=== PATIENT | male | born 1970 | race Caucasian/White ===

== ENCOUNTER 2020-08-05 17:09 | Emergency (ER) | payer BC, SELFPAY ==
--- NOTE | 2020-08-05 17:05 | ECG_ITS ---
APPROVED REPORT Exam: Resting ECG HR:95 bpm ECG Measurements Heart Rate 95 AXES MO 154 P 56 QRSd 78 QRS 31 QT 334 T 47 QTc 419 <Conclusion> Normal sinus rhythm Possible Left atrial enlargement RSR' or QR pattern in V1 suggests right ventricular conduction delay Borderline ECG Electronically signed by : Jose Hickman, 08/09/2020 15:05:41
[2020-08-05 17:11] VITALS: BP 158/91; PULSE 98; RESP 17; TEMP 36.6; O2SAT 100; BMI 30.8
--- NOTE | 2020-08-05 17:15 | XR_ITS ---
PROCEDURE: XR CHEST 2V CLINICAL HISTORY: chest pain COMPARISON: No exams were available for comparison FINDINGS: The cardiomediastinal silhouette and pulmonary vascularity are within normal limits. Coronary artery stent present. There are mild atelectatic changes in the lower lobes. No acute bony abnormalities. IMPRESSION: Mild bilateral lower lobe atelectatic changes otherwise negative Dictated by: Ralph Palmer MD 08/05/2020 18:17 Ralph Palmer MD in [place] 08/05/2020 18:17
[2020-08-05 17:17] VITALS: BP 158/91; PULSE 98; RESP 24; O2SAT 98
[2020-08-05 17:33] LABS: Chloride 100 mmol/L (98-107)
[2020-08-05 17:34] LABS: Potassium 4.4 mmoL/L (3.5-5.1); Sodium 140 mmol/L (136-145)
[2020-08-05 17:35] LABS: Basophils # 0.1 K/mm3 (0-0.2); Basophils % 0.7 % (0.1-2.0); Eosinophils # 0.2 K/mm3 (0.0-0.4); Eosinophils % 1.7 % (0.1-12.0); Hematocrit 45.8 % (42.0-52.0); Hemoglobin 15.6 g/dL (14.1-18.0); Lymphocytes # 1.6 K/mm3 (0.7-4.5); Lymphocytes % 17.6 % (10-50); Mean Corpuscular HGB Conc 34.1 g/dL (31.8-35.4); Mean Corpuscular Hemoglobin 27.2 pg (27.0-31.2); Mean Corpuscular Volume 79.8 fl (80-94); Monocytes # 0.6 K/mm3 (0.1-1.0); Neutrophils # 6.6 K/mm3 (1.8-7.8); Platelet Count 284 K/mm3 (142-424); Red Blood Count 5.75 M/mm3 (4.60-6.20); Red Cell Distribution Width 13.7 % (11.5-17.5)
[2020-08-05 17:36] LABS: Alanine Aminotransferase 51 U/L (12-78); Aspartate Amino Transferase 44 U/L (17-59); Blood Urea Nitrogen 23 mg/dl (9-20); Creatinine Clearance Estimated 115 mL/min (50-200); Estimated Glomerular Filt Rate 64 ml/min (>60); GFR (African American) 78 ML/MIN (>60)
[2020-08-05 17:37] LABS: Albumin Level 4.9 g/dl (3.5-5.0); Albumin/Globulin Ratio 1.5 (1.1-1.8); Alkaline Phosphatase 119 U/L (38-126); Anion Gap 17.4 mEq/L (5-15); Bilirubin,Total 0.6 mg/dl (0.2-1.3); Calcium 10.4 mg/dl (8.4-10.2); Carbon Dioxide 27 mmol/L (22.0-30.0); Globulin 3.3 g/dL (1.3-3.2); Glucose 231 mg/dl (74-100); Total Protein,Serum 8.2 g/dl (6.3-8.2)
[2020-08-05 17:38] LABS: Lactic Acid 1.8 mmol/L (0.7-2.1)
[2020-08-05 17:50] LABS: Troponin I < 0.01 ng/ml (0.00-0.034)
[2020-08-05 18:12] VITALS: BP 127/92; PULSE 63; O2SAT 93
[2020-08-05 19:07] VITALS: BP 145/95; PULSE 91; RESP 20; O2SAT 96
[2020-08-05 19:32] LABS: Troponin I < 0.01 ng/ml (0.00-0.034)
--- NOTE | 2020-08-05 20:06 | HMH.EDCP ---
ED Disposition Clinical Impression: Upper respiratory infection Qualifiers: URI type: unspecified viral URI Qualified Code(s): J06.9 - Acute upper respiratory infection, unspecified Disposition: Home, Self-Care Condition on Discharge: Good Additional Instructions: You were seen on an emergency basis. It is very important that you follow up with your primary care provider and/or specialist as we discussed within 2 days. All labs and imaging were obtained and interpreted here to rule out life threatening emergencies, but your final results should be reviewed by your primary doctor at your follow up appointment. Please return to the emergency department if any of your symptoms worsen, or if they do not improve as we discussed. Referrals: Quyen Vincent [Primary Care Provider] - - Critical Care Critical Care Time: No Attestation: On 08/05/20, the high probability of a clinically significant, sudden or life threatening deterioration of the following system(s) required my full and direct attention, intervention and personal management. The time I documented below is in addition to time spent performing reported procedures but includes the following listed in this critical care notation. Medical Decision Making - Medical Records Medical records reviewed: Yes: I reviewed the patient's medical records. - Perico Inquiry Pt receiving controlled substance: No Vital Signs: 08/05/20 17:11 08/05/20 17:17 08/05/20 18:12 Temperature 97.9 F Temperature Source Oral Pulse Rate [Right Radial] 98 H 98 H 63 Respiratory Rate 17 24 Blood Pressure [Right Arm] 158/91 H 158/91 H 127/92 H Blood Pressure Mean [Right Arm] 113 113 103 Blood Pressure Source [Right Arm] Automatic Cuff Blood Pressure Position [Right Arm] Sitting Sitting 02 Sat by Pulse Oximetry 100 98 93 L Oxygen Delivery Method Room Air Room Air 08/05/20 19:07 Temperature Temperature Source Pulse Rate [Right Radial] 91 H Respiratory Rate 20 Blood Pressure [Right Arm] 145/95 H Blood Pressure Mean [Right Arm] 111 Blood Pressure Source [Right Arm] Automatic Cuff Blood Pressure Position [Right Arm] Sitting 02 Sat by Pulse Oximetry 96 Oxygen Delivery Method - Lab Data Lab Results 08/05/20 17:20: WBC 9.0, RBC 5.75, Hgb 15.6, Hct 45.8, MCV 79.8 L, MCH 27.2, MCHC 34.1, RDW 13.7, Plt Count 284, MPV 8.0, Neut % (Auto) 73.0, Lymph % (Auto) 17.6, Chase % (Auto) 7.0, Eos % (Auto) 1.7, Baso % (Auto) 0.7, Neut # (Auto) 6.6, Lymph # (Auto) 1.6, Chase # (Auto) 0.6, Eos # (Auto) 0.2, Baso # (Auto) 0.1 08/05/20 17:20: Sodium 140, Potassium 4.4, Chloride 100, Carbon Dioxide 27, Anion Gap 17.4 H, BUN 23 H, Creatinine 1.20, Estimated Creat Clear 115, Estimated GFR 64, Est GFR ( Amer) 78, Glucose 231 H, Calcium 10.4 H, Total Bilirubin 0.6, AST 44, ALT 51, Alkaline Phosphatase 119, Troponin I < 0.01, Total Protein 8.2, Albumin 4.9, Globulin 3.3 H, Albumin/Globulin Ratio 1.5 08/05/20 17:20: Lactate 1.8 08/05/20 19:05: Troponin I < 0.01 Result diagrams: 08/05/20 17:20 08/05/20 17:20 Orders (Tests/Meds): ED MEDICATIONS Discontinued Medications Generic Name Dose Route Start Last Admin Trade Name Shaniqua PRN Reason Stop Dose Admin Aspirin 324 mg 08/05/20 17:15 08/05/20 17:18 Aspirin 81mg Chewable Tablet PO 08/05/20 17:16 324 mg ONCE ONE Administration ORDERS Category Date Time Status Troponin I Q3H Lab 08/05/20 23:15 Ordered Blood Culture Stat Micro 08/05/20 17:20 Received Medical Decision Narrative: 49-year-old male presenting with chest pain, cough, sore throat, shortness of breath. Nontoxic, afebrile, hemodynamically stable, oxygenating well on room air. Chest x-ray negative for acute disease. EKG nonischemic without arrhythmia. Troponins are undetectable. CBC, CMP are nonactionable. D-dimer is negative. This is likely a upper respiratory infection and not cardiopulmonary chest pain. Was given symptomatic care instructсергей
[2020-08-05 20:16] VITALS: BP 139/85; PULSE 87; RESP 18; TEMP 36.6; O2SAT 98
== END 2020-08-05 20:22 | disposition home or self-care (01) ==
PROVIDERS: Emergency Provider Physician Assistant; PCP Family Medicine
DX: J06.9 Acute upper respiratory infection, unspecified (principal); Z88.0 Allergy status to penicillin
CPT/HCPCS: 71046; 80053; 83605; 84484; 85025; 87040; 93005; 99284

== ENCOUNTER 2023-02-18 14:55 | Emergency (ER) | payer OTHER, SELFPAY ==
[2023-02-18 15:15] VITALS: BP 128/77; PULSE 82; RESP 20; TEMP 36.8; O2SAT 97; BMI 30.8
[2023-02-18 15:41] LABS: UTC Strep Screen (Rapid) Positive (Negative)
--- NOTE | 2023-02-18 15:44 | EXP.UTC ---
Discharge Plan Disposition Patient Disposition: Home, Self-Care Condition: Good Prescriptions Prescriptions: New cefdinir 300 mg capsule 300 mg PO BID Qty: 20 0RF No Action sertraline 100 mg tablet 100 mg PO DAILY Label Comments: TAKE 2 TABLETS BY MOUTH EVERY DAY insulin aspart U-100 [Novolog U-100 Insulin aspart] 100 unit/mL solution See Rx Instructions .ROUTE .COMPLEX Label Comments: USE UP TO 125 UNITS DAILY VIA INSULIN PUMP DIRECTED Rx Instructions: USE UP TO 125 UNITS DAILY VIA INSULIN PUMP DIRECTED gabapentin 300 mg capsule 900 mg PO DAILY Label Comments: TAKE 3 CAPSULES BY MOUTH EVERY DAY AT BEDTIME metformin 500 mg tablet extended release 24 hr 500 mg PO BID Label Comments: TAKE 1 TABLET BY MOUTH TWICE A DAY WITH MEALS metoprolol tartrate 25 mg tablet 25 mg PO BID Label Comments: TAKE 1 TABLET BY MOUTH EVERY 12 HOURS Jardiance 10 mg tablet 10 mg PO DAILY Label Comments: TAKE 1 TABLET BY MOUTH DAILY. DOSE DECREASE Ozempic 0.25 mg or 0.5 mg(2 mg/1.5 mL) pen injector 0.25 mg SQ WEEKLY Label Comments: INJECT 0.25MG SUBCUTANEOUSLY ONCE WEEKLY FOR 4 WEEKS, THEN INCREASE TO 0.5MG WEEKLY Referrals Follow up/Referrals: Quyen Vincent [Primary Care Provider] - See instructions Activity Restrictions/Add. Instructions Additional Instructions/Restrictions: Drink plenty of fluids. Take tylenol or ibuprofen for pain or fever. Take the medications as directed. Follow up with your regular doctor. GO TO THE ER FOR ANY WORSENING SYMPTOMS Clinical Impressions Clinical Impression: Strep throat Instructions Patient Instructions: Strep Throat, DI for Strep Throat Discharge ED Provider: Olaf Alejandro [facility] General Stated complaint: congested,sore throat Mode of Arrival: Ambulatory Source of Information: Patient Limitations: No Limitations Time Seen by Provider: 02/18/23 15:41 Description of Symptoms (Recalled from Triage Doc. by RN): sore throat, congestion HEENT Symptoms (Recalled from RN notes): Yes Resp Symptoms (Recalled from RN notes): No Skin Symptoms (Recalled from RN notes): No MS Symptoms (Recalled from RN notes): No Functional Status (Recalled from RN notes): n/a History of Present Illness Provider Complaint: He c/o sore throat for the past 2 days. He has been exposed to strep throat by his son currently having it. Related Data Home Medications Medication Instructions Recorded Confirmed empagliflozin 10 mg tablet 10 mg PO DAILY . 02/18/23 02/18/23 (Jardiance) gabapentin 300 mg capsule 900 mg PO DAILY . 02/18/23 02/18/23 insulin aspart U-100 100 unit/mL See Rx Instructions .Route 02/18/23 02/18/23 subcutaneous solution (Novolog .COMPLEX . U-100 Insulin aspart) metformin 500 mg tablet,extended 500 mg PO BID . 02/18/23 02/18/23 release 24 hr metoprolol tartrate 25 mg tablet 25 mg PO BID . 02/18/23 02/18/23 semaglutide 0.25 mg or 0.5 mg (2 0.25 mg SQ WEEKLY . 02/18/23 02/18/23 mg/1.5 mL) subcutaneous pen injector (Ozempic) sertraline 100 mg tablet 100 mg PO DAILY , 02/18/23 02/18/23 Previous Rx's Medication Instructions Recorded cefdinir 300 mg capsule 300 mg PO BID #20 caps 02/18/23 Allergies Allergy/AdvReac Type Severity Reaction Status Date / Time From Penicillin V Potassium Allergy Unknown Uncoded 02/18/23 15:22 Penicillin Allergy Unknown Uncoded 02/18/23 15:22 Worker's Comp Is this a Worker's Comp case?: No [facility] Disclaimer: The information contained in this section may have been updated after the patient was seen, as this information can be updated by other users. Social History Smoking Status: Never smoker alcohol intake: never current occupational status: unemployed Travel in the last 8 weeks: None ROS Obtained: Yes All systems reviewed & no additional complaint
[2023-02-18 15:57] VITALS: BP 128/77; PULSE 82; RESP 20; TEMP 36.8; O2SAT 97
== END 2023-02-18 15:56 | disposition home or self-care (01) ==
PROVIDERS: Emergency Provider Nurse Practitioner Family; PCP Family Medicine
DX: J02.0 Streptococcal pharyngitis (principal); R50.9 Fever, unspecified; R09.81 Nasal congestion; E11.9 Type 2 diabetes mellitus without complications
CPT/HCPCS: 87880; 99212; 99214; G0463

== ENCOUNTER → 2023-06-19 07:06 | Outpatient (CLI) | payer OTHER, BC, SELFPAY ==
--- NOTE | 2023-06-19 | CA_ITS ---
APPROVED REPORT Exam: Pharmacologic Technologist: Marlyn Alonzo, Ht: 6 ft 2 in Wt: 231 lbs BSA: 2.31 m2 HR: 63 bpm BP: 130/80 mmHg Rhythm: SR Medical History Medical History: HTN, Hyperlipidemia, Diabetes, Smoking Medications: Aspirin,,,,, Gabapentin,,,,, BisOPROLOL Fumarate,,,,, Sertraline,,,,, EMpagliflozin,,,,, SeMaglutide,,,,, INSULIN ASPART,,,,, MetoFORMIN ER,,,,, Allergies: PENICILLIN Cardiac Risk Factors: HTN, Hyperlipidemia, Diabetes , FHX of CAD, Smoking Stress Test Details Test: LEXISCAN HR Resting HR: 63 bpm Max Heart Rate (APMHR): 168 bpm Max HR Achieved: 82 bpm Target HR (85% APMHR): 143 bpm % of APMHR: 49 Recovery HR: 77 bpm BP Resting BP: 130/88 mmHg Max BP: 135/81 mmHg Recovery BP: 135.0/81.0 mmHg ECG Resting ECG: NSR, Non-specific T-wave changes in inferior leads Stress ECG: No change Arrhythmia: None Recovery ECG: No change Recovery Arrhythmia: None Clinical Exercise duration: 04:00 min Highest Stage Achieved: Exercise capacity: n/a METs Stress ECG Conclusion PT HAD A HEADACHE NO CP NO SIGNIFICANT ST CHANGES CONCLUSION NON-DIAGNOSTIC ECG STRESS TEST DUE TO BASELINE ABNORMALITIES MYOVIEW IMAGES ARE REPORTED SEPARATELY Test Summary REST 02:03 . . 63 . 130/ 88 . . Stage 1 . . . . . . . Myoview Injected Stage 1 01:00 . . 73 . . . . Stage 2 01:00 . . 81 . 122/ 74 . . Stage 3 01:00 . . 80 . 123/ 74 . . Stage 4 01:00 . . 79 . 119/ 79 . Stop exercise at 04:00 RECOVERY 01:00 . . 79 . 123/ 78 . . RECOVERY 01:57 . . 78 . 135/ 81 . . Electronically signed by : Tanika Quintanilla, 06/19/2023 11:53:33
--- NOTE | 2023-06-19 07:06 | NM_ITS ---
APPROVED REPORT Exam: Nuclear Stress Test Indication: chest pain..soa..fatigue Patient Location: Outpatient Stress Tech: Marlyn Alonzo NM Tech:Melissa DanielsonDESIRAE RT(R)(N) Ht: 6 ft 2 in Wt: 230 lbs HR: 63 bpm BP: 130/88 mmHg BSA: 2.31 m2 TID: 1.20 BMI: 29.5 History: chest pain..soa..fatigue Procedure: Patient received 0.4 mg of intravenous Lexiscan, resting heart rate 63 bpm, resting blood pressure 130/88 mmHg, with Lexiscan maximum heart rate achieved was 82 bpm which is 85 % of the maximum predicted heart rate and blood pressure was 135/81 mmHg. With Lexiscan, patient denied any complaint of chest pain. Cardiac Stress and Resting SPECT Images: Cardiac Stress and Resting SPECT images were obtained using technetium 99m Myoview 30.7 mCi stress and 10.40 mCi at rest. Resting and stress imaging in both supine and prone positions demonstrate a medium-sized, mild, fixed perfusion defect in the mid to distal anterior LV wall. There is borderline increase in transient ischemic dilatation ratio (TID 1.20), suggestive of possible balanced ischemia or multivessel disease. Gated imaging demonstrates a normal global and regional LV systolic function. LVEF is calculated at 55%. Conclusion: Medium-sized, mild, fixed perfusion defect in the mid to distal anterior LV wall. No evidence of reversible ischemia. Borderline increase in transient ischemic dilatation ratio (TID 1.20), suggestive of possible balanced ischemia or multivessel disease. Gated imaging demonstrates a normal global and regional LV systolic function. LVEF is calculated at 55%. Electronically signed by : Tanika Quintanilla, 06/19/2023 22:17:41
== END ==
LOC: RAD 07:06
PROVIDERS: PCP Family Medicine; Visit Provider Nurse Practitioner Family
DX: R06.00 Dyspnea, unspecified (principal); R07.89 Other chest pain; R42 Dizziness and giddiness; I25.10 Atherosclerotic heart disease of native coronary artery without angina pectoris; I10 Essential (primary) hypertension; E78.5 Hyperlipidemia, unspecified
CPT/HCPCS: 78452; 93017; A9502; J2785

== ENCOUNTER 2023-07-07 07:30 | Day surgery (SDC) | payer OTHER, SELFPAY ==
[2023-07-07] VITALS (13 sets, daily range): BP systolic 114–165; BP diastolic 70–102; PULSE 67–73; RESP 16–106; TEMP 36.9; O2SAT 90–99; BMI 29.9
--- NOTE | 2023-07-07 | IR_ITS ---
APPROVED REPORT Patient Location: Outpatient [facility] Coordinator: DESIRAE Garcia RT (R) PROCEDURES Left heart catheterization Left ventriculogram Selective coronary angiogram Intravascular ultrasound of the proximal LAD Intravascular lithotripsy to the proximal LAD Drug-eluting stent deployment to the proximal LAD INDICATION Anterior ischemia on abnormal Myoview, Coronary artery disease, MLA 3.9 mm??? in the proximal LAD, Proximal calcific LAD disease Informed consent was obtained prior to the procedure. COMPLICATIONS NONE Estimated Blood Loss: LESS THAN 10 ML TECHNIQUE One percent lidocaine used to anesthetize the right anterior aspect of the wrist. The right radial artery was accessed via the Seldinger technique. A 6 Georgian sheath was placed in the right radial artery. 2.5 mg of Verapamil, 800 mcg of nitroglycerin, 1mg Lidocaine and 5000 U Heparin were given through the arterial sheath. The papa catheter was also used to perform selective coronary angiography. At the end the diagnostic angiogram therapeutic heparin was administered giving a therapeutic ACT and the guide catheter was left in the left main artery followed by Choice PT extra-support wire. Intravascular ultrasound probe was advanced which demonstrated an undersized proximal LAD stent with an MLA of 3.9 mm???. At this point a 3.5 x 12 mm shockwave balloon was deployed at 4, 6, 8 booker for a total of 80 pulsations. Following this a 3.5 x 22 mm Josemanuel frontier stent was deployed at 18 booker reducing the calcified severe stenosis to 0%. MICHEL-3 flow was present before and after the procedure. There was loss of a small first diagonal artery. Intravascular ultrasound probe was then readvanced which demonstrated excellent stent apposition and stent expansion with excellent transition into the previously placed stent. After achieving excellent angiographic results the apparatus was removed the sheath was removed and hemostasis was achieved using TR banding patient was transferred to the postop putting in stable ANGIOGRAPHIC RESULTS The left main artery Normal The left anterior descending artery Has a stent in the proximal segment which is patent but slightly hazy most notably in the midportion. The circumflex artery Is a non-dominant vessel and has mid vessel 30% stenosis The right coronary artery Is a dominant vessel and has proximal and mid vessel 30% stenosis with distal 30 to 40% stenoses The DUFF ventriculogram reveals Not performed The left ventricular end-diastolic pressure Not measured IMPRESSION Severe calcific proximal LAD disease as described above Successful intravascular lithotripsy reducing the stenosis and allowing drug-eluting stent deployment which significantly improved inflow and proximal LAD MLA reducing the stenosis to 0% Loss of a small first diagonal artery which is likely clinically insignificant Mild to moderate disease in a proximal to mid nondominant yet still large circumflex artery Mild to moderate disease in the mid to distal right coronary as described above PLAN 1. Dual antiplatelet therapy 2. LDL less than 55 to be achieved with high intensity statin 3. Avoidance of tobacco products 4. Risk factor modification 5. Cardiac rehabilitation Electronically signed by : Cesario Ortega MD 07/07/2023 11:15:52
[2023-07-07 08:26] LABS: Basophils # 0.1 K/mm3 (0-0.2); Basophils % 0.7 % (0.1-2.0); Eosinophils # 0.2 K/mm3 (0.0-0.4); Eosinophils % 2.7 % (0.1-12.0); Hematocrit 51.4 % (42.0-52.0); Hemoglobin 16.4 g/dL (14.1-18.0); Lymphocytes # 1.5 K/mm3 (0.7-4.5); Lymphocytes % 16.7 % (10-50); Mean Corpuscular HGB Conc 31.8 g/dL (31.8-35.4); Mean Corpuscular Hemoglobin 27.3 pg (27.0-31.2); Mean Corpuscular Volume 85.9 fl (80-94); Mean Platelet Volume 7.9 fl (7.4-10.4); Monocytes # 0.5 K/mm3 (0.1-1.0); Monocytes % 5.2 % (1.7-9.3); Neutrophils # 6.5 K/mm3 (1.8-7.8); Neutrophils % 74.7 % (37.0-80.0); Platelet Count 213 K/mm3 (142-424); Red Blood Count 5.98 M/mm3 (4.60-6.20); White Blood Count 8.7 K/mm3 (4.8-10.8)
[2023-07-07 08:36] LABS: Chloride 98 mmol/L (98-107); Potassium 4.3 mmoL/L (3.5-5.1); Sodium 140 mmol/L (136-145)
[2023-07-07 08:39] LABS: Blood Urea Nitrogen 25 mg/dl (9-20); Creatinine Clearance Estimated 129 mL/min (50-200); Estimated Glomerular Filt Rate 78 ml/min (>60); GFR (African American) 95 ML/MIN (>60)
[2023-07-07 08:40] LABS: Anion Gap 15.3 mEq/L (5-15); Calcium 9.8 mg/dl (8.4-10.2); Carbon Dioxide 31 mmol/L (22.0-30.0); Glucose 121 mg/dl (74-100)
[2023-07-07 13:32] LABS: CATHL Activated Clotting Time > 400 SEC (74-125)
--- NOTE | 2023-07-07 14:17 | HMH.PHACL ---
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 -Jose Gonzalez, PharmD
== END 2023-07-07 15:01 | disposition home or self-care (01) ==
PROVIDERS: PCP Family Medicine; Visit Provider Internal Medicine
DX: R94.39 Abnormal result of other cardiovascular function study (principal); I77.1 Stricture of artery; I25.118 Atherosclerotic heart disease of native coronary artery with other forms of angina pectoris; I10 Essential (primary) hypertension; R42 Dizziness and giddiness; E78.5 Hyperlipidemia, unspecified; E11.9 Type 2 diabetes mellitus without complications; Z79.4 Long term (current) use of insulin; Z79.899 Other long term (current) drug therapy
CPT/HCPCS: 80048; 85025; 85347; 92928; 92978; 93458; 93978; 99152; 99153; C1725; C1761; C1769; C1876; C9600; J1644; Q9967

== ENCOUNTER 2023-08-28 04:32 | Observation (INO) | payer OTHER, SELFPAY ==
[2023-08-28] VITALS (13 sets, daily range): BP systolic 64–126; BP diastolic 44–74; PULSE 69–82; RESP 12–18; TEMP 36.6–37.2; O2SAT 93–96; BMI 29.5; BMI 28.2
--- NOTE | 2023-08-28 04:47 | ECG_ITS ---
APPROVED REPORT Exam: Resting ECG HR:77 bpm ECG Measurements Heart Rate 77 AXES KS 169 P 53 QRSd 91 QRS -22 QT 395 T 59 QTc 426 Conclusion SINUS RHYTHM INDETERMINATE AXIS BORDERLINE ECG UNCONFIRMED REPORT Electronically signed by : Jose Hickman MD 08/28/2023 17:08:40
--- NOTE | 2023-08-28 04:50 | PC.NURSE ---
pt complains of positional dizziness, reports being to weak to stand.
[2023-08-28 04:53] LABS: POC Glucose,Bedside 92 (70-110)
--- NOTE | 2023-08-28 05:03 | CT_ITS ---
PROCEDURE INFORMATION: Exam: CTA Head With Contrast, Arteriography Exam date and time: 08/28/2023 6:00 AM Age: 52 years old Clinical indication: Injury or trauma; Blunt trauma and concussion; Without loss of consciousness; Patient HX: Multiple syncopal falls, headaches, PT on thinners; Additional info: Multiple syncopal falls, headache, thinners TECHNIQUE: Imaging protocol: Computed tomographic angiography of the head with contrast. Exam focused on the arteries. 3D rendering (Not supervised by radiologist): MIP and/or 3D reconstructed images were created by the technologist. Radiation optimization: All CT scans at this facility use at least one of these dose optimization techniques: automated exposure control; mA and/or kV adjustment per patient size (includes targeted exams where dose is matched to clinical indication); or iterative reconstruction. Contrast material: ISOVUE 370; Contrast volume: 100 ml; Contrast route: INTRAVENOUS (IV); REPORTING DATA: Count of CT and Cardiac NM exams in prior 12 months: This patient has received 0 known CTs and 0 known cardiac nuclear medicine studies in the 12 months prior to the current study. COMPARISON: CT HEAD/BRAIN WO CON 08/28/2023 5:48 AM FINDINGS: ANTERIOR CIRCULATION: Right internal carotid artery: Intracranial segment is patent with no significant stenosis. No aneurysm. Right middle cerebral artery: No occlusion or significant stenosis. No aneurysm. Right anterior cerebral artery: No occlusion or significant stenosis. No aneurysm. Left internal carotid artery: Intracranial segment is patent with no significant stenosis. No aneurysm. Left middle cerebral artery: No occlusion or significant stenosis. No aneurysm. Left anterior cerebral artery: No occlusion or significant stenosis. No aneurysm. POSTERIOR CIRCULATION: Right vertebral artery: No occlusion or significant stenosis. No aneurysm. Left vertebral artery: No occlusion or significant stenosis. No aneurysm. Basilar artery: No occlusion or significant stenosis. No aneurysm. Right posterior cerebral artery: No occlusion or significant stenosis. No aneurysm. Left posterior cerebral artery: No occlusion or significant stenosis. No aneurysm. Brain: No definite mass, mass effect, or midline shift. Cerebral ventricles: No ventriculomegaly. Bones/joints: Unremarkable. No acute fracture. Soft tissues: Unremarkable. IMPRESSION: No large vessel stenosis or occlusion.
--- NOTE | 2023-08-28 05:03 | CT_ITS ---
PROCEDURE INFORMATION: Exam: CTA Neck With Contrast Exam date and time: 08/28/2023 6:00 AM Age: 52 years old Clinical indication: Injury or trauma; Blunt trauma and sprain or strain; Head and neck; Patient HX: Multiple syncopal falls, PT on thinners; Additional info: Multiple syncopal falls, neck pain TECHNIQUE: Imaging protocol: Computed tomographic angiography of the neck with contrast. 3D rendering (Not supervised by radiologist): MIP and/or 3D reconstructed images were created by the technologist. Radiation optimization: All CT scans at this facility use at least one of these dose optimization techniques: automated exposure control; mA and/or kV adjustment per patient size (includes targeted exams where dose is matched to clinical indication); or iterative reconstruction. Contrast material: ISOVUE 370; Contrast volume: 100 ml; Contrast route: INTRAVENOUS (IV); REPORTING DATA: Count of CT and Cardiac NM exams in prior 12 months: This patient has received 0 known CTs and 0 known cardiac nuclear medicine studies in the 12 months prior to the current study. COMPARISON: CT CERVICAL SPINE WO CON 08/28/2023 5:50 AM FINDINGS: There is mild plaque noted at the carotid bulbs causing less than 40% stenosis. Right common carotid artery: No stenosis. No dissection or occlusion. Right internal carotid artery: No stenosis of the extracranial segment. No dissection or occlusion. Right external carotid artery: No occlusion or stenosis of the origin. Left common carotid artery: No stenosis. No dissection or occlusion. Left internal carotid artery: No stenosis of the extracranial segment. No dissection or occlusion. Left external carotid artery: No occlusion or stenosis of the origin. Right vertebral artery: No stenosis. No dissection or occlusion. Left vertebral artery: No stenosis. No dissection or occlusion. Soft tissues: Normal. No significant soft tissue swelling. Bones/joints: No acute fracture. IMPRESSION: Mild atheromatous plaque at the carotid bulbs. Less than 40% stenosis. REFERENCES: NASCET CRITERIA. The degree of stenosis in the cervical segment of the internal carotid artery is based on NASCET criteria. Normal is no stenosis. Mild is less than 50% stenosis. Moderate is 50-69% stenosis. Severe is 70% to 99% stenosis. Total occlusion is no detectable patent lumen.
--- NOTE | 2023-08-28 05:04 | CT_ITS ---
PROCEDURE INFORMATION: Exam: CTA Abdomen and Pelvis With Contrast Exam date and time: 08/28/2023 6:04 AM Age: 52 years old Clinical indication: Injury or trauma; Sprain or strain; Patient HX: Fall, flank hematoma, PT on thinners; Additional info: Fall, blood thinner, flank hematoma TECHNIQUE: Imaging protocol: Computed tomographic angiography of the abdomen and pelvis with contrast. Exam focused on the arteries. 3D rendering (Not supervised by radiologist): MIP and/or 3D reconstructed images were created by the technologist. Radiation optimization: All CT scans at this facility use at least one of these dose optimization techniques: automated exposure control; mA and/or kV adjustment per patient size (includes targeted exams where dose is matched to clinical indication); or iterative reconstruction. Contrast material: ISOVUE 370; Contrast volume: 100 ml; Contrast route: INTRAVENOUS (IV); REPORTING DATA: Count of CT and Cardiac NM exams in prior 12 months: This patient has received 0 known CTs and 0 known cardiac nuclear medicine studies in the 12 months prior to the current study. COMPARISON: CT LUMBAR SPINE WO CON 08/28/2023 5:57 AM FINDINGS: Aorta: No aortic aneurysm. No aortic dissection. Celiac trunk and mesenteric arteries: No occlusion or significant stenosis. Renal arteries: No occlusion or significant stenosis. Right iliac arteries: No occlusion or significant stenosis. Left iliac arteries: No occlusion or significant stenosis. Liver: No mass. Gallbladder and bile ducts: Surgical clips are noted in the gallbladder fossa compatible with a prior cholecystectomy. Pancreas: Unremarkable. No mass. No ductal dilation. Spleen: The spleen is enlarged, measuring 13.8 x 4.5 x 15.0 cm. Adrenal glands: Unremarkable. No mass. Kidneys and ureters: The kidneys enhance symmetrically and there is no hydronephrosis. Stomach and bowel: Colonic diverticulosis is noted. Appendix: No evidence of appendicitis. Intraperitoneal space: Unremarkable. No free air. No significant fluid collection. Lymph nodes: Unremarkable. No enlarged lymph nodes. Urinary bladder: Unremarkable. No mass. Reproductive: Unremarkable as visualized. Bones/joints: Degenerative changes are noted in the bones. Soft tissues: There is infiltration of the subcutaneous tissues and fat in the posterior left lower chest/upper abdomen. IMPRESSION: No evidence for aortic aneurysm or dissection. No evidence for active arterial extravasation. Infiltration of the soft tissue in the left lower back. Colonic diverticulosis. Splenomegaly.
--- NOTE | 2023-08-28 05:04 | CT_ITS ---
PROCEDURE INFORMATION: Exam: CTA Chest With Contrast Exam date and time: 08/28/2023 6:04 AM Age: 52 years old Clinical indication: Injury or trauma; Blunt trauma (contusions or hematomas); Patient HX: Fall, PT on thinners, flank hematoma, left sided chest pain; Additional info: Fall on thinner, flank hematoma, left chest pain TECHNIQUE: Imaging protocol: Computed tomographic angiography of the chest with contrast. Exam focused on the arteries. 3D rendering (Not supervised by radiologist): MIP and/or 3D reconstructed images were created by the technologist. Radiation optimization: All CT scans at this facility use at least one of these dose optimization techniques: automated exposure control; mA and/or kV adjustment per patient size (includes targeted exams where dose is matched to clinical indication); or iterative reconstruction. Contrast material: ISOVUE 370; Contrast volume: 100 ml; Contrast route: INTRAVENOUS (IV); REPORTING DATA: Count of CT and Cardiac NM exams in prior 12 months: This patient has received 0 known CTs and 0 known cardiac nuclear medicine studies in the 12 months prior to the current study. COMPARISON: CR XR CHEST 2V 08/05/2020 5:44 PM FINDINGS: Pulmonary arteries: There is no central or lobar filling defect identified in the pulmonary arteries. Segmental and subsegmental branches are suboptimally assessed. Aorta: Unremarkable. No aortic aneurysm. No aortic dissection. Lungs: Streaky atelectasis is noted in the lower lobes. A 4 mm calcified pleural-based nodule is noted in the anterior aspect of the superior segment of the left lower lobe along the major fissure. Pleural spaces: Unremarkable. No pneumothorax. No pleural effusion. Heart: Unremarkable. No cardiomegaly. No pericardial effusion. Coronary arteries: Coronary artery calcification is present. Lymph nodes: Calcified left hilar lymphadenopathy is noted. . No enlarged lymph nodes. Bones/joints: Unremarkable. No acute fracture. Soft tissues: Unremarkable. Other findings: The study is somewhat limited by motion artifact. IMPRESSION: Motion degraded study. No central pulmonary embolism. No evidence for aortic dissection or aneurysm. Granulomatous disease in the chest.
--- NOTE | 2023-08-28 05:05 | CT_ITS ---
PROCEDURE INFORMATION: Exam: CT Head Without Contrast Exam date and time: 08/28/2023 5:48 AM Age: 52 years old Clinical indication: Injury or trauma; Blunt trauma (contusions or hematomas) and concussion/head injury; Without loss of consciousness; Patient HX: Multiple syncopal falls, headaches, PT on thinners; Additional info: Multiple syncopal falls, headache, thinners TECHNIQUE: Imaging protocol: Computed tomography of the head without contrast. Radiation optimization: All CT scans at this facility use at least one of these dose optimization techniques: automated exposure control; mA and/or kV adjustment per patient size (includes targeted exams where dose is matched to clinical indication); or iterative reconstruction. REPORTING DATA: Count of CT and Cardiac NM exams in prior 12 months: This patient has received 0 known CTs and 0 known cardiac nuclear medicine studies in the 12 months prior to the current study. COMPARISON: No relevant prior studies available. FINDINGS: Brain: No acute post-traumatic brain injury. Symmetric caliber of the cortical sulci. No acute cortical infarct, mass effect, or intracranial hemorrhage. Cerebral ventricles: Normal configuration of the ventricles. Paranasal sinuses: No sinus fluid. Low-grade ethmoid sinus mucoperiosteal disease. Mastoid air cells: No mastoid effusion. Bones/joints: No acute calvarial injury. Soft tissues: No significant scalp hematoma. IMPRESSION: No acute post-traumatic brain injury.
--- NOTE | 2023-08-28 05:05 | CT_ITS ---
PROCEDURE INFORMATION: Exam: CT Lumbar Spine Without Contrast Exam date and time: 08/28/2023 5:57 AM Age: 52 years old Clinical indication: Injury or trauma; Sprain or strain, lumbar ligaments; Patient HX: Fall, pain TECHNIQUE: Imaging protocol: Computed tomography of the lumbar spine without contrast. Radiation optimization: All CT scans at this facility use at least one of these dose optimization techniques: automated exposure control; mA and/or kV adjustment per patient size (includes targeted exams where dose is matched to clinical indication); or iterative reconstruction. REPORTING DATA: Count of CT and Cardiac NM exams in prior 12 months: This patient has received 0 known CTs and 0 known cardiac nuclear medicine studies in the 12 months prior to the current study. COMPARISON: CT THORACIC SPINE WO CON 08/28/2023 5:54 AM FINDINGS: Bones/joints: There is an 11 degree levoconvex curvature of the lumbar spine centered at L3. Vertebral body heights and mineralization are within normal limits. There is lumbar spondylosis noted worse at L4-L5 with disc bulging, ligamentous thickening and facet arthropathy. At L1-L2 there is disc bulging and facet arthropathy but no significant canal or foraminal narrowing. At L2-L3 there is disc osteophyte with facet arthropathy and ligamentous thickening. There is mild canal and foraminal narrowing. At L3-L4 there is a broad-based disc bulge ligament thickening and facet arthropathy causing mild canal and foraminal narrowing. At L4-L5 there is broad-based disc bulge with ligamentous thickening and facet arthropathy causing moderate to severe canal and foraminal narrowing. At L5-S1 there is broad-based disc bulge with facet arthropathy. There is no impingement upon the tapering thecal sac. There is moderate neural foraminal narrowing. Soft tissues: Unremarkable. IMPRESSION: Lumbar spondylosis and levoscoliosis as described.
--- NOTE | 2023-08-28 05:05 | CT_ITS ---
PROCEDURE INFORMATION: Exam: CT Cervical Spine Without Contrast Exam date and time: 08/28/2023 5:50 AM Age: 52 years old Clinical indication: Injury or trauma; Sprain or strain, cervical ligaments; Patient HX: Fall, neck pain TECHNIQUE: Imaging protocol: Computed tomography of the cervical spine without contrast. Radiation optimization: All CT scans at this facility use at least one of these dose optimization techniques: automated exposure control; mA and/or kV adjustment per patient size (includes targeted exams where dose is matched to clinical indication); or iterative reconstruction. REPORTING DATA: Count of CT and Cardiac NM exams in prior 12 months: This patient has received 0 known CTs and 0 known cardiac nuclear medicine studies in the 12 months prior to the current study. COMPARISON: None FINDINGS: Bones/joints: No acute bony injury in the cervical spine. T1-T2 interspinous widening. Degenerative change and disc bulging. Lungs: Mild apical interstitial prominence and airspace disease. Soft tissues: Ligamentous and synovial calcification. IMPRESSION: 1. No acute bony injury in the cervical spine. 2. T1-T2 interspinous widening.
--- NOTE | 2023-08-28 05:05 | CT_ITS ---
PROCEDURE INFORMATION: Exam: CT Thoracic Spine Without Contrast Exam date and time: 08/28/2023 5:54 AM Age: 52 years old Clinical indication: Pain in thoracic spine; Patient HX: Fall, pain TECHNIQUE: Imaging protocol: Computed tomography of the thoracic spine without contrast. Radiation optimization: All CT scans at this facility use at least one of these dose optimization techniques: automated exposure control; mA and/or kV adjustment per patient size (includes targeted exams where dose is matched to clinical indication); or iterative reconstruction. REPORTING DATA: Count of CT and Cardiac NM exams in prior 12 months: This patient has received 0 known CTs and 0 known cardiac nuclear medicine studies in the 12 months prior to the current study. COMPARISON: CT CERVICAL SPINE WO CON 08/28/2023 5:50 AM FINDINGS: Bones/joints: No acute fracture. Normal alignment. No significant disc bulge or herniation. No severe spinal canal stenosis. No significant neural foraminal narrowing. Soft tissues: Unremarkable. IMPRESSION: Unremarkable CT Spine.
--- NOTE | 2023-08-28 05:08 | XR_ITS ---
PROCEDURE INFORMATION: Exam: XR Left Hip Exam date and time: 08/28/2023 6:24 AM Age: 52 years old Clinical indication: Injury or trauma; Sprain or strain; Patient HX: Fall, left hip pain; Additional info: Fall, hip pain TECHNIQUE: Imaging protocol: Radiologic exam of the left hip. Views: 2 or 3 views hip with pelvis when performed. COMPARISON: CT ANGIO ABDOMEN PELVIS 08/28/2023 6:04 AM FINDINGS: Bones/joints: Unremarkable. No acute fracture. Soft tissues: Unremarkable. IMPRESSION: No acute findings.
[2023-08-28 05:20] LABS: Chloride 96 mmol/L (98-107); Sodium 136 mmol/L (136-145)
[2023-08-28 05:22] LABS: Basophils % 0.8 % (0.1-2.0); Eosinophils % 0.5 % (0.1-12.0); Hematocrit 49.7 % (42.0-52.0); Hemoglobin 15.8 g/dL (14.1-18.0); Lymphocytes # 0.9 K/mm3 (0.7-4.5); Lymphocytes % 18.2 % (10-50); Mean Corpuscular HGB Conc 31.8 g/dL (31.8-35.4); Mean Corpuscular Hemoglobin 27.1 pg (27.0-31.2); Mean Corpuscular Volume 85.3 fl (80-94); Monocytes # 0.5 K/mm3 (0.1-1.0); Monocytes % 10.9 % (1.7-9.3); Neutrophils # 3.3 K/mm3 (1.8-7.8); Neutrophils % 69.6 % (37.0-80.0); Platelet Count 127 K/mm3 (142-424); Red Blood Count 5.82 M/mm3 (4.60-6.20); Red Cell Distribution Width 14.5 % (11.5-17.5); White Blood Count 4.8 K/mm3 (4.8-10.8)
[2023-08-28 05:23] LABS: Alanine Aminotransferase 58 U/L (12-78); Albumin/Globulin Ratio 1.5 (1.1-1.8); Alkaline Phosphatase 94 U/L (38-126); Aspartate Amino Transferase 85 U/L (17-59); Bilirubin,Total 0.3 mg/dl (0.2-1.3); Blood Urea Nitrogen 53 mg/dl (9-20); Calcium 8.4 mg/dl (8.4-10.2); Carbon Dioxide 30 mmol/L (22.0-30.0); Creatine Kinase 162 U/L (55-170); Creatinine Clearance Estimated 51 mL/min (50-200); Estimated Glomerular Filt Rate 27 ml/min (>60); GFR (African American) 33 ML/MIN (>60); Globulin 2.7 g/dL (1.3-3.2); Glucose 109 mg/dl (74-100); Total Protein,Serum 6.7 g/dl (6.3-8.2)
[2023-08-28 05:32] LABS: Magnesium 1.6 mg/dl (1.6-2.3)
[2023-08-28 05:36] LABS: Troponin I 0.03 ng/ml (0.00-0.034)
[2023-08-28 05:40] LABS: T4 (Thyroxine) 7.6 ug/dl (5.53-11.0)
--- NOTE | 2023-08-28 06:25 | PC.NURSE ---
speaking with hospitalist requesting admission.
--- NOTE | 2023-08-28 06:26 | HMH.EDGENADL ---
Discharge Plan Disposition Patient Disposition: Admitted Condition: Fair Chief Complaint: Weakness Prescriptions Prescriptions: No Action atorvastatin 40 mg tablet 40 mg PO HS losartan 25 mg tablet 25 mg PO DAILY sertraline 100 mg tablet 100 mg PO DAILY Patient Comments: TAKE 2 TABLETS BY MOUTH EVERY DAY insulin aspart U-100 [Novolog U-100 Insulin aspart] 100 unit/mL solution See Rx Instructions .ROUTE .COMPLEX Patient Comments: USE UP TO 125 UNITS DAILY VIA INSULIN PUMP DIRECTED Rx Instructions: USE UP TO 125 UNITS DAILY VIA INSULIN PUMP DIRECTED gabapentin 300 mg capsule 900 mg PO DAILY Patient Comments: TAKE 3 CAPSULES BY MOUTH EVERY DAY AT BEDTIME metformin 500 mg tablet extended release 24 hr 500 mg PO BID Hold Instructions: Resume on 07/10/23. Patient Comments: TAKE 1 TABLET BY MOUTH TWICE A DAY WITH MEALS Jardiance 10 mg tablet 10 mg PO DAILY Patient Comments: TAKE 1 TABLET BY MOUTH DAILY. DOSE DECREASE Ozempic 0.25 mg or 0.5 mg(2 mg/1.5 mL) pen injector 0.25 mg SQ WEEKLY Patient Comments: INJECT 0.25MG SUBCUTANEOUSLY ONCE WEEKLY FOR 4 WEEKS, THEN INCREASE TO 0.5MG WEEKLY aspirin [Adult Aspirin Regimen] 81 mg tablet,delayed release (DR/EC) 81 mg PO DAILY Brilinta 90 mg Tablet 90 mg PO BID Clinical Impressions Clinical Impression: [place] (acute kidney injury), Syncope and collapse, Thrombocytopenia, Generalized muscle weakness, Acute hypotension Discharge ED Provider: Henrry Cannon Adult HPI General Chief complaint: Weakness Stated complaint: Weakness Time Seen by Provider: 08/28/23 04:40 Mode of Arrival: EMS Source of Information: Patient Limitations: No Limitations Description of Symptoms (Recalled from ER Triage Doc. by RN): pt states tested positive for covid on at home. tonight pt became weak tonight and had a syncope episode on the way to the bathroom. History of Present Illness HPI narrative: 52-year-old male history of type 2 diabetes with external insulin pump, coronary artery disease with multiple stents, on aspirin and Brilinta, tested positive for COVID at home a few days ago, presents with hypotension and multiple falls. Patient reports that he has had intermittent severe headaches at home over the last couple of days. He reports he had decreased oral intake but reports he is still drinking fluids. He does not feel short of breath. He had multiple syncopal falls last night after getting up out of bed. He reports that he feels generally weak and cannot stand. He reports that he starts to feel woozy when he sits up. He does not feel weak on one side or the other. He reports multifocal pain after his falls including headache, neck pain, chest pain, back pain, left hip pain. He is not on any antihypertensive medications. He was hypotensive in route with EMS, blood pressure improved with fluids hanging. Patient reports that he crushed and destroyed his insulin pump during one of the falls. Related Data Home Medications Medication Instructions Recorded Confirmed empagliflozin 10 mg tablet 10 mg PO DAILY . 02/18/23 08/28/23 (Jardiance) gabapentin 300 mg capsule 900 mg PO DAILY . 02/18/23 08/28/23 insulin aspart U-100 100 unit/mL See Rx Instructions .Route 02/18/23 08/28/23 subcutaneous solution (Novolog .COMPLEX . U-100 Insulin aspart) metformin 500 mg tablet,extended 500 mg PO BID . 02/18/23 08/28/23 release 24 hr semaglutide 0.25 mg or 0.5 mg (2 0.25 mg SQ WEEKLY . 02/18/23 08/28/23 mg/1.5 mL) subcutaneous pen injector (Ozempic) sertraline 100 mg tablet 100 mg PO DAILY , 02/18/23 08/28/23 aspirin 81 mg tablet,delayed 81 mg PO DAILY . 07/07/23 08/28/23 release (Adult Aspirin Regimen) ticagrelor 90 mg tablet (Brilinta) 90 mg PO BID stents 08/03/23 08/28/23 atorvastatin 40 mg tablet 40 mg PO HS High Cholesterol 08/28/23 08/28/23 losartan 25
--- NOTE | 2023-08-28 06:29 | PC.NURSE ---
notified housecleaner floor of admission
--- NOTE | 2023-08-28 06:56 | PC.NURSE ---
pt arrived to floor via stretcher @6;54am
[2023-08-28 08:54] LABS: Troponin I 0.02 ng/ml (0.00-0.034)
--- NOTE | 2023-08-28 10:04 | EXP.HP ---
History of Present Illness *Admission Date: 08/28/23 *Reason for visit:: Falls, weakness *History of present illness: Mr. Delgado is a 52-year-old male with history of diabetes (on insulin pump), CAD, who presented to the ER because of frequent falls over the past 24 hours. He has had increasing weakness over the weekend. Of note, tested positive at home for COVID on . He has felt more fatigued and weak over the course the weekend and has decreased oral intake. After falling 3 times, he came to the ER for further evaluation. His main symptom from COVID was headache. Denies any significant shortness of breath, chest pain, nausea or vomiting. Has not eaten as much but has been trying to stay hydrated. Reports pain in his abdomen, head, neck after his multiple falls. Blood pressure soft in route to the hospital. He received 1 L of IV fluids in the ER. Work-up concerning for [place] with creatinine of 2.5 (baseline 1.0). Medicine consulted for admission for further management of dehydration and [place] in the setting of weakness and falls at home. On evaluation after arriving to the floor, patient states he is feeling somewhat better. He is afebrile and hemodynamically stable. Tolerating p.o. fluids. Denies any loss of consciousness or confusion. Still sore but better. Imaging reviewed with no acute fractures. There is some slight contrast infiltration most likely from bruising in left back. [facility] Disclaimer: The information contained in this section may have been updated after the patient was seen, as this information can be updated by other users. Medical History Angina pectoris Anxiety Coronary artery disease Depression Dyspnea FHx: cholecystectomy Hyperlipidemia Hypertension Surgical History H/O knee surgery Stented coronary artery Family History Family history of hypertension Family history of diabetes mellitus type II Family history of myocardial infarction Family history of hyperlipidemia Social History Smoking Status: Former smoker alcohol intake: never current occupational status: unemployed Travel in the last 8 weeks: None Review of Systems Review of Systems Review of systems (narrative): 14 point review of systems performed, pertinent positives and negatives as per HPI Meds Home Medications and Allergies Home Medications Medication Instructions Recorded Confirmed Type empagliflozin 10 mg tablet 10 mg PO DAILY Diabetes 02/18/23 08/28/23 History (Jardiance) gabapentin 300 mg capsule 900 mg PO HS Neuropathy 02/18/23 08/28/23 History insulin aspart U-100 100 unit/mL 0 sliding scale dose continuous 02/18/23 08/28/23 History subcutaneous solution (Novolog subcutaneous infusion DAILY U-100 Insulin aspart) Diabetes metformin 500 mg tablet,extended 500 mg PO BID Diabetes 02/18/23 08/28/23 History release 24 hr sertraline 100 mg tablet 100 mg PO DAILY Depression 02/18/23 08/28/23 History aspirin 81 mg tablet,delayed 81 mg PO DAILY Circulation 07/07/23 08/28/23 History release (Adult Aspirin Regimen) ticagrelor 90 mg tablet (Brilinta) 90 mg PO BID Blood Thinner 08/03/23 08/28/23 History atorvastatin 40 mg tablet 40 mg PO HS High Cholesterol 08/28/23 08/28/23 History nitroglycerin 0.4 mg sublingual 0.4 mg sublingual Q5MINP PRN Chest 08/28/23 08/28/23 History tablet Pain semaglutide 1 mg/dose (4 mg/3 mL) 1 mg SQ WEEKLY Diabetes 08/28/23 08/28/23 History subcutaneous pen injector (Ozempic) New Prescriptions to Start Prescriptions: Allergies Allergy/AdvReac Type Severity Reaction Status Date / Time Penicillins Allergy Unknown Verified 07/18/23 14:02 allergy reaction Exam Data for Last 24 hours Vital signs and Labs for Last 24 Hours: Temp Pulse Res
[2023-08-28 10:53] LABS: POC Glucose,Bedside 111 (70-110)
[2023-08-28 12:41] LABS: POC Glucose,Bedside 109 (70-110)
[2023-08-28 14:00] LABS: Influenza A, PCR Not Detected (NotDetected); Influenza B, PCR Not Detected (NotDetected)
[2023-08-28 14:25] LABS: Coronavirus 19, PCR Detected (NotDetected)
[2023-08-28 16:03] LABS: Hemoglobin A1C 6.3 % (4.0-6.0)
[2023-08-28 18:24] LABS: Chloride 99 mmol/L (98-107); Sodium 135 mmol/L (136-145)
[2023-08-28 18:25] LABS: Potassium 4.2 mmoL/L (3.5-5.1)
[2023-08-28 18:28] LABS: Anion Gap 12.2 mEq/L (5-15); Blood Urea Nitrogen 51 mg/dl (9-20); Calcium 7.8 mg/dl (8.4-10.2); Carbon Dioxide 28 mmol/L (22.0-30.0); Creatinine Clearance Estimated 64 mL/min (50-200); Estimated Glomerular Filt Rate 37 ml/min (>60); GFR (African American) 45 ML/MIN (>60); Glucose 107 mg/dl (74-100)
[2023-08-28 19:09] LABS: POC Glucose,Bedside 98 (70-110)
[2023-08-28 20:24] LABS: POC Glucose,Bedside 107 (70-110)
[2023-08-29 04:00] VITALS: BP 115/70; PULSE 77; RESP 18; TEMP 36.7; O2SAT 91; BMI 28.8
--- NOTE | 2023-08-29 06:00 | XR_ITS ---
PROCEDURE INFORMATION: Exam: XR Chest Exam date and time: 08/29/2023 5:50 AM Age: 52 years old Clinical indication: Cough TECHNIQUE: Imaging protocol: Radiologic exam of the chest. Views: 1 view. COMPARISON: CT ANGIO CHEST 08/28/2023 6:04 AM FINDINGS: Lungs: Hypoinflation and mild interstitial prominence, without focal infiltrate. Pleural spaces: No pleural effusion. Heart/Mediastinum: No cardiomegaly. Bones/joints: No acute osseous pathology. IMPRESSION: Hypoinflation and mild interstitial prominence, without focal infiltrate.
[2023-08-29 06:31] LABS: POC Glucose,Bedside 90 (70-110)
[2023-08-29 06:51] LABS: Basophils % 0.3 % (0.1-2.0); Eosinophils % 1.3 % (0.1-12.0); Hematocrit 44.5 % (42.0-52.0); Hemoglobin 14.4 g/dL (14.1-18.0); Lymphocytes # 0.8 K/mm3 (0.7-4.5); Lymphocytes % 29.7 % (10-50); Mean Corpuscular HGB Conc 32.3 g/dL (31.8-35.4); Mean Corpuscular Hemoglobin 27.6 pg (27.0-31.2); Mean Corpuscular Volume 85.4 fl (80-94); Mean Platelet Volume 8.5 fl (7.4-10.4); Monocytes # 0.2 K/mm3 (0.1-1.0); Monocytes % 8.9 % (1.7-9.3); Neutrophils # 1.5 K/mm3 (1.8-7.8); Neutrophils % 59.8 % (37.0-80.0); Platelet Count 115 K/mm3 (142-424); Red Blood Count 5.22 M/mm3 (4.60-6.20); Red Cell Distribution Width 14.7 % (11.5-17.5); White Blood Count 2.6 K/mm3 (4.8-10.8)
[2023-08-29 06:58] LABS: Chloride 101 mmol/L (98-107); Potassium 4.1 mmoL/L (3.5-5.1); Sodium 136 mmol/L (136-145)
[2023-08-29 07:01] LABS: Alanine Aminotransferase 44 U/L (12-78); Albumin Level 3.4 g/dl (3.5-5.0); Albumin/Globulin Ratio 1.4 (1.1-1.8); Alkaline Phosphatase 86 U/L (38-126); Anion Gap 11.1 mEq/L (5-15); Aspartate Amino Transferase 65 U/L (17-59); Bilirubin,Total 0.3 mg/dl (0.2-1.3); Blood Urea Nitrogen 39 mg/dl (9-20); Calcium 8.1 mg/dl (8.4-10.2); Carbon Dioxide 28 mmol/L (22.0-30.0); Creatinine Clearance Estimated 89 mL/min (50-200); Estimated Glomerular Filt Rate 53 ml/min (>60); GFR (African American) 64 ML/MIN (>60); Globulin 2.4 g/dL (1.3-3.2); Glucose 101 mg/dl (74-100); Total Protein,Serum 5.8 g/dl (6.3-8.2)
[2023-08-29 07:26] VITALS: BP 120/72; PULSE 79; RESP 18; TEMP 36.7; O2SAT 94
[2023-08-29 07:27] LABS: Magnesium 1.6 mg/dl (1.6-2.3)
--- NOTE | 2023-08-29 07:36 | EXP.DC.SUM ---
General Admission date:: 08/28/23 Discharge date: 08/29/23 HPI HPI HPI: Mr. Delgado is a 52-year-old male with history of diabetes (on insulin pump), CAD, who presented to the ER because of frequent falls over the past 24 hours. He has had increasing weakness over the weekend. Of note, tested positive at home for COVID on . He has felt more fatigued and weak over the course the weekend and has decreased oral intake. After falling 3 times, he came to the ER for further evaluation. His main symptom from COVID was headache. Denies any significant shortness of breath, chest pain, nausea or vomiting. Has not eaten as much but has been trying to stay hydrated. Reports pain in his abdomen, head, neck after his multiple falls. Blood pressure soft in route to the hospital. He received 1 L of IV fluids in the ER. Work-up concerning for [place] with creatinine of 2.5 (baseline 1.0). Medicine consulted for admission for further management of dehydration and [place] in the setting of weakness and falls at home. On evaluation after arriving to the floor, patient states he is feeling somewhat better. He is afebrile and hemodynamically stable. Tolerating p.o. fluids. Denies any loss of consciousness or confusion. Still sore but better. Imaging reviewed with no acute fractures. There is some slight contrast infiltration most likely from bruising in left back. Hospital Course Hospital Course Hospital Course: 52-year-old male who was falling at home. Diagnosed with COVID on . Found to be dehydrated with [place]. Received IV fluids in the ER, necessitated admission for further management. Discussed case with ER physician, request admission for fluid resuscitation and serial labs. Medicine agreed to admit for further management. Patient did well overnight, tolerating p.o. fluids. Improvement in labs. Stable for discharge home. Problems addressed as follows: [place] Dehydration COVID-19 - Cr 2.5 on admission. Improved to 1.4 by day of discharge. Baseline 1.0. BUN improved from 53-39. Tolerating good p.o. intake. Repeat COVID test was still positive however patient is otherwise asymptomatic. Continue oral hydration. Would recommend repeat BMP in 1 week to monitor kidney function normalization. Stable for discharge home. Diabetes -A1c 6.3. Well-controlled. On pump therapy at home, pump broke with one of his falls.. Tolerated sliding scale insulin with initiation of basal, glargine 15 units nightly. Morning glucose mid 90s. Continue basal bolus regimen. Will send home with glargine pen for 15 units nightly. Patient has short acting for mealtime dosage at home. Recommend that he contact his pump addiction therapist for replacement as soon as possible. Resume home regimen with back metformin, Jardiance at discharge. CAD: Continue dual antiplatelet therapy with aspirin and Brilinta, Continue statin with Lipitor 40 mg nightly Neuropathy: Held gabapentin during admission, okay to resume with normalization in kidney function. Depression: Continue home Zoloft 100 mg daily Exam Data for Last 24 hours Vital signs and Labs for Last 24 Hours: Temp Pulse Resp BP Pulse Ox O2 Del Method 98.1 F 79 18 120/72 94 L Room Air 08/29/23 07:26 08/29/23 07:26 08/29/23 07:26 08/29/23 07:26 08/29/23 07:26 08/29/23 07:26 Laboratory Results - last 24 hr 08/28/23 04:39: Hemoglobin A1c 6.3 H 08/28/23 08:10: Troponin I 0.02 08/28/23 10:38: POC Glucose 111 H 08/28/23 12:33: POC Glucose 109 08/28/23 13:52: SARS-CoV-2 (PCR) Detected A, Influenza A Untype (PCR) Not detected, Influenza Type B (PCR) Not detected 08/28/23 17:55: Sodium 135 L, Potassium 4.2, Chloride 99, Carbon Dioxide 28, Anion Gap 12.2, BUN 51 H, Creatinine 1.90 H D, Estimated Creat Clear 64, Estimated GFR 37 L, Est GFR ( Amer) 45 L D, Glucose 107 H, Calcium 7.8 L 08/28/23 18:24: POC Glucose 98 08/28/23 19:58: POC Glucose 107 08/29/23 06:22: POC Glucose 90 08/29/23 06:32: WBC 2.6 L
--- NOTE | 2023-09-06 16:00 | CARE MANAGER ---
CM attempted to reach patient to discuss recent discharge. Call attempted x 2, no VM available.
== END 2023-08-29 11:07 | disposition home or self-care (01) ==
LOC: ER 05:41 → 2ND 06:44
PROVIDERS: Internal Medicine Adolescent Medicine; Admitting Provider Family Medicine; Emergency Provider Emergency Medicine; PCP Family Medicine; Visit Provider Family Medicine
DX: U07.1 COVID-19 (principal); N17.9 Acute kidney failure, unspecified; I95.9 Hypotension, unspecified; E11.9 Type 2 diabetes mellitus without complications; Z95.5 Presence of coronary angioplasty implant and graft; E78.5 Hyperlipidemia, unspecified; Z79.4 Long term (current) use of insulin; Z87.891 Personal history of nicotine dependence; Z79.899 Other long term (current) drug therapy; R29.6 Repeated falls; E86.0 Dehydration
CPT/HCPCS: 36415; 70450; 70496; 70498; 71045; 71275; 72125; 72128; 72131; 73502; 74174; 80048; 80053; 82550; 82962; 83036; 83735; 84436; 84484; 85025; 87636; 93005; 99285; G0378; J3475; Q9967

== ENCOUNTER 2023-09-05 16:06 | Emergency (ER) | payer OTHER, SELFPAY ==
[2023-09-05] VITALS (11 sets, daily range): BP systolic 89–133; BP diastolic 64–80; PULSE 81–113; RESP 18–20; TEMP 36.3–36.8; O2SAT 98–100; BMI 29.0
--- NOTE | 2023-09-05 16:30 | CT_ITS ---
PROCEDURE INFORMATION: Exam: CTA Chest With Contrast Exam date and time: 09/05/23 04:59 PM Age: 52 years old Clinical indication: Pain; Left-sided; Additional info: L chest pain/soa TECHNIQUE: Imaging protocol: Computed tomographic angiography of the chest with contrast. Exam focused on the arteries. 3D rendering (Not supervised by radiologist): MIP and/or 3D reconstructed images were created by the technologist. Radiation optimization: All CT scans at this facility use at least one of these dose optimization techniques: automated exposure control; mA and/or kV adjustment per patient size (includes targeted exams where dose is matched to clinical indication); or iterative reconstruction. Contrast material: ISOVUE 370; Contrast volume: 70 ml; Contrast route: INTRAVENOUS (IV); REPORTING DATA: Count of CT and Cardiac NM exams in prior 12 months: This patient has received 8 known CTs and 0 known cardiac nuclear medicine studies in the 12 months prior to the current study. COMPARISON: CT ANGIO CHEST 08/28/23 06:04 AM FINDINGS: Pulmonary arteries: Normal. No pulmonary emboli. Aorta: Unremarkable. No aortic aneurysm. No aortic dissection. Lungs: Unremarkable. No consolidation. No masses. Pleural spaces: Unremarkable. No pneumothorax. No pleural effusion. Heart: Unremarkable. No cardiomegaly. No pericardial effusion. Lymph nodes: Unremarkable. No enlarged lymph nodes. Gallbladder and bile ducts: Cholecystectomy. Bones/joints: Unremarkable. No acute fracture. Soft tissues: Unremarkable. IMPRESSION: No CTA evidence of pulmonary embolus. Impression.
--- NOTE | 2023-09-05 16:30 | ECG_ITS ---
APPROVED REPORT Exam: Resting ECG HR:91 bpm ECG Measurements Heart Rate 91 AXES NC 160 P 66 QRSd 82 QRS 99 QT 347 T 25 QTc 396 Conclusion SINUS RHYTHM BORDERLINE RIGHT AXIS DEVIATION [QRS AXIS > 90] BORDERLINE ECG UNCONFIRMED REPORT Electronically signed by : Jose Hickman MD 09/06/2023 07:54:15
[2023-09-05 16:48] LABS: Basophils % 0.6 % (0.1-2.0); Eosinophils # 0.1 K/mm3 (0.0-0.4); Eosinophils % 0.9 % (0.1-12.0); Hematocrit 45.6 % (42.0-52.0); Hemoglobin 15.8 g/dL (14.1-18.0); Lymphocytes # 0.6 K/mm3 (0.7-4.5); Lymphocytes % 11.2 % (10-50); Mean Corpuscular HGB Conc 34.6 g/dL (31.8-35.4); Mean Corpuscular Hemoglobin 29.2 pg (27.0-31.2); Mean Corpuscular Volume 84.2 fl (80-94); Mean Platelet Volume 8.9 fl (7.4-10.4); Monocytes # 0.4 K/mm3 (0.1-1.0); Monocytes % 8.1 % (1.7-9.3); Neutrophils # 4.3 K/mm3 (1.8-7.8); Neutrophils % 79.1 % (37.0-80.0); Platelet Count 208 K/mm3 (142-424); Red Blood Count 5.42 M/mm3 (4.60-6.20); Red Cell Distribution Width 14.8 % (11.5-17.5); White Blood Count 5.4 K/mm3 (4.8-10.8)
[2023-09-05 16:51] LABS: Chloride 99 mmol/L (98-107); Potassium 4.5 mmoL/L (3.5-5.1); Sodium 136 mmol/L (136-145)
[2023-09-05 16:54] LABS: Alanine Aminotransferase 41 U/L (12-78); Albumin Level 3.9 g/dl (3.5-5.0); Albumin/Globulin Ratio 1.3 (1.1-1.8); Alkaline Phosphatase 128 U/L (38-126); Anion Gap 19.5 mEq/L (5-15); Aspartate Amino Transferase 44 U/L (17-59); Bilirubin,Total 1.1 mg/dl (0.2-1.3); Blood Urea Nitrogen 42 mg/dl (9-20); Calcium 8.7 mg/dl (8.4-10.2); Carbon Dioxide 22 mmol/L (22.0-30.0); Creatinine Clearance Estimated 104 mL/min (50-200); Estimated Glomerular Filt Rate 64 ml/min (>60); GFR (African American) 77 ML/MIN (>60); Globulin 3.1 g/dL (1.3-3.2); Glucose 254 mg/dl (74-100); Lipase 191 U/L (23-300)
--- NOTE | 2023-09-05 16:57 | PC.NURSE ---
pt to ct scan via wheelchair
--- NOTE | 2023-09-05 17:34 | HMH.EDGENADL ---
Discharge Plan Disposition Patient Disposition: Home, Self-Care Condition: Good Prescriptions Prescriptions: No Action atorvastatin 40 mg tablet 40 mg PO HS nitroglycerin 0.4 mg tablet, sublingual 0.4 mg sublingual Q5MINP PRN (Reason: Chest Pain) Ozempic 1 mg/dose (4 mg/3 mL) pen injector 1 mg SQ WEEKLY Patient Comments: INJECT 1 MG UNDER THE SKIN DIRECTED ONCE WEEKLY insulin glargine [Lantus Solostar U-100 Insulin] 100 unit/mL (3 mL) Insulin Pen 15 unit SQ HS 30 Days Qty: 0 0RF sertraline 100 mg tablet 100 mg PO DAILY Patient Comments: TAKE 2 TABLETS BY MOUTH EVERY DAY insulin aspart U-100 [Novolog U-100 Insulin aspart] 100 unit/mL solution 0 sliding scale dose continuous subcutaneous infusion DAILY Patient Comments: USE UP TO 125 UNITS DAILY VIA INSULIN PUMP DIRECTED Rx Instructions: USE UP TO 125 UNITS DAILY VIA INSULIN PUMP DIRECTED gabapentin 300 mg capsule 900 mg PO HS Patient Comments: TAKE 3 CAPSULES BY MOUTH EVERY DAY AT BEDTIME metformin 500 mg tablet extended release 24 hr 500 mg PO BID Hold Instructions: Resume on 07/10/23. Patient Comments: TAKE 1 TABLET BY MOUTH TWICE A DAY WITH MEALS Jardiance 10 mg tablet 10 mg PO DAILY Patient Comments: TAKE 1 TABLET BY MOUTH DAILY. DOSE DECREASE aspirin [Adult Aspirin Regimen] 81 mg tablet,delayed release (DR/EC) 81 mg PO DAILY Brilinta 90 mg Tablet 90 mg PO BID Referrals Follow up/Referrals: Quyen Vincent [Primary Care Provider] - See instructions Activity Restrictions/Add. Instructions Additional Instructions/Restrictions: You were evaluated in the emergency department today. Please make sure that you are staying orally hydrated. Follow-up with your primary care provider over the next 3 days for reassessment. Return to the emergency department for new or worsening symptoms. Clinical Impressions Clinical Impression: Dehydration, Orthostatic hypotension Instructions Patient Instructions: DI for Syncope in Adults (Fainting), DI for Dehydration -- Adult Discharge ED Provider: Prema Schafer General Adult HPI General Chief complaint: Syncope Stated complaint: light-headed, SOA covid + Time Seen by Provider: 09/05/23 16:29 Mode of Arrival: Family Vehicle Source of Information: Patient Limitations: No Limitations Description of Symptoms (Recalled from ER Triage Doc. by RN): Pt c/o chest congestion, dizziness, syncope, and exertional SOA with dyspnea. Pt repriots he was admitted her on 08/28 d/t [place], hypotension, and syncope. He also was COVID positive at this visit. Pt reports he is having similar symtoms again and has passed out at home again and his family is concerned. Denies any n/v/d. States he feels fine when sitting but when he gets up and walks around he feels dizzy, weak, and then passes out. He also had a heart cath in June and 1 stent was placed. He is currently on Brillenta for dual apt. History of Present Illness HPI narrative: This patient is a 52-year-old male with a history of insulin-dependent diabetes CAD status post stenting, and recent diagnosis of COVID-19 with admission for [place] in the setting of dehydration on 08/28/2023. Patient reports that on this evaluation, he was having multiple frequent falls as well as left-sided lower chest wall pain. The pain has not changed since his discharge, and he reports that his work-up for this pain was negative when he was admitted on 08/28. He states that he spoke with his primary care provider who told him that if he is not feeling better, he should return to the emergency department. He states that since going home, he still felt tired and weak and is still continued to have left-sided chest wall pain. It is worse with coughing and movements. He denies any syncopal episodes or falls since discharge. He reports that he is still able to eat and drink okay. He is injecting insulin a
--- NOTE | 2023-09-05 17:45 | PC.NURSE ---
Dr. Schafer at bedside
[2023-09-05 17:48] LABS: VBG Base Excess -5.3 mmol/L (-2.4-2.3); VBG HCO3 21.2 mmol/L (23-30); VBG Oxygen Saturation 80.3 % (50-70); VBG PCO2 44.4 mmol/L (35-51); VBG PO2 44.5 mmol/L (28-40); VBG Total CO2 22.5 mmol/L (23-27)
[2023-09-05 18:01] LABS: Acetone, Serum (Rapid) None Detected (None Detect)
[2023-09-05 18:20] LABS: Troponin I < 0.01 ng/ml (0.00-0.034)
--- NOTE | 2023-09-05 18:27 | PC.NURSE ---
pt given urinal for specimen collection
[2023-09-05 18:41] LABS: Microscopic, Urine URINE MICROSCOPIC (MICROSCOPIC)
[2023-09-05 18:48] LABS: Appearance,Urine CLEAR (Clear); Blood, Urine Negative (Negative); Color,Urine YELLOW (Yellow); Glucose,Urine (UA) 1+ (Negative); Ketones,Urine 1+ (Negative); Leukocyte Esterase,Urine Negative (Negative); Nitrate,Urine Negative (Negative); PH,Urine 6.5 (5.0-8.5); Protein,Urine Negative (Negative); Specific Gravity, Urine <= 1.005 (1.005-1.030); Urobilinogen,Urine 0.2 EU/dl (0.2)
[2023-09-05 18:52] LABS: Bilirubin,Urine 1+ (Negative)
[2023-09-05 19:03] LABS: Bacteria,Urine Trace /lpf; RBC,Urine Occasional #/hpf (0-3); Squamous Epithelial Cell,Urine Occasional #/hpf (0-5)
== END 2023-09-05 21:03 | disposition home or self-care (01) ==
PROVIDERS: Emergency Provider Emergency Medicine; PCP Family Medicine
DX: E86.0 Dehydration (principal); R06.02 Shortness of breath; I95.9 Hypotension, unspecified; R42 Dizziness and giddiness
CPT/HCPCS: 71275; 80053; 81001; 82009; 82803; 83690; 84484; 85025; 93005; 96374; 96375; 99285; J0131; Q9967

== ENCOUNTER 2024-04-24 07:04 | Outpatient (CLI) | payer BC, SELFPAY ==
--- NOTE | 2024-04-24 | CA_ITS ---
APPROVED REPORT Exam: Pharmacologic Technologist: Jocelyn Greenwood, Ht: 6 ft 2 in Wt: 235 lbs BSA: 2.33 m2 HR: 62 bpm BP: 165/94 mmHg Rhythm: NSR, rightward axis, poor R wave progression Medical History Medications: Aspirin,,,,, Metformin,,,,, Gabapentin,,,,, Atorvastatin,,,,, INSULIN,,,,, BRILINTA,,,,, BisOPROLOL Fumarate,,,,, Sertraline,,,,, Nitroglycerin,,,,, JaRDiance,,,,, Ozempic,,,,, Cardiac Risk Factors: HTN, Hyperlipidemia, Diabetes (insulin), FHX of CAD, Smoking Stress Test Details Test: LEXISCAN HR Resting HR: 65 bpm Max Heart Rate (APMHR): 167 bpm Max HR Achieved: 75 bpm Target HR (85% APMHR): 142 bpm % of APMHR: 45 Recovery HR: 69 bpm BP Resting BP: 165/94 mmHg Max BP: 168/97 mmHg Recovery BP: 167.0/97.0 mmHg ECG Resting ECG: NSR, rightward axis, poor R wave progression Clinical Exercise duration: 04:00 min Highest Stage Achieved: Stress ECG Conclusion During lexiscan pt experinced mild chest discomfort, SOA, and mild head discomfort. No arrhythmias noted. No significant ST changes. Conclusion: Unremarkable lexiscan stress. Myoview images reported separately. Test Summary REST . . . . . . . Sitting REST 05:11 . . 65 . 165/ 94 . . Stage 1 01:00 . . 70 . . . . Stage 2 01:00 . . 72 . 167/ 95 . . Stage 3 01:00 . . 68 . 157/ 91 . . Stage 4 01:00 . . 66 . 151/ 94 . Stop exercise at 04:00 RECOVERY 01:00 . . 68 . . . . RECOVERY 02:00 . . 67 . . . . RECOVERY 03:00 . . 68 . 167/ 97 . . RECOVERY 03:29 . . 68 . 168/ 97 . . Electronically signed by : Tanika Quintanilla MD 04/30/2024 15:10:17
--- NOTE | 2024-04-24 07:05 | NM_ITS ---
APPROVED REPORT Exam: Nuclear Stress Test Indication: CAD, HTN, DM, HYPERLIPIDEMIA, FM HX,C.P., SOB, FATIGUE Patient Location: Outpatient Stress Tech: Jocelyn Greenwood [place] Tech:Caitlyn Zhong, ARRT RT (R)(N)(M) Ht: 6 ft 2 in Wt: 235 lbs HR: 65 bpm BP: 165/94 mmHg BSA: 2.33 m2 TID: 1.36 BMI: 30.1 History: CAD, HTN, DM, HYPERLIPIDEMIA, FM HX,C.P., SOB, FATIGUE Procedure: Patient received 0.4 mg of intravenous Lexiscan, resting heart rate 65 bpm, resting blood pressure 165/94 mmHg, with Lexiscan maximum heart rate achieved was 75 bpm which is 7 % of the maximum predicted heart rate and blood pressure was 168/97 mmHg. With Lexiscan, patient denied any complaint of chest pain. Cardiac Stress and Resting SPECT Images: Cardiac Stress and Resting SPECT images were obtained using technetium 99m Myoview 32.4 mCi stress and 10.92 mCi at rest. Resting and stress imaging in supine and prone positions demonstrate no evidence of fixed or reversible perfusion defects. There is increase in transient ischemic dilatation ratio (TID 1.36), suggestive of possible multivessel disease or balanced ischemia. Gated imaging demonstrates normal global and regional LV systolic function. LVEF is calculated at 58%. Conclusion: No evidence of fixed or reversible perfusion defects. There is increase in transient ischemic dilatation ratio (TID 1.36), suggestive of possible multivessel disease or balanced ischemia. Gated imaging demonstrates normal global and regional LV systolic function. LVEF is calculated at 58%. Electronically signed by : Tanika Quintanilla MD 04/30/2024 15:11:22
[2024-04-24] MEDS: ISOTOPE MYOVIEW (PER STUDY) 1 DOSE IV (08:39)
[2024-04-24] MEDS: SODIUM CHLORIDE 0.9% 10ML SYR (RAD ONLY) 10 ML IV ×2 (08:39)
[2024-04-24] MEDS: REGADENOSON 0.4MG/5ML SYRINGE 0.400000000000000022 MG IV (08:39)
== END 2024-04-24 23:59 | disposition home or self-care (01) ==
LOC: RAD 07:05
PROVIDERS: PCP Family Medicine; Visit Provider Nurse Practitioner Family
DX: R07.9 Chest pain, unspecified (principal); I25.118 Atherosclerotic heart disease of native coronary artery with other forms of angina pectoris; I99.8 Other disorder of circulatory system; I10 Essential (primary) hypertension; R53.1 Weakness; E78.5 Hyperlipidemia, unspecified; Z95.5 Presence of coronary angioplasty implant and graft
CPT/HCPCS: 78452; 93017; 93018; A9502; J2785

== ENCOUNTER 2024-04-25 08:01 | Outpatient (CLI) | payer BC, SELFPAY ==
--- NOTE | 2024-04-25 08:01 | CA_ITS ---
FINAL REPORT TECHNIQUE: Grayscale, color Doppler and duplex Doppler ultrasound of the kidneys, aorta and renal arteries was performed. Multiple velocities were measured. CLINICAL HISTORY: flucuation of bp., DM insulin pump COMPARISON: None FINDINGS: Aorta velocity: 92 cm/sec Right kidney: 10.6 cm. No evidence of hydronephrosis or mass. Right intrarenal RI: 0.76-0.83 Right renal artery velocity: 142 cm/sec. Right RAR (Renal artery-Aortic Ratio): 1.54 Left Kidney: 11.0 cm. No evidence of hydronephrosis or mass. Left intrarenal RI: 0.73-0.83 Left renal artery velocity: 126 cm/sec. Left RAR (Renal Artery-Aortic Ratio): 1.38 IMPRESSION: No evidence of significant renal artery stenosis. CT angiogram or postcontrast MR angiogram would be more sensitive for evaluation of possible renal artery stenosis. Reviewed, Interpreted and Dictated by Cricket Menon MD Transcribed by Esthela Dasilva Authenticated and [facility]
--- NOTE | 2024-04-25 08:34 | US_ITS ---
FINAL REPORT CLINICAL HISTORY: htn COMPARISON: None FINDINGS: RENAL ULTRASOUND Ultrasound images of the kidneys were obtained. Limited images of the liver parenchyma demonstrates mild fatty infiltration. The right kidney measures 11.0 cm in length. It is normal echogenicity. There is no hydronephrosis. The left kidney measures 12.0 cm in length. It is normal echogenicity. There is no hydronephrosis. IMPRESSION: Normal renal ultrasound. Mild fatty liver. Reviewed, Interpreted and Dictated by Cricket Menon MD Transcribed by Esthela Dasilva Authenticated and [facility]
== END 2024-04-25 23:59 | disposition home or self-care (01) ==
LOC: RT 08:01
PROVIDERS: PCP Family Medicine; Visit Provider Nurse Practitioner Family
DX: I11.9 Hypertensive heart disease without heart failure (principal); I25.118 Atherosclerotic heart disease of native coronary artery with other forms of angina pectoris; I99.8 Other disorder of circulatory system; R53.1 Weakness; R07.9 Chest pain, unspecified; Z95.5 Presence of coronary angioplasty implant and graft; E78.5 Hyperlipidemia, unspecified; Z87.891 Personal history of nicotine dependence
CPT/HCPCS: 76770; 93976

== ENCOUNTER 2024-05-13 07:04 | Day surgery (SDC) | payer BC, SELFPAY ==
[2024-05-13] VITALS (14 sets, daily range): BP systolic 81–174; BP diastolic 39–102; PULSE 57–72; RESP 16–18; TEMP 36.8; O2SAT 93–98; BMI 30.4
--- NOTE | 2024-05-13 07:11 | IR_ITS ---
APPROVED REPORT Patient Location: Outpatient Merchandise Adjustment Clerk: DESIRAE Garcia RT (R) PROCEDURES Left heart catheterization Left ventriculogram Selective coronary angiogram Intravascular ultrasound of the proximal mid LAD Intravascular ultrasound to the circumflex artery Intravascular ultrasound to the right coronary artery Drug-eluting stent deployment to the distal dominant right coronary INDICATION Coronary artery disease, Abnormal stress test, History of stents with angiographic evidence of in-stent restenosis, Accelerated angina pectoris, MLA of 2.7 mm??? to the distal dominant right coronary, Informed consent was obtained prior to the procedure. COMPLICATIONS NONE Estimated Blood Loss: LESS THAN 10 ML TECHNIQUE One percent lidocaine used to anesthetize the right anterior aspect of the wrist. The right radial artery was accessed via the Seldinger technique. A 6 [place] sheath was placed in the right radial artery. 2.5 mg of Verapamil, 800 mcg of nitroglycerin, 1mg Lidocaine and 5000 U Heparin were given through the arterial sheath. The papa catheter was also used to perform left heart catheterization, left ventriculogram and selective coronary angiogram. At the end of the diagnostic angiogram therapeutic heparin was administered giving a therapeutic ACT and the guide catheter was placed in left main artery followed by Choice PT extra-support wire placed down the LAD. Intravascular ultrasound probe was advanced which demonstrated wide patency of the stent with minimal in-stent restenosis. Distally there was good transitioning with no stenosis meeting criteria for percutaneous revascularization. This technique was repeated in the circumflex artery where it demonstrated moderate atheromatous plaque also with MLA's in excess of 5 mm???. This process was repeated in the right coronary artery which demonstrated heavy distal atheromatous plaque with an MLA of 2.7 mm??? in the distal dominant right coronary. Because of this a 3.5 x 38 mm Redrock frontier stent was deployed at 15 booker reducing the severe stenosis to less than 10%. Excellent angiographic results were obtained with MICHEL-3 flow being present before and after the procedure. At the end of the procedure the apparatus was removed the sheath was removed and hemostasis was achieved using TR banding patient was transferred to the postop holding in stable condition ANGIOGRAPHIC RESULTS The left main artery Normal The left anterior descending artery Has stents in the proximal to mid segment which are widely patent with minimal in-stent restenosis. Distally there is haziness in the mid LAD which is angiographically indeterminate. This proved to be mild atheromatous plaque The circumflex artery Nondominant yet still large caliber vessel with mid vessel and distal 50 to 60% plaque The right coronary artery Large dominant proximal 30% stenosis mid vessel 30% stenosis and distal angiographically indeterminate 50 to 70% stenosis which proved to be closer to 90% by IVUS The DUFF ventriculogram reveals Normal 65% The left ventricular end-diastolic pressure 15 mmHg IMPRESSION Widely patent proximal to mid LAD stent as described above with mild to moderate nonflow limiting mid LAD plaque Moderate plaque in a large nondominant circumflex artery with an MLA exceeding 5 mm??? Severe heavily plaque to the distally diseased dominant right coronary producing an MLA of 2.7 mm??? with successful stenting reducing the lesion to less than 10% with 1 drug-eluting stent Normal ejection fraction Normal left ventricular end-diastolic pressure PLAN 1. Dual antiplatelet therapy 2. LDL less than 55 to be achieved with high intensity statin 3. Avoidance of tobacco products 4. Risk factor modification 5. Cardiac rehabilitation Electronically signed by : Cesario Ortega MD 05/13/2024 10:07:00
[2024-05-13 08:54] LABS: Chloride 102 mmol/L (98-107); Sodium 140 mmol/L (136-145)
[2024-05-13 08:55] LABS: Basophils # 0.1 K/mm3 (0-0.2); Basophils % 1.4 % (0.1-2.0); Eosinophils # 0.2 K/mm3 (0.0-0.4); Eosinophils % 2.2 % (0.1-12.0); Hematocrit 56.6 % (42.0-52.0); Hemoglobin 17.9 g/dL (14.1-18.0); Lymphocytes # 1.2 K/mm3 (0.7-4.5); Lymphocytes % 16.6 % (10-50); Mean Corpuscular HGB Conc 31.7 g/dL (31.8-35.4); Mean Corpuscular Hemoglobin 28.7 pg (27.0-31.2); Mean Corpuscular Volume 90.8 fl (80-94); Mean Platelet Volume 8.2 fl (7.4-10.4); Monocytes # 0.6 K/mm3 (0.1-1.0); Monocytes % 7.4 % (1.7-9.3); Neutrophils # 5.4 K/mm3 (1.8-7.8); Neutrophils % 72.4 % (37.0-80.0); Platelet Count 171 K/mm3 (142-424); Red Blood Count 6.24 M/mm3 (4.60-6.20); Red Cell Distribution Width 14.8 % (11.5-17.5); White Blood Count 7.5 K/mm3 (4.8-10.8)
[2024-05-13 08:57] LABS: Blood Urea Nitrogen 33 mg/dl (9-20); Creatinine Clearance Estimated 93 mL/min (50-200); Estimated Glomerular Filt Rate 53 ml/min (>60); GFR (African American) 64 ML/MIN (>60)
[2024-05-13 08:58] LABS: Calcium 10.2 mg/dl (8.4-10.2); Carbon Dioxide 28 mmol/L (22.0-30.0); Glucose 150 mg/dl (74-100)
[2024-05-13] MEDS: VERAPAMIL 2.5MG/ML 2ML VIAL 2.5 MG IV (09:49)
[2024-05-13] MEDS: 0.9 % SODIUM CHLORIDE 500 ML 25 ML IV (09:49)
[2024-05-13] MEDS: HEPARIN 1,000 UNITS/500ML NS (CATH LAB) 3000 UNIT IV (09:49)
[2024-05-13] MEDS: LIDOCAINE 1% 10ML MDV 20 ML IJ (09:49)
[2024-05-13] MEDS: HEPARIN 1,000 UNITS/ML 10ML VIAL (CATH LAB) 10000 UNIT IV (09:49)
[2024-05-13] MEDS: diphenhydrAMINE 50MG/ML VIAL 50 MG IV (09:49)
[2024-05-13] MEDS: FENTANYL 100MCG/2ML VIAL 50 MCG IV (09:50)
[2024-05-13] MEDS: MIDAZOLAM HCL 1MG/1ML 5ML VIAL 1 MG IV (09:50)
[2024-05-13] MEDS: TICAGRELOR 90MG TABLET 90 MG PO (10:00)
--- NOTE | 2024-05-13 10:35 | SUR.PHASEII ---
Pt updated on POC
--- NOTE | 2024-05-13 12:40 | SUR.PHASEII ---
said no MARYLU/ARB
[2024-05-13] MEDS: IOPAMIDOL-370 (76%);100ML BOTTLE 95 ML IV (12:55)
[2024-05-13 12:57] LABS: CATHL Activated Clotting Time 392 SEC (74-125)
== END 2024-05-13 13:45 | disposition home or self-care (01) ==
PROVIDERS: PCP Family Medicine; Visit Provider Internal Medicine
DX: I25.118 Atherosclerotic heart disease of native coronary artery with other forms of angina pectoris (principal); E11.9 Type 2 diabetes mellitus without complications; Z79.4 Long term (current) use of insulin; Z79.84 Long term (current) use of oral hypoglycemic drugs; Z79.899 Other long term (current) drug therapy; Z95.5 Presence of coronary angioplasty implant and graft; I10 Essential (primary) hypertension; E78.5 Hyperlipidemia, unspecified; Z87.891 Personal history of nicotine dependence
CPT/HCPCS: 80048; 85025; 85347; 92928; 92978; 92979; 93458; 99152; 99153; C1725; C1769; C1874; C9600; J1644; J2250; J3010; Q9967

== ENCOUNTER 2024-05-20 16:35 | Inpatient (IN) | payer BC, SELFPAY ==
[2024-05-20] VITALS (9 sets, daily range): BP systolic 106–157; BP diastolic 66–88; PULSE 47–88; RESP 16–18; TEMP 36.4–36.8; O2SAT 90–99; BMI 30.2
--- NOTE | 2024-05-20 16:41 | ED_ITS ---
<Statement entered by Prema Schafer DO - 05/21/24 00:00> I was consulted by the KRYSTAL, and we discussed the complexity of the problems being addressed. I approved the treatment and management plan for this patient's care in the emergency department, thus performing a substantive portion of the medical decision making. Prema Schafer DO Discharge Plan Disposition Patient Disposition: Admitted Condition: Fair Clinical Impressions Clinical Impression: Acute pancreatitis Qualifiers: Pancreatitis type: unspecified pancreatitis type Acute pancreatitis complication: unspecified Qualified Code(s): K85.90 - Acute pancreatitis without necrosis or infection, unspecified Acute renal failure Qualifiers: Acute renal failure type: unspecified Qualified Code(s): N17.9 - Acute kidney failure, unspecified Discharge ED Provider: Prema Schafer General Adult HPI General Chief complaint: Back Pain/Injury Stated complaint: post op 05/13, kidney pain, low bp Time Seen by Provider: 05/20/24 16:41 History of Present Illness HPI narrative: Patient presents for evaluation of subjective low blood pressure and acute left- sided back pain. Patient had a heart cath done last Monday by Dr. Ortega via wrist access. Patient has done well but has noticed that his blood pressure has trended down however he is only taking his antihypertensive when his blood pressure is high with low patient states that this morning his blood pressure was 91 systolic but actually has no symptoms of low blood pressure including dizziness syncope etc. Additionally patient's reports that he woke up this morning with acute left flank pain. He reports no nausea vomiting diarrhea dysuria or hematuria.. Related Data Home Medications Medication Instructions Recorded Confirmed empagliflozin 10 mg tablet 10 mg PO DAILY Diabetes 02/18/23 05/20/24 (Jardiance) gabapentin 300 mg capsule 900 mg PO HS Neuropathy 02/18/23 05/20/24 insulin aspart U-100 100 unit/mL 0 sliding scale dose continuous 02/18/23 05/20/24 subcutaneous solution (Novolog subcutaneous infusion DAILY U-100 Insulin aspart) Diabetes metformin 500 mg tablet,extended 500 mg PO BID Diabetes 02/18/23 05/20/24 release 24 hr sertraline 100 mg tablet 100 mg PO DAILY Depression 02/18/23 05/20/24 ticagrelor 90 mg tablet (Brilinta) 90 mg PO BID Blood Thinner 08/03/23 05/20/24 Previous Rx's Medication Instructions Recorded atorvastatin 40 mg tablet See Rx Instructions .Route 10/02/23 .COMPLEX #90 tabs bisoprolol fumarate 5 mg tablet 5 mg PO QDAY #30 tabs 11/30/23 aspirin 81 mg tablet,delayed See Rx Instructions .Route 01/08/24 release .COMPLEX #90 tabs Allergies Allergy/AdvReac Type Severity Reaction Status Date / Time Penicillins Allergy Unknown Verified 05/01/24 14:50 allergy reaction [facility] Disclaimer: The information contained in this section may have been updated after the patient was seen, as this information can be updated by other users. Medical History (Updated 05/20/24 @ 21:36 by Valentin Mccarthy APRN) Abnormal findings on diagnostic imaging of heart and coronary circulation Blood pressure instability Elevated blood pressure reading with diagnosis of hypertension FHx: cholecystectomy Depression Anxiety Angina pectoris Hyperlipidemia Hypertension Dyspnea Coronary artery disease Surgical History (Updated 05/20/24 @ 20:43 by Suzy Li RN) H/O right heart catheterization H/O hernia repair H/O elbow surgery H/O knee surgery Stented coronary artery Family History Other Family history of diabetes mellitus type II Family history of hyperlipidemia Family history of hypertension Family history of myocardial infarction Social History Smoking Status: Never smoker alcohol intake: never current occupational status: unemployed Travel in the last 8 weeks: None ROS Obtained: Yes Systems reviewed as appropriate & no additional complaints except as documented Physical Exam General General appearance: alert and in no apparent distress Respiratory Respiratory exam: Present normal lung sounds bilaterally Cardiovascular Cardiovascular exam: Present regular rate and normal rhythm Abdominal Exam Abdominal exam: Present soft, tenderness (Epigastric) and normal bowel sounds; Absent guarding, rebound or rigidity Extremities Exam Extremities exam: Present normal inspection and full ROM Back Exam Back exam: Present normal inspection, full ROM, tenderness and CVA tenderness (L); Absent CVA tenderness (R) Neurological Exam Neurological exam: Present alert, oriented X3 and CN II-XII intact Psychiatric Psychiatric exam: Present normal affect and normal mood Skin Skin exam: Present warm, dry and normal color Medical Decision Making Medical Records Medical records reviewed: Yes I reviewed the patient's medical records. Perico Inquiry Pt receiving controlled substance: No Vital Signs: 05/20/24 16:37 05/20/24 17:24 05/20/24 17:31 Temperature Temperature Source Pulse Rate 56 L 56 L Pulse Rate [Right Brachial] 88 Respiratory Rate 16 Blood Pressure 113/66 Blood Pressure [Right Arm] 106/71 L Blood Pressure Mean [Right Arm] 82 02 Sat by Pulse Oximetry 96 97 98 Oxygen Delivery Method Room Air Room Air 05/20/24 18:01 05/20/24 18:30 05/20/24 19:00 Temperature Temperature Source Pulse Rate 56 L 52 L 47 L Pulse Rate [Right Brachial] Respiratory Rate Blood Pressure 113/68 125/71 125/82 Blood Pressure [Right Arm] Blood Pressure Mean [Right Arm] 02 Sat by Pulse Oximetry 97 97 99 Oxygen Delivery Method Room Air Room Air 05/20/24 19:31 05/20/24 20:13 Temperature 98.3 F Temperature Source Oral Pulse Rate 54 L 58 L Pulse Rate [Right Brachial] Respiratory Rate 16 Blood Pressure 141/84 H 157/88 H Blood Pressure [Right Arm] Blood Pressure Mean [Right Arm] 02 Sat by Pulse Oximetry 99 Oxygen Delivery Method Room Air Lab Data Lab results reviewed: Yes I reviewed the patient's lab results. Lab Results 05/20/24 17:20: WBC 8.0, RBC 5.07, Hgb 14.6, Hct 45.5, MCV 89.7, MCH 28.8, MCHC 32.2, RDW 14.8, Plt Count 164, MPV 8.4, Neut % (Auto) 73.9, Lymph % (Auto) 15.2, Mcculloch % (Auto) 7.9, Eos % (Auto) 2.1, Baso % (Auto) 0.8, Neut # (Auto) 5.9, Lymph # (Auto) 1.2, M[place]ulloch # (Auto) 0.6, Eos # (Auto) 0.2, Baso # (Auto) 0.1, Sodium 131 L, Potassium 4.2, Chloride 97 L, Carbon Dioxide 27, Anion Gap 11.2, BUN 43 H, C reatinine 2.90 H, Estimated Creat Clear 44, Estimated GFR 23 L, Est GFR ( Amer) 28 L, Glucose 98, Calcium 9.8, Total Bilirubin 0.4, GGT 16, AST 31, ALT 25, Alkaline Phosphatase 94, Total Protein 6.8, Albumin 3.9, Globulin 2.9, Albumin/Globulin Ratio 1.3, Lipase 433 H 05/20/24 19:55: Urine Color Yellow, Urine Appearance Clear, Urine pH 6.0, Ur Specific [place] 1.010, Urine Protein Negative, Urine Glucose (UA) 2+, Urine Ketones Negative, Urine Blood Trace-i, Urine Nitrate Negative, Urine Bilirubin Negative, Urine Urobilinogen 0.2, Ur Leukocyte Esterase Negative, Urine RBC Occasional, Urine WBC 3-5, Ur Squamous Epith Cells 3-5, Urine Bacteria 1+, Hyaline Casts 3-5, Urine Mucus 1+ 05/20/24 17:20 05/20/24 17:20 Orders (Tests/Meds): ED MEDICATIONS Generic Name Dose Route Start Last Admin Trade Name Freq PRN Reason Stop Dose Admin Acetaminophen 650 mg 05/20/24 20:31 Acetaminophen 325mg Tab PO 06/19/24 20:30 Q4HP PRN Fever or Mild Pain (1-3) Ondansetron HCl 4 mg 05/20/24 20:31 Ondansetron 4mg/2ml Vial IV 06/19/24 20:30 Q8HP PRN Nausea Discontinued Medications Generic Name Dose Route Start Last Admin Trade Name Freq PRN Reason Stop Dose Admin Acetaminophen 1,000 mg 05/20/24 16:48 05/20/24 17:15 Acetaminophen 1,000mg/100ml Vial IV 05/20/24 16:49 1,000 mg ONCE ONE Administration Lactated Ringer's 1,000 mls @ 999 mls/hr 05/20/24 16:48 05/20/24 17:15 Lactated Ringer's 1000 Ml Bag IV 05/20/24 17:48 999 mls/hr .Q1H1M ONE Administration Lactated Ringer's 1,000 mls @ 999 mls/hr 05/20/24 18:09 05/20/24 18:14 Lactated Ringer's 1000 Ml Bag IV 05/20/24 19:09 999 mls/hr .Q1H1M ONE Administration Ketorolac Tromethamine 15 mg 05/20/24 16:48 05/20/24 17:15 Ketorolac 30mg/Ml Vial IV 05/20/24 16:49 15 mg ONCE ONE Administration ORDERS Category Date Time Status CT abdomen pelvis wo con Stat Cat Scan 05/20/24 16:48 Completed CBC w/Auto Diff [Complete Blood Count Auto Diff] Stat Lab 05/20/24 17:20 Completed CMP [Comprehensive Metabolic Panel] Stat Lab 05/20/24 17:20 Completed GGT [Gamma Glutamyl Transpeptidase] Stat Lab 05/20/24 17:20 Completed Lipase Stat Lab 05/20/24 17:20 Completed UA [Urinalysis and Microscopic] Stat Lab 05/20/24 19:55 Completed Medical Decision Narrative: In summary patient is a 53-year-old male who presents to the emergency department for evaluation of left flank pain and reported low blood pressure. Patient is hemodynamically stable on arrival upon arrival, afebrile. Physical exam is remarkable to CVA tenderness to percussion on the left along with epigastric abdominal pain. Differential diagnosis includes kidney stone versus pyelonephritis versus acute kidney injury versus acute pancreatitis etc. Initial workup will be conducted with hematologic labs CT scan abdomen pelvis without contrast urinalysis. Initial interventions include crystalloid bolus Toradol Tylenol. Initial workup reviewed by me shows that the patient has a significant acute kidney injury with impaired GFR and elevated creatinine. Patient's lipase is elevated and his CT scan abdomen pelvis shows findings consistent with acute pancreatitis. Upon repeat evaluation patient did report some moderate improvement in his symptoms . Given this I had interactive discussion about his findings and recommended admission which the patient agreed to. I had interactive discussion about patient management with hospital medicine and they have agreed to admit the patient for further evaluation and care Critical Care Critical Care Time Critical Care Time: No
--- NOTE | 2024-05-20 16:48 | CT_ITS ---
PROCEDURE INFORMATION: Exam: CT Abdomen And Pelvis Without Contrast Exam date and time: 05/20/2024 5:05 PM Age: 53 years old Clinical indication: Abdominal pain; Additional info: Acute left flank pain TECHNIQUE: Imaging protocol: Computed tomography of the abdomen and pelvis without contrast. Radiation optimization: All CT scans at this facility use at least one of these dose optimization techniques: automated exposure control; mA and/or kV adjustment per patient size (includes targeted exams where dose is matched to clinical indication); or iterative reconstruction. COMPARISON: CT ANGIO ABDOMEN PELVIS 08/28/2023 6:04 AM FINDINGS: Lungs: Nonspecific minor lingular streaky opacities suggest atelectasis or parenchymal scarring. Pleural spaces: There are no pleural effusions. Heart: The visualized portions of the heart are unremarkable. There is no evidence of pericardial fluid collections. Coronary arteries: There is severe atherosclerotic calcification of the coronary arteries. Liver: Evaluation of the liver is limited without contrast but the liver is within normal limits for this noncontrast study. Gallbladder and biliary ducts: There has been a cholecystectomy. Pancreas: There is mild proximal pancreatic and peripancreatic inflammatory stranding consistent with mild pancreatitis. No focal fluid collections to indicate pancreatitis. No pancreatic calcifications. No biliary or pancreatic ductal dilatation.. There is diffuse, benign fatty infiltration of the pancreas. Spleen: There is mild nonspecific splenomegaly. Spleen measures 14.7 cm in the dimension. Adrenal glands: Normal. No mass. Kidneys and ureters: There is mild bilateral nonspecific inflammatory perinephric stranding. Noncontrast images of the kidneys are otherwise within range of normal. No hydronephrosis. Stomach and bowel: The stomach is normal. The duodenum is unremarkable. Unopacified loops of small bowel within range of normal. Lack of gastrointestinal contrast limits evaluation of bowel. The colon is normal. Appendix: A normal appendix is identified. Intraperitoneal space: No evidence of intraperitoneal free air. There is no evidence of free intraperitoneal or pelvic fluid. Vasculature: The aorta and iliac arteries demonstrate moderate atherosclerotic calcification. There are a few benign phleboliths in the pelvis. Lymph nodes: There is no evidence of pathologic adenopathy. Urinary bladder: The bladder is normal. Reproductive: The prostate and seminal vesicles are normal. Bones/joints: There are mild degenerative changes of the hip joints. The thoracolumbar spine demonstrates mild degenerative changes at multiple levels. There is very slight retrolisthesis of L4 on L5 and L5 on S1. There is no evidence of acute fracture. Soft tissues: Unremarkable. Other findings: Evaluation is limited by the lack of intravenous and gastrointestinal contrast. IMPRESSION: 1. Study quality limited due to lack of intravenous and gastrointestinal contrast. 2. Proximal pancreatic in peripancreatic inflammation consistent with mild acute pancreatitis. 3. Mild splenomegaly.
[2024-05-20] MEDS: KETOROLAC 30MG/ML VIAL 15 MG IV (17:15)
[2024-05-20] MEDS: ACETAMINOPHEN 1,000MG/100ML VIAL 1000 MG IV (17:15)
[2024-05-20] MEDS: LACTATED RINGERS 1000ML 1,000 ML 999 ML IV ×2 (17:15→18:14)
--- NOTE | 2024-05-20 17:26 | PC.NURSE ---
pt aware of urine needed for collection. pt unable to provide sample at this time
[2024-05-20 17:36] LABS: Basophils # 0.1 K/mm3 (0-0.2); Basophils % 0.8 % (0.1-2.0); Eosinophils # 0.2 K/mm3 (0.0-0.4); Eosinophils % 2.1 % (0.1-12.0); Hematocrit 45.5 % (42.0-52.0); Hemoglobin 14.6 g/dL (14.1-18.0); Lymphocytes # 1.2 K/mm3 (0.7-4.5); Lymphocytes % 15.2 % (10-50); Mean Corpuscular HGB Conc 32.2 g/dL (31.8-35.4); Mean Corpuscular Hemoglobin 28.8 pg (27.0-31.2); Mean Corpuscular Volume 89.7 fl (80-94); Mean Platelet Volume 8.4 fl (7.4-10.4); Monocytes # 0.6 K/mm3 (0.1-1.0); Monocytes % 7.9 % (1.7-9.3); Neutrophils # 5.9 K/mm3 (1.8-7.8); Neutrophils % 73.9 % (37.0-80.0); Platelet Count 164 K/mm3 (142-424); Red Blood Count 5.07 M/mm3 (4.60-6.20); Red Cell Distribution Width 14.8 % (11.5-17.5)
[2024-05-20 17:37] LABS: Chloride 97 mmol/L (98-107); Sodium 131 mmol/L (136-145)
[2024-05-20 17:38] LABS: Potassium 4.2 mmoL/L (3.5-5.1)
[2024-05-20 17:40] LABS: Alanine Aminotransferase 25 U/L (12-78); Albumin Level 3.9 g/dl (3.5-5.0); Albumin/Globulin Ratio 1.3 (1.1-1.8); Alkaline Phosphatase 94 U/L (38-126); Anion Gap 11.2 mEq/L (5-15); Aspartate Amino Transferase 31 U/L (17-59); Bilirubin,Total 0.4 mg/dl (0.2-1.3); Blood Urea Nitrogen 43 mg/dl (9-20); Calcium 9.8 mg/dl (8.4-10.2); Carbon Dioxide 27 mmol/L (22.0-30.0); Creatinine Clearance Estimated 44 mL/min (50-200); Estimated Glomerular Filt Rate 23 ml/min (>60); GFR (African American) 28 ML/MIN (>60); Globulin 2.9 g/dL (1.3-3.2); Glucose 98 mg/dl (74-100); Lipase 433 U/L (23-300); Total Protein,Serum 6.8 g/dl (6.3-8.2)
--- NOTE | 2024-05-20 18:45 | PC.NURSE ---
rounded on patient, no needs at this time
--- NOTE | 2024-05-20 19:57 | PC.NURSE ---
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
[2024-05-20 20:09] LABS: Microscopic, Urine URINE MICROSCOPIC (MICROSCOPIC)
--- NOTE | 2024-05-20 20:12 | PC.NURSE ---
Report called to MALU Ahuja
[2024-05-20 20:15] LABS: Appearance,Urine CLEAR (Clear); Bilirubin,Urine Negative (Negative); Blood, Urine TRACE-I (Negative); Color,Urine YELLOW (Yellow); Glucose,Urine (UA) 2+ (Negative); Ketones,Urine Negative (Negative); Leukocyte Esterase,Urine Negative (Negative); Nitrate,Urine Negative (Negative); Protein,Urine Negative (Negative); Urobilinogen,Urine 0.2 EU/dl (0.2)
[2024-05-20 20:19] LABS: Gamma Glutamyl Transpeptidase 16 U/L (15-73)
--- NOTE | 2024-05-20 20:25 | PC.NURSE ---
pt arrived to floor at this time
[2024-05-20 20:33] LABS: Bacteria,Urine 1+ /lpf; Mucus,Urine 1+ /lpf; RBC,Urine Occasional #/hpf (0-3)
--- NOTE | 2024-05-20 20:57 | PC.NURSE ---
Pt dexcom reading glucose 94 currently. Spoke with EVAN Hanson about FS order, stated to DC FS order.
--- NOTE | 2024-05-20 21:21 | EXP.HP ---
History of Present Illness *Admission Date: 05/20/24 *Reason for visit:: Left upper flank and back pain with elevated lipase, increase in creatinine *History of present illness: The patient denies any type of injury but awoke today with left flank/back pain. He denies any nausea vomiting. He did have a cardiac cath approximately a week ago due to fluctuating blood pressures being as high as 200 systolic. He noted not having any problems after the procedure. He states that his medicines have remained unchanged but he does not take Ozempic which he is stopped more than a month ago. Patient continues to have mild upper right quadrant pain on palpation. Presently denies back pain [facility] Disclaimer: The information contained in this section may have been updated after the patient was seen, as this information can be updated by other users. Medical History (Updated 05/20/24 @ 21:36 by Valentin Mccarthy APRN) Abnormal findings on diagnostic imaging of heart and coronary circulation Blood pressure instability Elevated blood pressure reading with diagnosis of hypertension FHx: cholecystectomy Depression Anxiety Angina pectoris Hyperlipidemia Hypertension Dyspnea Coronary artery disease Surgical History (Updated 05/20/24 @ 20:43 by Suzy Li RN) H/O right heart catheterization H/O hernia repair H/O elbow surgery H/O knee surgery Stented coronary artery Family History Other Family history of diabetes mellitus type II Family history of hyperlipidemia Family history of hypertension Family history of myocardial infarction Social History Smoking Status: Never smoker alcohol intake: never current occupational status: unemployed Travel in the last 8 weeks: None Review of Systems Review of Systems Review of systems:: pertinent systems reviewed and negative unless documented below Review of systems (narrative): Patient is alert and oriented giving a very good history his is in the room Constitutional Comments: Patient denies any recent injuries or falls. Noted that he did have some problems last fall that he noted he did fall a few times Eyes Eyes: Reports system reviewed and no additional complaints, except as documented Comments: No signs of any yellowing of the eyes ENT Ears, Nose, Mouth, and Throat: Reports system reviewed and no additional complaints, except as documented *Cardiovascular Cardiovascular: Reports system reviewed and no additional complaints, except as documented Comments: Patient denies having any chest pain recently, or feeling any palpitations *Respiratory Respiratory: Reports system reviewed and no additional complaints, except as documented *Gastrointestinal Gastrointestinal: Reports system reviewed and no additional complaints, except as documented and Reports other Comments: Patient noted he had a normal bowel movement yesterday without any difficulty *Genitourinary Genitourinary: Reports system reviewed and no additional complaints, except as documented *Musculoskeletal Musculoskeletal: Reports system reviewed and no additional complaints, except as documented Integumentary/Breasts Skin/Breast: Reports system reviewed and no additional complaints, except as documented *Neurologic Neurologic: Reports system reviewed and no additional complaints, except as documented Psychiatric Psychiatric: Reports system reviewed and no additional complaints, except as documented Endocrine Endocrine: Reports system reviewed and no additional complaints, except as documented Hematologic/Lymphatic Hematologic/Lymphatic: Reports system reviewed and no additional complaints, except as documented Allergic/Immunologic Allergic/Immunologic: Reports system reviewed and no additional complaints, except as documented Meds Home Medications and Allergies Home Medications Medication Instructions Recorded Confirmed Type empagliflozin 10 mg tablet 10 mg PO DAILY Diabetes 02/18/23 05/20/24 History (Jardiance) gabapentin 300 mg capsule 900 mg PO HS Neuropathy 02/18/23 05/20/24 History insulin aspart U-100 100 unit/mL 0 sliding scale dose continuous 02/18/23 05/20/24 History subcutaneous solution (Novolog subcutaneous infusion DAILY U-100 Insulin aspart) Diabetes metformin 500 mg tablet,extended 500 mg PO BID Diabetes 02/18/23 05/20/24 History release 24 hr sertraline 100 mg tablet 100 mg PO DAILY Depression 02/18/23 05/20/24 History ticagrelor 90 mg tablet (Brilinta) 90 mg PO BID Blood Thinner 08/03/23 05/20/24 History atorvastatin 40 mg tablet See Rx Instructions .Route 10/02/23 05/20/24 Rx .COMPLEX #90 tabs bisoprolol fumarate 5 mg tablet 5 mg PO QDAY #30 tabs 11/30/23 05/20/24 Rx aspirin 81 mg tablet,delayed See Rx Instructions .Route 01/08/24 05/20/24 Rx release .COMPLEX #90 tabs New Prescriptions to Start Prescriptions: Allergies Allergy/AdvReac Type Severity Reaction Status Date / Time Penicillins Allergy Unknown Verified 05/01/24 14:50 allergy reaction Exam Data for Last 24 hours Vital signs and Labs for Last 24 Hours: Temp Pulse Resp BP Pulse Ox O2 Del Method 97.6 F 56 L 18 157/88 H 99 Room Air 05/20/24 20:25 05/20/24 20:25 05/20/24 20:25 05/20/24 20:25 05/20/24 20:25 05/20/24 21:00 Laboratory Results - last 24 hr 05/20/24 17:20: WBC 8.0, RBC 5.07, Hgb 14.6, Hct 45.5, MCV 89.7, MCH 28.8, MCHC 32.2, RDW 14.8, Plt Count 164, MPV 8.4, Neut % (Auto) 73.9, Lymph % (Auto) 15.2, [place] % (Auto) 7.9, Eos % (Auto) 2.1, Baso % (Auto) 0.8, Neut # (Auto) 5.9, Lymph # (Auto) 1.2, [place] # (Auto) 0.6, Eos # (Auto) 0.2, Baso # (Auto) 0.1, Sodium 131 L, Potassium 4.2, Chloride 97 L, Carbon Dioxide 27, Anion Gap 11.2, BUN 43 H, Creatinine 2.90 H, Estimated Creat Clear 44, Estimated GFR 23 L, Est GFR ( Amer) 28 L, Glucose 98, Calcium 9.8, Total Bilirubin 0.4, GGT 16, AST 31, ALT 25, Alkaline Phosphatase 94, Total Protein 6.8, Albumin 3.9, Globulin 2.9, Albumin/Globulin Ratio 1.3, Lipase 433 H 05/20/24 19:55: Urine Color Yellow, Urine Appearance Clear, Urine pH 6.0, Ur Specific [place] 1.010, Urine Protein Negative, Urine Glucose (UA) 2+, Urine Ketones Negative, Urine Blood Trace-i, Urine Nitrate Negative, Urine Bilirubin Negative, Urine Urobilinogen 0.2, Ur Leukocyte Esterase Negative, Urine RBC Occasional, Urine WBC 3-5, Ur Squamous Epith Cells 3-5, Urine Bacteria 1+, Hyaline Casts 3-5, Urine Mucus 1+ I & O for Last 24 hours: Intake & Output 05/17/24 05/18/24 05/19/24 05/20/24 23:59 23:59 23:59 23:59 Weight 106.254 kg Radiology Reports for the Last 24 Hours: Abdominal CT showed stranding around the pancreas and that there was no gallbladder present. Constitutional Constitutional: no acute distress Comments: Patient is lying comfortably on the stretcher having no difficulty at the present time *Routine HEENT Exam Head: Present normocephalic and atraumatic Eye: Present EOMI and PERRL ENT: Present mucous membranes moist and external ear normal *Routine Neck Exam Neck: Present supple and full ROM Routine Chest/Breast/Axilla Exam Comments: Normal exam of chest wall and upper back, no signs of flank tenderness during exam *Routine Respiratory Exam Respiratory: Present normal respiratory effort Comments: Respiratory exam totally normal equal expansion with clear lungs in all gross *Routine Cardiovascular Exam Cardiovascular: Present RRR, Normal S1 and Normal S2 Comments: Cardiac exam shows no edema in any of the extremities with brisk capillary refill *Routine Abdominal Exam Abdominal: Present soft and tenderness Comments: Exam of the abdomen shows no pain in the left upper quadrant but some pain in the right upper quadrant lower quadrants were normal to exam no masses felt no pulsations found *Routine Rectal Exam Rectal:: deferred *Routine Genitalia Exam Genitalia:: deferred *Routine Extremities Exam Comments: Totally normal exam of extremities good range of motion no edema Routine Back/Spine/Pelvis Exam Back/Spine: Present full ROM Comments: No CVA tenderness found upon exam. Back exam totally normal *Routine Skin Exam Skin: Present intact Comments: There was no signs of bruising or breakdown or rash on the person no signs of ecchymosis *Routine Neurological Exam Neurological: Present alert, oriented X3, CN II-XII intact and normal reflexes Routine Psychiatric Exam Psychiatric: Present normal affect and normal thought process Comments: Good historian and interacts well H&P: Result Impressions 1. Acute pancreatitis initiated with left back pain on waking up this morning 2. insulin-dependent diabetes mellitus in good control Imaging and Cardiology CT scan - abdomen: Status: image reviewed by me Additional comments: Evaluating the CT scan gallbladder is absent. Liver appears to be completely normal, the pancreas is easily visualized and does show some stranding around it, rest of the abdominal exam and kidneys appear to be normal Assessment and Plan *Assessment and plan (1) Acute renal failure: Start date: 05/20/24 Status: Acute Qualifiers: Acute renal failure type: unspecified Qualified Code(s): N17.9 - Acute kidney failure, unspecified Category: Medical Code(s): N17.9 - Acute kidney failure, unspecified (2) Acute pancreatitis: Start date: 05/20/24 Status: Acute Qualifiers: Acute pancreatitis complication: unspecified Pancreatitis type: unspecified pancreatitis type Qualified Code(s): K85.90 - Acute pancreatitis without necrosis or infection, unspecified Category: Medical Code(s): K85.90 - Acute pancreatitis without necrosis or infection, unspecified (3) Abnormal laboratory test: Start date: 05/20/24 Status: Acute Category: Medical Code(s): R89.9 - Unspecified abnormal finding in specimens from other organs, systems and tissues Plan 1. Acute pancreatitis, pain is minimal at this time patient has no nausea so we will continue clear liquids. Labs will be repeated to follow-up to see if this is worsening or improving. I have talked with the emergency room provider about this patient and we will admit for observation. Unsure of cause of acute injury and increased creatinine and decreased GFR. I have reviewed the CT scan myself seeing the stranding around the pancreas and reviewed all the labs including the GFR, creatinine, and activated clotting time. 2. Acute kidney failure, BUN has increased GFR is down. Unsure of mechanism of injury did have a cardiac cath a week ago. Will continue clear liquids and monitor the labs to see if there is improvement over the next 24 hours. 3, abnormal lab elevated clotting time. Patient does take an aspirin once a day there is no signs of abnormal bruising but will continue to monitor. Will add coagulation panel to his next labs. Labs to monitor this have been ordered to be drawn in the a.m. 4. Patient has a history of very blood pressures being as low as 80 systolic up to 200 systolic, he has been followed by his copy clerk and had a cardiac cath a week ago. At this time he is stable blood pressure is stable . Will reevaluate in the morning and after morning labs to see if cardiology needs to be notified.
[2024-05-21] VITALS: BP 136/78; PULSE 61; RESP 16; TEMP 36.3; O2SAT 99
[2024-05-21] MEDS: ONDANSETRON 4MG/2ML VIAL 4 MG IV ×2 (00:32→07:36)
[2024-05-21] MEDS: ACETAMINOPHEN 500MG TAB 1000 MG PO (01:20)
[2024-05-21] MEDS: KETOROLAC 30MG/ML VIAL 15 MG IV (01:20)
[2024-05-21 04:00] VITALS: BP 123/72; PULSE 60; RESP 16; TEMP 36.4; O2SAT 93
--- NOTE | 2024-05-21 05:46 | PC.NURSE ---
Pt is alert and oriented. Lung sounds clear. Bowel sounds active, tenderness to LUQ of abdomen. Post stent placement per patient one week ago. No skin assessment issues. Pt is independent in the room. Pt did complain of nausea one time, treated per jan. No vomiting. Complained of pain one time, treated per jan. Call light in reach.
[2024-05-21 06:05] LABS: Basophils # 0.1 K/mm3 (0-0.2); Basophils % 0.8 % (0.1-2.0); Eosinophils # 0.2 K/mm3 (0.0-0.4); Eosinophils % 2.7 % (0.1-12.0); Hematocrit 44.9 % (42.0-52.0); Hemoglobin 14.8 g/dL (14.1-18.0); Lymphocytes # 1.3 K/mm3 (0.7-4.5); Lymphocytes % 19.5 % (10-50); Mean Corpuscular Hemoglobin 29.5 pg (27.0-31.2); Mean Corpuscular Volume 89.6 fl (80-94); Mean Platelet Volume 8.4 fl (7.4-10.4); Monocytes # 0.5 K/mm3 (0.1-1.0); Monocytes % 8.4 % (1.7-9.3); Neutrophils # 4.4 K/mm3 (1.8-7.8); Neutrophils % 68.6 % (37.0-80.0); Platelet Count 137 K/mm3 (142-424); Red Blood Count 5.01 M/mm3 (4.60-6.20); Red Cell Distribution Width 15.1 % (11.5-17.5); White Blood Count 6.5 K/mm3 (4.8-10.8)
[2024-05-21 06:10] LABS: Chloride 102 mmol/L (98-107); Potassium 3.6 mmoL/L (3.5-5.1); Sodium 133 mmol/L (136-145)
[2024-05-21 06:12] LABS: Prothrombin Time 10.8 seconds (10.1-12.5)
[2024-05-21 06:13] LABS: Alanine Aminotransferase 20 U/L (12-78); Albumin Level 3.5 g/dl (3.5-5.0); Albumin/Globulin Ratio 1.3 (1.1-1.8); Alkaline Phosphatase 88 U/L (38-126); Anion Gap 10.6 mEq/L (5-15); Aspartate Amino Transferase 28 U/L (17-59); Bilirubin,Total 0.5 mg/dl (0.2-1.3); Blood Urea Nitrogen 41 mg/dl (9-20); Calcium 9.1 mg/dl (8.4-10.2); Carbon Dioxide 24 mmol/L (22.0-30.0); Creatinine Clearance Estimated 64 mL/min (50-200); Estimated Glomerular Filt Rate 35 ml/min (>60); GFR (African American) 43 ML/MIN (>60); Globulin 2.7 g/dL (1.3-3.2); Glucose 76 mg/dl (74-100); Total Protein,Serum 6.2 g/dl (6.3-8.2)
[2024-05-21 06:14] LABS: Magnesium 1.4 mg/dl (1.6-2.3)
[2024-05-21 06:15] LABS: Lactic Acid 0.6 mmol/L (0.7-2.1)
[2024-05-21 07:08] LABS: Lipase 397 U/L (23-300)
[2024-05-21 08:00] VITALS: BP 130/74; PULSE 58; RESP 16; TEMP 36.6; O2SAT 97
[2024-05-21 08:05] LABS: Lactate Dehydrogenase 171 U/L (313-618)
--- NOTE | 2024-05-21 08:10 | HMH.PHAINT1 ---
Pharmacy Intervention Comments: MEDICATION RECONCILIATION COMPLETED ON PATIENT USING EXTERNAL FILL HISTORY FROM PHARMACY AND PATIENT INTERVIEW. -JANET REED, TAMMYD
[2024-05-21] MEDS: 0.9 % SODIUM CHLORIDE 1000ML 1,000 ML 75 ML IV ×2 (10:30→23:48)
[2024-05-21] MEDS: MORPHINE 2MG/ML SYRINGE 1 MG IV ×2 (11:34→21:22)
[2024-05-21 12:00] VITALS: BP 120/65; PULSE 71; RESP 16; TEMP 36.6; O2SAT 91
--- OUTSIDE RECORDS SUMMARY | 2024-05-21 12:36 | XMS_ITS | Clinical Summary ---
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 Name Role Phone Giles DE LA CRUZ, Adryan Lucio [ ] Conditions or Problems Problem Name Problem Code Onset Date Status Entry Date Provider Comment Standard Description Annotate Diabetes mellitus, type II, uncontrolled E11.65 (ICD-10-CM ) 01/24 Active 01/27 Treva Patricia Type 2 diabetes mellitus with hyperglycemia 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, 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) L97.522 (ICD-10-CM ) 01/21 Inactive 01/21 Treva Gomez Non-pressure chronic ulcer of other part of left foot with fat layer exposed Problem excluded fro m report: 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, limited to breakdown of skin (E11.621) L97.521 (ICD-10-CM ) 01/21 Active 01/21 Georgina Ruth Non-pressure chronic ulcer of other part of left foot limited to breakdown of skin 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, 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) L97.522 (ICD-10-CM ) 01/21 Removed 01/21 Georgina Ruth Non-pressure chronic ulcer of other part of left foot with fat layer exposed Coronary artery disease (CAD) 51481622 (SNOMED CT) 01/21 Active 01/21 Georgina Ruth Coronary arteriosclerosis DM II with diabetic peripheral neuropathy 66025607 (SNOMED CT) 01/21 Active 01/21 Georgina Ruth Type 2 diabetes mellitus Benign Essential Hypertension 3468428 (SNOMED CT) 01/21 Active 01/21 Georgina Ruth Benign essential hypertension Wound infection/Ce llulitis of left foot L03.116 (ICD-10-CM ) 01/21 Active 01/21 Treva W Cellulitis of left lower limb MSSA infection 380084687 (SNOMED CT) 01/21 Active 01/21 Treva W Infection by methicillin sensitive Staphylococcus aureus Medications Medication Instructions Start Date Stop Date Generic Name NDC Provider KEFLEX 500 MG ORAL CAPSULE one po qid CEPHALEXIN 55627043746 Radha Tucker APRN CEFTRIAXONE SODIUM 2 GM SOLR Rocephin 2GM IV Q24hrs - INPAT CEFTRIAXONE SODIUM 65903339373 Silvia Trujillo RN CEPHALEXIN 500 MG CAPS Take 1 by mouth 4 times a day CEPHALEXIN 61217020498 Adryan Skaggs MD CEFTRIAXONE SODIUM 2 GM SOLR Rocephin 2GM IV Q24hrs - INPAT CEFTRIAXONE SODIUM 98396626036 Yuni Christine SERTRALINE HCL 100 MG TABS 2 tablets daily SERTRALINE HCL 46109398183 Macarena Maria PRILOSEC OTC 20 MG TBEC Take 1 tablet by mouth daily OMEPRAZOLE MAGNESIUM 05210958975 Macarena Maria OXYCODONE HCL 5 MG TABS Take one (1) tablet by mouth four times a day as needed OXYCODONE HCL 44693796675 Macarena Maria NOVOLOG 100 UNIT/ML SUBCUTANEOUS SOLUTION INSULIN ASPART 45347356839 Macarena Maria LIPITOR 40 MG TABS Take 1 tablet by mouth daily ATORVASTATIN CALCIUM 81356821814 Macarena Maria LANTUS 100 UNIT/ML SOLN INSULIN GLARGINE 21701181664 Macarena Maria JARDIANCE 25 MG TABS Take 1 tablet by mouth daily in the AM EMPAGLIFLOZIN 20471404606 Macarena Maria ADULT ASPIRIN REGIMEN 81 MG ORAL TABLET DELAYED RELEASE Take 1 tablet by mouth daily ASPIRIN 45896283991 Macarena Maria Medications Administered No information available. Allergies, Adverse Reactions, Alerts Allergy Name Reaction Description Start Date Severity Statu s Provider PENICILLIN G POTASSIUM Moderate Active Lynsey Welch Results Date Name Value Unit Range Flag Description Office Visit: room 3 MEDS REVIEW Done Documenta tion of current medications (procedure) ORALTOBACUSE Never Tobacco smoking status SMOK STATUS Former smoker Tob acco smoking status Plan of Care Type Date Detail Pending order STAT Labs Pending order Ceftriaxone Patient education Medications Patient education Ceftriaxone%20 (Injection)%20(Injectable) Procedures No information available. Vital Signs Date Name Value Unit Description BMI (Body Mass Index) 30.94 kg/m2 Bod y Mass Index (Ratio) Body Temperature 97.7 [degF] temperat ure E&M BP Diastolic 82 mm[Hg] blood pressu re, diastolic BP Systolic 120 mm[Hg] blood pressur e, systolic Heart Rate 80 /min pulse rate Respiratory Rate 16 /min respirat ory rate E&M Weight Measured 241 [lb_av] weight E& M Height 74 [in_us] height E&M Immunizations No information available. Advance Directives Directive Description Start Date NO LIVING WILL
--- OUTSIDE RECORDS SUMMARY | 2024-05-21 12:36 | XMS_ITS | Continuity of Care Document ---
Author Name Unknown Address [address] [place] [phone] Organization [facility] Phone Care Team Providers Care Corduroy Cutting Supervisor Name Role Phone SAMEER MONTESINOS V Unavailable SAMEER MONTESINOS V Primary Attending SAMEER MONTESINOS V Admitting ADRIAN DELACRUZ Primary Care ALLERGIES AND ADVERSE REACTIONS ALLERGIES AND ADVERSE REACTIONS Code System Allergy Substance Adverse Reaction Date Reaction (Severity) Comment Status Reported By Updated By 7984 RXNorm Penicillin Rash active IOP220 7 on January 11, 2024 1:11:10 PM [facility] FAMILY HISTORY RELATION: Father Status: Cause of : COVID-19 Age at : Unknown SNOMED-CT Diagnosis Age At Onset [id number] Diabetes mellitus [id number] Chronic obstructive lung disease RELATION: Mother Status: Cause of : Unknown Age at : Unknown SNOMED-CT Diagnosis Age At Onset [id number] Hypertensive disorder [id number] Kidney disease [id number] Lupus erythematosus RESULTS Patient: STEPH JOHNSON Date of : 1970 LABORATORY RESULTS Information is not available LABORATORY NARRATIVE RESULTS Information is not available RADIOLOGY RESULTS ORDER 100: SHLDR 3V LT (LOIN C: 24328-8) ORDER DATE: January 11, 2024 1:00:00 PM [facility] PERFORMING LAB: [address] [id number] Final Result Date: January 11, 2024 1:23:[address] [place] [address] Name: ALEX CHOI Exam Date: 01/11/2024 : 1970 Age 53 years Gender: M Physician: Facility: [facility] Facility HSV: Outpatient Exam: SHLDR 3V LT LEFT SHOULDER HISTORY:Shoulder pain FINDINGS: Three views show no evidence of an acute, displaced fracture or dislocation of the visualized bony architecture. There is minimal degenerative change. IMPRESSION: No acute bony abnormality. Consider MRI if pain persists. Films reviewed , interpreted and dictated by Dr. Dominguez. Transcribed by Prosper Friedman PA-C. Dictated By: MATIAS DOMINGUEZ Transcribed By: MATIAS DOMINGUEZ Transcribed On: 01/11/2024 8:23 AM Electronically signed by: MATIAS DOMINGUEZ 01/11/2024 Thank you for referring ALEX CHOI to [facility]. Legally authenticated by POPE MATIAS Mclaughlin DO 2024-01-11 08:23:59 PATHOLOGY NARRATIVE RESULTS Information is not available MICROBIOLOGY RESULTS No Micro Labs/Results Exist for Patient BLOOD ADMIN RESULTS Information is not available MEDICATIONS HOME MEDICATIONS Status RXNORM Medication Dose Route Frequency Dates Comments R eported By Updated By Drug Treatment Unknown DISCHARGE MEDICATIONS Status RXNORM Medication Dose Route Frequency Dates Comments Physic cristobal Updated By No Discharge Medication Info rmation Available INPATIENT MEDICATIONS Status RXNORM Medication Dose Route Frequency Rate Quantity Dates Comments Physician Updated By No Inpatient Medication Info rmation Available SOCIAL HISTORY SOCIAL HISTORY SNOMED-CT Social History Element Description Effective Dates Offered Cessation Comment UpdatedBy [id number] Historical Tobacco smoking status Former Smoker End: April 20, 2001 4:00:00 AM [facility] [id number] on April 20, 2021 3:37:12 PM [facility] [id number] Historical Tobacco smoking status Never Smoked Not Applicable [id number] on October 20, 2015 3:01:42 AM [facility] SOCIAL HISTORY - Gender Sex: Male SOCIAL HISTORY - Sexual Behavior Sexual Orientation Gender Identity SNOMED-CT Description SNO MED -CT Description Activity Level No of Partners Partner Type UpdatedBy Information is not available VITAL SIGNS PATIENT VITAL SIGNS This section displays the mo st recent value for each vital sign as of January 15, 2024 6:20:29 PM [facility] Loinc Code Vital Sign Activity Date Result Updated By 8310-5 Body temperature January 11 12:58:32 PM [place] 98.6 [degF] [id number] on January 12, 2024 1:23:50 PM [facility] 19432-5 Body weight Measured February 16 , 2024 1:23:52 PM UTC 103.873 kg (229.0 lb) [id number] on January 12, 2024 1:23:52 PM UTC 8462-4 Diastolic blood pressure January 11, 2024 12:58:32 PM UTC 69.0 mm[Hg] [id number] on January 12, 2024 1:23:50 PM UTC 8867-4 Heart rate January 11 12:58:32 PM UTC 73 /min [id number] on January 12, 2024 1:23:[place] [address]-3 Oxygen saturation in Arterial blood by Pulse oximetry January 11, 2024 12:58:32 PM UTC 99.0 % [id number] on January 12, 2024 1:23:50 PM UT 9279-1 Respiratory rate January 11 12:58:32 PM UTC 16 /min [id number] on January 12, 2024 1:23:50 PM UT 8480-6 Systolic blood pressure January 11, 2024 12:58:32 PM UTC 132.0 mm[Hg] [id number] on January 12, 2024 1:23:50 PM [place] PEDIATRIC GROWTH CHART - VITAL SIGNS This section displays Head C ircumference Percentile, Weight for Length Percentile and BMI Percentile Loinc Code Pediatric Measure Age (Months) Result Updat ed By No Pediatric Growth Chart Pe rcentile Information Available. HEALTH CONCERNS Problems Concern Status Health Concern problem infor mation not available. Smoking Status Status Years Used Consumed packs p er day Health Concern smoking histo ry information not available. Family History Concern Status Health Concern family histor y information not available. ENCOUNTERS ENCOUNTER INFORMATION Reason for Visit FALL INJURY Admission January 11, 2024 12:46:[address] [address] Discharge January 11, 2024 1:23:00 PM [facility] DISCHARGED TO HOME OR SELF CARE ENCOUNTER DIAGNOSES Notes information is not vera ilable. Code System Diagnosis Onset Date Diagnosis information is not available. ABSTRACT DIAGNOSES Code System Diagnosis Updated By M25.512 ICD10 PAIN IN LEFT SHOULDER [id number] 1 on January 15, 2024 11:37:43 AM [place] S40.012A ICD10 CONTUSION OF LEF T SHOULDER, INITIAL ENCOUNTER [id number] on January 15, 2024 11:37:43 AM [place] W01.0XXA ICD10 FALL ON SAME LEV EL FROM SLIPPING, TRIPPING AND STUMBLING WITHOUT SUBSEQUENT STRIKING AGAINST OBJECT, INITIAL ENCOUNTER [id number] on January 15, 2024 11:37:43 AM [place] I10 ICD10 ESSENTIAL (PRIMARY) HYPERTEN DONG [id number] on January 15, 2024 11:37:43 AM UT E11.40 ICD10 TYPE 2 DIABETES MELLITUS WITH DIABETIC NEUROPATHY, UNSPECIFIED [id number] on January 15, 2024 11:37:43 AM UT I25.10 ICD10 ATHEROSCLEROTIC HEART DISEASE OF [place] CORONARY ARTERY WITHOUT ANGINA PECTORIS [id number] on January 15, 2024 11:37:43 AM UT Z95.818 ICD10 PRESENCE OF OTHE R CARDIAC IMPLANTS AND GRAFTS [id number] on January 15, 2024 11:37:43 AM UT Z88.0 ICD10 ALLERGY STATUS TO PENICILLIN [id number] on January 15, 2024 11:37:43 AM [facility] CARE TEAM Care Corduroy Cutting Supervisor Role SAMEER MONTESINOS Referring SAMEER MONTESINOS Primary Attending SAMEER MONTESINOS Admitting ADRIAN DELACRUZ Primary Care CARE TEAM CARE drying frame operator Role on Team Status Start Date End Date Update d By JAGUAR SOARES Referring normal January 11, 2024 5:00:00 AM [facility] January 11, 2024 5:00:00 AM [place] [id number] on January 11, 2024 1:38:12 PM [facility] JAGUAR SOARES Attending normal January 11, 2024 5:00:00 AM [facility] January 11, 2024 5:00:00 AM [place] [id number] on January 11, 2024 1:38:12 PM [facility] JAGUAR SOARES Admitting normal January 11, 2024 5:00:00 AM [facility] January 11, 2024 5:00:00 AM [place] [id number] on January 11, 2024 1:38:12 PM [facility] NUBIA SOARES PCP normal January 11, 2024 12:46:59 PM [facility] January 11, 2024 5:00:00 AM UT [id number] on January 11, 2024 1:38:12 PM [facility]
--- OUTSIDE RECORDS SUMMARY | 2024-05-21 12:36 | XMS_ITS | Continuity of Care Document ---
Author Name Unknown Address [address], [place] [id number] Organization [facility] Phone Care Team Providers Care Desk Officer Name Role Phone SAMEER MONTESINOS V Unavailable SAMEER MONTESINOS V Primary Attending SAMEER MONTESINOS V Admitting ADRIAN DELACRUZ Primary Care ALLERGIES AND ADVERSE REACTIONS ALLERGIES AND ADVERSE REACTIONS Code System Allergy Substance Adverse Reaction Date Reaction (Severity) Comment Status Reported By Updated By 7984 RXNorm Penicillin Rash active VHI127 7 on January 11, 2024 1:11:10 PM [facility] FAMILY HISTORY RELATION: Father Status: Cause of : COVID-19 Age at : Unknown SNOMED-CT Diagnosis Age At Onset [id number] Diabetes mellitus [id number] Chronic obstructive lung disease RELATION: Mother Status: Cause of : Unknown Age at : Unknown SNOMED-CT Diagnosis Age At Onset [id number] Hypertensive disorder 44600435 Kidney disease [id number] Lupus erythematosus TREATMENT PLAN DISCHARGE MEDICATIONS Status RXNORM Medication Dose Route Frequency Dates Comments U pdated By Patient discharge medication information is not available. PATIENT OPEN ORDERS Code System Description Frequency Occurrences Priority [place] [address] [facility] Shoulder - left X-ray 3 views ONE TIME 0 Stat January 11, 2024 1:00:00 PM [facility] JAGUAR ESTRELLA V [id number] on January 11, 2024 1:10:00 PM [facility] SCHEDULED PROCEDURES Code System Description Status Scheduled Date Upd ated By Patient scheduled procedure information is not available. MEDICATIONS HOME MEDICATIONS Status RXNORM Medication Dose [...] Description Effective Dates Offered Cessation Comment UpdatedBy [id number] Historical Tobacco smoking status Former Smoker End: April 20, 2001 4:00:00 AM [place] [id number] on April 20, 2021 3:37:12 PM [facility] [id number] Historical Tobacco smoking status Never Smoked Not Applicable [id number] on October 20, 2015 3:01:42 AM [facility] SOCIAL HISTORY - Gender Sex: Male SOCIAL HISTORY - Sexual Behavior Sexual Orientation Gender Identity SNOMED-CT Description SNO MED -CT Description Activity Level No of Partners Partner Type UpdatedBy Information is not available VITAL SIGNS PATIENT VITAL SIGNS This section displays the mo st recent value for each vital sign as of January 11, 2024 2:23:07 PM [facility] Loinc Code Vital Sign Activity Date Result Updated By 8310-5 Body temperature January 11 12:58:00 PM UT 98.6 [degF] [id number] on January 11, 2024 1:01:39 PM [facility] 8462-4 Diastolic blood pressure January 11, 2024 12:58:00 PM UTC 69.0 mm[Hg] [id number] on January 11, 2024 1:01:39 PM [facility] 8867-4 Heart rate January 11 12:58:00 PM UTC 73 /min [id number] on January 11, 2024 1:01:39 PM [facility] 21529-6 Oxygen saturation in Arterial blood by Pulse oximetry January 11, 2024 12:58:00 PM UT 99.0 % [id number] on January 11, 2024 1:01:39 PM [facility] 9279-1 Respiratory rate January 11 12:58:00 PM UTC 16 /min [id number] on January 11, 2024 1:01:39 PM [place] 8480-6 Systolic blood pressure January 11, 2024 12:58:00 PM UTC 132.0 mm[Hg] [id number] on January 11, 2024 1:01:39 PM [facility] PEDIATRIC GROWTH CHART - VITAL SIGNS This [...] INJURY Admission January 11, 2024 12:46:00 PM [place] [address] [address] Discharge January 11, 2024 1:23:00 PM [facility] DISCHARGED TO HOME OR SELF CARE ENCOUNTER DIAGNOSES Notes information is not vera ilable. Code System Diagnosis Onset Date Diagnosis information is not available. ABSTRACT DIAGNOSES Code System Diagnosis Updated By Abstract Diagnosis informati on is not available. CARE TEAM Care Desk Officer Role SAMEER MONTESINOS Referring SAMEER MONTESINOS Primary Attending SAMEER MONTESINOS Admitting ADRIAN DELACRUZ Primary Care CARE TEAM CARE siene maker Role on Team Status Start Date End Date Update d By JAGUAR SOARES Referring normal January 11, 2024 5:00:00 AM [facility] January 11, 2024 1:23:00 PM [facility] [id number] on January 11, 2024 1:38:12 PM [facility] JAGUAR SOARES Attending normal January 11, 2024 5:00:00 AM [facility] January 11, 2024 1:23:00 PM [facility] [id number] on January 11, 2024 1:38:12 PM [facility] JAGUAR SOARES Admitting normal January 11, 2024 5:00:00 AM [facility] January 11, 2024 1:23:00 PM [facility] [id number] on January 11, 2024 1:38:12 PM [facility] NUBIA SOARES PCP normal January 11, 2024 12:46:59 PM [facility] January 11, 2024 1:23:00 PM [facility] [id number] on January 11, 2024 1:38:12 PM [facility]
[2024-05-21] MEDS: PROMETHAZINE HCL 25MG/ML 1ML VIAL 12.5 MG IV ×2 (13:11→21:23)
[2024-05-21] MEDS: SODIUM CHLORIDE 0.9% 25ML BAG 25 ML IV ×2 (13:12→21:23)
[2024-05-21 16:00] VITALS: BP 124/68; PULSE 74; RESP 16; TEMP 36.7; O2SAT 94
--- NOTE | 2024-05-21 16:10 | PC.NURSE ---
pt remains on clear liquid diet. c/o nausea x2 and pain x1 in the LUQ, both treated per mar with relief. cb within reach no needs or questions at this time.
--- NOTE | 2024-05-21 17:23 | P.PN_ITS ---
Subjective *Date: 05/21/24 *Time: 17:23 Interval history: patient is seen at bedside, complained of abdominal pain overnight Exam Data for Last 24 hours Vital signs and Labs for Last 24 Hours: Temp Pulse Resp BP Pulse Ox O2 Del Method 98.1 F 74 16 124/68 94 L Room Air 05/21/24 16:00 05/21/24 16:00 05/21/24 16:00 05/21/24 16:00 05/21/24 16:00 05/21/24 17:00 Laboratory Results - last 24 hr 05/20/24 17:20: WBC 8.0, RBC 5.07, Hgb 14.6, Hct 45.5, MCV 89.7, MCH 28.8, MCHC 32.2, RDW 14.8, Plt Count 164, MPV 8.4, Neut % (Auto) 73.9, Lymph % (Auto) 15.2, [place] % (Auto) 7.9, Eos % (Auto) 2.1, Baso % (Auto) 0.8, Neut # (Auto) 5.9, Lymph # (Auto) 1.2, [place] # (Auto) 0.6, Eos # (Auto) 0.2, Baso # (Auto) 0.1, Sodium 131 L, Potassium 4.2, Chloride 97 L, Carbon Dioxide 27, Anion Gap 11.2, BUN 43 H, Creatinine 2.90 H, Estimated Creat Clear 44, Estimated GFR 23 L, Est GFR ( Amer) 28 L, Glucose 98, Calcium 9.8, Total Bilirubin 0.4, GGT 16, AST 31, ALT 25, Alkaline Phosphatase 94, Total Protein 6.8, Albumin 3.9, Globulin 2.9, Albumin/Globulin Ratio 1.3, Lipase 433 H 05/20/24 19:55: Urine Color Yellow, Urine Appearance Clear, Urine pH 6.0, Ur Specific [place] 1.010, Urine Protein Negative, Urine Glucose (UA) 2+, Urine Ketones Negative, Urine Blood Trace-i, Urine Nitrate Negative, Urine Bilirubin Negative, Urine Urobilinogen 0.2, Ur Leukocyte Esterase Negative, Urine RBC Occasional, Urine WBC 3-5, Ur Squamous Epith Cells 3-5, Urine Bacteria 1+, Hyaline Casts 3-5, Urine Mucus 1+ 05/21/24 05:41: WBC 6.5, RBC 5.01, Hgb 14.8, Hct 44.9, MCV 89.6, MCH 29.5, MCHC 33.0, RDW 15.1, Plt Count 137 L, MPV 8.4, Neut % (Auto) 68.6, Lymph % (Auto) 19.5, [place] % (Auto) 8.4, Eos % (Auto) 2.7, Baso % (Auto) 0.8, Neut # (Auto) 4.4, Lymph # (Auto) 1.3, [place] # (Auto) 0.5, Eos # (Auto) 0.2, Baso # (Auto) 0.1, PT 10.8, INR 1.00, Sodium 133 L, Potassium 3.6, Chloride 102, Carbon Dioxide 24, Anion Gap 10.6, BUN 41 H, Creatinine 2.00 H D, Estimated Creat Clear 64, Estimated GFR 35 L, Est GFR ( Amer) 43 L D, Glucose 76 D, Lactate 0.6 L, Calcium 9.1, Magnesium 1.4 L, Total Bilirubin 0.5, AST 28, ALT 20, Alkaline Phosphatase 88, Lactate Dehydrogenase 171 L, Total Protein 6.2 L, Albumin 3.5 D , Globulin 2.7, Albumin/Globulin Ratio 1.3, Lipase 397 H I & O for Last 24 hours: Intake & Output 05/18/24 05/19/24 05/20/24 05/21/24 23:59 23:59 23:59 23:59 Intake Total 950 / 950 Output Total 0 / 0 Balance 950 / 950 Weight 106.254 kg 106.282 kg Constitutional Constitutional: no acute distress *Routine HEENT Exam Head: Present normocephalic Eye: Present EOMI and PERRL ENT: Present mucous membranes moist *Routine Neck Exam Neck: Present supple; Absent lymphadenopathy *Routine Respiratory Exam Respiratory: Present CTA bilaterally *Routine Cardiovascular Exam Cardiovascular: Present RRR *Routine Abdominal Exam Abdominal: Present soft, normoactive bowel sounds and tenderness *Routine Extremities Exam Extremities: Absent cyanosis, clubbing or edema *Routine Skin Exam Skin: Present warm; Absent rash *Routine Neurological Exam Neurological: Present alert and oriented X3 Assessment and Plan *Assessment and plan (1) Acute renal failure: Start date: 05/20/24 Status: Acute Qualifiers: Acute renal failure type: unspecified Qualified Code(s): N17.9 - Acute kidney failure, unspecified Category: Medical Code(s): N17.9 - Acute kidney failure, unspecified (2) Acute pancreatitis: Start date: 05/20/24 Status: Acute Qualifiers: Acute pancreatitis complication: unspecified Pancreatitis type: unspecified pancreatitis type Qualified Code(s): K85.90 - Acute pancreatitis without necrosis or infection, unspecified Category: Medical Code(s): K85.90 - Acute pancreatitis without necrosis or infection, unspecified (3) Abnormal laboratory test: Start date: 05/20/24 Status: Acute Category: Medical Code(s): R89.9 - Unspecified abnormal finding in specimens from other organs, systems and tissues Plan Acute pancreatitis, pain control advance diet as tolerated, currently on CLD IV fluids discussed plan of care with family at bedside Acute kidney failure, BUN has increased GFR is down monitor Cr, improving continue IVF DM - monitor POC glucose, it is on the lower end DVT PPx - Heparin
[2024-05-21 20:00] VITALS: BP 121/71; PULSE 61; RESP 16; TEMP 36.6; O2SAT 97
[2024-05-22] VITALS: BP 132/72; PULSE 61; RESP 16; TEMP 36.7; O2SAT 97
[2024-05-22 04:00] VITALS: BP 121/63; PULSE 68; RESP 17; TEMP 36.4; O2SAT 98; BMI 29.5
[2024-05-22 08:00] VITALS: BP 126/84; PULSE 72; RESP 18; TEMP 36.4; O2SAT 92
[2024-05-22] MEDS: HEPARIN SODIUM 5,000 UNIT/ML VIAL 5000 UNIT SQ (08:26)
[2024-05-22 11:25] LABS: Chloride 103 mmol/L (98-107)
[2024-05-22 11:26] LABS: Potassium 4.4 mmoL/L (3.5-5.1); Sodium 138 mmol/L (136-145)
[2024-05-22 11:29] LABS: Anion Gap 15.4 mEq/L (5-15); Blood Urea Nitrogen 24 mg/dl (9-20); Calcium 9.3 mg/dl (8.4-10.2); Carbon Dioxide 24 mmol/L (22.0-30.0); Creatinine Clearance Estimated 105 mL/min (50-200); Estimated Glomerular Filt Rate 63 ml/min (>60); GFR (African American) 77 ML/MIN (>60); Glucose 104 mg/dl (74-100)
--- NOTE | 2024-05-22 13:18 | P.DS_ITS ---
General Admission date:: 05/20/24 Discharge date: 05/22/24 HPI HPI HPI: The patient denies any type of injury but awoke today with left flank/back pain. He denies any nausea vomiting. He did have a cardiac cath approximately a week ago due to fluctuating blood pressures being as high as 200 systolic. He noted not having any problems after the procedure. He states that his medicines have remained unchanged but he does not take Ozempic which he is stopped more than a month ago. Patient continues to have mild upper right quadrant pain on palpation. Presently denies back pain Hospital Course Hospital Course Hospital Course: On the date of discharge, the patient reported feeling stable. The patient was found not to be in any acute distress, and no new abnormalities on physical examination. Further, the patient expressed appropriate understanding of, and agreement with, the discharge recommendations, medications, and plan. Time spent 37 mins Acute pancreatitis, improved, tolerating diet and patient is requesting to be discharged. Acute kidney injury has improved Exam Data for Last 24 hours Vital signs and Labs for Last 24 Hours: Temp Pulse Resp BP Pulse Ox O2 Del Method 97.6 F 72 18 126/84 92 L Room Air 05/22/24 08:00 05/22/24 08:00 05/22/24 08:00 05/22/24 08:00 05/22/24 08:00 05/22/24 12:26 Laboratory Results - last 24 hr 05/22/24 11:00: Sodium 138, Potassium 4.4 D, Chloride 103, Carbon Dioxide 24, Anion Gap 15.4 H, BUN 24 H D, Creatinine 1.20 D, Estimated Creat Clear 105, Estimated GFR 63, Est GFR ( Amer) 77 D, Glucose 104 H, Calcium 9.3 I & O for Last 24 hours: Intake & Output 05/19/24 05/20/24 05/21/24 05/22/24 23:59 23:59 23:59 23:59 Intake Total 1370 / 2170 1340 / 1340 Output Total 0 / 450 450 / 450 Balance 1370 / 1720 890 / 890 Weight 106.254 kg 106.282 kg 104.462 kg Constitutional Constitutional: no acute distress *Routine HEENT Exam Head: Present normocephalic Eye: Present EOMI and PERRL ENT: Present mucous membranes moist *Routine Neck Exam Neck: Present supple; Absent lymphadenopathy *Routine Respiratory Exam Respiratory: Present CTA bilaterally *Routine Cardiovascular Exam Cardiovascular: Present RRR *Routine Abdominal Exam Abdominal: Present soft and normoactive bowel sounds; Absent tenderness *Routine Extremities Exam Extremities: Absent cyanosis, clubbing or edema *Routine Skin Exam Skin: Present warm; Absent rash *Routine Neurological Exam Neurological: Present alert and oriented X3 Results Data Completed and Pending Labs on day of discharge: Labs from last 24 hours 05/22/24 11:00 Sodium 138 Potassium 4.4 D Chloride 103 Carbon Dioxide 24 Anion Gap 15.4 H BUN 24 H D Creatinine 1.20 D Estimated Creat Clear 105 Estimated GFR 63 Est GFR ( Amer) 77 D Glucose 104 H Calcium 9.3 DS: Diagnosis Discharge Diagnosis (1) Acute renal failure: Status: Acute Code(s): N17.9 - Acute kidney failure, unspecified Qualifiers: Acute renal failure type: unspecified Qualified Code(s): N17.9 - Acute kidney failure, unspecified (2) Acute pancreatitis: Status: Acute Code(s): K85.90 - Acute pancreatitis without necrosis or infection, unspecified Qualifiers: Acute pancreatitis complication: unspecified Pancreatitis type: u nspecified pancreatitis type Qualified Code(s): K85.90 - Acute pancreatitis without necrosis or infection, unspecified (3) Abnormal laboratory test: Status: Acute Code(s): R89.9 - Unspecified abnormal finding in specimens from other organs, systems and tissues Meds Home Medications and Allergies Home Medications Medication Instructions Recorded Confirmed Type empagliflozin 10 mg tablet 10 mg PO DAILY 02/18/23 05/21/24 History (Jardiance) gabapentin 300 mg capsule 900 mg PO HS 02/18/23 05/21/24 History insulin aspart U-100 100 unit/mL 0 sliding scale dose continuous 02/18/23 05/21/24 History subcutaneous solution (Novolog subcutaneous infusion DAILY U-100 Insulin aspart) Diabetes sertraline 100 mg tablet 200 mg PO DAILY 02/18/23 05/21/24 History ticagrelor 90 mg tablet (Brilinta) 90 mg PO BID 08/03/23 05/21/24 History aspirin 81 mg tablet,delayed 81 mg PO DAILY 05/21/24 05/21/24 History release atorvastatin 40 mg tablet 40 mg PO DAILY 05/21/24 05/21/24 History bisoprolol fumarate 5 mg tablet 5 mg PO DAILY 05/21/24 05/21/24 History metformin 500 mg tablet,extended 500 mg PO BID 05/21/24 05/21/24 History release 24 hr primidone 50 mg tablet 50 mg PO NEEDED PRN Tremors 05/21/24 05/21/24 History New Prescriptions to Start Prescriptions: Allergies Allergy/AdvReac Type Severity Reaction Status Date / Time Penicillins Allergy Unknown Verified 05/01/24 14:50 allergy reaction Discharge Plan Disposition Patient Disposition: Home, Self-Care Condition: Fair Discharge Order Discharge Orders: Discharge Order (Routine); Ordered 05/22/24 Ordered By: Eduardo Raphael Follow up Plan Follow up with: Quyen Vincent [Primary Care Provider] - 05/29/24 10:00 am Prescriptions/Medication Reconciliation: Continued metformin 500 mg tablet extended release 24 hr 500 mg PO BID Patient Comments: TAKE 1 TABLET BY MOUTH TWICE DAILY WITH FOOD atorvastatin 40 mg tablet 40 mg PO DAILY aspirin 81 mg tablet,delayed release (DR/EC) 81 mg PO DAILY bisoprolol fumarate 5 mg tablet 5 mg PO DAILY primidone 50 mg tablet 50 mg PO NEEDED PRN (Reason: Tremors) Patient Comments: TAKE 1 TABLET BY MOUTH EVERY DAY FOR 30 DAYS sertraline 100 mg tablet 200 mg PO DAILY insulin aspart U-100 [Novolog U-100 Insulin aspart] 100 unit/mL solution 0 sliding scale dose continuous subcutaneous infusion DAILY Rx Instructions: USE UP TO 125 UNITS DAILY VIA INSULIN PUMP DIRECTED gabapentin 300 mg capsule 900 mg PO HS Patient Comments: TAKE 3 CAPSULES BY MOUTH EVERY DAY AT BEDTIME Jardiance 10 mg tablet 10 mg PO DAILY Patient Comments: TAKE 1 TABLET BY MOUTH DAILY. DOSE DECREASE Brilinta 90 mg Tablet 90 mg PO BID Problem Reconciliation Problems Reviewed?: Yes Patient Discharge Instructions ACTIVITY: Ambulate as tolerated DIET: continue same diet Patient Instructions: DI for Pancreatitis, DI for Acute Kidney Injury Providers Primary Care Provider: Quyen Vincent Admit Provider: Olaf Johnson Attending Provider: Olaf Johnson
== END 2024-05-22 13:43 | disposition home or self-care (01) | DRG 439 ==
LOC: ER 19:58 → 2ND 05-21 01:16
PROVIDERS: Internal Medicine; Nurse Practitioner Family; Physician Assistant; Admitting Provider Internal Medicine Adolescent Medicine; Emergency Provider Emergency Medicine; PCP Family Medicine; Visit Provider Internal Medicine Adolescent Medicine
DX: K85.90 Acute pancreatitis without necrosis or infection, unspecified (principal); N17.9 Acute kidney failure, unspecified; F32.A Depression, unspecified; F41.9 Anxiety disorder, unspecified; E78.5 Hyperlipidemia, unspecified; I10 Essential (primary) hypertension; I25.10 Atherosclerotic heart disease of native coronary artery without angina pectoris
CPT/HCPCS: 36415; 74176; 80048; 80053; 81001; 82977; 83605; 83615; 83690; 83735; 85025; 85610; 99285; J0131; J1644; J1885; J2270; J2405; J2550; J7120

== ENCOUNTER 2024-06-06 13:59 | Outpatient (RCR) | payer BC, SELFPAY | END 2024-09-02 11:00 | disposition home or self-care (01) | LOC: PT 13:59 | PROVIDERS: Visit Provider Internal Medicine | DX: Z95.5 Presence of coronary angioplasty implant and graft (principal); Z98.890 Other specified postprocedural states | CPT/HCPCS: 93798 ==

== ENCOUNTER 2024-07-02 14:07 | Outpatient (CLI) | payer BC, SELFPAY ==
--- NOTE | 2024-07-02 | US_ITS ---
FINAL REPORT CLINICAL HISTORY: CLAUDICATION,EX SMOKER,HX TIA,HTN,HLD,CAD,REST PAIN,DM COMPARISON: None FINDINGS: ANKLE-BRACHIAL PRESSURE INDICES Pressure indices are as follows: RIGHT LOWER EXTREMITY: Ankle-brachial pressure index: 1.08 Comments: Normal LEFT LOWER EXTREMITY: Ankle-brachial pressure index: 1.13 Comments: Normal CONCLUSION: No evidence of significant obstructive peripheral vascular disease of the lower extremities Reviewed, Interpreted and Dictated by Rogerio Boykin III, MD Transcribed by Meg Hurd Authenticated and [facility]
== END 2024-07-02 23:59 | disposition home or self-care (01) ==
LOC: RT 14:08
PROVIDERS: PCP Family Medicine; Visit Provider Nurse Practitioner Family
DX: I73.9 Peripheral vascular disease, unspecified (principal)
CPT/HCPCS: 93923

== ENCOUNTER 2024-07-30 01:27 | Observation (INO) | payer BC, SELFPAY ==
[2024-07-30] VITALS (9 sets, daily range): BP systolic 94–127; BP diastolic 60–73; PULSE 50–65; RESP 16–18; TEMP 36.3–36.6; O2SAT 96–98; BMI 30.8; BMI 31.2
--- NOTE | 2024-07-30 01:33 | ECG_ITS ---
APPROVED REPORT Exam: Resting ECG HR:57 bpm ECG Measurements Heart Rate 57 AXES RI 161 P 16 QRSd 94 QRS 40 QT 413 T 27 QTc 408 Conclusion SINUS BRADYCARDIA BORDERLINE ECG Electronically signed by : VANDANA MORALES, 07/30/2024 18:07:18
--- NOTE | 2024-07-30 01:36 | XR_ITS ---
PROCEDURE INFORMATION: Exam: XR Chest Exam date and time: 07/30/2024 1:36 AM Age: 53 years old Clinical indication: Other: Weakness TECHNIQUE: Imaging protocol: Radiologic exam of the chest. Views: 1 view. COMPARISON: CT ANGIO CHEST PE PROTOCOL 09/05/2023 4:59 PM FINDINGS: Lungs: Linear densities are noted at the periphery of the left lung base consistent with atelectasis and/or scarring. The lung volumes are somewhat low. Pleural spaces: Unremarkable. No pleural effusion. No pneumothorax. Heart/Mediastinum: Unremarkable. No cardiomegaly. Vasculature: Unremarkable. Bones/joints: Unremarkable. IMPRESSION: Low lung volumes. Left lung base atelectasis and/or scarring.
[2024-07-30 01:47] LABS: Albumin Level 3.6 g/dl (3.5-5.0); Chloride 105 mmol/L (98-107); Potassium 4.5 mmoL/L (3.5-5.1); Sodium 134 mmol/L (136-145)
[2024-07-30 01:50] LABS: Alanine Aminotransferase 28 U/L (12-78); Albumin/Globulin Ratio 1.4 (1.1-1.8); Alkaline Phosphatase 87 U/L (38-126); Anion Gap 7.5 mEq/L (5-15); Aspartate Amino Transferase 33 U/L (17-59); Bilirubin,Total 0.7 mg/dl (0.2-1.3); Blood Urea Nitrogen 40 mg/dl (9-20); Calcium 8.3 mg/dl (8.4-10.2); Carbon Dioxide 26 mmol/L (22.0-30.0); Creatinine Clearance Estimated 53 mL/min (50-200); Estimated Glomerular Filt Rate 27 ml/min (>60); GFR (African American) 33 ML/MIN (>60); Globulin 2.5 g/dL (1.3-3.2); Glucose 103 mg/dl (74-100); Total Protein,Serum 6.1 g/dl (6.3-8.2)
[2024-07-30 01:51] LABS: Lipase 91 U/L (23-300); Magnesium 1.8 mg/dl (1.6-2.3)
[2024-07-30 01:57] LABS: Eosinophils % 3.6 % (0.1-12.0); Hematocrit 40.2 % (42.0-52.0); Hemoglobin 12.4 g/dL (14.1-18.0); Lymphocytes % 16.4 % (10-50); Mean Corpuscular HGB Conc 30.8 g/dL (31.8-35.4); Mean Corpuscular Hemoglobin 28.3 pg (27.0-31.2); Mean Corpuscular Volume 91.9 fl (80-94); Mean Platelet Volume 8.9 fl (7.4-10.4); Monocytes % 7.3 % (1.7-9.3); Neutrophils % 70.6 % (37.0-80.0); Platelet Count 118 K/mm3 (142-424); Red Blood Count 4.38 M/mm3 (4.60-6.20); Red Cell Distribution Width 15.6 % (11.5-17.5); White Blood Count 6.5 K/mm3 (4.8-10.8)
[2024-07-30 01:58] LABS: Basophils # 0.1 K/mm3 (0-0.2); Basophils % 0.7 % (0.1-2.0); Eosinophils # 0.2 K/mm3 (0.0-0.4); Lymphocytes # 1.1 K/mm3 (0.7-4.5); Monocytes # 0.5 K/mm3 (0.1-1.0); Neutrophils # 4.6 K/mm3 (1.8-7.8)
--- NOTE | 2024-07-30 02:05 | HMH.EDGENADL ---
Discharge Plan Disposition Patient Disposition: Admitted Chief Complaint: Weakness Clinical Impressions Clinical Impression: [place] (acute kidney injury), Acute hypotension Discharge ED Provider: Henrry Cannon Adult HPI General Chief complaint: Weakness Stated complaint: weakness Time Seen by Provider: 07/30/24 01:30 Mode of Arrival: EMS Source of Information: Patient Limitations: No Limitations Description of Symptoms (Recalled from ER Triage Doc. by RN): Pt reports to ED via EMS. Pt states cc being hypotension. Pt has a hx of hypotension and HTN. PT reports bp being 90/60 at home. EMS states bp being 100/60 and 85/62 MANAGER OF SECURITY. Pt had NS MANAGER OF SECURITY. History of Present Illness HPI narrative: 53-year-old male with reported history of hypertension and hypotension as well as coronary artery disease presents for hypertension. He reports that he has been dealing with intermittent hypotension for the last few years. They are not sure why it happens. He is on bisoprolol because if he does not take any blood pressure medications his blood pressure is too high. Throughout the day he has been feeling generally bad without specific symptoms. He has not measuring his blood pressure and it got hypotensive at home. He was hypotensive with EMS and responded to 500 mL of fluid. He denies any chest pain abdominal pain shortness of breath. Reports no recent fever or illness. Denies any urinary symptoms. He reports that he was recently treated for pancreatitis and is still having some nausea and vomiting. Related Data Home Medications ?Medication ?Instructions ?Recorded ?Confirmed empagliflozin 10 mg tablet 10 mg PO DAILY 02/18/23 07/22/24 (Jardiance) gabapentin 300 mg capsule 900 mg PO HS 02/18/23 07/22/24 insulin aspart U-100 100 unit/mL 0 sliding scale dose continuous 02/18/23 07/22/24 subcutaneous solution (Novolog subcutaneous infusion DAILY U-100 Insulin aspart) Diabetes sertraline 100 mg tablet 200 mg PO DAILY 02/18/23 07/22/24 ticagrelor 90 mg tablet (Brilinta) 90 mg PO BID 08/03/23 07/22/24 aspirin 81 mg tablet,delayed 81 mg PO DAILY 05/21/24 07/22/24 release atorvastatin 40 mg tablet 40 mg PO DAILY 05/21/24 07/22/24 bisoprolol fumarate 5 mg tablet 5 mg PO DAILY 05/21/24 07/22/24 metformin 500 mg tablet,extended 500 mg PO BID 05/21/24 07/22/24 release 24 hr primidone 50 mg tablet 50 mg PO NEEDED PRN Tremors 05/21/24 07/22/24 tizanidine 4 mg tablet 4 mg PO Q6H PRN 06/24/24 07/22/24 meloxicam 15 mg tablet 15 mg PO DAILY 07/22/24 07/22/24 promethazine 25 mg tablet 25 mg PO Q6H PRN 07/22/24 07/22/24 Allergies Allergy/AdvReac Type Severity Reaction Status Date / Time Penicillins Allergy Unknown Verified 07/22/24 15:00 [facility] Disclaimer: The information contained in this section may have been updated after the patient was seen, as this information can be updated by other users. Medical History (Updated 07/30/24 @ 03:37 by Henrry Cannon MD) Peripheral arterial disease Claudication Abnormal findings on diagnostic imaging of heart and coronary circulation Blood pressure instability Elevated blood pressure reading with diagnosis of hypertension FHx: cholecystectomy Depression Anxiety Angina pectoris Hyperlipidemia Hypertension Dyspnea Coronary artery disease Surgical History H/O right heart catheterization H/O hernia repair H/O elbow surgery H/O knee surgery Stented coronary artery Family History Other Family history of diabetes mellitus type II Family history of hyperlipidemia Family history of hypertension Family history of myocardial infarction Social History Smoking Status: Never smoker alcohol intake: never current occupational status: unemployed Travel in the last 8 weeks: None ROS Obtained: Yes
[2024-07-30 02:12] LABS: Troponin I < 0.01 ng/ml (0.00-0.034)
[2024-07-30 02:47] LABS: T4 (Thyroxine) 4.1 ug/dl (5.53-11.0)
[2024-07-30 03:01] LABS: Thyroid Stimulating Hormone 4.33 uIU/mL (0.465-4.68)
--- NOTE | 2024-07-30 03:19 | PC.NURSE ---
Patient admitted to room 209 for hypotension and [place] to hospitalist; observation status.
--- NOTE | 2024-07-30 03:36 | PC.NURSE ---
Report called to Suzy
--- NOTE | 2024-07-30 05:27 | PC.NURSE ---
Alert and oriented. No complaints since arriving to floor. Resting in bed at this time. Continuous glucose monitoring device to R side of abdomen. Ambulatory, standby assist. Room air. ACHS FS. Abdomen soft and nontender. Lung sounds clear. No edema noted. Call light in reach.
--- NOTE | 2024-07-30 05:33 | EXP.HP ---
History of Present Illness *Admission Date: 07/30/24 *Reason for visit:: ,Hypotension with fall at home, worsening renal failure *History of present illness: This patient who has been worked up for pancreatitis slightly enlarged spleen also on multiple anticoagulations due to cardiovascular disease, fell at home after feeling lightheaded to having what he felt was his blood pressure dropped checking it several times. Has come to the emergency room and will be admitted. [facility] Disclaimer: The information contained in this section may have been updated after the patient was seen, as this information can be updated by other users. Medical History Diabetes mellitus, type 2 Peripheral arterial disease Claudication Abnormal findings on diagnostic imaging of heart and coronary circulation Blood pressure instability Elevated blood pressure reading with diagnosis of hypertension FHx: cholecystectomy Depression Anxiety Angina pectoris Hyperlipidemia Hypertension Dyspnea Coronary artery disease Surgical History H/O right heart catheterization H/O hernia repair H/O elbow surgery H/O knee surgery Stented coronary artery Family History Mother Lupus Other Family history of diabetes mellitus type II Family history of hyperlipidemia Family history of hypertension Family history of myocardial infarction Social History Smoking Status: Never smoker alcohol intake: never current occupational status: unemployed Travel in the last 8 weeks: None Review of Systems Review of Systems Review of systems:: pertinent systems reviewed and negative unless documented below Review of systems (narrative): Patient is alert oriented in the ER and doing the exam and interview while he is laying on a stretcher Constitutional Constitutional: Reports as per HPI Eyes Eyes: Reports as per HPI ENT Ears, Nose, Mouth, and Throat: Reports as per HPI and Reports disequilibrium (When he feels his blood pressure is dropping) *Cardiovascular Cardiovascular: Reports as per HPI Comments: Denies chest pain with all of the symptoms that brought him to the emergency room, denies lower leg pain *Respiratory Respiratory: Reports as per HPI Comments: Denies any respiratory shortness of breath *Gastrointestinal Gastrointestinal: Reports abdominal pain (On palpation right upper quadrant pain) Comments: Noted off and on again diarrhea for quite some time worse over the past 6 weeks, *Genitourinary Genitourinary: Reports as per HPI *Musculoskeletal Musculoskeletal: Reports as per HPI and Reports muscle weakness Comments: With blood pressure low muscle weakness and fell denies injury from the fall Integumentary/Breasts Skin/Breast: Reports as per HPI *Neurologic Neurologic: Reports as per HPI and Reports disequilibrium (When he feels his blood pressure is dropping) Psychiatric Psychiatric: Reports as per HPI Endocrine Endocrine: Reports as per HPI Hematologic/Lymphatic Hematologic/Lymphatic: Reports as per HPI Allergic/Immunologic Allergic/Immunologic: Reports as per HPI Comments: Denies any allergic symptoms Meds Home Medications and Allergies Home Medications ?Medication ?Instructions ?Recorded ?Confirmed ?Type empagliflozin 10 mg tablet 10 mg PO DAILY 02/18/23 07/30/24 History (Jardiance) gabapentin 300 mg capsule 900 mg PO HS 02/18/23 07/30/24 History insulin aspart U-100 100 unit/mL 0 sliding scale dose continuous 02/18/23 07/30/24 History subcutaneous solution (Novolog subcutaneous infusion DAILY U-100 Insulin aspart) Diabetes sertraline 100 mg tablet 200 mg PO DAILY 02/18/23 07/30/24 History ticagrelor 90 mg tablet (Brilinta) 90 mg PO BID 08/03/23 07/30/24 History aspirin 81 mg tablet,delayed 81 mg PO DAILY 05/21/24
[2024-07-30 06:16] LABS: Troponin I < 0.01 ng/ml (0.00-0.034)
--- NOTE | 2024-07-30 07:51 | HMH.PHAINT1 ---
Pharmacy Intervention Comments: home medication list verified using list from outpatient pharmacy
--- NOTE | 2024-07-30 08:10 | CA_ITS ---
APPROVED REPORT EXAM: Comprehensive 2D, Doppler, and color-flow Echocardiogram Coater Brake Linings: Loren Hutson RT(R) Ht: 6 ft 2 in Wt: 240lbs BSA: 2.35 BP: 101/60 mmHg Indications: vertigo, CP, hx syncope, HTN, DM, SOB, hyperlipdemia, family history of HD, hypotension, CAD(stents 04/2024), CKD, falls related to hypotension, dizziness, weakness 2D Dimensions Left Atrium 3.92 cm M: 3.0 - 4.0 LA Volume 41.30 mL LVOT 2.01 cm (M/F) 1.5-2.5 LA Volume Index 17.57 mL/m2 (M/F) 16-34 EF AP4 56.90 % GL Strain -19.4 % M-Mode Dimensions RVDd 2.63 cm (0.9-2.6) LVDd 4.46 cm (3.5-5.7) Ao Diam 2.90 cm (2.0-3.7) LVDs 3.14 cm (3.5-5.7) IVSd 1.02 cm (0.6-1.1) PWd 0.93 cm (0.6-1.1) EF (Teich) 56.80% FS 29.60% EDV (Teich) 90.50 mL TAPSE 2.42 (<1.7) ESV (Teich) 39.10 mL LV Diastology E Decel Time 261 (160-240 msec) E/A Ratio 1.4 MED E' 6.8 (>= 7 cm/sec) E'/MED E' Ratio 12.46 (<= 14) LAT E' 10.1 (>= 10 cm/sec) E/LAT E' Ratio 8.39 (<= 14) Mitral Valve MV E Max Daniele. 85.0 (40-130 cm/s) MV A Velocity 59.0 (40-130 cm/s) E/A Ratio 1.42 MV Decel. Time 261 (160-240 ms) Left Ventricle The left ventricle is normal size. The left ventricular systolic function is normal. The left ventricular ejection fraction is within the normal range. There is increased LV wall thickness. There is normal LV segmental wall motion. The left ventricular diastolic function is normal. LVEF is 60%. Right Ventricle The right ventricle is normal size. The right ventricular systolic function is normal. Atria The left atrium is mildly dilated. The right atrium size is normal. There is no Doppler evidence of interatrial shunt. Aortic Valve The aortic valve opens well. The aortic valve is trileaflet. There is no aortic valvular stenosis. No aortic regurgitation is present. Mitral Valve The mitral valve is normal in structure. No evidence of mitral valve stenosis. Mild mitral regurgitation. Tricuspid Valve The tricuspid valve leaflets are thin and pliable. Trace tricuspid regurgitation. There is insufficient TR jet to estimate RVSP. Pulmonic Valve The pulmonary valve is normal in structure. Trace pulmonic regurgitation. Great Vessels The aortic root is normal in size. The ascending aorta is not well-visualized. IVC is normal in size and collapses >50% with inspiration. Pericardium There is no pericardial effusion. Other Information Study Quality: Adequate Conclusion Normal biventricular systolic function. Mild LA dilation. Mild MR. Electronically signed by : Tanika Quintanilla MD 08/05/2024 13:01:08
--- NOTE | 2024-07-30 08:22 | MR_ITS ---
FINAL REPORT CLINICAL HISTORY: VERTIGO FINDINGS: Multiplanar MR imaging of the brain was performed without contrast. There is no evidence of intracranial hemorrhage or mass. The ventricular size is normal. There is no evidence of shift of the midline structures. No abnormal extra-axial fluid collection is identified. The posterior fossa and brainstem have an unremarkable appearance. No area of abnormal restricted diffusion is identified. Normal major vessel vascular flow voids are seen. Mild mucosal thickening is noted in the sinuses. IMPRESSION: Unremarkable brain with no acute intracranial abnormality. Authenticated and ERN
--- NOTE | 2024-07-30 08:22 | MR_ITS ---
FINAL REPORT CLINICAL HISTORY: VERTIGO FINDINGS: Multiple projection images of the brain arterial vasculature were obtained without contrast. The raw data images were also reviewed. Moderate stenoses are noted of the bilateral post cavernous internal carotid arteries. The distal vertebral and basilar arteries appear normal without evidence of stenosis. The proximal anterior, middle and posterior cerebral arteries have an unremarkable appearance. There is no evidence of significant stenosis or major branch occlusion. No aneurysm or vascular malformation is identified. 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 No evidence of major branch occlusion. Authenticated and ERN
--- NOTE | 2024-07-30 08:22 | MR_ITS ---
FINAL REPORT CLINICAL HISTORY: VERTIGO FINDINGS: Multiple projection images of the neck arterial vasculature were obtained without contrast. The raw data images were also reviewed. The images are significantly degraded by artifact. Portions of the right common carotid artery are obscured. There is no evidence of significant right internal carotid stenosis. The right external carotid artery is patent. The right vertebral artery is patent without evidence of stenosis. The left common carotid artery has an unremarkable appearance without evidence of stenosis or occlusion. Plaque is noted at the left carotid bulb without evidence of stenosis. There is no evidence of significant left internal carotid stenosis. The left external carotid artery is patent. The left vertebral artery is patent without evidence of stenosis. IMPRESSION: Significantly technically limited secondary to artifact. No definite significant stenosis identified, but CT angiogram would be more sensitive. Authenticated and ERN
--- NOTE | 2024-07-30 09:54 | HMH.PTEV ---
Physical Therapy Evaluation Rehab PT IP Evaluation Start: 07/30/24 08:17 Freq: ONCE Status: Active Protocol: Document 07/30/24 09:36 ABDOULAYE (Rec: 07/30/24 09:53 ABDOULAYE [id number]) Subjective/History History History Per H&P: This patient who has been worked up for pancreatitis slightly enlarged spleen also on multiple anticoagulations due to cardiovascular disease, fell at home after feeling lightheaded to having what he felt was his blood pressure dropped checking it several times. Has come to the emergency room and will be admitted. Subjective Subjective Pt reports he lives with his who is there most of the time. Pt IND with all mobility without AD. Pt does not own any AD. Pt lives in a 2-story home. Pt driving prior to admission. Pt reports multiple prior falls d/t drop in BP. New diagnosis of cancer in past 12 No months? Rehab PT IP Eval Objective Appearance Patient Behavior Appropriate,Cooperative Patient Orientation Person,Situation Difficulty following instructions none Speech Pattern Clear Ambulation Patient Able to Ambulate Yes Ambulation Observation IP General Gait Pattern Observation Wide Based Gait Ambulation Distance (feet) 80 Ambulation Assistive Device None Ambulation Ability Minimal x 1 (25% assist) Balance Ability to Arise Able, uses arms to help Sitting Balance Steady, safe Standing Balance Steady, wide stance Transfers Bed Transfer Ability Supervision/Stand by Sit to Stand Bed Transfer Ability Contact Guard/Hand Hold Rehab PT IP prob,goals,plan Problems Date of Evaluation: 07/30/24 PT IP Problems Bed Mobility,Transfers,Gait, Balance,Safety Rehab Potential Rehab Potential Good Equipment Needs Assistive Devices Rolling / Wheeled Walker Plan PT Intervention Plan Bed Mobility,Transfers,Gait, Balance,Safety,Therapeutic Exercise Other Intervention Plan 1-2 times PT Plan Frequency Daily Duration
--- NOTE | 2024-07-30 10:01 | HMH.OTEV ---
OT Inpatient Evaluation Rehab OT IP Evaluation Start: 07/30/24 08:17 Freq: ONCE Status: Active Protocol: Document 07/30/24 09:56 DINH ([facility]24 10[id number] Re[facility] OT IP Assessment Subjective History Pt oriented x 3 on arrival. Pt agreeable to engage in therapy evaluation. Per H&P: This patient who has been worked up for pancreatitis slightly enlarged spleen also on multiple anticoagulations due to cardiovascular disease, fell at home after feeling lightheaded to having what he felt was his blood pressure dropped checking it several times. Has come to the emergency room and will be admitted. Subjective Pt reports he lives with his who is there most of the time. Pt IND with all ADLs and IADLs. Pt normally is able to complete functional transfers independently without AE. Pt does not own any AD. Pt lives in a 2-story home. Pt driving prior to admission. Pt reports multiple prior falls d/t drop in BP. Objective Patient Orientation Person,Place,Birthday Right Upper Extremity Gross ROM WFL Left Upper Extremity Gross ROM WFL Bed Mobility bed mobility-scooting,bed mobility - supine/sit Assist Level Supervision/Stand by Transfer Training Sit/Stand Transfer Assist Level Contact Guard/Hand Hold Lower Body Dressing Ability Standby Assistance Rehab OT IP prob,goals,plan Problems Date of Evaluation: 07/30/24 OT IP Problems Bed Mobility,Transfers,Balance ,Self care,Safety Rehab Potential Rehab Potential Good Equipment Needs Assistive Devices Rolling / Wheeled Walker Plan OT intervention Plan Bed Mobility,Transfers,Balance ,Self care,Safety,Therapeutic Exercise OT Plan Frequency Daily Duration LOS Discharge Goals Bed Mobility Ability Standby Assistan
--- NOTE | 2024-07-30 10:22 | SW/DCPLANNER ---
Addendum entered by Priti Dias 07/31/24 07:49: Per Christina w/ outpatient Rehab: order received and they will contact patient today to schedule. Original Note: I spoke w/ patient this AM regarding plans once medically stable for discharge. PT/OT evaluated patient and recommended home health services. Patient stated that he would be more interested in outpatient PT at [facility] once ready for discharge. I will discuss w/ MD and request outpatient appointment once ready for discharge. Discharge date is unknown at this time.
[2024-07-30 11:11] LABS: Microscopic, Urine URINE MICROSCOPIC (MICROSCOPIC)
[2024-07-30 11:25] LABS: Appearance,Urine CLEAR (Clear); Bilirubin,Urine Negative (Negative); Blood, Urine Negative (Negative); Color,Urine YELLOW (Yellow); Glucose,Urine (UA) 3+ (Negative); Ketones,Urine Negative (Negative); Leukocyte Esterase,Urine Negative (Negative); Nitrate,Urine Negative (Negative); PH,Urine 5.5 (5.0-8.5); Protein,Urine Negative (Negative); Specific Gravity, Urine 1.025 (1.005-1.030); Urobilinogen,Urine 0.2 EU/dl (0.2)
--- NOTE | 2024-07-30 11:29 | EXP.CARD.CON ---
History of Present Illness History of Present Illness Consult date: 07/30/24 Requesting physician: Olaf Johnson Consult reason: hypotension Chief complaint: weakness and hypotension Additional Medical History:: History of present illness: 53-year-old white male established patient of our office. Had stenting last June at which time he developed hypotension and had to stop several BP meds. He has since had several visits since that time adjusting BP medications. If he takes no BP meds his BP will increase to >170s. Underwent critical RCA stenting again in May of this year. Last visit was still having chest pain so Ranexa was offered but patient declined. Patient was seen here in the emergency room in April with mild acute pancreatitis. Reports he typically has loose or watery stools as his baseline. Had been developing worsening hypotension yesterday before bed. When he got up to go to the bathroom he had weakness in his legs and collapse. Eventually came to the emergency room where he was found to have acute dehydration likely from his diarrhea. Creatinine was up from baseline of 1-2.5. He has been rehydrated and is feeling somewhat better. There are no orthostatic vital signs documented on the chart and I have requested these from the nurse. EKG shows sinus rhythm without acute ischemia or ectopy. He has a 2D echo pending. No specific questions or complaints this morning. [facility] Disclaimer: The information contained in this section may have been updated after the patient was seen, as this information can be updated by other users. Medical History Diabetes mellitus, type 2 Peripheral arterial disease Claudication Abnormal findings on diagnostic imaging of heart and coronary circulation Blood pressure instability Elevated blood pressure reading with diagnosis of hypertension FHx: cholecystectomy Depression Anxiety Angina pectoris Hyperlipidemia Hypertension Dyspnea Coronary artery disease Surgical History H/O right heart catheterization H/O hernia repair H/O elbow surgery H/O knee surgery Stented coronary artery Family History Mother Lupus Other Family history of diabetes mellitus type II Family history of hyperlipidemia Family history of hypertension Family history of myocardial infarction Social History Smoking Status: Never smoker alcohol intake: never current occupational status: unemployed Travel in the last 8 weeks: None Review of Systems Constitutional Constitutional: Denies fatigue and Reports weakness Eyes Eyes: Denies loss of vision ENT Ears, Nose, Mouth, and Throat: Reports disequilibrium (When he feels his blood pressure is dropping) *Cardiovascular Cardiovascular: Denies chest pain and Denies dyspnea *Respiratory Respiratory: Denies cough and Denies dyspnea *Gastrointestinal Gastrointestinal: Denies change in stool character, Reports loose stools, Denies nausea and Denies vomiting *Genitourinary Genitourinary: Denies difficulty urinating *Musculoskeletal Musculoskeletal: Denies muscle weakness Integumentary/Breasts Skin/Breast: Denies changing lesions *Neurologic Neurologic: Reports as per HPI, Reports disequilibrium (When he feels his blood pressure is dropping), Denies loss of vision and Reports weakness Endocrine Endocrine: Denies fatigue Exam Data for Last 24 hours Vital signs and Labs for Last 24 Hours: Temp Pulse Resp BP Pulse Ox O2 Del Method 98 F 58 L 18 127/73 98 Room Air 07/30/24 08:00 07/30/24 10:56 07/30/24 08:00 07/30/24 10:56 07/30/24 08:00 07/30/24 11:00 Laboratory Results - last 24 hr 07/30/24 01:35: WBC 6.5, RBC 4.38 L, Hgb 12.4 L, Hct 40.2 L, MCV 91.9, MCH 28.3, MCHC 30.8 L, RDW 15.6, Plt Count 118 L, MPV 8.9, Neut % (Auto
[2024-07-30 11:34] LABS: POC Glucose,Bedside 194 (70-110)
--- NOTE | 2024-07-30 15:04 | PC.NURSE ---
PT IS RESTING IN BED WITH FAMILY AT BEDSIDE. ALERT AND ORIENTED X4. EATING AND DRINKING WELL. NO COMPLAINTS OF N/V. PT STATES HE HAS NOT HAD ANY DIARRHEA THIS SHIFT. LUNG SOUNDS CLEAR. ABDOMEN SOFT/NON TENDER WITH ACTIVE BOWEL SOUNDS. AMBULATES TO THE BATHROOM. VSS. WILL CONTINUE TO MONITOR.
[2024-07-30 16:57] LABS: POC Glucose,Bedside 257 (70-110)
--- NOTE | 2024-07-30 17:06 | EXP.DC.SUM ---
General Admission date:: 07/30/24 Discharge date: 07/30/24 HPI HPI HPI: This patient who has been worked up for pancreatitis slightly enlarged spleen also on multiple anticoagulations due to cardiovascular disease, fell at home after feeling lightheaded to having what he felt was his blood pressure dropped checking it several times. Has come to the emergency room and will be admitted. Hospital Course Hospital Course Hospital Course: Patient presented to hospital after fall at home, and received presyncope and TIA versus CVA workup. Patient had MRI brain done without CVA. 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 Patient had CTA neck done without overt abnormalities. Patient had echocardiogram done with results pending at time of hospital disposition. 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 Both cardiology and hospitalist felt patient's lightheadedness secondary to diarrhea related dehydration. Patient had urine culture ordered and pending at time of hospital discharge. Patient had infectious GI panel ordered, but never produced diarrhea or stool during hospitalization. Patient evaluated by PT/OT during hospitalization, with outpatient PT OT arrangements recommended. Outpatient PT/OT arrangements made prior to hospital disposition. Patient given fluid bolus at time of initial hospitalization, and copious p.o. fluid hydration throughout hospitalization. Patient agrees to continuous IV hydration at home after hospital discharge. Patient will also follow-up with nephrology after hospital disposition. Patient will also follow-up with primary care physician after hospital discharge. Given patient's hypotension issues, patient's home bisoprolol was cut in half for [address] Barahona at time of hospital disposition. Exam Data for Last 24 hours Vital signs and Labs for Last 24 Hours: Temp Pulse Resp BP Pulse Ox O2 Del Method 98 F 60 18 127/73 98 Room Air 07/30/24 08:00 07/30/24 16:00 07/30/24 08:00 07/30/24 10:56 07/30/24 08:00 07/30/24 16:47 Laboratory Results - last 24 hr 07/30/24 01:35: WBC 6.5, RBC 4.38 L, Hgb 12.4 L, Hct 40.2 L, MCV 91.9, MCH 28.3, MCHC 30.8 L, RDW 15.6, Plt Count 118 L, MPV 8.9, Neut % (Auto) 70.6, Lymph % (Auto) 16.4, [place] % (Auto) 7.3, Eos % (Auto) 3.6, Baso % (Auto) 0.7, Neut # (Auto) 4.6, Lymph # (Auto) 1.1, [place] # (Auto) 0.5, Eos # (Auto) 0.2, Baso # (Auto) 0.1, Sodium 134 L, Potassium 4.5, Chloride 105, Carbon Dioxide 26, Anion Gap 7.5, BUN 40 H, Creatinine 2.50 H, Estimated Creat Clear 53, Estimated GFR 27 L, Est GFR ( Amer) 33 L, Glucose 103 H, Calcium 8.3 L, Magnesium 1.8, Total Bilirubin 0.7, AST 33, ALT 28, Alkaline Phosphatase 87, Troponin I < 0.01, Total Protein 6.1 L, Albumin 3.6, Globulin 2.5, Albumin/Globulin Ratio 1.4, Lipase 91, TSH 4.33, Thyroxine (T4) 4.1 L 07/30/24 05:37: Troponin I < 0.01 07/30/24 11:05: POC Glucose 194 H, Urine Color Yellow, Urine Appearance Clear, Urine pH 5.5, Ur Specific [place] 1.025, Urine Protein Negative, Urine Glucose (UA) 3+, Urine Ketones Negative, Urine Blood Negative, Urine Nitrate Negative, Urine Bilirubin Negative, Urine Urobilinogen 0.2, Ur Leukocyte Esterase Negative, Urine RBC None, Urine WBC None, Ur Squamous Epith Cells None, Urine Bacteria None 07/30/24 16:49: POC Glucose 257 H I & O for Last 24 hours: Intake & Output 07/27/24 07/28/24 07/29/24 07/30/24 23:59 23:59 23:59 23:59 Intake Total 420 / 420 Output Total 0 / 0 Balance 420 / 420 Weight 110.393 kg *Routine HEENT Exam Head: Present normocephalic Eye: Present EOMI and normal accommodation ENT: Present mucous membranes moist *Routine Neck Exam Neck: Present supple and full ROM *Routine Respiratory Exam Respiratory: Present CTA bilaterally and normal respiratory effort *Routine Cardiovascular Exam Cardiovascular: Present RRR,
--- NOTE | 2024-07-30 17:29 | EXP.ACUTE.PN ---
Subjective *Date: 07/30/24 *Time: 17:29 Medical Exam Vital signs and Labs for Last 24 Hours: Vital Signs Temp Pulse Pulse Pulse Pulse Pulse Resp 07/30/24 16:47 07/30/24 16:00 60 07/30/24 14:54 07/30/24 13:00 07/30/24 11:00 07/30/24 10:56 58 L 60 65 07/30/24 08:04 07/30/24 08:00 60 07/30/24 08:00 07/30/24 08:00 98 F 56 L 18 07/30/24 06:59 07/30/24 05:00 07/30/24 04:00 97.4 F L 53 L 16 07/30/24 04:00 50 L 07/30/24 03:36 97.7 F 53 L 18 07/30/24 03:34 07/30/24 03:00 54 L 07/30/24 02:30 07/30/24 02:00 57 L 07/30/24 01:28 97.7 F 59 L 18 BP BP BP BP BP Pulse Ox O2 Del Method 07/30/24 16:47 Room Air 07/30/24 16:00 07/30/24 14:54 Room Air 07/30/24 13:00 Room Air 07/30/24 11:00 Room Air 07/30/24 10:56 127/73 122/70 111/65 07/30/24 08:04 Room Air 07/30/24 08:00 07/30/24 08:00 Room Air 07/30/24 08:00 108/68 L 98 Room Air 07/30/24 06:59 Room Air 07/30/24 05:00 Room Air 07/30/24 04:00 103/66 L 97 Room Air 07/30/24 04:00 07/30/24 03:36 101/60 L Room Air 07/30/24 03:34 Room Air 07/30/24 03:00 94/61 L 96 07/30/24 02:30 96/60 L 07/30/24 02:00 117/70 97 07/30/24 01:28 94/60 L 97 Room Air Intake and Output 07/30/24 07/30/24 07/30/24 07:59 15:59 23:59 Intake Total 420 / 420 Output Total 0 / 0 Balance 0 / 420 420 / 420 Intake: Intake, Oral Amount 420 / 420 Output: Output, Urine Amount 0 / 0 Other: Number of Unmeasured Voids 2 Weight 110.393 kg Patient Weight 07/30/24 23:59 Weight 110.393 kg Laboratory Results - last 24 hr 07/30/24 01:35: WBC 6.5, RBC 4.38 L, Hgb 12.4 L, Hct 40.2 L, MCV 91.9, MCH 28.3, MCHC 30.8 L, RDW 15.6, Plt Count 118 L, MPV 8.9, Neut % (Auto) 70.6, Lymph % (Auto) 16.4, [place] % (Auto) 7.3, Eos % (Auto) 3.6, Baso % (Auto) 0.7, Neut # (Auto) 4.6, Lymph # (Auto) 1.1, [place] # (Auto) 0.5, Eos # (Auto) 0.2, Baso # (Auto) 0.1, Sodium 134 L, Potassium 4.5, Chloride 105, Carbon Dioxide 26, Anion Gap 7.5, BUN 40 H, Creatinine 2.50 H, Estimated Creat Clear 53, Estimated GFR 27 L, Est GFR ( Amer) 33 L, Glucose 103 H, Calcium 8.3 L, Magnesium 1.8, Total Bilirubin 0.7, AST 33, ALT 28, Alkaline Phosphatase 87, Troponin I < 0.01, Total Protein 6.1 L, Albumin 3.6, Globulin 2.5, Albumin/Globulin Ratio 1.4, Lipase 91, TSH 4.33, Thyroxine (T4) 4.1 L 07/30/24 05:37: Troponin I < 0.01 07/30/24 11:05: POC Glucose 194 H, Urine Color Yellow, Urine Appearance Clear, Urine pH 5.5, Ur Specific [place] 1.025, Urine Protein Negative, Urine Glucose (UA) 3+, Urine Ketones Negative, Urine Blood Negative, Urine Nitrate Negative, Urine Bilirubin Negative, Urine Urobilinogen 0.2, Ur Leukocyte Esterase Negative, Urine RBC None, Urine WBC None, Ur Squamous Epith Cells None, Urine Bacteria None 07/30/24 16:49: POC Glucose 257 H I & O for Labs for Last 24 Hours: Intake & Output 07/27/24 07/28/24 07/29/24 09/03/24 23:59 23:59 23:59 23:59 Intake Total 420 / 420 Output Total 0 / 0 Balance 420 / 420 Weight 110.393 kg Assessment and Plan *Assessment and plan Plan Assessment 53-year-old with past medical history of COPD, diabetes, hypertension, mood disorder presents with acute on chronic melena and shortness of breath. Patient had positive PET scan January 2024 with questionable rectal mass, but for some reason was lost to follow-up. Denies ever receiving EGD/colonoscopy. 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 COPD exacerbation: ?
--- NOTE | 2024-08-01 10:31 | CARE MANAGER ---
Attempted to contact patient x2 related to hospital discharge. Left VM message. MALU Choudhury
== END 2024-07-30 17:41 | disposition home or self-care (01) ==
LOC: ER 01:36 → 2ND 03:35
PROVIDERS: Admitting Provider Internal Medicine Adolescent Medicine; Emergency Provider Emergency Medicine; PCP Family Medicine; Visit Provider Internal Medicine Adolescent Medicine
DX: N17.9 Acute kidney failure, unspecified (principal); I95.9 Hypotension, unspecified; R53.1 Weakness; E86.0 Dehydration; W18.30XA Fall on same level, unspecified, initial encounter; R89.9 Unspecified abnormal finding in specimens from other organs, systems and tissues; E11.51 Type 2 diabetes mellitus with diabetic peripheral angiopathy without gangrene; I25.118 Atherosclerotic heart disease of native coronary artery with other forms of angina pectoris; D64.9 Anemia, unspecified; D69.6 Thrombocytopenia, unspecified; I10 Essential (primary) hypertension; E78.5 Hyperlipidemia, unspecified; K76.0 Fatty (change of) liver, not elsewhere classified; R16.1 Splenomegaly, not elsewhere classified; Z95.5 Presence of coronary angioplasty implant and graft; Z79.4 Long term (current) use of insulin; Z79.01 Long term (current) use of anticoagulants; Z79.899 Other long term (current) drug therapy
CPT/HCPCS: 70544; 70547; 70551; 71045; 80050; 80053; 81001; 82962; 83690; 83735; 84436; 84443; 84484; 85025; 87040; 93005; 93306; 97116; 97162; 97166; 97530; 99285; G0378; J1650; J2405; J7120

== ENCOUNTER 2024-10-23 12:27 | Emergency (ER) | payer BC, SELFPAY ==
[2024-10-23 12:29] VITALS: BP 167/98; PULSE 62; RESP 16; TEMP 36.9; O2SAT 99; BMI 32.3
--- NOTE | 2024-10-23 12:31 | HMH.EDGENADL ---
Discharge Plan Disposition Patient Disposition: Home, Self-Care Condition: Good Prescriptions Prescriptions: No Action tizanidine 4 mg tablet 4 mg PO Q6HP PRN (Reason: muscle spasms) Patient Comments: TAKE 1 TABLET BY MOUTH EVERY 6 HOURS meloxicam 15 mg tablet 15 mg PO DAILY Patient Comments: TAKE 1 TABLET BY MOUTH ONCE DAILY promethazine 25 mg tablet 25 mg PO Q6HP PRN (Reason: Nausea And Vomiting) Patient Comments: TAKE 1/2 TO 1 (ONE-HALF TO ONE) TABLET BY MOUTH EVERY 6 HOURS NEEDED FOR NAUSEA AND FOR VOMITING colestipol 1 gram tablet PO Patient Comments: TAKE 2 TABLETS IN THE MORNING AND 2 TABLETS AT NIGHT DAILY (DME) Dexcom G6 Sensor Device See Rx Instructions .ROUTE .MEDSUPPLY Qty: 1 Patient Comments: USE DIRECTED AND CHANGE EVERY 10 DAYS Rx Instructions: As directed (DME) Dexcom G6 Transmitter Device See Rx Instructions .ROUTE .MEDSUPPLY Qty: 1 Patient Comments: USE 1 EACH EVERY 3 (THREE) MONTHS Rx Instructions: As directed amlodipine [Norvasc] 5 mg tablet 5 mg PO DAILY Qty: 30 4RF Brilinta 90 mg tablet 90 mg PO BID Qty: 180 1RF metformin 500 mg tablet extended release 24 hr 500 mg PO BID Patient Comments: TAKE 1 TABLET BY MOUTH TWICE DAILY WITH FOOD atorvastatin 40 mg tablet 40 mg PO HS aspirin 81 mg tablet,delayed release (DR/EC) 81 mg PO DAILY primidone 50 mg tablet 50 mg PO DAILY Patient Comments: TAKE 1 TABLET BY MOUTH EVERY DAY FOR 30 DAYS sertraline 100 mg tablet 200 mg PO DAILY insulin aspart U-100 [Novolog U-100 Insulin aspart] 100 unit/mL solution 0 sliding scale dose continuous subcutaneous infusion DAILY Rx Instructions: USE UP TO 125 UNITS DAILY VIA INSULIN PUMP DIRECTED gabapentin 300 mg capsule 900 mg PO HS Patient Comments: TAKE 3 CAPSULES BY MOUTH EVERY DAY AT BEDTIME Jardiance 10 mg tablet 10 mg PO DAILY Patient Comments: TAKE 1 TABLET BY MOUTH DAILY. DOSE DECREASE bisoprolol fumarate 5 mg tablet 2.5 mg PO DAILY Qty: 30 0RF Referrals Follow up/Referrals: Quyen Vincent [Primary Care Provider] - See instructions Victor Manuel Quintanilla MD [Staff Physician] - See instructions (Syncope, on beta-ric) Activity Restrictions/Add. Instructions Additional Instructions/Restrictions: As we discussed please follow-up with cardiology after the holiday. Follow-up with your PCP for no improvement or worsening signs or symptoms or return to the ER as needed. Clinical Impressions Clinical Impression: Syncope and collapse Print Language Print Language: Slovak Discharge ED Provider: Ronnie Dumont General Adult HPI <LIVE Rose - Last Filed: 10/23/24 21:15> General Chief complaint: Fall Stated complaint: passed out and hit head Time Seen by Provider: 10/23/24 12:31 History of Present Illness HPI narrative: Patient presents for evaluation after a fall. Patient has had several episodes of near syncope over the last year. He typically gets symptomatic after changing position primarily going from lying or sitting to standing. He will get dizzy and has strategies in place and has used them in the past without any episodes of passing out. He has been evaluated both by his PCP and cardiology in the past with no particular source found. However yesterday he had one of his typical presentations however this time he actually did pass out falling backwards striking his head on the banister of their stairs. It was witnessed by his . He was unconscious for more than a minute. He suffered initially no other ill effects however when he awoke this morning he has been hurting in the back of his head so he came to the ER for evaluation. He denies any numbness tingling vision changes focal neurologic deficits chest pain shortness of breath fever chills hemoptysis hematochezia melena nausea vomiting or diarrhea. He does have a history of insulin-dependent type 2 diabetes mellitus, cardiovascular disease status post PCI with stents and is on only an aspirin a day but does take meloxicam. He also is on a beta-ric as other antihypertensives and a statin inhibitor Related Data Home Medications ?Medication ?Instructions ?Recorded ?Confirmed empagliflozin 10 mg tablet 10 mg PO DAILY 02/18/23 08/27/24 (Jardiance) gabapentin 300 mg capsule 900 mg PO HS 02/18/23 08/27/24 insulin aspart U-100 100 unit/mL 0 sliding scale dose continuous 02/18/23 08/27/24 subcutaneous solution (Novolog subcutaneous infusion DAILY U-100 Insulin aspart) Diabetes sertraline 100 mg tablet 200 mg PO DAILY 02/18/23 08/27/24 aspirin 81 mg tablet,delayed 81 mg PO DAILY 05/21/24 08/27/24 release atorvastatin 40 mg tablet 40 mg PO HS 05/21/24 08/27/24 metformin 500 mg tablet,extended 500 mg PO BID 05/21/24 08/27/24 release 24 hr primidone 50 mg tablet 50 mg PO DAILY 05/21/24 08/27/24 tizanidine 4 mg tablet 4 mg PO Q6HP PRN muscle spasms 06/24/24 08/27/24 meloxicam 15 mg tablet 15 mg PO DAILY 07/22/24 08/27/24 promethazine 25 mg tablet 25 mg PO Q6HP PRN Nausea And 07/22/24 08/27/24 Vomiting blood-glucose sensor (DexAddonTV G6 #1 ea 08/27/24 08/27/24 Sensor device) blood-glucose transmitter (Dexcom #1 ea 08/27/24 08/27/24 G6 Transmitter device) colestipol 1 gram tablet g PO 08/27/24 08/27/24 Previous Rx's ?Medication ?Instructions ?Recorded bisoprolol fumarate 5 mg tablet 2.5 mg (1/2 x 5 mg) PO DAILY #30 07/30/24 tabs amlodipine 5 mg tablet (Norvasc) 5 mg PO DAILY #30 tabs 08/14/24 ticagrelor 90 mg tablet (Brilinta) 90 mg PO BID #180 tabs 09/26/24 Allergies Allergy/AdvReac Type Severity Reaction Status Date / Time Penicillins Allergy Unknown Verified 08/27/24 13:42 allergy reaction COUNT INCLUDES THE [facility] <LIVE Rose - Last Filed: 10/23/24 21:15> COUNT INCLUDES THE [facility] Disclaimer: The information contained in this section may have been updated after the patient was seen, as this information can be updated by other users. Medical History Diabetes mellitus, type 2 Peripheral arterial disease Claudication Abnormal findings on diagnostic imaging of heart and coronary circulation Blood pressure instability Elevated blood pressure reading with diagnosis of hypertension FHx: cholecystectomy Depression Anxiety Angina pectoris Hyperlipidemia Hypertension Dyspnea Coronary artery disease Surgical History H/O right heart catheterization H/O hernia repair H/O elbow surgery H/O knee surgery Stented coronary artery Family History Mother Lupus Other Family history of diabetes mellitus type II Family history of hyperlipidemia Family history of hypertension Family history of myocardial infarction Social History Smoking Status: Never smoker alcohol intake: never current occupational status: unemployed Other Medical History Have you received the Flu Vaccine for this season: No Have you received the Pneumonia Vaccine: No <LIVE Rose - Last Filed: 10/23/24 21:15> ROS Obtained: Yes Systems reviewed as appropriate & no additional complaints except as documented Physical Exam <LIVE Rose - Last Filed: 10/23/24 21:15> General General appearance: alert and in no apparent distress Respiratory Respiratory exam: Present normal lung sounds bilaterally Cardiovascular Cardiovascular exam: Present regular rate Neurological Exam Neurological exam: Present alert and oriented X3 Medical Decision Making <LIVE Rose - Last Filed: 10/23/24 21:15> Medical Records Medical records reviewed: Yes I reviewed the patient's medical records. Screening: Per USPSTF and CDC recommendations, given the prevalence of disease in our region, it is our hospital?s policy to screen for HIV and viral Hepatitis for all patients aged 18 and over and those with ongoing risk factors. Perico Inquiry Pt receiving controlled substance: No Vital Signs: 10/23/24 12:29 10/23/24 13:01 10/23/24 14:01 Temperature 98.4 F Temperature Source Oral Pulse Rate 61 64 Pulse Rate [Left Radial] 62 Respiratory Rate 16 13 10 L Blood Pressure 144/78 H 140/72 Blood Pressure [Right Arm] 167/98 H Blood Pressure Mean [Right Arm] 121 02 Sat by Pulse Oximetry 99 97 95 Oxygen Delivery Method Room Air Room Air 10/23/24 14:31 10/23/24 15:18 Temperature 98.0 F Temperature Source Pulse Rate 66 62 Pulse Rate [Left Radial] Respiratory Rate 15 16 Blood Pressure 135/78 139/80 Blood Pressure [Right Arm] Blood Pressure Mean [Right Arm] 02 Sat by Pulse Oximetry 97 Oxygen Delivery Method Room Air Lab Data Lab results reviewed: Yes I reviewed the patient's lab results. Lab Results 10/23/24 12:39: WBC 7.9, RBC 5.48, Hgb 15.7, Hct 46.9, MCV 85.6, MCH 28.7, MCHC 33.5, RDW 15.4, Plt Count 185, MPV 7.4, Neut % (Auto) 72.1, Lymph % (Auto) 16.2, [place] % (Auto) 7.9, Eos % (Auto) 2.9, Baso % (Auto) 0.9, Neut # (Auto) 5.7, Lymph # (Auto) 1.3, [place] # (Auto) 0.6, Eos # (Auto) 0.2, Baso # (Auto) 0.1, PT 10.5, INR 0.93, Sodium 138, Potassium 4.2, Chloride 102, Carbon Dioxide 30, Anion Gap 10.2, BUN 36 H, Creatinine 1.50 H, Estimated Creat Clear 81, Estimated GFR 49 L, Est GFR ( Amer) 59, Glucose 120 H, Calcium 9.4, Total Bilirubin 0.7, AST 46, ALT 35, Alkaline Phosphatase 114, Troponin I < 0.01, Total Protein 7.2, Albumin 4.4, Globulin 2.8, Albumin/Globulin Ratio 1.6, HIV 1&2 Antibody Rapid Nonreactive 10/23/24 12:39 10/23/24 12:39 Orders (Tests/Meds): ED MEDICATIONS Discontinued Medications Generic Name Dose Route Start Last Admin Trade Name Shaniqua PRN Reason Stop Dose Admin Acetaminophen 1,000 mg 10/23/24 12:53 10/23/24 13:02 Acetaminophen 500mg Tab PO 10/23/24 12:54 1,000 mg ONCE ONE Administration Iopamidol 80 ml 10/23/24 13:32 10/23/24 13:34 Iopamidol-370 (76%);100ml Bottle IV 10/23/24 13:33 80 ml ONCE ONE Administration Lidocaine 1 each 10/23/24 12:53 10/23/24 13:02 Lidocaine 5% Transdermal Patch TP 10/23/24 12:54 1 each ONCE ONE Administration Methocarbamol 500 mg 10/23/24 12:53 10/23/24 13:02 Methocarbamol 500mg Tablet PO 10/23/24 12:54 500 mg ONCE ONE Administration Sodium Chloride 50 ml 10/23/24 13:32 10/23/24 13:34 0.9 % Sodium Chloride 50 Ml Vial IV 10/23/24 13:33 50 ml ONCE ONE Administration Sodium Chloride 10 ml 10/23/24 13:32 10/23/24 13:34 Sodium Chloride 0.9% 10ml Syr (Rad Only) IV 10/23/24 13:33 10 ml ONCE ONE Administration ORDERS Category Date Time Status CT angio head Stat Cat Scan 10/23/24 12:[address] angio neck Stat Cat Scan 10/23/24 12:[address] cervical spine wo con Stat Cat Scan 10/23/24 12:[address] head/brain wo con Stat Cat Scan 10/23/24 12:53 Completed CBC w/Auto Diff [Complete Blood Count Auto Diff] Stat Lab 10/23/24 12:39 Completed CMP [Comprehensive Metabolic Panel] Stat Lab 10/23/24 12:39 Completed HIV (1&2) Antibody Rapid Stat Lab 10/23/24 12:39 Completed Hep C Ab with Reflex to RNA Stat Lab 10/23/24 12:39 Received INR [Prothrombin Time INR] Stat Lab 10/23/24 12:39 Completed Trop I [Troponin I] Stat Lab 10/23/24 12:39 Completed ECG holter initial pfn Stat Y 10/23/24 14:58 Completed Medical Decision Narrative: In summary patient is a 54-year-old male who presents to the emergency department for evaluation of syncope. Patient is currently hemodynamically stable upon arrival, afebrile. Physical exam is remarkable for tenderness to palpation in the occiput and the top of the cervical spine in the midline but no evidence of hematoma ecchymosis or abrasions. [place] Coma Score is 15 pupils were round reactive to light and patient is awake alert and oriented to person place and circumstance. Differential diagnosis includes vasovagal syncope versus cardiogenic syncope versus orthostatic hypotension etc. Initial workup will be conducted with hematologic labs CT scans of the head and CTA of the head and neck. Initial interventions include Tylenol ibuprofen Robaxin. Initial workup reviewed by me shows his hematologic labs nonactionable my informal interpretation of his imaging shows no acute processes.. Upon repeat evaluation patient did have some moderate improvement in his symptoms. Given this I am going to place a Holter monitor so we can capture EKG and cardiac data although we ideally need blood pressure at same time. I am referring the patient back to cardiology for evaluation and consideration of discontinuing the patient's metoprolol as he may have medication induced symptoms. <Ronnie Dumont MD - Last Filed: 10/24/24 07:07> Vital Signs: 10/23/24 12:29 10/23/24 13:01 10/23/24 14:01 Temperature 98.4 F Temperature Source Oral Pulse Rate 61 64 Pulse Rate [Left Radial] 62 Respiratory Rate 16 13 10 L Blood Pressure 144/78 H 140/72 Blood Pressure [Right Arm] 167/98 H Blood Pressure Mean [Right Arm] 121 02 Sat by Pulse Oximetry 99 97 95 Oxygen Delivery Method Room Air Room Air 10/23/24 14:31 10/23/24 15:18 Temperature 98.0 F Temperature Source Pulse Rate 66 62 Pulse Rate [Left Radial] Respiratory Rate 15 16 Blood Pressure 135/78 139/80 Blood Pressure [Right Arm] Blood Pressure Mean [Right Arm] 02 Sat by Pulse Oximetry 97 Oxygen Delivery Method Room Air Lab Data Lab Results 10/23/24 12:39: WBC 7.9, RBC 5.48, Hgb 15.7, Hct 46.9, MCV 85.6, MCH 28.7, MCHC 33.5, RDW 15.4, Plt Count 185, MPV 7.4, Neut % (Auto) 72.1, Lymph % (Auto) 16.2, [place] % (Auto) 7.9, Eos % (Auto) 2.9, Baso % (Auto) 0.9, Neut # (Auto) 5.7, Lymph # (Auto) 1.3, [place] # (Auto) 0.6, Eos # (Auto) 0.2, Baso # (Auto) 0.1, PT 10.5, INR 0.93, Sodium 138, Potassium 4.2, Chloride 102, Carbon Dioxide 30, Anion Gap 10.2, BUN 36 H, Creatinine 1.50 H, Estimated Creat Clear 81, Estimated GFR 49 L, Est GFR ( Amer) 59, Glucose 120 H, Calcium 9.4, Total Bilirubin 0.7, AST 46, ALT 35, Alkaline Phosphatase 114, Troponin I < 0.01, Total Protein 7.2, Albumin 4.4, Globulin 2.8, Albumin/Globulin Ratio 1.6, HIV 1&2 Antibody Rapid Nonreactive Orders (Tests/Meds): ED MEDICATIONS Discontinued Medications Generic Name Dose Route Start Last Admin Trade Name Freq PRN Reason Stop Dose Admin Acetaminophen 1,000 mg 10/23/24 12:53 10/23/24 13:02 Acetaminophen 500mg Tab PO 10/23/24 12:54 1,000 mg ONCE ONE Administration Iopamidol 80 ml 10/23/24 13:32 10/23/24 13:34 Iopamidol-370 (76%);100ml Bottle IV 10/23/24 13:33 80 ml ONCE ONE Administration Lidocaine 1 each 10/23/24 12:53 10/23/24 13:02 Lidocaine 5% Transdermal Patch TP 10/23/24 12:54 1 each ONCE ONE Administration Methocarbamol 500 mg 10/23/24 12:53 10/23/24 13:02 Methocarbamol 500mg Tablet PO 10/23/24 12:54 500 mg ONCE ONE Administration Sodium Chloride 50 ml 10/23/24 13:32 10/23/24 13:34 0.9 % Sodium Chloride 50 Ml Vial IV 10/23/24 13:33 50 ml ONCE ONE Administration Sodium Chloride 10 ml 10/23/24 13:32 10/23/24 13:34 Sodium Chloride 0.9% 10ml Syr (Rad Only) IV 10/23/24 13:33 10 ml ONCE ONE Administration ORDERS Category Date Time Status CT angio head Stat Cat Scan 10/23/24 12:[address] angio neck Stat Cat Scan 10/23/24 12:[address] cervical spine wo con Stat Cat Scan 10/23/24 12:[address] head/brain wo con Stat Cat Scan 10/23/24 12:53 Completed CBC w/Auto Diff [Complete Blood Count Auto Diff] Stat Lab 10/23/24 12:39 Completed CMP [Comprehensive Metabolic Panel] Stat Lab 10/23/24 12:39 Completed HIV (1&2) Antibody Rapid Stat Lab 10/23/24 12:39 Completed Hep C Ab with Reflex to RNA Stat Lab 10/23/24 12:39 Received INR [Prothrombin Time INR] Stat Lab 10/23/24 12:39 Completed Trop I [Troponin I] Stat Lab 10/23/24 12:39 Completed ECG holter initial pfn Stat Y 10/23/24 14:58 Completed ECG Data Tracing #1: I reviewed this ECG and interpreted as documented below: (Sinus rhythm 63 beats a minute. RI 202, QRS 91, QTc 412. Borderline leftward axis. No acute ischemic change.) Medical Decision Narrative: In summary patient is a 54-year-old male who presents to the emergency department for evaluation of syncope. Patient is currently hemodynamically stable upon arrival, afebrile. Physical exam is remarkable for tenderness to palpation in the occiput and the top of the cervical spine in the midline but no evidence of hematoma ecchymosis or abrasions. [place] Coma Score is 15 pupils were round reactive to light and patient is awake alert and oriented to person place and circumstance. Differential diagnosis includes vasovagal syncope versus cardiogenic syncope versus orthostatic hypotension etc. Initial workup will be conducted with hematologic labs CT scans of the head and CTA of the head and neck. Initial interventions include Tylenol ibuprofen Robaxin. Initial workup reviewed by me shows his hematologic labs nonactionable my informal interpretation of his imaging shows no acute processes.. Upon repeat evaluation patient did have some moderate improvement in his symptoms. Given this I am going to place a Holter monitor so we can capture EKG and cardiac data although we ideally need blood pressure at same time. I am referring the patient back to cardiology for evaluation and consideration of discontinuing the patient's metoprolol as he may have medication induced symptoms. I was consulted by the KRYSTAL, and we discussed the complexity of the problems being addressed. I approved the treatment and management plan for this patient's care in the Emergency Department, thus performing a substantive portion of the medical decision making. Ronnie Dumont MD Critical Care <LIVE Rose - Last Filed: 10/23/24 21:15> Critical Care Time Critical Care Time: No
--- NOTE | 2024-10-23 12:35 | ECG_ITS ---
APPROVED REPORT Exam: Resting ECG HR:63 bpm ECG Measurements Heart Rate 63 AXES OH 202 P 38 QRSd 91 QRS 7 QT 405 T 34 QTc 412 Conclusion Sinus rhythm Electronically signed by : SABINE JOHNSON, 10/23/2024 15:00:20
--- NOTE | 2024-10-23 12:53 | CT_ITS ---
FINAL REPORT TECHNIQUE: Thin section axial images were obtained from skull base to vertex without contrast. Coronal reconstruction images were obtained from the axial data. Exam was performed using dose reduction technique. CLINICAL HISTORY: Syncope and collapse COMPARISON: 08/28/2023 FINDINGS: There is no mass effect or midline shift. There is no hydrocephalus. There is no intracranial hemorrhage. The posterior fossa is without acute abnormality. The basilar cisterns are preserved. The soft tissues are without acute abnormality. No acute osseous abnormality is identified. IMPRESSION: No acute intracranial abnormality. Reviewed, Interpreted and Dictated by Kecia Jurado MD Transcribed by Sharmila Paz Authenticated and [facility]
--- NOTE | 2024-10-23 12:55 | CT_ITS ---
FINAL REPORT TECHNIQUE: Thin section axial images were obtained through the cervical spine without contrast. Multiplanar reconstruction images were obtained from the axial data. Exam was performed using dose reduction techniques. CLINICAL HISTORY: Syncope trauma, critical injury suspected FINDINGS: There is no acute fracture or acute malalignment of the cervical spine. There is no evidence of unilateral or bilateral facet lock. Vertebral body height is preserved. There is multilevel degenerative disc disease most pronounced at C5-6. No acute paraspinal abnormality is identified. IMPRESSION: No acute osseous abnormality of the cervical spine. Reviewed, Interpreted and Dictated by Kecia Jurado MD Transcribed by Sharmila Paz Authenticated and . [facility]
--- NOTE | 2024-10-23 12:55 | CT_ITS ---
FINAL REPORT TECHNIQUE: Thin section axial images are obtained through the brain after intravenous contrast injection. Multiplanar reconstructions were obtained from the axial data. Exam was performed using dose reduction technique per the ALARA principal. CLINICAL HISTORY: Syncope trauma, critical injury suspected FINDINGS: The intracerebral portions of the carotid arteries are patent. The anterior, middle, and posterior cerebral arteries are patent. The basilar artery is patent. The vertebral are patent. There is no significant stenosis, aneurysm, or AVM. IMPRESSION: No evidence of large vessel occlusion or significant stenosis. Reviewed, Interpreted and Dictated by Kecia Jurado MD Transcribed by Sharmila Paz Authenticated and [facility]
--- NOTE | 2024-10-23 12:55 | CT_ITS ---
FINAL REPORT TECHNIQUE: Thin section axial CT with IV contrast supplemented with multiplanar reconstruction under CT angiogram protocol. This study was performed with techniques to keep radiation doses as low as reasonably achievable (ALARA). Individualized dose reduction techniques using automated exposure control or adjustment of mA and/or kV according to the patient''s size were employed. NASCET criteria was utilized during interpretation. CLINICAL HISTORY: Syncope trauma, critical injury suspected FINDINGS: Aortic arch: Arch shows no significant narrowing. Great vessel origins are widely patent. Right carotid: There is mild calcified plaque at the right carotid bulb with no significant stenosis. The carotid artery is patent to the skull base. Left carotid: There is mild calcified plaque at the left carotid bulb with no significant stenosis. The carotid artery is patent to the skull base. Vertebral: The vertebral arteries are patent. No significant stenosis is present. IMPRESSION: No significant carotid artery stenosis. Reviewed, Interpreted and Dictated by Kecia Jurado MD Transcribed by Sharmila Paz Authenticated and [facility]
[2024-10-23 13:01] VITALS: BP 144/78; PULSE 61; RESP 13; O2SAT 97
[2024-10-23] MEDS: METHOCARBAMOL 500MG TABLET 500 MG PO (13:02)
[2024-10-23] MEDS: ACETAMINOPHEN 500MG TAB 1000 MG PO (13:02)
[2024-10-23] MEDS: LIDOCAINE 5% TRANSDERMAL PATCH 1 EACH TP (13:02)
[2024-10-23 13:03] LABS: Basophils # 0.1 K/mm3 (0-0.2); Basophils % 0.9 % (0.1-2.0); Eosinophils # 0.2 K/mm3 (0.0-0.4); Eosinophils % 2.9 % (0.1-12.0); Hematocrit 46.9 % (42.0-52.0); Hemoglobin 15.7 g/dL (14.1-18.0); Lymphocytes # 1.3 K/mm3 (0.7-4.5); Lymphocytes % 16.2 % (10-50); Mean Corpuscular HGB Conc 33.5 g/dL (31.8-35.4); Mean Corpuscular Hemoglobin 28.7 pg (27.0-31.2); Mean Corpuscular Volume 85.6 fl (80-94); Mean Platelet Volume 7.4 fl (7.4-10.4); Monocytes # 0.6 K/mm3 (0.1-1.0); Monocytes % 7.9 % (1.7-9.3); Neutrophils # 5.7 K/mm3 (1.8-7.8); Neutrophils % 72.1 % (37.0-80.0); Platelet Count 185 K/mm3 (142-424); Red Blood Count 5.48 M/mm3 (4.60-6.20); Red Cell Distribution Width 15.4 % (11.5-17.5); White Blood Count 7.9 K/mm3 (4.8-10.8)
[2024-10-23 13:06] LABS: Albumin Level 4.4 g/dl (3.5-5.0); Chloride 102 mmol/L (98-107); Sodium 138 mmol/L (136-145)
[2024-10-23 13:07] LABS: Potassium 4.2 mmoL/L (3.5-5.1)
[2024-10-23 13:09] LABS: Alanine Aminotransferase 35 U/L (12-78); Alkaline Phosphatase 114 U/L (38-126); Anion Gap 10.2 mEq/L (5-15); Aspartate Amino Transferase 46 U/L (17-59); Bilirubin,Total 0.7 mg/dl (0.2-1.3); Blood Urea Nitrogen 36 mg/dl (9-20); Carbon Dioxide 30 mmol/L (22.0-30.0); Creatinine Clearance Estimated 81 mL/min (50-200); Estimated Glomerular Filt Rate 49 ml/min (>60); GFR (African American) 59 ML/MIN (>60)
[2024-10-23 13:10] LABS: Albumin/Globulin Ratio 1.6 (1.1-1.8); Calcium 9.4 mg/dl (8.4-10.2); Globulin 2.8 g/dL (1.3-3.2); Glucose 120 mg/dl (74-100); INR 0.93 (0.9-1.1); Prothrombin Time 10.5 seconds (10.1-12.5); Total Protein,Serum 7.2 g/dl (6.3-8.2)
[2024-10-23 13:26] LABS: Troponin I < 0.01 ng/ml (0.00-0.034)
[2024-10-23] MEDS: IOPAMIDOL-370 (76%);100ML BOTTLE 80 ML IV (13:34)
[2024-10-23] MEDS: 0.9 % SODIUM CHLORIDE 50 ML VIAL IV (13:34)
[2024-10-23] MEDS: SODIUM CHLORIDE 0.9% 10ML SYR (RAD ONLY) 10 ML IV (13:34)
[2024-10-23 14:01] VITALS: BP 140/72; PULSE 64; RESP 10; O2SAT 95
[2024-10-23 14:31] VITALS: BP 135/78; PULSE 66; RESP 15; O2SAT 97
[2024-10-23 15:18] VITALS: BP 139/80; PULSE 62; RESP 16; TEMP 36.7
[2024-10-23 16:13] LABS: HIV (1&2) Antibody Rapid NONREACTIVE (NONREACTIVE)
[2024-10-24 08:32] LABS: HCV Ab Non Reactive (Non Reactive)
== END 2024-10-23 15:19 | disposition home or self-care (01) ==
PROVIDERS: Physician Assistant; Emergency Provider Emergency Medicine; PCP Family Medicine
DX: R55 Syncope and collapse (principal); R42 Dizziness and giddiness
CPT/HCPCS: 70450; 70496; 70498; 72125; 80053; 84484; 85025; 85610; 86803; 87389; 93005; 93225; 93227; 99285; Q9967

== ENCOUNTER 2025-02-21 12:37 | Outpatient (CLI) | payer MEDICAID, SELFPAY ==
--- NOTE | 2025-02-21 13:00 | CT_ITS ---
FINAL REPORT TECHNIQUE: Axial images of the head were obtained without contrast. Coronal reformatted images were also obtained. This study was performed with techniques to keep radiation doses as low as reasonably achievable (ALARA). Individualized dose reduction techniques using automated exposure control or adjustment of mA and/or kV according to the patient's size were employed. CLINICAL HISTORY: Numbness in left side and involuntary movement, dizziness COMPARISON: 10/23/2024 FINDINGS: There is mild atrophy. There is no evidence of intracranial hemorrhage or mass. The ventricular size is within normal limits. There is no evidence of shift of the midline structures. No skull abnormality is seen on the bone window images. The paranasal sinuses are well-aerated. IMPRESSION: Mild atrophy without acute intracranial process. Reviewed, Interpreted and Dictated by Cricket Menon MD Transcribed by Adrianna Wagner Authenticated and [facility]
== END 2025-02-21 23:59 | disposition home or self-care (01) ==
LOC: RAD 12:37
PROVIDERS: PCP Family Medicine; Visit Provider Nurse Practitioner Family
DX: R25.9 Unspecified abnormal involuntary movements (principal); R20.0 Anesthesia of skin; R20.2 Paresthesia of skin
CPT/HCPCS: 70450

== ENCOUNTER 2025-03-18 14:45 | Emergency (ER) | payer MEDICAID, SELFPAY ==
[2025-03-18 15:04] VITALS: BP 158/81; PULSE 80; RESP 18; TEMP 36.6; O2SAT 99; BMI 30.2
--- OUTSIDE RECORDS SUMMARY | 2025-03-18 15:11 | XMS_ITS | Clinical Summary ---
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 Name Role Phone Quyen Vincent DO Primary Care Provider [phone] Chris DE LA CRUZ, Vannessa Allison Unavailable [phone] Reason for Visit and Chief Complaint The Chief Complaint is: low back pain Problems Includes: Problems addressed during this encounter and other active Problems Current Visit Onset Date Resolved Date Provider Conditio n Status Lower Back Pain 10/09/2020 Horacio Zamudio MD Act farnaz Last Documented On 0 9:26AM ; [facility], [facility] Past Visits Onset Date Resolved Date Provider Condition Status Neck Pain 10/09/2020 Horacio Zamudio MD Active Last Documented On 0 9:26AM ; [facility], [facility] Joint Pain, Localized in the Left Shoulder 07/20/2018 Vannessa Perez MD Active Last Documented On 8 8:04AM ; [facility], [facility] Plan of Treatment Patient was seen by myself Jayjay Wang PA-C. Patient will follow up 6 weeks we will start with some formal physical therapy if this is not help we will consider other imaging - Last Documented On 03/10/2025 12:59PM ; [facility], [facility] Future Appointments Date Time Location Provi luis antonio Post Op 03/20/2025 11:00AM [facility] Horacio Zamudio MD Last Documented On 5 1:12PM ; [facility] Follow Up 04/23/2025 1:15[facility] Wang PA-C Last Documented On 5 8:59AM ; [facility], [facility] Instructions to patient Lose weight Last Documented On 5 8:18AM ; [facility], [facility] Assessments Includes: Assessments from this encounter Findings - Overweight - Last Documented On 03/10/2025 12:59PM ; [facility], [facility] Neck pain in the right arm pain - Last Documented On 03/10/2025 12:59PM ; [facility], [facility] Instructions Includes: Instructions from this encounter Instructions to patient Lose weight Last Documented On 5 8:18AM ; [facility], [facility] Medical Equipment - Implanted Devices Includes: Current Devices No Medical Equipment Recorded Medications Includes: Medications discussed during this encounter and other current Medications Current Medications (continue as prescribed) Sertraline HCl 200 MG Oral Capsule 03/10/2025 Provid er: Diagnosis: Last Documented On 5 10:06AM By Arthur Loving ; [facility], [facility] Ranolazine ER 1000 MG Oral Packet 03/10/2025 Provide r: Diagnosis: Last Documented On 5 10:06AM By Arthur Loving ; [facility], [facility] Ranolazine ER 1000 MG Oral Tablet Extended Release 12 Hour 03/03/2025 Provider: Diagnosis: Last Documented On 5 8:18AM By Arthur Loving ; [facility], [facility] Folic Acid 1 MG Oral Tablet 02/25/2025 Provider: Quyen Vincent DO Diagnosis: Last Documented On 5 8:18AM By Arthur Loving ; [facility], [facility] Vitamin D (Ergocalciferol) 1 .25 MG (02263 UT) Oral Capsule 02/25/2025 Provider: Quyen Vincent DO Diagnosis: Last Documented On 5 8:18AM By Arthur Loving ; [facility], [facility] Sucralfate 1 GM/10ML Oral Suspension 01/14/2025 Prov ider: Diagnosis: Last Documented On 5 8:18AM By Arthur Loving ; [facility], [facility] oxyCODONE-Acetaminophen 5-325 MG Oral Tablet Provider: Horacio Zamudio MD Diagnosis: Last Documented On 5 8:18AM By Arthur Loving ; [facility] HumaLOG 100 UNIT/ML Injection Solution 12/13/2024 Pr ovider: Diagnosis: Last Documented On 5 8:18AM By Arthur Loving ; [facility] traMADol HCl 50 MG Oral Tablet 12/12/2024 Provider: Quyen Vincent DO Diagnosis: Last Documented On 5 8:18AM By Arthur Loving ; [facility] buPROPion HCl 75 MG Oral Tablet 12/09/2024 Provider: Diagnosis: Last Documented On 5 8:18AM By Arthur Loving ; [facility] amLODIPine Besylate 2.5 MG Oral Tablet 11/05/2024 Pr ovider: Quyen Vincent DO Diagnosis: Last Documented On 5 8:18AM By Arthur Loving ; [facility], [facility] Midodrine HCl 5 MG Oral Tablet 11/05/2024 Provider: Diagnosis: Last Documented On 5 8:18AM By Arthur Loving ; [facility], [facility] Pantoprazole Sodium 40 MG Oral Tablet Delayed Release 11/05/2024 Provider: Diagnosis: Last Documented On 5 8:18AM By Arthur Loving ; [facility], [facility] Gabapentin 300 MG Oral Capsule 06/12/2024 Provider: Georgina Marshall DO Diagnosis: Last Documented On 4 10:47AM By Deborah Gant ; [facility], [facility] Dexcom G6 Sensor Miscellaneous 06/10/2024 Provider: Diagnosis: Last Documented On 4 10:47AM By Deborah Gant ; [facility], [facility] Insulin Lispro 100 UNIT/ML Injection Solution 06/10/20 Provider: Diagnosis: Last Documented On 4 10:47AM By Deborah Gant ; [facility] tiZANidine HCl 4 MG Oral Tablet 06/05/2024 Provider: Quyen Vincent DO Diagnosis: Last Documented On 4 10:47AM By Deborah Gant ; [facility], [facility] metFORMIN HCl ER 500 MG Oral Tablet Extended Rel ease 24 Hour 06/05/2024 Provider: Diagnosis: Last Documented On 4 10:47AM By Deborah Gant ; [facility] Primidone 50 MG Oral Tablet 06/02/2024 Provider: Georgina Marshall DO Diagnosis: Last Documented On 4 10:47AM By Deborah Gant ; [facility] Promethazine HCl 25 MG Oral Tablet 05/29/2024 Provid er: Quyen Vincent DO Diagnosis: Last Documented On 4 10:47AM By Deborah Gant ; [facility] Atorvastatin Calcium 40 MG Oral Tablet 05/25/2024 Pr ovider: Diagnosis: Last Documented On 4 10:47AM By Deborah Gant ; [facility], [facility] Bisoprolol Fumarate 5 MG Oral Tablet 05/25/2024 Prov ider: Diagnosis: Last Documented On 4 10:47AM By Deborah Gant ; [facility], [facility] Jardiance 10 MG Oral Tablet 05/16/2024 Provider: Diagnosis: Last Documented On 4 10:47AM By Deborah Gant ; [facility], [facility] Brilinta 90 MG Oral Tablet 05/05/2024 Provider: Diagnosis: Last Documented On 4 10:47AM By Deborah Gant ; [facility], [facility] Aspirin Low Dose 81 MG Oral Tablet Delayed Release 10/2024 Provider: Diagnosis: Last Documented On 4 10:47AM By Deborah Gant ; [facility], [facility] Sertraline HCl 100 MG Oral Tablet 04/07/2024 Provide r: Quyen Vincent DO Diagnosis: Last Documented On 4 10:47AM By Deborah Gant ; [facility], [facility] Dexcom G6 Transmitter Miscellaneous 02/16/2024 Provi luis antonio: Diagnosis: Last Documented On 4 10:47AM By Deborah Gant ; [facility], [facility] NovoLOG 100 UNIT/ML Injection Solution 01/29/2024 Pr ovider: Diagnosis: Last Documented On 4 10:47AM By Deborah Gant ; [facility] Naproxen 500 MG Oral Tablet 01/11/2024 Provider: Diagnosis: Last Documented On 4 10:47AM By Deborah Gant ; [facility] Past Medications on file Percocet 5-325 MG Oral Tablet 01/07/2025 - 01/17/2025 Provider: Horacio Zamudio MD Diagnosis: 1 tab every 6 hrs prn pain Last Documented On 5 2:53PM By Horacio Zamudio ; [facility] Percocet 5-325 MG Oral Tablet 12/25/2024 - 01/09/2025 Provider: Horacio Zamudio MD Diagnosis: 1 po q 4h prn pain Last Documented On 5 8:29AM By Horacio Zamudio ; [facility] Meloxicam 15 MG Oral Tablet 06/27/2024 - 08/26/2024 Pr ovider: Horacio Zamudio MD Diagnosis: Take one tablet my mouth once a day Last Documented On 4 11:02AM By Wendi Gibbons ; [facility] traMADol HCl 50 MG Oral Tablet 12/25/2020 - 03/25/2021 Provider: Casper Negrete MD Diagnosis: Take 1 tablet every 8 hrs prn pain Last Documented On 1 4:04PM By Casper Negrete ; [facility] Dexamethasone Sodium Phosphate 4MG/ML Injection Solution 09/24/2018 - 10/24/2018 Provider: Vannessa song MD Diagnosis: 1 30 cc vial/ use as directe d for iontophoresis for physical therapy// Last Documented On 8 11:10AM By Maya Chisholm ; [facility] Lortab 7.5-500 MG OR TABS 09/04/2013 - 09/09/2013 Prov ider: Vannessa Perez MD Diagnosis: sx on 09-05-13ks Last Documented On 3 8:53AM By Tatum 1 User ; [facility] Lortab 5-500 MG OR TABS 08/19/2013 - 08/29/2013 Provid er: Vannessa Perez MD Diagnosis: ks Last Documented On 3 6:45PM By Laura Cee ; [facility] ARTHROCREAM PLUS TDG 05/14/2013 - 06/13/2013 Provider: Vannessa Perez MD Diagnosis: ab Last Documented On 3 8:50AM By Tatum 1 User ; [facility] Ultram 50 MG OR TABS 08/15/2012 - 08/27/2012 Provider: Vannessa Perez MD Diagnosis: kw Last Documented On 2 9:31AM By Laura Cee ; [facility] Ultram 50 MG OR TABS 05/28/2012 - 06/27/2012 Provider: Vannessa Perez MD Diagnosis: Last Documented On 2 9:03AM By Yael Boyle ; [facility] Phenergan 25 MG OR TABS 08/05/2009 - 08/10/2009 Provid er: Vannessa Perez MD Diagnosis: bhcalled to [phone] Last Documented On 9 3:34PM By Tatum 1 User ; [facility] Lortab 7.5-500 MG OR TABS 07/31/2009 - 08/05/2009 Prov ider: Vannessa Perez MD Diagnosis: bhsx 08/04/09 Last Documented On 9 10:53AM By Tatum 1 User ; [facility] Lortab 7.5-500 MG OR TABS 05/11/2009 - 05/21/2009 Prov ider: Vannessa Perez MD Diagnosis: rp Last Documented On 9 9:08AM By Tatum 2 User ; [facility] Naproxen 500 MG OR TABS 05/11/2009 - 06/10/2009 Provid er: LEÓN JACOBSON Diagnosis: rp Last Documented On 9 9:07AM By Tatum 2 User ; [facility] Motrin 800 MG OR TABS 02/12/2008 - 03/13/2008 Provider : Vannessa Perez MD Diagnosis: bh Last Documented On 8 1:51PM By Tatum 1 User ; [facility] Lortab 7.5-500 MG OR TABS 06/21/2007 - 06/28/2007 Prov ider: Vannessa Perez MD Diagnosis: as needed for painbh Last Documented On 7 9:11AM By Tatum 3 User ; [facility], [facility] DENIED EX MISC 06/07/2007 - 06/08/2007 Provider: Rere Aranda MD Diagnosis: pt can take tylenol 500 mg 1 -2 q 4-6 hrs and advil or ibuprofen 2 of them 3 x a day until f/u for mri results/ left message with patients for h Last Documented On 7 9:39AM By Lesley Escamilla ; [facility], [facility] Medications Administered Includes: Administered Medications from this encounter No Administered Medications Recorded Vital Signs Includes: Vital Signs from this encounter Vital Name 03/10/2025 09:19A 03/10/2025 09: 19A Height (in) 74 74 Weight (lb) 240 240 Body Mass Index 30.8 30.8 Body Surface Area 2.3 2.3 Pain Level 7 Last Documented: On 03/10/2025 9:19AM ; [facility] On 03/10/2025 9:19AM ; [facility] Results Includes: Results discussed during this encounter No Results Recorded For Specified Dates History of Present Illness Includes: History of Present Illness from this encounter MAR Delgado is a 54 year old male. - Symptoms catching, popping, grinding pain better=lidocaine patches pain worse=moving right arn far from body. - Allergy list reviewed - Problem list reviewed - Medication list reviewed - Previous history of new onset pain no specific injury, unkwon, 2 years of pain - Sharp pain Symptoms - Pain is constant (100% of the time) - Patient pain level from 1-10: 6 - No previous treatment. - - Review of medications documented Patient is here today with complaints of neck pain some pain will radiate out to the top of the left shoulder and just below the shoulder. No recent injury he says his neck will pop and grab with movements of his neck. This has been worse over the last 2-3 weeks 5 to 7/10 pain he has tried some [id number] ibuprofen and lidocaine patches which do helps to some degree. Denies any balance issues bowel or bladder issues with this does get some associated headaches with this Social History Description Last Updated Recent change in diet diabetic 4 Last Documented On 5 8:18AM ; [facility], [facility] Not a current smoker. 06/27/2024 Last Documented On 5 8:18AM ; [facility] No caffeine use 07/16/2021 Last Documented On 5 8:18AM ; [facility] No recent change in diet 07/16/2021 Last Documented On 5 8:18AM ; [facility], [facility] Not a current smoker. 07/16/2021 Last Documented On 5 8:18AM ; [facility], [facility] Not using alcohol 07/16/2021 Last Documented On 5 8:18AM ; [facility], [facility] Not using drugs 07/16/2021 Last Documented On 5 8:18AM ; [facility], [facility] Non-smoker 11/30/2020 Last Documented On 5 8:18AM ; [facility], [facility] No tobacco use 07/20/2018 Last Documented On 5 8:18AM ; [facility] Smoking status : Former smoker 8 Last Documented On 5 8:18AM ; [facility] Not a current smoker 07/20/2018 Last Documented On 5 8:18AM ; [facility], [facility] Not exercising regularly 10/13/2016 Last Documented On 5 8:18AM ; [facility], [facility] Procedures and Surgical History Includes: Procedures from this encounter Procedures Code Diagnosis Performing Provider Service Location Service Date X-RAY EXAM OF NECK SPINE 2 VIEWS 18003 Radiculopathy, cervical region Jayjay Wang PA-C [facility] 03/10/2025 Last Documented On 5 12:42PM ; [facility], [facility] CT scan [facility] [address] Last Documented On 5 8:18AM ; [facility], [facility] Surgical History Last Updated History of back surgery L4-5 Open Decomp ression & Fusion 12/25/24 02/11/2025 Last Documented On 5 8:18AM ; [facility], [facility] Past Surgical History: left elbow surger y 02/11/2025 Last Documented On 5 8:18AM ; [facility], [facility] History of History of Gallbladder 2023 Last Documented On 5 8:18AM ; [facility] History of total knee arthroplasty 06/27 Last Documented On 5 8:18AM ; [facility] History of appendectomy 10/13/2016 Last Documented On 5 8:18AM ; [facility] History of heart surgery 10/13/2016 Last Documented On 5 8:18AM ; [facility], [facility] History of hernia repair 10/13/2016 Last Documented On 5 8:18AM ; [facility], [facility] Medical History Includes: Medical History addressed during this encounter Description Last Updated History of arthritis 06/27/2024 Last Documented On 5 8:18AM ; [facility] History of Heartburn / Acid Reflux 06/27 Last Documented On 5 8:18AM ; [facility] History of Hypertension 06/27/2024 Last Documented On 5 8:18AM ; [facility] History of Sleep Apnea 06/27/2024 Last Documented On 5 8:18AM ; [facility] Use of CPAP 06/27/2024 Last Documented On 5 8:18AM ; [facility] No recent immunization for pneumococcal pneumonia 07/16/2021 Last Documented On 5 8:18AM ; [facility] A recent immunization for flu 11/30/2020 Last Documented On 5 8:18AM ; [facility] left elbow surgery 07/20/2018 Last Documented On 5 8:18AM ; [facility] Arthritic joint problems 10/13/2016 Last Documented On 5 8:18AM ; [facility] Gallbladder disease 10/13/2016 Last Documented On 5 8:18AM ; [facility] History of depression 10/13/2016 Last Documented On 5 8:18AM ; [facility] History of diabetes mellitus 10/13/2016 Last Documented On 5 8:18AM ; [facility] History of heart disease 10/13/2016 Last Documented On 5 8:18AM ; [facility] Intermittent hypertension 10/13/2016 Last Documented On 5 8:18AM ; [facility], [facility] Family History Includes: Family History addressed during this encounter Description Last Updated Diabetes mellitus 11/30/2020 Last Documented On 5 8:18AM ; [facility] Family history of heart disease 11/30/19 21 Last Documented On 5 8:18AM ; [facility] Family history of hypertension 1 Last Documented On 5 8:18AM ; [facility] lupus 07/20/2018 Last Documented On 5 8:18AM ; [facility] Paternal history of diabetes mellitus Last Documented On 5 8:18AM ; [facility] Maternal history of diabetes mellitus Last Documented On 5 8:18AM ; [facility] Family history of diabetes mellitus 09/27 Last Documented On 5 8:18AM ; [facility] Maternal history of hypertension 016 Last Documented On 5 8:18AM ; [facility] Review of Systems Includes: Review of Systems from this encounter Systemic: Feeling tired. No recent weight loss and no recent weight gain. Head: No headache and no sinus pain. Eyes: No vision problems and no Cataracts. Glasses/Contacts. No Glaucoma. Otolaryngeal: No hearing loss and no tinnitus. Cardiovascular: Chest pain or discomfort. No palpitations. Hypertension. No High Cholesterol. Pulmonary: No daytime asthma symptoms and no chronic cough. No wheezing. Gastrointestinal: No heartburn. Abdominal pain and Indigestion. No Peptic Ulcer, no GI Stomach Bleed, no Ulcers, and no Acid Reflux. Endocrine: No hot flashes and no muscle weakness. Diabetes. No Hypothyroid and no Hyperthyroid. Hematologic: No easy bleeding. A tendency for easy bruising. No Anemia. Musculoskeletal: Arthritis and lower back pain. No soft tissue swelling and no localized joint pain. Neurological: Dizziness. No convulsions. Numbness. Psychological: Anxiety. No emotional lability. Depression. No insomnia. Not crying for no reason. Skin: No dry skin. No Ulcers, no Scars, and no rash. Allergic and Immunologic: Complaint of seasonal allergic reaction. Mental Status Includes: Mental Status from this encounter Description Anxiety Functional Status Includes: Functional Status from this encounter No Functional Status Recorded Physical Exam Includes: Physical Exam from this encounter Allergies Includes: Active Allergies Substance Type Reaction Onset Date Resolved Date Statu s Penicillins Allergy 03/31/2006 Active Last Documented On 5 8:18AM ; [facility] Encounters Encounter Provider Location Date Check-In Time Check-Out Time Diagnosis NEW PROBLEM/EST PT Jayjay Wang PA-C [facility] 03/10/20 25 8:12AM 9:01AM Overweight Insurance Includes: Active Insurance Policies Plan Name Member ID Group # Subscriber Relationship Effect farnaz Dates 1 - [employer] [id number] Jonathan Delgado Self 11/27/2024 - Unknown Clinical Notes Includes: Clinical Notes from this encounter * Progress note Date Encounter Last Documented by 03/10/2025 NEW PROBLEM/EST PT Last document ed on 03/10/2025; 12:59 PM, Jayjay Wang PA-C; [facility] Active Problems & Conditions - Joint Pain, Localized in the Left Shoulder - Lower Back Pain - Neck Pain Chief Complaint The Chief Complaint is: Low back pain. Referred Here Referred by PCP. History of Present Illness Jonathan Delgado is a 54 year old male. - Symptoms catching, popping, grinding pain better=lidocaine patches pain worse=moving right arn far from body. - Allergy list reviewed - Problem list reviewed - Medication list reviewed - Previous history of new onset pain no specific injury, unkwon, 2 years of pain - Sharp pain Symptoms - Pain is constant (100% of the time) - Patient pain level from 1-10: 6 - No previous treatment. - - Review of medications documented Patient is here today with complaints of neck pain some pain will radiate out to the top of the left shoulder and just below the shoulder. No recent injury he says his neck will pop and grab with movements of his neck. This has been worse over the last 2-3 weeks 5 to 10 pain he has tried some [id number] ibuprofen and lidocaine patches which do helps to some degree. Denies any balance issues bowel or bladder issues with this does get some associated headaches with this Current Medication - amLODIPine Besylate 2.5 MG Oral Tablet 90 days, 0 refills - Aspirin Low Dose 81 MG Oral Tablet Delayed Release 90 days, 0 refills - Atorvastatin Calcium 40 MG Oral Tablet 90 days, 0 refills - Bisoprolol Fumarate 5 MG Oral Tablet 90 days, 0 refills - Brilinta 90 MG Oral Tablet 90 days, 0 refills - buPROPion HCl 75 MG Oral Tablet 90 days, 0 refills - Dexcom G6 Sensor Miscellaneous 30 days, 0 refills - Dexcom G6 Transmitter Miscellaneous 90 days, 0 refills - Folic Acid 1 MG Oral Tablet 90 days, 0 refills - Gabapentin 300 MG Oral Capsule 90 days, 0 refills - HumaLOG 100 UNIT/ML Injection Solution 88 days, 0 refills - Insulin Lispro 100 UNIT/ML Injection Solution 90 days, 0 refills - Jardiance 10 MG Oral Tablet 90 days, 0 refills - metFORMIN HCl ER 500 MG Oral Tablet Extended Release 24 Hour 90 days, 0 refills - Midodrine HCl 5 MG Oral Tablet 30 days, 0 refills - Naproxen 500 MG Oral Tablet 10 days, 0 refills - NovoLOG 100 UNIT/ML Injection Solution 24 days, 0 refills - oxyCODONE-Acetaminophen 5-325 MG Oral Tablet 10 days, 0 refills - Pantoprazole Sodium 40 MG Oral Tablet Delayed Release 90 days, 0 refills - Primidone 50 MG Oral Tablet 90 days, 0 refills - Promethazine HCl 25 MG Oral Tablet 10 days, 0 refills - Ranolazine ER 1000 MG Oral Packet take as directed 0 days, 0 refills - Ranolazine ER 1000 MG Oral Tablet Extended Release 12 Hour 90 days, 0 refills - Sertraline HCl 100 MG Oral Tablet 90 days, 0 refills - Sertraline HCl 200 MG Oral Capsule take as directed 0 days, 0 refills - Sucralfate 1 GM/10ML Oral Suspension 30 days, 0 refills - tiZANidine HCl 4 MG Oral Tablet 10 days, 0 refills - traMADol HCl 50 MG Oral Tablet 7 days, 0 refills - Vitamin D (Ergocalciferol) 1.25 MG (60846 UT) Oral Capsule 84 days, 0 refills Past Medical/Surgical History Reported: Use of CPAP. Medical: Gallbladder disease and joint problems arthritic. Intermittent hypertension. Immunization History: Recent immunization for flu. No recent immunization for pneumococcal pneumonia. Diagnoses: Heart disease. Sleep Apnea Heartburn / Acid Reflux Hypertension. Diabetes mellitus. Arthritis. Depression Left elbow surgery. Surgical: - Heart surgery - Appendectomy - Past Surgical History: left elbow surgery - Hernia repair - History of Gallbladder - Back surgery L4-5 Open Decompression & Fusion 12/25/24 - Total knee arthroplasty Social History Not a current smoker. Not a current smoker. Current diet: No recent change in diet. Recent change in diet diabetic. Caffeine use: No caffeine use. Tobacco use: No tobacco use and not a current smoker. Non-smoker. Smoking status: Former smoker. Alcohol: Not using alcohol. Drug Use: Not using drugs. Habits: Not exercising regularly. Allergies - Penicillins Family History Heart disease Diabetes mellitus Systemic hypertension Diabetes mellitus Paternal: Diabetes mellitus Maternal: Systemic hypertension Diabetes mellitus Lupus Review Of Systems Systemic: Feeling tired. No recent weight loss and no recent weight gain. Head: No headache and no sinus pain. Eyes: No vision problems and no Cataracts. Glasses/Contacts. No Glaucoma. Otolaryngeal: No hearing loss and no tinnitus. Cardiovascular: Chest pain or discomfort. No palpitations. Hypertension. No High Cholesterol. Pulmonary: No daytime asthma symptoms and no chronic cough. No wheezing. Gastrointestinal: No heartburn. Abdominal pain and Indigestion. No Peptic Ulcer, no GI Stomach Bleed, no Ulcers, and no Acid Reflux. Endocrine: No hot flashes and no muscle weakness. Diabetes. No Hypothyroid and no Hyperthyroid. Hematologic: No easy bleeding. A tendency for easy bruising. No Anemia. Musculoskeletal: Arthritis and lower back pain. No soft tissue swelling and no localized joint pain. Neurological: Dizziness. No convulsions. Numbness. Psychological: Anxiety. No emotional lability. Depression. No insomnia. Not crying for no reason. Skin: No dry skin. No Ulcers, no Scars, and no rash. Allergic and Immunologic: Complaint of seasonal allergic reaction. Physical Findings - Vitals taken 03/10/2025 09:19 am Height 74 in Weight 240 lbs Body Mass Index 30.8 kg/m2 Body Surface Area 2.3 m2 - Vitals taken 03/10/2025 09:19 am Height 74 in Weight 240 lbs Body Mass Index 30.8 kg/m2 Body Surface Area 2.3 m2 Pain Level 7 Cervical range motion is limited for all planes. 5/5 biceps triceps deltoids wrist extension and flexion strength no long tract findings Tests Cervical x-rays two views 03/10/2025 show some degenerative changes at C5-C6 Assessment - Overweight Neck pain in the right arm pain Previous Tests Imaging: CT Scan: CT scan [facility]. Available previous imaging studies were reviewed Available previous history reviewed Counseling/Education - Tobacco non-user - Use of tobacco assessment performed - Lose weight Plan Patient was seen by myself Jayjay Wang PA-C. Patient will follow up 6 weeks we will start with some formal physical therapy if this is not help we will consider other imaging Notes This dictation was done with voice recognition software and may contain errors and omissions. Care Team - Quyen Vincent DO - [employer] Health Reminders - Assess BMI satisfied 03/10/2025. - Assess Tobacco Use satisfied 07/20/2018. - Follow Up Plan BMI Management satisfied 03/10/2025.
--- OUTSIDE RECORDS SUMMARY | 2025-03-18 15:11 | XMS_ITS | Clinical Summary ---
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 Role Phone Quyen Vincent DO Primary Care Provider [phone] Chris DE LA CRUZ, Vannessa Allison Unavailable [phone] Reason for Visit and Chief Complaint [Patient Encounter] Problems Includes: Problems addressed during this encounter and other active Problems All Visits Onset Date Resolved Date Provider Condition S tatus Neck Pain 10/09/2020 Horacio Zamudio MD Active Last Documented On 0 9:26AM ; [facility], [facility] Lower Back Pain 10/09/2020 Horacio Zamudio MD Act farnaz Last Documented On 0 9:26AM ; [facility], [facility] Joint Pain, Localized in the Left Shoulder 07/20/2018 Vannessa Perez MD Active Last Documented On 8 8:04AM ; [facility], [facility] Plan of Treatment Pending Tests Order Diagnosis Results Due Ordering P rovider Radiology - MRI MRI Lumbar Spine Low back pain, unspecified 07/11/24 Horacio Zamudio MD Last Documented On 5 1:29PM ; [facility], [facility] Future Appointments Date Time Location Provi luis antonio Post Op 03/20/2025 11:00AM [facility] Horacio Zamudio MD Last Documented On 5 1:12PM ; [facility], [facility] Follow Up 04/23/2025 1:15PM [facility] TREY Wang PA-C Last Documented On 5 8:59AM ; [facility], [facility] Assessments Includes: Assessments from this encounter No Assessments Recorded Medical Equipment - Implanted Devices Includes: Current Devices No Medical Equipment Recorded Medications Includes: Medications discussed during this encounter and other current Medications New / Renewed during this visit Horacio Zamudio MD on 12/25/2024 Percocet 5-325 MG Oral Tablet Provider: Horacio Zamudio MD 15 day supply: 50 tablet, 0 refills Diagnosis: 1 po q 4h prn pain Pharmacy: [address], [address] - Last Documented On 5 8:29AM By Horacio Zamudio ; [facility] Current Medications (continue as prescribed) Sertraline HCl 200 MG Oral Capsule 03/10/2025 Provid er: Diagnosis: Last Documented On 5 10:06AM By Arthur Loving ; [facility], [facility] Ranolazine ER 1000 MG Oral Packet 03/10/2025 Provide r: Diagnosis: Last Documented On 5 10:06AM By Arthur Loving ; [facility], [facility] Ranolazine ER 1000 MG Oral Tablet Extended Release 12 Hour 03/03/2025 Provider: Diagnosis: Last Documented On 5 8:18AM By Arthur Loving ; [facility], [facility] Folic Acid 1 MG Oral Tablet 02/25/2025 Provider: Quyen Vinecnt DO Diagnosis: Last Documented On 5 8:18AM By Arthur Loving ; [facility], [facility] Vitamin D (Ergocalciferol) 1 .25 MG (28432 UT) Oral Capsule 02/25/2025 Provider: Quyen Vincent DO Diagnosis: Last Documented On 5 8:18AM By Arthur Loving ; [facility], [facility] Sucralfate 1 GM/10ML Oral Suspension 01/14/2025 Prov ider: Diagnosis: Last Documented On 5 8:18AM By Arthur Loving ; [facility] oxyCODONE-Acetaminophen 5-325 MG Oral Tablet 5 Provider: Horacio Zamudio MD Diagnosis: Last Documented On 5 8:18AM By Arthur Loving ; [facility] HumaLOG 100 UNIT/ML Injection Solution 12/13/2024 Pr ovider: Diagnosis: Last Documented On 5 8:18AM By Arthur Loving ; [facility] traMADol HCl 50 MG Oral Tablet 12/12/2024 Provider: Quyen Vincent DO Diagnosis: Last Documented On 5 8:18AM By Arthur Loving ; [facility] buPROPion HCl 75 MG Oral Tablet 12/09/2024 Provider: Diagnosis: Last Documented On 5 8:18AM By Arthur Loving ; [facility] amLODIPine Besylate 2.5 MG Oral Tablet 11/05/2024 Pr ovider: Quyen Vincent DO Diagnosis: Last Documented On 5 8:18AM By Arthur Loving ; [facility], [facility] Midodrine HCl 5 MG Oral Tablet 11/05/2024 Provider: Diagnosis: Last Documented On 5 8:18AM By Arthur Loving ; [facility], [facility] Pantoprazole Sodium 40 MG Oral Tablet Delayed Release 11/05/2024 Provider: Diagnosis: Last Documented On 5 8:18AM By Arthur Loving ; [facility], [facility] Gabapentin 300 MG Oral Capsule 06/12/2024 Provider: Georgina Marshall DO Diagnosis: Last Documented On 4 10:47AM By Deborah Gant ; [facility], [facility] Dexcom G6 Sensor Miscellaneous 06/10/2024 Provider: Diagnosis: Last Documented On 4 10:47AM By Deborah Gant ; [facility] Insulin Lispro 100 UNIT/ML Injection Solution 06/10/20 Provider: Diagnosis: Last Documented On 4 10:47AM By Deborah Gant ; [facility] tiZANidine HCl 4 MG Oral Tablet 06/05/2024 Provider: Quyen Vincent DO Diagnosis: Last Documented On 4 10:47AM By Deborah Gant ; [facility], [facility] metFORMIN HCl ER 500 MG Oral Tablet Extended Rel ease 24 Hour 06/05/2024 Provider: Diagnosis: Last Documented On 4 10:47AM By Deborah Gant ; [facility] Primidone 50 MG Oral Tablet 06/02/2024 Provider: Georgina Marshall DO Diagnosis: Last Documented On 4 10:47AM By Deborah Gant ; [facility] Promethazine HCl 25 MG Oral Tablet 05/29/2024 Provid er: Quyen Vincent DO Diagnosis: Last Documented On 4 10:47AM By Deborah Gant ; [facility] Atorvastatin Calcium 40 MG Oral Tablet 05/25/2024 Pr ovider: Diagnosis: Last Documented On 4 10:47AM By Deborah Gant ; [facility] Bisoprolol Fumarate 5 MG Oral Tablet 05/25/2024 Prov ider: Diagnosis: Last Documented On 4 10:47AM By Deborah Gant ; [facility], [facility] Jardiance 10 MG Oral Tablet 05/16/2024 Provider: Diagnosis: Last Documented On 4 10:47AM By Deborah Gant ; [facility] Brilinta 90 MG Oral Tablet 05/05/2024 Provider: Diagnosis: Last Documented On 4 10:47AM By Deborah Gant ; [facility], [facility] Aspirin Low Dose 81 MG Oral Tablet Delayed Release 10/2024 Provider: Diagnosis: Last Documented On 4 10:47AM By Deborah Gant ; [facility] Sertraline HCl 100 MG Oral Tablet 04/07/2024 Provide r: Quyen Vincent DO Diagnosis: Last Documented On 4 10:47AM By Deborah Gant ; [facility] Dexcom G6 Transmitter Miscellaneous 02/16/2024 Provi luis antonio: Diagnosis: Last Documented On 4 10:47AM By Deborah Gant ; [facility] NovoLOG 100 UNIT/ML Injection Solution 01/29/2024 Pr ovider: Diagnosis: Last Documented On 4 10:47AM By Deborah Gant ; [facility] Naproxen 500 MG Oral Tablet 01/11/2024 Provider: Diagnosis: Last Documented On 4 10:47AM By Deborah [facility], [facility] Medications Administered Includes: Administered Medications from this encounter No Administered Medications Recorded Results Includes: Results discussed during this encounter No Results Recorded For Specified Dates History of Present Illness Includes: History of Present Illness from this encounter No History of Present Illness Recorded Social History No Social History Recorded - Smoking Status Unknown Medical History Includes: Medical History addressed during this encounter No Medical History Recorded Family History Includes: Family History addressed during this encounter No Family History Recorded Review of Systems Includes: Review of Systems from this encounter No Review of Systems Recorded Mental Status Includes: Mental Status from this encounter No Mental Status Recorded Functional Status Includes: Functional Status from this encounter No Functional Status Recorded Physical Exam Includes: Physical Exam from this encounter No Physical Exam Recorded Allergies Includes: Active Allergies Substance Type Reaction Onset Date Resolved Date Statu s Penicillins Allergy 03/31/2006 Active Last Documented On 5 8:18AM ; [facility], [facility] Encounters Encounter Provider Location Date Check-In Time Check-Out Time Diagnosis [Patient Encounter] Horacio Zamudio MD 12/25/2024 8:29AM 11:59PM Insurance Includes: Active Insurance Policies Plan Name Member ID Group # Subscriber Relationship Effect farnaz Dates 1 - [employer] [id number] Jonathanjustine Delgado Self 11/27/2024 - Unknown Clinical Notes Includes: Clinical Notes from this encounter No Clinical Notes Recorded
--- OUTSIDE RECORDS SUMMARY | 2025-03-18 15:11 | XMS_ITS ---
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
--- OUTSIDE RECORDS SUMMARY | 2025-03-18 15:11 | XMS_ITS | Clinical Summary ---
Author Organization [facility] , 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 Past Visits Onset Date Resolved Date Provider Condition Status Neck Pain 10/09/2020 Horacio Zamudio MD Active Last Documented On 0 9:26AM ; [facility], [facility] Joint Pain, Localized in the Left Shoulder 07/20/2018 Vannessa Perez MD Active Last Documented On 8 8:04AM ; [facility], [facility] Plan of Treatment Patient was seen by myself Jayjay Wang PA-C. Patient will follow up 4 weeks repeat lumbar spine x-rays with Dr. Zamudio we will get his delio out today continue restrictions no bending lifting or twisting - Last Documented On 01/13/2025 8:13AM ; [facility], [facility] Future Appointments Date Time Location Provi luis antonio Post Op 03/20/2025 11:00AM [facility] Horacio Zamudio MD Last Documented On 5 1:12PM ; [facility], [facility] Follow Up 04/23/2025 1:15PM [facility] RODNEY Wang PA-C Last Documented On 5 8:59AM ; [facility], [facility] Instructions to patient Lose weight Last Documented On 5 1:48PM ; [facility], [facility] Assessments Includes: Assessments from this encounter Findings - Overweight - Last Documented On 01/13/2025 8:13AM ; [facility], [facility] L4-L5 fusion went 12/25/2024 - Last Documented On 01/13/2025 8:13AM ; [facility], [facility] Instructions Includes: Instructions from this encounter Instructions to patient Lose weight Last Documented On 5 1:48PM ; [facility], [facility] Medical Equipment - Implanted Devices Includes: Current Devices No Medical Equipment Recorded Medications Includes: Medications discussed during this encounter and other current Medications Current Medications (continue as prescribed) Sertraline HCl 200 MG Oral Capsule 03/10/2025 Provid er: Diagnosis: Last Documented On 5 10:06AM By Arthur Loving ; [facility] Ranolazine ER 1000 MG Oral Packet 03/10/2025 Provide r: Diagnosis: Last Documented On 10:06AM By Arthur Loving ; [facility] Ranolazine ER 1000 MG Oral Tablet Extended Release 12 Hour 03/03/2025 Provider: Diagnosis: Last Documented On 5 8:18AM By Arthur Loving ; [facility], [facility] Folic Acid 1 MG Oral Tablet 02/25/2025 Provider: Quyen Vincent DO Diagnosis: Last Documented On 5 8:18AM By Arthur Loving ; [facility] Vitamin D (Ergocalciferol) 1 .25 MG (85228 UT) Oral Capsule 02/25/2025 Provider: Quyen Vincent DO Diagnosis: Last Documented On 5 8:18AM By Arthur Loving ; [facility], [facility] Sucralfate 1 GM/10ML Oral Suspension 01/14/2025 Prov ider: Diagnosis: Last Documented On 5 8:18AM By Arthur Loving ; [facility], [facility] oxyCODONE-Acetaminophen 5-325 MG Oral Tablet 02/11/202 5 Provider: Horacio Zamudio MD Diagnosis: Last Documented On 5 8:18AM By Arthur Loving ; [facility], [facility] HumaLOG 100 UNIT/ML Injection Solution 12/13/2024 Pr ovider: Diagnosis: Last Documented On 5 8:18AM By Arthur Loving ; [facility] traMADol HCl 50 MG Oral Tablet 12/12/2024 Provider: Quyen Vincent DO Diagnosis: Last Documented On 5 8:18AM By Arthur Loving ; [facility] buPROPion HCl 75 MG Oral Tablet 12/09/2024 Provider: Diagnosis: Last Documented On 5 8:18AM By Arthur Loving ; [facility] amLODIPine Besylate 2.5 MG Oral Tablet 11/05/2024 Pr ovider: Quyen Vincent DO Diagnosis: Last Documented On 5 8:18AM By Arthur Loving ; [facility] Midodrine HCl 5 MG Oral Tablet 11/05/2024 Provider: Diagnosis: Last Documented On 5 8:18AM By Arthur Loving ; [facility] Pantoprazole Sodium 40 MG Oral Tablet Delayed Release 11/05/2024 Provider: Diagnosis: Last Documented On 5 8:18AM By Arthur Loving ; [facility] Gabapentin 300 MG Oral Capsule 06/12/2024 Provider: Georgina Marshall DO Diagnosis: Last Documented On 4 10:47AM By Deborah Gant ; [facility], [facility] Dexcom G6 Sensor Miscellaneous 06/10/2024 Provider: Diagnosis: Last Documented On 4 10:47AM By Deborah Gant ; [facility] Insulin Lispro 100 UNIT/ML Injection Solution 06/10/20 Provider: Diagnosis: Last Documented On 4 10:47AM By Deborah Gant ; [facility] tiZANidine HCl 4 MG Oral Tablet 06/05/2024 Provider: Quyen Vincent DO Diagnosis: Last Documented On 4 10:47AM By Deborah Gant ; [facility] metFORMIN HCl ER 500 MG Oral Tablet Extended Rel ease 24 Hour 06/05/2024 Provider: Diagnosis: Last Documented On 4 10:47AM By Deborah Gant ; [facility], [facility] Primidone 50 MG Oral Tablet 06/02/2024 Provider: Georgina Marshall DO Diagnosis: Last Documented On 4 10:47AM By Deborah Gant ; [facility], [facility] Promethazine HCl 25 MG Oral Tablet 05/29/2024 Provid er: Quyen Vincent DO Diagnosis: Last Documented On 4 10:47AM By Deborah Gant ; [facility], [facility] Atorvastatin Calcium 40 MG Oral Tablet 05/25/2024 Pr ovider: Diagnosis: Last Documented On 4 10:47AM By Deborah Gant ; [facility], [facility] Bisoprolol Fumarate 5 MG Oral Tablet 05/25/2024 Prov ider: Diagnosis: Last Documented On 4 10:47AM By Deborah Gant ; [facility], [facility] Jardiance 10 MG Oral Tablet 05/16/2024 Provider: Diagnosis: Last Documented On 4 10:47AM By Deborah Gant ; [facility], [facility] Brilinta 90 MG Oral Tablet 05/05/2024 Provider: Diagnosis: Last Documented On 4 10:47AM By Deborah Gant ; [facility], [facility] Aspirin Low Dose 81 MG Oral Tablet Delayed Release 10/2024 Provider: Diagnosis: Last Documented On 4 10:47AM By Deborah Gant ; [facility], [facility] Sertraline HCl 100 MG Oral Tablet 04/07/2024 Provide r: Quyen Vincent DO Diagnosis: Last Documented On 4 10:47AM By Deborah Gant ; [facility], [facility] Dexcom G6 Transmitter Miscellaneous 02/16/2024 Provi luis antonio: Diagnosis: Last Documented On 4 10:47AM By Deborah Gant ; [facility], [facility] NovoLOG 100 UNIT/ML Injection Solution 01/29/2024 Pr ovider: Diagnosis: Last Documented On 4 10:47AM By Deborah Gant ; [facility] Naproxen 500 MG Oral Tablet 01/11/2024 Provider: Diagnosis: Last Documented On 4 10:47AM By Deborah Gant ; [facility] Past Medications on file Percocet 5-325 MG Oral Tablet 01/07/2025 - 01/17/2025 Provider: Horacio Zamudio MD Diagnosis: 1 tab every 6 hrs prn pain Last Documented On 5 2:53PM By Horacio Zamudio ; [facility] Percocet 5-325 MG Oral Tablet 12/25/2024 - 01/09/2025 Provider: Horacio Zamudio MD Diagnosis: 1 po q 4h prn pain Last Documented On 5 8:29AM By Horacio Zamudio ; [facility] Meloxicam 15 MG Oral Tablet 06/27/2024 - 08/26/2024 Pr ovider: Horacio Zamudio MD Diagnosis: Take one tablet my mouth once a day Last Documented On 4 11:02AM By Wendi Gibbons ; [facility] traMADol HCl 50 MG Oral Tablet 12/25/2020 - 03/25/2021 Provider: Casper Negrete MD Diagnosis: Take 1 tablet every 8 hrs prn pain Last Documented On 1 4:04PM By Casper Negrete ; [facility] Dexamethasone Sodium Phosphate 4MG/ML Injection Solution 09/24/2018 - 10/24/2018 Provider: Vannessa song MD Diagnosis: 1 30 cc vial/ use as directe d for iontophoresis for physical therapy// Last Documented On 8 11:10AM By Maya Chisholm ; [facility] Lortab 7.5-500 MG OR TABS 09/04/2013 - 09/09/2013 Prov ider: Vannessa Perez MD Diagnosis: sx on 09-05-ks Last Documented On 3 8:53AM By Tatum 1 User ; [facility] Lortab 5-500 MG [...] er: Vannessa Perez MD Diagnosis: bhcalled to [phone] Last Documented On 9 3:34PM By Tatum [...] 8 1:51PM By Tatum 1 User ; [facility] Lortab 7.5-500 MG OR TABS 06/21/2007 - 06/28/2007 Prov ider: Vannessa Perez MD Diagnosis: as needed for painbh Last Documented On 7 9:11AM By Tatum 3 User ; [facility] DENIED EX MISC 06/07/2007 - 06/08/2007 Provider: Rere Aranda MD Diagnosis: pt can take tylenol 500 mg 1 -2 q 4-6 hrs and advil or ibuprofen 2 of them 3 x a day until f/u for mri results/ left message with patients for h Last Documented On 7 9:39AM By Lesley Escamilla ; [facility] Medications Administered Includes: Administered Medications from this encounter No Administered Medications Recorded Vital Signs Includes: Vital Signs from this encounter Vital Name 01/08/2025 01:39P Height (in) 74 Weight (lb) 239 Body Mass Index 30.7 Body Surface Area 2.3 Pain Level 7 Note: MT Last Documented: On 01/08/2025 1:39PM ; [facility] Results Includes: Results discussed during this encounter No Results Recorded For Specified Dates History of Present Illness Includes: History of Present Illness from this encounter MAR Delgado is a 54 year old male. - Allergy list reviewed - Problem list reviewed - Medication list reviewed - - Review of medications documented Follow up L4-L5 fusion 12/25/2024 says he is doing some better. Social History Description Last Updated Recent change in diet diabetic 4 Last Documented On 5 1:48PM ; [facility] Not a current smoker. 06/27/2024 Last Documented On 5 1:48PM ; [facility] No caffeine use 07/16/2021 Last Documented On 5 1:48PM ; [facility] No recent change in diet 07/16/2021 Last Documented On 5 1:48PM ; [facility] Not a current smoker. 07/16/2021 Last Documented On 5 1:48PM ; [facility] Not using alcohol 07/16/2021 Last Documented On 5 1:48PM ; [facility], [facility] Not using drugs 07/16/2021 Last Documented On 5 1:48PM ; [facility], [facility] Non-smoker 11/30/2020 Last Documented On 5 1:48PM ; [facility], [facility] No tobacco use 07/20/2018 Last Documented On 5 1:48PM ; [facility], [facility] Smoking status : Former smoker 8 Last Documented On 5 1:48PM ; [facility], [facility] Not a current smoker 07/20/2018 Last Documented On 5 1:48PM ; [facility], [facility] Not exercising regularly 10/13/2016 Last Documented On 5 1:48PM ; [facility], [facility] Procedures and Surgical History Includes: Procedures from this encounter Procedures Code Diagnosis Performing Provider Service Location Service Date X-RAY EXAM OF LOWER SPINE 2-3 VIEWS LIMITED 94582 Spinal stenosis, lumbar region with neurogenic claudication, Spondylolisthesi s, lumbar region Jayjay Wang PA-C [facility] 01/08/2025 Last Documented On 5 9:23AM ; [facility] CT scan [facility] [id number] Last Documented On 5 1:48PM ; [facility], [facility] Surgical History Last Updated History of History of Gallbladder 2023 Last Documented On 5 1:48PM ; [facility], [facility] History of total knee arthroplasty 06/27 Last Documented On 5 1:48PM ; [facility], [facility] History of appendectomy 10/13/2016 Last Documented On 5 1:48PM ; [facility] History of heart surgery 10/13/2016 Last Documented On 5 1:48PM ; [facility], [facility] History of hernia repair 10/13/2016 Last Documented On 5 1:48PM ; [facility], [facility] Medical History Includes: Medical History addressed during this encounter Description Last Updated History of arthritis 06/27/2024 Last Documented On 5 1:48PM ; [facility] History of Heartburn / Acid Reflux 06/27 Last Documented On 5 1:48PM ; [facility], [facility] History of Hypertension 06/27/2024 Last Documented On 5 1:48PM ; [facility] History of Sleep Apnea 06/27/2024 Last Documented On 5 1:48PM ; [facility] Use of CPAP 06/27/2024 Last Documented On 5 1:48PM ; [facility], [facility] No recent immunization for pneumococcal pneumonia 07/16/2021 Last Documented On 5 1:48PM ; [facility] A recent immunization for flu 11/30/2020 Last Documented On 5 1:48PM ; [facility] Back surgery L4-L5 Microdecompression Last Documented On 5 1:48PM ; [facility] History of Arthroscopy Left Elbow 2020 Last Documented On 5 1:48PM ; [facility] left elbow surgery 07/20/2018 Last Documented On 5 1:48PM ; [facility] Arthritic joint problems 10/13/2016 Last Documented On 5 1:48PM ; [facility] Gallbladder disease 10/13/2016 Last Documented On 5 1:48PM ; [facility] History of depression 10/13/2016 Last Documented On 5 1:48PM ; [facility] History of diabetes mellitus 10/13/2016 Last Documented On 5 1:48PM ; [facility] History of heart disease 10/13/2016 Last Documented On 5 1:48PM ; [facility] Intermittent hypertension 10/13/2016 Last Documented On 5 1:48PM ; [facility] Family History Includes: Family History addressed during this encounter Description Last Updated Diabetes mellitus 11/30/2020 Last Documented On 5 1:48PM ; [facility] Family history of heart disease 11/30/19 21 Last Documented On 5 1:48PM ; [facility], [facility] Family history of hypertension 1 Last Documented On 5 1:48PM ; [facility] lupus 07/20/2018 Last Documented On 5 1:48PM ; [facility] Paternal history of diabetes mellitus Last Documented On 5 1:48PM ; [facility] Maternal history of diabetes mellitus Last Documented On 5 1:48PM ; [facility] Family history of diabetes mellitus 09/27 Last Documented On 5 1:48PM ; [facility] Maternal history of hypertension 016 Last Documented On 5 1:48PM ; [facility] Review of Systems Includes: Review of Systems [...] Active Last Documented On 5 8:18AM ; [facility], [facility] Encounters Encounter Provider Location Date Check-In Time Check-Out Time Diagnosis Post Op Jayjay Wang PA-C [facility] [place] 5 1:27PM 1:59PM Overweight Insurance Includes: Active Insurance Policies Plan Name Member ID Group # Subscriber Relationship Effect franaz Dates 1 - [employer] [id number] Jonathan Delgado Self 11/27/2024 - Unknown Clinical Notes Includes: Clinical Notes from this encounter * Progress note Date Encounter Last Documented by 01/08/2025 Post Op Last documented on 01/13/2025; 8:13 AM, Jayjay Wang PA-C; [facility] Active Problems & Conditions - Joint Pain, Localized in the Left Shoulder - Lower Back Pain - Neck Pain Chief Complaint The Chief Complaint is: Low back pain. Referred Here Referred by PCP. History of Present Illness Jonathan Delgado is a 54 year old male. - Allergy list reviewed - Problem list reviewed - Medication list reviewed - - Review of medications documented Follow up L4-L5 fusion 12/25/2024 says he is doing some better. Current Medication - Aspirin Low Dose 81 MG Oral [...] Transmitter Miscellaneous 90 days, 0 refills - Gabapentin 300 MG Oral Capsule 90 days, 0 refills - Insulin Lispro 100 UNIT/ML Injection Solution 90 days, 0 refills - Jardiance 10 MG Oral Tablet 90 days, 0 refills - metFORMIN HCl ER 500 MG Oral Tablet Extended Release 24 Hour 90 days, 0 refills - Naproxen 500 MG Oral Tablet 10 days, 0 refills - NovoLOG 100 UNIT/ML Injection Solution 24 days, 0 refills - Percocet 5-325 MG Oral Tablet 1 tab every 6 hrs prn pain, 10 days, 0 refills - Primidone 50 MG Oral Tablet 90 days, 0 refills - Promethazine HCl 25 MG Oral Tablet 10 days, 0 refills - Sertraline HCl 100 MG Oral Tablet 90 days, 0 refills - tiZANidine HCl 4 MG Oral Tablet 10 days, 0 refills Past Medical/Surgical History Reported: Use of CPAP. Medical: Gallbladder disease and joint problems arthritic. Intermittent hypertension. Immunization History: Recent immunization for flu. No recent immunization for pneumococcal pneumonia. Diagnoses: Heart disease. Sleep Apnea Heartburn / Acid Reflux Hypertension. Diabetes mellitus. Arthritis. Depression Left elbow surgery. Surgical: - Heart surgery - Appendectomy - Hernia repair - History of Gallbladder - Back surgery L4-L5 Microdecompression - History of Arthroscopy Left Elbow - Total knee arthroplasty Social History Not [...] allergic reaction. Physical Findings - Vitals taken 01/08/2025 01:39 pm MT Height 74 in Weight 239 lbs Body Mass Index 30.7 kg/m2 Body Surface Area 2.3 m2 Pain Level 7 Incision clean dry intact no sign of any infection Tests Two views of the lumbar spine show everything in good position 01/08/25 Assessment - Overweight L4-L5 fusion went 12/25/2024 Previous Tests Imaging: CT Scan: CT scan [facility]. Available previous imaging studies were reviewed Available previous history reviewed Counseling/Education - Tobacco non-user - Use of tobacco assessment performed - Lose weight Plan Patient was seen by myself Jayjay Wang PA-C. Patient will follow up 4 weeks repeat lumbar spine x-rays with Dr. Zamudio we will get his delio out today continue restrictions no bending lifting or twisting Notes This dictation was done with voice recognition software and may contain errors and omissions. Care Team - Quyen Vincent DO - [employer] [facility] Reminders - Assess BMI satisfied 01/08/2025. - Assess Tobacco Use satisfied 01/08/2025. - Follow Up Plan BMI Management satisfied 01/08/2025.
--- OUTSIDE RECORDS SUMMARY | 2025-03-18 15:12 | XMS_ITS | Clinical Summary ---
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 Name Role Phone Quyen Vincent DO Primary Care Provider [phone] Chris DE LA CRUZ, Vannessa Allison Unavailable [phone] Reason for Visit and Chief Complaint The Chief Complaint is: low back pain Problems Includes: Problems addressed during this encounter and other active Problems Current Visit Onset Date Resolved Date Provider Conditio n Status Lower Back Pain 10/09/2020 Horacio Zamudio MD Act farnaz Last Documented On 0 9:26AM ; [facility] Past Visits Onset Date Resolved Date Provider Condition Status Neck Pain 10/09/2020 Horacio Zamudio MD Active Last Documented On 0 9:26AM ; [facility], [facility] Joint Pain, Localized in the Left Shoulder 07/20/2018 Vannessa Perez MD Active Last Documented On 8 8:04AM ; [facility], [facility] Plan of Treatment Patient was seen by myself and Dr. Robb Wang PA-C. Patient will follow up 6 weeks repeat lumbar spine x-rays he can weightbear as tolerated we are going to start him in his some physical therapy - Last Documented On 02/11/2025 9:42AM ; [facility], [facility] Pending Tests Order Diagnosis Results Due Ordering P rovider Radiology - MRI MRI Lumbar Spine Low back pain, unspecified 07/11/24 Horacio Zamudio MD Last Documented On 5 1:29PM ; [facility] Therapy - Physical Therapy Lumbar Low back pain Horacio Zamudio MD Last Documented On 5 9:42AM ; [facility], [facility] Future Appointments Date Time Location Provi luis antonio Post Op 03/20/2025 11:00AM [facility] CREEKStephania Zamudio MD Last Documented On 5 1:12PM ; [facility], [facility] Follow Up 04/23/2025 1:15PM [facility] CREEKStephania Wang PA-C Last Documented On 5 8:59AM ; [facility], [facility] Instructions to patient Lose weight Last Documented On 12:59PM ; [facility], [facility] Assessments Includes: Assessments from this encounter Findings - Overweight - Last Documented On 02/11/2025 9:42AM ; [facility], [facility] L4-L5 decompression fusion December 25, 2024 - Last Documented On 02/11/2025 9:42AM ; [facility], [facility] Instructions Includes: Instructions from this encounter Instructions to patient Lose weight Last Documented On 5 12:59PM ; [facility], [facility] Medical Equipment - Implanted Devices Includes: Current Devices No Medical Equipment Recorded Medications Includes: Medications discussed during this encounter and other current Medications Current Medications (continue as prescribed) Sertraline HCl 200 MG Oral Capsule 03/10/2025 Provid er: Diagnosis: Last Documented On 10:06AM By Arthur Lam [facility], [facility] Ranolazine ER 1000 MG Oral Packet 03/10/2025 Provide r: Diagnosis: Last Documented On 10:06AM By Arthur Lam [facility], [facility] Ranolazine ER 1000 MG Oral Tablet Extended Release 12 Hour 03/03/2025 Provider: Diagnosis: Last Documented On 5 8:18AM By Arthur Loving ; [facility], [facility] Folic Acid 1 MG Oral Tablet 02/25/2025 Provider: Quyen Vincent DO Diagnosis: Last Documented On 5 8:18AM By Arthur Loving ; [facility], [facility] Vitamin D (Ergocalciferol) 1 .25 MG (02832 UT) Oral Capsule 02/25/2025 Provider: Quyen Vincent DO Diagnosis: Last Documented On 5 8:18AM By Arthur Loving ; [facility], [facility] Sucralfate 1 GM/10ML Oral Suspension 01/14/2025 Prov ider: Diagnosis: Last Documented On 5 8:18AM By Arthur Loving ; [facility], [facility] oxyCODONE-Acetaminophen 5-325 MG Oral Tablet Provider: Horacio Zamudio MD Diagnosis: Last Documented On 5 8:18AM By Arthur Loving ; [facility], [facility] HumaLOG 100 UNIT/ML Injection Solution 12/13/2024 Pr ovider: Diagnosis: Last Documented On 5 8:18AM By Arthur Loving ; [facility], [facility] traMADol HCl 50 MG Oral Tablet 12/12/2024 Provider: Quyen Vincent DO Diagnosis: Last Documented On 5 8:18AM By Arthur Loving ; [facility], [facility] buPROPion HCl 75 MG Oral Tablet 12/09/2024 Provider: Diagnosis: Last Documented On 5 8:18AM By Arthur Loving ; [facility], [facility] amLODIPine Besylate 2.5 MG Oral Tablet 11/05/2024 Pr ovider: Quyen Vincent DO Diagnosis: Last Documented On 5 8:18AM By Arthur Loving ; [facility], [facility] Midodrine HCl 5 MG Oral Tablet 11/05/2024 Provider: Diagnosis: Last Documented On 5 8:18AM By Arthur Loving ; [facility], [facility] Pantoprazole Sodium 40 MG Oral Tablet Delayed Release 11/05/2024 Provider: Diagnosis: Last Documented On 5 8:18AM By Arthur Loving ; [facility], [facility] Gabapentin 300 MG Oral Capsule 06/12/2024 Provider: Georgina Marshall DO Diagnosis: Last Documented On 4 10:47AM By Deborah Gant ; [facility], [facility] Dexcom G6 Sensor Miscellaneous 06/10/2024 Provider: Diagnosis: Last Documented On 4 10:47AM By Deborah Gant ; [facility], [facility] Insulin Lispro 100 UNIT/ML Injection Solution 06/10/20 Provider: Diagnosis: Last Documented On 4 10:47AM By Deborah Gant ; [facility] tiZANidine HCl 4 MG Oral Tablet 06/05/2024 Provider: Quyen Vincent DO Diagnosis: Last Documented On 4 10:47AM By Deborah Gant ; [facility], [facility] metFORMIN HCl ER 500 MG Oral Tablet Extended Rel ease 24 Hour 06/05/2024 Provider: Diagnosis: Last Documented On 4 10:47AM By Deborah Gant ; [facility] Primidone 50 MG Oral Tablet 06/02/2024 Provider: Georgina Marshall DO Diagnosis: Last Documented On 4 10:47AM By Deborah Gant ; [facility] Promethazine HCl 25 MG Oral Tablet 05/29/2024 Provid er: Quyen Vincent DO Diagnosis: Last Documented On 4 10:47AM By Deborah Gant ; [facility], [facility] Atorvastatin Calcium 40 MG Oral Tablet 05/25/2024 Pr ovider: Diagnosis: Last Documented On 4 10:47AM By Deborah Gant ; [facility], [facility] Bisoprolol Fumarate 5 MG Oral Tablet 05/25/2024 Prov ider: Diagnosis: Last Documented On 4 10:47AM By Deborah Gant ; [facility], [facility] Jardiance 10 MG Oral Tablet 05/16/2024 Provider: Diagnosis: Last Documented On 4 10:47AM By Deborah Gant ; [facility] Brilinta 90 MG Oral Tablet 05/05/2024 Provider: Diagnosis: Last Documented On 4 10:47AM By Deborah Gant ; [facility] Aspirin Low Dose 81 MG Oral Tablet Delayed Release 10/2024 Provider: Diagnosis: Last Documented On 4 10:47AM By Deborah Gant ; [facility], [facility] Sertraline HCl 100 MG Oral Tablet 04/07/2024 Provide r: Quyen Vincent DO Diagnosis: Last Documented On 4 10:47AM By Deborah Gant ; [facility], [facility] Dexcom G6 Transmitter Miscellaneous 02/16/2024 Provi luis antonio: Diagnosis: Last Documented On 4 10:47AM By Deborah Gant ; [facility], [facility] NovoLOG 100 UNIT/ML Injection Solution 01/29/2024 Pr ovider: Diagnosis: Last Documented On 4 10:47AM By Deborah Gant ; [facility], [facility] Naproxen 500 MG Oral Tablet 01/11/2024 Provider: Diagnosis: Last Documented On 4 10:47AM By Deborah Gant ; [facility], [facility] Past Medications on file Percocet 5-325 MG Oral Tablet 01/07/2025 - 01/17/2025 Provider: Horacio Zamudio MD Diagnosis: 1 tab every 6 hrs prn pain Last Documented On 5 2:53PM By Horacio Zamudio ; [facility], [facility] Percocet 5-325 MG Oral Tablet 12/25/2024 - 01/09/2025 Provider: Horacio Zamudio MD Diagnosis: 1 po q 4h prn pain Last Documented On 5 8:29AM By Horacio Zamudio ; [facility], [facility] Meloxicam 15 MG Oral Tablet 06/27/2024 - 08/26/2024 Pr ovider: Horacio Zamudio MD Diagnosis: Take one tablet my mouth once a day Last Documented On 4 11:02AM By Wendi Gibbons ; [facility], [facility] traMADol HCl 50 MG Oral Tablet 12/25/2020 - 03/25/2021 Provider: Casper Negrete MD Diagnosis: Take 1 tablet every 8 hrs prn pain Last Documented On 1 4:04PM By Casper Negrete ; [facility], [facility] Dexamethasone Sodium Phosphate 4MG/ML Injection Solution 09/24/2018 - 10/24/2018 Provider: Vannessa song MD Diagnosis: 1 30 cc vial/ use as directe d for iontophoresis for physical therapy// Last Documented On 8 11:10AM By Maya Chisholm ; [facility] Lortab 7.5-500 MG OR TABS 09/04/2013 - 09/09/2013 Prov ider: Vannessa Perez MD Diagnosis: sx on 09-05-13ks Last Documented On 3 8:53AM By Tatum 1 User ; [facility] Lortab 5-500 MG OR TABS [...] er: Vannessa Perez MD Diagnosis: bhcalled to [phone] Last Documented On 9 3:34PM By Tatum [...] 9 9:07AM By Tatum 2 User ; [facility], [facility] Motrin 800 MG OR TABS 02/12/2008 - 03/13/2008 Provider : Vannessa Perez MD Diagnosis: bh Last Documented On 8 1:51PM By Tatum 1 User ; [facility], [facility] Lortab 7.5-500 MG OR TABS 06/21/2007 - 06/28/2007 Prov ider: Vannessa Perez MD Diagnosis: as needed for painbh Last Documented On 7 9:11AM By Tatum 3 User ; [facility], [facility] DENIED EX MISC 06/07/2007 - 06/08/2007 Provider: Rere Aranda MD Diagnosis: pt can take tylenol 500 mg 1 -2 q 4-6 hrs and advil or ibuprofen 2 of them 3 x a day until f/u for mri results/ left message with patients for h Last Documented On 7 9:39AM By Lesley Escamilla ; [facility], [facility] Medications Administered Includes: Administered Medications from this encounter No Administered Medications Recorded Vital Signs Includes: Vital Signs from this encounter Vital Name 02/06/2025 01:22P Height (in) 74 Weight (lb) 230 Body Mass Index 29.5 Body Surface Area 2.3 Pain Level 8 Last Documented: On 02/06/2025 1:22PM ; [facility], [facility] Results Includes: Results discussed during this encounter No Results Recorded For Specified Dates History of Present Illness Includes: History of Present Illness from this encounter MAR Delgado is a 54 year old male. - Allergy list reviewed - Problem list reviewed - Medication list reviewed - - Review of medications documented Patient is here today for follow up of his L4-L5 fusion 12/25/2024 standing for long periods of time still tends to bothers back and right hip area. He does feel that his leg is doing better overall pain level today rates it 8/10 Social History Description Last Updated Recent change in diet diabetic 4 Last Documented On 5 12:59PM ; [facility], [facility] Not a current smoker. 06/27/2024 Last Documented On 5 12:59PM ; [facility], [facility] No caffeine use 07/16/2021 Last Documented On 5 12:59PM ; [facility], [facility] Not using alcohol 07/16/2021 Last Documented On 5 12:59PM ; [facility], [facility] Not using drugs 07/16/2021 Last Documented On 5 12:59PM ; [facility], [facility] Smoking status : Former smoker Last Documented On 5 12:59PM ; [facility], [facility] Not exercising regularly 10/13/2016 Last Documented On 5 12:59PM ; [facility], [facility] Procedures and Surgical History Includes: Procedures from this encounter Procedures Code Diagnosis Performing Provider Service Location Service Date X-RAY EXAM OF LOWER SPINE 2-3 VIEWS LIMITED 40958 Fusion of spine, lumbar region Horacio Zamudio MD [facility] 02/06/2025 Last Documented On 5 4:51PM ; [facility], [facility] CT scan [facility] [id number] Last Documented On 5 12:59PM ; [facility], [facility] Surgical History Last Updated History of back surgery L4-5 Open Decomp ression & Fusion 12/25/24 02/11/2025 Last Documented On 5 9:42AM ; [facility], [facility] Past Surgical History: left elbow surger y 02/11/2025 Last Documented On 5 9:42AM ; [facility], [facility] History of History of Gallbladder 2023 Last Documented On 5 12:59PM ; [facility], [facility] History of total knee arthroplasty 06/27 Last Documented On 5 12:59PM ; [facility], [facility] History of appendectomy 10/13/2016 Last Documented On 5 12:59PM ; [facility], [facility] History of heart surgery 10/13/2016 Last Documented On 5 12:59PM ; [facility], [facility] History of hernia repair 10/13/2016 Last Documented On 5 12:59PM ; [facility], [facility] Medical History Includes: Medical History addressed during this encounter Description Last Updated History of arthritis 06/27/2024 Last Documented On 5 12:59PM ; [facility] History of Heartburn / Acid Reflux 06/27 Last Documented On 5 12:59PM ; [facility] History of Hypertension 06/27/2024 Last Documented On 5 12:59PM ; [facility] History of Sleep Apnea 06/27/2024 Last Documented On 5 12:59PM ; [facility] Use of CPAP 06/27/2024 Last Documented On 5 12:59PM ; [facility] Arthritic joint problems 10/13/2016 Last Documented On 5 12:59PM ; [facility] Gallbladder disease 10/13/2016 Last Documented On 5 12:59PM ; [facility] History of depression 10/13/2016 Last Documented On 5 12:59PM ; [facility] History of diabetes mellitus 10/13/2016 Last Documented On 5 12:59PM ; [facility] History of heart disease 10/13/2016 Last Documented On 5 12:59PM ; [facility] Intermittent hypertension 10/13/2016 Last Documented On 5 12:59PM ; [facility] Family History Includes: Family History addressed during this encounter Description Last Updated Family history of heart disease 11/30/19 21 Last Documented On 5 12:59PM ; [facility] lupus 07/20/2018 Last Documented On 5 12:59PM ; [facility] Paternal history of diabetes mellitus Last Documented On 5 12:59PM ; [facility] Maternal history of diabetes mellitus Last Documented On 5 12:59PM ; [facility] Maternal history of hypertension 016 Last Documented On 5 12:59PM ; [facility] Review of Systems Includes: Review [...] Active Last Documented On 5 8:18AM ; [facility] Encounters Encounter Provider Location Date Check-In Time Check-Out Time Diagnosis Post Op Horacio Zamudio MD [facility] 5 12:53PM 1:13PM Overweight Insurance Includes: Active Insurance Policies Plan Name Member ID Group # Subscriber Relationship Effect farnaz Dates 1 - [employer] [id number] Jonathan Delgado Self 11/27/2024 - Unknown Clinical Notes Includes: Clinical Notes from this encounter * Progress note Date Encounter Last Documented by 02/06/2025 Post Op Last documented on 02/11/2025; 9:42 AM, Horacio Zamudio MD; [facility] Active Problems & Conditions - Joint Pain, Localized in the Left Shoulder - Lower Back Pain - Neck Pain Chief Complaint The Chief Complaint is: Low back pain. Referred Here Referred by PCP. History of Present Illness Jonathan Delgado is a 54 year old male. - Allergy list reviewed - Problem list reviewed - Medication list reviewed - - Review of medications documented Patient is here today for follow up of his L4-L5 fusion 12/25/2024 standing for long periods of time still tends to bothers back and right hip area. He does feel that his leg is doing better overall pain level today rates it 07/06 Current Medication - Aspirin Low Dose 81 [...] Injection Solution 24 days, 0 refills - Primidone 50 MG Oral Tablet 90 days, 0 refills - Promethazine HCl 25 MG Oral Tablet 10 days, 0 refills - Sertraline HCl 100 MG Oral Tablet 90 days, 0 refills - tiZANidine HCl 4 MG Oral Tablet 10 days, 0 refills Past Medical/Surgical History Reported: Use of CPAP. Medical: Gallbladder disease and joint problems arthritic. Intermittent hypertension. Diagnoses: Heart disease. Sleep Apnea Heartburn / Acid Reflux Hypertension. Diabetes mellitus. Arthritis. Depression Surgical: - Heart surgery - Appendectomy - Past Surgical History: left elbow surgery - Hernia repair - History of Gallbladder - Back surgery L4-5 Open Decompression & Fusion 12/25/24 - Total knee arthroplasty Social History Not a current smoker. Current diet: Recent change in diet diabetic. Caffeine use: No caffeine use. Tobacco use: Smoking status: Former smoker. Alcohol: Not using alcohol. Drug Use: Not using drugs. Habits: Not exercising regularly. Allergies - Penicillins Family History Heart disease Paternal: Diabetes mellitus Maternal: Systemic hypertension Diabetes [...] allergic reaction. Physical Findings - Vitals taken 02/06/2025 01:22 pm Height 74 in Weight 230 lbs Body Mass Index 29.5 kg/m2 Body Surface Area 2.3 m2 Pain Level 8 The incision looks healed Walks with a normal gait strength 4+ out of 5 EHL and tibialis anterior bilaterally Negative straight leg raise bilaterally Tests Two views lumbar spine 02/06/2025 show everything in good position at L4-L5 Assessment - Overweight L4-L5 decompression fusion December 25, 2024 Previous Tests Imaging: CT Scan: CT scan [facility]. Available previous imaging studies were reviewed Available previous history reviewed Counseling/Education - Tobacco non-user - Use of tobacco assessment performed - Lose weight Plan StartCited - Low back pain Therapy/Physical Therapy: Lumbar Instructions: See PT order attached EndCited Patient was seen by myself and Dr. Robb Wang PA-C. Patient will follow up 6 weeks repeat lumbar spine x-rays he can weightbear as tolerated we are going to start him in his some physical therapy Notes This dictation was done with voice recognition software and may contain errors and omissions. Care Team - Quyen Vincent DO - [employer] Health Reminders - Assess BMI satisfied 02/06/2025. - Assess Tobacco Use satisfied 02/06/2025. - Follow Up Plan BMI Management satisfied 02/06/2025.
--- OUTSIDE RECORDS SUMMARY | 2025-03-18 15:12 | XMS_ITS ---
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 Name Role Phone Quyen Vincent DO Primary Care Provider [phone] Chris DE LA CRUZ, Vannessa Allison Unavailable [phone] Problems Includes: Active, inactive, and resolved Problems All Visits Onset Date Resolved Date Provider Condition S tatus Neck Pain 10/09/2020 Horacio Zamudio MD Active Last Documented On 0 9:26AM ; [facility] Lower Back Pain 10/09/2020 Horacio Zamudio MD Act farnaz Last Documented On 0 9:26AM ; [facility], [facility] Joint Pain, Localized in the Left Shoulder 07/20/2018 Vannessa Perez MD Active Last Documented On 8 8:04AM ; [facility], [facility] Joint Pain, Localized in the Knee 09/12/2013 Kale Zamudio MD Inactive Last Documented On 6 9:03AM ; [facility], [facility] Plan of Treatment Pending Tests Order Diagnosis Results Due Ordering P rovider Radiology - MRI MRI Shoulder 10/08/18 Comfort Perez MD Last Documented On 8 5:09PM ; [facility] Radiology - MRI MRI Lumbar Spine Low back pain, unspecifie d 07/11/24 Horacio Zamudio MD Last Documented On 5 1:29PM ; [facility] Future Appointments Date Time Location Provi luis antonio Post Op 03/20/2025 11:00AM [facility] WILTONStephania Zamudio MD Last Documented On 5 1:12PM ; [facility] Follow Up 04/23/2025 1:15PM [facility] Lissette FUENTESWILTONJOSEMANUEL Wang PA-C Last Documented On 5 8:59AM ; [facility] Instructions to patient Lose weight Last Documented On 5 8:18AM ; [facility] Lose weight Last Documented On 5 12:59PM ; [facility] Lose weight Last Documented On 5 1:48PM ; [facility] Lose weight Last Documented On 4 10:28AM ; [facility] Lose weight Last Documented On 4 10:51AM ; [facility] Instructions for patient to see pcp for weight and bp Last Documented On 8 8:42AM ; [facility] Lose weight Last Documented On 8 8:42AM ; [facility] Instructions for patient to see pcp for weight and bp Last Documented On 8 10:46AM ; [facility] Lose weight Last Documented On 8 10:46AM ; [facility] Instructions for patient to see pcp for weight and bp Last Documented On 8 8:11AM ; [facility] Lose weight Last Documented On 8 8:02AM ; [facility] Instructions for patient See PCP for weight loss plan Last Documented On 6 3:26PM ; [facility] Lose weight Last Documented On 6 3:26PM ; [facility] Instructions for patient See PCP for weight loss plan Last Documented On 6 8:59AM ; [facility] Lose weight Last Documented On 6 8:59AM ; [facility] Instructions for patient See PCP for weight loss plan Last Documented On 6 10:05AM ; [facility] Lose weight Last Documented On 6 10:05AM ; [facility] Instructions for patient See PCP for weight loss plan Last Documented On 6 2:24PM ; [facility] Lose weight Last Documented On 6 2:23PM ; [facility] Assessments Includes: Assessments for all patient encounters Findings Encounter Date Overweight NEW PROBLEM/EST PT with Jayjay Wang PA-C 03/10/2025 Last Documented On 5 12:59PM ; [facility] Overweight Post Op with Horacio Zamudio MD Last Documented On 5 9:42AM ; [facility] Overweight Post Op with Jayjay Wang PA-C 01/08/2025 Last Documented On 5 8:13AM ; [facility] Overweight Follow Up with Horacio Zamudio MD 07/18/2024 Last Documented On 5 1:28PM ; [facility] Overweight Physician Specified with Horacio Zamudio MD 06/27/2024 Last Documented On 5 1:29PM ; [facility] Instructions Includes: Instructions for all patient encounters Instructions to patient Lose weight Last Documented On 5 8:18AM ; [facility] Lose weight Last Documented On 5 12:59PM ; [facility] Lose weight Last Documented On 5 1:48PM ; [facility] Lose weight Last Documented On 4 10:28AM ; [facility] Lose weight Last Documented On 4 10:51AM ; [facility] Instructions for patient to see pcp for weight and bp Last Documented On 8 8:42AM ; [facility] Lose weight Last Documented On 8 8:42AM ; [facility] Instructions for patient to see pcp for weight and bp Last Documented On 8 10:46AM ; [facility] Lose weight Last Documented On 8 10:46AM ; [facility] Instructions for patient to see pcp for weight and bp Last Documented On 8 8:11AM ; [facility] Lose weight Last Documented On 8 8:02AM ; [facility] Instructions for patient See PCP for weight loss plan Last Documented On 6 3:26PM ; [facility] Lose weight Last Documented On 6 3:26PM ; [facility] Instructions for patient See PCP for weight loss plan Last Documented On 6 8:59AM ; [facility] Lose weight Last Documented On 6 8:59AM ; [facility] Instructions for patient See PCP for weight loss plan Last Documented On 6 10:05AM ; [facility] Lose weight Last Documented On 6 10:05AM ; [facility] Instructions for patient See PCP for weight loss plan Last Documented On 6 2:24PM ; [facility] Lose weight Last Documented On 6 2:23PM ; [facility], [facility] Medical Equipment - Implanted Devices Includes: Current and historical Devices No Medical Equipment Recorded Medications Includes: Current and historical Medications Current Medications (continue as prescribed) Sertraline HCl 200 MG Oral Capsule 03/10/2025 Provid er: Diagnosis: Last Documented On 5 10:06AM By Arthur Loving ; [facility] Ranolazine ER 1000 MG Oral Packet 03/10/2025 Provide r: Diagnosis: Last Documented On 5 10:06AM By Arthur [facility] Ranolazine ER 1000 MG Oral Tablet Extended Release 12 Hour 03/03/2025 Provider: Diagnosis: Last Documented On 5 8:18AM By Arthur Loving ; [facility], [facility] Folic Acid 1 MG Oral Tablet 02/25/2025 Provider: Quyen Vincent DO Diagnosis: Last Documented On 5 8:18AM By Arthur Loving ; [facility], [facility] Vitamin D (Ergocalciferol) 1 .25 MG (09221 UT) Oral Capsule 02/25/2025 Provider: Quyen Vincent DO Diagnosis: Last Documented On 5 8:18AM By Arthur Loving ; [facility] Sucralfate 1 GM/10ML Oral Suspension 01/14/2025 Prov ider: Diagnosis: Last Documented On 5 8:18AM By Arthur Loving ; [facility] oxyCODONE-Acetaminophen 5-325 MG Oral Tablet 5 Provider: Horacio Zamudio MD Diagnosis: Last Documented On 5 8:18AM By Arthur Loving ; [facility] HumaLOG 100 UNIT/ML Injection Solution 12/13/2024 Pr ovider: Diagnosis: Last Documented On 5 8:18AM By Arthur Loving ; [facility] traMADol HCl 50 MG Oral Tablet 12/12/2024 Provider: Quyen Vincent DO Diagnosis: Last Documented On 5 8:18AM By Arthur Loving ; [facility] buPROPion HCl 75 MG Oral Tablet 12/09/2024 Provider: Diagnosis: Last Documented On 5 8:18AM By Arthur Loving ; [facility] amLODIPine Besylate 2.5 MG Oral Tablet 11/05/2024 Pr ovider: Quyen Vincent DO Diagnosis: Last Documented On 5 8:18AM By Arthur Loving ; [facility] Midodrine HCl 5 MG Oral Tablet 11/05/2024 Provider: Diagnosis: Last Documented On 5 8:18AM By Arthur Loving ; [facility] Pantoprazole Sodium 40 MG Oral Tablet Delayed Release 11/05/2024 Provider: Diagnosis: Last Documented On 5 8:18AM By Arthur Loving ; [facility] Gabapentin 300 MG Oral Capsule 06/12/2024 Provider: Georgina Marshall DO Diagnosis: Last Documented On 4 10:47AM By Deborah Gant ; [facility] Dexcom G6 Sensor Miscellaneous 06/10/2024 Provider: Diagnosis: Last Documented On 4 10:47AM By Deborah Gant ; [facility] Insulin Lispro 100 UNIT/ML Injection Solution 06/10/20 Provider: Diagnosis: Last Documented On 4 10:47AM By Deborha Gant ; [facility] tiZANidine HCl 4 MG Oral Tablet 06/05/2024 Provider: Quyen Vincent DO Diagnosis: Last Documented On 4 10:47AM By Deborah Gant ; [facility] metFORMIN HCl ER 500 MG Oral Tablet Extended Rel ease 24 Hour 06/05/2024 Provider: Diagnosis: Last Documented On 4 10:47AM By Deborah Gant ; [facility] Primidone 50 MG Oral Tablet 06/02/2024 Provider: Georgina Marshall DO Diagnosis: Last Documented On 4 10:47AM By Deborah Gant ; [facility] Promethazine HCl 25 MG Oral Tablet 05/29/2024 Provid er: Quyen Vincent DO Diagnosis: Last Documented On 4 10:47AM By Deborah Gant ; [facility] Atorvastatin Calcium 40 MG Oral Tablet 05/25/2024 Pr ovider: Diagnosis: Last Documented On 4 10:47AM By Deborah Gant ; [facility] Bisoprolol Fumarate 5 MG Oral Tablet 05/25/2024 Prov ider: Diagnosis: Last Documented On 4 10:47AM By Deborah Gant ; [facility] Jardiance 10 MG Oral Tablet 05/16/2024 Provider: Diagnosis: Last Documented On 4 10:47AM By Deborah Gant ; [facility] Brilinta 90 MG Oral Tablet 05/05/2024 Provider: Diagnosis: Last Documented On 4 10:47AM By Deborah Gant ; [facility] Aspirin Low Dose 81 MG Oral Tablet Delayed Release 10/2024 Provider: Diagnosis: Last Documented On 4 10:47AM By Deborah Gant ; [facility] Sertraline HCl 100 MG Oral Tablet 04/07/2024 Provide r: Quyen Vincent DO Diagnosis: Last Documented On 4 10:47AM By Deborah Gant ; [facility] Dexcom G6 Transmitter Miscellaneous 02/16/2024 Provi luis antonio: Diagnosis: Last Documented On 4 10:47AM By Deborah Gant ; [facility] NovoLOG 100 UNIT/ML Injection Solution 01/29/2024 Pr ovider: Diagnosis: Last Documented On 4 10:47AM By Deborah Gant ; [facility] Naproxen 500 MG Oral Tablet 01/11/2024 Provider: Diagnosis: Last Documented On 4 10:47AM By Deborah Gant ; [facility] Past Medications on file Percocet 5-325 MG Oral Tablet 01/07/2025 - 01/17/2025 Provider: Horacio Zamudio MD Diagnosis: 1 tab every 6 hrs prn pain Last Documented On 5 2:53PM By Horacio Zamudio ; [facility] Percocet 5-325 MG Oral Tablet 12/25/2024 - 01/09/2025 Provider: Horacio Zamudio MD Diagnosis: 1 po q 4h prn pain Last Documented On 5 8:29AM By Horacio Zamudio ; [facility] Meloxicam 15 MG Oral Tablet 06/27/2024 - 08/26/2024 Pr ovider: Horacio Zamudio MD Diagnosis: Take one tablet my mouth once a day Last Documented On 4 11:02AM By Wendi Gibbons ; [facility] Dexcom G6 Transmitter Miscellaneous 05/14/2024 - 06/27 Provider: Diagnosis: Last Documented On 4 10:48AM By Deborah Gant ; [facility] Dexcom G6 Sensor Miscellaneous 02/16/2024 - 06/27/2024 Provider: Diagnosis: Last Documented On 4 10:48AM By Deborah Gant ; [facility] Brilinta 90 MG Oral Tablet 02/06/2024 - 06/27/2024 Pro vider: Diagnosis: Last Documented On 4 10:48AM By Deborah Gant ; [facility] traMADol HCl 50 MG Oral Tablet 05/07/2021 - 06/27/2024 Provider: Casper Negrete MD Diagnosis: Take 1 tablet every 8 hrs prn pain Last Documented On 4 10:45AM By Deborah Gant ; [facility] traMADol HCl 50 MG Oral Tablet 12/25/2020 - 03/25/2021 Provider: Casper Negrete MD Diagnosis: Take 1 tablet every 8 hrs prn pain Last Documented On 4:04PM By Casper Negrete ; [facility] Sertraline HCl 100 MG Oral Tablet 12/25/2020 - 024 Provider: Diagnosis: Last Documented On 4 10:45AM By Deborah Gant ; [facility] Tresiba 100 UNIT/ML Subcutaneous Solution 12/25/2020 - 06/27/2024 Provider: Diagnosis: Last Documented On 4 10:46AM By Deborah Gant ; [facility] NovoLIN 70/30 (70-30) 100 UN IT/ML Subcutaneous Suspension 12/17/2020 - 06/27/2024 Provider: Diagnosis: Last Documented On 4 10:46AM By Deborah Gant ; [facility] Atorvastatin Calcium 80 MG Oral Tablet 12/11/2020 - Provider: Diagnosis: Last Documented On 4 10:45AM By Deborah Gant ; [facility] metFORMIN HCl ER 500 MG Oral Tablet Extended Release 24 Hour 12/11/2020 - 06/27/2024 Provider: Diagnosis: Last Documented On 4 10:45AM By Deborah Gant ; [facility] Tresiba FlexTouch 200 UNIT/M L Subcutaneous Solution Pen-injector 12/11/2020 - 06/27/2024 Provider: Diagnosis: Last Documented On 4 10:45AM By Deborah Gant ; [facility] Jardiance 25 MG Oral Tablet 12/06/2020 - 06/27/2024 Pr ovider: Diagnosis: Last Documented On 4 10:46AM By Deborah Gant ; [facility] Dexamethasone Sodium Phosphate 4MG/ML Injection Solution 09/24/2018 - 10/24/2018 Provider: Vannessa song MD Diagnosis: 1 30 cc vial/ use as directe d for iontophoresis for physical therapy// Last Documented On 8 11:10AM By Maya Chisholm ; [facility] Valium 2MG Oral Tablet 09/24/2018 - 06/27/2024 Provide r: Vannessa Perez MD Diagnosis: one tablet 30 min prior to M RI take 2nd at start of MRI if needed Last Documented On 4 10:45AM By Deborah Gant ; [facility] Percocet 5-325 MG Tablet 08/30/2016 - 06/27/2024 Provi luis antonio: Horacio Zamudio MD Diagnosis: 1 tab every 12 hours Last Documented On 4 10:45AM By Deborah Gant ; [facility] Percocet 5-325 MG Tablet 08/11/2016 - 06/27/2024 Provi luis antonio: Horacio Zamudio MD Diagnosis: Take 1 tablet every 8 hrs prn pain Last Documented On 4 10:45AM By Deborah Gant ; [facility] Amitriptyline HCl 25 MG Tablet 07/18/2016 - 06/27/2024 Provider: Diagnosis: Last Documented On 4 10:46AM By Deborah Gant ; [facility] Jardiance 25 MG Tablet 07/18/2016 - 06/27/2024 Provide r: Diagnosis: Last Documented On 4 10:46AM By Deborah Gant ; [facility] MetFORMIN HCl 1000 MG Tablet 07/18/2016 - 06/27/2024 P rovider: Diagnosis: Last Documented On 4 10:46AM By Deborah Gant ; [facility] Metoprolol Tartrate 50 MG Tablet 07/18/2016 - 06/27/20 Provider: Diagnosis: Last Documented On 4 10:46AM By Deborah Gant ; [facility] Sertraline HCl 100 MG Tablet 07/18/2016 - 06/27/2024 Chuck valverdeder: Diagnosis: Last Documented On 4 10:46AM By Deborah Gant ; [facility] Onglyza 5 MG Tablet 07/18/2016 - 06/27/2024 Provider: Diagnosis: Last Documented On 4 10:46AM By Deborah Gant ; [facility] Lantus 100 UNIT/ML Solution 07/18/2016 - 06/27/2024 Pr ovider: Diagnosis: Last Documented On 4 10:46AM By Deborah Gant ; [facility] Apidra 100 UNIT/ML Solution 07/18/2016 - 06/27/2024 Pr ovider: Diagnosis: Last Documented On 4 10:46AM By Deborah Gant ; [facility] Baclofen 10 MG Tablet 07/18/2016 - 06/27/2024 Provider : Diagnosis: Last Documented On 4 10:46AM By Deborah Gant ; [facility] Oxycodone-Acetaminophen 7.5-325 MG Tablet 07/18/2016 - 07/20/2018 Provider: Diagnosis: Last Documented On 8 8:09AM By Priti Sam ; [facility] Lipitor 10 MG Tablet 07/18/2016 - 06/27/2024 Provider: Diagnosis: Last Documented On 4 10:46AM By Deborah Gant ; [facility] PredniSONE 20 MG Tablet 07/18/2016 - 06/27/2024 Provid er: Diagnosis: Last Documented On 4 10:46AM By Deborah Gant ; [facility] Lortab 7.5-500 MG OR TABS 09/04/2013 - 09/09/2013 Prov ider: Vannessa Perez MD Diagnosis: sx on 09-05-13ks Last Documented On 3 8:53AM By Tatum 1 User ; [facility] Lortab 5-500 MG OR TABS 08/19/2013 - 08/29/2013 Provid er: Vannessa Perez MD Diagnosis: ks Last Documented On 3 6:45PM By Laura Cee ; [facility] ARTHROCREAM PLUS TDG 05/14/2013 - 06/13/2013 Provider: Vannessa Perez MD Diagnosis: ab Last Documented On 3 8:50AM By Tatum 1 User ; [facility] Zoloft 25 MG OR TABS 05/13/2013 - 07/18/2016 Provider: Diagnosis: Last Documented On 6 2:16PM By Haydee Gutierrez ; [facility] glyBURIDE 5 MG OR TABS 05/13/2013 - 07/18/2016 Provide r: Diagnosis: Last Documented On 6 2:16PM By Haydee Gutierrez ; [facility] Ultram 50 MG OR TABS 08/15/2012 - 08/27/2012 Provider: Vannessa Perez MD Diagnosis: kw Last Documented On 2 9:31AM By Laura Cee ; [facility] Ultram 50 MG OR TABS 05/28/2012 - 06/27/2012 Provider: Vannessa Perez MD Diagnosis: Last Documented On 2 9:03AM By Yael Byole ; [facility] Phenergan 25 MG OR TABS 08/05/2009 - 08/10/2009 Provid er: Vannessa Perez MD Diagnosis: bhcalled to [phone] Last Documented On 9 3:34PM By Rc 1 User ; [facility] Lortab [...] 7 9:11AM By Tatum 3 User ; [facility] DENIED EX MISC 06/07/2007 - 06/08/2007 Provider: Rere Aranda MD Diagnosis: pt can take tylenol 500 mg 1 -2 q 4-6 hrs and advil or ibuprofen 2 of them 3 x a day until f/u for mri results/ left message with patients for h Last Documented On 7 9:39AM By Lesley Escamilla ; [facility] Medications Administered Includes: Administered Medications in patient's chart No Administered Medications Recorded Vital Signs Includes: Vital Signs from 03/18/2024 through 03/18/2025 Vital Name 03/10/2025 09:19A 03/10/2025 09:19A 02/06/2025 01:22P 01/08/2025 01:39P 07/18/2024 10:29A Height (in) 74 74 74 74 74 Weight (lb) 240 240 230 239 239 Body Mass Index 30.8 30.8 29.5 30.7 30.7 Body Surface Area 2.3 2.3 2.3 2.3 2.3 Pain Level 7 8 7 6 Note: MT lc Last Documented: On 03/10/2025 9:19AM ; [facility] On 03/10/2025 9:19AM ; [facility] On 02/06/2025 1:22PM ; [facility] On 01/08/2025 1:39PM ; [facility] On 07/18/2024 10:29AM ; [facility] Vital Name 06/27/2024 10:48A Height (in) 74 Weight (lb) 234 Body Mass Index 30 Body Surface Area 2.3 Pain Level 9 Note: Last Documented: On 06/27/2024 10:50A M ; [facility] Results Includes: Results from 03/18/2024 through 03/18/2025 No Results Recorded For Specified Dates History of Present Illness History of Present Illness not supported for this document type No History of Present Illness Recorded Social History Description Last Updated Recent change in diet diabetic 4 Last Documented On 5 1:29PM ; [facility] Not a current smoker. 06/27/2024 Last Documented On 5 1:29PM ; [facility] No caffeine use 07/16/2021 Last Documented On 1 2:35PM ; [facility] No recent change in diet 07/16/2021 Last Documented On 1 2:35PM ; [facility] Not a current smoker. 07/16/2021 Last Documented On 1 2:35PM ; [facility] Not using alcohol 07/16/2021 Last Documented On 1 2:35PM ; [facility] Not using drugs 07/16/2021 Last Documented On 1 2:35PM ; [facility] Non-smoker 11/30/2020 Last Documented On 1 6:23PM ; [facility] No tobacco use 07/20/2018 Last Documented On 8 8:49AM ; [facility] Smoking status : Former smoker 8 Last Documented On 8 8:49AM ; [facility] Not a current smoker 07/20/2018 Last Documented On 8 8:49AM ; [facility] Not exercising regularly 10/13/2016 Last Documented On 6 1:33PM ; [facility] Procedures and Surgical History Includes: Procedures from 03/18/2024 through 03/18/2025 Procedures Code Diagnosis Performing Provider Service Location Service Date X-RAY EXAM OF NECK SPINE 2 VIEWS 60863 Radiculopathy, cervical region Jayjay Wang PA-C [facility] 03/10/2025 Last Documented On 5 12:42PM ; [facility] X-RAY EXAM OF LOWER SPINE 2-3 VIEWS LIMITED 03559 Fusion of spine, lumbar region Horacio Zamudio MD [facility] 02/06/2025 Last Documented On 5 4:51PM ; [facility] X-RAY EXAM OF LOWER SPINE 2-3 VIEWS LIMITED 34490 Spinal stenosis, lumbar region with neurogenic claudication, Spondylolisthesis, lumbar region Jayjay Wang PA-C [facility] 01/08/2025 Last Documented On 5 9:23AM ; [facility] Laminectomy, facetectomy, or foraminotomy w/ decompression (Automated Equipment Engineer Technician surgeon) 63854 Spinal stenosis, lumbar region with neurogenic claudication, Spondylolisthesis, lumbar region [facility] 12/25/2024 Last Documented On 5 4:42PM ; [facility] SPINAL BONE ALLOGRAFT (Automated Equipment Engineer Technician surgeon) 85845 Spinal stenosis, lumbar region with neurogenic claudication, Spondylolisthesis, lumbar region [facility] 12/25/2024 Last Documented On 5 4:42PM ; [facility] Insertion of interbody cage each interspace (Automated Equipment Engineer Technician surgeon) 81658 Spinal stenosis, lumbar region with neurogenic claudication, Spondylolisthesis, lumbar region [facility] 12/25/2024 Last Documented On 5 4:42PM ; [facility] Arthrodesis, combined posterior or posterolateral technique (Automated Equipment Engineer Technician surgeon) 66047 Spinal stenosis, lumbar region with neurogenic claudication, Spondylolisthesis, lumbar region [facility] 12/25/2024 Last Documented On 5 4:42PM ; [facility] Laminectomy, facetectomy, or foraminotomy w/ decompression 07080 Spinal stenosis, lumbar region with neurogenic claudication, Spondylolisthesis, lumbar region Horacio Zamudio MD [facility] 12/25/2024 Last Documented On 5 2:12PM ; [facility] SPINAL BONE ALLOGRAFT 21293 Spinal stenosis, lumbar region with neurogenic claudication, Spondylolisthesis, lumbar region Horacio Zamudio MD [facility] 12/25/2024 Last Documented On 5 2:12PM ; [facility] Insertion of interbody cage each interspace 88506 Spinal stenosis, lumbar region with neurogenic claudication, Spondylolisthesis, lumbar region Horacio Zamudio MD [facility] 12/25/2024 Last Documented On 5 2:12PM ; [facility] INSERT SPINE FIXATION DEVICE 28682 Spinal stenosis, lumbar region with neurogenic claudication, Spondylolisthesis, lumbar region Horacio Zamudio MD [facility] 12/25/2024 Last Documented On 5 2:12PM ; [facility] Arthrodesis, combined posterior or posterolateral technique 96882 Spinal stenosis, lumbar region with neurogenic claudication, Spondylolisthesis, lumbar region Horacio Zamudio MD [facility] 12/25/2024 Last Documented On 5 2:12PM ; [facility] INSERT SPINE FIXATION DEVICE (Automated Equipment Engineer Technician surgeon) 77555 Spinal stenosis, lumbar region with neurogenic claudication, Spondylolisthesis, lumbar region Ever Saldaña PA-C [facility] 12/25/2024 Last Documented On 5 4:42PM ; [facility] MRI LUMBAR SPINE W/O DYE 61028 Low back pain, unspecified Horacio Zamudio MD [facility] 07/16/2024 Last Documented On 4 9:54PM ; [facility] X-RAY EXAM OF LOWER SPINE 2-3 VIEWS LIMITED 36486 Other low back pain Horacio Zamudio MD [facility] 06/27/2024 Last Documented On 4 11:14AM ; [facility] Surgical History Last Updated History of back surgery L4-5 Open Decomp ression & Fusion 12/25/24 02/11/2025 Last Documented On 5 9:42AM ; [facility] Past Surgical History: left elbow surger y 02/11/2025 Last Documented On 5 9:42AM ; [facility], [facility] History of History [facility] Gallbladder 2023 Last Documented On 5 1:29PM ; [facility] History of total knee arthroplasty 06/27 Last Documented On 5 1:29PM ; [facility] History of appendectomy 10/13/2016 Last Documented On 6 1:33PM ; [facility] History of heart surgery 10/13/2016 Last Documented On 6 1:33PM ; [facility] History of hernia repair 10/13/2016 Last Documented On 6 1:33PM ; [facility] Medical History Includes: Medical History in patient's chart Description Last Updated History of arthritis 06/27/2024 Last Documented On 5 1:29PM ; [facility] History of Heartburn / Acid Reflux 06/27 Last Documented On 5 1:29PM ; [facility] History of Hypertension 06/27/2024 Last Documented On 5 1:29PM ; [facility] History of Sleep Apnea 06/27/2024 Last Documented On 5 1:29PM ; [facility] Use of CPAP 06/27/2024 Last Documented On 5 1:29PM ; [facility] No recent immunization for pneumococcal pneumonia 07/16/2021 Last Documented On 1 2:35PM ; [facility] A recent immunization for flu 11/30/2020 Last Documented On 1 6:23PM ; [facility] Back surgery L4-L5 Microdecompression Last Documented On 1 6:23PM ; [facility] History of Arthroscopy Left Elbow 2020 Last Documented On 1 6:23PM ; [facility], [facility] left elbow surgery 07/20/2018 Last Documented On 8 8:49AM ; [facility], [facility] Arthritic joint problems 10/13/2016 Last Documented On 6 1:33PM ; [facility], [facility] Gallbladder disease 10/13/2016 Last Documented On 6 1:33PM ; [facility], [facility] History of depression 10/13/2016 Last Documented On 6 1:33PM ; [facility] History of diabetes mellitus 10/13/2016 Last Documented On 6 1:33PM ; [facility], [facility] History of heart disease 10/13/2016 Last Documented On 6 1:33PM ; [facility], [facility] Intermittent hypertension 10/13/2016 Last Documented On 6 1:33PM ; [facility], [facility] Family History Includes: Family History in patient's chart Description Last Updated Diabetes mellitus 11/30/2020 Last Documented On 1 6:23PM ; [facility], [facility] Family history of heart disease 11/30/19 21 Last Documented On 1 6:23PM ; [facility], [facility] Family history of hypertension 1 Last Documented On 1 6:23PM ; [facility], [facility] lupus 07/20/2018 Last Documented On 8 8:49AM ; [facility], [facility] Paternal history of diabetes mellitus Last Documented On 8 8:49AM ; [facility], [facility] Maternal history of diabetes mellitus Last Documented On 8 8:49AM ; [facility], [facility] Family history of diabetes mellitus 09/27 Last Documented On 6 1:33PM ; [facility], [facility] Maternal history of hypertension 016 Last Documented On 6 1:33PM ; [facility], [facility] Review of Systems Review of Systems not supported for this document type No Review of Systems Recorded Mental Status Description Anxiety Functional Status No Functional Status Recorded Physical Exam Physical Exam not supported for this document type No Physical Exam Recorded Allergies Includes: Active, inactive, and resolved Allergies Substance Type Reaction Onset Date Resolved Date Statu s Penicillins Allergy 03/31/2006 Active Last Documented On 8:18AM ; [facility] Encounters Includes: Encounters from 03/18/2024 through 03/18/2025 Encounter Provider Location Date Check-In Time Check-Out Time Diagnosis NEW PROBLEM/EST PT Jayjay Wang PA-C [facility] 03/10/20 25 8:12AM 9:01AM Overweight Post Op Horacio Zamudio MD [facility] 02/07/20 12:53PM 1:13PM Overweight Post Op Jayjay Wang PA-C [facility] 01/08/20 1:27PM 1:59PM Overweight [facility] Horacio Zamudio MD Surgery 12/25/19 25 01/02/2025 10:00AM 07/18/2024 11:59PM [Patient Encounter] Horacio Zamudio MD 12/25/19 25 07/18/2024 8:29AM 07/18/2024 11:59PM [Patient Encounter] Horacio Zamudio MD 12/13/19 25 07/18/2024 11:18AM 07/18/2024 11:59PM Follow Up Horacio Zamudio MD [facility] 07/18/20 24 9:39AM 10:50AM Overweight MRI [facility] 07/16/20 24 1:09PM 1:35PM Physician Specified Horacio Zamudio MD [facility] 06/27/20 10:41AM 11:03AM Overweight Insurance Includes: Active Insurance Policies Plan Name Member ID Group # Subscriber Relationship Effect [id number] Dates 1 - [employer] [id number] Jonathan Delgado Self 11/27/2024 - Unknown Clinical Notes Includes: Signed Clinical Notes starting from 11/10/2022 * Progress note Date Encounter Last Documented by 03/10/2025 NEW PROBLEM/EST PT Last document ed on 03/10/2025; 12:59 PM, Jayjay Wang PA-C; [facility] Active Problems & Conditions - [...] over the last 2-3 weeks 5 to 710 pain he has tried some [id number] ibuprofen and lidocaine patches which do helps [...] refills - Vitamin D (Ergocalciferol) 1.25 MG (48693 UT) Oral Capsule 84 days, 0 refills [...] CT Scan: CT scan [facility]. Available previous imaging studies were reviewed [...] Care Team - Quyen Vincent DO - WATER SUPPLY TECHNICIAN Health Reminders - Assess BMI satisfied 03/10/2025. - Assess Tobacco Use satisfied 07/20/2018. - Follow Up Plan BMI Management satisfied 03/10/2025. * Progress note Date Encounter Last Documented by 02/06/2025 Post Op Last documented on 02/11/2025; 9:42 AM, Horacio Zamudio MD; [facility], [facility] Active Problems & Conditions - [...] CT Scan: CT scan [facility]. Available previous imaging studies were reviewed [...] Care Team - Quyen Vincent DO - WATER SUPPLY TECHNICIAN Health Reminders - Assess BMI satisfied 02/06/2025. - Assess Tobacco Use satisfied 02/06/2025. - Follow Up Plan BMI Management satisfied 02/06/2025. * Progress note Date Encounter Last Documented by 01/08/2025 Post Op Last documented on 01/13/2025; 8:13 AM, Jayjay Wang PA-C; [facility], [facility] Active Problems & Conditions - [...] CT Scan: CT scan [facility]. Available previous imaging studies were reviewed [...] Care Team - Quyen Vincent DO - WATER SUPPLY TECHNICIAN Health Reminders - Assess BMI satisfied 01/08/2025. - Assess Tobacco Use satisfied 01/08/2025. - Follow Up Plan BMI Management satisfied 01/08/2025. * Progress note Date Encounter Last Documented by 07/18/2024 Follow Up Last documented on 12/13/2024; 1:28 PM, Horacio Zamudio MD; [facility], [facility] Active Problems & Conditions - Joint Pain, Localized in the Left Shoulder - Lower Back Pain - Neck Pain Chief Complaint The Chief Complaint is: Low back pain. Referred Here Referred by PCP. History of Present Illness Jonathan Delgado is a 53 year old male. - Allergy list reviewed - Problem list reviewed - Medication list reviewed - Previous history of new onset pain Injury is not work related or an automotive accident - Patient pain level from 1-10: 6 - - Review of medications documented Patient had a previous L4-L5 decompression of the left side in 2016. His biggest complaint is pain in his back and left buttock and down into the left gastrocs area pain is more constant. It bothers him when he tries to stand or walk pain level 6/10. He is here today to review the MRI and discuss options. He denies any bowel or bladder issues with this Current Medication - Aspirin Low Dose 81 [...] History Not a current smoker. Current diet: No recent change in diet. Caffeine use: No caffeine use. Tobacco use: No tobacco use. Alcohol: Not using alcohol. Drug Use: Not using drugs. Habits: Not exercising regularly. Allergies - Penicillins Family History Heart disease Diabetes mellitus Systemic hypertension Paternal: Diabetes mellitus Maternal: Systemic hypertension Diabetes [...] allergic reaction. Physical Findings - Vitals taken 07/18/2024 10:29 am lc Height 74 in Weight 239 lbs Body Mass Index 30.7 kg/m2 Body Surface Area 2.3 m2 Pain Level 6 Patient has some mild weakness in his left EHL and tibialis anterior 4/5 5/5 right lower extremity strength for EHL quadriceps tibialis anterior bilaterally Negative straight leg raise bilaterally 1+ Achilles and patellar reflexes bilaterally Tests Lumbar spine MRI shows recurrent spinal stenosis L4-L5 Assessment - Overweight Recurrent L4-L5 spinal stenosis Previous Tests Imaging: CT Scan: CT scan [facility]. Available previous imaging studies were reviewed Available previous history reviewed Counseling/Education - Tobacco non-user - Use of tobacco assessment performed - Lose weight Plan Patient was seen by myself and Dr. Robb Wang PA-C. Patient will follow up post surgery we he discussed conservative treatment consisting of epidurals as well as a lumbar fusion surgery. Patient wants to just address this to fix the problem plan will be for an open L4-L5 decompression and fusion. He understands all benefits risks and alternatives surgery and consents to proceed Addendum dated 08/21/2024 The reason for denial was that is special pictures of his back were needed as well as a spondylolisthesi. Patient has had your special pictures of his back that is called an MRI and he does not have a spondylolisthesis he has recurrent spinal stenosis. He has had a previous lumbar decompression at L4-L5 in 2016. Recurrent spinal stenosis in of itself can warrant a lumbar fusion surgery you do not have to have a spondylolisthesis just to consider fusion surgery. We are requesting that his lumbar fusion surgery be approved at this time. Patient has failed conservative treatment at this time. Sathish Wang PA-C Notes This dictation was done with voice recognition software and may contain errors and omissions. Care Team - Quyen Vincent DO - WATER SUPPLY TECHNICIAN Health Reminders - Assess BMI satisfied 07/18/2024. - Assess Tobacco Use satisfied 07/20/2018. - Follow Up Plan BMI Management satisfied 07/18/2024. * Progress note Date Encounter Last Documented by 06/27/2024 Physician Specified Last documen jose guadalupe on 12/13/2024; 1:29 PM, Horacio Zamudio MD; [facility], [facility] Active Problems & Conditions - Joint Pain, Localized in the Left Shoulder - Lower Back Pain - Neck Pain Chief Complaint The Chief Complaint is: Low back pain. Referred Here Referred by PCP. History of Present Illness Jonathan Delgado is a 53 year old male. - Symptoms giving way heat makes the pain better standing/walking makes the pain worse. - Allergy list reviewed - Problem list reviewed - Medication list reviewed - Previous history of new onset pain 10/2023 Injury is not work related or an automotive accident - Sharp pain Symptoms - Pain is constant (100% of the time) - Patient pain level from 1-10: 9 - Yes, previous treatment. PCP - - Review of medications documented Current Medication - Aspirin Low Dose 81 [...] No caffeine use. Tobacco use: No tobacco use. Alcohol: Not using alcohol. Drug Use: Not [...] allergic reaction. Physical Findings - Vitals taken 06/27/2024 10:48 am lc Height 74 in Weight 234 lbs Body Mass Index 30 kg/m2 Body Surface Area 2.3 m2 Pain Level 9 Assessment - Overweight Previous Tests Imaging: CT Scan: CT scan [facility]. Available previous imaging studies were reviewed Available previous history reviewed Counseling/Education - Tobacco non-user - Use of tobacco assessment performed - Lose weight Plan StartCited - Low back pain, unspecified Radiology/MRI: MRI Lumbar Spine Instructions: MRI LUMBAR EndCited StartCited - Other Meloxicam 15 MG tablet Take one tablet my mouth once a day, 30 days, 1 refills EndCited Notes This dictation was done with voice recognition software and may contain errors and omissions. Patient is here for follow-up of his back pain. He had a decompression he many years ago. It is mostly when he is standing. It radiates into the left hip and causes him to stumble. His x-rays do not show any listhesis or fractures. Because he has had previous surgery I have recommended that we get an MRI. We will see him back with that study. He has got some mild weakness in the left tib ant and EHL. Care Team - Quyen Vincent DO - WATER SUPPLY TECHNICIAN Health Reminders - Assess BMI satisfied 06/27/2024. - Assess Tobacco Use satisfied 07/20/2018. - Follow Up Plan BMI Management satisfied 06/27/2024.
--- OUTSIDE RECORDS SUMMARY | 2025-03-18 15:12 | XMS_ITS | Clinical Summary ---
Author Organization [facility] , [facility] Address [address] [place] [address] Phone Care Team Providers Care Ticket Maker Name Role Phone Quyen Vincent DO Primary Care Provider [phone] Chris DE LA CRUZ, Vannessa Allison Unavailable [phone] Reason for Visit and Chief Complaint [facility] Problems Includes: Problems addressed during this encounter and other active Problems All Visits Onset Date Resolved Date Provider Condition S tatus Neck Pain 10/09/2020 Horacio Zamudio MD Active Last Documented On 0 9:26AM ; [facility], [facility] Lower Back Pain 10/09/2020 Horacio Zamudio MD Act farnaz Last Documented On 0 9:26AM ; [facility], [facility] Joint Pain, Localized in the Left Shoulder 07/20/2018 Vannessa Perez MD Active Last Documented On 8 8:04AM ; [facility], [facility] Plan of Treatment Pending Tests Order Diagnosis Results Due Ordering P rovider Radiology - MRI MRI Lumbar Spine Low back pain, unspecified 07/11/24 Horacio Zamudio MD Last Documented On 5 1:29PM ; [facility], [facility] Future Appointments Date Time Location Provi luis antonio Post Op 03/20/2025 11:00AM [facility] Horacio Zamudio MD Last Documented On 5 1:12PM ; [facility], [facility] Follow Up 04/23/2025 1:15PM [facility] [place] Jayjay Wang PA-C Last Documented On 5 8:59AM ; [facility], [facility] Assessments Includes: Assessments from this encounter No Assessments Recorded Medical Equipment - Implanted Devices Includes: Current Devices No Medical Equipment Recorded Medications Includes: Medications discussed during this encounter and other current Medications Current Medications (continue as prescribed) Sertraline HCl 200 MG Oral Capsule 03/10/2025 Provid er: Diagnosis: Last Documented On 5 10:06AM By Arthur Loving ; [facility], [facility] Ranolazine ER 1000 MG Oral Packet 03/10/2025 Provide r: Diagnosis: Last Documented On 10:06AM By Arthur Loving ; [facility], [facility] Ranolazine ER 1000 MG Oral Tablet Extended Release 12 Hour 03/03/2025 Provider: Diagnosis: Last Documented On 5 8:18AM By Arthur Loving ; [facility], [facility] Folic Acid 1 MG Oral Tablet 02/25/2025 Provider: Quyen Vincent DO Diagnosis: Last Documented On 5 8:18AM By Arthur Loving ; [facility], [facility] Vitamin D (Ergocalciferol) 1 .25 MG (33936 UT) Oral Capsule 02/25/2025 Provider: Quyen Vincent DO Diagnosis: Last Documented On 5 8:18AM By Arthur Loving ; [facility], [facility] Sucralfate 1 GM/10ML Oral Suspension 01/14/2025 Prov ider: Diagnosis: Last Documented On 5 8:18AM By Arthur Loving ; [facility], [facility] oxyCODONE-Acetaminophen 5-325 MG Oral Tablet Provider: Horacio Zamudio MD Diagnosis: Last Documented On 5 8:18AM By Arthur Loving ; [facility], [facility] HumaLOG 100 UNIT/ML Injection Solution 12/13/2024 Pr ovider: Diagnosis: Last Documented On 5 8:18AM By Arthur Loving ; [facility], [facility] traMADol HCl 50 MG Oral Tablet 12/12/2024 Provider: Quyen Vincent DO Diagnosis: Last Documented On 5 8:18AM By Arthur Loving ; [facility], [facility] buPROPion HCl 75 MG Oral Tablet 12/09/2024 Provider: Diagnosis: Last Documented On 5 8:18AM By Arthur Loving ; [facility], [facility] amLODIPine Besylate 2.5 MG Oral Tablet 11/05/2024 Pr ovider: Quyen Vincent DO Diagnosis: Last Documented On 5 8:18AM By Arthur Loving ; [facility], [facility] Midodrine HCl 5 MG Oral Tablet 11/05/2024 Provider: Diagnosis: Last Documented On 5 8:18AM By Arthur Loving ; [facility], [facility] Pantoprazole Sodium 40 MG Oral Tablet Delayed Release 11/05/2024 Provider: Diagnosis: Last Documented On 5 8:18AM By Arthur Loving ; [facility], [facility] Gabapentin 300 MG Oral Capsule 06/12/2024 Provider: Georgina Marshall DO Diagnosis: Last Documented On 4 10:47AM By Deborah Gant ; [facility], [facility] Dexcom G6 Sensor Miscellaneous 06/10/2024 Provider: Diagnosis: Last Documented On 4 10:47AM By Deborah Gant ; [facility], [facility] Insulin Lispro 100 UNIT/ML Injection Solution 06/10/20 Provider: Diagnosis: Last Documented On 4 10:47AM By Deborah Gant ; [facility], [facility] tiZANidine HCl 4 MG Oral Tablet 06/05/2024 Provider: Quyen Vincent DO Diagnosis: Last Documented On 4 10:47AM By Deborah Gant ; [facility], [facility] metFORMIN HCl ER 500 MG Oral Tablet Extended Rel ease 24 Hour 06/05/2024 Provider: Diagnosis: Last Documented On 4 10:47AM By Deborah Gant ; [facility], [facility] Primidone 50 MG Oral Tablet 06/02/2024 Provider: Georgina Marshall DO Diagnosis: Last Documented On 4 10:47AM By Deborah Gant ; [facility], [facility] Promethazine HCl 25 MG Oral Tablet 05/29/2024 Provid er: Quyen Vincent DO Diagnosis: Last Documented On 4 10:47AM By Deborah Gant ; [facility], [facility] Atorvastatin Calcium 40 MG Oral Tablet 05/25/2024 Pr ovider: Diagnosis: Last Documented On 4 10:47AM By Deborah Gant ; [facility], [facility] Bisoprolol Fumarate 5 MG Oral Tablet 05/25/2024 Prov ider: Diagnosis: Last Documented On 4 10:47AM By Deborah Gant ; [facility], [facility] Jardiance 10 MG Oral Tablet 05/16/2024 Provider: Diagnosis: Last Documented On 4 10:47AM By Deborah Gant ; [facility], [facility] Brilinta 90 MG Oral Tablet 05/05/2024 Provider: Diagnosis: Last Documented On 4 10:47AM By Deborah Gant ; [facility], [facility] Aspirin Low Dose 81 MG Oral Tablet Delayed Release 10/2024 Provider: Diagnosis: Last Documented On 4 10:47AM By Deborah Gant ; [facility], [facility] Sertraline HCl 100 MG Oral Tablet 04/07/2024 Provide r: Quyen Davidsonas DO Diagnosis: Last Documented On 4 10:47AM By Deborah Gant ; [facility], [facility] Dexcom G6 Transmitter Miscellaneous 02/16/2024 Provi luis antonio: Diagnosis: Last Documented On 4 10:47AM By Deborah Gant ; [facility], [facility] NovoLOG 100 UNIT/ML Injection Solution 01/29/2024 Pr ovider: Diagnosis: Last Documented On 4 10:47AM By Deborah Gant ; [facility], [facility] Naproxen 500 MG Oral Tablet 01/11/2024 Provider: Diagnosis: Last Documented On 4 10:47AM By Deborah Gant ; [facility], [facility] Medications Administered Includes: Administered Medications from this encounter No Administered Medications Recorded Results Includes: Results discussed during this encounter No Results Recorded For Specified Dates History of Present Illness Includes: History of Present Illness from this encounter No History of Present Illness Recorded Social History No Social History Recorded - Smoking Status Unknown Procedures and Surgical History Includes: Procedures from this encounter Procedures Code Diagnosis Performing Provider Service Location Service Date Arthrodesis, combined posterior or posterolateral technique 51821 Spinal stenosis, lumbar region with neurogenic claudication, Spondylolisthesi s, lumbar region Horacio Zamudio MD [facility] 12/25/2024 Last Documented On 5 2:12PM ; [facility] INSERT SPINE FIXATION DEVICE 04297 Spinal stenosis, lumbar region with neurogenic claudication, Spondylolisthesis, lumbar region Horacio Zamudio MD [facility] 12/25/2024 Last Documented On 5 2:12PM ; [facility] Insertion of interbody cage each interspace 95144 Spinal stenosis, lumbar region with neurogenic claudication, Spondylolisthesis, lumbar region Horacio Zamudio MD [facility] 12/25/2024 Last Documented On 5 2:12PM ; [facility] SPINAL BONE ALLOGRAFT 30154 Spinal stenosis, lumbar region with neurogenic claudication, Spondylolisthesis, lumbar region Horacio Zamudio MD [facility] 12/25/2024 Last Documented On 5 2:12PM ; [facility] Laminectomy, facetectomy, or foraminotomy w/ decompression 15054 Spinal stenosis, lumbar region with neurogenic claudication, Spondylolisthesis, lumbar region Horacio Zamudio MD [facility] 12/25/2024 Last Documented On 5 2:12PM ; [facility] Medical History Includes: Medical History addressed during [...] Last Documented [facility] 5 8:18AM [facility] Encounters Encounter Provider Location Date Check-In Time Check-Out Time Diagnosis [facility] Horacio Zamudio MD Surgery 01/2901/02/2025 10:00AM 11:59PM Insurance Includes: Active Insurance Policies Plan Name Member ID Group # Subscriber Relationship Effect farnaz Dates 1 - [employer] [id number] Jonathanjustine Delgado Self 11/27/2024 - Unknown Clinical Notes Includes: Clinical Notes from this encounter No Clinical Notes Recorded
[2025-03-18 15:15] VITALS: BP 149/95; PULSE 79; O2SAT 99
--- NOTE | 2025-03-18 15:19 | CA_ITS ---
FINAL REPORT TECHNIQUE: Ultrasound images of the deep venous system were obtained from the left groin to the calf veins. CLINICAL HISTORY: BRUISING LT FOOT, NKI,DM FINDINGS: The deep venous system is normally compressible. Normal flow is identified. IMPRESSION: No evidence of left lower extremity DVT. Reviewed, Interpreted and Dictated by Cricket Menon MD Transcribed by Madhuri Keita Authenticated and [facility]
--- NOTE | 2025-03-18 15:20 | XR_ITS ---
FINAL REPORT CLINICAL HISTORY: Left foot pain COMPARISON: None FINDINGS: LEFT FOOT Three views of the left foot demonstrate no acute fracture or dislocation. The visualized joint spaces are normally aligned. The soft tissues are unremarkable. IMPRESSION: No acute bony abnormality. Reviewed, Interpreted and Dictated by Cricket Menon MD Transcribed by Esthela Dasilva Authenticated and . [facility]
--- NOTE | 2025-03-18 15:20 | XR_ITS ---
FINAL REPORT CLINICAL HISTORY: Left foot/ankle pain COMPARISON: None FINDINGS: Two views of the left ankle were obtained. There is no acute fracture or dislocation. The joint spaces are intact. There may be minimal edema over the lateral malleolus. IMPRESSION: Minimal edema without acute bony abnormality. Reviewed, Interpreted and Dictated by Cricket Menon MD Transcribed by Esthela Dasilva Authenticated and [facility]
--- NOTE | 2025-03-18 15:21 | ED_ITS ---
Discharge Plan Disposition Patient Disposition: Home, Self-Care Condition: Good Prescriptions Prescriptions: No Action pantoprazole 40 mg tablet,delayed release (DR/EC) 40 mg PO ONCE Patient Comments: TAKE 1 TABLET BY MOUTH EVERY DAY FOR ACID REFLUX sertraline 100 mg tablet 200 mg PO DAILY Patient Comments: TAKE 2 TABLETS BY MOUTH ONCE DAILY (DME) Dexcom G6 Sensor Device See Rx Instructions .ROUTE .MEDSUPPLY Qty: 1 Patient Comments: USE DIRECTED AND CHANGE EVERY 10 DAYS Rx Instructions: As directed (DME) Dexcom G6 Transmitter Device See Rx Instructions .ROUTE .MEDSUPPLY Qty: 1 Patient Comments: USE 1 EACH EVERY 3 (THREE) MONTHS Rx Instructions: As directed insulin lispro [Humalog U-100 Insulin] 100 unit/mL solution 125 unit continuous subcutaneous infusion Patient Comments: USE UP TO 125 UNITS VIA INSULIN PUMP DAILY bupropion HCl 75 mg tablet 75 mg PO BID atorvastatin 80 mg tablet 80 mg PO HS Patient Comments: TAKE 1 TABLET BY MOUTH ONCE DAILY AT BEDTIME folic acid 1 mg tablet 1 mg PO DAILY Patient Comments: TAKE 1 TABLET BY MOUTH ONCE DAILY ergocalciferol (vitamin D2) 1,250 mcg (50,000 unit) capsule 1,250 mcg PO WEEKLY Patient Comments: TAKE 1 CAPSULE BY MOUTH ONCE A WEEK ranolazine 1,000 mg tablet extended release 12 hr 1,000 mg PO BID Qty: 180 1RF Brilinta 90 mg tablet 90 mg PO BID Qty: 180 1RF aspirin 81 mg tablet,delayed release (DR/EC) 81 mg PO DAILY Qty: 90 3RF gabapentin 300 mg capsule 300 mg PO TID Referrals Follow up/Referrals: Quyen Vincent [Primary Care Provider] - See instructions Activity Restrictions/Add. Instructions Additional Instructions/Restrictions: Please return to the emergency department any worsening signs or symptoms, worsening leg swelling or bruising, or any pain. Please follow-up with your family physician in the upcoming days. Monitor for any redness or worsening swelling around the area. Clinical Impressions Clinical Impression: Ankle bruise Diabetes mellitus Qualifiers: Diabetes mellitus type: type 2 Diabetes mellitus nursing home insulin use: with nursing home use Diabetes mellitus complication status: with circulatory complication Diabetes mellitus complication detail: with other circulatory complications Qualified Code(s): E11.59 - Type 2 diabetes mellitus with other circulatory complications Instructions Patient Instructions: Easy Bruising (Alternative Therapy) Print Language Print Language: Czech Discharge ED Provider: Patrick Smith General Adult HPI <LIVE Sage - Last Filed: 03/18/25 17:50> General Chief complaint: Skin/Abscess/Foreign Body Stated complaint: bruising both feet, diabetic Time Seen by Provider: 03/18/25 15:13 Mode of Arrival: Ambulatory Source of Information: Patient Description of Symptoms (Recalled from ER Triage Doc. by RN): Patient reports bruising to bilateral feet with no injury. States this started 4 days ago and that his feet feel hot to him. History of Present Illness HPI narrative: 54-year-old male presents to the emergency department with left lower extremity foot/ankle bruising , left worse than right, patient denies any trauma, no bending or twisting injury, however patient does have diabetic polyneuropathy, and has numbness and tingling in a stocking glove distribution has decreased sensation of the bilateral feet and toes, has had previous but sounds like diabetic foot ulcer/foot infection to the plantar aspect on the medial side of the left foot, that is improved. He does admit to some pain to the foot and ankle, bruising extends on the dorsal aspect of the foot into the ankle region, with some mild soft tissue swelling that is nonpitting, patient denies any real fever chills chest pain shortness of breath nausea vomiting constipation diarrhea no abdominal pain, no urinary type symptomatology, patient is a former smoker, denies any other alcohol or drug use, patient is a type II diabetic insulin-dependent with insulin pump, hyperlipidemia, peripheral vascular disease, CAD, anxiety/depression, patient is on dual antiplatelet therapy with Brilinta, and aspirin, CKD. Initial triage vitals are unremarkable Onset (ago): day(s) Related Data Home Medications ?Medication ?Instructions ?Recorded ?Confirmed blood-glucose sensor (Dexcom G6 #1 ea 08/27/24 03/03/25 Sensor device) blood-glucose transmitter (Dexcom #1 ea 08/27/24 03/03/25 G6 Transmitter device) pantoprazole 40 mg tablet,delayed 40 mg PO ONCE 11/28/24 03/03/25 release atorvastatin 80 mg tablet 80 mg PO HS 12/23/24 03/03/25 bupropion HCl 75 mg tablet 75 mg PO BID 12/23/24 03/03/25 gabapentin 300 mg capsule 300 mg PO TID 12/23/24 03/03/25 insulin lispro 100 unit/mL 125 unit continuous subcutaneous 12/23/24 03/03/25 subcutaneous solution (Humalog infusion U-100 Insulin) sertraline 100 mg tablet 200 mg PO DAILY 01/13/25 03/03/25 ergocalciferol (vitamin D2) 1,250 1,250 mcg PO WEEKLY 03/03/25 03/03/25 mcg (50,000 unit) capsule folic acid 1 mg tablet 1 mg PO DAILY 03/03/25 03/03/25 Previous Rx's ?Medication ?Instructions ?Recorded ticagrelor 90 mg tablet (Brilinta) 90 mg PO BID #180 tabs 09/26/24 aspirin 81 mg tablet,delayed 81 mg PO DAILY #90 tabs 01/06/25 release ranolazine 1,000 mg 1,000 mg PO BID #180 tabs 03/03/25 tablet,extended release,12 hr Allergies Allergy/AdvReac Type Severity Reaction Status Date / Time Penicillins Allergy Unknown Verified 03/03/25 13:20 allergy reaction [facility] <LIVE Sage - Last Filed: 03/18/25 17:50> [facility] Disclaimer: The information contained in this section may have been updated after the patient was seen, as this information can be updated by other users. Medical History Involuntary movements Numbness and tingling of left arm and leg Diabetes mellitus, type 2 Peripheral arterial disease Claudication Abnormal findings on diagnostic imaging of heart and coronary circulation Blood pressure instability Elevated blood pressure reading with diagnosis of hypertension FHx: cholecystectomy Depression Anxiety Angina pectoris Hyperlipidemia Hypertension Dyspnea Coronary artery disease Surgical History Hx of cholecystectomy H/O right heart catheterization H/O hernia repair H/O elbow surgery H/O knee surgery Stented coronary artery Family History Mother Lupus Other Family history of diabetes mellitus type II Family history of hyperlipidemia Family history of hypertension Family history of myocardial infarction Social History Smoking Status: Never smoker alcohol intake: never current occupational status: unemployed Travel in the last 8 weeks: None Have you lived/traveled outside [place] in past 30 days?: No Contact w/someone who lives/traveled outside US past 30 days?: No Exposure to someone with infectious disease in past 14 days?: No Do you have a fever (greater than 100.4 F or 38 C)?: No Have you tested positive for COVID-19: No Exposed to someone with COVID-19 in past 14 days?: No Do you have a sore throat?: No Do you have a cough?: No Do you have any weakness?: No Do you have any diarrhea?: No Are you experiencing any unusual bleeding?: No Do you have any muscle aches/pain?: No Do you have any abdominal pain?: No Are you experiencing loss of taste or smell?: No Other Medical History Have you received the Flu Vaccine for this season: No Have you received the Pneumonia Vaccine: No <LIVE Sage - Last Filed: 03/18/25 17:50> ROS Obtained: Yes All systems reviewed & no additional complaints except as documented Physical Exam <LIVE Sage - Last Filed: 03/18/25 17:50> General General appearance: alert and in no apparent distress Head Head exam: atraumatic and normocephalic Eye Eye exam: Present PERRL and EOMI ENT ENT exam: Present mucous membranes moist Neck Neck exam: Present normal inspection Chest Chest inspection: Present normal inspection and symmetric chest wall rise Respiratory Respiratory exam: Present normal lung sounds bilaterally; Absent respiratory distress, wheezes or stridor Cardiovascular Cardiovascular exam: Present regular rate and normal rhythm Abdominal Exam Abdominal exam: Present soft; Absent tenderness, guarding or rebound Extremities Exam Extremities exam: Present normal inspection, edema, joint swelling and other (Some mild ecchymosis of the bilateral lower extremities left worse than right, around the pedal area, dorsal aspect of the foot, there is some mild soft tissue swelling/joint swelling about the left ankle worse than the right, otherwise vascularly intact, some decreased station to the feet and toes,); Absent tenderness Neurological Exam Neurological exam: Present alert and oriented X3 Psychiatric Psychiatric exam: Present normal affect Skin Skin exam: Present warm, dry and other (Some ecchymoses of the bilateral lower extremities left worse than right, with nonpitting edema/soft tissue swelling noted left worse than right., There is an area of what l with no real evidence of any erythema wound dehiscence or drainage ooks to be previous diabetic foot ulcer and some skin brandon) Medical Decision Making <LIVE Sage - Last Filed: 03/18/25 17:50> Medical Records Medical records reviewed: Yes I reviewed the patient's medical records. Screening: Per USPSTF and CDC recommendations, given the prevalence of disease in our region, it is our hospital?s policy to screen for HIV and viral Hepatitis for all patients aged 18 and over and those with ongoing risk factors. Perico Inquiry Pt receiving controlled substance: No Perico was queried for this patient: No Vital Signs: 03/18/25 15:04 03/18/25 15:15 03/18/25 16:59 Temperature 97.9 F Temperature Source Oral Pulse Rate 79 81 Pulse Rate [Radial] 80 Respiratory Rate 18 Blood Pressure 149/95 H 104/46 L Blood Pressure [Right Arm] 158/81 H Blood Pressure Mean [Right Arm] 106 Blood Pressure Source Blood Pressure Source [Right Arm] Automatic Cuff Blood Pressure Position Blood Pressure Position [Right Arm] Sitting 02 Sat by Pulse Oximetry 99 99 94 L Oxygen Delivery Method Room Air Room Air Room Air 03/18/25 17:00 03/18/25 17:59 Temperature 97.9 F Temperature Source Oral Pulse Rate 72 72 Pulse Rate [Radial] Respiratory Rate 18 Blood Pressure 105/70 L 105/70 L Blood Pressure [Right Arm] Blood Pressure Mean [Right Arm] Blood Pressure Source Automatic Cuff Blood Pressure Source [Right Arm] Blood Pressure Position Sitting Blood Pressure Position [Right Arm] 02 Sat by Pulse Oximetry 98 Oxygen Delivery Method Room Air Room Air Lab Data Lab results reviewed: Yes I reviewed the patient's lab results. Lab Results 03/18/25 15:33: WBC 6.4, RBC 4.80, Hgb 13.7 L, Hct 41.5 L, MCV 86.5, MCH 28.5, MCHC 33.0, RDW 14.1, Plt Count 179, MPV 10.4, Neut % (Auto) 75.5, Lymph % (Auto) 12.4, [place] % (Auto) 8.8, Eos % (Auto) 2.2, Baso % (Auto) 0.6, Neut # (Auto) 4.8, Lymph # (Auto) 0.8, [place] # (Auto) 0.6, Eos # (Auto) 0.1, Baso # (Auto) 0.0, PT 10.5, INR 0.93, APTT 26.2, Sodium 139, Potassium 4.9, Chloride 104, Carbon Dioxide 29, Anion Gap 10.9, BUN 28 H, Creatinine 1.30 H, Estimated Creat Clear 98, Estimated GFR 58 L, Est GFR ( Amer) 70, Glucose 199 H, Calcium 9.3, M agnesium 1.2 L, Total Bilirubin 0.7, AST 40, ALT 29, Alkaline Phosphatase 132 H, Total Protein 7.3, Albumin 4.1, Globulin 3.2, Albumin/Globulin Ratio 1.3 03/18/25 15:33 03/18/25 15:33 Orders (Tests/Meds): ED MEDICATIONS Discontinued Medications Generic Name Dose Route Start Last Admin Trade Name Freq PRN Reason Stop Dose Admin Magnesium Sulfate 2 gm in 50 mls @ 50 mls/hr 03/18/25 16:37 03/18/25 16:51 Magnesium Sulfate 2gm/50ml Premix IV 03/18/25 17:36 50 mls/hr ONCE ONE Administration ORDERS Category Date Time Status XR ankle LT 2V Stat Exams 03/18/25 15:20 Completed XR foot LT min 3V Stat Exams 03/18/25 15:20 Completed Complete Blood Count Auto Diff Stat Lab 03/18/25 15:33 Completed Comprehensive Metabolic Panel Stat Lab 03/18/25 15:33 Completed Magnesium Stat Lab 03/18/25 15:33 Completed PT INR [Prothrombin Time INR] Stat Lab 03/18/25 15:33 Completed PTT [Activated Partial Thrombo Time] Stat Lab 03/18/25 15:33 Completed CA venous doppler LE LT Stat Y 03/18/25 15:19 Completed Medical Decision Narrative: 54-year-old male presents to the emergency department bilateral lower extremity ecchymoses and left lower extremity pain, differential diagnosis include but not limited to coagulopathy, cellulitis, diabetic polyneuropathy, DVT, cellulitis, peripheral artery disease, diabetic foot ulcer among others. I discussed patient case with Dr. Smith saw and examined the patient as well Obtain basic laboratory studies, coagulation studies to include PT/INR,/PTT, magnesium level, will obtain lower extremity duplex ultrasound the left to rule out DVT, plain x-ray of the ankle and x-ray of the foot on the left. CBC notable for hemoglobin at 13.7 hematocrit 41.5 otherwise unremarkable CMP is notable for elevated BUN at 28, elevated creatinine 1.3, this appears to be around the patient's baseline and improved from last time, GFR is 58, hypomagnesia 1.2, thus will replace with 2 g IV magnesium, otherwise unremarkable CMP Coags within normal limits Reviewed the patient's left foot x-ray, left ankle x-ray along the corresponding radiologic report, no acute bony abnormalities, however there is minimal edema without acute bony abnormality. I reviewed the patient's lower extremity duplex, along with the corresponding radiologic report, no evidence of lower extremity DVT. I discussed the results with the patient at bedside, patient most likely has traumatic ecchymoses/spontaneous ecchymoses from doing platelet therapy, ruled out infection ruled out DVT or any other cause of the patient's lower extremity edema/ecchymoses, possibly dependent edema, patient will need follow-up with his PCP and other providers as directed, patient was given strict ED return precautions. Patient voiced understanding to the current treatment plan/discharge plan. <Patrick Smith MD - Last Filed: 03/18/25 19:57> Vital Signs: 03/18/25 15:04 03/18/25 15:15 03/18/25 16:59 Temperature 97.9 F Temperature Source Oral Pulse Rate 79 81 Pulse Rate [Radial] 80 Respiratory Rate 18 Blood Pressure 149/95 H 104/46 L Blood Pressure [Right Arm] 158/81 H Blood Pressure Mean [Right Arm] 106 Blood Pressure Source Blood Pressure Source [Right Arm] Automatic Cuff Blood Pressure Position Blood Pressure Position [Right Arm] Sitting 02 Sat by Pulse Oximetry 99 99 94 L Oxygen Delivery Method Room Air Room Air Room Air 03/18/25 17:00 03/18/25 17:59 Temperature 97.9 F Temperature Source Oral Pulse Rate 72 72 Pulse Rate [Radial] Respiratory Rate 18 Blood Pressure 105/70 L 105/70 L Blood Pressure [Right Arm] Blood Pressure Mean [Right Arm] Blood Pressure Source Automatic Cuff Blood Pressure Source [Right Arm] Blood Pressure Position Sitting Blood Pressure Position [Right Arm] 02 Sat by Pulse Oximetry 98 Oxygen Delivery Method Room Air Room Air Lab Data Lab Results 03/18/25 15:33: WBC 6.4, RBC 4.80, Hgb 13.7 L, Hct 41.5 L, MCV 86.5, MCH 28.5, MCHC 33.0, RDW 14.1, Plt Count 179, MPV 10.4, Neut % (Auto) 75.5, Lymph % (Auto) 12.4, [place] % (Auto) 8.8, Eos % (Auto) 2.2, Baso % (Auto) 0.6, Neut # (Auto) 4.8, Lymph # (Auto) 0.8, [place] # (Auto) 0.6, Eos # (Auto) 0.1, Baso # (Auto) 0.0, PT 10.5, INR 0.93, APTT 26.2, Sodium 139, Potassium 4.9, Chloride 104, Carbon Dioxide 29, Anion Gap 10.9, BUN 28 H, Creatinine 1.30 H, Estimated Creat Clear 98, Estimated GFR 58 L, Est GFR ( Amer) 70, Glucose 199 H, Calcium 9.3, M agnesium 1.2 L, Total Bilirubin 0.7, AST 40, ALT 29, Alkaline Phosphatase 132 H, Total Protein 7.3, Albumin 4.1, Globulin 3.2, Albumin/Globulin Ratio 1.3 Orders (Tests/Meds): ED MEDICATIONS Discontinued Medications Generic Name Dose Route Start Last Admin Trade Name Freq PRN Reason Stop Dose Admin Magnesium Sulfate 2 gm in 50 mls @ 50 mls/hr 03/18/25 16:37 03/18/25 16:51 Magnesium Sulfate 2gm/50ml Premix IV 03/18/25 17:36 50 mls/hr ONCE ONE Administration ORDERS Category Date Time Status XR ankle LT 2V Stat Exams 03/18/25 15:20 Completed XR foot LT min 3V Stat Exams 03/18/25 15:20 Completed Complete Blood Count Auto Diff Stat Lab 03/18/25 15:33 Completed Comprehensive Metabolic Panel Stat Lab 03/18/25 15:33 Completed Magnesium Stat Lab 03/18/25 15:33 Completed PT INR [Prothrombin Time INR] Stat Lab 03/18/25 15:33 Completed PTT [Activated Partial Thrombo Time] Stat Lab 03/18/25 15:33 Completed CA venous doppler LE LT Stat Y 03/18/25 15:19 Completed Medical Decision Narrative: 54-year-old male presents to the emergency department bilateral lower extremity ecchymoses and left lower extremity pain, differential diagnosis include but not limited to coagulopathy, cellulitis, diabetic polyneuropathy, DVT, cellulitis, peripheral artery disease, diabetic foot ulcer among others. I discussed patient case with Dr. Smith saw and examined the patient as well Obtain basic laboratory studies, coagulation studies to include PT/INR,/PTT, magnesium level, will obtain lower extremity duplex ultrasound the left to rule out DVT, plain x-ray of the ankle and x-ray of the foot on the left. CBC notable for hemoglobin at 13.7 hematocrit 41.5 otherwise unremarkable CMP is notable for elevated BUN at 28, elevated creatinine 1.3, this appears to be around the patient's baseline and improved from last time, GFR is 58, hypomagnesia 1.2, thus will replace with 2 g IV magnesium, otherwise unremarkable CMP Coags within normal limits Reviewed the patient's left foot x-ray, left ankle x-ray along the corresponding radiologic report, no acute bony abnormalities, however there is minimal edema without acute bony abnormality. I reviewed the patient's lower extremity duplex, along with the corresponding radiologic report, no evidence of lower extremity DVT. I discussed the results with the patient at bedside, patient most likely has traumatic ecchymoses/spontaneous ecchymoses from doing platelet therapy, ruled out infection ruled out DVT or any other cause of the patient's lower extremity edema/ecchymoses, possibly dependent edema, patient will need follow-up with his PCP and other providers as directed, patient was given strict ED return precautions. Patient voiced understanding to the current treatment plan/discharge plan. I was consulted by the KRYSTAL, and we discussed the complexity of the problems being addressed. I approved the treatment and management plan for this patient's care in the emergency department, thus performing a substantive portion of the medical decision making. Patrick Smith MD Critical Care <LIVE Sage - Last Filed: 03/18/25 17:50> Critical Care Time Critical Care Time: No
[2025-03-18 15:43] LABS: Basophils % 0.6 % (0.1-2.0); Eosinophils # 0.1 Kmm3 (0.0-0.4); Eosinophils % 2.2 % (0.1-12.0); Hematocrit 41.5 % (42.0-52.0); Hemoglobin 13.7 g/dL (14.1-18.0); Lymphocytes # 0.8 K/mm3 (0.7-4.5); Lymphocytes % 12.4 % (10-50); Mean Corpuscular Hemoglobin 28.5 pg (27.0-31.2); Mean Corpuscular Volume 86.5 fl (80-94); Mean Platelet Volume 10.4 fl (7.4-10.4); Monocytes # 0.6 K/mm3 (0.1-1.0); Monocytes % 8.8 % (1.7-9.3); Neutrophils # 4.8 K/mm3 (1.8-7.8); Neutrophils % 75.5 % (37.0-80.0); Nucleated Red Blood Cells # 0 10^3/uL; Nucleated Red Blood Cells % 0 %; Platelet Count 179 K/mm3 (142-424); Red Cell Distribution Width 14.1 % (11.5-17.5); Red Cell Distribution Width-SD 45.2 fL; White Blood Count 6.4 K/mm3 (4.8-10.8)
[2025-03-18 15:51] LABS: Activated Partial Thrombo Time 26.2 seconds (22.8-30.6); Albumin Level 4.1 g/dl (3.5-5.0); Chloride 104 mmol/L (98-107)
[2025-03-18 15:52] LABS: Potassium 4.9 mmoL/L (3.5-5.1); Sodium 139 mmol/L (136-145)
[2025-03-18 15:54] LABS: Alanine Aminotransferase 29 U/L (12-78); Albumin/Globulin Ratio 1.3 (1.1-1.8); Anion Gap 10.9 mEq/L (5-15); Aspartate Amino Transferase 40 U/L (17-59); Blood Urea Nitrogen 28 mg/dl (9-20); Carbon Dioxide 29 mmol/L (22.0-30.0); Creatinine Clearance Estimated 98 mL/min (50-200); Estimated Glomerular Filt Rate 58 ml/min (>60); GFR (African American) 70 ML/MIN (>60); Globulin 3.2 g/dL (1.3-3.2); Total Protein,Serum 7.3 g/dl (6.3-8.2)
[2025-03-18 15:55] LABS: Alkaline Phosphatase 132 U/L (38-126); Bilirubin,Total 0.7 mg/dl (0.2-1.3); Calcium 9.3 mg/dl (8.4-10.2); Glucose 199 mg/dl (74-100); Magnesium 1.2 mg/dl (1.6-2.3)
[2025-03-18 15:59] LABS: INR 0.93 (0.9-1.1); Prothrombin Time 10.5 seconds (10.1-12.5)
[2025-03-18] MEDS: MAGNESIUM SULFATE IN WATER 2 GM/50 ML PIGGYBACK IV (16:51)
[2025-03-18 16:59] VITALS: BP 104/46; PULSE 81; O2SAT 94
[2025-03-18 17:00] VITALS: BP 105/70; PULSE 72; O2SAT 98
[2025-03-18 17:59] VITALS: BP 105/70; PULSE 72; RESP 18; TEMP 36.6; O2SAT 98
== END 2025-03-18 18:00 | disposition home or self-care (01) ==
PROVIDERS: Physician Assistant; Emergency Provider Emergency Medicine; PCP Family Medicine
DX: S90.31XA Contusion of right foot, initial encounter (principal); S90.32XA Contusion of left foot, initial encounter; E11.59 Type 2 diabetes mellitus with other circulatory complications; E83.42 Hypomagnesemia; X58.XXXA Exposure to other specified factors, initial encounter
CPT/HCPCS: 73600; 73630; 80053; 83735; 85025; 85610; 85730; 93971; 96365; 99284; J3475

== ENCOUNTER 2025-03-19 07:25 | Outpatient (CLI) | payer MEDICAID, SELFPAY ==
--- OUTSIDE RECORDS SUMMARY | 2025-03-19 07:28 | XMS_ITS ---
Care Plan - [facility], [facility] Created on: March 19, 2025 Jonathan Delgado : 1970 Sex: Male Author Organization [facility] , [facility] Address [address] [place] [address] Phone Care Team Providers [employer] Assistant Name Role Phone Quyen Vincent DO Primary Care Provider [phone] Chris DE LA CRUZ, Vannessa Allison Unavailable [phone]
--- OUTSIDE RECORDS SUMMARY | 2025-03-19 07:28 | XMS_ITS | Clinical Summary ---
Author Organization [facility] , [facility] Address [address] [place] [address] Phone Care Team Providers Care Health And Wellness Coach Name Role Phone Quyen Vincent DO Primary Care Provider [phone] Chris DE LA CRUZ, Vannessa Allison Unavailable [phone] Reason for Visit and Chief Complaint The Chief Complaint is: low back pain Problems Includes: Problems addressed during this encounter and other active Problems Current Visit Onset Date Resolved Date Provider Conditio n Status Lower Back Pain 10/09/2020 Horacio Zamudio MD Act farnaz Last Documented On 0 9:26AM ; [facility] Past Visits Onset Date Resolved Date Provider Condition Status Neck Pain 10/09/2020 Horacio Zamudio MD Active Last Documented On 0 9:26AM ; [facility], [facility] Joint Pain, Localized in the Left Shoulder 07/20/2018 Vannessa Perez MD Active Last Documented On 8 8:04AM ; [facility], [facility] Plan of Treatment Patient was seen by myself and Dr. Robb Wang PA-C. Patient will follow up 6 weeks repeat lumbar spine x-rays he can weightbear as tolerated we are going to start him in his some physical therapy - Last Documented On 02/11/2025 9:42AM ; [facility], [facility] Pending Tests Order Diagnosis Results Due Ordering P rovider Radiology - MRI MRI Lumbar Spine Low back pain, unspecified 07/11/24 Horacio Zamudio MD Last Documented On 5 1:29PM ; [facility] Therapy - Physical Therapy Lumbar Low back pain Horacio Zamudio MD Last Documented On 5 9:42AM ; [facility], [facility] Future Appointments Date Time Location Provi luis antonio Post Op 03/20/2025 11:00AM [facility] ALATNAStephania Zamudio MD Last Documented On 5 1:12PM ; [facility], [facility] Follow Up 04/23/2025 1:15PM [facility] ALATNAStephania Wang PA-C Last Documented On 5 8:59AM ; [facility], [facility] Instructions to patient Lose weight Last Documented On 12:59PM ; [facility], [facility] Assessments Includes: Assessments from this encounter Findings - Overweight - Last Documented On 02/11/2025 9:42AM ; [facility], [facility] L4-L5 decompression fusion December 25, 2024 - Last Documented On 02/11/2025 9:42AM ; [facility], [facility] Instructions Includes: Instructions from this encounter Instructions to patient Lose weight Last Documented On 5 12:59PM ; [facility], [facility] Medical Equipment - Implanted Devices Includes: Current Devices No Medical Equipment Recorded Medications Includes: Medications discussed during this encounter and other current Medications Current Medications (continue as prescribed) Sertraline HCl 200 MG Oral Capsule 03/10/2025 Provid er: Diagnosis: Last Documented On 10:06AM By Arthur Lam [facility], [facility] Ranolazine ER 1000 MG Oral Packet 03/10/2025 Provide r: Diagnosis: Last Documented On 10:06AM By Arthur Lam [facility], [facility] Ranolazine ER 1000 MG Oral Tablet Extended Release 12 Hour 03/03/2025 Provider: Diagnosis: Last Documented On 5 8:18AM By Arthur Loving ; [facility], [facility] Folic Acid 1 MG Oral Tablet 02/25/2025 Provider: Quyen Vincent DO Diagnosis: Last Documented On 5 8:18AM By Arthur Loving ; [facility], [facility] Vitamin D (Ergocalciferol) 1 .25 MG (43536 UT) Oral Capsule 02/25/2025 Provider: Quyen Vincent DO Diagnosis: Last Documented On 5 8:18AM By Arthur Loving ; [facility], [facility] Sucralfate 1 GM/10ML Oral Suspension 01/14/2025 Prov ider: Diagnosis: Last Documented On 5 8:18AM By Arthur Loving ; [facility], [facility] oxyCODONE-Acetaminophen 5-325 MG Oral Tablet Provider: Horacio Zamudio MD Diagnosis: Last Documented On 5 8:18AM By Arthur Loving ; [facility], [facility] HumaLOG 100 UNIT/ML Injection Solution 12/13/2024 Pr ovider: Diagnosis: Last Documented On 5 8:18AM By Arthur Loving ; [facility], [facility] traMADol HCl 50 MG Oral Tablet 12/12/2024 Provider: Quyen Vincent DO Diagnosis: Last Documented On 5 8:18AM By Arthur Loving ; [facility], [facility] buPROPion HCl 75 MG Oral Tablet 12/09/2024 Provider: Diagnosis: Last Documented On 5 8:18AM By Arthur Loving ; [facility], [facility] amLODIPine Besylate 2.5 MG Oral Tablet 11/05/2024 Pr ovider: Quyen Vincent DO Diagnosis: Last Documented On 5 8:18AM By Arthur Loving ; [facility], [facility] Midodrine HCl 5 MG Oral Tablet 11/05/2024 Provider: Diagnosis: Last Documented On 5 8:18AM By Arthur Loving ; [facility], [facility] Pantoprazole Sodium 40 MG Oral Tablet Delayed Release 11/05/2024 Provider: Diagnosis: Last Documented On 5 8:18AM By Arthur Loving ; [facility], [facility] Gabapentin 300 MG Oral Capsule 06/12/2024 Provider: Georgina Marshall DO Diagnosis: Last Documented On 4 10:47AM By Deborah Gant ; [facility], [facility] Dexcom G6 Sensor Miscellaneous 06/10/2024 Provider: Diagnosis: Last Documented On 4 10:47AM By Deborah Gant ; [facility], [facility] Insulin Lispro 100 UNIT/ML Injection Solution 06/10/20 Provider: Diagnosis: Last Documented On 4 10:47AM By Deborah Gant ; [facility] tiZANidine HCl 4 MG Oral Tablet 06/05/2024 Provider: Quyen Vincent DO Diagnosis: Last Documented On 4 10:47AM By Deborah Gant ; [facility], [facility] metFORMIN HCl ER 500 MG Oral Tablet Extended Rel ease 24 Hour 06/05/2024 Provider: Diagnosis: Last Documented On 4 10:47AM By Deborah Gant ; [facility] Primidone 50 MG Oral Tablet 06/02/2024 Provider: Georgina Marshall DO Diagnosis: Last Documented On 4 10:47AM By Deborah Gant ; [facility] Promethazine HCl 25 MG Oral Tablet 05/29/2024 Provid er: Quyen Vincent DO Diagnosis: Last Documented On 4 10:47AM By Deborah Gant ; [facility], [facility] Atorvastatin Calcium 40 MG Oral Tablet 05/25/2024 Pr ovider: Diagnosis: Last Documented On 4 10:47AM By Deborah Gant ; [facility], [facility] Bisoprolol Fumarate 5 MG Oral Tablet 05/25/2024 Prov ider: Diagnosis: Last Documented On 4 10:47AM By Deborah Gant ; [facility], [facility] Jardiance 10 MG Oral Tablet 05/16/2024 Provider: Diagnosis: Last Documented On 4 10:47AM By Deborah Gant ; [facility] Brilinta 90 MG Oral Tablet 05/05/2024 Provider: Diagnosis: Last Documented On 4 10:47AM By Deborah Gant ; [facility] Aspirin Low Dose 81 MG Oral Tablet Delayed Release 10/2024 Provider: Diagnosis: Last Documented On 4 10:47AM By Deborah Gant ; [facility], [facility] Sertraline HCl 100 MG Oral Tablet 04/07/2024 Provide r: Quyen Vincent DO Diagnosis: Last Documented On 4 10:47AM By Deborah Gant ; [facility], [facility] Dexcom G6 Transmitter Miscellaneous 02/16/2024 Provi luis antonio: Diagnosis: Last Documented On 4 10:47AM By Deborah Gant ; [facility], [facility] NovoLOG 100 UNIT/ML Injection Solution 01/29/2024 Pr ovider: Diagnosis: Last Documented On 4 10:47AM By Deborah Gant ; [facility], [facility] Naproxen 500 MG Oral Tablet 01/11/2024 Provider: Diagnosis: Last Documented On 4 10:47AM By Deborah Gant ; [facility], [facility] Past Medications on file Percocet 5-325 MG Oral Tablet 01/07/2025 - 01/17/2025 Provider: Horacio Zamudio MD Diagnosis: 1 tab every 6 hrs prn pain Last Documented On 5 2:53PM By Horacio Zamudio ; [facility], [facility] Percocet 5-325 MG Oral Tablet 12/25/2024 - 01/09/2025 Provider: Horacio Zamudio MD Diagnosis: 1 po q 4h prn pain Last Documented On 5 8:29AM By Horacio Zamudio ; [facility], [facility] Meloxicam 15 MG Oral Tablet 06/27/2024 - 08/26/2024 Pr ovider: Horacio Zamudio MD Diagnosis: Take one tablet my mouth once a day Last Documented On 4 11:02AM By Wendi Gibbons ; [facility], [facility] traMADol HCl 50 MG Oral Tablet 12/25/2020 - 03/25/2021 Provider: Casper Negrete MD Diagnosis: Take 1 tablet every 8 hrs prn pain Last Documented On 1 4:04PM By Casper Negrete ; [facility], [facility] Dexamethasone Sodium Phosphate 4MG/ML Injection Solution [...] er: Vannessa Perez MD Diagnosis: bhcalled to [phone] Last Documented On 9 3:34PM By Tatum [...] 9 9:07AM By Tatum 2 User ; [facility], [facility] Motrin 800 MG OR TABS 02/12/2008 - 03/13/2008 Provider : Vannessa Perez MD Diagnosis: bh Last Documented On 8 1:51PM By Tatum 1 User ; [facility], [facility] Lortab 7.5-500 MG OR TABS 06/21/2007 - 06/28/2007 Prov ider: Vannessa Perez MD Diagnosis: as needed for painbh Last Documented On 7 9:11AM By Tatum 3 User ; [facility], [facility] DENIED EX MISC 06/07/2007 - 06/08/2007 Provider: Rere Aranda MD Diagnosis: pt can take tylenol 500 mg 1 -2 q 4-6 hrs and advil or ibuprofen 2 of them 3 x a day until f/u for mri results/ left message with patients for h Last Documented On 7 9:39AM By Lesley Escamilla ; [facility], [facility] Medications Administered Includes: Administered Medications from this encounter No Administered Medications Recorded Vital Signs Includes: Vital Signs from this encounter Vital Name 02/06/2025 01:22P Height (in) 74 Weight (lb) 230 Body Mass Index 29.5 Body Surface Area 2.3 Pain Level 8 Last Documented: On 02/06/2025 1:22PM ; [facility], [facility] Results Includes: Results discussed during this [...] Last Documented On 5 12:59PM ; [facility], [facility] Not a current smoker. 06/27/2024 Last Documented On 5 12:59PM ; [facility], [facility] No caffeine use 07/16/2021 Last Documented On 5 12:59PM ; [facility], [facility] Not using alcohol 07/16/2021 Last Documented On 5 12:59PM ; [facility], [facility] Not using drugs 07/16/2021 Last Documented On 5 12:59PM ; [facility], [facility] Smoking status : Former smoker Last Documented On 5 12:59PM ; [facility], [facility] Not exercising regularly 10/13/2016 Last Documented On 5 12:59PM ; [facility], [facility] Procedures and Surgical History Includes: Procedures from this encounter Procedures Code Diagnosis Performing Provider Service Location Service Date X-RAY EXAM OF LOWER SPINE 2-3 VIEWS LIMITED 51828 Fusion of spine, lumbar region Horacio Zamudio MD [facility] 02/06/2025 Last Documented On 5 4:51PM ; [facility], [facility] CT scan [facility] [address] Last Documented On 5 12:59PM ; [facility], [facility] Surgical History Last Updated History of back surgery L4-5 Open Decomp ression & Fusion 12/25/24 02/11/2025 Last Documented On 5 9:42AM ; [facility], [facility] Past Surgical History: left elbow surger y 02/11/2025 Last Documented On 5 9:42AM ; [facility], [facility] History of History of Gallbladder 2023 Last Documented On 5 12:59PM ; [facility], [facility] History of total knee arthroplasty 06/27 Last Documented On 5 12:59PM ; [facility], [facility] History of appendectomy 10/13/2016 Last Documented On 5 12:59PM ; [facility], [facility] History of heart surgery 10/13/2016 Last Documented On 5 12:59PM ; [facility], [facility] History of hernia repair 10/13/2016 Last Documented On 5 12:59PM ; [facility], [facility] Medical History Includes: Medical History addressed during this encounter Description Last Updated History of arthritis 06/27/2024 Last Documented On 5 12:59PM ; [facility] History of Heartburn / Acid Reflux 06/27 Last Documented On 5 12:59PM ; [facility] History of Hypertension 06/27/2024 Last Documented On 5 12:59PM ; [facility] History of Sleep Apnea 06/27/2024 Last Documented On 5 12:59PM ; [facility] Use of CPAP 06/27/2024 Last Documented On 5 12:59PM ; [facility] Arthritic joint problems 10/13/2016 Last Documented On 5 12:59PM ; [facility] Gallbladder disease 10/13/2016 Last Documented On 5 12:59PM ; [facility] History of depression 10/13/2016 Last Documented On 5 12:59PM ; [facility] History of diabetes mellitus 10/13/2016 Last Documented On 5 12:59PM ; [facility] History of heart disease 10/13/2016 Last Documented On 5 12:59PM ; [facility] Intermittent hypertension 10/13/2016 Last Documented On 5 12:59PM ; [facility] Family History Includes: Family History addressed during this encounter Description Last Updated Family history of heart disease 11/30/19 21 Last Documented On 5 12:59PM ; [facility] lupus 07/20/2018 Last Documented On 5 12:59PM ; [facility] Paternal history of diabetes mellitus Last Documented On 5 12:59PM ; [facility] Maternal history of diabetes mellitus Last Documented On 5 12:59PM ; [facility] Maternal history of hypertension 016 Last Documented On 5 12:59PM ; [facility] Review of Systems Includes: Review of Systems [...] Active Last Documented On 5 8:18AM ; [facility] Encounters Encounter Provider Location Date Check-In Time Check-Out Time Diagnosis Post Op Horacio Zamudio MD [facility] 5 12:53PM 1:13PM Overweight Insurance Includes: Active Insurance Policies Plan Name Member ID Group # Subscriber Relationship Effect farnaz Dates 1 - [employer] [id number] Jonathan Delgado Self 11/27/2024 - Unknown Clinical Notes Includes: Clinical Notes from this encounter * Progress note Date Encounter Last Documented by 02/06/2025 Post Op Last documented on 02/11/2025; 9:42 AM, Horacio Zamudio MD; [facility] Active Problems & Conditions - Joint [...] Previous Tests Imaging: CT Scan: CT scan [facility]. Available previous imaging studies were [...] Care Team - Quyen Vincent DO - UROLOGIST Health Reminders - Assess BMI satisfied 02/06/2025. - Assess Tobacco Use satisfied 02/06/2025. - Follow Up Plan BMI Management satisfied 02/06/2025.
--- OUTSIDE RECORDS SUMMARY | 2025-03-19 07:28 | XMS_ITS | Data Portability ---
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 Delgado is her e for: 1)History of Pancreatitis - Patient had epigastric and left sided abdominal pain in April which was severe enough to be admitted to OSH. He was told imaging and slightly elevated Lipase supported pancreatitis. - He is Type 2 diabetic - Denies family history pancreatitis - Will obtain labs to assess for causes of acute pancreatitis such as autoimmune, obstruction, alcohol, elevated calcium etc -Encouraged continued alcohol cessation encouraged. Patient educated on negative affects of alcohol. -Maintain low fat diet -Encourage high protein, high energy food in 5-6 meals daily for malnourishment 2) Diarrhea 3) HX Cholecystectomy 4) Bile Acid Malabsorption - Will order GI panel, CRP, pancreatic elastase, fecal fat, ova and parasites, calprotectin, celiac disease panel to asses for infectious etiology, functional disorders and organic disorders - diarrhea is sudden after finishing a meal - Choley was 13 years ago. - trial Colestipol 2g in am and 2 g in pm for bile acid malabsorption 5)Colorectal Cancer Screening - Reports last colonoscopy > 10 years ago, no polyps - No family history of colon cancer - Schedule screening colonoscopy 2 week procedure F/U Not available 08/15/2024 14:49:30 11/05/2024 11/05/2024 Mr. Delgado is her e for: 1)History of Pancreatitis 2) Diabetic - Patient had epigastric and left sided abdominal pain in April which was severe enough to be admitted to OSH. He was told imaging and slightly elevated Lipase supported pancreatitis. - Denies family history pancreatitis - IgG4 negative -Encouraged continued alcohol cessation encouraged. Patient educated on negative affects of alcohol. -Maintain low fat diet -Encourage high protein, high energy food in 5-6 meals daily for malnourishment 3) Diarrhea 4) HX Cholecystectomy 5) Bile Acid Malabsorption 6) recent C. Diff Infection - LAst visit ordered GI panel, CRP, pancreatic elastase, fecal fat, ova and parasites, calprotectin, celiac disease panel to asses for infectious etiology, functional disorders and organic disorders - C. Diff + and treated with vancomycin - recent stool test after colonoscopy showed C. Diff antigen negative - Taking Colestipol 2g in am but still having some diarrhea at night. Recommended he take colestipol 1 pill am and 1 pill pm. - If continues to have diarrhea will get another stool test for C. Diff and possibly CT scan 7)nausea - Start pantoprazole 40 mg daily 8)Colorectal Cancer Screening - Colonoscopy 09/25/2024 , 1 polyp, repeat 5 years Not available 11/05/2024 15:40:40 01/14/2025 01/14/2025 Mr. Delgado is her e for: 1)History of Pancreatitis 2)Diabetic - Patient had epigastric and left sided abdominal pain in April which was severe enough to be admitted to OSH. He was told imaging and slightly elevated Lipase supported pancreatitis. - Denies family history pancreatitis - IgG4 negative -Encouraged continued alcohol cessation encouraged. Patient educated on negative affects of alcohol. -Maintain low fat diet - Current description of pain does not sound like pancreatitis but may consider lipase on follow up if no resolution 3) Diarrhea- improved 4) HX Cholecystectomy 5) Bile Acid Malabsorption 6) recent C. Diff Infection- resolved - Last visit ordered GI panel, CRP, pancreatic elastase, fecal fat, ova and parasites, calprotectin, celiac disease panel to asses for infectious etiology, functional disorders and organic disorders - C. Diff + and treated with vancomycin - recent stool test after colonoscopy showed C. Diff antigen negative - Taking colestipol 1 pill am and 1 pill pm 7)nausea 8)Epigastric Abdominal Pain - continues epigastric pain after eating and nausea concerning for gastritis - Continue pantoprazole 40 mg daily - Start sulcralfate for 8 weeks to see if improvement in abdominal pain/nausea 8)Colorectal Cancer Screening - Colonoscopy 09/25/2024 , 1 polyp, repeat 5 years (2028) Not available 01/14/2025 21:53:47 Plan of Treatment Reminders Order Date Submit Date Provider Last Modified By Organization Details Last Modified Time Details Appointments Establish ed Visit 15 min 2024 01:00P M AMINTA BARRETT, SHUKRI Not available Not available Not available Lab gastroint estinal pathogens panel, PCR, stool 2023 024 [facility], [address], [address], [place], [address], 08/22/2024 16:27:23 calprotec tin, stool 2023 024 [facility], [address], [address], [place], [address], 08/29/2024 07:16:57 O&P (ova & parasites ), stool 2023 024 [facility], [address], [address], [place], [address], 08/29/2024 07:16:59 fecal fat, qualitati ve, stool 2023 024 [facility], [address], [address], [place], [address], 08/29/2024 07:16:56 ESR (erythroc yte sedimenta tion rate), blood 2023 024 [facility], [address], [address], [place], [address], 09/04/2024 11:15:28 C-reactiv e protein, quantitat farnaz, serum or plasma 2023 024 [email or web address] [facility], [address], [address], [place], [address], 09/13/2024 15:39:56 H pylori Ag, stool 2023 024 [facility], [address], [address], [place], [address], 08/29/2024 08:28:00 pancreati c elastase, quant, stool 2023 024 [facility], [address], [address], [place], [address], 08/29/2024 07:16:58 phosphati dylethano l, QN, blood 2023 024 [facility], [address], [address], [place], [address], 09/04/2024 11:15:23 HbA1c (hemoglob in A1c), blood 2023 024 [facility], [address], [address], [place], [address], 09/04/2024 11:15:27 amylase + lipase, serum 2023 024 [facility], [address], [address], [place], [address], 09/04/2024 11:15:24 calcium, ionized, quant ISE, serum or plasma 2023 024 [facility], [address], [address], [place], [address], 09/04/2024 11:15:29 lipid panel, serum 2023 024 [facility], [address], [address], [place], [address], 09/04/2024 11:15:22 igg, subclass 4, quantitat farnaz, serum 2023 024 [facility], [address], [address], [place], [address], 09/04/2024 11:15:30 7-alpha hydroxy-4 -choleste n-3-one, QN, serum or plasma 2023 024 [facility], [address], [address], [place], [address], 09/04/2024 11:15:26 CMP, serum or plasma 2023 024 [facility], [address], [address], [place], [address], 09/04/2024 11:15:21 CMP, serum or plasma [address] [facility] (Lab Registration) , [address] [place] [address] [place], [address], 07/02/2024 09:38:57 CBC w/ auto diff [address] [facility] (Lab Registration) , [address] [place] [address] [place], [address], 07/02/2024 09:38:57 Referral None recorded. Procedures None recorded. Surgeries None recorded. Imaging CT, abdomen, w/ contrast 2023 024 [facility] (Central Scheduling), [address] [place] [address] [place], [address], 07/23/2024 09:51:43 Medication Orders sucralfat e 100 mg/mL oral suspensio n 2024 025 [email or web address] [facility]/Pharmacy #[id number], [address] [place], [address], 02/07/2025 09:51:45 pantopraz ole 40 mg tablet,de layed release 2023 024 [facility] #[id number], [address] [place], [address], 11/05/2024 15:41:35 colestipo l 1 gram tablet 2023 024 [id number] [address] [place], [address], 08/15/2024 11:07:18 gabapenti n 300 mg capsule 2023 024 [email or web address] [facility]/Pharmacy #[id number], [address] [place], [address], 03/01/2024 10:21:21 primidone 50 mg tablet 2023 024 [id number], [address] [place], [address], 03/01/2024 10:05:59 Patient TargetsNo targets recorded. Patient Instructions Encounter Date Encounter Id Patient Instructions Last Modified By Organization Details Last Modified Time 01/14/2025 [id number] f/u 8 weeks [email or web address] Not available 21:53:52 Reason for Referral None Reported. Results Created Date Observation Date Name Description Value Unit Range Abnormal Flag Note LastModifiedBy Organization Detail LastModifiedTime 06/25/2006/25/2024 CBC W/ AUTO DIFF WBC 7.54 K/uL 4.5-11 .5 Not Available [facility] ([facility]) [address] [place] [address] [place], [address], 06/25/2024 15:47:19 06/25/20 24 06/25/2024 CBC W/ AUTO DIFF RBC 5.37 M/uL 4.0-5. 4 Not Available [facility] ([facility]) [address] [place] [address] [place], [address], 06/25/2024 15:47:19 06/25/20 24 06/25/2024 CBC W/ AUTO DIFF HGB 14.9 g/dL 14.0-1 8.0 Not Available [facility] (Pre-Op Clinic) [address] [place] [address] [place], [address], 06/25/2024 15:47:19 06/25/20 24 06/25/2024 CBC W/ AUTO DIFF HCT 45.8 % 40-54 Not Available [facility] ([facility]Op [facility]) [address] [place] [address] [place], [address], 06/25/2024 15:47:19 06/25/20 24 06/25/2024 CBC W/ AUTO DIFF MCV 85.3 fL 80.0-1 00.0 Not Available [facility] ([facility]) [address] [place] [address] [place], [address], 06/25/2024 15:47:19 06/25/20 24 06/25/2024 CBC W/ AUTO DIFF MCH 27.7 pg 26.0-3 2.0 Not Available [facility] ([facility]) [address] [place] [address] [place], [address], 06/25/2024 15:47:19 06/25/20 24 06/25/2024 CBC W/ AUTO DIFF MCHC 32.5 g/dL 32.0-3 6.0 Not Available [facility] ([facility]) [address] [place] [address] [place], [address], 06/25/2024 15:47:19 06/25/20 24 06/25/2024 CBC W/ AUTO DIFF RDW 13.9 % 11.5-1 4.5 Not Available [facility] ([facility]) [address] [place] [address] [place], [address], 06/25/2024 15:47:19 06/25/20 24 06/25/2024 CBC W/ AUTO DIFF platelet count 166 K/uL 142-42 4 Not Available [facility] ([facility]) [address] [place] [address] [place], [address], 06/25/2024 15:47:19 06/25/20 24 06/25/2024 CBC W/ AUTO DIFF MPV 10.5 fL 6.8-10 .2 high Not Available [facility] ([facility]) [address] [place] [address] [place], [address], 06/25/2024 15:47:19 06/25/20 24 06/25/2024 CBC W/ AUTO DIFF neutrophil % 73.6 % 50-70 high Not Available [facility] ([facility]) [address] [place] [address] [place], [address], 06/25/2024 15:47:19 06/25/20 24 06/25/2024 CBC W/ AUTO DIFF lymphocyte % 14.6 % 18.0-4 2.0 low Not Available [facility] ([facility]) [address] [place] [address] [place], [address], 06/25/2024 15:47:19 06/25/20 24 06/25/2024 CBC W/ AUTO DIFF monocyte % 7.4 % 2.0-11 .0 Not Available [facility] ([facility]) [address] [place] [address] [place], [address], 06/25/2024 15:47:19 06/25/20 24 06/25/2024 CBC W/ AUTO DIFF eosinophil % 3.2 % 1.0-3. 0 high Not Available [facility] ([facility]) [address] [place] [address] [place], [address], 06/25/2024 15:47:19 06/25/20 24 06/25/2024 CBC W/ AUTO DIFF basophil % 0.8 % 0.0-2. 0 Not Available [facility] ([facility]) [address] [place] [address] [place], [address], 06/25/2024 15:47:19 06/25/20 24 06/25/2024 CBC W/ AUTO DIFF immature granulocytes % 0.4 % 0.0-0. 8 Not Available [facility] ([facility]) [address] [place] [address] [place], [address], 06/25/2024 15:47:19 06/25/20 24 06/25/2024 CBC W/ AUTO DIFF nucleated red blood cells % 0.0 % Not Available [facility] ([facility]) [address] [place] [address] [place], [address], 06/25/2024 15:47:19 06/25/20 24 06/25/2024 CBC W/ AUTO DIFF neutrophil # 5.55 K/uL Not Available [facility] ([facility]Op [facility]) [address] [place] [address] [place], [address], 06/25/2024 15:47:19 06/25/20 24 06/25/2024 CBC W/ AUTO DIFF lymphocyte # 1.10 K/uL Not Available [facility] ([facility]Op [facility]) [address] [place] [address] [place], [address], 06/25/2024 15:47:19 06/25/20 24 06/25/2024 CBC W/ AUTO DIFF monocyte # 0.56 K/uL Not Available [facility] ([facility]) [address] [place] [address] [place], [address], 06/25/2024 15:47:19 06/25/20 24 06/25/2024 CBC W/ AUTO DIFF eosinophil # 0.24 K/uL Not Available [facility] ([facility]) [address] [place] [address] [place], [address], 06/25/2024 15:47:19 06/25/20 24 06/25/2024 CBC W/ AUTO DIFF basophil # 0.06 K/uL Not Available [facility] ([facility]) [address] [place] [address] [place], [address], 06/25/2024 15:47:19 06/25/20 24 06/25/2024 CBC W/ AUTO DIFF immature gramulocytes # 0.03 K/uL Not Available [facility] ([facility]) [address] [place] [address] [place], [address], 06/25/2024 15:47:19 06/25/20 24 06/25/2024 CBC W/ AUTO DIFF nucleated red blood cells # 0.00 k/uL Not Available [facility] ([facility]) [address] [place] [address] [place], [address], 06/25/2024 15:47:19 06/25/20 24 06/25/2024 CBC W/ AUTO DIFF manual differential NO Not Available [facility] ([facility]) [address] [place] [address] [place], [address], 06/25/2024 15:47:19 06/25/20 24 06/25/2024 CBC W/ AUTO DIFF note Unles s other rey noted testi ng perfo rmed at: [facility] [address] [place] [address] Jose zamora MD Not Available [facility] ([facility]) [address] [place] [address] [place], [address], 06/25/2024 15:47:19 06/25/20 24 06/25/2024 COMP METAB OLIC PANEL sodium 141 mmol/ L 137-14 7 Not Available [facility] ([facility]) [address] [place] [address] [place], [address], 06/25/2024 17:12:06 06/25/20 24 06/25/2024 COMP METAB OLIC PANEL potassium 4.6 mmol/ L 3.5-5. 1 Not Available [facility] ([facility]) [address] [place] [address] [place], [address], 06/25/2024 17:12:06 06/25/20 24 06/25/2024 COMP METAB OLIC PANEL chloride 101 mmol/ L 98-110 Not Available [facility] ([facility]) [address] [place] [address] [place], [address], 06/25/2024 17:12:06 06/25/20 24 06/25/2024 COMP METAB OLIC PANEL carbon dioxide 23 mmol/ L 21-30 Not Available [facility] ([facility]) [address] [facility] [place], [address], 06/25/2024 17:12:06 06/25/20 24 06/25/2024 COMP METAB OLIC PANEL anion gap 17 mmol/ L 6-14 high Not Available [facility] ([facility]) [address] [facility] [place], [address], 06/25/2024 17:12:06 06/25/20 24 06/25/2024 COMP METAB OLIC PANEL glucose 312 mg/dL 70-115 high Not Available [facility] ([facility]Op [facility]) [address] [place] [address] [place], [address], 06/25/2024 17:12:06 06/25/20 24 06/25/2024 COMP METAB OLIC PANEL BUN 28 mg/dL 9-20 high Not Available [facility] ([facility]) [address] [facility] [place], [address], 06/25/2024 17:12:06 06/25/20 24 06/25/2024 COMP METAB OLIC PANEL creatinine 1.1 mg/dL 0.5-1. 5 Not Available [facility] ([facility]Op [facility]) [address] [place] [address] [place], [address], 06/25/2024 17:12:06 06/25/20 24 06/25/2024 COMP METAB OLIC PANEL BUN/creatini ne ratio 25 ratio 10-20 high Not Available [facility] ([facility]) [address] [place] [address] [place], [address], 06/25/2024 17:12:06 06/25/20 24 06/25/2024 COMP METAB OLIC PANEL glom filtration rate 80 mL/mi n >60- Not Available [facility] ([facility]) [address] [place] [address] [place], [address], 06/25/2024 17:12:06 06/25/20 24 06/25/2024 COMP METAB OLIC PANEL osmolality (calculated) 310 mosmo l/kg 275-30 1 high OSMOL ALITY IS A CALCU LATIO N UTILI ZING THE SERUM /PLAS MA SODIU M, GLUCO SE AND UREA NITRO GEN (BUN) LEVEL S. FOR THE MOST ACCUR ATE RESUL T A MEASU RED SERUM OSMOL ALITY IS SUGGE STED. Not Available [facility] ([facility]) [address] [facility] [place], [address], 06/25/2024 17:12:06 06/25/20 24 06/25/2024 COMP METAB OLIC PANEL total protein 6.9 g/dL 6.2-8. 2 Not Available [facility] ([facility]) [address] [place] [address] [place], [address], 06/25/2024 17:12:06 06/25/20 24 06/25/2024 COMP METAB OLIC PANEL albumin 4.6 g/dL 3.5-5. 0 Not Available [facility] ([facility]) [address] [place] [address] [place], [address], 06/25/2024 17:12:06 06/25/20 24 06/25/2024 COMP METAB OLIC PANEL calcium 9.5 mg/dL 8.5-10 .8 Not Available [facility] ([facility]) [address] [place] [address] [place], [address], 06/25/2024 17:12:06 06/25/20 24 06/25/2024 COMP METAB OLIC PANEL bilirubin total 0.5 mg/dL 0.2-1. 3 Not Available [facility] ([facility]) [address] [place] [address] [place], [address], 06/25/2024 17:12:06 06/25/20 24 06/25/2024 COMP METAB OLIC PANEL AST (SGOT) 36 IU/L 17-59 Not Available [facility] ([facility]) [address] [place] [address] [place], [address], 06/25/2024 17:12:06 06/25/20 24 06/25/2024 COMP METAB OLIC PANEL ALT (SGPT) 27 IU/L 0-50 Pleas e note new refer ence inter farrah for ALT. 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 Not Available [facility] ([facility]) [address] [place] [address] [place], [address], 06/25/2024 17:12:06 06/25/20 24 06/25/2024 COMP METAB OLIC PANEL alk phosphatase 107 IU/L 38-126 Not Available [facility] (Pre[facility]Op [facility]) [address] [place] [address] [place], [address], 06/25/2024 17:12:06 06/25/20 24 06/25/2024 COMP METAB OLIC PANEL note Unles s other rey noted testi ng perfo rmed at: [facility] [address] [place] [address] Jose zamora MD Not Available [facility] ([facility]) [address] [place] [address] [place], [address], 06/25/2024 17:12:06 08/15/20 24 08/16/2024 COMP. METAB OLIC PANEL (14) glucose 114 mg/dL 70-99 above high normal Not Available [facility] ([facility]) [address] [place], [address], 09/04/2024 11:15:21 08/15/20 24 08/16/2024 COMP. METAB OLIC PANEL (14) BUN 30 mg/dL 6-24 above high normal Not Available [facility] ([facility]) [address] [place], [address], 09/04/2024 11:15:21 08/15/20 24 08/16/2024 COMP. METAB OLIC PANEL (14) creatinine 1.15 mg/dL 0.76-1 .27 normal Not Available [facility] ([facility]) [address] [facility], [place], [address], 09/04/2024 11:15:21 08/15/20 24 08/16/2024 COMP. METAB OLIC PANEL (14) eGFR 76 mL/mi n/1.7 3 >59 normal Not Available [facility] ([facility]) [address] [place], [address], 09/04/2024 11:15:21 08/15/20 24 08/16/2024 COMP. METAB OLIC PANEL (14) BUN/creatini ne ratio 26 9-20 above high normal Not Available [facility] ([facility]) [address] [place], [address], 09/04/2024 11:15:21 08/15/20 24 08/16/2024 COMP. METAB OLIC PANEL (14) sodium 145 mmol/ L 134-14 4 above high normal Not Available [facility] ([facility]) [address] [place], [address], 09/04/2024 11:15:21 08/15/20 24 08/16/2024 COMP. METAB OLIC PANEL (14) potassium 4.6 mmol/ L 3.5-5. 2 normal Not Available [facility] ([facility]) [address] [place], [address], 09/04/2024 11:15:21 08/15/20 24 08/16/2024 COMP. METAB OLIC PANEL (14) chloride 105 mmol/ L 96-106 normal Not Available [facility] ([facility]) [address] [place], [address], 09/04/2024 11:15:21 08/15/20 24 08/16/2024 COMP. METAB OLIC PANEL (14) carbon dioxide, total 24 mmol/ L 20-29 normal Not Available [facility] ([facility]) [address] [place], [address], 09/04/2024 11:15:21 08/15/20 24 08/16/2024 COMP. METAB OLIC PANEL (14) calcium 9.3 mg/dL 8.7-10 .2 normal Not Available [facility] ([facility]) [address] [place], [address], 09/04/2024 11:15:21 08/15/20 24 08/16/2024 COMP. METAB OLIC PANEL (14) protein, total 6.5 g/dL 6.0-8. 5 normal Not Available [facility] ([facility]) [address] [place], [address], 09/04/2024 11:15:21 08/15/20 24 08/16/2024 COMP. METAB OLIC PANEL (14) albumin 4.3 g/dL 3.8-4. 9 normal Not Available [facility] ([facility]) [address] [place], [address], 09/04/2024 11:15:21 08/15/20 24 08/16/2024 COMP. METAB OLIC PANEL (14) globulin, total 2.2 g/dL 1.5-4. 5 Not Available [facility] ([facility]) [address] [place], [address], 09/04/2024 11:15:21 08/15/20 24 08/16/2024 COMP. METAB OLIC PANEL (14) bilirubin, total 0.8 mg/dL 0.0-1. 2 normal Not Available [facility] ([facility]) [address] [place], [address], 09/04/2024 11:15:21 08/15/20 24 08/16/2024 COMP. METAB OLIC PANEL (14) alkaline phosphatase 136 IU/L 44-121 above high normal Not Available [facility] ([facility]) [address] [place], [address], 09/04/2024 11:15:21 08/15/20 24 08/16/2024 COMP. METAB OLIC PANEL (14) AST (SGOT) 25 IU/L 0-40 normal Not Available [facility] ([facility]) [address] [place], [address], 09/04/2024 11:15:21 08/15/20 24 08/16/2024 COMP. METAB OLIC PANEL (14) ALT (SGPT) 18 IU/L 0-44 normal Not Available [facility] ([facility]) [address] [place], [address], 09/04/2024 11:15:21 08/15/20 24 08/16/2024 LIPID PANEL cholesterol, total 132 mg/dL 100-19 9 normal Not Available [facility] ([facility]) [address] [place], [address], 09/04/2024 11:15:22 08/15/20 24 08/16/2024 LIPID PANEL triglyceride s 89 mg/dL 0-149 normal Not Available [facility] ([facility]) [address] [facility] [place], [address], 09/04/2024 11:15:22 08/15/20 24 08/16/2024 LIPID PANEL HDL cholesterol 49 mg/dL >39 normal Not Available [facility] ([facility]) [address] [place], [address], 09/04/2024 11:15:22 08/15/20 24 08/16/2024 LIPID PANEL VLDL cholesterol arturo 17 mg/dL 5-40 Not Available [facility] ([facility]) [address] [place], [address], 09/04/2024 11:15:22 08/15/20 24 08/16/2024 LIPID PANEL LDL chol calc ([facility]) 66 mg/dL 0-99 Not Available [facility] ([facility]) [address] [facility], [place], [address], 09/04/2024 11:15:22 08/15/20 24 08/16/2024 LIPID PANEL LDL calc comment: GUEST SERVICE REPRESENTATIVE Not Available [facility] ([facility]) [address] [facility], [place], [address], 09/04/2024 11:15:22 08/15/20 24 08/20/2024 PHOSP HATID YLETH ANOL (PETH ) phosphatidyl ethanol NEGATI VE Not Available [facility] ([facility]) [address] [facility], [place], [address], 09/04/2024 11:15:23 08/15/20 24 08/20/2024 PHOSP HATID YLETH ANOL (PETH ) phosphatidyl ethanol (peth) NEGATI VE NG/mL Geovany zed compo und: PEth 16:0/ 18:1. 1-pal mitoy l-2-o leoyl -sn-g lycer o-3-p hosph oetha nol. Geovany sis perfo rmed by Liqui d Chrom atogr aphy with Tande m Mass Spect romet ry (LC/M S/MS) . Detec tion limit : 20 ng/mL PEth level s in exces s of 20 ng/mL are consi dered evide nce of moder ate to heavy gilbert ol consu mptio n. Howev er, the Cente r for Subst ance Abuse Treat ment ([facility] ) advis es cauti on in inter preta tion and use of bioma rkers alone to asses s alcoh ol use. Resul shereen harris d be inter prete d in the raffy xt of all avail able clini arturo and behav ioral infor matio n. Refer ence: Subst ance Abuse and Menta l Healt h Servi tru Admin istra tion (2011 ). The Role of Bioma rkers in the Treat ment of Alcoh ol Use Disor ders , 2012 Chaim ion. Advis Agata smith e 11, Issue 2. This test was kim meza and its perfo tiffanie e becky young stics deter mined by [facility]. It has not been clear ed or appro caity by the Food and Drug Admin istra tion. Not Available [facility] ([facility]) [address] [facility], [place], [address], 09/04/2024 11:15:23 08/15/20 24 08/16/2024 CAMPOS+L IPASE amylase 113 U/L 31-110 above high normal Not Available [facility] ([facility]) [address] [place], [address], 09/04/2024 11:15:24 08/15/20 24 08/16/2024 CAMPOS+L IPASE lipase 24 U/L 13-78 normal Not Available [facility] ([facility]) [address] [facility], [place], [address], 09/04/2024 11:15:24 08/15/20 24 09/04/2024 7ALPH AC4 [id number] 46 NG/mL Refer ence Inter farrah: 1.8-5 7 ng/mL Serum 7Alph aC4 is a surro gate for stool bile acids . [place] jose guadalupe holley ntrat ions (> 57 ng/mL ) are assoc iated with a highe r proba bilit y of exces s colon ic bile acids as the cause of diarr hea which usual ly respo nds to bile acid seque stran ts. Bile acid diarr hea may still occur in the setti ng of lower 7Alph aC4 holley ntrat ions. Serum 7Alph aC4 level s, <15 ng/mL and >48 ng/mL , have been repor jose guadalupe to have a negat farnaz predi ctive value of 85% and a posit farnaz predi ctive value of 82%, respe ctive ly, for bile acid diarr hea. Chrissy barillas JRF. Am J Gastr oente rol. 2020; 115(1 2):19 74-19 75 This test was devadonya oped and its perfo rmanc e becky cteri stics deter mined by [facility]. It has not been clear ed or appro caity by the Food and Drug Admin istra tion. Not Available [facility] [address] [facility], [place], [address], 09/04/2024 11:15:26 08/15/20 24 08/16/2024 HEMOG LOBIN A1C hemoglobin A1C 7.4 % 4.8-5. 6 above high normal Predi abete s: 5.7 - 6.4 Diabe siobhan: >6.4 Glyce gilma contr ol for adult s with diabe siobhan: <7.0 Not Available [facility] ([facility]) [address] [facility], [place], [address], 09/04/2024 11:15:27 08/15/20 24 08/16/2024 SEDIM ENTAT ION RATE- WESTE RGREN sedimentatio n rate-westerg lori 8 mm/HR 0-30 normal Not Available [facility] ([facility]) [address] [facility], [place], [address], 09/04/2024 11:15:28 08/15/20 24 08/17/2024 CALCI UM, IONIZ ED, SERUM calcium, ionized, serum 5.0 mg/dL 4.5-5. 6 Not Available [facility] ([facility]) [address] [facility], [place], [address], 09/04/2024 11:15:29 08/15/20 24 08/16/2024 IGG, SUBCL ASS 4 IgG, subclass 4 17 mg/dL 2-96 Not Available [facility] ([facility]) [address] [place], [address], 09/04/2024 11:15:30 08/15/20 24 08/16/2024 C-SOHA CTIVE PROTE IN, QUANT C-reactive protein, quant 32 mg/L 0-10 above high normal Not Available [facility] ([facility]) [address] [place], [address], 09/04/2024 11:15:31 08/15/20 24 08/16/2024 SPECI MEN STATU S REPOR T specimen status report TNP Test not perfo rmed. No stool speci men recei caity. TEST: [id number] Calpr otect in, Fecal 35446 6 Fecal Fat,Q l (Rfx- Qt) Stool [id number] 4 H. pylor i Stool Ag, EIA 58600 3 Ova + Dennis ite Exam [id number] 4 Pancr eatic Elast ase, Fecal Not Available [facility] ([facility]) [address] [place], [address], 09/04/2024 11:15:32 08/19/20 24 08/22/2024 GI PROFI LE, STOOL , PCR campylobacte r Not Detect ed not detect ed Not Available [facility] ([facility]) [address] [place], [address], 08/22/2024 16:14:29 08/19/20 24 08/22/2024 GI PROFI LE, STOOL , PCR C difficile toxin A/B Detect ed not detect ed abnormal Not Available [facility] ([facility]) [address] [place], [address], 08/22/2024 16:14:29 08/19/20 24 08/22/2024 GI PROFI LE, STOOL , PCR plesiomonas shigelloides Not Detect ed not detect ed Not Available [facility] ([facility]) [address] [place], [address], 08/22/2024 16:14:29 08/19/20 24 08/22/2024 GI PROFI LE, STOOL , PCR salmonella Not Detect ed not detect ed Not Available [facility] ([facility]) [address] [place], [address], 08/22/2024 16:14:29 08/19/20 24 08/22/2024 GI PROFI LE, STOOL , PCR vibrio Not Detect ed not detect ed Not Available [facility] ([facility]) [address] [place], [address], 08/22/2024 16:14:29 08/19/20 24 08/22/2024 GI PROFI LE, STOOL , PCR vibrio cholerae Not Detect ed not detect ed Not Available [facility] ([facility]) [address] [place], [address], 08/22/2024 16:14:29 08/19/20 24 08/22/2024 GI PROFI LE, STOOL , PCR yersinia enterocoliti ca Not Detect ed not detect ed Not Available [facility] ([facility]) [address] [place], [address], 08/22/2024 16:14:29 08/19/20 24 08/22/2024 GI PROFI LE, STOOL , PCR enteroaggreg ative E coli Not Detect ed not detect ed Not Available [facility] ([facility]) [address] [place], [address], 08/22/2024 16:14:29 08/19/20 24 08/22/2024 GI PROFI LE, STOOL , PCR enteropathog enic E coli Not Detect ed not detect ed Not Available [facility] ([facility]) [address] [place], [address], 08/22/2024 16:14:29 08/19/20 24 08/22/2024 GI PROFI LE, STOOL , PCR enterotoxige gabe E coli Not Detect ed not detect ed Not Available [facility] ([facility]) [address] [place], [address], 08/22/2024 16:14:29 08/19/20 24 08/22/2024 GI PROFI LE, STOOL , PCR shiga-toxin- producing E coli Not Detect ed not detect ed Not Available [facility] ([facility]) [address] [facility], [place], [address], 08/22/2024 16:14:29 08/19/20 24 08/22/2024 GI PROFI LE, STOOL , PCR E coli O157 Not applic able not detect ed Not Available [facility] ([facility]) [address] [facility], [place], [address], 08/22/2024 16:14:29 08/19/20 24 08/22/2024 GI PROFI LE, STOOL , PCR shigella/ent eroinvasive E coli Not Detect ed not detect ed Not Available [facility] ([facility]) [address] [place], [address], 08/22/2024 16:14:29 08/19/20 24 08/22/2024 GI PROFI LE, STOOL , PCR cryptosporid ium Not Detect ed not detect ed Not Available [facility] ([facility]) [address] [place], [address], 08/22/2024 16:14:29 08/19/20 24 08/22/2024 GI PROFI LE, STOOL , PCR cyclospora cayetanensis Not Detect ed not detect ed Not Available [facility] ([facility]) [address] [place], [address], 08/22/2024 16:14:29 08/19/20 24 08/22/2024 GI PROFI LE, STOOL , PCR entamoeba histolytica Not Detect ed not detect ed Not Available [facility] ([facility]) [address] [place], [address], 08/22/2024 16:14:29 08/19/20 24 08/22/2024 GI PROFI LE, STOOL , PCR giardia lamblia Not Detect ed not detect ed Not Available [facility] ([facility]) [address] [place], [address], 08/22/2024 16:14:29 08/19/20 24 08/22/2024 GI PROFI LE, STOOL , PCR adenovirus F 40/41 Not Detect ed not detect ed Not Available [facility] ([facility]) [address] [facility], [place], [address], 08/22/2024 16:14:29 08/19/20 24 08/22/2024 GI PROFI LE, STOOL , PCR astrovirus Not Detect ed not detect ed Not Available [facility] ([facility]) [address] [facility], [place], [address], 08/22/2024 16:14:29 08/19/20 24 08/22/2024 GI PROFI LE, STOOL , PCR norovirus GI/gii Detect ed not detect ed abnormal Not Available [facility] ([facility]) [address] [facility], [place], [address], 08/22/2024 16:14:29 08/19/20 24 08/22/2024 GI PROFI LE, STOOL , PCR rotavirus A Not Detect ed not detect ed Not Available [facility] ([facility]) [address] [facility], [place], [address], 08/22/2024 16:14:29 08/19/20 24 08/22/2024 GI PROFI LE, STOOL , PCR sapovirus Not Detect ed not detect ed Not Available [facility] ([facility]) [address] [facility], [place], [address], 08/22/2024 16:14:29 08/19/20 24 08/20/2024 JACQUELINE EN AUTHO RIZAT ION written authorizatio n Commen t Jacqueline en Autho rizat ion Recei caity. Autho rizat ion recei caity from ORIGI NAL ORDER 08-20 Logge d by Roseanne fuentes Not Available [facility] ([facility]) [address] [facility], [place], [address], 08/22/2024 16:14:30 08/19/20 24 08/22/2024 FECAL FAT,Q L (RFX- QT) STOOL fats, neutral NORMAL Sandee l (<60 Dropl ets/H PF) Not Available [facility] ([facility]) [address] [facility], [place], [address], 08/29/2024 07:16:55 08/19/20 24 08/22/2024 FECAL FAT,Q L (RFX- QT) STOOL fats, total NORMAL Sandee l (<100 Dropl ets/H PF) Not Available [facility] ([facility]) [address] [facility], [place], [address], 08/29/2024 07:16:55 08/19/20 24 08/21/2024 CALPR OTECT IN, FECAL calprotectin , fecal 54 ug/g 0-120 Holley ntrat ion Inter preta tion Follo w-Up < 5 - 50 ug/g Sandee l None >50 -120 ug/g Borde rline Re-ev aluat e in 4-6 weeks >120 ug/g Abnor mal Repea t as clini roni indic ated Not Available [facility] ([facility]) [address] [facility], [place], [address], 08/29/2024 07:16:57 08/19/20 24 08/21/2024 PANCR EATIC ELAST ASE, FECAL pancreatic elastase, fecal >800 ug_el ast./ g >200 Sever e Pancr eatic Insuf ficie ncy: <100 Moder ate Pancr eatic Insuf ficie ncy: 100 - 200 Sandee l: >200 Not Available [facility] ([facility]) [address] [facility], [place], [address], 08/29/2024 07:16:58 08/19/20 24 08/28/2024 OVA + DENNIS ITE EXAM ova + parasite exam FINAL REPORT These resul ts were obtai hanh using wet prepa ratio n(s) and trich oliver stain ed smear . This test does not inclu de testi ng for Crypt ospor idium parvu m, Cyclo spora , or Micro spori tracy. Not Available [facility] ([facility]) [address] [facility], [place], [address], 08/29/2024 07:16:59 08/19/20 24 08/28/2024 OVA + DENNIS ITE EXAM result 1 COMMEN T No ova, cysts , or dennis ites seen. One negat farnaz speci men does not rule out the possi bilit y of a dennis itic infec tion. Not Available [facility] ([facility]) [address] [facility], [place], [address], 08/29/2024 07:16:59 09/25/2009/25/2024 GASTR OINTE ELISABET L PANEL ,STL PCR campylobacte r NOT DETECT ED not detect ed CAMPY LOBAC TER AND CRYPT OSPOR IDIUM RESUL TS WILL BE CONFI RMED BEFOR E FINAL RESUL TS REPOR JOSE GUADALUPE. Not Available [facility] ([facility]) [address] [facility], [place], [address], 09/25/2024 15:27:36 09/25/20 24 09/25/2024 GASTR OINTE ELISABET L PANEL ,STL PCR C difficile toxin A/B DETECT ED not detect ed delta Not Available [facility] ([facility]) [address] [facility], [place], [address], 09/25/2024 15:27:36 09/25/20 24 09/25/2024 GASTR OINTE ELISABET L PANEL ,STL PCR plesiomonas shigelloides NOT DETECT ED not detect ed Not Available [facility] ([facility]) [address] [facility], [place], [address], 09/25/2024 15:27:36 09/25/20 24 09/25/2024 GASTR OINTE ELISABET L PANEL ,STL PCR salmonella NOT DETECT ED not detect ed Not Available [facility] ([facility]) [address] [facility], [place], [address], 09/25/2024 15:27:36 09/25/20 24 09/25/2024 GASTR OINTE ELISABET L PANEL ,STL PCR vibrio NOT DETECT ED not detect ed Not Available [facility] ([facility]) [address] [facility], [place], [address], 09/25/2024 15:27:36 09/25/20 24 09/25/2024 GASTR OINTE ELISABET L PANEL ,STL PCR vibrio cholerae NOT DETECT ED not detect ed Not Available [facility] ([facility]) [address] [facility], [place], [address], 09/25/2024 15:27:36 09/25/20 24 09/25/2024 GASTR OINTE ELISABET L PANEL ,STL PCR yersinia enterocoliti ca NOT DETECT ED not detect ed Not Available [facility] ([facility]) [address] [facility], [place], [address], 09/25/2024 15:27:36 09/25/20 24 09/25/2024 GASTR OINTE ELISABET L PANEL ,STL PCR enteroaggreg ative E coli NOT DETECT ED not detect ed Not Available [facility] ([facility]) [address] [facility], [place], [address], 09/25/2024 15:27:36 09/25/20 24 09/25/2024 GASTR OINTE ELISABET L PANEL ,STL PCR enteropathog enic E coli NOT DETECT ED not detect ed Not Available [facility] ([facility]) [address] [facility], [place], [address], 09/25/2024 15:27:36 09/25/20 24 09/25/2024 GASTR OINTE ELISABET L PANEL ,STL PCR enterotoxige gabe E coli lt/st NOT DETECT ED not detect ed Not Available [facility] ([facility]) [address] [facility], [place], [address], 09/25/2024 15:27:36 09/25/20 24 09/25/2024 GASTR OINTE ELISABET L PANEL ,STL PCR shiga-toxin- producing E coli NOT DETECT ED not detect ed Not Available [facility] ([facility]) [address] [facility], [place], [address], 09/25/2024 15:27:36 09/25/20 24 09/25/2024 GASTR OINTE ELISABET L PANEL ,STL PCR E coli O157 N/A not detect ed Not Available [facility] ([facility]) [address] [facility], [place], [address], 09/25/2024 15:27:36 09/25/20 24 09/25/2024 GASTR OINTE ELISABET L PANEL ,STL PCR shigella/ent eroinvasive E coli NOT DETECT ED not detect ed Not Available [facility] ([facility]) [address] [facility], [place], [address], 09/25/2024 15:27:36 09/25/20 24 09/25/2024 GASTR OINTE ELISABET L PANEL ,STL PCR cryptosporid ium NOT DETECT ED not detect ed Not Available [facility] ([facility]) [address] [facility], [place], [address], 09/25/2024 15:27:36 09/25/20 24 09/25/2024 GASTR OINTE ELISABET L PANEL ,STL PCR cyclospora cayetanensis NOT DETECT ED not detect ed Not Available [facility] ([facility]) [address] [place], [address], 09/25/2024 15:27:36 09/25/20 24 09/25/2024 GASTR OINTE ELISABET L PANEL ,STL PCR entamoeba histolytica NOT DETECT ED not detect ed Not Available [facility] ([facility]) [address] [facility], [place], [address], 09/25/2024 15:27:36 09/25/20 24 09/25/2024 GASTR OINTE ELISABET L PANEL ,STL PCR giardia lamblia NOT DETECT ED not detect ed Not Available [facility] ([facility]) [address] [facility], [place], [address], 09/25/2024 15:27:36 09/25/20 24 09/25/2024 GASTR OINTE ELISABET L PANEL ,STL PCR adenovirus F 40/41 NOT DETECT ED not detect ed Not Available [facility] ([facility]) [address] [facility], [place], [address], 09/25/2024 15:27:36 09/25/20 24 09/25/2024 GASTR OINTE ELISABET L PANEL ,STL PCR astrovirus NOT DETECT ED not detect ed Not Available [facility] ([facility]) [address] [facility], [place], [address], 09/25/2024 15:27:36 09/25/20 24 09/25/2024 GASTR OINTE ELISABET L PANEL ,STL PCR norovirus GI/gii NOT DETECT ED not detect ed Not Available [facility] ([facility]) [address] [facility], [place], [address], 09/25/2024 15:27:36 09/25/20 24 09/25/2024 GASTR OINTE ELISABET L PANEL ,STL PCR rotavirus A NOT DETECT ED not detect ed Not Available [facility] ([facility]) [address] [facility], [place], [address], 09/25/2024 15:27:36 09/25/20 24 09/25/2024 GASTR OINTE ELISABET L PANEL ,STL PCR sapovirus NOT DETECT ED not detect ed Test Metho d Limit ation s: This assay does not disti nguis h betwe en viabl e and non-v iable organ isms/ This test does not deter mine antib iotic susce ptibi litie s. The use of forme d or conta minat ed stool sampl es are not recom jimbo d. Jhon eous resul ts may occur from impro per speci men colle ction , handl ing or stora ge, prese nce of inhib itors , prese nce of seque nce varia nts in the gene targe ts of the assay , techn ical error s or sampl e mix-u p. Posit farnaz C.dif ficil e resul ts may not be clini roni relev ant in child lori under the age of two. Consu ltati on with an Infec tious Disea se Pedia trici an is recom jimbo d. Test Metho dolog y: BioFi re FilmA rray GI Panel - Melti ng curve geovany sis, PCR, multi plex, rever se trans cript ase Not Available [facility] ([facility]) [address] [facility], [place], [address], 09/25/2024 15:27:36 09/25/20 24 09/25/2024 C DIFFI CILE TOX/A G SCREE N specimen consistency LIQUID STOOL Not Available [facility] ([facility]) [address] [facility], [place], [address], 09/25/2024 15:28:43 09/25/20 24 09/25/2024 C DIFFI CILE TOX/A G SCREE N C difficile toxins A NEGATI VE negati ve IN TERPR ETATI ON The rapid scree n test is inten ded for sympt omati c patie nts. It detec ts the Clost ridiu m toxin as well as the commo n antig en expre ssed by all strai ns of Clost ridiu m diffi cile. The C. diffi cile toxin A or B must be posit farnaz to confi rm C. diffi cile assoc iated disea se. Sympt omati c patie nts with a posit farnaz angti gen and negat farnaz toxin may still have clini roni signi fican t disea se which can be confi rmed by smear for fecal leuko cytes or PCR testi ng. Not Available [facility] ([facility]) [address] [facility], [place], [address], 09/25/2024 15:28:43 09/25/20 24 09/25/2024 C DIFFI CILE TOX/A G SCREE N C.difficile antigen NEGATI VE negati ve Not Available [facility] ([facility]) [address] [facility], [place], [address], 09/25/2024 15:28:43 09/25/20 24 09/25/2024 C DIFFI CILE TOX/A G SCREE N C diff internal control PASS PASS Not Available [facility] ([facility]) [address] [facility], [place], [address], 09/25/2024 15:28:43 09/25/20 24 10/03/2024 PATHO LOGY SPECI MEN pathology specimen SEE JEROME Castillo RPT Not Available [facility] ([facility]) [address] [facility], [place], [address], 10/03/2024 09:18:07 Result Notes None recorded. Problems Name Problem SNOMED Code Status Onset Date Resolution Date Notes Provider Name and Address Organization Details Recorded Time Allergic rhinitis 27663565 Active 2016 Allergic rhinitis Not Available [facility] 3 08:18:40 Dyspnea 034553937 Active 2016 Not Available [facility] 3 08:18:40 Cough 99463120 Active 2016 Cough Not Available [facility] 3 08:18:40 Chronic constipat ion with overflow 37483430 Active 2016 Overflow diarrhea Not Available [facility] 3 08:18:40 Cervical spondylos is without myelopath y 936707506 Active 2020 Not Available [facility] 3 08:18:40 Heartburn 95168714 Active 2017 Heartburn Not Available [facility] 3 08:18:40 Restricti ve lung disease 57307293 Active 2016 Not Available [facility] 3 08:18:40 Cerebrova scular accident 934465659 Active 2014 Stroke Not Available [facility] 3 08:18:40 Finding reported by subject or history provider 510359827 Active 2014 Not Available [facility] 3 08:18:40 Paresthes ia 69854769 Active 2020 Not Available [facility] 3 08:18:40 Abdominal pain 07243149 Active 2017 Abdominal pain Not Available [facility] 3 08:18:40 Gastroeso phageal reflux disease 940000502 Active 2016 Gastroeso phageal reflux disease Not Available [facility] 3 08:18:40 Irritable bowel syndrome 33600876 Active 2017 Irritable bowel syndrome Not Available [facility] 3 08:18:40 Asthma 487388256 Active 2016 Asthma Not Available [facility] 3 08:18:40 Diarrhea 42823118 Active 2016 Diarrhea Not Available [facility] 3 08:18:40 Constipat ion 83228944 Active 2016 Constipat ion Not Available [facility] 3 08:18:40 Neuralgia 12102621 Active [address], [place], [address] , [place] - [facility] [place] 3 08:49:54 Left foot drop 03308217841 9105 Active [address], [place], [address] , [place] - [facility] [place] 3 08:49:58 Forgetful 02227587 Active [address], [place], [address] , [place] [facility] [place] 3 11:24:50 Irritable bowel syndrome with diarrhea 168307191 Active 2022 Earlene Kamara NP [address], [address], [place], [address] , [place] [facility] [place] 3 15:53:25 Essential tremor 195223787 Active [address], [place], [address] , [place] [facility] [place] 4 09:58:42 Problem Notes None recorded. Procedures Surgical History Date Name Laterality Status Provider Name and Address Organization Details Recorded Time 01/14/20 25 lumbar spinal fusion completed Khushi Kapoor [place] - [facility] [place] [facility] [place] 01/14/2025 13:17:57 08/15/20 24 Procedure Note completed Khushi Kapoor [place] [facility] [place] [facility] [place] 08/15/2024 11:59:29 11/27/19 24 Cardiovascular Surgery completed Prema ERAZO [facility] [place] 06/25/2024 13:58:00 07/07/20 23 placement of stent in coronary artery completed Earlene Kamara NP [address], [address], [place], [address], [place] [facility] [place] 07/13/2023 16:02:11 11/27/19 23 Cardiovascular Surgery completed Prema ERAZO - [facility] [place] 06/25/2024 13:58:00 06/27/20 17 colonoscopy completed DO [address], [place], [address], [place] [facility] [place] 01/23/2023 08:43:26 08/27/20 16 operation on lumbar spine completed DO [address], [place], [address], [place] [facility] [place] 01/23/2023 08:44:23 09/27/20 14 herniotomy of bilateral inguinal hernias completed Georgina Marshall [address], [place], [address], [place] [facility] - [place] [facility] [place] 01/23/2023 08:42:59 02/26/20 14 placement of stent in coronary artery completed Georgina DO Rolando [address], [place], [address], [place] [facility] [place] [facility] [place] 01/23/2023 08:43:13 11/27/19 14 Back Surgery completed Prema Dominguez [place] - [facility] [place] 06/25/2024 13:43:45 11/27/19 13 Cholecystectomy completed Georgina DO Rolando [address], [place], [address], [place] [facility] [place] 01/23/2023 08:42:23 11/27/19 12 arthroplasty of knee completed Georgina Marshall DO [address], [place], [address], [place] [facility] - [place] [facility] [place] 01/23/2023 08:42:13 11/27/19 10 Elbow arthroscopy completed Georginalay Marshall DO [address], [place], [address], [place] [facility] [place] [facility] [place] 01/23/2023 08:42:40 EGD/Endoscopy completed Earlene Kamara NP [address], [address], [place], [address], [place] [facility] [place] 07/13/2023 16:02:36 Imaging Results None recorded. Procedure Notes None recorded. Medical Equipment None Reported. Allergies Allergen ID Allergen Name Allergen Category Reaction Reaction Severity Criticality Documentation Date Start Date Code Code System Note Provider Name and Address Organization Details Recorded Time 32112 Penicilli n Not available Not available Not available Not available 08/29/2022 28203 RxNorm React ion: Unkno wn, sever ity: Unkno wn Not Available [employer] 02:56:23 [id number] Product containin g penicilli n (product) medicatio n Not available Not available Not available 01/23/2023 [id number] SNOMED Agnes jansen [place] - [place] - [place] & [place] 3 10:57:42 Medications Name Sig Start Date Stop Date Status Note LastModified by Organization Details LastModified Time id now influenza a & b 2 test kit TEST DIRECTED TODAY 01/23 completed Not Available Not Available Not Available atorvastati n 40 mg tablet TAKE 1 TABLET BY MOUTH EVERY NIGHT AT BEDTIME active Not Available Not Available No t Available metformin 500 mg tablet 1 tablet with meals Orally Twice a day 01/23 completed Not Available Not Available Not Available primidone 50 mg tablet TAKE 1 TABLET BY MOUTH EVERY DAY FOR 30 DAYS active Not Available Not Available No t Available promethazin e-DM 6.25 mg-15 mg/5 mL oral syrup TAKE 5 MILLILITE RS BY MOUTH EVERY 6 HOURS NEEDED FOR COUGH CAUTION SEDATION 03/01 completed Not Available Not Available Not Available atorvastati n 80 mg tablet TAKE 1 TABLET BY MOUTH ONCE DAILY AT BEDTIME active Not Available Not Available No t Available clonidine HCl 0.1 mg tablet TAKE 1 TABLET BY MOUTH 2 (TWO) TIMES A DAY NEEDED FOR HIGH BLOOD PRESSURE (SEVERE HYPERTENS ION). 03/01 completed Not Available Not Available Not Available azithromyci n 250 mg tablet TAKE 2 TABLETS BY MOUTH TODAY, THEN TAKE 1 TABLET DAILY FOR 4 DAYS 03/01 completed Not Available Not Available Not Available tizanidine 4 mg tablet TAKE 1 TABLET BY MOUTH EVERY 6 HOURS active Not Available Not Available No t Available hydrocodone 5 mg-acetamin ophen 325 mg tablet TAKE 1 TABLET BY MOUTH EVERY 4 TO 6 HOURS 03/01 completed Not Available Not Available Not Available sucralfate 100 mg/mL oral suspension TAKE 10 ML 4 TIMES A DAY BY ORAL ROUTE FOR 30 DAYS, FOR ABDOMINAL PAIN. 2024 active Not Available Not Available Not Avai lable meloxicam 15 mg tablet TAKE 1 TABLET BY MOUTH ONCE DAILY active Not Available Not Available No t Available prednisone 20 mg tablet TAKE 2 TABLETS DAILY FOR 4 DAYS, 1 DAILY FOR 4 DAYS, THEN 1/2 DAILY FOR 4 DAYS 01/23 completed Not Available Not Available Not Available sertraline 100 mg tablet TAKE 2 TABLETS BY MOUTH ONCE DAILY active Not Available Not Available No t Available midodrine 5 mg tablet TAKE 1 TABLET BY MOUTH THREE TIMES DAILY DO NOT GIVE LAST DOSE OF DAY AFTER 6 P.M. OR WITHIN 4 HOURS OF BEDTIME active Not Available Not Available No t Available amlodipine 2.5 mg tablet TAKE 1 TABLET BY MOUTH ONCE DAILY active Not Available Not Available No t Available amlodipine 5 mg tablet TAKE 1 TABLET BY MOUTH ONCE DAILY active Not Available Not Available No t Available sulfamethox azole 800 mg-trimetho prim 160 mg tablet 01/23 completed Not Available Not Available Not Available aspirin 81 mg tablet,lisa yed release TAKE 1 TABLET BY MOUTH EVERY DAY active Not Available Not Available No t Available tramadol 50 mg tablet TAKE 1 TABLET BY MOUTH EVERY 8 HOURS active Not Available Not Available No t Available vancomycin 125 mg capsule Take by oral route for 10 days. 2023 active Not Available Not Available Not Avai lable bisoprolol fumarate 5 mg tablet TAKE 1 TABLET BY MOUTH EVERY DAY active Not Available Not Available No t Available oxycodone-a cetaminophe n 5 mg-325 mg tablet TAKE 1 TABLET BY MOUTH EVERY 6 HOURS NEEDED FOR PAIN active Not Available Not Available No t Available linezolid 600 mg tablet TAKE 1 TABLET BY MOUTH EVERY 12 HOURS 01/23 completed Not Available Not Available Not Available Humalog U-100 Insulin 100 unit/mL subcutaneou s solution USE UP TO 125 UNITS VIA INSULIN PUMP DAILY active Not Available Not Available No t Available pantoprazol e 40 mg tablet,lisa yed release Take 1 tablet every day by oral route as directed for 30 days, for acid reflux. 2023 active Not Available Not Available Not Avai lable ferrous sulfate 325 mg (65 mg iron) tablet TAKE 1 TABLET BY MOUTH EVERY DAY WITH BREAKFAST 01/23 completed Not Available Not Available Not Available promethazin e 25 mg tablet TAKE 1/2 TO 1 (ONE-HALF TO ONE) TABLET BY MOUTH EVERY 6 HOURS NEEDED FOR NAUSEA AND FOR VOMITING active Not Available Not Available No t Available losartan 25 mg tablet 08/15 completed Not Available Not Available Not Available bupropion HCl 75 mg tablet active Not Available Not Available Not Available nitroglycer in 0.[address] 1 TABLET UNDER TONGUE EVERY 5 MINS, UP TO 3 DOSES NEEDED FOR CHEST PAIN 06/24 completed Not Available Not Available Not Available gabapentin 300 mg capsule TAKE 1 CAPSULE BY MOUTH THREE TIMES DAILY active Not Available Not Available No t Available aspirin 81 mg chewable tablet 1 tablet Orally Once a day for 30 day(s) 06/24 completed Not Available Not Available Not Available diclofenac sodium 75 mg tablet,lisa yed release TAKE 1 TABLET BY MOUTH TWICE A DAY FOR 30 DAYS (QUANTITY 60) 01/23 completed Not Available Not Available Not Available montelukast 10 mg tablet TAKE 1 TABLET BY MOUTH EVERY DAY EVERY EVENING 03/01 completed Not Available Not Available Not Available ammonium lactate 12 % topical cream APPLY TO AFFECTED AREA TWICE A DAY 01/23 completed Not Available Not Available Not Available mupirocin 2 % topical ointment 01/23 completed Not Available Not Available Not Available Novolog U-100 Insulin aspart 100 unit/mL subcutaneou s solution USE WITH INSULIN PUMP DIRECTED UP TO 125 UNITS DAILY 06/24 completed Not Available Not Available Not Available cefdinir 300 mg capsule 03/01 completed Not Available Not Available Not Available metformin ER 500 mg tablet,exte nded release 24 hr TAKE 1 TABLET BY MOUTH TWICE DAILY WITH MEALS active Not Available Not Available No t Available colestipol 1 gram tablet take 2 tablets in the morning and 2 tablets at night daily active Not Available Not Available No t Available naproxen 500 mg tablet TAKE 1 TABLET BY MOUTH TWICE DAILY 06/24 completed Not Available Not Available Not Available metoprolol tartrate 25 mg tablet TAKE 1 TABLET BY MOUTH EVERY 12 HOURS 03/01 completed Not Available Not Available Not Available sodium,pota ssium,mag sulfates 17.5 gram-3.13 gram-1.6 gram oral soln Take 6 ounces twice a day by oral route as directed for 1 day, for colonosco py prep. active Not Available Not Available No t Available Dificid 200 mg tablet TAKE 1 TABLET BY MOUTH EVERY 12 HOURS FOR 10 DAYS active Not Available Not Available No t Available Brilinta 90 mg tablet TAKE 1 TABLET BY MOUTH TWICE DAILY active Not Available Not Available No t Available magnesium 400 mg (as magnesium oxide) capsule 03/01 completed Not Available Not Available Not Available Jardiance 10 mg tablet TAKE 1 TABLET BY MOUTH ONCE DAILY active Not Available Not Available No t Available Jardiance 25 mg tablet TAKE 1 TABLET BY MOUTH EVERY DAY 01/23 completed Not Available Not Available Not Available Ozempic 0.25 mg or 0.5 mg (2 mg/1.5 mL) subcutaneou s pen injector INJECT 0.25MG SUBCUTANE OUSLY ONCE WEEKLY FOR 4 WEEKS, THEN INCREASE TO 0.5MG WEEKLY 03/01 completed Not Available Not Available Not Available Dexcom G6 Seam Taper Machine 1 DEVICE CONTINUOU S. 01/23 completed Not Available Not Available Not Available Dexcom G6 Transmitter device USE DIRECTED AND CHANGE EVERY 3 MONTHS active Not Available Not Available No t Available FreeStyle Florian 14 Day Sensor kit USE 1 EVERY 14 DAYS DIRECTED 01/23 completed Not Available Not Available Not Available Novolin N FlexPen 100 unit/mL (3 mL) subcutaneou s insulin pen as directed Subcutane ous 01/23 completed Not Available Not Available Not Available ID NOW COVID-19 Test Kit TEST DIRECTED TODAY 01/23 completed Not Available Not Available Not Available Ozempic 1 mg/dose (4 mg/3 mL) subcutaneou s pen injector INJECT 1 MG UNDER THE SKIN ONCE WEEKLY DIRECTED 06/24 completed Not Available Not Available Not Available Dexcom G7 Sensor device USE 1 SENSOR EVERY 10 DAYS. APPOINTME NT REQUIRED FOR FUTURE REFILLS active Not Available Not Available No t Available Vitals Date Recorded Body height Body mass index (BMI) Body weight Systolic blood pressure Diastolic blood pressure Provider Name and Address Organization Details Last Updated DateTime 03/01/2024 187.96 cm 29.9 kg/m2 528058.0 2 g 128 mm[Hg] 78 mm[Hg] Agnes Holman [facility] & [place] 4 09:40:37 Date Recorded Body height Body mass index (BMI) Body weight Body temperature Oxygen saturation Oxygen saturation in Arterial blood by Pulse oximetry Heart rate Provider Name and Address Organization Details Last Updated DateTime 4 187.96 cm 29.9 kg/m2 468833. 02 g 97.4 [degF] 97 % 97 % 76 /min Prema Dominguez [facility] & [place] 4 13:57:45 Date Recorded Body height Body mass index (BMI) Body weight Body temperature Oxygen saturation Oxygen saturation in Arterial blood by Pulse oximetry Heart rate Heart rate Systolic blood pressure Diastolic blood pressure Provider Name and Address Organization Details Last Updated DateTime 4 187.96 cm 31.3 kg/m2 762942. 38 g 98.4 [degF] 99 % 99 % 63 /min 68 /min 181 mm[Hg] 97 mm[Hg] Lindaashlee Francesco [facility] & [place] 4 10:20:26 Date Recorded Body height Body mass index (BMI) Body weight Heart rate Heart rate Oxygen saturation Oxygen saturation in Arterial blood by Pulse oximetry Body temperature Systolic blood pressure Diastolic blood pressure Provider Name and Address Organization Details Last Updated DateTime 4 187.96 cm 31.2 kg/m2 171353. 02 g 64 /min 66 /min 97 % 97 % 97.9 [degF] 105 mm[Hg] 66 mm[Hg] [facility] [place] 4 14:07:03 Date Recorded Body height Body mass index (BMI) Body weight Oxygen saturation Oxygen saturation in Arterial blood by Pulse oximetry Body temperature Heart rate Heart rate Systolic blood pressure Diastolic blood pressure Provider Name and Address Organization Details Last Updated DateTime 5 187.96 cm 30.2 kg/m2 429957. 57 g 98 % 98 % 98.1 [degF] 69 /min 72 /min 107 mm[Hg] 65 mm[Hg] [facility] [place] [place] 5 13:17:21 Social History Question Answer Notes LastModified by Organizat ion Details LastModified Time Tobacco Smoking Status Former Smoker Not Available [facility] 01/12/2023 08:18:40 Do You Have An Advance Directive? No [email or web address] Information not available 06/25/2024 What Is Your Level Of Alcohol Consumption? Occasional [email or web address] Information not available 06/25/2024 Are You Blind Or Do You Have Difficulty Seeing? No [email or web address] Information not available 06/25/2024 What Is Your Level Of Caffeine Consumption? Occasional 2 Cups Coffee Information not available 01/23/2023 Are You Currently Employed? Yes [employer] [email or web address] Information not available 01/23/2023 When Did You Quit Smoking? 16+yearssincel luz [email or web address] Information not available 01/23/2023 What Was The Date Of Your Most Recent Tobacco Screening? 07/09/2023 [email or web address] Information not available 06/25/2024 Do You Have Any Pets? No Information not available 01/23/2023 What Is Your Relationship Status? Lives With Spouse, House [email or web address] Information not available 01/23/2023 Are You Sexually Active? Yes Information not available 01/23/2023 At What Age Did You Start Smoking Tobacco? 17 Information not available 01/23/2023 Do You Or Have You Ever Used Smokeless Tobacco? Former Smokeless Tobacco User Information not available 06/25/2024 Do You Feel Stressed (tense, Restless, Nervous, Or Anxious, Or Unable To Sleep At Night)? [id number] [email or web address] Information not available 06/25/2024 Do You Use Any Illicit Or Recreational Drugs? No Information not available 01/23/2023 Are You Currently In School? No Some College Information not available 01/23/2023 Do You Or Have You Ever Used Any Other Forms Of Tobacco Or Nicotine? No [email or web address] Information not available 08/15/2024 Sex: Unknown Functional Status Question Answer Note LastModified by Organizat ion Details LastModified Time Do you have transportation difficulties? No drives Information not available 01/23/2023 Are you able to care for yourself? Yes Information n ot available 01/23/2023 What is your exercise level? Occasional [email or web address] Information not available 06/25/2024 Mental Status None recorded. Family History Relationship Description Onset Age of this Age Resolved Age Notes LastModified by Organization Details LastModified Time Mother Diabetes mellitus [email or web address] Not available 2024 12:55:05 Mother Hypertensive disorder Not available 2022 08:40:08 Mother Kidney disease Not available 2022 08:40:17 Mother Headache Not availabl e 01/23/2023 08:40:26 Father Diabetes mellitus [email or web address] Not available 2024 12:55:05 Father Parkinson's disease [email or web address] Not available 2024 12:55:05 Father Coronary arterioscler osis [email or web address] Not available 2024 12:55:05 Father Disorder of endocrine system pt. added direct ly (07/09) [email or web address] Not available 07/09/2023 14:40:35 Maternal Grandfather Disorder of endocrine system pt. added direct ly (07/09) [email or web address] Not available 07/09/2023 14:40:35 Medical History Condition Response Coronary Artery Disease Y Depression Y TIA Y Spine Problems Y Obstructive Sleep Apnea Y Obesity Y Vision or Eye Problems Y High Cholesterol Y Psychiatric/Mental Health Condition Y Headaches Y Migraines Y GI Problems Y Neurological Problems Y Diabetes Y Hyperlipidemia Y Back Problems Y Heart Disease Y Hypertension Y Past Encounters Encounter ID Performer Location Encounter Start Date Encounter Closed Date Diagnosis/Indication Diagnosis SNOMED-CT Code Diagnosis ICD10 Code Diagnosis Note [id number] [facility] [address] [facility],[address] [place] [address] 01/23/2023 10:25:40 01/23/2023 11:28:47 Cervical spondylosis without myelopathy 438323852 M47.812 Chronic condition that is stable. Continue with gabapentin at the current dose. He does not need refills today. Neuralgia 61060423 M79.2 Chronic condition that is stable. Continue with gabapentin at the current dose. Left foot drop 701029889 1 95934 M21.372 Chronic condition that is stable. No current therapy or equipment needs. Forgetful 16064791 R41.3 New issue with increased lack of focus and concentrat ion. He has poor sleep which I suspect is a major factor. Will check labs today. If normal consider increasing his gabapentin dose to 800mg qhs to see if that will afford him a more restful night. [id number] Earlene Kamara NP [facility] [address] [place] [address] 07/12/2023 14:21:48 07/17/2023 12:16:12 Heartburn 96787010 R12 Occasional symptoms at this time. Diarrhea 64954749 R19.7 Several month history of worsening diarrhea with episodes of urgency and incontinen ce. Incidental ly symptoms have improved over the past several days. Colonoscop y was discussed however he reports recent cardiac stent placed with Dr. Ortega 07/07/23 and continues Brilinta at this time. Colonoscop y was revewied from 06/[address] Calderon which was normal. Consider stool studies if he experience s recurrent symptoms. Also consider trial of Xifaxan. I do not recommend a colonoscop y at this time given recent cardiac history, consider colonoscop y in 1 year. [id number] Georgina Marshall, ZZ [facility] [address] [facility],[address] [place] [address] 03/01/2024 09:36:06 03/01/2024 10:04:03 Cervical spondylosis without myelopathy 246590596 M47.812 Chronic condition that is stable. Continue with gabapentin at the current dose. He does need refills today. Neuralgia 95842189 M79.2 Chronic condition that is stable. Continue with gabapentin at the current dose. He does need refills today. Left foot drop 159194739 1 53848 M21.372 Chronic condition that is stable. No current therapy or equipment needs. Essential tremor 1888839 09 G25.0 New tremor in the last year. 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 He does find this socially embarrassi ng. We discussed primidone and propranolo l options. He was most comfortabl e with primidone. He is educated on how to take this medication and potential side effects. Will start a low dose and he will call with an update. [id number] LIVE Russell [facility] [address] [place] [address] [place] [address] 06/25/2024 13:01:20 06/25/2024 14:24:50 Pancreatitis 61744474 K85.90 patient developed acute left flank pain about a week after he had a heart stent placed in April. He was seen in the ED and [place] at which time he had elevated lipase with CT scan showing acute pancreatit is. I reviewed his CT scan from 05/20/2024 that showed proximal pancreatic inflammati on consistent with mild acute pancreatit is with mild splenomega ly, there was no IV or oral contrast. He continues to have left upper quadrant pain with eating. Denies nausea or vomiting. He has been off of Ozempic which he started in the last few months. Recommend repeat CT abdomen with contrast to evaluate if his pancreatit is has improved. Plan to obtain labs as well. Recommend strict low-fat diet. He was advised to present to the ED if he were to develop fever or worsening abdominal pain, n/v. 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 History of cholecystectomy 134765717 Z90.49 Screening for malignant neoplasm of colon 293895090 Z12.11 [id number] QUIANA MART [facility] Inter[facility] ions at [address] [place] [address] 09/10/2024 12:22:30 09/10/2024 15:49:54 [id number] AMINTA BARRETT NP [facility] [address] [address] 11/05/2024 13:48:49 11/05/2024 15:15:24 Chronic pancreatitis 617692606 K86.1 Diarrhea 30446559 R19.7 Bile acid malabsorption syndrome 91694762 E78.70 History of cholecystectomy 358336989 Z90.49 Screening for malignant neoplasm of colon 248328238 Z12.11 Nausea 224042486 R11.0 History of Intestinal infection caused by Clostridioides difficile 3476120473 86981 Z86.19 Reactive gastropathy 399 060982 K31.9 [id number] AMINTA BARRETT NP [facility] [address] [address] 01/14/2025 12:51:20 01/14/2025 14:01:20 Chronic pancreatitis 185828216 K86.1 Diarrhea 32632727 R19.7 Bile acid malabsorption syndrome 16084592 E78.70 History of cholecystectomy 326308034 Z90.49 Screening for malignant neoplasm of colon 198108769 Z12.11 Nausea 268309862 R11.0 History of Intestinal infection caused by Clostridioides difficile 8136756507 44081 Z86.19 Reactive gastropathy 399 070943 K31.9 Epigastric pain 72723626 R10.13 Health Concerns Section Related Observation LastModified by Organization Detai ls LastModified Time None Recorded Concern Status LastModified by Organization Details LastModified Time None Recorded Advance Directives Directive N: Payers Encounter Date Sequence Insurance Name Policy Number Policy Cohen Covered Member ID Cohen Member ID Guarantor Name 03/01/2024 1 [employer] (PP[place]) [id number] Jonathan Delgado [id number] Jonatahn Delgado 06/25/2024 1 [place] [id number] Jonathan Delgado [id number] Jonathan Delgado 08/15/2024 1 [place] [id number] 1 Jonathan Delgado [id number] Jonathan Delgado 11/05/2024 1 [place] [id number] Jonathan Delgado [id number] Jonathan Delgado 01/14/2025 1 [employer] - [place] Jonathan Delgado [id number] Jonathan Delgado Notes Date Note Type Note Provider Name and Address Organization Details Recorded Time 03/01/2024 text/html Jonathan comes in f or a routine follow up. He has peripheral neuropathy, chronic left foot drop and chronic neck pain related to spondylosis. He is prescribed gabapentin for his neuropathic pain. I did increase his night time dose of gabapentin last year as he was having more pain at night disrupting his sleep. His A1C in July 2023 was 6.6.He reports that the nerve pain is stable with the current dose of gabapentin. He has continued to get better control of the diabetes. He also has lost some weight.He does feel he is noticing some increased hand tremors. It is not interfering with his daily activities but he finds it socially embarrassing. When he has to write in front of other people. He is very bothered by the tremor.He had one ER visit in the last year due to some facial drawing. He had a normal MRI brain and cervical spine that were normal. He was diagnosed with a mild steen's palsy. He did have full recovery of this issue. PRIOR VISIT: (01/23/23)Jonathan comes in today for a routine follow up. He was last seen 01/24/22. He has cervical spondylosis without myelopathy that has caused him chronic neck pain. He has been on gabapentin to help manage his pain.He also has DM with diabetic peripheral neuropathy. His diabetes has not been well controlled in the past. He has a chronic left foot drop which has been stable for years. He has been dealing with his blood pressure this past year but it is doing better. He has had issues with extremely low bp and then it was extremely high. His current bp medication seems to be working quite well.His DM is under the best control in years. He now has insulin pump which has worked well for him. His most recent A1C 7.9.He does feel the gabapentin works fairly well for his neck pain and neuralgia. He will have a crawling sensation in his left side occasionally. It can vary on when it occurs and he has not noticed any triggers. It can last all day when it happens.He feels he is not thinking as sharp as he use to. He will call these brain freezes. He is not disoriented but loses his train of thought easily. It seems to be more noticeable this past year.He has not been sleeping well. He tends to toss and turn quite a bit during the night. He will struggle to fall asleep often. He does not feel that he has any symptoms of RLS as when he tosses and turns it is not a positive effect. He just never feels he can get comfortable in one position for very long. No racing thoughts reported. Georgina Marshall DO [address] , [place], [address], [facility] - [place] & [place] 03/01/2024 10:22:18 06/25/2024 text/html This is a 53-yea r-old male with a PMH significant for diabetes mellitus, CAD who was referred to our clinic for pancreatitis. Patient underwent a heart catheterization in April with Dr. Shot well. Several days after the procedure he developed symptoms of low blood pressure and left flank plain. He was evaluated in the ER in [place] at which time he was found to have elevated lipase with CT scan showing acute pancreatitis. Patient reports that he has started Ozempic around 6 months ago, has since been off the medication. He does not drink alcohol. He is currently on Brilinta for his history of CAD with multiple stents. Patient states he continues to have left upper quadrant pain that occurs with eating. He denies significant nausea or vomiting. He does feel he has had some chills, no fever. His PCP did order some labs a few weeks ago which we will try to obtain records from. LIVE Russell [address] [place] [address], [address], [place], [address], [facility] & [place] 06/26/2024 12:50:04 08/15/2024 text/html CURRENT (08/15/20 24 Margarita Barrett):Mr. Delgado is a 53 year old man referred to use by Quyen Elizabeth APRN for acute pancreatitis. Patient developed acute left flank pain after cardiac catheterization and was seen in the ED at [facility]. CT scan reportedly showed acute pancreatitis with a mildly elevated lipase. he continued to have left upper quadrant pain with eating but it has improved some. He mostly reports pain prior to having diarrhea. Denies nausea and vomiting. He had been on Ozempic but had stopped this a month prior to his hospitalization. Patient is aggravating symptom at this time is diarrhea. He reports urgency to defecate 15 minutes after eating. He also has history of cholecystectomy 13 years ago. He did not have issues with diarrhea until after his hospitalization. He has also a type 2 diabetic his last hemoglobin A1c was reportedly 7.7. He denies dysphagia, unintentional weight loss, nausea and vomiting or blood in stools. He reports his last colonoscopy was more than 10 years ago without polyps. He has a former smoker quit 23 years ago. He reports mild alcohol use of beer every 3 days prior to hospitalization and even less after hospitalization. He is tried to cut down on fast foods and carbonated beverages and improve his diet. AMINTA BARRETT, SHUKRI [address], [place], [address], [facility] & [place] 08/15/2024 14:51:19 11/05/2024 text/html PREVIOUS ( Margarita Barrett):Mr. Delgado is a 53 year old man referred to use by Quyen Elizabeth APRN for acute pancreatitis. Patient developed acute left flank pain after cardiac catheterization and was seen in the ED at [facility]. CT scan reportedly showed acute pancreatitis with a mildly elevated lipase. he continued to have left upper quadrant pain with eating but it has improved some. He mostly reports pain prior to having diarrhea. Denies nausea and vomiting. He had been on Ozempic but had stopped this a month prior to his hospitalization. Patient is aggravating symptom at this time is diarrhea. He reports urgency to defecate 15 minutes after eating. He also has history of cholecystectomy 13 years ago. He did not have issues with diarrhea until after his hospitalization. He has also a type 2 diabetic his last hemoglobin A1c was reportedly 7.7. He denies dysphagia, unintentional weight loss, nausea and vomiting or blood in stools. He reports his last colonoscopy was more than 10 years ago without polyps. He has a former smoker quit 23 years ago. He reports mild alcohol use of beer every 3 days prior to hospitalization and even less after hospitalization. He is tried to cut down on fast foods and carbonated beverages and improve his diet. CURRENT (11/05/2024): Mr. Delgado is here for follow up. He was treated for C.Diff in early august which he said improved with vancomycin (dificid denied by insurance). Recent stool test taken during colonoscopy showed + C. Diff PCR but negative antigen. EGD and colonoscopy appeared normal. One tubular adenoma was found. Biopsies taken from EGD showed gastropathy. He reports it had improved diarrhea has improved but started again after colonoscopy. He is not taking 2 colestipol in am and seems to be helping, but still having incontinence at night. He is having abdominal pain in umbilicus and continuous nausea. He is not on acid adding machine servicer. Denies any weight loss, fevers or bloody stool. AMINTA BARRETT, GUEST SERVICE REPRESENTATIVE [address] , [place], [address], [place] - [facility] - [place] & [place] 11/05/2024 15:41:48 01/14/2025 text/html PREVIOUS ( Margarita Barrett):Mr. Delgado is a 53 year old man referred to use by Quyen Elizabeth APRN for acute pancreatitis. Patient developed acute left flank pain after cardiac catheterization and was seen in the ED at [facility]. CT scan reportedly showed acute pancreatitis with a mildly elevated lipase. he continued to have left upper quadrant pain with eating but it has improved some. He mostly reports pain prior to having diarrhea. Denies nausea and vomiting. He had been on Ozempic but had stopped this a month prior to his hospitalization. Patient is aggravating symptom at this time is diarrhea. He reports urgency to defecate 15 minutes after eating. He also has history of cholecystectomy 13 years ago. He did not have issues with diarrhea until after his hospitalization. He has also a type 2 diabetic his last hemoglobin A1c was reportedly 7.7. He denies dysphagia, unintentional weight loss, nausea and vomiting or blood in stools. He reports his last colonoscopy was more than 10 years ago without polyps. He has a former smoker quit 23 years ago. He reports mild alcohol use of beer every 3 days prior to hospitalization and even less after hospitalization. He is tried to cut down on fast foods and carbonated beverages and improve his diet. PREVIOUS (11/05/2024): Mr. Delgado is here for follow up. He was treated for C.Diff in early august which he said improved with vancomycin (dificid denied by insurance). Recent stool test taken during colonoscopy showed + C. Diff PCR but negative antigen. EGD and colonoscopy appeared normal. One tubular adenoma was found. Biopsies taken from EGD showed gastropathy. He reports it had improved diarrhea has improved but started again after colonoscopy. He is not taking 2 colestipol in am and seems to be helping, but still having incontinence at night. He is having abdominal pain in umbilicus and continuous nausea. He is not on acid adding machine servicer. Denies any weight loss, fevers or bloody stool. CURRENT: Mr. Delgado is here for follow up of diarrhea, abdominal pain and nausea. Today he reports abdominal pain is epigastric and worse after eats. He complains of associated nausea but no vomiting, early satiety or loss of appetite. His diarrhea has improved on Colestipol. He is taking 1 tablet twice a day. He reports stool is still loose but urgency has improved. No blood in stool. He continues to take pantoprazole 40 mg. He does remark that symptoms have improved but are still present. Denies any new GI symptoms. AMINTA BARRETT, GUEST SERVICE REPRESENTATIVE [address], [place], [address], [facility] - [place] & [place] 01/14/2025 21:54:23
--- OUTSIDE RECORDS SUMMARY | 2025-03-19 07:28 | XMS_ITS | Clinical Summary ---
Author Organization [facility] , [facility] Address [address] [place] [address] Phone Care Team Providers Care Wax Pourer Name Role Phone Quyen Vincent DO Primary Care Provider [phone] Chris DE LA CRUZ, Vannessa Allison Unavailable [phone] Reason for Visit and Chief Complaint The Chief Complaint is: low back pain Problems Includes: Problems addressed during this encounter and other active Problems Current Visit Onset Date Resolved Date Provider Conditio n Status Lower Back Pain 10/09/2020 Horacio Zamudio MD Act farnaz Last Documented On 0 9:26AM ; [facility], [facility] Past Visits Onset Date Resolved Date Provider Condition Status Neck Pain 10/09/2020 Horacio Zamudio MD Active Last Documented On 0 9:26AM ; [facility], [facility] Joint Pain, Localized in the Left Shoulder 07/20/2018 Vannessa Perez MD Active Last Documented On 8 8:04AM ; [facility], [facility] Plan of Treatment Patient was seen by myself Jayjay Wang PA-C. Patient will follow up 4 weeks repeat lumbar spine x-rays with Dr. Zamudio we will get his delio out today continue restrictions no bending lifting or twisting - Last Documented On 01/13/2025 8:13AM ; [facility], [facility] Future Appointments Date Time Location Provi luis antonio Post Op 03/20/2025 11:00AM [facility] Horacio Zamudio MD Last Documented On 5 1:12PM ; [facility], [facility] Follow Up 04/23/2025 1:15PM [facility] RODNEY Wang PA-C Last Documented On 5 8:59AM ; [facility], [facility] Instructions to patient Lose weight Last Documented On 5 1:48PM ; [facility], [facility] Assessments Includes: Assessments from this encounter Findings - Overweight - Last Documented On 01/13/2025 8:13AM ; [facility], [facility] L4-L5 fusion went 12/25/2024 - Last Documented On 01/13/2025 8:13AM ; [facility], [facility] Instructions Includes: Instructions from this encounter Instructions to patient Lose weight Last Documented On 5 1:48PM ; [facility], [facility] Medical Equipment - Implanted Devices Includes: Current Devices No Medical Equipment Recorded Medications Includes: Medications discussed during this encounter and other current Medications Current Medications (continue as prescribed) Sertraline HCl 200 MG Oral Capsule 03/10/2025 Provid er: Diagnosis: Last Documented On 5 10:06AM By Arthur Loving ; [facility] Ranolazine ER 1000 MG Oral Packet 03/10/2025 Provide r: Diagnosis: Last Documented On 10:06AM By Arthur Loving ; [facility] Ranolazine ER 1000 MG Oral Tablet Extended Release 12 Hour 03/03/2025 Provider: Diagnosis: Last Documented On 5 8:18AM By Arthur Loving ; [facility], [facility] Folic Acid 1 MG Oral Tablet 02/25/2025 Provider: Quyen Vincent DO Diagnosis: Last Documented On 5 8:18AM By Arthur Loving ; [facility] Vitamin D (Ergocalciferol) 1 .25 MG (48121 UT) Oral Capsule 02/25/2025 Provider: Quyen Vincent DO Diagnosis: Last Documented On 5 8:18AM By Arthur Loving ; [facility], [facility] Sucralfate 1 GM/10ML Oral Suspension 01/14/2025 Prov ider: Diagnosis: Last Documented On 5 8:18AM By Arthur Loving ; [facility], [facility] oxyCODONE-Acetaminophen 5-325 MG Oral Tablet 02/11/202 5 Provider: Horacio Zamudio MD Diagnosis: Last Documented On 5 8:18AM By Arthur Loving ; [facility], [facility] HumaLOG 100 UNIT/ML Injection Solution 12/13/2024 Pr ovider: Diagnosis: Last Documented On 5 8:18AM By Arthur Loving ; [facility] traMADol HCl 50 MG Oral Tablet 12/12/2024 Provider: Quyen Vincent DO Diagnosis: Last Documented On 5 8:18AM By Arthur Loving ; [facility] buPROPion HCl 75 MG Oral Tablet 12/09/2024 Provider: Diagnosis: Last Documented On 5 8:18AM By Arthur Loving ; [facility] amLODIPine Besylate 2.5 MG Oral Tablet 11/05/2024 Pr ovider: Quyen Vincent DO Diagnosis: Last Documented On 5 8:18AM By Arthur Loving ; [facility] Midodrine HCl 5 MG Oral Tablet 11/05/2024 Provider: Diagnosis: Last Documented On 5 8:18AM By Arthur Loving ; [facility] Pantoprazole Sodium 40 MG Oral Tablet Delayed Release 11/05/2024 Provider: Diagnosis: Last Documented On 5 8:18AM By Arthur Loving ; [facility] Gabapentin 300 MG Oral Capsule 06/12/2024 Provider: Georgina Marshall DO Diagnosis: Last Documented On 4 10:47AM By Deborah Gant ; [facility], [facility] Dexcom G6 Sensor Miscellaneous 06/10/2024 Provider: Diagnosis: Last Documented On 4 10:47AM By Deborah Gant ; [facility] Insulin Lispro 100 UNIT/ML Injection Solution 06/10/20 Provider: Diagnosis: Last Documented On 4 10:47AM By Deborah Gant ; [facility] tiZANidine HCl 4 MG Oral Tablet 06/05/2024 Provider: Quyen Vincent DO Diagnosis: Last Documented On 4 10:47AM By Deborah Gant ; [facility] metFORMIN HCl ER 500 MG Oral Tablet Extended Rel ease 24 Hour 06/05/2024 Provider: Diagnosis: Last Documented On 4 10:47AM By Deborah aGnt ; [facility], [facility] Primidone 50 MG Oral Tablet 06/02/2024 Provider: Georgina Marshall DO Diagnosis: Last Documented On 4 10:47AM By Deborah Gant ; [facility], [facility] Promethazine HCl 25 MG Oral Tablet 05/29/2024 Provid er: Quyen Vincent DO Diagnosis: Last Documented On 4 10:47AM By Deborah Gant ; [facility], [facility] Atorvastatin Calcium 40 MG Oral Tablet 05/25/2024 Pr ovider: Diagnosis: Last Documented On 4 10:47AM By Deborah Gant ; [facility], [facility] Bisoprolol Fumarate 5 MG Oral Tablet 05/25/2024 Prov ider: Diagnosis: Last Documented On 4 10:47AM By Deborah Gant ; [facility], [facility] Jardiance 10 MG Oral Tablet 05/16/2024 Provider: Diagnosis: Last Documented On 4 10:47AM By Deborah Gant ; [facility], [facility] Brilinta 90 MG Oral Tablet 05/05/2024 Provider: Diagnosis: Last Documented On 4 10:47AM By Deborah Gant ; [facility], [facility] Aspirin Low Dose 81 MG Oral Tablet Delayed Release 10/2024 Provider: Diagnosis: Last Documented On 4 10:47AM By Deborah Gant ; [facility], [facility] Sertraline HCl 100 MG Oral Tablet 04/07/2024 Provide r: Quyen Vincent DO Diagnosis: Last Documented On 4 10:47AM By Deborah Gant ; [facility], [facility] Dexcom G6 Transmitter Miscellaneous 02/16/2024 Provi luis antonio: Diagnosis: Last Documented On 4 10:47AM By Deborah Gant ; [facility], [facility] NovoLOG 100 UNIT/ML Injection Solution 01/29/2024 Pr ovider: Diagnosis: Last Documented On 4 10:47AM By Deborah Gant ; [facility] Naproxen 500 MG Oral Tablet 01/11/2024 Provider: Diagnosis: Last Documented On 4 10:47AM By Deborah Gant ; [facility] Past Medications on file Percocet 5-325 MG Oral Tablet 01/07/2025 - 01/17/2025 Provider: Horacio Zamudio MD Diagnosis: 1 tab every 6 hrs prn pain Last Documented On 5 2:53PM By Horacio Zamudio ; [facility] Percocet 5-325 MG Oral Tablet 12/25/2024 - 01/09/2025 Provider: Horacio Zamudio MD Diagnosis: 1 po q 4h prn pain Last Documented On 5 8:29AM By Horacio Zamudio ; [facility] Meloxicam 15 MG Oral Tablet 06/27/2024 - 08/26/2024 Pr ovider: Horacio Zamudio MD Diagnosis: Take one tablet my mouth once a day Last Documented On 4 11:02AM By Wendi Gibbons ; [facility] traMADol HCl 50 MG Oral Tablet 12/25/2020 - 03/25/2021 Provider: Casper Negrete MD Diagnosis: Take 1 tablet every 8 hrs prn pain Last Documented On 1 4:04PM By Casper Negrete ; [facility] Dexamethasone Sodium Phosphate 4MG/ML Injection Solution 09/24/2018 - 10/24/2018 Provider: Vannessa song MD Diagnosis: 1 30 cc vial/ use as directe d for iontophoresis for physical therapy// Last Documented On 8 11:10AM By Maya Chisholm ; [facility] Lortab 7.5-500 MG OR TABS 09/04/2013 - 09/09/2013 Prov ider: Vannessa Perez MD Diagnosis: sx on 09-05-ks Last Documented On 3 8:53AM By Tatum 1 User ; [facility] Lortab 5-500 MG OR [...] er: Vannessa Perez MD Diagnosis: bhcalled to [phone] Last Documented On 9 3:34PM By Tatum [...] 8 1:51PM By Tatum 1 User ; [facility] Lortab 7.5-500 MG OR [...] 9:39AM By Lesley Escamilla ; [facility], [facility] Medications Administered Includes: Administered Medications from [...] 07/16/2021 Last Documented On 5 1:48PM ; [facility], [facility] Not using drugs 07/16/2021 Last Documented On 5 1:48PM ; [facility], [facility] Non-smoker 11/30/2020 Last Documented On 5 1:48PM ; [facility], [facility] No tobacco use 07/20/2018 Last Documented On 5 1:48PM ; [facility], [facility] Smoking status : Former smoker 8 Last Documented On 5 1:48PM ; [facility], [facility] Not a current smoker 07/20/2018 Last Documented On 5 1:48PM ; [facility], [facility] Not exercising regularly 10/13/2016 Last Documented On 5 1:48PM ; [facility], [facility] Procedures and Surgical History Includes: Procedures from this encounter Procedures Code Diagnosis Performing Provider Service Location Service Date X-RAY EXAM OF LOWER SPINE 2-3 VIEWS LIMITED 77389 Spinal stenosis, lumbar region with neurogenic claudication, Spondylolisthesi s, lumbar region Jayjay Wang PA-C [facility] 01/08/2025 Last Documented On 5 9:23AM ; [facility] CT scan [facility] [id number] Last Documented On 5 1:48PM ; [facility], [facility] Surgical History Last Updated History of History of Gallbladder 2023 Last Documented On 5 1:48PM ; [facility], [facility] History of total knee arthroplasty 06/27 Last Documented On 5 1:48PM ; [facility], [facility] History of appendectomy 10/13/2016 Last Documented On 5 1:48PM ; [facility] History of heart surgery 10/13/2016 Last Documented On 5 1:48PM ; [facility], [facility] History of hernia repair 10/13/2016 Last Documented On 5 1:48PM ; [facility], [facility] Medical History Includes: Medical History addressed during this encounter Description Last Updated History of arthritis 06/27/2024 Last Documented On 5 1:48PM ; [facility] History of Heartburn / Acid Reflux 06/27 Last Documented On 5 1:48PM ; [facility], [facility] History of Hypertension 06/27/2024 Last Documented On 5 1:48PM ; [facility] History of Sleep Apnea 06/27/2024 Last Documented On 5 1:48PM ; [facility] Use of CPAP 06/27/2024 Last Documented On 5 1:48PM ; [facility], [facility] No recent immunization for pneumococcal pneumonia 07/16/2021 Last Documented On 5 1:48PM ; [facility] A recent immunization for flu 11/30/2020 Last Documented On 5 1:48PM ; [facility] Back surgery L4-L5 Microdecompression Last Documented On 5 1:48PM ; [facility] History of Arthroscopy Left Elbow 2020 Last Documented On 5 1:48PM ; [facility] left elbow surgery 07/20/2018 Last Documented On 5 1:48PM ; [facility] Arthritic joint problems 10/13/2016 Last Documented On 5 1:48PM ; [facility] Gallbladder disease 10/13/2016 Last Documented On 5 1:48PM ; [facility] History of depression 10/13/2016 Last Documented On 5 1:48PM ; [facility], [facility] History of diabetes mellitus 10/13/2016 Last Documented On 5 1:48PM ; [facility], [facility] History of heart disease 10/13/2016 Last Documented On 5 1:48PM ; [facility], [facility] Intermittent hypertension 10/13/2016 Last Documented On 5 1:48PM ; [facility] Family History Includes: Family History addressed during this encounter Description Last Updated Diabetes mellitus 11/30/2020 Last Documented On 5 1:48PM ; [facility] Family history of heart disease 11/30/19 21 Last Documented On 5 1:48PM ; [facility], [facility] Family history of hypertension 1 Last Documented On 5 1:48PM ; [facility] lupus 07/20/2018 Last Documented On 5 1:48PM ; [facility], [facility] Paternal history of diabetes mellitus Last Documented On 5 1:48PM ; [facility], [facility] Maternal history of diabetes mellitus Last Documented On 5 1:48PM ; [facility], [facility] Family history of diabetes mellitus 09/27 Last Documented On 5 1:48PM ; [facility], [facility] Maternal history of hypertension 016 Last Documented On 5 1:48PM ; [facility] Review of Systems Includes: Review of [...] Active Last Documented On 5 8:18AM ; [facility], [facility] Encounters Encounter Provider Location Date Check-In Time Check-Out Time Diagnosis Post Op Jayjay Wang PA-C [facility] [place] 5 1:27PM 1:59PM Overweight Insurance Includes: Active Insurance Policies Plan Name Member ID Group # Subscriber Relationship Effect farnaz Dates 1 - [employer] [id number] Jonathan Delgado Self 11/27/2024 - Unknown Clinical Notes Includes: Clinical Notes from this encounter * Progress note Date Encounter Last Documented by 01/08/2025 Post Op Last documented on 01/13/2025; 8:13 AM, Jayjay Wang PA-C; [facility], [facility] Active Problems & Conditions - Joint [...] Previous Tests Imaging: CT Scan: CT scan [facility]. Available previous imaging studies were reviewed [...] Care Team - Quyen Vincent DO - [employer] Health Reminders - Assess BMI satisfied 01/08/2025. - Assess Tobacco Use satisfied 01/08/2025. - Follow Up Plan BMI Management satisfied 01/08/2025.
--- OUTSIDE RECORDS SUMMARY | 2025-03-19 07:28 | XMS_ITS | Clinical Summary ---
Author Organization [facility] , [facility] Address [address] [place] [address] Phone Care Team Providers Care Director Of Casework Services Name Role Phone Quyen Vincent DO Primary Care Provider [phone] Chris DE LA CRUZ, Vannessa Allison Unavailable [phone] Reason for Visit and Chief Complaint [Patient Encounter] Problems Includes: Problems addressed during this encounter and other active Problems All Visits Onset Date Resolved Date Provider Condition S tatus Neck Pain 10/09/2020 Horacio Zamudio MD Active Last Documented On 0 9:26AM ; [facility], [facility] Lower Back Pain 10/09/2020 Horacio Zamudio MD Act farnaz Last Documented On 0 9:26AM ; [facility], [facility] Joint Pain, Localized in the Left Shoulder 07/20/2018 Vannessa Perez MD Active Last Documented On 8 8:04AM ; [facility], [facility] Plan of Treatment Pending Tests Order Diagnosis Results Due Ordering P rovider Radiology - MRI MRI Lumbar Spine Low back pain, unspecified 07/11/24 Horacio Zamudio MD Last Documented On 5 1:29PM ; [facility], [facility] Future Appointments Date Time Location Provi luis antonio Post Op 03/20/2025 11:00AM [facility] Horacio Zamudio MD Last Documented On 5 1:12PM ; [facility], [facility] Follow Up 04/23/2025 1:15PM [facility] PS C TREY Wang PA-C Last Documented On 5 8:59AM ; [facility] Assessments Includes: Assessments from this encounter [...] 1 po q 4h prn pain Pharmacy: [address], [address] - Last Documented On 5 8:29AM By Horacio Zamudio ; [facility], [facility] Current Medications (continue as prescribed) Sertraline HCl 200 MG Oral Capsule 03/10/2025 Provid er: Diagnosis: Last Documented On 5 10:06AM By Arthur Loving ; [facility], [facility] Ranolazine ER 1000 MG Oral Packet 03/10/2025 Provide r: Diagnosis: Last Documented On 5 10:06AM By Arthur Loving ; [facility], [facility] Ranolazine ER 1000 MG Oral Tablet Extended Release 12 Hour 03/03/2025 Provider: Diagnosis: Last Documented On 5 8:18AM By Arthur Loving ; [facility], [facility] Folic Acid 1 MG Oral Tablet 02/25/2025 Provider: Quyen Vincent DO Diagnosis: Last Documented On 5 8:18AM By Arthur Loving ; [facility], [facility] Vitamin D (Ergocalciferol) 1 .25 MG (89336 UT) Oral Capsule 02/25/2025 Provider: Quyen Vincent DO Diagnosis: Last Documented On 5 8:18AM By Arthur Loving ; [facility], [facility] Sucralfate 1 GM/10ML Oral Suspension 01/14/2025 Prov ider: Diagnosis: Last Documented On 5 8:18AM By Arthur Loving ; [facility] oxyCODONE-Acetaminophen 5-325 MG Oral Tablet 5 Provider: Horacio Zamudio MD Diagnosis: Last Documented On 5 8:18AM By Arthur Loving ; [facility] HumaLOG 100 UNIT/ML [...] On 5 8:18AM By Arthur Loving ; [facility] amLODIPine Besylate 2.5 MG Oral Tablet 11/05/2024 Pr ovider: Quyen Vincent DO Diagnosis: Last Documented On 5 8:18AM By Arthur Loving ; [facility], [facility] Midodrine HCl 5 MG Oral Tablet 11/05/2024 Provider: Diagnosis: Last Documented On 5 8:18AM By Arthur Loving ; [facility], [facility] Pantoprazole Sodium 40 MG Oral Tablet Delayed Release 11/05/2024 Provider: Diagnosis: Last Documented On 5 8:18AM By Arthur Loving ; [facility], [facility] Gabapentin 300 MG Oral Capsule 06/12/2024 Provider: Georgina Marshall DO Diagnosis: Last Documented On 4 10:47AM By Deborah Gant ; [facility], [facility] Dexcom G6 Sensor Miscellaneous 06/10/2024 Provider: Diagnosis: Last Documented On 4 10:47AM By Deborah Gant ; [facility] Insulin Lispro 100 UNIT/ML Injection Solution 06/10/20 Provider: Diagnosis: Last Documented On 4 10:47AM By Deborah Gant ; [facility] tiZANidine HCl 4 MG Oral Tablet 06/05/2024 Provider: Quyen Vincent DO Diagnosis: Last Documented On 4 10:47AM By Deborah Gant ; [facility], [facility] metFORMIN HCl ER 500 MG Oral Tablet Extended Rel ease 24 Hour 06/05/2024 Provider: Diagnosis: Last Documented On 4 10:47AM By Deborah Gant ; [facility] Primidone 50 MG Oral Tablet 06/02/2024 Provider: Georgina Marshall DO Diagnosis: Last Documented On 4 10:47AM By Deborah Gant ; [facility] Promethazine HCl 25 MG Oral Tablet 05/29/2024 Provid er: Quyen Vincent DO Diagnosis: Last Documented On 4 10:47AM By Deborah Gant ; [facility] Atorvastatin Calcium 40 MG Oral Tablet 05/25/2024 Pr ovider: Diagnosis: Last Documented On 4 10:47AM By Deborah Gant ; [facility] Bisoprolol Fumarate 5 MG Oral Tablet 05/25/2024 Prov ider: Diagnosis: Last Documented On 4 10:47AM By Deborah Gant ; [facility], [facility] Jardiance 10 MG Oral Tablet 05/16/2024 Provider: Diagnosis: Last Documented On 4 10:47AM By Deborah Gant ; [facility] Brilinta 90 MG Oral Tablet 05/05/2024 Provider: Diagnosis: Last Documented On 4 10:47AM By Deborah Gant ; [facility], [facility] Aspirin Low Dose 81 MG Oral Tablet Delayed Release 10/2024 Provider: Diagnosis: Last Documented On 4 10:47AM By Deborah Gant ; [facility] Sertraline HCl 100 MG Oral Tablet 04/07/2024 Provide r: Quyen Vincent DO Diagnosis: Last Documented On 4 10:47AM By Deborah Gant ; [facility] Dexcom G6 Transmitter Miscellaneous 02/16/2024 Provi luis antonio: Diagnosis: Last Documented On 4 10:47AM By Deborah Gant ; [facility] NovoLOG 100 UNIT/ML Injection Solution 01/29/2024 Pr ovider: Diagnosis: Last Documented On 4 10:47AM By Deborah Gant ; [facility] Naproxen 500 MG Oral Tablet 01/11/2024 Provider: Diagnosis: Last Documented On 4 10:47AM By Deborah VARGAS [facility], [facility] Medications Administered Includes: Administered Medications from [...] Last Documented On 5 8:18AM ; [facility], [facility] Encounters Encounter Provider Location Date Check-In Time Check-Out Time Diagnosis [Patient Encounter] Horacio Zamudio MD 12/25/2024 8:29AM 11:59PM Insurance Includes: Active Insurance Policies Plan Name Member ID Group # Subscriber Relationship Effect farnaz Dates 1 - [employer] [id number] Jonathanjustine Delgado Self 11/27/2024 - Unknown Clinical Notes Includes: Clinical Notes from this encounter No Clinical Notes Recorded
--- OUTSIDE RECORDS SUMMARY | 2025-03-19 07:28 | XMS_ITS | Clinical Summary ---
Author Organization [facility] Address [address] [place] [address] Phone Care Team Providers Care Site Superintendent Name Role Phone Quyen Vincent DO Primary Care Provider [phone] Chris DE LA CRUZ, Vannessa Allison Unavailable [phone] Reason for Visit and Chief Complaint The Chief Complaint is: low back pain Problems Includes: Problems addressed during this encounter and other active Problems Current Visit Onset Date Resolved Date Provider Conditio n Status Lower Back Pain 10/09/2020 Horacio Zamudio MD Act farnaz Last Documented On 0 9:26AM ; [facility] Past Visits Onset Date Resolved Date Provider Condition Status Neck Pain 10/09/2020 Horacio Zamudio MD Active Last Documented On 0 9:26AM ; [facility] Joint Pain, Localized in the Left Shoulder 07/20/2018 Vannessa Perez MD Active Last Documented On 8 8:04AM ; [facility] Plan of Treatment Patient was seen by myself Jayjay Wang PA-C. Patient will follow up 6 weeks we will start with some formal physical therapy if this is not help we will consider other imaging - Last Documented On 03/10/2025 12:59PM ; [facility] Future Appointments Date Time Location Provi luis antonio Post Op 03/20/2025 11:00AM [facility] Horacio Zamudio MD Last Documented On 5 1:12PM ; [facility] Follow Up 04/23/2025 1:15[facility] RODNEY Wang PA-C Last Documented On 5 8:59AM ; [facility] Instructions to patient Lose weight Last Documented On 5 8:18AM ; [facility] Assessments Includes: Assessments from this encounter Findings - Overweight - Last Documented On 03/10/2025 12:59PM ; [facility] Neck pain in the right arm pain - Last Documented On 03/10/2025 12:59PM ; [facility] Instructions Includes: Instructions from this encounter Instructions to patient Lose weight Last Documented On 5 8:18AM ; [facility] Medical Equipment - Implanted Devices Includes: Current Devices No Medical Equipment Recorded Medications Includes: Medications discussed during this encounter and other current Medications Current Medications (continue as prescribed) Sertraline HCl 200 MG Oral Capsule 03/10/2025 Provid er: Diagnosis: Last Documented On 5 10:06AM By Arthur Loving ; [facility] Ranolazine ER 1000 MG Oral Packet 03/10/2025 Provide r: Diagnosis: Last Documented On 5 10:06AM By Arthur Loving ; [facility] Ranolazine ER 1000 MG Oral Tablet Extended Release 12 Hour 03/03/2025 Provider: Diagnosis: Last Documented On 5 8:18AM By Arthur Loving ; [facility] Folic Acid 1 MG Oral Tablet 02/25/2025 Provider: Quyen Vincent DO Diagnosis: Last Documented On 5 8:18AM By Arthur Loving ; [facility] Vitamin D (Ergocalciferol) 1 .25 MG (06902 UT) Oral Capsule 02/25/2025 Provider: Quyen Vincent DO Diagnosis: Last Documented On 5 8:18AM By Arthur Loving ; [facility] Sucralfate 1 GM/10ML Oral Suspension 01/14/2025 Prov ider: Diagnosis: Last Documented On 5 8:18AM By Arthur Loving ; [facility] oxyCODONE-Acetaminophen 5-325 MG Oral Tablet Provider: Horacio Zamudio MD Diagnosis: Last Documented On 5 8:18AM By Arthur Loving ; [facility] HumaLOG 100 UNIT/ML Injection Solution 12/13/2024 Pr ovider: Diagnosis: Last Documented On 5 8:18AM By Arthur Loving ; [facility] traMADol HCl 50 MG Oral Tablet 12/12/2024 Provider: Quyen Vincent DO Diagnosis: Last Documented On 5 8:18AM By Arthur Loving ; [facility] buPROPion HCl 75 MG Oral Tablet 12/09/2024 Provider: Diagnosis: Last Documented On 5 8:18AM By Arthur Loving ; [facility] amLODIPine Besylate 2.5 MG Oral Tablet 11/05/2024 Pr ovider: Quyen Vincent DO Diagnosis: Last Documented On 5 8:18AM By Arthur Loving ; [facility] Midodrine HCl 5 MG Oral Tablet 11/05/2024 Provider: Diagnosis: Last Documented On 5 8:18AM By Arthur Loving ; [facility] Pantoprazole Sodium 40 MG Oral Tablet Delayed Release 11/05/2024 Provider: Diagnosis: Last Documented On 5 8:18AM By Arthur Loving ; [facility] Gabapentin 300 MG Oral Capsule 06/12/2024 Provider: Georgina Marshall DO Diagnosis: Last Documented On 4 10:47AM By Deborah Gant ; [facility] Dexcom G6 Sensor Miscellaneous 06/10/2024 Provider: Diagnosis: Last Documented On 4 10:47AM By Deborah Gant ; [facility] Insulin Lispro 100 UNIT/ML Injection Solution 06/10/20 Provider: Diagnosis: Last Documented On 4 10:47AM By Deborah Gant ; [facility] tiZANidine HCl 4 MG Oral Tablet 06/05/2024 Provider: Quyen Vincent DO Diagnosis: Last Documented On 4 10:47AM By Deborah Gant ; [facility] metFORMIN HCl ER 500 MG Oral Tablet Extended Rel ease 24 Hour 06/05/2024 Provider: Diagnosis: Last Documented On 4 10:47AM By Deborah Gant ; [facility] Primidone 50 MG Oral Tablet 06/02/2024 Provider: Georgina Marshall DO Diagnosis: Last Documented On 4 10:47AM By Deborah Gant ; [facility] Promethazine HCl 25 MG Oral Tablet 05/29/2024 Provid er: Quyen Vincent DO Diagnosis: Last Documented On 4 10:47AM By Deborah Gant ; [facility] Atorvastatin Calcium 40 MG Oral Tablet 05/25/2024 Pr ovider: Diagnosis: Last Documented On 4 10:47AM By Deborah Gant ; [facility] Bisoprolol Fumarate 5 MG Oral Tablet 05/25/2024 Prov ider: Diagnosis: Last Documented On 4 10:47AM By Deborah Gant ; [facility] Jardiance 10 MG Oral Tablet 05/16/2024 Provider: Diagnosis: Last Documented On 4 10:47AM By Deborah Gant ; [facility] Brilinta 90 MG Oral Tablet 05/05/2024 Provider: Diagnosis: Last Documented On 4 10:47AM By Deborah Gant ; [facility] Aspirin Low Dose 81 MG Oral Tablet Delayed Release 10/2024 Provider: Diagnosis: Last Documented On 4 10:47AM By Deborah Gant ; [facility] Sertraline HCl 100 MG Oral Tablet 04/07/2024 Provide r: Quyen Vincent DO Diagnosis: Last Documented On 4 10:47AM By Deborah Gant ; [facility] Dexcom G6 Transmitter Miscellaneous 02/16/2024 Provi luis antonio: Diagnosis: Last Documented On 4 10:47AM By Deborah Gant ; [facility] NovoLOG 100 UNIT/ML Injection Solution 01/29/2024 Pr ovider: Diagnosis: Last Documented On 4 10:47AM By Deborah Gant ; [facility] Naproxen 500 MG Oral Tablet 01/11/2024 Provider: Diagnosis: Last Documented On 4 10:47AM By Deborah Gant ; [facility] Past Medications on file Percocet 5-325 MG Oral Tablet 01/07/2025 - 01/17/2025 Provider: Horacio Zamudio MD Diagnosis: 1 tab every 6 hrs prn pain Last Documented On 5 2:53PM By Horacio Zamudio ; [facility] Percocet 5-325 MG Oral Tablet 12/25/2024 - 01/09/2025 Provider: Horacio Zamudio MD Diagnosis: 1 po q 4h prn pain Last Documented On 5 8:29AM By Horacio Zamudio ; [facility] Meloxicam 15 MG Oral Tablet 06/27/2024 - 08/26/2024 Pr ovider: Horacio Zamudio MD Diagnosis: Take one tablet my mouth once a day Last Documented On 4 11:02AM By Wendi Gibbons ; [facility] traMADol HCl 50 MG Oral Tablet 12/25/2020 - 03/25/2021 Provider: Casper Negrete MD Diagnosis: Take 1 tablet every 8 hrs prn pain Last Documented On 1 4:04PM By Casper Negrete ; [facility] Dexamethasone Sodium Phosphate 4MG/ML Injection Solution 09/24/2018 - 10/24/2018 Provider: Vannessa song MD Diagnosis: 1 30 cc vial/ use as directe d for iontophoresis for physical therapy// Last Documented On 8 11:10AM By Maya Chisholm ; [facility] Lortab 7.5-500 MG OR TABS 09/04/2013 - 09/09/2013 Prov ider: Vannessa Perez MD Diagnosis: sx on 09-05-13ks Last Documented On 3 8:53AM By Tatum 1 User ; [facility] Lortab 5-500 MG OR [...] er: Vannessa Perez MD Diagnosis: bhcalled to [phone] Last Documented On 9 3:34PM By Tatum [...] 7 9:11AM By Tatum 3 User ; [facility] DENIED EX MISC 06/07/2007 - 06/08/2007 Provider: Rere Aranda MD Diagnosis: pt can take tylenol 500 mg 1 -2 q 4-6 hrs and advil or ibuprofen 2 of them 3 x a day until f/u for mri results/ left message with patients for h Last Documented On 7 9:39AM By Lesley Escamilla ; [facility] Medications Administered Includes: Administered Medications from this encounter No Administered Medications Recorded Vital Signs Includes: Vital Signs from this encounter Vital Name 03/10/2025 09:19A 03/10/2025 09: 19A Height (in) 74 74 Weight (lb) 240 240 Body Mass Index 30.8 30.8 Body Surface Area 2.3 2.3 Pain Level 7 Last Documented: On 03/10/2025 9:19AM ; [facility] On 03/10/2025 9:19AM ; [facility] Results Includes: Results discussed during this [...] to 7/10 pain he has tried some [id number]-zvd-bmvofyf ibuprofen and lidocaine patches which do helps to some degree. Denies any balance issues bowel or bladder issues with this does get some associated headaches with this Social History Description Last Updated Recent change in diet diabetic 4 Last Documented On 5 8:18AM ; [facility] Not a current smoker. 06/27/2024 Last Documented On 5 8:18AM ; [facility] No caffeine use 07/16/2021 Last Documented On 5 8:18AM ; [facility] No recent change in diet 07/16/2021 Last Documented On 5 8:18AM ; [facility] Not a current smoker. 07/16/2021 Last Documented On 5 8:18AM ; [facility] Not using alcohol 07/16/2021 Last Documented On 5 8:18AM ; [facility] Not using drugs 07/16/2021 Last Documented On 5 8:18AM ; [facility] Non-smoker 11/30/2020 Last Documented On 5 8:18AM ; [facility] No tobacco use 07/20/2018 Last Documented On 5 8:18AM ; [facility] Smoking status : Former smoker 8 Last Documented On 5 8:18AM ; [facility] Not a current smoker 07/20/2018 Last Documented On 5 8:18AM ; [facility] Not exercising regularly 10/13/2016 Last Documented On 5 8:18AM ; [facility] Procedures and Surgical History Includes: Procedures from this encounter Procedures Code Diagnosis Performing Provider Service Location Service Date X-RAY EXAM OF NECK SPINE 2 VIEWS 72182 Radiculopathy, cervical region Jayjay Wang PA-C [facility] 03/10/2025 Last Documented On 5 12:42PM ; [facility] CT scan [facility] [id number] Last Documented On 5 8:18AM ; [facility] Surgical History Last Updated History of back surgery L4-5 Open Decomp ression & Fusion 12/25/24 02/11/2025 Last Documented On 5 8:18AM ; [facility] Past Surgical History: left elbow surger y 02/11/2025 Last Documented On 5 8:18AM ; [facility] History of History of Gallbladder 2023 Last Documented On 5 8:18AM ; [facility] History of total knee arthroplasty 06/27 Last Documented On 5 8:18AM ; [facility] History of appendectomy 10/13/2016 Last Documented On 5 8:18AM ; [facility] History of heart surgery 10/13/2016 Last Documented On 5 8:18AM ; [facility] History of hernia repair 10/13/2016 Last Documented On 5 8:18AM ; [facility] Medical History Includes: Medical History addressed during this encounter Description Last Updated History of arthritis 06/27/2024 Last Documented On 5 8:18AM ; [facility] History of Heartburn / Acid Reflux 06/27 Last Documented On 5 8:18AM ; [facility] History of Hypertension 06/27/2024 Last Documented On 5 8:18AM ; [facility] History of Sleep Apnea 06/27/2024 Last Documented On 5 8:18AM ; [facility] Use of CPAP 06/27/2024 Last Documented On 5 8:18AM ; [facility] No recent immunization for pneumococcal pneumonia 07/16/2021 Last Documented On 5 8:18AM ; [facility] A recent immunization for flu 11/30/2020 Last Documented On 5 8:18AM ; [facility] left elbow surgery 07/20/2018 Last Documented On 5 8:18AM ; [facility] Arthritic joint problems 10/13/2016 Last Documented On 5 8:18AM ; [facility] Gallbladder disease 10/13/2016 Last Documented On 5 8:18AM ; [facility] History of depression 10/13/2016 Last Documented On 5 8:18AM ; [facility] History of diabetes mellitus 10/13/2016 Last Documented On 5 8:18AM ; [facility] History of heart disease 10/13/2016 Last Documented On 5 8:18AM ; [facility] Intermittent hypertension 10/13/2016 Last Documented On 5 8:18AM ; [facility] Family History Includes: Family History addressed during this encounter Description Last Updated Diabetes mellitus 11/30/2020 Last Documented On 5 8:18AM ; [facility] Family history of heart disease 11/30/19 21 Last Documented On 5 8:18AM ; [facility] Family history of hypertension 1 Last Documented On 5 8:18AM ; [facility] lupus 07/20/2018 Last Documented On 5 8:18AM ; [facility] Paternal history of diabetes mellitus Last Documented On 5 8:18AM ; [facility] Maternal history of diabetes mellitus Last Documented On 5 8:18AM ; [facility] Family history of diabetes mellitus 09/27 Last Documented On 5 8:18AM ; [facility] Maternal history of hypertension 016 Last Documented On 5 8:18AM ; [facility] Review of Systems Includes: Review of [...] Active Last Documented On 5 8:18AM ; [facility] Encounters Encounter Provider Location Date Check-In Time Check-Out Time Diagnosis NEW PROBLEM/EST PT Jayjay Wang PA-C [facility] 03/10/20 25 8:12AM 9:01AM Overweight Insurance Includes: Active Insurance Policies Plan Name Member ID Group # Subscriber Relationship Effect farnaz Dates 1 - [employer] [id number] Jonathan Delgado Self 11/27/2024 - Unknown Clinical Notes Includes: Clinical Notes from this encounter * Progress note Date Encounter Last Documented by 03/10/2025 NEW PROBLEM/EST PT Last document ed on 03/10/2025; 12:59 PM, Jayjay Wang PA-C; [facility] Active Problems & Conditions [...] to 10 pain he has tried some yyvm-faf-amuoume ibuprofen and lidocaine patches which do helps [...] refills - Vitamin D (Ergocalciferol) 1.25 MG (96421 UT) Oral Capsule 84 days, 0 refills [...] Previous Tests Imaging: CT Scan: CT scan [facility]. Available previous imaging studies were [...] Care Team - Quyen Vincent DO - [employer] Health Reminders - Assess BMI satisfied 03/10/2025. - Assess Tobacco Use satisfied 07/20/2018. - Follow Up Plan BMI Management satisfied 03/10/2025.
--- OUTSIDE RECORDS SUMMARY | 2025-03-19 07:28 | XMS_ITS | Clinical Summary ---
Author Organization [facility] Address [address] [place] [address] Phone Care Team Providers Care Avionics Repair Technician Name Role Phone Quyen Vincent DO Primary Care Provider [phone] Chris DE LA CRUZ, Vannessa Allison Unavailable [phone] Reason for Visit and Chief Complaint [facility] Problems Includes: Problems addressed during this encounter and other active Problems All Visits Onset Date Resolved Date Provider Condition S tatus Neck Pain 10/09/2020 Horacio Zamudio MD Active Last Documented On 0 9:26AM ; [facility], [facility] Lower Back Pain 10/09/2020 Horacio Zamudio MD Act farnaz Last Documented On 0 9:26AM ; [facility], [facility] Joint Pain, Localized in the Left Shoulder 07/20/2018 Vannessa Perez MD Active Last Documented On 8 8:04AM ; [facility], [facility] Plan of Treatment Pending Tests Order Diagnosis Results Due Ordering P rovider Radiology - MRI MRI Lumbar Spine Low back pain, unspecified 07/11/24 Horacio Zamudio MD Last Documented On 5 1:29PM ; [facility], [facility] Future Appointments Date Time Location Provi luis antonio Post Op 03/20/2025 11:00AM [facility] Horacio Zamudio MD Last Documented On 5 1:12PM ; [facility], [facility] Follow Up 04/23/2025 1:15PM [facility] Jayjay Wang PA-C Last Documented On 5 8:59AM ; [facility], [facility] Assessments Includes: Assessments from this encounter No Assessments Recorded Medical Equipment - Implanted Devices Includes: Current Devices No Medical Equipment Recorded Medications Includes: Medications discussed during this encounter and other current Medications Current Medications (continue as prescribed) Sertraline HCl 200 MG Oral Capsule 03/10/2025 Provid er: Diagnosis: Last Documented On 5 10:06AM By Arthur Loving ; [facility], [facility] Ranolazine ER 1000 MG Oral Packet 03/10/2025 Provide r: Diagnosis: Last Documented On 10:06AM By Arthur Loving ; [facility], [facility] Ranolazine ER 1000 MG Oral Tablet Extended Release 12 Hour 03/03/2025 Provider: Diagnosis: Last Documented On 5 8:18AM By Arthur Loving ; [facility], [facility] Folic Acid 1 MG Oral Tablet 02/25/2025 Provider: Quyen Vincent DO Diagnosis: Last Documented On 5 8:18AM By Arthur Loving ; [facility], [facility] Vitamin D (Ergocalciferol) 1 .25 MG (76958 UT) Oral Capsule 02/25/2025 Provider: Quyen Vincent DO Diagnosis: Last Documented On 5 8:18AM By Arthur Loving ; [facility], [facility] Sucralfate 1 GM/10ML Oral Suspension 01/14/2025 Prov ider: Diagnosis: Last Documented On 5 8:18AM By Arthur Loving ; [facility], [facility] oxyCODONE-Acetaminophen 5-325 MG Oral Tablet Provider: Horacio Zamudio MD Diagnosis: Last Documented On 5 8:18AM By Arthur Loving ; [facility], [facility] HumaLOG 100 UNIT/ML Injection Solution 12/13/2024 Pr ovider: Diagnosis: Last Documented On 5 8:18AM By Arthur Loving ; [facility], [facility] traMADol HCl 50 MG Oral Tablet 12/12/2024 Provider: Quyen Vincent DO Diagnosis: Last Documented On 5 8:18AM By Arthur Loving ; [facility], [facility] buPROPion HCl 75 MG Oral Tablet 12/09/2024 Provider: Diagnosis: Last Documented On 5 8:18AM By Arthur Loving ; [facility], [facility] amLODIPine Besylate 2.5 MG Oral Tablet 11/05/2024 Pr ovider: Quyen Vincent DO Diagnosis: Last Documented On 5 8:18AM By Arthur Loving ; [facility], [facility] Midodrine HCl 5 MG Oral Tablet 11/05/2024 Provider: Diagnosis: Last Documented On 5 8:18AM By Arthur Loving ; [facility], [facility] Pantoprazole Sodium 40 MG Oral Tablet Delayed Release 11/05/2024 Provider: Diagnosis: Last Documented On 5 8:18AM By Arthur Loving ; [facility], [facility] Gabapentin 300 MG Oral Capsule 06/12/2024 Provider: Georgina Marshall DO Diagnosis: Last Documented On 4 10:47AM By Deborah Gant ; [facility], [facility] Dexcom G6 Sensor Miscellaneous 06/10/2024 Provider: Diagnosis: Last Documented On 4 10:47AM By Deborah Gant ; [facility], [facility] Insulin Lispro 100 UNIT/ML Injection Solution 06/10/20 Provider: Diagnosis: Last Documented On 4 10:47AM By Deborah Gant ; [facility], [facility] tiZANidine HCl 4 MG Oral Tablet 06/05/2024 Provider: Quyen Vincent DO Diagnosis: Last Documented On 4 10:47AM By Deborah Gant ; [facility], [facility] metFORMIN HCl ER 500 MG Oral Tablet Extended Rel ease 24 Hour 06/05/2024 Provider: Diagnosis: Last Documented On 4 10:47AM By Deborah Gant ; [facility], [facility] Primidone 50 MG Oral Tablet 06/02/2024 Provider: Georgina Marshall DO Diagnosis: Last Documented On 4 10:47AM By Deborah Gant ; [facility], [facility] Promethazine HCl 25 MG Oral Tablet 05/29/2024 Provid er: Quyen Vincent DO Diagnosis: Last Documented On 4 10:47AM By Deborah Gant ; [facility], [facility] Atorvastatin Calcium 40 MG Oral Tablet 05/25/2024 Pr ovider: Diagnosis: Last Documented On 4 10:47AM By Deborah Gant ; [facility], [facility] Bisoprolol Fumarate 5 MG Oral Tablet 05/25/2024 Prov ider: Diagnosis: Last Documented On 4 10:47AM By Deborah Gant ; [facility], [facility] Jardiance 10 MG Oral Tablet 05/16/2024 Provider: Diagnosis: Last Documented On 4 10:47AM By Deborah Gant ; [facility], [facility] Brilinta 90 MG Oral Tablet 05/05/2024 Provider: Diagnosis: Last Documented On 4 10:47AM By Deborah Gant ; [facility] Aspirin Low Dose 81 MG Oral Tablet Delayed Release 10/2024 Provider: Diagnosis: Last Documented On 4 10:47AM By Deborah Gant ; [facility], [facility] Sertraline HCl 100 MG Oral Tablet 04/07/2024 Provide r: Quyen Davidsonas DO Diagnosis: Last Documented On 4 10:47AM By Deborah Gant ; [facility], [facility] Dexcom G6 Transmitter Miscellaneous 02/16/2024 Provi luis antonio: Diagnosis: Last Documented On 4 10:47AM By Deborah Gant ; [facility], [facility] NovoLOG 100 UNIT/ML Injection Solution 01/29/2024 Pr ovider: Diagnosis: Last Documented On 4 10:47AM By Deborah Gant ; [facility] Naproxen 500 MG Oral Tablet 01/11/2024 Provider: Diagnosis: Last Documented On 4 10:47AM By Deborah Gant ; [facility], [facility] Medications Administered Includes: Administered Medications from [...] Date Arthrodesis, combined posterior or posterolateral technique 55138 Spinal stenosis, lumbar region with neurogenic claudication, Spondylolisthesi s, lumbar region Horacio Zamudio MD [facility] 12/25/2024 Last Documented On 5 2:12PM ; [facility] INSERT SPINE FIXATION DEVICE 89162 Spinal stenosis, lumbar region with neurogenic claudication, Spondylolisthesis, lumbar region Horacio Zamudio MD [facility] 12/25/2024 Last Documented On 5 2:12PM ; [facility] Insertion of interbody cage each interspace 21043 Spinal stenosis, lumbar region with neurogenic claudication, Spondylolisthesis, lumbar region Horacio Zamudio MD [facility] 12/25/2024 Last Documented On 5 2:12PM ; [facility] SPINAL BONE ALLOGRAFT 26298 Spinal stenosis, lumbar region with neurogenic claudication, Spondylolisthesis, lumbar region Horacio Zamudio MD [facility] 12/25/2024 Last Documented On 5 2:12PM ; [facility] Laminectomy, facetectomy, or foraminotomy w/ decompression 89244 Spinal stenosis, lumbar region with neurogenic claudication, Spondylolisthesis, lumbar region Horacio Zamudio MD [facility] 12/25/2024 Last Documented On 5 2:12PM ; [facility] Medical History Includes: Medical History [...] Last Documented On 5 8:18AM [facility] Encounters Encounter Provider Location Date Check-In Time Check-Out Time Diagnosis [facility] Horacio Zamudio MD Surgery 01/2901/02/2025 10:00AM 11:59PM Insurance Includes: Active Insurance Policies Plan Name Member ID Group # Subscriber Relationship Effect farnaz Dates 1 - [employer] [id number] Jonathanujstine Delgado Self 11/27/2024 - Unknown Clinical Notes Includes: Clinical Notes from this encounter No Clinical Notes Recorded
--- OUTSIDE RECORDS SUMMARY | 2025-03-19 07:28 | XMS_ITS ---
Author Organization [facility] Address [address] [place] [address] Phone Care Team Providers Care Blaster Helper Name Role Phone Quyen Vincent DO Primary Care Provider [phone] Chris DE LA CRUZ, Vannessa Allison Unavailable [phone] Problems Includes: Active, inactive, and resolved Problems All Visits Onset Date Resolved Date Provider Condition S tatus Neck Pain 10/09/2020 Horacio Zamudio MD Active Last Documented On 0 9:26AM ; [facility] Lower Back Pain 10/09/2020 Horacio Zamudio MD Act farnaz Last Documented On 0 9:26AM ; [facility] Joint Pain, Localized in the Left Shoulder 07/20/2018 Vannessa Perez MD Active Last Documented On 8 8:04AM ; [facility], [facility] Joint Pain, Localized in the Knee 09/12/2013 Kale Zamudio MD Inactive Last Documented On 6 9:03AM ; [facility], [facility] Plan of Treatment Pending Tests Order Diagnosis Results Due Ordering P rovider Radiology - MRI MRI Shoulder 10/08/18 Comfort Perez MD Last Documented On 8 5:09PM ; [facility] Radiology - MRI MRI Lumbar Spine Low back pain, unspecifie d 07/11/24 Horacio Zamudio MD Last Documented On 5 1:29PM ; [facility], [facility] Future Appointments Date Time Location Provi luis antonio Post Op 03/20/2025 11:00AM [facility] ALATNAStephania Zamudio MD Last Documented On 5 1:12PM ; [facility] Follow Up 04/23/2025 1:15PM [facility] Lissette FUENTESALATNAJOSEMANUEL Wang PA-C Last Documented On 5 8:59AM [...] 03/10/2025 Last Documented On 5 12:59PM ; [facility] Overweight Post Op with Horacio Zamudio MD Last Documented On 5 9:42AM ; [facility] Overweight Post Op with Jayjay Wang PA-C 01/08/2025 Last Documented On 5 8:13AM ; [facility] Overweight Follow Up with Horacio Zamudio MD 07/18/2024 Last Documented On 5 1:28PM ; [facility] Overweight Physician Specified with Horacio Zamudio MD 06/27/2024 Last Documented On 5 1:29PM ; [facility] Instructions Includes: Instructions for all [...] weight Last Documented On 8 8:02AM ; [facility] Instructions for patient See PCP for weight loss plan Last Documented On 6 3:26PM ; [facility] Lose weight Last Documented On 6 3:26PM ; [facility] Instructions for patient See PCP for weight loss plan Last Documented On 6 8:59AM ; [facility] Lose weight Last Documented On 6 8:59AM ; [facility] Instructions for patient See PCP for weight loss plan Last Documented On 6 10:05AM ; [facility] Lose weight Last Documented On 6 10:05AM ; [facility], [facility] Instructions for patient See PCP for weight loss plan Last Documented On 6 2:24PM ; [facility] Lose weight Last Documented On 6 2:23PM ; [facility], [facility] Medical Equipment - Implanted Devices Includes: Current and historical Devices No Medical Equipment Recorded Medications Includes: Current and historical Medications Current Medications (continue as prescribed) Sertraline HCl 200 MG Oral Capsule 03/10/2025 Provid er: Diagnosis: Last Documented On 5 10:06AM By Arthur Loving ; [facility], [facility] Ranolazine ER 1000 MG Oral Packet 03/10/2025 Provide r: Diagnosis: Last Documented On 5 10:06AM By Arthur VARGAS [facility], [facility] Ranolazine ER 1000 MG Oral Tablet Extended Release 12 Hour 03/03/2025 Provider: Diagnosis: Last Documented On 5 8:18AM By Arthur Loving ; [facility], [facility] Folic Acid 1 MG Oral Tablet 02/25/2025 Provider: Quyen Vincent DO Diagnosis: Last Documented On 5 8:18AM By Arthur Loving ; [facility], [facility] Vitamin D (Ergocalciferol) 1 .25 MG (91541 UT) Oral Capsule 02/25/2025 Provider: Quyen Vincent DO Diagnosis: Last Documented On 5 8:18AM By Arthur Loving ; [facility] Sucralfate 1 GM/10ML Oral Suspension 01/14/2025 Prov ider: Diagnosis: Last Documented On 5 8:18AM By Arthur Loving ; [facility] oxyCODONE-Acetaminophen 5-325 MG Oral Tablet 5 Provider: Horacio Zamudio MD Diagnosis: Last Documented On 5 8:18AM By Arthur Loving ; [facility] HumaLOG 100 UNIT/ML Injection Solution 12/13/2024 Pr ovider: Diagnosis: Last Documented On 5 8:18AM By Arthur Loving ; [facility] traMADol HCl 50 MG Oral Tablet 12/12/2024 Provider: Quyen Vincent DO Diagnosis: Last Documented On 5 8:18AM By Arthur Loving ; [facility] buPROPion HCl 75 MG Oral Tablet 12/09/2024 Provider: Diagnosis: Last Documented On 5 8:18AM By Arthur Loving ; [facility] amLODIPine Besylate 2.5 MG Oral Tablet 11/05/2024 Pr ovider: Quyen Vincent DO Diagnosis: Last Documented On 5 8:18AM By Arthur Loving ; [facility] Midodrine HCl 5 MG Oral Tablet 11/05/2024 Provider: Diagnosis: Last Documented On 5 8:18AM By Arthur Loving ; [facility] Pantoprazole Sodium 40 MG Oral Tablet Delayed Release 11/05/2024 Provider: Diagnosis: Last Documented On 5 8:18AM By Arthur Loving ; [facility] Gabapentin 300 MG Oral Capsule 06/12/2024 Provider: Georgina Marshall DO Diagnosis: Last Documented On 4 10:47AM By Deborah Gant ; [facility], [facility] Dexcom G6 Sensor Miscellaneous 06/10/2024 Provider: Diagnosis: Last Documented On 4 10:47AM By Deborah Gant ; [facility] Insulin Lispro 100 UNIT/ML Injection Solution 06/10/20 Provider: Diagnosis: Last Documented On 4 10:47AM By Deborah Gant ; [facility], [facility] tiZANidine HCl 4 MG Oral Tablet 06/05/2024 Provider: Quyen Vincent DO Diagnosis: Last Documented On 4 10:47AM By Deborah Gant ; [facility], [facility] metFORMIN HCl ER 500 MG Oral Tablet Extended Rel ease 24 Hour 06/05/2024 Provider: Diagnosis: Last Documented On 4 10:47AM By Deborah Gant ; [facility], [facility] Primidone 50 MG Oral Tablet 06/02/2024 Provider: Georgina Marshall DO Diagnosis: Last Documented On 4 10:47AM By Deborah Gant ; [facility], [facility] Promethazine HCl 25 MG Oral Tablet 05/29/2024 Provid er: Quyen Vincent DO Diagnosis: Last Documented On 4 10:47AM By Deborah Gant ; [facility], [facility] Atorvastatin Calcium 40 MG Oral Tablet 05/25/2024 Pr ovider: Diagnosis: Last Documented On 4 10:47AM By Deborah Gant ; [facility], [facility] Bisoprolol Fumarate 5 MG Oral Tablet 05/25/2024 Prov ider: Diagnosis: Last Documented On 4 10:47AM By Deborah Gant ; [facility] Jardiance 10 MG Oral Tablet 05/16/2024 Provider: Diagnosis: Last Documented On 4 10:47AM By Deborah Gant ; [facility], [facility] Brilinta 90 MG Oral Tablet 05/05/2024 Provider: Diagnosis: Last Documented On 4 10:47AM By Deborah Gant ; [facility], [facility] Aspirin Low Dose 81 MG Oral Tablet Delayed Release 10/2024 Provider: Diagnosis: Last Documented On 4 10:47AM By Deborah Gant ; [facility], [facility] Sertraline HCl 100 MG Oral Tablet 04/07/2024 Provide r: Quyen Vincent DO Diagnosis: Last Documented On 4 10:47AM By Deborah Gant ; [facility], [facility] Dexcom G6 Transmitter Miscellaneous 02/16/2024 Provi luis antonio: Diagnosis: Last Documented On 4 10:47AM By Deborah Gant ; [facility], [facility] NovoLOG 100 UNIT/ML Injection Solution 01/29/2024 Pr ovider: Diagnosis: Last Documented On 4 10:47AM By Deborah Gant ; [facility], [facility] Naproxen 500 MG Oral Tablet 01/11/2024 Provider: Diagnosis: Last Documented On 4 10:47AM By Deborah Gant ; [facility], [facility] Past Medications on file Percocet 5-325 MG Oral Tablet 01/07/2025 - 01/17/2025 Provider: Horacio Zamudio MD Diagnosis: 1 tab every 6 hrs prn pain Last Documented On 5 2:53PM By Horacio Zamudio ; [facility], [facility] Percocet 5-325 MG Oral Tablet 12/25/2024 - 01/09/2025 Provider: Horacio Zamudio MD Diagnosis: 1 po q 4h prn pain Last Documented On 5 8:29AM By Horacio Zamudio ; [facility], [facility] Meloxicam 15 MG Oral Tablet 06/27/2024 - 08/26/2024 Pr ovider: Horacio Zamudio MD Diagnosis: Take one tablet my mouth once a day Last Documented On 4 11:02AM By Wendi Gibbons ; [facility], [facility] Dexcom G6 Transmitter Miscellaneous 05/14/2024 - 06/27 Provider: Diagnosis: Last Documented On 4 10:48AM By Deborah Gant ; [facility], [facility] Dexcom G6 Sensor Miscellaneous 02/16/2024 - 06/27/2024 Provider: Diagnosis: Last Documented On 4 10:48AM By Deborah Gant ; [facility] Brilinta 90 MG Oral Tablet 02/06/2024 - 06/27/2024 Pro vider: Diagnosis: Last Documented On 4 10:48AM By Deborah Gant ; [facility] traMADol HCl 50 MG Oral Tablet 05/07/2021 - 06/27/2024 Provider: Casper Negrete MD Diagnosis: Take 1 tablet every 8 hrs prn pain Last Documented On 4 10:45AM By Deborah Gant ; [facility], [facility] traMADol HCl 50 MG Oral Tablet 12/25/2020 - 03/25/2021 Provider: Casper Negrete MD Diagnosis: Take 1 tablet every 8 hrs prn pain Last Documented On 4:04PM By Casper Negrete ; [facility], [facility] Sertraline HCl 100 MG Oral Tablet 12/25/2020 - 024 Provider: Diagnosis: Last Documented On 4 10:45AM By Deborah Gant ; [facility], [facility] Tresiba 100 UNIT/ML Subcutaneous Solution 12/25/2020 - 06/27/2024 Provider: Diagnosis: Last Documented On 4 10:46AM By Deborah Gant ; [facility], [facility] NovoLIN 70/30 (70-30) 100 UN IT/ML Subcutaneous Suspension 12/17/2020 - 06/27/2024 Provider: Diagnosis: Last Documented On 4 10:46AM By Deborah Gant ; [facility], [facility] Atorvastatin Calcium 80 MG Oral Tablet 12/11/2020 - Provider: Diagnosis: Last Documented On 4 10:45AM By Deborah Gant ; [facility], [facility] metFORMIN HCl ER 500 MG Oral Tablet Extended Release 24 Hour 12/11/2020 - 06/27/2024 Provider: Diagnosis: Last Documented On 4 10:45AM By Deborah Gant ; [facility], [facility] Tresiba FlexTouch 200 UNIT/M L Subcutaneous Solution Pen-injector 12/11/2020 - 06/27/2024 Provider: Diagnosis: Last Documented On 4 10:45AM By Deborah Gant ; [facility], [facility] Jardiance 25 MG Oral Tablet 12/06/2020 - 06/27/2024 Pr ovider: Diagnosis: Last Documented On 4 10:46AM By Deborah Gant ; [facility] Dexamethasone Sodium Phosphate 4MG/ML Injection Solution 09/24/2018 - 10/24/2018 Provider: Vannessa song MD Diagnosis: 1 30 cc vial/ use as directe d for iontophoresis for physical therapy// Last Documented On 8 11:10AM By Maya Chisholm ; [facility] Valium 2MG Oral Tablet 09/24/2018 - 06/27/2024 Provide r: Vannessa Perez MD Diagnosis: one tablet 30 min prior to M RI take 2nd at start of MRI if needed Last Documented On 4 10:45AM By Deborah Gant ; [facility] Percocet 5-325 MG Tablet 08/30/2016 - 06/27/2024 Provi luis antonio: Horacio Zamudio MD Diagnosis: 1 tab every 12 hours Last Documented On 4 10:45AM By Deborah Gant ; [facility] Percocet 5-325 MG Tablet 08/11/2016 - 06/27/2024 Provi luis antonio: Horacio Zamudio MD Diagnosis: Take 1 tablet every 8 hrs prn pain Last Documented On 4 10:45AM By Deborah Gant ; [facility] Amitriptyline HCl 25 MG Tablet 07/18/2016 - 06/27/2024 Provider: Diagnosis: Last Documented On 4 10:46AM By Deborah Gant ; [facility] Jardiance 25 MG Tablet 07/18/2016 - 06/27/2024 Provide r: Diagnosis: Last Documented On 4 10:46AM By Deborah Gant ; [facility] MetFORMIN HCl 1000 MG Tablet 07/18/2016 - 06/27/2024 P rovider: Diagnosis: Last Documented On 4 10:46AM By Deborah Gant ; [facility] Metoprolol Tartrate 50 MG Tablet 07/18/2016 - 06/27/20 Provider: Diagnosis: Last Documented On 4 10:46AM By Deborah Gant ; [facility] Sertraline HCl 100 MG Tablet [...] On 3 6:45PM By Laura Cee ; [facility] ARTHROCREAM PLUS TDG 05/14/2013 - [...] er: Vannessa Perez MD Diagnosis: bhcalled to [phone] Last Documented On 9 3:34PM By Rc [...] 7 9:11AM By Tatum 3 User ; [facility] DENIED EX MISC 06/07/2007 - 06/08/2007 Provider: Rere Aranda MD Diagnosis: pt can take tylenol 500 mg 1 -2 q 4-6 hrs and advil or ibuprofen 2 of them 3 x a day until f/u for mri results/ left message with patients for h Last Documented On 7 9:39AM By Lesley Escamilla ; [facility], [facility] Medications Administered Includes: Administered Medications in patient's chart No Administered Medications Recorded Vital Signs Includes: Vital Signs from 03/19/2024 through 03/19/2025 Vital Name 03/10/2025 09:19A 03/10/2025 09:19A 02/06/2025 [...] Last Documented: On 06/27/2024 10:50A M ; [facility] Results Includes: Results from 03/19/2024 through 03/19/2025 No Results Recorded For Specified Dates History of Present Illness History of Present Illness not supported for this document type No History of Present Illness Recorded Social History Description Last Updated Recent change in diet diabetic 4 Last Documented On 5 1:29PM ; [facility] Not a current smoker. 06/27/2024 Last Documented On 5 1:29PM ; [facility] No caffeine use 07/16/2021 Last Documented On 1 2:35PM ; [facility], [facility] No recent change in diet 07/16/2021 Last Documented On 1 2:35PM ; [facility] Not a current smoker. 07/16/2021 Last Documented On 1 2:35PM ; [facility] Not using alcohol 07/16/2021 Last Documented On 1 2:35PM ; [facility], [facility] Not using drugs 07/16/2021 Last Documented On 1 2:35PM ; [facility] Non-smoker 11/30/2020 Last Documented On 1 6:23PM ; [facility], [facility] No tobacco use 07/20/2018 Last Documented On 8 8:49AM ; [facility] Smoking status : Former smoker 8 Last Documented On 8 8:49AM ; [facility], [facility] Not a current smoker 07/20/2018 Last Documented On 8 8:49AM ; [facility] Not exercising regularly 10/13/2016 Last Documented On 6 1:33PM ; [facility], [facility] Procedures and Surgical History Includes: Procedures from 03/19/2024 through 03/19/2025 Procedures Code Diagnosis Performing Provider Service Location Service Date X-RAY EXAM OF NECK SPINE 2 VIEWS 68592 Radiculopathy, cervical region Jayjay Wang PA-C [facility] 03/10/2025 Last Documented On 5 12:42PM ; [facility] X-RAY EXAM OF LOWER SPINE 2-3 VIEWS LIMITED 84987 Fusion of spine, lumbar region Horacio Zamudio MD [facility] 02/06/2025 Last Documented On 5 4:51PM ; [facility] X-RAY EXAM OF LOWER SPINE 2-3 VIEWS LIMITED 04514 Spinal stenosis, lumbar region with neurogenic claudication, Spondylolisthesis, lumbar region Jayjay Wang PA-C [facility] 01/08/2025 Last Documented On 5 9:23AM ; [facility] Laminectomy, facetectomy, or foraminotomy w/ decompression (Corporate Travel Coordinator surgeon) 41683 Spinal stenosis, lumbar region with neurogenic claudication, Spondylolisthesis, lumbar region [facility] 12/25/2024 Last Documented On 5 4:42PM ; [facility] SPINAL BONE ALLOGRAFT (Corporate Travel Coordinator surgeon) 87418 Spinal stenosis, lumbar region with neurogenic claudication, Spondylolisthesis, lumbar region [facility] 12/25/2024 Last Documented On 5 4:42PM ; [facility] Insertion of interbody cage each interspace (Corporate Travel Coordinator surgeon) 67824 Spinal stenosis, lumbar region with neurogenic claudication, Spondylolisthesis, lumbar region [facility] 12/25/2024 Last Documented On 5 4:42PM ; [facility] Arthrodesis, combined posterior or posterolateral technique (Corporate Travel Coordinator surgeon) 28411 Spinal stenosis, lumbar region with neurogenic claudication, Spondylolisthesis, lumbar region [facility] 12/25/2024 Last Documented On 5 4:42PM ; [facility] Laminectomy, facetectomy, or foraminotomy w/ decompression 53580 Spinal stenosis, lumbar region with neurogenic claudication, Spondylolisthesis, lumbar region Horacio Zamudio MD [facility] 12/25/2024 Last Documented On 5 2:12PM ; [facility] SPINAL BONE ALLOGRAFT 30702 Spinal stenosis, lumbar region with neurogenic claudication, Spondylolisthesis, lumbar region Horacio Zamudio MD [facility] 12/25/2024 Last Documented On 5 2:12PM ; [facility] Insertion of interbody cage each interspace 99848 Spinal stenosis, lumbar region with neurogenic claudication, Spondylolisthesis, lumbar region Horacio Zamudio MD [facility] 12/25/2024 Last Documented On 5 2:12PM ; [facility] INSERT SPINE FIXATION DEVICE 71018 Spinal stenosis, lumbar region with neurogenic claudication, Spondylolisthesis, lumbar region Horacio Zamudio MD [facility] 12/25/2024 Last Documented On 5 2:12PM ; [facility] Arthrodesis, combined posterior or posterolateral technique 72726 Spinal stenosis, lumbar region with neurogenic claudication, Spondylolisthesis, lumbar region Horacio Zamudio MD [facility] 12/25/2024 Last Documented On 5 2:12PM ; [facility] INSERT SPINE FIXATION DEVICE (Corporate Travel Coordinator surgeon) 91675 Spinal stenosis, lumbar region with neurogenic claudication, Spondylolisthesis, lumbar region Ever Saldaña PA-C [facility] 12/25/2024 Last Documented On 5 4:42PM ; [facility] MRI LUMBAR SPINE W/O DYE 65269 Low back pain, unspecified Horacio Zamudio MD [facility] 07/16/2024 Last Documented On 4 9:54PM ; [facility] X-RAY EXAM OF LOWER SPINE 2-3 VIEWS LIMITED 38855 Other low back pain Horacio Zamudio MD [facility] 06/27/2024 Last Documented On 4 11:14AM ; [facility] Surgical History Last Updated History of back surgery L4-5 Open Decomp ression & Fusion 12/25/24 02/11/2025 Last Documented On 5 9:42AM ; [facility] Past Surgical History: left elbow surger y 02/11/2025 Last Documented On 5 9:42AM ; [facility] History of History of Gallbladder 2023 Last Documented On 5 1:29PM ; [facility], [facility] History of total knee arthroplasty 06/27 Last Documented On 5 1:29PM ; [facility], [facility] History of appendectomy 10/13/2016 Last Documented On 6 1:33PM ; [facility], [facility] History of heart surgery 10/13/2016 Last Documented On 6 1:33PM ; [facility], [facility] History of hernia repair 10/13/2016 Last Documented On 6 1:33PM ; [facility], [facility] Medical History Includes: Medical History in patient's chart Description Last Updated History of arthritis 06/27/2024 Last Documented On 5 1:29PM ; [facility], [facility] History of Heartburn / Acid Reflux 06/27 Last Documented On 5 1:29PM ; [facility], [facility] History of Hypertension 06/27/2024 Last Documented On 5 1:29PM ; [facility], [facility] History of Sleep Apnea 06/27/2024 Last Documented On 5 1:29PM ; [facility], [facility] Use of CPAP 06/27/2024 Last Documented On 5 1:29PM ; [facility], [facility] No recent immunization for pneumococcal pneumonia 07/16/2021 Last Documented On 1 2:35PM ; [facility], [facility] A recent immunization for flu 11/30/2020 Last Documented On 1 6:23PM ; [facility], [facility] Back surgery L4-L5 Microdecompression Last Documented On 1 6:23PM ; [facility], [facility] History of Arthroscopy Left Elbow 2020 Last Documented On 1 6:23PM ; [facility] left elbow surgery 07/20/2018 Last Documented On 8 8:49AM ; [facility], [facility] Arthritic joint problems 10/13/2016 Last Documented On 6 1:33PM ; [facility], [facility] Gallbladder disease 10/13/2016 Last Documented On 6 1:33PM ; [facility], [facility] History of depression 10/13/2016 Last Documented On 6 1:33PM ; [facility] History of diabetes mellitus 10/13/2016 Last Documented On 6 1:33PM ; [facility], [facility] History of heart disease 10/13/2016 Last Documented On 6 1:33PM ; [facility], [facility] Intermittent hypertension 10/13/2016 Last Documented On 6 1:33PM ; [facility], [facility] Family History Includes: Family History in patient's chart Description Last Updated Diabetes mellitus 11/30/2020 Last Documented On 1 6:23PM ; [facility], [facility] Family history of heart disease 11/30/19 21 Last Documented On 1 6:23PM ; [facility], [facility] Family history of hypertension 1 Last Documented On 1 6:23PM ; [facility], [facility] lupus 07/20/2018 Last Documented On 8 8:49AM ; [facility], [facility] Paternal history of diabetes mellitus Last Documented On 8 8:49AM ; [facility], [facility] Maternal history of diabetes mellitus Last Documented On 8 8:49AM ; [facility], [facility] Family history of diabetes mellitus 09/27 Last Documented On 6 1:33PM ; [facility], [facility] Maternal history of hypertension 016 Last Documented On 6 1:33PM ; [facility], [facility] Review of Systems Review of [...] 03/31/2006 Active Last Documented On 8:18AM ; [facility] Encounters Includes: Encounters from 03/19/2024 through 03/19/2025 Encounter Provider Location Date Check-In Time Check-Out Time Diagnosis NEW PROBLEM/EST PT Jayjay Wang PA-C [facility] 03/10/20 25 8:12AM 9:01AM Overweight Post Op Horacio Zamudio MD [facility] 02/07/20 25 12:53PM 1:13PM Overweight Post Op Jayjay Wang PA-C [facility] 01/08/20 25 1:27PM 1:59PM Overweight [facility] Horacio Zamudio MD Surgery 12/25/19 25 01/02/2025 10:00AM 07/18/2024 11:59PM [Patient Encounter] Horacio Zamudio MD 12/25/19 25 07/18/2024 8:29AM 07/18/2024 11:59PM [Patient Encounter] Horacio Zamudio MD 12/13/19 25 07/18/2024 11:18AM 07/18/2024 11:59PM Follow Up Horacio Zamudio MD [facility] 07/18/20 24 9:39AM 10:50AM Overweight MRI [facility] 07/16/20 24 1:09PM 1:35PM Physician Specified Horacio Zamudio MD [facility] 06/27/20 10:41AM 11:03AM Overweight Insurance Includes: Active Insurance Policies Plan Name Member ID Group # Subscriber Relationship Effect farnaz Dates 1 - [employer] [id number] Jonathan Delgado Self 11/27/2024 - Unknown Clinical Notes Includes: Signed Clinical Notes starting from 11/10/2022 * Progress note Date Encounter Last Documented by 03/10/2025 NEW PROBLEM/EST PT Last document ed on 03/10/2025; 12:59 PM, Jayjay Wang PA-C; [facility] Active Problems & Conditions - [...] to 710 pain he has tried some [id number] ibuprofen and lidocaine patches which do helps [...] refills - Vitamin D (Ergocalciferol) 1.25 MG (39761 UT) Oral Capsule 84 days, 0 refills [...] Previous Tests Imaging: CT Scan: CT scan [facility]. Available previous imaging studies were reviewed Available [...] Care Team - Quyen Vincent DO - [employer] Health Reminders - Assess BMI satisfied 03/10/2025. - Assess Tobacco Use satisfied 07/20/2018. - Follow Up Plan BMI Management satisfied 03/10/2025. * Progress note Date Encounter Last Documented by 02/06/2025 Post Op Last documented on 02/11/2025; 9:42 AM, Horacio Zamudio MD; [facility], [facility] Active Problems & Conditions - [...] Previous Tests Imaging: CT Scan: CT scan [facility]. Available previous imaging studies were reviewed Available [...] Care Team - Quyen Vincent DO - [employer] Health Reminders - Assess BMI satisfied 02/06/2025. - Assess Tobacco Use satisfied 02/06/2025. - Follow Up Plan BMI Management satisfied 02/06/2025. * Progress note Date Encounter Last Documented by 01/08/2025 Post Op Last documented on 01/13/2025; 8:13 AM, Jayjay Wang PA-C; [facility], [facility] Active Problems & Conditions - [...] Previous Tests Imaging: CT Scan: CT scan [facility]. Available previous imaging studies were reviewed Available [...] Care Team - Quyen Vincent DO - [employer] Health Reminders - Assess BMI satisfied 01/08/2025. - Assess Tobacco Use satisfied 01/08/2025. - Follow Up Plan BMI Management satisfied 01/08/2025. * Progress note Date Encounter Last Documented by 07/18/2024 Follow Up Last documented on 12/13/2024; 1:28 PM, Horacio Zamudio MD; [facility], [facility] Active Problems & Conditions - [...] Previous Tests Imaging: CT Scan: CT scan [facility]. Available previous imaging studies were reviewed Available [...] Care Team - Quyen Vincent DO - [employer] Health Reminders - Assess BMI satisfied 07/18/2024. - Assess Tobacco Use satisfied 07/20/2018. - Follow Up Plan BMI Management satisfied 07/18/2024. * Progress note Date Encounter Last Documented by 06/27/2024 Physician Specified Last documen jose guadalupe on 12/13/2024; 1:29 PM, Horacio Zamudio MD; [facility], [facility] Active Problems & Conditions - [...] Previous Tests Imaging: CT Scan: CT scan [facility]. Available previous imaging studies were reviewed Available [...] Care Team - Quyen Vincent DO - [employer] Health Reminders - Assess BMI satisfied 06/27/2024. - Assess Tobacco Use satisfied 07/20/2018. - Follow Up Plan BMI Management satisfied 06/27/2024.
--- NOTE | 2025-03-19 07:31 | MR_ITS ---
FINAL REPORT TECHNIQUE: Multiplanar and multisequence imaging of the brain was obtained without contrast. CLINICAL HISTORY: MEMORY LOSS, CONFUSION, DIZZINESS, FREQUENT FALLS episodes of dizziness and passing out x5 months COMPARISON: 07/30/2024 FINDINGS: Brain parenchymal: There is no mass effect or midline shift. There are a few small punctate foci of increased signal in the periventricular white matter, that likely represent very minimal changes of chronic microvascular disease. The cerebellum and brainstem are without acute abnormality. Ventricles: The ventricles are symmetric in size and configuration without hydrocephalus. Extra-axial spaces: No extra-axial fluid collections. Diffusion imaging: No areas of restricted diffusion to suggest acute infarct. Flow voids: Flow voids within the major intracranial vessels are preserved. Soft tissues: Soft tissues are without acute abnormality. IMPRESSION: No acute intracranial abnormality. Reviewed, Interpreted and Dictated by Kecia Jurado MD Transcribed by Meg Hurd Authenticated and [facility]
== END 2025-03-19 23:59 | disposition home or self-care (01) ==
LOC: RAD 07:26
PROVIDERS: PCP Family Medicine; Visit Provider Family Medicine
DX: R42 Dizziness and giddiness (principal); R41.3 Other amnesia; R41.0 Disorientation, unspecified; R29.6 Repeated falls
CPT/HCPCS: 70551

== ENCOUNTER 2025-04-29 11:43 | Outpatient (CLI) | payer MEDICAID, SELFPAY ==
--- OUTSIDE RECORDS SUMMARY | 2025-04-29 11:45 | XMS_ITS | Data Portability ---
Author Organization [facility] [place] - [place] & JOSÉ Toribio ADMIN Address [address] [place] [id number] Care Team Providers Care Agronomist Name Role Phone QUYEN DELACRUZ Primary Care Provider Assessment Encounter Date Assessment Date Assessment LastModified [...] Organization Details Last Modified Time Details Appointments None recorded. Lab gastrointe stinal pathogens panel, PCR, stool 2023 024 FIDEL Duggan, [address], [address], [place], [address], 4 16:27:23 calprotect in, stool 2023 024 FIDEL Duggan, [address], [address], [place], [address], 4 07:16:57 O&P (ova & parasites) , stool 2023 024 FIDEL Duggan, [address], [address], [place], [address], 4 07:16:59 fecal fat, qualitativ e, stool 2023 024 FIDEL Urban, [address], [address], [place], [address], 4 07:16:56 ESR (erythrocy te sedimentat ion rate), blood 2023 024 FIDEL Lab[facility], [address], [address], [place], [address], 4 11:15:28 C-reactive protein, quantitati ve, serum or plasma 2023 024 [email or web address] [facility], [address], [address], [place], [address], 4 15:39:56 H pylori Ag, stool 2023 024 FIDEL [facility], [address], [address], [place], [address], 4 08:28:00 pancreatic elastase, quant, stool 2023 024 FIDEL [facility], [address], [address], [place], [address], 4 07:16:58 phosphatid ylethanol, QN, blood 2023 024 FIDEL [facility], [address], [address], [place], [address], 4 11:15:23 HbA1c (hemoglobi n A1c), blood 2023 024 FIDEL [facility], [address], [address], [place], [address], 4 11:15:27 amylase + lipase, serum 2023 024 FIDEL [facility], [address], [address], [place], [address], 4 11:15:24 calcium, ionized, quant ISE, serum or plasma 2023 024 FIDEL [facility], [address], [address], [place], [address], 4 11:15:29 lipid panel, serum 2023 024 FIDEL [facility], [address], [address], [place], [address], 4 11:15:22 igg, subclass 4, quantitati ve, serum 2023 024 FIDEL [facility], [address], [address], [place], [address], 4 11:15:30 7-alpha hydroxy-4- cholesten- 3-one, QN, serum or plasma 2023 024 JENISON [facility], [address], [facility] [address], [place], [address], 4 11:15:26 CMP, serum or plasma 2023 024 JENISON [facility], [address], [facility] [address], [place], [address], 4 11:15:21 CMP, serum or plasma [address] (Lab Registration) , [address] [place] [address] [place], [address], 4 09:38:57 CBC w/ auto diff [address] (Lab Registration) , [address] [place] [address] [place], [address], 4 09:38:57 Referral None recorded. Procedures None recorded. Surgeries None recorded. Imaging CT, abdomen, w/ contrast 2023 024 [facility] (Central Scheduling), [address] [place] [address] [place], [address], 4 09:51:43 Medication Orders sucralfate 100 mg/mL oral suspension 2024 025 [email or web address] [facility]/Pharmacy #[id number], [address] [place], [address], 5 09:51:45 pantoprazo le 40 mg tablet,del ayed release 2023 024 [facility]/Pharmacy #3016, [address] [place], [address], 4 15:41:35 colestipol 1 gram tablet 2023 024 [facility]/Pharmacy #3016, [address] [place], [address], 11:07:18 gabapentin 300 mg capsule 2023 024 [facility]/Pharmacy #3016, [address] [place], [address], 10:21:21 primidone 50 mg tablet 2023 024 [facility]/Pharmacy #3016, [address] [place], [address], 10:05:59 Patient TargetsNo targets recorded. Patient Instructions Encounter Date Encounter Id Patient Instructions Last Modified By Organization Details Last Modified Time 01/14/2025 [id number] f/u 8 weeks [email or web address] Not available 21:53:52 Reason for Referral None Reported. Results Created Date Observation Date Name Description Value Unit Range Abnormal Flag Note LastModifiedBy Organization Detail LastModifiedTime 06/25/20 24 06/25/2024 CBC W/ AUTO DIFF WBC 7.54 K/uL 4.5-11 .5 Not Available [facility] (Pre[facility]Op [facility]) [address] [place] [address] [place], [address], 06/25/2024 15:47:19 06/25/20 24 06/25/2024 CBC W/ AUTO DIFF RBC 5.37 M/uL 4.0-5. 4 Not Available [facility] (Pre-Op Clinic) [address] [place] [address] [place], [address], 06/25/2024 15:47:19 06/25/20 24 06/25/2024 CBC W/ AUTO DIFF HGB 14.9 g/dL 14.0-1 8.0 Not Available [facility] (Pre-Op Clinic) [address] [place] [address] [place], [address], 06/25/2024 15:47:19 06/25/20 24 06/25/2024 CBC W/ AUTO DIFF HCT 45.8 % 40-54 Not Available [facility] (Pre-Op Clinic) [address] [place] [address] [place], [address], 06/25/2024 15:47:19 06/25/20 24 06/25/2024 CBC W/ AUTO DIFF MCV 85.3 fL 80.0-1 00.0 Not Available [facility] (Pre-Op Clinic) [address] [place] [address] [place], [address], 06/25/2024 15:47:19 06/25/20 24 06/25/2024 CBC W/ AUTO DIFF MCH 27.7 pg 26.0-3 2.0 Not Available [facility] (Pre-Op [facility]) [address] [place] [address] [place], [address], 06/25/2024 15:47:19 06/25/20 24 06/25/2024 CBC W/ AUTO DIFF MCHC 32.5 g/dL 32.0-3 6.0 Not Available [facility] (Pre-Op [facility]) [address] [place] [address] [place], [address], 06/25/2024 15:47:19 06/25/20 24 06/25/2024 CBC W/ AUTO DIFF RDW 13.9 % 11.5-1 4.5 Not Available [facility] (Pre-Op [facility]) [address] [place] [address] [place], [address], 06/25/2024 15:47:19 06/25/20 24 06/25/2024 CBC W/ AUTO DIFF platelet count 166 K/uL 142-42 4 Not Available [facility] (Pre-Op [facility]) [address] [place] [address] [place], [address], 06/25/2024 15:47:19 06/25/20 24 06/25/2024 CBC W/ AUTO DIFF MPV 10.5 fL 6.8-10 .2 high Not Available [facility] (Pre-Op [facility]) [address] [place] [address] [place], [address], 06/25/2024 15:47:19 06/25/20 24 06/25/2024 CBC W/ AUTO DIFF neutrophil % 73.6 % 50-70 high Not Available [facility] (Pre-Op Clinic) [address] [facility] [place], [address], 06/25/2024 15:47:19 06/25/20 24 06/25/2024 CBC W/ AUTO DIFF lymphocyte % 14.6 % 18.0-4 2.0 low Not Available [facility] (Pre-Op [facility]) [address] [place], [address], 06/25/2024 15:47:19 06/25/20 24 06/25/2024 CBC W/ AUTO DIFF monocyte % 7.4 % 2.0-11 .0 Not Available [facility] (Pre[facility]Op [facility]) [address] [place] [address] [place], [address], 06/25/2024 15:47:19 06/25/20 24 06/25/2024 CBC W/ AUTO DIFF eosinophil % 3.2 % 1.0-3. 0 high Not Available [facility] ([facility]Op [facility]) [address] [facility] [place], [address], 06/25/2024 15:47:19 06/25/20 24 06/25/2024 CBC W/ AUTO DIFF basophil % 0.8 % 0.0-2. 0 Not Available [facility] ([facility]Op [facility]) [address] [place], [address], 06/25/2024 15:47:19 06/25/20 24 06/25/2024 CBC W/ AUTO DIFF immature granulocytes % 0.4 % 0.0-0. 8 Not Available [facility] ([facility]Op [facility]) [address] [place], [address], 06/25/2024 15:47:19 06/25/20 24 06/25/2024 CBC W/ AUTO DIFF nucleated red blood cells % 0.0 % Not Available [facility] ([facility]Op [facility]) [address] [place], [address], 06/25/2024 15:47:19 06/25/20 24 06/25/2024 CBC W/ AUTO DIFF neutrophil # 5.55 K/uL Not Available [facility] ([facility]Op [facility]) [address] [place] [address] [place], [address], 06/25/2024 15:47:19 06/25/20 24 06/25/2024 CBC W/ AUTO DIFF lymphocyte # 1.10 K/uL Not Available [facility] ([facility]Op [facility]) [address] [place] [address] [place], [address], 06/25/2024 15:47:19 06/25/20 24 06/25/2024 CBC W/ AUTO DIFF monocyte # 0.56 K/uL Not Available [facility] (Pre-Op Clinic) [address] [place] [address] [place], [address], 06/25/2024 15:47:19 06/25/20 24 06/25/2024 CBC W/ AUTO DIFF eosinophil # 0.24 K/uL Not Available [facility] (Pre-Op [facility]) [address] [place] [address] [place], [address], 06/25/2024 15:47:19 06/25/20 24 06/25/2024 CBC W/ AUTO DIFF basophil # 0.06 K/uL Not Available [facility] (Pre[facility]Op [facility]) [address] [place] [address] [place], [address], 06/25/2024 15:47:19 06/25/20 24 06/25/2024 CBC W/ AUTO DIFF immature gramulocytes # 0.03 K/uL Not Available [facility] (Pre[facility]Op [facility]) [address] [place] [address] [place], [address], 06/25/2024 15:47:19 06/25/20 24 06/25/2024 CBC W/ AUTO DIFF nucleated red blood cells # 0.00 k/uL Not Available [facility] (Pre[facility]Op [facility]) [address] [facility] [place], [address], 06/25/2024 15:47:19 06/25/20 24 06/25/2024 CBC W/ AUTO DIFF manual differential NO Not Available [facility] ([facility]Op [facility]) [address] [place] [address] [place], [address], 06/25/2024 15:47:19 06/25/20 24 06/25/2024 CBC W/ AUTO DIFF note Unles s other rey noted testi ng perfo rmed at: [facility] [address] [place] [address] Jose zamora MD Not Available [facility] (Pre-Op [facility]) [address] [place] [address] [place], [address], 06/25/2024 15:47:19 06/25/20 24 06/25/2024 COMP METAB OLIC PANEL sodium 141 mmol/ L 137-14 7 Not Available [facility] (Pre[facility]Op [facility]) [address] [place] [address] [place], [address], 06/25/2024 17:12:06 06/25/20 24 06/25/2024 COMP METAB OLIC PANEL potassium 4.6 mmol/ L 3.5-5. 1 Not Available [facility] (Pre[facility]Op [facility]) [address] [place] [address] [place], [address], 06/25/2024 17:12:06 06/25/20 24 06/25/2024 COMP METAB OLIC PANEL chloride 101 mmol/ L 98-110 Not Available [facility] (Pre[facility]Op [facility]) [address] [place] [address] [place], [address], 06/25/2024 17:12:06 06/25/20 24 06/25/2024 COMP METAB OLIC PANEL carbon dioxide 23 mmol/ L 21-30 Not Available [facility] ([facility]Op [facility]) [address] [facility] [place], [address], 06/25/2024 17:12:06 06/25/20 24 06/25/2024 COMP METAB OLIC PANEL anion gap 17 mmol/ L 6-14 high Not Available [facility] ([facility]Op [facility]) [address] [place] [address] [place], [address], 06/25/2024 17:12:06 06/25/20 24 06/25/2024 COMP METAB OLIC PANEL glucose 312 mg/dL 70-115 high Not Available [facility] ([facility]Op [facility]) [address] [place] [address] [place], [address], 06/25/2024 17:12:06 06/25/20 24 06/25/2024 COMP METAB OLIC PANEL BUN 28 mg/dL 9-20 high Not Available [facility] (Pre[facility]Op [facility]) [address] [place] [address] [place], [address], 06/25/2024 17:12:06 06/25/20 24 06/25/2024 COMP METAB OLIC PANEL creatinine 1.1 mg/dL 0.5-1. 5 Not Available [facility] (Pre[facility]Op [facility]) [address] [place] [address] [place], [address], 06/25/2024 17:12:06 06/25/20 24 06/25/2024 COMP METAB OLIC PANEL BUN/creatini ne ratio 25 ratio 10-20 high Not Available [facility] ([facility]Op [facility]) [address] [place] [address] [place], [address], 06/25/2024 17:12:06 06/25/20 24 06/25/2024 COMP METAB OLIC PANEL glom filtration rate 80 mL/mi n >60- Not Available [facility] ([facility]Op [facility]) [address] [place] [address] [place], [address], 06/25/2024 17:12:06 06/25/20 24 06/25/2024 COMP METAB OLIC PANEL osmolality (calculated) 310 mosmo l/kg 275-30 1 high OSMOL ALITY IS A CALCU LATIO N UTILI ZING THE SERUM /PLAS MA SODIU M, GLUCO SE AND UREA NITRO GEN (BUN) LEVEL S. FOR THE MOST ACCUR ATE RESUL T A MEASU RED SERUM OSMOL ALITY IS SUGDANDRE GUNND. Not Available [facility] (Pre[facility]Op [facility]) [address] [place] [address] [place], [address], 06/25/2024 17:12:06 06/25/20 24 06/25/2024 COMP METAB OLIC PANEL total protein 6.9 g/dL 6.2-8. 2 Not Available [facility] (Pre[facility]Op [facility]) [address] [place] [address] [place], [address], 06/25/2024 17:12:06 06/25/20 24 06/25/2024 COMP METAB OLIC PANEL albumin 4.6 g/dL 3.5-5. 0 Not Available [facility] ([facility]Op [facility]) [address] [place] [address] [place], [address], 06/25/2024 17:12:06 06/25/20 24 06/25/2024 COMP METAB OLIC PANEL calcium 9.5 mg/dL 8.5-10 .8 Not Available [facility] (Pre-Op Clinic) [address] [place] [address] [place], [address], 06/25/2024 17:12:06 06/25/20 24 06/25/2024 COMP METAB OLIC PANEL bilirubin total 0.5 mg/dL 0.2-1. 3 Not Available [facility] (Pre[facility]Op [facility]) [address] [place] [address] [place], [address], 06/25/2024 17:12:06 06/25/20 24 06/25/2024 COMP METAB OLIC PANEL AST (SGOT) 36 IU/L 17-59 Not Available [facility] (Pre-Op [facility]) [address] [place] [address] [place], [address], 06/25/2024 17:12:06 06/25/20 24 06/25/2024 COMP METAB OLIC PANEL ALT (SGPT) 27 IU/L 0-50 Pleas e note new refer ence inter farrah for ALT. Due to a recen t manuf actur er metho dolog y kiel hammond, the refer ence inter farrah for ALT is lower effec tive March 18, 2021. Not Available [facility] ([facility]Op [facility]) [address] [place] [address] [place], [address], 06/25/2024 17:12:06 06/25/20 24 06/25/2024 COMP METAB OLIC PANEL alk phosphatase 107 IU/L 38-126 Not Available [facility] (Pre-Op Clinic) [address] [place] [address] [place], [address], 06/25/2024 17:12:06 06/25/20 24 06/25/2024 COMP METAB OLIC PANEL note Unles s other rey noted testi ng perfo rmed at: [facility] [address] [place] [address] Jose zamora MD Not Available [facility] (Pre-Op [facility]) [address] [place] [address] [place], [address], 06/25/2024 17:12:06 08/15/20 24 08/16/2024 COMP. METAB OLIC PANEL (14) glucose 114 mg/dL 70-99 above high normal Not Available [facility] ([facility]) [address] [place], [address], 09/04/2024 11:15:21 08/15/20 24 08/16/2024 COMP. METAB OLIC PANEL (14) BUN 30 mg/dL 6-24 above high normal Not Available [facility] ([facility]) [address] [place], [address], 09/04/2024 11:15:21 08/15/20 24 08/16/2024 COMP. METAB OLIC PANEL (14) creatinine 1.15 mg/dL 0.76-1 .27 normal Not Available [facility] ([facility]) [address] [facility] [place], [address], 09/04/2024 11:15:21 08/15/20 24 08/16/2024 COMP. METAB OLIC PANEL (14) eGFR 76 mL/mi n/1.7 3 >59 normal Not Available [facility] ([facility]) [address] [place], [address], 09/04/2024 11:15:21 08/15/20 24 08/16/2024 COMP. METAB OLIC PANEL (14) BUN/creatini ne ratio 26 9-20 above high normal Not Available [facility] ([facility]) [address] [place], [address], 09/04/2024 11:15:21 08/15/20 24 08/16/2024 COMP. METAB OLIC PANEL (14) sodium 145 mmol/ L 134-14 4 above high normal Not Available [facility] ([facility]) [address] [place], [address], 09/04/2024 11:15:21 08/15/20 24 08/16/2024 COMP. METAB OLIC PANEL (14) potassium 4.6 mmol/ L 3.5-5. 2 normal Not Available [facility] ([facility]) [address] [place], [address], 09/04/2024 11:15:21 08/15/20 24 08/16/2024 COMP. METAB OLIC PANEL (14) chloride 105 mmol/ L 96-106 normal Not Available [facility] ([facility]) [address] [place], [address], 09/04/2024 11:15:21 08/15/20 24 08/16/2024 COMP. METAB OLIC PANEL (14) carbon dioxide, total 24 mmol/ L 20-29 normal Not Available [facility] ([facility]) [address] [place], [address], 09/04/2024 11:15:21 08/15/20 24 08/16/2024 COMP. METAB OLIC PANEL (14) calcium 9.3 mg/dL 8.7-10 .2 normal Not Available [facility] ([facility]) [address] [facility] [place], [address], 09/04/2024 11:15:21 08/15/20 24 08/16/2024 COMP. METAB OLIC PANEL (14) protein, total 6.5 g/dL 6.0-8. 5 normal Not Available [facility] ([facility]) [address] [facility] [place], [address], 09/04/2024 11:15:21 08/15/20 24 08/16/2024 COMP. METAB OLIC PANEL (14) albumin 4.3 g/dL 3.8-4. 9 normal Not Available [facility] ([facility]) [address] [facility] [place], [address], 09/04/2024 11:15:21 08/15/20 24 08/16/2024 COMP. METAB OLIC PANEL (14) globulin, total 2.2 g/dL 1.5-4. 5 Not Available [facility] ([facility]) [address] [facility] [place], [address], 09/04/2024 11:15:21 08/15/20 24 08/16/2024 COMP. METAB OLIC PANEL (14) bilirubin, total 0.8 mg/dL 0.0-1. 2 normal Not Available [facility] ([facility]) [address] [facility] [place], [address], 09/04/2024 11:15:21 08/15/20 24 08/16/2024 COMP. METAB OLIC PANEL (14) alkaline phosphatase 136 IU/L 44-121 above high normal Not Available [facility] ([facility]) [address] [facility], [place], [address], 09/04/2024 11:15:21 08/15/20 24 08/16/2024 COMP. METAB OLIC PANEL (14) AST (SGOT) 25 IU/L 0-40 normal Not Available [facility] ([facility]) [address] [facility], [place], [address], 09/04/2024 11:15:21 08/15/20 24 08/16/2024 COMP. METAB OLIC PANEL (14) ALT (SGPT) 18 IU/L 0-44 normal Not Available [facility] ([facility]) [address] [place], [address], 09/04/2024 11:15:21 08/15/20 24 08/16/2024 LIPID PANEL cholesterol, total 132 mg/dL 100-19 9 normal Not Available [facility] ([facility]) [address] [place], [address], 09/04/2024 11:15:22 08/15/20 24 08/16/2024 LIPID PANEL triglyceride s 89 mg/dL 0-149 normal Not Available [facility] ([facility]) [address] [place], [address], 09/04/2024 11:15:22 08/15/20 24 08/16/2024 LIPID PANEL HDL cholesterol 49 mg/dL >39 normal Not Available [facility] ([facility]) [address] [place], [address], 09/04/2024 11:15:22 08/15/20 24 08/16/2024 LIPID PANEL VLDL cholesterol arturo 17 mg/dL 5-40 Not Available [facility] ([facility]) [address] [place], [address], 09/04/2024 11:15:22 08/15/20 24 08/16/2024 LIPID PANEL LDL chol calc ([facility]) 66 mg/dL 0-99 Not Available [facility] ([facility]) [address] [facility], [place], [address], 09/04/2024 11:15:22 08/15/20 24 08/16/2024 LIPID PANEL LDL calc comment: [employer]ENDANT Not Available [facility] ([facility]) [address] [facility], [place], [address], 09/04/2024 11:15:22 08/15/20 24 08/20/2024 PHOSP HATID YLETH ANOL (PETH ) phosphatidyl ethanol NEGATI VE Not Available [facility] ([facility]) [address] [facility], [place], [address], 09/04/2024 11:15:23 08/15/20 24 08/20/2024 PHOSP HATID [...] to heavy gilbert ol consu mptio n. Matt er, the Cente r for Subst ance Abuse Treat ment (CSAT ) advis es cauti on in inter preta tion and use of bioma rkers alone to asses s alcoh ol use. Resul ts shoul d be inter prete d in the raffy xt of all avail able clini arturo and behav ioral infor matio n. Refer ence: Subst ance Abuse and Menta l Healt h Servi tru Admin istra tion (2011 ). The Role of Bioma rkers in the Treat ment of Alcoh ol Use Disor dernoah , 2012 Chaim ion. Advis ory, Volum e 11, Issue 2. This test was devel oped and its perfo rmanc e becky cteri stics deter mined by [employer]. It has not been clear ed or appro caity by the Food and Drug Admin istra tion. Not Available [facility] ([facility]) [address] [facility], [place], [address], 09/04/2024 11:15:23 08/15/20 24 08/16/2024 CAMPOS+L IPASE amylase 113 U/L 31-110 above high normal Not Available [facility] ([facility]) [address] [facility], [place], [address], 09/04/2024 11:15:24 08/15/20 24 08/16/2024 CAMPOS+L IPASE lipase 24 U/L 13-78 normal Not Available [facility] ([facility]) [address] [facility], [place], [address], 09/04/2024 11:15:24 08/15/20 24 09/04/2024 7ALPH AC4 [id number] 46 NG/mL Refer ence Inter farrah: 1.8-5 7 ng/mL Serum 7Alph aC4 is a surro gate for stool bile acids . [place] jose guadalupe holley ntrat ions (> 57 [...] >48 ng/mL , have been repor jose ugadalupe to have a negat farnaz predi ctive value of 85% and a posit farnaz predi ctive value of 82%, respe ctive ly, for bile acid diarr hea. Chrissy CHEUNG. Am J Gastr oente rol. 2020; 115(1 2):19 74-19 75 This test was devel oped and its perfo rmanc e becky cteri stics deter mined by [employer]. It has not been clear ed or appro caity by the Food and Drug Admin istra tion. Not Available [facility] [address] [facility] [place] [place], [address], 09/04/2024 11:15:26 08/15/20 24 08/16/2024 HEMOG LOBIN A1C hemoglobin A1C 7.4 % 4.8-5. 6 above high normal Predi abete s: 5.7 - 6.4 Diabe siobhan: >6.4 Glyce gilma contr ol for adult s with diabe siobhan: <7.0 Not Available [facility] ([facility]) [address] [facility], [place], [address], 09/04/2024 11:15:27 08/15/20 24 08/16/2024 SEDIM ENTAT ION RATE- WESTE RGREN sedimentatio n rate-westerg lori 8 mm/HR 0-30 normal Not Available [facility] ([facility]) [address] [place], [address], 09/04/2024 11:15:28 08/15/20 24 08/17/2024 CALCI UM, IONIZ ED, SERUM calcium, ionized, serum 5.0 mg/dL 4.5-5. 6 Not Available [facility] ([facility]) [address] [facility], [place], [address], 09/04/2024 11:15:29 08/15/20 24 08/16/2024 IGG, SUBCL ASS 4 IgG, subclass 4 17 mg/dL 2-96 Not Available [facility] ([facility]) [address] [place], [address], 09/04/2024 11:15:30 08/15/20 24 08/16/2024 C-SOHA CTIVE PROTE IN, QUANT C-reactive protein, quant 32 mg/L 0-10 above high normal Not Available [facility] ([facility]) [address] [place], [address], 09/04/2024 11:15:31 08/15/20 24 08/16/2024 SPECI MEN STATU S REPOR T specimen status report TNP Test not perfo rmed. No stool speci men recei caity. TEST: [id number] Calpr otect in, Fecal 82017 6 Fecal Fat,Q l (Rfx- Qt) Stool 37357 4 H. pylor i Stool Ag, EIA 42913 3 Ova + Dennis ite Exam 36072 4 Pancr eatic Elast ase, Fecal Not Available [facility] ([facility]) [address] [place], [address], 09/04/2024 11:15:32 08/19/20 24 08/22/2024 GI PROFI LE, STOOL , PCR campylobacte r Not Detect ed not detect ed Not Available [facility] ([facility]) [address] [place], [address], 08/22/2024 16:14:29 08/19/20 24 08/22/2024 GI PROFI LE, STOOL , PCR C difficile toxin A/B Detect ed not detect ed abnormal Not Available [facility] ([facility]) [address] [place], [address], 08/22/2024 16:14:29 08/19/20 24 08/22/2024 GI PROFI LE, STOOL , PCR plesiomonas shigelloides Not Detect ed not detect ed Not Available [facility] ([facility]) [address] [place], [address], 08/22/2024 16:14:29 08/19/20 24 08/22/2024 GI PROFI LE, STOOL , PCR salmonella Not Detect ed not detect ed Not Available [facility] ([facility]) [address] [place], [address], 08/22/2024 16:14:29 08/19/20 24 08/22/2024 GI PROFI LE, STOOL , PCR vibrio Not Detect ed not detect ed Not Available [facility] ([facility]) [address] [place], [address], 08/22/2024 16:14:29 08/19/20 24 08/22/2024 GI PROFI LE, STOOL , PCR vibrio cholerae Not Detect ed not detect ed Not Available [facility] ([facility]) [address] [place], [address], 08/22/2024 16:14:29 08/19/20 24 08/22/2024 GI PROFI LE, STOOL , PCR yersinia enterocoliti ca Not Detect ed not detect ed Not Available [facility] ([facility]) [address] [place], [address], 08/22/2024 16:14:29 08/19/20 24 08/22/2024 GI PROFI LE, STOOL , PCR enteroaggreg ative E coli Not Detect ed not detect ed Not Available [facility] ([facility]) [address] [place], [address], 08/22/2024 16:14:29 08/19/20 24 08/22/2024 GI PROFI LE, STOOL , PCR enteropathog enic E coli Not Detect ed not detect ed Not Available [facility] ([facility]) [address] [place], [address], 08/22/2024 16:14:29 08/19/20 24 08/22/2024 GI PROFI LE, STOOL , PCR enterotoxige gabe E coli Not Detect ed not detect ed Not Available [facility] ([facility]) [address] [place], [address], 08/22/2024 16:14:29 08/19/20 24 08/22/2024 GI PROFI LE, STOOL , PCR shiga-toxin- producing E coli Not Detect ed not detect ed Not Available [facility] ([facility]) [address] [place], [address], 08/22/2024 16:14:29 08/19/20 24 08/22/2024 GI PROFI LE, STOOL , PCR E coli O157 Not applic able not detect ed Not Available [facility] ([facility]) [address] [place], [address], 08/22/2024 16:14:29 08/19/20 24 08/22/2024 GI PROFI LE, STOOL , PCR shigella/ent eroinvasive E coli Not Detect ed not detect ed Not Available [facility] ([facility]) [address] [place], [address], 08/22/2024 16:14:29 08/19/20 24 08/22/2024 GI PROFI LE, STOOL , PCR cryptosporid ium Not Detect ed not detect ed Not Available [facility] ([facility]) [address] [place], [address], 08/22/2024 16:14:29 08/19/20 24 08/22/2024 GI PROFI LE, STOOL , PCR cyclospora cayetanensis Not Detect ed not detect ed Not Available [facility] ([facility]) [address] [place], [address], 08/22/2024 16:14:29 08/19/20 24 08/22/2024 GI PROFI LE, STOOL , PCR entamoeba histolytica Not Detect ed not detect ed Not Available [facility] ([facility]) [address] [place], [address], 08/22/2024 16:14:29 08/19/20 24 08/22/2024 GI PROFI LE, STOOL , PCR giardia lamblia Not Detect ed not detect ed Not Available [facility] ([facility]) [address] [place], [address], 08/22/2024 16:14:29 08/19/20 24 08/22/2024 GI PROFI LE, STOOL , PCR adenovirus F 40/41 Not Detect ed not detect ed Not Available [facility] ([facility]) [address] [facility], [place], [address], 08/22/2024 16:14:29 08/19/20 24 08/22/2024 GI PROFI LE, STOOL , PCR astrovirus Not Detect ed not detect ed Not Available [facility] ([facility]) [address] [facility], [place], [address], 08/22/2024 16:14:29 08/19/20 24 08/22/2024 GI PROFI LE, STOOL , PCR norovirus GI/gii Detect ed not detect ed abnormal Not Available [facility] ([facility]) [address] [facility], [place], [address], 08/22/2024 16:14:29 08/19/20 24 08/22/2024 GI PROFI LE, STOOL , PCR rotavirus A Not Detect ed not detect ed Not Available [facility] ([facility]) [address] [facility], [place], [address], 08/22/2024 16:14:29 08/19/20 24 08/22/2024 GI PROFI LE, STOOL , PCR sapovirus Not Detect ed not detect ed Not Available [facility] ([facility]) [address] [facility], [place], [address], 08/22/2024 16:14:29 08/19/20 24 08/20/2024 JACQUELINE EN AUTHO RIZAT ION written authorizatio n Commen t Jacqueline en Autho rizat ion Recei caity. Autho rizat ion recei caity from ORIGI NAL ORDER 08-20 Logge d by Roseanne fuentes Not Available [facility] ([facility]) [address] [facility], [place], [address], 08/22/2024 16:14:30 08/19/20 24 08/22/2024 FECAL FAT,Q L (RFX- QT) STOOL fats, neutral NORMAL Sandee l (<60 Dropl ets/H PF) Not Available [facility] ([facility]) [address] [facility], [place], [address], 08/29/2024 07:16:55 08/19/20 24 08/22/2024 FECAL FAT,Q L (RFX- QT) STOOL fats, total NORMAL Sandee l (<100 Dropl ets/H PF) Not Available [facility] ([facility]) [address] [place], [address], 08/29/2024 07:16:55 08/19/20 24 08/21/2024 CALPR OTECT IN, FECAL calprotectin , fecal 54 ug/g 0-120 Holley ntrat ion Inter preta tion Follo w-Up < 5 - 50 ug/g Sandee l None >50 -120 ug/g Borde rline Re-ev aluat e in 4-6 weeks >120 ug/g Abnor mal Repea t as clini roni indic ated Not Available [facility] ([facility]) [address] [facility], [place], [address], 08/29/2024 07:16:57 08/19/20 24 08/21/2024 PANCR EATIC ELAST ASE, FECAL pancreatic elastase, fecal >800 ug_el ast./ g >200 Sever e Pancr eatic Insuf ficie ncy: <100 Moder ate Pancr eatic Insuf ficie ncy: 100 - 200 Sandee l: >200 Not Available [facility] ([facility]) [address] [facility], [place], [address], 08/29/2024 07:16:58 08/19/20 24 08/28/2024 OVA + DENNIS ITE EXAM ova + parasite exam FINAL REPORT These resul ts were obtai hanh using wet prepa ratio n(s) and trich oliver stain ed smear . This test does not inclu de testi ng for Crypt ospor idium parvu m, Cyclo spora , or Micro spori tracy. Not Available [facility] ([facility]) [address] [facility], [place], [address], 08/29/2024 07:16:59 08/19/20 24 08/28/2024 OVA + DENNIS ITE EXAM result 1 COMMEN T No ova, cysts , or dennis ites seen. One negat farnaz speci men does not rule out the possi bilit y of a dennis itic infec tion. Not Available [facility] ([facility]) [address] [facility], [place], [address], 08/29/2024 07:16:59 09/25/2009/25/2024 GASTR OINTE ELISABET L PANEL ,STL PCR campylobacte r NOT DETECT ED not detect ed CAMPY LOBAC TER AND CRYPT OSPOR IDIUM RESUL TS WILL BE CONFI RMED BEFOR E FINAL RESUL TS REPOR JOSE GUADALUPE. Not Available [facility] ([facility]) [address] [facility], [place], [address], 09/25/2024 15:27:36 09/25/20 24 09/25/2024 GASTR OINTE ELISABET L PANEL ,STL PCR C difficile toxin A/B DETECT ED not detect ed delta Not Available [facility] ([facility]) [address] [facility], [place], [address], 09/25/2024 15:27:36 09/25/20 24 09/25/2024 GASTR OINTE ELISABET L PANEL ,STL PCR plesiomonas shigelloides NOT DETECT ED not detect ed Not Available [facility] ([facility]) [address] [facility], [place], [address], 09/25/2024 15:27:36 09/25/20 24 09/25/2024 GASTR OINTE ELISABET L PANEL ,STL PCR salmonella NOT DETECT ED not detect ed Not Available [facility] ([facility]) [address] [facility], [place], [address], 09/25/2024 15:27:36 09/25/20 24 09/25/2024 GASTR OINTE ELISABET L PANEL ,STL PCR vibrio NOT DETECT ED not detect ed Not Available [facility] ([facility]) [address] [facility], [place], [address], 09/25/2024 15:27:36 09/25/20 24 09/25/2024 GASTR OINTE ELISABET L PANEL ,STL PCR vibrio cholerae NOT DETECT ED not detect ed Not Available [facility] ([facility]) [address] [facility], [place], [address], 09/25/2024 15:27:36 09/25/20 24 09/25/2024 GASTR OINTE ELISABET L PANEL ,STL PCR yersinia enterocoliti ca NOT DETECT ED not detect ed Not Available [facility] ([facility]) [address] [facility], [place], [address], 09/25/2024 15:27:36 09/25/20 24 09/25/2024 GASTR OINTE ELISABET L PANEL ,STL PCR enteroaggreg ative E coli NOT DETECT ED not detect ed Not Available [facility] ([facility]) [address] [facility], [place], [address], 09/25/2024 15:27:36 09/25/20 24 09/25/2024 GASTR OINTE ELISABET L PANEL ,STL PCR enteropathog enic E coli NOT DETECT ED not detect ed Not Available [facility] ([facility]) [address] [facility], [place], [address], 09/25/2024 15:27:36 09/25/20 24 09/25/2024 GASTR OINTE ELISABET L PANEL ,STL PCR enterotoxige gabe E coli lt/st NOT DETECT ED not detect ed Not Available [facility] ([facility]) [address] [facility], [place], [address], 09/25/2024 15:27:36 09/25/20 24 09/25/2024 GASTR OINTE ELISABET L PANEL ,STL PCR shiga-toxin- producing E coli NOT DETECT ED not detect ed Not Available [facility] ([facility]) [address] [facility], [place], [address], 09/25/2024 15:27:36 09/25/20 24 09/25/2024 GASTR OINTE ELISABET L PANEL ,STL PCR E coli O157 N/A not detect ed Not Available [facility] ([facility]) [address] [facility], [place], [address], 09/25/2024 15:27:36 09/25/20 24 09/25/2024 GASTR OINTE ELISABET L PANEL ,STL PCR shigella/ent eroinvasive E coli NOT DETECT ED not detect ed Not Available [facility] ([facility]) [address] [facility], [place], [address], 09/25/2024 15:27:36 09/25/20 24 09/25/2024 GASTR OINTE ELISABET L PANEL ,STL PCR cryptosporid ium NOT DETECT ED not detect ed Not Available [facility] ([facility]) [address] [facility], [place], [address], 09/25/2024 15:27:36 09/25/20 24 09/25/2024 GASTR OINTE ELISABET L PANEL ,STL PCR cyclospora cayetanensis NOT DETECT ED not detect ed Not Available [facility] ([facility]) [address] [facility], [place], [address], 09/25/2024 15:27:36 09/25/20 24 09/25/2024 GASTR OINTE ELISABET L PANEL ,STL PCR entamoeba histolytica NOT DETECT ED not detect ed Not Available [facility] ([facility]) [address] [facility], [place], [address], 09/25/2024 15:27:36 09/25/20 24 09/25/2024 GASTR OINTE ELISABET L PANEL ,STL PCR giardia lamblia NOT DETECT ED not detect ed Not Available [facility] ([facility]) [address] [facility], [place], [address], 09/25/2024 15:27:36 09/25/20 24 09/25/2024 GASTR OINTE ELISABET L PANEL ,STL PCR adenovirus F 40/41 NOT DETECT ED not detect ed Not Available [facility] ([facility]) [address] [facility], [place], [address], 09/25/2024 15:27:36 09/25/20 24 09/25/2024 GASTR OINTE ELISABET L PANEL ,STL PCR astrovirus NOT DETECT ED not detect ed Not Available [facility] ([facility]) [address] [facility], [place], [address], 09/25/2024 15:27:36 09/25/20 24 09/25/2024 GASTR OINTE ELISABET L PANEL ,STL PCR norovirus GI/gii NOT DETECT ED not detect ed Not Available [facility] ([facility]) [address] [facility], [place], [address], 09/25/2024 15:27:36 09/25/20 24 09/25/2024 GASTR OINTE ELISABET L PANEL ,STL PCR rotavirus A NOT DETECT ED not detect ed Not Available [facility] ([facility]) [address] [facility], [place], [address], 09/25/2024 15:27:36 09/25/20 24 09/25/2024 GASTR OINTE [...] rever se trans cript ase Not Available [facility] ([facility]) [address] [facility], [place], [address], 09/25/2024 15:27:36 09/25/20 24 09/25/2024 C DIFFI CILE TOX/A G SCREE N specimen consistency LIQUID STOOL Not Available [facility] ([facility]) [address] [facility], [place], [address], 09/25/2024 15:28:43 09/25/20 24 09/25/2024 C DIFFI [...] cytes or PCR testi ng. Not Available [facility] ([facility]) [address], [place], [address], 09/25/2024 15:28:43 09/25/20 24 09/25/2024 C DIFFI CILE TOX/A G SCREE N C.difficile antigen NEGATI VE negati ve Not Available [facility] ([facility]) [address] [facility], [place], [address], 09/25/2024 15:28:43 09/25/20 24 09/25/2024 C DIFFI CILE TOX/A G SCREE N C diff internal control PASS PASS Not Available [facility] ([facility]) [address] [facility], [place], [address], 09/25/2024 15:28:43 09/25/20 24 10/03/2024 PATHO LOGY SPECI MEN pathology specimen SEE JEROME Castillo RPT Not Available [facility] ([facility]) [address] [facility], [place], [address], 10/03/2024 09:18:07 Result Notes None recorded. Problems Name Problem SNOMED Code Status Onset Date Resolution Date Notes Provider Name and Address Organization Details Recorded Time Allergic rhinitis 75664922 Active 2016 Allergic rhinitis Not Available [facility] 08:18:40 Dyspnea 230467413 Active 2016 Not Available [facility] 3 08:18:40 Cough 45342935 Active 2016 Cough Not Available [facility] 3 08:18:40 Chronic constipat ion with overflow 77873791 Active 2016 Overflow diarrhea Not Available [facility] 3 08:18:40 Cervical spondylos is without myelopath y 290606614 Active 2020 Not Available [facility] 3 08:18:40 Heartburn 79223708 Active 2017 Heartburn Not Available [facility] 3 08:18:40 Restricti ve lung disease 22412783 Active 2016 Not Available [facility] 3 08:18:40 Cerebrova scular accident 600071821 Active 2014 Stroke Not Available [facility] 3 08:18:40 Finding reported by subject or history provider 721337270 Active 2014 Not Available [facility] 3 08:18:40 Paresthes ia 07549910 Active 2020 Not Available [facility] 3 08:18:40 Abdominal pain 76388372 Active 2017 Abdominal pain Not Available [facility] 3 08:18:40 Gastroeso phageal reflux disease 143565991 Active 2016 Gastroeso phageal reflux disease Not Available [facility] 08:18:40 Irritable bowel syndrome 61293840 Active 2017 Irritable bowel syndrome Not Available [facility] 3 08:18:40 Asthma 360599573 Active 2016 Asthma Not Available [facility] 3 08:18:40 Diarrhea 82282614 Active 2016 Diarrhea Not Available [facility] 3 08:18:40 Constipat ion 07529706 Active 2016 Constipat ion Not Available [facility] 3 08:18:40 Neuralgia 12675522 Active 2022 Georgina Marshall DO [address] , [place], [address] , [place] - [facility] - [place] [facility] [place] 3 08:49:54 Left foot drop 22305648398 9105 Active 2022 Georgina Marshall DO [address], [place], [address] , [place] - [facility] [place] & [place] 3 08:49:58 Forgetful 73105227 Active 2022 Georgina Marshall DO [address], [place], [address] , [place] - [facility] & [place] 3 11:24:50 Irritable bowel syndrome with diarrhea 914036398 Active 2022 Earlene Kamara NP [address], [address], [place], [address] , [place] - [facility] - [place] & [place] 15:53:25 Essential tremor 941318824 Active 2023 Georgina Marshall DO [address], [place], [address] , [place] [facility] [place] 09:58:42 Problem Notes None recorded. Procedures Surgical History Date Name Laterality Status Provider Name and Address Organization Details Recorded Time 01/14/20 25 lumbar spinal fusion completed Khushi Kapoor [place] - [facility] - [place] & [place] 01/14/2025 13:17:57 08/15/20 24 Procedure Note completed Khushi Mariedwell [place] - [facility] [place] 08/15/2024 11:59:29 11/27/19 24 Cardiovascular Surgery completed Prema Dominguez [place] - [facility] - [place] & [place] 06/25/2024 13:58:00 07/07/20 23 placement of stent in coronary artery completed Earlene Kamara NP [address], [address], [place], [address], [place] [facility] & [place] 07/13/2023 16:02:11 11/27/19 23 Cardiovascular Surgery completed Prema ERAZO - [facility] & [place] 06/25/2024 13:58:00 06/27/20 17 colonoscopy completed DO [address], [place], [address], [place] [facility] & [place] 01/23/2023 08:43:26 08/27/20 16 operation on lumbar spine completed DO [address], [place], [address], [place] - [facility] & [place] 01/23/2023 08:44:23 09/27/20 14 herniotomy of bilateral inguinal hernias completed DO [address], [place], [address], [place] [facility] & [place] 01/23/2023 08:42:59 02/26/20 14 placement of stent in coronary artery completed Georgina Marshall DO [address], [place], [address], [facility] - [facility] & [place] 01/23/2023 08:43:13 11/27/19 14 Back Surgery completed Prema Dominguez MD - [facility] & [place] 06/25/2024 13:43:45 11/27/19 13 Cholecystectomy completed Georgina Marshall DO [address], [place], [address], [facility] - [facility] & [place] 01/23/2023 08:42:23 11/27/19 12 arthroplasty of knee completed DO [address], [place], [address], [place] - [facility] & [place] 01/23/2023 08:42:13 11/27/19 10 Elbow arthroscopy completed DO Kannan [address], [place], [address], [place] - [facility] & [place] 01/23/2023 08:42:40 EGD/Endoscopy completed Earlene Kamara NP [address] [place] [address], [address], [place], [address], [facility] - [facility] & [place] 07/13/2023 16:02:36 Imaging Results None recorded. Procedure Notes None recorded. Medical Equipment None Reported. Allergies Allergen ID Allergen Name Allergen Category Reaction Reaction Severity Criticality Documentation Date Start Date Code Code System Note Provider Name and Address Organization Details Recorded Time 61040 Penicilli n Not available Not available Not available Not available 08/29/2022 52836 RxNorm React ion: Unkno wn, sever ity: Unkno wn Not Available [facility] 02:56:23 30450 Product containin g penicilli n (product) medicatio n Not available Not available Not available 01/23/2023 58651 8001 SNOMED Agnes jansen, [place] - [facility] & [place] 10:57:42 Medications Name Sig Start Date Stop [...] completed Not Available Not Available Not Available pantoprazol e 40 mg tablet,lisa yed release TAKE 1 TABLET BY MOUTH EVERY DAY FOR ACID REFLUX active Not Available Not Available No t Available ferrous sulfate 325 mg (65 mg iron) [...] completed Not Available Not Available Not Available folic acid 1 mg tablet TAKE 1 TABLET BY MOUTH ONCE DAILY active Not Available Not Available No t Available montelukast 10 mg tablet TAKE 1 TABLET BY MOUTH EVERY DAY EVERY EVENING 03/01 completed Not Available Not Available Not Available ammonium lactate 12 % topical cream APPLY TO AFFECTED AREA TWICE A DAY 01/23 completed Not Available Not Available Not Available mupirocin 2 % topical ointment 01/23 completed Not Available Not Available Not Available ergocalcife rol (vitamin D2) 1,250 mcg (50,000 unit) capsule TAKE 1 CAPSULE BY MOUTH ONCE A WEEK active Not Available Not Available No t Available Novolog U-100 Insulin aspart 100 unit/mL subcutaneou s solution USE WITH INSULIN PUMP DIRECTED UP TO 125 UNITS DAILY 06/24 completed Not Available Not Available Not Available insulin lispro (U-100) 100 unit/mL subcutaneou s solution USE UP TO 125 UNITS VIA INSULIN PUMP DAILY active Not Available Not Available No t Available cefdinir 300 mg capsule 03/01 completed [...] completed Not Available Not Available Not Available ranolazine ER 500 mg tablet,exte nded release,12 hr TAKE 1 TABLET BY MOUTH TWICE DAILY active Not Available Not Available No t Available ranolazine ER 1,000 mg tablet,exte nded release,12 hr TAKE 1 TABLET BY MOUTH TWICE DAILY active Not Available Not Available No t Available sodium,pota ssium,mag sulfates 17.5 gram-3.13 gram-1.6 [...] Available Not Available Not Available Dexcom G6 [employer] 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 01/23 completed Not [...] Available Not Available Dexcom G7 Sensor device CHANGE EVERY 10 DAYS, APPOINTME NT NEEDED FOR REFILLS active Not Available Not Available No t Available Vitals Date Recorded Body height Body mass index (BMI) Body weight Oxygen saturation Oxygen saturation in Arterial blood by Pulse oximetry Body temperature Heart rate Heart rate Systolic blood pressure Diastolic blood pressure Provider Name and Address Organization Details Last Updated DateTime 187.96 cm 30.2 kg/m2 581064. 57 g 98 % 98 % 98.1 [degF] 69 /min 72 /min 107 mm[Hg] 65 mm[Hg] Khushi Kapoor MD - NT [facility] & [place] 5 13:17:21 Date Recorded Body height Body mass index (BMI) Body weight Systolic blood pressure Diastolic blood pressure Provider Name and Address Organization Details Last Updated DateTime 03/01/2024 187.96 cm 29.9 kg/m2 411603.0 2 g 128 mm[Hg] 78 mm[Hg] Agnes Holman [facility] & [place] 4 09:40:37 Date Recorded Body height Body mass index (BMI) Body weight Body temperature Oxygen saturation Oxygen saturation in Arterial blood by Pulse oximetry Heart rate Provider Name and Address Organization Details Last Updated DateTime 4 187.96 cm 29.9 kg/m2 619925. 02 g 97.4 [degF] 97 % 97 % 76 /min Prema oDminguez [facility] & [place] 4 13:57:45 Date Recorded Body height Body mass index (BMI) Body weight Body temperature Oxygen saturation Oxygen saturation in Arterial blood by Pulse oximetry Heart rate Heart rate Systolic blood pressure Diastolic blood pressure Provider Name and Address Organization Details Last Updated DateTime 4 187.96 cm 31.3 kg/m2 302515. 38 g 98.4 [degF] 99 % 99 % 63 /min 68 /min 181 mm[Hg] 97 mm[Hg] Ralph Maya [facility] & [place] 4 10:20:26 Date Recorded Body height Body mass index (BMI) Body weight Heart rate Heart rate Oxygen saturation Oxygen saturation in Arterial blood by Pulse oximetry Body temperature Systolic blood pressure Diastolic blood pressure Provider Name and Address Organization Details Last Updated DateTime 4 187.96 cm 31.2 kg/m2 980894. 02 g 64 /min 66 /min 97 % 97 % 97.9 [degF] 105 mm[Hg] 66 mm[Hg] Khushi Kapoor [facility] & [place] 4 14:07:03 Social History Question Answer Notes LastModified by Organizat ion Details LastModified Time Tobacco Smoking Status Former Smoker Not Available [facility] 01/12/2023 08:18:40 Do You Have An Advance Directive? No [email or web address] Information not available 06/25/2024 Are You Blind Or Do You Have Difficulty Seeing? No [email or web address] Information not available 06/25/2024 What Is Your Level Of Caffeine Consumption? Occasional 2 Cups Coffee [email or web address] Information not available 01/23/2023 When Did You Quit Smoking? 16+yearssincel luz [email or web address] Information not available 01/23/2023 What Was The Date Of Your Most Recent Tobacco Screening? 07/09/2023 [email or web address] Information not available 06/25/2024 Do You Have Any Pets? No Information not available 01/23/2023 What Is Your Relationship Status? Lives With Spouse, House [email or web address] Information not available 01/23/2023 Are You Sexually Active? Yes Information not available 01/23/2023 At What Age Did You Start Smoking Tobacco? 17 Information not available 01/23/2023 Are You Currently In School? No Some College Information not available 01/23/2023 Sex: Unknown Functional Status Question Answer Note LastModified by Organizat ion Details LastModified Time Do you use any illicit or recreational drugs? No [email or web address] Information not available 01/23/2023 Do you or have you ever used any other forms of tobacco or nicotine? No [email or web address] Information not available 08/15/2024 What is your level of alcohol consumption? Occasional [email or web address] Information not available 06/25/2024 Do you or have you ever used smokeless tobacco? 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 No drives Information not available 01/23/2023 Are you able to care for yourself? Yes Information not available 01/23/2023 What is your exercise level? Occasional [email or web address] Information not available 06/25/2024 Mental Status Question Answer Note LastModified by Organization D etails LastModified Time Do you feel stressed (tense, restless, nervous, or anxious, or unable to sleep at night)? [id number] [email or web address] Information not available 06/25/2024 Family History Relationship Description Onset Age of this Age Resolved Age Notes LastModified by Organization Details LastModified Time Mother Diabetes mellitus [email or web address] Not available 2024 12:55:05 Mother Hypertensive disorder [email or web address] Not available 2022 08:40:08 Mother Kidney disease [email or web address] Not available 2022 08:40:17 Mother Headache [email or web address] Not availabl e 01/23/2023 08:40:26 Father Diabetes [...] available 07/09/2023 14:40:35 Medical History Condition Response Diabetes Y Coronary Artery Disease Y Obesity Y Vision or Eye Problems Y Hyperlipidemia Y Back Problems Y Migraines Y GI Problems Y Depression Y TIA Y High Cholesterol Y Spine Problems Y Psychiatric/Mental Health Condition Y Heart Disease Y Headaches Y Obstructive Sleep Apnea Y Hypertension Y Neurological Problems Y Past Encounters Encounter ID Performer Location Encounter Start Date Encounter Closed Date Diagnosis/Indication Diagnosis SNOMED-CT Code Diagnosis ICD10 Code Diagnosis Note [id number] Georgina Marshall DO [facility] [address] [place] [address] 01/23/2023 10:25:40 01/23/2023 11:28:47 Cervical spondylosis without myelopathy 077769228 M47.812 Chronic condition that is stable. Continue with gabapentin at the current dose. He does not need refills today. Neuralgia 21168567 M79.2 Chronic condition that is stable. Continue with gabapentin at the current dose. Left foot drop 615526093 1 88635 M21.372 Chronic condition that is stable. No current therapy or equipment needs. Forgetful 86082331 R41.3 New issue with increased lack of focus and concentrat ion. He has poor sleep which I suspect is a major factor. Will check labs today. If normal consider increasing his gabapentin dose to 800mg qhs to see if that will afford him a more restful night. [id number] Earlene Kamara NP [address] [address] 07/12/2023 14:21:48 07/17/2023 12:16:12 Heartburn 70525165 R12 Occasional symptoms at this time. Diarrhea 15519750 R19.7 Several month history of worsening diarrhea [...] history, consider colonoscop y in 1 year. [id number] Georgina Marshall DO [facility] [address] [place] [address] 03/01/2024 09:36:06 03/01/2024 10:04:03 Cervical spondylosis without myelopathy 954238035 M47.812 Chronic condition that is stable. Continue with gabapentin at the current dose. He does need refills today. Neuralgia 80658058 M79.2 Chronic condition that is stable. Continue with gabapentin at the current dose. He does need refills today. Left foot drop 058754846 1 04559 M21.372 Chronic condition that is stable. No current therapy or equipment needs. Essential tremor 5601381 09 G25.0 New tremor in the last year. 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 He does find this socially embarrassi ng. We discussed primidone and propranolo l options. He was most comfortabl e with primidone. He is educated on how to take this medication and potential side effects. Will start a low dose and he will call with an update. [id number] LIVE Russell [facility] [address] [place] [address] [address] [place] [address] 06/25/2024 13:01:20 06/25/2024 14:24:50 Pancreatitis 21264716 K85.90 patient developed acute left flank pain about a week after he had a heart stent placed in April. He was seen in the ED and [place] at which time he had elevated lipase [...] develop fever or worsening abdominal pain, n/v. 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0 History of Intestinal infection caused by Clostridioides difficile 1227234948 04711 Z86.19 Reactive gastropathy 399 441410 K31.9 [id number] AMINTA BARRETT NP [facility] [address] [facility] [address] [facility] [place] [address] 01/14/2025 12:51:20 01/14/2025 14:01:20 Chronic pancreatitis 537179921 K86.1 Diarrhea 45554185 R19.7 Bile acid malabsorption syndrome 81195995 E78.70 History of cholecystectomy 624654538 Z90.49 Screening for malignant neoplasm of colon 468967786 Z12.11 Nausea 135743878 R11.0 History of Intestinal infection caused by Clostridioides difficile 0904308657 76016 Z86.19 Reactive gastropathy 399 673679 K31.9 Epigastric pain 30533307 R10.13 Health Concerns Section Related Observation LastModified by Organization Detai ls LastModified Time None Recorded Concern Status LastModified by Organization Details LastModified Time None Recorded Advance Directives Directive N: Payers Insurance Date Sequence Insurance Name Policy Number Policy Cohen Covered Member ID Cohen Member ID Guarantor Name 04/04/2025 1 [place] - [place] Jonathan Delgado [id number] Jonathan Delgado 03/04/2024 2 [place] [id number] Jonathan Delgado [id number] Jonathan Delgado 06/25/2024 1 [employer] ([place]) [id number] Jonathan Delgado [id number] Jonathan Delgado 11/05/2024 1 [place] [id number] Jonathan Delgado [id number] Jonathan Delgado 01/14/2025 1 [place] [id number] Jonathan Delgado [id number] Jonathan Delgado Notes Date Note Type Note [...] very long. No racing thoughts reported. Georgina Marshall, [address], [place], [address], [place] & [place] 03/01/2024 10:22:18 06/25/2024 text/html This is a 53-yea r-old male with a PMH significant for diabetes mellitus, CAD who was referred to our clinic for pancreatitis. Patient underwent a heart catheterization in April with Dr. Keena ledesma. Several days after the procedure he developed symptoms of low blood pressure and left flank plain. He was evaluated in the ER in [place] at which time he was found to [...] we will try to obtain records from. Aure Soliman [address], [address], [place], [address], [place] 06/26/2024 12:50:04 08/15/2024 text/html CURRENT (08/15/20 24 VBam Barrett):Mr. Delgado is a 53 year old man referred to use by Quyen Elizabeth APRN for acute pancreatitis. Patient developed acute left flank pain after cardiac catheterization and was seen in the ED at [facility]. CT scan reportedly showed acute pancreatitis [...] beverages and improve his diet. AMINTA BARRETT, AUTOMAT CAR ATTENDANT [address], [place], [address], [place] & [place] 08/15/2024 14:51:19 11/05/2024 text/html PREVIOUS ( 024 Margarita Barrett):Mr. Delgado is a 53 year old man referred to use by Quyen Elizabeth APRN for acute pancreatitis. Patient developed acute left flank pain after cardiac catheterization and was seen in the ED at [facility]. CT scan reportedly showed acute pancreatitis [...] continuous nausea. 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 Denies any weight loss, fevers or bloody stool. AMINTA BARRETT, AUTOMAT CAR ATTENDANT [address], [place], [address], [place] 11/05/2024 15:41:48 01/14/2025 text/html PREVIOUS ( 024 Margarita Barrett):Mr. Delgado is a 53 year old man referred to use by Quyen Elizabeth APRN for acute pancreatitis. Patient developed acute left flank pain after cardiac catheterization and was seen in the ED at [facility]. CT scan reportedly showed acute pancreatitis [...] continuous nausea. 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 Denies any weight loss, fevers or bloody [...] Denies any new GI symptoms. AMINTA BARRETT, AUTOMAT CAR ATTENDANT [address], [place], [address], [facility] - [place] - [place] & [place] 01/14/2025 21:54:23
== END 2025-04-29 23:59 | disposition home or self-care (01) ==
LOC: RT 11:44
PROVIDERS: PCP Family Medicine; Visit Provider Specialist
DX: I49.1 Atrial premature depolarization (principal); I49.3 Ventricular premature depolarization; I47.29 Other ventricular tachycardia; R41.0 Disorientation, unspecified
CPT/HCPCS: 93270; 93272

== ENCOUNTER 2025-05-03 09:49 | Outpatient (CLI) | payer MEDICAID, SELFPAY ==
--- OUTSIDE RECORDS SUMMARY | 2025-05-03 09:51 | XMS_ITS | Encounter Summary ---
Author Organization [employer] [facility] Address [address] [place] [address] Care Team Providers Care Field Hockey Coach Name Role Phone Unavailable Primary Care Provider Unavailabl e Encounter Details Date Type Department Care Team (Late st Contact Info) Description 01/21/2020 Transcribed Document [facility] Family Medicine [facility] [place] [address] ProviderLora MD [address] [place], [place] [id number] Social History Tobacco Use Types Packs/Day Years Used Date Smoking Tobacco: Never Assessed Sex and Gender Information Value Date Recorded Sex Assigned at Not on file Legal Sex Male 5:25 PM CDT Gender Identity Not on file Sexual Orientation Not on file documented as of this encounter Miscellaneous Notes * Cerner Conversion Note - Historical ProviderMD - 01/21/2020 12:11 PM AVIONICS MANAGER Final Discharge Planning Entered On: 01/21/2020 12:15 EST Performed On: 01/21/2020 12:11 EST by SANDY LEIJA RN-Care Management Final Discharge Planning Discharge Arrangements : Patient Post-Acute Information Patient Name: JONATHAN CHOI Gender: Male : [birth year] Age: 49 Years No Post-Acute Placement(s) Listed No Post-Acute Service(s) Listed No Curaspan Referral(s) Listed Transportation Needs : Family/Friend Is Patient High/Moderate Readmission Risk? : No Patient/Family Notified of Plan : Yes Is Patient Ready for Discharge? : Yes Physician Notified Patient is Ready for Discharge? : Yes Discharge To Care Management : Home/Residential/[facility] or Self Care -01 SANDY LEIJA, RN-Care Management - 01/21/2020 12:11 EST Final Narrative Note Final Narrative Note : Discharging today w/f/u appt made w/ID along w/plans for IV abx therapy beginning tomorrow w/[facility] SANDY LEIJA RN-Care Management - 01/21/2020 12:11 EST Electronically signed by [facility], [place] [facility] Conversion Hot [employer] Cerner at 03/17/2023 9:46 AM CDT documented in this encounter Plan of Treatment Not on file documented as of this encounter Visit Diagnoses Not on filedocumented in this encounter
--- OUTSIDE RECORDS SUMMARY | 2025-05-03 09:51 | XMS_ITS | Encounter Summary ---
Author Organization [employer] Address [address] [place] [address] Care Team Providers Care Personal Finance Instructor Name Role Phone Unavailable Primary Care Provider Unavailabl e Encounter Details Date Type Department Care Team (Late st Contact Info) Description 01/21/2020 Transcribed Document [facility] Family Medicine [facility] [place] [address] ProviderLora MD [address] [place], [place] [id number] Social History Tobacco Use Types Packs/Day Years Used Date Smoking Tobacco: Never Assessed Sex and Gender Information Value Date Recorded Sex Assigned at Not on file Legal Sex Male 5:25 PM CDT Gender Identity Not on file Sexual Orientation Not on file documented as of this encounter Miscellaneous Notes * Cerner Conversion Note - Historical ProviderMD - 01/21/2020 11:07 AM PRINTER HELPER Stroke/Warfarin Instructions Entered On: 01/21/2020 11:07 EST Performed On: 01/21/2020 11:07 EST by Cinthya Salamanca RN Stroke/Warfarin Instructions Stroke/TIA Discharge Ins : Open Warfarin Discharge Ins : N/A Cinthya Salamanca RN - 01/21/2020 11:07 EST Stroke/TIA Discharge Instructions Individualized Stroke Risk Factors *Q : Hypertension/High blood pressure Stroke Education Handouts Given *Q : Yes Cinthya Salamanca RN - 01/21/2020 11:07 EST Stroke Education Materials Given-Grid Activation of EMS *Q : Verbalizes understanding Follow-up Care After Discharge *Q : Verbalizes understanding Medications prescribed at DC *Q : Verbalizes understanding Risk Factors for Stroke *Q : Verbalizes understanding Warning S&S of Stroke *Q : Verbalizes understanding Cinthya Salamanca RN - 01/21/2020 11:07 EST Stroke/TIA Signs/Symptoms to Report Immediately : Sudden onset difficulty speaking, Sudden onset difficulty understanding speech, Sudden onset change in vision, Sudden onset weakness particulary on one side of the body, Sudden onset numbness/tingling, Sudden severe headache, Sudden dizziness or trouble with gait, Call : EMS activation is crucial My LDL Level: : LDL Level Cholesterol LDL Calculation: 165 mg/dL High (01/18/20 18:33:00) Cinthya Salamanca RN - 01/21/2020 11:07 EST documented in this encounter Plan of Treatment Not on file documented as of this encounter Visit Diagnoses Not on filedocumented in this encounter
--- OUTSIDE RECORDS SUMMARY | 2025-05-03 09:51 | XMS_ITS | Encounter Summary ---
Author Organization [employer] [facility] Address [address] [place] [address] Care Team Providers Care Cnc Field Service Engineer Name Role Phone Unavailable Primary Care Provider Unavailabl e Encounter Details Date Type Department Care Team (Late st Contact Info) Description 01/23/2020 Transcribed Document [facility] Family Medicine [facility] [place] [address] ProviderLora MD [address] [place], [place] [id number] Social History Tobacco Use Types Packs/Day Years Used Date Smoking Tobacco: Never Assessed Sex and Gender Information Value Date Recorded Sex Assigned at Not on file Legal Sex Male 5:25 PM CDT Gender Identity Not on file Sexual Orientation Not on file documented as of this encounter Miscellaneous Notes * Cerner Conversion Note - Lora ProviderMD - 01/23/2020 2:20 PM BULK SAUSAGE CASING TIER OFF UM Authorization Entered On: 01/23/2020 14:23 EST Performed On: 01/23/2020 14:20 EST by LORENA GOLDMAN RN Primary Insurance Authorization Authorization and Policy Numbers : Insurance 1 Health Plan[id number] Number: [id number] Authorization Number: [facility] Policy Number: [id number] Authorization Status-Primary : Drg approved Auth/Referral Contact Name-Primary : [place] Reference Number-Primary : [id number] Number of Days Authorized-Primary : 1 Day(s) Authorized Service Begin Date-Primary : 01/18/2020 EST Authorized Service End Date-Primary : 01/19/2020 EST Authorization Comments-Primary : Per Availity, DRG approved. Historical Authorization Comments-Primary : Comment 1: Discharge date and summary faxed. (Roxie Marshall, Black Pickler 01/22/2020 13:27) Comment 2: 2 days los approved, nrd 01/20, clinicals faxed via [employer] for C/S (JOAQUIN PETTY RN 01/21/2020 10:45) Comment 3: Submitted Inpt Auth on Availity with clinicals attached. (HORACIO REGALADO, Rn-Utilization Review 01/19/2020 15:14) LORENA GOLDMAN RN - 01/23/2020 14:20 EST Electronically signed by Stefanie [facility] Conversion Director Of Quantitative Research Cerner at 03/17/2023 9:36 AM CDT documented in this encounter Plan of Treatment Not on file documented as of this encounter Visit Diagnoses Not on filedocumented in this encounter
--- OUTSIDE RECORDS SUMMARY | 2025-05-03 09:51 | XMS_ITS | Clinical Summary ---
Author Organization [employer] [facility] [employer] Address [address] [place] [address] Care Team Providers Care Gang Mower Operator Name Role Phone Unavailable Primary Care Provider Unavailabl e Social History Tobacco Use Types Packs/Day Years Used Date Smoking Tobacco: Never Assessed Sex and Gender Information Value Date Recorded Sex Assigned at Not on file Legal Sex Male 5:25 PM CDT Gender Identity Not on file Sexual Orientation Not on file Plan of Treatment Not on file
--- OUTSIDE RECORDS SUMMARY | 2025-05-03 09:51 | XMS_ITS | Encounter Summary ---
Author Organization [employer] [facility] [employer] Address [address] [place] [address] Care Team Providers Care Admin Prog Coord Name Role Phone Unavailable Primary Care Provider Unavailabl e Encounter Details Date Type Department Care Team (Late st Contact Info) Description 01/22/2020 Transcribed Document [facility] Family Medicine [address] [place] [address] ProviderLora MD [address] [place], [place] [phone] Social History Tobacco Use Types Packs/Day Years Used Date Smoking Tobacco: Never Assessed Sex and Gender Information Value Date Recorded Sex Assigned at Not on file Legal Sex Male 5:25 PM CDT Gender Identity Not on file Sexual Orientation Not on file documented as of this encounter Miscellaneous Notes * Cerner Conversion Note - Lora ProviderMD - 01/22/2020 1:27 PM SKILLED LABOR UM Authorization Entered On: 01/22/2020 13:28 EST Performed On: 01/22/2020 13:27 EST by Roxie Marshall, Grain Unloader Primary Insurance Authorization Authorization and Policy Numbers : Insurance 1 Health Plan: [facility] Policy Number: [id number] Authorization Number: Insurance Primary Name : [facility] Policy Number: [id number] Authorization Status-Primary : Admit approved Auth/Referral Contact Name-Primary : [place] Reference Number-Primary : [id number] Number of Days Authorized-Primary : 1 Day(s) Authorized Service Begin Date-Primary : 01/18/2020 EST Authorized Service End Date-Primary : 01/19/2020 EST Authorization Comments-Primary : Discharge date and summary faxed. Historical Authorization Comments-Primary : Comment 1: 2 days los approved, nrd 01/20, clinicals faxed via [employer] for C/S (JOAQUIN PETTY RN 01/21/2020 10:45) Comment 2: Submitted Inpt Auth on Availity with clinicals attached. (HORACIO REGALADO, Rn-Utilization Review 01/19/2020 15:14) Roxie Marshall, Grain Unloader - 01/22/2020 13:27 EST Electronically signed by Stefanie, [facility] Conversion Sales Product Specialist Cerner at 03/17/2023 9:31 AM CDT documented in this encounter Plan of Treatment Not on file documented as of this encounter Visit Diagnoses Not on filedocumented in this encounter
--- OUTSIDE RECORDS SUMMARY | 2025-05-03 09:52 | XMS_ITS | Encounter Summary ---
Author Organization [employer] Address [address] [place] [id number] Care Team Providers Care Import/Export Agent Name Role Phone Unavailable Primary Care Provider Unavailabl e Encounter Details Date Type Department Care Team (Late st Contact Info) Description 01/21/2020 Transcribed Document [facility] Radiology [address] [place] [address] Nikole Bravo MD [address] [place], [place] [id number] Social History Tobacco Use Types Packs/Day Years Used Date Smoking Tobacco: Never Assessed Sex and Gender Information Value Date Recorded Sex Assigned at Not on file Legal Sex Male 5:25 PM CDT Gender Identity Not on file Sexual Orientation Not on file documented as of this encounter Miscellaneous Notes * Cerner Conversion Note - Nikole Bravo MD - 01/21/2020 1:56 PM EST Patient: JONATHAN CHOI Age: 49 Years Sex: Male : 1970 Admit Date 01/19/2020 15:12 Discharge Date 01/21/2020 Primary Care Provider ADRIAN DELACRUZ [facility] Discharge Diagnosis Diabetic foot ulcer/cellulitis. Osteomyelitis ruled out with MRI Coronary artery disease Diabetes mellitus. Hypertension. Hospital Course 49 yo male with history with CAD (PCI 2013), HTN, and DM presented to outside facility with complaints of redness of left foot, fever and chills. Pt transferred to [facility] for further evaluation and treatment. Pt states he started with fever and chills earlier in the week. started noticing redness on bottom of left foot. Podiatry opened and drained . Cardiology consulted for evaluation of PVD. Pt was recently seen by primary cardiology and noted some chest pain. He has pending stress test scheduled for first week in january. Patient initially started on broad-spectrum IV antibiotics. ID consulted for possible osteomyelitis versus diabetic foot ulcer. Subsequently left foot MRI came back no evidence of osteomyelitis. Wound culture did grow staph aureus. Patient was seen and evaluated by Dr. Lance infectious disease. Recommend okay to discharge home with home IV antibiotics versus IV antibiotics at [facility] infectious office patient can be discharged on ceftriaxone 2 g IV daily. With wound dressing at [facility] infectious disease office and per his Podiatery . Cardiology started him on statin and instructed to follow-up as outpatient for possible cardiac stress test. Last internal medicine note: Left foot cellulitis. Left foot MRI no evidence of osteomyelitis. There is small fluid collection at present to the first metatarsal neck Rule out peripheral last coronary disease. Cardiology to order arterial Doppler ultrasound. Continue broad-spectrum IV antibiotics. ID Following Podiatric following Coronary artery disease Status post PCI. Stable. Continue home medications. Diabetes mellitus. Insulin-dependent. Uncontrolled. Hemoglobin A1c 10 Diabetes education consult Hypertension. Controlled. Resume home medications. Hydralazine IV as needed. CODE STATUS Full code GI and DVT prophylaxis. JAN 21 06:36 136 105 17 / H 119 4.0 30 1.00 \ JAN 21 06:36 \ 13.6 / 6.5 180 / 41.5 \ Vital Signs T: 36.4 ??C TMIN: 36.3 ??C TMAX: 36.6 ??C HR: 67(Monitored) RR: 18 BP: 125/81 SpO2: 97% Oxygen Settings (Last) Oxygen Therapy Mode: Room air (01/21/20 07:29:00) Physical Exam Chest clear to auscultation Discharge Disposition Home Discharge Follow Up CHERISE HOWELL - 01:40 PM MARA FLORES - 01:30 PM ADRIAN DELACRUZ DO-FAM - 10:00 AM Discharge Medications (10) Active aspirin 81 mg oral tablet 81 mg = 1 Tab, Oral, Daily cefTRIAXone 2 Gram, IV Piggyback, Daily Nidhi-Q 2 oral capsule 1 Cap, Oral, Daily Jardiance 25 mg oral tablet 25 mg = 1 Tab, Oral, QAM Lantus 100 units/mL subcutaneous solution 38 Units, SubCutaneous, At Bedtime Lipitor 40 mg oral tablet 40 mg = 1 Tab, Oral, At Bedtime NovoLOG 100 units/mL injectable solution 15 Units, SubCutaneous, BIDAC oxyCODONE 5 mg oral tablet 5 mg = 1 Tab, PRN, Oral, Q6H PriLOSEC OTC 20 mg oral delayed release tablet 20 mg = 1 Tab, Oral, Daily sertraline 100 mg oral tablet 200 mg = 2 Tab, Oral, Daily Code Status Start: 01/18/20 17:51:00 EST, Full Code, Continuous Order Condition on Discharge Stable to be discharged home Consulting Physicians BAYRON BARAKAT MD-INF (Infectious Disease) - foot cellulitis MARA FLORES MD-INF CHERISE HOWELL, DPM-TOMMY Current Diet Order Diet, Adult - Ordered -- Start: 01/18/20 17:51:00 EST, 75 gm [id number] arturo Patient Discharge Summary Orders Discharge Activity: Discharge Activity: Activity as tolerated Diet: Discharge Diet: Heart healthy diet Pending Labs Ordered CK Creatine Kinase Specimen Type: Blood, AM Draw collect, 01/27/20 4:00:00 EST, Monday, Lab Collect, Instructions: While on daptomycin.Per CK monitoring with Daptomycin policy. Culture Blood Specimen Type: Blood, Stat collect, 01/18/20 17:48:00 EST, Q15Min For: 2 Time(s), Stop: 01/18/20 18:03:00 EST, Lab Collect Preliminary Culture Anaerobic Specimen Type: Wound, From: Foot R, Routine collect, 01/19/20 12:32:00 EST, 1-Time, Stop: 01/19/20 12:33:00 EST, Nurse Collect Culture Wound and Stain Specimen Type: Wound, From: Foot R, Routine collect, 01/19/20 12:24:00 EST, 1-Time, Stop: 01/19/20 12:26:00 EST, Nurse Collect Time Spent on Discharge 45 minutes documented in this encounter Plan of Treatment Not on file documented as of this encounter Visit Diagnoses Not on filedocumented in this encounter
--- OUTSIDE RECORDS SUMMARY | 2025-05-03 09:52 | XMS_ITS | Referral Summary ---
Author Organization [employer] Address [address] [place] [id number] Care Team Providers Care Supervisor Corduroy Cutting Name Role Phone Unavailable Primary Care Provider [...]
--- OUTSIDE RECORDS SUMMARY | 2025-05-03 09:52 | XMS_ITS | Encounter Summary ---
Author Organization [employer] Address [address] [place] [address] Care Team Providers Care Shop Manager Name Role Phone Unavailable Primary Care Provider Unavailabl e Encounter Details Date Type Department Care Team (Late st Contact Info) Description 01/21/[address] [facility] [place] [address] [place] [address] ProviderLora MD [address] [place], [place] [address] Social History Tobacco Use Types Packs/Day Years Used Date Smoking Tobacco: Never Assessed Sex and Gender Information Value Date Recorded Sex Assigned at Not on file Legal Sex Male 5:25 PM CDT Gender Identity Not on file Sexual Orientation Not on file documented as of this encounter Miscellaneous Notes * Cerner Conversion Note - Lora Mcdaniel MD - 01/21/2020 11:17 AM MACHINE EGG WASHER Patient Education Materials Follows: Diabetes Mellitus and Nutrition, Adult When you have diabetes (diabetes mellitus), it is very important to have healthy eating habits because your blood sugar (glucose) levels are greatly affected by what you eat and drink. Eating healthy foods in the appropriate amounts, at about the same times every day, can help you: ??? Control your blood glucose. ??? Lower your risk of heart disease. ??? Improve your blood pressure. ??? Reach or maintain a healthy weight. Every person with diabetes is different, and each person has different needs for a meal plan. Your health care provider may recommend that you work with a diet and nutritionist (dietitian) to make a meal plan that is best for you. Your meal plan may vary depending on factors such as: ??? The calories you need. ??? The medicines you take. ??? Your weight. ??? Your blood glucose, blood pressure, and cholesterol levels. ??? Your activity level. ??? Other health conditions you have, such as heart or kidney disease. How do carbohydrates affect me? Carbohydrates, also called carbs, affect your blood glucose level more than any other type of food. Eating carbs naturally raises the amount of glucose in your blood. Carb counting is a method for keeping track of how many carbs you eat. Counting carbs is important to keep your blood glucose at a healthy level, especially if you use insulin or take certain oral diabetes medicines. It is important to know how many carbs you can safely have in each meal. This is different for every person. Your dietitian can help you calculate how many carbs you should have at each meal and for each snack. Foods that contain carbs include: ??? Bread, cereal, rice, pasta, and crackers. ??? Potatoes and corn. ??? Peas, beans, and lentils. ??? Milk and yogurt. ??? Fruit and juice. ??? Desserts, such as cakes, cookies, ice cream, and candy. How does alcohol affect me? Alcohol can cause a sudden decrease in blood glucose (hypoglycemia), especially if you use insulin or take certain oral diabetes medicines. Hypoglycemia can be a life-threatening condition. Symptoms of hypoglycemia (sleepiness, dizziness, and confusion) are similar to symptoms of having too much alcohol. If your health care provider says that alcohol is safe for you, follow these guidelines: ??? Limit alcohol intake to no more than 1 drink per day for non women and 2 drinks per day for men. One drink equals 12 oz of beer, 5 oz of wine, or 1? oz of hard liquor. ??? Do not drink on an empty stomach. ??? Keep yourself hydrated with water, diet soda, or unsweetened iced tea. ??? Keep in mind that regular soda, juice, and other mixers may contain a lot of sugar and must be counted as carbs. What are tips for following this plan? Reading food labels ??? Start by checking the serving size on the Nutrition Facts label of packaged foods and drinks. The amount of calories, carbs, fats, and other nutrients listed on the label is based on one serving of the item. Many items contain more than one serving per package. ??? Check the total grams (g) of carbs in one serving. You can calculate the number of servings of carbs in one serving by dividing the total carbs by 15. For example, if a food has 30 g of total carbs, it would be equal to 2 servings of carbs. ??? Check the number of grams (g) of saturated and trans fats in one serving. Choose foods that have low or no amount of these fats. ??? Check the number of milligrams (mg) of salt (sodium) in one serving. Most people should limit total sodium intake to less than 2,300 mg per day. ??? Always check the nutrition information of foods labeled as low-fat or nonfat . These foods may be higher in added sugar or refined carbs and should be avoided. ??? Talk to your dietitian to identify your daily goals for nutrients listed on the label. Shopping ??? Avoid buying canned, premade, or processed foods. These foods tend to be high in fat, sodium, and added sugar. ??? Shop around the outside edge of the grocery store. This includes fresh fruits and vegetables, bulk grains, fresh meats, and fresh dairy. Cooking ??? Use low-heat cooking methods, such as baking, instead of high-heat cooking methods like deep frying. ??? Cook using healthy oils, such as olive, canola, or sunflower oil. ??? Avoid cooking with butter, cream, or high-fat meats. Meal planning ??? Eat meals and snacks regularly, preferably at the same times every day. Avoid going long periods of time without eating. ??? Eat foods high in fiber, such as fresh fruits, vegetables, beans, and whole grains. Talk to your dietitian about how many servings of carbs you can eat at each meal. ??? Eat 4?6 ounces (oz) of lean protein each day, such as lean meat, chicken, fish, eggs, or tofu. One oz of lean protein is equal to: ? 1 oz of meat, chicken, or fish. ? 1 egg. ? ? cup of tofu. ??? Eat some foods each day that contain healthy fats, such as avocado, nuts, seeds, and fish. Lifestyle ??? Check your blood glucose regularly. ??? Exercise regularly as told by your health care provider. This may include: ? 150 minutes of moderate-intensity or vigorous-intensity exercise each week. This could be brisk walking, biking, or water aerobics. ? Stretching and doing strength exercises, such as yoga or weightlifting, at least 2 times a week. ??? Take medicines as told by your health care provider. ??? Do not use any products that contain nicotine or tobacco, such as cigarettes and e-cigarettes. If you need help quitting, ask your health care provider. ??? Work with a counselor or clinical educator to identify strategies to manage stress and any emotional and social challenges. Questions to ask a health care provider ??? Do I need to meet with a clinical educator? Do I need to meet with a dietitian? What number can I call if I have questions? When are the best times to check my blood glucose? Where to find more information: ??? [place] [employer] Association: diabetes.org ??? Academy of Nutrition and Dietetics: www.eatright.org ??? National [place] of Diabetes and Digestive and Kidney Diseases (NIH): www.niddk.nih.gov Summary ??? A healthy meal plan will help you control your blood glucose and maintain a healthy lifestyle. ??? Working with a diet and nutritionist (dietitian) can help you make a meal plan that is best for you. ??? Keep in mind that carbohydrates (carbs) and alcohol have immediate effects on your blood glucose levels. It is important to count carbs and to use alcohol carefully. This information is not intended to replace advice given to you by your health care provider. Make sure you discuss any questions you have with your health care provider. Document Released: 08/10/2006 Document Revised: 06/13/2018 Document Reviewed: 12/18/2017 [employer] Interactive Patient Education ? 2019 [employer] Carbohydrate Counting for Diabetes Mellitus, Adult Carbohydrate counting is a method of keeping track of how many carbohydrates you eat. Eating carbohydrates naturally increases the amount of sugar (glucose) in the blood. Counting how many carbohydrates you eat helps keep your blood glucose within normal limits, which helps you manage your diabetes (diabetes mellitus). It is important to know how many carbohydrates you can safely have in each meal. This is different for every person. A diet and nutritionist (registered dietitian) can help you make a meal plan and calculate how many carbohydrates you should have at each meal and snack. Carbohydrates are found in the following foods: ??? Grains, such as breads and cereals. ??? Dried beans and soy products. ??? Starchy vegetables, such as potatoes, peas, and corn. ??? Fruit and fruit juices. ??? Milk and yogurt. ??? Sweets and snack foods, such as cake, cookies, candy, chips, and soft drinks. How do I count carbohydrates? There are two ways to count carbohydrates in food. You can use either of the methods or a combination of both. Reading Nutrition Facts on packaged food The Nutrition Facts list is included on the labels of almost all packaged foods and beverages in the [place] It includes: ??? The serving size. ??? Information about nutrients in each serving, including the grams (g) of carbohydrate per serving. To use the ?Nutrition Facts : ??? Decide how many servings you will have. ??? Multiply the number of servings by the number of carbohydrates per serving. ??? The resulting number is the total amount of carbohydrates that you will be having. Learning standard serving sizes of other foods When you eat carbohydrate foods that are not packaged or do not include Nutrition Facts on the label, you need to measure the servings in order to count the amount of carbohydrates: ??? Measure the foods that you will eat with a food scale or measuring cup, if needed. ??? Decide how many standard-size servings you will eat. ??? Multiply the number of servings by 15. Most carbohydrate-rich foods have about 15 g of carbohydrates per serving. ? For example, if you eat 8 oz (170 g) of strawberries, you will have eaten 2 servings and 30 g of carbohydrates (2 servings x 15 g = 30 g). ??? For foods that have more than one food mixed, such as soups and casseroles, you must count the carbohydrates in each food that is included. The following list contains standard serving sizes of common carbohydrate-rich foods. Each of these servings has about 15 g of carbohydrates: ? hamburger bun or ? [place] muffin. ? oz (15 mL) syrup. ? oz (14 g) jelly. ??? 1 slice of bread. ??? 1 six-inch tortilla. ??? 3 oz (85 g) cooked rice or pasta. ??? 4 oz (113 g) cooked dried beans. ??? 4 oz (113 g) starchy vegetable, such as peas, corn, or potatoes. ??? 4 oz (113 g) hot cereal. ??? 4 oz (113 g) mashed potatoes or ? of a large baked potato. ??? 4 oz (113 g) canned or frozen fruit. ??? 4 oz (120 mL) fruit juice. ??? 4?6 crackers. ??? 6 chicken nuggets. ??? 6 oz (170 g) unsweetened dry cereal. ??? 6 oz (170 g) plain fat-free yogurt or yogurt sweetened with artificial sweeteners. ??? 8 oz (240 mL) milk. ??? 8 oz (170 g) fresh fruit or one small piece of fruit. ??? 24 oz (680 g) popped popcorn. Example of carbohydrate counting Sample meal ??? 3 oz (85 g) chicken breast. ??? 6 oz (170 g) brown rice. ??? 4 oz (113 g) corn. ??? 8 oz (240 mL) milk. ??? 8 oz (170 g) strawberries with sugar-free whipped topping. Carbohydrate calculation 1. Identify the foods that contain carbohydrates: ??? Rice. ??? [place]. ??? Milk. ??? Strawberries. 2. Calculate how many servings you have of each food: ??? 2 servings rice. ??? 1 serving corn. ??? 1 serving milk. ??? 1 serving strawberries. 3. Multiply each number of servings by 15 g: ??? 2 servings rice x 15 g = 30 g. ??? 1 serving corn x 15 g = 15 g. ??? 1 serving milk x 15 g = 15 g. ??? 1 serving strawberries x 15 g = 15 g. 4. Add together all of the amounts to find the total grams of carbohydrates eaten: ??? 30 g + 15 g + 15 g + 15 g = 75 g of carbohydrates total. Summary ??? Carbohydrate counting is a method of keeping track of how many carbohydrates you eat. ??? Eating carbohydrates naturally increases the amount of sugar (glucose) in the blood. ??? Counting how many carbohydrates you eat helps keep your blood glucose within normal limits, which helps you manage your diabetes. ??? A diet and nutritionist (registered dietitian) can help you make a meal plan and calculate how many carbohydrates you should have at each meal and snack. This information is not intended to replace advice given to you by your health care provider. Make sure you discuss any questions you have with your health care provider. Document Released: 11/13/2006 Document Revised: 05/23/2018 Document Reviewed: 04/26/2017 [employer] Interactive Patient Education ? 2019 [employer] Incision and Drainage, Care After Refer to this sheet in the next few weeks. These instructions provide you with information about caring for yourself after your procedure. Your health care provider may also give you more specific instructions. Your treatment has been planned according to current medical practices, but problems sometimes occur. Call your health care provider if you have any problems or questions after your procedure. What can I expect after the procedure? After the procedure, it is common to have: ??? Pain or discomfort around your incision site. ??? Drainage from your incision. Follow these instructions at home: ??? Take [id number] and prescription medicines only as told by your health care provider. ??? If you were prescribed an antibiotic medicine, take it as told by your health care provider.?Do not stop taking the antibiotic even if you start to feel better. ??? Follow?instructions from your health care provider about: ? How to take care of your incision. ? When and how you should change your packing and bandage (dressing). Wash your hands with soap and water before you change your dressing. If soap and water are not available, use hand commercial leasing agent. ? When you should remove your dressing. ??? Do not take baths, swim, or use a hot tub until your health care provider approves. ??? Keep all follow-up visits as told by your health care provider. This is important. ??? Check your incision area every day for signs of infection. Check for: ? More redness, swelling, or pain. ? More fluid or blood. ? Warmth. ? Pus or a bad smell. Contact a health care provider if: ??? Your cyst or abscess returns. ??? You have a fever. ??? You have more redness, swelling, or pain around your incision. ??? You have more fluid or blood coming from your incision. ??? Your incision feels warm to the touch. ??? You have pus or a bad smell coming from your incision. Get help right away if: ??? You have severe pain or bleeding. ??? You cannot eat or drink without vomiting. ??? You have decreased urine output. ??? You become short of breath. ??? You have chest pain. ??? You cough up blood. ??? The area where the incision and drainage occurred becomes numb or it tingles. This information is not intended to replace advice given to you by your health care provider. Make sure you discuss any questions you have with your health care provider. Document Released: 02/04/2013 Document Revised: 04/14/2017 Document Reviewed: 09/02/2016 View[employer] Interactive Patient Education ? 2019 [employer]. Diabetes and Foot Care Diabetes may cause you to have problems because of poor blood supply (circulation) to your feet and legs. This may cause the skin on your feet to become thinner, break easier, and heal more slowly. Your skin may become dry, and the skin may peel and crack. You may also have nerve damage in your legs and feet causing decreased feeling in them. You may not notice minor injuries to your feet that could lead to infections or more serious problems. Taking care of your feet is one of the most important things you can do for yourself. Follow these instructions at home: ??? Wear shoes at all times, even in the house. Do not go barefoot. Bare feet are easily injured. ??? Check your feet daily for blisters, cuts, and redness. If you cannot see the bottom of your feet, use a mirror or ask someone for help. ??? Wash your feet with warm water (do not use hot water) and mild soap. Then pat your feet and the areas between your toes until they are completely dry. Do not soak your feet as this can dry your skin. ??? Apply a moisturizing lotion or petroleum jelly (that does not contain alcohol and is unscented) to the skin on your feet and to dry, brittle toenails. Do not apply lotion between your toes. ??? Trim your toenails straight across. Do not dig under them or around the cuticle. File the edges of your nails with an emery board or nail file. ??? Do notcut corns or calluses or try to remove them with medicine. ??? Wear clean socks or stockings every day. Make sure they are not too tight. Do not wear knee-high stockings since they may decrease blood flow to your legs. ??? Wear shoes that fit properly and have enough cushioning. To break in new shoes, wear them for just a few hours a day. This prevents you from injuring your feet. Always look in your shoes before you put them on to be sure there are no objects inside. ??? Do notcross your legs. This may decrease the blood flow to your feet. ??? If you find a minor scrape, cut, or break in the skin on your feet, keep it and the skin around it clean and dry. These areas may be cleansed with mild soap and water. Do not cleanse the area with peroxide, alcohol, or iodine. ??? When you remove an adhesive bandage, be sure not to damage the skin around it. ??? If you have a wound, look at it several times a day to make sure it is healing. ??? Do notuse heating pads or hot water bottles. They may burn your skin. If you have lost feeling in your feet or legs, you may not know it is happening until it is too late. ??? Make sure your health care provider performs a complete foot exam at least annually or more often if you have foot problems. Report any cuts, sores, or bruises to your health care provider immediately. Contact a health care provider if: ??? You have an injury that is not healing. ??? You have cuts or breaks in the skin. ??? You have an ingrown nail. ??? You notice redness on your legs or feet. ??? You feel burning or tingling in your legs or feet. ??? You have pain or cramps in your legs and feet. ??? Your legs or feet are numb. ??? Your feet always feel cold. Get help right away if: ??? There is increasing redness, swelling, or pain in or around a wound. ??? There is a red line that goes up your leg. ??? Pus is coming from a wound. ??? You develop a fever or as directed by your health care provider. ??? You notice a bad smell coming from an ulcer or wound. This information is not intended to replace advice given to you by your health care provider. Make sure you discuss any questions you have with your health care provider. Document Released: 11/10/2001 Document Revised: 04/20/2017 Document Reviewed: 04/22/2014 Elsevier Interactive Patient Education ? 2017 [employer] documented in this encounter Plan of Treatment Not on file documented as of this encounter Visit Diagnoses Not on filedocumented in this encounter
--- OUTSIDE RECORDS SUMMARY | 2025-05-03 09:52 | XMS_ITS | Encounter Summary ---
Author Organization [employer] Address [address] [place] [address] Care Team Providers Care Clothes Model Name Role Phone Unavailable Primary Care Provider Unavailabl e Encounter Details Date Type Department Care Team (Late st Contact Info) Description 01/19/2020 Transcribed Document [facility] [place] [address] [place] [address] ProviderLora MD [address] [place], [place] [id number] Social History Tobacco Use Types Packs/Day Years Used Date Smoking Tobacco: Never Assessed Sex and Gender Information Value Date Recorded Sex Assigned at Not on file Legal Sex Male 5:25 PM CDT Gender Identity Not on file Sexual Orientation Not on file documented as of this encounter Miscellaneous Notes * Cerner Conversion Note - Historical ProviderMD - 01/19/2020 2:00 AM RN RENAL Chief Of Vital Statistics Details Entered On: 01/19/2020 3:19 EST Performed On: 01/19/2020 2:00 EST by Mary Jane Burnham RN Order Details Transport Mode Order Detail : Wheelchair Isolation Precautions Order Detail : Standard Precautions Order Detail : N/A IV Order Detail : 1 Oxygen Order Detail : 0 Nurse Collect Order Detail : 0 Lift/Transfer : Independent Central Line Order Detail : No Room Service : Appropriate Arterial Line : No Mary Jane Burnham RN - 01/19/2020 3:19 EST documented in this encounter Plan of Treatment Not on file documented as of this encounter Visit Diagnoses Not on filedocumented in this encounter
--- OUTSIDE RECORDS SUMMARY | 2025-05-03 09:52 | XMS_ITS | Encounter Summary ---
Author Organization [employer] Address [address] [place] [address] Care Team Providers Care Basketball Player Name Role Phone Unavailable Primary Care Provider Unavailabl e Encounter Details Date Type Department Care Team (Late st Contact Info) Description 01/20/2020 Transcribed Document [facility] [place] Medicine [address] [place] [address] ProviderLora MD [address] [place], [place] [id number] Social History Tobacco Use Types Packs/Day Years Used Date Smoking Tobacco: Never Assessed Sex and Gender Information Value Date Recorded Sex Assigned at Not on file Legal Sex Male 5:25 PM CDT Gender Identity Not on file Sexual Orientation Not on file documented as of this encounter Miscellaneous Notes * Cerner Conversion Note - Historical ProviderMD - 01/20/2020 2:00 AM LANGUAGE AND LITERATURE DIVISION CHAIR Rn Medication Details Entered On: 01/20/2020 3:34 EST Performed On: 01/20/2020 2:00 EST by Mary Jane Burnham RN Order Details Transport Mode Order Detail : Wheelchair Isolation Precautions Order Detail : Standard Precautions Order Detail : N/A Lift/Transfer : Independent Central Line Order Detail : No Room Service : Appropriate Arterial Line : No Mary Jane Burnham RN - 01/20/2020 3:34 EST documented in this encounter Plan of Treatment Not on file documented as of this encounter Visit Diagnoses Not on filedocumented in this encounter
--- OUTSIDE RECORDS SUMMARY | 2025-05-03 09:52 | XMS_ITS | Encounter Summary ---
Author Organization [facility] Address [address] [place] [address] Care Team Providers Care Associate Software Developer Name Role Phone Unavailable Primary Care Provider Unavailabl e Encounter Details Date Type Department Care Team (Late st Contact Info) Description 01/20/2020 Transcribed Document [facility] Cardiology [address] [place] [address] Jayjay Samayoa MD [address] [place] [address] Social History Tobacco Use Types Packs/Day Years Used Date Smoking Tobacco: Never Assessed Sex and Gender Information Value Date Recorded Sex Assigned at Not on file Legal Sex Male 5:25 PM CDT Gender Identity Not on file Sexual Orientation Not on file documented as of this encounter Miscellaneous Notes * Cerner Conversion Note - Jayjay Samayoa MD - 01/20/2020 8:33 AM EST Patient: JONATHAN DELGADO Age: 49 years Sex: Male : 1970 Associated Diagnoses: None Author: JAYJAY SAMAYOA MD-CAR Basic Information Vacuum Caster: Dr Sibley ([facility] for caths) Subjective NAD Health Status Current medications: (Selected) Inpatient Medications Ordered Ativan: 0.5 mg, IV Push, Q4H, PRN: Agitation DAPTOmycin + Sodium Chloride 0.9% intravenous solution 50 mL: 900 mg, 18 mL, 136 mL/Hr, IV Piggyback, [id number] DAPTOmycin + Sodium Chloride 0.9% intravenous solution 50 mL: 900 mg, 18 mL, 136 mL/Hr, IV Piggyback, [id number] DuoNeb 0.5 mg-2.5 mg/3 mL inhalation solution: 3 mL, Nebulized Inhalation, Q2H, PRN: Shortness of Breath DuoNeb 0.5 mg-2.5 mg/3 mL inhalation solution: 3 mL, Nebulized Inhalation, Q2H, PRN: Shortness of Breath Lantus: 18 Units, SubCutaneous, Daily Normal Saline 1,000 mL: 75 mL/Hr, IntraVENous Pepcid: 20 mg, Oral, Daily Phenergan: 6.25 mg, IntraVENous, Q6H, PRN: Nausea Rocephin + Sodium Chloride 0.9% intravenous solution 50 mL: 2 Gram, 100 mL/Hr, IV Piggyback, [id number] Tylenol: 650 mg, Oral, Q4H, PRN: Other (See Comment) Zofran: 4 mg, IV Push, Q4H, PRN: Nausea aspirin: 81 mg, Oral, Daily atorvastatin: 40 mg, Oral, At Bedtime cloNIDine: 0.1 mg, Oral, Q4H, PRN: Hypertension heparin: 5,000 Units, SubCutaneous, Q8H hydrALAZINE: 10 mg, IV Push, Q6H, PRN: Hypertension insulin lispro sliding scale: Scale D:, SubCutaneous, AC and at Bedtime oxyCODONE: 5 mg, Oral, Q4H, PRN: Pain (Severe 7-10) sertraline: 200 mg, Oral, Daily traZODone: 50 mg, Oral, At Bedtime, PRN: Insomnia, Home Medications (6) Active aspirin 81 mg, Oral, Daily atorvastatin 40 mg, Oral, At Bedtime insulin lispro 15 Units, SubCutaneous, TID With Meals omeprazole 20 mg, Oral, Daily sertraline 100 mg oral tablet 200 mg = 2 Tab, Oral, Daily traZODone 50 mg, PRN, Oral, At Bedtime Problem list: Active Problems (11) Angina Coronary artery disease Diabetes mellitus type II GERD - Gastro-esophageal reflux disease History of obstructive sleep apnea Hyperlipidemia Hypertension Impaired vision in both eyes Migraine Prostate infection Stented coronary artery Objective VS/Measurements Vitals Signs (last 24 hrs) Last Charted Minimum Maximum Temp 98 (JAN 20 03:22) 97.3 (JAN 19 14:45) 98.1 (JAN 19:27) Mon HR 66 (JAN 20 03:22) 66 (JAN 20 03:22) 81 (JAN 19 10:55) Resp Rate 18 (JAN 20:22) 17 (JAN 19 10:55) 20 (JAN 19:) SBP 106 (JAN 20:22) 104 (JAN 19:27) 115 (JAN 19 10:55) DBP 71 (JAN 20:22) 69 (JAN 19:27) 78 (JAN 19 14:45) MAP 82 (JAN 20:22) 81 (JAN 19:27) 90 (JAN 19 14:45) SpO2 94 (JAN 20:) L 92 (JAN 19:) 94 (JAN 19 14:45) General: Alert and oriented, No acute distress. Eye: Pupils are equal, round and reactive to light, Normal conjunctiva, Vision unchanged. HENT: Normocephalic. Neck: Supple, Non-tender, No carotid bruit, No jugular venous distention. Respiratory: Lungs are clear to auscultation, Respirations are non-labored, Breath sounds are equal, Symmetrical chest wall expansion. Cardiovascular: Normal rate, Regular rhythm, No murmur, right foot- good DP/PT pulse left foot with dressing present. unable to assess pulse. . Gastrointestinal: Soft, Non-distended, Normal bowel sounds. Musculoskeletal: Normal range of motion, Normal strength. Integumentary: Warm, Dry, [place]. Neurologic: Alert, Oriented. Psychiatric: Cooperative, Appropriate mood & affect. Results Review JAN 20 06:38 \ 13.9 / 6.5 190 / 42.9 \ Radiology Results (Last 48 hours) [id number] -- 01/19/2020 15:12 CR Chest 2 Vws (01/19/2020 08:45) Result: LEFT FOOT SERIESHISTORY: Left foot pain. Plantar swellingFINDINGS: Three views show no evidence of an acute, displaced fractureor dislocation of the visualized bony architecture. The joint spacesappear normal. IMPRESSION: No acute fracture.TWO VIEW CHESTHISTORY: Difficulty breathing, cough.COMPARISON: November 2015.FINDINGS: The cardiac silhouette is normal in size. The mediastinumis unremarkable. The lungs are clear. There is no pneumothorax. Theosseous structures are unremarkable. IMPRESSION: No acute cardiopulmonary process.Images reviewed, interpreted, and dictated by Dr. Dewayne Javed.Transcribed by Jaycee Christianson PA-C.I have personally viewed, interpreted and dictated the examination. Ihbright read and agree with the above final transcribed report. CR Foot Comp Min 3 Vws LT (01/19/2020 08:50) Result: LEFT FOOT SERIESHISTORY: Left foot pain. Plantar swellingFINDINGS: Three views show no evidence of an acute, displaced fractureor dislocation of the visualized bony architecture. The joint spacesappear normal. IMPRESSION: No acute fracture.TWO VIEW CHESTHISTORY: Difficulty breathing, cough.COMPARISON: November 2015.FINDINGS: The cardiac silhouette is normal in size. The mediastinumis unremarkable. The lungs are clear. There is no pneumothorax. Theosseous structures are unremarkable. IMPRESSION: No acute cardiopulmonary process.Images reviewed, interpreted, and dictated by Dr. Dewayne Javed.Transcribed by Jaycee Christianson PA-C.I have personally viewed, interpreted and dictated the examination. Ihbright read and agree with the above final transcribed report. Impression and Plan IMPRESSION: Left foot Cellulitis -arterial duplex ordered to r/o PVD ASCVD -prior PCI 2013 HTN HLD DM PLAN; 01/20/2020 Lower extremity arterial studies pending. If no significant concerning findings no indication for further cardiac evaluation at this time Continue aspirin, statin Follow-up with primary senior devops engineer in 2 weeks 01/19/2020 I do not think that this is an arterial ulcer - there is no pain and it is at a pressure point, not the distal digit. Agree with arterial duplex. He has CAD, so ASA and a statin is reasonable. If the arterial study is normal, he can be sent back to Dr. Cruz for his PAD evaluation. documented in this encounter Plan of Treatment Not on file documented as of this encounter Visit Diagnoses Not on filedocumented in this encounter
--- OUTSIDE RECORDS SUMMARY | 2025-05-03 09:52 | XMS_ITS | Encounter Summary ---
Author Organization [employer] Address [address] [place] [address] Care Team Providers Care Anatomic Pathology Manager Name Role Phone Unavailable Primary Care Provider Unavailabl e Encounter Details Date Type Department Care Team (Late st Contact Info) Description 01/21/2020 Transcribed Document [facility] [place] [facility] [place] [address] ProviderLora MD [address] [place] [address] Social History Tobacco Use Types Packs/Day Years Used Date Smoking Tobacco: Never Assessed Sex and Gender Information Value Date Recorded Sex Assigned at Not on file Legal Sex Male 5:25 PM CDT Gender Identity Not on file Sexual Orientation Not on file documented as of this encounter Miscellaneous Notes * Cerner Conversion Note - Lora ProviderMD - 01/21/2020 1:00 PM LADLE WATCHER [facility] [place] [address] JONATHAN DELGADO :1970 Visit Time:01/19/2020 Your Visit Summary Your Care Team Admitting Physician - PARESH CARRASCO MD-INT Attending Physician - PARESH CARRASCO MD-INT Primary Care Physician - ADRIAN DELACRUZ DO-FAM Referring Physician - JARETT RAMSAY (REF, -KIERAN Your Diagnosis Foot ulcer due to secondary DM Non-pressure chronic ulcer of other part of unspecified foot with unspecified severity, Non-pressure chronic ulcer of other part of unspecified foot with unspecified severity These Are Your Goals resolve infection/ possible osteo iv abx if needed, heal foot ulcer - Not met What to do next Instructions From Your Care Team FOLLOW UP APPT TO BE MADE ON MONDAY WITH DR HOWELL(PODIATRY) AND LEAVE DRESSING ON UNTIL SEEN BY DR HOWELL IN OFFICE Discharge Activity: Discharge Activity: Activity as tolerated Diet: Discharge Diet: Heart healthy diet Follow-Up Appointments Follow Up with ADRIAN DELACRUZ DO-FAM When 02/03/2020 10:00 AM EDT Comments Appointment has been made Bring discharge instructions with you Bring Ins Card, Photo ID, Ins Co-pay Where: [address] [place] [address]- Follow Up with CHERISE HOWELL When 01/27/2020 01:40 PM EST Comments Appointment has been made Bring discharge instructions with you Bring Ins Card, Photo ID, Ins Co-pay Where: [address] [facility] [facility] [address] [place] [address]- Business (1) Follow Up with MARA FLORES When 01/22/2020 01:30 PM EST Comments Appointment has been madeBring discharge instructions with you Bring Ins Card, Photo ID, Ins Co-pay Where: [address] [facility] [address] [place] [address]- Business (1) Medications What How Much When Instructions Next Dose atorvastatin (Lipitor 40 mg oral tablet) 1 Tablet(s) Oral At Bedtime Duration: 30 Day(s) Printed Prescription 01/21/2020 cefTRIAXone 2 Gram(s) IV Piggyback Every Day 01/22/2020 lactobacillus acidophilus (Nidhi-Q 2 oral capsule) 1 Capsule(s) Oral Every Day Duration: 14 Day(s) Printed Prescription 01/22/2020 oxyCODONE (oxyCODONE 5 mg oral tablet) 1 Tablet(s) Oral Every 6 Hours as needed for Pain (Severe 7-10) Duration: 3 Day(s) Printed Prescription as needed aspirin (aspirin 81 mg oral tablet) 1 Tablet(s) Oral Every Day 01/22/2020 empagliflozin (Jardiance 25 mg oral tablet) 1 Tablet(s) Oral Every Morning 01/22/2020 insulin aspart (NovoLOG 100 units/ mL injectable solution) 15 Unit(s) SubCutaneous Twice a Day Before Meals Adjusts per sliding scale 01/21/2020 insulin glargine (Lantus 100 units/ mL subcutaneous solution) 38 Unit(s) SubCutaneous At Bedtime 01/22/2020 omeprazole (PriLOSEC OTC 20 mg oral delayed release tablet) 1 Tablet(s) Oral Every Day 01/22/2020 sertraline (sertraline 100 mg oral tablet) 2 Tablet(s) Oral Every Day 01/22/2020 Take your medications faithfully. Do NOT skip medication. Do NOT stop taking medications without the direction of a physician. Carry a list of your medications with you at all times, and take this medication list with you to your first follow up visit. Report any side effects. Avoid herbal remedies unless discussed with your physician. As part of your treatment plan, your physician may have prescribed a limited course of a controlled substance. This medication may be given to help people with moderate or severe pain or for other medical conditions, but there are risks involved with treatment. Common side effects may include nausea, constipation, drowsiness, sweating, itching, dry mouth, and rash. More serious side effects may include cognitive and motor impairment, like problems with thinking, concentrating, alertness, and movement (e.g. slowed reflexes), and driving and operating heavy machinery can be dangerous. It is important for you to talk to your physician if you have these side effects or questions. These controlled substances can produce physical dependence and be habit-forming if taken for an extended period of time, which means that the body has gotten used to them and may experience withdrawal symptoms if they are abruptly stopped. Withdrawal symptoms can include runny nose, sweating, goose bumps, diarrhea, abdominal cramping, rapid heartbeat, difficulty sleeping, and nervousness. Please dispose of unused and medications per your retail pharmacy guidance. Allergies penicillin Immunizations This Visit No Immunizations Found Stroke/TIA Instructions Individualized Stroke Risk Factors Individualized Stroke Risk Factors *Q: Hypertension/High blood pressure Stroke/TIA Signs/Symptoms to Report Immediately: Sudden onset difficulty speaking, Sudden onset difficulty understanding speech, Sudden onset change in vision, Sudden onset weakness particulary on one side of the body, Sudden onset numbness/tingling, Sudden severe headache, Sudden dizziness or trouble with gait, Call : EMS activation is crucial Mutually Agreed Upon Goals My LDL Level: My LDL Level: Education Materials Diabetes Mellitus and Nutrition, Adult When you [...] that you work with a diet and customer management specialist (dietitian) to make a meal plan that [...] of beer, 5 oz of wine, or 1?? oz of hard liquor. ??? Do not [...] can eat at each meal. ??? Eat 4???6 ounces (oz) of lean protein each day, such as lean meat, chicken, fish, eggs, or tofu. One oz of lean protein is equal to: ? 1 oz of meat, chicken, or fish. ? 1 egg. ? ?? cup of tofu. ??? Eat some foods [...] provider. ??? Work with a counselor or nursing educator to identify strategies to manage stress and any emotional and social challenges. Questions to ask a health care provider ??? Do I need to meet with a nursing educator? Do I need to meet with a dietitian? What number can I call if I have questions? When are the best times to check my blood glucose? Where to find more information: ??? [place] [employer]: diabetes.org ??? Academy of Nutrition and Dietetics: www.eatright.org ??? National [employer] Train of Diabetes and Digestive and Kidney Diseases (NIH): www.niddk.nih.gov Summary ??? A healthy meal plan will help you control your blood glucose and maintain a healthy lifestyle. ??? Working with a diet and customer management specialist (dietitian) can help you make a meal [...] 08/10/2006 Document Revised: 06/13/2018 Document Reviewed: 12/18/2017 [employer] Interactive Patient Education ?? 2019 [employer] Carbohydrate Counting for Diabetes Mellitus, Adult [...] different for every person. A diet and customer management specialist (registered dietitian) can help you make a [...] of carbohydrate per serving. To use the ???Nutrition Facts : ??? Decide how many servings [...] g of carbohydrates: ? hamburger bun or ?? Malawian muffin. ? oz (15 mL) syrup. ? [...] 4 oz (113 g) mashed potatoes or ?? of a large baked potato. ??? 4 oz (113 g) canned or frozen fruit. ??? 4 oz (120 mL) fruit juice. ??? 4???6 crackers. ??? 6 chicken nuggets. ??? 6 [...] foods that contain carbohydrates: ??? Rice. ??? Woodruff. ??? Milk. ??? Strawberries. 2. Calculate how [...] manage your diabetes. ??? A diet and customer management specialist (registered dietitian) can help you make a meal plan and calculate how many carbohydrates you should have at each meal and snack. This information is not intended to replace advice given to you by your health care provider. Make sure you discuss any questions you have with your health care provider. Document Released: 11/13/2006 Document Revised: 05/23/2018 Document Reviewed: 04/26/2017 [employer] Interactive Patient Education ?? 2019 [employer] Incision and Drainage, Care After Refer [...] Follow these instructions at home: ??? Take ycfn-tpf-gxoxulk and prescription medicines only as told by your health care provider. ??? If you were prescribed an antibiotic medicine, take it as told by your health care provider. Do not stop taking the antibiotic even if you start to feel better. ??? Follow instructions from your health care provider about: ? How to take care of your incision. ? When and how you should change your packing and bandage (dressing). Wash your hands with soap and water before you change your dressing. If soap and water are not available, use hand innovations paraprofessional. ? When you should remove your dressing. [...] 02/04/2013 Document Revised: 04/14/2017 Document Reviewed: 09/02/2016 [employer] Interactive Patient Education ?? 2019 [employer] Diabetes and Foot Care Diabetes may cause [...] 11/10/2001 Document Revised: 04/20/2017 Document Reviewed: 04/22/2014 [employer] Interactive Patient Education ?? 2017 [employer]. oxycodone (ox i KOE done) Oxaydo, OxyCONTIN, Oxyfast, Roxicodone, Xtampza ER What is the most important information I should know about oxycodone? MISUSE OF OPIOID MEDICINE CAN CAUSE ADDICTION, OVERDOSE, OR . Keep the medication in a place where others cannot get to it. Taking opioid medicine during may cause life-threatening withdrawal symptoms in the . Fatal side effects can occur if you use opioid medicine with alcohol, or with other drugs that cause drowsiness or slow your breathing. What is oxycodone? Oxycodone is an opioid pain medication used to treat moderate to severe pain. The extended-release form of oxycodone is for flpvig-lxv-gkesz treatment of pain and should not be used on an as-needed basis for pain. Oxycodone may also be used for purposes not listed in this medication guide. What should I discuss with my healthcare provider before using oxycodone? You should not use oxycodone if you are allergic to it, or if you have: ?? severe asthma or breathing problems; or ?? a blockage in your stomach or intestines. You should not use oxycodone unless you are already using a similar opioid medicine and are tolerant to it. Most brands of oxycodone are not approved for use in people under 18. OxyContin should not be given to a child younger than 11 years old. Tell your doctor if you have ever had: ?? breathing problems, sleep apnea; ?? a head injury, or seizures; ?? drug or alcohol addiction, or mental illness; ?? liver or kidney disease; ?? urination problems; or ?? problems with your gallbladder, pancreas, or thyroid. If you use opioid medicine while you are , your baby could become dependent on the drug. This can cause life-threatening withdrawal symptoms in the baby after it is born. Babies born dependent on opioids may need medical treatment for several weeks. Do not breast-feed. Oxycodone can pass into breast milk and may cause drowsiness, breathing problems, or in a nursing baby. How should I use oxycodone? Follow the directions on your prescription label and read all medication guides. Never use oxycodone in larger amounts, or for longer than prescribed. Tell your doctor if you feel an increased urge to take more of this medicine. Never share opioid medicine with another person, especially someone with a history of drug abuse or addiction. MISUSE CAN CAUSE ADDICTION, OVERDOSE, OR . Keep the medication in a place where others cannot get to it. Selling or giving away opioid medicine is against the law. Stop taking all other gcyotu-nmm-xorqt narcotic pain medicines when you start taking extended-release oxycodone. Take oxycodone with food. Swallow the capsule or tablet whole to avoid exposure to a potentially fatal overdose. Do not crush, chew, break, open, or dissolve. Never crush or break an oxycodone pill to inhale the powder or mix it into a liquid to inject the drug into your vein. This can cause in . Measure liquid medicine carefully. Use the dosing syringe provided, or use a medicine dose-measuring device (not a kitchen spoon). You should not stop using oxycodone suddenly. Follow your doctor's instructions about tapering your dose. Store at room temperature, away from heat, moisture, and light. Keep track of your medicine. Oxycodone is a drug of abuse and you should be aware if anyone is using your medicine improperly or without a prescription. Do not keep leftover opioid medication. Just one dose can cause in someone using this medicine accidentally or improperly. Ask your pharmacist where to locate a drug take-back disposal program. If there is no take-back program, flush the unused medicine down the toilet. What happens if I miss a dose? Since oxycodone is used for pain, you are not likely to miss a dose. Skip any missed dose if it is almost time for your next dose. Do not use two doses at one time. What happens if I overdose? Seek emergency medical attention or call the Poison Help line at . An oxycodone overdose can be fatal, especially in a child or other person using the medicine without a prescription. Overdose can cause severe muscle weakness, pinpoint pupils, very slow breathing, extreme drowsiness, or coma. What should I avoid while using oxycodone? Do not drink alcohol. Dangerous side effects or could occur. Avoid driving or operating machinery until you know how oxycodone will affect you. Dizziness or severe drowsiness can cause falls or other accidents. Avoid medication errors. Always check the brand and strength of oxycodone you get from the pharmacy. What are the possible side effects of oxycodone? Get emergency medical help if you have signs of an allergic reaction: hives; difficult breathing; swelling of your face, lips, tongue, or throat. Opioid medicine can slow or stop your breathing, and may occur. A person caring for you should seek emergency medical attention if you have slow breathing with long pauses, blue colored lips, or if you are hard to wake up. Call your doctor at once if you have: ?? noisy breathing, sighing, shallow breathing, breathing that stops during sleep; ?? a slow heart rate or weak pulse; ?? a light-headed feeling, like you might pass out; ?? confusion, unusual thoughts or behavior; ?? seizure (convulsions); or ?? low cortisol levels-- nausea, vomiting, loss of appetite, dizziness, worsening tiredness or weakness. Seek medical attention right away if you have symptoms of serotonin syndrome, such as: agitation, confusion, fever, sweating, fast heart rate, chest pain, feeling short of breath, muscle stiffness, trouble walking, or feeling faint. Serious side effects may be more likely in older adults and those who are malnourished or debilitated. Long-term use of opioid medication may affect fertility (ability to have children) in men or women. It is not known whether opioid effects on fertility are permanent. Common side effects may include: ?? drowsiness, headache, dizziness, tiredness; or ?? constipation, stomach pain, nausea, vomiting. This is not a complete list of side effects and others may occur. Call your doctor for medical advice about side effects. You may report side effects to FDA at 5-816-NBS-4626. What other drugs will affect oxycodone? You may have breathing problems or withdrawal symptoms if you start or stop taking certain other medicines. Tell your doctor if you also use an antibiotic, antifungal medication, heart or blood pressure medication, seizure medication, or medicine to treat HIV or hepatitis C. Opioid medication can interact with many other drugs and cause dangerous side effects or . Be sure your doctor knows if you also use: ?? cold or allergy medicines, bronchodilator asthma/COPD medication, or a diuretic ('water pill'); ?? medicines for motion sickness, irritable bowel syndrome, or overactive bladder; ?? other narcotic medications--opioid pain medicine or prescription cough medicine; ?? a sedative like Valium--diazepam, alprazolam, lorazepam, Xanax, Klonopin, Versed, and others; ?? drugs that make you sleepy or slow your breathing--a sleeping pill, muscle relaxer, medicine to treat mood disorders or mental illness; or ?? drugs that affect serotonin levels in your body--a stimulant, or medicine for depression, Parkinson's disease, migraine headaches, serious infections, or nausea and vomiting. This list is not complete and many other drugs may affect oxycodone. This includes prescription and gkvs-dmj-vywcswn medicines, vitamins, and herbal products. Not all possible drug interactions are listed here. Where can I get more information? Your pharmacist can provide more information about oxycodone. Remember, keep this and all other medicines out of the reach of children, never share your medicines with others, and use this medication only for the indication prescribed. Every effort has been made to ensure that the information provided by [employer]. ('[employer]') is accurate, up-to-date, and complete, but no guarantee is made to that effect. Drug information contained herein may be time sensitive. [employer] information has been compiled for use by healthcare practitioners and consumers in the [place] and therefore [employer] does not warrant that uses outside of the [place] are appropriate, unless specifically indicated otherwise. [employer] drug information does not endorse drugs, diagnose patients or recommend therapy. [employer] drug information is an informational resource designed to assist licensed healthcare practitioners in caring for their patients and/or to serve consumers viewing this service as a supplement to, and not a substitute for, the expertise, skill, knowledge and judgment of healthcare practitioners. The absence of a warning for a given drug or drug combination in no way should be construed to indicate that the drug or drug combination is safe, effective or appropriate for any given patient. [employer] does not assume any responsibility for any aspect of healthcare administered with the aid of information [employer] provides. The information contained herein is not intended to cover all possible uses, directions, precautions, warnings, drug interactions, allergic reactions, or adverse effects. If you have questions about the drugs you are taking, check with your doctor, nurse or pharmacist. Copyright 0366-7742 [employer]. Version: 13.03. Revision Date: 09/09/2019. lactobacillus acidophilus (LAK toe ba CARMEN us bandar OFF il us) Acidophilus, Bacid (LAC), Florajen, Nidhi-Q, Lactinex, Elo-Bid, RisaQuad, Superdophilus What is the most important information I should know about lactobacillus acidophilus? Follow all directions on the product label and package. Tell each of your healthcare providers about all your medical conditions, allergies, and all medicines you use. What is lactobacillus acidophilus? Lactobacillus acidophilus is a bacteria that exists naturally in the body, primarily in the intestines and the vagina. Lactobacillus acidophilus has been used as a probiotic, or 'friendly bacteria.' Lactobacillus acidophilus has been used in alternative medicine as a likely effective aid in treating diarrhea in children with rotavirus. Lactobacillus acidophilus has been used in alternative medicine as a possibly effective aid (in children or adults) in preventing diarrhea caused by antibiotics, travel, chemotherapy, or hospitalization. Lactobacillus acidophilus is also possibly effective in treating irritable bowel syndrome, bacterial vaginal infection, colic in babies, lung infections in children, skin problems in children who are allergic to milk, and other conditions. Lactobacillus acidophilus has also been used to treat lactose intolerance, Crohn's disease, overgrowth of bacteria in the intestines, or vaginal yeast infections caused by antibiotics. However, research has shown that lactobacillus acidophilus may not be effective in treating these conditions. Other uses not proven with research have included treating indigestion, urinary tract infections, intestinal problems in premature babies, high cholesterol, lyme disease, cold sores, acne, cancer, the common cold, and other conditions. It is not certain whether lactobacillus acidophilus is effective in treating any medical condition. Medicinal use of this product has not been approved by the FDA. Lactobacillus acidophilus should not be used in place of medication prescribed for you by your doctor. Lactobacillus acidophilus is often sold as an herbal supplement. There are no regulated manufacturing standards in place for many herbal compounds and some marketed supplements have been found to be contaminated with toxic metals or other drugs. Herbal/health supplements should be purchased from a reliable source to minimize the risk of contamination. Lactobacillus acidophilus may also be used for other purposes not listed in this product guide. What should I discuss with my healthcare provider before taking lactobacillus acidophilus? Ask a doctor, pharmacist, or other healthcare provider if it is safe for you to use this product if you have: ?? short bowel syndrome; or ?? a weak immune system (caused by disease or by using certain medicine). Ask a doctor before using this product if you are or breast-feeding. Do not give any herbal/health supplement to a child without medical advice. How should I take lactobacillus acidophilus? When considering the use of herbal supplements, seek the advice of your doctor. You may also consider consulting a practitioner who is trained in the use of herbal/health supplements. If you choose to use lactobacillus acidophilus, use it as directed on the package or as directed by your doctor, pharmacist, or other healthcare provider. Do not use more of this product than is recommended on the label. Lactobacillus acidophilus is available in capsule and tablet form, or as a vaginal suppository. Powder or liquid forms may also be available. Some dairy products, especially yogurt, also contain lactobacillus acidophilus. The chewable tablet must be chewed before you swallow it. Do not use different forms of lactobacillus acidophilus at the same time without medical advice. Using different formulations together increases the risk of an overdose. Call your doctor if the condition you are treating with lactobacillus acidophilus does not improve, or if it gets worse while using this product. Store lactobacillus acidophilus in a sealed container as directed on the product label, away from moisture, heat, and light. What happens if I miss a dose? Skip the missed dose if it is almost time for your next scheduled dose. Do not use extra lactobacillus acidophilus to make up the missed dose. What happens if I overdose? Seek emergency medical attention or call the Poison Help line at . What should I avoid while taking lactobacillus acidophilus? Avoid taking lactobacillus acidophilus within 2 hours after you take any type of antibiotic medicine. What are the possible side effects of lactobacillus acidophilus? Get emergency medical help if you have signs of an allergic reaction: hives; difficulty breathing; swelling of your face, lips, tongue, or throat. Although not all side effects are known, lactobacillus acidophilus is thought to be likely safe when taken for a short period of time. Common side effects may include: ?? bloating; or ?? gas. This is not a complete list of side effects and others may occur. Call your doctor for medical advice about side effects. You may report side effects to FDA at 8-736-ZAR-7444. What other drugs will affect lactobacillus acidophilus? Do not take lactobacillus acidophilus without medical advice if you are using any medications that can weaken your immune system, such as: ?? medicine to prevent organ transplant rejection; or ?? steroid medicine (prednisone, dexamethasone, methylprednisolone, and others). This list is not complete. Other drugs may interact with lactobacillus acidophilus, including prescription and myiw-wdu-bbtwtel medicines, vitamins, and herbal products. Not all possible interactions are listed in this product guide. Where can I get more information? Consult with a licensed healthcare professional before using any herbal/health supplement. Whether you are treated by a medical doctor or a practitioner trained in the use of natural medicines/supplements, make sure all your healthcare providers know about all of your medical conditions and treatments. Remember, keep this and all other medicines out of the reach of children, never share your medicines with others, and use this medication only for the indication prescribed. Every effort has been made to ensure that the information provided by [employer]. ('[employer]') is accurate, up-to-date, and complete, but no guarantee is made to that effect. Drug information contained herein may be time sensitive. [employer] information has been compiled for use by healthcare practitioners and consumers in the [place] and therefore [employer] does not warrant that uses outside of the [place] are appropriate, unless specifically indicated otherwise. [employer] drug information does not endorse drugs, diagnose patients or recommend therapy. [employer] drug information is an informational resource designed to assist licensed healthcare practitioners in caring for their patients and/or to serve consumers viewing this service as a supplement to, and not a substitute for, the expertise, skill, knowledge and judgment of healthcare practitioners. The absence of a warning for a given drug or drug combination in no way should be construed to indicate that the drug or drug combination is safe, effective or appropriate for any given patient. [employer] does not assume any responsibility for any aspect of healthcare administered with the aid of information [employer] provides. The information contained herein is not intended to cover all possible uses, directions, precautions, warnings, drug interactions, allergic reactions, or adverse effects. If you have questions about the drugs you are taking, check with your doctor, nurse or pharmacist. Copyright 5483-4053 [employer]. Version: 3.07. Revision Date: 05/05/2017. Emergency Awareness and Preventative Care STROKE is an EMERGENCY Every Minute Counts Act FAST and Check for these signs: FACE Does the face look uneven? ARM Does one arm drift down? SPEECH Does their speech sound strange? TIME Call at any sign of stroke Stroke Risk Factors Atrial Fibrillation (irregular heartbeat) Diabetes Family history of stroke Heart Disease Heavy alcohol use High Blood Pressure High Cholesterol Physical inactivity and obesity Smoking Cigarette Smoking The facts are clear, cigarette smoking will shorten your life. Smoking can cause many illnesses along the way. As a healthcare provider, we recommend that you stop smoking. Assistance with quitting is available by contacting 8-938-HTDF-NOW. This is a free resource providing counseling, support, and referral. Or you may contact your personal physician. National Suicide Prevention Lifeline: The National Suicide Prevention Lifeline is a national network of local crisis centers that provides free and confidential emotional support to people in suicidal crisis or emotional distress 24 hours a day, 7 days a week. Don't Wait! Stop a Heart Attack Before it Starts What is a heart attack? A heart attack is damage or to a part of the heart from severely decreased or lack of blood flow to the heart. Over time, arteries can become narrow from the buildup of fat and cholesterol, which is called plaque. The plaque can rupture causing a blood clot to form. When the blood clot forms, the artery can become severely narrowed or completely blocked, causing a heart attack. Heart attack is the leading cause of in the [place]. 85% of muscle damage occurs within the first 2 hours. Delay in the recognition of heart attack symptoms increases the chances of . Know the early symptoms of a heart attack: Nausea Feeling of fullness in chest Jaw Pain Pain that travels down one or both arms Fatigue/being tired Anxiety Back Pain Chest pressure, squeezing, or discomfort Shortness of breath Sweating, or a cold sweat Feeling of impending doom There are unusual signs of a heart attack, too! Women, the elderly, and diabetics may present with atypical symptoms: Fainting/dizziness Weakness Confusion Risk Factors for a Heart Attack Some heart disease risk factors, such as age and family history, cannot be changed. Others, like smoking and lack of exercise, can be changed. Smoking High Cholesterol High Blood Pressure Family History Obesity Age Gender (Males are at higher risk) Lack of Exercise Diabetes Diet Stress Excessive Alcohol Intake If you or someone you know is experiencing the signs and symptoms of a heart attack, DON???T DELAY. Call immediately and seek help. If someone collapses, perform CPR! Do not attempt to drive if you are having symptoms of heart attack. Hands-Only CPR Why Hands-Only CPR? Hands-Only CPR has been shown to be as effective as conventional CPR for cardiac arrests that occur outside of a hospital. Survival depends on immediately receiving CPR from someone nearby. How do you perform Hands-Only CPR? There are two easy steps: Call if you see a teen or adult collapse Push hard and fast in the center of the chest at a beat of 100 beats per minute. Save a life! 4 WAYS TO GET AHEAD OF SEPSIS SEPSIS is a MEDICAL EMERGENCY. Time matters! Infections put you and your family at risk for a life-threatening condition called sepsis. Sepsis is the body's extreme response to an infection. It is life-threatening, and without timely treatment, sepsis can rapidly lead to tissue damage, organ failure, and . Sepsis happens when an infection you already have-in your skin, lungs, urinary tract or somewhere else-triggers a chain reaction throughout your body. 1 PREVENT INFECTIONS Take good care of chronic conditions. Talk to your doctor about getting the recommended vaccines. 2 PRACTICE GOOD HYGIENE Wash your hands frequently. Keep cuts or open sores clean and covered until they are healed. 3 KNOW THE SYMPTOMS Confusion or disorientation Shortness of breath High heart rate Fever, shivering, or feeling very cold Extreme pain or discomfort Clammy or sweaty skin 4 ACT FAST Get medical care IMMEDIATELY if you suspect sepsis or if you have an infection that is not getting better or is getting worse. To learn more about sepsis and how to prevent infections, visit www.cdc.gov/sepsis. Test Results Laboratory or Other Results This Visit (last charted value for your 01/19/2020 visit) Hematology 01/21/2020 6:36 AM WBC: 6.5 K/uL -- Normal range between ( 3.6 and 9.5 ) RBC: 4.86 Million/uL -- Normal range between ( 4.20 and 5.70 ) Hct: 41.5 % -- Normal range between ( 40.1 and 51.0 ) Hgb: 13.6 g/dL -- Normal range between ( 13.5 and 17.3 ) Platelet Count: 180 K/uL -- Normal range between ( 163 and 369 ) MCH: 28.0 pg -- Normal range between ( 25.6 and 32.2 ) MCHC: 32.8 Gram/dL -- Normal range between ( 32.2 and 36.5 ) MCV: 85.4 fL -- Normal range between ( 79.0 and 94.8 ) Slide Review: No Eos %: 4.0 % -- Normal range between ( 0.0 and 7.0 ) [place] #: 0.59 K/uL -- Normal range between ( 0.16 and 1.00 ) Eos #: 0.26 x10(3)/uL -- Normal range between ( 0.00 and 0.80 ) [place] %: 9.1 % -- Normal range between ( 3.0 and 9.0 ) Baso %: 1.1 % -- Normal range between ( 0.0 and 1.5 ) Baso #: 0.07 x10(3)/uL -- Normal range between ( 0.00 and 0.20 ) RDW: 13.2 % -- Normal range between ( 11.7 and 14.9 ) Neut %: 61.8 % -- Normal range between ( 34.0 and 71.0 ) Neut #: 4.02 K/uL -- Normal range between ( 1.56 and 6.13 ) Lymph %: 23.7 % -- Normal range between ( 19.3 and 53.1 ) Lymph #: 1.54 x10(3)/uL -- Normal range between ( 1.00 and 3.90 ) MPV: 10.3 fL -- Normal range between ( 9.4 and 12.4 ) IG#: 0.02 x10(3)/uL -- Normal range between ( 0.00 and 0.05 ) IG%: 0.30 % -- Normal range between ( 0.00 and 0.60 ) General Chemistry 01/21/2020 11:16 AM Glucose POC2: 183 mg/dL -- Normal range between ( 70 and 110 ) Device Comment 1: Device Comment 1 01/21/2020 6:36 AM Creatinine Level: 1.00 mg/dL -- Normal range between ( 0.70 and 1.30 ) Sodium Level: 136 mmol/L -- Normal range between ( 136 and 146 ) Potassium Level: 4.0 mmol/L -- Normal range between ( 3.5 and 5.1 ) Chloride Level: 105 mmol/L -- Normal range between ( 102 and 112 ) Carbon Dioxide Level: 30 mmol/L -- Normal range between ( 21 and 32 ) Anion Gap: 5 -- Normal range between ( 9 and 20 ) Bun/Creatinine: 17.0 -- Normal range between ( 8.0 and 20.0 ) Calcium Level: 9.0 mg/dL -- Normal range between ( 8.4 and 10.1 ) eGFR : >60 mL/min/1.73m2 eGFR NonAfrican: >60 mL/min/1.73m2 Glucose Level: 119 mg/dL -- Normal range between ( 74 and 106 ) Blood Urea Nitrogen: 17 mg/dL -- Normal range between ( 7 and 22 ) 01/19/2020 7:07 AM Lactic Acid Level: 0.7 mmol/L -- Normal range between ( 0.4 and 2.0 ) 01/18/2020 6:33 PM Bilirubin Total: 0.6 mg/dL -- Normal range between ( 0.2 and 1.2 ) Hgb A1C: 10.0 % A/G Ratio: 1.0 -- Normal range between ( 1.1 and 2.5 ) ALT: 32 Units/Liter -- Normal range between ( 16 and 61 ) AST: 18 Units/Liter -- Normal range between ( 5 and 37 ) Globulin: 3.1 Gram/dL -- Normal range between ( 1.5 and 4.5 ) Alk Phos: 90 Units/Liter -- Normal range between ( 27 and 136 ) eAVG Glucose: 240 mg/dL Magnesium Level: 1.7 mg/dL -- Normal range between ( 1.5 and 2.4 ) Protein Total: 6.3 Gram/dL -- Normal range between ( 6.4 and 8.2 ) Albumin Level: 3.2 Gram/dL -- Normal range between ( 3.4 and 5.0 ) Cardiac Specific Markers 01/20/2020 4:15 PM CK: 73 Units/Liter -- Normal range between ( 39 and 308 ) 01/18/2020 6:33 PM Troponin I Ultra: <0.015 ng/mL -- Normal range between ( 0.015 and 0.045 ) ProBNP: 202 pg/mL -- Normal range between ( 0 and 125 ) Coagulation 01/18/2020 6:33 PM INR: 1.0 -- Normal range between ( 0.9 and 1.1 ) PT: 10.2 Second(s) -- Normal range between ( 9.6 and 12.0 ) Lipid Studies 01/18/2020 6:33 PM Cholesterol Tot: 256 mg/dL -- Normal range between ( 0 and 199 ) Cholesterol HDL: 50.0 mg/dL Cholesterol LDL Calculation: 165.0 mg/dL -- Normal range between ( 0.0 and 99.0 ) Cholesterol VLDL Calculation: 41.0 mg/dL -- Normal range between ( 5.0 and 40.0 ) Cholesterol/HDL Ratio: 5.1 -- Normal range between ( 0.0 and 3.2 ) Triglyceride: 205 mg/dL -- Normal range between ( 0 and 249 ) LDL/HDL Ratio: 3.3 -- Normal range between ( 0.0 and 3.6 ) Fasting?: Yes Endocrinology 01/18/2020 6:32 PM Procalcitonin: <0.25 ng/mL -- Normal range between ( 0.00 and 2.00 ) Diagnostic Radiology 01/19/2020 8:50 AM CR Foot Comp Min 3 Vws LT: CR Foot Comp Min 3 Vws LT 01/19/2020 8:45 AM CR Chest 2 Vws: CR Chest 2 Vws Magnetic Resonance Imaging 01/20/2020 9:26 AM MRI Foot LT WO: MRI Foot LT WO Vascular Ultrasound 01/19/2020 3:12 PM VL ELEANOR Ankle Brachial Index BILAT: VL ELEANOR Ankle Brachial Index BILAT 01/19/2020 2:54 PM VL ART LE Duplex BILAT: VL ART LE Duplex BILAT Patient Name:JONATHAN DELGADO I have received and understand this information and was given the opportunity to ask questions. Patient/Supervisor [employer] Name: Patient/Supervisor [employer] Signature: Relationship to Patient: Clinician/Hospital Supervisor [employer] Signature: Date: documented in this encounter Plan of Treatment Not on file documented as of this encounter Visit Diagnoses Not on filedocumented in this encounter
--- OUTSIDE RECORDS SUMMARY | 2025-05-03 09:52 | XMS_ITS | Encounter Summary ---
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 Name Role Phone Unavailable Primary Care Provider Unavailabl e Encounter Details Date Type Department Care Team (Late st Contact Info) Description 01/19/2020 Transcribed Document [facility] [place] [address] [place] [address] ProviderLora MD [address] [place], [place] [id number] Social History Tobacco Use Types Packs/Day Years Used Date Smoking Tobacco: Never Assessed Sex and Gender Information Value Date Recorded Sex Assigned at Not on file Legal Sex Male 5:25 PM CDT Gender Identity Not on file Sexual Orientation Not on file documented as of this encounter Miscellaneous Notes * Cerner Conversion Note - Historical ProviderMD - 01/19/2020 9:00 AM 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 Consult Phone Call Documentation Entered On: 01/19/2020 11:27 EST Performed On: 01/19/2020 9:00 EST by Jessica Johnson [facility] Coord Phone Call for Consults Consult Phone Call/Page Attempt : First call Consult Reason : PVD/ CAD Physician Requesting Consult : CONRAD GARDNER [facility] Physician Requested for Consult : RIGO KAISER MD-CAR Provider Service Notified Name : Cardiology Physician Covering for Consult : MADHU MARTIN PAC-CAT Date and Time Call Returned : 01/19/2020 11:27 EST Jessica Johnson [facility] Coord - 01/19/2020 11:26 EST Electronically signed by Stefanie [facility] Conversion Venture Capitalist Cerner at 03/17/2023 9:29 AM CDT documented in this encounter Plan of Treatment Not on file documented as of this encounter Visit Diagnoses Not on filedocumented in this encounter
--- OUTSIDE RECORDS SUMMARY | 2025-05-03 09:52 | XMS_ITS | Encounter Summary ---
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 Name Role Phone Unavailable Primary Care Provider Unavailabl e Encounter Details Date Type Department Care Team (Late st Contact Info) Description 01/18/2020 Transcribed Document [facility] [place] [facility] [place] [address] ProviderLora MD [address], [place] [address] Social History Tobacco Use Types Packs/Day Years Used Date Smoking Tobacco: Never Assessed Sex and Gender Information Value Date Recorded Sex Assigned at Not on file Legal Sex Male 5:25 PM CDT Gender Identity Not on file Sexual Orientation Not on file documented as of this encounter Miscellaneous Notes * Cerner Conversion Note - Historical ProviderMD - 01/18/2020 5:01 PM 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 Admission History, Adult Entered On: 01/18/2020 17:09 EST Performed On: 01/18/2020 17:01 EST by Martha Daigle RN Advance Directive Patient has Advance Directive *Q : No, patient refuses Advance Directive information Martha Daigle RN - 01/18/2020 17:01 EST Anesthesia/Transfusion History Family History of Anesthesia Reaction : No prior transfusion(s) Blood Transfusion Acceptable to Patient : Yes Transfusion History : Prior anesthesia without reaction Family History of Anesthesia Reaction : None Martha Daigle RN - 01/18/2020 17:01 EST Functional Assessment Living Situation : Home Patient Lives With : Spouse Persons Assisting Patient at Home : Spouse Current Daily Living Assistance : None Sensory Deficits : None Mobility Assistance Prior to Admission : Independent YEN Hx Falls Immediate/Within 3 Months : No Current Home Treatments : Blood glucose monitoring, CPAP, Other: currently no using cpap-refused treame here Martha Daigle RN - 01/18/2020 17:01 EST General Info Arrived From : Direct admit Mode of Arrival on Unit : Ambulatory Legal Guardian : Spouse Want Family/Rep/Phys Notified of Admit : No Emergency Contact #1 : fercho delgado Emergency Contact #1 Emergency Contact #1 Relationship : Emergency Contact #2 : , Emergency Contact #2 Phone Number : , Emergency Contact #2 Relationship : , Primary Language : Belgian Communication Barrier : None Martha Daigle RN - 01/18/2020 17:01 EST Fall Risk Scales ABCs Fall Injury Risk Identification : None YEN Hx Falls Immediate/Within 3 Months : No Yen Secondary Diagnosis : No YEN Use of Ambulatory Aid : None YEN IV Therapy or IV Access : Yes Yen Gait/Transferring : Normal, bedrest, immobile Yen Mental Status : Oriented to own ability Yen Fall Risk Score : 20 YEN Fall Scale Risk Level : 0-24 Low Risk [place] Fall Interventions : Adequate lighting, Assistive devices within reach, Bed in low position, Call device within reach, Fall prevention handout/education per facility policy, Frequent orientation to call device, Frequent orientation to surroundings, Hourly comfort/safety rounds, Non-slip footwear, Personal items within reach, Reinforced to call for assistance before getting out of bed, Room free of clutter/spills, Upper side-rails up, Wheels locked, Wires/Cords secured Martha Daigle RN - 01/18/2020 17:01 EST Health Histories Smoking Status : Never (less than 100 in lifetime; none in last 30 days) Smokeless Tobacco Status : Never Martha Daigle RN - 01/18/2020 17:01 EST Social History (As Of: 01/18/2020 17:09:33 EST) Tobacco: Smoking Status Never smoker. Last Used: pt quit smoking in 2000. (Last Updated: 11/30/2015 12:10:38 EST by BLANCA LANDAVERDE, RN) Never (less than 100 in lifetime) Smoking Status. Never Smokeless Tobacco Status. (Last Updated: 01/18/2020 17:05:20 EST by Martha Daigle RN) Alcohol: Alcohol Use History No. (Last Updated: 05/31/2015 17:07:49 EDT by Silvina Munoz, Registered Nurse) Alcohol Use History No. Use in Last 12 Months: No. (Last Updated: 01/18/2020 17:05:12 EST by Martha Daigle RN) Substance Abuse: Drug Use Hx: No. Use in Last 12 Months: No. (Last Updated: 05/31/2015 17:08:01 EDT by Silvina Munoz, Registered Nurse) Drug Use Hx: No. Use in Last 12 Months: No. (Last Updated: 01/18/2020 17:05:33 EST by Martha Daigle RN) Nutrition/Health: Diabetic (Last Updated: 05/31/2015 17:07:57 EDT by Silvina Munoz, Registered Nurse) Height and Weight, Clinical Dosing Height Source : Stated Height Entry Format : [place] Height, Feet : 6 ft(Converted to: 183 cm, 72 Inch) Height, Inches : 2 Inch(Converted to: 0 ft 2 Inch, 5.08 cm) Clinical Height : 187.96 cm Weight Source : Standing scale Weight Entry Format : [place] Clinical Dosing Weight : 107.27 kg Weight, Pounds : 236 lb Body Surface Area (BSA) : 2.33 m2 Body Mass Index : 30.4 kg/m2 (HI) [place] Body Weight : 81 kg Martha Daigle RN - 01/18/2020 17:01 EST Infectious Disease History Physical contact outside [place] in the last 30 days : No Infectious Disease History : Chicken pox/Shingles, Influenza Tuberculosis Symptoms : None Martha Daigle RN - 01/18/2020 17:01 EST Influenza Vaccine Asmt, Adult Previous Vaccines from Immunization Schedule : No qualifying data available. Influenza Immunization, Current Season : Yes Martha Daigle RN - 01/18/2020 17:01 EST Pneumococcal Vaccine Previous Vaccines from Immunization Schedule : No qualifying data available. Pneumonia Immunization Received : No Pneumococcal Risk Assessment < Age 65 : None Martha Daigle RN - 01/18/2020 17:01 EST Nutrition History Feeding Ability : Independent Adaptive Feeding Equipment : Regular Eating Poorly Due to Decreased Appetite : No Unplanned Weight Loss in Past 3-6 Months : No Malnutrition Screening Tool Total(mal) : 0 Malnutrition Screening Tool Risk Level : Patient not at risk Martha Daigle RN - 01/18/2020 17:01 EST [place] Suicide Severity Rating Scale (C-SSRS) CSSRS Past Month Wish to be : No CSSRS Past Month Suicidal Thoughts : No CSSRS Lifetime Suicide Behavior : No Suicide Severity Rating Score : 0 Suicide Severity Rating : No Additional Care Required at this time Martha Daigle RN - 01/18/2020 17:01 EST Psychosocial History Do You Have a History of the Following? : Depression Currently in Unsafe Situation : No Martha Daigle RN - 01/18/2020 17:01 EST Sleep Apnea Risk Assmt BiPAP/CPAP Ordered for Home Use : Yes Hx of Obstructive Sleep Apnea Diagnosis : Yes BiPAP/CPAP Used at Home : No Reason BiPAP/CPAP Not Used at Home : currently doesnt use it Age over 50 Years Old : No Gender Male : Yes Martha Daigle RN - 01/18/2020 17:01 EST Valuables and Belongings Valuables and Belongings : Clothing, Jewelry, Personal devices, Personal items, No comfort items Clothing : Common streetwear Clothing Disposition : Bedside Personal Device Disposition : Bedside Jewelry : Ring-plain band Jewelry Disposition : Bedside Personal Devices : Glasses Personal Items : Cell phone Personal Items Disposition : Bedside Martha Daigle RN - 01/18/2020 17:01 EST documented in this encounter Plan of Treatment Not on file documented as of this encounter Visit Diagnoses Not on filedocumented in this encounter
--- OUTSIDE RECORDS SUMMARY | 2025-05-03 09:52 | XMS_ITS | Encounter Summary ---
Author Organization [employer] Address [address] [place] [id number] Care Team Providers Care Pigment Processor Name Role Phone Unavailable Primary Care Provider Unavailabl e Encounter Details Date Type Department Care Team (Late st Contact Info) Description 01/19/2020 Transcribed Document [facility] [place] Family Medicine [facility] [place] [address] ProviderLora MD [address], [place] [id number] Social History Tobacco Use Types Packs/Day Years Used Date Smoking Tobacco: Never Assessed Sex and Gender Information Value Date Recorded Sex Assigned at Not on file Legal Sex Male 5:25 PM CDT Gender Identity Not on file Sexual Orientation Not on file documented as of this encounter Miscellaneous Notes * Cerner Conversion Note - Historical ProviderMD - 01/19/2020 2:05 PM SPINNER BOX Patient: JONATHAN DELGADO Age: 49 years Sex: Male : 1970 Associated Diagnoses: None Author: MARA SKAGGS MD-INF ID Consultation/Initial Hospital Visit Referring MD: Dr Bravo Evaluating MD: Dr Mark Skaggs Date of admission: 01/18/20 Date of consultation: 01/19/20 Reason for consultation: foot cellulitis Chief Complaint: foot pain Current antimicrobial therapy: Merrem IV//vancomycin HPI: Mr. Jonathan Delgado is a 49-year-old male being evaluated for left foot wound. He has a past medical history significant for diabetes mellitus, peripheral neuropathy, hyperlipidemia and hypertension. He originally presented to [facility] with complaints of left foot pain. States that this pain began about Monday is when he first noticed. He has his took his foot and discovered that there was a wound on the sole of his left foot on the ball of the foot. He does not recall any trauma to the foot. Family stated that due to a disagreement with the bessemer regulator that was on duty they requested transfer from that facility to here. Labs at outside hospital showed patient was without leukocytosis and was generally unremarkable. Cultures were obtained and patient was given 2 g IV Rocephin. He did receive a foot x-ray while at [facility] but the report did not accopany the patient here. Since arrival here patient has been afebrile and hemodynamically stable. Labs remained unremarkable. Repeat blood cultures and anaerobic and aerobic wound cultures have been obtained as well as urine culture. Repeat foot x-ray showed no acute fracture. MRI of the foot has been ordered as well as arterial duplexes. Patient has listed allergy to penicillin but is unaware of the reaction as this is a childhood allergy. Doing vancomycin and Merrem I.V. 90s been consulted for further evaluation and treatment as well as antimicrobial therapy management. Allergies:Allergies (1) Active Reaction penicillin None Documented Medications:Medications by Classification Antimicrobials meropenem + Sodium Chloride 0.9% intravenous solution 50 mL - 500 mg, IV Piggyback, Q6H, infuse over 3 Hour(s) Anticoagulant heparin - 5,000 Units, SubCutaneous, Inj, Q8H, Routine Cardiovascular aspirin - 81 mg, Oral, Tab, Daily, Routine cloNIDine - 0.1 mg, Oral, Tab, Q4H, PRN for Hypertension, Routine atorvastatin - 40 mg, Oral, Tab, At Bedtime, Routine Respiratory albuterol-ipratropium (DuoNeb 0.5 mg-2.5 mg/3 mL inhalation - 3 mL, Nebulized Inhalation, Inh, Q2H, PRN for Shortness of Breath, Routine albuterol-ipratropium (DuoNeb 0.5 mg-2.5 mg/3 mL inhalation - 3 mL, Nebulized Inhalation, Inh, Q2H, PRN for Shortness of Breath, Routine promethazine (Phenergan) - 6.25 mg, IntraVENous, Inj, Q6H, PRN for Nausea, Routine GI ondansetron (Zofran) - 4 mg, IV Push, Inj, Q4H, PRN for Nausea, Routine famotidine (Pepcid) - 20 mg, Oral, Tab, Daily, Routine Endocrine insulin glargine (Lantus) - 18 Units, SubCutaneous, Inj, Daily, Routine insulin lispro (insulin lispro sliding scale) - Scale D:, SubCutaneous, Inj, AC and at Bedtime, Routine Psych sertraline - 200 mg, Oral, Tab, Daily, Routine traZODone - 50 mg, Oral, Tab, At Bedtime, PRN for Insomnia, Routine Pain Meds oxyCODONE - 5 mg, Oral, Tab, Q4H, PRN for Pain (Severe 7-10), Routine aspirin - 81 mg, Oral, Tab, Daily, Routine *Duplicate* acetaminophen (Tylenol) - 650 mg, Oral, Tab, Q4H, PRN for Other (See Comment), Routine Sedatives LORazepam (Ativan) - 0.5 mg, IV Push, Inj, Q4H, PRN for Agitation, Routine Undefined Medications hydrALAZINE - 10 mg, IV Push, Inj, Q6H, PRN for Hypertension, Routine Past Medical History: Active Problems (11) Angina Coronary artery disease Diabetes mellitus type II GERD - Gastro-esophageal reflux disease History of obstructive sleep apnea Hyperlipidemia Hypertension Impaired vision in both eyes Migraine Prostate infection Stented coronary artery Past Surgical History: Cholecystectomy Hernia repair Placement Zaman cardiac conduit Elbow procedure The procedure Family History: Potential Social History: Former smoker Denies EtOH or illicit drugs Review of Systems: CONSTITUTION: Positive for low-grade fevers and chills HEENT: Denies headache, syncope, eye pain, blurry vision, ear pain, tinnitus, photophobia, sinus tenderness, rhinorrhea, dysphagia, oral sores NECK: Denies pain, stiffness LYMPH: Denies lymph nodes RESP: Denies shortness of breath, cough, hemoptysis CV: Denies chest pain, palpitations, murmurs GI: Denies abdominal pain, nausea, vomiting, diarrhea, constipation, hematemesis, hematochezia, melena : Denies flank pain, dysuria, frequency of urination, urgency of urination or burning with urination MS: Also for left foot pain SKIN: Positive for left foot wound NEURO: Denies strokes, seizures. He has peripheral neuropathy with lower extremity numbness PSYCH: Denies anxiety and depression or suicidal ideation ENDOCRINE: He has type 2 diabetes mellitus with peripheral neuropathy 12 systems were reviewed and negative except for above. Physical Examination: Vitals Signs (last 24 hrs) Last Charted Minimum Maximum Mon HR 81 (FEB 23 10:55) 71 (JAN 18 18:39) 87 (JAN 18:30) Resp Rate 17 (JAN 19 10:55) 16 (JAN 18 18:39) 18 (JAN 18:30) SBP 115 (JAN 19 10:55) 105 (JAN 19 03:30) 128 (JAN 18 18:39) DBP 73 (JAN 19 10:55) 63 (JAN 19:22) 80 (JAN 18:39) MAP 86 (JAN 19 10:55) 84 (JAN 19 03:30) 93 (JAN 18 18:39) SpO2 L 93 (JAN 19 10:55) L 93 (JAN 19 10:55) 96 (JAN 18:39) Exam: Gen: Alert, in no acute distress, appears stated age HEENT: NC/AT, PERRLA, EOMI, sclera nonicteric, no conjunctival injection, sinuses nontender, Oropharynx without thrush, lesions, or peridontal disease NECK: Supple, no masses LYMPH: No lymphadenopathy in cervical, supraclavicular, axillary, or inguinal lymph nodes RESP: CTA bilaterally without rhonchi, rales, or wheezes. Nonlabored breathing CV: RRR, no murmurs, gallops, or rubs. No edema GI: BS normoactive in all 4 quadrants, soft, nontender, nondistended, no HSM, no guarding or rebound tenderness : No [place] in place MS: FROM in all extremities, no pain with motion, no swelling or edema noted. no spinal tenderness SKIN: 2.5 x 2.5 circular wound to the ball the left foot. The wound has a beefy red wound bed was some purulence noted. Cultures have been collected of this already. NEURO: A and O x 4, CN II-XII grossly intact. He has lower extremity numbness bilaterally PSYCH: Normal insight and judgment, cooperative with PE Labs:Labs (Last four charted values) WBC 8.0 (JAN 19) 8.4 (JAN 18) HB L 13.0 (JAN 19) 13.5 (JAN 18) HCT 40.1 (JAN 19) 41.8 (JAN 18) Plt L 162 (JAN 19) L 157 (JAN 18) Na 137 (JAN 19) 137 (JAN 18) K 4.3 (JAN 19) 3.9 (JAN 18) Cl 106 (JAN 19) 105 (JAN 18) CO2 29 (JAN 19) 28 (JAN 18) BUN 22 (JAN 19) H 23 (JAN 18) Cr 1.10 (JAN 19) 1.10 (JAN 18) Glu R H 165 (JAN 19) H 209 (JAN 18) Ca 8.6 (JAN 19) 8.6 (JAN 18) Lactic 0.7 (JAN 19) 1.1 (JAN 18) PT 10.2 (JAN 18) INR 1.0 (JAN 18) AST 18 (JAN 18) ALT 32 (JAN 18) ALK P 90 (JAN 18) T Bili 0.6 (JAN 18) PTN L 6.3 (JAN 18) ALB L 3.2 (JAN 18) Troponin <0.015 (JAN 18) Micro: 01/19 wound cultures in process/pending 01/18 blood cultures in process/pending 01/18 urine cultures in process/pending Rad: Radiology Results (Last 48 hours) [id number] -- 01/18/2020 16:50 CR Chest 2 Vws (01/19/2020 08:45) Result: [...] personally viewed, interpreted and dictated the examination. Ihave read and agree with the above final [...] personally viewed, interpreted and dictated the examination. Ihave read and agree with the above final transcribed report. IMPRESSION: 1. Left foot wound/cellulitis. This is a neuropathic diabetic ulcer ulcer. He will need to offload this ulcer and he will need to take better care of his feet in the future in order to reduce his risk of recurrent diabetic foot ulcers. I cannot probe this down to bone. An MRI is pending to evaluate for osteomyelitis. 2. Coronary artery disease status post PCI 3. Diabetes mellitus- Type II 4. Hypertension 5. Peripheral neuropathy RECOMMENDATIONS/PLANS: Thank you for the consultation for JONATHAN DELGADO Recommend the followin. Discontinue IV Merrem 2. Start daptomycin 8 mg/kg IV every 24 hours 3. Start Rocephin 2 g IV every 24 hours 4. Continue to follow cultures and sensitivity reports an just antibiotics accordingly 5. Continue to follow physical exam and radiological reports an just therapies as indicated 6. Agree with vascular and podiatry consultations Dr Mara Skaggs has obtained the history, performed the physical exam and formulated the above plan care Romario Scott APRN [facility] I discussed his situation with Dr. Sevilla documented in this encounter Plan of Treatment Not on file documented as of this encounter Visit Diagnoses Not on filedocumented in this encounter
--- OUTSIDE RECORDS SUMMARY | 2025-05-03 09:52 | XMS_ITS | Encounter Summary ---
Author Organization [employer] Address [address] [place] [address] Care Team Providers Care Game Master Name Role Phone Unavailable Primary Care Provider Unavailabl e Encounter Details Date Type Department Care Team (Late st Contact Info) Description 01/19/2020 Transcribed Document [facility] [place] [address] ProviderLora MD [address], [place] [id number] Social History Tobacco Use Types Packs/Day Years Used Date Smoking Tobacco: Never Assessed Sex and Gender Information Value Date Recorded Sex Assigned at Not on file Legal Sex Male 5:25 PM CDT Gender Identity Not on file Sexual Orientation Not on file documented as of this encounter Miscellaneous Notes * Cerner Conversion Note - Historical ProviderMD - 01/19/2020 12:32 PM BIODIESEL DIVISION MANAGER Patient: JONATHAN DELGADO Age: 49 Years Sex: Male : 1970 Chief Complaint Left foot cellulitis Reason for Consultation Left foot cellulitis History of Present Illness This 49 year old male patient is seen at bedside for his left foot. He has been feeling ill the past week and went to get checked out at another facility. he was subsequently transferred here for further care. He admits to being a diabetic. he states that he has had a small spot on his left foot for about a week or so and he noticed it more when he started to not feel good. He states that he did have chills and some nausea, but that he is feeling better now. He states that he does have some pain, calling it aching and rating it 4/10. He denies any trauma to the foot. No other complaints. Review of Systems AO x 3 and in no acute distress. Denies nausea, vomiting, fever and chills. Vital Signs HR: 81(Monitored) RR: 17 BP: 115/73 SpO2: 93% HT: 187.96 cm WT: 107.27 kg BMI: 30.4 Oxygen Settings (Last) Oxygen Therapy Mode: Room air (01/19/20 08:10:00) Physical Exam Vascular: DP and PT pulses palpable +1 out of 4 to bilateral feet. Capillary refill time is less than 7 seconds to digits of bilateral feet. Skin temperature is warm to warm from proximal to distal to bilateral lower extremity. Neurological: Protective sensation is absent to the level of the metatarsal heads to bilateral lower extremity. Proprioception is noted to be present at the level of the first MPJ of bilateral feet. Dermatological: Hemorrhagic bullae noted other plantar aspect of the left 1st MPJ. There is noted to be slight fluctuance on palpation. No probing or undermining is noted. Mild diffuse edema noted to bilateral lower extremities. There is localized erythema noted to the left foot. There is serosanguineous drainage noted. No malodor noted. Musculoskeletal: No pain with calf compression is noted to bilateral lower extremity. Negative Homans sign is noted to bilateral lower extremity. Ankle joint range of motion is noted to be reduced in dorsiflexion with the knee extended to bilateral lower extremities. All lower extremity muscle groups rate +5/5 in strength to bilateral lower extremities Assessment/Plan 1.) Superficial abscess to and through the subcutaneous tissue of the left foot 2.) DM 3.) CAD status post stenting Plan: 1.) patient was examined and evaluated. 2.) Discussed and reviewed treatment plan in detail. 3.) I Discussed the appearance of his foot. I discussed his radiographs. I discussed possible treatment options including conservative and surgical treatment in detail. I explained the possible risks, benefit and complications in detail. He and his understand. 4.) I discussed possible local incision and drainage of the superficial abscess. He is agreeable with this. Attention was directed to the left plantar forefoot. Using sterile technique, a small stab incision was made to the plantar left foot. There was noted to be seropurulent drainage immediately. Expressed 3 cc of drainage. This was cultured and sent for aerobic and anaerobic cultures. The site was cleaned and I applied aquacel silver, 4x4 gauze and kerlix to the left foot. he tolerated this well. Post debridement, there was noted to be an ulceration to and through the subcutaneous tissue measuring 1 x 1 x 0.1 cm. 5.) I discussed his diabetes and systemic health in detail with the patient. I discussed the need for further assessment of his blood flow. He is agreeable with this. I will order arterial ultrasound studies for evaluation. 6.) I discussed the need for possible surgery if his foot didn't improve. He understands. I discussed that the foot needed to be monitored closely. Will continue to follow - thank you for the consultation. Orders: Culture Wound and Stain VL ELEANOR Ankle Brachial Index BILAT VL ART LE Duplex BILAT VTE Prophylaxis - Medical Heparin 5,000 Units, SubCutaneous, Inj, Q8H, Routine, Start 01/18/20 17:50:00 EST (CONRAD GARDNER) Provider Information Primary Care Physician - ADRIAN DELACRUZ DO-[facility] Attending Physician - PARESH CARRASCO MD-INT Admitting Physician - PARESH CARRASCO MD-INT Consulting Physician - BAYRON BARAKAT MD-INF (Infectious Disease)- foot cellulitis Consulting Physician - TANISHA AMAYA DPM-POD (Surgery)- foot cellulitis Consulting Physician - RIGO KAISER MD-CAR (Cardiology)- PVD/CAD Consulting Physician - MARA FLORES MD-INF Consulting Physician - CHERISE HOWELL DPM-TOMMY Referring Physician - JARETT RAMSAY (REF) MD DEX Problem List/Past Medical History Ongoing Angina Coronary artery disease Diabetes mellitus type II GERD - Gastro-esophageal reflux disease History of obstructive sleep apnea Hyperlipidemia Hypertension Impaired vision in both eyes Migraine Prostate infection Stented coronary artery Historical No qualifying data Procedure/Surgical History bilateral hernia repair, cardiac catheterization with coronary stents, lucinda, left elbow surgery, right knee surgery, Stent. Medications Inpatient aspirin, 81 mg= 1 Tab, Oral, Daily Ativan, 0.5 mg= 0.25 mL, IV Push, Q4H, PRN atorvastatin, 40 mg= 1 Tab, Oral, At Bedtime cloNIDine, 0.1 mg= 1 Tab, Oral, Q4H, PRN DuoNeb 0.5 mg-2.5 mg/3 mL inhalation solution, 3 mL, Nebulized Inhalation , Q2H, PRN DuoNeb 0.5 mg-2.5 mg/3 mL inhalation solution, 3 mL, Nebulized Inhalation , Q2H, PRN heparin, 5000 Units= 1 mL, SubCutaneous, Q8H hydrALAZINE, 10 mg= 0.5 mL, IV Push, Q6H, PRN insulin lispro sliding scale, Scale D:, SubCutaneous, AC and at Bedtime Lantus, 18 Units= 0.18 mL, SubCutaneous, Daily Merrem + Sodium Chloride 0.9% intravenous solution 50 mL Normal Saline 1,000 mL, 1000 mL, IntraVENous oxyCODONE, 5 mg= 1 Tab, Oral, Q4H, PRN Pepcid, 20 mg= 1 Tab, Oral, Daily Phenergan, 6.25 mg= 0.25 mL, IntraVENous, Q6H, PRN sertraline, 200 mg= 2 Tab, Oral, Daily traZODone, 50 mg= 1 Tab, Oral, At Bedtime, PRN Tylenol, 650 mg= 2 Tab, Oral, Q4H, PRN Zofran, 4 mg= 2 mL, IV Push, Q4H, PRN Home aspirin, 81 mg, Oral, Daily atorvastatin, 40 mg, Oral, At Bedtime insulin lispro, 15 Units, SubCutaneous, TID With Meals omeprazole, 20 mg, Oral, Daily sertraline 100 mg oral tablet, 200 mg= 2 Tab, Oral, Daily traZODone, 50 mg, Oral, At Bedtime, PRN Allergies penicillin Social History Alcohol Alcohol Use History No. Use in Last 12 Months: No. Alcohol Use History No. Nutrition/Health Diabetic Substance Abuse Drug Use Hx: No. Use in Last 12 Months: No. Drug Use Hx: No. Use in Last 12 Months: No. Tobacco Never (less than 100 in lifetime) Smoking Status. Never Smokeless Tobacco Status. Smoking Status Never smoker. Last Used: pt quit smoking in 2000. Diagnostic Results [facility] REPORT LEFT FOOT SERIES HISTORY: Left foot pain. Plantar swelling FINDINGS: Three views show no evidence of an acute, displaced fracture or dislocation of the visualized bony architecture. The joint spaces appear normal. IMPRESSION: No acute fracture. TWO VIEW CHEST HISTORY: Difficulty breathing, cough. COMPARISON: November 2015. FINDINGS: The cardiac silhouette is normal in size. The mediastinum is unremarkable. The lungs are clear. There is no pneumothorax. The osseous structures are unremarkable. IMPRESSION: No acute cardiopulmonary process. Images reviewed, interpreted, and dictated by Dr. Dewayne Whaley. Transcribed by Jaycee Aguirre PA-C. I have personally viewed, interpreted and dictated the examination. I have read and agree with the above final transcribed report. Signature Line Final Dictated by: JAYCEE AGUIRRE PA-C Dictated DT/TM: 01/19/2020 9:33 am Interpreted and electronically signed by: DEWAYNE WHALEY MD-RAD Signed DT/TM: 01/19/2020 9:37 am Transcribed by: Lab Results Test Name Test Result Date/Time Sodium Level 137 mmol/L 01/19/2020 07:07 EST Sodium Level 137 mmol/L 01/18/2020 18:33 EST Potassium Level 4.3 mmol/L 01/19/2020 07:07 EST Potassium Level 3.9 mmol/L 01/18/2020 18:33 EST Chloride Level 106 mmol/L 01/19/2020 07:07 EST Chloride Level 105 mmol/L 01/18/2020 18:33 EST Carbon Dioxide Level 29 mmol/L 01/19/2020 07:07 EST Carbon Dioxide Level 28 mmol/L 01/18/2020 18:33 EST Anion Gap 6 (Low) 01/19/2020 07:07 EST Anion Gap 8 (Low) 01/18/2020 18:33 EST Glucose Level 165 mg/dL (High) 01/19/2020 07:07 EST Glucose Level 209 mg/dL (High) 01/18/2020 18:33 EST Blood Urea Nitrogen 22 mg/dL 01/19/2020 07:07 EST Blood Urea Nitrogen 23 mg/dL (High) 01/18/2020 18:33 EST Creatinine Level 1.10 mg/dL 01/19/2020 07:07 EST Creatinine Level 1.10 mg/dL 01/18/2020 18:33 EST eGFR >60 mL/min/1.73m2 01/19/2020 07:07 EST eGFR >60 mL/min/1.73m2 01/18/2020 18:33 EST eGFR NonAfrican >60 mL/min/1.73m2 01/19/2020 07:07 EST eGFR NonAfrican >60 mL/min/1.73m2 01/18/2020 18:33 EST Bun/Creatinine 20.0 01/19/2020 07:07 EST Bun/Creatinine 20.9 (High) 01/18/2020 18:33 EST Calcium Level 8.6 mg/dL 01/19/2020 07:07 EST Calcium Level 8.6 mg/dL 01/18/2020 18:33 EST Protein Total 6.3 Gram/dL (Low) 01/18/2020 18:33 EST Albumin Level 3.2 Gram/dL (Low) 01/18/2020 18:33 EST Globulin 3.1 Gram/dL 01/18/2020 18:33 EST A/G Ratio 1.0 (Low) 01/18/2020 18:33 EST Bilirubin Total 0.6 mg/dL 01/18/2020 18:33 EST Alk Phos 90 Units/Liter 01/18/2020 18:33 EST AST 18 Units/Liter 01/18/2020 18:33 EST ALT 32 Units/Liter 01/18/2020 18:33 EST Magnesium Level 1.7 mg/dL 01/18/2020 18:33 EST Device Comment 1 Notified Nurse RBV 01/19/2020 11:27 EST Device Comment 1 Notified Nurse RBV 01/19/2020 06:37 EST Device Comment 1 Notified Nurse RBV 01/18/2020 20:52 EST Glucose POC2 194 mg/dL (High) 01/19/2020 11:27 EST Glucose POC2 173 mg/dL (High) 01/19/2020 06:37 EST Glucose POC2 206 mg/dL (High) 01/18/2020 20:52 EST Hgb A1C 10.0 % 01/18/2020 18:33 EST Lactic Acid Level 0.7 mmol/L 01/19/2020 07:07 EST Lactic Acid Level 1.1 mmol/L 01/18/2020 18:32 EST eAVG Glucose 240 mg/dL 01/18/2020 18:33 EST Troponin I Ultra <0.015 ng/mL 01/18/2020 18:33 EST ProBNP 202 pg/mL (High) 01/18/2020 18:33 EST WBC 8.0 K/uL 01/19/2020 07:07 EST WBC 8.4 K/uL 01/18/2020 18:33 EST RBC 4.71 Million/uL 01/19/2020 07:07 EST RBC 4.95 Million/uL 01/18/2020 18:33 EST Hgb 13.0 g/dL (Low) 01/19/2020 07:07 EST Hgb 13.5 g/dL 01/18/2020 18:33 EST Hct 40.1 % 01/19/2020 07:07 EST Hct 41.8 % 01/18/2020 18:33 EST MCV 85.1 fL 01/19/2020 07:07 EST MCV 84.4 fL 01/18/2020 18:33 EST MCH 27.6 pg 01/19/2020 07:07 EST MCH 27.3 pg 01/18/2020 18:33 EST MCHC 32.4 Gram/dL 01/19/2020 07:07 EST MCHC 32.3 Gram/dL 01/18/2020 18:33 EST Platelet Count 162 K/uL (Low) 01/19/2020 07:07 EST Platelet Count 157 K/uL (Low) 01/18/2020 18:33 EST MPV 10.7 fL 01/19/2020 07:07 EST MPV 10.6 fL 01/18/2020 18:33 EST RDW 13.9 % 01/19/2020 07:07 EST RDW 13.7 % 01/18/2020 18:33 EST Slide Review No 01/19/2020 07:07 EST Slide Review No 01/18/2020 18:33 EST PT 10.2 Second(s) 01/18/2020 18:33 EST INR 1.0 01/18/2020 18:33 EST Cholesterol Tot 256 mg/dL (High) 01/18/2020 18:33 EST Triglyceride 205 mg/dL 01/18/2020 18:33 EST Cholesterol HDL 50.0 mg/dL 01/18/2020 18:33 EST Cholesterol LDL Calculation 165.0 mg/dL (High) 01/18/2020 18:33 EST Cholesterol/HDL Ratio 5.1 (High) 01/18/2020 18:33 EST LDL/HDL Ratio 3.3 01/18/2020 18:33 EST Cholesterol VLDL Calculation 41.0 mg/dL (High) 01/18/2020 18:33 EST Fasting? Yes 01/18/2020 18:33 EST Procalcitonin <0.25 ng/mL 01/18/2020 18:32 EST Electronically signed by Stefanie, [facility] Conversion Entry Level Sales Associate Cerner at 03/17/2023 9:22 AM CDT documented in this encounter Plan of Treatment Not on file documented as of this encounter Visit Diagnoses Not on filedocumented in this encounter
--- OUTSIDE RECORDS SUMMARY | 2025-05-03 09:52 | XMS_ITS | Encounter Summary ---
Author Organization [employer] Address [address] [place] [id number] Care Team Providers Care Student Services Vice President Name Role Phone Unavailable Primary Care Provider Unavailabl e Encounter Details Date Type Department Care Team (Late st Contact Info) Description 01/19/2020 Transcribed Document [facility] [place] Family Medicine [address] [place] [address] ProviderLora MD [address] [place], [place] [address] Social History Tobacco Use Types Packs/Day Years Used Date Smoking Tobacco: Never Assessed Sex and Gender Information Value Date Recorded Sex Assigned at Not on file Legal Sex Male 5:25 PM CDT Gender Identity Not on file Sexual Orientation Not on file documented as of this encounter Miscellaneous Notes * Cerner Conversion Note - Historical ProviderMD - 01/19/2020 5:00 AM HEMMER CHAINSTITCH Chart Check - Review Order Profile Entered On: 01/19/2020 3:19 EST Performed On: 01/19/2020 5:00 EST by Mary Jane Burnham RN Chart Check Powerplans Initiated/Discontinued as Appropriate : Yes All Active Orders Reviewed : Yes Mary Jane Burnham RN - 01/19/2020 3:19 EST Electronically signed by Stefanie [facility] Conversion Graduate Student Cerner at 03/17/2023 9:28 AM CDT documented in this encounter Plan of Treatment Not on file documented as of this encounter Visit Diagnoses Not on filedocumented in this encounter
--- OUTSIDE RECORDS SUMMARY | 2025-05-03 09:52 | XMS_ITS | Encounter Summary ---
Author Organization [employer] Address [address] [place] [address] Care Team Providers Care Sales Development Associate Name Role Phone Unavailable Primary Care Provider Unavailabl e Encounter Details Date Type Department Care Team (Late st Contact Info) Description 01/21/2020 Transcribed Document [facility] [place] [address] [place] [address] ProviderLora MD [address] [place], [place] [address] Social History Tobacco Use Types Packs/Day Years Used Date Smoking Tobacco: Never Assessed Sex and Gender Information Value Date Recorded Sex Assigned at Not on file Legal Sex Male 5:25 PM CDT Gender Identity Not on file Sexual Orientation Not on file documented as of this encounter Miscellaneous Notes * Cerner Conversion Note - Historical ProviderMD - 01/21/2020 5:00 AM ELEMENTARY ELL TEACHER Chart Check - Review Order Profile Entered On: 01/21/2020 5:09 EST Performed On: 01/21/2020 5:00 EST by Rama Yeung, RN Chart Check Powerplans Initiated/Discontinued as Appropriate : Yes All Active Orders Reviewed : Yes Rama Yeung RN - 01/21/2020 5:09 EST Electronically signed by Stefanie [facility] Conversion Patient Centered Care Specialist Cerner at 03/17/2023 9:19 AM CDT documented in this encounter Plan of Treatment Not on file documented as of this encounter Visit Diagnoses Not on filedocumented in this encounter
--- OUTSIDE RECORDS SUMMARY | 2025-05-03 09:52 | XMS_ITS | Encounter Summary ---
Author Organization [employer] Address [address] [place] [address] Care Team Providers Care Performing Artist Name Role Phone Unavailable Primary Care Provider Unavailabl e Encounter Details Date Type Department Care Team (Late st Contact Info) Description 01/18/2020 Transcribed Document [facility] [place] [facility] [place] [address] ProviderLora MD [facility] [place], [place] [id number] Social History Tobacco Use Types Packs/Day Years Used Date Smoking Tobacco: Never Assessed Sex and Gender Information Value Date Recorded Sex Assigned at Not on file Legal Sex Male 5:25 PM CDT Gender Identity Not on file Sexual Orientation Not on file documented as of this encounter Miscellaneous Notes * Cerner Conversion Note - Historical ProviderMD - 01/18/2020 9:06 PM ASSEMBLER DC FIELD YOKE DATE OF ADMISSION: 01/18/2020 PRIMARY CARE PHYSICIAN: CHIEF COMPLAINT: Left foot cellulitis. HISTORY OF PRESENT ILLNESS: This is a 49-year-old male with history of coronary artery disease, status post stent placement, history of hypertension, hyperlipidemia. The patient presented at outlying facility because of not feeling well. The patient with left foot infection, started to have fever, chills, mild cough, shortness of breath. The patient has been evaluated and transferred to [facility]. The patient came in. Blood work done when he came shows hyperglycemia, dehydration. The patient was started on IV antibiotic, IV fluid, lying in bed, anxious. No family at bedside. SYSTEMIC REVIEW: GENERAL: Positive for low-grade fever and chills. HEAD: Positive for headache and dizziness. EYES: No change of vision. EARS: No earache. NOSE: No epistaxis. THROAT: No sore throat. RESPIRATORY: Positive for shortness of breath and cough. CARDIAC: No chest pain or palpitation. GI: Positive for nausea, no vomiting. URINARY: No hematuria. MUSCULOSKELETAL: Body ache. NEUROLOGICAL: No focal numbness or weakness. SKIN: Left foot cellulitis. ENDOCRINE: No heat or cold intolerance. PAST MEDICAL HISTORY: 1. History of coronary artery disease, status post stent placement. 2. Hypertension. 3. Allergic rhinitis. 4. Anxiety. 5. Arthritis. 6. Depression. 7. Hypertension. 8. Diabetes mellitus type 2. PAST SURGICAL HISTORY: 1. Coronary artery disease, status post stent placement. 2. Tonsillectomy. SOCIAL HISTORY: The patient used to be a smoker, but quit. Denies any alcohol or drug abuse. FAMILY HISTORY: Positive for hypertension and diabetes. ALLERGIES: Penicillin. HOME MEDICATIONS: 1. Aspirin 81 mg daily. 2. Lipitor 40 mg daily. 3. Insulin lispro units subcu 3 times daily. 4. Prilosec 20 mg daily. 5. Sertraline 100 mg daily. 6. Trazodone 50 mg at bedtime as needed. PHYSICAL EXAMINATION: VITAL SIGNS: Blood pressure 128/80, heart rate 71, respiratory rate 16. HEENT: Head is atraumatic, normocephalic. Pupils are round and reactive. Eyes, no conjunctival injection or discharge. Ears, no discharge. Nose, no bleeding or discharge. Mouth dry. NECK: Supple. Full range of motion. CHEST: Poor inspiratory effort. Clear to auscultation. No crackles, wheezes, or rhonchi. HEART: S1 and S2 heard. Regular rate and rhythm. ABDOMEN: Soft. Audible bowel sounds. No tenderness. No guarding. No rebound tenderness. EXTREMITIES: Left foot with ulcer. Right lower extremity, no edema, erythema or tenderness. NEUROLOGICAL: No apparent focal motor or sensory deficit. The patient is alert, awake, oriented x3. Intact cranial nerves. PSYCHIATRIC: Positive for anxiety. SKIN: Left foot ulceration. ENDOCRINE: No thyromegaly or tenderness. GENERAL: The patient lying in bed, anxious. No family at bedside. LABORATORY DATA AND STUDIES: Sodium 137, potassium 3.9, chloride 105, CO2 of 28, glucose 209, BUN 23, creatinine 1.1, calcium 8.6, protein 6.3, albumin 3.2, globulin 3.1, bilirubin 0.6, alkaline phosphatase 90, AST 18, ALT 32, magnesium 1.7. Troponin 0.015. BNP 202. White blood cells 8.4, hemoglobin 13.5, hematocrit 41.8, and platelets 157. INR 1.0. ASSESSMENT AND PLAN: 1. Left foot cellulitis and diabetic ulcer, rule out osteomyelitis. The patient admitted to the hospital. Culture done. Start the patient on IV vancomycin and Merrem. We will consult Infectious Disease. 2. Left foot diabetic ulcer/rule out osteomyelitis. We will check x-ray. We will consult the cat tender. Start IV antibiotic. 3. Diabetes mellitus. The patient started on sliding scale. 4. Rule out peripheral vascular disease. The patient with history of coronary artery disease, history of stent placement, possible peripheral vascular disease. We will consult Cardiology. 5. History of coronary artery disease, status post stent placement. We will resume home medication. Cardiology consulted. The patient with no chest pain. 6. Hyperlipidemia, on statin, to be continued. 7. Hypertension. We will start hydralazine as needed. 8. Mild dehydration. We will start IV fluids. 9. Gastrointestinal prophylaxis, Pepcid. 10. Deep venous thrombosis prophylaxis, heparin. Plan discussed with the patient, with RN. Chart was reviewed. Time spent, 55 minutes. /[id number] MD GABY Malloy/KELLEY / GABY / MODL Electronically signed by Stefanie, [facility] Conversion Outside Sales Account Executive Cerner at 03/17/2023 9:14 AM CDT documented in this encounter Plan of Treatment Not on file documented as of this encounter Visit Diagnoses Not on filedocumented in this encounter
--- OUTSIDE RECORDS SUMMARY | 2025-05-03 09:52 | XMS_ITS | Encounter Summary ---
Author Organization [employer] Address [address] [place] [address] Care Team Providers Care Java J2Ee Architect Name Role Phone Unavailable Primary Care Provider Unavailabl e Encounter Details Date Type Department Care Team (Late st Contact Info) Description 01/20/2020 Transcribed Document [facility] [place] [facility] [place] [address] ProviderLora MD [address] [place], [place] [id number] Social History Tobacco Use Types Packs/Day Years Used Date Smoking Tobacco: Never Assessed Sex and Gender Information Value Date Recorded Sex Assigned at Not on file Legal Sex Male 5:25 PM CDT Gender Identity Not on file Sexual Orientation Not on file documented as of this encounter Miscellaneous Notes * Cerner Conversion Note - Historical ProviderMD - 01/20/2020 1:07 PM HOUSE MANAGER Initial Discharge Planning Entered On: 01/20/2020 13:12 EST Performed On: 01/20/2020 13:07 EST by SANDY LEIJA RN-Care Management Initial Assessment I Previously Documented Living Environment : No qualifying data available. SANDY LEIJA RN-Care Management - 01/20/2020 13:22 EST Living Situation : Home Patient Lives With : Spouse Is the Patient a Caregiver at Home? : No Emergency Contact #1 : fercho delgado Emergency Contact #1 Emergency Contact #1 Relationship : Emergency Contact #2 : , Emergency Contact #2 Phone Number : , Emergency Contact #2 Relationship : , Enter Doctors Name : Quyen Preston Does Patient have PCP Listed? : Yes SANDY LEIJA RN-Care Management - 01/20/2020 13:07 EST Initial Assessment II Sensory and Motor Deficits : None Current Home Treatments and Equipment : None SANDY LEIJA RN-Care Management - 01/20/2020 13:22 EST Discharge Needs I Anticipated Discharge Date : 01/22/2020 EST Anticipated Discharge To, CM : Other: Yet to be determined. Current Home Treatment/Equipment : Current Home Treatment/Equipment No qualifying data available. Post Acute/Home Treatments : Other: yet to be determined Documentation Status Complete : Yes SANDY LEIJA RN-Care Management - 01/20/2020 13:22 EST Discharge Needs II Professional Skilled Services : Professional Skilled Services No qualifying data available. Needs Assistance with Transportation : No Discharge Options Discussed with Patient : Discharge transportation, DME, Home Health, Short term rehabilitation SANDY LEIJA RN-Care Management - 01/20/2020 13:22 EST Narrative Note Narrative Note : Low RRS 34/ Pt reports lives w/spouse and is indep as well as employeed. Pt denies DME/HH/SNF hx. States is drives self, and is well w/current living situation. No needs originally addressed during initial assessment, and CM to cont following. MRI pending. SANDY LEIJA RN-Care Management - 01/20/2020 13:22 EST documented in this encounter Plan of Treatment Not on file documented as of this encounter Visit Diagnoses Not on filedocumented in this encounter
--- OUTSIDE RECORDS SUMMARY | 2025-05-03 09:52 | XMS_ITS | Encounter Summary ---
Author Organization [employer] Address [address] [place] [address] Care Team Providers Care Lingo Cleaner Name Role Phone Unavailable Primary Care Provider Unavailabl e Encounter Details Date Type Department Care Team (Late st Contact Info) Description 01/19/2020 Transcribed Document [facility] [place] Medicine [address] [place] [address] ProviderLora MD [address] [place], [place] [id number] Social History Tobacco Use Types Packs/Day Years Used Date Smoking Tobacco: Never Assessed Sex and Gender Information Value Date Recorded Sex Assigned at Not on file Legal Sex Male 5:25 PM CDT Gender Identity Not on file Sexual Orientation Not on file documented as of this encounter Miscellaneous Notes * Cerner Conversion Note - Historical ProviderMD - 01/19/2020 9:00 AM ANDROID PLATFORM DEVELOPER Consult Phone Call Documentation Entered On: 01/19/2020 10:28 EST Performed On: 01/19/2020 9:00 EST by Jessica Johnson [facility] Coord Phone Call for Consults Consult Phone Call/Page Attempt : Second call Consult Reason : foot cellulitis Physician Requesting Consult : CONRAD GARDNER MD-[facility] Physician Requested for Consult : TANISHA AMAYA DPM-POD Provider Service Notified Name : Podiatry Physician Covering for Consult : CHERISE HOWELL DPM-TOMMY Date and Time Call Returned : 01/19/2020 10:28 EST Jessica Johnson [facility] Coord - 01/19/2020 10:27 EST Electronically signed by [facility] Conversion Integrated Circuit Design Engineer Cerner at 03/17/2023 9:14 AM CDT documented in this encounter Plan of Treatment Not on file documented as of this encounter Visit Diagnoses Not on filedocumented in this encounter
--- OUTSIDE RECORDS SUMMARY | 2025-05-03 09:52 | XMS_ITS | Encounter Summary ---
Author Organization [employer] Address [address] [place] [address] Care Team Providers Care Inspector Missile Name Role Phone Unavailable Primary Care Provider Unavailabl e Encounter Details Date Type Department Care Team (Late st Contact Info) Description 01/20/2020 Transcribed Document [facility] Family Medicine [address] [place] [address] ProviderLora MD [address] [place], [place] [address] Social History Tobacco Use Types Packs/Day Years Used Date Smoking Tobacco: Never Assessed Sex and Gender Information Value Date Recorded Sex Assigned at Not on file Legal Sex Male 5:25 PM CDT Gender Identity Not on file Sexual Orientation Not on file documented as of this encounter Miscellaneous Notes * Cerner Conversion Note - Historical ProviderMD - 01/20/2020 5:00 AM RESIDENTIAL SOLAR CONSULTANT Chart Check - Review Order Profile Entered On: 01/20/2020 3:35 EST Performed On: 01/20/2020 5:00 EST by Mary Jane Burnham RN Chart Check Powerplans Initiated/Discontinued as Appropriate : Yes All Active Orders Reviewed : Yes Mary Jane Burnham RN - 01/20/2020 3:35 EST Electronically signed by Stefanie [facility] Conversion Oil And Gas Recruiter Cerner at 03/17/2023 9:36 AM CDT documented in this encounter Plan of Treatment Not on file documented as of this encounter Visit Diagnoses Not on filedocumented in this encounter
--- OUTSIDE RECORDS SUMMARY | 2025-05-03 09:52 | XMS_ITS | Encounter Summary ---
Author Organization [employer] Address [address] [place] [address] Care Team Providers Care Brush Machine Setter Name Role Phone Unavailable Primary Care Provider Unavailabl e Encounter Details Date Type Department Care Team (Late st Contact Info) Description 01/21/2020 Transcribed Document [facility] [place] [facility] [place] [address] ProviderLora MD [address] [place] [id number] Social History Tobacco Use Types Packs/Day Years Used Date Smoking Tobacco: Never Assessed Sex and Gender Information Value Date Recorded Sex Assigned at Not on file Legal Sex Male 5:25 PM CDT Gender Identity Not on file Sexual Orientation Not on file documented as of this encounter Miscellaneous Notes * Cerner Conversion Note - Historical ProviderMD - 01/21/2020 2:32 PM DOLL WIG HACKLER Nursing Discharge Summary Entered On: 01/21/2020 14:33 EST Performed On: 01/21/2020 14:32 EST by Cinthya Salamanca RN Discharge Documentation Discharge Date/Time : 01/21/2020 14:45 EST Patient Disposition, General : Discharge Discharge To : Home with ambulatory/outpatient follow-up Mode Of Departure, General Discharge : Private vehicle, Wheelchair Accompanied By, Discharge : Spouse IV Discontinued : Yes Personal Belongings With Patient : Yes Prescriptions Given to Patient : Yes Discharge Instructions Reviewed With, Opportunity For Questions Given : Patient, Spouse Patient Education Completed : Yes Number of Prescriptions Given : 3 Teaching Method : Explanation Teaching Evaluation : Verbalizes understanding Education Comment : pt verbalizes understanding regarding discharge instructions Cinthya Salamanca RN - 01/21/2020 14:32 EST Electronically signed by [facility] Conversion Mixing Tumbler Operator Cerner at 03/17/2023 9:22 AM CDT documented in this encounter Plan of Treatment Not on file documented as of this encounter Visit Diagnoses Not on filedocumented in this encounter
--- OUTSIDE RECORDS SUMMARY | 2025-05-03 09:52 | XMS_ITS | Encounter Summary ---
Author Organization [employer] Address [address] [place] [address] Care Team Providers Care Supervisor Spinning Name Role Phone Unavailable Primary Care Provider Unavailabl e Encounter Details Date Type Department Care Team (Late st Contact Info) Description 01/21/2020 Transcribed Document [facility] [place] [facility] [place] [address] ProviderLora MD [address] [place] [address] Social History Tobacco Use Types Packs/Day Years Used Date Smoking Tobacco: Never Assessed Sex and Gender Information Value Date Recorded Sex Assigned at Not on file Legal Sex Male 5:25 PM CDT Gender Identity Not on file Sexual Orientation Not on file documented as of this encounter Miscellaneous Notes * Cerner Conversion Note - Historical ProviderMD - 01/21/2020 8:44 AM SOFTWARE DEVELOPMENT ANALYST Patient: JONATHAN DELGADO Age: 49 years Sex: Male : 1970 Associated Diagnoses: None Author: MARA FLORES MD-INF ID PROGRESS NOTE Referring MD: Dr Bravo Date of admission: 01/18/20 Date of consultation: 01/19/20 Reason for consultation: foot cellulitis Chief Complaint: foot pain Current antimicrobial therapy: Rocephin HPI: 01/19/20: Mr. Jonathan Delgado is a 49-year-old male being evaluated for left foot wound. He has a past medical history significant for diabetes mellitus, peripheral neuropathy, hyperlipidemia and hypertension. He originally presented to [facility] with complaints of left foot pain. States that this pain began about Monday is when he first noticed. He has his took his foot and discovered that there was a wound on the sole of his left foot on the ball of the foot. He does not recall any trauma to the foot. Family stated that due to a disagreement with the sports medicine physician that was on duty they requested transfer from that facility to here. Labs at outside hospital showed patient was without leukocytosis and was generally unremarkable. Cultures were obtained and patient was given 2 g IV Rocephin. He did receive a foot x-ray while at [facility] but the report did not accopany [...] treatment as well as antimicrobial therapy management. 01/20/20: Some foot pain 6 out of 10, denies f/c, sob, n/v/d, rashes. 01/21/20: He has decreased left foot pain. He has remained afebrile. He denies nausea, vomiting, diarrhea. He would like to go home. Past Medical History: Active Problems (11) Angina Coronary artery disease Diabetes mellitus type II GERD - Gastro-esophageal reflux disease History of obstructive sleep apnea Hyperlipidemia Hypertension Impaired vision in both eyes Migraine Prostate infection Stented coronary artery Past Surgical History: Cholecystectomy Hernia repair Placement Zaman cardiac conduit Elbow procedure The procedure Family History: Potential Social History: Former smoker Denies EtOH or illicit drugs Physical Examination: Vitals Signs (last 24 hrs) Last Charted Minimum Maximum Temp 97.5 (JAN 21 06:16) 97.5 (JAN 21 06:16) 97.6 (JAN 20 10:36) Mon HR 67 (JAN 21 06:16) 65 (JAN 21 03:45) 72 (JAN 20 23:00) Resp Rate 18 (JAN 21 06:16) 16 (JAN 20 23:00) 18 (JAN 20 10:36) SBP 125 (JAN 21 06:16) 112 (JAN 20 10:36) H 144 (JAN 20 23:00) DBP 81 (JAN 21 06:16) 72 (JAN 20 10:36) 89 (JAN 20 23:00) MAP 102 (JAN 21 06:16) 84 (JAN 20 10:36) 103 (JAN 20 23:00) SpO2 97 (JAN 21 07:29) L 92 (JAN 20 10:36) 98 (JAN 21 03:45) Exam: Gen: Alert, in no acute distress, appears stated age HEENT: NC/AT, sclera nonicteric, no conjunctival injection, RESP: CTA bilaterally without rhonchi, rales, or wheezes. Nonlabored breathing CV: RRR, no murmurs, gallops, or rubs. No edema GI: BS normoactive in all 4 quadrants, soft, nontender, nondistended : No [place] in place MS: FROM in all extremities, no pain with motion, no swelling or edema noted SKIN: 2.5 x 2.5 circular wound to the ball the left foot. The wound has a beefy red wound bed was some purulence noted. There is some decreased surrounding erythema. NEURO: A and O x 4, CN II-XII grossly intact. He has lower extremity numbness bilaterally PSYCH: Normal insight and judgment, cooperative with PE Labs:Labs (Last four charted values) WBC 6.5 (JAN 21) 6.5 (B ) 8.0 (B ) 8.4 (B ) HB 13.6 (JAN 21) 13.9 (B ) L 13.0 (JAN 19) 13.5 (B ) HCT 41.5 (JAN 21) 42.9 (B 24) 40.1 (B ) 41.8 (FEB ) Plt 180 (B ) 190 (FEB 24) L 162 (FEB 23) L 157 (FEB 22) Na 136 (B ) 139 (B 24) 137 (FEB 23) 137 (FEB ) K 4.0 (B ) 4.2 (B 24) 4.3 (B ) 3.9 (FEB 22) Cl 105 (B ) 107 (FEB 24) 106 (FEB 23) 105 (FEB 22) CO2 30 (B ) 29 (B 24) 29 (FEB 23) 28 (FEB 22) BUN 17 (JAN 21) 20 (FEB 24) 22 (JAN 19) H 23 (JAN 18) Cr 1.00 (JAN 21) 1.00 (JAN 20) 1.10 (JAN 19) 1.10 (JAN 18) Glu R H 119 (JAN 21) H 145 (JAN 20) H 165 (JAN 19) H 209 (JAN 18) Ca 9.0 (JAN 21) 9.3 (JAN 20) 8.6 (JAN 19) 8.6 (JAN 18) Lactic 0.7 (JAN 19) 1.1 (JAN 18) PT 10.2 (JAN 18) INR 1.0 (JAN 18) AST 18 (JAN 18) ALT 32 (JAN 18) ALK P 90 (JAN 18) T Bili 0.6 (JAN 18) PTN L 6.3 (JAN 18) ALB L 3.2 (JAN 18) Troponin <0.015 (JAN 18) Micro: 01/19 wound cultures MSSA???I discussed this with the lab today 01/18 blood cultures [facility] Rad: Radiology Results (Last 48 hours) [id number] -- 01/19/2020 15:12 CR Chest 2 Vws [...] agree with the above final transcribed report. MRI Foot LT WO (01/20/2020 09:26) Result: MRI OF THE LEFT FOOT WITHOUT CONTRASTINDICATION: Ulcer in first and second metatarsal region evaluate forosteomyelitisTECHNIQUE: Multiplanar and multisequence noncontrast MRI imaging of theleft foot was performed.FINDINGS:The exam is severely degraded by motion artifact.There is mild diffuse soft tissue edema.At the plantar aspect of the first metatarsal neck medially there is asmall, approximately 10 x 2 mm tubular fluid collection.No abnormal bone marrow signal is identified.IMPRESSION:1. No evidence of osteomyelitis.2. Small tubular fluid collection adjacent to the first metatarsal neckis nonspecific, this may be within a tendon sheath. Sterility isindeterminate. IMPRESSION: 1. MSSA left first metatarsal wound infection/cellulitis???this is slowly improving. There is no evidence of osteomyelitis by MRI scan. I will plan to simplify his antibiotic therapy to ceftriaxone alone. He can discharge today and see me in the office tomorrow for acute outpatient care. At this point, I plan to give him 2???3 more days of outpatient intravenous antibiotic therapy before switching him to oral antibiotic therapy. 2. Coronary artery disease status post PCI 3. Diabetes mellitus- Type II 4. Hypertension 5. Peripheral neuropathy RECOMMENDATIONS/PLANS: 1. Discontinue daptomycin 2. Continue ceftriaxone 2 g IV daily???he will need a dose this morning prior to discharge 3. Discharge to home today 4. Wound care per podiatry 5. Follow-up with me tomorrow 01/22 at 1:30???this appointment has been made I discussed his clinical situation with Dr. Sevilla this morning. He will plan to see him in follow-up next week. I coordinated his care today. I spent over 35 minutes on his care today. Electronically signed by Stefanie, [facility] Conversion Corporate Services Manager Cerner at 03/17/2023 9:19 AM CDT documented in this encounter Plan of Treatment Not on file documented as of this encounter Visit Diagnoses Not on filedocumented in this encounter
--- OUTSIDE RECORDS SUMMARY | 2025-05-03 09:52 | XMS_ITS | Clinical Summary ---
Author Organization [facility] Address [address] [place] [address] Care Team Providers Care Furniture Designer Name Role Phone Quyen Vincent DO Primary Care Provider [phone] Social History Tobacco Use Types Packs/Day Years Used Date Smoking Tobacco: Every Day Alcohol Use Standard Drinks/Week Comments Yes 0 (1 standard drink = 0.6 oz pur e alcohol) Sex and Gender Information Value Date Recorded Sex Assigned at Not on file Legal Sex Male 6:42 PM EDT Gender Identity Not on file Sexual Orientation Not on file Last Filed Vital Signs Vital Sign Reading Time Taken Comments Blood Pressure - - Pulse - - Temperature - - Respiratory Rate - - Oxygen Saturation - - Inhaled Oxygen Concentration - - Weight 102 kg (225 lb) 10/12/2011 2:59 PM EST Height 188 cm (6' 2 ) 10/12/2011 2:59 PM EST Body Mass Index 28.89 10/12/2011 2:59 PM EST Plan of Treatment Not on file Care Teams Furniture Designer Relationship Specialty Start Date End Date Quyen Vincent DO [address] [place] [address] PCP - General 04/09/21
--- OUTSIDE RECORDS SUMMARY | 2025-05-03 09:52 | XMS_ITS | Encounter Summary ---
Author Organization [employer] Address [address] [place] [id number] Care Team Providers Care Bilingual Student Tutor Name Role Phone Unavailable Primary Care Provider Unavailabl e Encounter Details Date Type Department Care Team (Late st Contact Info) Description 01/19/2020 Transcribed Document [facility] Family Medicine Counts include 234 beds at the [facility] [place] [address] ProviderLora MD [address], [place] [id number] Social History Tobacco Use Types Packs/Day Years Used Date Smoking Tobacco: Never Assessed Sex and Gender Information Value Date Recorded Sex Assigned at Not on file Legal Sex Male 5:25 PM CDT Gender Identity Not on file Sexual Orientation Not on file documented as of this encounter Miscellaneous Notes * Cerner Conversion Note - Lora ProviderMD - 01/19/2020 11:27 AM ACCOUNT SUPPORT REP Patient: JONATHAN DELGADO Age: 49 years Sex: Male : 1970 Associated Diagnoses: None Author: ESTHELA SCHMITT MD-CAR Basic Information PCP: primary cardiology- Dr Sibley ([facility] for caths) Chief Complaint left foot infection History of Present Illness 49 yo male with history with CAD (PCI 2013), HTN, and DM presented to outside facility with complaints of redness of left foot, fever and chills. Pt transferred to [facility] for further evaluation and treatment. Pt states he started with fever and chills earlier in the week. started noticing redness on bottom of left foot. Podiatry opened and drained it today. Cardiology consulted for evaluation of PVD. Pt was recently seen by primary cardiology and noted some chest pain. He has pending stress test scheduled for first week in january. Review of Systems Constitutional: Negative except as documented in history of present illness. Eye: Negative except as documented in history of present illness. Ear/Nose/Mouth/Throat: Negative except as documented in history of present illness. Respiratory: Negative except as documented in history of present illness. Cardiovascular: Negative except as documented in history of present illness. Gastrointestinal: Negative except as documented in history of present illness. Genitourinary: Negative except as documented in history of present illness. Hematology/Lymphatics: Negative except as documented in history of present illness. Endocrine: Negative except as documented in history of present illness. Immunologic: Negative except as documented in history of present illness. Musculoskeletal: Negative except as documented in history of present illness. Integumentary: Negative except as documented in history of present illness. Neurologic: Negative except as documented in history of present illness. Psychiatric: Negative except as documented in history of present illness. Health Status Allergies (1) Active Reaction penicillin None Documented Home Medications (6) Active aspirin 81 mg, Oral, Daily atorvastatin 40 mg, Oral, At Bedtime insulin lispro 15 Units, SubCutaneous, TID With Meals omeprazole 20 mg, Oral, Daily sertraline 100 mg oral tablet 200 mg = 2 Tab, Oral, Daily traZODone 50 mg, PRN, Oral, At Bedtime Allergies: Allergic Reactions (Selected) Severity Not Documented Penicillin- No reactions were documented. Current medications: (Selected) Inpatient Medications Ordered Ativan: 0.5 mg, IV Push, Q4H, PRN: Agitation DuoNeb 0.5 mg-2.5 mg/3 mL inhalation solution: 3 mL, Nebulized Inhalation, Q2H, PRN: Shortness of Breath DuoNeb 0.5 mg-2.5 mg/3 mL inhalation solution: 3 mL, Nebulized Inhalation, Q2H, PRN: Shortness of Breath Merrem + Sodium Chloride 0.9% intravenous solution 50 mL: 500 mg, 16.67 mL/Hr, IV Piggyback, Q6H Normal Saline 1,000 mL: 75 mL/Hr, IntraVENous Pepcid: 20 mg, Oral, Daily Phenergan: 6.25 mg, IntraVENous, Q6H, PRN: Nausea Tylenol: 650 mg, Oral, Q4H, PRN: Other (See Comment) Zofran: 4 mg, IV Push, Q4H, PRN: Nausea aspirin: 81 mg, Oral, Daily atorvastatin: 40 mg, Oral, At Bedtime cloNIDine: 0.1 mg, Oral, Q4H, PRN: Hypertension heparin: 5,000 Units, SubCutaneous, Q8H hydrALAZINE: 10 mg, IV Push, Q6H, PRN: Hypertension oxyCODONE: 5 mg, Oral, Q4H, PRN: Pain (Severe 7-10) sertraline: 200 mg, Oral, Daily traZODone: 50 mg, Oral, At Bedtime, PRN: Insomnia Problem list: All Problems Angina / SNOMED CT 437101763 / Confirmed Coronary artery disease / SNOMED CT 9070176828 / Confirmed Diabetes mellitus type II / SNOMED CT 45068175 / Confirmed GERD - Gastro-esophageal reflux disease / SNOMED CT 0477717734 / Confirmed History of obstructive sleep apnea / IMO 32415830 / Confirmed Hyperlipidemia / SNOMED CT 35444436 / Confirmed Hypertension / SNOMED CT 70429780 / Confirmed Impaired vision in both eyes / SNOMED CT 680287424 / Confirmed Migraine / SNOMED CT 38218702 / Confirmed Prostate infection / SNOMED CT 27079544 / Confirmed Stented coronary artery / SNOMED CT 2160480814 / Confirmed, Active Problems (11) Angina Coronary artery disease Diabetes mellitus type II GERD - Gastro-esophageal reflux disease History of obstructive sleep apnea Hyperlipidemia Hypertension Impaired vision in both eyes Migraine Prostate infection Stented coronary artery Histories No education data available. Social & Psychosocial Habits Alcohol 05/31/2015 Alcohol Use History, Social Habits No 01/18/2020 Alcohol Use History, Social Habits No Alcohol Use in Last Twelve Months No Nutrition/Health 05/31/2015 Type of diet: Diabetic Substance Abuse 05/31/2015 Recreational Drug Use History No Recreational Drug Use Last 12 Months No 01/18/2020 Recreational Drug Use History No Recreational Drug Use Last 12 Months No Tobacco 11/30/2015 Smoking Status Never smoker Month Tobacco Last Used pt quit smoking in 200001/18/2020 Smoking Status Never (less than 100 in l Smokeless Tobacco Status Never Past Medical History: No active or resolved past medical history items have been selected or recorded. Family History: Entire family history is negative. Procedure history: Stent ([id number]). bilateral hernia repair. cardiac catheterization with coronary stents. right knee surgery. left elbow surgery. lucinda. Physical Examination VS/Measurements Vital Signs/Vital Measures 01/19/2020 10:55 EST Systolic Blood Pressure 115 mmHg Diastolic Blood Pressure 73 mmHg Heart Rate Monitored 81 bpm Respiratory Rate 17 Breaths/Min Oxygen Saturation 93 % LOW 01/19/2020 6:22 EST Systolic Blood Pressure 106 mmHg Diastolic Blood Pressure 63 mmHg Heart Rate Monitored 71 bpm Respiratory Rate 18 Breaths/Min 01/19/2020 3:30 EST Systolic Blood Pressure 105 mmHg Diastolic Blood Pressure 75 mmHg , Vitals Signs (last 24 hrs) Last Charted Minimum Maximum Mon HR 81 (JAN 19 10:55) 71 (JAN 18 18:39) 87 (JAN 18 23:30) Resp Rate 17 (JAN 19 10:55) 16 (JAN 18 18:39) 18 (JAN 18:30) SBP 115 (JAN 19 10:55) 105 (JAN 19 03:30) 128 (JAN 18 18:39) DBP 73 (JAN 19 10:55) 63 (JAN 19 06:22) 80 (JAN 18 18:39) MAP 86 (JAN 19 10:55) 84 (JAN 19 03:30) 93 (JAN 18 18:39) SpO2 L 93 (JAN 19 10:55) L 93 (JAN 19 10:55) 96 (JAN 18 18:39) General: Alert and oriented, No acute distress. HENT: Oral mucosa is moist. Neck: Supple. Respiratory: Lungs are clear to auscultation, Respirations are non-labored, Breath sounds are equal. Cardiovascular: Normal rate, Regular rhythm, No murmur, right foot- good DP/PT pulse left foot with dressing present. unable to assess pulse. Gastrointestinal: Soft, Normal bowel sounds. Lymphatics: No lymphadenopathy neck, axilla, groin. Integumentary: Warm, Dry. Neurologic: Alert, Oriented. Psychiatric: Cooperative, Appropriate mood & affect. Review / Management JAN 19 07:07 137 106 22 / H 165 4.3 29 1.10 \ Cardiac Markers (Current Encounter/Past 24 Hours) ProBNP 202 pg/mL CO 01/18/2020 19:18 Blood Gases (Current Encounter/Past 24 Hours) No Blood Gas Results Found (Past 24 Hours) Radiology Results (Last 48 hours) [id number] -- 01/18/2020 16:50 CR Chest 2 Vws [...] agree with the above final transcribed report. Results review: Labs (Last four charted values) WBC 8.0 (JAN [...] 3.2 (JAN 18) Troponin <0.015 (JAN 18) . Impression and Plan IMPRESSION: *Left foot Cellulitis -arterial duplex ordered to r/o PVD *ASCVD -prior PCI 2013 *HTN *DM PLAN; I do not think that this is [...]
--- OUTSIDE RECORDS SUMMARY | 2025-05-03 09:52 | XMS_ITS | Data Portability ---
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 Name Role Phone QUYEN DELACRUZ Primary Care Provider [phone] Assessment Encounter Date Assessment Date Assessment LastModified [...] FIDEL Duggan, [address], [address], [place], [address], 4 16:27:23 calprotect in, stool 2023 024 FIDEL Duggan, [address], [address], [place], [address], 4 07:16:57 O&P (ova & parasites) , stool 2023 024 FIDEL Duggan, [address], [address], [place], [address], 4 07:16:59 fecal fat, qualitativ e, stool 2023 024 FIDEL Urban, [address], [address], [place], [address], 4 07:16:56 ESR (erythrocy te sedimentat ion rate), blood 2023 024 FIDEL Labjeffrey, [address], [address], [place], [address], 4 11:15:28 C-reactive protein, quantitati ve, serum or plasma 2023 024 [email or web address] [facility], [address], [address], [place], [address], 4 15:39:56 H pylori Ag, stool 2023 024 FIDEL [facility], [address], [address], [place], [address], 4 08:28:00 pancreatic elastase, quant, stool 2023 024 FIDEL [facility], [address], [address], [place], [address], 4 07:16:58 phosphatid ylethanol, QN, blood 2023 024 FIDEL [facility], [address], [address], [place], [address], 4 11:15:23 HbA1c (hemoglobi n A1c), blood 2023 024 FIDLE [facility], [address], [address], [place], [address], 4 11:15:27 amylase + lipase, serum 2023 024 FIDEL [facility], [address], [address], [place], [address], 4 11:15:24 calcium, ionized, quant ISE, serum or plasma 2023 024 FIDEL [facility], [address], [address], [place], [address], 4 11:15:29 lipid panel, serum 2023 024 FIDEL [facility], [address], [address], [place], [address], 4 11:15:22 igg, subclass 4, quantitati ve, serum 2023 024 FIDEL [facility], [address], [address], [place], [address], 4 11:15:30 7-alpha hydroxy-4- cholesten- 3-one, QN, serum or plasma 2023 024 BOGATA [facility], [address], [facility] [address], [place], [address], 4 11:15:26 CMP, serum or plasma 2023 024 BOGATA [facility], [address], [facility] [address], [place], [address], 4 11:15:21 CMP, serum or plasma [address] (Lab Registration) , [address] [place] [address] [place], [address], 4 09:38:57 CBC w/ auto diff [address] (Lab Registration) , [address] [place] [address] [place], [address], 4 09:38:57 Referral None recorded. Procedures None recorded. Surgeries None recorded. Imaging CT, abdomen, w/ contrast 2023 024 [facility] (Central Scheduling), [address] [place] [address] [place], [address], 4 09:51:43 Medication Orders sucralfate 100 mg/mL oral suspension 2024 025 [email or web address] [facility]/Pharmacy #[id number], [address] [place], [address], 5 09:51:45 pantoprazo le 40 mg tablet,del ayed release 2023 024 [facility]/Pharmacy #3016, [address] [place], [address], 4 15:41:35 colestipol 1 gram tablet 2023 024 [facility]/Pharmacy #3016, [address] [place], [address], 11:07:18 gabapentin 300 mg capsule 2023 024 [email or web address] [facility]/Pharmacy #3016, [address] [place], [address], 10:21:21 primidone 50 mg tablet 2023 024 [facility]/Pharmacy #3016, [address] [place], [address], 10:05:59 Patient TargetsNo targets recorded. Patient Instructions Encounter Date Encounter Id Patient Instructions Last Modified By Organization Details Last Modified Time 01/14/2025 [id number] f/u 8 weeks [email or web address] Not available 21:53:52 Reason for Referral None Reported. Results Created Date Observation Date Name Description Value Unit Range Abnormal Flag Note LastModifiedBy Organization Detail LastModifiedTime 06/25/20 24 06/25/2024 CBC W/ AUTO DIFF WBC 7.54 K/uL 4.5-11 .5 Not Available [facility] (Pre-Op [facility]) [address] [place] [address] [place], [address], 06/25/2024 15:47:19 06/25/20 24 06/25/2024 CBC W/ AUTO DIFF RBC 5.37 M/uL 4.0-5. 4 Not Available [facility] (Pre-Op [facility]) [address] [place] [address] [place], [address], 06/25/2024 15:47:19 06/25/20 24 06/25/2024 CBC W/ AUTO DIFF HGB 14.9 g/dL 14.0-1 8.0 Not Available [facility] (Pre-Op [facility]) [address] [place] [address] [place], [address], 06/25/2024 15:47:19 06/25/20 24 06/25/2024 CBC W/ AUTO DIFF HCT 45.8 % 40-54 Not Available [facility] (Pre-Op [facility]) [address] [place] [address] [place], [address], 06/25/2024 15:47:19 06/25/20 24 06/25/2024 CBC W/ AUTO DIFF MCV 85.3 fL 80.0-1 00.0 Not Available [facility] ([facility]Op [facility]) [address] [place] [address] [place], [address], 06/25/2024 15:47:19 06/25/20 24 06/25/2024 CBC W/ AUTO DIFF MCH 27.7 pg 26.0-3 2.0 Not Available [facility] (Pre-Op [facility]) [address] [place] [address] [place], [address], 06/25/2024 15:47:19 06/25/20 24 06/25/2024 CBC W/ AUTO DIFF MCHC 32.5 g/dL 32.0-3 6.0 Not Available [facility] ([facility]-Op [facility]) [address] [place] [address] [place], [address], 06/25/2024 15:47:19 06/25/20 24 06/25/2024 CBC W/ AUTO DIFF RDW 13.9 % 11.5-1 4.5 Not Available [facility] ([facility]Op [facility]) [address] [place] [address] [place], [address], 06/25/2024 15:47:19 06/25/20 24 06/25/2024 CBC W/ AUTO DIFF platelet count 166 K/uL 142-42 4 Not Available [facility] ([facility]Op [facility]) [address] [place] [address] [place], [address], 06/25/2024 15:47:19 06/25/20 24 06/25/2024 CBC W/ AUTO DIFF MPV 10.5 fL 6.8-10 .2 high Not Available [facility] ([facility]Op [facility]) [address] [place] [address] [place], [address], 06/25/2024 15:47:19 06/25/20 24 06/25/2024 CBC W/ AUTO DIFF neutrophil % 73.6 % 50-70 high Not Available [facility] (Pre[facility]Op [facility]) [address] [facility] [place], [address], 06/25/2024 15:47:19 06/25/20 24 06/25/2024 CBC W/ AUTO DIFF lymphocyte % 14.6 % 18.0-4 2.0 low Not Available [facility] (Pre[facility]Op [facility]) [address] [facility] [place], [address], 06/25/2024 15:47:19 06/25/20 24 06/25/2024 CBC W/ AUTO DIFF monocyte % 7.4 % 2.0-11 .0 Not Available [facility] (Pre[facility]Op [facility]) [address] [place] [address] [place], [address], 06/25/2024 15:47:19 06/25/20 24 06/25/2024 CBC W/ AUTO DIFF eosinophil % 3.2 % 1.0-3. 0 high Not Available [facility] (Pre[facility]Op [facility]) [address] [facility] [place], [address], 06/25/2024 15:47:19 06/25/20 24 06/25/2024 CBC W/ AUTO DIFF basophil % 0.8 % 0.0-2. 0 Not Available [facility] ([facility]Op [facility]) [address] [facility] [place], [address], 06/25/2024 15:47:19 06/25/20 24 06/25/2024 CBC W/ AUTO DIFF immature granulocytes % 0.4 % 0.0-0. 8 Not Available [facility] ([facility]Op [facility]) [address] [facility] [place], [address], 06/25/2024 15:47:19 06/25/20 24 06/25/2024 CBC W/ AUTO DIFF nucleated red blood cells % 0.0 % Not Available [facility] ([facility]Op [facility]) [address] [facility] [place], [address], 06/25/2024 15:47:19 06/25/20 24 06/25/2024 CBC W/ AUTO DIFF neutrophil # 5.55 K/uL Not Available [facility] ([facility]Op [facility]) [address] [place] [address] [place], [address], 06/25/2024 15:47:19 06/25/20 24 06/25/2024 CBC W/ AUTO DIFF lymphocyte # 1.10 K/uL Not Available [facility] ([facility]Op [facility]) [address] [place] [address] [place], [address], 06/25/2024 15:47:19 06/25/20 24 06/25/2024 CBC W/ AUTO DIFF monocyte # 0.56 K/uL Not Available [facility] (Pre-Op Clinic) [address] [place] [address] [place], [address], 06/25/2024 15:47:19 06/25/20 24 06/25/2024 CBC W/ AUTO DIFF eosinophil # 0.24 K/uL Not Available [facility] ([facility]Op [facility]) [address] [place] [address] [place], [address], 06/25/2024 15:47:19 06/25/20 24 06/25/2024 CBC W/ AUTO DIFF basophil # 0.06 K/uL Not Available [facility] ([facility]Op [facility]) [address] [place] [address] [place], [address], 06/25/2024 15:47:19 06/25/20 24 06/25/2024 CBC W/ AUTO DIFF immature gramulocytes # 0.03 K/uL Not Available [facility] ([facility]Op [facility]) [address] [place] [address] [place], [address], 06/25/2024 15:47:19 06/25/20 24 06/25/2024 CBC W/ AUTO DIFF nucleated red blood cells # 0.00 k/uL Not Available [facility] ([facility]) [address] [facility] [place], [address], 06/25/2024 15:47:19 06/25/20 24 06/25/2024 CBC W/ AUTO DIFF manual differential NO Not Available [facility] ([facility]) [address] [place] [address] [place], [address], 06/25/2024 15:47:19 06/25/20 24 06/25/2024 CBC W/ AUTO DIFF note Unles s other rey noted testi ng perfo rmed at: [facility] [address] [place] [address] Jose zamora MD Not Available [facility] ([facility]Op [facility]) [address] [place] [address] [place], [address], 06/25/2024 15:47:19 06/25/20 24 06/25/2024 COMP METAB OLIC PANEL sodium 141 mmol/ L 137-14 7 Not Available [facility] ([facility]Op [facility]) [address] [place] [address] [place], [address], 06/25/2024 17:12:06 06/25/20 24 06/25/2024 COMP METAB OLIC PANEL potassium 4.6 mmol/ L 3.5-5. 1 Not Available [facility] ([facility]Op [facility]) [address] [place] [address] [place], [address], 06/25/2024 17:12:06 06/25/20 24 06/25/2024 COMP METAB OLIC PANEL chloride 101 mmol/ L 98-110 Not Available [facility] (Pre[facility]Op [facility]) [address] [place] [address] [place], [address], 06/25/2024 17:12:06 06/25/20 24 06/25/2024 COMP METAB OLIC PANEL carbon dioxide 23 mmol/ L 21-30 Not Available [facility] ([facility]Op [facility]) [address] [facility] [place], [address], 06/25/2024 17:12:06 06/25/20 24 06/25/2024 COMP METAB OLIC PANEL anion gap 17 mmol/ L 6-14 high Not Available [facility] ([facility]) [address] [place] [address] [place], [address], 06/25/2024 17:12:06 06/25/20 24 06/25/2024 COMP METAB OLIC PANEL glucose 312 mg/dL 70-115 high Not Available [facility] ([facility]) [address] [place] [address] [place], [address], 06/25/2024 17:12:06 06/25/20 24 06/25/2024 COMP METAB OLIC PANEL BUN 28 mg/dL 9-20 high Not Available [facility] ([facility]) [address] [place] [address] [place], [address], 06/25/2024 17:12:06 06/25/20 24 06/25/2024 COMP METAB OLIC PANEL creatinine 1.1 mg/dL 0.5-1. 5 Not Available [facility] ([facility]) [address] [place] [address] [place], [address], 06/25/2024 17:12:06 06/25/20 24 06/25/2024 COMP METAB OLIC PANEL BUN/creatini ne ratio 25 ratio 10-20 high Not Available [facility] ([facility]) [address] [place] [address] [place], [address], 06/25/2024 17:12:06 06/25/20 24 06/25/2024 COMP METAB OLIC PANEL glom filtration rate 80 mL/mi n >60- Not Available [facility] ([facility]Op [facility]) [address] [place] [address] [place], [address], 06/25/2024 17:12:06 06/25/20 24 06/25/2024 COMP METAB OLIC PANEL osmolality (calculated) 310 mosmo l/kg 275-30 1 high OSMOL ALITY IS A CALCU LATIO N UTILI ZING THE SERUM /PLAS MA SODIU M, GLUCO SE AND UREA NITRO GEN (BUN) LEVEL S. FOR THE MOST ACCUR ATE RESUL T A MEASU RED SERUM OSMOL ALITY IS SUGDANDRE GUNND. Not Available [facility] ([facility]Op [facility]) [address] [place] [address] [place], [address], 06/25/2024 17:12:06 06/25/20 24 06/25/2024 COMP METAB OLIC PANEL total protein 6.9 g/dL 6.2-8. 2 Not Available [facility] ([facility]) [address] [place] [address] [place], [address], 06/25/2024 17:12:06 06/25/20 24 06/25/2024 COMP METAB OLIC PANEL albumin 4.6 g/dL 3.5-5. 0 Not Available [facility] ([facility]) [address] [place] [address] [place], [address], 06/25/2024 17:12:06 06/25/20 24 06/25/2024 COMP METAB OLIC PANEL calcium 9.5 mg/dL 8.5-10 .8 Not Available [facility] (Pre-Op [facility]) [address] [place] [address] [place], [address], 06/25/2024 17:12:06 06/25/20 24 06/25/2024 COMP METAB OLIC PANEL bilirubin total 0.5 mg/dL 0.2-1. 3 Not Available [facility] ([facility]Op [facility]) [address] [place] [address] [place], [address], 06/25/2024 17:12:06 06/25/20 24 06/25/2024 COMP METAB OLIC PANEL AST (SGOT) 36 IU/L 17-59 Not Available [facility] (Pre-Op [facility]) [address] [place] [address] [place], [address], 06/25/2024 17:12:06 06/25/20 24 06/25/2024 COMP METAB OLIC PANEL ALT (SGPT) 27 IU/L 0-50 Pleas e note new refer ence inter farrah for ALT. Due to a recen t manuf actur er metho dolog y kiel hammond, the refer ence inter farrah for ALT is lower effec tive March 18, 2021. Not Available [facility] ([facility]Op [facility]) [address] [place] [address] [place], [address], 06/25/2024 17:12:06 06/25/20 24 06/25/2024 COMP METAB OLIC PANEL alk phosphatase 107 IU/L 38-126 Not Available [facility] (Pre-Op [facility]) [address] [place] [address] [place], [address], 06/25/2024 17:12:06 06/25/20 24 06/25/2024 COMP METAB OLIC PANEL note Unles s other rey noted testi ng perfo rmed at: [facility] [address] [place] [address] Jose zamora MD Not Available [facility] ([facility]Op [facility]) [address] [place] [address] [place], [address], 06/25/2024 17:12:06 08/15/20 24 08/16/2024 COMP. METAB OLIC PANEL (14) glucose 114 mg/dL 70-99 above high normal Not Available [facility] ([facility]) [address] [place], [address], 09/04/2024 11:15:21 08/15/20 24 08/16/2024 COMP. METAB OLIC PANEL (14) BUN 30 mg/dL 6-24 above high normal Not Available [facility] ([facility]) [address] [place], [address], 09/04/2024 11:15:21 08/15/20 24 08/16/2024 COMP. METAB OLIC PANEL (14) creatinine 1.15 mg/dL 0.76-1 .27 normal Not Available [facility] ([facility]) [address] [facility], [address], 09/04/2024 11:15:21 08/15/20 24 08/16/2024 COMP. METAB OLIC PANEL (14) eGFR 76 mL/mi n/1.7 3 >59 normal Not Available [facility] ([facility]) [address] [place], [address], 09/04/2024 11:15:21 08/15/20 24 08/16/2024 COMP. METAB OLIC PANEL (14) BUN/creatini ne ratio 26 9-20 above high normal Not Available [facility] ([facility]) [address] [place], [address], 09/04/2024 11:15:21 08/15/20 24 08/16/2024 COMP. METAB OLIC PANEL (14) sodium 145 mmol/ L 134-14 4 above high normal Not Available [facility] ([facility]) [address] [place], [address], 09/04/2024 11:15:21 08/15/20 24 08/16/2024 COMP. METAB OLIC PANEL (14) potassium 4.6 mmol/ L 3.5-5. 2 normal Not Available [facility] ([facility]) [address] [place], [address], 09/04/2024 11:15:21 08/15/20 24 08/16/2024 COMP. METAB OLIC PANEL (14) chloride 105 mmol/ L 96-106 normal Not Available [facility] ([facility]) [address] [place], [address], 09/04/2024 11:15:21 08/15/20 24 08/16/2024 COMP. METAB OLIC PANEL (14) carbon dioxide, total 24 mmol/ L 20-29 normal Not Available [facility] ([facility]) [address] [place], [address], 09/04/2024 11:15:21 08/15/20 24 08/16/2024 COMP. METAB OLIC PANEL (14) calcium 9.3 mg/dL 8.7-10 .2 normal Not Available [facility] ([facility]) [address] [place] [place], [address], 09/04/2024 11:15:21 08/15/20 24 08/16/2024 COMP. METAB OLIC PANEL (14) protein, total 6.5 g/dL 6.0-8. 5 normal Not Available [facility] ([facility]) [address] [facility] [place], [address], 09/04/2024 11:15:21 08/15/20 24 08/16/2024 COMP. METAB OLIC PANEL (14) albumin 4.3 g/dL 3.8-4. 9 normal Not Available [facility] ([facility]) [address] [place], [address], 09/04/2024 11:15:21 08/15/20 24 08/16/2024 COMP. METAB OLIC PANEL (14) globulin, total 2.2 g/dL 1.5-4. 5 Not Available [facility] ([facility]) [address] [place], [address], 09/04/2024 11:15:21 08/15/20 24 08/16/2024 COMP. METAB OLIC PANEL (14) bilirubin, total 0.8 mg/dL 0.0-1. 2 normal Not Available [facility] ([facility]) [address] [facility] [place], [address], 09/04/2024 11:15:21 08/15/20 24 08/16/2024 COMP. METAB OLIC PANEL (14) alkaline phosphatase 136 IU/L 44-121 above high normal Not Available [facility] ([facility]) [address] [facility], [place], [address], 09/04/2024 11:15:21 08/15/20 24 08/16/2024 COMP. METAB OLIC PANEL (14) AST (SGOT) 25 IU/L 0-40 normal Not Available [facility] ([facility]) [address] [facility], [place], [address], 09/04/2024 11:15:21 08/15/20 24 08/16/2024 COMP. METAB OLIC PANEL (14) ALT (SGPT) 18 IU/L 0-44 normal Not Available [facility] ([facility]) [address] [place], [address], 09/04/2024 11:15:21 08/15/20 24 08/16/2024 LIPID PANEL cholesterol, total 132 mg/dL 100-19 9 normal Not Available [facility] ([facility]) [address] [place], [address], 09/04/2024 11:15:22 08/15/20 24 08/16/2024 LIPID PANEL triglyceride s 89 mg/dL 0-149 normal Not Available [facility] ([facility]) [address] [place], [address], 09/04/2024 11:15:22 08/15/20 24 08/16/2024 LIPID PANEL HDL cholesterol 49 mg/dL >39 normal Not Available [facility] ([facility] [address] [place], [address], 09/04/2024 11:15:22 08/15/20 24 08/16/2024 LIPID PANEL VLDL cholesterol arturo 17 mg/dL 5-40 Not Available [facility] ([facility]) [address] [place], [address], 09/04/2024 11:15:22 08/15/20 24 08/16/2024 LIPID PANEL LDL chol calc ([facility]) 66 mg/dL 0-99 Not Available [facility] ([facility]) [address] [facility], [place], [address], 09/04/2024 11:15:22 08/15/20 24 08/16/2024 LIPID PANEL LDL calc comment: 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 It has not been clear ed or appro caity by the Food and Drug Admin istra tion. Not Available [facility] ([facility]) [address] [facility], [place], [address], 09/04/2024 11:15:23 08/15/20 24 08/16/2024 CAMPOS+L IPASE amylase 113 U/L 31-110 above high normal Not Available [facility] ([facility]) [address] [facility], [place], [address], 09/04/2024 11:15:24 08/15/20 24 08/16/2024 CAMPOS+L IPASE lipase 24 U/L 13-78 normal Not Available [facility] ([facility]) [address] [facility], [place], [address], 09/04/2024 11:15:24 08/15/20 24 09/04/2024 7ALPH AC4 [id number] 46 NG/mL Refer ence Inter farrah: 1.8-5 7 ng/mL Serum 7Alph aC4 is a surro gate for stool bile acids . [place] jose guadalupe holley ntrat ions (> 57 [...] e becky cteri stics deter mined by [employer]. It has not been clear ed or appro caity by the Food and Drug Admin istra tion. Not Available [facility] [address] [facility], [place], [address], 09/04/2024 11:15:26 08/15/20 24 08/16/2024 HEMOG LOBIN A1C hemoglobin A1C 7.4 % 4.8-5. 6 above high normal Predi abete s: 5.7 - 6.4 Diabe siobhan: >6.4 Glyce gilma contr ol for adult s with diabe siobhan: <7.0 Not Available [facility] ([facility]) [address] [facility], [place], [address], 09/04/2024 11:15:27 08/15/20 24 08/16/2024 SEDIM ENTAT ION RATE- WESTE RGREN sedimentatio n rate-westerg lori 8 mm/HR 0-30 normal Not Available [facility] ([facility]) [address] [place], [address], 09/04/2024 11:15:28 08/15/20 24 08/17/2024 CALCI UM, IONIZ ED, SERUM calcium, ionized, serum 5.0 mg/dL 4.5-5. 6 Not Available [facility] ([facility]) [address] [facility], [place], [address], 09/04/2024 11:15:29 08/15/20 24 08/16/2024 IGG, SUBCL ASS 4 IgG, subclass 4 17 mg/dL 2-96 Not Available [facility] ([facility]) [address] [place], [address], 09/04/2024 11:15:30 08/15/20 24 08/16/2024 C-SOHA CTIVE PROTE IN, QUANT C-reactive protein, quant 32 mg/L 0-10 above high normal Not Available [facility] ([facility]) [address] [place], [address], 09/04/2024 11:15:31 08/15/20 24 08/16/2024 SPECI MEN STATU S REPOR T specimen status report TNP Test not perfo rmed. No stool speci men recei caity. TEST: 03694 [id number] Calpr otect in, Fecal 09670 6 Fecal Fat,Q l (Rfx- Qt) Stool [id number] 4 H. pylor i Stool Ag, EIA [id number] 3 Ova + Dennis ite Exam [id number] 4 Pancr eatic Elast ase, Fecal Not Available [facility] ([facility]) [address] [place], [address], 09/04/2024 11:15:32 08/19/20 24 08/22/2024 GI PROFI LE, STOOL , PCR campylobacte r Not Detect ed not detect ed Not Available [facility] ([facility]) [address] [place], [address], 08/22/2024 16:14:29 08/19/20 24 08/22/2024 GI PROFI LE, STOOL , PCR C difficile toxin A/B Detect ed not detect ed abnormal Not Available [facility] ([facility]) [address] [place], [address], 08/22/2024 16:14:29 08/19/20 24 08/22/2024 GI PROFI LE, STOOL , PCR plesiomonas shigelloides Not Detect ed not detect ed Not Available [facility] ([facility]) [address] [place], [address], 08/22/2024 16:14:29 08/19/20 24 08/22/2024 GI PROFI LE, STOOL , PCR salmonella Not Detect ed not detect ed Not Available [facility] ([facility]) [address] [place], [address], 08/22/2024 16:14:29 08/19/20 24 08/22/2024 GI PROFI LE, STOOL , PCR vibrio Not Detect ed not detect ed Not Available [facility] ([facility]) [address] [place], [address], 08/22/2024 16:14:29 08/19/20 24 08/22/2024 GI PROFI LE, STOOL , PCR vibrio cholerae Not Detect ed not detect ed Not Available [facility] ([facility]) [address] [place], [address], 08/22/2024 16:14:29 08/19/20 24 08/22/2024 GI PROFI LE, STOOL , PCR yersinia enterocoliti ca Not Detect ed not detect ed Not Available [facility] ([facility]) [address] [place], [address], 08/22/2024 16:14:29 08/19/20 24 08/22/2024 GI PROFI LE, STOOL , PCR enteroaggreg ative E coli Not Detect ed not detect ed Not Available [facility] ([facility]) [address] [place], [address], 08/22/2024 16:14:29 08/19/20 24 08/22/2024 GI PROFI LE, STOOL , PCR enteropathog enic E coli Not Detect ed not detect ed Not Available [facility] ([facility]) [address] [place], [address], 08/22/2024 16:14:29 08/19/20 24 08/22/2024 GI PROFI LE, STOOL , PCR enterotoxige gabe E coli Not Detect ed not detect ed Not Available [facility] ([facility]) [address] [place], [address], 08/22/2024 16:14:29 08/19/20 24 08/22/2024 GI PROFI LE, STOOL , PCR shiga-toxin- producing E coli Not Detect ed not detect ed Not Available [facility] ([facility]) [address] [place], [address], 08/22/2024 16:14:29 08/19/20 24 08/22/2024 GI PROFI LE, STOOL , PCR E coli O157 Not applic able not detect ed Not Available [facility] [facility] [address] [place], [address], 08/22/2024 16:14:29 08/19/20 24 08/22/2024 GI PROFI LE, STOOL , PCR shigella/ent eroinvasive E coli Not Detect ed not detect ed Not Available [facility] ([facility]) [address] [place], [address], 08/22/2024 16:14:29 08/19/20 24 08/22/2024 GI PROFI LE, STOOL , PCR cryptosporid ium Not Detect ed not detect ed Not Available [facility] ([facility]) [address] [place], [address], 08/22/2024 16:14:29 08/19/20 24 08/22/2024 GI PROFI LE, STOOL , PCR cyclospora cayetanensis Not Detect ed not detect ed Not Available [facility] ([facility]) [address] [place], [address], 08/22/2024 16:14:29 08/19/20 24 08/22/2024 GI PROFI LE, STOOL , PCR entamoeba histolytica Not Detect ed not detect ed Not Available [facility] ([facility]) [address] [place], [address], 08/22/2024 16:14:29 08/19/20 24 08/22/2024 GI PROFI LE, STOOL , PCR giardia lamblia Not Detect ed not detect ed Not Available [facility] ([facility]) [address] [place], [address], 08/22/2024 16:14:29 08/19/20 24 08/22/2024 GI PROFI LE, STOOL , PCR adenovirus F 40/41 Not Detect ed not detect ed Not Available [facility] ([facility]) [address] [facility], [place], [address], 08/22/2024 16:14:29 08/19/20 24 08/22/2024 GI PROFI LE, STOOL , PCR astrovirus Not Detect ed not detect ed Not Available [facility] ([facility]) [address] [facility], [place], [address], 08/22/2024 16:14:29 08/19/20 24 08/22/2024 GI PROFI LE, STOOL , PCR norovirus GI/gii Detect ed not detect ed abnormal Not Available [facility] ([facility]) [address] [facility], [place], [address], 08/22/2024 16:14:29 08/19/20 24 08/22/2024 GI PROFI LE, STOOL , PCR rotavirus A Not Detect ed not detect ed Not Available [facility] ([facility]) [address] [facility], [place], [address], 08/22/2024 16:14:29 08/19/20 24 08/22/2024 GI PROFI LE, STOOL , PCR sapovirus Not Detect ed not detect ed Not Available [facility] ([facility]) [address] [facility], [place], [address], 08/22/2024 16:14:29 08/19/20 24 08/20/2024 JACQUELINE EN AUTHO RIZAT ION written authorizatio n Commen t Jacqueline en Autho rizat ion Recei caity. Autho rizat ion recei caity from ORIGI NAL ORDER 08-20 Logge d by Roseanne fuentes Not Available [facility] ([facility]) [address] [facility], [place], [address], 08/22/2024 16:14:30 08/19/20 24 08/22/2024 FECAL FAT,Q L (RFX- QT) STOOL fats, neutral NORMAL Sandee l (<60 Dropl ets/H PF) Not Available [facility] ([facility]) [address] [facility], [place], [address], 08/29/2024 07:16:55 08/19/20 24 08/22/2024 FECAL FAT,Q L (RFX- QT) STOOL fats, total NORMAL Sandee l (<100 Dropl ets/H PF) Not Available [facility] ([facility]) [address] [place], [address], 08/29/2024 07:16:55 08/19/20 24 08/21/2024 CALPR OTECT IN, FECAL calprotectin , fecal 54 ug/g 0-120 Holley ntrat ion Inter preta tion Follo w-Up < 5 - 50 ug/g Sandee l None >50 -120 ug/g Borde rline Re-ev aluat e in 4-6 weeks >120 ug/g Abnor mal Repea t as clini roni indic ated Not Available [facility] ([facility]) [address] [facility], [place], [address], 08/29/2024 07:16:57 08/19/20 24 08/21/2024 PANCR EATIC ELAST ASE, FECAL pancreatic elastase, fecal >800 ug_el ast./ g >200 Sever e Pancr eatic Insuf ficie ncy: <100 Moder ate Pancr eatic Insuf ficie ncy: 100 - 200 Sandee l: >200 Not Available [facility] ([facility]) [address] [facility], [place], [address], 08/29/2024 07:16:58 08/19/20 24 08/28/2024 OVA + DENNIS ITE EXAM ova + parasite exam FINAL REPORT These resul ts were obtai hanh using wet prepa ratio n(s) and trich oliver stain ed smear . This test does not inclu de testi ng for Crypt ospor idium parvu m, Cyclo spora , or Micro spori tracy. Not Available [facility] ([facility]) [address] [facility], [place], [address], 08/29/2024 07:16:59 08/19/20 24 08/28/2024 OVA + DENNIS ITE EXAM result 1 COMMEN T No ova, cysts , or dennis ites seen. One negat farnaz speci men does not rule out the possi bilit y of a dennis itic infec tion. Not Available [facility] ([facility]) [address] [facility], [place], [address], 08/29/2024 07:16:59 09/25/2009/25/2024 GASTR OINTE ELISABET L PANEL ,STL PCR campylobacte r NOT DETECT ED not detect ed CAMPY LOBAC TER AND CRYPT OSPOR IDIUM RESUL TS WILL BE CONFI RMED BEFOR E FINAL RESUL TS REPOR JOSE GUADALUPE. Not Available [facility] ([facility]) [address], [place], [address], 09/25/2024 15:27:36 09/25/20 24 09/25/2024 GASTR OINTE ELISABET L PANEL ,STL PCR C difficile toxin A/B DETECT ED not detect ed delta Not Available [facility] ([facility]) [address], [place], [address], 09/25/2024 15:27:36 09/25/20 24 09/25/2024 GASTR OINTE ELISABET L PANEL ,STL PCR plesiomonas shigelloides NOT DETECT ED not detect ed Not Available [facility] ([facility]) [address] [facility], [place], [address], 09/25/2024 15:27:36 09/25/20 24 09/25/2024 GASTR OINTE ELISABET L PANEL ,STL PCR salmonella NOT DETECT ED not detect ed Not Available [facility] ([facility]) [address], [place], [address], 09/25/2024 15:27:36 09/25/20 24 09/25/2024 GASTR OINTE ELISABET L PANEL ,STL PCR vibrio NOT DETECT ED not detect ed Not Available [facility] ([facility]) [address], [place], [address], 09/25/2024 15:27:36 09/25/20 24 09/25/2024 GASTR OINTE ELISABET L PANEL ,STL PCR vibrio cholerae NOT DETECT ED not detect ed Not Available [facility] ([facility]) [address], [place], [address], 09/25/2024 15:27:36 09/25/20 24 09/25/2024 GASTR OINTE ELISABET L PANEL ,STL PCR yersinia enterocoliti ca NOT DETECT ED not detect ed Not Available [facility] ([facility]) [address] [facility], [place], [address], 09/25/2024 15:27:36 09/25/20 24 09/25/2024 GASTR OINTE ELISABET L PANEL ,STL PCR enteroaggreg ative E coli NOT DETECT ED not detect ed Not Available [facility] ([facility]) [address] [facility] [address] [facility], [place], [address], 09/25/2024 15:27:36 09/25/20 24 09/25/2024 GASTR OINTE ELISABET L PANEL ,STL PCR enteropathog enic E coli NOT DETECT ED not detect ed Not Available [facility] ([facility]) [address] [facility] [address] [facility], [place], [address], 09/25/2024 15:27:36 09/25/20 24 09/25/2024 GASTR OINTE ELISABET L PANEL ,STL PCR enterotoxige gabe E coli lt/st NOT DETECT ED not detect ed Not Available [facility] ([facility]) [address] [facility], [place], [address], 09/25/2024 15:27:36 09/25/20 24 09/25/2024 GASTR OINTE ELISABET L PANEL ,STL PCR shiga-toxin- producing E coli NOT DETECT ED not detect ed Not Available [facility] ([facility]) [address] [facility], [place], [address], 09/25/2024 15:27:36 09/25/20 24 09/25/2024 GASTR OINTE ELISABET L PANEL ,STL PCR E coli O157 N/A not detect ed Not Available [facility] ([facility]) [address] [facility], [place], [address], 09/25/2024 15:27:36 09/25/20 24 09/25/2024 GASTR OINTE ELISABET L PANEL ,STL PCR shigella/ent eroinvasive E coli NOT DETECT ED not detect ed Not Available [facility] ([facility]) [address] [facility] [address] [facility], [place], [address], 09/25/2024 15:27:36 09/25/20 24 09/25/2024 GASTR OINTE ELISABET L PANEL ,STL PCR cryptosporid ium NOT DETECT ED not detect ed Not Available [facility] ([facility]) [address] [facility], [place], [address], 09/25/2024 15:27:36 09/25/20 24 09/25/2024 GASTR OINTE ELISABET L PANEL ,STL PCR cyclospora cayetanensis NOT DETECT ED not detect ed Not Available [facility] ([facility]) [address], [place], [address], 09/25/2024 15:27:36 09/25/20 24 09/25/2024 GASTR OINTE ELISABET L PANEL ,STL PCR entamoeba histolytica NOT DETECT ED not detect ed Not Available [facility] ([facility]) [address] [facility], [place], [address], 09/25/2024 15:27:36 09/25/20 24 09/25/2024 GASTR OINTE ELISABET L PANEL ,STL PCR giardia lamblia NOT DETECT ED not detect ed Not Available [facility] ([facility]) [address] [facility], [place], [address], 09/25/2024 15:27:36 09/25/20 24 09/25/2024 GASTR OINTE ELISABET L PANEL ,STL PCR adenovirus F 40/41 NOT DETECT ED not detect ed Not Available [facility] ([facility]) [address], [place], [address], 09/25/2024 15:27:36 09/25/20 24 09/25/2024 GASTR OINTE ELISABET L PANEL ,STL PCR astrovirus NOT DETECT ED not detect ed Not Available [facility] ([facility]) [address] [facility] [address] [facility], [place], [address], 09/25/2024 15:27:36 09/25/20 24 09/25/2024 GASTR OINTE ELISABET L PANEL ,STL PCR norovirus GI/gii NOT DETECT ED not detect ed Not Available [facility] ([facility]) [address] [facility] [address], [place], [address], 09/25/2024 15:27:36 09/25/20 24 09/25/2024 GASTR OINTE ELISABET L PANEL ,STL PCR rotavirus A NOT DETECT ED not detect ed Not Available [facility] ([facility]) [address], [place], [address], 09/25/2024 15:27:36 09/25/20 24 09/25/2024 GASTR OINTE [...] rever se trans cript ase Not Available [facility] ([facility]) [address], [place], [address], 09/25/2024 15:27:36 09/25/20 24 09/25/2024 C DIFFI CILE TOX/A G SCREE N specimen consistency LIQUID STOOL Not Available [facility] ([facility]) [address], [place], [address], 09/25/2024 15:28:43 09/25/20 24 09/25/2024 C DIFFI [...] cytes or PCR testi ng. Not Available [facility] ([facility]) [address], [place], [address], 09/25/2024 15:28:43 09/25/20 24 09/25/2024 C DIFFI CILE TOX/A G SCREE N C.difficile antigen NEGATI VE negati ve Not Available [facility] ([facility]) [address], [place], [address], 09/25/2024 15:28:43 09/25/20 24 09/25/2024 C DIFFI CILE TOX/A G SCREE N C diff internal control PASS PASS Not Available [facility] ([facility]) [address], [place], [address], 09/25/2024 15:28:43 09/25/20 24 10/03/2024 PATHO LOGY SPECI MEN pathology specimen SEE JEROME Castillo RPT Not Available [facility] ([facility]) [address], [place], [address], 10/03/2024 09:18:07 Result Notes None recorded. Problems Name Problem SNOMED Code Status Onset Date Resolution Date Notes Provider Name and Address Organization Details Recorded Time Allergic rhinitis 27706285 Active 2016 Allergic rhinitis Not Available [facility] 3 08:18:40 Dyspnea 732147823 Active 2016 Not Available [facility] 08:18:40 Cough 20458231 Active 2016 Cough Not Available [facility] 3 08:18:40 Chronic constipat ion with overflow 58898835 Active 2016 Overflow diarrhea Not Available [facility] 3 08:18:40 Cervical spondylos is without myelopath y 374050122 Active 2020 Not Available [facility] 3 08:18:40 Heartburn 61962183 Active 2017 Heartburn Not Available [facility] 3 08:18:40 Restricti ve lung disease 24286836 Active 2016 Not Available [facility] 3 08:18:40 Cerebrova scular accident 219969339 Active 2014 Stroke Not Available [facility] 3 08:18:40 Finding reported by subject or history provider 390375857 Active 2014 Not Available [facility] 3 08:18:40 Paresthes ia 95274698 Active 2020 Not Available [facility] 3 08:18:40 Abdominal pain 31717986 Active 2017 Abdominal pain Not Available [facility] 3 08:18:40 Gastroeso phageal reflux disease 527146583 Active 2016 Gastroeso phageal reflux disease Not Available [facility] 3 08:18:40 Irritable bowel syndrome 51127833 Active 2017 Irritable bowel syndrome Not Available [facility] 3 08:18:40 Asthma 885508110 Active 2016 Asthma Not Available [facility] 3 08:18:40 Diarrhea 89747449 Active 2016 Diarrhea Not Available [facility] 3 08:18:40 Constipat ion 89867356 Active 2016 Constipat ion Not Available [facility] 3 08:18:40 Neuralgia 98015376 Active 2022 Georgina Marshall DO [address] , [place], [address] , [place] - [facility] - [place] [facility] [place] 3 08:49:54 Left foot drop 19490985291 9105 Active 2022 Georgina Marshall DO [address], [place], [address] , [place] [facility] [place] [facility] [place] 3 08:49:58 Forgetful 76635546 Active 2022 Georgina Marshall DO [address], [place], [address] , [place] - [facility] & [place] 3 11:24:50 Irritable bowel syndrome with diarrhea 628808293 Active 2022 Earlene Kamara NP [address], [address], [place], [address] , [place] [facility] [place] [facility] [place] 15:53:25 Essential tremor 615826361 Active 2023 Georgina Marshall DO [address], [place], [address] , [place] [facility] [place] 09:58:42 Problem Notes None recorded. Procedures Surgical History Date Name Laterality Status Provider Name and Address Organization Details Recorded Time 01/14/20 25 lumbar spinal fusion completed Khushi Kapoor [place] [facility] [facility] [place] [facility] [place] 01/14/2025 13:17:57 08/15/20 24 Procedure Note completed Khushi Mariedwell [place] [facility] [place] 08/15/2024 11:59:29 11/27/19 24 Cardiovascular Surgery completed Prema Dominguez [place] - [facility] [facility] [place] 06/25/2024 13:58:00 07/07/20 23 placement of stent in coronary artery completed Earlene Kamara NP [address], [address], [place], [address], [place] [facility] & [place] 07/13/2023 16:02:11 11/27/19 23 Cardiovascular Surgery completed Prema ERAZO - [facility] - [facility] & [place] 06/25/2024 13:58:00 06/27/20 17 colonoscopy completed DO [address], [place], [address], [place] [facility] [place] 01/23/2023 08:43:26 08/27/20 16 operation on lumbar spine completed DO [address], [place], [address], [place] [facility] & [place] 01/23/2023 08:44:23 09/27/20 14 herniotomy of bilateral inguinal hernias completed DO [address], [place], [address], [place] [facility] & [place] 01/23/2023 08:42:59 02/26/20 14 placement of stent in coronary artery completed Georgina Marshall DO [address], [place], [address], [facility] - [facility] & [place] 01/23/2023 08:43:13 11/27/19 14 Back Surgery completed Prema Dominguez [place] - [facility] & [place] 06/25/2024 13:43:45 11/27/19 13 Cholecystectomy completed Georgina Marshall DO [address], [place], [address], [facility] - [facility] & [place] 01/23/2023 08:42:23 11/27/19 12 arthroplasty of knee completed DO [address], [place], [address], [place] - [facility] & [place] 01/23/2023 08:42:13 11/27/19 10 Elbow arthroscopy completed DO Kann[address], [place], [address], [place] - [facility] & [place] 01/23/2023 08:42:40 EGD/Endoscopy completed Earlene Kamara NP [address] [place] [address], [address], [place], [address], [facility] - [facility] & [place] 07/13/2023 16:02:36 Imaging Results None recorded. Procedure Notes None recorded. Medical Equipment None Reported. Allergies Allergen ID Allergen Name Allergen Category Reaction Reaction Severity Criticality Documentation Date Start Date Code Code System Note Provider Name and Address Organization Details Recorded Time 95263 Penicilli n Not available Not available Not available Not available 08/29/2022 08523 RxNorm React ion: Unkno wn, sever ity: Unkno wn Not Available [facility] 02:56:23 96182 Product containin g penicilli n (product) medicatio n Not available Not available Not available 01/23/2023 85636 8001 SNOMED Agnes jansen, [place] - [facility] & [place] 10:57:42 Medications Name Sig Start Date Stop [...] Available Not Available Not Available [employer] 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 01/23 completed Not [...] Last Updated DateTime 187.96 cm 30.2 kg/m2 247528. 57 g 98 % 98 % 98.1 [degF] 69 /min 72 /min 107 mm[Hg] 65 mm[Hg] Khushi Kapoor [place] - [place] [facility] & [place] 5 13:17:21 Date Recorded Body height Body mass index (BMI) Body weight Systolic blood pressure Diastolic blood pressure Provider Name and Address Organization Details Last Updated DateTime 03/01/2024 187.96 cm 29.9 kg/m2 084921.0 2 g 128 mm[Hg] 78 mm[Hg] Agnes Holman [facility] & [place] 4 09:40:37 Date Recorded Body height Body mass index (BMI) Body weight Body temperature Oxygen saturation Oxygen saturation in Arterial blood by Pulse oximetry Heart rate Provider Name and Address Organization Details Last Updated DateTime 4 187.96 cm 29.9 kg/m2 047788. 02 g 97.4 [degF] 97 % 97 % 76 /min Prema Dominguez [facility] & [place] 4 13:57:45 Date Recorded Body height Body mass index (BMI) Body weight Body temperature Oxygen saturation Oxygen saturation in Arterial blood by Pulse oximetry Heart rate Heart rate Systolic blood pressure Diastolic blood pressure Provider Name and Address Organization Details Last Updated DateTime 4 187.96 cm 31.3 kg/m2 368531. 38 g 98.4 [degF] 99 % 99 % 63 /min 68 /min 181 mm[Hg] 97 mm[Hg] Ralph Maya [facility] & [place] 4 10:20:26 Date Recorded Body height Body mass index (BMI) Body weight Heart rate Heart rate Oxygen saturation Oxygen saturation in Arterial blood by Pulse oximetry Body temperature Systolic blood pressure Diastolic blood pressure Provider Name and Address Organization Details Last Updated DateTime 4 187.96 cm 31.2 kg/m2 170358. 02 g 64 /min 66 /min 97 % 97 % 97.9 [degF] 105 mm[Hg] 66 mm[Hg] Khushi Kapoor [facility] & [place] 4 14:07:03 Social History Question Answer Notes LastModified by Organizat ion Details LastModified Time Tobacco Smoking Status Former Smoker Not Available [facility] 01/12/2023 08:18:40 Do You Have An Advance Directive? No [email or web address] Information not available 06/25/2024 Are You Blind Or Do You Have Difficulty Seeing? No [email or web address] Information not available 06/25/2024 What Is Your Level Of Caffeine Consumption? Occasional 2 Cups Coffee [email or web address] Information not available 01/23/2023 When Did You Quit Smoking? 16+yearssincel luz [email or web address] Information not available 01/23/2023 What Was The Date Of Your Most Recent Tobacco Screening? 07/09/2023 Information not available 06/25/2024 Do You Have Any Pets? No Information not available 01/23/2023 What Is Your Relationship Status? Lives With Spouse, House Information not available 01/23/2023 Are You Sexually Active? Yes Information not available 01/23/2023 At What Age Did You Start Smoking Tobacco? 17 Information not available 01/23/2023 Are You Currently In School? No Some College Information not available 01/23/2023 Sex: Unknown Functional Status Question Answer Note LastModified by Organizat ion Details LastModified Time Do you use any illicit or recreational drugs? No [email or web address] Information not available 01/23/2023 Do you or have you ever used any other forms of tobacco or nicotine? No [email or web address] Information not available 08/15/2024 What is your level of alcohol consumption? Occasional [email or web address] Information not available 06/25/2024 Do you or have you ever used smokeless tobacco? 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 No drives Information not available 01/23/2023 Are you able to care for yourself? Yes Information not available 01/23/2023 What is your exercise level? Occasional Information not available 06/25/2024 Mental Status Question Answer Note LastModified by Organization D etails LastModified Time Do you feel stressed (tense, restless, nervous, or anxious, or unable to sleep at night)? [id number] Information not available 06/25/2024 Family History Relationship Description Onset Age of this Age Resolved Age Notes LastModified by Organization Details LastModified Time Mother Diabetes mellitus [email or web address] Not available 2024 12:55:05 Mother Hypertensive disorder [email or web address] Not available 2022 08:40:08 Mother Kidney disease [email or web address] Not available 2022 08:40:17 Mother Headache [email or web address] Not availabl e 01/23/2023 08:40:26 Father Diabetes [...] Hyperlipidemia Y Back Problems Y Migraines Y Depression Y GI Problems Y TIA Y High Cholesterol Y Spine Problems Y Psychiatric/Mental Health Condition Y Heart Disease Y Headaches Y Obstructive Sleep Apnea Y Hypertension Y Neurological Problems Y Past Encounters Encounter ID Performer Location Encounter Start Date Encounter Closed Date Diagnosis/Indication Diagnosis SNOMED-CT Code Diagnosis ICD10 Code Diagnosis Note [id number] Georgina Marshall DO [facility] [address] [place] [address] 01/23/2023 10:25:40 01/23/2023 11:28:47 Cervical spondylosis without myelopathy 269376819 M47.812 Chronic condition that is stable. Continue with gabapentin at the current dose. He does not need refills today. Neuralgia 09677063 M79.2 Chronic condition that is stable. Continue with gabapentin at the current dose. Left foot drop 430470706 1 31006 M21.372 Chronic condition that is stable. No current therapy or equipment needs. Forgetful 64549615 R41.3 New issue with increased lack of focus and concentrat ion. He has poor sleep which I suspect is a major factor. Will check labs today. If normal consider increasing his gabapentin dose to 800mg qhs to see if that will afford him a more restful night. [id number] Earlene Kamara NP [address] [address] 07/12/2023 14:21:48 07/17/2023 12:16:12 Heartburn 60704910 R12 Occasional symptoms at this time. Diarrhea 96502296 R19.7 Several month history of worsening diarrhea [...] history, consider colonoscop y in 1 year. [id number] Geogrina Marshall DO [facility] [address] [place] [address] 03/01/2024 09:36:06 03/01/2024 10:04:03 Cervical spondylosis without myelopathy 660377502 M47.812 Chronic condition that is stable. Continue with gabapentin at the current dose. He does need refills today. Neuralgia 78752245 M79.2 Chronic condition that is stable. Continue with gabapentin at the current dose. He does need refills today. Left foot drop 843817320 1 07763 M21.372 Chronic condition that is stable. No current therapy or equipment needs. Essential tremor 7773058 09 G25.0 New tremor in the last year. 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 He does find this socially embarrassi ng. We discussed primidone and propranolo l options. He was most comfortabl e with primidone. He is educated on how to take this medication and potential side effects. Will start a low dose and he will call with an update. [id number] LIVE [facility] [address] [place] [address] [address] [place] [address] 06/25/2024 13:01:20 06/25/2024 14:24:50 Pancreatitis [id number] K85.90 patient developed acute left flank pain about a week after he had a heart stent placed in April. He was seen in the ED and [place] at which time he had elevated lipase [...] develop fever or worsening abdominal pain, n/v. 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 History of cholecystectomy 568365458 Z90.49 Screening for malignant neoplasm of colon 344114578 Z12.11 [id number] QUIANA MART Therapeuvic ic Intervent ions at [address] [place] [address] 09/10/2024 12:22:30 09/10/2024 15:49:54 [id number] AMINTA BARRETT NP [facility] [address] [address] 11/05/2024 13:48:49 11/05/2024 15:15:24 Chronic pancreatitis 098267847 K86.1 Diarrhea 14344854 R19.7 Bile acid malabsorption syndrome 04737552 E78.70 History of cholecystectomy 714121225 Z90.49 Screening for malignant neoplasm of colon 587916930 Z12.11 Nausea 682339243 R11.0 History of Intestinal infection caused by Clostridioides difficile 0154748162 36801 Z86.19 Reactive gastropathy 399 013359 K31.9 [id number] AMINTA BARRETT NP [facility] [address] [facility] [address] [facility] [place] [address] 01/14/2025 12:51:20 01/14/2025 14:01:20 Chronic pancreatitis 872805565 K86.1 Diarrhea 40081783 R19.7 Bile acid malabsorption syndrome 02314277 E78.70 History of cholecystectomy 886635106 Z90.49 Screening for malignant neoplasm of colon 441302112 Z12.11 Nausea 045493775 R11.0 History of Intestinal infection caused by Clostridioides difficile 0238408171 69836 Z86.19 Reactive gastropathy 399 091571 K31.9 Epigastric pain 45289064 R10.13 Health Concerns Section Related Observation LastModified by Organization Detai ls LastModified Time None Recorded Concern Status LastModified by Organization Details LastModified Time None Recorded Advance Directives Directive N: Payers Insurance Date Sequence Insurance Name Policy Number Policy Cohen Covered Member ID Cohen Member ID Guarantor Name 04/04/2025 1 [place] (MEDICAID [place]PLACEMENT - HMO) Jonathan Delgado [id number] Jonathan Delgado 03/04/2024 2 [place] [id number] Jonathan Delgado [id number] Jonathan Delgado 06/25/2024 1 [employer] ([place]) [id number] Jonathan Delgado [id number] Jonathan Delgado 11/05/2024 1 [place] [id number] Jonathan Delgado [id number] Jonathan Delgado 01/14/2025 1 [place] [id number] Jonathan Delgado [id number] Jonathan Delgado Notes Date Note Type Note [...] long. No racing thoughts reported. Georgina Marshall, [address], [place], [address], [place] & [place] 03/01/2024 10:22:18 06/25/2024 text/html This is a [...] try to obtain records from. Aure Soliman [address], [address], [place], [address], [place] & [place] 06/26/2024 12:50:04 08/15/2024 text/html CURRENT (08/15/20 24 VBam Barrett):Mr. Delgado is a 53 year old man referred to use by Quyen Elizabeth APRN for acute pancreatitis. Patient developed acute left flank pain after cardiac catheterization and was seen in the ED at [facility]. CT scan reportedly showed acute pancreatitis with [...] beverages and improve his diet. AMINTA BARRETT, DEPARTMENT OPERATIONS MANAGER [address], [place], [address], [place] & [place] 08/15/2024 14:51:19 11/05/2024 text/html PREVIOUS ( 024 Margarita Barrett):Mr. Delgado is a 53 year old man referred to use by Quyen Elizabeth APRN for acute pancreatitis. Patient developed acute left flank pain after cardiac catheterization and was seen in the ED at [facility]. CT scan reportedly showed acute pancreatitis with [...] continuous nausea. 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 Denies any weight loss, fevers or bloody stool. AMINTA BARRETT, DEPARTMENT OPERATIONS MANAGER [address] [facility], [place], [address], [place] & [place] 11/05/2024 15:41:48 01/14/2025 text/html PREVIOUS ( 024 Margarita Barrett):Mr. Delgado is a 53 year old man referred to use by Quyen Elizabeth APRN for acute pancreatitis. Patient developed acute left flank pain after cardiac catheterization and was seen in the ED at [facility]. CT scan reportedly showed acute pancreatitis with [...] continuous nausea. 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 Denies any weight loss, fevers or bloody [...] Denies any new GI symptoms. AMINTA BARRETT, DEPARTMENT OPERATIONS MANAGER [address], [place], [address], [facility] - [place] - [place] & [place] 01/14/2025 21:54:23
--- OUTSIDE RECORDS SUMMARY | 2025-05-03 09:52 | XMS_ITS | Clinical Summary ---
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) L97.522 (ICD-10-CM ) 01/21 Inactive 01/21 Treva W Non-pressure chronic ulcer of other part of [...] fat layer exposed Coronary artery disease (CAD) 34546574 (SNOMED CT) 01/21 Active 01/21 Georgina Ruth Coronary arteriosclerosis DM II with diabetic peripheral neuropathy 38164992 (SNOMED CT) 01/21 Active 01/21 Georgina Ruth Type 2 diabetes mellitus Benign Essential Hypertension 8541188 (SNOMED CT) 01/21 Active 01/21 Georgina Ruth Benign essential hypertension Wound infection/Ce llulitis of left foot L03.116 (ICD-10-CM ) 01/21 Active 01/21 Treva W Cellulitis of left lower limb MSSA infection 202664748 (SNOMED CT) 01/21 Active 01/21 Treva W Infection by methicillin sensitive Staphylococcus aureus Medications Medication Instructions Start Date Stop Date Generic Name ND Provider KEFLEX 500 MG ORAL CAPSULE one po qid CEPHALEXIN 64242728045 Radha Tucker APRN CEFTRIAXONE SODIUM 2 GM SOLR Rocephin 2GM IV Q24hrs - INPAT CEFTRIAXONE SODIUM 97341457460 Silvia Trujillo RN CEPHALEXIN 500 MG CAPS Take 1 by mouth 4 times a day CEPHALEXIN 59301427023 Adryan Skaggs MD CEFTRIAXONE SODIUM 2 GM SOLR Rocephin 2GM IV Q24hrs - INPAT CEFTRIAXONE SODIUM 38802703933 Yuni Christine SERTRALINE HCL 100 MG TABS 2 tablets daily SERTRALINE HCL 81142654376 Macarena Maria PRILOSEC OTC 20 MG TBEC Take 1 tablet by mouth daily OMEPRAZOLE MAGNESIUM 58649813306 Macarena Maria OXYCODONE HCL 5 MG TABS Take one (1) tablet by mouth four times a day as needed OXYCODONE HCL 67272429053 Macarena Maria NOVOLOG 100 UNIT/ML SUBCUTANEOUS SOLUTION INSULIN ASPART 63475940453 Macarena Maria LIPITOR 40 MG TABS Take 1 tablet by mouth daily ATORVASTATIN CALCIUM 94686424273 Macarena Maria LANTUS 100 UNIT/ML SOLN INSULIN GLARGINE 52209323496 Macarena Maria JARDIANCE 25 MG TABS Take 1 tablet by mouth daily in the AM EMPAGLIFLOZIN 05733750914 Macarena Maria ADULT ASPIRIN REGIMEN 81 MG ORAL TABLET DELAYED RELEASE Take 1 tablet by mouth daily ASPIRIN 23002749907 Macarena Maria Medications Administered No information available. Allergies, Adverse Reactions, Alerts Allergy Name Reaction Description Start Date Severity Statu s Provider PENICILLIN G POTASSIUM Moderate Active Lynsey K Results Date Name Value Unit Range Flag [...] Weight Measured 241 [lb_av] weight E& M Weight Measured 241 [lb_av] weight E& M Height 74 [in_us] height E&M Immunizations No information available. Advance Directives Directive Description Start Date NO LIVING WILL
--- OUTSIDE RECORDS SUMMARY | 2025-05-03 09:52 | XMS_ITS | Encounter Summary ---
Author Organization [employer] Address [address] [place] [address] Care Team Providers Care Washer Machine Name Role Phone Unavailable Primary Care Provider Unavailabl e Encounter Details Date Type Department Care Team (Late st Contact Info) Description 01/21/2020 Transcribed Document [facility] Family Medicine [address] [place] [address] ProviderLora MD [address] [place], [place] [id number] Social History Tobacco Use Types Packs/Day Years Used Date Smoking Tobacco: Never Assessed Sex and Gender Information Value Date Recorded Sex Assigned at Not on file Legal Sex Male 5:25 PM CDT Gender Identity Not on file Sexual Orientation Not on file documented as of this encounter Miscellaneous Notes * Cerner Conversion Note - Historical ProviderMD - 01/21/2020 10:45 AM BLUEPRINTING MACHINE OPERATOR UM Authorization Entered On: 01/21/2020 10:45 EST Performed On: 01/21/2020 10:45 EST by JOAQUIN PETTY RN Primary Insurance Authorization Authorization and Policy Numbers : Insurance 1 Health Plan: [facility] Policy Number: [id number] Authorization Number: [facility]: [id number] Authorization Status-Primary : Admit approved Reference Number-Primary : [id number] Number of Days Authorized-Primary : 1 Day(s) Authorized Service Begin Date-Primary : 01/18/2020 EST Authorized Service End Date-Primary : 01/19/2020 EST Authorization Comments-Primary : 2 days los approved, nrd 01/20, clinicals faxed via [email or web address] for C/S Historical Authorization Comments-Primary : Comment 1: Submitted Inpt Auth on Availity with clinicals attached. (HORACIO REGALADO, Rn-Utilization Review 01/19/2020 15:14) JOAQUIN PETTY, MALU - 01/21/2020 10:45 EST Electronically signed by Stefanie, [facility] Conversion Garment Sewing Machine Operator Cerner at 03/17/2023 9:23 AM CDT documented in this encounter Plan of Treatment Not on file documented as of this encounter Visit Diagnoses Not on filedocumented in this encounter
--- OUTSIDE RECORDS SUMMARY | 2025-05-03 09:52 | XMS_ITS | Encounter Summary ---
Author Organization [employer] Address [address] [place] [address] Care Team Providers Care Sales Recruiter Name Role Phone Unavailable Primary Care Provider Unavailabl e Encounter Details Date Type Department Care Team (Late st Contact Info) Description 01/18/2020 Transcribed Document [facility] Family Medicine [facility] [place] [address] ProviderLora MD [address] [place], [place] [id number] Social History Tobacco Use Types Packs/Day Years Used Date Smoking Tobacco: Never Assessed Sex and Gender Information Value Date Recorded Sex Assigned at Not on file Legal Sex Male 5:25 PM CDT Gender Identity Not on file Sexual Orientation Not on file documented as of this encounter Miscellaneous Notes * Cerner Conversion Note - Historical ProviderMD - 01/18/2020 5:50 PM CORN CROP SUPERVISOR Pain Assessment Entered On: 01/21/2020 5:08 EST Performed On: 01/20/2020 19:37 EST by Rama Yeung RN Intervention Information: oxyCODONE Performed by Melissa Peres RN on 01/20/2020 18:37:00 EST oxyCODONE,5mg Oral,Pain (Severe 7-10) Pain Assessment Pain Assessment : Follow-up assessment Pain Scale Goal : 5 Pain Scale Used : 0-10 Scale Rama Yeung RN - 01/21/2020 5:08 EST Pain Scale Intensity : 4 Rama Yeung RN - 01/21/2020 5:08 EST Image 4 - Images currently included in the form version of this document have not been included in the text rendition version of the form. documented in this encounter Plan of Treatment Not on file documented as of this encounter Visit Diagnoses Not on filedocumented in this encounter
--- OUTSIDE RECORDS SUMMARY | 2025-05-03 09:52 | XMS_ITS | Encounter Summary ---
Author Organization [employer] Address [address] [place] [address] Care Team Providers Care Grain Elevator Clerk Name Role Phone Unavailable Primary Care Provider Unavailabl e Encounter Details Date Type Department Care Team (Late st Contact Info) Description 01/19/2020 Transcribed Document [facility] [address] [place] [address] aPresh Bravo MD [address] [place] [address] [address] Social History Tobacco Use Types Packs/Day Years Used Date Smoking Tobacco: Never Assessed Sex and Gender Information Value Date Recorded Sex Assigned at Not on file Legal Sex Male 5:25 PM CDT Gender Identity Not on file Sexual Orientation Not on file documented as of this encounter Miscellaneous Notes * Cerner Conversion Note - Paresh Bravo MD - 01/19/2020 12:53 PM EST Patient: JONATHAN DELGADO Age: 49 years Sex: Male : 1970 Associated Diagnoses: None Author: PARESH BRAVO MD-INT Subjective Patient feeling better today. No fever or chills. No family at the bedside Review of Systems Constitutional: No fever, No chills. Eye: Negative. Ear/Nose/Mouth/Throat: Negative. Respiratory: Negative. Cardiovascular: No chest pain. Gastrointestinal: No nausea, No vomiting, No diarrhea. Genitourinary: No dysuria. Hematology/Lymphatics: Negative. Endocrine: Negative. Immunologic: No recurrent fevers. Musculoskeletal: No back pain. Integumentary: No rash. Neurologic: Negative. Psychiatric: Negative. Health Status Allergies: Allergic Reactions (Selected) Severity Not Documented Penicillin- No reactions were documented., Allergies (1) Active Reaction penicillin None Documented Current medications: (Selected) Inpatient Medications Ordered Ativan: [...] 50 mg, Oral, At Bedtime, PRN: Insomnia Documented Medications Documented aspirin: 81 mg, Oral, Daily, 0 Refill(s) atorvastatin: 40 mg, Oral, At Bedtime, 0 Refill(s) insulin lispro: 15 Units, SubCutaneous, TID With Meals, 0 Refill(s) omeprazole: 20 mg, Oral, Daily, 0 Refill(s) sertraline 100 mg oral tablet: 2 Tab, Oral, Daily, 0 Refill(s) traZODone: 50 mg, Oral, At Bedtime, PRN: Insomnia, 0 Refill(s), Medications (17) Active Scheduled: (6) aspirin 81 mg chew tab 81 mg 1 Tab, Oral, Daily atorvastatin 40 mg tab 40 mg 1 Tab, Oral, At Bedtime famotidine 20 mg tab 20 mg 1 Tab, Oral, Daily heparin 5,000 units/1 mL inj 5,000 Units 1 mL, SubCutaneous, Q8H meropenem + NaCl 0.9% 50 mL 500 mg, IV Piggyback, Q6H sertraline 100 mg tab 200 mg 2 Tab, Oral, Daily Continuous: (1) NaCl 0.9% 1,000 mL 1,000 mL, IntraVENous, 75 mL/Hr PRN: (10) acetaminophen 325 mg tab 650 mg 2 Tab, Oral, Q4H albuterol-ipratropium inh 3 mL 3 mL, Nebulized Inhalation, Q2H albuterol-ipratropium inh 3 mL 3 mL, Nebulized Inhalation, Q2H cloNIDine 0.1 mg tab 0.1 mg 1 Tab, Oral, Q4H hydrALAZINE 20 mg/1 mL inj 10 mg 0.5 mL, IV Push, Q6H LORazepam 2 mg/mL inj 0.5 mg 0.25 mL, IV Push, Q4H ondansetron 4 mg/2 mL inj 4 mg 2 mL, IV Push, Q4H oxyCODONE 5 mg tab 5 mg 1 Tab, Oral, Q4H promethazine 25 mg/1 mL inj 6.25 mg 0.25 mL, IntraVENous, Q6H traZODone 50 mg tab 50 mg 1 Tab, Oral, At Bedtime Problem list: Medical History of obstructive sleep apnea / IMO [id number] / Confirmed, Active Problems (11) Angina Coronary [...] 10:55) 16 (JAN 18 18:39) 18 (JAN 18 23:30) SBP 115 (JAN 19 10:55) 105 (JAN [...] are equal, round and reactive to light, Extraocular movements are intact, Normal conjunctiva. HENT: Normocephalic. Neck: Supple, Non-tender. Respiratory: Lungs are clear to auscultation, Breath sounds are equal. Cardiovascular: Normal rate, Regular rhythm, No murmur. Gastrointestinal: Soft, Non-tender, Non-distended, Normal bowel sounds. Genitourinary: No costovertebral angle tenderness. Musculoskeletal: Normal range of motion, Left great toe base swollen and tender. Integumentary: Warm, No rash. Neurologic: Alert, Oriented, No focal deficits. Psychiatric: Cooperative, Appropriate mood & affect. Review / Management JAN 19 07:07 137 106 22 / H 165 4.3 29 1.10 \ Radiology Results (Last 48 hours) [id number] -- 01/18/2020 16:50 CR Chest 2 Vws [...] (JAN 18) Lactic 0.7 (JAN 19) 1.1 (B ) PT 10.2 (B ) INR 1.0 (JAN 18) AST 18 (JAN 18) ALT 32 (B ) ALK P 90 (JAN 18) T Bili 0.6 (JAN 18) PTN L 6.3 (JAN 18) ALB L 3.2 (JAN 18) Troponin <0.015 (JAN 18) . Medication Changes from Previous Midnight to Current New Medications: acetaminophen (Tylenol) 650 mg, Oral, Tab, Q4H, PRN for Other (See Comment), Routine, Start 01/18/20 17:51:00 CONRAD BEASLEY MD-FAM albuterol-ipratropium (DuoNeb 0.5 mg-2.5 mg/3 mL inhalation solution) 3 mL, Nebulized Inhalation, Inh, Q2H, PRN for Shortness of Breath, Routine, Start 01/18/20 17:50:00 CONRAD BEASLEY MD-FAM albuterol-ipratropium (DuoNeb 0.5 mg-2.5 mg/3 mL inhalation solution) 3 mL, Nebulized Inhalation, Inh, Q2H, PRN for Shortness of Breath, Routine, Start 01/18/20 17:50:00 CONRAD BEASLEY MD-FAM aspirin 81 mg, Oral, Tab, Daily, Routine, Start 01/19/20 9:00:00 CONRAD BEASLEY MD-FAM atorvastatin 40 mg, Oral, Tab, At Bedtime, Routine, Start 01/18/20 21:00:00 CONRAD BEASLEY MD-FAM cloNIDine 0.1 mg, Oral, Tab, Q4H, PRN for Hypertension, Routine, Start 01/18/20 17:51:00 CONRAD BEASLEY MD-FAM famotidine (Pepcid) 20 mg, Oral, Tab, Daily, Routine, Start 01/19/20 9:00:00 CONRAD BEASLEY MD-FAM heparin 5,000 Units, SubCutaneous, Inj, Q8H, Routine, Start 01/18/20 17:50:00 CONRAD BEASLEY MD-FAM hydrALAZINE 10 mg, IV Push, Inj, Q6H, PRN for Hypertension, Routine, Start 01/18/20 17:51:00 CONRAD BEASLEY MD-FAM LORazepam (Ativan) 0.5 mg, IV Push, Inj, Q4H, PRN for Agitation, Routine, Start 01/18/20 17:50:00 CONRAD BEASLEY MD-FAM meropenem + Sodium Chloride 0.9% intravenous solution 50 mL (Merrem + Sodium Chloride 0.9% intravenous solution 50 mL) 500 mg, IV Piggyback, Q6H, infuse over 3 Hour(s), Start 01/19/20 0:00:00 EST, 16.67 mL/Hr, Indication: Skin and Skin Structure Infection CONRAD GARDNER MD-FAM ondansetron (Zofran) 4 mg, IV Push, Inj, Q4H, PRN for Nausea, Routine, Start 01/18/20 17:51:00 EST CONRAD GARDNER MD-FAM oxyCODONE 5 mg, Oral, Tab, Q4H, PRN for Pain (Severe 7-10), Routine, Start 01/18/20 17:50:00 EST CONRAD GARDNER MD-FAM promethazine (Phenergan) 6.25 mg, IntraVENous, Inj, Q6H, PRN for Nausea, Routine, Start 01/18/20 17:51:00 EST CONRAD GARDNER MD-FAM sertraline 200 mg, Oral, Tab, Daily, Routine, Start 01/19/20 9:00:00 EST CONRAD GARDNER MD-FAM Sodium Chloride 0.9% intravenous solution 1,000 mL (Normal Saline 1,000 mL) 1,000 mL, Bag Volume (mL) = 1,000, IntraVENous, Rate = 75 mL/Hr, start date 01/18/20 17:54:00 EST, Routine, 2.37, m2 CONRAD GARDNER MD-FAM traZODone 50 mg, Oral, Tab, At Bedtime, PRN for Insomnia, Routine, Start 01/18/20 17:53:00 EST CONRAD GARDNER MD-FAM Discontinued Medications: No Qualifying Discontinued Meds Impression and Plan Left foot cellulitis. Rule out osteomyelitis. Left foot X-rays noted MRI left foot in a.m. Rule out peripheral last coronary disease. Cardiology to order arterial Doppler ultrasound. Continue broad-spectrum IV antibiotics. ID consult. Podiatric consulted. Coronary artery disease Status post PCI. Stable. Continue home medications. Diabetes mellitus. Insulin-dependent. Uncontrolled. Hemoglobin A1c 10 Diabetes education prior to discharge. Hypertension. Controlled. Resume home medications. Hydralazine IV as needed. CODE STATUS Full code GI and DVT prophylaxis. Time spent 28 minutes documented in this encounter Plan of Treatment Not on file documented as of this encounter Visit Diagnoses Not on filedocumented in this encounter
--- OUTSIDE RECORDS SUMMARY | 2025-05-03 09:52 | XMS_ITS | Encounter Summary ---
Author Organization [employer] Address [address] [place] [address] Care Team Providers Care Plugger Name Role Phone Unavailable Primary Care Provider Unavailabl e Encounter Details Date Type Department Care Team (Late st Contact Info) Description 01/20/2020 Transcribed Document [facility] [place] Medicine [facility] [place] [address] ProviderLora MD [address] [place] [address] Social History Tobacco Use Types Packs/Day Years Used Date Smoking Tobacco: Never Assessed Sex and Gender Information Value Date Recorded Sex Assigned at Not on file Legal Sex Male 5:25 PM CDT Gender Identity Not on file Sexual Orientation Not on file documented as of this encounter Miscellaneous Notes * Cerner Conversion Note - Historical ProviderMD - 01/20/2020 12:17 PM DIRECTOR CUSTOMER Senior Controls Technician Inpatient Document Entered On: 01/20/2020 15:26 EST Performed On: 01/20/2020 15:24 EST by CAITLYN PURI RN Education, IP Diabetes Diabetes Inpatient Education Grid Diabetes : Verbalizes understanding CAITLYN PURI RN - 01/20/2020 15:24 EST inpatient diabetes education grid A1C : Verbalizes understanding (Comment: 10% [CAITLYN PURI RN - 01/20/2020 15:24 EST] ) Home Blood Glucose Monitoring : Verbalizes understanding (Comment: reviewed goals [CAITLYN PURI RN - 01/20/2020 15:24 EST] ) Insulin Administration : Verbalizes understanding (Comment: pt has been getting some insulin from his endo, but his basal had run out and buying Novolin R over the counter [CAITLYN PURI RN - 01/20/2020 15:24 EST] ) Meal Planning : Verbalizes understanding (Comment: reviewed carb counting and gave written information [CAITLYN PURI, RN - 01/20/2020 15:24 EST] ) Overview of Diabetes : Verbalizes understanding (Comment: reviewed and gave diabetes basics booklet [CAITLYN PURI, RN - 01/20/2020 15:24 EST] ) CAITLYN PURI RN - 01/20/2020 15:24 EST Electronically signed by Stefanie [facility] Conversion Geophysical Drafter Cerner at 03/17/2023 9:17 AM CDT documented in this encounter Plan of Treatment Not on file documented as of this encounter Visit Diagnoses Not on filedocumented in this encounter
--- OUTSIDE RECORDS SUMMARY | 2025-05-03 09:52 | XMS_ITS | Encounter Summary ---
Author Organization [employer] Address [address] [place] [address] Care Team Providers Care Mind Reader Name Role Phone Unavailable Primary Care Provider Unavailabl e Encounter Details Date Type Department Care Team (Late st Contact Info) Description 01/20/2020 Transcribed Document [facility] Radiology [address] [place] [address] Paresh Bravo MD [address] [place] [address] [address] Social History Tobacco Use Types Packs/Day Years Used Date Smoking Tobacco: Never Assessed Sex and Gender Information Value Date Recorded Sex Assigned at Not on file Legal Sex Male 5:25 PM CDT Gender Identity Not on file Sexual Orientation Not on file documented as of this encounter Miscellaneous Notes * Cerner Conversion Note - Paresh Bravo MD - 01/20/2020 1:13 PM EST Patient: JONATHAN DELGADO Age: 49 years Sex: Male : 1970 Associated Diagnoses: None Author: PARESH BRAVO MD-INT Subjective Patient feeling better today. Review of Systems Constitutional: No fever, No [...] mg, 18 mL, 136 mL/Hr, IV Piggyback, [id number] DAPTOmycin + Sodium Chloride 0.9% intravenous solution 50 mL: 900 mg, 18 mL, 136 mL/Hr, IV Piggyback, [id number] DuoNeb 0.5 mg-2.5 mg/3 mL inhalation solution: [...] mL: 2 Gram, 100 mL/Hr, IV Piggyback, [id number] Tylenol: 650 mg, Oral, Q4H, PRN: Other [...] At Bedtime, PRN: Insomnia Documented Medications Documented Jardiance 25 mg oral tablet: 1 Tab, Oral, QAM, 0 Refill(s) Lantus 100 units/mL subcutaneous solution: 38 Units, SubCutaneous, At Bedtime, 10 mL, 0 Refill(s) NovoLOG 100 units/mL injectable solution: 15 Units, SubCutaneous, BIDAC, Adjusts per sliding scale, 0 Refill(s) PriLOSEC OTC 20 mg oral delayed release tablet: 1 Tab, Oral, Daily, 180 Tab, 0 Refill(s) aspirin 81 mg oral tablet: 1 Tab, Oral, Daily, 30 Tab, 0 Refill(s) sertraline 100 mg oral tablet: 2 Tab, Oral, Daily, 0 Refill(s), Medications (21) Active Scheduled: (10) aspirin 81 mg chew tab 81 mg 1 Tab, Oral, Daily atorvastatin 40 mg tab 40 mg 1 Tab, Oral, At Bedtime cefTRIAXone + NaCl 0.9% 50 mL 2 Gram, IV Piggyback, [id number] DAPTOmycin + NaCl 0.9% 50 mL 900 mg 18 mL, IV Piggyback, [id number] DAPTOmycin + NaCl 0.9% 50 mL 900 mg 18 mL, IV Piggyback, [id number] famotidine 20 mg tab 20 mg 1 Tab, Oral, Daily heparin 5,000 units/1 mL inj 5,000 Units 1 mL, SubCutaneous, Q8H insulin glargine 1 unit/0.01 mL inj 18 Units 0.18 mL, SubCutaneous, Daily insulin lispro 1 unit/0.01 mL inj Scale D:, SubCutaneous, AC and at Bedtime sertraline 100 mg tab 200 mg 2 [...] History of obstructive sleep apnea / IMO [id number] / Confirmed, Active Problems (11) Angina Coronary artery disease Diabetes mellitus type II GERD - Gastro-esophageal reflux disease History of obstructive sleep apnea Hyperlipidemia Hypertension Impaired vision in both eyes Migraine Prostate infection Stented coronary artery Objective VS/Measurements Vitals Signs (last 24 hrs) Last Charted Minimum Maximum Temp 97.6 (JAN 20 10:36) 97.6 (JAN 20 10:36) 98.1 (JAN 19:) Mon HR 70 (JAN 20 10:36) 66 (JAN 20 03:22) 72 (JAN 19:) Resp Rate 18 (JAN 20 10:36) 17 (JAN 19 14:45) 20 (JAN 19:) SBP 112 (JAN 20 10:36) 104 (JAN 19:27) 112 (JAN 19 14:45) DBP 72 (JAN 20 10:36) 69 (JAN 19:27) 78 (JAN 19 14:45) MAP 84 (JAN 20 10:36) 81 (JAN 19:27) 90 (JAN 19 14:45) SpO2 L 92 (JAN 20 10:36) L 92 (JAN 19:27) 94 (JAN 19 14:45) General: Alert and [...] mood & affect. Review / Management JAN 20 06:38 139 107 20 / H 145 4.2 29 1.00 \ JAN 20 06:38 \ 13.9 / 6.5 190 / 42.9 \ Radiology Results (Last 48 hours) [id number] -- 01/19/2020 15:12 CR Chest 2 Vws [...] be within a tendon sheath. Sterility isindeterminate. Results review: Labs (Last four charted values) WBC 6.5 (JAN 20) 8.0 (JAN 19) 8.4 (JAN 18) HB 13.9 (JAN 20) L 13.0 (JAN 19) 13.5 (JAN 18) HCT 42.9 (JAN 20) 40.1 (JAN 19) 41.8 (JAN 18) Plt 190 (JAN 20) L 162 (JAN 19) L 157 (JAN 18) Na 139 (JAN 20) 137 (JAN 19) 137 (JAN 18) K 4.2 (JAN 20) 4.3 (JAN 19) 3.9 (JAN 18) Cl 107 (JAN 20) 106 (B ) 105 (JAN 18) CO2 29 (JAN 20) 29 (JAN 19) 28 (JAN 18) BUN 20 (JAN 20) 22 (JAN 19) H 23 (JAN 18) Cr 1.00 (DEC 24) 1.10 (B ) 1.10 (B ) Glu R H 145 (JAN 20) H 165 (JAN 19) H 209 (JAN 18) Ca 9.3 (B 24) 8.6 (B 23) 8.6 (B ) Lactic 0.7 (B ) 1.1 (B ) PT 10.2 (JAN 18) INR 1.0 (B ) AST 18 (JAN 18) ALT 32 (JAN 18) ALK P 90 (JAN 18) T Bili 0.6 (JAN 18) PTN L 6.3 (JAN 18) ALB L 3.2 (JAN 18) Troponin <0.015 (JAN 18) . Medication Changes from Previous Midnight to Current New Medications: cefTRIAXone + Sodium Chloride 0.9% intravenous solution 50 mL (Rocephin + Sodium Chloride 0.9% intravenous solution 50 mL) 2 Gram, IV Piggyback, Inj, [id number], infuse over 30 Minute(s), Routine, Start 01/20/20 16:00:00 EST, 100 mL/Hr, Indication: Skin and Skin Structure Infection SARCINELLA, MYNOR, SENIOR JAVA SOFTWARE DEVELOPER DAPTOmycin + Sodium Chloride 0.9% intravenous solution 50 mL 900 mg, IV Piggyback, [id number], infuse over 30 Minute(s), Routine, Start 01/20/20 21:00:00 EST, 136 mL/Hr, Indication: Skin and Skin Structure Infection SARCINELLA, MYNOR, SENIOR JAVA SOFTWARE DEVELOPER DAPTOmycin + Sodium Chloride 0.9% intravenous solution 50 mL 900 mg, IV Piggyback, [id number], infuse over 30 Minute(s), order duration: 1 Time(s), Routine, Start 01/19/20 16:00:00 EST, Stop 01/20/20 15:59:00 EST, 136 mL/Hr, Indication: Skin and Skin Structure Infection CHRISTIANOINELLA, MYNOR, SENIOR JAVA SOFTWARE DEVELOPER insulin glargine (Lantus) 18 Units, SubCutaneous, Inj, Daily, Routine, Start 01/19/20 11:59:00 EST PARESH BRAVO MD-INT insulin lispro (insulin lispro sliding scale) Scale D:, SubCutaneous, Inj, AC and at Bedtime, Routine, Start 01/19/20 16:00:00 EST, At HS give only if FSBG > 180 mg/dL PARESH BRAVO MD-INT Discontinued Medications: cefTRIAXone + Sodium Chloride 0.9% intravenous solution 100 mL (Rocephin + Sodium Chloride 0.9% intravenous solution 100 mL) 2 Gram, IV Piggyback, [id number], infuse over 30 Minute(s), Routine, Start 01/19/20 16:00:00 EST, 200 mL/Hr, Indication: Skin and Skin Structure Infection SARCINELLA, MYNOR, SENIOR JAVA SOFTWARE DEVELOPER meropenem + Sodium Chloride 0.9% intravenous solution 50 mL (Merrem + Sodium Chloride 0.9% intravenous solution 50 mL) 500 mg, IV Piggyback, Q6H, infuse over 3 Hour(s), Start 02/23/20 0:00:00 EST, 16.67 mL/Hr, Indication: Skin and Skin Structure Infection MYNOR FINK APRN MRI: IMPRESSION: 1. No evidence of osteomyelitis. 2. Small tubular fluid collection adjacent to the first metatarsal neck is nonspecific, this may be within a tendon sheath. Sterility is indeterminate. Impression and Plan Left foot cellulitis. Left foot MRI no [...]
--- OUTSIDE RECORDS SUMMARY | 2025-05-03 09:52 | XMS_ITS | Encounter Summary ---
Author Organization [employer] Address [address] [place] [address] Care Team Providers Care Rehabilitation Construction Specialist Name Role Phone Unavailable Primary Care Provider Unavailabl e Encounter Details Date Type Department Care Team (Late st Contact Info) Description 01/19/2020 Transcribed Document [facility] [place] [facility] [place] [address] ProviderLora MD [address] [place], [place] [id number] Social History Tobacco Use Types Packs/Day Years Used Date Smoking Tobacco: Never Assessed Sex and Gender Information Value Date Recorded Sex Assigned at Not on file Legal Sex Male 5:25 PM CDT Gender Identity Not on file Sexual Orientation Not on file documented as of this encounter Miscellaneous Notes * Cerner Conversion Note - Historical ProviderMD - 01/19/2020 3:14 PM COMMERCIAL SALES MANAGER UM Authorization Entered On: 01/19/2020 15:19 EST Performed On: 01/19/2020 15:14 EST by HORACIO REGALADO Rn-Utilization Review Primary Insurance Authorization Authorization and Policy Numbers : Insurance 1 Health Plan: ANTH [employer] Policy Number: [id number] Authorization Number: Insurance Primary Name : ANTH HMOPPO Policy Number: [id number] Authorization Status-Primary : Awaiting callback Reference Number-Primary : [id number] Authorized Service Begin Date-Primary : 01/18/2020 EST Authorization Comments-Primary : Submitted Inpt Auth on Availity with clinicals attached. Historical Authorization Comments-Primary : No Authorization Comments Found HORACIO REGALADO Rn-Utilization Review - 01/19/2020 15:14 EST Electronically signed by Stefanie [facility] Conversion [employer] Coxswain Cerner at 03/17/2023 9:18 AM CDT documented in this encounter Plan of Treatment Not on file documented as of this encounter Visit Diagnoses Not on filedocumented in this encounter
--- OUTSIDE RECORDS SUMMARY | 2025-05-03 09:52 | XMS_ITS | Encounter Summary ---
Author Organization [employer] Address [address] [place] [address] Care Team Providers Care Vascular Nurse Name Role Phone Unavailable Primary Care Provider Unavailabl e Encounter Details Date Type Department Care Team (Late st Contact Info) Description 01/21/2020 Transcribed Document [facility] [place] [address] [place] [address] ProviderLora MD [address] [place], [place] [address] Social History Tobacco Use Types Packs/Day Years Used Date Smoking Tobacco: Never Assessed Sex and Gender Information Value Date Recorded Sex Assigned at Not on file Legal Sex Male 5:25 PM CDT Gender Identity Not on file Sexual Orientation Not on file documented as of this encounter Miscellaneous Notes * Cerner Conversion Note - Historical ProviderMD - 01/21/2020 2:00 AM BOX INSPECTOR Offal Roller Details Entered On: 01/21/2020 5:09 EST Performed On: 01/21/2020 2:00 EST by Rama Yeung, RN Order Details Transport Mode Order Detail : Wheelchair Isolation Precautions Order Detail : Standard Precautions Order Detail : N/A Lift/Transfer : Independent Central Line Order Detail : No Room Service : Appropriate Arterial Line : No Rama Yeung, RN - 01/21/2020 5:09 EST Electronically signed by Stefanie [facility] Conversion Bike Assembler Cerner at 03/17/2023 9:15 AM CDT documented in this encounter Plan of Treatment Not on file documented as of this encounter Visit Diagnoses Not on filedocumented in this encounter
--- OUTSIDE RECORDS SUMMARY | 2025-05-03 09:52 | XMS_ITS | Encounter Summary ---
Author Organization [employer] Address [address] [place] [address] Care Team Providers Care Battery Parts Assembler Name Role Phone Unavailable Primary Care Provider Unavailabl e Encounter Details Date Type Department Care Team (Late st Contact Info) Description 01/20/2020 Transcribed Document [facility] [place] Family Medicine [address] [place] [address] ProviderLora MD [address] [place], [place] [address] Social History Tobacco Use Types Packs/Day Years Used Date Smoking Tobacco: Never Assessed Sex and Gender Information Value Date Recorded Sex Assigned at Not on file Legal Sex Male 5:25 PM CDT Gender Identity Not on file Sexual Orientation Not on file documented as of this encounter Miscellaneous Notes * Cerner Conversion Note - Historical ProviderMD - 01/20/2020 9:00 AM LEAD GENERATOR Consult Phone Call Documentation Entered On: 01/20/2020 7:35 EST Performed On: 01/20/2020 9:00 EST by JASON SALGUERO Phone Call for Consults Consult Reason : foot cellulitis, done by koki hurtado yesterday Physician Requested for Consult : BAYRON BARAKAT MD-INF Provider Service Notified Name : Infectious Disease Date and Time Call Returned : 01/20/2020 7:35 EST JASON SALGUERO - 01/20/2020 7:34 EST documented in this encounter Plan of Treatment Not on file documented as of this encounter Visit Diagnoses Not on filedocumented in this encounter
--- OUTSIDE RECORDS SUMMARY | 2025-05-03 09:52 | XMS_ITS | Encounter Summary ---
Author Organization [employer] Address [address] [place] [address] Care Team Providers Care Ep Technologist Name Role Phone Unavailable Primary Care Provider Unavailabl e Encounter Details Date Type Department Care Team (Late st Contact Info) Description 01/20/2020 Transcribed Document [facility] [place] [facility] [place] [address] ProvideroLra MD [address] [place] [address] Social History Tobacco Use Types Packs/Day Years Used Date Smoking Tobacco: Never Assessed Sex and Gender Information Value Date Recorded Sex Assigned at Not on file Legal Sex Male 5:25 PM CDT Gender Identity Not on file Sexual Orientation Not on file documented as of this encounter Miscellaneous Notes * Cerner Conversion Note - Historical ProviderMD - 01/20/2020 11:52 AM SCREEN OPERATOR Patient: JONATHAN DELGADO Age: 49 years Sex: Male : 1970 Associated Diagnoses: None Author: MARA SKAGGS MD-INF ID PROGRESS NOTE Referring MD: Dr Bravo Date of admission: 01/18/20 Date of consultation: 01/19/20 Reason for consultation: foot cellulitis Chief Complaint: foot pain Current antimicrobial therapy: Rocephin and Daptomycin HPI: 01/19/20: Mr. Jonathan Delgado is a 49-year-old male being evaluated for left foot wound. He has a past medical history significant for diabetes mellitus, peripheral neuropathy, hyperlipidemia and hypertension. He originally presented to [facility] with complaints of left foot pain. States that this pain began about Monday is when he first noticed. He has his took his foot and discovered that there was a wound on the sole of his left foot on the ball of the foot. He does not recall any trauma to the foot. Family stated that due to a disagreement with the maintenance of way clerk that was on duty they requested transfer from that facility to here. Labs at outside hospital showed patient was without leukocytosis and was generally unremarkable. Cultures were obtained and patient was given 2 g IV Rocephin. He did receive a foot x-ray while at [facility] but the report did not accopany the [...] of 10, denies f/c, sob, n/v/d, rashes. Past Medical History: Active Problems (11) Angina [...] 03:22) 97.3 (JAN 19 14:45) 98.1 (JAN 19:) Mon HR 66 (JAN 20 03:22) 66 (JAN 20 03:22) 72 (JAN 19:27) Resp Rate 18 (JAN 20 03:22) 17 (JAN 19 14:45) 20 (JAN 19:27) SBP 106 (JAN 20 03:22) 104 (JAN 19:27) 112 (JAN 19 14:45) DBP 71 (JAN 20 03:22) 69 (JAN 19 23:27) 78 (JAN 19 14:45) MAP 82 (JAN 20 03:22) 81 (JAN 19 23:27) 90 (JAN 19 14:45) SpO2 94 (JAN 20 03:22) L 92 (JAN 19 23:27) 94 (JAN 19 14:45) Exam: Gen: Alert, in no acute distress, appears stated age HEENT: NC/AT, sclera nonicteric, no conjunctival injection, Oropharynx without thrush, lesions RESP: CTA bilaterally without rhonchi, rales, or [...] red wound bed was some purulence noted. NEURO: A and O x 4, CN II-XII grossly intact. He has lower extremity numbness bilaterally PSYCH: Normal insight and judgment, cooperative with PE Labs:Labs (Last four charted values) WBC 6.5 (JAN 20) 8.0 (JAN 19) 8.4 (B ) HB 13.9 (JAN 20) L 13.0 (B ) 13.5 (B ) HCT 42.9 (JAN 20) 40.1 (B ) 41.8 (B ) Plt 190 (B ) L 162 (B ) L 157 (FEB ) Na 139 (B ) 137 (B ) 137 (JAN 18) K 4.2 (JAN 20) 4.3 (JAN 19) 3.9 (B ) Cl 107 (B ) 106 (B ) 105 (B ) CO2 29 (JAN 20) 29 (B 23) 28 (B ) BUN 20 (B ) 22 (B 23) H 23 (B ) Cr 1.00 (B 24) 1.10 (B ) 1.10 (B ) Glu R H 145 (B 24) H 165 (B 23) H 209 (B ) Ca 9.3 (B 24) 8.6 (B ) 8.6 (B ) Lactic 0.7 (JAN 19) 1.1 (JAN 18) PT 10.2 (JAN 18) INR 1.0 (JAN 18) AST 18 (JAN 18) ALT 32 (JAN 18) ALK P 90 (JAN 18) T Bili 0.6 (JAN 18) PTN L 6.3 (JAN 18) ALB L 3.2 (JAN 18) Troponin <0.015 (JAN 18) Micro: 01/19 wound cultures Staph aureus/ID and S pending 01/18 blood cultures NGSF Rad: Radiology Results (Last 48 hours) [id number] -- 01/19/2020 15:12 CR Chest 2 Vws [...] a tendon sheath. Sterility isindeterminate. IMPRESSION: 1. Left foot wound/cellulitis/?septic tendonitis. This is a neuropathic diabetic ulcer ulcer. He will need to offload this ulcer and he will need to take better care of his feet in the future in order to reduce his risk of recurrent diabetic foot ulcers. I cannot probe this down to bone. An MRI is negative for osteomyelitis, but there is a small fluid collection adjacent to 1st MT neck and may be within the tendon sheath. 2. Coronary artery disease status post PCI 3. Diabetes mellitus- Type II 4. Hypertension 5. Peripheral neuropathy RECOMMENDATIONS/PLANS: 1. Daptomycin 8 mg/kg IV every 24 hours 2. Rocephin 2 g IV every 24 hours 3. Continue to follow cultures and sensitivity reports an just antibiotics accordingly 4. Agree with vascular and podiatry consultations 5. Continue wound care Mara Skaggs MD saw and examined patient, verified findings, reviewed labs and radiographic data, formulated diagnosis, plan for treatment, and all medical decision making. Leonel Donnelly for Dr. Mara Skaggs. I discussed his situation with Dr. Bravo and GARRY documented in this encounter Plan of Treatment Not on file documented as of this encounter Visit Diagnoses Not on filedocumented in this encounter
[2025-05-03 09:56] LABS: Microscopic, Urine URINE MICROSCOPIC (MICROSCOPIC)
[2025-05-03 10:51] LABS: Basophils % 0.5 % (0.1-2.0); Eosinophils # 0.2 Kmm3 (0.0-0.4); Eosinophils % 2.5 % (0.1-12.0); Hemoglobin 13.6 g/dL (14.1-18.0); Immature Granulocytes # 0.04 10^3uL; Immature Granulocytes % 0.5 %; Lymphocytes # 1.5 K/mm3 (0.7-4.5); Lymphocytes % 20.3 % (10-50); Mean Corpuscular HGB Conc 32.4 g/dL (31.8-35.4); Mean Corpuscular Hemoglobin 28.2 pg (27.0-31.2); Mean Platelet Volume 10.2 fl (7.4-10.4); Monocytes # 0.7 K/mm3 (0.1-1.0); Monocytes % 8.8 % (1.7-9.3); Neutrophils % 67.4 % (37.0-80.0); Nucleated Red Blood Cells # 0 10^3/uL; Nucleated Red Blood Cells % 0 %; Platelet Count 249 K/mm3 (142-424); Red Blood Count 4.83 M/mm3 (4.60-6.20); Red Cell Distribution Width 13.2 % (11.5-17.5); Red Cell Distribution Width-SD 41.8 fL; White Blood Count 7.5 K/mm3 (4.8-10.8)
[2025-05-03 10:53] LABS: Appearance,Urine CLEAR (Clear); Bilirubin,Urine Negative (Negative); Blood, Urine Negative (Negative); Color,Urine YELLOW (Yellow); Glucose,Urine (UA) 2+ (Negative); Ketones,Urine Negative (Negative); Leukocyte Esterase,Urine TRACE (Negative); Nitrate,Urine Negative (Negative); Protein,Urine Negative (Negative); Specific Gravity, Urine >= 1.030 (1.005-1.030); Urobilinogen,Urine 0.2 EU/dl (0.2)
[2025-05-03 11:10] LABS: Creatinine,Urine Random 116 mg/dL (Not Estab.)
[2025-05-03 11:12] LABS: Bacteria,Urine Trace /lpf; Squamous Epithelial Cell,Urine Occasional #/hpf (0-5)
[2025-05-03 12:18] LABS: Anion Gap 7.7 mEq/L (5-15); Blood Urea Nitrogen 25 mg/dl (9-20); Calcium 8.8 mg/dl (8.4-10.2); Carbon Dioxide 29 mmol/L (22.0-30.0); Chloride 105 mmol/L (98-107); Creatine Kinase 120 U/L (55-170); Estimated Glomerular Filt Rate 58 ml/min (>60); GFR (African American) 70 ML/MIN (>60); Glucose 126 mg/dl (74-100); Phosphorous 3.8 mg/dl (2.5-4.5); Potassium 4.7 mmoL/L (3.5-5.1); Sodium 137 mmol/L (136-145)
[2025-05-03 12:30] LABS: Intact Parathyroid Hormone 303.4 pg/mL (7.5-53.5)
[2025-05-03 13:12] LABS: Hemoglobin A1C 7.5 % (4.0-6.0)
[2025-05-10 02:18] LABS: 1,25 Dihydroxy Vitamin D 26 pg/mL (.); 1,25-Dihydroxy, Vitamin D-2 19 pg/mL (.); 1,25-Dihydroxy, Vitamin D-3 <10 pg/mL (.)
== END 2025-05-03 23:59 | disposition home or self-care (01) ==
LOC: LAB 09:50
PROVIDERS: PCP Family Medicine; Visit Provider Internal Medicine Nephrology
DX: E11.9 Type 2 diabetes mellitus without complications (principal); N17.9 Acute kidney failure, unspecified; E78.5 Hyperlipidemia, unspecified
CPT/HCPCS: 36415; 80069; 81001; 82043; 82550; 82570; 82652; 83036; 83970; 85025

== ENCOUNTER 2025-05-08 11:47 | Outpatient (CLI) | payer MEDICAID, SELFPAY ==
--- NOTE | 2025-05-08 | CA_ITS ---
APPROVED REPORT Exam: Pharmacologic Technologist: Stefania Goodman Ht: 6 ft 3 in Wt: 238 lbs BSA: 2.36 m2 Medical History Medications: aspirin, atorvastatin, bupropion HCI, vitamin D2, folic acid, gabapentin, humalog, pantoprazole, ranolazine ER, sertraline, ticagrelor Stress Test Details Test: Lexiscan Reason for pharmacologic stress test: physical limitation. HR Resting HR: 71 bpm Max Heart Rate (APMHR): 166 bpm Max HR Achieved: 77 bpm Target HR (85% APMHR): 141 bpm % of APMHR: 46 Recovery HR: 72 bpm BP Resting BP: 120.0/78.0 mmHg Max BP: 123.0/77.0 mmHg Recovery BP: 123.0/77.0 mmHg ECG Resting ECG: SR. No isch or ectopy Stress ECG Conclusion Symptoms: None. Arrhythmias/Ectopy: None. ST-T Changes: None. Electronically signed by : Tanika Quintanilla MD 05/08/2025 14:21:48
--- NOTE | 2025-05-08 12:00 | NM_ITS ---
APPROVED REPORT Exam: Nuclear Stress Test Indication: Chest pain, SOB, Syncope, Fatigue, DM, CAD Patient Location: Outpatient Stress Tech: Stefania Roca MS Tech:Melissa Danielson EARLSangeetha RT(R)(N) Ht: 6 ft 2 in Wt: 238 lbs HR: 71 bpm BP: 120/78 mmHg BSA: 2.34 m2 TID: 1.00 BMI: 30.5 History: Chest pain, SOB, Syncope, Fatigue, DM, CAD Procedure: Patient received 0.4 mg of intravenous Lexiscan, resting heart rate 71 bpm, resting blood pressure 120/78 mmHg, with Lexiscan maximum heart rate achieved was 77 bpm which is % of the maximum predicted heart rate and blood pressure was 123/77 mmHg. With Lexiscan, patient denied any complaint of chest pain. Cardiac Stress and Resting SPECT Images: Cardiac Stress and Resting SPECT images were obtained using technetium 99m Myoview 32.0 mCi stress and 10.07 mCi at rest. Resting and stress imaging in supine and prone positions demonstrate medium sized, moderate, reversible perfusion defect in the mid to distal anterior LV wall. Gated imaging demonstrates normal global LV systolic function. LVEF is calculated at 58%. Conclusion: Medium sized, moderate, reversible perfusion defect in the mid to distal anterior LV wall. Findings are suggestive of reversible ischemia. Gated imaging demonstrates normal global LV systolic function. LVEF is calculated at 58%. Electronically signed by : Tanika Quintanilla MD 05/12/2025 12:02:04
--- OUTSIDE RECORDS SUMMARY | 2025-05-08 13:25 | XMS_ITS | Clinical Summary ---
Author Organization [facility] Address [address] [place] [address] Phone Care Team Providers Care Human Services Program Specialist Name Role Phone Giles DE LA CRUZ, [...] fat layer exposed Coronary artery disease (CAD) 53999090 (SNOMED CT) 01/21 Active 01/21 Georgina Ruth Coronary arteriosclerosis DM II with diabetic peripheral neuropathy 81777825 (SNOMED CT) 01/21 Active 01/21 Georgina Ruth Type 2 diabetes mellitus Benign Essential Hypertension 2022449 (SNOMED CT) 01/21 Active 01/21 Georgina Ruth Benign essential hypertension Wound infection/Ce llulitis of left foot L03.116 (ICD-10-CM ) 01/21 Active 01/21 Treva W Cellulitis of left lower limb MSSA infection 748519858 (SNOMED CT) 01/21 Active 01/21 Treva W Infection by methicillin sensitive Staphylococcus aureus Medications Medication Instructions Start Date Stop Date Generic Name ND Provider KEFLEX 500 MG ORAL CAPSULE one po qid CEPHALEXIN 13459393689 Radha Tucker APRN CEFTRIAXONE SODIUM 2 GM SOLR Rocephin 2GM IV Q24hrs - INPAT CEFTRIAXONE SODIUM 65966047488 Silvia Trujillo RN CEPHALEXIN 500 MG CAPS Take 1 by mouth 4 times a day CEPHALEXIN 08051305118 Adryan Skaggs MD CEFTRIAXONE SODIUM 2 GM SOLR Rocephin 2GM IV Q24hrs - INPAT CEFTRIAXONE SODIUM 29034274462 Yuni Christine SERTRALINE HCL 100 MG TABS 2 tablets daily SERTRALINE HCL 37105221319 Macarena Maria PRILOSEC OTC 20 MG TBEC Take 1 tablet by mouth daily OMEPRAZOLE MAGNESIUM 80538153296 Macarena Maria OXYCODONE HCL 5 MG TABS Take one (1) tablet by mouth four times a day as needed OXYCODONE HCL 38872275306 Macarena Maria NOVOLOG 100 UNIT/ML SUBCUTANEOUS SOLUTION INSULIN ASPART 43972706641 Macarena Maria LIPITOR 40 MG TABS Take 1 tablet by mouth daily ATORVASTATIN CALCIUM 81779200276 Macarena Maria LANTUS 100 UNIT/ML SOLN INSULIN GLARGINE 12329388819 Macarena Maria JARDIANCE 25 MG TABS Take 1 tablet by mouth daily in the AM EMPAGLIFLOZIN 32445191082 Macarena Maria ADULT ASPIRIN REGIMEN 81 MG ORAL TABLET DELAYED RELEASE Take 1 tablet by mouth daily ASPIRIN 40694276279 Macarena Maria Medications Administered No information available. [...]
--- OUTSIDE RECORDS SUMMARY | 2025-05-08 13:28 | XMS_ITS | Clinical Summary ---
Author Organization Healthcare Address [address] [place] [address] Care Team Providers Care Induction Machine Operator Name Role Phone Quyen Vincent DO Primary Care Provider [phone] Encounters Date Type Department Care Team Description 05/05/2025 Telephone [facility] Specialties [address] [place] [address] None, None from Last 3 Months Social History Tobacco Use Types Packs/Day Years [...] 10/12/2011 2:59 PM EST Plan of Treatment Upcoming Encounters Date Type Department Care Team (Late st Contact Info) Description 06/03/2025 8:[address] [facility] Medicine Specialties [address] [place] [address] Kerline Holcomb R, TECHNOLOGY ADVISOR [address] [place] [address] Health Maintenance Due Date Last Done Comments [facility]-Depression Screening 1970 [facility]-HIV Screening 1970 [facility]-Hepatitis C Screening 1970 [facility]-/Child/Adol SDOH Screenings 1970 [facility]- SDOH Screenings 1988 [facility]-Adult SDOH Screenings 1988 [facility]-DTaP,Tdap,and Td Vaccine s (1 - Tdap) 1989 [facility]-Hepatitis B Vaccines (1 of 3 - 19+ 3-dose series) 1989 CT Colonography 2015 Colonoscopy 2015 FIT-DNA 2015 FIT 2015 FOBT 2015 Sigmoidoscopy 2015 [facility]-Colorectal Cancer Screening 2015 [facility]-Pneumococcal Vaccine: 50 + Years (1 of 1 - PCV) 2020 [facility]-Zoster Vaccines (1 of 2) 2020 [id number]-88 Vaccine (3 - 2023- season) 2024 03/10/2021, 02/11/2021 [facility]-Hepatitis A Vaccines Aged Out 09/20/2018 No longer eligible based on patient's age to complete this topic [facility]-Influenza Vaccine Completed 08/17/2024 , 09/01/2020, 09/20/2018 HPV Vaccines Aged Out No longer eligi ble based on patient's age to complete this topic [facility]-HIB Vaccines Aged Out No longer e ligible based on patient's age to complete this topic [facility]-IPV Vaccines Aged Out No longer e ligible based on patient's age to complete this topic [facility]-Rotavirus Vaccines Aged Out No lo nger eligible based on patient's age to complete this topic [place] [address] [place] [address] [employer] MEDICAID Care Teams Induction Machine Operator Relationship Specialty Start Date End Date Quyen Vincent DO [address] [place] [address] [place] [address] PCP - General 04/09/21
--- OUTSIDE RECORDS SUMMARY | 2025-05-08 13:28 | XMS_ITS | Encounter Summary ---
Author Organization Healthcare Address [address] [place] [address] Care Team Providers Care Indian Trader Name Role Phone Quyen Vincent DO Primary Care Provider [phone] Encounter Details Date Type Department Care Team (Late st Contact Info) Description 05/05/2025 Telephone [facility] [address] [place] [address] None, None [address] [place] [address] Social History Tobacco Use Types Packs/Day Years [...] as of this encounter Miscellaneous Notes * Telephone Encounter - Sidra Marshall - 05/05/2025 3:02 PM EDT Clinical Concern/Question Reason for Call: Pt is calling us due to him being called by the referring office and telling him we could not reach this pt to schedule. I updated pts phone and sent this note to call him back to schedule. Best contact number: [phone] (mobile) Optimal time of day to reach caller: ANYTIME Additional comments/information from caller: Not Applicable Note: Please do not reply to this message. Follow-up communication and further actions as a result of this message need to be communicated with the patient directly, if the patient is not active onMyChart. If the patient is active on MyChart, they will receive notification of the communication/outcome via [employer]. documented in this encounter Plan of Treatment Upcoming Encounters Date Type Department Care Team (Late st Contact Info) Description 06/03/2025 8:00 AM EDT Consult [facility] Medicine Specialties [address] [place] [address] Aicha, November R, COMMUNICATIONS DEPARTMENT CHAIRPERSON [address] [place] [address] documented as of this encounter Visit Diagnoses Not on filedocumented in this encounter Care Teams Indian Trader Relationship Specialty Start Date End Date Quyen Vincent DO [address] [place] [address] PCP - General 04/09/21 documented as of this encounter
--- OUTSIDE RECORDS SUMMARY | 2025-05-08 13:29 | XMS_ITS | Data Portability ---
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 Role Phone QUYEN DELACRUZ Primary Care [...] FIDEL Duggan, [address], [address], [place], [address], 4 16:27:23 calprotect in, stool 2023 024 FIDEL Duggan, [address], [address], [place], [address], 4 07:16:57 O&P (ova & parasites) , stool 2023 024 FIDEL Duggan, [address], [address], [place], [address], 4 07:16:59 fecal fat, qualitativ e, stool 2023 024 FIDEL Urban, [address], [address], [place], [address], 4 07:16:56 ESR (erythrocy te sedimentat ion rate), blood 2023 024 FIDEL [facility], [address], [address], [place], [address], 4 11:15:28 C-reactive protein, quantitati ve, serum or plasma 2023 024 [email or web address] [facility], [address], [address], [place], [address], 4 15:39:56 H pylori Ag, stool 2023 024 FIDEL [facility], [address], [address], [place], [address], 4 08:28:00 pancreatic elastase, quant, stool 2023 024 FIDEL [facility], [address], [address], [place], [address], 4 07:16:58 phosphatid ylethanol, QN, blood 2023 024 FIDEL [facility], [address], [address], [place], [address], 4 11:15:23 HbA1c (hemoglobi n A1c), blood 2023 024 FIDEL [facility], [address], [address], [place], [address], 4 11:15:27 amylase + lipase, serum 2023 024 FIDEL [facility], [address], [address], [place], [address], 4 11:15:24 calcium, ionized, quant ISE, serum or plasma 2023 024 FIDEL [facility], [address], [address], [place], [address], 4 11:15:29 lipid panel, serum 2023 024 FIDEL [facility], [address], [address], [place], [address], 4 11:15:22 igg, subclass 4, quantitati ve, serum 2023 024 FIDEL [facility], [address], [address], [place], [address], 4 11:15:30 7-alpha hydroxy-4- cholesten- 3-one, QN, serum or plasma 2023 024 ANAMOSA [facility], [address], [facility] [address], [place], [address], 4 11:15:26 CMP, serum or plasma 2023 024 ANAMOSA [facility], [address], [facility] [address], [place], [address], 4 11:15:21 CMP, serum or plasma [address] [facility] (Lab Registration) , [address] [place] [address] [place], [address], 4 09:38:57 CBC w/ auto diff [address] (Lab Registration) , [address] [place] [address] [place], [address], 4 09:38:57 Referral None recorded. Procedures None recorded. Surgeries None recorded. Imaging CT, abdomen, w/ contrast 2023 024 [facility] (Central Scheduling), [address] [place] [address] [place], [address], 4 09:51:43 Medication Orders sucralfate 100 mg/mL oral suspension 2024 025 [email or web address] [facility]/Pharmacy #[id number], [address] [place], [address], 5 09:51:45 pantoprazo le 40 mg tablet,del ayed release 2023 024 [facility]/Pharmacy #3016, [address] [place], [address], 4 15:41:35 colestipol 1 gram tablet 2023 024 [facility]/Pharmacy #3016, [address] [place], [address], 11:07:18 gabapentin 300 mg capsule 2023 024 [facility]/Pharmacy #3016, [address] [place], [address], 10:21:21 primidone 50 mg tablet 2023 024 [facility]/Pharmacy #3016, [address] [place], [address], 10:05:59 Patient TargetsNo targets recorded. Patient Instructions Encounter Date Encounter Id Patient Instructions Last Modified By Organization Details Last Modified Time 01/14/2025 [id number] f/u 8 weeks [email or web address] Not available 21:53:52 Reason for Referral None Reported. Results Created Date Observation Date Name Description Value Unit Range Abnormal Flag Note LastModifiedBy Organization Detail LastModifiedTime 06/25/20 24 06/25/2024 CBC W/ AUTO DIFF WBC 7.54 K/uL 4.5-11 .5 Not Available [facility] (Pre-Op Clinic) [address] [place] [address] [place], [address], 06/25/2024 15:47:19 06/25/20 24 06/25/2024 CBC W/ AUTO DIFF RBC 5.37 M/uL 4.0-5. 4 Not Available [facility] (Pre-Op Clinic) [address] [place] [address] [place], [address], 06/25/2024 15:47:19 06/25/20 24 06/25/2024 CBC W/ AUTO DIFF HGB 14.9 g/dL 14.0-1 8.0 Not Available [facility] (Pre-Op Clinic) [address] [place] [address] [place], [address], 06/25/2024 15:47:19 06/25/20 24 06/25/2024 CBC W/ AUTO DIFF HCT 45.8 % 40-54 Not Available [facility] (Pre-Op Clinic) [address] [place] [address] [place], [address], 06/25/2024 15:47:19 06/25/20 24 06/25/2024 CBC W/ AUTO DIFF MCV 85.3 fL 80.0-1 00.0 Not Available [facility] (Pre-Op Clinic) [address] [place] [address] [place], [address], 06/25/2024 15:47:19 06/25/20 24 06/25/2024 CBC W/ AUTO DIFF MCH 27.7 pg 26.0-3 2.0 Not Available [facility] (Pre-Op Clinic) [address] [place] [address] [place], [address], 06/25/2024 15:47:19 06/25/20 24 06/25/2024 CBC W/ AUTO DIFF MCHC 32.5 g/dL 32.0-3 6.0 Not Available [facility] (Pre-Op Clinic) [address] [place] [address] [place], [address], 06/25/2024 15:47:19 06/25/20 24 06/25/2024 CBC W/ AUTO DIFF RDW 13.9 % 11.5-1 4.5 Not Available [facility] (Pre-Op Clinic) [address] [place] [address] [place], [address], 06/25/2024 15:47:19 06/25/20 24 06/25/2024 CBC W/ AUTO DIFF platelet count 166 K/uL 142-42 4 Not Available [facility] (Pre-Op [facility]) [address] [place] [address] [place], [address], 06/25/2024 15:47:19 06/25/20 24 06/25/2024 CBC W/ AUTO DIFF MPV 10.5 fL 6.8-10 .2 high Not Available [facility] (Pre-Op [facility]) [address] [place] [address] [place], [address], 06/25/2024 15:47:19 06/25/20 24 06/25/2024 CBC W/ AUTO DIFF neutrophil % 73.6 % 50-70 high Not Available [facility] (Pre-Op Clinic) [address] [place], [address], 06/25/2024 15:47:19 06/25/20 24 06/25/2024 CBC W/ AUTO DIFF lymphocyte % 14.6 % 18.0-4 2.0 low Not Available [facility] (Pre-Op [facility]) [address] [place], [address], 06/25/2024 15:47:19 06/25/20 24 06/25/2024 CBC W/ AUTO DIFF monocyte % 7.4 % 2.0-11 .0 Not Available [facility] (Pre-Op Clinic) [address] [place] [address] [place], [address], 06/25/2024 15:47:19 06/25/20 24 06/25/2024 CBC W/ AUTO DIFF eosinophil % 3.2 % 1.0-3. 0 high Not Available [facility] (Pre-Op [facility]) [address] [place], [address], 06/25/2024 15:47:19 06/25/20 24 06/25/2024 CBC W/ AUTO DIFF basophil % 0.8 % 0.0-2. 0 Not Available [facility] (Pre-Op [facility]) [address] [place], [address], 06/25/2024 15:47:19 06/25/20 24 06/25/2024 CBC W/ AUTO DIFF immature granulocytes % 0.4 % 0.0-0. 8 Not Available [facility] (Pre-Op [facility]) [address] [place], [address], 06/25/2024 15:47:19 06/25/20 24 06/25/2024 CBC W/ AUTO DIFF nucleated red blood cells % 0.0 % Not Available [facility] (Pre-Op [facility]) [address] [place], [address], 06/25/2024 15:47:19 06/25/20 24 06/25/2024 CBC W/ AUTO DIFF neutrophil # 5.55 K/uL Not Available [facility] (Pre-Op Clinic) [address] [place] [address] [place], [address], 06/25/2024 15:47:19 06/25/20 24 06/25/2024 CBC W/ AUTO DIFF lymphocyte # 1.10 K/uL Not Available [facility] (Pre-Op Clinic) [address] [place] [address] [place], [address], 06/25/2024 15:47:19 06/25/20 24 06/25/2024 CBC W/ AUTO DIFF monocyte # 0.56 K/uL Not Available [facility] (Pre-Op Clinic) [address] [place] [address] [place], [address], 06/25/2024 15:47:19 06/25/20 24 06/25/2024 CBC W/ AUTO DIFF eosinophil # 0.24 K/uL Not Available [facility] (Pre-Op [facility]) [address] [place] [address] [place], [address], 06/25/2024 15:47:19 06/25/20 24 06/25/2024 CBC W/ AUTO DIFF basophil # 0.06 K/uL Not Available [facility] (Pre-Op [facility]) [address] [place] [address] [place], [address], 06/25/2024 15:47:19 06/25/20 24 06/25/2024 CBC W/ AUTO DIFF immature gramulocytes # 0.03 K/uL Not Available [facility] (Pre-Op [facility]) [address] [place] [address] [place], [address], 06/25/2024 15:47:19 06/25/20 24 06/25/2024 CBC W/ AUTO DIFF nucleated red blood cells # 0.00 k/uL Not Available [facility] (Pre-Op [facility]) [address] [place], [address], 06/25/2024 15:47:19 06/25/20 24 06/25/2024 CBC W/ AUTO DIFF manual differential NO Not Available [facility] (Pre-Op [facility]) [address] [place] [address] [place], [address], 06/25/2024 15:47:19 06/25/20 24 06/25/2024 CBC W/ AUTO DIFF note Unles s other rey noted testi ng perfo rmed at: [facility] [address] [place] [address] Jose zamora MD Not Available [facility] (Pre-Op Clinic) [address] [place] [address] [place], [address], 06/25/2024 15:47:19 06/25/20 24 06/25/2024 COMP METAB OLIC PANEL sodium 141 mmol/ L 137-14 7 Not Available [facility] (Pre-Op [facility]) [address] [place] [address] [place], [address], 06/25/2024 17:12:06 06/25/20 24 06/25/2024 COMP METAB OLIC PANEL potassium 4.6 mmol/ L 3.5-5. 1 Not Available [facility] (Pre-Op [facility]) [address] [place] [address] [place], [address], 06/25/2024 17:12:06 06/25/20 24 06/25/2024 COMP METAB OLIC PANEL chloride 101 mmol/ L 98-110 Not Available [facility] (Pre-Op [facility]) [address] [place] [address] [place], [address], 06/25/2024 17:12:06 06/25/20 24 06/25/2024 COMP METAB OLIC PANEL carbon dioxide 23 mmol/ L 21-30 Not Available [facility] (Pre-Op [facility]) [address] [place], [address], 06/25/2024 17:12:06 06/25/20 24 06/25/2024 COMP METAB OLIC PANEL anion gap 17 mmol/ L 6-14 high Not Available [facility] (Pre-Op [facility]) [address] [place] [address] [place], [address], 06/25/2024 17:12:06 06/25/20 24 06/25/2024 COMP METAB OLIC PANEL glucose 312 mg/dL 70-115 high Not Available [facility] (Pre-Op [facility]) [address] [place] [address] [place], [address], 06/25/2024 17:12:06 06/25/20 24 06/25/2024 COMP METAB OLIC PANEL BUN 28 mg/dL 9-20 high Not Available [facility] (Pre[facility]Op [facility]) [address] [place] [address] [place], [address], 06/25/2024 17:12:06 06/25/20 24 06/25/2024 COMP METAB OLIC PANEL creatinine 1.1 mg/dL 0.5-1. 5 Not Available [facility] (Pre-Op [facility]) [address] [place] [address] [place], [address], 06/25/2024 17:12:06 06/25/20 24 06/25/2024 COMP METAB OLIC PANEL BUN/creatini ne ratio 25 ratio 10-20 high Not Available [facility] (Pre-Op [facility]) [address] [place] [address] [place], [address], 06/25/2024 17:12:06 06/25/20 24 06/25/2024 COMP METAB OLIC PANEL glom filtration rate 80 mL/mi n >60- Not Available [facility] (Pre-Op [facility]) [address] [place] [address] [place], [address], 06/25/2024 17:12:06 06/25/20 24 06/25/2024 COMP METAB OLIC PANEL osmolality (calculated) 310 mosmo l/kg 275-30 1 high OSMOL ALITY IS A CALCU LATIO N UTILI ZING THE SERUM /PLAS MA SODIU M, GLUCO SE AND UREA NITRO GEN (BUN) LEVEL S. FOR THE MOST ACCUR ATE RESUL T A MEASU RED SERUM OSMOL ALITY IS SUGDANDRE GUNND. Not Available [facility] (Pre-Op [facility]) [address] [place] [address] [place], [address], 06/25/2024 17:12:06 06/25/20 24 06/25/2024 COMP METAB OLIC PANEL total protein 6.9 g/dL 6.2-8. 2 Not Available [facility] (Pre-Op [facility]) [address] [place] [address] [place], [address], 06/25/2024 17:12:06 06/25/20 24 06/25/2024 COMP METAB OLIC PANEL albumin 4.6 g/dL 3.5-5. 0 Not Available [facility] (Pre[facility]Op [facility]) [address] [place] [address] [place], [address], 06/25/2024 17:12:06 06/25/20 24 06/25/2024 COMP METAB OLIC PANEL calcium 9.5 mg/dL 8.5-10 .8 Not Available [facility] (Pre-Op Clinic) [address] [place] [address] [place], [address], 06/25/2024 17:12:06 06/25/20 24 06/25/2024 COMP METAB OLIC PANEL bilirubin total 0.5 mg/dL 0.2-1. 3 Not Available [facility] (Pre-Op [facility]) [address] [place] [address] [place], [address], 06/25/2024 17:12:06 06/25/20 24 06/25/2024 COMP METAB OLIC PANEL AST (SGOT) 36 IU/L 17-59 Not Available [facility] (Pre-Op Clinic) [address] [place] [address] [place], [address], 06/25/2024 17:12:06 06/25/20 24 06/25/2024 COMP METAB OLIC PANEL ALT (SGPT) 27 IU/L 0-50 Pleas e note new refer ence inter farrah for ALT. Due to a recen t manuf actur er metho dolog y kiel hammond, the refer ence inter farrah for ALT is lower effec tive March 18, 2021. Not Available [facility] (Pre-Op [facility]) [address] [place] [address] [place], [address], 06/25/2024 17:12:06 06/25/20 24 06/25/2024 COMP METAB OLIC PANEL alk phosphatase 107 IU/L 38-126 Not Available [facility] (Pre-Op [facility]) [address] [place] [address] [place], [address], 06/25/2024 17:12:06 06/25/20 24 06/25/2024 COMP METAB OLIC PANEL note Unles s other rey noted testi ng perfo rmed at: [facility] [address] [place] [address] Jose zamora MD Not Available [facility] (Pre-Op [facility]) [address] [place] [address] [place], [address], 06/25/2024 17:12:06 08/15/20 24 08/16/2024 COMP. METAB OLIC PANEL (14) glucose 114 mg/dL 70-99 above high normal Not Available [facility] ([facility]) [address] [place], [address], 09/04/2024 11:15:21 08/15/20 24 08/16/2024 COMP. METAB OLIC PANEL (14) BUN 30 mg/dL 6-24 above high normal Not Available [facility] ([facility]) [address] [place], [address], 09/04/2024 11:15:21 08/15/20 24 08/16/2024 COMP. METAB OLIC PANEL (14) creatinine 1.15 mg/dL 0.76-1 .27 normal Not Available [facility] ([facility]) [address] [facility] [place], [address], 09/04/2024 11:15:21 08/15/20 24 08/16/2024 COMP. METAB OLIC PANEL (14) eGFR 76 mL/mi n/1.7 3 >59 normal Not Available [facility] ([facility]) [address] [place], [address], 09/04/2024 11:15:21 08/15/20 24 08/16/2024 COMP. METAB OLIC PANEL (14) BUN/creatini ne ratio 26 9-20 above high normal Not Available [facility] ([facility]) [address] [place], [address], 09/04/2024 11:15:21 08/15/20 24 08/16/2024 COMP. METAB OLIC PANEL (14) sodium 145 mmol/ L 134-14 4 above high normal Not Available [facility] ([facility]) [address] [place], [address], 09/04/2024 11:15:21 08/15/20 24 08/16/2024 COMP. METAB OLIC PANEL (14) potassium 4.6 mmol/ L 3.5-5. 2 normal Not Available [facility] ([facility]) [address] [place], [address], 09/04/2024 11:15:21 08/15/20 24 08/16/2024 COMP. METAB OLIC PANEL (14) chloride 105 mmol/ L 96-106 normal Not Available [facility] ([facility]) [address] [place], [address], 09/04/2024 11:15:21 08/15/20 24 08/16/2024 COMP. METAB OLIC PANEL (14) carbon dioxide, total 24 mmol/ L 20-29 normal Not Available [facility] ([facility]) [address] [facility] [place], [id number], 09/04/2024 11:15:21 08/15/20 24 08/16/2024 COMP. METAB OLIC PANEL (14) calcium 9.3 mg/dL 8.7-10 .2 normal Not Available [facility] ([facility]) [address] [facility] [place], [address], 09/04/2024 11:15:21 08/15/20 24 08/16/2024 COMP. METAB OLIC PANEL (14) protein, total 6.5 g/dL 6.0-8. 5 normal Not Available [facility] ([facility]) [address] [facility] [place], [address], 09/04/2024 11:15:21 08/15/20 24 08/16/2024 COMP. METAB OLIC PANEL (14) albumin 4.3 g/dL 3.8-4. 9 normal Not Available [facility] ([facility]) [address] [facility] [place], [address], 09/04/2024 11:15:21 08/15/20 24 08/16/2024 COMP. METAB OLIC PANEL (14) globulin, total 2.2 g/dL 1.5-4. 5 Not Available [facility] ([facility]) [address] [facility] [place], [address], 09/04/2024 11:15:21 08/15/20 24 08/16/2024 COMP. METAB OLIC PANEL (14) bilirubin, total 0.8 mg/dL 0.0-1. 2 normal Not Available [facility] ([facility]) [address] [facility] [place], [address], 09/04/2024 11:15:21 08/15/20 24 08/16/2024 COMP. METAB OLIC PANEL (14) alkaline phosphatase 136 IU/L 44-121 above high normal Not Available [facility] ([facility]) [address] [facility], [place], [address], 09/04/2024 11:15:21 08/15/20 24 08/16/2024 COMP. METAB OLIC PANEL (14) AST (SGOT) 25 IU/L 0-40 normal Not Available [facility] ([facility]) [address] [facility], [place], [address], 09/04/2024 11:15:21 08/15/20 24 08/16/2024 COMP. METAB OLIC PANEL (14) ALT (SGPT) 18 IU/L 0-44 normal Not Available [facility] ([facility]) [address] [place], [address], 09/04/2024 11:15:21 08/15/20 24 08/16/2024 LIPID PANEL cholesterol, total 132 mg/dL 100-19 9 normal Not Available [facility] ([facility]) [address] [place], [address], 09/04/2024 11:15:22 08/15/20 24 08/16/2024 LIPID PANEL triglyceride s 89 mg/dL 0-149 normal Not Available [facility] ([facility]) [address] [place], [address], 09/04/2024 11:15:22 08/15/20 24 08/16/2024 LIPID PANEL HDL cholesterol 49 mg/dL >39 normal Not Available [facility] ([facility]) [address] [place], [address], 09/04/2024 11:15:22 08/15/20 24 08/16/2024 LIPID PANEL VLDL cholesterol arturo 17 mg/dL 5-40 Not Available [facility] ([facility]) [address] [place], [address], 09/04/2024 11:15:22 08/15/20 24 08/16/2024 LIPID PANEL LDL chol calc ([facility]) 66 mg/dL 0-99 Not Available [facility] ([facility]) [address] [facility], [place], [address], 09/04/2024 11:15:22 08/15/20 24 08/16/2024 LIPID PANEL LDL calc comment: [employer] Not Available [facility] ([facility]) [address] [facility], [place], [address], 09/04/2024 11:15:22 08/15/20 24 08/20/2024 PHOSP HATID YLETH ANOL (PETH ) phosphatidyl ethanol NEGATI VE Not Available [facility] ([facility]) [address] [facility], [place], [address], 09/04/2024 11:15:23 08/15/20 24 08/20/2024 PHOSP HATID [...] e becky cteri stics deter mined by [employer]. It has not been clear ed or appro caity by the Food and Drug Admin istra tion. Not Available [facility] ([facility]) [address] [facility], [place], [address], 09/04/2024 11:15:23 08/15/20 24 08/16/2024 CAMPOS+L IPASE amylase 113 U/L 31-110 above high normal Not Available [facility] ([facility]) [address] [facility], [place], [address], 09/04/2024 11:15:24 08/15/20 24 08/16/2024 CAMPOS+L IPASE lipase 24 U/L 13-78 normal Not Available [facility] ([facility]) [address] [facility], [place], [address], 09/04/2024 11:15:24 08/15/20 24 09/04/2024 7ALPH AC4 [id number] 46 NG/mL Refer ence Inter farrah: 1.8-5 7 ng/mL Serum 7Alph aC4 is a surro gate for stool bile acids . [place] jose guadalupe holley ntrat ions (> 57 [...] e becky cteri stics deter mined by [employer]. It has not been clear ed or appro caity by the Food and Drug Admin istra tion. Not Available [facility] [address] [facility], [place], [address], 09/04/2024 11:15:26 08/15/20 24 08/16/2024 HEMOG LOBIN A1C hemoglobin A1C 7.4 % 4.8-5. 6 above high normal Predi abete s: 5.7 - 6.4 Diabe siobhan: >6.4 Glyce gilma contr ol for adult s with diabe siobhan: <7.0 Not Available [facility] ([facility]) [address] [facility], [place], [address], 09/04/2024 11:15:27 08/15/20 24 08/16/2024 SEDIM ENTAT ION RATE- WESTE RGREN sedimentatio n rate-westerg lori 8 mm/HR 0-30 normal Not Available [facility] ([facility]) [address] [place], [address], 09/04/2024 11:15:28 08/15/20 24 08/17/2024 CALCI UM, IONIZ ED, SERUM calcium, ionized, serum 5.0 mg/dL 4.5-5. 6 Not Available [facility] ([facility]) [address] [facility], [place], [address], 09/04/2024 11:15:29 08/15/20 24 08/16/2024 IGG, SUBCL ASS 4 IgG, subclass 4 17 mg/dL 2-96 Not Available [facility] ([facility]) [address] [place], [address], 09/04/2024 11:15:30 08/15/20 24 08/16/2024 C-SOHA CTIVE PROTE IN, QUANT C-reactive protein, quant 32 mg/L 0-10 above high normal Not Available [facility] ([facility]) [address] [place], [address], 09/04/2024 11:15:31 08/15/20 24 08/16/2024 SPECI MEN STATU S REPOR T specimen status report TNP Test not perfo rmed. No stool speci men recei caity. TEST: 86132 [id number] Calpr otect in, Fecal 59817 6 Fecal Fat,Q l (Rfx- Qt) Stool [id number] 4 H. pylor i Stool Ag, EIA 65338 3 Ova + Dennis ite Exam [id number] 4 Pancr eatic Elast ase, Fecal Not Available [facility] ([facility]) [address] [place], [address], 09/04/2024 11:15:32 08/19/20 24 08/22/2024 GI PROFI LE, STOOL , PCR campylobacte r Not Detect ed not detect ed Not Available [facility] ([facility]) [address] [place], [address], 08/22/2024 16:14:29 08/19/20 24 08/22/2024 GI PROFI LE, STOOL , PCR C difficile toxin A/B Detect ed not detect ed abnormal Not Available [facility] ([facility]) [address] [place], [address], 08/22/2024 16:14:29 08/19/20 24 08/22/2024 GI PROFI LE, STOOL , PCR plesiomonas shigelloides Not Detect ed not detect ed Not Available [facility] ([facility]) [address] [place], [address], 08/22/2024 16:14:29 08/19/20 24 08/22/2024 GI PROFI LE, STOOL , PCR salmonella Not Detect ed not detect ed Not Available [facility] ([facility]) [address] [place], [address], 08/22/2024 16:14:29 08/19/20 24 08/22/2024 GI PROFI LE, STOOL , PCR vibrio Not Detect ed not detect ed Not Available [facility] ([facility]) [address] [place], [address], 08/22/2024 16:14:29 08/19/20 24 08/22/2024 GI PROFI LE, STOOL , PCR vibrio cholerae Not Detect ed not detect ed Not Available [facility] ([facility]) [address] [place], [address], 08/22/2024 16:14:29 08/19/20 24 08/22/2024 GI PROFI LE, STOOL , PCR yersinia enterocoliti ca Not Detect ed not detect ed Not Available [facility] ([facility]) [address] [place], [address], 08/22/2024 16:14:29 08/19/20 24 08/22/2024 GI PROFI LE, STOOL , PCR enteroaggreg ative E coli Not Detect ed not detect ed Not Available [facility] ([facility]) [address] [place], [address], 08/22/2024 16:14:29 08/19/20 24 08/22/2024 GI PROFI LE, STOOL , PCR enteropathog enic E coli Not Detect ed not detect ed Not Available [facility] ([facility]) [address] [place], [address], 08/22/2024 16:14:29 08/19/20 24 08/22/2024 GI PROFI LE, STOOL , PCR enterotoxige gabe E coli Not Detect ed not detect ed Not Available [facility] ([facility]) [address] [place], [address], 08/22/2024 16:14:29 08/19/20 24 08/22/2024 GI PROFI LE, STOOL , PCR shiga-toxin- producing E coli Not Detect ed not detect ed Not Available [facility] ([facility]) [address] [place], [address], 08/22/2024 16:14:29 08/19/20 24 08/22/2024 GI PROFI LE, STOOL , PCR E coli O157 Not applic able not detect ed Not Available [facility] ([facility]) [address] [place], [address], 08/22/2024 16:14:29 08/19/20 24 08/22/2024 GI PROFI LE, STOOL , PCR shigella/ent eroinvasive E coli Not Detect ed not detect ed Not Available [facility] ([facility]) [address] [place], [address], 08/22/2024 16:14:29 08/19/20 24 08/22/2024 GI PROFI LE, STOOL , PCR cryptosporid ium Not Detect ed not detect ed Not Available [facility] ([facility]) [address] [place], [address], 08/22/2024 16:14:29 08/19/20 24 08/22/2024 GI PROFI LE, STOOL , PCR cyclospora cayetanensis Not Detect ed not detect ed Not Available [facility] ([facility]) [address] [place], [address], 08/22/2024 16:14:29 08/19/20 24 08/22/2024 GI PROFI LE, STOOL , PCR entamoeba histolytica Not Detect ed not detect ed Not Available [facility] ([facility]) [address] [place], [address], 08/22/2024 16:14:29 08/19/20 24 08/22/2024 GI PROFI LE, STOOL , PCR giardia lamblia Not Detect ed not detect ed Not Available [facility] ([facility]) [address] [place], [address], 08/22/2024 16:14:29 08/19/20 24 08/22/2024 GI PROFI LE, STOOL , PCR adenovirus F 40/41 Not Detect ed not detect ed Not Available [facility] ([facility]) [address] [facility], [place], [address], 08/22/2024 16:14:29 08/19/20 24 08/22/2024 GI PROFI LE, STOOL , PCR astrovirus Not Detect ed not detect ed Not Available [facility] ([facility]) [address] [facility], [place], [address], 08/22/2024 16:14:29 08/19/20 24 08/22/2024 GI PROFI LE, STOOL , PCR norovirus GI/gii Detect ed not detect ed abnormal Not Available [facility] ([facility]) [address] [facility], [place], [address], 08/22/2024 16:14:29 08/19/20 24 08/22/2024 GI PROFI LE, STOOL , PCR rotavirus A Not Detect ed not detect ed Not Available [facility] ([facility]) [address] [facility], [place], [address], 08/22/2024 16:14:29 08/19/20 24 08/22/2024 GI PROFI LE, STOOL , PCR sapovirus Not Detect ed not detect ed Not Available [facility] ([facility]) [address] [facility], [place], [address], 08/22/2024 16:14:29 08/19/20 24 08/20/2024 JACQUELINE EN AUTHO RIZAT ION written authorizatio n Commen t Jacqueline en Autho rizat ion Recei caity. Autho rizat ion recei caity from ORIGI NAL ORDER 08-20 Logge d by Roseanne fuentes Not Available [facility] ([facility]) [address] [facility], [place], [address], 08/22/2024 16:14:30 08/19/20 24 08/22/2024 FECAL FAT,Q L (RFX- QT) STOOL fats, neutral NORMAL Sandee l (<60 Dropl ets/H PF) Not Available [facility] ([facility]) [address] [facility], [place], [address], 08/29/2024 07:16:55 08/19/20 24 08/22/2024 FECAL FAT,Q L (RFX- QT) STOOL fats, total NORMAL Sandee l (<100 Dropl ets/H PF) Not Available [facility] ([facility]) [address] [place], [address], 08/29/2024 07:16:55 08/19/20 24 08/21/2024 CALPR OTECT IN, FECAL calprotectin , fecal 54 ug/g 0-120 Holley ntrat ion Inter preta tion Follo w-Up < 5 - 50 ug/g Sandee l None >50 -120 ug/g Borde rline Re-ev aluat e in 4-6 weeks >120 ug/g Abnor mal Repea t as clini roni indic ated Not Available [facility] ([facility]) [address] [facility], [place], [address], 08/29/2024 07:16:57 08/19/20 24 08/21/2024 PANCR EATIC ELAST ASE, FECAL pancreatic elastase, fecal >800 ug_el ast./ g >200 Sever e Pancr eatic Insuf ficie ncy: <100 Moder ate Pancr eatic Insuf ficie ncy: 100 - 200 Sandee l: >200 Not Available [facility] ([facility]) [address] [facility], [place], [address], 08/29/2024 07:16:58 08/19/20 24 08/28/2024 OVA + DENNIS ITE EXAM ova + parasite exam FINAL REPORT These resul ts were obtai hanh using wet prepa ratio n(s) and trich oliver stain ed smear . This test does not inclu de testi ng for Crypt ospor idium parvu m, Cyclo spora , or Micro spori tracy. Not Available [facility] ([facility]) [address] [facility], [place], [address], 08/29/2024 07:16:59 08/19/20 24 08/28/2024 OVA + DENNIS ITE EXAM result 1 COMMEN T No ova, cysts , or dennis ites seen. One negat farnaz speci men does not rule out the possi bilit y of a dennis itic infec tion. Not Available [facility] ([facility]) [address] [facility], [place], [address], 08/29/2024 07:16:59 09/25/2009/25/2024 GASTR OINTE ELISABET L PANEL ,STL PCR campylobacte r NOT DETECT ED not detect ed CAMPY LOBAC TER AND CRYPT OSPOR IDIUM RESUL TS WILL BE CONFI RMED BEFOR E FINAL RESUL TS REPOR JOSE GUADALUPE. Not Available [facility] ([facility]) [address] [facility], [place], [address], 09/25/2024 15:27:36 09/25/20 24 09/25/2024 GASTR OINTE ELISABET L PANEL ,STL PCR C difficile toxin A/B DETECT ED not detect ed delta Not Available [facility] ([facility]) [address] [facility], [place], [address], 09/25/2024 15:27:36 09/25/20 24 09/25/2024 GASTR OINTE ELISABET L PANEL ,STL PCR plesiomonas shigelloides NOT DETECT ED not detect ed Not Available [facility] ([facility]) [address] [facility], [place], [address], 09/25/2024 15:27:36 09/25/20 24 09/25/2024 GASTR OINTE ELISABET L PANEL ,STL PCR salmonella NOT DETECT ED not detect ed Not Available [facility] ([facility]) [address] [facility], [place], [address], 09/25/2024 15:27:36 09/25/20 24 09/25/2024 GASTR OINTE ELISABET L PANEL ,STL PCR vibrio NOT DETECT ED not detect ed Not Available [facility] ([facility]) [address] [facility], [place], [address], 09/25/2024 15:27:36 09/25/20 24 09/25/2024 GASTR OINTE ELISABET L PANEL ,STL PCR vibrio cholerae NOT DETECT ED not detect ed Not Available [facility] ([facility]) [address] [facility], [place], [address], 09/25/2024 15:27:36 09/25/20 24 09/25/2024 GASTR OINTE ELISABET L PANEL ,STL PCR yersinia enterocoliti ca NOT DETECT ED not detect ed Not Available [facility] ([facility]) [address] [facility], [place], [address], 09/25/2024 15:27:36 09/25/20 24 09/25/2024 GASTR OINTE ELISABET L PANEL ,STL PCR enteroaggreg ative E coli NOT DETECT ED not detect ed Not Available [facility] ([facility]) [address] [facility], [place], [address], 09/25/2024 15:27:36 09/25/20 24 09/25/2024 GASTR OINTE ELISABET L PANEL ,STL PCR enteropathog enic E coli NOT DETECT ED not detect ed Not Available [facility] ([facility]) [address] [facility], [place], [address], 09/25/2024 15:27:36 09/25/20 24 09/25/2024 GASTR OINTE ELISABET L PANEL ,STL PCR enterotoxige gabe E coli lt/st NOT DETECT ED not detect ed Not Available [facility] ([facility]) [address] [facility], [place], [address], 09/25/2024 15:27:36 09/25/20 24 09/25/2024 GASTR OINTE ELISABET L PANEL ,STL PCR shiga-toxin- producing E coli NOT DETECT ED not detect ed Not Available [facility] ([facility]) [address] [facility], [place], [address], 09/25/2024 15:27:36 09/25/20 24 09/25/2024 GASTR OINTE ELISABET L PANEL ,STL PCR E coli O157 N/A not detect ed Not Available [facility] ([facility]) [address] [facility], [place], [address], 09/25/2024 15:27:36 09/25/20 24 09/25/2024 GASTR OINTE ELISABET L PANEL ,STL PCR shigella/ent eroinvasive E coli NOT DETECT ED not detect ed Not Available [facility] ([facility]) [address] [facility], [place], [address], 09/25/2024 15:27:36 09/25/20 24 09/25/2024 GASTR OINTE ELISABET L PANEL ,STL PCR cryptosporid ium NOT DETECT ED not detect ed Not Available [facility] ([facility]) [address] [facility], [place], [address], 09/25/2024 15:27:36 09/25/20 24 09/25/2024 GASTR OINTE ELISABET L PANEL ,STL PCR cyclospora cayetanensis NOT DETECT ED not detect ed Not Available [facility] ([facility]) [address] [facility], [place], [address], 09/25/2024 15:27:36 09/25/20 24 09/25/2024 GASTR OINTE ELISABET L PANEL ,STL PCR entamoeba histolytica NOT DETECT ED not detect ed Not Available [facility] ([facility]) [address] [facility], [place], [address], 09/25/2024 15:27:36 09/25/20 24 09/25/2024 GASTR OINTE ELISABET L PANEL ,STL PCR giardia lamblia NOT DETECT ED not detect ed Not Available [facility] ([facility]) [address] [facility], [place], [address], 09/25/2024 15:27:36 09/25/20 24 09/25/2024 GASTR OINTE ELISABET L PANEL ,STL PCR adenovirus F 40/41 NOT DETECT ED not detect ed Not Available [facility]) [address] [facility], [place], [address], 09/25/2024 15:27:36 09/25/20 24 09/25/2024 GASTR OINTE ELISABET L PANEL ,STL PCR astrovirus NOT DETECT ED not detect ed Not Available [facility] ([facility]) [address] [facility], [place], [address], 09/25/2024 15:27:36 09/25/20 24 09/25/2024 GASTR OINTE ELISABET L PANEL ,STL PCR norovirus GI/gii NOT DETECT ED not detect ed Not Available [facility] ([facility]) [address] [facility], [place], [address], 09/25/2024 15:27:36 09/25/20 24 09/25/2024 GASTR OINTE ELISABET L PANEL ,STL PCR rotavirus A NOT DETECT ED not detect ed Not Available [facility]) [address] [facility], [place], [address], 09/25/2024 15:27:36 09/25/20 24 09/25/2024 GASTR OINTE [...] rever se trans cript ase Not Available [facility] ([facility]) [address] [facility], [place], [address], 09/25/2024 15:27:36 09/25/20 24 09/25/2024 C DIFFI CILE TOX/A G SCREE N specimen consistency LIQUID STOOL Not Available [facility] ([facility]) [address] [facility], [place], [address], 09/25/2024 15:28:43 09/25/20 24 09/25/2024 C DIFFI [...] cytes or PCR testi ng. Not Available [facility] ([facility]) [address], [place], [address], 09/25/2024 15:28:43 09/25/20 24 09/25/2024 C DIFFI CILE TOX/A G SCREE N C.difficile antigen NEGATI VE negati ve Not Available [facility] ([facility]) [address] [facility], [place], [address], 09/25/2024 15:28:43 09/25/20 24 09/25/2024 C DIFFI CILE TOX/A G SCREE N C diff internal control PASS PASS Not Available [facility] ([facility]) [address] [facility], [place], [address], 09/25/2024 15:28:43 09/25/20 24 10/03/2024 PATHO LOGY SPECI MEN pathology specimen SEE JEROME Castillo RPT Not Available [facility] ([facility]) [address] [facility], [place], [address], 10/03/2024 09:18:07 Result Notes None recorded. Problems Name Problem SNOMED Code Status Onset Date Resolution Date Notes Provider Name and Address Organization Details Recorded Time Allergic rhinitis 87341785 Active 2016 Allergic rhinitis Not Available [facility] 3 08:18:40 Dyspnea 693011308 Active 2016 Not Available [facility] 08:18:40 Cough 99176477 Active 2016 Cough Not Available [facility] 3 08:18:40 Chronic constipat ion with overflow 77864044 Active 2016 Overflow diarrhea Not Available [facility] 3 08:18:40 Cervical spondylos is without myelopath y 334812489 Active 2020 Not Available [facility] 3 08:18:40 Heartburn 86838333 Active 2017 Heartburn Not Available [facility] 08:18:40 Restricti ve lung disease 56599730 Active 2016 Not Available [facility] 3 08:18:40 Cerebrova scular accident 469052530 Active 2014 Stroke Not Available [facility] 3 08:18:40 Finding reported by subject or history provider 544013892 Active 2014 Not Available [facility] 3 08:18:40 Paresthes ia 88134086 Active 2020 Not Available [facility] 3 08:18:40 Abdominal pain 15874367 Active 2017 Abdominal pain Not Available [facility] 3 08:18:40 Gastroeso phageal reflux disease 375310136 Active 2016 Gastroeso phageal reflux disease Not Available [facility] 3 08:18:40 Irritable bowel syndrome 12375095 Active 2017 Irritable bowel syndrome Not Available [facility] 3 08:18:40 Asthma 921354924 Active 2016 Asthma Not Available [facility] 3 08:18:40 Diarrhea 35743781 Active 2016 Diarrhea Not Available [facility] 3 08:18:40 Constipat ion 83579502 Active 2016 Constipat ion Not Available [facility] 3 08:18:40 Neuralgia 69713010 Active 2022 Georgina Marshall DO [address] , [place], [address] , [place] - [facility] - [place] & [place] 3 08:49:54 Left foot drop 98592725393 9105 Active 2022 Georgina Marshall DO [address], [place], [address] , [place] [facility] [place] & [place] 3 08:49:58 Forgetful 24545869 Active 2022 Georgina Marshall DO [address], [place], [address] , [place] - [facility] & [place] 3 11:24:50 Irritable bowel syndrome with diarrhea 413819456 Active 2022 Earlene Kamara NP [address], [address], [place], [address] , [place] [facility] [place] & [place] 15:53:25 Essential tremor 082273867 Active 2023 Georgina Marshall DO [address], [place], [address] , [place] [facility] & [place] 09:58:42 Problem Notes None recorded. Procedures Surgical History Date Name Laterality Status Provider Name and Address Organization Details Recorded Time 01/14/20 25 lumbar spinal fusion completed Khushi Kapoor [place] [facility] & [place] 01/14/2025 13:17:57 08/15/20 24 Procedure Note completed Khushi Mariedwell [place] [facility] & [place] 08/15/2024 11:59:29 11/27/19 24 Cardiovascular Surgery completed Prema Dominguez [place] - [facility] - [place] & [place] 06/25/2024 13:58:00 07/07/20 23 placement of stent in coronary artery completed Earlene Kamara NP [address], [address], [place], [address], [place] [facility] & [place] 07/13/2023 16:02:11 11/27/19 23 Cardiovascular Surgery completed Prema ERAZO - [facility] & [place] 06/25/2024 13:58:00 06/27/20 17 colonoscopy completed DO [address], [place], [address], [place] [facility] [place] [facility] & [place] 01/23/2023 08:43:26 08/27/20 16 operation on lumbar spine completed DO [address], [place], [address], [place] [facility] & [place] 01/23/2023 08:44:23 09/27/20 14 herniotomy of bilateral inguinal hernias completed DO [address], [place], [address], [place] [facility] & [place] 01/23/2023 08:42:59 02/26/20 14 placement of stent in coronary artery completed Georgina Marshall DO [address], [place], [address], [facility] - [facility] & [place] 01/23/2023 08:43:13 11/27/19 14 Back Surgery completed Prema Dominguez [place] - [facility] & [place] 06/25/2024 13:43:45 11/27/19 13 Cholecystectomy completed Georgina Marshall DO [address], [place], [address], [facility] - [facility] & [place] 01/23/2023 08:42:23 11/27/19 12 arthroplasty of knee completed DO Kannan [address], [place], [address], [place] - [facility] & [place] 01/23/2023 08:42:13 11/27/19 10 Elbow arthroscopy completed DO Kannan [address], [place], [address], [place] - [facility] & [place] 01/23/2023 08:42:40 EGD/Endoscopy completed Earlene Kamara NP [address] [place] [address], [address], [place], [address], [facility] - [facility] & [place] 07/13/2023 16:02:36 Imaging Results None recorded. Procedure Notes None recorded. Medical Equipment None Reported. Allergies Allergen ID Allergen Name Allergen Category Reaction Reaction Severity Criticality Documentation Date Start Date Code Code System Note Provider Name and Address Organization Details Recorded Time 41442 Penicilli n Not available Not available Not available Not available 08/29/2022 55490 RxNorm React ion: Unkno wn, sever ity: Unkno wn Not Available [facility] 02:56:23 31248 Product containin g penicilli n (product) medicatio n Not available Not available Not available 01/23/2023 81353 8001 SNOMED Agnes jansen, [place] - [facility] & [place] 10:57:42 Medications Name Sig Start Date Stop [...] Available Not Available Not Available Dexcom G6 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 01/23 completed Not [...] Last Updated DateTime 187.96 cm 30.2 kg/m2 878486. 57 g 98 % 98 % 98.1 [degF] 69 /min 72 /min 107 mm[Hg] 65 mm[Hg] Khushi Kapoor [place] - [place] [facility] & [place] 5 13:17:21 Date Recorded Body height Body mass index (BMI) Body weight Systolic blood pressure Diastolic blood pressure Provider Name and Address Organization Details Last Updated DateTime 03/01/2024 187.96 cm 29.9 kg/m2 123174.0 2 g 128 mm[Hg] 78 mm[Hg] Agnes Holman [facility] & [place] 4 09:40:37 Date Recorded Body height Body mass index (BMI) Body weight Body temperature Oxygen saturation Oxygen saturation in Arterial blood by Pulse oximetry Heart rate Provider Name and Address Organization Details Last Updated DateTime 4 187.96 cm 29.9 kg/m2 139229. 02 g 97.4 [degF] 97 % 97 % 76 /min Prema Dominguez [facility] & [place] 4 13:57:45 Date Recorded Body height Body mass index (BMI) Body weight Body temperature Oxygen saturation Oxygen saturation in Arterial blood by Pulse oximetry Heart rate Heart rate Systolic blood pressure Diastolic blood pressure Provider Name and Address Organization Details Last Updated DateTime 4 187.96 cm 31.3 kg/m2 459712. 38 g 98.4 [degF] 99 % 99 % 63 /min 68 /min 181 mm[Hg] 97 mm[Hg] Ralph Maya [facility] & [place] 4 10:20:26 Date Recorded Body height Body mass index (BMI) Body weight Heart rate Heart rate Oxygen saturation Oxygen saturation in Arterial blood by Pulse oximetry Body temperature Systolic blood pressure Diastolic blood pressure Provider Name and Address Organization Details Last Updated DateTime 4 187.96 cm 31.2 kg/m2 037809. 02 g 64 /min 66 /min 97 % 97 % 97.9 [degF] 105 mm[Hg] 66 mm[Hg] Khushi Kapoor [facility] & [place] 4 14:07:03 Social History Question Answer Notes LastModified by Organizat ion Details LastModified Time Tobacco Smoking Status Former Smoker Not Available [facility] 01/12/2023 08:18:40 Do You Have An Advance Directive? No [email or web address] Information not available 06/25/2024 Are You Blind Or Do You Have Difficulty Seeing? No [email or web address] Information not available 06/25/2024 What Is Your Level Of Caffeine Consumption? Occasional 2 Cups Coffee [email or web address] Information not available 01/23/2023 When Did You Quit Smoking? 16+yearssincel luz [email or web address] Information not available 01/23/2023 What Was The Date Of Your Most Recent Tobacco Screening? 07/09/2023 [email or web address] Information not available 06/25/2024 Do You Have Any Pets? No Information not available 01/23/2023 What Is Your Relationship Status? Lives With Spouse, House [email or web address] Information not available 01/23/2023 Are You Sexually Active? Yes Information not available 01/23/2023 At What Age Did You Start Smoking Tobacco? 17 Information not available 01/23/2023 Are You Currently In School? No Some College Information not available 01/23/2023 Sex: Unknown Functional Status Question Answer Note LastModified by Organizat ion Details LastModified Time Do you use any illicit or recreational drugs? No [email or web address] Information not available 01/23/2023 Do you or have you ever used any other forms of tobacco or nicotine? No [email or web address] Information not available 08/15/2024 What is your level of alcohol consumption? Occasional [email or web address] Information not available 06/25/2024 Do you or have you ever used smokeless tobacco? 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 No drives Information not available 01/23/2023 Are you able to care for yourself? Yes Information not available 01/23/2023 What is your exercise level? Occasional [email or web address] Information not available 06/25/2024 Mental Status Question Answer Note LastModified by Organization D etails LastModified Time Do you feel stressed (tense, restless, nervous, or anxious, or unable to sleep at night)? [id number] [email or web address] Information not available 06/25/2024 Family History Relationship Description Onset Age of this Age Resolved Age Notes LastModified by Organization Details LastModified Time Mother Diabetes mellitus [email or web address] Not available 2024 12:55:05 Mother Hypertensive disorder [email or web address] Not available 2022 08:40:08 Mother Kidney disease [email or web address] Not available 2022 08:40:17 Mother Headache [email or web address] Not availabl e 01/23/2023 08:40:26 Father Diabetes [...] SNOMED-CT Code Diagnosis ICD10 Code Diagnosis Note [id number] Georgina Marshall DO [facility] [address] [facility] [place] [address] 01/23/2023 10:25:40 01/23/2023 11:28:47 Cervical spondylosis without myelopathy 560730727 M47.812 Chronic condition that is stable. Continue with gabapentin at the current dose. He does not need refills today. Neuralgia 44187025 M79.2 Chronic condition that is stable. Continue with gabapentin at the current dose. Left foot drop 743376529 1 33313 M21.372 Chronic condition that is stable. No current therapy or equipment needs. Forgetful 80914682 R41.3 New issue with increased lack of focus and concentrat ion. He has poor sleep which I suspect is a major factor. Will check labs today. If normal consider increasing his gabapentin dose to 800mg qhs to see if that will afford him a more restful night. [id number] Earlene Kamara NP [address] [address] 07/12/2023 14:21:48 07/17/2023 12:16:12 Heartburn 31465063 R12 Occasional symptoms at this time. Diarrhea 80131979 R19.7 Several month history of worsening diarrhea [...] history, consider colonoscop y in 1 year. [id number] Georgina Marshall DO ZZ [facility]rology [address] [facility],[address] [place] [address] 03/01/2024 09:36:06 03/01/2024 10:04:03 Cervical spondylosis without myelopathy 446398245 M47.812 Chronic condition that is stable. Continue with gabapentin at the current dose. He does need refills today. Neuralgia 19628521 M79.2 Chronic condition that is stable. Continue with gabapentin at the current dose. He does need refills today. Left foot drop [id number] 1 06435 M21.372 Chronic condition that is stable. No current therapy or equipment needs. Essential tremor 0047275 09 G25.0 New tremor in the last year. 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 He does find this socially embarrassi ng. We discussed primidone and propranolo l options. He was most comfortabl e with primidone. He is educated on how to take this medication and potential side effects. Will start a low dose and he will call with an update. [id number] LIVE [facility] [address] [place] [address] [address] [place] [address] 06/25/2024 13:01:20 06/25/2024 14:24:50 Pancreatitis [id number] K85.90 patient developed acute left flank pain about a week after he had a heart stent placed in April. He was seen in the ED and [place] at which time he had elevated lipase [...] develop fever or worsening abdominal pain, n/v. 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 History of cholecystectomy 570680847 Z90.49 Screening for malignant neoplasm of colon 815247203 Z12.11 [id number] QUIANA MART Therapeuvic ic Intervent ions at [address] [place] [address] 09/10/2024 12:22:30 09/10/2024 15:49:54 [id number] AMINTA BARRETT NP [facility] [address] [address] 11/05/2024 13:48:49 11/05/2024 15:15:24 Chronic pancreatitis 059280048 K86.1 Diarrhea 45980292 R19.7 Bile acid malabsorption syndrome 97835520 E78.70 History of cholecystectomy 231356788 Z90.49 Screening for malignant neoplasm of colon 866489849 Z12.11 Nausea 621212906 R11.0 History of Intestinal infection caused by Clostridioides difficile 6644702409 32708 Z86.19 Reactive gastropathy 399 415131 K31.9 [id number] AMINTA BARRETT NP [facility] [address] [facility] [address] [facility] [place] [address] 01/14/2025 12:51:20 01/14/2025 14:01:20 Chronic pancreatitis 325688631 K86.1 Diarrhea 49672998 R19.7 Bile acid malabsorption syndrome 59285723 E78.70 History of cholecystectomy 563252919 Z90.49 Screening for malignant neoplasm of colon 183874838 Z12.11 Nausea 961383891 R11.0 History of Intestinal infection caused by Clostridioides difficile 6258046360 32526 Z86.19 Reactive gastropathy 399 362929 K31.9 Epigastric pain 57304053 R10.13 Health Concerns Section Related Observation LastModified by Organization Detai ls LastModified Time None Recorded Concern Status LastModified by Organization Details LastModified Time None Recorded Advance Directives Directive N: Payers Insurance Date Sequence Insurance Name Policy Number Policy Cohen Covered Member ID Cohen Member ID Guarantor Name 04/04/2025 1 [place]MEDICA[place]ACEMENT - HMO) Jonathan Delgado [id number] Jonathan Delgado 03/04/2024 2 [place] [id number] Jonathan Delgado [id number] Jonathan Delgado 06/25/2024 1 [employer] ([place]) [id number] Jonathan Delgado [id number] Jonathan Delgado 11/05/2024 1 [place] [id number] Jonathan Delgado [id number] Jonathan Delgado 01/14/2025 1 [place] [id number] Jonathan Delgado [id number] Jonathan Delgado Notes Date Note Type Note [...] long. No racing thoughts reported. Georgina Marshall, [address], [place], [address], [place] 03/01/2024 10:22:18 06/25/2024 text/html This [...] try to obtain records from. Aure Soliman [address], [address], [place], [address], [place] 06/26/2024 12:50:04 08/15/2024 text/html CURRENT (08/15/20 24 VBam Barrett):Mr. Delgado is a 53 year old man referred to use by Quyen Elizabeth APRN for acute pancreatitis. Patient developed acute left flank pain after cardiac catheterization and was seen in the ED at [facility]. CT scan reportedly showed acute pancreatitis with [...] beverages and improve his diet. AMINTA BARRETT, AIRLINE DISPATCHER [address], [place], [address], [place] & [place] 08/15/2024 14:51:19 11/05/2024 text/html PREVIOUS ( 024 Margarita Barrett):Mr. Delgado is a 53 year old man referred to use by Quyen Elizabeth APRN for acute pancreatitis. Patient developed acute left flank pain after cardiac catheterization and was seen in the ED at [facility]. CT scan reportedly showed acute pancreatitis with [...] continuous nausea. 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 Denies any weight loss, fevers or bloody stool. AMINTA BARRETT, AIRLINE DISPATCHER [address] [facility], [place], [address], [place] 11/05/2024 15:41:48 01/14/2025 text/html PREVIOUS ( 024 Margarita Barrett):Mr. Delgado is a 53 year old man referred to use by Quyen Elizabeth APRN for acute pancreatitis. Patient developed acute left flank pain after cardiac catheterization and was seen in the ED at [facility]. CT scan reportedly showed acute pancreatitis with [...] continuous nausea. 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 Denies any weight loss, fevers or bloody [...] Denies any new GI symptoms. AMINTA BARRETT, AIRLINE DISPATCHER [address], [place], [address], [facility] - [place] - [place] & [place] 01/14/2025 21:54:23
[2025-05-08] MEDS: REGADENOSON 0.4MG/5ML SYRINGE 0.4 MG IV (13:35)
[2025-05-08] MEDS: ISOTOPE MYOVIEW (PER STUDY) 1 DOSE IV (13:35)
[2025-05-08] MEDS: SODIUM CHLORIDE 0.9% 10ML SYR (RAD ONLY) 10 ML IV ×2 (13:35)
== END 2025-05-08 23:59 | disposition home or self-care (01) ==
LOC: RAD 11:48
PROVIDERS: PCP Family Medicine; Visit Provider Nurse Practitioner Family
DX: R94.39 Abnormal result of other cardiovascular function study (principal); I25.10 Atherosclerotic heart disease of native coronary artery without angina pectoris; E11.9 Type 2 diabetes mellitus without complications; R55 Syncope and collapse
CPT/HCPCS: 78452; 93017; 93018; A9502; J2785

== ENCOUNTER 2025-05-12 16:44 | Outpatient (CLI) | payer MEDICAID, SELFPAY ==
--- NOTE | 2025-05-12 16:45 | MR_ITS ---
PROCEDURE INFORMATION: Exam: MR Cervical Spine Without Contrast Exam date and time: 05/12/2025 4:44 PM Age: 54 years old Clinical indication: Neck pain with left arm numbness/ tingling and pain into 3-5th digits on left hand. Popping and cracking x 1.5 years TECHNIQUE: Imaging protocol: Magnetic resonance imaging of the cervical spine without contrast. COMPARISON: CT CERVICAL SPINE WO CON 10/23/2024 1:31 PM FINDINGS: Bones/joints: Anatomic alignment. No acute fracture seen. Spinal cord: Normal signal. No cord compression. Disc desiccation throughout. Disc height loss and spondylosis is frmh-jg-cuuvhaal at C5-C6. C2-C3: No stenoses. C3-C4: No stenoses. C4-C5: Mild disc bulge. A 2 mm caudally migrating central disc extrusion indenting ventral thecal sac causing mild central spinal canal stenosis. Mild uncovertebral and facet arthropathy without contribution to significant foraminal stenoses. C5-C6: Kwsd-zu-vbbgfmju diffuse disc bulge. Broad-based right lateral canal/foraminal disc protrusion appears partially calcified based on the prior CT study. Mild ventral cord abutment. No evidence of cord myelopathy. Central spinal canal stenosis is paul-xh-qhacgggm. Uncovertebral and facet arthropathy causing moderate to severe right and mild left neural foraminal stenoses. C6-C7: Mild disc bulge and ligamentum flavum buckling. The central spinal canal remains patent. Mild uncovertebral and facet arthropathy causing mild bilateral neural foraminal stenoses. C7-T1: No significant disc bulge or herniation. No severe spinal canal stenosis. No significant neural foraminal narrowing. Soft tissues: Unremarkable. Vasculature: Not well evaluated on this protocol. IMPRESSION: High-grade right neural foraminal stenosis at C5-C6.
--- OUTSIDE RECORDS SUMMARY | 2025-05-12 16:46 | XMS_ITS | Encounter Summary ---
Author Organization [employer] i[employer] Address [address] [place] [address] Care Team Providers Care Clinical Dermatologist Name Role Phone Unavailable Primary Care Provider Unavailabl e Encounter Details Date Type Department Care Team (Late st Contact Info) Description 01/21/2020 Transcribed Document [facility] [place] [facility] [place] [address] ProviderLora MD [address] [place], [place] [id number] Social History Tobacco Use Types Packs/Day Years Used Date Smoking Tobacco: Never Assessed Sex and Gender Information Value Date Recorded Sex Assigned at Not on file Legal Sex Male 5:25 PM CDT Gender Identity Not on file Sexual Orientation Not on file documented as of this encounter Miscellaneous Notes * Cerner Conversion Note - Historical ProviderMD - 01/21/2020 12:11 PM ENGINEER CHIEF Final Discharge Planning Entered On: 01/21/2020 12:15 [...] : Yes Discharge To Care Management : Home/Residential/Senior Care or Self Care -01 SANDY LEIJA, RN-Care Management - 01/21/2020 12:11 EST Final Narrative Note Final Narrative Note : Discharging today w/f/u appt made w/ID along w/plans for IV abx therapy beginning tomorrow w/[facility] SANDY LEIJA RN-Care Management - 01/21/2020 12:11 EST Electronically signed by [facility], [facility] Conversion Final Inspector Shuttle Cerner at 03/17/2023 9:46 AM CDT documented in this encounter Plan of Treatment Not on file documented as of this encounter Visit Diagnoses Not on filedocumented in this encounter
--- OUTSIDE RECORDS SUMMARY | 2025-05-12 16:46 | XMS_ITS | Encounter Summary ---
Author Organization [employer] i[employer] Address [address] [place] [address] Care Team Providers Care Dietetics Teacher Name Role Phone Unavailable Primary Care Provider Unavailabl e Encounter Details Date Type Department Care Team (Late st Contact Info) Description 01/23/2020 Transcribed Document [facility] [place] Family Medicine [address] [place] [address] ProviderLora MD [address] [place], [place] [id number] Social History Tobacco Use Types Packs/Day Years Used Date Smoking Tobacco: Never Assessed Sex and Gender Information Value Date Recorded Sex Assigned at Not on file Legal Sex Male 5:25 PM CDT Gender Identity Not on file Sexual Orientation Not on file documented as of this encounter Miscellaneous Notes * Cerner Conversion Note - Lora ProviderMD - 01/23/2020 2:20 PM LEAF STICKER UM Authorization Entered On: 01/23/2020 14:23 EST Performed On: 01/23/2020 14:20 EST by LORENA GOLDMAN RN Primary Insurance Authorization Authorization and Policy Numbers : Insurance 1 Health Plan: [email or web address] [facility] Policy Number: [id number] Authorization Number: [facility] Policy Number: [id number] Authorization Status-Primary : Drg approved Auth/Referral Contact Name-Primary : [place] Reference Number-Primary : [id number] Number of Days Authorized-Primary : 1 Day(s) Authorized Service Begin Date-Primary : 01/18/2020 EST Authorized Service End Date-Primary : 01/19/2020 EST Authorization Comments-Primary : Per Availity, DRG approved. Historical Authorization Comments-Primary : Comment 1: Discharge date and summary faxed. (Roxie Marshall, Curtain Cutter 01/22/2020 13:27) Comment 2: 2 days los approved, nrd 01/20, clinicals faxed via [employer] for C/S (JOAQUIN PETTY RN 01/21/2020 10:45) Comment 3: Submitted Inpt Auth on Availity with clinicals attached. (HORACIO REGALADO, Rn-Utilization Review 01/19/2020 15:14) LORENA GOLDMAN RN - 01/23/2020 14:20 EST Electronically signed by Stefanie [facility] Conversion Political Reporter Cerner at 03/17/2023 9:36 AM CDT documented in this encounter Plan of Treatment Not on file documented as of this encounter Visit Diagnoses Not on filedocumented in this encounter
--- OUTSIDE RECORDS SUMMARY | 2025-05-12 16:46 | XMS_ITS | Encounter Summary ---
Author Organization [employer] i[employer] Address [address] [place] [address] Care Team Providers Care Golf Course Manager Name Role Phone Unavailable Primary Care Provider Unavailabl e Encounter Details Date Type Department Care Team (Late st Contact Info) Description 01/22/2020 Transcribed Document [facility] [place] Family Medicine [address] [place] [address] ProviderLora MD [address] [place], [place] [phone] Social History Tobacco Use Types Packs/Day Years Used Date Smoking Tobacco: Never Assessed Sex and Gender Information Value Date Recorded Sex Assigned at Not on file Legal Sex Male 5:25 PM CDT Gender Identity Not on file Sexual Orientation Not on file documented as of this encounter Miscellaneous Notes * Cerner Conversion Note - Lora ProviderMD - 01/22/2020 1:27 PM STRATEGIC PLANNING DIRECTOR UM Authorization Entered On: 01/22/2020 13:28 EST Performed On: 01/22/2020 13:27 EST by Roxie Marshall, Soft Sugar Supervisor Primary Insurance Authorization Authorization and Policy Numbers : Insurance 1 Health Plan: [facility] Policy Number: [id number] Authorization Number: Insurance Primary Name : [facility] Policy Number: [id number] Authorization Status-Primary : Admit approved Auth/Referral Contact Name-Primary : DC Reference Number-Primary : [id number] Number of Days Authorized-Primary : 1 Day(s) [...] REGALADO, Rn-Utilization Review 01/19/2020 15:14) Roxie Marshall, Soft Sugar Supervisor - 01/22/2020 13:27 EST Electronically signed by Stefanie, [facility] Conversion Audiovisual Librarian Cerner at 03/17/2023 9:31 AM CDT documented in this encounter Plan of Treatment Not on file documented as of this encounter Visit Diagnoses Not on filedocumented in this encounter
--- OUTSIDE RECORDS SUMMARY | 2025-05-12 16:46 | XMS_ITS | Encounter Summary ---
Author Organization [employer] Address [address] [place] [address] Care Team Providers Care Card Player Name Role Phone Unavailable Primary Care Provider Unavailabl e Encounter Details Date Type Department Care Team (Late st Contact Info) Description 01/21/2020 Transcribed Document [facility] [place] [facility] [place] [place] [address] ProviderLora MD [address] [place], [place] [phone] Social History Tobacco Use Types Packs/Day Years Used Date Smoking Tobacco: Never Assessed Sex and Gender Information Value Date Recorded Sex Assigned at Not on file Legal Sex Male 5:25 PM CDT Gender Identity Not on file Sexual Orientation Not on file documented as of this encounter Miscellaneous Notes * Cerner Conversion Note - Historical ProviderMD - 01/21/2020 11:07 AM CYLINDER GRINDER Stroke/Warfarin Instructions Entered On: 01/21/2020 11:07 EST [...] Cinthya Salamanca RN - 01/21/2020 11:07 EST Electronically signed by Cathryn Watts Conversion Senior Accounts Payable Clerk Cerner at 03/17/2023 9:45 AM CDT documented in this encounter Plan of Treatment Not on file documented as of this encounter Visit Diagnoses Not on filedocumented in this encounter
--- OUTSIDE RECORDS SUMMARY | 2025-05-12 16:46 | XMS_ITS | Clinical Summary ---
Author Organization [employer] In i[employer] Address [address] [place] [address] Care Team Providers Care Transmission And Protection Engineer Name Role Phone Unavailable Primary Care [...]
--- OUTSIDE RECORDS SUMMARY | 2025-05-12 16:47 | XMS_ITS | Encounter Summary ---
Author Organization [employer] In i[employer] Address [address] [place] [address] Care Team Providers Care Manager Hiv Name Role Phone Unavailable Primary Care Provider Unavailabl e Encounter Details Date Type Department Care Team (Late st Contact Info) Description 01/21/2020 Transcribed Document [facility] [place] Family Medicine [address] [place] [address] ProviderLora MD [address] [place], [place] [phone] Social History Tobacco Use Types Packs/Day Years Used Date Smoking Tobacco: Never Assessed Sex and Gender Information Value Date Recorded Sex Assigned at Not on file Legal Sex Male 5:25 PM CDT Gender Identity Not on file Sexual Orientation Not on file documented as of this encounter Miscellaneous Notes * Cerner Conversion Note - Historical ProviderMD - 01/21/2020 10:45 AM PERSONNEL SPECIALIST UM Authorization Entered On: 01/21/2020 10:45 EST Performed On: 01/21/2020 10:45 EST by JOAQUIN PETTY RN Primary Insurance Authorization Authorization and Policy Numbers : Insurance 1 Health Plan[facility] Policy Number: [id number] Authorization Number: Insurance [facility]: [id number] Authorization Status-Primary : Admit approved Reference Number-Primary : [id number] Number of Days Authorized-Primary : 1 Day(s) Authorized Service Begin Date-Primary : 01/18/2020 EST Authorized Service End Date-Primary : 01/19/2020 EST Authorization Comments-Primary : 2 days los approved, nrd 01/20, clinicals faxed via [employer] for C/S Historical Authorization Comments-Primary : Comment 1: Submitted Inpt Auth on Availity with clinicals attached. (HORACIO REGALADO, Rn-Utilization Review 01/19/2020 15:14) JOAQUIN PETTY, MALU - 01/21/2020 10:45 EST Electronically signed by Stefanie, [facility] Conversion Digital Design Engineer Cerner at 03/17/2023 9:23 AM CDT documented in this encounter Plan of Treatment Not on file documented as of this encounter Visit Diagnoses Not on filedocumented in this encounter
--- OUTSIDE RECORDS SUMMARY | 2025-05-12 16:47 | XMS_ITS | Encounter Summary ---
Author Organization [employer] Address [address] [place] [address] Care Team Providers Care Strip Feeder Name Role Phone Unavailable Primary Care Provider Unavailabl e Encounter Details Date Type Department Care Team (Late st Contact Info) Description 01/20/2020 Transcribed Document [facility] [place] Medicine [facility] [place] [address] ProviderLora MD [address] [place], [place] [phone] Social History Tobacco Use Types Packs/Day Years Used Date Smoking Tobacco: Never Assessed Sex and Gender Information Value Date Recorded Sex Assigned at Not on file Legal Sex Male 5:25 PM CDT Gender Identity Not on file Sexual Orientation Not on file documented as of this encounter Miscellaneous Notes * Cerner Conversion Note - Historical ProviderMD - 01/20/2020 1:07 PM EXPLOSIVES TRUCK DRIVER Initial Discharge Planning Entered On: 01/20/2020 13:12 EST Performed On: 01/20/2020 13:07 EST by ASNDY LEIJA RN-Care Management Initial Assessment I Previously Documented Living Environment : No qualifying data available. SANDY LEIJA RN-Care Management - 01/20/2020 13:22 EST Living Situation : Home Patient Lives With : Spouse Is the Patient a Caregiver at Home? : No Emergency Contact #1 : fercho espitia Emergency Contact #1 Emergency Contact #1 Relationship [...]
--- OUTSIDE RECORDS SUMMARY | 2025-05-12 16:47 | XMS_ITS | Encounter Summary ---
Author Organization [employer] Address [address] [place] [address] Care Team Providers Care Sign Language Interpreter Name Role Phone Unavailable Primary Care Provider Unavailabl e Encounter Details Date Type Department Care Team (Late st Contact Info) Description 01/21/2020 Transcribed Document [facility] [place] Family Medicine [address] [place] [address] ProviderLora MD [address] [place], [place] [address] Social History Tobacco Use Types Packs/Day Years Used Date Smoking Tobacco: Never Assessed Sex and Gender Information Value Date Recorded Sex Assigned at Not on file Legal Sex Male 5:25 PM CDT Gender Identity Not on file Sexual Orientation Not on file documented as of this encounter Miscellaneous Notes * Cerner Conversion Note - Lora Mcdaniel MD - 01/21/2020 11:17 AM FULL STACK SOFTWARE ENGINEER Patient Education Materials Follows: Diabetes Mellitus and [...] that you work with a diet and automotive parts specialist (dietitian) to make a meal plan [...] provider. ??? Work with a counselor or community educator to identify strategies to manage stress and any emotional and social challenges. Questions to ask a health care provider ??? Do I need to meet with a community educator? Do I need to meet with a dietitian? What number can I call if I have questions? When are the best times to check my blood glucose? Where to find more information: ??? [place] [employer]: diabetes.org ??? Academy of Nutrition and Dietetics: www.eatright.org ??? National [place] of Diabetes and Digestive and Kidney Diseases (NIH): www.niddk.nih.gov Summary ??? A healthy meal plan will help you control your blood glucose and maintain a healthy lifestyle. ??? Working with a diet and automotive parts specialist (dietitian) can help you make a [...] 08/10/2006 Document Revised: 06/13/2018 Document Reviewed: 12/18/2017 CITIA Interactive Patient Education ? 2019 [employer]. Carbohydrate Counting for Diabetes Mellitus, Adult [...] different for every person. A diet and automotive parts specialist (registered dietitian) can help you make [...] of carbohydrates: ? hamburger bun or ? Brazilian muffin. ? oz (15 mL) syrup. ? [...] foods that contain carbohydrates: ??? Rice. ??? [place]. ??? Milk. ??? Strawberries. 2. Calculate how [...] manage your diabetes. ??? A diet and automotive parts specialist (registered dietitian) can help you make a meal plan and calculate how many carbohydrates you should have at each meal and snack. This information is not intended to replace advice given to you by your health care provider. Make sure you discuss any questions you have with your health care provider. Document Released: 11/13/2006 Document Revised: 05/23/2018 Document Reviewed: 04/26/2017 CITIA Interactive Patient Education ? 2019 [employer]. Incision and Drainage, Care After Refer [...] Follow these instructions at home: ??? Take sexl-snk-puzbrrw and prescription medicines only as told by [...] and water are not available, use hand project geologist. ? When you should remove your dressing. [...] 02/04/2013 Document Revised: 04/14/2017 Document Reviewed: 09/02/2016 CITIA Interactive Patient Education ? 2019 [employer]epic. Diabetes and Foot Care Diabetes may cause [...] 04/22/2014 Elsevier Interactive Patient Education ? 2017 [employer] Inc. documented in this encounter Plan of Treatment Not on file documented as of this encounter Visit Diagnoses Not on filedocumented in this encounter
--- OUTSIDE RECORDS SUMMARY | 2025-05-12 16:47 | XMS_ITS | Encounter Summary ---
Author Organization [employer] In [employer] Address [address] [place] [address] Care Team Providers Care Boat Joiner Helper Name Role Phone Unavailable Primary Care Provider Unavailabl e Encounter Details Date Type Department Care Team (Late st Contact Info) Description 01/19/2020 Transcribed Document [facility] [place] [address] [place] [address] ProviderLora MD [address] [place], [place] [address] Social History Tobacco Use Types Packs/Day Years Used Date Smoking Tobacco: Never Assessed Sex and Gender Information Value Date Recorded Sex Assigned at Not on file Legal Sex Male 5:25 PM CDT Gender Identity Not on file Sexual Orientation Not on file documented as of this encounter Miscellaneous Notes * Cerner Conversion Note - Historical ProviderMD - 01/19/2020 2:00 AM FOOD AND DRUG RESEARCH SCIENTIST [place] Clerk Details Entered On: 01/19/2020 3:19 EST Performed [...]
--- OUTSIDE RECORDS SUMMARY | 2025-05-12 16:47 | XMS_ITS | Encounter Summary ---
Author Organization [employer] Address [address] [place] [address] Care Team Providers Care Repair Operator Name Role Phone Unavailable Primary Care Provider Unavailabl e Encounter Details Date Type Department Care Team (Late st Contact Info) Description 01/19/2020 Transcribed Document [facility] [place] Family Medicine [place] [address] ProviderLora MD [address] [place], [place] [address] Social History Tobacco Use Types Packs/Day Years Used Date Smoking Tobacco: Never Assessed Sex and Gender Information Value Date Recorded Sex Assigned at Not on file Legal Sex Male 5:25 PM CDT Gender Identity Not on file Sexual Orientation Not on file documented as of this encounter Miscellaneous Notes * Cerner Conversion Note - Lora ProviderMD - 01/19/2020 11:27 AM PUBLIC DEFENDER Patient: JONATHAN DELGADO Age: 49 years Sex: Male : 1970 Associated Diagnoses: None Author: ESTHELA SCHMITT MD-CAR Basic Information PCP: primary cardiology- Dr Sibley ([facility] for caths) Chief Complaint left foot infection History of Present Illness 49 yo male with history with CAD (PCI 2013), HTN, and DM presented to outside facility with complaints of redness of left foot, fever and chills. Pt transferred to [facility] for further evaluation and treatment. Pt states [...] list: All Problems Angina / SNOMED CT 235906917 / Confirmed Coronary artery disease / SNOMED CT 0417734559 / Confirmed Diabetes mellitus type II / SNOMED CT 68446223 / Confirmed GERD - Gastro-esophageal reflux disease / SNOMED CT 6821306275 / Confirmed History of obstructive sleep apnea / IMO 31597429 / Confirmed Hyperlipidemia / SNOMED CT 19134806 / Confirmed Hypertension / SNOMED CT 96933677 / Confirmed Impaired vision in both eyes / SNOMED CT 578808293 / Confirmed Migraine / SNOMED CT 33115227 / Confirmed Prostate infection / SNOMED CT 63911459 / Confirmed Stented coronary artery / SNOMED CT 1705901026 / Confirmed, Active Problems (11) Angina Coronary [...] family history is negative. Procedure history: Stent (550505262). bilateral hernia repair. cardiac catheterization with coronary [...] (Current Encounter/Past 24 Hours) ProBNP 202 pg/mL PA 01/18/2020 19:18 Blood Gases (Current Encounter/Past 24 Hours) No Blood Gas Results Found (Past 24 Hours) Radiology Results (Last 48 hours) [id number] -- 01/18/2020 16:50 CR Chest 2 Vws [...]
--- OUTSIDE RECORDS SUMMARY | 2025-05-12 16:47 | XMS_ITS | Encounter Summary ---
Author Organization [employer] Address [address] [place] [address] Care Team Providers Care Yarn Twister Name Role Phone Unavailable Primary Care Provider Unavailabl e Encounter Details Date Type Department Care Team (Late st Contact Info) Description 01/20/2020 Transcribed Document [facility] [place] Family Medicine [facility] [address] ProviderLora MD [address] [place] [address] Social History Tobacco Use Types Packs/Day Years Used Date Smoking Tobacco: Never Assessed Sex and Gender Information Value Date Recorded Sex Assigned at Not on file Legal Sex Male 5:25 PM CDT Gender Identity Not on file Sexual Orientation Not on file documented as of this encounter Miscellaneous Notes * Cerner Conversion Note - Historical ProviderMD - 01/20/2020 12:17 PM CHIEF TRANSFER AND PUMPHOUSE OPERATOR Tobacco Grader Inpatient Document Entered On: 01/20/2020 15:26 EST [...] 01/20/2020 15:24 EST Electronically signed by Stefanie [facility] Conversion Public Policy Analyst Cerner at 03/17/2023 9:17 AM CDT documented in this encounter Plan of Treatment Not on file documented as of this encounter Visit Diagnoses Not on filedocumented in this encounter
--- OUTSIDE RECORDS SUMMARY | 2025-05-12 16:47 | XMS_ITS | Encounter Summary ---
Author Organization [employer] Address [address] [place] [address] Care Team Providers Care Automation Tech Name Role Phone Unavailable Primary Care Provider Unavailabl e Encounter Details Date Type Department Care Team (Late st Contact Info) Description 01/19/2020 Transcribed Document [facility] [place] [facility] [place] [address] ProviderLora MD [address] [place], [place] [id number] Social History Tobacco Use Types Packs/Day Years Used Date Smoking Tobacco: Never Assessed Sex and Gender Information Value Date Recorded Sex Assigned at Not on file Legal Sex Male 5:25 PM CDT Gender Identity Not on file Sexual Orientation Not on file documented as of this encounter Miscellaneous Notes * Cerner Conversion Note - Historical ProviderMD - 01/19/2020 3:14 PM TEACHER [employer] Authorization Entered On: 01/19/2020 15:19 EST Performed On: 01/19/2020 15:14 EST by HORACIO REGALADO Rn-Utilization Review Primary Insurance Authorization Authorization and Policy Numbers : Insurance 1 Health Plan: [employer] Policy Number: [id number] Authorization Number: Insurance Primary Name : [employer] Policy Number: [id number] Authorization Status-Primary : Awaiting callback Reference Number-Primary : [id number] Authorized Service Begin Date-Primary : 01/18/2020 EST Authorization Comments-Primary : Submitted Inpt Auth on Availity with clinicals attached. Historical Authorization Comments-Primary : No Authorization Comments Found HORACIO REGALADO Rn-Utilization Review - 01/19/2020 15:14 EST Electronically signed by Stefanie [facility] Conversion Well Tester Cerner at 03/17/2023 9:18 AM CDT documented in this encounter Plan of Treatment Not on file documented as of this encounter Visit Diagnoses Not on filedocumented in this encounter
--- OUTSIDE RECORDS SUMMARY | 2025-05-12 16:47 | XMS_ITS | Encounter Summary ---
Author Organization [employer] Address [address] [place] [address] Care Team Providers Care Neighborhood Aide Name Role Phone Unavailable Primary Care Provider Unavailabl e Encounter Details Date Type Department Care Team (Late st Contact Info) Description 01/19/2020 Transcribed Document [facility] [address] [place] [address] ProviderLora MD [address] [place], [place] [address] Social History Tobacco Use Types Packs/Day Years Used Date Smoking Tobacco: Never Assessed Sex and Gender Information Value Date Recorded Sex Assigned at Not on file Legal Sex Male 5:25 PM CDT Gender Identity Not on file Sexual Orientation Not on file documented as of this encounter Miscellaneous Notes * Cerner Conversion Note - Historical ProviderMD - 01/19/2020 5:00 AM WEB APPLICATION DEV SPECIALIST Chart Check - Review Order Profile Entered On: 01/19/2020 3:19 EST Performed On: 01/19/2020 5:00 EST by Mary Jane Burnham RN Chart Check Powerplans Initiated/Discontinued as Appropriate : Yes All Active Orders Reviewed : Yes Mary Jane Burnham RN - 01/19/2020 3:19 EST Electronically signed by Stefanie [facility] Conversion Acid Adjuster Cerner at 03/17/2023 9:28 AM CDT documented in this encounter Plan of Treatment Not on file documented as of this encounter Visit Diagnoses Not on filedocumented in this encounter
--- OUTSIDE RECORDS SUMMARY | 2025-05-12 16:47 | XMS_ITS | Clinical Summary ---
Author Organization [facility] Address [address] [place] [address] Phone Care Team Providers Care Manager Membership Name Role Phone Giles DE LA CRUZ, [...] fat layer exposed Coronary artery disease (CAD) 69687021 (SNOMED CT) 01/21 Active 01/21 Georgina Ruth Coronary arteriosclerosis DM II with diabetic peripheral neuropathy 19415134 (SNOMED CT) 01/21 Active 01/21 Georgina Ruth Type 2 diabetes mellitus Benign Essential Hypertension 9680612 (SNOMED CT) 01/21 Active 01/21 Georgina Ruth Benign essential hypertension Wound infection/Ce llulitis of left foot L03.116 (ICD-10-CM ) 01/21 Active 01/21 Treva W Cellulitis of left lower limb MSSA infection 158197813 (SNOMED CT) 01/21 Active 01/21 Treva W Infection by methicillin sensitive Staphylococcus aureus Medications Medication Instructions Start Date Stop Date Generic Name ND Provider KEFLEX 500 MG ORAL CAPSULE one po qid CEPHALEXIN 43351784280 Radha Tucker APRN CEFTRIAXONE SODIUM 2 GM SOLR Rocephin 2GM IV Q24hrs - INPAT CEFTRIAXONE SODIUM 45019694437 Silvia Trujillo RN CEPHALEXIN 500 MG CAPS Take 1 by mouth 4 times a day CEPHALEXIN 31198720857 Adryan Skaggs MD CEFTRIAXONE SODIUM 2 GM SOLR Rocephin 2GM IV Q24hrs - INPAT CEFTRIAXONE SODIUM 64016633408 Yuni Christine SERTRALINE HCL 100 MG TABS 2 tablets daily SERTRALINE HCL 80629324896 Macarena Maria PRILOSEC OTC 20 MG TBEC Take 1 tablet by mouth daily OMEPRAZOLE MAGNESIUM 60614728972 Macarena Maria OXYCODONE HCL 5 MG TABS Take one (1) tablet by mouth four times a day as needed OXYCODONE HCL 26724347607 Macarena Maria NOVOLOG 100 UNIT/ML SUBCUTANEOUS SOLUTION INSULIN ASPART 76985301852 Macarena Maria LIPITOR 40 MG TABS Take 1 tablet by mouth daily ATORVASTATIN CALCIUM 48325161711 Macarena Maria LANTUS 100 UNIT/ML SOLN INSULIN GLARGINE 44868781037 Macarena Maria JARDIANCE 25 MG TABS Take 1 tablet by mouth daily in the AM EMPAGLIFLOZIN 79631413402 Macarena Maria ADULT ASPIRIN REGIMEN 81 MG ORAL TABLET DELAYED RELEASE Take 1 tablet by mouth daily ASPIRIN 63487346135 Macarena Maria Medications Administered No information available. [...]
--- OUTSIDE RECORDS SUMMARY | 2025-05-12 16:47 | XMS_ITS | Encounter Summary ---
Author Organization [employer] Address [address] [place] [address] Care Team Providers Care Journal Entry Audit Clerk Name Role Phone Unavailable Primary Care Provider Unavailabl e Encounter Details Date Type Department Care Team (Late st Contact Info) Description 01/21/2020 Transcribed Document [facility] [place] [facility] [place] [address] ProviderLora MD [address] [place] [address] Social History Tobacco Use Types Packs/Day Years Used Date Smoking Tobacco: Never Assessed Sex and Gender Information Value Date Recorded Sex Assigned at Not on file Legal Sex Male 5:25 PM CDT Gender Identity Not on file Sexual Orientation Not on file documented as of this encounter Miscellaneous Notes * Cerner Conversion Note - Historical ProviderMD - 01/21/2020 8:44 AM 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 He originally presented to [facility] with complaints of left foot pain. States that this pain began about Monday is when he first noticed. He has his took his foot and discovered that there was a wound on the sole of his left foot on the ball of the foot. He does not recall any trauma to the foot. Family stated that due to a disagreement with the photocopy operator that was on duty they requested transfer from that facility to here. Labs at outside hospital showed patient was without leukocytosis and was generally unremarkable. Cultures were obtained and patient was given 2 g IV Rocephin. He did receive a foot x-ray while at [facility] but the report did not accopany [...] with the lab today 01/18 blood cultures [facility] Rad: Radiology Results (Last 48 hours) [id number] -- 01/19/2020 15:12 CR Chest 2 Vws [...] over 35 minutes on his care today. documented in this encounter Plan of Treatment Not on file documented as of this encounter Visit Diagnoses Not on filedocumented in this encounter
--- OUTSIDE RECORDS SUMMARY | 2025-05-12 16:47 | XMS_ITS | Encounter Summary ---
Author Organization [employer] Address [address] [place] [address] Care Team Providers Care Sales Coordinator Name Role Phone Unavailable Primary Care Provider Unavailabl e Encounter Details Date Type Department Care Team (Late st Contact Info) Description 01/21/2020 Transcribed Document [facility] [place] Family Medicine [address] [place] [address] ProviderLora MD [address] [place], [place] [address] Social History Tobacco Use Types Packs/Day Years Used Date Smoking Tobacco: Never Assessed Sex and Gender Information Value Date Recorded Sex Assigned at Not on file Legal Sex Male 5:25 PM CDT Gender Identity Not on file Sexual Orientation Not on file documented as of this encounter Miscellaneous Notes * Cerner Conversion Note - Historical ProviderMD - 01/21/2020 2:00 AM ENROUTE CONTROLLER Driver Salesman Details Entered On: 01/21/2020 5:09 EST Performed [...] EST Electronically signed by Stefanie [facility] Conversion Director Account Management Cerner at 03/17/2023 9:15 AM CDT documented in this encounter Plan of Treatment Not on file documented as of this encounter Visit Diagnoses Not on filedocumented in this encounter
--- OUTSIDE RECORDS SUMMARY | 2025-05-12 16:47 | XMS_ITS | Encounter Summary ---
Author Organization [employer] Address [address] [place] [address] Care Team Providers Care Mail Handler Sorter Name Role Phone Unavailable Primary Care Provider Unavailabl e Encounter Details Date Type Department Care Team (Late st Contact Info) Description 01/19/2020 Transcribed Document [facility] [place] [facility] [place] [address] ProviderLora MD [address] [place], [place] [address] Social History Tobacco Use Types Packs/Day Years Used Date Smoking Tobacco: Never Assessed Sex and Gender Information Value Date Recorded Sex Assigned at Not on file Legal Sex Male 5:25 PM CDT Gender Identity Not on file Sexual Orientation Not on file documented as of this encounter Miscellaneous Notes * Cerner Conversion Note - Historical ProviderMD - 01/19/2020 2:05 PM MARGIN CLERK Patient: JONATHAN DELGADO Age: 49 years Sex: [...] hyperlipidemia and hypertension. He originally presented to [facility] with complaints of left foot pain. States that this pain began about Monday is when he first noticed. He has his took his foot and discovered that there was a wound on the sole of his left foot on the ball of the foot. He does not recall any trauma to the foot. Family stated that due to a disagreement with the roller machine operator that was on duty they requested [...] process/pending Rad: Radiology Results (Last 48 hours) [id number] -- 01/18/2020 16:50 CR Chest 2 Vws [...] the above plan care Romario Scott APRN [facility] I discussed his situation with Dr. Sevilla documented in this encounter Plan of Treatment Not on file documented as of this encounter Visit Diagnoses Not on filedocumented in this encounter
--- OUTSIDE RECORDS SUMMARY | 2025-05-12 16:47 | XMS_ITS | Encounter Summary ---
Author Organization [employer] Address [address] [place] [address] Care Team Providers Care Pilling Machine Operator Name Role Phone Unavailable Primary Care Provider Unavailabl e Encounter Details Date Type Department Care Team (Late st Contact Info) Description 01/20/2020 Transcribed Document [facility] [place] Family Medicine [address] [place] [address] ProviderLora MD [address] [place], [place] 66[address] Social History Tobacco Use Types Packs/Day Years Used Date Smoking Tobacco: Never Assessed Sex and Gender Information Value Date Recorded Sex Assigned at Not on file Legal Sex Male 5:25 PM CDT Gender Identity Not on file Sexual Orientation Not on file documented as of this encounter Miscellaneous Notes * Cerner Conversion Note - Historical ProviderMD - 01/20/2020 5:00 AM CLIENT SOLUTIONS SPECIALIST Chart Check - Review Order Profile Entered On: 01/20/2020 3:35 EST Performed On: 01/20/2020 5:00 EST by Mary Jane Burnham RN Chart Check Powerplans Initiated/Discontinued as Appropriate : Yes All Active Orders Reviewed : Yes Mary Jane Burnham RN - 01/20/2020 3:35 EST documented in this encounter Plan of Treatment Not on file documented as of this encounter Visit Diagnoses Not on filedocumented in this encounter
--- OUTSIDE RECORDS SUMMARY | 2025-05-12 16:47 | XMS_ITS | Encounter Summary ---
Author Organization [employer] Address [address] [place] [address] Care Team Providers Care Escrow Representative Name Role Phone Unavailable Primary Care Provider Unavailabl e Encounter Details Date Type Department Care Team (Late st Contact Info) Description 01/21/2020 Transcribed Document [facility] Radiology [address] [place] [address] Nikole Bravo MD [address] [place], [place] [address] Social History Tobacco Use Types Packs/Day Years [...] Date 01/21/2020 Primary Care Provider ADRIAN DELACRUZ [facility] Discharge Diagnosis Diabetic foot ulcer/cellulitis. Osteomyelitis ruled out with MRI Coronary artery disease Diabetes mellitus. Hypertension. Hospital Course 49 yo male with history with CAD (PCI 2013), HTN, and DM presented to outside facility with complaints of redness of left foot, fever and chills. Pt transferred to [facility] for further evaluation and treatment. Pt [...] home IV antibiotics versus IV antibiotics at [facility] infectious office patient can be discharged on ceftriaxone 2 g IV daily. With wound dressing at [facility] infectious disease office and per his [...] -- Start: 01/18/20 17:51:00 EST, 75 gm carbs:[id number] arturo Patient Discharge Summary Orders Discharge Activity: [...]
--- OUTSIDE RECORDS SUMMARY | 2025-05-12 16:47 | XMS_ITS | Data Portability ---
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 Role Phone QUYEN DELACRUZ Primary Care [...] FIDEL Duggan, [address], [address], [place], [address], 4 16:27:23 calprotect in, stool 2023 024 FIDEL Duggan, [address], [address], [place], [address], 4 07:16:57 O&P (ova & parasites) , stool 2023 024 FIDEL Duggan, [address], [address], [place], [address], 4 07:16:59 fecal fat, qualitativ e, stool 2023 024 FIDEL Urban, [address], [address], [place], [address], 4 07:16:56 ESR (erythrocy te sedimentat ion rate), blood 2023 024 FIDEL [facility], [address], [address], [place], [address], 4 11:15:28 C-reactive protein, quantitati ve, serum or plasma 2023 024 [email or web address] [facility], [address], [address], [place], [address], 4 15:39:56 H pylori Ag, stool 2023 024 FIDEL [facility], [address], [address], [place], [address], 4 08:28:00 pancreatic elastase, quant, stool 2023 024 FIDEL [facility], [address], [address], [place], [address], 4 07:16:58 phosphatid ylethanol, QN, blood 2023 024 FIDEL [facility], [address], [address], [place], [address], 4 11:15:23 HbA1c (hemoglobi n A1c), blood 2023 024 FIDEL [facility], [address], [address], [place], [address], 4 11:15:27 amylase + lipase, serum 2023 024 FIDEL [facility], [address], [address], [place], [address], 4 11:15:24 calcium, ionized, quant ISE, serum or plasma 2023 024 FIDEL [facility], [address], [address], [place], [address], 4 11:15:29 lipid panel, serum 2023 024 FIDEL [facility], [address], [address], [place], [address], 4 11:15:22 igg, subclass 4, quantitati ve, serum 2023 024 FIDEL [facility], [address], [address], [place], [address], 4 11:15:30 7-alpha hydroxy-4- cholesten- 3-one, QN, serum or plasma 2023 024 [place] [facility], [address], [facility] [address], [place], [address], 4 11:15:26 CMP, serum or plasma 2023 024 [place] [facility], [address], [facility] [address], [place], [address], 4 11:15:21 CMP, serum or plasma [address] [facility] (Lab Registration) , [address] [place] [address] [place], [address], 4 09:38:57 CBC w/ auto diff [address] (Lab Registration) , [address] [place] [address] [place], [address], 4 09:38:57 Referral None recorded. Procedures None recorded. Surgeries None recorded. Imaging CT, abdomen, w/ contrast 2023 024 [facility] (Central Scheduling), [address] [place] [address] [place], [address], 4 09:51:43 Medication Orders sucralfate 100 mg/mL oral suspension 2024 025 [email or web address] [facility]/Pharmacy #[id number], [address] [place], [address], 5 09:51:45 pantoprazo le 40 mg tablet,del ayed release 2023 024 [facility]/Pharmacy #3016, [address] [place], [address], 4 15:41:35 colestipol 1 gram tablet 2023 024 [facility]/Pharmacy #3016, [address] [place], [address], 11:07:18 gabapentin 300 mg capsule 2023 024 [facility]/Pharmacy #3016, [address] [place], [address], 10:21:21 primidone 50 mg tablet 2023 024 [facility]/Pharmacy #3016, [address] [place], [address], 10:05:59 Patient TargetsNo targets recorded. Patient Instructions Encounter Date Encounter Id Patient Instructions Last Modified By Organization Details Last Modified Time 01/14/2025 [id number] f/u 8 weeks [email or web address] Not available 21:53:52 Reason for Referral None Reported. Results Created Date Observation Date Name Description Value Unit Range Abnormal Flag Note LastModifiedBy Organization Detail LastModifiedTime 06/25/20 24 06/25/2024 CBC W/ AUTO DIFF WBC 7.54 K/uL 4.5-11 .5 Not Available [facility] (Pre[facility]Op [facility]) [address] [place] [address] [place], [address], 06/25/2024 15:47:19 06/25/20 24 06/25/2024 CBC W/ AUTO DIFF RBC 5.37 M/uL 4.0-5. 4 Not Available [facility] (Pre-Op [facility]) [address] [place] [address] [place], [address], 06/25/2024 15:47:19 06/25/20 24 06/25/2024 CBC W/ AUTO DIFF HGB 14.9 g/dL 14.0-1 8.0 Not Available [facility] (Pre-Op [facility]) [address] [place] [address] [place], [address], 06/25/2024 15:47:19 06/25/20 24 06/25/2024 CBC W/ AUTO DIFF HCT 45.8 % 40-54 Not Available [facility] (Pre-Op [facility]) [address] [place] [address] [place], [address], 06/25/2024 15:47:19 06/25/20 24 06/25/2024 CBC W/ AUTO DIFF MCV 85.3 fL 80.0-1 00.0 Not Available [facility] ([facility]Op [facility]) [address] [place] [address] [place], [address], 06/25/2024 15:47:19 06/25/20 24 06/25/2024 CBC W/ AUTO DIFF MCH 27.7 pg 26.0-3 2.0 Not Available [facility] (Pre[facility]Op [facility]) [address] [place] [address] [place], [address], 06/25/2024 15:47:19 06/25/20 24 06/25/2024 CBC W/ AUTO DIFF MCHC 32.5 g/dL 32.0-3 6.0 Not Available [facility] (Pre[facility]Op [facility]) [address] [place] [address] [place], [address], 06/25/2024 15:47:19 06/25/20 24 06/25/2024 CBC W/ AUTO DIFF RDW 13.9 % 11.5-1 4.5 Not Available [facility] ([facility]Op [facility]) [address] [place] [address] [place], [address], 06/25/2024 15:47:19 06/25/20 24 06/25/2024 CBC W/ AUTO DIFF platelet count 166 K/uL 142-42 4 Not Available [facility] ([facility]Op [facility]) [address] [place] [address] [place], [address], 06/25/2024 15:47:19 06/25/20 24 06/25/2024 CBC W/ AUTO DIFF MPV 10.5 fL 6.8-10 .2 high Not Available [facility] ([facility]Op [facility]) [address] [place] [address] [place], [address], 06/25/2024 15:47:19 06/25/20 24 06/25/2024 CBC W/ AUTO DIFF neutrophil % 73.6 % 50-70 high Not Available [facility] (Pre[facility]Op [facility]) [address] [facility] [place], [address], 06/25/2024 15:47:19 06/25/20 24 06/25/2024 CBC W/ AUTO DIFF lymphocyte % 14.6 % 18.0-4 2.0 low Not Available [facility] (Pre[facility]Op [facility]) [address] [facility] [place], [address], 06/25/2024 15:47:19 06/25/20 24 06/25/2024 CBC W/ AUTO DIFF monocyte % 7.4 % 2.0-11 .0 Not Available [facility] (Pre[facility]Op [facility]) [address] [place] [address] [place], [address], 06/25/2024 15:47:19 06/25/20 24 06/25/2024 CBC W/ AUTO DIFF eosinophil % 3.2 % 1.0-3. 0 high Not Available [facility] ([facility]Op [facility]) [address] [facility] [place], [address], 06/25/2024 15:47:19 06/25/20 24 06/25/2024 CBC W/ AUTO DIFF basophil % 0.8 % 0.0-2. 0 Not Available [facility] ([facility]Op [facility]) [address] [facility] [place], [address], 06/25/2024 15:47:19 06/25/20 24 06/25/2024 CBC W/ AUTO DIFF immature granulocytes % 0.4 % 0.0-0. 8 Not Available [facility] ([facility]) [address] [facility] [place], [address], 06/25/2024 15:47:19 06/25/20 24 06/25/2024 CBC W/ AUTO DIFF nucleated red blood cells % 0.0 % Not Available [facility] ([facility]Op [facility]) [address] [facility] [place], [address], 06/25/2024 15:47:19 06/25/20 24 06/25/2024 CBC W/ AUTO DIFF neutrophil # 5.55 K/uL Not Available [facility] ([facility]Op [facility]) [address] [place] [address] [place], [address], 06/25/2024 15:47:19 06/25/20 24 06/25/2024 CBC W/ AUTO DIFF lymphocyte # 1.10 K/uL Not Available [facility] ([facility]Op [facility]) [address] [place] [address] [place], [address], 06/25/2024 15:47:19 06/25/20 24 06/25/2024 CBC W/ AUTO DIFF monocyte # 0.56 K/uL Not Available [facility] (Pre-Op Clinic) [address] [place] [address] [place], [address], 06/25/2024 15:47:19 06/25/20 24 06/25/2024 CBC W/ AUTO DIFF eosinophil # 0.24 K/uL Not Available [facility] ([facility]Op [facility]) [address] [place] [address] [place], [address], 06/25/2024 15:47:19 06/25/20 24 06/25/2024 CBC W/ AUTO DIFF basophil # 0.06 K/uL Not Available [facility] (Pre[facility]Op [facility]) [address] [place] [address] [place], [address], 06/25/2024 15:47:19 06/25/20 24 06/25/2024 CBC W/ AUTO DIFF immature gramulocytes # 0.03 K/uL Not Available [facility] ([facility]Op [facility]) [address] [place] [address] [place], [address], 06/25/2024 15:47:19 06/25/20 24 06/25/2024 CBC W/ AUTO DIFF nucleated red blood cells # 0.00 k/uL Not Available [facility] ([facility]) [address] [facility] [place], [address], 06/25/2024 15:47:19 06/25/20 24 06/25/2024 CBC W/ AUTO DIFF manual differential NO Not Available [facility] ([facility]Op [facility]) [address] [place] [address] [place], [address], 06/25/2024 15:47:19 06/25/20 24 06/25/2024 CBC W/ AUTO DIFF note Unles s other rey noted testi ng [facility]med at: [facility] [address] [place] [address] Jose zamora MD Not Available [facility] ([facility]Op [facility]) [address] [place] [address] [place], [address], 06/25/2024 15:47:19 06/25/20 24 06/25/2024 COMP METAB OLIC PANEL sodium 141 mmol/ L 137-14 7 Not Available [facility] ([facility]Op [facility]) [address] [place] [address] [place], [address], 06/25/2024 17:12:06 06/25/20 24 06/25/2024 COMP METAB OLIC PANEL potassium 4.6 mmol/ L 3.5-5. 1 Not Available [facility] (Pre[facility]Op [facility]) [address] [place] [address] [place], [address], 06/25/2024 17:12:06 06/25/20 24 06/25/2024 COMP METAB OLIC PANEL chloride 101 mmol/ L 98-110 Not Available [facility] ([facility]Op [facility]) [address] [place] [address] [place], [address], 06/25/2024 17:12:06 06/25/20 24 06/25/2024 COMP METAB OLIC PANEL carbon dioxide 23 mmol/ L 21-30 Not Available [facility] ([facility]) [address] [facility] [place], [address], 06/25/2024 17:12:06 06/25/20 24 06/25/2024 COMP METAB OLIC PANEL anion gap 17 mmol/ L 6-14 high Not Available [facility] ([facility]Op [facility]) [address] [place] [address] [place], [address], 06/25/2024 17:12:06 06/25/20 24 06/25/2024 COMP METAB OLIC PANEL glucose 312 mg/dL 70-115 high Not Available [facility] ([facility]Op [facility]) [address] [place] [address] [place], [address], 06/25/2024 17:12:06 06/25/20 24 06/25/2024 COMP METAB OLIC PANEL BUN 28 mg/dL 9-20 high Not Available [facility] ([facility]) [address] [place] [address] [place], [address], 06/25/2024 17:12:06 06/25/20 24 06/25/2024 COMP METAB OLIC PANEL creatinine 1.1 mg/dL 0.5-1. 5 Not Available [facility] ([facility]Op [facility]) [address] [place] [address] [place], [address], 06/25/2024 17:12:06 06/25/20 24 06/25/2024 COMP METAB OLIC PANEL BUN/creatini ne ratio 25 ratio 10-20 high Not Available [facility] ([facility]) [address] [place] [address] [place], [address], 06/25/2024 17:12:06 06/25/20 24 06/25/2024 COMP METAB OLIC PANEL glom filtration rate 80 mL/mi n >60- Not Available [facility] (Pre[facility]Op [facility]) [address] [place] [address] [place], [address], 06/25/2024 17:12:06 06/25/20 24 06/25/2024 COMP METAB OLIC PANEL osmolality (calculated) 310 mosmo l/kg 275-30 1 high OSMOL ALITY IS A CALCU LATIO N UTILI ZING THE SERUM /PLAS MA SODIU M, GLUCO SE AND UREA NITRO GEN (BUN) LEVEL S. FOR THE MOST ACCUR ATE RESUL T A MEASU RED SERUM OSMOL ALITY IS SUGDANDRE GUNND. Not Available [facility] (Pre[facility]Op [facility]) [address] [place] [address] [place], [address], 06/25/2024 17:12:06 06/25/20 24 06/25/2024 COMP METAB OLIC PANEL total protein 6.9 g/dL 6.2-8. 2 Not Available [facility] ([facility]) [address] [place] [address] [place], [address], 06/25/2024 17:12:06 06/25/20 24 06/25/2024 COMP METAB OLIC PANEL albumin 4.6 g/dL 3.5-5. 0 Not Available [facility] ([facility]Op [facility]) [address] [place] [address] [place], [address], 06/25/2024 17:12:06 06/25/20 24 06/25/2024 COMP METAB OLIC PANEL calcium 9.5 mg/dL 8.5-10 .8 Not Available [facility] (Pre-Op Clinic) [address] [place] [address] [place], [address], 06/25/2024 17:12:06 06/25/20 24 06/25/2024 COMP METAB OLIC PANEL bilirubin total 0.5 mg/dL 0.2-1. 3 Not Available [facility] (Pre[facility]Op [facility]) [address] [place] [address] [place], [address], 06/25/2024 17:12:06 06/25/20 24 06/25/2024 COMP METAB OLIC PANEL AST (SGOT) 36 IU/L 17-59 Not Available [facility] (Pre-Op Clinic) [address] [place] [address] [place], [address], 06/25/2024 17:12:06 06/25/20 24 06/25/2024 COMP METAB OLIC PANEL ALT (SGPT) 27 IU/L 0-50 Pleas e note new refer ence inter farrah for ALT. Due to a recen t manuf actur er metho dolog y kiel hammond, the refer ence inter farrah for ALT is lower effec tive March 18, 2021. Not Available [facility] (Pre[facility]Op [facility]) [address] [place] [address] [place], [address], 06/25/2024 17:12:06 06/25/20 24 06/25/2024 COMP METAB OLIC PANEL alk phosphatase 107 IU/L 38-126 Not Available [facility] (Pre-Op Clinic) [address] [place] [address] [place], [address], 06/25/2024 17:12:06 06/25/20 24 06/25/2024 COMP METAB OLIC PANEL note Unles s other rey noted testi ng perfo rmed at: [facility] [address] [place] [address] Jose zamora MD Not Available [facility] (Pre[facility]Op [facility]) [address] [place] [address] [place], [address], 06/25/2024 17:12:06 08/15/20 24 08/16/2024 COMP. METAB OLIC PANEL (14) glucose 114 mg/dL 70-99 above high normal Not Available [facility] ([facility]) [address] [place], [address], 09/04/2024 11:15:21 08/15/20 24 08/16/2024 COMP. METAB OLIC PANEL (14) BUN 30 mg/dL 6-24 above high normal Not Available [facility] ([facility]) [address] [place], [address], 09/04/2024 11:15:21 08/15/20 24 08/16/2024 COMP. METAB OLIC PANEL (14) creatinine 1.15 mg/dL 0.76-1 .27 normal Not Available [facility] ([facility]) [address] [facility] [place], [address], 09/04/2024 11:15:21 08/15/20 24 08/16/2024 COMP. METAB OLIC PANEL (14) eGFR 76 mL/mi n/1.7 3 >59 normal Not Available [facility] ([facility]) [address] [place], [address], 09/04/2024 11:15:21 08/15/20 24 08/16/2024 COMP. METAB OLIC PANEL (14) BUN/creatini ne ratio 26 9-20 above high normal Not Available [facility] ([facility]) [address] [place], [address], 09/04/2024 11:15:21 08/15/20 24 08/16/2024 COMP. METAB OLIC PANEL (14) sodium 145 mmol/ L 134-14 4 above high normal Not Available [facility] ([facility]) [address] [place], [address], 09/04/2024 11:15:21 08/15/20 24 08/16/2024 COMP. METAB OLIC PANEL (14) potassium 4.6 mmol/ L 3.5-5. 2 normal Not Available [facility] ([facility]) [address] [place], [address], 09/04/2024 11:15:21 08/15/20 24 08/16/2024 COMP. METAB OLIC PANEL (14) chloride 105 mmol/ L 96-106 normal Not Available [facility] ([facility]) [address] [place], [address], 09/04/2024 11:15:21 08/15/20 24 08/16/2024 COMP. METAB OLIC PANEL (14) carbon dioxide, total 24 mmol/ L 20-29 normal Not Available [facility] ([facility]) [address] [facility], [address], 09/04/2024 11:15:21 08/15/20 24 08/16/2024 COMP. METAB OLIC PANEL (14) calcium 9.3 mg/dL 8.7-10 .2 normal Not Available [facility] ([facility]) [address] [place], [address], 09/04/2024 11:15:21 08/15/20 24 08/16/2024 COMP. METAB OLIC PANEL (14) protein, total 6.5 g/dL 6.0-8. 5 normal Not Available [facility] ([facility]) [address] [place], [address], 09/04/2024 11:15:21 08/15/20 24 08/16/2024 COMP. METAB OLIC PANEL (14) albumin 4.3 g/dL 3.8-4. 9 normal Not Available [facility] ([facility]) [address] [facility] [place], [address], 09/04/2024 11:15:21 08/15/20 24 08/16/2024 COMP. METAB OLIC PANEL (14) globulin, total 2.2 g/dL 1.5-4. 5 Not Available [facility] ([facility]) [address] [facility] [place], [address], 09/04/2024 11:15:21 08/15/20 24 08/16/2024 COMP. METAB OLIC PANEL (14) bilirubin, total 0.8 mg/dL 0.0-1. 2 normal Not Available [facility] ([facility]) [address] [facility] [place], [address], 09/04/2024 11:15:21 08/15/20 24 08/16/2024 COMP. METAB OLIC PANEL (14) alkaline phosphatase 136 IU/L 44-121 above high normal Not Available [facility] ([facility]) [address] [facility], [place], [address], 09/04/2024 11:15:21 08/15/20 24 08/16/2024 COMP. METAB OLIC PANEL (14) AST (SGOT) 25 IU/L 0-40 normal Not Available [facility] ([facility]) [address] [facility], [place], [address], 09/04/2024 11:15:21 08/15/20 24 08/16/2024 COMP. METAB OLIC PANEL (14) ALT (SGPT) 18 IU/L 0-44 normal Not Available [facility] ([facility]) [address] [place], [address], 09/04/2024 11:15:21 08/15/20 24 08/16/2024 LIPID PANEL cholesterol, total 132 mg/dL 100-19 9 normal Not Available [facility] ([facility]) [address] [place], [address], 09/04/2024 11:15:22 08/15/20 24 08/16/2024 LIPID PANEL triglyceride s 89 mg/dL 0-149 normal Not Available [facility] ([facility]) [address] [place], [address], 09/04/2024 11:15:22 08/15/20 24 08/16/2024 LIPID PANEL HDL cholesterol 49 mg/dL >39 normal Not Available [facility] ([facility]) [address] [place], [address], 09/04/2024 11:15:22 08/15/20 24 08/16/2024 LIPID PANEL VLDL cholesterol arturo 17 mg/dL 5-40 Not Available [facility] ([facility]) [address] [place], [address], 09/04/2024 11:15:22 08/15/20 24 08/16/2024 LIPID PANEL LDL chol calc ([facility]) 66 mg/dL 0-99 Not Available [facility] ([facility]) [address] [facility], [place], [address], 09/04/2024 11:15:22 08/15/20 24 08/16/2024 LIPID PANEL LDL calc comment: [employer]ER Not Available [facility] ([facility]) [address] [facility], [place], [address], 09/04/2024 11:15:22 08/15/20 24 08/20/2024 PHOSP HATID YLETH ANOL (PETH ) phosphatidyl ethanol NEGATI VE Not Available [facility] ([facility]) [address] [facility], [place], [address], 09/04/2024 11:15:23 08/15/20 24 08/20/2024 PHOSP HATID [...] e becky cteri stics deter mined by [employer]. It has not been clear ed or appro caity by the Food and Drug Admin istra tion. Not Available [facility] ([facility]) [address] [facility], [place], [address], 09/04/2024 11:15:23 08/15/20 24 08/16/2024 CAMPOS+L IPASE amylase 113 U/L 31-110 above high normal Not Available [facility] ([facility]) [address] [facility], [place], [address], 09/04/2024 11:15:24 08/15/20 24 08/16/2024 CAMPOS+L IPASE lipase 24 U/L 13-78 normal Not Available [facility] ([facility]) [address] [facility], [place], [address], 09/04/2024 11:15:24 08/15/20 24 09/04/2024 7ALPH AC4 1extvss3 46 NG/mL Refer ence Inter farrah: 1.8-5 7 ng/mL Serum 7Alph aC4 is a surro gate for stool bile acids . Orinda jose guadalupe holley ntrat ions (> 57 [...] e becky cteri stics deter mined by [employer]. It has not been clear ed or appro caity by the Food and Drug Admin istra tion. Not Available [facility] [address], [place], [address], 09/04/2024 11:15:26 08/15/20 24 08/16/2024 HEMOG LOBIN A1C hemoglobin A1C 7.4 % 4.8-5. 6 above high normal Predi abete s: 5.7 - 6.4 Diabe siobhan: >6.4 Glyce gilma contr ol for adult s with diabe siobhan: <7.0 Not Available [facility] ([facility]) [address] [facility], [place], [address], 09/04/2024 11:15:27 08/15/20 24 08/16/2024 SEDIM ENTAT ION RATE- WESTE RGREN sedimentatio n rate-westerg lori 8 mm/HR 0-30 normal Not Available [facility] ([facility]) [address] [place], [address], 09/04/2024 11:15:28 08/15/20 24 08/17/2024 CALCI UM, IONIZ ED, SERUM calcium, ionized, serum 5.0 mg/dL 4.5-5. 6 Not Available [facility] ([facility]) [address] [facility], [place], [address], 09/04/2024 11:15:29 08/15/20 24 08/16/2024 IGG, SUBCL ASS 4 IgG, subclass 4 17 mg/dL 2-96 Not Available [facility] ([facility]) [address] [place], [address], 09/04/2024 11:15:30 08/15/20 24 08/16/2024 C-SOHA CTIVE PROTE IN, QUANT C-reactive protein, quant 32 mg/L 0-10 above high normal Not Available [facility] ([facility]) [address] [place], [address], 09/04/2024 11:15:31 08/15/20 24 08/16/2024 SPECI MEN STATU S REPOR T specimen status report TNP Test not perfo rmed. No stool speci men recei caity. TEST: 02248 [id number] Calpr otect in, Fecal 31362 6 Fecal Fat,Q l (Rfx- Qt) Stool 13145 4 H. pylor i Stool Ag, EIA 47714 3 Ova + Dennis ite Exam [id number] 4 Pancr eatic Elast ase, Fecal Not Available [facility] ([facility]) [address] [place], [address], 09/04/2024 11:15:32 08/19/20 24 08/22/2024 GI PROFI LE, STOOL , PCR campylobacte r Not Detect ed not detect ed Not Available [facility] ([facility]) [address] [place], [address], 08/22/2024 16:14:29 08/19/20 24 08/22/2024 GI PROFI LE, STOOL , PCR C difficile toxin A/B Detect ed not detect ed abnormal Not Available [facility] ([facility]) [address] [place], [address], 08/22/2024 16:14:29 08/19/20 24 08/22/2024 GI PROFI LE, STOOL , PCR plesiomonas shigelloides Not Detect ed not detect ed Not Available [facility] ([facility]) [address] [place], [address], 08/22/2024 16:14:29 08/19/20 24 08/22/2024 GI PROFI LE, STOOL , PCR salmonella Not Detect ed not detect ed Not Available [facility] ([facility]) [address] [place], [address], 08/22/2024 16:14:29 08/19/20 24 08/22/2024 GI PROFI LE, STOOL , PCR vibrio Not Detect ed not detect ed Not Available [facility] ([facility]) [address] [place], [address], 08/22/2024 16:14:29 08/19/20 24 08/22/2024 GI PROFI LE, STOOL , PCR vibrio cholerae Not Detect ed not detect ed Not Available [facility] ([facility]) [address] [place], [address], 08/22/2024 16:14:29 08/19/20 24 08/22/2024 GI PROFI LE, STOOL , PCR yersinia enterocoliti ca Not Detect ed not detect ed Not Available [facility] ([facility]) [address] [place], [address], 08/22/2024 16:14:29 08/19/20 24 08/22/2024 GI PROFI LE, STOOL , PCR enteroaggreg ative E coli Not Detect ed not detect ed Not Available [facility] ([facility]) [address] [place], [address], 08/22/2024 16:14:29 08/19/20 24 08/22/2024 GI PROFI LE, STOOL , PCR enteropathog enic E coli Not Detect ed not detect ed Not Available [facility] ([facility]) [address] [place], [address], 08/22/2024 16:14:29 08/19/20 24 08/22/2024 GI PROFI LE, STOOL , PCR enterotoxige gabe E coli Not Detect ed not detect ed Not Available [facility] ([facility]) [address] [place], [address], 08/22/2024 16:14:29 08/19/20 24 08/22/2024 GI PROFI LE, STOOL , PCR shiga-toxin- producing E coli Not Detect ed not detect ed Not Available [facility] ([facility]) [address] [place], [address], 08/22/2024 16:14:29 08/19/20 24 08/22/2024 GI PROFI LE, STOOL , PCR E coli O157 Not applic able not detect ed Not Available [facility] ([facility]) [address] [place], [address], 08/22/2024 16:14:29 08/19/20 24 08/22/2024 GI PROFI LE, STOOL , PCR shigella/ent eroinvasive E coli Not Detect ed not detect ed Not Available [facility] ([facility]) [address] [place], [address], 08/22/2024 16:14:29 08/19/20 24 08/22/2024 GI PROFI LE, STOOL , PCR cryptosporid ium Not Detect ed not detect ed Not Available [facility] ([facility]) [address] [place], [address], 08/22/2024 16:14:29 08/19/20 24 08/22/2024 GI PROFI LE, STOOL , PCR cyclospora cayetanensis Not Detect ed not detect ed Not Available [facility] ([facility]) [address] [place], [address], 08/22/2024 16:14:29 08/19/20 24 08/22/2024 GI PROFI LE, STOOL , PCR entamoeba histolytica Not Detect ed not detect ed Not Available [facility] ([facility]) [address] [place], [address], 08/22/2024 16:14:29 08/19/20 24 08/22/2024 GI PROFI LE, STOOL , PCR giardia lamblia Not Detect ed not detect ed Not Available [facility] ([facility]) [address] [place], [address], 08/22/2024 16:14:29 08/19/20 24 08/22/2024 GI PROFI LE, STOOL , PCR adenovirus F 40/41 Not Detect ed not detect ed Not Available [facility] ([facility]) [address] [facility], [place], [address], 08/22/2024 16:14:29 08/19/20 24 08/22/2024 GI PROFI LE, STOOL , PCR astrovirus Not Detect ed not detect ed Not Available [facility] ([facility]) [address] [facility], [place], [address], 08/22/2024 16:14:29 08/19/20 24 08/22/2024 GI PROFI LE, STOOL , PCR norovirus GI/gii Detect ed not detect ed abnormal Not Available [facility] ([facility]) [address] [facility], [place], [address], 08/22/2024 16:14:29 08/19/20 24 08/22/2024 GI PROFI LE, STOOL , PCR rotavirus A Not Detect ed not detect ed Not Available [facility] ([facility]) [address] [facility], [place], [address], 08/22/2024 16:14:29 08/19/20 24 08/22/2024 GI PROFI LE, STOOL , PCR sapovirus Not Detect ed not detect ed Not Available [facility] ([facility]) [address] [facility], [place], [address], 08/22/2024 16:14:29 08/19/20 24 08/20/2024 JACQUELINE EN AUTHO RIZAT ION written authorizatio n Commen t Jacqueline en Autho rizat ion Recei caity. Autho rizat ion recei caity from ORIGI NAL ORDER 08-20 Logge d by Roseanne fuentes Not Available [facility] ([facility]) [address] [facility], [place], [address], 08/22/2024 16:14:30 08/19/20 24 08/22/2024 FECAL FAT,Q L (RFX- QT) STOOL fats, neutral NORMAL Sandee l (<60 Dropl ets/H PF) Not Available [facility] ([facility]) [address] [facility], [place], [address], 08/29/2024 07:16:55 08/19/20 24 08/22/2024 FECAL FAT,Q L (RFX- QT) STOOL fats, total NORMAL Sandee l (<100 Dropl ets/H PF) Not Available [facility] ([facility]) [address] [place], [address], 08/29/2024 07:16:55 08/19/20 24 08/21/2024 CALPR OTECT IN, FECAL calprotectin , fecal 54 ug/g 0-120 Holley ntrat ion Inter preta tion Follo w-Up < 5 - 50 ug/g Sandee l None >50 -120 ug/g Borde rline Re-ev aluat e in 4-6 weeks >120 ug/g Abnor mal Repea t as clini roni indic ated Not Available [facility] ([facility]) [address] [facility], [place], [address], 08/29/2024 07:16:57 08/19/20 24 08/21/2024 PANCR EATIC ELAST ASE, FECAL pancreatic elastase, fecal >800 ug_el ast./ g >200 Sever e Pancr eatic Insuf ficie ncy: <100 Moder ate Pancr eatic Insuf ficie ncy: 100 - 200 Sandee l: >200 Not Available [facility] ([facility]) [address] [facility], [place], [address], 08/29/2024 07:16:58 08/19/20 24 08/28/2024 OVA + DENNIS ITE EXAM ova + parasite exam FINAL REPORT These resul ts were obtai hanh using wet prepa ratio n(s) and trich oliver stain ed smear . This test does not inclu de testi ng for Crypt ospor idium parvu m, Cyclo spora , or Micro spori tracy. Not Available [facility] ([facility]) [address] [facility], [place], [address], 08/29/2024 07:16:59 08/19/20 24 08/28/2024 OVA + DENNIS ITE EXAM result 1 COMMEN T No ova, cysts , or dennis ites seen. One negat farnaz speci men does not rule out the possi bilit y of a dennis itic infec tion. Not Available [facility] ([facility]) [address] [facility], [place], [address], 08/29/2024 07:16:59 09/25/2009/25/2024 GASTR OINTE ELISABET L PANEL ,STL PCR campylobacte r NOT DETECT ED not detect ed CAMPY LOBAC TER AND CRYPT OSPOR IDIUM RESUL TS WILL BE CONFI RMED BEFOR E FINAL RESUL TS REPOR JOSE GUADALUPE. Not Available [facility] ([facility]) [address] [facility], [place], [address], 09/25/2024 15:27:36 09/25/20 24 09/25/2024 GASTR OINTE ELISABET L PANEL ,STL PCR C difficile toxin A/B DETECT ED not detect ed delta Not Available [facility] ([facility]) [address], [place], [address], 09/25/2024 15:27:36 09/25/20 24 09/25/2024 GASTR OINTE ELISABET L PANEL ,STL PCR plesiomonas shigelloides NOT DETECT ED not detect ed Not Available [facility] ([facility]) [address] [facility], [place], [address], 09/25/2024 15:27:36 09/25/20 24 09/25/2024 GASTR OINTE ELISABET L PANEL ,STL PCR salmonella NOT DETECT ED not detect ed Not Available [facility] ([facility]) [address], [place], [address], 09/25/2024 15:27:36 09/25/20 24 09/25/2024 GASTR OINTE ELISABET L PANEL ,STL PCR vibrio NOT DETECT ED not detect ed Not Available [facility] ([facility]) [address], [place], [address], 09/25/2024 15:27:36 09/25/20 24 09/25/2024 GASTR OINTE ELISABET L PANEL ,STL PCR vibrio cholerae NOT DETECT ED not detect ed Not Available [facility] ([facility]) [address], [place], [address], 09/25/2024 15:27:36 09/25/20 24 09/25/2024 GASTR OINTE ELISABET L PANEL ,STL PCR yersinia enterocoliti ca NOT DETECT ED not detect ed Not Available [facility] ([facility]) [address], [place], [address], 09/25/2024 15:27:36 09/25/20 24 09/25/2024 GASTR OINTE ELISABET L PANEL ,STL PCR enteroaggreg ative E coli NOT DETECT ED not detect ed Not Available [facility] ([facility]) [address] [facility], [place], [address], 09/25/2024 15:27:36 09/25/20 24 09/25/2024 GASTR OINTE ELISABET L PANEL ,STL PCR enteropathog enic E coli NOT DETECT ED not detect ed Not Available [facility] ([facility]) [address], [place], [address], 09/25/2024 15:27:36 09/25/20 24 09/25/2024 GASTR OINTE ELISABET L PANEL ,STL PCR enterotoxige gabe E coli lt/st NOT DETECT ED not detect ed Not Available [facility] ([facility]) [address] [facility], [place], [address], 09/25/2024 15:27:36 09/25/20 24 09/25/2024 GASTR OINTE ELISABET L PANEL ,STL PCR shiga-toxin- producing E coli NOT DETECT ED not detect ed Not Available [facility] ([facility]) [address], [place], [address], 09/25/2024 15:27:36 09/25/20 24 09/25/2024 GASTR OINTE ELISABET L PANEL ,STL PCR E coli O157 N/A not detect ed Not Available [facility] ([facility]) [address] [facility], [place], [address], 09/25/2024 15:27:36 09/25/20 24 09/25/2024 GASTR OINTE ELISABET L PANEL ,STL PCR shigella/ent eroinvasive E coli NOT DETECT ED not detect ed Not Available [facility] ([facility]) [address], [place], [address], 09/25/2024 15:27:36 09/25/20 24 09/25/2024 GASTR OINTE ELISABET L PANEL ,STL PCR cryptosporid ium NOT DETECT ED not detect ed Not Available [facility] ([facility]) [address] [facility], [place], [address], 09/25/2024 15:27:36 09/25/20 24 09/25/2024 GASTR OINTE ELISABET L PANEL ,STL PCR cyclospora cayetanensis NOT DETECT ED not detect ed Not Available [facility] ([facility]) [address] [facility] [address], [place], [address], 09/25/2024 15:27:36 09/25/20 24 09/25/2024 GASTR OINTE ELISABET L PANEL ,STL PCR entamoeba histolytica NOT DETECT ED not detect ed Not Available [facility] ([facility]) [address] [facility] [address], [place], [address], 09/25/2024 15:27:36 09/25/20 24 09/25/2024 GASTR OINTE ELISABET L PANEL ,STL PCR giardia lamblia NOT DETECT ED not detect ed Not Available [facility] ([facility]) [address], [place], [address], 09/25/2024 15:27:36 09/25/20 24 09/25/2024 GASTR OINTE ELISABET L PANEL ,STL PCR adenovirus F 40/41 NOT DETECT ED not detect ed Not Available [facility] ([facility]) [address], [place], [address], 09/25/2024 15:27:36 09/25/20 24 09/25/2024 GASTR OINTE ELISABET L PANEL ,STL PCR astrovirus NOT DETECT ED not detect ed Not Available [facility] ([facility]) [address] [facility], [place], [address], 09/25/2024 15:27:36 09/25/20 24 09/25/2024 GASTR OINTE ELISABET L PANEL ,STL PCR norovirus GI/gii NOT DETECT ED not detect ed Not Available [facility] ([facility]) [address] [facility], [place], [address], 09/25/2024 15:27:36 09/25/20 24 09/25/2024 GASTR OINTE ELISABET L PANEL ,STL PCR rotavirus A NOT DETECT ED not detect ed Not Available [facility]) [address] [facility], [place], [address], 09/25/2024 15:27:36 09/25/20 24 09/25/2024 GASTR OINTE [...] rever se trans cript ase Not Available [facility] ([facility]) [address], [place], [address], 09/25/2024 15:27:36 09/25/20 24 09/25/2024 C DIFFI CILE TOX/A G SCREE N specimen consistency LIQUID STOOL Not Available [facility] ([facility]) [address], [place], [address], 09/25/2024 15:28:43 09/25/20 24 09/25/2024 C DIFFI [...] cytes or PCR testi ng. Not Available [facility] ([facility]) [address], [place], [address], 09/25/2024 15:28:43 09/25/20 24 09/25/2024 C DIFFI CILE TOX/A G SCREE N C.difficile antigen NEGATI VE negati ve Not Available [facility] ([facility]) [address], [place], [address], 09/25/2024 15:28:43 09/25/20 24 09/25/2024 C DIFFI CILE TOX/A G SCREE N C diff internal control PASS PASS Not Available [facility] ([facility]) [address], [place], [address], 09/25/2024 15:28:43 09/25/20 24 10/03/2024 PATHO LOGY SPECI MEN pathology specimen SEE JEROME Castillo RPT Not Available [facility] ([facility]) [address], [place], [address], 10/03/2024 09:18:07 Result Notes None recorded. Problems Name Problem SNOMED Code Status Onset Date Resolution Date Notes Provider Name and Address Organization Details Recorded Time Allergic rhinitis 09393056 Active 2016 Allergic rhinitis Not Available [facility] 3 08:18:40 Dyspnea 260499129 Active 2016 Not Available [facility] 3 08:18:40 Cough 62933921 Active 2016 Cough Not Available [facility] 3 08:18:40 Chronic constipat ion with overflow 89178343 Active 2016 Overflow diarrhea Not Available [facility] 3 08:18:40 Cervical spondylos is without myelopath y 655369222 Active 2020 Not Available [facility] 3 08:18:40 Heartburn 64432469 Active 2017 Heartburn Not Available [facility] 3 08:18:40 Restricti ve lung disease 92587861 Active 2016 Not Available [facility] 3 08:18:40 Cerebrova scular accident 420303236 Active 2014 Stroke Not Available [facility] 3 08:18:40 Finding reported by subject or history provider 172227001 Active 2014 Not Available [facility] 3 08:18:40 Paresthes ia 40042334 Active 2020 Not Available [facility] 3 08:18:40 Abdominal pain 76592577 Active 2017 Abdominal pain Not Available [facility] 3 08:18:40 Gastroeso phageal reflux disease 329699261 Active 2016 Gastroeso phageal reflux disease Not Available [facility] 3 08:18:40 Irritable bowel syndrome 99469149 Active 2017 Irritable bowel syndrome Not Available [facility] 3 08:18:40 Asthma 876983553 Active 2016 Asthma Not Available [facility] 3 08:18:40 Diarrhea 37844880 Active 2016 Diarrhea Not Available [facility] 3 08:18:40 Constipat ion 74650002 Active 2016 Constipat ion Not Available [facility] 3 08:18:40 Neuralgia 16329824 Active 2022 Georgina Marshall DO [address] , [place], [address] , [place] [facility] [place] [facility] [place] 3 08:49:54 Left foot drop 36566964856 9105 Active 2022 Georgina Marshall DO [address], [place], [address] , [place] [facility] [place] [facility] [place] 3 08:49:58 Forgetful 36083581 Active 2022 Georgina Marshall DO [address], [place], [address] , [place] - [facility] & [place] 3 11:24:50 Irritable bowel syndrome with diarrhea 446986188 Active 2022 Earlene Kamara NP [address], [address], [place], [address] , [place] [facility] [place] [facility] [place] 15:53:25 Essential tremor 561845150 Active 2023 Georgina Marshall DO [address], [place], [address] , [place] [facility] [place] 09:58:42 Problem Notes None recorded. Procedures Surgical History Date Name Laterality Status Provider Name and Address Organization Details Recorded Time 01/14/20 25 lumbar spinal fusion completed Khushi Kapoor [place] [facility] [place] [facility] [place] 01/14/2025 13:17:57 08/15/20 24 Procedure Note completed Khushi Mariedwell [place] [facility] [place] 08/15/2024 11:59:29 11/27/19 24 Cardiovascular Surgery completed Prema Dominguez [place] [facility] [place] [facility] [place] 06/25/2024 13:58:00 07/07/20 23 placement of stent in coronary artery completed Earlene Kamara NP [address], [address], [place], [address], [place] [facility] [place] 07/13/2023 16:02:11 11/27/19 23 Cardiovascular Surgery completed Prema ERAZO - [facility] [place] 06/25/2024 13:58:00 06/27/20 17 colonoscopy completed DO [address], [place], [address], [place] [facility] [place] 01/23/2023 08:43:26 08/27/20 16 operation on lumbar spine completed DO [address], [place], [address], [place] [facility] [place] 01/23/2023 08:44:23 09/27/20 14 herniotomy of bilateral inguinal hernias completed DO [address], [place], [address], [place] [facility] [place] 01/23/2023 08:42:59 02/26/20 14 placement of stent in coronary artery completed Georgina Marshall DO [address], [place], [address], [facility] - [facility] & [place] 01/23/2023 08:43:13 11/27/19 14 Back Surgery completed Prema Dominguez [place] - [facility] & [place] 06/25/2024 13:43:45 11/27/19 13 Cholecystectomy completed Georgina Marshall DO [address], [place], [address], [facility] - [facility] & [place] 01/23/2023 08:42:23 11/27/19 12 arthroplasty of knee completed DO Kannan [address], [place], [address], [place] [facility] & [place] 01/23/2023 08:42:13 11/27/19 10 Elbow arthroscopy completed DO Kannan [address], [place], [address], [place] - [facility] & [place] 01/23/2023 08:42:40 EGD/Endoscopy completed Earlene Kamara NP [address] [place] [address], [address], [place], [address], [facility] - [facility] & [place] 07/13/2023 16:02:36 Imaging Results None recorded. Procedure Notes None recorded. Medical Equipment None Reported. Allergies Allergen ID Allergen Name Allergen Category Reaction Reaction Severity Criticality Documentation Date Start Date Code Code System Note Provider Name and Address Organization Details Recorded Time 02368 Penicilli n Not available Not available Not available Not available 08/29/2022 17207 RxNorm React ion: Unkno wn, sever ity: Unkno wn Not Available [facility] 02:56:23 66798 Product containin g penicilli n (product) medicatio n Not available Not available Not available 01/23/2023 56145 8001 SNOMED Agnes jansen, [place] - [facility] & [place] 10:57:42 Medications Name Sig Start Date Stop [...] Available Not Available Not Available Dexcom G6 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 01/23 completed [...] Last Updated DateTime 187.96 cm 30.2 kg/m2 616666. 57 g 98 % 98 % 98.1 [degF] 69 /min 72 /min 107 mm[Hg] 65 mm[Hg] Khushi Kapoor MD - NT [facility] & [place] 5 13:17:21 Date Recorded Body height Body mass index (BMI) Body weight Systolic blood pressure Diastolic blood pressure Provider Name and Address Organization Details Last Updated DateTime 03/01/2024 187.96 cm 29.9 kg/m2 284495.0 2 g 128 mm[Hg] 78 mm[Hg] Agnes Holman [facility] & [place] 4 09:40:37 Date Recorded Body height Body mass index (BMI) Body weight Body temperature Oxygen saturation Oxygen saturation in Arterial blood by Pulse oximetry Heart rate Provider Name and Address Organization Details Last Updated DateTime 4 187.96 cm 29.9 kg/m2 999944. 02 g 97.4 [degF] 97 % 97 % 76 /min Prema Dominguez [facility] & [place] 4 13:57:45 Date Recorded Body height Body mass index (BMI) Body weight Body temperature Oxygen saturation Oxygen saturation in Arterial blood by Pulse oximetry Heart rate Heart rate Systolic blood pressure Diastolic blood pressure Provider Name and Address Organization Details Last Updated DateTime 4 187.96 cm 31.3 kg/m2 474106. 38 g 98.4 [degF] 99 % 99 % 63 /min 68 /min 181 mm[Hg] 97 mm[Hg] Ralph Maya [facility] & [place] 4 10:20:26 Date Recorded Body height Body mass index (BMI) Body weight Heart rate Heart rate Oxygen saturation Oxygen saturation in Arterial blood by Pulse oximetry Body temperature Systolic blood pressure Diastolic blood pressure Provider Name and Address Organization Details Last Updated DateTime 4 187.96 cm 31.2 kg/m2 668113. 02 g 64 /min 66 /min 97 % 97 % 97.9 [degF] 105 mm[Hg] 66 mm[Hg] Khushi Kapoor [facility] & [place] 4 14:07:03 Social History Question Answer Notes LastModified by Organizat ion Details LastModified Time Tobacco Smoking Status Former Smoker Not Available [facility] 01/12/2023 08:18:40 Do You Have An Advance Directive? No [email or web address] Information not available 06/25/2024 Are You Blind Or Do You Have Difficulty Seeing? No [email or web address] Information not available 06/25/2024 What Is Your Level Of Caffeine Consumption? Occasional 2 Cups Coffee [email or web address] Information not available 01/23/2023 When Did You Quit Smoking? 16+yearssincel luz [email or web address] Information not available 01/23/2023 What Was The Date Of Your Most Recent Tobacco Screening? 07/09/2023 [email or web address] Information not available 06/25/2024 Do You Have Any Pets? No Information not available 01/23/2023 What Is Your Relationship Status? Lives With Spouse, House [email or web address] Information not available 01/23/2023 Are You Sexually Active? Yes Information not available 01/23/2023 At What Age Did You Start Smoking Tobacco? 17 Information not available 01/23/2023 Are You Currently In School? No Some College Information not available 01/23/2023 Sex: Unknown Functional Status Question Answer Note LastModified by Organizat ion Details LastModified Time Do you use any illicit or recreational drugs? No Information not available 01/23/2023 Do you or have you ever used any other forms of tobacco or nicotine? No [email or web address] Information not available 08/15/2024 What is your level of alcohol consumption? Occasional [email or web address] Information not available 06/25/2024 Do you or have you ever used smokeless tobacco? 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 No drives Information not available 01/23/2023 Are you able to care for yourself? Yes Information not available 01/23/2023 What is your exercise level? Occasional [email or web address] Information not available 06/25/2024 Mental Status Question Answer Note LastModified by Organization D etails LastModified Time Do you feel stressed (tense, restless, nervous, or anxious, or unable to sleep at night)? [id number] [email or web address] Information not available 06/25/2024 Family History Relationship Description Onset Age of this Age Resolved Age Notes LastModified by Organization Details LastModified Time Mother Diabetes mellitus [email or web address] Not available 2024 12:55:05 Mother Hypertensive disorder [email or web address] Not available 2022 08:40:08 Mother Kidney disease [email or web address] Not available 2022 08:40:17 Mother Headache [email or web address] Not availabl e 01/23/2023 08:40:26 Father Diabetes [...] SNOMED-CT Code Diagnosis ICD10 Code Diagnosis Note [id number] Georgina Marshall DO [facility] [address] [place] [address] 01/23/2023 10:25:40 01/23/2023 11:28:47 Cervical spondylosis without myelopathy 781583771 M47.812 Chronic condition that is stable. Continue with gabapentin at the current dose. He does not need refills today. Neuralgia 34584710 M79.2 Chronic condition that is stable. Continue with gabapentin at the current dose. Left foot drop 987517369 1 88013 M21.372 Chronic condition that is stable. No current therapy or equipment needs. Forgetful 10632526 R41.3 New issue with increased lack of focus and concentrat ion. He has poor sleep which I suspect is a major factor. Will check labs today. If normal consider increasing his gabapentin dose to 800mg qhs to see if that will afford him a more restful night. [id number] Earlene Kamara NP [address] [address] 07/12/2023 14:21:48 07/17/2023 12:16:12 Heartburn 79229310 R12 Occasional symptoms at this time. Diarrhea 33864134 R19.7 Several month history of worsening diarrhea [...] history, consider colonoscop y in 1 year. [id number] Georgina Marshall DO [facility] [address] [place] [address] 03/01/2024 09:36:06 03/01/2024 10:04:03 Cervical spondylosis without myelopathy 525252548 M47.812 Chronic condition that is stable. Continue with gabapentin at the current dose. He does need refills today. Neuralgia 18349301 M79.2 Chronic condition that is stable. Continue with gabapentin at the current dose. He does need refills today. Left foot drop 409065913 1 60616 M21.372 Chronic condition that is stable. No current therapy or equipment needs. Essential tremor 2979361 09 G25.0 New tremor in the last year. 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 He does find this socially embarrassi ng. We discussed primidone and propranolo l options. He was most comfortabl e with primidone. He is educated on how to take this medication and potential side effects. Will start a low dose and he will call with an update. [id number] LIVE [facility] [address] [place] [address] [address] [place] [address] 06/25/2024 13:01:20 06/25/2024 14:24:50 Pancreatitis 07346757 K85.90 patient developed acute left flank pain about a week after he had a heart stent placed in April. He was seen in the ED and [place] at which time he had elevated lipase [...] develop fever or worsening abdominal pain, n/v. 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 History of cholecystectomy 135925713 Z90.49 Screening for malignant neoplasm of colon 313386382 Z12.11 [id number] QUIANA MART Therapeuvic ic Intervent ions at [address] [place] [address] 09/10/2024 12:22:30 09/10/2024 15:49:54 [id number] AMINTA BARRETT NP [facility] [address] [address] 11/05/2024 13:48:49 11/05/2024 15:15:24 Chronic pancreatitis [id number] K86.1 Diarrhea 39408745 R19.7 Bile acid malabsorption syndrome 17118634 E78.70 History of cholecystectomy 495068061 Z90.49 Screening for malignant neoplasm of colon 666634768 Z12.11 Nausea 558780839 R11.0 History of Intestinal infection caused by Clostridioides difficile 1482258280 16882 Z86.19 Reactive gastropathy 399 434213 K31.9 [id number] AMINTA BARRETT NP [facility] [facility] [address] [facility] [place] Cat [id number] 01/14/2025 12:51:20 01/14/2025 14:01:20 Chronic pancreatitis 047114408 K86.1 Diarrhea 65319674 R19.7 Bile acid malabsorption syndrome 94592808 E78.70 History of cholecystectomy 424150428 Z90.49 Screening for malignant neoplasm of colon 237885201 Z12.11 Nausea 992341808 R11.0 History of Intestinal infection caused by Clostridioides difficile 8890512156 31350 Z86.19 Reactive gastropathy 399 843349 K31.9 Epigastric pain 76063114 R10.13 Health Concerns Section Related Observation LastModified by Organization Detai ls LastModified Time None Recorded Concern Status LastModified by Organization Details LastModified Time None Recorded Advance Directives Directive N: Payers Insurance Date Sequence Insurance Name Policy Number Policy Cohen Covered Member ID Cohen Member ID Guarantor Name 04/04/2025 1 [place]MEDICA[place]ACEMENT - HMO) Jonathan Delgado [id number] Jonathan Delgado 03/04/2024 2 [place] [id number] Jonathan Delgado [id number] Jonathan Delgado 06/25/2024 1 HUMANA (PP[place]) [id number] Jonathan Delgado [id number] Jonathan Delgado 11/05/2024 1 [place] [id number] Jonathan Delgado [id number] Jonathan Delgado 01/14/2025 1 [place] [id number] Jonathan Delgado [id number] Jonathan Delgado Notes Date Note Type Note [...] normal. He was diagnosed with a mild tseen's palsy. He did have full recovery of [...] long. No racing thoughts reported. Georgina Marshall, [address], [place], [address], [place] 03/01/2024 10:22:18 06/25/2024 text/html This is a [...] try to obtain records from. Aure Soliman [address], [address], [place], [address], [place] 06/26/2024 12:50:04 08/15/2024 text/html CURRENT (08/15/20 24 VBam Barrett):Mr. Delgado is a 53 year old man referred to use by Quyen Elizabeth APRN for acute pancreatitis. Patient developed acute left flank pain after cardiac catheterization and was seen in the ED at [facility]. CT scan reportedly showed acute pancreatitis [...] beverages and improve his diet. AMINTA BARRETT, GORE STITCHER [address], [place], [address], [place] 08/15/2024 14:51:19 11/05/2024 text/html PREVIOUS ( 024 Margarita Barrett):Mr. Delgado is a 53 year old man referred to use by Quyen Elizabeth APRN for acute pancreatitis. Patient developed acute left flank pain after cardiac catheterization and was seen in the ED at [facility]. CT scan reportedly showed acute pancreatitis [...] continuous nausea. He is not on acid smash fixer. Denies any weight loss, fevers or bloody stool. AMINTA BARRETT, GORE STITCHER [address] [facility], [place], [address], [place] 11/05/2024 15:41:48 01/14/2025 text/html PREVIOUS ( 024 Margarita Barrett):Mr. Delgado is a 53 year old man referred to use by Quyen Elizabeth APRN for acute pancreatitis. Patient developed acute left flank pain after cardiac catheterization and was seen in the ED at [facility]. CT scan reportedly showed acute pancreatitis [...] continuous nausea. He is not on acid smash fixer. Denies any weight loss, fevers or bloody [...] Denies any new GI symptoms. AMINTA BARRETT, GORE STITCHER [address], [place], [address], [facility] - [place] - [place] 01/14/2025 21:54:23
--- OUTSIDE RECORDS SUMMARY | 2025-05-12 16:47 | XMS_ITS | Referral Summary ---
Author Organization [employer] Address [address] [place] [address] Care Team Providers Care Automobiles Salesperson Name Role Phone Unavailable Primary Care Provider [...]
--- OUTSIDE RECORDS SUMMARY | 2025-05-12 16:47 | XMS_ITS | Encounter Summary ---
Author Organization [employer] i[employer] Address [address] [place] [address] Care Team Providers Care Channel Specialist Name Role Phone Unavailable Primary Care Provider Unavailabl e Encounter Details Date Type Department Care Team (Late st Contact Info) Description 01/20/2020 Transcribed Document [facility] Radiology 1 [place] [address] Paresh Bravo MD [address] [place] [address] Social History Tobacco Use Types Packs/Day [...] mg, 18 mL, 136 mL/Hr, IV Piggyback, [id number] DAPTOmycin + Sodium Chloride 0.9% intravenous solution 50 mL: 900 mg, 18 mL, 136 mL/Hr, IV Piggyback, [id number] DuoNeb 0.5 mg-2.5 mg/3 mL inhalation solution: [...] mL: 2 Gram, 100 mL/Hr, IV Piggyback, [id number] Tylenol: 650 mg, Oral, Q4H, PRN: Other [...] 0.9% 50 mL 2 Gram, IV Piggyback, [id number] DAPTOmycin + NaCl 0.9% 50 mL 900 mg 18 mL, IV Piggyback, [id number] DAPTOmycin + NaCl 0.9% 50 mL 900 mg 18 mL, IV Piggyback, G02LHgp famotidine 20 mg tab 20 mg 1 [...] History of obstructive sleep apnea / IMO [id number] / Confirmed, Active Problems (11) Angina Coronary [...] 42.9 \ Radiology Results (Last 48 hours) [id number] -- 01/19/2020 15:12 CR Chest 2 Vws [...] 50 mL) 2 Gram, IV Piggyback, Inj, [id number], infuse over 30 Minute(s), Routine, Start 01/20/20 16:00:00 EST, 100 mL/Hr, Indication: Skin and Skin Structure Infection SARCINELLA, MYNOR, ROLL CONTOUR GRINDER DAPTOmycin + Sodium Chloride 0.9% intravenous solution 50 mL 900 mg, IV Piggyback, K55YZfc, infuse over 30 Minute(s), Routine, Start 01/20/20 21:00:00 EST, 136 mL/Hr, Indication: Skin and Skin Structure Infection SARCINELLA, MYNOR, ROLL CONTOUR GRINDER DAPTOmycin + Sodium Chloride 0.9% intravenous solution 50 mL 900 mg, IV Piggyback, S29QHen, infuse over 30 Minute(s), order duration: 1 Time(s), Routine, Start 01/19/20 16:00:00 EST, Stop 01/20/20 15:59:00 EST, 136 mL/Hr, Indication: Skin and Skin Structure Infection CHRISTIANOINELLA, MYNOR, ROLL CONTOUR GRINDER insulin glargine (Lantus) 18 Units, SubCutaneous, Inj, [...] solution 100 mL) 2 Gram, IV Piggyback, [id number], infuse over 30 Minute(s), Routine, Start 01/19/20 16:00:00 EST, 200 mL/Hr, Indication: Skin and Skin Structure Infection SARCINELLA, MYNOR, ROLL CONTOUR GRINDER meropenem + Sodium Chloride 0.9% intravenous solution [...]
--- OUTSIDE RECORDS SUMMARY | 2025-05-12 16:47 | XMS_ITS | Encounter Summary ---
Author Organization [employer] Address [address] [place] [address] Care Team Providers Care Commercial Litigation Associate Name Role Phone Unavailable Primary Care Provider Unavailabl e Encounter Details Date Type Department Care Team (Late st Contact Info) Description 01/18/2020 Transcribed Document [facility] Family Medicine [facility] [place] [address] ProviderLora MD [address] [place], [place] [address] Social History Tobacco Use Types Packs/Day Years Used Date Smoking Tobacco: Never Assessed Sex and Gender Information Value Date Recorded Sex Assigned at Not on file Legal Sex Male 5:25 PM CDT Gender Identity Not on file Sexual Orientation Not on file documented as of this encounter Miscellaneous Notes * Cerner Conversion Note - Historical ProviderMD - 01/18/2020 5:01 PM FUNERAL HOME ASSOCIATE Admission History, Adult Entered On: 01/18/2020 17:09 [...] #2 Relationship : , Primary Language : [place] Islander Communication Barrier : None Martha Daigle RN [...] Scale Risk Level : 0-24 Low Risk [place] Fall Interventions : Adequate lighting, Assistive devices [...] Source : Stated Height Entry Format : [place] Height, Feet : 6 ft(Converted to: 183 cm, 72 Inch) Height, Inches : 2 Inch(Converted to: 0 ft 2 Inch, 5.08 cm) Clinical Height : 187.96 cm Weight Source : Standing scale Weight Entry Format : [place] Clinical Dosing Weight : 107.27 kg Weight, Pounds : 236 lb Body Surface Area (BSA) : 2.33 m2 Body Mass Index : 30.4 kg/m2 (HI) [place] Body Weight : 81 kg Martha Daigle [...] Martha Daigle RN - 01/18/2020 17:01 EST Owen Suicide Severity Rating Scale (C-SSRS) CSSRS Past [...]
--- OUTSIDE RECORDS SUMMARY | 2025-05-12 16:47 | XMS_ITS | Encounter Summary ---
Author Organization [email or web address] Address [address] [place] [address] Care Team Providers Care Industrial Engineering Professor Name Role Phone Unavailable Primary Care Provider Unavailabl e Encounter Details Date Type Department Care Team (Late st Contact Info) Description 01/21/2020 Transcribed Document [facility] Family Medicine [address] [place] [address] ProviderLora MD [address] [place], [place] [address] Social History Tobacco Use Types Packs/Day Years Used Date Smoking Tobacco: Never Assessed Sex and Gender Information Value Date Recorded Sex Assigned at Not on file Legal Sex Male 5:25 PM CDT Gender Identity Not on file Sexual Orientation Not on file documented as of this encounter Miscellaneous Notes * Cerner Conversion Note - Historical ProviderMD - 01/21/2020 5:00 AM DOOR TRIMMER Chart Check - Review Order Profile Entered On: 01/21/2020 5:09 EST Performed On: 01/21/2020 5:00 EST by Rama Yeung, RN Chart Check Powerplans Initiated/Discontinued as Appropriate : Yes All Active Orders Reviewed : Yes Rama Yeung RN - 01/21/2020 5:09 EST documented in this encounter Plan of Treatment Not on file documented as of this encounter Visit Diagnoses Not on filedocumented in this encounter
--- OUTSIDE RECORDS SUMMARY | 2025-05-12 16:47 | XMS_ITS | Encounter Summary ---
Author Organization [employer] i[employer] Address [address] [place] [address] Care Team Providers Care Band Manager Name Role Phone Unavailable Primary Care Provider Unavailabl e Encounter Details Date Type Department Care Team (Late st Contact Info) Description 01/21/2020 Transcribed Document [facility] [place] [facility] [place] [address] ProviderLora MD [address] [place], [place] [id number] Social History Tobacco Use Types Packs/Day Years Used Date Smoking Tobacco: Never Assessed Sex and Gender Information Value Date Recorded Sex Assigned at Not on file Legal Sex Male 5:25 PM CDT Gender Identity Not on file Sexual Orientation Not on file documented as of this encounter Miscellaneous Notes * Cerner Conversion Note - Historical ProviderMD - 01/21/2020 2:32 PM NETWORKING SPECIALIST Nursing Discharge Summary Entered On: 01/21/2020 14:33 [...] - 01/21/2020 14:32 EST Electronically signed by [facility] Conversion Pre Certification Specialist Cerner at 03/17/2023 9:22 AM CDT documented in this encounter Plan of Treatment Not on file documented as of this encounter Visit Diagnoses Not on filedocumented in this encounter
--- OUTSIDE RECORDS SUMMARY | 2025-05-12 16:47 | XMS_ITS | Encounter Summary ---
Author Organization [employer] Address [address] [place] [address] Care Team Providers Care Group Home Manager Name Role Phone Unavailable Primary Care Provider Unavailabl e Encounter Details Date Type Department Care Team (Late st Contact Info) Description 01/20/2020 Transcribed Document [facility] Cardiology [address] [place] [address] [place] [address] [place] [address] [address] [place] [address] Social History Tobacco Use Types Packs/Day Years [...] None Author: JAYJAY SAMAYOA MD-CAR Basic Information Cognos Architect: Dr Sibley ([facility] for caths) Subjective NAD Health Status Current medications: (Selected) Inpatient Medications Ordered Ativan: 0.5 mg, IV Push, Q4H, PRN: Agitation DAPTOmycin + Sodium Chloride 0.9% intravenous solution 50 mL: 900 mg, 18 mL, 136 mL/Hr, IV Piggyback, [id number] DAPTOmycin + Sodium Chloride 0.9% intravenous solution 50 mL: 900 mg, 18 mL, 136 mL/Hr, IV Piggyback, [id number] DuoNeb 0.5 mg-2.5 mg/3 mL inhalation solution: [...] mL: 2 Gram, 100 mL/Hr, IV Piggyback, [id number] Tylenol: 650 mg, Oral, Q4H, PRN: Other [...] of motion, Normal strength. Integumentary: Warm, Dry, [place]. Neurologic: Alert, Oriented. Psychiatric: Cooperative, Appropriate mood & affect. Results Review JAN 20 06:38 \ 13.9 / 6.5 190 / 42.9 \ Radiology Results (Last 48 hours) [id number] -- 01/19/2020 15:12 CR Chest 2 Vws [...] time Continue aspirin, statin Follow-up with primary web press jogger in 2 weeks 01/19/2020 I do not [...]
--- OUTSIDE RECORDS SUMMARY | 2025-05-12 16:47 | XMS_ITS | Clinical Summary ---
Author Organization Healthcare Address [address] [place] [address] Care Team Providers Care Milk Runner Name Role Phone Quyen Vincent DO Primary Care Provider Encounters Date Type Department Care Team Description 05/05/2025 Telephone [place] [facility] Medicine Specialties [address] [place] [address] None, None from Last 3 [...] Info) Description 06/03/2025 8:00 AM EDT Consult [facility] Medicine Specialties [address] [place] [address] Kerline Holcomb R, SALES REP [address] [place] [address] Health Maintenance Due Date Last [...] 2020 UKY-Zoster Vaccines (1 of 2) 2020 NPF-ANGIC-01 Vaccine (3 - 2023- season) 2024 03/10/2021, [...] patient's age to complete this topic [place] [address] [employer] MEDICAID Care Teams Milk Runner Relationship Specialty Start Date End Date Quyen Vincent DO [address] [place] [address] [place] [address] PCP - General 04/09/21
--- OUTSIDE RECORDS SUMMARY | 2025-05-12 16:47 | XMS_ITS | Encounter Summary ---
Author Organization [email or web address] Address [address] [place] [address] Care Team Providers Care Dress Cap Maker Name Role Phone Unavailable Primary Care Provider Unavailabl e Encounter Details Date Type Department Care Team (Late st Contact Info) Description 01/20/2020 Transcribed Document [facility] [place] [facility] [place] [address] ProviderLora MD [address] [place] [address] Social History Tobacco Use Types Packs/Day Years Used Date Smoking Tobacco: Never Assessed Sex and Gender Information Value Date Recorded Sex Assigned at Not on file Legal Sex Male 5:25 PM CDT Gender Identity Not on file Sexual Orientation Not on file documented as of this encounter Miscellaneous Notes * Cerner Conversion Note - Historical ProviderMD - 01/20/2020 11:52 AM AIR BAG BUILDER Patient: JONATHAN DELGADO Age: 49 years Sex: [...] hyperlipidemia and hypertension. He originally presented to [facility] with complaints of left foot [...] that due to a disagreement with the felled seam operator chainstitch that was on duty they requested transfer from that facility to here. Labs at outside hospital showed patient was without leukocytosis and was generally unremarkable. Cultures were obtained and patient was given 2 g IV Rocephin. He did receive a foot x-ray while at [facility] but the report did not accopany the [...] NGSF Rad: Radiology Results (Last 48 hours) [id number] -- 01/19/2020 15:12 CR Chest 2 Vws [...]
--- OUTSIDE RECORDS SUMMARY | 2025-05-12 16:47 | XMS_ITS | Encounter Summary ---
Author Organization [employer] Address [address] [place] [address] Care Team Providers Care Chief Console Operator Name Role Phone Unavailable Primary Care Provider Unavailabl e Encounter Details Date Type Department Care Team (Late st Contact Info) Description 01/18/2020 Transcribed Document [facility] [place] [facility] [place] [address] ProviderLora MD [address] [place], [place] [id number] Social History Tobacco Use Types Packs/Day Years Used Date Smoking Tobacco: Never Assessed Sex and Gender Information Value Date Recorded Sex Assigned at Not on file Legal Sex Male 5:25 PM CDT Gender Identity Not on file Sexual Orientation Not on file documented as of this encounter Miscellaneous Notes * Cerner Conversion Note - Historical ProviderMD - 01/18/2020 5:50 PM FOOD SERVICE COORDINATOR Pain Assessment Entered On: 01/21/2020 5:08 EST [...]
--- OUTSIDE RECORDS SUMMARY | 2025-05-12 16:47 | XMS_ITS | Encounter Summary ---
Author Organization Healthcare Address [address] [place] [address] Care Team Providers Care Hot Metal Charger Name Role Phone Quyen Vincent DO Primary Care Provider [phone] Encounter Details Date Type Department Care Team (Late st Contact Info) Description 05/05/2025 Telephone [place] [facility] Medicine Specialties [address] [place] [address] None, None [address] [place] [address] Social History Tobacco Use Types [...] him back to schedule. Best contact number: [phone] (mobile) Optimal time of day to reach [...] will receive notification of the communication/outcome via Neterion. documented in this encounter Plan of Treatment Upcoming Encounters Date Type Department Care Team (Late st Contact Info) Description 06/03/2025 8:00 AM EDT Consult [facility] Medicine Specialties [address] [place] [address] Aicha, November R, GENETIC PHYSICIAN [address] [place] [address] documented as of this encounter Visit Diagnoses Not on filedocumented in this encounter Care Teams Hot Metal Charger Relationship Specialty Start Date End Date Quyen Vincent DO [address] [place] [address] PCP - General 04/09/21 documented as of this encounter
--- OUTSIDE RECORDS SUMMARY | 2025-05-12 16:47 | XMS_ITS | Encounter Summary ---
Author Organization [employer] Address [address] [place] [address] Care Team Providers Care Railroad Firer Name Role Phone Unavailable Primary Care Provider Unavailabl e Encounter Details Date Type Department Care Team (Late st Contact Info) Description 01/20/2020 Transcribed Document [facility] Family Medicine [address] [place] [address] ProviderLora MD [address] [place], [place] [address] Social History Tobacco Use Types Packs/Day Years Used Date Smoking Tobacco: Never Assessed Sex and Gender Information Value Date Recorded Sex Assigned at Not on file Legal Sex Male 5:25 PM CDT Gender Identity Not on file Sexual Orientation Not on file documented as of this encounter Miscellaneous Notes * Cerner Conversion Note - Historical ProviderMD - 01/20/2020 9:00 AM ELASTIC TAPE INSERTER Consult Phone Call Documentation Entered On: 01/20/2020 [...]
--- OUTSIDE RECORDS SUMMARY | 2025-05-12 16:47 | XMS_ITS | Encounter Summary ---
Author Organization [employer] Address [address] [place] [address] Care Team Providers Care Quarter Supervisor Name Role Phone Unavailable Primary Care Provider Unavailabl e Encounter Details Date Type Department Care Team (Late st Contact Info) Description 01/19/2020 Transcribed Document [facility] Radiology 1 [place] [address] Paresh Bravo MD [address] [place] [address] [address] Social History Tobacco Use Types [...] History of obstructive sleep apnea / IMO [id number] / Confirmed, Active Problems (11) Angina Coronary [...] 1.10 \ Radiology Results (Last 48 hours) [id number] -- 01/18/2020 16:50 CR Chest 2 Vws [...]
--- OUTSIDE RECORDS SUMMARY | 2025-05-12 16:47 | XMS_ITS | Encounter Summary ---
Author Organization [employer] Address [address] [place] [address] Care Team Providers Care Italian Lecturer Name Role Phone Unavailable Primary Care Provider Unavailabl e Encounter Details Date Type Department Care Team (Late st Contact Info) Description 01/18/2020 Transcribed Document [facility] Family Medicine [facility] [place] [address] ProviderLora MD [facility] [place] [id number] Social History Tobacco Use Types Packs/Day Years Used Date Smoking Tobacco: Never Assessed Sex and Gender Information Value Date Recorded Sex Assigned at Not on file Legal Sex Male 5:25 PM CDT Gender Identity Not on file Sexual Orientation Not on file documented as of this encounter Miscellaneous Notes * Cerner Conversion Note - Historical ProviderMD - 01/18/2020 9:06 PM DROP WIRE STRINGER DATE OF ADMISSION: 01/18/2020 PRIMARY CARE PHYSICIAN: [...] patient has been evaluated and transferred to [facility]. The patient came in. Blood work done [...] will check x-ray. We will consult the leadership program internship. Start IV antibiotic. 3. Diabetes mellitus. The [...] Chart was reviewed. Time spent, 55 minutes. /[id number] MD GABY Malloy/KELLEY / GABY / MODL Electronically signed by Stefanie, [facility] Conversion Practice Administrator Cerner at 03/17/2023 9:14 AM CDT documented in this encounter Plan of Treatment Not on file documented as of this encounter Visit Diagnoses Not on filedocumented in this encounter
--- OUTSIDE RECORDS SUMMARY | 2025-05-12 16:47 | XMS_ITS | Encounter Summary ---
Author Organization [employer] Address [address] [place] [address] Care Team Providers Care Lead Nuclear Medicine Technologist Name Role Phone Unavailable Primary Care Provider Unavailabl e Encounter Details Date Type Department Care Team (Late st Contact Info) Description 01/20/2020 Transcribed Document [facility] [place] [address] [place] [address] ProviderLora MD [address] [place], [place] [address] Social History Tobacco Use Types Packs/Day Years Used Date Smoking Tobacco: Never Assessed Sex and Gender Information Value Date Recorded Sex Assigned at Not on file Legal Sex Male 5:25 PM CDT Gender Identity Not on file Sexual Orientation Not on file documented as of this encounter Miscellaneous Notes * Cerner Conversion Note - Historical ProviderMD - 01/20/2020 2:00 AM LUTE PACKER OR APPLIER Offset Label Rewinder Details Entered On: 01/20/2020 3:34 EST Performed [...]
--- OUTSIDE RECORDS SUMMARY | 2025-05-12 16:47 | XMS_ITS | Encounter Summary ---
Author Organization [employer] Address [address] [place] [address] Care Team Providers Care Fermenter Wine Name Role Phone Unavailable Primary Care Provider Unavailabl e Encounter Details Date Type Department Care Team (Late st Contact Info) Description 01/19/2020 Transcribed Document [facility] [place] [address] [place] [address] ProviderLora MD [address] [place], [place] [id number] Social History Tobacco Use Types Packs/Day Years Used Date Smoking Tobacco: Never Assessed Sex and Gender Information Value Date Recorded Sex Assigned at Not on file Legal Sex Male 5:25 PM CDT Gender Identity Not on file Sexual Orientation Not on file documented as of this encounter Miscellaneous Notes * Cerner Conversion Note - Historical ProviderMD - 01/19/2020 9:00 AM SBA BUSINESS DEVELOPMENT OFFICER Consult Phone Call Documentation Entered On: 01/19/2020 10:28 EST Performed On: 01/19/2020 9:00 EST by Jessica Johnson [facility] Coord Phone Call for Consults Consult Phone Call/Page Attempt : Second call Consult Reason : foot cellulitis Physician Requesting Consult : CONRAD GARDNER MD-[facility] Physician Requested for Consult : TANISHA AMAYA DPM-POD Provider Service Notified Name : Podiatry Physician Covering for Consult : CHERISE HOWELL DPM-TOMMY Date and Time Call Returned : 01/19/2020 10:28 EST Jessica Johnson [facility] Coord - 01/19/2020 10:27 EST Electronically signed by [facility] Conversion Ortho Nurse Cerner at 03/17/2023 9:14 AM CDT documented in this encounter Plan of Treatment Not on file documented as of this encounter Visit Diagnoses Not on filedocumented in this encounter
--- OUTSIDE RECORDS SUMMARY | 2025-05-12 16:47 | XMS_ITS | Encounter Summary ---
Author Organization [employer] Address [address] [place] [address] Care Team Providers Care Customs Manager Name Role Phone Unavailable Primary Care Provider Unavailabl e Encounter Details Date Type Department Care Team (Late st Contact Info) Description 01/19/2020 Transcribed Document [facility] [place] [address] [place] [address] ProviderLora MD [address] [place], [place] [address] Social History Tobacco Use Types Packs/Day Years Used Date Smoking Tobacco: Never Assessed Sex and Gender Information Value Date Recorded Sex Assigned at Not on file Legal Sex Male 5:25 PM CDT Gender Identity Not on file Sexual Orientation Not on file documented as of this encounter Miscellaneous Notes * Cerner Conversion Note - Historical ProviderMD - 01/19/2020 9:00 AM ICE CREAM SHOP ASSOCIATE Consult Phone Call Documentation Entered On: 01/19/2020 11:27 EST Performed On: 01/19/2020 9:00 EST by Jessica Johnson [facility] Coord Phone Call for Consults Consult Phone Call/Page Attempt : First call Consult Reason : PVD/ CAD Physician Requesting Consult : CONRAD GARDNER MD-[facility] Physician Requested for Consult : RIGO KAISER MD-CAR Provider Service Notified Name : Cardiology Physician Covering for Consult : MADHU MARTIN PAC-CAT Date and Time Call Returned : 01/19/2020 11:27 EST Jessica Johnson [facility] Coord - 01/19/2020 11:26 EST Electronically signed by Stefanie [facility] Conversion Search Engine Optimization Manager Cerner at 03/17/2023 9:29 AM CDT documented in this encounter Plan of Treatment Not on file documented as of this encounter Visit Diagnoses Not on filedocumented in this encounter
--- OUTSIDE RECORDS SUMMARY | 2025-05-12 16:47 | XMS_ITS | Encounter Summary ---
Author Organization [employer] Address [address] [place] [address] Care Team Providers Care Automotive Product Specialist Name Role Phone Unavailable Primary Care Provider Unavailabl e Encounter Details Date Type Department Care Team (Late st Contact Info) Description 01/21/2020 Transcribed Document [facility] [place] [facility] [place] [address] ProviderLora MD [address] [place] [address] Social History Tobacco Use Types Packs/Day Years Used Date Smoking Tobacco: Never Assessed Sex and Gender Information Value Date Recorded Sex Assigned at Not on file Legal Sex Male 5:25 PM CDT Gender Identity Not on file Sexual Orientation Not on file documented as of this encounter Miscellaneous Notes * Cerner Conversion Note - Lora ProviderMD - 01/21/2020 1:00 PM CALENDER ROLL OPERATOR [place] [address] JONATHAN DELGADO :1970 Visit Time:01/19/2020 Your [...] ID, Ins Co-pay Where: [address] [place] [address]- Follow Up with CHERISE HOWELL When 01/27/2020 01:40 PM EST Comments Appointment has been made Bring discharge instructions with you Bring Ins Card, Photo ID, Ins Co-pay Where: [address] [facility] [address] [place] [address]- Business (1) Follow Up with MARA FLORES When 01/22/2020 01:30 PM EST Comments Appointment has been madeBring discharge instructions with you Bring Ins Card, Photo ID, Ins Co-pay Where: [address] [place] [address]- Business (1) Medications What How [...] that you work with a diet and consumer relations specialist (dietitian) to make a meal plan [...] provider. ??? Work with a counselor or gaming host to identify strategies to manage stress and any emotional and social challenges. Questions to ask a health care provider ??? Do I need to meet with a gaming host? Do I need to meet with a dietitian? What number can I call if I have questions? When are the best times to check my blood glucose? Where to find more information: ??? [place] Diabetes Association: diabetes.org ??? Academy of Nutrition and Dietetics: www.eatright.org ??? National [place] of Diabetes and Digestive and Kidney Diseases (NIH): www.niddk.nih.gov Summary ??? A healthy meal plan will help you control your blood glucose and maintain a healthy lifestyle. ??? Working with a diet and consumer relations specialist (dietitian) can help you make a [...] 08/10/2006 Document Revised: 06/13/2018 Document Reviewed: 12/18/2017 [employer] Patient Education ?? 2019 [employer]. Carbohydrate Counting for Diabetes Mellitus, Adult [...] different for every person. A diet and consumer relations specialist (registered dietitian) can help you make [...] of carbohydrates: ? hamburger bun or ?? Syriac muffin. ? oz (15 mL) syrup. ? [...] foods that contain carbohydrates: ??? Rice. ??? Central. ??? Milk. ??? Strawberries. 2. Calculate how [...] manage your diabetes. ??? A diet and consumer relations specialist (registered dietitian) can help you make a meal plan and calculate how many carbohydrates you should have at each meal and snack. This information is not intended to replace advice given to you by your health care provider. Make sure you discuss any questions you have with your health care provider. Document Released: 11/13/2006 Document Revised: 05/23/2018 Document Reviewed: 04/26/2017 [employer] Patient Education ?? 2019 [employer]. Incision and Drainage, Care After Refer [...] Follow these instructions at home: ??? Take uhlp-njw-gszituw and prescription medicines only as told by [...] and water are not available, use hand ve teacher. ? When you should remove your dressing. [...] 02/04/2013 Document Revised: 04/14/2017 Document Reviewed: 09/02/2016 [employer] Patient Education ?? 2019 [employer]. Diabetes and Foot Care Diabetes may [...] 11/10/2001 Document Revised: 04/20/2017 Document Reviewed: 04/22/2014 [employer] Patient Education ?? 2017 [employer]. oxycodone (ox i KOE done) Oxaydo, OxyCONTIN, [...] The extended-release form of oxycodone is for epaknd-sux-vfpqz treatment of pain and should not be [...] against the law. Stop taking all other hphlqf-hcq-qllsv narcotic pain medicines when you start taking [...] may report side effects to FDA at 0-747-LSE-1937. What other drugs will affect oxycodone? You [...] may affect oxycodone. This includes prescription and wmpf-fny-wiemvcb medicines, vitamins, and herbal products. Not all [...] to ensure that the information provided by [employer]. ('Multum') is accurate, up-to-date, and complete, but no guarantee is made to that effect. Drug information contained herein may be time sensitive. Runner information has been compiled for use by healthcare practitioners and consumers in the [place] and therefore Runner does not warrant that uses outside of the [place] are appropriate, unless specifically indicated otherwise. ETF.coms drug information does not endorse drugs, diagnose patients or recommend therapy. ETF.coms drug information is an informational resource designed [...] effective or appropriate for any given patient. Runner does not assume any responsibility for any aspect of healthcare administered with the aid of information Runner provides. The information contained herein is not intended to cover all possible uses, directions, precautions, warnings, drug interactions, allergic reactions, or adverse effects. If you have questions about the drugs you are taking, check with your doctor, nurse or pharmacist. Copyright 3891-1491 [employer]. Version: 13.03. Revision Date: 09/09/2019. lactobacillus acidophilus [...] may report side effects to FDA at 8-623-HEL-5978. What other drugs will affect lactobacillus acidophilus? Do not take lactobacillus acidophilus without medical advice if you are using any medications that can weaken your immune system, such as: ?? medicine to prevent organ transplant rejection; or ?? steroid medicine (prednisone, dexamethasone, methylprednisolone, and others). This list is not complete. Other drugs may interact with lactobacillus acidophilus, including prescription and jkot-xfb-egwpocv medicines, vitamins, and herbal products. Not all [...] to ensure that the information provided by Vicino. ('Multum') is accurate, up-to-date, and complete, but no guarantee is made to that effect. Drug information contained herein may be time sensitive. Runner information has been compiled for use by healthcare practitioners and consumers in the [place] and therefore Runner does not warrant that uses outside of the [place] are appropriate, unless specifically indicated otherwise. ETF.coms drug information does not endorse drugs, diagnose patients or recommend therapy. [employer] drug information is an informational resource designed [...] effective or appropriate for any given patient. Runner does not assume any responsibility for any aspect of healthcare administered with the aid of information Runner provides. The information contained herein is not intended to cover all possible uses, directions, precautions, warnings, drug interactions, allergic reactions, or adverse effects. If you have questions about the drugs you are taking, check with your doctor, nurse or pharmacist. Copyright 5033-7206 [employer]. Version: 3.07. Revision Date: 05/05/2017. Emergency Awareness [...] Assistance with quitting is available by contacting 3-838-HNYG-NOW. This is a free resource providing counseling, [...] range between ( 0.0 and 7.0 ) Coffee #: 0.59 K/uL -- Normal range between ( 0.16 and 1.00 ) Eos #: 0.26 x10(3)/uL -- Normal range between ( 0.00 and 0.80 ) Coffee %: 9.1 % -- Normal range between [...] was given the opportunity to ask questions. Patient/Epidemiologist Name: Patient/Epidemiologist Signature: Relationship to Patient: Clinician/Hospital Epidemiologist Signature: Date: documented in this encounter Plan of Treatment Not on file documented as of this encounter Visit Diagnoses Not on filedocumented in this encounter
--- OUTSIDE RECORDS SUMMARY | 2025-05-12 16:47 | XMS_ITS | Encounter Summary ---
Author Organization [employer] Address [address] [place] [address] Care Team Providers Care Gas Booster Engineer Name Role Phone Unavailable Primary Care Provider Unavailabl e Encounter Details Date Type Department Care Team (Late st Contact Info) Description 01/19/2020 Transcribed Document [facility] [place] [facility] [place] [address] ProviderLora MD [address] [place], [place] [address] Social History Tobacco Use Types Packs/Day Years Used Date Smoking Tobacco: Never Assessed Sex and Gender Information Value Date Recorded Sex Assigned at Not on file Legal Sex Male 5:25 PM CDT Gender Identity Not on file Sexual Orientation Not on file documented as of this encounter Miscellaneous Notes * Cerner Conversion Note - Historical ProviderMD - 01/19/2020 12:32 PM FIXING CARPENTER Patient: JONATHAN DELGADO Age: 49 Years Sex: [...] Information Primary Care Physician - ADRIAN DELACRUZ DO-[facility] Attending Physician - PARESH CARRASCO MD-INT Admitting [...] pt quit smoking in 2000. Diagnostic Results [facility] REPORT LEFT FOOT SERIES HISTORY: [...] 01/18/2020 18:32 EST Electronically signed by Stefanie, [facility] Conversion Equipment Maint Tech Cerner at 03/17/2023 9:22 AM CDT documented in this encounter Plan of Treatment Not on file documented as of this encounter Visit Diagnoses Not on filedocumented in this encounter
== END 2025-05-12 23:59 | disposition home or self-care (01) ==
LOC: RAD 16:44
PROVIDERS: PCP Family Medicine; Visit Provider Specialist/Technologist Athletic Trainer
DX: M99.71 Connective tissue and disc stenosis of intervertebral foramina of cervical region (principal)
CPT/HCPCS: 72141

== ENCOUNTER 2025-05-19 09:48 | Outpatient (CLI) | payer MEDICAID, SELFPAY ==
--- OUTSIDE RECORDS SUMMARY | 2025-05-19 10:16 | XMS_ITS | Encounter Summary ---
Author Organization [employer] Address [address] [place] [address] Care Team Providers Care Terminal Manager Name Role Phone Unavailable Primary Care Provider Unavailabl e Encounter Details Date Type Department Care Team (Late st Contact Info) Description 01/21/2020 Transcribed Document [facility] [place] [facility] [place] [address] ProviderLora MD [address] [place], [place] [id number] Social History Tobacco Use Types Packs/Day Years Used Date Smoking Tobacco: Never Assessed Sex and Gender Information Value Date Recorded Sex Assigned at Not on file Legal Sex Male 5:25 PM CDT Gender Identity Not on file Sexual Orientation Not on file documented as of this encounter Miscellaneous Notes * Cerner Conversion Note - Historical ProviderMD - 01/21/2020 12:11 PM SCREEN PRINTING EQUIPMENT SETTER Final Discharge Planning Entered On: 01/21/2020 12:15 [...] : Yes Discharge To Care Management : Home/Residential/Long-Term or Self Care -01 SANDY LEIJA, RN-Care Management - 01/21/2020 12:11 EST Final Narrative Note Final Narrative Note : Discharging today w/f/u appt made w/ID along w/plans for IV abx therapy beginning tomorrow w/[facility] SANDY LEIJA RN-Care Management - 01/21/2020 12:11 EST Electronically signed by [facility] Conversion Shrimp Header Cerner at 03/17/2023 9:46 AM CDT documented in this encounter Plan of Treatment Not on file documented as of this encounter Visit Diagnoses Not on filedocumented in this encounter
--- OUTSIDE RECORDS SUMMARY | 2025-05-19 10:16 | XMS_ITS | Clinical Summary ---
Author Organization [employer] Address [address] [place] [address] Care Team Providers Care Set Up And Charger Name Role Phone Unavailable Primary Care Provider [...]
--- OUTSIDE RECORDS SUMMARY | 2025-05-19 10:17 | XMS_ITS | Encounter Summary ---
Author Organization [employer] Address [address] [place] [address] Care Team Providers Care Quality Assistant Name Role Phone Unavailable Primary Care Provider Unavailabl e Encounter Details Date Type Department Care Team (Late st Contact Info) Description 01/20/2020 Transcribed Document [facility] Cardiology [address] [place] [id number] [place] [address] [place] [address] [address] [place] [address] Social History Tobacco Use Types Packs/Day Years [...] None Author: JAYJAY SAMAYOA MD-CAR Basic Information [place] Line Attendant: Dr Sibley ([facility] for caths) Subjective NAD Health Status Current medications: (Selected) Inpatient Medications Ordered Ativan: 0.5 mg, IV Push, Q4H, PRN: Agitation DAPTOmycin + Sodium Chloride 0.9% intravenous solution 50 mL: 900 mg, 18 mL, 136 mL/Hr, IV Piggyback, [id number] DAPTOmycin + Sodium Chloride 0.9% intravenous solution 50 mL: 900 mg, 18 mL, 136 mL/Hr, IV Piggyback, [id number] DuoNeb 0.5 mg-2.5 mg/3 mL inhalation solution: [...] mL: 2 Gram, 100 mL/Hr, IV Piggyback, [id number] Tylenol: 650 mg, Oral, Q4H, PRN: Other [...] of motion, Normal strength. Integumentary: Warm, Dry, [place]. Neurologic: Alert, Oriented. Psychiatric: Cooperative, Appropriate mood & affect. Results Review JAN 20 06:38 \ 13.9 / 6.5 190 / 42.9 \ Radiology Results (Last 48 hours) [id number] -- 01/19/2020 15:12 CR Chest 2 Vws [...] time Continue aspirin, statin Follow-up with primary ship yard electrical person in 2 weeks 01/19/2020 I do not [...]
--- OUTSIDE RECORDS SUMMARY | 2025-05-19 10:17 | XMS_ITS | Encounter Summary ---
Author Organization [employer] Address [address] [place] [address] Care Team Providers Care Flight Line Mechanic Name Role Phone Unavailable Primary Care Provider Unavailabl e Encounter Details Date Type Department Care Team (Late st Contact Info) Description 01/20/2020 Transcribed Document [facility] [place] [address] [place] [address] ProviderLora MD [address] [place], [place] [address] Social History Tobacco Use Types Packs/Day Years Used Date Smoking Tobacco: Never Assessed Sex and Gender Information Value Date Recorded Sex Assigned at Not on file Legal Sex Male 5:25 PM CDT Gender Identity Not on file Sexual Orientation Not on file documented as of this encounter Miscellaneous Notes * Cerner Conversion Note - Historical ProviderMD - 01/20/2020 2:00 AM PRESIDENT [employer] Carbonation Equipment Tender Details Entered On: 01/20/2020 3:34 EST Performed On: 01/20/2020 2:00 EST by Mary Jane Burnham RN Order Details Transport Mode Order Detail : Wheelchair Isolation Precautions Order Detail : Standard Precautions Order Detail : N/A Lift/Transfer : Independent Central Line Order Detail : No Room Service : Appropriate Arterial Line : No Mary Jane Burnham RN - 01/20/2020 3:34 EST Electronically signed by Cathryn Watts Conversion Telephone Answering Service Operator Cerner at 03/17/2023 9:42 AM CDT documented in this encounter Plan of Treatment Not on file documented as of this encounter Visit Diagnoses Not on filedocumented in this encounter
--- OUTSIDE RECORDS SUMMARY | 2025-05-19 10:17 | XMS_ITS | Encounter Summary ---
Author Organization [employer] Address [address] [place] [address] Care Team Providers Care Manager Intranet Name Role Phone Unavailable Primary Care Provider Unavailabl e Encounter Details Date Type Department Care Team (Late st Contact Info) Description 01/19/2020 Transcribed Document [facility] [place] [address] [place] [address] ProviderLora MD [address] [place], [place] [address] Social History Tobacco Use Types Packs/Day Years Used Date Smoking Tobacco: Never Assessed Sex and Gender Information Value Date Recorded Sex Assigned at Not on file Legal Sex Male 5:25 PM CDT Gender Identity Not on file Sexual Orientation Not on file documented as of this encounter Miscellaneous Notes * Cerner Conversion Note - Historical ProviderMD - 01/19/2020 2:00 AM CARTON PACKAGING MACHINE OPERATOR Supervisor Matrix Details Entered On: 01/19/2020 3:19 EST Performed [...]
--- OUTSIDE RECORDS SUMMARY | 2025-05-19 10:17 | XMS_ITS | Encounter Summary ---
Author Organization [employer] Address [address] [place] [address] Care Team Providers Care Information Services Manager Name Role Phone Unavailable Primary Care Provider Unavailabl e Encounter Details Date Type Department Care Team (Late st Contact Info) Description 01/20/2020 Transcribed Document [facility] Radiology [address] [place] [address] Paresh Bravo MD [address] [place] [address] Social History Tobacco Use Types Packs/Day [...] mg, 18 mL, 136 mL/Hr, IV Piggyback, [id number] DAPTOmycin + Sodium Chloride 0.9% intravenous solution 50 mL: 900 mg, 18 mL, 136 mL/Hr, IV Piggyback, [id number] DuoNeb 0.5 mg-2.5 mg/3 mL inhalation solution: [...] mL: 2 Gram, 100 mL/Hr, IV Piggyback, [id number] Tylenol: 650 mg, Oral, Q4H, PRN: Other [...] 0.9% 50 mL 2 Gram, IV Piggyback, [id number] DAPTOmycin + NaCl 0.9% 50 mL 900 mg 18 mL, IV Piggyback, [id number] DAPTOmycin + NaCl 0.9% 50 mL 900 mg 18 mL, IV Piggyback, [id number] famotidine 20 mg tab 20 mg 1 [...] History of obstructive sleep apnea / [id number] [id number] / Confirmed, Active Problems (11) Angina Coronary [...] 42.9 \ Radiology Results (Last 48 hours) [id number] -- 01/19/2020 15:12 CR Chest 2 Vws [...] 50 mL) 2 Gram, IV Piggyback, Inj, J63LTup, infuse over 30 Minute(s), Routine, Start 01/20/20 16:00:00 EST, 100 mL/Hr, Indication: Skin and Skin Structure Infection SARCINELLA, MYNOR, CREATIVE COORDINATOR DAPTOmycin + Sodium Chloride 0.9% intravenous solution 50 mL 900 mg, IV Piggyback, [id number], infuse over 30 Minute(s), Routine, Start 01/20/20 21:00:00 EST, 136 mL/Hr, Indication: Skin and Skin Structure Infection SARCINELLA, MYNOR, CREATIVE COORDINATOR DAPTOmycin + Sodium Chloride 0.9% intravenous solution 50 mL 900 mg, IV Piggyback, E87QChi, infuse over 30 Minute(s), order duration: 1 Time(s), Routine, Start 01/19/20 16:00:00 EST, Stop 01/20/20 15:59:00 EST, 136 mL/Hr, Indication: Skin and Skin Structure Infection CHRISTIANOINELLA, MYNOR, CREATIVE COORDINATOR insulin glargine (Lantus) 18 Units, SubCutaneous, Inj, [...] solution 100 mL) 2 Gram, IV Piggyback, S49DLvl, infuse over 30 Minute(s), Routine, Start 01/19/20 16:00:00 EST, 200 mL/Hr, Indication: Skin and Skin Structure Infection SARCINELLA, MYNOR, CREATIVE COORDINATOR meropenem + Sodium Chloride 0.9% intravenous solution [...]
--- OUTSIDE RECORDS SUMMARY | 2025-05-19 10:17 | XMS_ITS | Encounter Summary ---
Author Organization [employer] Address [address] [place] [address] Care Team Providers Care Conveyor Worker Name Role Phone Unavailable Primary Care Provider Unavailabl e Encounter Details Date Type Department Care Team (Late st Contact Info) Description 01/19/2020 Transcribed Document [facility] [place] [address] [place] [address] ProviderLora MD [address] [place], [place] [address] Social History Tobacco Use Types Packs/Day Years Used Date Smoking Tobacco: Never Assessed Sex and Gender Information Value Date Recorded Sex Assigned at Not on file Legal Sex Male 5:25 PM CDT Gender Identity Not on file Sexual Orientation Not on file documented as of this encounter Miscellaneous Notes * Cerner Conversion Note - Historical ProviderMD - 01/19/2020 9:00 AM SAMPLES AND REPAIRS PREPARER Consult Phone Call Documentation Entered On: 01/19/2020 11:27 EST Performed On: 01/19/2020 9:00 EST by Jessica Johnson [facility] Coord Phone Call for Consults Consult Phone Call/Page Attempt : First call Consult Reason : PVD/ CAD Physician Requesting Consult : CONRAD GARDNER MD-[employer] Physician Requested for Consult : RIGO KAISER MD-CAR Provider Service Notified Name : Cardiology Physician Covering for Consult : MADHU MARTIN PAC-CAT Date and Time Call Returned : 01/19/2020 11:27 EST Jessica Johnson [facility] Coord - 01/19/2020 11:26 EST Electronically signed by Stefanie [facility] Conversion Ict Support Technicians Cerner at 03/17/2023 9:29 AM CDT documented in this encounter Plan of Treatment Not on file documented as of this encounter Visit Diagnoses Not on filedocumented in this encounter
--- OUTSIDE RECORDS SUMMARY | 2025-05-19 10:17 | XMS_ITS | Encounter Summary ---
Author Organization [employer] Address [address] [place] [address] Care Team Providers Care Profile Saw Operator Name Role Phone Unavailable Primary Care Provider Unavailabl e Encounter Details Date Type Department Care Team (Late st Contact Info) Description 01/20/2020 Transcribed Document [facility] [place] Family Medicine [address] [place] [address] ProviderLora MD [address] [place], [place] [address] Social History Tobacco Use Types Packs/Day Years Used Date Smoking Tobacco: Never Assessed Sex and Gender Information Value Date Recorded Sex Assigned at Not on file Legal Sex Male 5:25 PM CDT Gender Identity Not on file Sexual Orientation Not on file documented as of this encounter Miscellaneous Notes * Cerner Conversion Note - Historical ProviderMD - 01/20/2020 5:00 AM WAX ENGRAVER Chart Check - Review Order Profile Entered On: 01/20/2020 3:35 EST Performed On: 01/20/2020 5:00 EST by Mary Jane Burnham RN Chart Check Powerplans Initiated/Discontinued as Appropriate : Yes All Active Orders Reviewed : Yes Mary Jane Burnham RN - 01/20/2020 3:35 EST Electronically signed by Stefanie [facility] Conversion Money Market Clerk Cerner at 03/17/2023 9:36 AM CDT documented in this encounter Plan of Treatment Not on file documented as of this encounter Visit Diagnoses Not on filedocumented in this encounter
--- OUTSIDE RECORDS SUMMARY | 2025-05-19 10:17 | XMS_ITS | Encounter Summary ---
Author Organization [employer] Address [address] [place] [address] Care Team Providers Care Medical Lab Technologist Name Role Phone Unavailable Primary Care Provider Unavailabl e Encounter Details Date Type Department Care Team (Late st Contact Info) Description 01/19/2020 Transcribed Document [facility] [place] [facility] [place] [address] ProviderLora MD [address] [place], [place] [address] Social History Tobacco Use Types Packs/Day Years Used Date Smoking Tobacco: Never Assessed Sex and Gender Information Value Date Recorded Sex Assigned at Not on file Legal Sex Male 5:25 PM CDT Gender Identity Not on file Sexual Orientation Not on file documented as of this encounter Miscellaneous Notes * Cerner Conversion Note - Historical ProviderMD - 01/19/2020 2:05 PM CONCRETE FENCE BUILDER Patient: JONATHAN DELGADO Age: 49 years [...] hyperlipidemia and hypertension. He originally presented to [facility] with complaints of left foot pain. States that this pain began about Monday is when he first noticed. He has his took his foot and discovered that there was a wound on the sole of his left foot on the ball of the foot. He does not recall any trauma to the foot. Family stated that due to a disagreement with the plumbing installer that was on duty they requested transfer from that facility to here. Labs at outside hospital showed patient was without leukocytosis and was generally unremarkable. Cultures were obtained and patient was given 2 g IV Rocephin. He did receive a foot x-ray while at [facility] but the report did not [...] process/pending Rad: Radiology Results (Last 48 hours) [id number] -- 01/18/2020 16:50 CR Chest 2 Vws [...] the above plan care Romario Scott APRN [facility] I discussed his situation with Dr. Sevilla documented in this encounter Plan of Treatment Not on file documented as of this encounter Visit Diagnoses Not on filedocumented in this encounter
--- OUTSIDE RECORDS SUMMARY | 2025-05-19 10:17 | XMS_ITS | Encounter Summary ---
Author Organization [employer] Address [address] [place] [address] Care Team Providers Care Sample Room Supervisor Name Role Phone Unavailable Primary Care Provider Unavailabl e Encounter Details Date Type Department Care Team (Late st Contact Info) Description 01/21/2020 Transcribed Document [facility] [place] Family Medicine [address] [place] [address] ProviderLora MD [address] [place], [place] [id number] Social History Tobacco Use Types Packs/Day Years Used Date Smoking Tobacco: Never Assessed Sex and Gender Information Value Date Recorded Sex Assigned at Not on file Legal Sex Male 5:25 PM CDT Gender Identity Not on file Sexual Orientation Not on file documented as of this encounter Miscellaneous Notes * Cerner Conversion Note - Lora Mcdaniel MD - 01/21/2020 11:17 AM TOBACCO SIZER Patient Education Materials Follows: Diabetes Mellitus and [...] that you work with a diet and holistic nutritionist (dietitian) to make a meal plan [...] provider. ??? Work with a counselor or visual educator to identify strategies to manage stress and any emotional and social challenges. Questions to ask a health care provider ??? Do I need to meet with a visual educator? Do I need to meet with a dietitian? What number can I call if I have questions? When are the best times to check my blood glucose? Where to find more information: ??? [place] Diabetes Association: diabetes.org ??? Academy of Nutrition and Dietetics: www.eatright.org ??? National [place] of Diabetes and Digestive and Kidney Diseases (NIH): www.niddk.nih.gov Summary ??? A healthy meal plan will help you control your blood glucose and maintain a healthy lifestyle. ??? Working with a diet and holistic nutritionist (dietitian) can help you make a [...] 08/10/2006 Document Revised: 06/13/2018 Document Reviewed: 12/18/2017 [employer] Interactive Patient Education ? 2019 [employer] Carbohydrate Counting for Diabetes Mellitus, Adult [...] different for every person. A diet and holistic nutritionist (registered dietitian) can help you make [...] of carbohydrates: ? hamburger bun or ? [place] muffin. ? oz (15 mL) syrup. ? [...] foods that contain carbohydrates: ??? Rice. ??? [place]. ??? Milk. ??? Strawberries. 2. Calculate how [...] manage your diabetes. ??? A diet and holistic nutritionist (registered dietitian) can help you make a meal plan and calculate how many carbohydrates you should have at each meal and snack. This information is not intended to replace advice given to you by your health care provider. Make sure you discuss any questions you have with your health care provider. Document Released: 11/13/2006 Document Revised: 05/23/2018 Document Reviewed: 04/26/2017 [employer] Interactive Patient Education ? 2019 [employer] Incision and Drainage, Care After Refer [...] Follow these instructions at home: ??? Take wcox-wjo-pllmthb and prescription medicines only as told by [...] and water are not available, use hand business partner. ? When you should remove your dressing. [...] 02/04/2013 Document Revised: 04/14/2017 Document Reviewed: 09/02/2016 [employer] Interactive Patient Education ? 2019 The [address]. Diabetes and Foot Care Diabetes may cause [...] 04/22/2014 Elsevier Interactive Patient Education ? 2017 [employer] documented in this encounter Plan of Treatment Not on file documented as of this encounter Visit Diagnoses Not on filedocumented in this encounter
--- OUTSIDE RECORDS SUMMARY | 2025-05-19 10:17 | XMS_ITS | Encounter Summary ---
Author Organization [employer] Address [address] [place] [address] Care Team Providers Care Hotel Valet Attendant Name Role Phone Unavailable Primary Care Provider Unavailabl e Encounter Details Date Type Department Care Team (Late st Contact Info) Description 01/19/2020 Transcribed Document [facility] [place] Family Medicine [facility] [place] [address] ProviderLora MD [address] [place], [place] [address] Social History Tobacco Use Types Packs/Day Years Used Date Smoking Tobacco: Never Assessed Sex and Gender Information Value Date Recorded Sex Assigned at Not on file Legal Sex Male 5:25 PM CDT Gender Identity Not on file Sexual Orientation Not on file documented as of this encounter Miscellaneous Notes * Cerner Conversion Note - Lora ProviderMD - 01/19/2020 11:27 AM ELEMENTARY ART TEACHER Patient: JONTAHAN DELGADO Age: 49 years Sex: Male : 1970 Associated Diagnoses: None Author: ESTHELA SCHMITT MD-CAR Basic Information PCP: primary cardiology- Dr Sibley ([facility] for caths) Chief Complaint left foot infection History of Present Illness 49 yo male with history with CAD (PCI 2013), HTN, and DM presented to outside facility with complaints of redness of left foot, fever and chills. Pt transferred to [facility] for further evaluation and treatment. Pt states [...] list: All Problems Angina / SNOMED CT 797344888 / Confirmed Coronary artery disease / SNOMED CT 4324574665 / Confirmed Diabetes mellitus type II / SNOMED CT 67384244 / Confirmed GERD - Gastro-esophageal reflux disease / SNOMED CT 0342593191 / Confirmed History of obstructive sleep apnea / IMO 11618968 / Confirmed Hyperlipidemia / SNOMED CT 33740594 / Confirmed Hypertension / SNOMED CT 73913988 / Confirmed Impaired vision in both eyes / SNOMED CT 739430134 / Confirmed Migraine / SNOMED CT 62259902 / Confirmed Prostate infection / SNOMED CT 40391533 / Confirmed Stented coronary artery / SNOMED CT 8395563863 / Confirmed, Active Problems (11) Angina Coronary [...] family history is negative. Procedure history: Stent ([id number]). bilateral hernia repair. cardiac catheterization with coronary [...] (Current Encounter/Past 24 Hours) ProBNP 202 pg/mL [place] 01/18/2020 19:18 Blood Gases (Current Encounter/Past 24 Hours) No Blood Gas Results Found (Past 24 Hours) Radiology Results (Last 48 hours) [id number] -- 01/18/2020 16:50 CR Chest 2 Vws [...]
--- OUTSIDE RECORDS SUMMARY | 2025-05-19 10:17 | XMS_ITS | Encounter Summary ---
Author Organization [employer] Address [address] [place] [address] Care Team Providers Care Air Analysis Technician Name Role Phone Unavailable Primary Care Provider Unavailabl e Encounter Details Date Type Department Care Team (Late st Contact Info) Description 01/21/[address] [facility] [place] [facility] [address] ProviderLora MD [address] [place], [place] [id number] Social History Tobacco Use Types Packs/Day Years Used Date Smoking Tobacco: Never Assessed Sex and Gender Information Value Date Recorded Sex Assigned at Not on file Legal Sex Male 5:25 PM CDT Gender Identity Not on file Sexual Orientation Not on file documented as of this encounter Miscellaneous Notes * Cerner Conversion Note - Historical ProviderMD - 01/21/2020 11:07 AM SHELL MACHINE OPERATOR Stroke/Warfarin Instructions Entered On: 01/21/2020 11:07 EST [...]
--- OUTSIDE RECORDS SUMMARY | 2025-05-19 10:17 | XMS_ITS | Encounter Summary ---
Author Organization [employer] Address [address] [place] [address] Care Team Providers Care Certified Welding Inspector Name Role Phone Unavailable Primary Care Provider Unavailabl e Encounter Details Date Type Department Care Team (Late st Contact Info) Description 01/23/2020 Transcribed Document [facility] [place] [address] [place] [address] ProviderLora MD [address] [place], [place] [id number] Social History Tobacco Use Types Packs/Day Years Used Date Smoking Tobacco: Never Assessed Sex and Gender Information Value Date Recorded Sex Assigned at Not on file Legal Sex Male 5:25 PM CDT Gender Identity Not on file Sexual Orientation Not on file documented as of this encounter Miscellaneous Notes * Cerner Conversion Note - Lora ProviderMD - 01/23/2020 2:20 PM SUPERVISOR FURNACE ROOM UM Authorization Entered On: 01/23/2020 14:23 EST Performed On: 01/23/2020 14:20 EST by LORENA GOLDMAN RN Primary Insurance Authorization Authorization and Policy Numbers : Insurance 1 Health Plan: [employer] [facility] Policy Number: [id number] Authorization Number: Insurance Primary Name : [facility] Policy Number: [id number] Authorization Status-Primary : Drg approved Auth/Referral Contact Name-Primary : [place] Reference Number-Primary : [id number] Number of Days Authorized-Primary : 1 Day(s) Authorized Service Begin Date-Primary : 01/18/2020 EST Authorized Service End Date-Primary : 01/19/2020 EST Authorization Comments-Primary : Per Availity, DRG approved. Historical Authorization Comments-Primary : Comment 1: Discharge date and summary faxed. (Roxie Marshall, Pediatrics Physician 01/22/2020 13:27) Comment 2: 2 days los approved, nrd 01/20, clinicals faxed via [employer] for C/S (JOAQUIN PETTY RN 01/21/2020 10:45) Comment 3: Submitted Inpt Auth on Availity with clinicals attached. (HORACIO REGALADO, Rn-Utilization Review 01/19/2020 15:14) LORENA GOLDMAN RN - 01/23/2020 14:20 EST Electronically signed by Stefanie [facility] Conversion Chocolate Dipper Cerner at 03/17/2023 9:36 AM CDT documented in this encounter Plan of Treatment Not on file documented as of this encounter Visit Diagnoses Not on filedocumented in this encounter
--- OUTSIDE RECORDS SUMMARY | 2025-05-19 10:17 | XMS_ITS | Encounter Summary ---
Author Organization [employer] Address [address] [place] [address] Care Team Providers Care Architectural Design Lecturer Name Role Phone Unavailable Primary Care Provider Unavailabl e Encounter Details Date Type Department Care Team (Late st Contact Info) Description 01/20/2020 Transcribed Document [facility] [place] Family Medicine [address] [place] [address] ProviderLora MD [address] [place], [place] [address] Social History Tobacco Use Types Packs/Day Years Used Date Smoking Tobacco: Never Assessed Sex and Gender Information Value Date Recorded Sex Assigned at Not on file Legal Sex Male 5:25 PM CDT Gender Identity Not on file Sexual Orientation Not on file documented as of this encounter Miscellaneous Notes * Cerner Conversion Note - Historical ProviderMD - 01/20/2020 9:00 AM MILK TREATER Consult Phone Call Documentation Entered On: 01/20/2020 [...]
--- OUTSIDE RECORDS SUMMARY | 2025-05-19 10:17 | XMS_ITS | Encounter Summary ---
Author Organization [employer] Address [address] [place] [address] Care Team Providers Care Assembler Molded Frames Name Role Phone Unavailable Primary Care Provider Unavailabl e Encounter Details Date Type Department Care Team (Late st Contact Info) Description 01/22/2020 Transcribed Document [facility] [place] Family Medicine [address] [place] [address] ProviderLora MD [address] [place], [place] [id number] Social History Tobacco Use Types Packs/Day Years Used Date Smoking Tobacco: Never Assessed Sex and Gender Information Value Date Recorded Sex Assigned at Not on file Legal Sex Male 5:25 PM CDT Gender Identity Not on file Sexual Orientation Not on file documented as of this encounter Miscellaneous Notes * Cerner Conversion Note - Lora ProviderMD - 01/22/2020 1:27 PM PRESCRIPTION EYEGLASS MAKER UM Authorization Entered On: 01/22/2020 13:28 EST Performed On: 01/22/2020 13:27 EST by Roxie Marshall, Art Manager Primary Insurance Authorization Authorization and Policy Numbers : Insurance 1 Health Plan: [facility] Policy Number: [id number] Authorization Number: Insurance Primary Name : [facility] Policy Number: [id number] Authorization Status-Primary : Admit approved Auth/Referral Contact Name-Primary : [place] Reference Number-Primary : [id number] Number of Days Authorized-Primary : 1 Day(s) [...] REGALADO, Rn-Utilization Review 01/19/2020 15:14) Roxie Marshall, Art Manager - 01/22/2020 13:27 EST Electronically signed by Stefanie, [facility] Conversion Record Maker Cerner at 03/17/2023 9:31 AM CDT documented in this encounter Plan of Treatment Not on file documented as of this encounter Visit Diagnoses Not on filedocumented in this encounter
--- OUTSIDE RECORDS SUMMARY | 2025-05-19 10:17 | XMS_ITS | Encounter Summary ---
Author Organization [employer] Address [address] [place] [address] Care Team Providers Care School Bus Technician Name Role Phone Unavailable Primary Care Provider Unavailabl e Encounter Details Date Type Department Care Team (Late st Contact Info) Description 01/19/2020 Transcribed Document [facility] [place] [facility] [place] [address] ProviderLora MD [address] [place], [place] [address] Social History Tobacco Use Types Packs/Day Years Used Date Smoking Tobacco: Never Assessed Sex and Gender Information Value Date Recorded Sex Assigned at Not on file Legal Sex Male 5:25 PM CDT Gender Identity Not on file Sexual Orientation Not on file documented as of this encounter Miscellaneous Notes * Cerner Conversion Note - Historical ProviderMD - 01/19/2020 12:32 PM SPRING CLIPPER Patient: JONATHAN DELGADO Age: 49 Years Sex: [...] Information Primary Care Physician - ADRIAN DELACRUZ DO-[facility] Attending Physician - PARESH CARRASCO MD-[facility] [...] pt quit smoking in 2000. Diagnostic Results [facility] REPORT LEFT FOOT SERIES HISTORY: Left foot [...] 01/18/2020 18:32 EST Electronically signed by Stefanie, [facility] Conversion Area Director Of Home Health Sales Cerner at 03/17/2023 9:22 AM CDT documented in this encounter Plan of Treatment Not on file documented as of this encounter Visit Diagnoses Not on filedocumented in this encounter
--- OUTSIDE RECORDS SUMMARY | 2025-05-19 10:17 | XMS_ITS | Encounter Summary ---
Author Organization [employer] Address [address] [place] [address] Care Team Providers Care Pipelines Superintendent Name Role Phone Unavailable Primary Care Provider Unavailabl e Encounter Details Date Type Department Care Team (Late st Contact Info) Description 01/18/2020 Transcribed Document [facility] [place] Family [place] [facility] [place] [address] ProviderLora MD [address] [place], [place] [id number] Social History Tobacco Use Types Packs/Day Years Used Date Smoking Tobacco: Never Assessed Sex and Gender Information Value Date Recorded Sex Assigned at Not on file Legal Sex Male 5:25 PM CDT Gender Identity Not on file Sexual Orientation Not on file documented as of this encounter Miscellaneous Notes * Cerner Conversion Note - Historical ProviderMD - 01/18/2020 5:50 PM REWORKER Pain Assessment Entered On: 01/21/2020 5:08 EST [...] the text rendition version of the form. Electronically signed by Cathryn Watts Conversion Readers' Advisory Service Librarian Cerner at 03/17/2023 9:45 AM CDT documented in this encounter Plan of Treatment Not on file documented as of this encounter Visit Diagnoses Not on filedocumented in this encounter
--- OUTSIDE RECORDS SUMMARY | 2025-05-19 10:17 | XMS_ITS | Encounter Summary ---
Author Organization [facility] Address [address] [place] [address] Care Team Providers Care Reservation Sales Agent Name Role Phone Quyen Vincent DO Primary Care Provider [phone] Encounter Details Date Type Department Care Team (Late st Contact Info) Description 05/05/2025 Telephone [facility] Specialties [address] [place] [address] None, None [address] [place] [address] Social History Tobacco Use Types [...] him back to schedule. Best contact number: [phone] (mobile) Optimal time of day to reach [...] will receive notification of the communication/outcome via [employer]. documented in this encounter Plan of Treatment Upcoming Encounters Date Type Department Care Team (Late st Contact Info) Description 06/03/2025 8:00 AM EDT Consult [facility] Medicine Specialties [address] [place] [address] Aicha, November R, BIRDCAGE ASSEMBLER [address] [place] [address] documented as of this encounter Visit Diagnoses Not on filedocumented in this encounter Care Teams Reservation Sales Agent Relationship Specialty Start Date End Date Quyen Vincent DO [address] [place] [address] PCP - General 04/09/21 documented as of this encounter
--- OUTSIDE RECORDS SUMMARY | 2025-05-19 10:17 | XMS_ITS | Encounter Summary ---
Author Organization [employer] Address [address] [place] [address] Care Team Providers Care Red Cap Name Role Phone Unavailable Primary Care Provider Unavailabl e Encounter Details Date Type Department Care Team (Late st Contact Info) Description 01/19/2020 Transcribed Document [facility] [place] Family Medicine [address] [place] [address] ProviderLora MD [address] [place], [place] [address] Social History Tobacco Use Types Packs/Day Years Used Date Smoking Tobacco: Never Assessed Sex and Gender Information Value Date Recorded Sex Assigned at Not on file Legal Sex Male 5:25 PM CDT Gender Identity Not on file Sexual Orientation Not on file documented as of this encounter Miscellaneous Notes * Cerner Conversion Note - Historical ProviderMD - 01/19/2020 9:00 AM BUILDING EQUIPMENT OPERATOR Consult Phone Call Documentation Entered On: 01/19/2020 10:28 EST Performed On: 01/19/2020 9:00 EST by Jessica Johnson [facility] Coord Phone Call for Consults Consult Phone Call/Page Attempt : Second call Consult Reason : foot cellulitis Physician Requesting Consult : CONRAD GARDNER MD-[facility] Physician Requested for Consult : TANISHA AMAYA DPM-POD Provider Service Notified Name : Podiatry Physician Covering for Consult : CHERISE HOWELL DPM-TOMMY Date and Time Call Returned : 01/19/2020 10:28 EST Jessica Johnson [facility] Coord - 01/19/2020 10:27 EST Electronically signed by [facility] Conversion Supervisor Print Line Cerner at 03/17/2023 9:14 AM CDT documented in this encounter Plan of Treatment Not on file documented as of this encounter Visit Diagnoses Not on filedocumented in this encounter
--- OUTSIDE RECORDS SUMMARY | 2025-05-19 10:17 | XMS_ITS | Encounter Summary ---
Author Organization [employer] Address [address] [place] [address] Care Team Providers Care Radiation Engineer Name Role Phone Unavailable Primary Care Provider Unavailabl e Encounter Details Date Type Department Care Team (Late st Contact Info) Description 01/21/2020 Transcribed Document [facility] Radiology [address] [place] [address] Nikole Bravo MD [address] [place], [place] [address] Social History Tobacco Use Types Packs/Day Years [...] Date 01/21/2020 [facility] Diagnosis Diabetic foot ulcer/cellulitis. Osteomyelitis ruled out with MRI Coronary artery disease Diabetes mellitus. Hypertension. Hospital Course 49 yo male with history with CAD (PCI 2013), HTN, and DM presented to outside facility with complaints of redness of left foot, fever and chills. Pt transferred to [facility] for further evaluation and treatment. Pt states [...] home IV antibiotics versus IV antibiotics at [facility] infectious office patient can be discharged on ceftriaxone 2 g IV daily. With wound dressing at [facility] infectious disease office and per his [...] -- Start: 01/18/20 17:51:00 EST, 75 gm carbs:[id number] arturo Patient Discharge Summary Orders Discharge Activity: [...]
--- OUTSIDE RECORDS SUMMARY | 2025-05-19 10:17 | XMS_ITS | Encounter Summary ---
Author Organization [employer] Address [address] [place] [address] Care Team Providers Care Slag Production Worker Name Role Phone Unavailable Primary Care Provider Unavailabl e Encounter Details Date Type Department Care Team (Late st Contact Info) Description 01/18/2020 Transcribed Document [facility] [place] [facility] [place] [address] ProviderLora MD [address] [place], [place] [address] Social History Tobacco Use Types Packs/Day Years Used Date Smoking Tobacco: Never Assessed Sex and Gender Information Value Date Recorded Sex Assigned at Not on file Legal Sex Male 5:25 PM CDT Gender Identity Not on file Sexual Orientation Not on file documented as of this encounter Miscellaneous Notes * Cerner Conversion Note - Historical ProviderMD - 01/18/2020 5:01 PM TOP CARRIER Admission History, Adult Entered On: 01/18/2020 17:09 [...] #2 Relationship : , Primary Language : Syrian Communication Barrier : None Martha Daigle RN [...] Scale Risk Level : 0-24 Low Risk Jamison Fall Interventions : Adequate lighting, Assistive devices [...] Source : Stated Height Entry Format : [place] Height, Feet : 6 ft(Converted to: 183 cm, 72 Inch) Height, Inches : 2 Inch(Converted to: 0 ft 2 Inch, 5.08 cm) Clinical Height : 187.96 cm Weight Source : Standing scale Weight Entry Format : [place] Clinical Dosing Weight : 107.27 kg Weight, Pounds : 236 lb Body Surface Area (BSA) : 2.33 m2 Body Mass Index : 30.4 kg/m2 (HI) [place] Body Weight : 81 kg Martha Daigle [...] Martha Daigle RN - 01/18/2020 17:01 EST [place] Suicide Severity Rating Scale (C-SSRS) CSSRS Past [...] Martha Daigle RN - 01/18/2020 17:01 EST Electronically signed by Cathryn Watts Conversion Application Security Specialist Cerner at 03/17/2023 9:37 AM CDT documented in this encounter Plan of Treatment Not on file documented as of this encounter Visit Diagnoses Not on filedocumented in this encounter
--- OUTSIDE RECORDS SUMMARY | 2025-05-19 10:17 | XMS_ITS | Encounter Summary ---
Author Organization [employer] Address [address] [place] [address] Care Team Providers Care Addictions Counselor Assistant Name Role Phone Unavailable Primary Care Provider Unavailabl e Encounter Details Date Type Department Care Team (Late st Contact Info) Description 01/21/2020 Transcribed Document [facility] [place] Family Medicine [facility] [place] [address] ProviderLora MD [address] [place] [address] Social History Tobacco Use Types Packs/Day Years Used Date Smoking Tobacco: Never Assessed Sex and Gender Information Value Date Recorded Sex Assigned at Not on file Legal Sex Male 5:25 PM CDT Gender Identity Not on file Sexual Orientation Not on file documented as of this encounter Miscellaneous Notes * Cerner Conversion Note - Lora ProviderMD - 01/21/2020 1:00 PM LAND ACQUISITION SPECIALIST [facility] [place] [address] JONATHAN DELGADO :1970 Visit Time:01/19/2020 Your Visit Summary Your Care Team Admitting Physician - PARESH CARRASCO MD-INT Attending Physician - PARESH CARRASCO MD-INT Primary Care Physician - ADRIAN DELCARUZ DO-FAM Referring Physician - JARETT RAMSAY (REF, -KIERNA Your Diagnosis Foot ulcer due to secondary [...] ID, Ins Co-pay Where: [address] [place] [address]- Follow Up with CHERISE HOWELL When 01/27/2020 01:40 PM EST Comments Appointment has been made Bring discharge instructions with you Bring Ins Card, Photo ID, Ins Co-pay Where: [address] [facility] [address] [place] [address]- Business (1) Follow Up with MARA FLORES When 01/22/2020 01:30 PM EST Comments Appointment has been madeBring discharge instructions with you Bring Ins Card, Photo ID, Ins Co-pay Where: [address] [facility] [address] [place] [address]- Business (1) Medications What How [...] that you work with a diet and health and nutrition specialist (dietitian) to make a meal plan [...] provider. ??? Work with a counselor or medical educator to identify strategies to manage stress and any emotional and social challenges. Questions to ask a health care provider ??? Do I need to meet with a medical educator? Do I need to meet with a dietitian? What number can I call if I have questions? When are the best times to check my blood glucose? Where to find more information: ??? [place] Diabetes Association: diabetes.org ??? Academy of Nutrition and Dietetics: www.eatright.org ??? National [place] of Diabetes and Digestive and Kidney Diseases (NIH): www.niddk.nih.gov Summary ??? A healthy meal plan will help you control your blood glucose and maintain a healthy lifestyle. ??? Working with a diet and health and nutrition specialist (dietitian) can help you make a [...] 08/10/2006 Document Revised: 06/13/2018 Document Reviewed: 12/18/2017 [employer] Interactive Patient Education ?? 2019 [employer] Carbohydrate Counting for Diabetes Mellitus, Adult [...] different for every person. A diet and health and nutrition specialist (registered dietitian) can help you make [...] of carbohydrates: ? hamburger bun or ?? Yi muffin. ? oz (15 mL) syrup. ? [...] foods that contain carbohydrates: ??? Rice. ??? [place]. ??? Milk. ??? Strawberries. 2. Calculate how [...] manage your diabetes. ??? A diet and health and nutrition specialist (registered dietitian) can help you make a meal plan and calculate how many carbohydrates you should have at each meal and snack. This information is not intended to replace advice given to you by your health care provider. Make sure you discuss any questions you have with your health care provider. Document Released: 11/13/2006 Document Revised: 05/23/2018 Document Reviewed: 04/26/2017 [employer] Interactive Patient Education ?? 2019 [employer] Incision and Drainage, Care After Refer [...] Follow these instructions at home: ??? Take dnxa-kje-mlhwfmy and prescription medicines only as told by [...] and water are not available, use hand motorcycle subassembly repairer. ? When you should remove your dressing. [...] 02/04/2013 Document Revised: 04/14/2017 Document Reviewed: 09/02/2016 [employer] Interactive Patient Education ?? 2019 [employer] Diabetes and Foot Care Diabetes may [...] 11/10/2001 Document Revised: 04/20/2017 Document Reviewed: 04/22/2014 [employer] Interactive Patient Education ?? 2017 Occipital. oxycodone (ox i KOE done) Oxaydo, OxyCONTIN, [...] The extended-release form of oxycodone is for ybjywa-qfe-rlqrh treatment of pain and should not be [...] against the law. Stop taking all other uexfbq-qzp-rpydl narcotic pain medicines when you start taking [...] may report side effects to FDA at 7-850-XVI-3506. What other drugs will affect oxycodone? You [...] may affect oxycodone. This includes prescription and njuh-wgx-xixlfnh medicines, vitamins, and herbal products. Not all [...] to ensure that the information provided by [employer]. ('Multum') is accurate, up-to-date, and complete, but no guarantee is made to that effect. Drug information contained herein may be time sensitive. [employer] information has been compiled for use by healthcare practitioners and consumers in the [place] and therefore [employer] does not warrant that uses outside of the [place] are appropriate, unless specifically indicated otherwise. [employer] drug information does not endorse drugs, diagnose patients or recommend therapy. [employer] drug information is an informational resource designed [...] effective or appropriate for any given patient. [employer] does not assume any responsibility for any aspect of healthcare administered with the aid of information [employer] provides. The information contained herein is not intended to cover all possible uses, directions, precautions, warnings, drug interactions, allergic reactions, or adverse effects. If you have questions about the drugs you are taking, check with your doctor, nurse or pharmacist. Copyright 2606-5775 [employer]. Version: 13.03. Revision Date: 09/09/2019. lactobacillus acidophilus [...] may report side effects to FDA at 1-682-DTY-5940. What other drugs will affect lactobacillus acidophilus? Do not take lactobacillus acidophilus without medical advice if you are using any medications that can weaken your immune system, such as: ?? medicine to prevent organ transplant rejection; or ?? steroid medicine (prednisone, dexamethasone, methylprednisolone, and others). This list is not complete. Other drugs may interact with lactobacillus acidophilus, including prescription and tpiz-kos-fdnlxxw medicines, vitamins, and herbal products. Not all [...] to ensure that the information provided by [employer]. ('Multum') is accurate, up-to-date, and complete, but no guarantee is made to that effect. Drug information contained herein may be time sensitive. [employer] information has been compiled for use by healthcare practitioners and consumers in the [place] and therefore [employer] does not warrant that uses outside of the [place] are appropriate, unless specifically indicated otherwise. [employer] drug information does not endorse drugs, diagnose patients or recommend therapy. [employer] drug information is an informational resource designed [...] effective or appropriate for any given patient. [employer] does not assume any responsibility for any aspect of healthcare administered with the aid of information [employer] provides. The information contained herein is not intended to cover all possible uses, directions, precautions, warnings, drug interactions, allergic reactions, or adverse effects. If you have questions about the drugs you are taking, check with your doctor, nurse or pharmacist. Copyright 1372-7460 [employer]. Version: 3.07. Revision Date: 05/05/2017. Emergency Awareness [...] Assistance with quitting is available by contacting 5-234-AGDH-NOW. This is a free resource providing counseling, [...] range between ( 0.0 and 7.0 ) [place] #: 0.59 K/uL -- Normal range between ( 0.16 and 1.00 ) Eos #: 0.26 x10(3)/uL -- Normal range between ( 0.00 and 0.80 ) [place] %: 9.1 % -- Normal range between [...] was given the opportunity to ask questions. Patient/Electrical Software Engineer Name: Patient/Electrical Software Engineer Signature: Relationship to Patient: Clinician/Hospital Electrical Software Engineer Signature: Date: documented in this encounter Plan of Treatment Not on file documented as of this encounter Visit Diagnoses Not on filedocumented in this encounter
--- OUTSIDE RECORDS SUMMARY | 2025-05-19 10:17 | XMS_ITS | Encounter Summary ---
Author Organization [employer] Address [address] [place] [address] Care Team Providers Care Grey Stock Recorder Name Role Phone Unavailable Primary Care Provider Unavailabl e Encounter Details Date Type Department Care Team (Late st Contact Info) Description 01/20/2020 Transcribed Document [facility] [place] Family Medicine [facility] [place] [address] ProviderLora MD [address] [place] [address] Social History Tobacco Use Types Packs/Day Years Used Date Smoking Tobacco: Never Assessed Sex and Gender Information Value Date Recorded Sex Assigned at Not on file Legal Sex Male 5:25 PM CDT Gender Identity Not on file Sexual Orientation Not on file documented as of this encounter Miscellaneous Notes * Cerner Conversion Note - Historical ProviderMD - 01/20/2020 12:17 PM SOFTWARE LICENSING EXECUTIVE Software Business Analyst Inpatient Document Entered On: 01/20/2020 15:26 EST [...] CAITLYN PURI RN - 01/20/2020 15:24 EST documented in this encounter Plan of Treatment Not on file documented as of this encounter Visit Diagnoses Not on filedocumented in this encounter
--- OUTSIDE RECORDS SUMMARY | 2025-05-19 10:17 | XMS_ITS | Encounter Summary ---
Author Organization [employer] Address [address] [place] [address] Care Team Providers Care Siphon Operator Name Role Phone Unavailable Primary Care Provider Unavailabl e Encounter Details Date Type Department Care Team (Late st Contact Info) Description 01/18/[address] [facility] [place] [facility] [place] [address] ProviderLora MD [facility] [place], [place] [id number] Social History Tobacco Use Types Packs/Day Years Used Date Smoking Tobacco: Never Assessed Sex and Gender Information Value Date Recorded Sex Assigned at Not on file Legal Sex Male 5:25 PM CDT Gender Identity Not on file Sexual Orientation Not on file documented as of this encounter Miscellaneous Notes * Cerner Conversion Note - Historical ProviderMD - 01/18/2020 9:06 PM BRASS WIND INSTRUMENTS TUBE BENDER DATE OF ADMISSION: 01/18/2020 PRIMARY CARE PHYSICIAN: [...] patient has been evaluated and transferred to [facility]. The patient came in. Blood work done [...] will check x-ray. We will consult the ed transporter. Start IV antibiotic. 3. Diabetes mellitus. The [...] Chart was reviewed. Time spent, 55 minutes. /[id number] MD GABY Malloy/KELLEY / GABY / MODL Electronically signed by Stefanie, [facility] Conversion Head Of Merchandise Buying Cerner at 03/17/2023 9:14 AM CDT documented in this encounter Plan of Treatment Not on file documented as of this encounter Visit Diagnoses Not on filedocumented in this encounter
--- OUTSIDE RECORDS SUMMARY | 2025-05-19 10:17 | XMS_ITS | Encounter Summary ---
Author Organization [employer] Address [address] [place] [address] Care Team Providers Care Wood Boring Machine Operator Name Role Phone Unavailable Primary Care Provider Unavailabl e Encounter Details Date Type Department Care Team (Late st Contact Info) Description 01/19/2020 Transcribed Document [facility] Radiology [address] [place] [address] Paresh Bravo MD [address] [place] [address] [address] Social History Tobacco Use Types [...] History of obstructive sleep apnea / IMO [id number] / Confirmed, Active Problems (11) Angina Coronary [...] 1.10 \ Radiology Results (Last 48 hours) [id number] -- 01/18/2020 16:50 CR Chest 2 Vws [...]
--- OUTSIDE RECORDS SUMMARY | 2025-05-19 10:17 | XMS_ITS | Encounter Summary ---
Author Organization [employer] Address [address] [place] [address] Care Team Providers Care Armature Varnisher Name Role Phone Unavailable Primary Care Provider Unavailabl e Encounter Details Date Type Department Care Team (Late st Contact Info) Description 01/21/2020 Transcribed Document [facility] [place] Family Medicine [address] [place] [address] ProviderLora MD [address] [place], [place] [id number] Social History Tobacco Use Types Packs/Day Years Used Date Smoking Tobacco: Never Assessed Sex and Gender Information Value Date Recorded Sex Assigned at Not on file Legal Sex Male 5:25 PM CDT Gender Identity Not on file Sexual Orientation Not on file documented as of this encounter Miscellaneous Notes * Cerner Conversion Note - Historical ProviderMD - 01/21/2020 10:45 AM FRONT OFFICE HELP UM Authorization Entered On: 01/21/2020 10:45 EST Performed On: 01/21/2020 10:45 EST by JOAQUIN PETTY RN Primary Insurance Authorization Authorization and Policy Numbers : Insurance 1 Health Plan: [facility] Policy Number: [id number] Authorization Number: Insurance Primary [facility] Policy Number: [id number] Authorization Status-Primary : Admit approved Reference Number-Primary : [id number] Number of Days Authorized-Primary : 1 Day(s) Authorized Service Begin Date-Primary : 01/18/2020 EST Authorized Service End Date-Primary : 01/19/2020 EST Authorization Comments-Primary : 2 days los approved, nrd 01/20, clinicals faxed via [employer] for C/S Historical Authorization Comments-Primary : Comment 1: Submitted Inpt Auth on Availity with clinicals attached. (HORACIO REGALADO, Rn-Utilization Review 01/19/2020 15:14) JOAQUIN PETTY, MALU - 01/21/2020 10:45 EST Electronically signed by Stefanie, [facility] Conversion Yarn Preparation Supervisor Cerner at 03/17/2023 9:23 AM CDT documented in this encounter Plan of Treatment Not on file documented as of this encounter Visit Diagnoses Not on filedocumented in this encounter
--- OUTSIDE RECORDS SUMMARY | 2025-05-19 10:17 | XMS_ITS | Encounter Summary ---
Author Organization [employer] Address [address] [place] [address] Care Team Providers Care Bus Dispatcher Interstate Name Role Phone Unavailable Primary Care Provider Unavailabl e Encounter Details Date Type Department Care Team (Late st Contact Info) Description 01/20/2020 Transcribed Document [facility] [place] Medicine [facility] [place] [address] ProviderLora MD [address] [place] [address] Social History Tobacco Use Types Packs/Day Years Used Date Smoking Tobacco: Never Assessed Sex and Gender Information Value Date Recorded Sex Assigned at Not on file Legal Sex Male 5:25 PM CDT Gender Identity Not on file Sexual Orientation Not on file documented as of this encounter Miscellaneous Notes * Cerner Conversion Note - Historical ProviderMD - 01/20/2020 11:52 AM PROGRAM CLERK Patient: JONATHAN DELGADO Age: 49 years [...] hyperlipidemia and hypertension. He originally presented to [facility] with complaints of left foot pain. States that this pain began about Monday is when he first noticed. He has his took his foot and discovered that there was a wound on the sole of his left foot on the ball of the foot. He does not recall any trauma to the foot. Family stated that due to a disagreement with the motor home electrical foreman that was on duty they requested transfer from that facility to here. Labs at outside hospital showed patient was without leukocytosis and was generally unremarkable. Cultures were obtained and patient was given 2 g IV Rocephin. He did receive a foot x-ray while at [facility] but the report did not accopany [...] NGSF Rad: Radiology Results (Last 48 hours) [id number] -- 01/19/2020 15:12 CR Chest 2 Vws [...]
--- OUTSIDE RECORDS SUMMARY | 2025-05-19 10:17 | XMS_ITS | Referral Summary ---
Author Organization [employer] Address [address] [place] [address] Care Team Providers Care Healthcare Technician Name Role Phone Unavailable Primary Care [...]
--- OUTSIDE RECORDS SUMMARY | 2025-05-19 10:17 | XMS_ITS | Clinical Summary ---
Author Organization [facility] Address [address] [place] [address] Phone Care Team Providers Care Circular Knitter Helper Name Role Phone Giles DE LA CRUZ, Adryan Lucio [phone] [ ] Conditions or Problems Problem Name [...] fat layer exposed Coronary artery disease (CAD) 38190297 (SNOMED CT) 01/21 Active 01/21 Georgina Ruth Coronary arteriosclerosis DM II with diabetic peripheral neuropathy 06563243 (SNOMED CT) 01/21 Active 01/21 Georgina Ruth Type 2 diabetes mellitus Benign Essential Hypertension 3836328 (SNOMED CT) 01/21 Active 01/21 Georgina Ruth Benign essential hypertension Wound infection/Ce llulitis of left foot L03.116 (ICD-10-CM ) 01/21 Active 01/21 Treva W Cellulitis of left lower limb MSSA infection 151418993 (SNOMED CT) 01/21 Active 01/21 Treva W Infection by methicillin sensitive Staphylococcus aureus Medications Medication Instructions Start Date Stop Date Generic Name ND Provider KEFLEX 500 MG ORAL CAPSULE one po qid CEPHALEXIN 03796326498 Radha Tucker APRN CEFTRIAXONE SODIUM 2 GM SOLR Rocephin 2GM IV Q24hrs - INPAT CEFTRIAXONE SODIUM 83154242261 Silvia Trujillo RN CEPHALEXIN 500 MG CAPS Take 1 by mouth 4 times a day CEPHALEXIN 71694197719 Adryan Skaggs MD CEFTRIAXONE SODIUM 2 GM SOLR Rocephin 2GM IV Q24hrs - INPAT CEFTRIAXONE SODIUM 28937441686 Yuni Christine SERTRALINE HCL 100 MG TABS 2 tablets daily SERTRALINE HCL 78777410651 Macarena Maria PRILOSEC OTC 20 MG TBEC Take 1 tablet by mouth daily OMEPRAZOLE MAGNESIUM 74267050093 Macarena Maria OXYCODONE HCL 5 MG TABS Take one (1) tablet by mouth four times a day as needed OXYCODONE HCL 76999322240 Macarena Maria NOVOLOG 100 UNIT/ML SUBCUTANEOUS SOLUTION INSULIN ASPART 53809683349 Macarena Maria LIPITOR 40 MG TABS Take 1 tablet by mouth daily ATORVASTATIN CALCIUM 88333261929 Macarena Maria LANTUS 100 UNIT/ML SOLN INSULIN GLARGINE 76608089884 Macarena Maria JARDIANCE 25 MG TABS Take 1 tablet by mouth daily in the AM EMPAGLIFLOZIN 59060852558 Macarena Maria ADULT ASPIRIN REGIMEN 81 MG ORAL TABLET DELAYED RELEASE Take 1 tablet by mouth daily ASPIRIN 92734592548 Macarena Maria Medications Administered No information available. [...]
--- OUTSIDE RECORDS SUMMARY | 2025-05-19 10:17 | XMS_ITS | Encounter Summary ---
Author Organization [employer] Address [address] [place] [address] Care Team Providers Care Parts Coordinator Name Role Phone Unavailable Primary Care Provider Unavailabl e Encounter Details Date Type Department Care Team (Late st Contact Info) Description 01/19/2020 Transcribed Document [facility] [place] [facility] [address] ProviderLora MD [address] [place], [place] [id number] Social History Tobacco Use Types Packs/Day Years Used Date Smoking Tobacco: Never Assessed Sex and Gender Information Value Date Recorded Sex Assigned at Not on file Legal Sex Male 5:25 PM CDT Gender Identity Not on file Sexual Orientation Not on file documented as of this encounter Miscellaneous Notes * Cerner Conversion Note - Historical ProviderMD - 01/19/2020 3:14 PM DIRECTOR OF NATIONAL SALES UM Authorization Entered On: 01/19/2020 15:19 EST Performed On: 01/19/2020 15:14 EST by HORACIO REGALADO Rn-Utilization Review Primary Insurance Authorization Authorization and Policy Numbers : Insurance 1 Health Plan: [employer] Policy Number: [id number] Authorization Number: Insurance Primary Name : [facility] [facility] Policy Number: [id number] Authorization Status-Primary : Awaiting callback Reference Number-Primary : [id number] Authorized Service Begin Date-Primary : 01/18/2020 EST Authorization Comments-Primary : Submitted Inpt Auth on Availity with clinicals attached. Historical Authorization Comments-Primary : No Authorization Comments Found HORACIO REGALADO Rn-Utilization Review - 01/19/2020 15:14 EST Electronically signed by Stefanie [facility] Conversion Settlement Processor Cerner at 03/17/2023 9:18 AM CDT documented in this encounter Plan of Treatment Not on file documented as of this encounter Visit Diagnoses Not on filedocumented in this encounter
--- OUTSIDE RECORDS SUMMARY | 2025-05-19 10:17 | XMS_ITS | Encounter Summary ---
Author Organization [employer] Address [address] [place] [address] Care Team Providers Care Career Development Coordinator Name Role Phone Unavailable Primary Care Provider Unavailabl e Encounter Details Date Type Department Care Team (Late st Contact Info) Description 01/19/2020 Transcribed Document [facility] [place] [address] [place] [address] ProviderLora MD [address] [place], [place] [address] Social History Tobacco Use Types Packs/Day Years Used Date Smoking Tobacco: Never Assessed Sex and Gender Information Value Date Recorded Sex Assigned at Not on file Legal Sex Male 5:25 PM CDT Gender Identity Not on file Sexual Orientation Not on file documented as of this encounter Miscellaneous Notes * Cerner Conversion Note - Historical ProviderMD - 01/19/2020 5:00 AM BULB ASSEMBLER Chart Check - Review Order Profile Entered On: 01/19/2020 3:19 EST Performed On: 01/19/2020 5:00 EST by Mary Jane Burnham RN Chart Check Powerplans Initiated/Discontinued as Appropriate : Yes All Active Orders Reviewed : Yes Mary Jane Burnham RN - 01/19/2020 3:19 EST Electronically signed by Stefanie [facility] Conversion Crab Steamer Cerner at 03/17/2023 9:28 AM CDT documented in this encounter Plan of Treatment Not on file documented as of this encounter Visit Diagnoses Not on filedocumented in this encounter
--- OUTSIDE RECORDS SUMMARY | 2025-05-19 10:17 | XMS_ITS | Encounter Summary ---
Author Organization [employer] Address [address] [place] [address] Care Team Providers Care Glass Sagger Name Role Phone Unavailable Primary Care Provider Unavailabl e Encounter Details Date Type Department Care Team (Late st Contact Info) Description 01/21/2020 Transcribed Document [facility] [place] [facility] [address] [place] [address] ProviderLora MD [address] [place], [place] [address] Social History Tobacco Use Types Packs/Day Years Used Date Smoking Tobacco: Never Assessed Sex and Gender Information Value Date Recorded Sex Assigned at Not on file Legal Sex Male 5:25 PM CDT Gender Identity Not on file Sexual Orientation Not on file documented as of this encounter Miscellaneous Notes * Cerner Conversion Note - Historical ProviderMD - 01/21/2020 2:00 AM RAG SHREDDER Senior Assistant Manager Details Entered On: 01/21/2020 5:09 EST Performed On: 01/21/2020 2:00 EST by Rama Yeung, RN Order Details Transport Mode Order Detail : Wheelchair Isolation Precautions Order Detail : Standard Precautions Order Detail : N/A Lift/Transfer : Independent Central Line Order Detail : No Room Service : Appropriate Arterial Line : No Rama Yeung, RN - 01/21/2020 5:09 EST Electronically signed by Stefanie [facility] Conversion Automatic Thread Winder Cerner at 03/17/2023 9:15 AM CDT documented in this encounter Plan of Treatment Not on file documented as of this encounter Visit Diagnoses Not on filedocumented in this encounter
--- OUTSIDE RECORDS SUMMARY | 2025-05-19 10:17 | XMS_ITS | Encounter Summary ---
Author Organization [employer] Address [address] [place] [address] Care Team Providers Care Billing Clerk Name Role Phone Unavailable Primary Care Provider Unavailabl e Encounter Details Date Type Department Care Team (Late st Contact Info) Description 01/21/2020 Transcribed Document [facility] [place] [address] [place] [address] ProviderLora MD [address] [place], [place] 443531 Social History Tobacco Use Types Packs/Day Years Used Date Smoking Tobacco: Never Assessed Sex and Gender Information Value Date Recorded Sex Assigned at Not on file Legal Sex Male 5:25 PM CDT Gender Identity Not on file Sexual Orientation Not on file documented as of this encounter Miscellaneous Notes * Cerner Conversion Note - Historical ProviderMD - 01/21/2020 5:00 AM HVAC SALES REPRESENTATIVE Chart Check - Review Order Profile Entered On: 01/21/2020 5:09 EST Performed On: 01/21/2020 5:00 EST by Rama Yeung, RN Chart Check Powerplans Initiated/Discontinued as Appropriate : Yes All Active Orders Reviewed : Yes Rama Yeung RN - 01/21/2020 5:09 EST Electronically signed by Stefanie [facility] Conversion Inside Barrel Polisher Cerner at 03/17/2023 9:19 AM CDT documented in this encounter Plan of Treatment Not on file documented as of this encounter Visit Diagnoses Not on filedocumented in this encounter
--- OUTSIDE RECORDS SUMMARY | 2025-05-19 10:17 | XMS_ITS | Encounter Summary ---
Author Organization [employer] Address [address] [place] [address] Care Team Providers Care Blocking Machine Operator Name Role Phone Unavailable Primary Care Provider Unavailabl e Encounter Details Date Type Department Care Team (Late st Contact Info) Description 01/20/2020 Transcribed Document [facility] [place] [facility] [place] [address] ProviderLora MD [address] [place] [id number] Social History Tobacco Use Types Packs/Day Years Used Date Smoking Tobacco: Never Assessed Sex and Gender Information Value Date Recorded Sex Assigned at Not on file Legal Sex Male 5:25 PM CDT Gender Identity Not on file Sexual Orientation Not on file documented as of this encounter Miscellaneous Notes * Cerner Conversion Note - Historical ProviderMD - 01/20/2020 1:07 PM FINANCIAL AUDITOR Initial Discharge Planning Entered On: 01/20/2020 13:12 [...]
--- OUTSIDE RECORDS SUMMARY | 2025-05-19 10:17 | XMS_ITS | Encounter Summary ---
Author Organization [email or web address] Address [address] [place] [address] Care Team Providers Care Oracle Wms Consultant Name Role Phone Unavailable Primary Care Provider Unavailabl e Encounter Details Date Type Department Care Team (Late st Contact Info) Description 01/21/2020 Transcribed Document [facility] [place] [facility] [place] [address] ProviderLora MD [address] [place] [address] Social History Tobacco Use Types Packs/Day Years Used Date Smoking Tobacco: Never Assessed Sex and Gender Information Value Date Recorded Sex Assigned at Not on file Legal Sex Male 5:25 PM CDT Gender Identity Not on file Sexual Orientation Not on file documented as of this encounter Miscellaneous Notes * Cerner Conversion Note - Historical ProviderMD - 01/21/2020 8:44 AM LETTERPRESS SETTER Patient: JONATHAN DELGADO Age: 49 years Sex: [...] hypertension. He originally presented to [facility] with complaints of left foot pain. States that this pain began about Monday is when he first noticed. He has his took his foot and discovered that there was a wound on the sole of his left foot on the ball of the foot. He does not recall any trauma to the foot. Family stated that due to a disagreement with the art tracer that was on duty they requested transfer from that facility to here. Labs at outside hospital showed patient was without leukocytosis and was generally unremarkable. Cultures were obtained and patient was given 2 g IV Rocephin. He did receive a foot x-ray while at [facility] but the report did not accopany [...] with the lab today 01/18 blood cultures [facility] Rad: Radiology Results (Last 48 hours) [id number] -- 01/19/2020 15:12 CR Chest 2 Vws [...] today. Electronically signed by Stefanie, Cathryn Conversion Commercial Shrimping Captain Cerner at 03/17/2023 9:19 AM CDT documented in this encounter Plan of Treatment Not on file documented as of this encounter Visit Diagnoses Not on filedocumented in this encounter
--- OUTSIDE RECORDS SUMMARY | 2025-05-19 10:17 | XMS_ITS | Encounter Summary ---
Author Organization [employer] Address [address] [place] [address] Care Team Providers Care Flight Simulator Teacher Name Role Phone Unavailable Primary Care Provider Unavailabl e Encounter Details Date Type Department Care Team (Late st Contact Info) Description 01/21/2020 Transcribed Document [facility] [place] [facility] [place] [address] ProviderLora MD [address] [place], [place] [id number] Social History Tobacco Use Types Packs/Day Years Used Date Smoking Tobacco: Never Assessed Sex and Gender Information Value Date Recorded Sex Assigned at Not on file Legal Sex Male 5:25 PM CDT Gender Identity Not on file Sexual Orientation Not on file documented as of this encounter Miscellaneous Notes * Cerner Conversion Note - Historical ProviderMD - 01/21/2020 2:32 PM HEALTH PROGRAM SPECIALIST Nursing Discharge Summary Entered On: 01/21/2020 [...] - 01/21/2020 14:32 EST Electronically signed by [facility] Conversion Cafeteria Cook Cerner at 03/17/2023 9:22 AM CDT documented in this encounter Plan of Treatment Not on file documented as of this encounter Visit Diagnoses Not on filedocumented in this encounter
--- OUTSIDE RECORDS SUMMARY | 2025-05-19 10:17 | XMS_ITS | Clinical Summary ---
Author Organization [facility] Address [address] [place] [address] Care Team Providers Care Bullard Operator Name Role Phone Quyen Vincent DO Primary Care Provider [phone] Encounters Date Type Department Care Team Description 05/05/2025 Telephone [facility] [address] [place] [address] None, None from Last 3 [...] Info) Description 06/03/2025 8:00 AM EDT Consult [facility] Medicine Specialties [address] [place] [address] Kerline Holcomb R, SKI MOLDER [address] [place] [address] Health Maintenance Due Date Last [...] 2020 UKY-Zoster Vaccines (1 of 2) 2020 [id number] Vaccine (3 - 2023- season) 2024 03/10/2021, [...] patient's age to complete this topic Insurance [place] [address] [place] MEDICA[place] Care Teams Bullard Operator Relationship Specialty Start Date End Date Quyen Vincent DO [address] [place] [address] [place] [address] PCP - General 04/09/21
[2025-05-19 11:19] LABS: Chol/HDL Ratio 2.7 (1-3.5); Cholesterol 145 mg/dl (140-200); HDL Cholesterol 54 mg/dl (40-60); Triglycerides 106 mg/dl (30-150); VLDL Cholesterol 21 mg/dL (0-40)
[2025-05-19 11:30] LABS: Direct LDL Cholesterol 54.56 mg/dL (100-129)
[2025-05-19 11:37] LABS: Free T4 (Free Thyroxine) 1.09 ng/dl (0.78-2.19)
[2025-05-19 11:52] LABS: Thyroid Stimulating Hormone 5.69 uIU/mL (0.465-4.68)
== END 2025-05-19 23:59 | disposition home or self-care (01) ==
LOC: LAB 09:48
PROVIDERS: PCP Family Medicine; Visit Provider Nurse Practitioner
DX: I25.10 Atherosclerotic heart disease of native coronary artery without angina pectoris (principal); I10 Essential (primary) hypertension
CPT/HCPCS: 36415; 80061; 84439; 84443

== ENCOUNTER 2025-05-26 14:19 | Observation (INO) | payer MEDICAID, SELFPAY ==
[2025-05-26] VITALS (14 sets, daily range): BP systolic 116–207; BP diastolic 66–118; PULSE 67–89; RESP 11–18; TEMP 36.4–36.9; O2SAT 94–99; BMI 30.5
--- NOTE | 2025-05-26 14:22 | ECG_ITS ---
APPROVED REPORT Exam: Resting ECG HR:81 bpm ECG Measurements Heart Rate 81 AXES NJ 178 P 59 QRSd 93 QRS -30 QT 367 T 57 QTc 405 Conclusion SINUS RHYTHM BORDERLINE LEFT AXIS DEVIATION [QRS AXIS < -20] No STEMI Electronically signed by : JESUS MANUEL ROGER, 05/27/2025 02:31:16
--- NOTE | 2025-05-26 14:28 | XR_ITS ---
FINAL REPORT CLINICAL HISTORY: short of breath COMPARISON: 07/30/2024 FINDINGS: The heart size is normal. The mediastinum is normal. The lungs are underinflated. Mild chronic changes are noted in the lung bases. There are no pleural effusions. There is no pneumothorax. There is no osseous abnormality. IMPRESSION: Chronic changes without acute cardiopulmonary process Reviewed, Interpreted and Dictated by Cricket Menon MD Transcribed by Esthela Dasilva Authenticated and [facility]
--- NOTE | 2025-05-26 14:28 | CT_ITS ---
FINAL REPORT TECHNIQUE: Axial CT images were performed through the head. Coronal reformatted images were submitted. This study was performed with techniques to keep radiation doses as low as reasonably achievable (ALARA). Individualized dose reduction techniques using automated exposure control or adjustment of mA and/or kV according to the patient's size were employed. CLINICAL HISTORY: syncope COMPARISON: 02/21/2025 FINDINGS: Mild atrophy is noted. There is no evidence of hemorrhage. There is no mass or edema identified. There is no abnormal extra-axial fluid seen. The paranasal sinuses are well aerated. IMPRESSION: No acute intracranial process. Reviewed, Interpreted and Dictated by Cricket Menon MD Transcribed by Esthela Dasilva Authenticated and [facility]
--- OUTSIDE RECORDS SUMMARY | 2025-05-26 14:29 | XMS_ITS | Encounter Summary ---
Author Organization [employer] ([place], [place], [place], [place]) Address [address] [place] [address] Care Team Providers Care Truck Driver Supervisor Name Role Phone Unavailable Primary Care Provider Unavailabl e Encounter Details Date Type Department Care Team (Late st Contact Info) Description 01/21/2020 Transcribed Document [facility] [place] Family Medicine [address] [place] [address] ProviderLora MD [address] [place], [place] [id number] Social History Tobacco Use Types Packs/Day Years Used Date Smoking Tobacco: Never Assessed Sex and Gender Information Value Date Recorded Sex Assigned at Not on file Legal Sex Male 5:25 PM CDT Gender Identity Not on file Sexual Orientation Not on file documented as of this encounter Miscellaneous Notes * Cerner Conversion Note - Lora ProviderMD - 01/21/2020 11:07 AM CHILD CARE SITTER Stroke/Warfarin Instructions Entered On: 01/21/2020 11:07 EST [...] EST Electronically signed by Cathryn Watts Conversion Wireless Communications Engineer Cerner at 03/17/2023 9:45 AM CDT documented in this encounter Plan of Treatment Not on file documented as of this encounter Visit Diagnoses Not on filedocumented in this encounter
--- OUTSIDE RECORDS SUMMARY | 2025-05-26 14:29 | XMS_ITS | Encounter Summary ---
Author Organization [employer] ([place], [place], [place], [place]) Address [address] [place] [address] Care Team Providers Care Technical Proposal Writer Name Role Phone Unavailable Primary Care Provider Unavailabl e Encounter Details Date Type Department Care Team (Late st Contact Info) Description 01/23/2020 Transcribed Document [facility] [place] Medicine [address] [place] [address] ProviderLora MD [address] [place], [place] [id number] Social History Tobacco Use Types Packs/Day Years Used Date Smoking Tobacco: Never Assessed Sex and Gender Information Value Date Recorded Sex Assigned at Not on file Legal Sex Male 5:25 PM CDT Gender Identity Not on file Sexual Orientation Not on file documented as of this encounter Miscellaneous Notes * Cerner Conversion Note - Lora ProviderMD - 01/23/2020 2:20 PM COOK PICKLED MEAT UM Authorization Entered On: 01/23/2020 14:23 EST Performed On: 01/23/2020 14:20 EST by LORENA GOLDMAN RN Primary Insurance Authorization Authorization and Policy Numbers : Insurance 1 Health Plan: [employer] [address] [employer] Policy Number: [id number] Authorization Number: Insurance Primary Name : [employer] Policy Number: [id number] Authorization Status-Primary : Drg approved Auth/Referral Contact Name-Primary : [place] Reference Number-Primary : [id number] Number of Days Authorized-Primary : 1 Day(s) Authorized Service Begin Date-Primary : 01/18/2020 EST Authorized Service End Date-Primary : 01/19/2020 EST Authorization Comments-Primary : Per Availity, DRG approved. Historical Authorization Comments-Primary : Comment 1: Discharge date and summary faxed. (Roxie Marshall, Hall Manager 01/22/2020 13:27) Comment 2: 2 days los approved, nrd 01/20, clinicals faxed via [employer] for C/S (JOAQUIN PETTY RN 01/21/2020 10:45) Comment 3: Submitted Inpt Auth on Availity with clinicals attached. (HORACIO REGALADO, Rn-Utilization Review 01/19/2020 15:14) LORENA GOLDMAN RN - 01/23/2020 14:20 EST Electronically signed by Paul Watts Conversion Certified Wellness Program Coordinator Cerner at 03/17/2023 9:36 AM CDT documented in this encounter Plan of Treatment Not on file documented as of this encounter Visit Diagnoses Not on filedocumented in this encounter
--- OUTSIDE RECORDS SUMMARY | 2025-05-26 14:29 | XMS_ITS | Encounter Summary ---
Author Organization [employer] ([place], [place], [place], [place]) Address [address] [place] [address] Care Team Providers Care Oncology Physician Assistant Name Role Phone Unavailable Primary Care Provider Unavailabl e Encounter Details Date Type Department Care Team (Late st Contact Info) Description 01/22/2020 Transcribed Document [facility] [place] Family Medicine [address] [place] [address] ProviderLora MD [address] [place], [place] [id number] Social History Tobacco Use Types Packs/Day Years Used Date Smoking Tobacco: Never Assessed Sex and Gender Information Value Date Recorded Sex Assigned at Not on file Legal Sex Male 5:25 PM CDT Gender Identity Not on file Sexual Orientation Not on file documented as of this encounter Miscellaneous Notes * Cerner Conversion Note - Lora ProviderMD - 01/22/2020 1:27 PM AUTO LOCATOR UM Authorization Entered On: 01/22/2020 13:28 EST Performed On: 01/22/2020 13:27 EST by Roxie Marshall, Health Informatics Advisor Primary Insurance Authorization Authorization and Policy Numbers : Insurance 1 Health Plan: [facility] Policy Number: [id number] Authorization Number: Insurance [facility] Policy Number: [id number] Authorization Status-Primary : Admit approved Auth/Referral Contact Name-Primary : [place] Reference Number-Primary : [id number] Number of Days Authorized-Primary : 1 Day(s) [...] REGALADO, Rn-Utilization Review 01/19/2020 15:14) Roxie Marshall, Health Informatics Advisor - 01/22/2020 13:27 EST Electronically signed by [facility], [facility] Conversion Tanker Service Attendant Cerner at 03/17/2023 9:31 AM CDT documented in this encounter Plan of Treatment Not on file documented as of this encounter Visit Diagnoses Not on filedocumented in this encounter
--- OUTSIDE RECORDS SUMMARY | 2025-05-26 14:29 | XMS_ITS | Encounter Summary ---
Author Organization [employer] ([place], [place], [place], [place]) Address [address] [place] [address] Care Team Providers Care Human Service Technician Name Role Phone Unavailable Primary Care Provider Unavailabl e Encounter Details Date Type Department Care Team (Late st Contact Info) Description 01/21/2020 Transcribed Document [facility] [place] Medicine [facility] [place] [address] ProviderLora MD [address] [place], [place] [id number] Social History Tobacco Use Types Packs/Day Years Used Date Smoking Tobacco: Never Assessed Sex and Gender Information Value Date Recorded Sex Assigned at Not on file Legal Sex Male 5:25 PM CDT Gender Identity Not on file Sexual Orientation Not on file documented as of this encounter Miscellaneous Notes * Cerner Conversion Note - Lora ProviderMD - 01/21/2020 12:11 PM STONE ROUGHER Final Discharge Planning Entered On: 01/21/2020 12:15 [...] : Yes Discharge To Care Management : Home/Residential/Penitentiary or Self Care -01 SANDY LEIJA, RN-Care Management - 01/21/2020 12:11 EST Final Narrative Note Final Narrative Note : Discharging today w/f/u appt made w/ID along w/plans for IV abx therapy beginning tomorrow w/[facility] SANDY LEIJA RN-Care Management - 01/21/2020 12:11 EST Electronically signed by [facility], [facility] Conversion Deputy Treasurer Cerner at 03/17/2023 9:46 AM CDT documented in this encounter Plan of Treatment Not on file documented as of this encounter Visit Diagnoses Not on filedocumented in this encounter
--- OUTSIDE RECORDS SUMMARY | 2025-05-26 14:29 | XMS_ITS | Clinical Summary ---
Author Organization [facility] ([place], [place], [place], [place]) Address [address] [place] [address] Care Team Providers Care Tax Compliance Representative Name Role Phone Unavailable Primary Care [...]
--- OUTSIDE RECORDS SUMMARY | 2025-05-26 14:30 | XMS_ITS | Encounter Summary ---
Author Organization [employer] ([place], [place], [place], [place]) Address [address] [place] [address] Care Team Providers Care Apparatus Repair Mechanic Name Role Phone Unavailable Primary Care Provider Unavailabl e Encounter Details Date Type Department Care Team (Late st Contact Info) Description 01/21/2020 Transcribed Document [facility] [place] Medicine [address] [place] [address] ProviderLora MD [address] [place] [address] Social History Tobacco Use Types Packs/Day Years Used Date Smoking Tobacco: Never Assessed Sex and Gender Information Value Date Recorded Sex Assigned at Not on file Legal Sex Male 5:25 PM CDT Gender Identity Not on file Sexual Orientation Not on file documented as of this encounter Miscellaneous Notes * Cerner Conversion Note - Lora ProviderMD - 01/21/2020 1:00 PM INFORMATION SECURITY ENGINEER [facility] [place] [address] JONATHAN DELGADO :1970 [...] ID, Ins Co-pay Where: [address] [place] [address]- Follow Up with CHERISE HOWELL When 01/27/2020 01:40 PM EST Comments Appointment has been made Bring discharge instructions with you Bring Ins Card, Photo ID, Ins Co-pay Where: [address] [facility] [facility] [address] [place] [address]- Business (1) Follow Up with MARA FLORES When 01/22/2020 01:30 PM EST Comments Appointment has been madeBring discharge instructions with you Bring Ins Card, Photo ID, Ins Co-pay Where: [address] [facility] [place] [address]- Business (1) Medications What How Much When [...] that you work with a diet and nutritional services cook (dietitian) to make a meal plan that [...] provider. ??? Work with a counselor or religious educator to identify strategies to manage stress and any emotional and social challenges. Questions to ask a health care provider ??? Do I need to meet with a religious educator? Do I need to meet with a dietitian? What number can I call if I have questions? When are the best times to check my blood glucose? Where to find more information: ??? [place] Diabetes Association: diabetes.org ??? Academy of Nutrition and Dietetics: www.eatright.org ??? National [place] of Diabetes and Digestive and Kidney Diseases (NIH): www.niddk.nih.gov Summary ??? A healthy meal plan will help you control your blood glucose and maintain a healthy lifestyle. ??? Working with a diet and nutritional services cook (dietitian) can help you make a meal [...] 08/10/2006 Document Revised: 06/13/2018 Document Reviewed: 12/18/2017 Visuu Interactive Patient Education ?? 2019 [employer] Inc. Carbohydrate Counting for Diabetes Mellitus, Adult [...] different for every person. A diet and nutritional services cook (registered dietitian) can help you make a [...] of carbohydrates: ? hamburger bun or ?? Hungarian muffin. ? oz (15 mL) syrup. ? [...] foods that contain carbohydrates: ??? Rice. ??? Foreman. ??? Milk. ??? Strawberries. 2. Calculate how [...] manage your diabetes. ??? A diet and nutritional services cook (registered dietitian) can help you make a meal plan and calculate how many carbohydrates you should have at each meal and snack. This information is not intended to replace advice given to you by your health care provider. Make sure you discuss any questions you have with your health care provider. Document Released: 11/13/2006 Document Revised: 05/23/2018 Document Reviewed: 04/26/2017 ElseIPXI Interactive Patient Education ?? 2019 Visuu Inc. Incision and Drainage, Care After Refer [...] Follow these instructions at home: ??? Take opem-edq-yahspri and prescription medicines only as told by [...] and water are not available, use hand programmer business. ? When you should remove your dressing. [...] 02/04/2013 Document Revised: 04/14/2017 Document Reviewed: 09/02/2016 Visuu Interactive Patient Education ?? 2019 [employer] Inc. Diabetes and Foot Care Diabetes may [...] 11/10/2001 Document Revised: 04/20/2017 Document Reviewed: 04/22/2014 Visuu Interactive Patient Education ?? 2017 [employer]. oxycodone (ox i KOE done) Oxaydo, OxyCONTIN, [...] The extended-release form of oxycodone is for afcanr-wdd-cdrxv treatment of pain and should not be [...] against the law. Stop taking all other avjssg-hde-fhywl narcotic pain medicines when you start taking [...] may report side effects to FDA at 4-255-UBH-4588. What other drugs will affect oxycodone? You [...] may affect oxycodone. This includes prescription and hwbn-iwe-wfzepfs medicines, vitamins, and herbal products. Not all [...] to ensure that the information provided by [employer]. ('Multum') is accurate, up-to-date, and complete, but no guarantee is made to that effect. Drug information contained herein may be time sensitive. Penana information has been compiled for use by healthcare practitioners and consumers in the [place] and therefore Penana does not warrant that uses outside of the [place] are appropriate, unless specifically indicated otherwise. Pen[employer]'s drug information does not endorse drugs, diagnose patients or recommend therapy. [employer] drug information is an informational resource designed [...] effective or appropriate for any given patient. Penana does not assume any responsibility for any aspect of healthcare administered with the aid of information Penana provides. The information contained herein is not intended to cover all possible uses, directions, precautions, warnings, drug interactions, allergic reactions, or adverse effects. If you have questions about the drugs you are taking, check with your doctor, nurse or pharmacist. Copyright 0379-4815 [employer]. Version: 13.03. Revision Date: 09/09/2019. lactobacillus acidophilus [...] may report side effects to FDA at 0-262-BQW-4614. What other drugs will affect lactobacillus acidophilus? Do not take lactobacillus acidophilus without medical advice if you are using any medications that can weaken your immune system, such as: ?? medicine to prevent organ transplant rejection; or ?? steroid medicine (prednisone, dexamethasone, methylprednisolone, and others). This list is not complete. Other drugs may interact with lactobacillus acidophilus, including prescription and hyqd-ikc-jrgqoae medicines, vitamins, and herbal products. Not all [...] to ensure that the information provided by [employer] ('Multum') is accurate, up-to-date, and complete, but no guarantee is made to that effect. Drug information contained herein may be time sensitive. Penana information has been compiled for use by healthcare practitioners and consumers in the [place] and therefore Penana does not warrant that uses outside of the [place] are appropriate, unless specifically indicated otherwise. [employer] drug information does not endorse drugs, diagnose patients or recommend therapy. [employer] drug information is an informational resource designed [...] effective or appropriate for any given patient. Pen[employer] does not assume any responsibility for any aspect of healthcare administered with the aid of information Penana provides. The information contained herein is not intended to cover all possible uses, directions, precautions, warnings, drug interactions, allergic reactions, or adverse effects. If you have questions about the drugs you are taking, check with your doctor, nurse or pharmacist. Copyright 8721-8537 [employer]. Version: 3.07. Revision Date: 05/05/2017. Emergency Awareness [...] Assistance with quitting is available by contacting 7-813-UBAYNOW. This is a free resource providing counseling, [...] range between ( 0.0 and 7.0 ) Amador #: 0.59 K/uL -- Normal range between ( 0.16 and 1.00 ) Eos #: 0.26 x10(3)/uL -- Normal range between ( 0.00 and 0.80 ) Amador %: 9.1 % -- Normal range between [...] ART LE Duplex BILAT Patient Name:JONATHAN DELGADO Wayne I have received and understand this information and was given the opportunity to ask questions. Patient/Sales Route Driver Name: Patient/Sales Route Driver Signature: Relationship to Patient: Clinician/Hospital Sales Route Driver Signature: Date: documented in this encounter Plan of Treatment Not on file documented as of this encounter Visit Diagnoses Not on filedocumented in this encounter
--- OUTSIDE RECORDS SUMMARY | 2025-05-26 14:30 | XMS_ITS | Encounter Summary ---
Author Organization [email or web address] ([place], [place], [place], [place]) Address [address] [place] [address] Care Team Providers Care Form Raiser Name Role Phone Unavailable Primary Care Provider Unavailabl e Encounter Details Date Type Department Care Team (Late st Contact Info) Description 01/19/2020 Transcribed Document [facility] [place] [address] [place] [address] ProviderLora MD [address] [id number] Social History Tobacco Use Types Packs/Day Years Used Date Smoking Tobacco: Never Assessed Sex and Gender Information Value Date Recorded Sex Assigned at Not on file Legal Sex Male 5:25 PM CDT Gender Identity Not on file Sexual Orientation Not on file documented as of this encounter Miscellaneous Notes * Cerner Conversion Note - Historical ProviderMD - 01/19/2020 9:00 AM EXECUTIVE LEGAL SECRETARY Consult Phone Call Documentation Entered On: 01/19/2020 10:28 EST Performed On: 01/19/2020 9:00 EST by Jessica Johnson [facility] Coord Phone Call for Consults Consult Phone Call/Page Attempt : Second call Consult Reason : foot cellulitis Physician Requesting Consult : CONRAD GARDNER MD-[facility] Physician Requested for Consult : TANISHA AMAYA DPM-POD Provider Service Notified Name : Podiatry Physician Covering for Consult : CHERISE HOWELL DPM-TOMMY Date and Time Call Returned : 01/19/2020 10:28 EST Jessica Johnson [facility] Coord - 01/19/2020 10:27 EST Electronically signed by Stefanie Cox [place] Conversion Crinkling Machine Operator Cerner at 03/17/2023 9:14 AM CDT documented in this encounter Plan of Treatment Not on file documented as of this encounter Visit Diagnoses Not on filedocumented in this encounter
--- OUTSIDE RECORDS SUMMARY | 2025-05-26 14:30 | XMS_ITS | Encounter Summary ---
Author Organization [employer] ([place], [place], [place], [place]) Address [address] [place] [address] Care Team Providers Care Community Product Specialist Name Role Phone Unavailable Primary Care Provider Unavailabl e Encounter Details Date Type Department Care Team (Late st Contact Info) Description 01/19/2020 Transcribed Document [facility] [place] [address] [place] [address] ProviderLora MD [address], [place] [address] Social History Tobacco Use Types Packs/Day Years Used Date Smoking Tobacco: Never Assessed Sex and Gender Information Value Date Recorded Sex Assigned at Not on file Legal Sex Male 5:25 PM CDT Gender Identity Not on file Sexual Orientation Not on file documented as of this encounter Miscellaneous Notes * Cerner Conversion Note - Historical ProviderMD - 01/19/2020 2:05 PM NEEDLE FELT MAKING MACHINE OPERATOR Patient: JONATHAN DELGADO Age: 49 years [...] hyperlipidemia and hypertension. He originally presented to [facility] with complaints of left foot pain. States that this pain began about Monday is when he first noticed. He has his took his foot and discovered that there was a wound on the sole of his left foot on the ball of the foot. He does not recall any trauma to the foot. Family stated that due to a disagreement with the ore buyer that was on duty they requested transfer from that facility to here. Labs at outside hospital showed patient was without leukocytosis and was generally unremarkable. Cultures were obtained and patient was given 2 g IV Rocephin. He did receive a foot x-ray while at [facility] but the report did not accopany [...] process/pending Rad: Radiology Results (Last 48 hours) [id number] -- 01/18/2020 16:50 CR Chest 2 Vws [...] the above plan care Romario Scott APRN [facility] I discussed his situation with Dr. Sevilla documented in this encounter Plan of Treatment Not on file documented as of this encounter Visit Diagnoses Not on filedocumented in this encounter
--- OUTSIDE RECORDS SUMMARY | 2025-05-26 14:30 | XMS_ITS | Encounter Summary ---
Author Organization Healthcare Address [address] [place] [address] Care Team Providers Care Java Lead Engineer Name Role Phone Quyen Vincent DO Primary Care Provider [phone] Encounter Details Date Type Department Care Team (Late st Contact Info) Description 05/05/2025 Telephone [place] [facility] Medicine Specialties [address] [place] [address] None, None [address] [place] [address] Social History Tobacco Use Types [...] him back to schedule. Best contact number: [phone] (mobile) Optimal time of day to reach [...] will receive notification of the communication/outcome via [employer]. documented in this encounter Plan of Treatment Upcoming Encounters Date Type Department Care Team (Late st Contact Info) Description 06/17/2025 9:[address] [facility] Medicine Specialties [address] [place] [address] Aicha, November R, AUDITOR APPRAISER [address] [place] [address] documented as of this encounter Visit Diagnoses Not on filedocumented in this encounter Care Teams Java Lead Engineer Relationship Specialty Start Date End Date Quyen Vincent DO [address] [place] [address] PCP - General 04/09/21 documented as of this encounter
--- OUTSIDE RECORDS SUMMARY | 2025-05-26 14:30 | XMS_ITS | Clinical Summary ---
Author Organization [facility] Address [address] [place] [address] Phone Care Team Providers Care It Business Process Architect Name Role Phone Giles DE LA CRUZ, Adryan Lucio [phone] [ ] Conditions or Problems Problem Name [...] fat layer exposed Coronary artery disease (CAD) 10024564 (SNOMED CT) 01/21 Active 01/21 Georgina Ruth Coronary arteriosclerosis DM II with diabetic peripheral neuropathy 15151865 (SNOMED CT) 01/21 Active 01/21 Georgina Ruth Type 2 diabetes mellitus Benign Essential Hypertension 4629010 (SNOMED CT) 01/21 Active 01/21 Georgina Ruth Benign essential hypertension Wound infection/Ce llulitis of left foot L03.116 (ICD-10-CM ) 01/21 Active 01/21 Treva W Cellulitis of left lower limb MSSA infection 276337248 (SNOMED CT) 01/21 Active 01/21 Treva W Infection by methicillin sensitive Staphylococcus aureus Medications Medication Instructions Start Date Stop Date Generic Name ND Provider KEFLEX 500 MG ORAL CAPSULE one po qid CEPHALEXIN 20326507970 Radha Tucker APRN CEFTRIAXONE SODIUM 2 GM SOLR Rocephin 2GM IV Q24hrs - INPAT CEFTRIAXONE SODIUM 68481246108 Silvia Trujillo RN CEPHALEXIN 500 MG CAPS Take 1 by mouth 4 times a day CEPHALEXIN 29680538603 Adryan Skaggs MD CEFTRIAXONE SODIUM 2 GM SOLR Rocephin 2GM IV Q24hrs - INPAT CEFTRIAXONE SODIUM 98030524405 Yuni Christine SERTRALINE HCL 100 MG TABS 2 tablets daily SERTRALINE HCL 83295830735 Macarena Maria PRILOSEC OTC 20 MG TBEC Take 1 tablet by mouth daily OMEPRAZOLE MAGNESIUM 41892986810 Macarena Maria OXYCODONE HCL 5 MG TABS Take one (1) tablet by mouth four times a day as needed OXYCODONE HCL 17109083368 Macarena Maria NOVOLOG 100 UNIT/ML SUBCUTANEOUS SOLUTION INSULIN ASPART 42604292424 Macarena Maria LIPITOR 40 MG TABS Take 1 tablet by mouth daily ATORVASTATIN CALCIUM 38831978914 Macarena Maria LANTUS 100 UNIT/ML SOLN INSULIN GLARGINE 97067989519 Macarena Maria JARDIANCE 25 MG TABS Take 1 tablet by mouth daily in the AM EMPAGLIFLOZIN 38589730362 Macarena Maria ADULT ASPIRIN REGIMEN 81 MG ORAL TABLET DELAYED RELEASE Take 1 tablet by mouth daily ASPIRIN 51822145079 Macarena Maria Medications Administered No information available. [...]
--- OUTSIDE RECORDS SUMMARY | 2025-05-26 14:30 | XMS_ITS | Encounter Summary ---
Author Organization [employer] ([place], [place], [place], [place]) Address [address] [place] [address] Care Team Providers Care Printed Circuit Board Panels Plater Name Role Phone Unavailable Primary Care Provider Unavailabl e Encounter Details Date Type Department Care Team (Late st Contact Info) Description 01/21/2020 Transcribed Document [facility] [place] [address] [place] [address] ProviderLora MD [address] [place] [address] Social History Tobacco Use Types Packs/Day Years Used Date Smoking Tobacco: Never Assessed Sex and Gender Information Value Date Recorded Sex Assigned at Not on file Legal Sex Male 5:25 PM CDT Gender Identity Not on file Sexual Orientation Not on file documented as of this encounter Miscellaneous Notes * Cerner Conversion Note - Historical ProviderMD - 01/21/2020 5:00 AM COIN MACHINE MECHANIC Chart Check - Review Order Profile Entered [...]
--- OUTSIDE RECORDS SUMMARY | 2025-05-26 14:30 | XMS_ITS | Encounter Summary ---
Author Organization [employer] ([place], [place], [place], [place]) Address [address] [place] [address] Care Team Providers Care Plastics Factory Worker Name Role Phone Unavailable Primary Care Provider Unavailabl e Encounter Details Date Type Department Care Team (Late st Contact Info) Description 01/21/2020 Transcribed Document [facility] [place] [address] [place] [address] ProviderLora MD [address] [place] [address] Social History Tobacco Use Types Packs/Day Years Used Date Smoking Tobacco: Never Assessed Sex and Gender Information Value Date Recorded Sex Assigned at Not on file Legal Sex Male 5:25 PM CDT Gender Identity Not on file Sexual Orientation Not on file documented as of this encounter Miscellaneous Notes * Cerner Conversion Note - Lora ProviderMD - 01/21/2020 10:45 AM BLANKET BINDER UM Authorization Entered On: 01/21/2020 10:45 EST Performed On: 01/21/2020 10:45 EST by JOAQUIN PETTY RN Primary Insurance Authorization Authorization and Policy Numbers : Insurance 1 Health Plan: ANTH [employer] Policy Number: [id number] Authorization Number: Insurance Primary Name : ANTH HMOPPO Policy Number: [id number] Authorization Status-Primary : Admit approved Reference Number-Primary : [id number] Number of Days Authorized-Primary : 1 Day(s) Authorized Service Begin Date-Primary : 01/18/2020 EST Authorized Service End Date-Primary : 01/19/2020 EST Authorization Comments-Primary : 2 days los approved, nrd 01/20, clinicals faxed via [employer] for C/S Historical Authorization Comments-Primary : Comment 1: Submitted Inpt Auth on Availity with clinicals attached. (HORACIO REGALADO Rn-Utilization Review 01/19/2020 15:14) JOAQUIN PETTY RN - 01/21/2020 10:45 EST Electronically signed by Stefanie [facility] Conversion Golf Cart Mechanic Cerner at 03/17/2023 9:23 AM CDT documented in this encounter Plan of Treatment Not on file documented as of this encounter Visit Diagnoses Not on filedocumented in this encounter
--- OUTSIDE RECORDS SUMMARY | 2025-05-26 14:30 | XMS_ITS | Encounter Summary ---
Author Organization [employer] ([place], [place], [place], [place]) Address [address] [place] [address] Care Team Providers Care Bench Molder Apprentice Name Role Phone Unavailable Primary Care Provider Unavailabl e Encounter Details Date Type Department Care Team (Late st Contact Info) Description 01/19/2020 Transcribed Document [facility] [place] [address] [place] [address] ProviderLora MD [address] [place] [address] Social History Tobacco Use Types Packs/Day Years Used Date Smoking Tobacco: Never Assessed Sex and Gender Information Value Date Recorded Sex Assigned at Not on file Legal Sex Male 5:25 PM CDT Gender Identity Not on file Sexual Orientation Not on file documented as of this encounter Miscellaneous Notes * Cerner Conversion Note - Historical ProviderMD - 01/19/2020 5:00 AM MACHINE WORKER Chart Check - Review Order Profile Entered [...]
--- OUTSIDE RECORDS SUMMARY | 2025-05-26 14:30 | XMS_ITS | Encounter Summary ---
Author Organization [employer] ([place], [place], [place], [place]) Address [address] [place] [address] Care Team Providers Care Soil Chemist Name Role Phone Unavailable Primary Care Provider Unavailabl e Encounter Details Date Type Department Care Team (Late st Contact Info) Description 01/21/2020 Transcribed Document [facility] Radiology [address] [place] [address] Nikole Bravo MD [address] [place] [address] Social History Tobacco Use Types Packs/Day [...] Date 01/21/2020 Primary Care Provider ADRIAN DELACRUZ DO-[facility] Discharge Diagnosis Diabetic foot ulcer/cellulitis. Osteomyelitis ruled out with MRI Coronary artery disease Diabetes mellitus. Hypertension. Hospital Course 49 yo male with history with CAD (PCI 2013), HTN, and DM presented to outside facility with complaints of redness of left foot, fever and chills. Pt transferred to [facility] for further evaluation and treatment. Pt states he started with fever and chills earlier in the week. Thursday started noticing redness on bottom of left [...] home IV antibiotics versus IV antibiotics at [facility] infectious office patient can be discharged on ceftriaxone 2 g IV daily. With wound dressing at [facility] infectious disease office and per his [...] PM MARA FLORES - 01:30 PM ADRIAN DELCARUZ DO-FAM - 10:00 AM Discharge Medications (10) [...] - foot cellulitis MARA FLORES MD-INF CHERISE HOWELL DPM-TOMMY Current Diet Order Diet, Adult - Ordered -- Start: 01/18/20 17:51:00 EST, 75 gm carbs:[id number] arturo Patient Discharge Summary Orders Discharge Activity: [...]
--- OUTSIDE RECORDS SUMMARY | 2025-05-26 14:30 | XMS_ITS | Clinical Summary ---
Author Organization Healthcare Address [address] [place] [address] Care Team Providers Care Commercial Banker Name Role Phone Quyen Vincent DO Primary Care Provider [phone] Encounters Date Type Department Care Team Description 05/05/2025 Telephone [place] [facility] Medicine Specialties [address] [place] [address] None, None from Last 3 [...] Info) Description 06/17/2025 9:30 AM EDT Consult [facility] Medicine Specialties [address] [place] [address] Kerline Holcomb R, ENDODONTIC ASSISTANT [address] [place] [address] Health Maintenance Due Date Last [...] 2020 UKY-Zoster Vaccines (1 of 2) 2020 [id number]-[id number]-24 Vaccine (3 - 2023- season) 2024 03/10/2021, [...] patient's age to complete this topic Insurance [place] [address] [employer] MEDICA[employer] Care Teams Commercial Banker Relationship Specialty Start Date End Date Quyen Vincent DO [address] [place] [address] [place] [address] PCP - General 04/09/21
--- OUTSIDE RECORDS SUMMARY | 2025-05-26 14:30 | XMS_ITS | Encounter Summary ---
Author Organization [employer] ([place], [place], [place], [place]) Address [address] [place] [address] Care Team Providers Care Cnc Set Up Operator Name Role Phone Unavailable Primary Care Provider Unavailabl e Encounter Details Date Type Department Care Team (Late st Contact Info) Description 01/20/2020 Transcribed Document [facility] Radiology [address] [place] [address] Paresh Bravo MD [address] [place] [id number] Social History Tobacco Use Types Packs/Day [...] mg, 18 mL, 136 mL/Hr, IV Piggyback, [id number] DAPTOmycin + Sodium Chloride 0.9% intravenous solution 50 mL: 900 mg, 18 mL, 136 mL/Hr, IV Piggyback, Z62TOnp DuoNeb 0.5 mg-2.5 mg/3 mL inhalation solution: [...] mL: 2 Gram, 100 mL/Hr, IV Piggyback, [id number] Tylenol: 650 mg, Oral, Q4H, PRN: Other [...] 0.9% 50 mL 2 Gram, IV Piggyback, I13VQub DAPTOmycin + NaCl 0.9% 50 mL 900 mg 18 mL, IV Piggyback, X90CWcw DAPTOmycin + NaCl 0.9% 50 mL 900 mg 18 mL, IV Piggyback, K16LNdu famotidine 20 mg tab 20 mg 1 [...] History of obstructive sleep apnea / IMO [id number] / Confirmed, Active Problems (11) Angina Coronary [...] 42.9 \ Radiology Results (Last 48 hours) [id number] -- 01/19/2020 15:12 CR Chest 2 Vws [...] by Dr. Dewayne Javed.Transcribed by Jaycee Christianson PA-C.Zoran have personally viewed, interpreted and dictated the [...] (JAN 18) Cl 107 (JAN 20) 106 (JAN 19) 105 (JAN 18) CO2 29 (JAN 20) 29 (JAN 19) 28 (JAN 18) BUN 20 (JAN 20) 22 (JAN 19) H 23 (JAN 18) Cr 1.00 (JAN 20) 1.10 (JAN 19) 1.10 (JAN 18) Glu R H 145 (JAN 20) H 165 (JAN 19) H 209 (JAN 18) Ca 9.3 (DEC 24) 8.6 (B 23) 8.6 (JAN 18) Lactic 0.7 (B ) 1.1 (JAN 18) PT 10.2 (JAN 18) [...] 50 mL) 2 Gram, IV Piggyback, Inj, I63QGpy, infuse over 30 Minute(s), Routine, Start 01/20/20 16:00:00 EST, 100 mL/Hr, Indication: Skin and Skin Structure Infection SARCINELLA, MYNOR, TELEPHONE PLANT POWER OPERATOR DAPTOmycin + Sodium Chloride 0.9% intravenous solution 50 mL 900 mg, IV Piggyback, F04GPyx, infuse over 30 Minute(s), Routine, Start 01/20/20 21:00:00 EST, 136 mL/Hr, Indication: Skin and Skin Structure Infection SARCINELLA, MYNOR, TELEPHONE PLANT POWER OPERATOR DAPTOmycin + Sodium Chloride 0.9% intravenous solution 50 mL 900 mg, IV Piggyback, R89TAnm, infuse over 30 Minute(s), order duration: 1 Time(s), Routine, Start 01/19/20 16:00:00 EST, Stop 01/20/20 15:59:00 EST, 136 mL/Hr, Indication: Skin and Skin Structure Infection SARCINELLA, MYNOR, TELEPHONE PLANT POWER OPERATOR insulin glargine (Lantus) 18 Units, SubCutaneous, Inj, [...] solution 100 mL) 2 Gram, IV Piggyback, D44TWhu, infuse over 30 Minute(s), Routine, Start 01/19/20 16:00:00 EST, 200 mL/Hr, Indication: Skin and Skin Structure Infection SARCINELLA, MYNOR, TELEPHONE PLANT POWER OPERATOR meropenem + Sodium Chloride 0.9% intravenous solution [...]
--- OUTSIDE RECORDS SUMMARY | 2025-05-26 14:30 | XMS_ITS | Encounter Summary ---
Author Organization [employer] ([place], [place], [place], [place]) Address [address] [place] [address] Care Team Providers Care Motorcycle Subassembler Name Role Phone Unavailable Primary Care Provider Unavailabl e Encounter Details Date Type Department Care Team (Late st Contact Info) Description 01/19/2020 Transcribed Document [facility] [place] [address] [place] [address] ProviderLora MD [address] [place], [place] [id number] Social History Tobacco Use Types Packs/Day Years Used Date Smoking Tobacco: Never Assessed Sex and Gender Information Value Date Recorded Sex Assigned at Not on file Legal Sex Male 5:25 PM CDT Gender Identity Not on file Sexual Orientation Not on file documented as of this encounter Miscellaneous Notes * [employer] Conversion Note - Historical ProviderMD - 01/19/2020 9:00 AM INVERFORM MACHINE OPERATOR Consult Phone Call Documentation Entered On: 01/19/2020 11:27 EST Performed On: 01/19/2020 9:00 EST by Jessica Johnson [facility] Coord Phone Call for Consults Consult Phone Call/Page Attempt : First call Consult Reason : PVD/ CAD Physician Requesting Consult : CONRAD GARDNER MD-[facility] Physician Requested for Consult : RIGO KAISER MD-CAR Provider Service Notified Name : Cardiology Physician Covering for Consult : MADHU MARTIN PAC-CAT Date and Time Call Returned : 01/19/2020 11:27 EST Jessica Johnson [facility] Coord - 01/19/2020 11:26 EST Electronically signed by Stefanie [facility] Conversion Upholstery Tech Cerner at 03/17/2023 9:29 AM CDT documented in this encounter Plan of Treatment Not on file documented as of this encounter Visit Diagnoses Not on filedocumented in this encounter
--- OUTSIDE RECORDS SUMMARY | 2025-05-26 14:30 | XMS_ITS | Encounter Summary ---
Author Organization [employer] ([place], [place], [place], [place]) Address [address] [place] [address] Care Team Providers Care Grade Checker Name Role Phone Unavailable Primary Care Provider Unavailabl e Encounter Details Date Type Department Care Team (Late st Contact Info) Description 01/18/2020 Transcribed Document [facility] [place] [facility] [place] [address] ProviderLora MD [address], [place] [id number] Social History Tobacco Use Types Packs/Day Years Used Date Smoking Tobacco: Never Assessed Sex and Gender Information Value Date Recorded Sex Assigned at Not on file Legal Sex Male 5:25 PM CDT Gender Identity Not on file Sexual Orientation Not on file documented as of this encounter Miscellaneous Notes * [employer]ner Conversion Note - Lora ProviderMD - 01/18/2020 9:06 PM PARASITOLOGY TEACHER DATE OF ADMISSION: 01/18/2020 PRIMARY CARE PHYSICIAN: [...] patient has been evaluated and transferred to [facility]. The patient came in. Blood work [...] will check x-ray. We will consult the skating rink manager. Start IV antibiotic. 3. Diabetes mellitus. The [...] Chart was reviewed. Time spent, 55 minutes. /[id number] MD GABY Malloy/KELLEY / GABY / LUCIO Electronically signed by Stefanie, [facility] Conversion Accounting Professor Cerner at 03/17/2023 9:14 AM CDT documented in this encounter Plan of Treatment Not on file documented as of this encounter Visit Diagnoses Not on filedocumented in this encounter
--- OUTSIDE RECORDS SUMMARY | 2025-05-26 14:30 | XMS_ITS | Encounter Summary ---
Author Organization [employer] ([place], [place], [place], [place]) Address [address] [place] [address] Care Team Providers Care Ip Technology Transactions Attorney Name Role Phone Unavailable Primary Care Provider Unavailabl e Encounter Details Date Type Department Care Team (Late st Contact Info) Description 01/19/2020 Transcribed Document [facility] [place] [facility] [place] [address] ProviderLora MD [address] [place], [place] [id number] Social History Tobacco Use Types Packs/Day Years Used Date Smoking Tobacco: Never Assessed Sex and Gender Information Value Date Recorded Sex Assigned at Not on file Legal Sex Male 5:25 PM CDT Gender Identity Not on file Sexual Orientation Not on file documented as of this encounter Miscellaneous Notes * [employer]ner Conversion Note - Lora ProviderMD - 01/19/2020 11:27 AM HOME APPLIANCE WASHING MACHINE MECHANIC Patient: JONATHAN DELGADO Age: 49 years Sex: Male : 1970 Associated Diagnoses: None Author: ESTHELA SCHMITT MD-CAR Basic Information PCP: primary cardiology- Dr Sibley ([facility] for caths) Chief Complaint left foot infection History of Present Illness 49 yo male with history with CAD (PCI 2013), HTN, and DM presented to outside facility with complaints of redness of left foot, fever and chills. Pt transferred to [facility] for further evaluation and treatment. Pt states [...] list: All Problems Angina / SNOMED CT 595800262 / Confirmed Coronary artery disease / SNOMED CT 0630760664 / Confirmed Diabetes mellitus type II / SNOMED CT 80643185 / Confirmed GERD - Gastro-esophageal reflux disease / SNOMED CT 0577699569 / Confirmed History of obstructive sleep apnea / IMO 09593744 / Confirmed Hyperlipidemia / SNOMED CT 32152788 / Confirmed Hypertension / SNOMED CT 88016722 / Confirmed Impaired vision in both eyes / SNOMED CT 057715255 / Confirmed Migraine / SNOMED CT 10978841 / Confirmed Prostate infection / SNOMED CT 89769855 / Confirmed Stented coronary artery / SNOMED CT 0668505720 / Confirmed, Active Problems (11) Angina Coronary [...] family history is negative. Procedure history: Stent ([id number]). bilateral hernia repair. cardiac catheterization with coronary [...] (Current Encounter/Past 24 Hours) ProBNP 202 pg/mL DC 01/18/2020 19:18 Blood Gases (Current Encounter/Past 24 Hours) No Blood Gas Results Found (Past 24 Hours) Radiology Results (Last 48 hours) [id number] -- 01/18/2020 16:50 CR Chest 2 Vws [...]
--- OUTSIDE RECORDS SUMMARY | 2025-05-26 14:30 | XMS_ITS | Encounter Summary ---
Author Organization [employer] ([place], [place], [place], [place]) Address [address] [place] [address] Care Team Providers Care Mine Motor Operator Name Role Phone Unavailable Primary Care Provider Unavailabl e Encounter Details Date Type Department Care Team (Late st Contact Info) Description 01/19/2020 Transcribed Document [facility] [place] Medicine [facility] [place] [address] ProviderLora MD [address] [place] [place], [place] [id number] Social History Tobacco Use Types Packs/Day Years Used Date Smoking Tobacco: Never Assessed Sex and Gender Information Value Date Recorded Sex Assigned at Not on file Legal Sex Male 5:25 PM CDT Gender Identity Not on file Sexual Orientation Not on file documented as of this encounter Miscellaneous Notes * [employer]ner Conversion Note - Lora ProviderMD - 01/19/2020 12:32 PM OUTSIDE INSTALLER APPRENTICE Patient: JONATHAN DELGADO Age: 49 Years Sex: [...] Information Primary Care Physician - ADRIAN DELACRUZ DO-[facility] Attending Physician - PARESH CARRASCO MD-[facility] [...] pt quit smoking in 2000. Diagnostic Results elling REPORT LEFT FOOT SERIES HISTORY: Left foot [...] Signed DT/TM: 01/19/2020 9:37 am Transcribed by: BREN Lab Results Test Name Test Result Date/Time [...] 01/18/2020 18:32 EST Electronically signed by Stefanie, [facility] Conversion Ichthyologist Cerner at 03/17/2023 9:22 AM CDT documented in this encounter Plan of Treatment Not on file documented as of this encounter Visit Diagnoses Not on filedocumented in this encounter
--- OUTSIDE RECORDS SUMMARY | 2025-05-26 14:30 | XMS_ITS | Data Portability ---
Author Organization [place] - [place] [facility] [place] [facility] [place] [facility] AD[facility] Address [address] [place] [id number] Care Team Providers Care Corset Maker Name Role Phone QUYEN DELACRUZ Primary Care [...] pathogens panel, PCR, stool 2023 024 FIDEL Urban, [address], [address], [place], [address], 4 16:27:23 calprotect in, stool 2023 024 FIDEL Duggan, [address], [address], [place], [address], 4 07:16:57 O&P (ova & parasites) , stool 2023 024 FIDEL Urban, [address], [address], [place], [address], 4 07:16:59 fecal fat, qualitativ e, stool 2023 024 FIDEL Urban, [address], [address], [place], [address], 4 07:16:56 ESR (erythrocy te sedimentat ion rate), blood 2023 024 FIDEL Urban, [address], [address], [place], [address], 4 11:15:28 C-reactive protein, quantitati ve, serum or plasma 2023 024 [facility], [address], [address], [place], [address], 4 15:39:56 H pylori Ag, stool 2023 024 [facility], [address], [address], [place], [address], 4 08:28:00 pancreatic elastase, quant, stool 2023 024 [facility], [address], [address], [place], [address], 4 07:16:58 phosphatid ylethanol, QN, blood 2023 024 [facility], [address], [address], [place], [address], 4 11:15:23 HbA1c (hemoglobi n A1c), blood 2023 024 [facility], [address], [address], [place], [address], 4 11:15:27 amylase + lipase, serum 2023 024 [facility], [address], [address], [place], [address], 4 11:15:24 calcium, ionized, quant ISE, serum or plasma 2023 024 [facility], [address], [address], [place], [address], 4 11:15:29 lipid panel, serum 2023 024 [facility], [address], [address], [place], [address], 4 11:15:22 igg, subclass 4, quantitati ve, serum 2023 024 [facility], [address], [address], [place], [address], 4 11:15:30 7-alpha hydroxy-4- cholesten- 3-one, QN, serum or plasma 2023 024 [place] [facility], [address], [facility], [place], [address], 4 11:15:26 CMP, serum or plasma 2023 024 [place] [facility], [address], [facility] [address], [place], [address], 4 11:15:21 CMP, serum or plasma [address] [facility] (Lab Registration) , [address] [place] [address] [place], [address], 4 09:38:57 CBC w/ auto diff [address] [facility] (Lab Registration) , [address] [place] [address] [place], [address], 4 09:38:57 Referral None recorded. Procedures None recorded. Surgeries None recorded. Imaging CT, abdomen, w/ contrast 2023 024 [facility] (Central Scheduling), [address] [place] [address] [place], [address], 4 09:51:43 Medication Orders sucralfate 100 mg/mL oral suspension [email or web address] [facility]/Pharmacy #[id number], [address] [place], [address], 5 09:51:45 pantoprazo le 40 mg tablet,del ayed release 2023 024 [facility]/Pharmacy #3016, [address] [place], [address], 4 15:41:35 colestipol 1 gram tablet 2023 024 [facility]/Pharmacy #3016, [address] [place], [address], 4 11:07:18 gabapentin 300 mg capsule [email or web address] [facility]/Pharmacy #[id number], [address] [place], [address], 10:21:21 primidone 50 mg tablet 2023 024 [facility]/Pharmacy #3016, [address] [place], [address], 10:05:59 Patient TargetsNo targets recorded. Patient Instructions Encounter Date Encounter Id Patient Instructions Last Modified By Organization Details Last Modified Time 01/14/2025 [id number] f/u 8 weeks [email or web address] Not available 21:53:52 Reason for Referral None Reported. Results Created Date Observation Date Name Description Value Unit Range Abnormal Flag Note LastModifiedBy Organization Detail LastModifiedTime 06/25/20 24 06/25/2024 CBC W/ AUTO DIFF WBC 7.54 K/uL 4.5-11 .5 Not Available [facility] (Pre[facility]Op Clinic) [address] [place] [address] [place], [address], 06/25/2024 15:47:19 06/25/20 24 06/25/2024 CBC W/ AUTO DIFF RBC 5.37 M/uL 4.0-5. 4 Not Available [facility] (Pre-Op Clinic) [address] [place] [address] [place], [address], 06/25/2024 15:47:19 06/25/20 24 06/25/2024 CBC W/ AUTO DIFF HGB 14.9 g/dL 14.0-1 8.0 Not Available [facility] (Pre-Op Clinic) [address] [place] [address] [place], [address], 06/25/2024 15:47:19 06/25/20 24 06/25/2024 CBC W/ AUTO DIFF HCT 45.8 % 40-54 Not Available [facility] (Pre-Op Clinic) [address] [place] [address] [place], [address], 06/25/2024 15:47:19 06/25/20 24 06/25/2024 CBC W/ AUTO DIFF MCV 85.3 fL 80.0-1 00.0 Not Available [facility] (Pre-Op Clinic) [address] [facility] [place], [address], 06/25/2024 15:47:19 06/25/20 24 06/25/2024 CBC W/ AUTO DIFF MCH 27.7 pg 26.0-3 2.0 Not Available [facility] (Pre-Op Clinic) [address] [place] [address] [place], [address], 06/25/2024 15:47:19 06/25/20 24 06/25/2024 CBC W/ AUTO DIFF MCHC 32.5 g/dL 32.0-3 6.0 Not Available [facility] (Pre-Op Clinic) [address] [place] [address] [place], [address], 06/25/2024 15:47:19 06/25/20 24 06/25/2024 CBC W/ AUTO DIFF RDW 13.9 % 11.5-1 4.5 Not Available [facility] (Pre-Op Clinic) [address] [place] [address] [place], [address], 06/25/2024 15:47:19 06/25/20 24 06/25/2024 CBC W/ AUTO DIFF platelet count 166 K/uL 142-42 4 Not Available [facility] (Pre-Op Clinic) [address] [place] [address] [place], [address], 06/25/2024 15:47:19 06/25/20 24 06/25/2024 CBC W/ AUTO DIFF MPV 10.5 fL 6.8-10 .2 high Not Available [facility] (Pre-Op Clinic) [address] [place] [address] [place], [address], 06/25/2024 15:47:19 06/25/20 24 06/25/2024 CBC W/ AUTO DIFF neutrophil % 73.6 % 50-70 high Not Available [facility] (Pre-Op Clinic) [address] [place] [address] [place], [address], 06/25/2024 15:47:19 06/25/20 24 06/25/2024 CBC W/ AUTO DIFF lymphocyte % 14.6 % 18.0-4 2.0 low Not Available [facility] (Pre-Op Clinic) [address] [place] [address] [place], [address], 06/25/2024 15:47:19 06/25/20 24 06/25/2024 CBC W/ AUTO DIFF monocyte % 7.4 % 2.0-11 .0 Not Available [facility] (Pre-Op Clinic) [address] [place] [address] [place], [address], 06/25/2024 15:47:19 06/25/20 24 06/25/2024 CBC W/ AUTO DIFF eosinophil % 3.2 % 1.0-3. 0 high Not Available [facility] (Pre-Op Clinic) [address] [place] [address] [place], [address], 06/25/2024 15:47:19 06/25/20 24 06/25/2024 CBC W/ AUTO DIFF basophil % 0.8 % 0.0-2. 0 Not Available [facility] (Pre[facility]Op [facility]) [address] [place] [address] [place], [address], 06/25/2024 15:47:19 06/25/20 24 06/25/2024 CBC W/ AUTO DIFF immature granulocytes % 0.4 % 0.0-0. 8 Not Available [facility] (Pre-Op [facility]) [address] [place] [address] [place], [address], 06/25/2024 15:47:19 06/25/20 24 06/25/2024 CBC W/ AUTO DIFF nucleated red blood cells % 0.0 % Not Available [facility] (Pre-Op [facility]) [address] [place] [address] [place], [address], 06/25/2024 15:47:19 06/25/20 24 06/25/2024 CBC W/ AUTO DIFF neutrophil # 5.55 K/uL Not Available [facility] (Pre[facility]Op [facility]) [address] [place] [address] [place], [address], 06/25/2024 15:47:19 06/25/20 24 06/25/2024 CBC W/ AUTO DIFF lymphocyte # 1.10 K/uL Not Available [facility] (Pre[facility]Op [facility]) [address] [place] [address] [place], [address], 06/25/2024 15:47:19 06/25/20 24 06/25/2024 CBC W/ AUTO DIFF monocyte # 0.56 K/uL Not Available [facility] (Pre-Op Clinic) [address] [place] [address] [place], [address], 06/25/2024 15:47:19 06/25/20 24 06/25/2024 CBC W/ AUTO DIFF eosinophil # 0.24 K/uL Not Available [facility] (Pre-Op Clinic) [address] [place] [address] [place], [address], 06/25/2024 15:47:19 06/25/20 24 06/25/2024 CBC W/ AUTO DIFF basophil # 0.06 K/uL Not Available [facility] (Pre-Op Clinic) [address] [place] [address] [place], [address], 06/25/2024 15:47:19 06/25/20 24 06/25/2024 CBC W/ AUTO DIFF immature gramulocytes # 0.03 K/uL Not Available [facility] (Pre-Op Clinic) [address] [place] [address] [place], [address], 06/25/2024 15:47:19 06/25/20 24 06/25/2024 CBC W/ AUTO DIFF nucleated red blood cells # 0.00 k/uL Not Available [facility] (Pre-Op [facility]) [address] [place] [address] [place], [address], 06/25/2024 15:47:19 06/25/20 24 06/25/2024 CBC W/ AUTO DIFF manual differential NO Not Available [facility] (Pre[facility]Op [facility]) [address] [place] [address] [place], [address], 06/25/2024 15:47:19 06/25/20 24 06/25/2024 CBC W/ AUTO DIFF note Unles s other rey noted testi ng perfo rmed at: [facility] [address] [place] [address] Jose zamora MD Not Available [facility] (Pre-Op Clinic) [address] [place] [address] [place], [address], 06/25/2024 15:47:19 06/25/20 24 06/25/2024 COMP METAB OLIC PANEL sodium 141 mmol/ L 137-14 7 Not Available [facility] (Pre-Op Clinic) [address] [place] [address] [place], [address], 06/25/2024 17:12:06 06/25/20 24 06/25/2024 COMP METAB OLIC PANEL potassium 4.6 mmol/ L 3.5-5. 1 Not Available [facility] (Pre-Op Clinic) [address] [place] [address] [place], [address], 06/25/2024 17:12:06 06/25/20 24 06/25/2024 COMP METAB OLIC PANEL chloride 101 mmol/ L 98-110 Not Available [facility] (Pre-Op Clinic) [address] [place] [address] [place], [address], 06/25/2024 17:12:06 06/25/20 24 06/25/2024 COMP METAB OLIC PANEL carbon dioxide 23 mmol/ L 21-30 Not Available [facility] (Pre[facility]Op [facility]) [address] [facility] [place], [address], 06/25/2024 17:12:06 06/25/20 24 06/25/2024 COMP METAB OLIC PANEL anion gap 17 mmol/ L 6-14 high Not Available [facility] (Pre[facility]Op [facility]) [address] [facility] [place], [address], 06/25/2024 17:12:06 06/25/20 24 06/25/2024 COMP METAB OLIC PANEL glucose 312 mg/dL 70-115 high Not Available [facility] (Pre-Op [facility]) [address] [place] [address] [place], [address], 06/25/2024 17:12:06 06/25/20 24 06/25/2024 COMP METAB OLIC PANEL BUN 28 mg/dL 9-20 high Not Available [facility] (Pre[facility]Op [facility]) [address] [place] [address] [place], [address], 06/25/2024 17:12:06 06/25/20 24 06/25/2024 COMP METAB OLIC PANEL creatinine 1.1 mg/dL 0.5-1. 5 Not Available [facility] (Pre[facility]Op [facility]) [address] [place] [address] [place], [address], 06/25/2024 17:12:06 06/25/20 24 06/25/2024 COMP METAB OLIC PANEL BUN/creatini ne ratio 25 ratio 10-20 high Not Available [facility] (Pre[facility]Op [facility]) [address] [place] [address] [place], [address], 06/25/2024 17:12:06 06/25/20 24 06/25/2024 COMP METAB OLIC PANEL glom filtration rate 80 mL/mi n >60- Not Available [facility] (Pre-Op [facility]) [address] [place] [address] [place], [address], 06/25/2024 17:12:06 06/25/20 24 06/25/2024 COMP METAB OLIC PANEL osmolality (calculated) 310 mosmo l/kg 275-30 1 high OSMOL ALITY IS A CALCU LATIO N UTILI ZING THE SERUM /PLAS MA SODIU M, GLUCO SE AND UREA NITRO GEN (BUN) LEVEL S. FOR THE MOST ACCUR ATE RESUL T A MEASU RED SERUM OSMOL ALITY IS SUGGE STED. Not Available [facility] (Pre[facility]Op [facility]) [address] [facility] [place], [address], 06/25/2024 17:12:06 06/25/20 24 06/25/2024 COMP METAB OLIC PANEL total protein 6.9 g/dL 6.2-8. 2 Not Available [facility] (Pre-Op [facility]) [address] [place] [address] [place], [address], 06/25/2024 17:12:06 06/25/20 24 06/25/2024 COMP METAB OLIC PANEL albumin 4.6 g/dL 3.5-5. 0 Not Available [facility] (Pre-Op [facility]) [address] [place] [address] [place], [address], 06/25/2024 17:12:06 06/25/20 24 06/25/2024 COMP METAB OLIC PANEL calcium 9.5 mg/dL 8.5-10 .8 Not Available [facility] (Pre[facility]Op [facility]) [address] [place] [address] [place], [address], 06/25/2024 17:12:06 06/25/20 24 06/25/2024 COMP METAB OLIC PANEL bilirubin total 0.5 mg/dL 0.2-1. 3 Not Available [facility] (Pre-Op [facility]) [address] [place] [address] [place], [address], 06/25/2024 17:12:06 06/25/20 24 06/25/2024 COMP METAB OLIC PANEL AST (SGOT) 36 IU/L 17-59 Not Available [facility] (Pre-Op Clinic) [address] [place] [address] [place], [address], 06/25/2024 17:12:06 06/25/20 24 06/25/2024 COMP METAB OLIC PANEL ALT (SGPT) 27 IU/L 0-50 Pleas e note new refer ence inter farrah for ALT. Due to a recen t manuf actur er metho dolog y kiel hammond, the refer ence inter farrah for ALT is lower effec tive March 18, 2021. Not Available [facility] (Pre[facility]Op [facility]) [address] [place] [address] [place], [address], 06/25/2024 17:12:06 06/25/20 24 06/25/2024 COMP METAB OLIC PANEL alk phosphatase 107 IU/L 38-126 Not Available [facility] (Pre-Op Clinic) [address] [place] [address] [place], [address], 06/25/2024 17:12:06 06/25/20 24 06/25/2024 COMP METAB OLIC PANEL note Unles s other rey noted testi ng perfo rmed at: [facility] [address] [place] [address] Jose zamora MD Not Available [facility] (Pre-Op [facility]) [address] [place] [address] [place], [address], 06/25/2024 17:12:06 08/15/20 24 08/16/2024 COMP. METAB OLIC PANEL (14) glucose 114 mg/dL 70-99 above high normal Not Available [facility] ([facility]) [address] [place], [address], 09/04/2024 11:15:21 08/15/20 24 08/16/2024 COMP. METAB OLIC PANEL (14) BUN 30 mg/dL 6-24 above high normal Not Available [facility] ([facility]) [address] [place], [address], 09/04/2024 11:15:21 08/15/20 24 08/16/2024 COMP. METAB OLIC PANEL (14) creatinine 1.15 mg/dL 0.76-1 .27 normal Not Available [facility] ([facility]) [address] [place] [place], [address], 09/04/2024 11:15:21 08/15/20 24 08/16/2024 COMP. METAB OLIC PANEL (14) eGFR 76 mL/mi n/1.7 3 >59 normal Not Available [facility] ([facility]) [address] [facility] [place], [address], 09/04/2024 11:15:21 08/15/20 24 08/16/2024 COMP. METAB OLIC PANEL (14) BUN/creatini ne ratio 26 9-20 above high normal Not Available [facility] ([facility]) [address] [facility], [place], [address], 09/04/2024 11:15:21 08/15/20 24 08/16/2024 COMP. METAB OLIC PANEL (14) sodium 145 mmol/ L 134-14 4 above high normal Not Available [facility] ([facility]) [address] [place] [place], [address], 09/04/2024 11:15:21 08/15/20 24 08/16/2024 COMP. METAB OLIC PANEL (14) potassium 4.6 mmol/ L 3.5-5. 2 normal Not Available [facility] ([facility]) [address] [place] [place], [address], 09/04/2024 11:15:21 08/15/20 24 08/16/2024 COMP. METAB OLIC PANEL (14) chloride 105 mmol/ L 96-106 normal Not Available [facility] ([facility]) [address] [place] [place], [address], 09/04/2024 11:15:21 08/15/20 24 08/16/2024 COMP. METAB OLIC PANEL (14) carbon dioxide, total 24 mmol/ L 20-29 normal Not Available [facility] ([facility]) [address] [place], [address], 09/04/2024 11:15:21 08/15/20 24 08/16/2024 COMP. METAB OLIC PANEL (14) calcium 9.3 mg/dL 8.7-10 .2 normal Not Available [facility] ([facility]) [address] [place], [address], 09/04/2024 11:15:21 08/15/20 24 08/16/2024 COMP. METAB OLIC PANEL (14) protein, total 6.5 g/dL 6.0-8. 5 normal Not Available [facility] ([facility]) [address] [place], [address], 09/04/2024 11:15:21 08/15/20 24 08/16/2024 COMP. METAB OLIC PANEL (14) albumin 4.3 g/dL 3.8-4. 9 normal Not Available [facility] ([facility]) [address] [place], [address], 09/04/2024 11:15:21 08/15/20 24 08/16/2024 COMP. METAB OLIC PANEL (14) globulin, total 2.2 g/dL 1.5-4. 5 Not Available [facility] ([facility]) [address] [place], [address], 09/04/2024 11:15:21 08/15/20 24 08/16/2024 COMP. METAB OLIC PANEL (14) bilirubin, total 0.8 mg/dL 0.0-1. 2 normal Not Available [facility] ([facility]) [address] [place], [address], 09/04/2024 11:15:21 08/15/20 24 08/16/2024 COMP. METAB OLIC PANEL (14) alkaline phosphatase 136 IU/L 44-121 above high normal Not Available [facility] ([facility]) [address] [facility], [place], [address], 09/04/2024 11:15:21 08/15/20 24 08/16/2024 COMP. METAB OLIC PANEL (14) AST (SGOT) 25 IU/L 0-40 normal Not Available [facility] ([facility]) [address] [facility], [place], [address], 09/04/2024 11:15:21 08/15/20 24 08/16/2024 COMP. METAB OLIC PANEL (14) ALT (SGPT) 18 IU/L 0-44 normal Not Available [facility] ([facility]) [address] [place], [address], 09/04/2024 11:15:21 08/15/20 24 08/16/2024 LIPID PANEL cholesterol, total 132 mg/dL 100-19 9 normal Not Available [facility] ([facility]) [address] [place], [address], 09/04/2024 11:15:22 08/15/20 24 08/16/2024 LIPID PANEL triglyceride s 89 mg/dL 0-149 normal Not Available [facility] ([facility]) [address] [place], [address], 09/04/2024 11:15:22 08/15/20 24 08/16/2024 LIPID PANEL HDL cholesterol 49 mg/dL >39 normal Not Available [facility] ([facility]) [address] [place], [address], 09/04/2024 11:15:22 08/15/20 24 08/16/2024 LIPID PANEL VLDL cholesterol arturo 17 mg/dL 5-40 Not Available [facility] ([facility]) [address] [place], [address], 09/04/2024 11:15:22 08/15/20 24 08/16/2024 LIPID PANEL LDL chol calc ([facility] [place]) 66 mg/dL 0-99 Not Available [facility] ([facility]) [address] [facility], [place], [address], 09/04/2024 11:15:22 08/15/20 24 08/16/2024 LIPID PANEL LDL calc comment: NANNY/HOUSEHOLD MANAGER Not Available [facility] ([facility]) [address] [facility], [place], [address], 09/04/2024 11:15:22 08/15/20 24 08/20/2024 PHOSP HATID YLETH ANOL (PETH ) phosphatidyl ethanol NEGATI VE Not Available [facility] ([facility]) [address] [facility], [place], [address], 09/04/2024 11:15:23 08/15/20 24 08/20/2024 PHOSP HATID YLETH ANOL (PETH ) phosphatidyl ethanol (peth) NEGATI VE NG/mL Geovany zed compo und: PEth 16:0/ 18:1. 1-pal mitoy l-2-o leoyl -sn-g lycer o-3-p hosph oetha nol. Geovany sis perfo rmed by Inocencioi alysha Chrom atogr aphy with Tande m Mass Spect etta ry (LC/M S/MS) . Detec tion limit : 20 ng/mL PEth level s in exces s of 20 ng/mL are consi dered evide nce of moder ate to heavy gilbert ol consu felisaio n. Matt er, the Cente r for Subst ance Abuse Treat ment (CSAT ) advis es cauti on in inter preta tion and use of bioma rkers alone to asses s alcoh ol use. Resul ts shodimitri d be inter prete d in the raffy xt of all avail able clini arturo and behav ioral infor matсергей n. Refer ence: Subst ance Abuse and Menta l Healt h Servi tru Admin istra tion (2012 ). The Role of Bioma rkers in the Treat ment of Alcoh ol Use Disor dernoah , 2012 Chaim ion. Advis ory, Volum e 11, Issue 2. This test was devel oped and its perfo rmanc e becky cteri stics deter mined by [employer]. It has not been clear ed or appro caity by the Food and Drug Admin istra tion. Not Available [facility] ([facility]) [address] [facility], [place], [address], 09/04/2024 11:15:23 08/15/20 24 08/16/2024 CAMPOS+L IPASE amylase 113 U/L 31-110 above high normal Not Available [facility] ([facility]) [address] [facility], [place], [address], 09/04/2024 11:15:24 08/15/20 24 08/16/2024 CAMPOS+L IPASE lipase 24 U/L 13-78 normal Not Available [facility] ([facility]) [address] [place], [address], 09/04/2024 11:15:24 08/15/20 24 09/04/2024 7ALPH AC4 3scvemy4 46 NG/mL Refer ence Inter farrah: 1.8-5 7 ng/mL Serum 7Alph aC4 is a surro gate for stool bile acids . [place] jose guadalupe holley ntrat ions (> 57 [...] e becky cteri stics deter mined by [employer]. It has not been clear ed or appro caity by the Food and Drug Admin istra tion. Not Available [facility] [address] [facility], [place], [address], 09/04/2024 11:15:26 08/15/20 24 08/16/2024 HEMOG LOBIN A1C hemoglobin A1C 7.4 % 4.8-5. 6 above high normal Predi abete s: 5.7 - 6.4 Diabe siobhan: >6.4 Glyce gilma contr ol for adult s with diabe siobhan: <7.0 Not Available [facility] ([facility]) [address] [facility], [place], [address], 09/04/2024 11:15:27 08/15/20 24 08/16/2024 SEDIM ENTAT ION RATE- WESTE RGREN sedimentatio n rate-westerg lori 8 mm/HR 0-30 normal Not Available [facility] ([facility]) [address] [facility], [place], [address], 09/04/2024 11:15:28 08/15/20 24 08/17/2024 CALCI UM, IONIZ ED, SERUM calcium, ionized, serum 5.0 mg/dL 4.5-5. 6 Not Available [facility] ([facility]) [address] [facility], [place], [address], 09/04/2024 11:15:29 08/15/20 24 08/16/2024 IGG, SUBCL ASS 4 IgG, subclass 4 17 mg/dL 2-96 Not Available [facility] ([facility]) [address] [place], [address], 09/04/2024 11:15:30 08/15/20 24 08/16/2024 C-SOHA CTIVE PROTE IN, QUANT C-reactive protein, quant 32 mg/L 0-10 above high normal Not Available [facility] ([facility]) [address] [place], [address], 09/04/2024 11:15:31 08/15/20 24 08/16/2024 SPECI MEN STATU S REPOR T specimen status report TNP Test not perfo rmed. No stool speci men recei caity. TEST: 53620 5 Calpr otect in, Fecal 27523 6 Fecal Fat,Q l (Rfx- Qt) Stool 30331 4 H. pylor i Stool Ag, EIA 71807 3 Ova + Dennis ite Exam 06249 4 Pancr eatic Elast ase, Fecal Not Available [facility] ([facility]) [address] [place], [address], 09/04/2024 11:15:32 08/19/20 24 08/22/2024 GI PROFI LE, STOOL , PCR campylobacte r Not Detect ed not detect ed Not Available [facility] ([facility]) [address] [place], [address], 08/22/2024 16:14:29 08/19/20 24 08/22/2024 GI PROFI LE, STOOL , PCR C difficile toxin A/B Detect ed not detect ed abnormal Not Available [facility] ([facility]) [address] [place], [address], 08/22/2024 16:14:29 08/19/20 24 08/22/2024 GI PROFI LE, STOOL , PCR plesiomonas shigelloides Not Detect ed not detect ed Not Available [facility] ([facility]) [address] [place], [address], 08/22/2024 16:14:29 08/19/20 24 08/22/2024 GI PROFI LE, STOOL , PCR salmonella Not Detect ed not detect ed Not Available [facility] ([facility]) [address] [place], [address], 08/22/2024 16:14:29 08/19/20 24 08/22/2024 GI PROFI LE, STOOL , PCR vibrio Not Detect ed not detect ed Not Available [facility] ([facility]) [address] [place], [address], 08/22/2024 16:14:29 08/19/20 24 08/22/2024 GI PROFI LE, STOOL , PCR vibrio cholerae Not Detect ed not detect ed Not Available [facility] ([facility]) [address] [place], [address], 08/22/2024 16:14:29 08/19/20 24 08/22/2024 GI PROFI LE, STOOL , PCR yersinia enterocoliti ca Not Detect ed not detect ed Not Available [facility] ([facility]) [address] [place], [address], 08/22/2024 16:14:29 08/19/20 24 08/22/2024 GI PROFI LE, STOOL , PCR enteroaggreg ative E coli Not Detect ed not detect ed Not Available [facility] ([facility]) [address] [place], [address], 08/22/2024 16:14:29 08/19/20 24 08/22/2024 GI PROFI LE, STOOL , PCR enteropathog enic E coli Not Detect ed not detect ed Not Available [facility] ([facility]) [address] [place], [address], 08/22/2024 16:14:29 08/19/20 24 08/22/2024 GI PROFI LE, STOOL , PCR enterotoxige gabe E coli Not Detect ed not detect ed Not Available [facility] ([facility]) [address] [place], [address], 08/22/2024 16:14:29 08/19/20 24 08/22/2024 GI PROFI LE, STOOL , PCR shiga-toxin- producing E coli Not Detect ed not detect ed Not Available [facility] ([facility]) [address] [place], [address], 08/22/2024 16:14:29 08/19/20 24 08/22/2024 GI PROFI LE, STOOL , PCR E coli O157 Not applic able not detect ed Not Available [facility] ([facility]) [address] [place], [address], 08/22/2024 16:14:29 08/19/20 24 08/22/2024 GI PROFI LE, STOOL , PCR shigella/ent eroinvasive E coli Not Detect ed not detect ed Not Available [facility] ([facility]) [address] [place], [address], 08/22/2024 16:14:29 08/19/20 24 08/22/2024 GI PROFI LE, STOOL , PCR cryptosporid ium Not Detect ed not detect ed Not Available [facility] ([facility]) [address] [place], [address], 08/22/2024 16:14:29 08/19/20 24 08/22/2024 GI PROFI LE, STOOL , PCR cyclospora cayetanensis Not Detect ed not detect ed Not Available [facility] ([facility]) [address] [place], [address], 08/22/2024 16:14:29 08/19/20 24 08/22/2024 GI PROFI LE, STOOL , PCR entamoeba histolytica Not Detect ed not detect ed Not Available [facility] ([facility]) [address] [place], [address], 08/22/2024 16:14:29 08/19/20 24 08/22/2024 GI PROFI LE, STOOL , PCR giardia lamblia Not Detect ed not detect ed Not Available [facility] ([facility]) [address] [place], [address], 08/22/2024 16:14:29 08/19/20 24 08/22/2024 GI PROFI LE, STOOL , PCR adenovirus F 40/41 Not Detect ed not detect ed Not Available [facility] ([facility]) [address] [facility], [place], [address], 08/22/2024 16:14:29 08/19/20 24 08/22/2024 GI PROFI LE, STOOL , PCR astrovirus Not Detect ed not detect ed Not Available [facility] ([facility]) [address] [facility], [place], [address], 08/22/2024 16:14:29 08/19/20 24 08/22/2024 GI PROFI LE, STOOL , PCR norovirus GI/gii Detect ed not detect ed abnormal Not Available [facility] ([facility]) [address] [facility], [place], [address], 08/22/2024 16:14:29 08/19/20 24 08/22/2024 GI PROFI LE, STOOL , PCR rotavirus A Not Detect ed not detect ed Not Available [facility] ([facility]) [address] [facility], [place], [address], 08/22/2024 16:14:29 08/19/20 24 08/22/2024 GI PROFI LE, STOOL , PCR sapovirus Not Detect ed not detect ed Not Available [facility] ([facility]) [address] [facility], [place], [address], 08/22/2024 16:14:29 08/19/20 24 08/20/2024 JACQUELINE EN AUTHO RIZAT ION written authorizatio n Loulouen t Jacqueline en Autho rizat ion Recei caity. Autho rizat ion recei caity from ORIGI NAL ORDER 08-20 Logge d by Roseanne Lara tt Not Available [facility] ([facility]) [address] [place], [address], 08/22/2024 16:14:30 08/19/20 24 08/22/2024 FECAL FAT,Q L (RFX- QT) STOOL fats, neutral NORMAL Sandee l (<60 Dropl ets/H PF) Not Available [facility] ([facility]) [address] [facility], [place], [address], 08/29/2024 07:16:55 08/19/20 24 08/22/2024 FECAL FAT,Q L (RFX- QT) STOOL fats, total NORMAL Sandee l (<100 Dropl ets/H PF) Not Available [facility] ([facility]) [address] [facility], [place], [address], 08/29/2024 07:16:55 08/19/20 24 08/21/2024 CALPR OTECT IN, FECAL calprotectin , fecal 54 ug/g 0-120 Holley ntrat ion Inter preta tion Follo w-Up < 5 - 50 ug/g Sandee l None >50 -120 ug/g Borde rline Re-ev aluat e in 4-6 weeks >120 ug/g Abnor mal Repea t as clini roni indic ated Not Available [facility] ([facility]) [address] [place], [address], 08/29/2024 07:16:57 08/19/20 24 08/21/2024 PANCR EATIC ELAST ASE, FECAL pancreatic elastase, fecal >800 ug_el ast./ g >200 Sever e Pancr eatic Insuf ficie ncy: <100 Moder ate Pancr eatic Insuf ficie ncy: 100 - 200 Sandee l: >200 Not Available [facility] ([facility]) [address] [facility], [place], [address], 08/29/2024 07:16:58 08/19/20 24 08/28/2024 OVA + DENNIS ITE EXAM ova + parasite exam FINAL REPORT These resul ts were obtai hanh using wet prepa ratio n(s) and trich oliver stain ed smear . This test does not inclu de testi ng for Crypt ospor idium parvu m, Cyclo spora , or Micro spori tracy. Not Available [facility] ([facility]) [address] [place], [address], 08/29/2024 07:16:59 08/19/2008/28/2024 OVA + DENNIS ITE EXAM result 1 COMMEN T No ova, cysts , or dennis ites seen. One negat farnaz speci men does not rule out the possi bilit y of a dennis itic infec tion. Not Available [facility] ([facility]) [address], [place], [address], 08/29/2024 07:16:59 09/25/2009/25/2024 GASTR OINTE ELISABET L PANEL ,STL PCR campylobacte r NOT DETECT ED not detect ed CAMPY LOBAC TER AND CRYPT OSPOR IDIUM RESUL TS WILL BE CONFI RMED BEFOR E FINAL RESUL TS REPOR JOSE GUADALUPE. Not Available [facility] [address] [facility], [place], [address], 09/25/2024 15:27:36 09/25/20 24 09/25/2024 GASTR OINTE ELISABET L PANEL ,STL PCR C difficile toxin A/B DETECT ED not detect ed delta Not Available [facility] ([facility]) [address] [facility], [place], [address], 09/25/2024 15:27:36 09/25/20 24 09/25/2024 GASTR OINTE ELISABET L PANEL ,STL PCR plesiomonas shigelloides NOT DETECT ED not detect ed Not Available [facility] ([facility]) [address] [facility], [place], [address], 09/25/2024 15:27:36 09/25/20 24 09/25/2024 GASTR OINTE ELISABET L PANEL ,STL PCR salmonella NOT DETECT ED not detect ed Not Available [facility] ([facility]) [address] [facility], [place], [address], 09/25/2024 15:27:36 09/25/20 24 09/25/2024 GASTR OINTE ELISABET L PANEL ,STL PCR vibrio NOT DETECT ED not detect ed Not Available [facility] ([facility]) [address] [facility], [place], [address], 09/25/2024 15:27:36 09/25/20 24 09/25/2024 GASTR OINTE ELISABET L PANEL ,STL PCR vibrio cholerae NOT DETECT ED not detect ed Not Available [facility]) [address] [facility], [place], [address], 09/25/2024 15:27:36 09/25/20 24 09/25/2024 GASTR OINTE ELISAEBT L PANEL ,STL PCR yersinia enterocoliti ca NOT DETECT ED not detect ed Not Available [facility] ([facility]) [address] [facility], [place], [address], 09/25/2024 15:27:36 09/25/20 24 09/25/2024 GASTR OINTE ELISABET L PANEL ,STL PCR enteroaggreg ative E coli NOT DETECT ED not detect ed Not Available [facility]) [address] [facility], [place], [address], 09/25/2024 15:27:36 09/25/20 24 09/25/2024 GASTR OINTE ELISABET L PANEL ,STL PCR enteropathog enic E coli NOT DETECT ED not detect ed Not Available [facility] ([facility]) [address] [facility], [place], [address], 09/25/2024 15:27:36 09/25/20 24 09/25/2024 GASTR OINTE ELISABET L PANEL ,STL PCR enterotoxige gabe E coli lt/st NOT DETECT ED not detect ed Not Available [facility]) [address] [facility], [place], [address], 09/25/2024 15:27:36 09/25/20 24 09/25/2024 GASTR OINTE ELISABET L PANEL ,STL PCR shiga-toxin- producing E coli NOT DETECT ED not detect ed Not Available [facility]) [address] [facility], [place], [address], 09/25/2024 15:27:36 09/25/20 24 09/25/2024 GASTR OINTE ELISABET L PANEL ,STL PCR E coli O157 N/A not detect ed Not Available [facility]) [address] [facility], [place], [address], 09/25/2024 15:27:36 09/25/20 24 09/25/2024 GASTR OINTE ELISABET L PANEL ,STL PCR shigella/ent eroinvasive E coli NOT DETECT ED not detect ed Not Available [facility]) [address] [facility], [place], [address], 09/25/2024 15:27:36 09/25/20 24 09/25/2024 GASTR OINTE ELISABET L PANEL ,STL PCR cryptosporid ium NOT DETECT ED not detect ed Not Available [facility]) [address] [facility], [place], [address], 09/25/2024 15:27:36 09/25/20 24 09/25/2024 GASTR OINTE ELISABET L PANEL ,STL PCR cyclospora cayetanensis NOT DETECT ED not detect ed Not Available [facility]) [address] [place], [address], 09/25/2024 15:27:36 09/25/20 24 09/25/2024 GASTR OINTE ELISABET L PANEL ,STL PCR entamoeba histolytica NOT DETECT ED not detect ed Not Available [facility]) [address] [facility], [place], [address], 09/25/2024 15:27:36 09/25/20 24 09/25/2024 GASTR OINTE ELISABET L PANEL ,STL PCR giardia lamblia NOT DETECT ED not detect ed Not Available [facility]) [address] [facility], [place], [address], 09/25/2024 15:27:36 09/25/20 24 09/25/2024 GASTR OINTE ELISABET L PANEL ,STL PCR adenovirus F 40/41 NOT DETECT ED not detect ed Not Available [facility]) [address] [facility], [place], [address], 09/25/2024 15:27:36 09/25/20 24 09/25/2024 GASTR OINTE ELISABET L PANEL ,STL PCR astrovirus NOT DETECT ED not detect ed Not Available [facility]) [address] [facility], [place], [address], 09/25/2024 15:27:36 09/25/20 24 09/25/2024 GASTR OINTE ELISABET L PANEL ,STL PCR norovirus GI/gii NOT DETECT ED not detect ed Not Available [facility] [address] [facility], [place], [address], 09/25/2024 15:27:36 09/25/20 24 09/25/2024 GASTR OINTE ELISABET L PANEL ,STL PCR rotavirus A NOT DETECT ED not detect ed Not Available [facility]) [address] [facility], [place], [address], 09/25/2024 15:27:36 09/25/20 24 09/25/2024 GASTR OINTE [...] stool sampl es are not recom jimbo wong Jhon eous resul ts may occur from [...] rever se trans cript ase Not Available [facility] [address] [facility], [place], [address], 09/25/2024 15:27:36 09/25/20 24 09/25/2024 C DIFFI CILE TOX/A G SCREE N specimen consistency LIQUID STOOL Not Available [facility] [address] , [place], [address], 09/25/2024 15:28:43 09/25/20 24 09/25/2024 C DIFFI [...] cytes or PCR testi ng. Not Available [facility]) [address], [place], [address], 09/25/2024 15:28:43 09/25/20 24 09/25/2024 C DIFFI CILE TOX/A G SCREE N C.difficile antigen NEGATI VE negati ve Not Available [facility] ([facility]) [address], [place], [address], 09/25/2024 15:28:43 09/25/20 24 09/25/2024 C DIFFI CILE TOX/A G SCREE N C diff internal control PASS PASS Not Available [facility] ([facility]) [address], [place], [address], 09/25/2024 15:28:43 09/25/20 24 10/03/2024 PATHO LOGY SPECI MEN pathology specimen SEE JEROME Castillo RPT Not Available [facility]) [address], [place], [address], 10/03/2024 09:18:07 Result Notes None recorded. Problems Name Problem SNOMED Code Status Onset Date Resolution Date Notes Provider Name and Address Organization Details Recorded Time Allergic rhinitis 61863244 Active 2016 Allergic rhinitis Not Available [facility] 3 08:18:40 Dyspnea 584488336 Active 2016 Not Available [facility] 3 08:18:40 Cough 11074673 Active 2016 Cough Not Available [facility] 3 08:18:40 Chronic constipat ion with overflow 83612385 Active 2016 Overflow diarrhea Not Available [facility] 3 08:18:40 Cervical spondylos is without myelopath y 209217247 Active 2020 Not Available [facility] 3 08:18:40 Heartburn 60228123 Active 2017 Heartburn Not Available [facility] 3 08:18:40 Restricti ve lung disease 89728691 Active 2016 Not Available [facility] 3 08:18:40 Cerebrova scular accident 499822383 Active 2014 Stroke Not Available [facility] 3 08:18:40 Finding reported by subject or history provider 954650393 Active 2014 Not Available [facility] 3 08:18:40 Paresthes ia 08456889 Active 2020 Not Available [facility] 3 08:18:40 Abdominal pain 49558102 Active 2017 Abdominal pain Not Available [facility] 3 08:18:40 Gastroeso phageal reflux disease 142452995 Active 2016 Gastroeso phageal reflux disease Not Available [facility] 3 08:18:40 Irritable bowel syndrome 43509317 Active 2017 Irritable bowel syndrome Not Available [facility] 3 08:18:40 Asthma 814022214 Active 2016 Asthma Not Available [facility] 3 08:18:40 Diarrhea 35781650 Active 2016 Diarrhea Not Available [facility] 3 08:18:40 Constipat ion 45487266 Active 2016 Constipat ion Not Available [facility] 3 08:18:40 Neuralgia 14744412 Active [address], [place], [address] , [place] - [facility] & [place] 3 08:49:54 Left foot drop 01642774107 9105 Active [address], [place], [address] , [place] - [facility] [place] & [place] 3 08:49:58 Forgetful 23617356 Active [address], [place], [address] , [place] - [facility] & [place] 3 11:24:50 Irritable bowel syndrome with diarrhea 213198266 Active 2022 Earlene Kamara NP [address], [address], [place], [address] , [place] [facility] [place] & [place] 3 15:53:25 Essential tremor 243965081 Active [address], [place], [address] , [place] [facility] [place] & [place] 4 09:58:42 Problem Notes None recorded. Procedures Surgical History Date Name Laterality Status Provider Name and Address Organization Details Recorded Time 01/14/20 25 lumbar spinal fusion completed Khushi Kapoor [place] [facility] [place] & [place] 01/14/2025 13:17:57 08/15/20 24 Procedure Note completed Khushi Mariedwell [place] [facility] [place] [facility] [place] 08/15/2024 11:59:29 11/27/19 24 Cardiovascular Surgery completed Prema ERAZO - [facility] - [place] & [place] 06/25/2024 13:58:00 07/07/20 23 placement of stent in coronary artery completed Earlene Kamara NP [address], [address], [place], [address], [place] [facility] [place] & [place] 07/13/2023 16:02:11 11/27/19 23 Cardiovascular Surgery completed Prema ERAZO - [facility] - [place] & [place] 06/25/2024 13:58:00 06/27/20 17 colonoscopy completed DO [address], [place], [address], [place] [facility] & [place] 01/23/2023 08:43:26 08/27/20 16 operation on lumbar spine completed DO [address], [place], [address], [place] [facility] & [place] 01/23/2023 08:44:23 09/27/20 14 herniotomy of bilateral inguinal hernias completed DO [address], [place], [address], [place] [facility] [place] & [place] 01/23/2023 08:42:59 02/26/20 14 placement of stent in coronary artery completed Geogrina Marshall DO [address], [place], [address], [place] [facility] [place] & [place] 01/23/2023 08:43:13 11/27/19 14 Back Surgery completed Prema Diallos [place] [facility] & [place] 06/25/2024 13:43:45 11/27/19 13 Cholecystectomy completed Georgina Marshall DO [address], [place], [address], [place] [facility] [place] & [place] 01/23/2023 08:42:23 11/27/19 12 arthroplasty of knee completed Georgina Marshall DO [address], [place], [address], [place] [facility] & [place] 01/23/2023 08:42:13 11/27/19 10 Elbow arthroscopy completed DO Kannan [address], [place], [address], [place] [facility] [place] & [place] 01/23/2023 08:42:40 EGD/Endoscopy completed Earlene Kamara NP [address] [place] [address], [address], [place], [address], [place] [facility] & [place] 07/13/2023 16:02:36 Imaging Results None recorded. Procedure Notes None recorded. Medical Equipment None Reported. Allergies Allergen ID Allergen Name Allergen Category Reaction Reaction Severity Criticality Documentation Date Start Date Code Code System Note Provider Name and Address Organization Details Recorded Time 18708 Penicilli n Not available Not available Not available Not available 08/29/2022 00247 RxNorm React ion: Unkno wn, sever ity: Unkno wn Not Available [facility] 02:56:23 65763 Product containin g penicilli n (product) medicatio n Not available Not available Not available 01/23/2023 36319 8001 SNOMED Agnes jansen, [place] - [facility] & [place] 10:57:42 Medications Name Sig [...] Available Not Available Not Available Dexcom G6 Certified Art Therapist 1 DEVICE CONTINUOU S. 01/23 completed Not [...] Updated DateTime 5 187.96 cm 30.2 kg/m2 840975. 57 g 98 % 98 % 98.1 [degF] 69 /min 72 /min 107 mm[Hg] 65 mm[Hg] [facility] [place] 5 13:17:21 Date Recorded Body height Body mass index (BMI) Body weight Systolic blood pressure Diastolic blood pressure Provider Name and Address Organization Details Last Updated DateTime 03/01/2024 187.96 cm 29.9 kg/m2 453874.0 2 g 128 mm[Hg] 78 mm[Hg] Agnes Holman [facility] & [place] 4 09:40:37 Date Recorded Body height Body mass index (BMI) Body weight Body temperature Oxygen saturation Oxygen saturation in Arterial blood by Pulse oximetry Heart rate Provider Name and Address Organization Details Last Updated DateTime 4 187.96 cm 29.9 kg/m2 855116. 02 g 97.4 [degF] 97 % 97 % 76 /min Prema Dominguez [facility] & [place] 4 13:57:45 Date Recorded Body height Body mass index (BMI) Body weight Body temperature Oxygen saturation Oxygen saturation in Arterial blood by Pulse oximetry Heart rate Heart rate Systolic blood pressure Diastolic blood pressure Provider Name and Address Organization Details Last Updated DateTime 4 187.96 cm 31.3 kg/m2 174928. 38 g 98.4 [degF] 99 % 99 % 63 /min 68 /min 181 mm[Hg] 97 mm[Hg] Ralph Maya [facility] & [place] 4 10:20:26 Date Recorded Body height Body mass index (BMI) Body weight Heart rate Heart rate Oxygen saturation Oxygen saturation in Arterial blood by Pulse oximetry Body temperature Systolic blood pressure Diastolic blood pressure Provider Name and Address Organization Details Last Updated DateTime 4 187.96 cm 31.2 kg/m2 160267. 02 g 64 /min 66 /min 97 % 97 % 97.9 [degF] 105 mm[Hg] 66 mm[Hg] Khushi Kapoor [facility] & [place] 4 14:07:03 Social History Question Answer Notes LastModified by Organizat ion Details LastModified Time Tobacco Smoking Status Former Smoker Not Available [facility] 01/12/2023 08:18:40 Do You Have An Advance Directive? No [email or web address] Information not available 06/25/2024 Are You Blind Or Do You Have Difficulty Seeing? No [email or web address] Information not available 06/25/2024 What Is Your Level Of Caffeine Consumption? Occasional 2 Cups Coffee [email or web address] Information not available 01/23/2023 When Did You Quit Smoking? 16+yearssincel [email or web address] Information not available 01/23/2023 What Was The Date Of Your Most Recent Tobacco Screening? 07/09/2023 [email or web address] Information not available 06/25/2024 Do You Have Any Pets? No Information not available 01/23/2023 What Is Your Relationship Status? Lives With Spouse, House [email or web address] Information not available 01/23/2023 Are You Sexually Active? Yes Information not available 01/23/2023 At What Age Did You Start Smoking Tobacco? 17 Information not available 01/23/2023 Are You Currently In School? No Some College Information not available 01/23/2023 Sex: Unknown Functional Status Question Answer Note LastModified by Organizat ion Details LastModified Time Do you use any illicit or recreational drugs? No [email or web address] Information not available 01/23/2023 Do you or have you ever used any other forms of tobacco or nicotine? No [email or web address] Information not available 08/15/2024 What is your level of alcohol consumption? Occasional [email or web address] Information not available 06/25/2024 Do you or have you ever used smokeless tobacco? 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 No drives Information not available 01/23/2023 Are you able to care for yourself? Yes Information not available 01/23/2023 What is your exercise level? Occasional [email or web address] Information not available 06/25/2024 Mental Status Question Answer Note LastModified by Organization D etails LastModified Time Do you feel stressed (tense, restless, nervous, or anxious, or unable to sleep at night)? [id number] [email or web address] Information not available 06/25/2024 Family History Relationship Description Onset Age of this Age Resolved Age Notes LastModified by Organization Details LastModified Time Mother Diabetes mellitus [email or web address] Not available 2024 12:55:05 Mother Hypertensive disorder [email or web address] Not available 2022 08:40:08 Mother Kidney disease [email or web address] Not available 2022 08:40:17 Mother Headache [email or web address] Not availabl e 01/23/2023 08:40:26 Father Diabetes [...] Problems Y TIA Y High Cholesterol Y Heart Disease Y Spine Problems Y Psychiatric/Mental Health Condition Y Headaches Y Hypertension Y Obstructive Sleep Apnea Y Neurological Problems Y Past Encounters Encounter ID Performer Location Encounter Start Date Encounter Closed Date Diagnosis/Indication Diagnosis SNOMED-CT Code Diagnosis ICD10 Code Diagnosis Note [id number] Georgina Marshall DO [facility] Neurology [address] [facility],[address] [place] [address] 01/23/2023 10:25:40 01/23/2023 11:28:47 Cervical spondylosis without myelopathy 158920060 M47.812 Chronic condition that is stable. Continue with gabapentin at the current dose. He does not need refills today. Neuralgia 11307001 M79.2 Chronic condition that is stable. Continue with gabapentin at the current dose. Left foot drop 209697526 1 54822 M21.372 Chronic condition that is stable. No current therapy or equipment needs. Forgetful 99827043 R41.3 New issue with increased lack of focus and concentrat ion. He has poor sleep which I suspect is a major factor. Will check labs today. If normal consider increasing his gabapentin dose to 800mg qhs to see if that will afford him a more restful night. [id number] Earlene Kamara NP [facility] [address] [address] 07/12/2023 14:21:48 07/17/2023 12:16:12 Heartburn [id number] R12 Occasional symptoms at this time. Diarrhea 35919084 R19.7 Several month history of worsening diarrhea [...] history, consider colonoscop y in 1 year. [id number] DO [facility] [address] [facility],[address] [place] [address] 03/01/2024 09:36:06 03/01/2024 10:04:03 Cervical spondylosis without myelopathy [id number] M47.812 Chronic condition that is stable. Continue with gabapentin at the current dose. He does need refills today. Neuralgia 57902000 M79.2 Chronic condition that is stable. Continue with gabapentin at the current dose. He does need refills today. Left foot drop [id number] 1 40608 M21.372 Chronic condition that is stable. No current therapy or equipment needs. Essential tremor 2978636 09 G25.0 New tremor in the last year. 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 He does find this socially embarrassi ng. We discussed primidone and propranolo l options. He was most comfortabl e with primidone. He is educated on how to take this medication and potential side effects. Will start a low dose and he will call with an update. [id number] LIVE [facility] [address] [place] [address] [address] GUNN [address] [place] [address] 06/25/2024 13:01:20 06/25/2024 14:24:50 Pancreatitis 06167532 K85.90 patient developed acute left flank pain about a week after he had a heart stent placed in April. He was seen in the ED and [place] at which time he had elevated lipase [...] develop fever or worsening abdominal pain, n/v. 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 History of cholecystectomy 887491133 Z90.49 Screening for malignant neoplasm of colon 761952606 Z12.11 [id number] QUIANA MART Therapeuvic ic Intervent ions at [address] [place] [address] 09/10/2024 12:22:30 09/10/2024 15:49:54 [id number] AMINTA BARRETT NP [facility] [address] [address] 11/05/2024 13:48:49 11/05/2024 15:15:24 Chronic pancreatitis 227248969 K86.1 Diarrhea 42379595 R19.7 Bile acid malabsorption syndrome 06360166 E78.70 History of cholecystectomy 302184518 Z90.49 Screening for malignant neoplasm of colon 469921113 Z12.11 Nausea 181646332 R11.0 History of Intestinal infection caused by Clostridioides difficile 4026179229 63303 Z86.19 Reactive gastropathy 399 695351 K31.9 [id number] AMINTA BARRETT NP [facility] [address] [facility] [address] [facility] [place] [address] 01/14/2025 12:51:20 01/14/2025 14:01:20 Chronic pancreatitis 428553582 K86.1 Diarrhea 13379604 R19.7 Bile acid malabsorption syndrome 46520742 E78.70 History of cholecystectomy 930570157 Z90.49 Screening for malignant neoplasm of colon 169748691 Z12.11 Nausea 328615824 R11.0 History of Intestinal infection caused by Clostridioides difficile 7663409501 13434 Z86.19 Reactive gastropathy 399 922265 K31.9 Epigastric pain 03181307 R10.13 Health Concerns Section Related Observation LastModified by Organization Detai ls LastModified Time None Recorded Concern Status LastModified by Organization Details LastModified Time None Recorded Advance Directives Directive N: Payers Insurance Date Sequence Insurance Name Policy Number Policy Cohen Covered Member ID Cohen Member ID Guarantor Name 04/04/2025 1 [place]MEDICAID REPLACEMENT - HMO) Jonathan Delgado [id number] Jonathan Delgado 03/04/2024 2 [place] [id number] Jonathan Delgado [id number] Jonathan Delgado 06/25/2024 1 [employer] ([place]) [id number] Jonathan Delgado [id number] Jonathan Delgado 11/05/2024 1 [place] [id number] Jonathan Delgado [id number] Jonathan eDlgado 01/14/2025 1 [place] [id number] Jonathan Delgado [id number] Jonathan Delgado Notes Date Note Type Note [...] long. No racing thoughts reported. Georgina Marshall, [address] [facility], [place], [address], [place] - [place] 03/01/2024 10:22:18 06/25/2024 text/html This [...] try to obtain records from. Aure Soliman [address], [address], [place], [address], [place] 06/26/2024 12:50:04 08/15/2024 text/html CURRENT (08/15/20 24 VBam Barrett):Mr. Delgado is a 53 year old man referred to use by Quyen Elizabeth APRN for acute pancreatitis. Patient developed acute left flank pain after cardiac catheterization and was seen in the ED at [facility]. CT scan reportedly showed acute pancreatitis [...] beverages and improve his diet. AMINTA BARRETT, NANNY/HOUSEHOLD MANAGER [address], [place], [address], [place] 08/15/2024 14:51:19 11/05/2024 text/html PREVIOUS ( 024 Margarita Barrett):Mr. Delgado is a 53 year old man referred to use by Quyen Elizabeth APRN for acute pancreatitis. Patient developed acute left flank pain after cardiac catheterization and was seen in the ED at [facility]. CT scan reportedly showed acute pancreatitis [...] continuous nausea. He is not on acid edge stripper. Denies any weight loss, fevers or bloody stool. AMINTA BARRETT, NANNY/HOUSEHOLD MANAGER [address] [facility], [place], [address], [place] 11/05/2024 15:41:48 01/14/2025 text/html PREVIOUS ( 024 Margarita Barrett):Mr. Delgado is a 53 year old man referred to use by Quyen Elizabeth APRN for acute pancreatitis. Patient developed acute left flank pain after cardiac catheterization and was seen in the ED at [facility]. CT scan reportedly showed acute pancreatitis [...] continuous nausea. He is not on acid edge stripper. Denies any weight loss, fevers or bloody [...] Denies any new GI symptoms. AMINTA BARRETT, NANNY/HOUSEHOLD MANAGER [address], [place], [address], [facility] - [place] - [place] 01/14/2025 21:54:23
--- OUTSIDE RECORDS SUMMARY | 2025-05-26 14:30 | XMS_ITS | Encounter Summary ---
Author Organization [employer] ([place], [place], [place], [place]) Address [address] [place] [address] Care Team Providers Care Bulk Cooler Installer Name Role Phone Unavailable Primary Care Provider Unavailabl e Encounter Details Date Type Department Care Team (Late st Contact Info) Description 01/19/2020 Transcribed Document [facility] [place] [address] [place] [address] ProviderLora MD [address] [place], [place] [id number] Social History Tobacco Use Types Packs/Day Years Used Date Smoking Tobacco: Never Assessed Sex and Gender Information Value Date Recorded Sex Assigned at Not on file Legal Sex Male 5:25 PM CDT Gender Identity Not on file Sexual Orientation Not on file documented as of this encounter Miscellaneous Notes * Cerner Conversion Note - Historical ProviderMD - 01/19/2020 3:14 PM STATE FARM AGENT TEAM MEMBER UM Authorization Entered On: 01/19/2020 15:19 EST Performed On: 01/19/2020 15:14 EST by HORACIO REGALADO Rn-Utilization Review Primary Insurance Authorization Authorization and Policy Numbers : Insurance 1 Health [facility] Policy Number: [id number] Authorization Number: Insurance Primary Name : [facility] Policy Number: [id number] Authorization Status-Primary : Awaiting callback Reference Number-Primary : [id number] Authorized Service Begin Date-Primary : 01/18/2020 EST Authorization Comments-Primary : Submitted Inpt Auth on Availity with clinicals attached. Historical Authorization Comments-Primary : No Authorization Comments Found HORACIO REGALADO Rn-Utilization Review - 01/19/2020 15:14 EST documented in this encounter Plan of Treatment Not on file documented as of this encounter Visit Diagnoses Not on filedocumented in this encounter
--- OUTSIDE RECORDS SUMMARY | 2025-05-26 14:30 | XMS_ITS | Encounter Summary ---
Author Organization [employer] ([place], [place], [place], [place]) Address [address] [place] [address] Care Team Providers Care Liner Assembler Name Role Phone Unavailable Primary Care Provider Unavailabl e Encounter Details Date Type Department Care Team (Late st Contact Info) Description 01/19/2020 Transcribed Document [facility] Family Medicine [address] [place] [address] ProviderLora MD [address] [place], [place] [id number] Social History Tobacco Use Types Packs/Day Years Used Date Smoking Tobacco: Never Assessed Sex and Gender Information Value Date Recorded Sex Assigned at Not on file Legal Sex Male 5:25 PM CDT Gender Identity Not on file Sexual Orientation Not on file documented as of this encounter Miscellaneous Notes * Cerner Conversion Note - Historical ProviderMD - 01/19/2020 2:00 AM CHIEF COOK Trimmer Buffing Wheel Details Entered On: 01/19/2020 3:19 EST Performed [...]
--- OUTSIDE RECORDS SUMMARY | 2025-05-26 14:30 | XMS_ITS | Encounter Summary ---
Author Organization [employer] ([place], [place], [place], [place]) Address [address] [place] [address] Care Team Providers Care Benefits Manager Name Role Phone Unavailable Primary Care Provider Unavailabl e Encounter Details Date Type Department Care Team (Late st Contact Info) Description 01/19/2020 Transcribed Document [facility] Radiology [address] [place] [address] Paresh Bravo MD [address] [place] [address] Social History Tobacco Use Types Packs/Day [...] History of obstructive sleep apnea / IMO [id number] / Confirmed, Active Problems (11) Angina Coronary [...] 1.10 \ Radiology Results (Last 48 hours) [id number] -- 01/18/2020 16:50 CR Chest 2 Vws [...]
--- OUTSIDE RECORDS SUMMARY | 2025-05-26 14:30 | XMS_ITS | Encounter Summary ---
Author Organization [employer] ([place], [place], [place], [place]) Address [address] [place] [address] Care Team Providers Care Switcher Name Role Phone Unavailable Primary Care Provider Unavailabl e Encounter Details Date Type Department Care Team (Late st Contact Info) Description 01/20/2020 Transcribed Document [facility] [place] [facility] [place] [address] ProviderLora MD [address] [place] [address] Social History Tobacco Use Types Packs/Day Years Used Date Smoking Tobacco: Never Assessed Sex and Gender Information Value Date Recorded Sex Assigned at Not on file Legal Sex Male 5:25 PM CDT Gender Identity Not on file Sexual Orientation Not on file documented as of this encounter Miscellaneous Notes * Cerner Conversion Note - Lora ProviderMD - 01/20/2020 12:17 PM SCALE EXPERT Financial Analysis Manager Inpatient Document Entered On: 01/20/2020 15:26 EST [...]
--- OUTSIDE RECORDS SUMMARY | 2025-05-26 14:30 | XMS_ITS | Encounter Summary ---
Author Organization [employer] ([place], [place], [place], [place]) Address [address] [place] [address] Care Team Providers Care Lode Miner Name Role Phone Unavailable Primary Care Provider Unavailabl e Encounter Details Date Type Department Care Team (Late st Contact Info) Description 01/20/2020 Transcribed Document [facility] [place] [facility] [place] [address] ProviderLora MD [address] [place], [place] [address] Social History Tobacco Use Types Packs/Day Years Used Date Smoking Tobacco: Never Assessed Sex and Gender Information Value Date Recorded Sex Assigned at Not on file Legal Sex Male 5:25 PM CDT Gender Identity Not on file Sexual Orientation Not on file documented as of this encounter Miscellaneous Notes * Cerner Conversion Note - Historical ProviderMD - 01/20/2020 11:52 AM REGIONAL SALES EXECUTIVE Patient: JONATHAN DELGADO Age: 49 years Sex: [...] hyperlipidemia and hypertension. He originally presented to [facility] with complaints of left foot pain. States that this pain began about Monday is when he first noticed. He has his took his foot and discovered that there was a wound on the sole of his left foot on the ball of the foot. He does not recall any trauma to the foot. Family stated that due to a disagreement with the electronic prepress system operator that was on duty they requested transfer from that facility to here. Labs at outside hospital showed patient was without leukocytosis and was generally unremarkable. Cultures were obtained and patient was given 2 g IV Rocephin. He did receive a foot x-ray while at [facility] but the report did not accopany [...] 23:27) 90 (JAN 19 14:45) SpO2 94 (B 03:22) L 92 (JAN 19 23:27) 94 [...] Labs:Labs (Last four charted values) WBC 6.5 (B ) 8.0 (B ) 8.4 (FEB ) HB 13.9 (B ) L 13.0 (B 23) 13.5 (FEB ) HCT 42.9 (B 24) 40.1 (FEB 23) 41.8 (FEB 22) Plt 190 (FEB 24) L 162 (B ) L 157 (FEB 22) Na 139 (B 24) 137 (B ) 137 (B ) K 4.2 (JAN 20) 4.3 (B ) 3.9 (FEB 22) Cl 107 (FEB 24) 106 (FEB 23) 105 (FEB 22) CO2 29 (B 24) 29 (FEB 23) 28 (FEB 22) BUN 20 (B 24) 22 (FEB 23) H 23 (FEB 22) Cr 1.00 (B 24) 1.10 (FEB 23) 1.10 (FEB 22) Glu R H 145 (B 24) H 165 (B 23) H 209 (B 22) Ca 9.3 (B 24) 8.6 (FEB 23) 8.6 (FEB 22) Lactic 0.7 (JAN 19) 1.1 (JAN 18) [...] NGSF Rad: Radiology Results (Last 48 hours) [id number] -- 01/19/2020 15:12 CR Chest 2 Vws [...] his situation with Dr. Bravo and GARRY Electronically signed by [facility] Conversion Shellfish Meat Separator Operator Cerner at 03/17/2023 9:21 AM CDT documented in this encounter Plan of Treatment Not on file documented as of this encounter Visit Diagnoses Not on filedocumented in this encounter
--- OUTSIDE RECORDS SUMMARY | 2025-05-26 14:30 | XMS_ITS | Encounter Summary ---
Author Organization [employer] ([place], [place], [place], [place]) Address [address] [place] [address] Care Team Providers Care Research Programmer Name Role Phone Unavailable Primary Care Provider Unavailabl e Encounter Details Date Type Department Care Team (Late st Contact Info) Description 01/21/2020 Transcribed Document [facility] [place] Medicine [address] [place] [address] ProviderLora MD [address] [place], [place] [id number] Social History Tobacco Use Types Packs/Day Years Used Date Smoking Tobacco: Never Assessed Sex and Gender Information Value Date Recorded Sex Assigned at Not on file Legal Sex Male 5:25 PM CDT Gender Identity Not on file Sexual Orientation Not on file documented as of this encounter Miscellaneous Notes * Cerner Conversion Note - Lora Mcdaniel MD - 01/21/2020 11:17 AM BLAST FURNACE CHECKER Patient Education Materials Follows: Diabetes Mellitus and [...] that you work with a diet and activity therapy specialist (dietitian) to make a meal plan [...] provider. ??? Work with a counselor or liquefaction and regasification helper to identify strategies to manage stress and any emotional and social challenges. Questions to ask a health care provider ??? Do I need to meet with a liquefaction and regasification helper? Do I need to meet with a dietitian? What number can I call if I have questions? When are the best times to check my blood glucose? Where to find more information: ??? [place] Diabetes Association: diabetes.org ??? Academy of Nutrition and Dietetics: www.eatright.org ??? National Evant of Diabetes and Digestive and Kidney Diseases (NIH): www.niddk.nih.gov Summary ??? A healthy meal plan will help you control your blood glucose and maintain a healthy lifestyle. ??? Working with a diet and activity therapy specialist (dietitian) can help you make a [...] 08/10/2006 Document Revised: 06/13/2018 Document Reviewed: 12/18/2017 [employer] Interactive Patient Education ? 2019 [employer] Carbohydrate Counting for Diabetes Mellitus, Adult [...] different for every person. A diet and activity therapy specialist (registered dietitian) can help you make [...] of carbohydrates: ? hamburger bun or ? Israeli muffin. ? oz (15 mL) syrup. ? [...] foods that contain carbohydrates: ??? Rice. ??? [place]. ??? Milk. ??? Strawberries. 2. Calculate how [...] manage your diabetes. ??? A diet and activity therapy specialist (registered dietitian) can help you make a meal plan and calculate how many carbohydrates you should have at each meal and snack. This information is not intended to replace advice given to you by your health care provider. Make sure you discuss any questions you have with your health care provider. Document Released: 11/13/2006 Document Revised: 05/23/2018 Document Reviewed: 04/26/2017 [employer] Interactive Patient Education ? 2019 [employer]. Incision and Drainage, Care After Refer [...] Follow these instructions at home: ??? Take rqsk-pdm-cwnzvmv and prescription medicines only as told by [...] and water are not available, use hand makeup editor. ? When you should remove your dressing. [...] 02/04/2013 Document Revised: 04/14/2017 Document Reviewed: 09/02/2016 [employer] Interactive Patient Education ? 2019 Scan. Diabetes and Foot Care Diabetes may cause [...] 04/22/2014 Elsevier Interactive Patient Education ? 2017 [employer] Inc[employer] documented in this encounter Plan of Treatment Not on file documented as of this encounter Visit Diagnoses Not on filedocumented in this encounter
--- OUTSIDE RECORDS SUMMARY | 2025-05-26 14:30 | XMS_ITS | Encounter Summary ---
Author Organization [employer] ([place], [place], [place], [place]) Address [address] [place] [address] Care Team Providers Care Floor Scrubber Name Role Phone Unavailable Primary Care Provider Unavailabl e Encounter Details Date Type Department Care Team (Late st Contact Info) Description 01/18/2020 Transcribed Document [facility] [place] [facility] [place] [address] ProviderLora MD [address] [place], [place] [id number] Social History Tobacco Use Types Packs/Day Years Used Date Smoking Tobacco: Never Assessed Sex and Gender Information Value Date Recorded Sex Assigned at Not on file Legal Sex Male 5:25 PM CDT Gender Identity Not on file Sexual Orientation Not on file documented as of this encounter Miscellaneous Notes * Cerner Conversion Note - Lora ProviderMD - 01/18/2020 5:01 PM SECURITIES AND REAL ESTATE DIRECTOR Admission History, Adult Entered On: 01/18/2020 17:09 [...] #2 Relationship : , Primary Language : Montenegrin Communication Barrier : None Martha Daigle RN [...] Scale Risk Level : 0-24 Low Risk [place] Fall Interventions : Adequate lighting, Assistive devices [...] (Last Updated: 01/18/2020 17:05:20 EST by Martha Daigle, RN) Alcohol: Alcohol Use History No. (Last [...] Source : Stated Height Entry Format : Meigs Height, Feet : 6 ft(Converted to: 183 cm, 72 Inch) Height, Inches : 2 Inch(Converted to: 0 ft 2 Inch, 5.08 cm) Clinical Height : 187.96 cm Weight Source : Standing scale Weight Entry Format : Meigs Clinical Dosing Weight : 107.27 kg Weight, Pounds : 236 lb Body Surface Area (BSA) : 2.33 m2 Body Mass Index : 30.4 kg/m2 (HI) [place] Body Weight : 81 kg Martha Daigle [...] Martha Daigle RN - 01/18/2020 17:01 EST [place] Suicide Severity Rating Scale (C-SSRS) CSSRS Past [...] EST Electronically signed by Cathryn Watts Conversion Electrical Engineering Technician Cerner at 03/17/2023 9:37 AM CDT documented in this encounter Plan of Treatment Not on file documented as of this encounter Visit Diagnoses Not on filedocumented in this encounter
--- OUTSIDE RECORDS SUMMARY | 2025-05-26 14:30 | XMS_ITS | Encounter Summary ---
Author Organization [employer] ([place], [place], [place], [place]) Address [address] [place] [address] Care Team Providers Care 3Rd Grade Teacher Name Role Phone Unavailable Primary Care Provider Unavailabl e Encounter Details Date Type Department Care Team (Late st Contact Info) Description 01/20/2020 Transcribed Document [facility] [place] Family Medicine [address] [place] [address] ProviderLora MD [address] [place] [address] Social History Tobacco Use Types Packs/Day Years Used Date Smoking Tobacco: Never Assessed Sex and Gender Information Value Date Recorded Sex Assigned at Not on file Legal Sex Male 5:25 PM CDT Gender Identity Not on file Sexual Orientation Not on file documented as of this encounter Miscellaneous Notes * Cerner Conversion Note - Historical ProviderMD - 01/20/2020 5:00 AM CHIEF RADIATION THERAPIST Chart Check - Review Order Profile Entered [...]
--- OUTSIDE RECORDS SUMMARY | 2025-05-26 14:30 | XMS_ITS | Encounter Summary ---
Author Organization [employer] ([place], [place], [place], [place]) Address [address] [place] [address] Care Team Providers Care Tax Accountant Name Role Phone Unavailable Primary Care Provider Unavailabl e Encounter Details Date Type Department Care Team (Late st Contact Info) Description 01/20/2020 Transcribed Document [facility] [place] Family Medicine [address] [place] [address] ProviderLora MD [address] [place], [place] [address] Social History Tobacco Use Types Packs/Day Years Used Date Smoking Tobacco: Never Assessed Sex and Gender Information Value Date Recorded Sex Assigned at Not on file Legal Sex Male 5:25 PM CDT Gender Identity Not on file Sexual Orientation Not on file documented as of this encounter Miscellaneous Notes * Cerner Conversion Note - Historical ProviderMD - 01/20/2020 9:00 AM CLAIMS CLERK Consult Phone Call Documentation Entered On: 01/20/2020 [...]
--- OUTSIDE RECORDS SUMMARY | 2025-05-26 14:30 | XMS_ITS | Encounter Summary ---
Author Organization [employer] ([place], [place], [place], [place]) Address [address] [place] [address] Care Team Providers Care Surveillance Analyst Name Role Phone Unavailable Primary Care Provider Unavailabl e Encounter Details Date Type Department Care Team (Late st Contact Info) Description 01/21/[address] [facility] [place] [facility] [place] [address] ProviderLora MD [address] [place], [place] [address] Social History Tobacco Use Types Packs/Day Years Used Date Smoking Tobacco: Never Assessed Sex and Gender Information Value Date Recorded Sex Assigned at Not on file Legal Sex Male 5:25 PM CDT Gender Identity Not on file Sexual Orientation Not on file documented as of this encounter Miscellaneous Notes * Cerner Conversion Note - Historical ProviderMD - 01/21/2020 8:44 AM AUTOMOBILE SERVICE WRITER Patient: JONATHAN DELGADO Age: 49 years Sex: [...] hyperlipidemia and hypertension. He originally presented to [facility] with complaints of left [...] that due to a disagreement with the data lead that was on duty they requested transfer from that facility to here. Labs at outside hospital showed patient was without leukocytosis and was generally unremarkable. Cultures were obtained and patient was given 2 g IV Rocephin. He did receive a foot x-ray while at [facility] but the report did not [...] charted values) WBC 6.5 (JAN 21) 6.5 (JAN 20) 8.0 (JAN 19) 8.4 (JAN 18) HB 13.6 (JAN 21) 13.9 (JAN 20) L 13.0 (JAN 19) 13.5 (B ) HCT 41.5 (JAN 21) 42.9 (B 24) 40.1 (FEB 23) 41.8 (FEB 22) Plt 180 (B ) 190 (FEB 24) L 162 (B 23) L 157 (B 22) Na 136 (JAN 21) 139 (B 24) 137 (B 23) 137 (JAN 18) K 4.0 (JAN 21) 4.2 (B 24) 4.3 (B ) 3.9 (FEB 22) Cl 105 (B ) 107 (B 24) 106 (B 23) 105 (FEB ) CO2 30 (JAN 21) 29 (B 24) 29 (FEB ) 28 (FEB ) BUN 17 (JAN 21) 20 (JAN 20) 22 (JAN 19) H [...] with the lab today 01/18 blood [facility] Rad: Radiology Results (Last 48 hours) [id number] -- 01/19/2020 15:12 CR Chest 2 Vws [...]
--- OUTSIDE RECORDS SUMMARY | 2025-05-26 14:30 | XMS_ITS | Encounter Summary ---
Author Organization [employer] ([place], [place], [place], [place]) Address [address] [place] [address] Care Team Providers Care Journalists And Other Writers Name Role Phone Unavailable Primary Care Provider Unavailabl e Encounter Details Date Type Department Care Team (Late st Contact Info) Description 01/20/2020 Transcribed Document [facility] [place] [address] [place] [address] ProviderLora MD [address] [place] [address] Social History Tobacco Use Types Packs/Day Years Used Date Smoking Tobacco: Never Assessed Sex and Gender Information Value Date Recorded Sex Assigned at Not on file Legal Sex Male 5:25 PM CDT Gender Identity Not on file Sexual Orientation Not on file documented as of this encounter Miscellaneous Notes * Cerner Conversion Note - Historical ProviderMD - 01/20/2020 2:00 AM STUFFING MACHINE OPERATOR Integrated Logistics Support Manager Details Entered On: 01/20/2020 3:34 EST Performed [...]
--- OUTSIDE RECORDS SUMMARY | 2025-05-26 14:30 | XMS_ITS | Encounter Summary ---
Author Organization [employer] ([place], [place], [place], [place]) Address [address] [place] [address] Care Team Providers Care Steam Conditioner Filling Name Role Phone Unavailable Primary Care Provider Unavailabl e Encounter Details Date Type Department Care Team (Late st Contact Info) Description 01/21/2020 Transcribed Document [facility] [place] [facility] [place] [address] ProviderLora MD [address], [place] [id number] Social History Tobacco Use Types Packs/Day Years Used Date Smoking Tobacco: Never Assessed Sex and Gender Information Value Date Recorded Sex Assigned at Not on file Legal Sex Male 5:25 PM CDT Gender Identity Not on file Sexual Orientation Not on file documented as of this encounter Miscellaneous Notes * Cerner Conversion Note - Historical ProviderMD - 01/21/2020 2:32 PM MOLDING PLASTERER Nursing Discharge Summary Entered On: 01/21/2020 14:33 [...] Cinthya Salamanca RN - 01/21/2020 14:32 EST documented in this encounter Plan of Treatment Not on file documented as of this encounter Visit Diagnoses Not on filedocumented in this encounter
--- OUTSIDE RECORDS SUMMARY | 2025-05-26 14:30 | XMS_ITS | Encounter Summary ---
Author Organization [employer] ([place], [place], [place], [place]) Address [address] [place] [address] Care Team Providers Care Mortgage Loan Computation Clerk Name Role Phone Unavailable Primary Care Provider Unavailabl e Encounter Details Date Type Department Care Team (Late st Contact Info) Description 01/20/2020 Transcribed Document [facility] [place] [address] [place] [address] ProviderLora MD [address] [place], [place] [id number] Social History Tobacco Use Types Packs/Day Years Used Date Smoking Tobacco: Never Assessed Sex and Gender Information Value Date Recorded Sex Assigned at Not on file Legal Sex Male 5:25 PM CDT Gender Identity Not on file Sexual Orientation Not on file documented as of this encounter Miscellaneous Notes * Cerner Conversion Note - Historical ProviderMD - 01/20/2020 1:07 PM ZIPPER MEASURER Initial Discharge Planning Entered On: 01/20/2020 13:12 [...]
--- OUTSIDE RECORDS SUMMARY | 2025-05-26 14:30 | XMS_ITS | Referral Summary ---
Author Organization [employer] [facility] ([place], [place], [place], [place]) Address [address] [place] [address] Care Team Providers Care Chief Technical Officer Name Role Phone Unavailable Primary Care Provider [...]
--- OUTSIDE RECORDS SUMMARY | 2025-05-26 14:30 | XMS_ITS | Encounter Summary ---
Author Organization [employer] ([place], [place], [place], [place]) Address [address] [place] [address] Care Team Providers Care Filling Layer Up Name Role Phone Unavailable Primary Care Provider Unavailabl e Encounter Details Date Type Department Care Team (Late st Contact Info) Description 01/20/2020 Transcribed Document [facility] Cardiology [address] [place] [address] [place] [address] [place] [address] [address] [place] [address] Social History Tobacco Use Types Packs/Day [...] None Author: JAYJAY SAMAYOA MD-CAR Basic Information Sales Assistant: Dr Sibley ([facility] for caths) Subjective NAD Health Status Current medications: (Selected) Inpatient Medications Ordered Ativan: 0.5 mg, IV Push, Q4H, PRN: Agitation DAPTOmycin + Sodium Chloride 0.9% intravenous solution 50 mL: 900 mg, 18 mL, 136 mL/Hr, IV Piggyback, [id number] DAPTOmycin + Sodium Chloride 0.9% intravenous solution 50 mL: 900 mg, 18 mL, 136 mL/Hr, IV Piggyback, [id number] DuoNeb 0.5 mg-2.5 mg/3 mL inhalation solution: [...] mL: 2 Gram, 100 mL/Hr, IV Piggyback, [id number] Tylenol: 650 mg, Oral, Q4H, PRN: Other [...] (JAN 19 10:55) Resp Rate 18 (JAN 20 03:22) 17 (JAN 19 10:55) 20 (JAN 19:27) SBP 106 (JAN 20:22) 104 (JAN 19:27) [...] of motion, Normal strength. Integumentary: Warm, Dry, Schurz. Neurologic: Alert, Oriented. Psychiatric: Cooperative, Appropriate mood & affect. Results Review JAN 20 06:38 \ 13.9 / 6.5 190 / 42.9 \ Radiology Results (Last 48 hours) [id number] -- 01/19/2020 15:12 CR Chest 2 Vws [...] time Continue aspirin, statin Follow-up with primary marketing/sales person in 2 weeks 01/19/2020 I do [...]
--- OUTSIDE RECORDS SUMMARY | 2025-05-26 14:30 | XMS_ITS | Encounter Summary ---
Author Organization [employer] ([place], [place], [place], [place]) Address [address] [place] [address] Care Team Providers Care Rn Pain Management Name Role Phone Unavailable Primary Care Provider Unavailabl e Encounter Details Date Type Department Care Team (Late st Contact Info) Description 01/21/2020 Transcribed Document [facility] [place] Family Medicine [address] [place] [address] ProviderLora MD [address] [place] [address] Social History Tobacco Use Types Packs/Day Years Used Date Smoking Tobacco: Never Assessed Sex and Gender Information Value Date Recorded Sex Assigned at Not on file Legal Sex Male 5:25 PM CDT Gender Identity Not on file Sexual Orientation Not on file documented as of this encounter Miscellaneous Notes * Cerner Conversion Note - Historical ProviderMD - 01/21/2020 2:00 AM GRAPHIC MANAGER Berry Planter Details Entered On: 01/21/2020 5:09 EST Performed On: 01/21/2020 2:00 EST by Rama Yeung, RN Order Details Transport Mode Order Detail : Wheelchair Isolation Precautions Order Detail : Standard Precautions Order Detail : N/A Lift/Transfer : Independent Central Line Order Detail : No Room Service : Appropriate Arterial Line : No Rama Yeung, RN - 01/21/2020 5:09 EST documented in this encounter Plan of Treatment Not on file documented as of this encounter Visit Diagnoses Not on filedocumented in this encounter
--- OUTSIDE RECORDS SUMMARY | 2025-05-26 14:30 | XMS_ITS | Encounter Summary ---
Author Organization [employer] ([place], [place], [place], [place]) Address [address] [place] [address] Care Team Providers Care Adjustment Supervisor Name Role Phone Unavailable Primary Care Provider Unavailabl e Encounter Details Date Type Department Care Team (Late st Contact Info) Description 01/18/2020 Transcribed Document [facility] [place] [facility] [place] [address] ProviderLora MD [address] [place] [address] Social History Tobacco Use Types Packs/Day Years Used Date Smoking Tobacco: Never Assessed Sex and Gender Information Value Date Recorded Sex Assigned at Not on file Legal Sex Male 5:25 PM CDT Gender Identity Not on file Sexual Orientation Not on file documented as of this encounter Miscellaneous Notes * [employer]ner Conversion Note - Lora ProviderMD - 01/18/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
--- NOTE | 2025-05-26 14:35 | HMH.EDCP ---
Discharge Plan Disposition Patient Disposition: Admitted Clinical Impressions Clinical Impression: [place] (acute kidney injury), Unstable angina Discharge ED Provider: Ronnie Dumont HPI <Floridaamilcar Baldwinronald (ED), - Last Filed: 05/26/25 19:00> General Chief Complaint: Chest Pain Stated Complaint: Chest Pain Time Seen by Provider: 05/26/25 14:25 History of Present Illness HPI narrative: 54-year-old male presents to the ED today for complaint of chest pain, shortness of breath and dizziness that started 2 days ago. He has had a history of stents placed approximately a year ago by Dr. Ortega. Patient states that he had an abnormal stress test recently and is scheduled for a heart cath on Monday. He did take 3 nitro about an hour and a half ago and it did help his chest pain. He says when he does have the pain it goes down his left shoulder into his left hand causing numbness. He says the chest tightness has gotten worse. He has nausea but no vomiting. He is clammy upon arrival to the ED. Patient complains that the pain is 5 out of 10. Blood sugar on arrival was 139. He is a diabetic. He states that he does have moments of hypotension where his blood pressure will drop down. He says recently it has been pretty normal. Monday he did have a syncopal episode where he did pass out and he is not sure if he hit his head but he thinks he may have. He is on Brilinta. Patient tells me he has CAD and high cholesterol as well. Related Data Home Medications ?Medication ?Instructions ?Recorded ?Confirmed blood-glucose sensor (Dexcom G6 #1 ea 08/27/24 05/19/25 Sensor device) blood-glucose transmitter (Dexcom #1 ea 08/27/24 05/19/25 G6 Transmitter device) pantoprazole 40 mg tablet,delayed 40 mg PO DAILY 11/28/24 05/26/25 release atorvastatin 80 mg tablet 80 mg PO HS 12/23/24 05/26/25 bupropion HCl 75 mg tablet 75 mg PO BID 12/23/24 05/26/25 gabapentin 300 mg capsule 300 mg PO HS 12/23/24 05/26/25 insulin lispro 100 unit/mL 125 unit continuous subcutaneous 12/23/24 05/26/25 subcutaneous solution (Humalog infusion CONT U-100 Insulin) sertraline 100 mg tablet 200 mg PO DAILY 01/13/25 05/26/25 ergocalciferol (vitamin D2) 1,250 1,250 mcg PO WEEKLY 03/03/25 05/26/25 mcg (50,000 unit) capsule folic acid 1 mg tablet 1 mg PO DAILY 03/03/25 05/26/25 Previous Rx's ?Medication ?Instructions ?Recorded aspirin 81 mg tablet,delayed 81 mg PO DAILY #90 tabs 01/06/25 release ranolazine 1,000 mg 1,000 mg PO BID #180 tabs 03/03/25 tablet,extended release,12 hr ticagrelor 90 mg tablet (Brilinta) 90 mg PO BID #180 tabs 03/20/25 nitroglycerin 0.4 mg sublingual 0.4 mg sublingual Q5M PRN chest 05/16/25 tablet (Nitrostat) pain #25 tabs Allergies Allergy/AdvReac Type Severity Reaction Status Date / Time Penicillins Allergy Unknown Verified 05/19/25 08:45 allergy reaction PFS <Florida Thomson (ED), [employer] - Last Filed: 05/26/25 19:00> [facility] Disclaimer: The information contained in this section may have been updated after the patient was seen, as this information can be updated by other users. Medical History SOB (shortness of breath) Involuntary movements Numbness and tingling of left arm and leg Diabetes mellitus, type 2 Peripheral arterial disease Claudication Abnormal findings on diagnostic imaging of heart and coronary circulation Blood pressure instability Elevated blood pressure reading with diagnosis of hypertension FHx: cholecystectomy Depression Anxiety Angina pectoris Hyperlipidemia Hypertension Dyspnea Coronary artery disease Surgical History Hx of spinal fusion Hx of cholecystectomy H/O right heart catheterization H/O hernia repair H/O elbow surgery H/O knee surgery Stented coronary artery Family History Mother Lupus Other Family history of diabetes mellitus type II Family history of hyperlipidemia Family history of hypertension Family history of myocardial infarction Social History Smoking Status: Former smoker alcohol intake: never current occupational status: unemployed and disabled Travel in the last 8 weeks?: None Have you lived/traveled outside US in past 30 days?: No Contact w/someone who lives/traveled outside US past 30 days?: No Exposure to someone with infectious disease in past 14 days?: No Do you have a fever (greater than 100.4 F or 38 C)?: No Have you tested positive for COVID-19?: No Exposed to someone with COVID-19 in past 14 days?: No Do you have a sore throat?: No Do you have a cough?: No Do you have any weakness?: No Are you experiencing any nausea/vomitting?: No Do you have any diarrhea?: No Are you experiencing any unusual bleeding?: No Do you have any muscle aches/pain?: No Do you have any abdominal pain?: No Are you experiencing loss of taste or smell?: No Other Medical History Have you received the Flu Vaccine for this season: No Have you received the Pneumonia Vaccine: No <Florida Thomson (ED), [employer] - Last Filed: 05/26/25 19:00> ROS Obtained: Yes Systems reviewed as appropriate & no additional complaints except as documented Constitutional Constitutional: Reports as per HPI Physical Exam <Florida Thomson (ED), [employer] - Last Filed: 05/26/25 19:00> General General appearance: alert and in no apparent distress Head Head exam: normocephalic Eye Eye exam: Present normal appearance and PERRL ENT ENT exam: Present mucous membranes moist Neck Neck exam: Present normal inspection and trachea midline Chest Chest inspection: Present symmetric chest wall rise Respiratory Respiratory exam: Present normal lung sounds bilaterally Cardiovascular Cardiovascular exam: Present regular rate, normal rhythm, normal heart sounds, +S1 and +S2 Abdominal Exam Abdominal exam: Present soft and normal bowel sounds Extremities Exam Extremities exam: Present normal inspection, full ROM and normal capillary refill Back Exam Back exam: Present normal inspection and full ROM Neurological Exam Neurological exam: Present alert, oriented X3 and normal gait Psychiatric Psychiatric exam: Present normal mood Skin Skin exam: Present warm and dry HEART Score <Florida Thomson (ED), [employer] - Last Filed: 05/26/25 19:00> HEART Score HEART Score assessment performed?: Yes History (anamnesis): Slightly suspicious ECG: Non-specific disturbance Age: 45-65 years Risk factors: 1-2 risk factors Troponin: </= normal limit HEART Score: 3 <Ronnie Dumont MD - Last Filed: 05/26/25 19:04> HEART Score HEART Score: 3 Critical Care <Florida Thomson (ED), [employer] - Last Filed: 05/26/25 19:00> Critical Care Time Critical Care Time: No Medical Decision Making <Florida Thomson (ED), [employer] - Last Filed: 05/26/25 19:00> [place] Inquiry Pt receiving controlled substance: No Vital Signs Vital Signs: 05/26/25 14:28 05/26/25 14:38 05/26/25 14:39 Temperature 98.4 F Temperature Source Oral Pulse Rate 89 89 Pulse Rate [Right] 89 Respiratory Rate 13 13 Blood Pressure 128/73 Blood Pressure [Right Arm] 128/73 Blood Pressure Mean Blood Pressure Mean [Right Arm] 91 02 Sat by Pulse Oximetry 98 98 Oxygen Delivery Method Room Air Room Air 05/26/25 15:25 05/26/25 15:42 05/26/25 16:00 Temperature Temperature Source Pulse Rate 73 69 Pulse Rate [Right] Respiratory Rate 16 16 Blood Pressure 207/118 H 139/76 116/68 Blood Pressure [Right Arm] Blood Pressure Mean 97 84 Blood Pressure Mean [Right Arm] 02 Sat by Pulse Oximetry 98 97 Oxygen Delivery Method 05/26/25 16:30 05/26/25 16:43 05/26/25 16:57 Temperature 98.4 F Temperature Source Oral Pulse Rate 68 Pulse Rate [Right] 67 Respiratory Rate 16 16 Blood Pressure 116/66 Blood Pressure [Right Arm] 116/66 Blood Pressure Mean 81 Blood Pressure Mean [Right Arm] 82 02 Sat by Pulse Oximetry 97 96 Oxygen Delivery Method Room Air Room Air 05/26/25 17:00 05/26/25 17:30 05/26/25 17:38 Temperature 98.4 F Temperature Source Pulse Rate 69 67 69 Pulse Rate [Right] Respiratory Rate 11 L 18 14 Blood Pressure 127/80 121/77 121/77 Blood Pressure [Right Arm] Blood Pressure Mean 90 Blood Pressure Mean [Right Arm] 02 Sat by Pulse Oximetry 96 98 Oxygen Delivery Method Room Air Lab Data Labs: Lab Results 05/26/25 14:24: WBC 8.8, RBC 4.96, Hgb 14.0 L, Hct 42.4, MCV 85.5, MCH 28.2, MCHC 33.0, RDW 13.5, Plt Count 225, MPV 10.1, Neut % (Auto) 69.5, Lymph % (Auto) 18.2, Chaves % (Auto) 9.6 H, Eos % (Auto) 1.8, Baso % (Auto) 0.6, Neut # (Auto) 6.1, Lymph # (Auto) 1.6, Chaves # (Auto) 0.8, Eos # (Auto) 0.2, Baso # (Auto) 0.1, APTT 25.1, D-Dimer 0.75 H, Sodium 135 L, Potassium 4.2, Chloride 95 L, Carbon Dioxide 28, Anion Gap 16.2 H, BUN 38 H, Creatinine 2.00 H, Estimated Creat Clear 64, Estimated GFR 35 L, Est GFR ( Amer) 42 L, Glucose 165 H, Calcium 9.4, Magnesium 1.4 L, Total Bilirubin 0.7, AST 45, ALT 29, Alkaline Phosphatase 153 H, Troponin I < 0.01, Total Protein 7.7, Albumin 4.6, Globulin 3.1, Albumin/Globulin Ratio 1.5, Lipase 62 05/26/25 17:26: Troponin I < 0.01 05/26/25 14:24 05/26/25 14:24 Response Orders (Tests/Meds): ED MEDICATIONS Generic Name Dose Route Start Last Admin Trade Name Freq PRN Reason Stop Dose Admin Aspirin 81 mg 05/27/25 09:00 Aspirin Ec 81mg Tablet PO 06/26/25 08:59 DAILY SULEIMAN Atorvastatin Calcium 80 mg 05/26/25 21:00 Atorvastatin 40mg Tablet PO 06/25/25 20:59 HS SULEIMAN Bupropion HCl 75 mg 05/26/25 21:00 Bupropion Hcl 75 Mg Tablet PO 06/25/25 20:59 BID SULEIMAN Gabapentin 300 mg 05/26/25 21:00 Gabapentin 300mg Capsule PO 06/25/25 20:59 HS SULEIMAN Sodium Chloride 1,000 mls @ 100 mls/hr 05/26/25 18:45 Sod Chlor 0.9% 1000ml Bag IV 05/27/25 02:14 .Q10H SULEIMAN Insulin Human Lispro 125 unit 05/26/25 18:30 05/26/25 18:39 Humalog 100 Units/Ml 10ml Vial (Ssi) SUBCUT 06/25/25 18:29 Not Given CONT SULEIMAN Nitroglycerin 0.4 mg 05/26/25 18:18 Nitroglycerin 0.4mg Sl Tablet SL 06/25/25 18:17 Q5M PRN Chest Pain Non-Formulary Medication 1,000 mg 05/26/25 21:00 Ranolazine PO 06/25/25 20:59 BID SULEIMAN Pantoprazole Sodium 40 mg 05/27/25 09:00 Pantoprazole 40mg Tablet PO 06/26/25 08:59 DAILY SULEIMAN Sertraline HCl 200 mg 05/27/25 09:00 Sertraline 100mg Tablet PO 06/26/25 08:59 DAILY SULEIMAN Sodium Chloride 8 ml 05/26/25 15:24 Sodium Chloride 0.9% 10ml Vial IV 06/25/25 15:23 NEEDED PRN dilute pepcid Sodium Chloride 10 ml 05/26/25 15:33 05/26/25 15:34 Sodium Chloride 0.9% 10ml Syr (Rad Only) IV 06/25/25 15:32 10 ml NEEDED PRN Administration Maintain IV Site Ticagrelor 90 mg 05/26/25 21:00 Ticagrelor 90mg Tablet PO 06/25/25 20:59 BID SULEIMAN Discontinued Medications Generic Name Dose Route Start Last Admin Trade Name Freq PRN Reason Stop Dose Admin Aspirin 324 mg 05/26/25 14:28 05/26/25 14:47 Aspirin 81mg Chewable Tablet PO 05/26/25 14:29 324 mg ONCE ONE Administration Enoxaparin Sodium 40 mg 05/26/25 16:34 05/26/25 16:49 Enoxaparin 40mg/0.4ml Syringe SUBCUT 05/26/25 16:35 40 mg ONCE ONE Administration Famotidine 20 mg 05/26/25 15:24 05/26/25 15:31 Famotidine 20mg/2ml Vial IV 05/26/25 15:25 20 mg ONCE ONE Administration Magnesium Sulfate 2 gm in 50 mls @ 50 mls/hr 05/26/25 15:12 05/26/25 15:31 Magnesium Sulfate 2gm/50ml Premix IV 05/26/25 16:11 50 mls/hr ONCE ONE Administration Sodium Chloride 1,000 mls @ 999 mls/hr 05/26/25 15:22 05/26/25 15:30 Sod Chlor 0.9% 1000ml Bag IV 05/26/25 16:22 999 mls/hr .Q1H1M ONE Administration Iopamidol 70 ml 05/26/25 15:33 05/26/25 15:34 Iopamidol-370 (76%);100ml Bottle IV 05/26/25 15:34 70 ml ONCE ONE Administration Morphine Sulfate 2 mg 05/26/25 15:24 05/26/25 15:30 Morphine 2mg/Ml Syringe IV 05/26/25 15:25 2 mg ONCE ONE Administration Sodium Chloride 50 ml 05/26/25 15:33 05/26/25 15:34 0.9 % Sodium Chloride 50 Ml Vial IV 05/26/25 15:34 50 ml ONCE ONE Administration ORDERS Category Date Time Status CT head/brain wo con Stat Cat Scan 05/26/25 14:28 Completed CTA Chest [CT angio chest PE protocol] Stat Cat Scan 05/26/25 15:13 Completed Cardiology Consult [Consult to Cardiology] [CONS] Cons 05/26/25 16:29 Active Routine Chest XR -- portable [XR chest portable] Stat Exams 05/26/25 14:28 Completed CBC [Complete Blood Count Auto Diff] Stat Lab 05/26/25 14:24 Completed Complete Blood Count Auto Diff AMLAB Lab 05/27/25 06:00 Ordered Comprehensive Metabolic Panel AMLAB Lab 05/27/25 06:00 Ordered Comprehensive Metabolic Panel Stat Lab 05/26/25 14:24 Completed D-Dimer Stat Lab 05/26/25 14:24 Completed Lipase Stat Lab 05/26/25 14:24 Completed Magnesium AMLAB Lab 05/27/25 06:00 Ordered Magnesium Stat Lab 05/26/25 14:24 Completed PTT [Activated Partial Thrombo Time] Stat Lab 05/26/25 14:24 Completed Trop I [Troponin I] Stat Lab 05/26/25 14:24 Completed Troponin I Q3H Lab 05/26/25 17:26 Completed Troponin I Q3H Lab 05/26/25 20:30 Ordered MDM Narrative Medical Decision Narrative: patient is a 54-year-old male presenting to the emergency department for evaluation of chest pain, shortness of breath and dizziness that started a couple days ago. Patient had an abnormal stress test and is scheduled for heart cath on Monday. He took 3 nitro today his pain improved but worsened so he came to the ED.. Patient is hemodynamically stable and nontoxic-appearing upon arrival, afebrile. Differential diagnosis includes ACS, CAD, [place], CVA, versus trauma after a fall, among others. Workup will be conducted with hematologic labs, specific imaging including CT of head and CTA of chest to rule out a PE. Initial inventions include crystalloid bolus, analgesics. Initial workup reviewed by me hematologic labs are remarkable for BUN 38 creatinine of 2. Patient's BUN and creatinine has been elevated in the past. His mag was 1.4 so this was replaced here in the ED. Imaging informally interpreted by me and remarkable for nothing acute. Formal and imaging negative for anything acute please see formal imaging reports. Upon repeat evaluation patient's pain is improved however he is still having chest pain. I talked to Dr. Ortega and he wants to admit patient so he can cath him. I talked to [facility] who admitted [facility] patient to [facility]. Patient is agreeable to admission. Also discussed with Dr. Smith previously to discussed the plan. <Patrick Smith MD - Last Filed: 05/26/25 14:55> Vital Signs Vital Signs: 05/26/25 14:28 05/26/25 14:38 05/26/25 14:39 Temperature 98.4 F Temperature Source Oral Pulse Rate 89 89 Pulse Rate [Right] 89 Respiratory Rate 13 13 Blood Pressure 128/73 Blood Pressure [Right Arm] 128/73 Blood Pressure Mean Blood Pressure Mean [Right Arm] 91 02 Sat by Pulse Oximetry 98 98 Oxygen Delivery Method Room Air Room Air 05/26/25 15:25 05/26/25 15:42 05/26/25 16:00 Temperature Temperature Source Pulse Rate 73 69 Pulse Rate [Right] Respiratory Rate 16 16 Blood Pressure 207/118 H 139/76 116/68 Blood Pressure [Right Arm] Blood Pressure Mean 97 84 Blood Pressure Mean [Right Arm] 02 Sat by Pulse Oximetry 98 97 Oxygen Delivery Method 05/26/25 16:30 05/26/25 16:43 05/26/25 16:57 Temperature 98.4 F Temperature Source Oral Pulse Rate 68 Pulse Rate [Right] 67 Respiratory Rate 16 16 Blood Pressure 116/66 Blood Pressure [Right Arm] 116/66 Blood Pressure Mean 81 Blood Pressure Mean [Right Arm] 82 02 Sat by Pulse Oximetry 97 96 Oxygen Delivery Method Room Air Room Air 05/26/25 17:00 05/26/25 17:30 05/26/25 17:38 Temperature 98.4 F Temperature Source Pulse Rate 69 67 69 Pulse Rate [Right] Respiratory Rate 11 L 18 14 Blood Pressure 127/80 121/77 121/77 Blood Pressure [Right Arm] Blood Pressure Mean 90 Blood Pressure Mean [Right Arm] 02 Sat by Pulse Oximetry 96 98 Oxygen Delivery Method Room Air Lab Data Labs: Lab Results 05/26/25 14:24: WBC 8.8, RBC 4.96, Hgb 14.0 L, Hct 42.4, MCV 85.5, MCH 28.2, MCHC 33.0, RDW 13.5, Plt Count 225, MPV 10.1, Neut % (Auto) 69.5, Lymph % (Auto) 18.2, Chaves % (Auto) 9.6 H, Eos % (Auto) 1.8, Baso % (Auto) 0.6, Neut # (Auto) 6.1, Lymph # (Auto) 1.6, Chaves # (Auto) 0.8, Eos # (Auto) 0.2, Baso # (Auto) 0.1, APTT 25.1, D-Dimer 0.75 H, Sodium 135 L, Potassium 4.2, Chloride 95 L, Carbon Dioxide 28, Anion Gap 16.2 H, BUN 38 H, Creatinine 2.00 H, Estimated Creat Clear 64, Estimated GFR 35 L, Est GFR ( Amer) 42 L, Glucose 165 H, Calcium 9.4, Magnesium 1.4 L, Total Bilirubin 0.7, AST 45, ALT 29, Alkaline Phosphatase 153 H, Troponin I < 0.01, Total Protein 7.7, Albumin 4.6, Globulin 3.1, Albumin/Globulin Ratio 1.5, Lipase 62 05/26/25 17:26: Troponin I < 0.01 Response Orders (Tests/Meds): ED MEDICATIONS Generic Name Dose Route Start Last Admin Trade Name Freq PRN Reason Stop Dose Admin Aspirin 81 mg 05/27/25 09:00 Aspirin Ec 81mg Tablet PO 06/26/25 08:59 DAILY SULEIMAN Atorvastatin Calcium 80 mg 05/26/25 21:00 Atorvastatin 40mg Tablet PO 06/25/25 20:59 HS SULEIMAN Bupropion HCl 75 mg 05/26/25 21:00 Bupropion Hcl 75 Mg Tablet PO 06/25/25 20:59 BID SULEIMAN Gabapentin 300 mg 05/26/25 21:00 Gabapentin 300mg Capsule PO 06/25/25 20:59 HS SULEIMAN Sodium Chloride 1,000 mls @ 100 mls/hr 05/26/25 18:45 Sod Chlor 0.9% 1000ml Bag IV 05/27/25 02:14 .Q10H SULEIMAN Insulin Human Lispro 125 unit 05/26/25 18:30 05/26/25 18:39 Humalog 100 Units/Ml 10ml Vial (Ssi) SUBCUT 06/25/25 18:29 Not Given CONT SULEIMAN Nitroglycerin 0.4 mg 05/26/25 18:18 Nitroglycerin 0.4mg Sl Tablet SL 06/25/25 18:17 Q5M PRN Chest Pain Non-Formulary Medication 1,000 mg 05/26/25 21:00 Ranolazine PO 06/25/25 20:59 BID SULEIMAN Pantoprazole Sodium 40 mg 05/27/25 09:00 Pantoprazole 40mg Tablet PO 06/26/25 08:59 DAILY SULEIMAN Sertraline HCl 200 mg 05/27/25 09:00 Sertraline 100mg Tablet PO 06/26/25 08:59 DAILY SULEIMAN Sodium Chloride 8 ml 05/26/25 15:24 Sodium Chloride 0.9% 10ml Vial IV 06/25/25 15:23 NEEDED PRN dilute pepcid Sodium Chloride 10 ml 05/26/25 15:33 05/26/25 15:34 Sodium Chloride 0.9% 10ml Syr (Rad Only) IV 06/25/25 15:32 10 ml NEEDED PRN Administration Maintain IV Site Ticagrelor 90 mg 05/26/25 21:00 Ticagrelor 90mg Tablet PO 06/25/25 20:59 BID SULEIMAN Discontinued Medications Generic Name Dose Route Start Last Admin Trade Name Freq PRN Reason Stop Dose Admin Aspirin 324 mg 05/26/25 14:28 05/26/25 14:47 Aspirin 81mg Chewable Tablet PO 05/26/25 14:29 324 mg ONCE ONE Administration Enoxaparin Sodium 40 mg 05/26/25 16:34 05/26/25 16:49 Enoxaparin 40mg/0.4ml Syringe SUBCUT 05/26/25 16:35 40 mg ONCE ONE Administration Famotidine 20 mg 05/26/25 15:24 05/26/25 15:31 Famotidine 20mg/2ml Vial IV 05/26/25 15:25 20 mg ONCE ONE Administration Magnesium Sulfate 2 gm in 50 mls @ 50 mls/hr 05/26/25 15:12 05/26/25 15:31 Magnesium Sulfate 2gm/50ml Premix IV 05/26/25 16:11 50 mls/hr ONCE ONE Administration Sodium Chloride 1,000 mls @ 999 mls/hr 05/26/25 15:22 05/26/25 15:30 Sod Chlor 0.9% 1000ml Bag IV 05/26/25 16:22 999 mls/hr .Q1H1M ONE Administration Iopamidol 70 ml 05/26/25 15:33 05/26/25 15:34 Iopamidol-370 (76%);100ml Bottle IV 05/26/25 15:34 70 ml ONCE ONE Administration Morphine Sulfate 2 mg 05/26/25 15:24 05/26/25 15:30 Morphine 2mg/Ml Syringe IV 05/26/25 15:25 2 mg ONCE ONE Administration Sodium Chloride 50 ml 05/26/25 15:33 05/26/25 15:34 0.9 % Sodium Chloride 50 Ml Vial IV 05/26/25 15:34 50 ml ONCE ONE Administration ORDERS Category Date Time Status CT head/brain wo con Stat Cat Scan 05/26/25 14:28 Completed CTA Chest [CT angio chest PE protocol] Stat Cat Scan 05/26/25 15:13 Completed Cardiology Consult [Consult to Cardiology] [CONS] Cons 05/26/25 16:29 Active Routine Chest XR -- portable [XR chest portable] Stat Exams 05/26/25 14:28 Completed CBC [Complete Blood Count Auto Diff] Stat Lab 05/26/25 14:24 Completed Complete Blood Count Auto Diff AMLAB Lab 05/27/25 06:00 Ordered Comprehensive Metabolic Panel AMLAB Lab 05/27/25 06:00 Ordered Comprehensive Metabolic Panel Stat Lab 05/26/25 14:24 Completed D-Dimer Stat Lab 05/26/25 14:24 Completed Lipase Stat Lab 05/26/25 14:24 Completed Magnesium AMLAB Lab 05/27/25 06:00 Ordered Magnesium Stat Lab 05/26/25 14:24 Completed PTT [Activated Partial Thrombo Time] Stat Lab 05/26/25 14:24 Completed Trop I [Troponin I] Stat Lab 05/26/25 14:24 Completed Troponin I Q3H Lab 05/26/25 17:26 Completed Troponin I Q3H Lab 05/26/25 20:30 Ordered ECG Data Tracing #1: ECG Narrative: Independently interpreted by me rate is 81, rhythm is regular, axis is leftward deviated, no ST elevation in anatomical contiguous leads, QTc 405. MDM Narrative Medical Decision Narrative: Patrick Luis: I was consulted by the KRYSTAL, and we discussed the complexity of the problems being addressed. I approved the treatment and management plan for this patient's care in the emergency department, thus performing a substantive portion of the medical decision making. I agree with the original workup and imaging for chest pain evaluation, workup and ultimate disposition pending at time of transfer of care to the oncoming physician, Dr. Dumont. <Ronnie Dumont MD - Last Filed: 05/26/25 19:04> Vital Signs Vital Signs: 05/26/25 14:28 05/26/25 14:38 05/26/25 14:39 Temperature 98.4 F Temperature Source Oral Pulse Rate 89 89 Pulse Rate [Right] 89 Respiratory Rate 13 13 Blood Pressure 128/73 Blood Pressure [Right Arm] 128/73 Blood Pressure Mean Blood Pressure Mean [Right Arm] 91 02 Sat by Pulse Oximetry 98 98 Oxygen Delivery Method Room Air Room Air 05/26/25 15:25 05/26/25 15:42 05/26/25 16:00 Temperature Temperature Source Pulse Rate 73 69 Pulse Rate [Right] Respiratory Rate 16 16 Blood Pressure 207/118 H 139/76 116/68 Blood Pressure [Right Arm] Blood Pressure Mean 97 84 Blood Pressure Mean [Right Arm] 02 Sat by Pulse Oximetry 98 97 Oxygen Delivery Method 05/26/25 16:30 05/26/25 16:43 05/26/25 16:57 Temperature 98.4 F Temperature Source Oral Pulse Rate 68 Pulse Rate [Right] 67 Respiratory Rate 16 16 Blood Pressure 116/66 Blood Pressure [Right Arm] 116/66 Blood Pressure Mean 81 Blood Pressure Mean [Right Arm] 82 02 Sat by Pulse Oximetry 97 96 Oxygen Delivery Method Room Air Room Air 05/26/25 17:00 05/26/25 17:30 05/26/25 17:38 Temperature 98.4 F Temperature Source Pulse Rate 69 67 69 Pulse Rate [Right] Respiratory Rate 11 L 18 14 Blood Pressure 127/80 121/77 121/77 Blood Pressure [Right Arm] Blood Pressure Mean 90 Blood Pressure Mean [Right Arm] 02 Sat by Pulse Oximetry 96 98 Oxygen Delivery Method Room Air Lab Data Labs: Lab Results 05/26/25 14:24: WBC 8.8, RBC 4.96, Hgb 14.0 L, Hct 42.4, MCV 85.5, MCH 28.2, MCHC 33.0, RDW 13.5, Plt Count 225, MPV 10.1, Neut % (Auto) 69.5, Lymph % (Auto) 18.2, Chaves % (Auto) 9.6 H, Eos % (Auto) 1.8, Baso % (Auto) 0.6, Neut # (Auto) 6.1, Lymph # (Auto) 1.6, Chaves # (Auto) 0.8, Eos # (Auto) 0.2, Baso # (Auto) 0.1, APTT 25.1, D-Dimer 0.75 H, Sodium 135 L, Potassium 4.2, Chloride 95 L, Carbon Dioxide 28, Anion Gap 16.2 H, BUN 38 H, Creatinine 2.00 H, Estimated Creat Clear 64, Estimated GFR 35 L, Est GFR ( Amer) 42 L, Glucose 165 H, Calcium 9.4, Magnesium 1.4 L, Total Bilirubin 0.7, AST 45, ALT 29, Alkaline Phosphatase 153 H, Troponin I < 0.01, Total Protein 7.7, Albumin 4.6, Globulin 3.1, Albumin/Globulin Ratio 1.5, Lipase 62 05/26/25 17:26: Troponin I < 0.01 Response Orders (Tests/Meds): ED MEDICATIONS Generic Name Dose Route Start Last Admin Trade Name Freq PRN Reason Stop Dose Admin Aspirin 81 mg 05/27/25 09:00 Aspirin Ec 81mg Tablet PO 06/26/25 08:59 DAILY SULEIMAN Atorvastatin Calcium 80 mg 05/26/25 21:00 Atorvastatin 40mg Tablet PO 06/25/25 20:59 HS SULEIMAN Bupropion HCl 75 mg 05/26/25 21:00 Bupropion Hcl 75 Mg Tablet PO 06/25/25 20:59 BID SULEIMAN Gabapentin 300 mg 05/26/25 21:00 Gabapentin 300mg Capsule PO 06/25/25 20:59 HS SULEIMAN Sodium Chloride 1,000 mls @ 100 mls/hr 05/26/25 18:45 Sod Chlor 0.9% 1000ml Bag IV 05/27/25 02:14 .Q10H SULEIMAN Insulin Human Lispro 125 unit 05/26/25 18:30 05/26/25 18:39 Humalog 100 Units/Ml 10ml Vial (Ssi) SUBCUT 06/25/25 18:29 Not Given CONT SULEIMAN Nitroglycerin 0.4 mg 05/26/25 18:18 Nitroglycerin 0.4mg Sl Tablet SL 06/25/25 18:17 Q5M PRN Chest Pain Non-Formulary Medication 1,000 mg 05/26/25 21:00 Ranolazine PO 06/25/25 20:59 BID SULEIMAN Pantoprazole Sodium 40 mg 05/27/25 09:00 Pantoprazole 40mg Tablet PO 06/26/25 08:59 DAILY [facility] Sertraline HCl 200 mg 05/27/25 09:00 Sertraline 100mg Tablet PO 06/26/25 08:59 DAILY [facility] Sodium Chloride 8 ml 05/26/25 15:24 Sodium Chloride 0.9% 10ml Vial IV 06/25/25 15:23 NEEDED PRN dilute pepcid Sodium Chloride 10 ml 05/26/25 15:33 05/26/25 15:34 Sodium Chloride 0.9% 10ml Syr (Rad Only) IV 06/25/25 15:32 10 ml NEEDED PRN Administration Maintain IV Site Ticagrelor 90 mg 05/26/25 21:00 Ticagrelor 90mg Tablet PO 06/25/25 20:59 BID SULEIMAN Discontinued Medications Generic Name Dose Route Start Last Admin Trade Name Freq PRN Reason Stop Dose Admin Aspirin 324 mg 05/26/25 14:28 05/26/25 14:47 Aspirin 81mg Chewable Tablet PO 05/26/25 14:29 324 mg ONCE ONE Administration Enoxaparin Sodium 40 mg 05/26/25 16:34 05/26/25 16:49 Enoxaparin 40mg/0.4ml Syringe SUBCUT 05/26/25 16:35 40 mg ONCE ONE Administration Famotidine 20 mg 05/26/25 15:24 05/26/25 15:31 Famotidine 20mg/2ml Vial IV 05/26/25 15:25 20 mg ONCE ONE Administration Magnesium Sulfate 2 gm in 50 mls @ 50 mls/hr 05/26/25 15:12 05/26/25 15:31 Magnesium Sulfate 2gm/50ml Premix IV 05/26/25 16:11 50 mls/hr ONCE ONE Administration Sodium Chloride 1,000 mls @ 999 mls/hr 05/26/25 15:22 05/26/25 15:30 Sod Chlor 0.9% 1000ml Bag IV 05/26/25 16:22 999 mls/hr .Q1H1M ONE Administration Iopamidol 70 ml 05/26/25 15:33 05/26/25 15:34 Iopamidol-370 (76%);100ml Bottle IV 05/26/25 15:34 70 ml ONCE ONE Administration Morphine Sulfate 2 mg 05/26/25 15:24 05/26/25 15:30 Morphine 2mg/Ml Syringe IV 05/26/25 15:25 2 mg ONCE ONE Administration Sodium Chloride 50 ml 05/26/25 15:33 05/26/25 15:34 0.9 % Sodium Chloride 50 Ml Vial IV 05/26/25 15:34 50 ml ONCE ONE Administration ORDERS Category Date Time Status CT head/brain wo con Stat Cat Scan 05/26/25 14:28 Completed CTA Chest [CT angio chest PE protocol] Stat Cat Scan 05/26/25 15:13 Completed Cardiology Consult [Consult to Cardiology] [CONS] Cons 05/26/25 16:29 Active Routine Chest XR -- portable [XR chest portable] Stat Exams 05/26/25 14:28 Completed CBC [Complete Blood Count Auto Diff] Stat Lab 05/26/25 14:24 Completed Complete Blood Count Auto Diff AMLAB Lab 05/27/25 06:00 Ordered Comprehensive Metabolic Panel AMLAB Lab 05/27/25 06:00 Ordered Comprehensive Metabolic Panel Stat Lab 05/26/25 14:24 Completed D-Dimer Stat Lab 05/26/25 14:24 Completed Lipase Stat Lab 05/26/25 14:24 Completed Magnesium AMLAB Lab 05/27/25 06:00 Ordered Magnesium Stat Lab 05/26/25 14:24 Completed PTT [Activated Partial Thrombo Time] Stat Lab 05/26/25 14:24 Completed Trop I [Troponin I] Stat Lab 05/26/25 14:24 Completed Troponin I Q3H Lab 05/26/25 17:26 Completed Troponin I Q3H Lab 05/26/25 20:30 Ordered MDM Narrative Medical Decision Narrative: patient is a 54-year-old male presenting to the emergency department for evaluation of chest pain, shortness of breath and dizziness that started a couple days ago. Patient had an abnormal stress test and is scheduled for heart cath on Monday. He took 3 nitro today his pain improved but worsened so he came to the ED.. Patient is hemodynamically stable and nontoxic-appearing upon arrival, afebrile. Differential diagnosis includes ACS, CAD, [place], CVA, versus trauma after a fall, among others. Workup will be conducted with hematologic labs, specific imaging including CT of head and CTA of chest to rule out a PE. Initial inventions include crystalloid bolus, analgesics. Initial workup reviewed by me hematologic labs are remarkable for BUN 38 creatinine of 2. Patient's BUN and creatinine has been elevated in the past. His mag was 1.4 so this was replaced here in the ED. Imaging informally interpreted by me and remarkable for nothing acute. Formal and imaging negative for anything acute please see formal imaging reports. Upon repeat evaluation patient's pain is improved however he is still having chest pain. I talked to Dr. Ortega and he wants to admit patient so he can cath him. I talked to Loren who admitted the patient to [facility]. Patient is agreeable to admission. Also discussed with Dr. Smith previously to discussed the plan. I was consulted by the KRYSTAL, and we discussed the complexity of the problems being addressed. I approved the treatment and management plan for this patient's care in the Emergency Department, thus performing a substantive portion of the medical decision making. Ronnie Dumont MD
[2025-05-26 14:37] LABS: Hematocrit 42.4 % (42.0-52.0); Hemoglobin 14.0 g/dL (14.1-18.0); Immature Granulocytes % 0.3 %; Mean Corpuscular HGB Conc 33.0 g/dL (31.8-35.4); Mean Corpuscular Hemoglobin 28.2 pg (27.0-31.2); Mean Corpuscular Volume 85.5 fl (80-94); Nucleated Red Blood Cells % 0 %; Platelet Count 225 K/mm3 (142-424); Red Blood Count 4.96 M/mm3 (4.60-6.20); Red Cell Distribution Width-SD 42.0 fL; White Blood Count 8.8 K/mm3 (4.8-10.8)
[2025-05-26 14:45] LABS: Chloride 95 mmol/L (98-107)
[2025-05-26 14:46] LABS: Activated Partial Thrombo Time 25.1 seconds (22.8-30.6); Albumin Level 4.6 g/dl (3.5-5.0); Potassium 4.2 mmoL/L (3.5-5.1); Sodium 135 mmol/L (136-145)
[2025-05-26] MEDS: ASPIRIN 81MG CHEWABLE TABLET 324 MG PO (14:47)
[2025-05-26 14:49] LABS: Alanine Aminotransferase 29 U/L (12-78); Albumin/Globulin Ratio 1.5 (1.1-1.8); Alkaline Phosphatase 153 U/L (38-126); Anion Gap 16.2 mEq/L (5-15); Aspartate Amino Transferase 45 U/L (17-59); Bilirubin,Total 0.7 mg/dl (0.2-1.3); Blood Urea Nitrogen 38 mg/dl (9-20); Calcium 9.4 mg/dl (8.4-10.2); Carbon Dioxide 28 mmol/L (22.0-30.0); Creatinine Clearance Estimated 64 mL/min (50-200); Creatinine,Serum 2.00 mg/dl (0.66-1.25); Estimated Glomerular Filt Rate 35 ml/min (>60); GFR (African American) 42 ML/MIN (>60); Globulin 3.1 g/dL (1.3-3.2); Glucose 165 mg/dl (74-100); Lipase 62 U/L (23-300); Total Protein,Serum 7.7 g/dl (6.3-8.2)
[2025-05-26 14:50] LABS: Magnesium 1.4 mg/dl (1.6-2.3)
[2025-05-26 14:56] LABS: D-Dimer 0.75 ug/mL (0.0-0.5)
[2025-05-26 15:06] LABS: Troponin I < 0.01 ng/ml (0.00-0.034)
--- NOTE | 2025-05-26 15:13 | CT_ITS ---
FINAL REPORT TECHNIQUE: The patient was injected with IV contrast. Axial images were obtained through the chest in a PE protocol. 3-D reconstruction images were also performed. Individualized dose reduction techniques using automated exposure control or adjustment of the MA and/or KV according to patient's size were employed. CLINICAL HISTORY: Shortness of breath COMPARISON: 08/28/2023 FINDINGS: Mediastinal vasculature is adequately opacified. No pulmonary artery filling defects are identified to suggest PE. There is no aortic dissection. There is no axillary adenopathy. There is no mediastinal adenopathy. Calcified left hilar lymph node is present. The heart size is normal. There is no pericardial or pleural effusion. Limited images of the upper abdomen are unremarkable. Gallbladder is surgically absent. Mild ground-glass opacity in both lungs is probably due to mild edema or pneumonitis. IMPRESSION: No pulmonary embolus or dissection. Mild ground-glass opacity, pneumonitis versus edema. Reviewed, Interpreted and Dictated by Cricket Menon MD Transcribed by Esthela Dasilva Authenticated and [facility]
[2025-05-26] MEDS: 0.9 % SODIUM CHLORIDE 1000ML 1,000 ML 999 ML IV (15:30)
[2025-05-26] MEDS: MORPHINE 2MG/ML SYRINGE 2 MG IV (15:30)
[2025-05-26] MEDS: MAGNESIUM SULFATE IN WATER 2 GM/50 ML PIGGYBACK IV (15:31)
[2025-05-26] MEDS: FAMOTIDINE 20MG/2ML VIAL 20 MG IV (15:31)
[2025-05-26] MEDS: IOPAMIDOL-370 (76%);100ML BOTTLE 70 ML IV (15:34)
[2025-05-26] MEDS: 0.9 % SODIUM CHLORIDE 50 ML VIAL IV (15:34)
[2025-05-26] MEDS: SODIUM CHLORIDE 0.9% 10ML SYR (RAD ONLY) 10 ML IV (15:34)
--- NOTE | 2025-05-26 16:30 | PC.NURSE ---
I notified of the need for a bed to admit the pt.
--- NOTE | 2025-05-26 16:36 | EXP.HP ---
History of Present Illness *Admission Date: 05/26/25 *Reason for visit:: Chest pain *History of present illness: 54-year-old male with history of CAD, hypertension, hyperlipidemia, insulin-dependent diabetes is, CKD 3. Has been having worsening chest pain. Presented for stress test recently that was found to be abnormal. Scheduled for heart cath on 05/28. Pain is gotten progressively worse over the past 2 to 3 days. Taking nitro at home with some relief. Pain worse with exertion, better at rest. Denies shortness of breath, nausea, vomiting. Had syncopal event on 05/23. On presentation to the ER, Found to have normal white count of 8, hemoglobin 14, slight [place] with creatinine 2.0, baseline 1.3. Glucose 165. Magnesium 1.4. EKG with sinus rhythm. Medicine consulted for admission and further management of unstable angina. Cardiology consulted, planning for heart cath in the morning. Alert and oriented x 4 on interview. Stable on room air. [facility] Disclaimer: The information contained in this section may have been updated after the patient was seen, as this information can be updated by other users. Medical History SOB (shortness of breath) Involuntary movements Numbness and tingling of left arm and leg Diabetes mellitus, type 2 Peripheral arterial disease Claudication Abnormal findings on diagnostic imaging of heart and coronary circulation Blood pressure instability Elevated blood pressure reading with diagnosis of hypertension FHx: cholecystectomy Depression Anxiety Angina pectoris Hyperlipidemia Hypertension Dyspnea Coronary artery disease Surgical History Hx of spinal fusion Hx of cholecystectomy H/O right heart catheterization H/O hernia repair H/O elbow surgery H/O knee surgery Stented coronary artery Family History Mother Lupus Other Family history of diabetes mellitus type II Family history of hyperlipidemia Family history of hypertension Family history of myocardial infarction Social History Smoking Status: Former smoker alcohol intake: never current occupational status: unemployed and disabled Travel in the last 8 weeks?: None Have you lived/traveled outside US in past 30 days?: No Contact w/someone who lives/traveled outside US past 30 days?: No Exposure to someone with infectious disease in past 14 days?: No Do you have a fever (greater than 100.4 F or 38 C)?: No Have you tested positive for COVID-19?: No Exposed to someone with COVID-19 in past 14 days?: No Do you have a sore throat?: No Do you have a cough?: No Do you have any weakness?: No Are you experiencing any nausea/vomitting?: No Do you have any diarrhea?: No Are you experiencing any unusual bleeding?: No Do you have any muscle aches/pain?: No Do you have any abdominal pain?: No Are you experiencing loss of taste or smell?: No Other Medical History Have you received the Flu Vaccine for this season: No Have you received the Pneumonia Vaccine: No Review of Systems Review of Systems Review of systems (narrative): 14 point review of systems performed, pertinent positives and negatives as per HPI Meds Home Medications and Allergies Home Medications ?Medication ?Instructions ?Recorded ?Confirmed ?Type blood-glucose sensor (Dexcom G6 #1 ea 08/27/24 05/19/25 History Sensor device) blood-glucose transmitter (Dexcom #1 ea 08/27/24 05/19/25 History G6 Transmitter device) pantoprazole 40 mg tablet,delayed 40 mg PO DAILY 11/28/24 05/26/25 History release atorvastatin 80 mg tablet 80 mg PO HS 12/23/24 05/26/25 History bupropion HCl 75 mg tablet 75 mg PO BID 12/23/24 05/26/25 History gabapentin 300 mg capsule 300 mg PO HS 12/23/24 05/26/25 History insulin lispro 100 unit/mL 125 unit continuous subcutaneous 12/23/24 05/26/25 History subcutaneous solution (Humalog infusion CONT U-100 Insulin) aspirin 81 mg tablet,delayed 81 mg PO DAILY #90 tabs 01/06/25 05/26/25 Rx release sertraline 100 mg tablet 200 mg PO DAILY 01/13/25 05/26/25 History ergocalciferol (vitamin D2) 1,250 1,250 mcg PO WEEKLY 03/03/25 05/26/25 History mcg (50,000 unit) capsule folic acid 1 mg tablet 1 mg PO DAILY 03/03/25 05/26/25 History ranolazine 1,000 mg 1,000 mg PO BID #180 tabs 03/03/25 05/26/25 Rx tablet,extended release,12 hr ticagrelor 90 mg tablet (Brilinta) 90 mg PO BID #180 tabs 03/20/25 05/26/25 Rx nitroglycerin 0.4 mg sublingual 0.4 mg sublingual Q5M PRN chest 05/16/25 05/26/25 Rx tablet (Nitrostat) pain #25 tabs New Prescriptions to Start Prescriptions: Allergies Allergy/AdvReac Type Severity Reaction Status Date / Time Penicillins Allergy Unknown Verified 05/19/25 08:45 allergy reaction Exam Data for Last 24 hours Vital signs and Labs for Last 24 Hours: Temp Pulse Resp BP Pulse Ox O2 Del Method 98.4 F 89 13 207/118 H 98 Room Air 05/26/25 14:28 05/26/25 14:39 05/26/25 14:38 05/26/25 15:25 05/26/25 14:38 05/26/25 14:38 Laboratory Results - last 24 hr 05/26/25 14:24: WBC 8.8, RBC 4.96, Hgb 14.0 L, Hct 42.4, MCV 85.5, MCH 28.2, MCHC 33.0, RDW 13.5, Plt Count 225, MPV 10.1, Neut % (Auto) 69.5, Lymph % (Auto) 18.2, [place] % (Auto) 9.6 H, Eos % (Auto) 1.8, Baso % (Auto) 0.6, Neut # (Auto) 6.1, Lymph # (Auto) 1.6, [place] # (Auto) 0.8, Eos # (Auto) 0.2, Baso # (Auto) 0.1, APTT 25.1, D-Dimer 0.75 H, Sodium 135 L, Potassium 4.2, Chloride 95 L, Carbon Dioxide 28, Anion Gap 16.2 H, BUN 38 H, Creatinine 2.00 H, Estimated Creat Clear 64, Estimated GFR 35 L, Est GFR ( Amer) 42 L, Glucose 165 H, Calcium 9.4, Magnesium 1.4 L, Total Bilirubin 0.7, AST 45, ALT 29, Alkaline Phosphatase 153 H, Troponin I < 0.01, Total Protein 7.7, Albumin 4.6, Globulin 3.1, Albumin/Globulin Ratio 1.5, Lipase 62 I & O for Last 24 hours: Intake & Output 05/23/25 05/24/25 05/25/25 05/26/25 23:59 23:59 23:59 23:59 Weight 107.955 kg Constitutional Constitutional: no acute distress, obese and cooperative *Routine HEENT Exam Head: Present normocephalic Eye: Present EOMI and PERRL ENT: Present mucous membranes moist *Routine Neck Exam Neck: Present supple; Absent lymphadenopathy *Routine Respiratory Exam Respiratory: Present CTA bilaterally; Absent rhonchi, wheezes or crackles *Routine Cardiovascular Exam Cardiovascular: Present RRR *Routine Abdominal Exam Abdominal: Present soft and normoactive bowel sounds; Absent tenderness *Routine Rectal Exam Rectal:: deferred *Routine Genitalia Exam Genitalia:: deferred *Routine Extremities Exam Extremities: Absent cyanosis, clubbing or edema Comments: Bruising on left knee from fall *Routine Skin Exam Skin: Present warm; Absent rash *Routine Neurological Exam Neurological: Present alert, oriented X3 and moving all extremities; Absent altered mental status Assessment and Plan *Assessment and plan (1) Unstable angina: Status: Acute Category: Medical Code(s): I20.0 - Unstable angina (2) [place] (acute kidney injury): Status: Acute Category: Medical Code(s): N17.9 - Acute kidney failure, unspecified (3) Diabetic neuropathy: Problem Comment: On gabapentin Status: Chronic Qualifiers: Diabetes mellitus type: other specified (including RICHARD) Diabetes mellitus complication detail: diabetic polyneuropathy Qualified Code(s): E13.42 - Other specified diabetes mellitus with diabetic polyneuropathy Category: Medical Code(s): E11.40 - Type 2 diabetes mellitus with diabetic neuropathy, unspecified (4) BMI greater than 30: Status: Chronic Category: Medical (5) Diabetes mellitus: Status: Chronic Qualifiers: Diabetes mellitus type: type 2 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 transplanted heart: [place] heart Associated angina: with other forms of angina Qualified Code(s): I25.118 - Atherosclerotic heart disease of [place] coronary artery with other forms of angina pectoris Category: Medical Code(s): I25.10 - Atherosclerotic heart disease of [place] coronary artery without angina pectoris (7) Hypomagnesemia: Status: Acute Category: Medical Code(s): E83.42 - Hypomagnesemia Plan 4-year-old male with history of CAD, diabetes, CKD. Previous stenting. Preserved ejection fraction. Presented with worsening chest pain after failing stress test on 05/08. Pain is progressively worsened with exertion over the past few days. Given the unstable nature of his angina, I had discussion with ER physician about the necessity for admission. Request admission for serial troponins and cardiology evaluation. I decided to admit for monitoring overnight, further management, cardiology eval and possible heart cath in the morning. Rounds addressed as follows: CAD Unstable angina - Stress test performed 05/08. Found to have medium sized moderate reversible perfusion defect in the mid to distal anterior LV wall. EF calculated at 58% on Myoview - Cardiology consulted, patient n.p.o. at midnight for anticipated left heart cath tomorrow. - Previous heart cath with stenting to RCA and LAD on two seperate occasions. Last stent to RCA 05/2024 - Continue home medications including aspirin 81 mg daily, Lipitor 80 mg nightly, ranolazine 1000 mg twice daily, ticagrelor 90 mg twice daily - Nitro 0.4 mg sublingual as needed every 5 minutes up to 3 doses for chest pain. - Initial troponin less than 0.01. Serial troponin pending Continue Wellbutrin 75 mg twice daily and Zoloft 200 mg daily for mood Continue gabapentin 300 mg nightly for neuropathy Syncope over the weekend - Due to fall, head CT obtained showing no acute process. Did not appreciate any mass effect or hematoma on my review -Chest x-ray obtained that shows no acute infectious process per my review. EKG obtained for my review showing sinus rhythm. [place] CKD 3 -Creatinine elevated at 2, baseline 1.3. Will provide gentle hydration overnight due to anticipated contrast load in the morning. 100 cc/h for total of 750 cc. Repeat CBC, CMP, magnesium ordered for the morning. - Hemoglobin normal at 14. BUN 38. Sodium 135. Potassium 4.2. Magnesium low at 1.4, will replace per electrolyte protocol Diabetes: A1c 7.5 earlier this month. Uses insulin pump and continuous glucose monitor. Okay to continue during admission. Verified that glucose on labs in the ER correlates to his CGM. Full code Cardiac diet, n.p.o. at midnight 1 dose Lovenox 40 mg subcu
--- NOTE | 2025-05-26 16:58 | PC.NURSE ---
Report called to MALU Looney.
--- NOTE | 2025-05-26 17:40 | PC.NURSE ---
arrived by w/c from ED
--- NOTE | 2025-05-26 17:53 | PC.NURSE ---
ok to use dexcom for blood glucose readings as glucose levels correlate with lab values. ok to use insulin pump for insulin per
[2025-05-26 18:01] LABS: Troponin I < 0.01 ng/ml (0.00-0.034)
[2025-05-26] MEDS: SODIUM CHLORIDE 100 ML IV (19:40)
[2025-05-26] MEDS: PATIENT'S OWN HOME MEDICATION (Ranolazine 1,000 mg tablet extended release 12 hr) 1000 EACH PO (20:37)
[2025-05-26] MEDS: GABAPENTIN 300MG CAPSULE 300 MG PO (20:37)
[2025-05-26] MEDS: ATORVASTATIN 40MG TABLET 80 MG PO (20:37)
--- NOTE | 2025-05-26 20:45 | PC.NURSE ---
Addendum entered by Rossana Fish RN 05/27/25 06:35: At this time, the patient's glucose reading via Dexcom is 92. Addendum entered by Rossana Fish RN 05/27/25 00:06: Late Entry (for 21:00): the patient stated that his insulin pump administered 17 units of Humalog insulin, in accordance to the carbohydrate amount of his bedtime snack (baked [employer] chips were given at this time). Original Note: At this time, the patient's glucose reading via Dexcom is 100.
[2025-05-26 21:15] LABS: Troponin I < 0.01 ng/ml (0.00-0.034)
[2025-05-26] MEDS: NITROGLYCERIN 0.4MG SL TABLET 0.4 MG SL ×3 (22:20→22:30)
--- NOTE | 2025-05-26 22:50 | ECG_ITS ---
APPROVED REPORT Exam: Resting ECG HR:78 bpm ECG Measurements Heart Rate 78 AXES TN 176 P -3 QRSd 106 QRS 114 QT 390 T 13 QTc 423 Conclusion SINUS RHYTHM PATTERN CONSISTENT WITH PULMONARY DISEASE POSSIBLE RIGHT VENTRICULAR HYPERTROPHY [SOME/ALL OF: PROMINENT R IN V1, LATE TRANSITION, RAD, RUSS, SSS] ABNORMAL ECG UNCONFIRMED REPORT Electronically signed by : Jose Hickman MD 05/28/2025 08:13:41
--- NOTE | 2025-05-26 23:00 | PC.NURSE ---
Addendum entered by Rossana Fish RN 05/27/25 05:17: Troponin trends < 0.01. Addendum entered by Rossana Fish RN 05/27/25 05:05: Patient had both wakeful periods and resting periods (eyes closed, respirations even/unlabored) throughout the night. He continues to report having tightness in his chest, but remains without any pain since most recent reassessment (post-administration of morphine). No further complaints of nausea at this time as well, previously relieved by zofran. Scheduled medications (except for Wellbutrin due to unavailability in OMNIs) were administered per JAN. Normal saline (750 mL only) infusion was completed during this shift. Patient has been using the urinal at the bedside for voiding needs; urine output measured/documented accordingly. Patient ambulates independently at baseline, standby assistance + supervision implemented due to history of syncopal episodes, a prior fall at home, and ongoing reports of dizziness during movement. He has remained NPO since midnight pending his cardiac procedure later this morning. Glucose checks previously approved to be taken via Dexcom; automatic insulin pump in sync with patient for appropriate coverage. Auscultation of heart, lungs, and bowels within normal findings. On telemetry. At this time, the patient continues to rest in bed without any apparent distress. Bed alarm is on. Call light within reach. Addendum entered by Rossana Fish RN 05/27/25 03:45: After resolving the patient's hypoglycemic episode (03:20), the patient stated that he was starting to have severe chest pain again, described as pressure and tight. He stated that the pain would occasionally radiate upwards, ascending the left side of his neck. Vital sign assessments were taken at 03:22 (see documentation). Second occurrence was also abrupt, random in timing for him. A second round of sublingual nitroglycerin tablets were administered, starting at 03:25 per JAN. Three doses were given - every 5 minutes - in total. The patient was also complaining of feeling nauseous. Once more, the patient stated that the nitroglycerin tablets did help, but they did not fully relieve the chest pain. Chest pain currently remains moderate, rated as a level 5 by the patient. Yuri Ortega MD was paged and notified about the patient's second severe chest pain episode and nausea complaint; interventions were requested. Verbal orders for PRN zofran and a one time dose of morphine were obtained; orders will be faxed STAT to the overnight pharmacy and administered as appropriately per MAR. Original Note: At approximately 22:15, the patient stated that he was having severe chest pain (level 7), described as pressure and squeezing on his chest. This occurrence was reported as abrupt for him. Sublingual nitroglycerin tablets were administered, starting at 22:20 per MAR. Three doses were given - every 5 minutes - in total. The patient reported some relief of his chest pain after each dose, starting from a level 7 (prior to first dose), to a level 5 (prior to second dose), and then a level 4 (prior to third dose). After the third dose, the patient stated that the nitroglycerin tablets did help, but they did not fully relieve his pain. He continued to rate it as moderate. An EKG was performed at 22:50; unofficial report was relayed to Yuri Ortega MD (paged at 22:55). He was also notified about the previous nitroglycerin administrations and the patient's moderate level of remaining chest pain. A request for an additional pain medication was made; Yuri Ortega MD entered a one time dose of intravenous morphine, to be administered per JAN. Vital sign assessments were taken prior to the administration of morphine (see documentation for 23:10). Education was provided to the patient about potential side effects (lightheadedness, hypotension, etc.) after receiving nitroglycerin and morphine; the patient verbalized an understanding of the side effects, to sit/stand up slowly, request nursing staff for supervision during any ambulation, and to report any further episodes of severe chest pain or extreme dizziness to nursing staff. The patient is currently resting in bed without any new needs vocalized. Bed alarm is on. Call light within reach.
[2025-05-26] MEDS: MORPHINE 4MG/ML SYRINGE 4 MG IV (23:05)
[2025-05-27] VITALS (19 sets, daily range): BP systolic 91–156; BP diastolic 51–82; PULSE 69–92; RESP 16–20; TEMP 36.3–36.6; O2SAT 90–100; BMI 30.7
--- NOTE | 2025-05-27 02:57 | PC.NURSE ---
Addendum entered by Rossana Fish RN 05/27/25 03:22: At 03:20, the patient's glucose reading via Dexcom was 192, post-administration of the dextrose injection. Original Note: At this time, the patient reported that his glucose reading via Dexcom had dropped to 53. Patient has remained NPO since midnight. Yuri Ortega MD was paged for new interventions to increase the patient's glucose level; patient's current NPO diet status was relayed to Yuri Ortega MD as well. A verbal order for 50% Dextrose Injection 50 mL IVP once was obtained; order was faxed STAT to the overnight pharmacy. Glucose reading to be followed-up within 15 minutes, post-administration of the dextrose injection per JAN.
[2025-05-27] MEDS: DEXTROSE 50% 50ML SYRINGE (CRASH CART) 50 ML IV (03:05)
[2025-05-27] MEDS: NITROGLYCERIN 0.4MG SL TABLET 0.4 MG SL ×3 (03:25→03:35)
[2025-05-27] MEDS: ONDANSETRON 4MG/2ML VIAL 4 MG IV (03:35)
[2025-05-27] MEDS: MORPHINE 4MG/ML SYRINGE 4 MG IV (03:45)
[2025-05-27 06:31] LABS: Hematocrit 42.1 % (42.0-52.0); Hemoglobin 13.1 g/dL (14.1-18.0); Immature Granulocytes % 0.4 %; Mean Corpuscular HGB Conc 31.1 g/dL (31.8-35.4); Mean Corpuscular Hemoglobin 27.2 pg (27.0-31.2); Mean Corpuscular Volume 87.5 fl (80-94); Nucleated Red Blood Cells % 0 %; Platelet Count 167 K/mm3 (142-424); Red Blood Count 4.81 M/mm3 (4.60-6.20); Red Cell Distribution Width-SD 43.8 fL; White Blood Count 7.7 K/mm3 (4.8-10.8)
[2025-05-27 06:47] LABS: Alanine Aminotransferase 24 U/L (12-78); Albumin Level 4.0 g/dl (3.5-5.0); Albumin/Globulin Ratio 1.4 (1.1-1.8); Alkaline Phosphatase 127 U/L (38-126); Anion Gap 12.4 mEq/L (5-15); Aspartate Amino Transferase 40 U/L (17-59); Bilirubin,Total 0.7 mg/dl (0.2-1.3); Blood Urea Nitrogen 30 mg/dl (9-20); Calcium 9.5 mg/dl (8.4-10.2); Carbon Dioxide 27 mmol/L (22.0-30.0); Chloride 101 mmol/L (98-107); Creatinine Clearance Estimated 93 mL/min (50-200); Creatinine,Serum 1.40 mg/dl (0.66-1.25); Estimated Glomerular Filt Rate 53 ml/min (>60); GFR (African American) 64 ML/MIN (>60); Globulin 2.8 g/dL (1.3-3.2); Glucose 120 mg/dl (74-100); Magnesium 1.8 mg/dl (1.6-2.3); Potassium 4.4 mmoL/L (3.5-5.1); Sodium 136 mmol/L (136-145); Total Protein,Serum 6.8 g/dl (6.3-8.2)
--- NOTE | 2025-05-27 08:21 | PC.NURSE ---
MALU Pardo notified of patients blood pressure /.
--- NOTE | 2025-05-27 08:55 | CA_ITS ---
APPROVED REPORT EXAM: Comprehensive 2D, Doppler, and color-flow Echocardiogram Straight Line Press Setter: Loren Hutson RT(R) Ht: 6 ft 2 in Wt: 239lbs BSA: 2.34 BP: 207/118 mmHg Indications: angina, ex smoker, CAD, Diabetes 2D Dimensions LVEF (Tsang's) 53.30 % M: 52 - 72 LV Volume 81.00 mL M: 62 - 150 LV Volume Index 34.5 mL/m2 M: 34 - 74 EF AP4 72.40 % EF AP2 31.9 % EF BP 53.3 % GL Strain -13.4 % M-Mode Dimensions RVDd 3.29 cm (0.9-2.6) LA Diam 3.53 cm (1.9-4.0) LVDd 4.40 cm (3.5-5.7) LVDs 3.33 cm (3.5-5.7) IVSd 0.86 cm (0.6-1.1) PWd 0.89 cm (0.6-1.1) EF (Teich) 48.60% FS 24.30% EDV (Teich) 87.70 mL TAPSE 1.93 (<1.7) ESV (Teich) 45.10 mL LV Diastology E Decel Time 187 (160-240 msec) E/A Ratio 0.95 Mitral Valve MV A Velocity 63.0 (40-130 cm/s) E/A Ratio 0.95 Left Ventricle The left ventricle is normal size. The left ventricular systolic function is normal. The left ventricular ejection fraction is within the normal range. There is increased LV wall thickness. There is normal LV segmental wall motion. The left ventricular diastolic function is normal. LVEF is 55%. Right Ventricle The right ventricle is normal size. The right ventricular systolic function is normal. Atria The left atrium size is normal. The right atrium size is normal. There is no Doppler evidence of interatrial shunt. Aortic Valve The aortic valve opens well. There is no aortic valvular stenosis. No aortic regurgitation is present. Mitral Valve The mitral valve is normal in structure. No evidence of mitral valve stenosis. Trace mitral regurgitation. Tricuspid Valve Tricuspid valve is grossly normal in structure and function. Trace tricuspid regurgitation. There is insufficient TR jet to estimate RVSP. Pulmonic Valve The pulmonary valve is normal in structure. Trace pulmonic regurgitation. Great Vessels The aortic root is normal in size. IVC is normal in size and collapses >50% with inspiration. Pericardium There is no pericardial effusion. Other Information Study Quality: Fair Conclusion Normal biventricular systolic function. No significant valvular stenosis or regurgitation. Electronically signed by : Tanika Quintanilla MD 05/28/2025 00:07:34
[2025-05-27] MEDS: SERTRALINE 100MG TABLET 200 MG PO (08:59)
[2025-05-27] MEDS: RANOLAZINE 500MG ER TABLET 1000 MG PO (09:00)
--- NOTE | 2025-05-27 09:52 | EXP.CARD.CON ---
History of Present Illness History of Present Illness Consult date: 05/27/25 Requesting physician: Olaf Johnson Consult reason: chest pain Chief complaint: chest pain History of present illness: Mr. Delgado is a 54-year-old white male with past medical history of coronary artery disease s/p multiple stents, hypertension, hyperlipidemia, peripheral artery disease and diabetes mellitus who presented to emergency department with worsening chest pain and shortness of air since Monday. Patient had an abnormal Lexiscan this month and was scheduled for a left heart catheterization tomorrow but reports pain got so intense last night he had to come on to the ER. EKG upon arrival shows sinus rhythm at a rate of 81 with borderline left axis deviation and was negative for STEMI. Labs were as follows: WBC 7.7, hemoglobin 13.1, sodium 136, potassium 4.4, and creatinine 2 (baseline 1.3). Serial troponins were negative. Chest CTA was negative for PE or dissection but did show mild bilateral ground glass opacity probably due to pneumonitis versus mild edema. Patient was admitted for unstable angina and for evaluation by cardiology today. This morning he reports he continues to have mild chest discomfort but it is better than it was yesterday. [facility] Disclaimer: The information contained in this section may have been updated after the patient was seen, as this information can be updated by other users. Medical History SOB (shortness of breath) Involuntary movements Numbness and tingling of left arm and leg Diabetes mellitus, type 2 Peripheral arterial disease Claudication Abnormal findings on diagnostic imaging of heart and coronary circulation Blood pressure instability Elevated blood pressure reading with diagnosis of hypertension FHx: cholecystectomy Depression Anxiety Angina pectoris Hyperlipidemia Hypertension Dyspnea Coronary artery disease Surgical History Hx of spinal fusion Hx of cholecystectomy H/O right heart catheterization H/O hernia repair H/O elbow surgery H/O knee surgery Stented coronary artery Family History Mother Lupus Other Family history of diabetes mellitus type II Family history of hyperlipidemia Family history of hypertension Family history of myocardial infarction Social History Smoking Status: Former smoker alcohol intake: never current occupational status: unemployed and disabled Travel in the last 8 weeks?: None Have you lived/traveled outside [place] in past 30 days?: No Contact w/someone who lives/traveled outside [place] past 30 days?: No Exposure to someone with infectious disease in past 14 days?: No Do you have a fever (greater than 100.4 F or 38 C)?: No Have you tested positive for COVID-19?: No Exposed to someone with COVID-19 in past 14 days?: No Do you have a sore throat?: No Do you have a cough?: No Do you have any weakness?: No Are you experiencing any nausea/vomitting?: No Do you have any diarrhea?: No Are you experiencing any unusual bleeding?: No Do you have any muscle aches/pain?: No Do you have any abdominal pain?: No Are you experiencing loss of taste or smell?: No Review of Systems Review of Systems Review of systems:: pertinent systems reviewed and negative unless documented below Constitutional Constitutional: Reports system reviewed and no additional complaints, except as documented *Cardiovascular Cardiovascular: Reports chest pain and Reports dyspnea *Respiratory Respiratory: Reports system reviewed and no additional complaints, except as documented and Reports dyspnea *Gastrointestinal Gastrointestinal: Reports system reviewed and no additional complaints, except as documented *Neurologic Neurologic: Reports system reviewed and no additional complaints, except as documented and Denies confusion Psychiatric Psychiatric: Reports system reviewed and no additional complaints, except as documented and Denies confusion Exam Data for Last 24 hours Vital signs and Labs for Last 24 Hours: Temp Pulse Resp BP Pulse Ox O2 Del Method 97.4 F L 69 16 102/60 L 94 L Room Air 05/27/25 08:00 05/27/25 09:02 05/27/25 08:00 05/27/25 09:02 05/27/25 08:00 05/27/25 08:00 Laboratory Results - last 24 hr 05/26/25 14:24: WBC 8.8, RBC 4.96, Hgb 14.0 L, Hct 42.4, MCV 85.5, MCH 28.2, MCHC 33.0, RDW 13.5, Plt Count 225, MPV 10.1, Neut % (Auto) 69.5, Lymph % (Auto) 18.2, [place] % (Auto) 9.6 H, Eos % (Auto) 1.8, Baso % (Auto) 0.6, Neut # (Auto) 6.1, Lymph # (Auto) 1.6, [place] # (Auto) 0.8, Eos # (Auto) 0.2, Baso # (Auto) 0.1, APTT 25.1, D-Dimer 0.75 H, Sodium 135 L, Potassium 4.2, Chloride 95 L, Carbon Dioxide 28, Anion Gap 16.2 H, BUN 38 H, Creatinine 2.00 H, Estimated Creat Clear 64, Estimated GFR 35 L, Est GFR ( Amer) 42 L, Glucose 165 H, Calcium 9.4, Magnesium 1.4 L, Total Bilirubin 0.7, AST 45, ALT 29, Alkaline Phosphatase 153 H, Troponin I < 0.01, Total Protein 7.7, Albumin 4.6, Globulin 3.1, Albumin/Globulin Ratio 1.5, Lipase 62 05/26/25 17:26: Troponin I < 0.01 05/26/25 20:47: Troponin I < 0.01 05/27/25 05:23: WBC 7.7, RBC 4.81, Hgb 13.1 L, Hct 42.1, MCV 87.5, MCH 27.2, MCHC 31.1 L, RDW 13.7, Plt Count 167 D, MPV 10.4, Neut % (Auto) 72.9, Lymph % (Auto) 15.6, [place] % (Auto) 8.6, Eos % (Auto) 2.0, Baso % (Auto) 0.5, Neut # (Auto) 5.6, Lymph # (Auto) 1.2, [place] # (Auto) 0.7, Eos # (Auto) 0.2, Baso # (Auto) 0.0, Sodium 136, Potassium 4.4, Chloride 101, Carbon Dioxide 27, Anion Gap 12.4, BUN 30 H, Creatinine 1.40 H D, Estimated Creat Clear 93, Estimated GFR 53 L, Est GFR ( Amer) 64 D, Glucose 120 H D, Calcium 9.5, Magnesium 1.8 D, Total Bilirubin 0.7, AST 40, ALT 24, Alkaline Phosphatase 127 H, Total Protein 6.8, Albumin 4.0 D, Globulin 2.8, Albumin/Globulin Ratio 1.4 I & O for Last 24 hours: Intake & Output 05/24/25 05/25/25 05/26/25 07/01/25 23:59 23:59 23:59 23:59 Intake Total 120 / 880 760 / 760 Output Total 1230 / 1230 325 / 325 Balance -1110 / -350 435 / 435 Weight 238 lb 239 lb 14.4 oz Constitutional Constitutional: no acute distress *Routine Respiratory Exam Respiratory: Present CTA bilaterally and symmetric chest movement *Routine Cardiovascular Exam Cardiovascular: Present RRR, Normal S1 and Normal S2 *Routine Abdominal Exam Abdominal: Present soft and normoactive bowel sounds; Absent tenderness *Routine Extremities Exam Extremities: Present full ROM and normal capillary refill; Absent edema *Routine Skin Exam Skin: Present intact, dry and warm Detailed Neck Exam: Thyroids Thyroid: Absent bruit Meds Home Medications and Allergies Home Medications ?Medication ?Instructions ?Recorded ?Confirmed ?Type blood-glucose sensor (Dexcom G6 #1 ea 08/27/24 05/26/25 History Sensor device) blood-glucose transmitter (Dexcom #1 ea 08/27/24 05/26/25 History G6 Transmitter device) pantoprazole 40 mg tablet,delayed 40 mg PO DAILY 11/28/24 05/26/25 History release atorvastatin 80 mg tablet 80 mg PO HS 12/23/24 05/26/25 History bupropion HCl 75 mg tablet 75 mg PO BID 12/23/24 05/26/25 History gabapentin 300 mg capsule 300 mg PO HS 12/23/24 05/26/25 History insulin lispro 100 unit/mL 125 unit continuous subcutaneous 12/23/24 05/26/25 History subcutaneous solution (Humalog infusion CONT U-100 Insulin) aspirin 81 mg tablet,delayed 81 mg PO DAILY #90 tabs 01/06/25 05/26/25 Rx release sertraline 100 mg tablet 200 mg PO DAILY 01/13/25 05/26/25 History ergocalciferol (vitamin D2) 1,250 1,250 mcg PO WEEKLY 03/03/25 05/26/25 History mcg (50,000 unit) capsule folic acid 1 mg tablet 1 mg PO DAILY 03/03/25 05/26/25 History ranolazine 1,000 mg 1,000 mg PO BID #180 tabs 03/03/25 05/26/25 Rx tablet,extended release,12 hr ticagrelor 90 mg tablet (Brilinta) 90 mg PO BID #180 tabs 03/20/25 05/26/25 Rx nitroglycerin 0.4 mg sublingual 0.4 mg sublingual Q5M PRN chest 05/16/25 05/26/25 Rx tablet (Nitrostat) pain #25 tabs New Prescriptions to Start Prescriptions: Allergies Allergy/AdvReac Type Severity Reaction Status Date / Time Penicillins Allergy Unknown Verified 05/19/25 08:45 allergy reaction Assessment and Plan *Assessment and plan (1) Unstable angina: Status: Acute Category: Medical Code(s): I20.0 - Unstable angina (2) Coronary artery disease: Status: Acute Qualifiers: Coronary Disease-Associated Artery/Lesion type: [place] artery [place] vs. transplanted heart: [place] heart Associated angina: with other forms of angina Qualified Code(s): I25.118 - Atherosclerotic heart disease of [place] coronary artery with other forms of angina pectoris Category: Medical Code(s): I25.10 - Atherosclerotic heart disease of [place] coronary artery without angina pectoris (3) Hyperlipidemia: Status: Chronic Qualifiers: Hyperlipidemia type: unspecified Qualified Code(s): E78.5 - Hyperlipidemia, unspecified Category: Medical Code(s): E78.5 - Hyperlipidemia, unspecified (4) Chronic kidney disease: Status: Acute Category: Medical Code(s): N18.9 - Chronic kidney disease, unspecified Plan History of coronary artery disease History of multiple LEONID Unstable angina Serial troponins negative EKG negative for STEMI Abnormal Chey Myoview April 2025 Progressively worsening chest pain Echo pending Will proceed with left heart catheterization today. Discussed risk versus benefits with patient he is agreeable to proceed. Continue aspirin 81 mg p.o. daily and atorvastatin 80 mg p.o. daily. Hyperlipidemia LDL goal less than 55, LDL is 54. Continue atorvastatin Chronic kidney disease Creatinine 2 on admission, is 1.4 today, baseline appears to be 1.3-1.5. CV summary 05/27/2025: Patient is agreeable to proceed with left heart catheterization today. Echo is pending.
--- NOTE | 2025-05-27 10:04 | IR_ITS ---
APPROVED REPORT Patient Location: Inpatient PROCEDURES Selective coronary angiogram Drug-eluting stent deployment to the ostial right coronary artery extending into the proximal right coronary Drug-eluting stent deployment to the mid circumflex artery INDICATION Unstable angina, Coronary artery disease Informed consent was obtained prior to the procedure. COMPLICATIONS NONE Estimated Blood Loss: LESS THAN 10 ML TECHNIQUE One percent lidocaine used to anesthetize the right anterior aspect of the wrist. The right radial artery was accessed via the Seldinger technique. A 6 [place] sheath was placed in the right radial artery. 2.5 mg of Verapamil, 800 mcg of nitroglycerin, 1mg Lidocaine and 5000 U Heparin were given through the arterial sheath. The JL3 catheter was also used to perform selective coronary angiogram. At the end of the diagnostic angiogram therapeutic Was administered giving a therapeutic ACT and the guide catheter was placed in the right coronary followed by Choice PT extra-support wire. A 3.5 x 38 mm [place] frontier stent was placed in the proximal to mid right coronary 24 booker reducing the stenosis. An additional 3.5 x 18 mm [place] frontier stent was placed proximal to the first and extending back into the ostium and in the right coronary cusp and deployed at 26 booker. Excellent angiograph results were obtained with MICHEL-3 flow being present before and after the procedure. Following this the guide catheter was placed in the left main artery followed by Choice PT extra-support wire placed in the circumflex artery. A 3.5 x 26 mm was deployed at 16 booker reducing the stenosis to 0% MICHEL-3 flow was present before and after the procedure. Within the procedure the apparatus was removed the sheath was removed and hemostasis was achieved using TR banding patient was transferred to the postop porting in stable condition ANGIOGRAPHIC RESULTS The left main artery Normal The left anterior descending artery Has a stent in the proximal to mid segment. The proximal segment is widely patent there is a 40% concentric mid vessel in-stent restenosis. There is excellent distal transitioning. Appears to be a first diagonal artery which appears ostially occluded The circumflex artery Is nondominant yet still large-caliber vessel with a proximal 50% followed by concentric 70% stenosis prior to 2 large caliber obtuse marginal arteries The right coronary artery Is dominant and has a proximal 70% followed by mid vessel 60% stenosis followed by stents in the mid to distal segment which are widely patent with minimal in-stent restenosis The DUFF ventriculogram reveals Not performed The left ventricular end-diastolic pressure Not measured IMPRESSION Coronary artery disease as described above Successful stenting of the ostial proximal right coronary severe disease reduced to 0% with 2 contiguous drug-eluting stents Successful stenting of the proximal to mid circumflex artery severe disease reduced to 0% with 1 drug-eluting stent PLAN 1. Dual antiplatelet therapy 2. Cardiac rehabilitation 3. LDL less than 55 to be achieved with high intensity statin 4. Avoidance of tobacco products 5. Risk factor modification Electronically signed by : Cesario Ortega MD 05/27/2025 13:00:10
--- NOTE | 2025-05-27 10:05 | PC.NURSE ---
Patient is in gown and shaved for heart cath.
[2025-05-27] MEDS: 0.9 % SODIUM CHLORIDE 500 ML 25 ML IV (12:28)
[2025-05-27] MEDS: LIDOCAINE 1% 10ML MDV 10 ML IJ (12:28)
[2025-05-27] MEDS: VERAPAMIL 2.5MG/ML 2ML VIAL 2.5 MG IV (12:28)
[2025-05-27] MEDS: HEPARIN 1,000 UNITS/ML 10ML VIAL (CATH LAB) 5000 UNIT IV ×2 (12:28→12:51)
[2025-05-27] MEDS: HEPARIN 1,000 UNITS/500ML NS (CATH LAB) 3000 UNIT IV (12:28)
[2025-05-27] MEDS: NITROGLYCERIN 800MCG/8ML SYR (CATH LAB) 800 MCG IA (12:29)
[2025-05-27] MEDS: MIDAZOLAM HCL 1MG/ML 5ML VIAL 1 MG IV (12:57)
[2025-05-27] MEDS: FENTANYL 100MCG/2ML VIAL 50 MCG IV (12:58)
[2025-05-27] MEDS: IOPAMIDOL-370 (76%);100ML BOTTLE 90 ML IV (14:01)
[2025-05-27 14:03] LABS: CATHL Activated Clotting Time > 400 SEC (74-125)
--- NOTE | 2025-05-27 14:17 | EXP.DC.SUM ---
General Admission date:: 05/26/25 Discharge date: 05/27/25 HPI HPI HPI: 54-year-old male with history of CAD, hypertension, hyperlipidemia, insulin-dependent diabetes is, CKD 3. Has been having worsening chest pain. Presented for stress test recently that was found to be abnormal. Scheduled for heart cath on 05/28. Pain is gotten progressively worse over the past 2 to 3 days. Taking nitro at home with some relief. Pain worse with exertion, better at rest. Denies shortness of breath, nausea, vomiting. Had syncopal event on 05/23. On presentation to the ER, Found to have normal white count of 8, hemoglobin 14, slight [place] with creatinine 2.0, baseline 1.3. Glucose 165. Magnesium 1.4. EKG with sinus rhythm. Medicine consulted for admission and further management of unstable angina. Cardiology consulted, planning for heart cath in the morning. Alert and oriented x 4 on interview. Stable on room air. Hospital Course Hospital Course Hospital Course: 54-year-old male with history of CAD, diabetes, CKD. Previous stenting. Preserved ejection fraction. Presented with worsening chest pain after failing stress test on 05/08. Pain is progressively worsened with exertion over the past few days. Given the unstable nature of his angina, I had discussion with ER physician about the necessity for admission. Request admission for serial troponins and cardiology evaluation. I decided to admit for monitoring overnight, further management, cardiology eval and possible heart cath in the morning. Heart cath performed. Tolerated procedure well. Stable discharge home. Follow-up as outpatient with cardiology. Problems addressed as follows CAD Unstable angina - Stress test performed 05/08. Found to have medium sized moderate reversible perfusion defect in the mid to distal anterior LV wall. EF calculated at 58% on Myoview. Was planning for heart cath in the coming days but has had worsening chest pain. Admitted for monitoring. Taken for heart cath in the morning. Previous heart cath with stenting to RCA and LAD on 2 separate occasions. Last stent to RCA 05/2024. Heart cath this admission with successful stenting of the ostial proximal RCA with 2 continuous stents and stenting of the proximal to mid circumflex artery with 1 stent. Continue aspirin 81 mg daily, Lipitor 80 mg nightly, ranolazine at 1000 mg twice daily and ticagrelor 90 mg twice daily. Continue Wellbutrin 75 mg twice daily and Zoloft 200 mg daily for mood Continue gabapentin 300 mg nightly for neuropathy Syncope over the weekend - Due to fall, head CT obtained showing no acute process. Did not appreciate any mass effect or hematoma on my review. Chest x-ray obtained that shows no acute infectious process per my review. EKG obtained for my review showing sinus rhythm. [place] CKD 3 -Creatinine elevated at 2, baseline 1.3. Responded to gentle hydration. Improved to 1.4 by morning of discharge. Magnesium and potassium within acceptable range. Magnesium 1.8 and potassium 4.4 on morning of discharge. White count normal at 7.7 and hemoglobin 13 Diabetes: A1c 7.5 earlier this month. Uses insulin pump and continuous glucose monitor. Monitor glucose using CGM during admission. Verified pump doses with nursing. Total time spent on discharge 32 minutes in counseling, documentation, chart review, and direct care with patient. Exam Data for Last 24 hours Vital signs and Labs for Last 24 Hours: Temp Pulse Resp BP Pulse Ox O2 Del Method 97.7 F 75 18 106/68 L 91 L Room Air 05/27/25 13:30 05/27/25 14:00 05/27/25 14:00 05/27/25 14:00 05/27/25 14:00 05/27/25 14:00 Laboratory Results - last 24 hr 05/26/25 14:24: WBC 8.8, RBC 4.96, Hgb 14.0 L, Hct 42.4, MCV 85.5, MCH 28.2, MCHC 33.0, RDW 13.5, Plt Count 225, MPV 10.1, Neut % (Auto) 69.5, Lymph % (Auto) 18.2, [place] % (Auto) 9.6 H, Eos % (Auto) 1.8, Baso % (Auto) 0.6, Neut # (Auto) 6.1, Lymph # (Auto) 1.6, [place] # (Auto) 0.8, Eos # (Auto) 0.2, Baso # (Auto) 0.1, APTT 25.1, D-Dimer 0.75 H, Sodium 135 L, Potassium 4.2, Chloride 95 L, Carbon Dioxide 28, Anion Gap 16.2 H, BUN 38 H, Creatinine 2.00 H, Estimated Creat Clear 64, Estimated GFR 35 L, Est GFR ( Amer) 42 L, Glucose 165 H, Calcium 9.4, Magnesium 1.4 L, Total Bilirubin 0.7, AST 45, ALT 29, Alkaline Phosphatase 153 H, Troponin I < 0.01, Total Protein 7.7, Albumin 4.6, Globulin 3.1, Albumin/Globulin Ratio 1.5, Lipase 62 05/26/25 17:26: Troponin I < 0.01 05/26/25 20:47: Troponin I < 0.01 05/27/25 05:23: WBC 7.7, RBC 4.81, Hgb 13.1 L, Hct 42.1, MCV 87.5, MCH 27.2, MCHC 31.1 L, RDW 13.7, Plt Count 167 D, MPV 10.4, Neut % (Auto) 72.9, Lymph % (Auto) 15.6, [place] % (Auto) 8.6, Eos % (Auto) 2.0, Baso % (Auto) 0.5, Neut # (Auto) 5.6, Lymph # (Auto) 1.2, [place] # (Auto) 0.7, Eos # (Auto) 0.2, Baso # (Auto) 0.0, Sodium 136, Potassium 4.4, Chloride 101, Carbon Dioxide 27, Anion Gap 12.4, BUN 30 H, Creatinine 1.40 H D, Estimated Creat Clear 93, Estimated GFR 53 L, Est GFR ( Amer) 64 D, Glucose 120 H D, Calcium 9.5, Magnesium 1.8 D, Total Bilirubin 0.7, AST 40, ALT 24, Alkaline Phosphatase 127 H, Total Protein 6.8, Albumin 4.0 D, Globulin 2.8, Albumin/Globulin Ratio 1.4 05/27/25 12:36: Activated Clotting Time > 400 H* I & O for Last 24 hours: Intake & Output 05/24/25 05/25/25 05/26/25 05/27/25 23:59 23:59 23:59 23:59 Intake Total 120 / 880 760 / 760 Output Total 1230 / 1230 325 / 325 Balance -1110 / -350 435 / 435 Weight 107.955 kg 108.817 kg Constitutional Constitutional: no acute distress, obese and cooperative *Routine HEENT Exam Head: Present normocephalic Eye: Present EOMI and PERRL ENT: Present mucous membranes moist *Routine Neck Exam Neck: Present supple; Absent lymphadenopathy *Routine Respiratory Exam Respiratory: Present CTA bilaterally; Absent rhonchi, wheezes or crackles *Routine Cardiovascular Exam Cardiovascular: Present RRR *Routine Abdominal Exam Abdominal: Present soft and normoactive bowel sounds; Absent tenderness *Routine Rectal Exam Patient deferred: visual exam *Routine Exam Patient deferred: penile exam *Routine Extremities Exam Extremities: Absent cyanosis, clubbing or edema *Routine Skin Exam Skin: Present intact and warm; Absent rash *Routine Neurological Exam Neurological: Present alert, oriented X3 and moving all extremities; Absent altered mental status Results Data Completed and Pending Labs on day of discharge: Labs from last 24 hours 05/27/25 05/27/25 05/26/25 12:36 05:23 20:47 WBC 7.7 RBC 4.81 Hgb 13.1 L Hct 42.1 MCV 87.5 MCH 27.2 MCHC 31.1 L RDW 13.7 Plt Count 167 D MPV 10.4 Neut % (Auto) 72.9 Lymph % (Auto) 15.6 [place] % (Auto) 8.6 Eos % (Auto) 2.0 Baso % (Auto) 0.5 Neut # (Auto) 5.6 Lymph # (Auto) 1.2 [place] # (Auto) 0.7 Eos # (Auto) 0.2 Baso # (Auto) 0.0 APTT Activated Clotting Time > 400 H* D-Dimer Sodium 136 Potassium 4.4 Chloride 101 Carbon Dioxide 27 Anion Gap 12.4 BUN 30 H Creatinine 1.40 H D Estimated Creat Clear 93 Estimated GFR 53 L Est GFR ( Amer) 64 D Glucose 120 H D Calcium 9.5 Magnesium 1.8 D Total Bilirubin 0.7 AST 40 ALT 24 Alkaline Phosphatase 127 H Troponin I < 0.01 Total Protein 6.8 Albumin 4.0 D Globulin 2.8 Albumin/Globulin Ratio 1.4 Lipase 05/26/25 05/26/25 17:26 14:24 WBC 8.8 RBC 4.96 Hgb 14.0 L Hct 42.4 MCV 85.5 MCH 28.2 MCHC 33.0 RDW 13.5 Plt Count 225 MPV 10.1 Neut % (Auto) 69.5 Lymph % (Auto) 18.2 [place] % (Auto) 9.6 H Eos % (Auto) 1.8 Baso % (Auto) 0.6 Neut # (Auto) 6.1 Lymph # (Auto) 1.6 [place] # (Auto) 0.8 Eos # (Auto) 0.2 Baso # (Auto) 0.1 APTT 25.1 Activated Clotting Time D-Dimer 0.75 H Sodium 135 L Potassium 4.2 Chloride 95 L Carbon Dioxide 28 Anion Gap 16.2 H BUN 38 H Creatinine 2.00 H Estimated Creat Clear 64 Estimated GFR 35 L Est GFR ( Amer) 42 L Glucose 165 H Calcium 9.4 Magnesium 1.4 L Total Bilirubin 0.7 AST 45 ALT 29 Alkaline Phosphatase 153 H Troponin I < 0.01 < 0.01 Total Protein 7.7 Albumin 4.6 Globulin 3.1 Albumin/Globulin Ratio 1.5 Lipase 62 DS: Diagnosis Discharge Diagnosis (1) Unstable angina: Status: Acute Code(s): I20.0 - Unstable angina (2) Coronary artery disease: Status: Acute Code(s): I25.10 - Atherosclerotic heart disease of [place] coronary artery without angina pectoris Qualifiers: Associated angina: with other forms of angina Coronary Disease-Associated Artery/Lesion type: [place] artery [place] vs. transplanted heart: solomon heart Qualified Code(s): I25.118 - Atherosclerotic heart disease of solomon coronary artery with other forms of angina pectoris (3) Hyperlipidemia: Status: Chronic Code(s): E78.5 - Hyperlipidemia, unspecified Qualifiers: Hyperlipidemia type: unspecified Qualified Code(s): E78.5 - Hyperlipidemia, unspecified (4) Chronic kidney disease: Status: Acute Code(s): N18.9 - Chronic kidney disease, unspecified Meds Home Medications and Allergies Home Medications ?Medication ?Instructions ?Recorded ?Confirmed ?Type blood-glucose sensor (Dexcom G6 #1 ea 08/27/24 05/26/25 History Sensor device) blood-glucose transmitter (Dexcom #1 ea 08/27/24 05/26/25 History G6 Transmitter device) pantoprazole 40 mg tablet,delayed 40 mg PO DAILY 11/28/24 05/26/25 History release atorvastatin 80 mg tablet 80 mg PO HS 12/23/24 05/26/25 History bupropion HCl 75 mg tablet 75 mg PO BID 12/23/24 05/26/25 History gabapentin 300 mg capsule 300 mg PO HS 12/23/24 05/26/25 History insulin lispro 100 unit/mL 125 unit continuous subcutaneous 12/23/24 05/26/25 History subcutaneous solution (Humalog infusion CONT U-100 Insulin) aspirin 81 mg tablet,delayed 81 mg PO DAILY #90 tabs 01/06/25 05/26/25 Rx release sertraline 100 mg tablet 200 mg PO DAILY 01/13/25 05/26/25 History ergocalciferol (vitamin D2) 1,250 1,250 mcg PO WEEKLY 03/03/25 05/26/25 History mcg (50,000 unit) capsule folic acid 1 mg tablet 1 mg PO DAILY 03/03/25 05/26/25 History ranolazine 1,000 mg 1,000 mg PO BID #180 tabs 03/03/25 05/26/25 Rx tablet,extended release,12 hr ticagrelor 90 mg tablet (Brilinta) 90 mg PO BID #180 tabs 03/20/25 05/26/25 Rx nitroglycerin 0.4 mg sublingual 0.4 mg sublingual Q5M PRN chest 05/16/25 05/26/25 Rx tablet (Nitrostat) pain #25 tabs New Prescriptions to Start Prescriptions: Allergies Allergy/AdvReac Type Severity Reaction Status Date / Time Penicillins Allergy Unknown Verified 05/19/25 08:45 allergy reaction Discharge Plan Disposition Patient Disposition: Home, Self-Care Condition: Fair Follow up Plan Follow up with: Cinthya Aguilar APRN [Nurse Practitioner, Cardiology] - 06/04/25 9:00 am Quyen Vincent [Primary Care Provider, Medical] - Enter time for follow up Referral Note: Please call office for follow up appointment Prescriptions/Medication Reconciliation: Continued pantoprazole 40 mg tablet,delayed release (DR/EC) 40 mg PO DAILY Patient Comments: TAKE 1 TABLET BY MOUTH EVERY DAY FOR ACID REFLUX sertraline 100 mg tablet 200 mg PO DAILY Patient Comments: TAKE 2 TABLETS BY MOUTH ONCE DAILY (DME) Dexcom G6 Sensor Device See Rx Instructions .ROUTE .MEDSUPPLY Qty: 1 Patient Comments: USE DIRECTED AND CHANGE EVERY 10 DAYS Rx Instructions: As directed (DME) Dexcom G6 Transmitter Device See Rx Instructions .ROUTE .MEDSUPPLY Qty: 1 Patient Comments: USE 1 EACH EVERY 3 (THREE) MONTHS Rx Instructions: As directed insulin lispro [Humalog U-100 Insulin] 100 unit/mL solution 125 unit continuous subcutaneous infusion CONT Patient Comments: USE UP TO 125 UNITS VIA INSULIN PUMP DAILY bupropion HCl 75 mg tablet 75 mg PO BID atorvastatin 80 mg tablet 80 mg PO HS Patient Comments: TAKE 1 TABLET BY MOUTH ONCE DAILY AT BEDTIME folic acid 1 mg tablet 1 mg PO DAILY Patient Comments: TAKE 1 TABLET BY MOUTH ONCE DAILY ergocalciferol (vitamin D2) 1,250 mcg (50,000 unit) capsule 1,250 mcg PO WEEKLY Patient Comments: TAKE 1 CAPSULE BY MOUTH ONCE A WEEK ranolazine 1,000 mg tablet extended release 12 hr 1,000 mg PO BID Qty: 180 1RF aspirin 81 mg tablet,delayed release (DR/EC) 81 mg PO DAILY Qty: 90 3RF Brilinta 90 mg tablet 90 mg PO BID Qty: 180 1RF nitroglycerin [Nitrostat] 0.4 mg tablet, sublingual 0.4 mg sublingual Q5M PRN (Reason: chest pain) Qty: 25 3RF Rx Instructions: do not exceed 3 doses per episode gabapentin 300 mg capsule 300 mg PO HS Other Ambulatory Orders: Consult to Cardiac Rehabilitation (Routine) Facility: [facility] - Location: Cardiac Rehabilitation Ordered By: Cesario Ortega Basic Metabolic Panel (Routine) Timeframe: 20250604 Facility: [facility] - Location: Laboratory Ordered By: Cesario Ortega Complete Blood Count Auto Diff (Routine) Timeframe: 20250604 Facility: [facility] - Location: Laboratory Ordered By: Cesario Ortega Comprehensive Metabolic Panel (Routine) Timeframe: [id number] Facility: [facility] - Location: Laboratory Ordered By: Cesario Ortega Problem Reconciliation Problems Reviewed?: Yes Patient Discharge Instructions ACTIVITY: Continue current activity DIET: continue same diet Patient Instructions: Angina, DI for Coronary Stenting, DI for Surgical Site Infection, DI for Moderate Sedation, Exercise-based Cardiac Rehabilitation May Decrease Risk of and Future Heart Procedures Print Language: [place] Providers Primary Care Provider: Quyen Vincent Admit Provider: Olaf Johnson Attending Provider: Olaf Johnson
--- NOTE | 2025-05-29 11:22 | SW/DCPLANNER ---
Phoned patient x2. Left message with name and a call back number. Cory Mcdermott
== END 2025-05-27 17:54 | disposition home or self-care (01) ==
LOC: ER 15:41 → 2ND 17:12
PROVIDERS: Internal Medicine; Nurse Practitioner; Admitting Provider Internal Medicine Adolescent Medicine; Emergency Provider Emergency Medicine; PCP Family Medicine; Visit Provider Internal Medicine Adolescent Medicine
PROC: 4A023N7 Measurement of Cardiac Sampling and Pressure, Left Heart, Percutaneous Approach (ICD-10-PCS; CPT 93452; principal; 2025-05-27 10:30)
DX: I25.118 Atherosclerotic heart disease of native coronary artery with other forms of angina pectoris (principal); R93.1 Abnormal findings on diagnostic imaging of heart and coronary circulation; I49.1 Atrial premature depolarization; E11.22 Type 2 diabetes mellitus with diabetic chronic kidney disease; I12.9 Hypertensive chronic kidney disease with stage 1 through stage 4 chronic kidney disease, or unspecified chronic kidney disease; N18.30 Chronic kidney disease, stage 3 unspecified; E11.51 Type 2 diabetes mellitus with diabetic peripheral angiopathy without gangrene; E78.5 Hyperlipidemia, unspecified; I70.219 Atherosclerosis of native arteries of extremities with intermittent claudication, unspecified extremity; Z87.891 Personal history of nicotine dependence; Z95.5 Presence of coronary angioplasty implant and graft; Z79.82 Long term (current) use of aspirin; Z79.4 Long term (current) use of insulin; Z79.02 Long term (current) use of antithrombotics/antiplatelets; Z79.899 Other long term (current) drug therapy; Z88.0 Allergy status to penicillin; Z88.8 Allergy status to other drugs, medicaments and biological substances; Z82.49 Family history of ischemic heart disease and other diseases of the circulatory system
CPT/HCPCS: 36415; 70450; 71045; 71275; 80053; 83690; 83735; 84484; 85025; 85347; 85378; 85730; 92928; 93005; 93306; 93454; 99152; C1725; C1769; C1874; C9600; G0378; J1200; J1644; J1650; J2003; J2250; J2270; J2405; J3010; J3475; J7030; J7040; Q9967

== ENCOUNTER 2025-06-06 12:52 | Outpatient (RCR) | payer MEDICAID, SELFPAY | END 2025-07-13 08:00 | disposition home or self-care (01) | LOC: CR 12:52 | PROVIDERS: Visit Provider Internal Medicine | DX: Z48.812 Encounter for surgical aftercare following surgery on the circulatory system (principal); Z95.5 Presence of coronary angioplasty implant and graft | CPT/HCPCS: 93798 ==

== ENCOUNTER 2025-07-11 14:45 | Emergency (ER) | payer MEDICAID, SELFPAY ==
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
--- OUTSIDE RECORDS SUMMARY | 2025-06-17 10:52 | XMS_ITS | Encounter Summary ---
Author Organization Healthcare Address [address] [place] [address] Care Team Providers Care Manager Administration Name Role Phone StuartQuyen gil Primary Care Provider [phone] Encounter Details Date Type Department Care Team (Latest Contact Info) Description 06/17/2025 10:52 AM EDT - 06/17/2025 11:59 PM EDT [facility] [address], [address] [place] [phone] Low back pain, unspecified back pain laterality, [...] does not drink 06/17/2025 9:29 AM Imelda Mtahis Q3: How often do you have six [...] MONTHS 08/11/2024 ergocalciferol (Vitamin D-2) 1.25 MG (93557 UT) capsule 02/25/2025 folic acid (Folvite) 1 [...] Description 09/03/2025 11:30 AM EDT Office Visit [facility]ws Clarkson [address] [facility], [address] [place] [address] Ronal Clemens MD [address] [place] [address] 09/23/2025 11:00 AM EDT Office Visit [facility] [address] [place] [address] Kerline Holcomb R, PHARMACY PICKING TECH [address] [place] [address] documented as of this encounter Procedures Procedure [...] Corey MD on 06/17/2025 11:49 AM November R Aicha PHARMACY PICKING TECH IMG XR PROCEDURES Final Res ult documented [...] documented as of this encounter Care Teams Manager Administration Relationship Specialty Start Date End Date Quyen Vincent DO [facility] [place] [place] [address] PCP - General 04/09/21 documented as of this encounter
--- OUTSIDE RECORDS SUMMARY | 2025-06-30 08:30 | XMS_ITS | Encounter Summary ---
Author Organization [facility] Address [address] [place] [address] Care Team Providers Care [employer] Platemaker Name Role Phone Quyen Vincent DO Primary Care Provider [phone] Reason for Visit * Reason Comments Diabetes Type II Diabetes Encounter Details Date Type Department Care Team (Late st Contact Info) Description 06/30/2025 8:30 AM EDT Office Visit [facility] ENDOCRINOLOG[facility] [address] [phone] Jennifer Villanueva PA [address] [phone] Type 2 diabetes mellitus with hyperglycemia, with [...] more drinks on one occasion? 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 He has continued to do well with the pump and doing well with entering food boluses. Changes to pump at last visit have worked well. Saw Urban Planning Professor in May and had a slightly high [...] program. Electronically signed by Jennifer Villanueva PA-C [facility] Endocrinology [place] 06/30/2025 documented in this encounter Plan of Treatment Upcoming Encounters Date Type Department Care Team (Late st Contact Info) Description 11/03/2025 1:00 PM EST Office Visit [facility] [address] [phone] Jennifer Villanueva PA [address] [address] Scheduled Procedures Name Priority Associated Diagnoses Date/Ti [...] - 99 mg/dL 06/30/2025 2:51 PM EDT [facility] BUN 26.0(H) 6.0 - 20.0 mg/dL 06/30/2025 2:51 PM EDT [facility] Creatinine 1.86(H) 0.76 - 1.27 mg/dL 06/30/2025 2:51 PM EDT [facility] Sodium 142 136 - 145 mmol/L 06/30/2025 2:51 PM EDT [facility] Potassium 4.1 3.5 - 5.2 mmol/L 06/30/2025 2:51 PM EDT [facility] Chloride 99 98 - 107 mmol/L 06/30/2025 2:51 PM EDT [facility] CO2 27.1 22.0 - 29.0 mmol/L 06/30/2025 2:51 PM EDT [facility] Calcium 9.8 8.6 - 10.5 mg/dL 06/30/2025 2:51 PM [facility] Total Protein 8.0 6.0 - 8.5 g/dL 06/30/2025 2:51 PM T [facility] Albumin 4.6 3.5 - 5.2 g/dL 06/30/2025 2:51 PM [facility] ALT (SGPT) 21 1 - 41 U/L 06/30/2025 2:51 PM T [facility] AST (SGOT) 25 1 - 40 U/L 06/30/2025 2:51 PM [facility] Alkaline Phosphatase 156(H) 39 - 117 U/L 06/30/2025 2:51 PM [facility] Total Bilirubin 0.7 0.0 - 1.2 mg/dL 06/30/2025 2:51 PM [facility] Globulin 3.4 gm/dL 06/30/2025 2:51 PM [facility] A/G Ratio 1.4 g/dL 06/30/2025 2:51 PM [facility] BUN/Creatinine Ratio 14.0 7.0 - 25.0 06/30/2025 2:51 PM [facility] Anion Gap 15.9(H) 5.0 - 15.0 mmol/L 06/30/2025 2:51 PM [facility] eGFR 42.5(L) >60.0 mL/min/1.7 3 06/30/2025 2:51 PM [facility] Blood Structure of left upper limb / Unknown Venipuncture / Unknown 06/30/2025 9:32 AM EDT 06/30/2025 9:32 AM T [facility] - 06/30/2025 2:51 PM EDT [...] ORDERABLES Final Resu lt Performing Organization Address City/[facility]/ZIP Co de Phone Number [facility]
[address] [place] [address], [place] [phone] * T4, Free (06/30/2025 9:32 AM EDT) Free T4 1.60 0.92 - 1.68 ng/dL 06/30/2025 2:51 PM EDT [facility] Blood Structure of left upper limb / Unknown Venipuncture / Unknown 06/30/2025 9:32 AM EDT 06/30/2025 9:32 AM EDT Jennifer MANCINI LAB BLOOD ORDERABLES Final Resu lt Performing Organization Address [facility] Co de Phone Number [facility]
[address] [place] [address], [place] [phone] * (ABNORMAL) TSH (06/30/2025 9:32 AM EDT) TSH 5.060(H) 0.270 - 4.200 uIU/mL 06/30/2025 2:51 PM EDT [facility] Blood Structure of left upper limb / Unknown Venipuncture / Unknown 06/30/2025 9:32 AM EDT 06/30/2025 9:32 AM EDT Jennifer MANCINI LAB BLOOD ORDERABLES Final Resu lt Performing Organization Address City/[facility]/ZIP Co de Phone Number [facility]
[address] [place] [address], [place] [phone] * (ABNORMAL) POC Glycosylated Hemoglobin (Hb A1C) (06/30/2025 8:47 AM EDT) Hemoglobin A1C 6.9(A) 4.5 - 5.7 % [facility] Lot Number [id number] [facility] Expiration Date 03/05/2027 [facility] Blood 06/30/2025 8:47 AM EDT Jennifer MANCINI POINT OF CARE TEST ORDERABLES F inal Result [facility]
[address] [place] [address], * POC Glucose, Blood (06/30/2025 8:44 AM [...] study documented in this encounter Care Teams [employer] Platemaker Relationship Specialty Start Date End Date Quyen Vincent DO [facility] [place] [address] PCP - General Family Medicine 02/17/17 documented as of this encounter
--- NOTE | 2025-07-11 15:11 | CT_ITS ---
FINAL REPORT TECHNIQUE: Thin section axial CT with sagittal reconstruction without contrast This study was performed with techniques to keep radiation doses as low as reasonably achievable, (ALARA). Individualized dose reduction techniques using automated exposure control or adjustment of mA and/or kV according to the patient''s size were employed. CLINICAL HISTORY: neck pain after fall hit neck COMPARISON: 10/23/2024 FINDINGS: No fracture is seen. Alignment is normal. Multilevel degenerative changes are most pronounced at C5-6 with canal stenosis and neural foraminal narrowing. IMPRESSION: Degenerative changes without acute bony abnormality. Reviewed, Interpreted and Dictated by Lissy Javed MD Transcribed by Esthela Dasilva Authenticated and [facility]
--- NOTE | 2025-07-11 15:11 | XR_ITS ---
FINAL REPORT CLINICAL HISTORY: soa COMPARISON: None FINDINGS: PORTABLE CHEST: No acute pulmonary opacity is present. There is no evidence of effusion or pneumothorax. Mediastinum is unremarkable. Heart size is normal. IMPRESSION: No acute abnormality. Reviewed, Interpreted and Dictated by Lissy Javed MD Transcribed by Meg Hurd Authenticated and [facility]
--- NOTE | 2025-07-11 15:11 | XR_ITS ---
FINAL REPORT CLINICAL HISTORY: fall COMPARISON: None FINDINGS: 3 views of the elbow were obtained. There is no acute fracture or dislocation. The joint spaces are intact. The soft tissues are unremarkable. IMPRESSION: No acute fracture. Reviewed, Interpreted and Dictated by Lissy Javed MD Transcribed by Meg Hurd Authenticated and [facility]
--- NOTE | 2025-07-11 15:11 | XR_ITS ---
FINAL REPORT CLINICAL HISTORY: fell COMPARISON: None FINDINGS: LEFT KNEE 3 views of the left knee were obtained. There is no acute fracture or dislocation. Chondrocalcinosis is noted. There is minimal degenerative change. Soft tissues are unremarkable. IMPRESSION: No acute bony abnormality. Reviewed, Interpreted and Dictated by Lissy Javed MD Transcribed by Esthela Dasilva Authenticated and [facility]
--- NOTE | 2025-07-11 15:11 | ECG_ITS ---
APPROVED REPORT Exam: Resting ECG HR:78 bpm ECG Measurements Heart Rate 78 AXES IL 176 P 60 QRSd 89 QRS 91 QT 368 T 44 QTc 401 Conclusion SINUS RHYTHM WITH SINUS ARRHYTHMIA INDETERMINATE AXIS BORDERLINE ECG UNCONFIRMED REPORT Electronically signed by : YANETH MCLEAN, 07/12/2025 06:54:22
--- NOTE | 2025-07-11 15:11 | CT_ITS ---
FINAL REPORT TECHNIQUE: Noncontrast exam This study was performed with techniques to keep radiation doses as low as reasonably achievable, (ALARA). Individualized dose reduction techniques using automated exposure control or adjustment of mA and/or kV according to the patient's size were employed. CLINICAL HISTORY: fall hit head COMPARISON: 05/26/2025 FINDINGS: CT HEAD: No abnormal density is seen. Ventricles are normal. There is no hemorrhage. No mass effect is seen. Bone windows show no evidence of fracture. IMPRESSION: No acute findings Reviewed, Interpreted and Dictated by Lissy Javed MD Transcribed by Meg Hurd Authenticated and [facility]
--- NOTE | 2025-07-11 15:11 | XR_ITS ---
FINAL REPORT CLINICAL HISTORY: left hand pain after fall FINDINGS: Two views of the left hand were obtained. There is no prior exam for comparison. There is no acute fracture or dislocation. The joint spaces are well preserved. There is no acute soft tissue abnormality. IMPRESSION: No acute abnormality identified. Reviewed, Interpreted and Dictated by Lissy Javed MD Transcribed by Esthela Dasilva Authenticated and [facility]
--- OUTSIDE RECORDS SUMMARY | 2025-07-11 15:12 | XMS_ITS | Clinical Summary ---
Author Organization [facility] Address [address] [place] [address] Phone Care Team Providers Care Java Lead Architect Name Role Phone Giles DE LA CRUZ, Adryan Lucio [phone] [ ] Conditions or Problems Problem Name [...] fat layer exposed Coronary artery disease (CAD) 90123322 (SNOMED CT) 01/21 Active 01/21 Georgina Ruth Coronary arteriosclerosis DM II with diabetic peripheral neuropathy 72659829 (SNOMED CT) 01/21 Active 01/21 Georgina Ruth Type 2 diabetes mellitus Benign Essential Hypertension 3376933 (SNOMED CT) 01/21 Active 01/21 Georgina Ruth Benign essential hypertension Wound infection/Ce llulitis of left foot L03.116 (ICD-10-CM ) 01/21 Active 01/21 Treva W Cellulitis of left lower limb MSSA infection 871931062 (SNOMED CT) 01/21 Active 01/21 Treva W Infection by methicillin sensitive Staphylococcus aureus Medications Medication Instructions Start Date Stop Date Generic Name ND Provider KEFLEX 500 MG ORAL CAPSULE one po qid CEPHALEXIN 38127025980 Radha Tucker APRN CEFTRIAXONE SODIUM 2 GM SOLR Rocephin 2GM IV Q24hrs - INPAT CEFTRIAXONE SODIUM 89767139077 Silvia Trujillo RN CEPHALEXIN 500 MG CAPS Take 1 by mouth 4 times a day CEPHALEXIN 78939686435 Adryan Skaggs MD CEFTRIAXONE SODIUM 2 GM SOLR Rocephin 2GM IV Q24hrs - INPAT CEFTRIAXONE SODIUM 20138147324 Yuni Christine SERTRALINE HCL 100 MG TABS 2 tablets daily SERTRALINE HCL 43139793962 Macarena Maria PRILOSEC OTC 20 MG TBEC Take 1 tablet by mouth daily OMEPRAZOLE MAGNESIUM 57073963320 Macarena Maria OXYCODONE HCL 5 MG TABS Take one (1) tablet by mouth four times a day as needed OXYCODONE HCL 53295611508 Macarena Maria NOVOLOG 100 UNIT/ML SUBCUTANEOUS SOLUTION INSULIN ASPART 37866392605 Macarena Maria LIPITOR 40 MG TABS Take 1 tablet by mouth daily ATORVASTATIN CALCIUM 88685928346 Macarena Maria LANTUS 100 UNIT/ML SOLN INSULIN GLARGINE 00261804910 Macarena Maria JARDIANCE 25 MG TABS Take 1 tablet by mouth daily in the AM EMPAGLIFLOZIN 58741783245 Macarena Maria ADULT ASPIRIN REGIMEN 81 MG ORAL TABLET DELAYED RELEASE Take 1 tablet by mouth daily ASPIRIN 33057228610 Macarena Maria Medications Administered No information available. [...]
--- OUTSIDE RECORDS SUMMARY | 2025-07-11 15:12 | XMS_ITS | Encounter Summary ---
Author Organization [facility] Address [address] [place] [address] Care Team Providers Care Pick Up Worker Name Role Phone StuartQuyen gil Alycia Primary Care Provider [phone] Reason for Visit * Reason Comments Med Refill Encounter Details Date Type Department Care Team (Late st Contact Info) Description 06/12/2025 Refill [facility] [address] [phone] Enmanuel Fletcher MD [address] [address] Social History Tobacco Use Types Packs/Day Years [...] more drinks on one occasion? Monthly 11/29/2022 [facility] [place] of Occupat ional Health - Occupational Stress [...] encounter Miscellaneous Notes * Telephone Encounter - Silvia Johnston - 06/13/2025 9:03 AM EDT Rx Refill Note Requested Prescriptions Pending Prescriptions Disp Refills atorvastatin (LIPITOR) 80 MG tablet [Pharmacy Med Name: Atorvastatin Calcium 80 MG Oral Tablet] 90 tablet 0 Sig: TAKE 1 TABLET BY MOUTH ONCE DAILY AT BEDTIME Last office visit with prescribing clinician: 03/12/25 Next office visit with prescribing clinician: 07/04/25 documented in this encounter Plan of Treatment Upcoming Encounters Date Type Department Care Team (Late st Contact Info) Description 11/03/2025 1:00 PM EST Office Visit [facility] [address] [phone] Jennifer Villanueva PA [address] [address] Scheduled Procedures Name Priority Associated Diagnoses Date/Ti me LEFT HEART CATH w/cors Unstable angina documented as of this encounter Visit Diagnoses Not on filedocumented in this encounter Care Teams Pick Up Worker Relationship Specialty Start Date End Date Quyen Vincent DO [facility] [place] [address] PCP - General Family Medicine 02/17/17 documented as of this encounter
--- OUTSIDE RECORDS SUMMARY | 2025-07-11 15:13 | XMS_ITS | Encounter Summary ---
Author Organization [employer] ([place], [place], [place], [place]) Address [address] [place] [address] Care Team Providers Care Family And Consumer Sciences Professor Name Role Phone Unavailable Primary Care Provider Unavailabl e Encounter Details Date Type Department Care Team (Late st Contact Info) Description 01/19/2020 Transcribed Document [facility] [place] [address] [place] [address] ProviderLora MD [address] [place], [place] [id number] Social History Tobacco Use Types Packs/Day Years Used Date Smoking Tobacco: Never Assessed Sex and Gender Information Value Date Recorded Sex Assigned at Not on file Legal Sex Male 5:25 PM CDT Gender Identity Not on file Sexual Orientation Not on file documented as of this encounter Miscellaneous Notes * [employer] Conversion Note - Historical ProviderMD - 01/19/2020 9:00 AM CULINARY INSTRUCTOR Consult Phone Call Documentation Entered On: 01/19/2020 11:27 EST Performed On: 01/19/2020 9:00 EST by Jessica Johnson [facility] Coord Phone Call for Consults Consult Phone Call/Page Attempt : First call Consult Reason : PVD/ CAD Physician Requesting Consult : CONRAD GARDNER MD-[facility] Physician Requested for Consult : RIGO KAISER MD-[facility] Provider Service Notified Name : Cardiology Physician Covering for Consult : MADHU MARTIN PAC-CAT Date and Time Call Returned : 01/19/2020 11:27 EST Jessica Johnson [facility] Coord - 01/19/2020 11:26 EST Electronically signed by Stefanie [facility] Conversion House Mother Cerner at 03/17/2023 9:29 AM CDT documented in this encounter Plan of Treatment Not on file documented as of this encounter Visit Diagnoses Not on filedocumented in this encounter
--- OUTSIDE RECORDS SUMMARY | 2025-07-11 15:13 | XMS_ITS | Encounter Summary ---
Author Organization [facility] ([place], [place], [place], [place]) Address [address] [place] [address] Care Team Providers Care Dry Cleaning Teacher Name Role Phone Unavailable Primary Care Provider Unavailabl e Encounter Details Date Type Department Care Team (Late st Contact Info) Description 01/23/2020 Transcribed Document [facility] Family Medicine [address] [place] [address] ProviderLora MD [address] [place], [place] [id number] Social History Tobacco Use Types Packs/Day Years Used Date Smoking Tobacco: Never Assessed Sex and Gender Information Value Date Recorded Sex Assigned at Not on file Legal Sex Male 5:25 PM CDT Gender Identity Not on file Sexual Orientation Not on file documented as of this encounter Miscellaneous Notes * Cerner Conversion Note - Lora ProviderMD - 01/23/2020 2:20 PM ENVIRONMENTAL SERVICES WORKER UM Authorization Entered On: 01/23/2020 14:23 EST Performed On: 01/23/2020 14:20 EST by LORENA GOLDMAN RN Primary Insurance Authorization Authorization and Policy Numbers : Insurance 1 Health Plan: [employer] Policy Number: [id number] Authorization Number: Insurance Primary Name : [facility] Policy Number: [id number] Authorization Status-Primary : Drg approved Auth/Referral Contact Name-Primary : DC Reference Number-Primary : [id number] Number of Days Authorized-Primary : 1 Day(s) Authorized Service Begin Date-Primary : 01/18/2020 EST Authorized Service End Date-Primary : 01/19/2020 EST Authorization Comments-Primary : Per Availity, DRG approved. Historical Authorization Comments-Primary : Comment 1: Discharge date and summary faxed. (Roxie Marshall, Rotor Plate Washer 01/22/2020 13:27) Comment 2: 2 days los approved, nrd 01/20, clinicals faxed via [employer] for C/S (JOAQUIN PETTY RN 01/21/2020 10:45) Comment 3: Submitted Inpt Auth on Availity with clinicals attached. (HORACIO REGALADO, Rn-Utilization Review 01/19/2020 15:14) LORENA GOLDMAN RN - 01/23/2020 14:20 EST documented in this encounter Plan of Treatment Not on file documented as of this encounter Visit Diagnoses Not on filedocumented in this encounter
--- OUTSIDE RECORDS SUMMARY | 2025-07-11 15:13 | XMS_ITS | Encounter Summary ---
Author Organization [facility] ([place], [place], [place], [place]) Address [address] [place] [address] Care Team Providers Care Hvac R Tech Name Role Phone Unavailable Primary Care Provider Unavailabl e Encounter Details Date Type Department Care Team (Late st Contact Info) Description 01/18/2020 Transcribed Document [facility] [place] [facility] [address] ProviderLora MD [address] [place] [address] Social History Tobacco Use Types Packs/Day Years Used Date Smoking Tobacco: Never Assessed Sex and Gender Information Value Date Recorded Sex Assigned at Not on file Legal Sex Male 5:25 PM CDT Gender Identity Not on file Sexual Orientation Not on file documented as of this encounter Miscellaneous Notes * [employer]ner Conversion Note - Lora ProviderMD - 01/18/2020 5:50 PM COMPRESSOR OPERATOR ADJUSTER Pain Assessment Entered On: 01/21/2020 5:08 EST [...] form. Electronically signed by Cathryn Watts Conversion Food Production Machine Operator Cerner at 03/17/2023 9:45 AM CDT documented in this encounter Plan of Treatment Not on file documented as of this encounter Visit Diagnoses Not on filedocumented in this encounter
--- OUTSIDE RECORDS SUMMARY | 2025-07-11 15:13 | XMS_ITS | Encounter Summary ---
Author Organization [email or web address] ([place], [place], [place], [place]) Address [address] [place] [address] Care Team Providers Care Architectural Modeler Name Role Phone Unavailable Primary Care Provider Unavailabl e Encounter Details Date Type Department Care Team (Late st Contact Info) Description 01/21/2020 Transcribed Document [facility] Family Medicine [address] [place] [address] ProviderLora MD [address] [place] [address] Social History Tobacco Use Types Packs/Day Years Used Date Smoking Tobacco: Never Assessed Sex and Gender Information Value Date Recorded Sex Assigned at Not on file Legal Sex Male 5:25 PM CDT Gender Identity Not on file Sexual Orientation Not on file documented as of this encounter Miscellaneous Notes * Cerner Conversion Note - Lora ProviderMD - 01/21/2020 11:07 AM BATTERY FILLER Stroke/Warfarin Instructions Entered On: 01/21/2020 11:07 EST [...]
--- OUTSIDE RECORDS SUMMARY | 2025-07-11 15:13 | XMS_ITS | Encounter Summary ---
Author Organization [employer] ([place], [place], [place], [place]) Address [address] [place] [address] Care Team Providers Care Assistant Professor Of Surgery Name Role Phone Unavailable Primary Care Provider Unavailabl e Encounter Details Date Type Department Care Team (Late st Contact Info) Description 01/19/2020 Transcribed Document [facility] Family Medicine [facility] [place] [address] ProviderLora MD [address] [place] [id number] Social History Tobacco Use Types Packs/Day Years Used Date Smoking Tobacco: Never Assessed Sex and Gender Information Value Date Recorded Sex Assigned at Not on file Legal Sex Male 5:25 PM CDT Gender Identity Not on file Sexual Orientation Not on file documented as of this encounter Miscellaneous Notes * Cerner Conversion Note - Lora ProviderMD - 01/19/2020 12:32 PM LEARNING AND DEVELOPMENT INTERN Patient: JONATHAN DELGADO Age: 49 Years Sex: [...] Information Primary Care Physician - ADRIAN DELACRUZ DO-[facility] Attending Physician - PARESH CARRASCO MD-[facility] [...] 01/18/2020 18:32 EST Electronically signed by Stefanie, [facility] Conversion Air Twister Winder Cerner at 03/17/2023 9:22 AM CDT documented in this encounter Plan of Treatment Not on file documented as of this encounter Visit Diagnoses Not on filedocumented in this encounter
--- OUTSIDE RECORDS SUMMARY | 2025-07-11 15:13 | XMS_ITS | Encounter Summary ---
Author Organization [facility] Address [address] [place] [address] Care Team Providers Care Hospital Food Service Worker Name Role Phone MelisaQuyen Alycia DO Primary Care Provider [phone] Encounter Details Date Type Department Care Team (Latest Contact Info) Description 06/30/2025 Travel Social History Tobacco Use Types Packs/Day Years [...] more drinks on one occasion? Monthly 11/29/2022 [facility] [place] of Occupat ional Health - Occupational Stress [...] on file documented as of this encounter Plan of Treatment Upcoming Encounters Date Type Department Care Team (Late st Contact Info) Description 11/03/2025 1:00 PM EST Office Visit [facility] [address] [facility] [address] [place] [phone] Jennifer Villanueva PA 30[address] [facility] [address] [place] [phone] Scheduled Procedures Name Priority Associated Diagnoses Date/Ti me LEFT HEART CATH w/cors Unstable angina documented as of this encounter Visit Diagnoses Not on filedocumented in this encounter Care Teams Hospital Food Service Worker Relationship Specialty Start Date End Date Quyen Vincent DO [address] [place] [address] PCP - General Family Medicine 02/17/17 documented as of this encounter
--- OUTSIDE RECORDS SUMMARY | 2025-07-11 15:13 | XMS_ITS | Clinical Summary ---
Author Organization [facility] Address [address] [place] [address] Care Team Providers Care Door Paneler Name Role Phone Quyen Vincent DO Primary Care Provider [phone] Allergies Active Allergy Reactions Criticality Noted Date Comments Penicillins Unknown - Low Severity Low 02/17/2017 Childhood reaction, unknown severity Medications sertraline (ZOLOFT) 100 MG tablet Take 2 tablets by mouth Every Evening. Active Insulin Syringe 31G X 516 0.5 ML miscIndications: Uncontrolled type 2 diabetes mellitus with hyperglycemia Use QID with insulin 150 each 6 018 Active gabapentin (NEURONTIN) 300 MG capsule Take 1 capsule by mouth Daily. 021 Active aspirin 81 MG chewable tablet Chew 1 tablet Daily. 023 Active tiZANidine (ZANAFLEX) 4 MG tablet Take 1 tablet by mouth As Needed. 023 Active Insulin Infusion Pump (T:slim X2 Control-IQ Pump) device Active nitroglycerin (NITROSTAT) 0.4 MG SL tablet 1 under the tongue as needed for angina, may repeat q5mins for up three doses 100 tablet 11 023 Active Brilinta 90 MG tablet tablet Take 1 tablet by mouth 2 (Two) Times a Day. 023 Active bisoprolol (ZEBeta) 5 MG tablet Take 1 tablet by mouth Daily. Active buPROPion (WELLBUTRIN) 75 MG tablet Take 1 tablet by mouth 2 (Two) Times a Day. 025 Active colestipol (COLESTID) 1 g tablet Take 2 tablets by mouth 2 (Two) Times a Day. 024 Active meloxicam (MOBIC) 15 MG tablet Take 1 tablet by mouth As Needed for Mild Pain. 024 Active primidone (MYSOLINE) 50 MG tablet Take 1 tablet by mouth Every Night. Active traMADol (ULTRAM) 50 MG tablet Take 1 tablet by mouth Every 8 (Eight) Hours. Active Continuous Glucose Sensor (Archivas G7 Sensor) miscIndications: Controlled type 2 diabetes mellitus with hyperglycemia, with long-term current use of insulin Use 1 each Every 10 (Ten) Days. Patient needs an appointment before any further refills 9 each 3 025 Active vitamin D (ERGOCALCIFEROL) 1.25 MG (01881 UT) capsule capsule Vitamin D (Ergocalcifero l) 1.25 MG (21185 UT) Oral Capsule QTY: 12 Days: 84 Refills: 0 Written: 02/25/25 Patient Instructions: 025 Active folic acid (FOLVITE) 1 MG tablet Folic Acid 1 MG Oral Tablet QTY: 90 Days: 90 Refills: 0 Written: 02/25/25 Patient Instructions: 025 Active Ranolazine ER 1000 MG pack Ranolazine ER 1000 MG Oral Packet QTY: 0 packet Days: 0 Refills: 0 Written: 03/10/25 Patient Instructions: 025 Active pantoprazole (PROTONIX) 40 MG EC tablet Take 1 tablet by mouth Daily. 025 Active atorvastatin (LIPITOR) 80 MG tablet Take 1 tablet by mouth every night at bedtime. 90 tablet 3 025 Active Insulin Lispro (HumaLOG) 100 UNIT/ML injectionIndicat ions:Type 2 diabetes mellitus with hyperglycemia, with long-term current use of insulin Use up to 125 units via insulin pump daily. 120 mL 1 025 Active Insulin Lispro (HumaLOG) 100 UNIT/ML injectionIndicat ions:Controlled type 2 diabetes mellitus with hyperglycemia, with long-term current use of insulin Use up to 125 units via insulin pump daily. 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 Continue current treatment regimen. Recommended an ADA diet. Regular aerobic exercise. Discussed foot care. Patient has done well over the last 3 months and A1c is down to 6.9. Was unable to review pump data today due to needing an upgrade. Patient will do this upgrade when able at home. Will continue current settings for now, but he can reach out if having any trouble before next appointment. Eye exam up-to-date, foot exam done today, fasting labs up-to-date, urine microalbumin creatinine ratio done today. Diabetes will be reassessed in 3 months Assessment & Plan (03/12/2025 1:13 PM EDT): Diabetes is worsening. Medication changes per orders. Recommended an ADA diet. Regular aerobic exercise. Worsening A1c due to to discontinuation of metformin and Jardiance. With ongoing dizzy episodes and falls, will use caution with making pump adjustments. Made some adjustments in pump settings, increased basal rate to more closely match current basal requirements. Lowered correction factor from 1:20 to 1:17. Turned off sleep schedule since patient is no longer working. If he has continued hyperglycemia or labs hypoglycemia, patient will call for adjustments. Diabetes will be reassessed in 3 months Resolved Problems Problem Noted Date Diagnosed Date Resolved Date Other chest pain 01/14/2019 02/09/2022 Unstable angina 06/07/2018 02/09/2022 Encounters Date Type Department Care Team Description 07/06/2025 Results Follow-Up [facility] [address] [place] [address] Jennifer Villanueva PA 06/30/2025 8:30 AM EDT Office Visit [facility] [address] [place] [address] Jennifer Villanueva PA Type 2 diabetes mellitus with hyperglycemia, with long-term current use of insulin (Primary Dx); Abnormal thyroid function test 06/30/2025 Travel 06/23/2025 Telephone [facility] [address] [place] [address] Jennifer Villanueva PA 06/12/2025 Refill [facility] [address] [place] [address] Enmanuel Fletcher MD from Last 3 Months Immunizations Immunization Administration Dates Next Due Fluzone (or Fluarix & Flulaval for VFC) >6mos Hepatitis A 09/20/2018 Influenza, Unspecified 09/20/2018 Family History Medical History Relation Name Comments Diabetes Father Desean Delgado type 2 Diabetes Maternal Grandfather Hiro Lebron Type 2 Heart attack Maternal Grandfather Hiro Vargaspot Diabetes Mother Fabian Malena Type 2 Hypertension Mother Fabian Malena Kidney disease Mother Fabian Malena Lupus Mother Fabianarcadio Guy Diabetes Paternal Grandmother Delores Delgado Type 2 Skin cancer Paternal Grandmother Delores Delgado No Known Problems Sister 2 Relation Name Status Comments Father Desean Delgado Alive Maternal Grandfather Hiro Lebron Mother Fabian Guy Paternal Grandmother Delores Delgado (Age 65) Sister 2 Alive Social History Tobacco Use Types Packs/Day Years Used Date Smoking Tobacco: Former Cigarettes 1.5 10.2 0 05/27/1991 - 07/28/2001 Smokeless Tobacco: Former Snuff Tobacco Cessation:Counseling Given: Not Answered Alcohol Use Standard Drinks/Week Comments No 0 [...] more drinks on one occasion? Monthly 11/29/2022 [facility] [place] of Occupat ional Health - Occupational Stress [...] Pulse 86 06/30/2025 8:27 AM EDT Temperature 36.8 C (98.2 F) 02/01/2024 12:55 PM EST Respiratory Rate 16 02/01/2024 12:55 PM EST Oxygen Saturation 96% 06/30/2025 8:27 AM EDT Inhaled Oxygen Concentration - - Weight 106 kg (233 lb 3.2 oz) 06/30/2025 8:27 AM EDT Height 188 cm (6' 2.02 ) 06/30/2025 8:27 AM EDT Body Mass Index 29.93 06/30/2025 8:27 AM EDT Plan of Treatment Upcoming Encounters Date Type Department Care Team (Late st Contact Info) Description 11/03/2025 1:00 PM EST Office Visit [facility] [address] [place] [address] Jennifer Villanueva PA [address] [place] [address] Scheduled Procedures Name Priority Associated Diagnoses Date/Ti me LEFT HEART CATH w/cors Unstable angina Health Maintenance Due Date Last Done Comments DIABETIC EYE EXAM 1980 Hepatitis B (1 of 3 - 19+ 3- dose series) 1989 Pneumococcal Vaccine 50+ (1 of 2 - PCV) 1989 TDAP/TD VACCINES (1 - Tdap) 1989 COLOGUARD 2015 COLON CANCER SCREENING 5 YEA R SIGMOIDOSCOPY 2015 CT COLONOGRAPHY 2015 FECAL OCCULT BLOOD TEST 2015 FIT Testing (1 year) 2015 ANNUAL PHYSICAL 03/08/2017 HEPATITIS C SCREENING 03/08/2017 ZOSTER VACCINE (1 of 2) 2020 COVID-19 Vaccine (3 - 2023-2 5 season) 2024 03/10/2021, 02/11/2021 URINE MICROALBUMIN-CREATININ E RATIO (uACR) 07/05/2025 07/05/2024, 12/13/2022, 01/27/2021, Additional history exists INFLUENZA VACCINE 08/27/2025 08/17/2024, , 09/20/2018 LIPID PANEL 12/10/2025 12/10/2024, 08/0 07/2024, 08/01/2023, Additional history exists HEMOGLOBIN A1C 12/31/2025 06/30/2025, 04/1 04/2025, 12/10/2024, Additional history exists DIABETIC FOOT EXAM 06/30/2026 06/30/2025, 0 06/30/2025, 06/30/2025, Additional history exists COLONOSCOPY 06/27/2027 06/27/2017 COLORECTAL CANCER SCREENING 06/27/2027 [facility] Discontinued Procedures Procedure Name Priority Date/Time Associated Diagnosis Comments COMPREHENSIVE METABOLIC PANEL Routine 06/30/2025 9:32 AM EDT Type 2 diabetes mellitus with hyperglycemia, with long-term current use of insulin T4, FREE Routine 06/30/2025 9:32 AM EDT Type 2 diabetes mellitus with hyperglycemia, with long-term current use of insulin TSH Routine 06/30/2025 9:32 AM EDT Type 2 diabetes mellitus with hyperglycemia, with long-term current use of insulin POCT GLYCOSYLATED HEMOGLOBIN (HGB A1C) Routine 06/30/2025 8:47 AM EDT Type 2 diabetes mellitus with hyperglycemia, with long-term current use of insulin POCT GLUCOSE, BLD (NON STRIP) Routine 06/30/2025 8:44 AM EDT Type 2 diabetes mellitus with hyperglycemia, with long-term current use of insulin LIPID PANEL Routine 12/10/2024 2:10 PM EST Controlled type 2 diabetes mellitus with hyperglycemia, with long-term current use of insulin Mixed hyperlipidemia MICROALBUMIN / CREATININE URINE RATIO Routine 07/05/2024 4:42 PM EDT Uncontrolled type 2 diabetes mellitus with hyperglycemia from Last 3 Months or Most Recently Relevant to Health Maintenance Results * (ABNORMAL) TSH (06/30/2025 9:32 AM EDT) TSH 5.060(H) 0.270 - 4.200 uIU/mL 06/30/2025 2:51 PM EDT [facility] Blood Structure of left upper limb / Unknown Venipuncture / Unknown 06/30/2025 9:32 AM EDT 06/30/2025 9:32 AM EDT Jennifer MANCINI LAB BLOOD ORDERABLES Final Resu lt [facility]
[address] [place] [address], * T4, Free (06/30/2025 9:32 AM EDT) Free T4 1.60 0.92 - 1.68 ng/dL 06/30/2025 2:51 PM EDT [facility] Blood Structure of left upper limb / Unknown Venipuncture / Unknown 06/30/2025 9:32 AM EDT 06/30/2025 9:32 AM EDT Jennifer MANCINI LAB BLOOD ORDERABLES Final Resu lt Performing Organization Address City/[facility]/ZIP Co de Phone Number [facility]
[address] [place] [address], * (ABNORMAL) Comprehensive Metabolic Panel (06/30/2025 9:32 AM EDT) Glucose 93 65 - 99 mg/dL 06/30/2025 2:51 PM EDT [facility] BUN 26.0(H) 6.0 - 20.0 mg/dL 06/30/2025 2:51 PM EDT [facility] Creatinine 1.86(H) 0.76 - 1.27 mg/dL 06/30/2025 2:51 PM EDT [facility] Sodium 142 136 - 145 mmol/L 06/30/2025 2:51 PM EDT [facility] Potassium 4.1 3.5 - 5.2 mmol/L 06/30/2025 2:51 PM EDT [facility] Chloride 99 98 - 107 mmol/L 06/30/2025 2:51 PM [facility] CO2 27.1 22.0 - 29.0 mmol/L 06/30/2025 2:51 PM [facility] Calcium 9.8 8.6 - 10.5 mg/dL 06/30/2025 2:51 PM [facility] Total Protein 8.0 6.0 - 8.5 g/dL 06/30/2025 2:51 PM T [facility] Albumin 4.6 3.5 - 5.2 g/dL 06/30/2025 2:51 PM [facility] ALT (SGPT) 21 1 - 41 U/L 06/30/2025 2:51 PM [facility] AST (SGOT) 25 1 - 40 U/L 06/30/2025 2:51 PM [facility] Alkaline Phosphatase 156(H) 39 - 117 U/L 06/30/2025 2:51 PM [facility] Total Bilirubin 0.7 0.0 - 1.2 mg/dL 06/30/2025 2:51 PM [facility] Globulin 3.4 gm/dL 06/30/2025 2:51 PM [facility] A/G Ratio 1.4 g/dL 06/30/2025 2:51 PM [facility] BUN/Creatinine Ratio 14.0 7.0 - 25.0 06/30/2025 2:51 PM [facility] Anion Gap 15.9(H) 5.0 - 15.0 mmol/L 06/30/2025 2:51 PM [facility] eGFR 42.5(L) >60.0 mL/min/1.7 3 06/30/2025 2:51 PM [facility] Blood Structure of left upper limb / Unknown Venipuncture / Unknown 06/30/2025 9:32 AM EDT 06/30/2025 9:32 AM T [facility] - 06/30/2025 2:51 PM EDT [...] MANCINI LAB BLOOD ORDERABLES Final Resu lt [facility]
[address] [place] [address], [place] [phone] * (ABNORMAL) POC Glycosylated Hemoglobin (Hb A1C) (06/30/2025 8:47 AM EDT) Hemoglobin A1C 6.9(A) 4.5 - 5.7 % [facility] Lot Number [id number] [facility] Expiration Date 03/05/2027 [facility] Blood 06/30/2025 8:47 AM EDT Jennifer MANCINI POINT OF CARE TEST ORDERABLES F inal Result [facility]
[address] [place] [address], [place] [phone] * POC Glucose, Blood (06/30/2025 8:44 AM EDT) Glucose 121 70 - 130 mg/dL Lot Number [id number] Expiration Date 12/30/2025 Blood 06/30/2025 8:44 AM EDT us Jennifer MANCINI POINT OF CARE TEST ORDERABLES F inal Result * (ABNORMAL) Lipid Panel (12/10/2024 2:10 PM EST) Total Cholesterol 148 0 - 200 mg/dL 12/11/2024 12:18 AM EST [facility] Triglycerides 219(H) 0 - 150 mg/dL 12/11/2024 12:18 AM EST [facility] HDL Cholesterol 36(L) 40 - 60 mg/dL 12/11/2024 12:18 AM EST [facility] LDL Cholesterol 76 0 - 100 mg/dL 12/11/2024 12:18 AM EST [facility] VLDL Cholesterol 36 5 - 40 mg/dL 12/11/2024 12:18 AM [facility] LDL/HDL Ratio 1.89 12/11/2024 12:18 AM [facility] Blood Structure of left upper limb / Unknown Venipuncture / Unknown 12/10/2024 2:10 PM EST 12/10/2024 2:11 PM EST [facility] - 12/11/2024 12:18 AM EST Cholesterol Reference Ranges (U.S. Department of Health and Human Services ATP III Classifications) Desirable <200 mg/dL Borderline High 200-239 mg/dL High Risk >240 mg/dL Triglyceride Reference Ranges (U.S. Department of Health and Human Services ATP III Classifications) Normal <150 mg/dL Borderline High 150-199 mg/dL High 200-499 mg/dL Very High >500 mg/dL HDL Reference Ranges (U.S. Department of Health and Human Services ATP III Classifications) Low <40 mg/dl (major risk factor for CHD) High >60 mg/dl ('negative' risk factor for CHD) LDL Reference Ranges (U.S. Department of Health and Human Services ATP III Classifications) Optimal <100 mg/dL Near Optimal 100-129 mg/dL Borderline High 130-159 mg/dL High 160-189 mg/dL Very High >189 mg/dL Bhargav Villeda PA-C LAB BLOOD ORDERABLES Final Result [facility]
[address] [place] [address], * Microalbumin / Creatinine Urine Ratio - Urine, Clean Catch (07/05/2024 4:42 PM EDT) Microalbumin/C reatinine Ratio 13.4 0.0 - 29.0 mg/g 07/06/2024 12:38 AM EDT [facility] Creatinine, Urine 149.4 mg/dL 07/06/2024 12:38 AM EDT [facility] Microalbumin, Urine 2.0 mg/dL 07/06/2024 12:38 AM EDT [facility] Urine Urine specimen obtained by clean catch procedure / Unknown Collection / Unknown 07/05/2024 4:42 PM EDT 07/05/2024 4:42 PM EDT Bhargav Villeda PA-C URINE ORDERABLES Final Res ult [facility]
[address] [place] [address], from Last 3 Months or Most Recently Relevant to Health Maintenance Insurance [employer] [place]ICA[place] Advance Directives * CPR (Attempt to Resuscitate) (Latest Code Status on File) Date Activated Date Inactivated Comments 11/29/2022 4:36 PM 12/01/2022 3:22 PM Question Answer Comments Code Status (Patient has no pulse and is not breathing): CPR (Attempt to Resuscitate) Medical Interventions (Patie nt has pulse or is breathing): Full Support Level Of Support Discussed With: Patient Release to patient: Routine Release * CPR (Attempt to Resuscitate) Date Activated Date Inactivated Comments 05/17/2022 5:34 PM 05/19/2022 4:22 PM Question Answer Comments Code Status (Patient has no pulse and is not breathing): CPR (Attempt to Resuscitate) Medical Interventions (Patie nt has pulse or is breathing): Full Support Level Of Support Discussed With: Patient * CPR (Attempt to Resuscitate) Date Activated Date Inactivated Comments 02/08/2022 11:05 AM 02/09/2022 6:33 PM Question Answer Comments Code Status (Patient has no pulse and is not breathing): CPR (Attempt to Resuscitate) Medical Interventions (Patie nt has pulse or is breathing): Full Support Level Of Support Discussed With: Patient * CPR (Attempt to Resuscitate) Date Activated Date Inactivated Comments 06/07/2018 6:06 PM 06/08/2018 10:21 PM Question Answer Comments Code Status (Patient has no pulse and is not breathing): CPR (Attempt to Resuscitate) Medical Interventions (Patie nt has pulse or is breathing): Full Level Of Support Discussed With: Patient Care Teams Door Paneler Relationship Specialty Start Date End Date Quyen Vincent DO [address] [place] [address] PCP - General Family Medicine 02/17/17
--- OUTSIDE RECORDS SUMMARY | 2025-07-11 15:13 | XMS_ITS | Encounter Summary ---
Author Organization [employer] ([place], [place], [place], [place]) Address [address] [place] [address] Care Team Providers Care Card Seller Name Role Phone Unavailable Primary Care Provider Unavailabl e Encounter Details Date Type Department Care Team (Late st Contact Info) Description 01/19/2020 Transcribed Document [facility] Family Medicine [address] [place] [address] ProviderLora MD [address] [place], [place] [id number] Social History Tobacco Use Types Packs/Day Years Used Date Smoking Tobacco: Never Assessed Sex and Gender Information Value Date Recorded Sex Assigned at Not on file Legal Sex Male 5:25 PM CDT Gender Identity Not on file Sexual Orientation Not on file documented as of this encounter Miscellaneous Notes * Cerner Conversion Note - Historical ProviderMD - 01/19/2020 3:14 PM 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
--- OUTSIDE RECORDS SUMMARY | 2025-07-11 15:13 | XMS_ITS | Encounter Summary ---
Author Organization [employer] ([place], [place], [place], [place]) Address [address] [place] [address] Care Team Providers Care System Controller Name Role Phone Unavailable Primary Care Provider Unavailabl e Encounter Details Date Type Department Care Team (Late st Contact Info) Description 01/21/2020 Transcribed Document [facility] Family Medicine [facility] [place] [address] ProviderLora MD [address] [place], [place] [id number] Social History Tobacco Use Types Packs/Day Years Used Date Smoking Tobacco: Never Assessed Sex and Gender Information Value Date Recorded Sex Assigned at Not on file Legal Sex Male 5:25 PM CDT Gender Identity Not on file Sexual Orientation Not on file documented as of this encounter Miscellaneous Notes * Cerner Conversion Note - Historical ProviderMD - 01/21/2020 8:44 AM 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 He originally presented to [facility] with complaints of [...] that due to a disagreement with the district sales leader that was on duty they requested transfer from that facility to here. Labs at outside hospital showed patient was without leukocytosis and was generally unremarkable. Cultures were obtained and patient was given 2 g IV Rocephin. He did receive a foot x-ray while at [facility] but the report did not accopany [...] with the lab today 01/18 blood cultures [facility] Rad: Radiology Results (Last 48 hours) [id number] -- 01/19/2020 15:12 CR Chest 2 Vws [...]
--- OUTSIDE RECORDS SUMMARY | 2025-07-11 15:13 | XMS_ITS | Encounter Summary ---
Author Organization [employer] ([place], [place], [place], [place]) Address [address] [place] [address] Care Team Providers Care Shank Maker Name Role Phone Unavailable Primary Care Provider Unavailabl e Encounter Details Date Type Department Care Team (Late st Contact Info) Description 01/20/2020 Transcribed Document [facility] Family Medicine [address] [place] [address] ProviderLora MD [address] [place], [place] [id number] Social History Tobacco Use Types Packs/Day Years Used Date Smoking Tobacco: Never Assessed Sex and Gender Information Value Date Recorded Sex Assigned at Not on file Legal Sex Male 5:25 PM CDT Gender Identity Not on file Sexual Orientation Not on file documented as of this encounter Miscellaneous Notes * Cerner Conversion Note - Historical ProviderMD - 01/20/2020 9:00 AM MOISTURE CONDITIONER OPERATOR Consult Phone Call Documentation Entered On: 01/20/2020 7:35 EST Performed On: 01/20/2020 9:00 EST by JASON SALGUERO Phone Call for Consults Consult Reason : foot cellulitis, done by koki hurtado yesterday Physician Requested for Consult : BAYRON BARAKAT MD-INF Provider Service Notified Name : Infectious Disease Date and Time Call Returned : 01/20/2020 7:35 EST JASON SALGUERO - 01/20/2020 7:34 EST Electronically signed by Cathryn Watts Conversion Solar Energy System Installer Helper Cerner at 03/17/2023 9:37 AM CDT documented in this encounter Plan of Treatment Not on file documented as of this encounter Visit Diagnoses Not on filedocumented in this encounter
--- OUTSIDE RECORDS SUMMARY | 2025-07-11 15:13 | XMS_ITS | Encounter Summary ---
Author Organization [employer] ([place], [place], [place], [place]) Address [address] [place] [address] Care Team Providers Care Supervisor Hard Candy Name Role Phone Unavailable Primary Care Provider Unavailabl e Encounter Details Date Type Department Care Team (Late st Contact Info) Description 01/18/2020 Transcribed Document [facility] [place] [facility] [place] [address] ProviderLora MD [address] [place] [place], [place] [id number] Social History Tobacco Use Types Packs/Day Years Used Date Smoking Tobacco: Never Assessed Sex and Gender Information Value Date Recorded Sex Assigned at Not on file Legal Sex Male 5:25 PM CDT Gender Identity Not on file Sexual Orientation Not on file documented as of this encounter Miscellaneous Notes * Cerner Conversion Note - Lora ProviderMD - 01/18/2020 5:01 PM WORKERS COMPENSATION COORDINATOR Admission History, Adult Entered On: 01/18/2020 17:09 [...] #2 Relationship : , Primary Language : Cameroonian Communication Barrier : None Martha Daigle RN [...] Scale Risk Level : 0-24 Low Risk [place] Fall Interventions : Adequate lighting, Assistive devices [...] Source : Stated Height Entry Format : [place] Height, Feet : 6 ft(Converted to: 183 cm, 72 Inch) Height, Inches : 2 Inch(Converted to: 0 ft 2 Inch, 5.08 cm) Clinical Height : 187.96 cm Weight Source : Standing scale Weight Entry Format : [place]rick Clinical Dosing Weight : 107.27 kg Weight, Pounds : 236 lb Body Surface Area (BSA) : 2.33 m2 Body Mass Index : 30.4 kg/m2 ([place]) [place] Body Weight : 81 kg Martha Daigle [...] Martha Daigle RN - 01/18/2020 17:01 EST [place] Suicide Severity Rating Scale (C-SSRS) CSSRS Past [...]
--- OUTSIDE RECORDS SUMMARY | 2025-07-11 15:13 | XMS_ITS | Encounter Summary ---
Author Organization [employer] ([place], [place], [place], [place]) Address [address] [place] [address] Care Team Providers Care Staple Shear Operator Name Role Phone Unavailable Primary Care Provider Unavailabl e Encounter Details Date Type Department Care Team (Late st Contact Info) Description 01/18/2020 Transcribed Document [facility] [place] Medicine [facility] [place] [address] ProviderLora MD [address] [id number] Social History Tobacco Use Types Packs/Day Years Used Date Smoking Tobacco: Never Assessed Sex and Gender Information Value Date Recorded Sex Assigned at Not on file Legal Sex Male 5:25 PM CDT Gender Identity Not on file Sexual Orientation Not on file documented as of this encounter Miscellaneous Notes * Cerner Conversion Note - Lora ProviderMD - 01/18/2020 9:06 PM GEOINT ANALYST DATE OF ADMISSION: 01/18/2020 PRIMARY CARE PHYSICIAN: [...] patient has been evaluated and transferred to [facility]. The patient came in. Blood work [...] will check x-ray. We will consult the executive legal secretary. Start IV antibiotic. 3. Diabetes mellitus. The [...] Chart was reviewed. Time spent, 55 minutes. /[id number] MD GABY Malloy/KELLEY / GABY / LUCIO documented in this encounter Plan of Treatment Not on file documented as of this encounter Visit Diagnoses Not on filedocumented in this encounter
--- OUTSIDE RECORDS SUMMARY | 2025-07-11 15:13 | XMS_ITS | Encounter Summary ---
Author Organization [employer] ([place], [place], [place], [place]) Address [address] [place] [address] Care Team Providers Care Extension Course Counselor Name Role Phone Unavailable Primary Care Provider Unavailabl e Encounter Details Date Type Department Care Team (Late st Contact Info) Description 01/20/2020 Transcribed Document [facility] [place] Family Medicine [address] [place] [address] ProviderLora MD [address] [place] [address] Social History Tobacco Use Types Packs/Day Years Used Date Smoking Tobacco: Never Assessed Sex and Gender Information Value Date Recorded Sex Assigned at Not on file Legal Sex Male 5:25 PM CDT Gender Identity Not on file Sexual Orientation Not on file documented as of this encounter Miscellaneous Notes * Cerner Conversion Note - Historical ProviderMD - 01/20/2020 2:00 AM CHOKER SETTER Accountant Manager Details Entered On: 01/20/2020 3:34 EST [...]
--- OUTSIDE RECORDS SUMMARY | 2025-07-11 15:13 | XMS_ITS | Encounter Summary ---
Author Organization [employer] ([place], [place], [place], [place]) Address [address] [place] [address] Care Team Providers Care Surg Rn Name Role Phone Unavailable Primary Care Provider Unavailabl e Encounter Details Date Type Department Care Team (Late st Contact Info) Description 01/20/2020 Transcribed Document [facility] Radiology [address] [place] [address] Paresh Bravo MD [address] [place] [address] Social History Tobacco Use Types Packs/Day [...] mg, 18 mL, 136 mL/Hr, IV Piggyback, [id number] DAPTOmycin + Sodium Chloride 0.9% intravenous solution 50 mL: 900 mg, 18 mL, 136 mL/Hr, IV Piggyback, [id number] DuoNeb 0.5 mg-2.5 mg/3 mL inhalation solution: [...] mL: 2 Gram, 100 mL/Hr, IV Piggyback, [id number] Tylenol: 650 mg, Oral, Q4H, PRN: Other [...] 0.9% 50 mL 2 Gram, IV Piggyback, [id number] DAPTOmycin + NaCl 0.9% 50 mL 900 mg 18 mL, IV Piggyback, I58JEph DAPTOmycin + NaCl 0.9% 50 mL 900 mg 18 mL, IV Piggyback, J89ZEqs famotidine 20 mg tab 20 mg 1 [...] History of obstructive sleep apnea / IMO [id number] / Confirmed, Active Problems (11) Angina Coronary [...] 42.9 \ Radiology Results (Last 48 hours) [id number] -- 01/19/2020 15:12 CR Chest 2 Vws [...] 50 mL) 2 Gram, IV Piggyback, Inj, Z99BFmc, infuse over 30 Minute(s), Routine, Start 01/20/20 16:00:00 EST, 100 mL/Hr, Indication: Skin and Skin Structure Infection SARCINELLA, MYNOR, PARKING LINE PAINTER DAPTOmycin + Sodium Chloride 0.9% intravenous solution 50 mL 900 mg, IV Piggyback, S04NUpg, infuse over 30 Minute(s), Routine, Start 01/20/20 21:00:00 EST, 136 mL/Hr, Indication: Skin and Skin Structure Infection SARCINELLA, MYNOR, PARKING LINE PAINTER DAPTOmycin + Sodium Chloride 0.9% intravenous solution 50 mL 900 mg, IV Piggyback, [id number], infuse over 30 Minute(s), order duration: 1 Time(s), Routine, Start 01/19/20 16:00:00 EST, Stop 01/20/20 15:59:00 EST, 136 mL/Hr, Indication: Skin and Skin Structure Infection SARCINELLA, MYNOR, PARKING LINE PAINTER insulin glargine (Lantus) 18 Units, SubCutaneous, Inj, [...] solution 100 mL) 2 Gram, IV Piggyback, [id number], infuse over 30 Minute(s), Routine, Start 01/19/20 16:00:00 EST, 200 mL/Hr, Indication: Skin and Skin Structure Infection SARCINELLA, MYNOR, PARKING LINE PAINTER meropenem + Sodium Chloride 0.9% intravenous solution [...]
--- OUTSIDE RECORDS SUMMARY | 2025-07-11 15:13 | XMS_ITS | Encounter Summary ---
Author Organization [employer] ([place], [place], [place], [place]) Address [address] [place] [address] Care Team Providers Care Acquisition Analyst Name Role Phone Unavailable Primary Care Provider Unavailabl e Encounter Details Date Type Department Care Team (Late st Contact Info) Description 01/20/2020 Transcribed Document [facility] [place] [address] [place] [address] ProviderLora MD [address] [place] [address] Social History Tobacco Use Types Packs/Day Years Used Date Smoking Tobacco: Never Assessed Sex and Gender Information Value Date Recorded Sex Assigned at Not on file Legal Sex Male 5:25 PM CDT Gender Identity Not on file Sexual Orientation Not on file documented as of this encounter Miscellaneous Notes * Cerner Conversion Note - Historical ProviderMD - 01/20/2020 5:00 AM MANAGER SIMULATION Chart Check - Review Order Profile Entered On: 01/20/2020 3:35 EST Performed On: 01/20/2020 5:00 EST by Mary Jane Burnham RN Chart Check Powerplans Initiated/Discontinued as Appropriate : Yes All Active Orders Reviewed : Yes Mary Jane Burnham RN - 01/20/2020 3:35 EST Electronically signed by Cathryn Watts Conversion Insulation Worker Furnace Installer Cerner at 03/17/2023 9:36 AM CDT documented in this encounter Plan of Treatment Not on file documented as of this encounter Visit Diagnoses Not on filedocumented in this encounter
--- OUTSIDE RECORDS SUMMARY | 2025-07-11 15:13 | XMS_ITS | Encounter Summary ---
Author Organization [employer] ([place], [place], [place], [place]) Address [address] [place] [address] Care Team Providers Care Aws Architect Name Role Phone Unavailable Primary Care Provider Unavailabl e Encounter Details Date Type Department Care Team (Late st Contact Info) Description 01/21/2020 Transcribed Document [facility] [place] [address] [place] [address] ProviderLora MD [address] [place] [address] Social History Tobacco Use Types Packs/Day Years Used Date Smoking Tobacco: Never Assessed Sex and Gender Information Value Date Recorded Sex Assigned at Not on file Legal Sex Male 5:25 PM CDT Gender Identity Not on file Sexual Orientation Not on file documented as of this encounter Miscellaneous Notes * Cerner Conversion Note - Historical ProviderMD - 01/21/2020 5:00 AM CAR WRECKER Chart Check - Review Order Profile Entered [...]
--- OUTSIDE RECORDS SUMMARY | 2025-07-11 15:13 | XMS_ITS | Encounter Summary ---
Author Organization [employer] ([place], [place], [place], [place]) Address [address] [place] [address] Care Team Providers Care Wire Charger Name Role Phone Unavailable Primary Care Provider Unavailabl e Encounter Details Date Type Department Care Team (Late st Contact Info) Description 01/21/2020 Transcribed Document [facility] [place] Medicine [facility] [place] [address] ProviderLora MD [address] [id number] Social History Tobacco Use Types Packs/Day Years Used Date Smoking Tobacco: Never Assessed Sex and Gender Information Value Date Recorded Sex Assigned at Not on file Legal Sex Male 5:25 PM CDT Gender Identity Not on file Sexual Orientation Not on file documented as of this encounter Miscellaneous Notes * Cerner Conversion Note - Historical ProviderMD - 01/21/2020 2:32 PM INSURANCE CASE MANAGER Nursing Discharge Summary Entered On: 01/21/2020 14:33 [...] - 01/21/2020 14:32 EST Electronically signed by [facility] Conversion Ict Managers Cerner at 03/17/2023 9:22 AM CDT documented in this encounter Plan of Treatment Not on file documented as of this encounter Visit Diagnoses Not on filedocumented in this encounter
--- OUTSIDE RECORDS SUMMARY | 2025-07-11 15:13 | XMS_ITS | Encounter Summary ---
Author Organization [employer] ([place], [place], [place], [place]) Address [address] [place] [address] Care Team Providers Care Industrial Coffee Grinder Name Role Phone Unavailable Primary Care Provider Unavailabl e Encounter Details Date Type Department Care Team (Late st Contact Info) Description 01/19/2020 Transcribed Document [facility] [place] Family Medicine [address] [place] [address] ProviderLora MD [address], [place] [id number] Social History Tobacco Use Types Packs/Day Years Used Date Smoking Tobacco: Never Assessed Sex and Gender Information Value Date Recorded Sex Assigned at Not on file Legal Sex Male 5:25 PM CDT Gender Identity Not on file Sexual Orientation Not on file documented as of this encounter Miscellaneous Notes * Cerner Conversion Note - Historical ProviderMD - 01/19/2020 9:00 AM VEHICLE INSURANCE AGENT Consult Phone Call Documentation Entered On: 01/19/2020 10:28 EST Performed On: 01/19/2020 9:00 EST by Jessica Johnson [facility] Coord Phone Call for Consults Consult Phone Call/Page Attempt : Second call Consult Reason : foot cellulitis Physician Requesting Consult : CONRAD GARDNER MD-[facility] Physician Requested for Consult : TANISHA AMAYA DPM-POD Provider Service Notified Name : Podiatry Physician Covering for Consult : CHERISE HOWELL DPM-TOMMY Date and Time Call Returned : 01/19/2020 10:28 EST Jessica Johnson Care [facility] Coord - 01/19/2020 10:27 EST Electronically signed by Stefanie [facility] Conversion Plate Take Out Worker Cerner at 03/17/2023 9:14 AM CDT documented in this encounter Plan of Treatment Not on file documented as of this encounter Visit Diagnoses Not on filedocumented in this encounter
--- OUTSIDE RECORDS SUMMARY | 2025-07-11 15:13 | XMS_ITS | Encounter Summary ---
Author Organization [employer] ([place], [place], [place], [place]) Address [address] [place] [address] Care Team Providers Care Manager Sterile Processing Name Role Phone Unavailable Primary Care Provider Unavailabl e Encounter Details Date Type Department Care Team (Late st Contact Info) Description 01/22/2020 Transcribed Document [facility] [place] Family Medicine [address] [place] [address] ProviderLora MD [address] [place], [place] [id number] Social History Tobacco Use Types Packs/Day Years Used Date Smoking Tobacco: Never Assessed Sex and Gender Information Value Date Recorded Sex Assigned at Not on file Legal Sex Male 5:25 PM CDT Gender Identity Not on file Sexual Orientation Not on file documented as of this encounter Miscellaneous Notes * Cerner Conversion Note - Lora ProviderMD - 01/22/2020 1:27 PM OPERATIONS SPECIALISTS [facility] Authorization Entered On: 01/22/2020 13:28 EST Performed On: 01/22/2020 13:27 EST by Roxie Marshall, Crystal Grower Primary Insurance Authorization Authorization and Policy Numbers : Insurance 1 Health Plan: [employer] [facility] Policy Number: [id number] Authorization Number: Insurance [facility]: [id number] Authorization Status-Primary : Admit approved Auth/Referral Contact Name-Primary : [place] Reference Number-Primary : [id number] Number of Days Authorized-Primary : 1 Day(s) [...] REGALADO, Rn-Utilization Review 01/19/2020 15:14) Roxie Marshall, Crystal Grower - 01/22/2020 13:27 EST Electronically signed by [facility], [facility] Conversion Derrick Boat Runner Cerner at 03/17/2023 9:31 AM CDT documented in this encounter Plan of Treatment Not on file documented as of this encounter Visit Diagnoses Not on filedocumented in this encounter
--- OUTSIDE RECORDS SUMMARY | 2025-07-11 15:13 | XMS_ITS | Encounter Summary ---
Author Organization Healthcare Address [address] [place] [address] Care Team Providers Care Electrical Sign Wirer Helper Name Role Phone Quyen Vincent DO Primary Care Provider Encounter Details Date Type Department Care Team (Latest Contact Info) Description 06/17/2025 Travel Social History Tobacco Use Types Packs/Day [...] Author 0 06/17/2025 9:29 AM Imelda Mathis * Question Answer Date of Assessment [...] Health Questionnaire-9 Score 9 06/17/2025 9:30 AM EDT Melonie Melvin R * If you checked off any problems on this questionnaire so far, Question Answer Date of Assessment Author How difficult have these problems made it for you to do your work, take care of things at home, or get along with other people? Not difficult at all 06/17/2025 9:30 AM EDT Juaquin Melvin in R * How difficult have these problems made it for you to do your work, take care of things at home, or get along with other people? Answer Date of Assessment Author Not difficult at all 06/17/2025 9:30 AM EDT Imelda Day documented as of this encounter Plan of Treatment Upcoming Encounters Date Type Department Care Team (Late st Contact Info) Description 09/03/2025 11:30 AM EDT Office Visit [facility] [place] [address], [address] [place] [address] Ronal Clemens MD [address] [place] [address] 09/23/2025 11:00 AM EDT Office Visit [facility] [address] [place] [address] Kerline Holcomb R, [facility] [address] [place] [address] documented as of this encounter Visit Diagnoses Not on filedocumented in this encounter Additional Health Concerns Assessment Noted Time PHQ-9 Depression Total Score: 9 06/17/20 25 9:30 AM EDT A fall risk assessment has been complete d for the patient 06/17/2025 9:30 AM EDT A Body Mass Index follow-up plan has been documented for the patient 06/17/2025 10:36 AM EDT documented as of this encounter Care Teams Electrical Sign Wirer Helper Relationship Specialty Start Date End Date Quyen Vincent DO [address] [place] [address] PCP - General 04/09/21 documented as of this encounter
--- OUTSIDE RECORDS SUMMARY | 2025-07-11 15:13 | XMS_ITS | Encounter Summary ---
Author Organization [employer] ([place], [place], [place], [place]) Address [address] [place] [address] Care Team Providers Care Mediation Commissioner Name Role Phone Unavailable Primary Care Provider Unavailabl e Encounter Details Date Type Department Care Team (Late st Contact Info) Description 01/21/2020 Transcribed Document [facility] [place] [address] [place] [address] ProviderLora MD [address] [place] [address] Social History Tobacco Use Types Packs/Day Years Used Date Smoking Tobacco: Never Assessed Sex and Gender Information Value Date Recorded Sex Assigned at Not on file Legal Sex Male 5:25 PM CDT Gender Identity Not on file Sexual Orientation Not on file documented as of this encounter Miscellaneous Notes * Cerner Conversion Note - Historical ProviderMD - 01/21/2020 2:00 AM FORMING ROLL OPERATOR HEAVY DUTY Central Office Inspector Details Entered On: 01/21/2020 5:09 EST Performed [...]
--- OUTSIDE RECORDS SUMMARY | 2025-07-11 15:13 | XMS_ITS | Encounter Summary ---
Author Organization [employer] ([place], [place], [place], [place]) Address [address] [place] [address] Care Team Providers Care Structural Engineering Project Manager Name Role Phone Unavailable Primary Care Provider Unavailabl e Encounter Details Date Type Department Care Team (Late st Contact Info) Description 01/21/2020 Transcribed Document [facility] Family Medicine [address] [place] [address] ProviderLora MD [address] [place] [address] Social History Tobacco Use Types Packs/Day Years Used Date Smoking Tobacco: Never Assessed Sex and Gender Information Value Date Recorded Sex Assigned at Not on file Legal Sex Male 5:25 PM CDT Gender Identity Not on file Sexual Orientation Not on file documented as of this encounter Miscellaneous Notes * Cerner Conversion Note - Loar ProviderMD - 01/21/2020 1:00 PM ENDOSCOPY TECH [facility] [place] [address] JONATHAN DELGADO :1970 Visit Time:01/19/2020 Your [...] ID, Ins Co-pay Where: [address] [place] [address]- Follow Up with CHERISE HOWELL When 01/27/2020 01:40 PM EST Comments Appointment has been made Bring discharge instructions with you Bring Ins Card, Photo ID, Ins Co-pay Where: [address] [facility] [address] [place] [address]- Business (1) Follow Up with MARA FLORES When 01/22/2020 01:30 PM EST Comments Appointment has been madeBring discharge instructions with you Bring Ins Card, Photo ID, Ins Co-pay Where: [address] [facility] [address] [place] [address]- Business (1) Medications What How Much When [...] that you work with a diet and nutrition associate (dietitian) to make a meal plan that [...] provider. ??? Work with a counselor or coding educator to identify strategies to manage stress and any emotional and social challenges. Questions to ask a health care provider ??? Do I need to meet with a coding educator? Do I need to meet with a dietitian? What number can I call if I have questions? When are the best times to check my blood glucose? Where to find more information: ??? [place] [employer]: diabetes.org ??? Academy of Nutrition and Dietetics: www.eatright.org ??? National [place] of Diabetes and Digestive and Kidney Diseases (NIH): www.niddk.nih.gov Summary ??? A healthy meal plan will help you control your blood glucose and maintain a healthy lifestyle. ??? Working with a diet and nutrition associate (dietitian) can help you make a meal [...] 08/10/2006 Document Revised: 06/13/2018 Document Reviewed: 12/18/2017 [employer] Patient Education ?? 2019 [employer] Carbohydrate Counting for Diabetes Mellitus, Adult [...] different for every person. A diet and nutrition associate (registered dietitian) can help you make a [...] of carbohydrates: ? hamburger bun or ?? Argentine muffin. ? oz (15 mL) syrup. ? [...] foods that contain carbohydrates: ??? Rice. ??? [place]. ??? Milk. ??? Strawberries. 2. Calculate how [...] manage your diabetes. ??? A diet and nutrition associate (registered dietitian) can help you make a meal plan and calculate how many carbohydrates you should have at each meal and snack. This information is not intended to replace advice given to you by your health care provider. Make sure you discuss any questions you have with your health care provider. Document Released: 11/13/2006 Document Revised: 05/23/2018 Document Reviewed: 04/26/2017 [employer] Interactive Patient Education ?? 2019 [employer]. Incision and Drainage, Care After Refer [...] Follow these instructions at home: ??? Take pgib-fas-yhojlhx and prescription medicines only as told by [...] and water are not available, use hand screen examiner. ? When you should remove your dressing. [...] 02/04/2013 Document Revised: 04/14/2017 Document Reviewed: 09/02/2016 [employer] Interactive Patient Education ?? 2019 [employer] Diabetes and Foot Care Diabetes may [...] 11/10/2001 Document Revised: 04/20/2017 Document Reviewed: 04/22/2014 [employer] Interactive Patient Education ?? 2017 [employer]. oxycodone (ox i KOE done) Oxaydo, OxyCONTIN, [...] The extended-release form of oxycodone is for bahuvf-kzc-wfjwb treatment of pain and should not be [...] against the law. Stop taking all other yczpsu-qiz-rixnq narcotic pain medicines when you start taking [...] may report side effects to FDA at 6-210-SYT-8782. What other drugs will affect oxycodone? You [...] may affect oxycodone. This includes prescription and omfz-wrk-sbvczeb medicines, vitamins, and herbal products. Not all [...] to ensure that the information provided by [employer]. ('[employer]') is accurate, up-to-date, and complete, but no guarantee is made to that effect. Drug information contained herein may be time sensitive. [employer] information has been compiled for use by healthcare practitioners and consumers in the [place] and therefore [employer] does not warrant that uses outside of the [place] are appropriate, unless specifically indicated otherwise. [employer]'s drug information does not endorse drugs, diagnose patients or recommend therapy. [employer] drug information is an informational resource designed [...] effective or appropriate for any given patient. [employer] does not assume any responsibility for any aspect of healthcare administered with the aid of information [employer] provides. The information contained herein is not intended to cover all possible uses, directions, precautions, warnings, drug interactions, allergic reactions, or adverse effects. If you have questions about the drugs you are taking, check with your doctor, nurse or pharmacist. Copyright 9013-0467 [employer]. Version: 13.03. Revision Date: 09/09/2019. lactobacillus acidophilus [...] may report side effects to FDA at 9-597-WBG-0973. What other drugs will affect lactobacillus acidophilus? Do not take lactobacillus acidophilus without medical advice if you are using any medications that can weaken your immune system, such as: ?? medicine to prevent organ transplant rejection; or ?? steroid medicine (prednisone, dexamethasone, methylprednisolone, and others). This list is not complete. Other drugs may interact with lactobacillus acidophilus, including prescription and ufkh-qam-giougip medicines, vitamins, and herbal products. Not all [...] to ensure that the information provided by [employer] ('[employer]') is accurate, up-to-date, and complete, but no guarantee is made to that effect. Drug information contained herein may be time sensitive. [employer] information has been compiled for use by healthcare practitioners and consumers in the [place] and therefore [employer] does not warrant that uses outside of the [place] are appropriate, unless specifically indicated otherwise. [employer] drug information does not endorse drugs, diagnose patients or recommend therapy. [employer] drug information is an informational resource designed [...] effective or appropriate for any given patient. [employer] does not assume any responsibility for any aspect of healthcare administered with the aid of information [employer] provides. The information contained herein is not intended to cover all possible uses, directions, precautions, warnings, drug interactions, allergic reactions, or adverse effects. If you have questions about the drugs you are taking, check with your doctor, nurse or pharmacist. Copyright 4065-1725 [employer]. Version: 3.07. Revision Date: 05/05/2017. Emergency Awareness [...] Assistance with quitting is available by contacting 0-375-SXUCNOW. This is a free resource providing counseling, [...] range between ( 0.0 and 7.0 ) [place] #: 0.59 K/uL -- Normal range between ( 0.16 and 1.00 ) Eos #: 0.26 x10(3)/uL -- Normal range between ( 0.00 and 0.80 ) [place] %: 9.1 % -- Normal range between [...] was given the opportunity to ask questions. Patient/Jewelry Inspector Name: Patient/Jewelry Inspector Signature: Relationship to Patient: Clinician/Hospital Jewelry Inspector Signature: Date: documented in this encounter Plan of Treatment Not on file documented as of this encounter Visit Diagnoses Not on filedocumented in this encounter
--- OUTSIDE RECORDS SUMMARY | 2025-07-11 15:13 | XMS_ITS | Encounter Summary ---
Author Organization [facility] Address [address] [place] [id number] Care Team Providers Care Barge Worker Name Role Phone Quyen Vincent DO Primary Care Provider [phone] Encounter Details Date Type Department Care Team (Late st Contact Info) Description 06/23/2025 Telephone [facility] END[facility] [address] [facility] [address] [place] [address] Jennifer Villanueva PA [address] [facility] [address] [place] [address] Social History Tobacco Use Types Packs/Day [...] more drinks on one occasion? Monthly 11/29/2022 [facility] Occupat ional [facility] - Occupational Stress [...] encounter Miscellaneous Notes * Telephone Encounter - Monroe Bryant MA - 06/23/2025 8:50 AM EDT Called patient to get him rescheduled for 07/04 with Jennifer Rubin Patient has been rescheduled and voiced understanding on appt day and time. documented in this encounter Plan of Treatment Upcoming Encounters Date Type Department Care Team (Late st Contact Info) Description 11/03/2025 1:00 PM EST Office Visit [facility] ENDOCR[facility]Y [address] [id number] Jennifer Villanueva PA [address] [facility] [address] [place] [address] Scheduled Procedures Name Priority Associated Diagnoses Date/Ti me LEFT HEART CATH w/cors Unstable angina documented as of this encounter Visit Diagnoses Not on filedocumented in this encounter Care Teams Barge Worker Relationship Specialty Start Date End Date Quyen Vincent DO [facility] [place] [address] PCP - General Family Medicine 02/17/17 documented as of this encounter
--- OUTSIDE RECORDS SUMMARY | 2025-07-11 15:13 | XMS_ITS | Clinical Summary ---
Author Organization Healthcare Address [address] [place] [address] Care Team Providers Care Bisque Grader Name Role Phone MelisaQuyen Primary Care Provider [phone] Allergies Active Allergy Reactions Criticality Noted Date Comments Penicillins Other - please docum ent in the comment field,Unknown - Patient states they do not know rxn details Low 11/27/1971 Childhood reaction, unknown severity Penicillin Medications aspirin 81 MG EC tablet Take 1 tablet by mouth daily. Active atorvastatin (Lipitor) 80 MG tablet Take 1 tablet by mouth 1 time each day. 0 Active buPROPion (Wellbutrin) 75 MG tablet 5 Active colestipol (Colestid) 1 g tablet as needed. 4 Active Continuous Glucose Sensor (Dexcom G7 Sensor) misc CHANGE EVERY 10 DAYS, APPOINTMENT NEEDED FOR REFILLS 5 Active Continuous Glucose Transmitter (Dexcom G6 transmitter) misc USE 1 EACH EVERY 3 (THREE) MONTHS 4 Active ergocalciferol (Vitamin D-2) 1.25 MG (82555 UT) capsule 5 Active folic acid (Folvite) 1 MG tablet Take 1 tablet by mouth daily. 5 Active gabapentin (Neurontin) 300 MG capsule Take 1 capsule by mouth 3 times a day. Active Insulin Lispro (Admelog, HumaLOG) 100 UNIT/ML injection vial USE UP TO 125 UNITS VIA INSULIN PUMP DAILY 5 Active nitroglycerin (Nitrostat) 0.4 MG SL tablet 5 Active pantoprazole (Protonix) 40 MG EC tablet 4 Active ranolazine (Ranexa) 1000 MG 12 hr tablet Take 1 tablet by mouth 2 times a day. Active sertraline (Zoloft) 100 MG tablet Take 2 tablets by mouth daily. Active Brilinta 90 MG tablet Take 1 tablet by mouth 2 times a day. 0 Active Active Problems No known active problems Resolved Problems Problem Noted Date Diagnosed Date Resolved Date Lesion of ulnar nerve, left upper limb 04/30/2025 06/17/2025 Radiculopathy, cervical region 04/23/2025 06/17/2025 Dorsalgia, unspecified 04/08/202506/17 Dizziness and giddiness 04/08/202505/28 Repeated falls 04/08/2025 06/17/2025 Fusion of spine, lumbar region 04/03/2025 06/17/2025 Localized edema 03/18/2025 06/17/2025 Pain in left foot 03/18/2025 06/17/2025 Abnormal findings on diagnos tic imaging of heart and coronary circulation 03/03/2025 Unsteadiness on feet 02/21/2025 025 Weakness 02/21/2025 06/17/2025 Disorder of kidney and ureter, unspecified 02/18/2025 06/17/2025 Occlusion and stenosis of un specified carotid artery 02/18/2025 06/17/2025 Anesthesia of skin 02/10/2025 Hyperlipidemia, unspecified 02/10/2025 06/17/2025 Acquired absence of other sp ecified parts of digestive tract 01/14/2025 06/17/2025 Disease of stomach and duodenum, unspecified 06/17/2025 Disorder of bile acid and ch olesterol metabolism, unspecified 01/14/2025 06/17/2025 Epigastric pain 01/14/2025 06/17/2025 Nausea 01/14/2025 06/17/2025 Other chronic pancreatitis 01/14/2025 0 06/17/2025 Spondylolisthesis, lumbar region 01/08/2025 06/17/2025 Acute kidney failure, unspecified 12/27/2024 06/17/2025 Spinal stenosis of lumbar region 12/27/2024 06/17/2025 Intervertebral disc disorder s with radiculopathy, lumbar region 12/26/2024 06/17/2025 Finding of other psychotropic drug in blood 12/24/2024 06/17/2025 Peripheral vascular angiopla sty status with implants and grafts 12/24/2024 06/17/2025 Chronic kidney disease, unspecified 12/23/2024 06/17/2025 Tremor, unspecified 12/23/2024 06/17/20 Syncope and collapse determi hanh by examination 05/27/2024 06/17/2025 Essential tremor 03/01/2024 06/17/2025 Left foot drop 01/23/2023 06/17/2025 Neuralgia 01/23/2023 06/17/2025 Forgetfulness 01/23/2023 06/17/2025 Chest pain 05/17/2022 06/17/2025 Cervical spondylosis without myelopathy 06/01/2021 06/17/2025 Paresthesia 05/27/2021 06/17/2025 Diabetic peripheral neuropat hy associated with type 2 diabetes mellitus 01/28/2019 06/17/2025 Hypertension 01/14/2019 06/17/2025 Abdominal pain 12/04/2017 06/17/2025 Overview (06/17/2025): Abdominal pain Heartburn 12/04/2017 06/17/2025 Overview (06/17/2025): Heartburn Chronic constipation with overflow 07/19/2017 06/17/2025 Overview (06/17/2025): Overflow diarrhea Constipation 07/19/2017 06/17/2025 Overview (06/17/2025): Constipation Diarrhea 07/04/2017 06/17/2025 Overview (06/17/2025): Diarrhea Anxiety 03/08/2017 06/17/2025 Cellulitis 03/08/2017 06/17/2025 Overview (06/17/2025): Second toe, right Depression 03/08/2017 06/17/2025 Sleep apnea 03/08/2017 06/17/2025 Type 2 diabetes mellitus 03/08/2017 Overview (06/17/2025): Uncontrolled And with neuropathy Allergic rhinitis 02/09/2017 06/17/2025 Overview (06/17/2025): Allergic rhinitis Cough 02/09/2017 06/17/2025 Overview (06/17/2025): Cough Dyspnea 02/09/2017 06/17/2025 Restrictive lung disease 02/09/2017 Asthma 02/09/2017 06/17/2025 Overview (06/17/2025): Asthma Cerebrovascular accident 06/24/2015 Overview (06/17/2025): Stroke Hematochezia 02/21/2015 06/17/2025 Chronic neck and back pain 11/27/2014 0 06/17/2025 Coronary artery disease due to type 2 diabetes mellitus 11/27/2009 06/17/2025 Diabetes 1.5, 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 06/17/2025 Encounters Date Type Department Care Team Description 06/17/2025 10:52 AM EDT - 06/17/2025 11:59 PM EDT Hospital Encounter [facility] Clinic Radiology [address], [address] [place] [address] Low back pain, unspecified back pain laterality, unspecified chronicity, unspecified whether sciatica present Discharge Disposition: Home or Self Care 06/17/2025 9:30 AM EDT Consult [facility] Medicine Specialties [address] [place] [address] Aicha, Kerline R, ADVERTISING SALES ASSISTANT Muscle weakness (Primary Dx); Frequent falls; Low back pain, unspecified back pain laterality, unspecified chronicity, unspecified whether sciatica present; Foot drop, left 06/17/2025 Travel 06/10/2025 Travel 05/05/2025 Telephone [facility] Medicine Specialties [address], [address] [place] [address] None, None from Last 3 Months Immunizations Immunization Administration Dates Next Due Hep A, Adult 09/20/2018 Influenza, Injectable, MDCK, trivalent, PF 08/17 Influenza, injectable, MDCK, preservative free, quadrivalent 09/20/2018 Influenza, injectable, quadrivalent, preservativ e free 09/01/2020 Family History Medical History Relation Name Comments Depression Father nickolas delgado Diabetes Father nickolas delgado Cancer Maternal Grandfather lewis phipot Diabetes Maternal Grandfather lewis phipot Heart disease Maternal Grandfather lewis phimary Autoimmune disease Mother jad eals Diabetes Mother jad eals Immunodeficiency Mother jad eals Kidney disease Mother jad eals Rheumatologic disease Mother jad eals Diabetes Paternal Grandmother johnathan delgado Relation Name Status Comments Father nickolas delgado Maternal Grandfather lewis grider Mother jad vaughnls Paternal Grandmother johnathan delgado Alive Social History Tobacco Use Types Packs/Day [...] Mass Index 31.16 06/17/2025 9:27 AM EDT Plan of Treatment Upcoming Encounters Date Type Department Care Team (Late st Contact Info) Description 09/03/2025 11:30 AM EDT Office Visit [facility] [address], [address] [place] [phone] Ronal Clemens MD [address] [place] [address] 09/23/2025 11:00 AM EDT Office Visit [place] [facility] [address], [address] [place] [address] Kerline Holcomb R, ADVERTISING SALES ASSISTANT [address] [place] [address] Health Maintenance Due Date Last Done Comments [facility]-HIV Screening 1970 [facility]-Hepatitis C Screening 1970 [...] 2020 [facility]-Zoster Vaccines (1 of 2) 2020 [id number] Vaccine (3 - 2023- season) 2024 03/10/2021, 02/11/2021 [facility]-Influenza Vaccine (#1) 07/28/202508/17, 09/01/2020, 09/20/2018 [facility]-Depression Screening 06/17/2026 025, 06/17/2025 [facility]-Hepatitis A Vaccines Aged Out 09/20/2018 No longer eligible based on patient's age to complete this topic [facility]-Obesity Intervention Completed 06/17/2025 HPV Vaccines Aged Out No longer eligi [...] on patient's age to complete this topic Procedures Procedure Name Priority Date/Time Associated Diagnosis Comments XR SACROILIAC JOINTS 3+ VIEWS Routine 06/17/2025 11:05 AM EDT Low back pain, unspecified back pain laterality, unspecified chronicity, unspecified whether sciatica present DNA ISOLATION AND HOLD (HLA) Routine 06/17/2025 10:50 AM EDT Low back pain, unspecified back pain laterality, unspecified chronicity, unspecified whether sciatica present EXTENDED MYOSITIS PANEL(SO) Routine 06/17/2025 10:50 AM EDT Muscle weakness CREATINE KINASE, TOTAL, PLASMA Routine 06/17/2025 10:50 AM EDT Muscle weakness ALDOLASE Routine 06/17/2025 10:50 AM EDT Muscle weakness ANTINUCLEAR ANTIBODY (CHAIM) WITH HEP-2 SUBSTRATE, IGG BY IFA (SO) Routine 06/17/2025 10:50 AM EDT Muscle weakness DOUBLE-STRANDED DNA (DSDNA) ANTIBODY, IGG BY IFA (SO) Routine 06/17/2025 10:50 AM EDT Muscle weakness C3 COMPLEMENT Routine 06/17/2025 10:50 AM EDT Muscle weakness C4 COMPLEMENT Routine 06/17/2025 10:50 AM EDT Muscle weakness CBC WITH AUTO DIFFERENTIAL Routine 06/17/2025 10:50 AM EDT Muscle weakness MARSHALL (OMAR) ANTIBODY, IGG (SO) Routine 06/17/2025 10:50 AM EDT Muscle weakness THYROID PEROXIDASE ANTIBODY Routine 06/17/2025 10:50 AM EDT Muscle weakness TSH Routine 06/17/2025 10:50 AM EDT Muscle weakness HLA B27 TYPING Routine 06/17/2025 10:50 AM EDT Low back pain, unspecified back pain laterality, unspecified chronicity, unspecified whether sciatica present ANCA VASCULITIS PROFILE (SO) Routine 06/17/2025 10:50 AM EDT Foot drop, left from Last 3 Months Results * XR Sacroiliac Joints 3+ Views [...] MD on 06/17/2025 11:49 AM November Aicha ADVERTISING SALES ASSISTANT IMG XR PROCEDURES Final Res ult * ANCA Vasculitis Profile (06/17/2025 10:50 AM EDT) Myeloperoxidase (MPO) Ab, IgG 0 0 - 19 AU/mL 06/19/2025 2:50 PM EDT [facility] Serine Proteinase 3 (PR3) Ab, IgG 0 0 - 19 AU/mL 06/19/2025 2:50 PM EDT [facility] ANCA IFA Titer <1:20 <1:20 06/19/2025 2:50 PM EDT [facility] ([employer]) ANCA IFA Pattern None Detected None Detected 06/19/2025 2:50 PM EDT [facility] ([employer]) Blood Venous blood specimen / Unknown Venipuncture / Unknown 06/17/2025 10:50 AM EDT 06/17/2025 10:51 AM EDT Narrative [facility] ([facility]) - 06/19/2025 2:50 PM EDT INTERPRETIVE INFORMATION: [...] collagen vascular disease or arthritis. Performed By: [facility] [address] [place] [id number] Healthcare Prof: Galen Pereira MD, PhD CLIA Number: [id number] november R Aicha GORDON LAB BLOOD ORDERABLES Final Result [facility]) [address] [place] [address] * DNA Isolation and Hold (HLA) (06/17/2025 10:50 AM EDT) Blood Venous blood specimen / Unknown Venipuncture / Unknown 06/17/2025 10:50 AM EDT 06/17/2025 10:51 AM EDT november Aicha GORDON LAB MOLECULAR DIAGNOSTICS O RDERABLES Final Result [facility] [address] [place] [address], * Marshall (OMAR) Antibody, IgG (06/17/2025 10:50 AM EDT) Pathologist Renny Marshall (OMAR) Antibody, IgG 1 0 - 40 AU/mL 06/19/2025 3:00 PM EDT [facility]) Serum 06/17/2025 10:5 0 AM EDT 06/17/2025 10:51 AM EDT Narrative [facility]) - 06/19/2025 3:00 PM EDT INTERPRETIVE INFORMATION: [...] associations with SLE clinical manifestations. Performed By: [facility] [address] [place] [address] Healthcare Prof: Galen Pereira MD, PhD CLIA Number: [id number] November Aicha ADVERTISING SALES ASSISTANT LAB REF LAB BLOOD AND FLUID ORD Final Result [facility] ([employer]) [address] [place] [address] * Myositis Antibody Panel (SO) (06/17/2025 10:50 AM EDT) Marshall/CUSTOMER ASSOCIATE (OMAR) Ab, IgG 2 0 - 19 Units 06/23/2025 7:22 PM EDT [facility] ([employer]) SSA-52 (RO52) (OMAR) Antibody, IgG 2 0 - 40 AU/mL 06/23/2025 7:22 PM EDT [facility] ([employer]) Treasure-1 (Histidyl-tRNA Synthetase) Ab, IgG 1 0 - 40 AU/mL 06/23/2025 7:22 PM EDT [facility] ([employer] [facility]) PM/Scl 100 Antibody, IgG Negative Negative 06/23/2025 7:22 PM EDT [facility] ([employer] [facility]) SD-2 (NUCLEAR HELICASE PROTEIN) ANTIBODY Negative Negative 06/23/2025 7:22 PM EDT [facility] ([facility]) PL-7 (THREONYL-TRNA SYNTHETASE) ANTIBODY Negative Negative 06/23/2025 7:22 PM EDT [facility] ([employer] [facility]) PL-12 (ALANYL-TRNA SYNTHETASE) ANTIBODY Negative Negative 06/23/2025 7:22 PM EDT [facility] ([employer]) P155/140 ANTIBODY Negative Negative 06/23/2025 7:22 PM EDT [facility] ([employer]) EJ (GLYCYL-TRNA SYNTHETASE) ANTIBODY Negative Negative 06/23/2025 7:22 PM EDT [facility] ([employer]) KU ANTIBODY Negative Negative 06/23/2025 7:22 PM EDT [facility] ([facility] [employer]) SRP (SIGNAL RECOGNITION PARTICLE) AB Negative Negative 06/23/2025 7:22 PM EDT [facility] ([employer]) OJ (ISOLEUCYL-TRNA SYNTHETASE) ANTIBODY Negative Negative 06/23/2025 7:22 PM EDT [facility] ([employer]) SSA-60 (RO60) (OMAR) Antibody, IgG 0 0 - 40 AU/mL 06/23/2025 7:22 PM EDT [facility] ([facility] [employer] [facility]) Fibrillarin (U3 CUSTOMER ASSOCIATE) Ab, IgG Negative Negative 06/23/2025 7:22 PM EDT [facility] ([facility]) MYOSITIS PANEL INTERPRETIVE DATA See Note 06/23/2025 7:22 PM EDT [facility] ([employer]) SAE1 (SUMO ACTIVATING ENZYME) AB Negative Negative 06/23/2025 7:22 PM EDT [facility] ([employer]) MDA5 (CADM-140) AB Negative Negative 06/23/2025 7:22 PM EDT [facility] ([employer]) NXP2 (NUCLEAR MATRIX PROTEIN-2) AB Negative Negative 06/23/2025 7:22 PM EDT [facility] ([facility]) TIF-1 GAMMA (155 KDA) AB Negative Negative 06/23/2025 7:22 PM EDT [facility] ([employer]) Anti Nuc Ab Screen <1:80 <1:80 06/23/2025 7:22 PM EDT [facility] ([facility] [employer]) CHAIM INTERPRETIVE COMMENT See Note 06/23/2025 7:22 PM EDT [facility] ([facility]) Bunch (tyrosyl-tRNA synthetase) Ab Negative Negative 06/23/2025 7:22 PM EDT [facility] ([facility]) Ks (asparaginyl-tRN A synthetase) Ab Negative Negative 06/23/2025 7:22 PM EDT [facility] ([facility]) Zo (phenylalanyl-tR NA synthetase) Ab Negative Negative 06/23/2025 7:22 PM EDT [facility] ([facility]) HMGCR Antibody Screen Negative Negative 06/23/2025 7:22 PM EDT [facility] ([facility]) Blood Venous blood specimen / Unknown Venipuncture / Unknown 06/17/2025 10:50 AM EDT 06/17/2025 10:51 AM EDT Narrative [facility] ([facility]) - 06/23/2025 7:22 PM EDT [...] . . . . . . X Marshall/CUSTOMER ASSOCIATE (OMAR) Ab, IgG . . . . [...] . . . . X Fibrillarin (U3 CUSTOMER ASSOCIATE) Ab, IgG . . . . . [...] Ab . . . . X HMGCR (1-Idbtkdy-2-Methylglutaryl Coenzyme A Reductase) . . . . . . . . X This test was developed and its performance characteristics determined by [facility]. It has not been cleared or approved [...] (interstitial lung disease), Raynaud phenomenon, arthritis, and floor mechanic's hands (implicated in antisynthetase syndrome). INTERPRETIVE INFORMATION: Marshall/CUSTOMER ASSOCIATE (OMAR) Antibody, IgG 19 Units or Less ............. Negative 20 to 39 Units ............... Weak Positive 40 to 80 Units ............... Moderate Positive 81 Units or greater .......... Strong Positive Marshall/CUSTOMER ASSOCIATE antibodies are frequently seen in patients with mixed connective tissue disease (MCTD) and are also associated with other systemic autoimmune rheumatic diseases (SARDs) such as systemic lupus erythematosus (SLE), systemic sclerosis, and myositis. Antibodies targeting the Marshall/CUSTOMER ASSOCIATE antigenic complex also recognize Marshall antigens, therefore, [...] developed and its performance characteristics determined by [facility]. It has not been cleared or approved [...] Greater .......... Positive Interpretive Information: Fibrillarin (U3 CUSTOMER ASSOCIATE) Antibody, IgG The presence of fibrillarin (U3-CUSTOMER ASSOCIATE) IgG antibodies in association with an CHAIM [...] a multi-ethnic cohort of SSc patients (n=98), U3-CUSTOMER ASSOCIATE antibodies detected by immunoblot had an agreement of 98.9 percent with the gold standard immunoprecipitation (IP) assay. Approximately 71 percent (5/7) of the borderline U3-CUSTOMER ASSOCIATE results with CHAIM nucleolar pattern in this cohort were IP negative. This test was developed and its performance characteristics determined by [facility]. It has not been cleared or approved [...] further testing will be performed. Performed By: [facility] [address] [place] [id number] Healthcare Prof: Gaeln Pereira MD, PhD CLIA Number: [id number] november R Aicha ADVERTISING SALES ASSISTANT LAB BLOOD ORDERABLES Final Result [facility]) [address] [place] [address] * Creatine Kinase (CK), Total (06/17/2025 10:50 AM EDT) Creatine Kinase, Plasma 180 49 - 320 U/L 06/17/2025 12:[address] [facility] Blood Venous blood specimen / Unknown Venipuncture / Unknown 06/17/2025 10:50 AM EDT 06/17/2025 10:51 AM EDT november R Aicha ADVERTISING SALES ASSISTANT LAB BLOOD ORDERABLES Final Result Performing Organization Address City/[facility]/ZIP Co de Phone Number [facility] [address] [place] [address] * HLA B27 Typing (06/17/2025 10:50 AM EDT) Blood Venous blood specimen / Unknown Venipuncture / Unknown 06/17/2025 10:50 AM EDT 06/17/2025 10:51 AM EDT november Aicha ADVERTISING SALES ASSISTANT LAB BLOOD ORDERABLES Final Result Performing Organization Address City/[facility]/ZIP Co de Phone Number [facility] [address] [place] [address], [place] * Thyroid Peroxidase Antibody (06/17/2025 10:50 AM EDT) Thyroid Peroxidase Antibody <5 <=8 IU/mL 06/17/2025 2:18 PM EDT [facility] Blood Venous blood specimen / Unknown Venipuncture / Unknown 06/17/2025 10:50 AM EDT 06/17/2025 10:51 AM EDT november Aicha ADVERTISING SALES ASSISTANT LAB BLOOD ORDERABLES Final Result Performing Organization Address City/[facility]/ZIP Co de Phone Number [facility] [address] [place] [address] * Double-Stranded DNA (dsDNA) Antibody, IgG by IFA (06/17/2025 10:50 AM EDT) Double-Strande d DNA (dsDNA) Ab IgG IFA <1:10 <1:10 06/19/2025 9:48 AM EDT [facility] ([facility]) Blood Venous blood specimen / Unknown Venipuncture / Unknown 06/17/2025 10:50 AM EDT 06/17/2025 10:51 AM EDT Narrative [facility]) - 06/19/2025 9:48 AM EDT INTERPRETIVE INFORMATION: [...] recommendations for testing may be found at [email or web address]. Performed By: [facility] [address] [place] [address] Healthcare Prof: Galen Pereira MD, PhD CLIA Number: [id number] november Aicha ADVERTISING SALES ASSISTANT LAB BLOOD ORDERABLES Final Result [facility] [employer] [facility]) [address] [place] [address] * Aldolase (06/17/2025 10:50 AM EDT) Pathologist [facility] ALDOLASE 4.2 1.2 - 7.6 U/L 06/18/2025 11:54 PM EDT [facility] ([facility]) Blood Venous blood specimen / Unknown Venipuncture / Unknown 06/17/2025 10:50 AM EDT 06/17/2025 10:51 AM EDT Narrative [facility]) - 06/18/2025 11:54 PM EDT REFERENCE INTERVAL: Aldolase Access complete set of age- and/or gender-specific reference intervals for this test in the [facility] ([employer]). Performed By: [facility] [address] [place] [address] Healthcare Prof: Galen Pereira MD, PhD CLIA Number: [id number] november Aicha ADVERTISING SALES ASSISTANT LAB BLOOD ORDERABLES Final Result [facility]) [address] [place] [id number] * (ABNORMAL) CBC and Differential (06/17/2025 10:50 AM EDT) WBC Count 7.54 3.70 - 10.30 10*3/uL LAB HEMATOLOGY METHOD 06/17/2025 11:[address] [facility] RBC Count 4.83 4.60 - 6.10 10*6/uL LAB HEMATOLOGY METHOD 06/17/2025 11:[address] [facility] HGB 13.7 13.7 - 17.5 g/dL LAB HEMATOLOGY METHOD 06/17/2025 11:[address] [facility] HCT 43.1 40.0 - 51.0 % LAB HEMATOLOGY METHOD 06/17/2025 11:[address] [facility] Platelet Count 198 155 - 369 10*3/uL LAB HEMATOLOGY METHOD 06/17/2025 11:[address] [facility] MCV 89 79 - 98 fL LAB HEMATOLOGY METHOD 06/17/2025 11:[address] [facility] MCH 28.4 26.0 - 32.0 pg LAB HEMATOLOGY METHOD 06/17/2025 11:[address] [facility] MCHC 31.8 30.7 - 35.5 g/dL LAB HEMATOLOGY METHOD 06/17/2025 11:[address] [facility] RDW 14.2 11.5 - 14.5 % LAB HEMATOLOGY METHOD 06/17/2025 11:[address] [facility] MPV 10.5 8.8 - 12.5 fL LAB HEMATOLOGY METHOD 06/17/2025 11:[address] [facility] nRBC 0.0 <=0.0 per 100 WBCs LAB HEMATOLOGY METHOD 06/17/2025 11:[address] [facility] Differential Type Automated LAB HEMATOLOGY METHOD 06/17/2025 11:[address] [facility] Neutrophils % 80 % LAB HEMATOLOGY METHOD 06/17/2025 11:[address] [facility] Lymphocytes % 8 % LAB HEMATOLOGY METHOD 06/17/2025 11:[address] [facility] Monocytes % 8 % LAB HEMATOLOGY METHOD 06/17/2025 11:[address] [facility] Eosinophils % 2 % LAB HEMATOLOGY METHOD 06/17/2025 11:[address] [facility] Basophils % 1 % LAB HEMATOLOGY METHOD 06/17/2025 11:[address] [facility] Immature Granulocytes % 1 % LAB HEMATOLOGY METHOD 06/17/2025 11:[address] [facility] Neutrophils Absolute 6.05 1.60 - 6.10 10*3/uL LAB HEMATOLOGY METHOD 06/17/2025 11:[address] [facility] Lymphocytes Absolute 0.59(L) 1.20 - 3.90 10*3/uL LAB HEMATOLOGY METHOD 06/17/2025 11:[address] [facility] Monocytes Absolute 0.63 0.30 - 0.90 10*3/uL LAB HEMATOLOGY METHOD 06/17/2025 11:[address] [facility] Eosinophils Absolute 0.18 0.00 - 0.50 10*3/uL LAB HEMATOLOGY METHOD 06/17/2025 11:[address] [facility] Basophils Absolute 0.04 0.00 - 0.10 10*3/uL LAB HEMATOLOGY METHOD 06/17/2025 11:[address] [facility] Immature Granulocytes Absolute 0.05 0.00 - 0.06 10*3/uL LAB HEMATOLOGY METHOD 06/17/2025 11:[address] [facility] Blood Venous blood specimen / Unknown Venipuncture / Unknown 06/17/2025 10:50 AM EDT 06/17/2025 10:[address] [facility] - 06/17/2025 11:47 AM EDT Therapeutic decision making should be based on absolute values, rather than percentages. November R Aicha ADVERTISING SALES ASSISTANT LAB BLOOD ORDERABLES Final Result Performing Organization Address City/[facility] Co de Phone Number [facility] [address] [place] [address] * C3 Complement (06/17/2025 10:50 AM EDT) C3 Complement 158 84 - 166 mg/dL 06/17/2025 1:12 PM EDT [facility] Blood Venous blood specimen / Unknown Venipuncture / Unknown 06/17/2025 10:50 AM EDT 06/17/2025 10:51 AM EDT November Aicha ADVERTISING SALES ASSISTANT LAB BLOOD ORDERABLES Final Result Performing Organization Address [facility] Co de Phone Number [facility] [address] [place] [address] * C4 Complement (06/17/2025 10:50 AM EDT) C4 Complement 29 13 - 36 mg/dL 06/17/2025 1:12 PM EDT [facility] Blood Venous blood specimen / Unknown Venipuncture / Unknown 06/17/2025 10:50 AM EDT 06/17/2025 10:51 AM EDT November Aicha ADVERTISING SALES ASSISTANT LAB BLOOD ORDERABLES Final Result Performing Organization Address City/[facility] FACILITY Co de Phone Number [facility] [address] [place] [address] * ANTI NUCLEAR AB (06/17/2025 10:50 AM EDT) CHAIM INTERPRETIVE COMMENT See Note 06/19/2025 8:12 PM EDT [facility] ([employer]) Anti Nuc Ab Screen <1:80 <1:80 06/19/2025 8:12 PM EDT [facility] (ELIZA) Blood Venous blood specimen / Unknown Venipuncture / Unknown 06/17/2025 10:50 AM EDT 06/17/2025 10:51 AM EDT Narrative [facility] ([place]IZA) - 06/19/2025 8:12 PM EDT Antinuclear antibodies [...] not necessarily rule out SARD. Performed By: [facility] [address] [place] [address] Healthcare Prof: Galen Pereira MD, PhD CLIA Number: [id number] november R Aicha ADVERTISING SALES ASSISTANT LAB BLOOD ORDERABLES Final Result [facility] (ELIZA) [address] [place] [address] * (ABNORMAL) Thyroid Stimulating Hormone, Plasma (06/17/2025 10:50 AM EDT) Thyroid Stimulating Hormone, Plasma 4.29(H) 0.40 - 4.20 uIU/mL 06/17/2025 12:[address] [facility] Blood Venous blood specimen / Unknown Venipuncture / Unknown 06/17/2025 10:50 AM EDT 06/17/2025 10:51 AM EDT november Aicha ADVERTISING SALES ASSISTANT LAB BLOOD ORDERABLES Final Result [facility] [address] [place] [address] from Last 3 Months Insurance [facility] [employer] [facility] MEDICAID Care Teams Bisque Grader Relationship Specialty Start Date End Date Quyen Vincent DO [address] [place] [address] PCP - General 04/09/21
--- OUTSIDE RECORDS SUMMARY | 2025-07-11 15:13 | XMS_ITS | Encounter Summary ---
[facility] Organization [facility] Address [address] [place] [id number] Care Team Providers Care Middle School Football Coach Name Role Phone Quyen Vincent DO Primary Care Provider [phone] Encounter Details Date Type Department Care Team (Late st Contact Info) Description 07/06/2025 Results Follow-Up [facility] [address] [facility] [address] [place] [address] Jennifer Villanueva PA [address] [facility] [address] [place] [address] Social History Tobacco Use Types [...] more drinks on one occasion? Monthly 11/29/2022 [facility] [place] [facility] - Occupational Stress [...] Description 11/03/2025 1:00 PM EST Office Visit [facility] [address] [facility] [address] [place] [address] Jennifer Villanueva PA [address] [facility] [address] [place] [address] Scheduled Procedures Name Priority Associated Diagnoses Date/Ti me LEFT HEART CATH w/cors Unstable angina documented as of this encounter Visit Diagnoses Not on filedocumented in this encounter Care Teams Middle School Football Coach Relationship Specialty Start Date End Date Quyen Vincent DO [facility] [address] [address] PCP - General Family Medicine 02/17/17 documented as of this encounter
--- OUTSIDE RECORDS SUMMARY | 2025-07-11 15:13 | XMS_ITS | Encounter Summary ---
Author Organization [employer] ([place], [place], [place], [place]) Address [address] [place] [address] Care Team Providers Care Extrusion Die Corrector Name Role Phone Unavailable Primary Care Provider Unavailabl e Encounter Details Date Type Department Care Team (Late st Contact Info) Description 01/20/2020 Transcribed Document [facility] [place] [address] [place] [address] ProviderLora MD [address] [place], [place] [id number] Social History Tobacco Use Types Packs/Day Years Used Date Smoking Tobacco: Never Assessed Sex and Gender Information Value Date Recorded Sex Assigned at Not on file Legal Sex Male 5:25 PM CDT Gender Identity Not on file Sexual Orientation Not on file documented as of this encounter Miscellaneous Notes * Cerner Conversion Note - Historical ProviderMD - 01/20/2020 1:07 PM OIL EXPLORATION ENGINEER Initial Discharge Planning Entered On: 01/20/2020 13:12 [...]
--- OUTSIDE RECORDS SUMMARY | 2025-07-11 15:13 | XMS_ITS | Encounter Summary ---
Author Organization [employer] ([place], [place], [place], [place]) Address [address] [place] [address] Care Team Providers Care Machine Pecan Gatherer Name Role Phone Unavailable Primary Care Provider Unavailabl e Encounter Details Date Type Department Care Team (Late st Contact Info) Description 01/19/2020 Transcribed Document [facility] [place] Family Medicine [address] [place] [address] ProviderLora MD [address] [place] [address] Social History Tobacco Use Types Packs/Day Years Used Date Smoking Tobacco: Never Assessed Sex and Gender Information Value Date Recorded Sex Assigned at Not on file Legal Sex Male 5:25 PM CDT Gender Identity Not on file Sexual Orientation Not on file documented as of this encounter Miscellaneous Notes * Cerner Conversion Note - Historical ProviderMD - 01/19/2020 5:00 AM ROBOTICS APPLICATION ENGINEER Chart Check - Review Order Profile Entered [...]
--- OUTSIDE RECORDS SUMMARY | 2025-07-11 15:13 | XMS_ITS | Encounter Summary ---
Author Organization Healthcare Address [address] [place] [address] Care Team Providers Care Qa Software Tester Name Role Phone Quyen Vincent Primary Care Provider [phone] Encounter Details Date Type Department Care Team (Late st Contact Info) Description 05/05/2025 Telephone [place] [facility] Medicine Special[facility] [address] [place] [address] None, None [address] [place], [place] [id number] Social History Tobacco Use Types Packs/Day Years [...] Notes * Telephone Encounter - Sidra Marshall Faith - 05/05/2025 3:02 PM EDT Clinical Concern/Question Reason for Call: Pt is calling us due to him being called by the referring office and telling him we could not reach this pt to schedule. I updated pts phone and sent this note to call him back to schedule. Best contact number: [phone] (mobile) Optimal time of day to reach [...] will receive notification of the communication/outcome via MyChart. documented in this encounter Plan of Treatment Upcoming Encounters Date Type Department Care Team (Late st Contact Info) Description 09/03/2025 11:30 AM EDT Office Visit [facility] [place] [address] [facility], [address] [place] [address] Ronal Clemens MD [address] [place] [address] 09/23/2025 11:00 AM EDT Office Visit [place] [facility] Medicine Special[facility] [address] [place] [address] Aicha November R, SENIOR MEDICAL WRITER [address] [place] [address] documented as of this encounter Visit Diagnoses Not on filedocumented in this encounter Care Teams Qa Software Tester Relationship Specialty Start Date End Date Quyen Vincent DO [address] [place] [address] PCP - General 04/09/21 documented as of this encounter
--- OUTSIDE RECORDS SUMMARY | 2025-07-11 15:13 | XMS_ITS | Encounter Summary ---
Author Organization [employer] ([place], [place], [place], [place]) Address [address] [place] [address] Care Team Providers Care Business Process Representative Name Role Phone Unavailable Primary Care Provider Unavailabl e Encounter Details Date Type Department Care Team (Late st Contact Info) Description 01/21/2020 Transcribed Document [facility] Radiology [address] [place] [address] Nikole Bravo MD [address] [place] [address] Social History Tobacco Use Types Packs/Day [...] Date 01/21/2020 Primary Care Provider ADRIAN DELACRUZ DO-[facility] Discharge Diagnosis Diabetic foot ulcer/cellulitis. Osteomyelitis ruled out with MRI Coronary artery disease Diabetes mellitus. Hypertension. Hospital Course 49 yo male with history with CAD (PCI 2013), HTN, and DM presented to outside facility with complaints of redness of left foot, fever and chills. Pt transferred to [facility] for further evaluation and treatment. Pt [...] home IV antibiotics versus IV antibiotics at [facility] infectious office patient can be discharged on ceftriaxone 2 g IV daily. With wound dressing at [facility] infectious disease office and per his Podiatery [...] -- Start: 01/18/20 17:51:00 EST, 75 gm carbs:[id number] arturo Patient Discharge Summary Orders Discharge Activity: [...]
--- OUTSIDE RECORDS SUMMARY | 2025-07-11 15:13 | XMS_ITS | Encounter Summary ---
Author Organization [employer] ([place], [place], [place], [place]) Address [address] [place] [address] Care Team Providers Care Bench Repair Technician Name Role Phone Unavailable Primary Care Provider Unavailabl e Encounter Details Date Type Department Care Team (Late st Contact Info) Description 01/21/2020 Transcribed Document [facility] [place] Medicine [address] [place] [address] ProviderLora MD [address] [place], [place] [id number] Social History Tobacco Use Types Packs/Day Years Used Date Smoking Tobacco: Never Assessed Sex and Gender Information Value Date Recorded Sex Assigned at Not on file Legal Sex Male 5:25 PM CDT Gender Identity Not on file Sexual Orientation Not on file documented as of this encounter Miscellaneous Notes * Cerner Conversion Note - Lora Mcdaniel MD - 01/21/2020 11:17 AM CHAINSTITCH SEAT JOINER Patient Education Materials Follows: Diabetes Mellitus and [...] that you work with a diet and digital strategy specialist (dietitian) to make a meal plan [...] provider. ??? Work with a counselor or scientific software developer to identify strategies to manage stress and any emotional and social challenges. Questions to ask a health care provider ??? Do I need to meet with a scientific software developer? Do I need to meet with a dietitian? What number can I call if I have questions? When are the best times to check my blood glucose? Where to find more information: ??? [place] Diabetes Association: diabetes.org ??? Academy of Nutrition and Dietetics: www.eatright.org ??? National [place] of Diabetes and Digestive and Kidney Diseases (NIH): www.niddk.nih.gov Summary ??? A healthy meal plan will help you control your blood glucose and maintain a healthy lifestyle. ??? Working with a diet and digital strategy specialist (dietitian) can help you make a [...] 08/10/2006 Document Revised: 06/13/2018 Document Reviewed: 12/18/2017 OMG Interactive Patient Education ? 2019 OMG Inc. Carbohydrate Counting for Diabetes Mellitus, Adult [...] different for every person. A diet and digital strategy specialist (registered dietitian) can help you make [...] of carbohydrates: ? hamburger bun or ? Wolof muffin. ? oz (15 mL) syrup. ? [...] foods that contain carbohydrates: ??? Rice. ??? [place]. ??? Milk. ??? Strawberries. 2. Calculate how [...] manage your diabetes. ??? A diet and digital strategy specialist (registered dietitian) can help you make a meal plan and calculate how many carbohydrates you should have at each meal and snack. This information is not intended to replace advice given to you by your health care provider. Make sure you discuss any questions you have with your health care provider. Document Released: 11/13/2006 Document Revised: 05/23/2018 Document Reviewed: 04/26/2017 OMG Interactive Patient Education ? 2019 OMG Inc. Incision and Drainage, Care After Refer [...] Follow these instructions at home: ??? Take brrm-smq-nyqprxd and prescription medicines only as told by [...] and water are not available, use hand bicycle technician. ? When you should remove your dressing. [...] 02/04/2013 Document Revised: 04/14/2017 Document Reviewed: 09/02/2016 OMG Interactive Patient Education ? 2019 [employer] Inc[employer] Diabetes and Foot Care Diabetes may cause [...] 04/22/2014 Elsevier Interactive Patient Education ? 2017 ElsePlehn Analytics Inc. documented in this encounter Plan of Treatment Not on file documented as of this encounter Visit Diagnoses Not on filedocumented in this encounter
--- OUTSIDE RECORDS SUMMARY | 2025-07-11 15:13 | XMS_ITS | Encounter Summary ---
Author Organization [employer] ([place], [place], [place], [place]) Address [address] [place] [address] Care Team Providers Care Green Lumber Grader Name Role Phone Unavailable Primary Care Provider Unavailabl e Encounter Details Date Type Department Care Team (Late st Contact Info) Description 01/21/2020 Transcribed Document [facility] [place] [address] [place] [address] ProviderLora MD [address] [place] [address] Social History Tobacco Use Types Packs/Day Years Used Date Smoking Tobacco: Never Assessed Sex and Gender Information Value Date Recorded Sex Assigned at Not on file Legal Sex Male 5:25 PM CDT Gender Identity Not on file Sexual Orientation Not on file documented as of this encounter Miscellaneous Notes * Cerner Conversion Note - Lora ProviderMD - 01/21/2020 10:45 AM LEAD NEURODIAGNOSTIC TECHNOLOGIST UM Authorization Entered On: 01/21/2020 10:45 EST Performed On: 01/21/2020 10:45 EST by JOAQUIN PETTY RN Primary Insurance Authorization Authorization and Policy Numbers : Insurance 1 Health Plan: ANTH [employer] Policy Number: [id number] Authorization Number: Insurance Primary Name : ANTH HMOPPO Policy Number: [id number] Authorization Status-Primary : Admit approved Reference Number-Primary : [id number] Number of Days Authorized-Primary : 1 Day(s) Authorized Service Begin Date-Primary : 01/18/2020 EST Authorized Service End Date-Primary : 01/19/2020 EST Authorization Comments-Primary : 2 days los approved, nrd 01/20, clinicals faxed via [employer] for C/S Historical Authorization Comments-Primary : Comment 1: Submitted Inpt Auth on Availity with clinicals attached. (HORACIO REGALADO Rn-Utilization Review 01/19/2020 15:14) JOAQUIN PETTY RN - 01/21/2020 10:45 EST Electronically signed by Stefanie [facility] Conversion Tax Services Intern Cerner at 03/17/2023 9:23 AM CDT documented in this encounter Plan of Treatment Not on file documented as of this encounter Visit Diagnoses Not on filedocumented in this encounter
--- OUTSIDE RECORDS SUMMARY | 2025-07-11 15:13 | XMS_ITS | Encounter Summary ---
Author Organization [employer] ([place], [place], [place], [place]) Address [address] [place] [address] Care Team Providers Care Roto Mixer Operator Name Role Phone Unavailable Primary Care Provider Unavailabl e Encounter Details Date Type Department Care Team (Late st Contact Info) Description 01/21/2020 Transcribed Document [facility] Family Medicine [facility] [place] [address] ProviderLora MD [address] [place], [place] [phone] Social History Tobacco Use Types Packs/Day Years Used Date Smoking Tobacco: Never Assessed Sex and Gender Information Value Date Recorded Sex Assigned at Not on file Legal Sex Male 5:25 PM CDT Gender Identity Not on file Sexual Orientation Not on file documented as of this encounter Miscellaneous Notes * Cerner Conversion Note - Lora ProviderMD - 01/21/2020 12:11 PM SOUND EFFECTS MANAGER Final Discharge Planning Entered On: 01/21/2020 [...] : Yes Discharge To Care Management : Home/Residential/Usp or Self Care -01 SANDY LEIJA, RN-Care Management - 01/21/2020 12:11 EST Final Narrative Note Final Narrative Note : Discharging today w/f/u appt made w/ID along w/plans for IV abx therapy beginning tomorrow w/[facility] SANDY LEIJA RN-Care Management - 01/21/2020 12:11 EST Electronically signed by [facility], [facility] Conversion Eligibility Analyst Cerner at 03/17/2023 9:46 AM CDT documented in this encounter Plan of Treatment Not on file documented as of this encounter Visit Diagnoses Not on filedocumented in this encounter
--- OUTSIDE RECORDS SUMMARY | 2025-07-11 15:13 | XMS_ITS | Clinical Summary ---
Author Organization [employer] [facility] ([place], [place], [place], [place]) Address [address] [place] [address] Care Team Providers Care Aquatic Life Laborer Name Role Phone Unavailable Primary Care Provider [...]
--- OUTSIDE RECORDS SUMMARY | 2025-07-11 15:13 | XMS_ITS | Encounter Summary ---
Author Organization Healthcare Address [address] [place] [address] Care Team Providers Care Refrigeration Houseman Name Role Phone Quyen Vincent DO Primary Care Provider Encounter Details Date Type Department Care Team (Latest Contact Info) Description 06/10/2025 Travel Social History Tobacco Use Types Packs/Day [...] Description 09/03/2025 11:30 AM EDT Office Visit [facility] [place] [address] [facility], [address] [place] [address] Ronal Clemens MD [address] [place] [address] 09/23/2025 11:00 AM EDT [facility] Visit [facility] [address] [place] [address] Aicha, NovemberN [address] [place] [address] documented as of this encounter Visit Diagnoses Not on filedocumented in this encounter Care Teams Refrigeration Houseman Relationship Specialty Start Date End Date Quyen Vincent DO [address] [place], [place] [address] PCP - General 04/09/21 documented as of this encounter
--- OUTSIDE RECORDS SUMMARY | 2025-07-11 15:13 | XMS_ITS | Encounter Summary ---
Author Organization [employer] ([place], [place], [place], [place]) Address [address] [place] [address] Care Team Providers Care Woods Overseer Name Role Phone Unavailable Primary Care Provider Unavailabl e Encounter Details Date Type Department Care Team (Late st Contact Info) Description 01/19/2020 Transcribed Document [facility] Radiology [address] [place] [address] Paresh Bravo MD [address] [place] [address] Social History Tobacco Use Types Packs/Day [...] History of obstructive sleep apnea / IMO [id number] / Confirmed, Active Problems (11) Angina Coronary [...] 1.10 \ Radiology Results (Last 48 hours) [id number] -- 01/18/2020 16:50 CR Chest 2 Vws [...]
--- OUTSIDE RECORDS SUMMARY | 2025-07-11 15:14 | XMS_ITS | Encounter Summary ---
Author Organization [employer] ([place], [place], [place], [place]) Address [address] [place] [address] Care Team Providers Care Reaming Machine Tender Name Role Phone Unavailable Primary Care Provider Unavailabl e Encounter Details Date Type Department Care Team (Late st Contact Info) Description 01/19/2020 Transcribed Document [facility] [place] Family Medicine [facility] [place] [address] ProviderLora MD [address] [place], [place] [id number] Social History Tobacco Use Types Packs/Day Years Used Date Smoking Tobacco: Never Assessed Sex and Gender Information Value Date Recorded Sex Assigned at Not on file Legal Sex Male 5:25 PM CDT Gender Identity Not on file Sexual Orientation Not on file documented as of this encounter Miscellaneous Notes * Cerner Conversion Note - Lora ProviderMD - 01/19/2020 11:27 AM CLINICAL EDUCATION COORDINATOR Patient: JONATHAN DELGADO Age: 49 years Sex: Male : 1970 Associated Diagnoses: None Author: ESTHELA SCHMITT MD-CAR Basic Information PCP: primary cardiology- Dr Sibley ([facility] for caths) Chief Complaint left foot infection History of Present Illness 49 yo male with history with CAD (PCI 2013), HTN, and DM presented to outside facility with complaints of redness of left foot, fever and chills. Pt transferred to [facility] for further evaluation and treatment. Pt states [...] list: All Problems Angina / SNOMED CT 890149720 / Confirmed Coronary artery disease / SNOMED CT 3979202369 / Confirmed Diabetes mellitus type II / SNOMED CT 20912886 / Confirmed GERD - Gastro-esophageal reflux disease / SNOMED CT 6116133430 / Confirmed History of obstructive sleep apnea / IMO 52984419 / Confirmed Hyperlipidemia / SNOMED CT 19359040 / Confirmed Hypertension / SNOMED CT 99574329 / Confirmed Impaired vision in both eyes / SNOMED CT 441191854 / Confirmed Migraine / SNOMED CT 10321698 / Confirmed Prostate infection / SNOMED CT 31149070 / Confirmed Stented coronary artery / SNOMED CT 2198635858 / Confirmed, Active Problems (11) Angina Coronary [...] family history is negative. Procedure history: Stent ([id number]). bilateral hernia repair. cardiac catheterization with coronary [...] (Current Encounter/Past 24 Hours) ProBNP 202 pg/mL DE 01/18/2020 19:18 Blood Gases (Current Encounter/Past 24 Hours) No Blood Gas Results Found (Past 24 Hours) Radiology Results (Last 48 hours) [id number] -- 01/18/2020 16:50 CR Chest 2 Vws [...]
--- OUTSIDE RECORDS SUMMARY | 2025-07-11 15:14 | XMS_ITS | Encounter Summary ---
Author Organization [employer] ([place], [place], [place], [place]) Address [address] [place] [address] Care Team Providers Care Command And Control Officer Name Role Phone Unavailable Primary Care Provider Unavailabl e Encounter Details Date Type Department Care Team (Late st Contact Info) Description 01/20/2020 Transcribed Document [facility] Cardiology [address] [place] [address] [place] [address] [place] [address] [address] [place] [address] Social History Tobacco Use Types [...] None Author: JAYJAY SAMAYOA MD-CAR Basic Information Sheeter Operator: Dr Sibley ([facility] for caths) Subjective NAD Health Status Current medications: (Selected) Inpatient Medications Ordered Ativan: 0.5 mg, IV Push, Q4H, PRN: Agitation DAPTOmycin + Sodium Chloride 0.9% intravenous solution 50 mL: 900 mg, 18 mL, 136 mL/Hr, IV Piggyback, [id number] DAPTOmycin + Sodium Chloride 0.9% intravenous solution 50 mL: 900 mg, 18 mL, 136 mL/Hr, IV Piggyback, [id number] DuoNeb 0.5 mg-2.5 mg/3 mL inhalation solution: [...] mL: 2 Gram, 100 mL/Hr, IV Piggyback, [id number] Tylenol: 650 mg, Oral, Q4H, PRN: Other [...] of motion, Normal strength. Integumentary: Warm, Dry, [place]. Neurologic: Alert, Oriented. Psychiatric: Cooperative, Appropriate mood & affect. Results Review JAN 20 06:38 \ 13.9 / 6.5 190 / 42.9 \ Radiology Results (Last 48 hours) [id number] -- 01/19/2020 15:12 CR Chest 2 Vws [...] time Continue aspirin, statin Follow-up with primary cardiac surgeon in 2 weeks 01/19/2020 I do not [...]
--- OUTSIDE RECORDS SUMMARY | 2025-07-11 15:14 | XMS_ITS | Encounter Summary ---
Author Organization [employer] ([place], [place], [place], [place]) Address [address] [place] [address] Care Team Providers Care Sales Agent Marine Insurance Name Role Phone Unavailable Primary Care Provider Unavailabl e Encounter Details Date Type Department Care Team (Late st Contact Info) Description 01/20/2020 Transcribed Document [facility] [place] Family Medicine [facility] [place] [address] ProviderLora MD [address] [place], [place] [address] Social History Tobacco Use Types Packs/Day Years Used Date Smoking Tobacco: Never Assessed Sex and Gender Information Value Date Recorded Sex Assigned at Not on file Legal Sex Male 5:25 PM CDT Gender Identity Not on file Sexual Orientation Not on file documented as of this encounter Miscellaneous Notes * Cerner Conversion Note - Historical ProviderMD - 01/20/2020 11:52 AM OUTBOUND CALL CENTER REPRESENTATIVE Patient: JONATHAN DELGADO Age: 49 years Sex: [...] hyperlipidemia and hypertension. He originally presented to [facility] with complaints of left foot pain. States that this pain began about Monday is when he first noticed. He has his took his foot and discovered that there was a wound on the sole of his left foot on the ball of the foot. He does not recall any trauma to the foot. Family stated that due to a disagreement with the flooring installer that was on duty they requested transfer from that facility to here. Labs at outside hospital showed patient was without leukocytosis and was generally unremarkable. Cultures were obtained and patient was given 2 g IV Rocephin. He did receive a foot x-ray while at [facility] but the report did not [...] NGSF Rad: Radiology Results (Last 48 hours) [id number] -- 01/19/2020 15:12 CR Chest 2 Vws [...] Dr. Bravo and GARRY Electronically signed by [facility], [facility] Conversion Science Consultant Cerner at 03/17/2023 9:21 AM CDT documented in this encounter Plan of Treatment Not on file documented as of this encounter Visit Diagnoses Not on filedocumented in this encounter
--- OUTSIDE RECORDS SUMMARY | 2025-07-11 15:14 | XMS_ITS | Encounter Summary ---
Author Organization [facility] ([place], [place], [place], [place]) Address [address] [place] [address] Care Team Providers Care Denture Technician Name Role Phone Unavailable Primary Care Provider Unavailabl e Encounter Details Date Type Department Care Team (Late st Contact Info) Description 01/19/2020 Transcribed Document [facility] [place] Family Medicine [address] [place] [address] ProviderLora MD [address], [place] [id number] Social History Tobacco Use Types Packs/Day Years Used Date Smoking Tobacco: Never Assessed Sex and Gender Information Value Date Recorded Sex Assigned at Not on file Legal Sex Male 5:25 PM CDT Gender Identity Not on file Sexual Orientation Not on file documented as of this encounter Miscellaneous Notes * Cerner Conversion Note - Historical ProviderMD - 01/19/2020 2:05 PM JIG GRINDER Patient: JONATHAN DELGADO Age: 49 years Sex: [...] hyperlipidemia and hypertension. He originally presented to [facility] with complaints of left foot pain. States that this pain began about Monday is when he first noticed. He has his took his foot and discovered that there was a wound on the sole of his left foot on the ball of the foot. He does not recall any trauma to the foot. Family stated that due to a disagreement with the sales record clerk that was on duty they requested transfer from that facility to here. Labs at outside hospital showed patient was without leukocytosis and was generally unremarkable. Cultures were obtained and patient was given 2 g IV Rocephin. He did receive a foot x-ray while at [facility] but the report did not accopany [...] process/pending Rad: Radiology Results (Last 48 hours) [id number] -- 01/18/2020 16:50 CR Chest 2 Vws [...] above plan care Romario Scott APRN [facility] I discussed his situation with Dr. Sevilla documented in this encounter Plan of Treatment Not on file documented as of this encounter Visit Diagnoses Not on filedocumented in this encounter
--- OUTSIDE RECORDS SUMMARY | 2025-07-11 15:14 | XMS_ITS | Referral Summary ---
Author Organization [facility] ([place], [place], [place], [place]) Address [address] [place] [address] Care Team Providers Care Hospital Manager Name Role Phone Unavailable Primary Care [...]
--- OUTSIDE RECORDS SUMMARY | 2025-07-11 15:14 | XMS_ITS | Encounter Summary ---
Author Organization [employer] ([place], [place], [place], [place]) Address [address] [place] [address] Care Team Providers Care Research Microbiologist Name Role Phone Unavailable Primary Care Provider Unavailabl e Encounter Details Date Type Department Care Team (Late st Contact Info) Description 01/20/2020 Transcribed Document [facility] [place] [facility] [place] [address] ProviderLora MD [address] [place] [address] Social History Tobacco Use Types Packs/Day Years Used Date Smoking Tobacco: Never Assessed Sex and Gender Information Value Date Recorded Sex Assigned at Not on file Legal Sex Male 5:25 PM CDT Gender Identity Not on file Sexual Orientation Not on file documented as of this encounter Miscellaneous Notes * Cerner Conversion Note - Lora ProviderMD - 01/20/2020 12:17 PM 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
--- OUTSIDE RECORDS SUMMARY | 2025-07-11 15:14 | XMS_ITS | Encounter Summary ---
Author Organization [facility] ([place], [place], [place], [place]) Address [address] [place] [address] Care Team Providers Care Clinical Admissions Manager Name Role Phone Unavailable Primary Care Provider Unavailabl e Encounter Details Date Type Department Care Team (Late st Contact Info) Description 01/19/2020 Transcribed Document [facility] [place] Family Medicine [address] [place] [address] ProviderLora MD [address] [place] [address] Social History Tobacco Use Types Packs/Day Years Used Date Smoking Tobacco: Never Assessed Sex and Gender Information Value Date Recorded Sex Assigned at Not on file Legal Sex Male 5:25 PM CDT Gender Identity Not on file Sexual Orientation Not on file documented as of this encounter Miscellaneous Notes * Cerner Conversion Note - Historical ProviderMD - 01/19/2020 2:00 AM 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
--- NOTE | 2025-07-11 15:15 | ED_ITS ---
<Statement entered by Gilda Elliott DO - 07/14/25 17:48> I was consulted by the KRYSTAL, and we discussed the complexity of problems being addressed. I approve the treatment and management plan for this patient's care in the emergency department, thus performing a substantial portion of the medical decision making. Gilda Elliott DO Discharge Plan Disposition Patient Disposition: Home, Self-Care Prescriptions Prescriptions: No Action pantoprazole 40 mg tablet,delayed release (DR/EC) 40 mg PO DAILY Patient Comments: TAKE 1 TABLET BY MOUTH EVERY DAY FOR ACID REFLUX sertraline 100 mg tablet 200 mg PO DAILY Patient Comments: TAKE 2 TABLETS BY MOUTH ONCE DAILY (DME) Dexcom G6 Sensor Device See Rx Instructions .ROUTE .MEDSUPPLY Qty: 1 Patient Comments: USE DIRECTED AND CHANGE EVERY 10 DAYS Rx Instructions: As directed (DME) Dexcom G6 Transmitter Device See Rx Instructions .ROUTE .MEDSUPPLY Qty: 1 Patient Comments: USE 1 EACH EVERY 3 (THREE) MONTHS Rx Instructions: As directed insulin lispro [Humalog U-100 Insulin] 100 unit/mL solution 125 unit continuous subcutaneous infusion CONT Patient Comments: USE UP TO 125 UNITS VIA INSULIN PUMP DAILY bupropion HCl 75 mg tablet 75 mg PO BID atorvastatin 80 mg tablet 80 mg PO HS Patient Comments: TAKE 1 TABLET BY MOUTH ONCE DAILY AT BEDTIME folic acid 1 mg tablet 1 mg PO DAILY Patient Comments: TAKE 1 TABLET BY MOUTH ONCE DAILY ergocalciferol (vitamin D2) 1,250 mcg (50,000 unit) capsule 1,250 mcg PO WEEKLY Patient Comments: TAKE 1 CAPSULE BY MOUTH ONCE A WEEK ranolazine 1,000 mg tablet extended release 12 hr 1,000 mg PO BID Qty: 180 1RF aspirin 81 mg tablet,delayed release (DR/EC) 81 mg PO DAILY Qty: 90 3RF Brilinta 90 mg tablet 90 mg PO BID Qty: 180 1RF nitroglycerin [Nitrostat] 0.4 mg tablet, sublingual 0.4 mg sublingual Q5M PRN (Reason: chest pain) Qty: 25 3RF Rx Instructions: do not exceed 3 doses per episode gabapentin 300 mg capsule 300 mg PO HS Referrals Follow up/Referrals: Quyen Vincent [Primary Care Provider, Medical] - See instructions Activity Restrictions/Add. Instructions Additional Instructions/Restrictions: Today you were evaluated in the emergency department after a fall that occurred last night. All of your imaging is negative, please wear the Diallo wrap on your left knee x 1 week. If your knee continues to hurt after that, you may need to follow-up with orthopedics. Please follow-up with your PCP within 24 hours. Please return to the ED for any worsening of your condition. Your glucose today was 313, please monitor this closely. Clinical Impressions Clinical Impression: Fall, Acute pain of left knee Instructions Patient Instructions: How to Prevent Falls Print Language Print Language: Arabic Discharge ED Provider: Gilda Elliott Adult HPI General Chief complaint: Fall Stated complaint: A-O 07/10 fall pain left knee,elbow,neck Time Seen by Provider: 07/11/25 14:49 History of Present Illness HPI narrative: patient is a 54 year old male PMHx CKD, cardiac arrythmia, DMT2, diabtetic neuropathy, obese, who presents to the ED after a near-syncope episode that occured last night. Pt states he was standing in the restroom when he suddenly felt dizzy and fell back, hitting his head and neck on the bathtub. Related Data Home Medications ?Medication ?Instructions ?Recorded ?Confirmed blood-glucose sensor (Dexcom G6 #1 ea 08/27/24 5 Sensor device) blood-glucose transmitter (Dexcom #1 ea 08/27/2406/30 G6 Transmitter device) pantoprazole 40 mg tablet,delayed 40 mg PO DAILY 11/2806/30/25 release atorvastatin 80 mg tablet 80 mg PO HS 12/23/24 5 bupropion HCl 75 mg tablet 75 mg PO BID 12/23/2406/30 gabapentin 300 mg capsule 300 mg PO HS 12/23/24 insulin lispro 100 unit/mL 125 unit continuous subcuta neous 12/23/24 06/30/25 subcutaneous solution (Humalog infusion CONT U-100 Insulin) sertraline 100 mg tablet 200 mg PO DAILY 01/13/2503/21 ergocalciferol (vitamin D2) 1,250 1,250 mcg PO WEEKLY 03/03/25 06/30/25 mcg (50,000 unit) capsule folic acid 1 mg tablet 1 mg PO DAILY 03/03/2506/30 Previous Rx's ?Medication ?Instructions ?Recorded aspirin 81 mg tablet,delayed 81 mg PO DAILY #90 tabs 0 01/06/25 release ranolazine 1,000 mg 1,000 mg PO BID #180 tabs tablet,extended release,12 hr ticagrelor 90 mg tablet (Brilinta) 90 mg PO BID #180 t abs 03/20/25 nitroglycerin 0.4 mg sublingual 0.4 mg sublingual Q5M PRN chest 05/16/25 tablet (Nitrostat) pain #25 tabs Allergies Allergy/AdvReac Type Severity Reaction Status Date / Time Penicillins Allergy Unknown Verified 06/30/25 14:45 allergy reaction empagliflozin (From AdvReac Mild Verified 06/30/25 14:45 Jardiance) semaglutide (From Ozempic) AdvReac Mild Verified 06/30/25 14:45 PFSH PFS Disclaimer: The information contained in this section may have been updated after the patient was seen, as this information can be updated by other users. Medical History (Updated 07/11/25 @ 16:54 by Silvina Curiel APRN) Fluid level behind tympanic membrane of left ear Dizziness Unsteady gait PVC (premature ventricular contraction) PAC (premature atrial contraction) Unsteadiness on feet SOB (shortness of breath) Involuntary movements Numbness and tingling of left arm and leg Diabetes mellitus, type 2 Peripheral arterial disease Claudication Abnormal findings on diagnostic imaging of heart and coronary circulation Blood pressure instability Elevated blood pressure reading with diagnosis of hypertension FHx: cholecystectomy Depression Anxiety Angina pectoris Hyperlipidemia Hypertension Dyspnea Coronary artery disease Surgical History History of cardiac cath Hx of spinal fusion Hx of cholecystectomy H/O right heart catheterization H/O hernia repair H/O elbow surgery H/O knee surgery Stented coronary artery Family History Mother Lupus Other Family history of diabetes mellitus type II Family history of hyperlipidemia Family history of hypertension Family history of myocardial infarction Social History Smoking Status: Never smoker alcohol intake: never current occupational status: unemployed and disabled Travel in the last 8 weeks?: None Have you lived/traveled outside US in past 30 days?: No Contact w/someone who lives/traveled outside US past 30 days?: No Exposure to someone with infectious disease in past 14 days?: No Do you have a fever (greater than 100.4 F or 38 C)?: No Have you tested positive for COVID-19?: No Exposed to someone with COVID-19 in past 14 days?: No Do you have a sore throat?: No Do you have a cough?: No Do you have any weakness?: No Do you have any diarrhea?: No Are you experiencing any unusual bleeding?: No Do you have any muscle aches/pain?: No Do you have any abdominal pain?: No Are you experiencing loss of taste or smell?: No Other Medical History Have you received the Flu Vaccine for this season: No Have you received the Pneumonia Vaccine: No ROS Obtained: Yes Systems reviewed as appropriate & no additional complaints except as documented Physical Exam General General appearance: alert Head Head exam: other (right posterior head tenderness ) Neck Neck exam: Present full ROM and tenderness (posterior neck pain ) Chest Chest inspection: Present normal inspection Respiratory Respiratory exam: Present normal lung sounds bilaterally Cardiovascular Cardiovascular exam: Present regular rate Abdominal Exam Abdominal exam: Present soft; Absent tenderness Extremities Exam Extremities exam: Present other (left elbow lateral tenderness, left hand lateral tenderness, left knee anterior inferior patella pain. Patella is midline) Back Exam Back exam: Present full ROM and other (no step off, no deformities ); Absent tenderness Neurological Exam Neurological exam: Present alert and oriented X3 Skin Skin exam: Present warm and dry Medical Decision Making Medical Records Screening: Per USPSTF and CDC recommendations, given the prevalence of disease in our region, it is our hospital?s policy to screen for HIV and viral Hepatitis for all patients aged 18 and over and those with ongoing risk factors. Perico Inquiry Pt receiving controlled substance: No Vital Signs: 07/11/25 15:23 07/11/25 15:39 07/11/25 16:00 Temperature 97.7 F Temperature Source Oral Pulse Rate 77 Pulse Rate [Right Radial] 86 Respiratory Rate 18 Blood Pressure 117/73 Blood Pressure [Right Arm] 108/80 L Blood Pressure Mean [Right Arm] 89 Blood Pressure Source [Right Arm] Automatic Cuff Blood Pressure Position [Right Arm] Sitting 02 Sat by Pulse Oximetry 99 99 97 Oxygen Delivery Method Room Air Room Air Room Air 07/11/25 16:30 07/11/25 17:05 Temperature 98.0 F Temperature Source Pulse Rate 76 75 Pulse Rate [Right Radial] Respiratory Rate 19 Blood Pressure 134/74 134/74 Blood Pressure [Right Arm] Blood Pressure Mean [Right Arm] Blood Pressure Source [Right Arm] Blood Pressure Position [Right Arm] 02 Sat by Pulse Oximetry 96 Oxygen Delivery Method Room Air Lab Data Lab Results 07/11/25 15:09: WBC 8.3, RBC 5.13, Hgb 14.5, Hct 44.7, MCV 87.1, MCH 28.3, MCHC 32.4, RDW 13.8, Plt Count 241, MPV 10.2, Neut % (Auto) 75.5, Lymph % (Auto) 13.4, [facility] [facility] % (Auto) 8.6, Eos % (Auto) 1.3, Baso % (Auto) 0.8, Neut # (Auto) 6.3, Lymph # (Auto) 1.1, [facility] [facility] # (Auto) 0.7, Eos # (Auto) 0.1, Baso # (Auto) 0.1, D- Dimer 0.97 H, Sodium 134 L, Potassium 5.6 H, Chloride 100, Carbon Dioxide 26, Anion Gap 13.6, BUN 23 H, Creatinine 1.30 H, Estimated Creat Clear 102, E stimated GFR 58 L, Est GFR ( Amer) 70, Glucose 304 H, Calcium 9.4, Total Bilirubin 0.8, AST 37, ALT 26, Alkaline Phosphatase 178 H, Troponin I < 0.01, Total Protein 7.6, Albumin 4.6, Globulin 3.0, Albumin/Globulin Ratio 1.5 07/11/25 15:09 07/11/25 15:09 Orders (Tests/Meds): ORDERS Category Date Time Status CT cervical spine wo con Stat Cat Scan 07/11/25 15:[address] head/brain wo con Stat Cat Scan 07/11/25 15:11 Completed CXR --portable [XR chest portable] Stat Exams 07/11/25 15:11 Completed Elbow XR left 2 views [XR elbow LT 2V] Stat Exams 07/11/25 15:11 Completed Hand XR left 2 views [XR hand LT 2V] Stat Exams 07/11/25 15:11 Completed Knee XR left 3 views [XR knee LT 3V] Stat Exams 07/11/25 15:11 Completed CBC w/Auto Diff [Complete Blood Count Auto Diff] Stat Lab 07/11/25 15:09 Completed CMP [Comprehensive Metabolic Panel] Stat Lab 07/11/25 15:09 Completed D-Dimer Stat Lab 07/11/25 15:09 Completed Trop I [Troponin I] Stat Lab 07/11/25 15:09 Completed Medical Decision Narrative: In summary, patient is a 54 year old male PMHx CKD, cardiac arrythmia, DMT2, diabtetic neuropathy, obese, who presents to the ED after a near-syncope episode that occured last night. Pt states he was standing in the restroom when he suddenly felt dizzy and fell back, hitting his head and neck on the bathtub. He states his L knee went under him, causing pain. He hit his left elbow on something and injured his left hand. He states that he has syncopal episodes frequently, has been worked up by cardiology and neurolgy without any diagnosis as to why. He states that he wears an insulin pump and checks his blood glucose regularly. He denies any issue with this. Denies fever, chills, headache, visual disturbances, chest pain, abdominal pain, nausea, vomiting, dysuria. Upon initial evaluation patient is alert, oriented and cooperative. His neuroexam is normal. He has posterior C-spine tenderness, mild tenderness of the lateral elbow on the left side, mild tenderness of his left lateral hand, mild tenderness at the medial and lateral aspect of his left knee, no obvious edema. Differential diagnoses include ICH, C-spine fracture, fracture, sprain, among others. CBC unremarkable for any leukocytosis, stable H&H. CMP remarkable for potassium of 5.6, BUN 23, creatinine 1.30, appears to be close to baseline, glucose 304. Troponin < 0.01. D-dimer 0.97. Discussed with patient that his workup is overall unremarkable, advised him we will place a DIALLO wrap around his left knee for support. Advised him to with Diallo wrap x 1 week and if his knee pain is not improving he will need to follow-up with orthopedics. Advised him although we do not know what caused his syncopal episode today in the ED, he will need evaluated further by PCP within 24 to 48 hours. We discussed return precautions to the ED and patient verbalized understanding. He was hemodynamically stable and ambulatory upon leaving the ED. I did mention that he will need to monitor his glucose closely as it is too high. Critical Care Critical Care Time Critical Care Time: No
[2025-07-11 15:19] LABS: Hematocrit 44.7 % (42.0-52.0); Hemoglobin 14.5 g/dL (14.1-18.0); Immature Granulocytes % 0.4 %; Mean Corpuscular HGB Conc 32.4 g/dL (31.8-35.4); Mean Corpuscular Hemoglobin 28.3 pg (27.0-31.2); Mean Corpuscular Volume 87.1 fl (80-94); Nucleated Red Blood Cells % 0 %; Platelet Count 241 K/mm3 (142-424); Red Blood Count 5.13 M/mm3 (4.60-6.20); Red Cell Distribution Width-SD 44.3 fL; White Blood Count 8.3 K/mm3 (4.8-10.8)
[2025-07-11 15:23] VITALS: BP 108/80; PULSE 86; RESP 18; TEMP 36.5; O2SAT 99; BMI 31.4
[2025-07-11 15:31] LABS: Alanine Aminotransferase 26 U/L (12-78); Albumin Level 4.6 g/dl (3.5-5.0); Albumin/Globulin Ratio 1.5 (1.1-1.8); Alkaline Phosphatase 178 U/L (38-126); Anion Gap 13.6 mEq/L (5-15); Aspartate Amino Transferase 37 U/L (17-59); Bilirubin,Total 0.8 mg/dl (0.2-1.3); Blood Urea Nitrogen 23 mg/dl (9-20); Calcium 9.4 mg/dl (8.4-10.2); Carbon Dioxide 26 mmol/L (22.0-30.0); Chloride 100 mmol/L (98-107); Creatinine Clearance Estimated 102 mL/min (50-200); Creatinine,Serum 1.30 mg/dl (0.66-1.25); Estimated Glomerular Filt Rate 58 ml/min (>60); GFR (African American) 70 ML/MIN (>60); Globulin 3.0 g/dL (1.3-3.2); Glucose 304 mg/dl (74-100); Potassium 5.6 mmoL/L (3.5-5.1); Sodium 134 mmol/L (136-145); Total Protein,Serum 7.6 g/dl (6.3-8.2)
[2025-07-11 15:35] LABS: D-Dimer 0.97 ug/mL (0.0-0.5)
[2025-07-11 15:39] VITALS: O2SAT 99
[2025-07-11 15:46] LABS: Troponin I < 0.01 ng/ml (0.00-0.034)
--- NOTE | 2025-07-11 15:48 | PC.WOUNDNOTE ---
Huang Delgado HAND STONECUTTER notified of patients K level of 5.6
[2025-07-11 16:00] VITALS: BP 117/73; PULSE 77; O2SAT 97
[2025-07-11 16:30] VITALS: BP 134/74; PULSE 76; O2SAT 96
[2025-07-11 17:05] VITALS: BP 134/74; PULSE 75; RESP 19; TEMP 36.7
== END 2025-07-11 17:06 | disposition home or self-care (01) ==
PROVIDERS: Nurse Practitioner; Emergency Provider Student in an Organized Health Care Education/Training Program; PCP Family Medicine
DX: R55 Syncope and collapse (principal); M25.562 Pain in left knee; E87.5 Hyperkalemia; W19.XXXA Unspecified fall, initial encounter
CPT/HCPCS: 70450; 71045; 72125; 73070; 73120; 73562; 80053; 84484; 85025; 85378; 93005; 99285

== ENCOUNTER 2025-08-04 13:59 | Outpatient (CLI) | payer MEDICAID, SELFPAY ==
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
--- OUTSIDE RECORDS SUMMARY | 2025-06-17 10:52 | XMS_ITS | Encounter Summary ---
Author Organization Healthcare Address [address] [id number] Care Team Providers Care Compliance Monitor Name Role Phone Quyen Vincent DO Primary Care Provider [phone] Encounter Details Date Type Department Care Team (Latest Contact Info) Description 06/17/2025 10:52 AM EDT - 06/17/2025 11:59 PM EDT [facility] En[facility] [address], [address] [place] [phone] Low back pain, unspecified back pain laterality, unspecified chronicity, unspecified whether sciatica present Discharge Disposition: Home or Self Care Social History Tobacco Use Types Packs/Day Years Used Date Smoking Tobacco: Former Cigarettes 1 10 0 11/27/1990 - 11/27/2000 Smokeless Tobacco: Former Snuff Quit: 11/27/2000 Alcohol Use Standard Drinks/Week Comments Not Currently [...] on file documented as of this encounter Functional Status * AUDIT-C Score Answer Date of Assessment Author 0 06/17/2025 9:29 AM Imelda Mathis R * Question Answer Date of Assessment Author Q1: How often do you have a drink containing alcohol? Never 06/17/2025 9:29 AM Michael Mathis Q2: How many drinks containing alcohol do you have on a typical day when you are drinking? Patient does not drink 06/17/2025 9:29 AM Imelda Mathis Q3: How often do you have six or more drinks on one occasion? Never 06/17/2025 9:29 AM Michael Mathis * Over the past 2 weeks, how [...] at all 06/17/2025 9:30 AM Imelda Lopez documented as of this encounter Medications at Time of Discharge aspirin 81 MG EC tablet Take 1 tablet by mouth daily. atorvastatin (Lipitor) 80 MG tablet Take 1 tablet by mouth 1 time each day. 11/27/2019 Brilinta 90 MG tablet Take 1 tablet by mouth 2 times a day. 11/27/2019 buPROPion (Wellbutrin) 75 MG tablet 12/09/2024 colestipol (Colestid) 1 g tablet as needed. 08/15/2024 Continuous Glucose Sensor (Dexcom G7 Sensor) misc CHANGE EVERY 10 DAYS, APPOINTMENT NEEDED FOR REFILLS 05/23/2025 Continuous Glucose Transmitter (Dexcom G6 transmitter) misc USE 1 EACH EVERY 3 (THREE) MONTHS 08/11/2024 ergocalciferol (Vitamin D-2) 1.25 MG (20949 UT) capsule 02/25/2025 folic acid (Folvite) 1 MG tablet Take 1 tablet by mouth daily. 02/25/2025 gabapentin (Neurontin) 300 MG capsule Take 1 capsule by mouth 3 times a day. Insulin Lispro (Admelog, HumaLOG) 100 UNIT/ML injection vial USE UP TO 125 UNITS VIA INSULIN PUMP DAILY 12/10/2024 nitroglycerin (Nitrostat) 0.4 MG SL tablet 05/16/2025 pantoprazole (Protonix) 40 MG EC tablet 11/05/2024 ranolazine (Ranexa) 1000 MG 12 hr tablet Take 1 tablet by mouth 2 times a day. 03/03/2025 sertraline (Zoloft) 100 MG tablet Take 2 tablets by mouth daily. documented as of this encounter Plan of Treatment Upcoming Encounters Date Type Department Care Team (Late st Contact Info) Description 09/03/2025 11:30 AM EDT Office Visit [facility] [address] [facility], [address] [place] [phone] Ronal Clemens MD [address] [place] [address] 09/23/2025 11:00 AM EDT Office Visit [facility] Medicine Specialties [address] [place] [address] Kerline Holcomb APRN [address] [place] [address] 10/14/2025 4:00 PM EST Office Visit [facility] [address] [place] [address] Martha Rodrigues MBBS [address] [place], [place] [id number] documented as of this encounter Procedures Procedure Name Priority Date/Time Associated Diagnosis Comments XR SACROILIAC JOINTS 3+ VIEWS Routine 06/17/2025 11:05 AM EDT Low back pain, unspecified back pain laterality, unspecified chronicity, unspecified whether sciatica present documented in this encounter Results * XR Sacroiliac Joints [...] MD on 06/17/2025 11:49 AM November Aicha [facility] IMG XR PROCEDURES Final Res ult documented in this encounter Visit Diagnoses Diagnosis Low back pain, unspecified back pain laterality, [...] documented as of this encounter Care Teams Compliance Monitor Relationship Specialty Start Date End Date Quyen Vincent DO [address] [place], [place] [address] [place] [address] PCP - General 04/09/21 documented as of this encounter
--- OUTSIDE RECORDS SUMMARY | 2025-06-30 08:30 | XMS_ITS | Encounter Summary ---
Author Organization [facility] Address [address] [place] [address] Care Team Providers Care Mobile Sales Technician Name Role Phone Quyen Vincent DO Primary Care Provider [phone] Reason for Visit * Reason Comments Diabetes Type II Diabetes Encounter Details Date Type Department Care Team (Late st Contact Info) Description 06/30/2025 8:30 AM EDT Office Visit [facility] [address] [address] Jennifer Villanueva PA [address] [phone] Type 2 diabetes mellitus with hyperglycemia, with long-term current use of insulin (Primary Dx); Abnormal thyroid function test Social History Tobacco Use Types Packs/Day Years Used Date Smoking Tobacco: Former Cigarettes 1.5 10.2 0 05/27/1991 - 07/28/2001 Smokeless Tobacco: Former Snuff Alcohol Use Standard Drinks/Week Comments No 0 (1 standard drink = 0.6 oz pur e alcohol) AUDIT-C Answer Date Recorded Q1: How often do you have a drink containing alc ohol? Monthly or less 11/29/2022 Q2: How many drinks containi ng alcohol do you have on a typical day when you are drinking? 1 or 2 11/29/2022 Q3: How often do you have si x or more drinks on one occasion? Monthly 11/29/2022 [facility] [place] of Occupat ional Health - Occupational Stress Questionnaire Answer Date Recorded Feeling of Stress Rather much 01/14/2019 Exercise Vital Sign Answer Date Recorde d Days of Exercise per Week 0 days 2018 Minutes of Exercise per Session 0 min 01/14/2019 Abuse Screen Answer Date Recorded Feels Unsafe at Home or Work/School no 02/01/2024 Feels Threatened by Someone no 05/2024 Does Anyone Try to Keep You From Having Contact with Others or Doing Things Outside Your Home? no 02/01/2024 Physical Signs of Abuse Present no 02/01/2024 Housing Stability Answer Date Recorded Current Living Arrangements home 01/2023 Potentially Unsafe Housing Conditions Not on beatriz e 11/29/2022 Disabilities Answer Date Recorded Difficulty Concentrating, Remembering or Making Decisions no 11/29/2022 Difficulty Managing Errands Independently no 11/29/2022 Sex and Gender Information Value Date Recorded Sex Assigned at Male 03/11/2025 5:22 PM EDT Legal Sex Male 1:39 PM EDT Gender Identity Not on file Sexual Orientation Not on file documented as of this encounter Last Filed Vital Signs Vital Sign Reading Time Taken Comments Blood Pressure 112/74 06/30/2025 8:27 AM EDT Pulse 86 06/30/2025 8:27 AM EDT Temperature - - Respiratory Rate - - Oxygen Saturation 96% 06/30/2025 8:27 AM EDT Inhaled Oxygen Concentration - - Weight 106 kg (233 lb 3.2 oz) 06/30/2025 8:27 AM EDT Height 188 cm (6' 2.02 ) 06/30/2025 8:27 AM EDT Body Mass Index 29.93 06/30/2025 8:27 AM EDT documented in this encounter Progress Notes * Jennifer Villanueva PA - 06/30/2025 9:35 AM EDTAssociated Problem(s): Type 2 diabetes mellitus Diabetes is improving with treatment. Continue current treatment regimen. Recommended an ADA diet. Regular aerobic exercise. Discussed foot care. Patient has done well over the last 3 months and A1c is down to 6.9. Was unable to review pump datatoday due to needing an upgrade. Patient will do this upgrade when able at home. Will continue current settings for now, but he can reach out if having any trouble before next appointment. Eye exam up-to-date, foot exam done today, fasting labs up-to-date, urine microalbumin creatinine ratio done today. Diabetes will be reassessed in 3 months * Jennifer Villanueva PA - 06/30/2025 8:30 AM EDT Images from the original note were not included. Office Note Date: 06/30/2025 Patient Name: Jonathan Delgado : 1970 Chief Complaint Patient presents with Diabetes Type II Diabetes History of Present Illness: Jonathan Delgado is a 54 y.o. male who presents for Diabetes type 2. Diagnosed: 1999 Current RX: Novolog - vial Tandem pump Bg checks are done: Continuously with Dexcom Hypoglycemia : Rare- usually related to not eating as much or bolusing too early Past medications: onglyza, ozempic (pancreatitis), metformin and jardiance stopped due to worseningkidney function Patient is still on prison disability for his back. He has continued to do well with the pump and doing well with entering food boluses. Changes to pump at last visit have worked well. Saw Inside Sales Assistant in May and had a slightly high TSH. Saw Nephrology recently and his kidney function was back to his previous range since stopping metformin and Jardiance. He will continue to follow with them. Last A1c: Hemoglobin A1C Date Value Ref Range Status 06/30/2025 6.9 (A) 4.5 - 5.7 % Final 02/09/2022 8.50 (H) 4.80 - 5.60 % Final Unable to download pump data due to patient needing to upgrade his pump. Changes in health since last visit: None. DM Health Maintenance: Ophtho: 04/2025 Monofilament / Foot exam: 06/30/25 Lipids/Statin: taking a statin with last FLP showing LDL 76 on 12/10/2024 ROBERT: 06/30/25 TSH: 06/30/25 Aspirin: taking MARYLU/ARB: no Diabetic Complications: Eyes: Yes; mild retinopathy per patient Kidneys: Yes, describe: CKD- scheduled to see Nephrology Feet: Yes, describe: Neuropathy Heart: Yes, describe: Cardiovascular disease with history of 2 stents Subjective Review of Systems: Review of Systems Constitutional: Negative for activity change, appetite change and fatigue. Respiratory: Negative for chest tightness and shortness of breath. Gastrointestinal: Negative for abdominal pain. Musculoskeletal: Negative for myalgias. Neurological: Negative for numbness. Psychiatric/Behavioral: The patient is not nervous/anxious. The following portions of the patient's history were reviewed and updated as appropriate: allergies, current medications, past family history, past medical history, past social history, past surgicalhistory, and problem list. Objective Visit Vitals BP 112/74 (BP Location: Left arm, Patient Position: Sitting) Pulse 86 Ht 188 cm (74.02 ) Wt 106 kg (233 lb 3.2 oz) SpO2 96% BMI 29.93 kg/m?? Physical Exam: Physical Exam Constitutional: Appearance: He is well-developed. HENT: Head: Normocephalic and atraumatic. Right Ear: External ear normal. Left Ear: External ear normal. Eyes: Conjunctiva/sclera: Conjunctivae normal. Cardiovascular: Rate and Rhythm: Normal rate and regular rhythm. Pulses: Dorsalis pedis pulses are 1+ on the right side and 1+ on the left side. Posterior tibial pulses are 1+ on the right side and 1+ on the left side. Pulmonary: Effort: Pulmonary effort is normal. Breath sounds: Normal breath sounds. Musculoskeletal: General: Normal range of motion. Cervical back: Normal range of motion. Feet: Right foot: Protective Sensation: 10 sites tested. 3 sites sensed. Skin integrity: Dry skin present. Toenail Condition: Right toenails are abnormally thick. Left foot: Protective Sensation: 10 sites tested. 3 sites sensed. Skin integrity: Dry skin present. Toenail Condition: Left toenails are abnormally thick. Comments: Diabetic Foot Exam Performed and Monofilament Test Performed Minimal nail on bilateral great toes Skin: General: Skin is warm and dry. Psychiatric: Behavior: Behavior normal. Assessment / Plan Assessment & Plan: Diagnoses and all orders for this visit: 1. Type 2 diabetes mellitus with hyperglycemia, with long-term current use of insulin (Primary) Assessment & Plan: Diabetes is improving with treatment. Continue current treatment regimen. Recommended an ADA diet. Regular aerobic exercise. Discussed foot care. Patient has done well over the last 3 months and A1c is down to 6.9. Was unable to review pump datatoday due to needing an upgrade. Patient will do this upgrade when able at home. Will continue current settings for now, but he can reach out if having any trouble before next appointment. Eye exam up-to-date, foot exam done today, fasting labs up-to-date, urine microalbumin creatinine ratio done today. Diabetes will be reassessed in 3 months Orders: - POC Glucose, Blood - POC Glycosylated Hemoglobin (Hb A1C) - Microalbumin / Creatinine Urine Ratio - Urine, Clean Catch; Future - TSH; Future - T4, Free; Future - Comprehensive Metabolic Panel; Future - Insulin Lispro (HumaLOG) 100 UNIT/ML injection; Use up to 125 units via insulin pump daily. Dispense: 120 mL; Refill: 1 - Microalbumin / Creatinine Urine Ratio - Urine, Clean Catch - TSH - T4, Free - Comprehensive Metabolic Panel 2. Abnormal thyroid function test Comments: Reach check TSH and free T4 today, due to mildly elevated TSH on recent labs. Will make further recommendations based on results. Orders: - TSH; Future - T4, Free; Future Other orders - atorvastatin (LIPITOR) 80 MG tablet; Take 1 tablet by mouth every night at bedtime. Dispense: 90 tablet; Refill: 3 Return in about 3 months (around 09/30/2025) for Follow up. Portions of this note were completed with voice recognition program. Electronically signed by Jennifer Villanueva PA-C [facility] Endocrinology [place] 06/30/2025 documented in this encounter Plan of Treatment Upcoming Encounters Date Type Department Care Team (Late st Contact Info) Description 11/03/2025 1:00 PM EST Office Visit [facility] [address] [phone] Jennifer Villanueva PA [address] [address] Scheduled Procedures Name Priority Associated Diagnoses Date/Ti me LEFT HEART CATH w/cors Unstable angina documented as of this encounter Procedures Procedure Name Priority Date/Time Associated Diagnosis Comments TSH Routine 06/30/2025 9:32 AM EDT Type 2 diabetes mellitus with hyperglycemia, with long-term current use of insulin T4, FREE Routine 06/30/2025 9:32 AM EDT Type 2 diabetes mellitus with hyperglycemia, with long-term current use of insulin COMPREHENSIVE METABOLIC PANEL Routine 06/30/2025 9:32 AM EDT Type 2 diabetes mellitus with hyperglycemia, with long-term current use of insulin POCT GLYCOSYLATED HEMOGLOBIN (HGB A1C) Routine 06/30/2025 8:47 AM EDT Type 2 diabetes mellitus with hyperglycemia, with long-term current use of insulin POCT GLUCOSE, BLD (NON STRIP) Routine 06/30/2025 8:44 AM EDT Type 2 diabetes mellitus with hyperglycemia, with long-term current use of insulin documented in this encounter Results * (ABNORMAL) Comprehensive Metabolic Panel (06/30/2025 9:32 AM EDT) Glucose 93 65 - 99 mg/dL 06/30/2025 2:51 PM EDT [facility] BUN 26.0(H) 6.0 - 20.0 mg/dL 06/30/2025 2:51 PM EDT [facility] Creatinine 1.86(H) 0.76 - 1.27 mg/dL 06/30/2025 2:51 PM EDT [facility] Sodium 142 136 - 145 mmol/L 06/30/2025 2:51 PM EDT [facility] Potassium 4.1 3.5 - 5.2 mmol/L 06/30/2025 2:51 PM EDT [facility] Chloride 99 98 - 107 mmol/L 06/30/2025 2:51 PM EDT [facility] CO2 27.1 22.0 - 29.0 mmol/L 06/30/2025 2:51 PM EDT [facility] Calcium 9.8 8.6 - 10.5 mg/dL 06/30/2025 2:51 PM [facility] Total Protein 8.0 6.0 - 8.5 g/dL 06/30/2025 2:51 PM T [facility] Albumin 4.6 3.5 - 5.2 g/dL 06/30/2025 2:51 PM [facility] ALT (SGPT) 21 1 - 41 U/L 06/30/2025 2:51 PM T [facility] AST (SGOT) 25 1 - 40 U/L 06/30/2025 2:51 PM [facility] Alkaline Phosphatase 156(H) 39 - 117 U/L 06/30/2025 2:51 PM [facility] Total Bilirubin 0.7 0.0 - 1.2 mg/dL 06/30/2025 2:51 PM [facility] Globulin 3.4 gm/dL 06/30/2025 2:51 PM [facility] A/G Ratio 1.4 g/dL 06/30/2025 2:51 PM [facility] BUN/Creatinine Ratio 14.0 7.0 - 25.0 06/30/2025 2:51 PM [facility] Anion Gap 15.9(H) 5.0 - 15.0 mmol/L 06/30/2025 2:51 PM [facility] eGFR 42.5(L) >60.0 mL/min/1.7 3 06/30/2025 2:51 PM [facility] Blood Structure of left upper limb / Unknown Venipuncture / Unknown 06/30/2025 9:32 AM EDT 06/30/2025 9:32 AM T [facility] - 06/30/2025 2:51 PM EDT GFR Categories in Chronic Kidney Disease (CKD) GFR Category GFR (mL/min/1.73) Interpretation G1 90 or greater Normal or high (1) G2 60-89 Mild decrease (1) G3a 45-59 Mild to moderate decrease G3b 30-44 Moderate to severe decrease G4 15-29 Severe decrease G5 14 or less Kidney failure (1)In the absence of evidence of kidney disease, neither GFR category G1 or G2 fulfill the criteria for CKD. eGFR calculation 2020 CKD-EPI creatinine equation, which does not include race as a factor Jennifer MANCINI LAB BLOOD ORDERABLES Final Resu lt Performing Organization Address City/[facility]/ZIP Co de Phone Number [facility]
[address] [place] [address], [place] [phone] * T4, Free (06/30/2025 9:32 AM EDT) Free T4 1.60 0.92 - 1.68 ng/dL 06/30/2025 2:51 PM EDT [facility] Blood Structure of left upper limb / Unknown Venipuncture / Unknown 06/30/2025 9:32 AM EDT 06/30/2025 9:32 AM EDT Jennifer MANCINI LAB BLOOD ORDERABLES Final Resu lt Performing Organization Address [facility] Co de Phone Number [facility]
[address] [place] [address], [place] [phone] * (ABNORMAL) TSH (06/30/2025 9:32 AM EDT) TSH 5.060(H) 0.270 - 4.200 uIU/mL 06/30/2025 2:51 PM EDT [facility] Blood Structure of left upper limb / Unknown Venipuncture / Unknown 06/30/2025 9:32 AM EDT 06/30/2025 9:32 AM EDT Jennifer MANCINI LAB BLOOD ORDERABLES Final Resu lt Performing Organization Address City/[facility]/ZIP Co de Phone Number [facility]
[address] [place] [address], [place] [phone] * (ABNORMAL) POC Glycosylated Hemoglobin (Hb A1C) (06/30/2025 8:47 AM EDT) Hemoglobin A1C 6.9(A) 4.5 - 5.7 % [facility] Lot Number [id number] [facility] Expiration Date 03/05/2027 [facility] Blood 06/30/2025 8:47 AM EDT Jennifer MANCINI POINT OF CARE TEST ORDERABLES F inal Result [facility]
[address] [place] [address], * POC Glucose, Blood (06/30/2025 8:44 AM EDT) Glucose 121 70 - 130 mg/dL Lot Number [id number] Expiration Date 12/30/2025 Blood 06/30/2025 8:44 AM EDT Jennifer MANCINI POINT OF CARE TEST ORDERABLES F inal Result documented in this encounter Visit Diagnoses Diagnosis Type 2 diabetes mellitus with hyperglycemia, with long-term current use of insulin- Primary Abnormal thyroid function test Nonspecific abnormal results of thyroid function study documented in this encounter Care Teams Mobile Sales Technician Relationship Specialty Start Date End Date Quyen Vincent DO [facility] [place] [address] PCP - General Family Medicine 02/17/17 documented as of this encounter
--- OUTSIDE RECORDS SUMMARY | 2025-07-17 15:24 | XMS_ITS | Encounter Summary ---
Author Organization Healthcare Address [address] [place] [address] Care Team Providers Care Life Advisor Name Role Phone StuartQuyen gil Primary Care Provider [phone] Reason for Referral * Consultation (Routine) - Authorized Specialty Diagnoses / Procedures Referred By Cheri ho Referred To Contact Neurology Diagnoses Syncope, unspecified syncope type Palma Zuluaga MD [facility] [place] [place] [address] Phone: tel: fax: Referral ID Status Reason Start Date Expiration Date Visits Requested Visits Authorized [id number] Authorized Specialty Services Required 07/17/2025 01/16/2027 1 1 Scheduling Instructions syncope * Cardiac Stress Testing (Urgent) - Authorized Specialty Diagnoses / Procedures Referred By Cheri ho Referred To Contact Cardiology Diagnoses Syncope, unspecified syncope type Procedures Adult Holter Monitor > 48hrs - 7 days Palma Zuluaga MD [address] [place] [phone] Phone: tel: fax: Referral ID Status Reason Start Date Expiration Date V isits Requested Visits Authorized [id number] Authorized 07/17/2025 01/16/2027 1 4 Reason for Visit * Reason Comments Fall Encounter Details Date Type Department Care Team ([facility] st Contact Info) Description 07/17/2025 3:24 PM EDT - 07/17/2025 9:54 PM EDT Emergency [facility] Emergency Department [address] [place] [address] Palma Zuluaga MD [address] [place] [address] Syncope, unspecified syncope type (Primary Dx) Discharge Disposition: Home or Self Care Social [...] Sign Reading Time Taken Comments Blood Pressure 122/78 07/17/2025 9:49 PM EDT Pulse 76 07/17/2025 9:49 PM EDT Temperature 36.4 C (97.6 F) 07/17/2025 9:49 PM EDT Respiratory Rate 15 07/17/2025 9:49 PM EDT Oxygen Saturation 98% 07/17/2025 9:49 PM EDT Inhaled Oxygen Concentration - - Weight 108 kg (238 lb) 07/17/2025 3:32 PM EDT Height 188 cm (6' 2 ) 07/17/2025 3:32 PM EDT Body Mass Index 30.56 07/17/2025 3:32 PM EDT documented in this encounter Functional Status * Calculated C-SSRS Risk Score (Lifetime/Recent) Answer Date of Assessment Author No Risk Indicated 07/17/2025 7:14 PM EDT Tano Weiss * Question Answer Date of Assessment Author 1. Wish to be (Past 1 Month) No 025 7:14 PM EDT Mya Weiss 2. Non-Specific Active Suici jose Thoughts (Past 1 Month) No 07/17/2025 7:14 PM EDT Mya Weiss 6. Suicidal Behavior (Lifetime) No 7:14 PM EDT Mya Weiss documented as of this encounter Discharge Instructions * Discharge Instructions* Silvia Rivera MD - 07/17/2025 8:54 PM EDT You have been seen today in the ER after your fall. You have no injuries from the fall. We have given you follow up to see our neurologist. Additionally, we would like you to berry picker the Holter monitor as discussed that you can follow up with Cardiology. documented in this encounter Medications at Time of Discharge [...] MONTHS 08/11/2024 ergocalciferol (Vitamin D-2) 1.25 MG (81783 UT) capsule 02/25/2025 folic acid (Folvite) 1 [...] mouth daily. documented as of this encounter Miscellaneous Notes * ED Provider Notes - Silvia Rivera MD - 07/17/2025 3:24 PM EDT Images from the original note were not included. - HPI Chief Complaint Patient presents with Fall HPI Patient is a 54-year-old male with history of coronary artery disease on Brilinta presenting today for syncope and collapse. Patient states that he has been having these episodes for a year. They areusually precipitated by warm fuzzy feeling in his chest that is spread up into his head and then heis dizzy. He can sometimes stopped the episodes from happening if he holds onto a counter or other solid structure. He states that sometimes he will pass out for several minutes. He denies any chest pain or trouble breathing prior to the episodes. He states that during today's episode he was just standing at the window at work. He did not have any prodromal symptoms today. He did strike his head which is why he presented to the hospital. He had currently endorses neck soreness on the sides as well as a headache. Denies injuries anywhere else. He states he has been seeing a neurologist and communications equipment supervisor outside of the [place] system for his recurrent syncopal episodes, and is going to try to establish care with our Cardiology team here. He states he would also like to establish care with our Neurology team. Patient History Past Medical History[1] Surgical History[2] Family History[3] Social History[4] Allergies: Allergies[5] Physical Exam ED Triage Vitals Temp Heart Rate Resp BP 07/17/25 1532 07/17/25 1532 07/17/25 1532 07/17/25 1532 36.5 ??C (97.7 ??F) 78 16 138/82 SpO2 Temp Source Heart Rate Source Patient Position 07/17/25 1532 07/17/25 1532 07/17/25 1847 07/17/25 1532 98 % Oral Monitor Sitting BP Location FiO2 (%) 07/17/25 1532 -- Right arm Physical Exam Constitutional: General: He is not in acute distress. Appearance: He is not ill-appearing or toxic-appearing. HENT: Head: Normocephalic. Comments: Hematoma to L posterior occiput Mouth/Throat: Mouth: Mucous membranes are moist. Pharynx: Oropharynx is clear. Eyes: Conjunctiva/sclera: Conjunctivae normal. Pupils: Pupils are equal, round, and reactive to light. Cardiovascular: Rate and Rhythm: Normal rate and regular rhythm. Pulses: Normal pulses. Pulmonary: Effort: Pulmonary effort is normal. Abdominal: General: Abdomen is flat. There is no distension. Palpations: Abdomen is soft. Tenderness: There is no abdominal tenderness. Musculoskeletal: General: Normal range of motion. Cervical back: Normal range of motion and neck supple. Skin: General: Skin is warm and dry. Capillary Refill: Capillary refill takes less than 2 seconds. Neurological: General: No focal deficit present. Mental Status: He is alert. Psychiatric: Mood and Affect: Mood normal. [facility] Coma Scale Score: 15 ED Course & MDM - Assessment: 54 y.o. male presents to ED with complaint of syncope and collapse. It should be noted that the chronic conditions includes coronary artery disease on Brilinta, which currently is at goal therapy. This complicates the clinical picture because it Comorbidities: may be exacerbating symptoms, increases the amount and complexity of data to be reviewed, and complicates the clinical workup Differential Diagnosis: Intracranial hemorrhage, cervical spine injury, cardiogenic syncope, vasovagal syncope, drop seizures, among others. In order to fully explore the differential diagnosis the following treatments and tests were ordered: ED Medication Administration from 07/17/2025 1524 to 07/17/2025 2145 Date/Time Order Dose Route Action 07/17/2025 1834 EDT ondansetron (Zofran) injection 4 mg 4 mg Intravenous Given 07/17/2025 1931 EDT acetaminophen (Tylenol) tablet 1,000 mg 1,000 mg Oral Given 07/17/2025 1940 EDT acetaminophen (Tylenol) 500 MG tablet - Pyxis Override Pull -- Override Pull All Other Orders Ordered Status Ordering Provider 07/17/25 1755 POCT glucose meter PROCEDURE ONCE Final result POCT, GENERIC PROVIDER 07/17/25 1612 Troponin T, High Sensitivity, 2 Hour, Plasma PROCEDURE ONCE Final result PALMA ZULUAGA 07/17/25 1713 XR Shoulder Right 2+ Views Once Final result PALMA ZULUAGA 07/17/25 1713 XR Chest 1 View One time imaging Final result PALMA ZULUAGA 07/17/[address] Head wo IV Contrast Once Final result PALMA ZULUAGA 07/17/[address] Cervical Spine wo IV Contrast Once Final result PALMA ZULUAGA 07/17/25 1534 CBC w/diff STAT Final result PALMA ZULUAGA 07/17/25 1534 BMP STAT Final result PALMA ZULUAGA 07/17/25 1534 Troponin now and 120 min STAT Final result PALMA ZULUAGA 07/17/25 1534 EKG now - STAT (adult) Once Final result PALMA ZULUAGA 07/17/25 1534 Hepatitis C Antibody - ED Once Final result PALMA ZULUAGA 07/17/25 1534 ED Protocol - HIV 1/2 Antibody/Antigen Screen Once Final result PALMA ZULUAGA 07/17/25 1535 ED HIV 1/2 Antibody/Antigen Screen w/Reflex to HIV 1/2 Differentiation PROCEDURE ONCE Final result PALMA ZULUAGA 07/17/25 194 Adult Holter Monitor > 48hrs - 7 days Ordered SILVIA RIVERA 07/17/251940 Discharge Ambulatory referral to Neurology Ordered SILVIA RIVERA ED Course as of 07/17/252144 [facility] Jul 17, [id number] Vitals upon arrival with BP of 138/82, heart rate of 78, normal respiratory rate and O2 saturation on room air. Afebrile. [JG] 191 Zofran given for symptom control [JG] 1921 Creatinine(!): 2.34 Mildly elevated from baseline however patient's baseline does appear to be up trending over time [JG] 2143 Given that patient's imaging and traumatic workup for today was ultimately unremarkable, patient will be discharged with a Holter monitor for to further evaluate for cardiogenic syncope, patientwill also be discharged with a referral to establish care with Neurology. Patient at baseline prior to discharge and understanding of return precautions. [JG] ED Course User Index [JG] Silvia Rivera MD Clinical Impressions as of 07/17/252144 Syncope, unspecified syncope type Social Determinates of Health Risks (including Economic Stability, Education and level of understanding, Healthcare access and quality and concerning social factors): None identified on this visit Ultimately, this patient was Was discharged Home (Discharge) The encounter diagnosis was Syncope, unspecified syncope type. . Patient was counseled on the diagnoses. Discharge medications if any are listed below. Listed medications are thought be either curative for listed diagnoses or will help control ongoing symptoms. Patient is requested to follow up with Patient's Primary Care Provider, Cardiology, and Neurology in order to obtain routine follow-up and specialty care. Instructions on follow up as well as precautions to return to the ER provided verbally by the EM provider, as well as written in patients discharge education packet. ED Prescriptions None Discharge Instructions You have been seen today in the ER after your fall. You have no injuries from the fall. We have given you follow up to see our neurologist. Additionally, we would like you to berry picker the Holter monitor as discussed that you can follow up with Cardiology. Disposition Discharge Discharge Orders Adult Holter Monitor > 48hrs - 7 days Discharge Ambulatory referral to Neurology Authorized - [1] Past Medical History: Diagnosis Date Abdominal pain 12/04/2017 Abdominal pain Abnormal findings on diagnostic imaging of heart and coronary circulation 03/03/2025 Acquired absence of other specified parts of digestive tract 01/14/2025 Acute kidney failure, unspecified ([facility] 12/27/2024 Allergic rhinitis 02/09/2017 Allergic rhinitis Anesthesia of skin 02/10/2025 Ankylosing spondylitis of site in spine ([facility]) 03/2018 Anxiety 03/08/2017 Asthma 02/09/2017 Asthma Cellulitis 03/08/2017 Second toe, right Cerebrovascular accident ([facility]) 06/24/2015 Stroke Cervical spondylosis without myelopathy 06/01/2021 Chest pain 05/17/2022 Chronic constipation with overflow 07/19/2017 Overflow diarrhea Chronic kidney disease, unspecified 12/23/2024 Chronic neck and back pain 11/27/2014 Constipation 07/19/2017 Constipation Coronary artery disease due to type 2 diabetes mellitus ([facility]) 11/27/2009 Cough 02/09/2017 Cough Depression 03/08/2017 Diabetes 1.5, 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 [...] unspecified carotid artery 02/18/2025 Other chronic pancreatitis ([facility]) 01/14/2025 Pain in left foot 03/18/2025 Paresthesia [...] HISTORY N/A History of elbow surgery from [facility] OTHER SURGICAL HISTORY N/A History of cholecystectomy from [facility] OTHER SURGICAL HISTORY N/A History of knee surgery from [facility] 2024 [3] Family History Problem [...] 60 - 69 Diabetes Maternal Grandfather lewis boogiepot 40 - 49 Heart disease Maternal Grandfather lewis grider 50 - 59 Diabetes Paternal Grandmother johnathan delgado 50 - 59 [4] Tobacco Use Smoking status: Former Current packs/day: 0.00 Average packs/day: 1 pack/day for 10.0 years (10.0 ttl pk-yrs) Types: Cigarettes Start date: 11/27/1990 Quit date: 11/27/2000 Years since quittin.6 Smokeless tobacco: Former Types: Snuff Quit date: 11/27/2000 Vaping Use Vaping status: Never Used Substance Use Topics Alcohol use: Not Currently Drug use: Never [5] Allergies Allergen Reactions Penicillins Other - please document in the comment field and Unknown - Patient states they do not know rxn details Childhood reaction, unknown severity Penicillin Silvia Rivera MD Resident 07/17/252144 Cosigned by Palma Zuluaga MD at 07/19/2025 3:51 PM EDT Associated attestation - Palma Zuluaga MD - 07/19/2025 3:51 PM EDT I saw and evaluated the patient with the resident/fellow. I discussed the case with the resident/fellow and agree with the findings and plan as documented. * ED Triage Notes - Maribel Castelan RN - 07/17/2025 3:24 PM EDT Patient was at PT and pass out falling from standing striking back of head. Take timothy, +LOC. documented in this encounter Plan of Treatment Upcoming Encounters Date Type Department Care Team (Late st Contact Info) Description 09/03/2025 11:30 AM EDT Office Visit [facility] [address] [facility] [address] [facility], [address] [place] [id number] Ronal Clemens MD [address] [place] [address] 09/23/2025 11:00 AM EDT Office Visit [facility] [address] [place] [address] Kerline Holcomb APRN [address] [place] [address] 10/14/2025 4:00 PM EST Office Visit [facility] [address] [place] [address] Martha Rodrigues, JOESPH [address] [place], [place] [id number] Scheduled Orders Name Type Priority Associated Diagnoses Orde r Schedule Adult Holter Monitor > 48hrs - 7 days Cardiac Services STAT Syncope, unspecified syncope type Expected: 07/17/2025 (Approximate), Expires: 01/18/2027 Scheduled Referrals Name Type Priority Associated Diagnoses Orde r Schedule Discharge Ambulatory referral to Neurology Outpatient Referral Routine Syncope, unspecified syncope type Expected: 07/17/2025 (Approximate), Expires: 01/17/2027 documented as of this encounter Procedures Procedure Name Priority Date/Time Associated Diagnosis Comments POCT GLUCOSE METER UNSOLICITED RESULTS Routine 07/17/2025 5:55 PM EDT TROPONIN T, HIGH SENSITIVITY, 2 HOUR, PLASMA Timed 07/17/2025 5:52 PM EDT XR CHEST 1 VIEW STAT 07/17/2025 5:44 PM EDT XR SHOULDER RIGHT 2+ VIEWS STAT 07/17/2025 5:43 PM EDT ECG ADULT STAT 07/17/2025 4:[address] CERVICAL SPINE WO IV CONTRAST STAT 07/17/2025 3:[address] HEAD WO IV CONTRAST STAT 3:51 PM EDT ED HIV 1/2 ANTIBODY/ANTIGEN SCREEN WITH REFLEX TO HIV I/II DIFFERENTIATION STAT 07/17/2025 3:42 PM EDT ED PROTOCOL HIV 1/2 ANTIBODY/ANTIGEN SCREEN W/REFLEX TO HIV 1/2 ANTIBODY DIFFERENTIATION STAT 07/17/2025 3:42 PM EDT TROPONIN T, HIGH SENSITIVITY, 0 HOUR, PLASMA, REFLEX TO 2 HOUR STAT 07/17/2025 3:42 PM EDT HEPATITIS C ANTIBODY - ED W/REFLEX TO HCV QUANT PCR STAT 07/17/2025 3:42 PM EDT CBC WITH AUTO DIFFERENTIAL STAT 07/17/2025 3:42 PM EDT BASIC METABOLIC PANEL, PLASMA STAT 07/17/2025 3:42 PM EDT documented in this encounter Results * POCT glucose meter (07/17/2025 5:55 PM EDT) [facility] POCT Glucose 97 74 - 99 mg/dL 07/17/2025 5:57 PM EDT [facility] Comment:Accuracy of a glucos e result obtained from a capillary whole blood specimen relies upon adequate, non-compromised capillary blood flow. If the capillary glucose result is not consistent with the patient's clinical signs and symptoms, glucose testing should be repeated with either an arterial or venous sample on the glucometer or sent to the main labortory for testing. Comment 07/17/2025 5:57 PM EDT [facility]ALTH[facility]ARE LAB Site Director ID Maribel Castelan 025 5:57 PM EDT HEALTHCARE LAB Device ID [id number] 07/17/2025 5:57 PM EDT HEALTHCARE LAB Specimen Type POC Capillary 07/17/2025 5:57 PM EDT HEALTHCARE LAB Blood Capillary blood specimen / Unknown 07/17/2025 5:55 PM EDT 07/17/2025 5:57 PM EDT us Generic Provider Poct LAB POINT OF CARE TEST DOCKED DEVICE UNSOLICITED RESULTS Final Result Performing Organization Address [facility] Co de Phone Number [facility] [address] [place] [address] * (ABNORMAL) Troponin T, High Sensitivity, 2 Hour, Plasma (07/17/2025 5:52 PM EDT) [facility] Troponin T, High Sensitivity, 2 Hour 47(H) <19 ng/L 07/17/2025 6:25 PM EDT [facility] Troponin Delta 6 <10 ng/L 07/17/2025 6:25 PM EDT [facility] Troponin Delta Interpretation Not Significant 07/17/2025 6:25 PM EDT [facility] Comment:Not Significant. No acute change in troponin observed between the baseline and 2 hour samples. Blood Venous blood specimen / Unknown Venipuncture / Unknown 07/17/2025 5:52 PM EDT 07/17/2025 5:56 PM EDT us Palma Zuluaga MD LAB BLOOD ORDERABLES Final Re sult [facility] [address] [place] [address] * XR Chest 1 View (07/17/2025 5:44 PM EDT) Anatomical Region Laterality Modality Chest Digital Radiogra phy Impressions 07/17/2025 5:55 PM EDT No acute findings CRITICAL RESULT: No. COMMUNICATION: Per this written report. Drafted by Ralph Palmer MD on 07/17/2025 5:54 PM Final report signed by Ralph Palmer MD on 07/17/2025 5:55 PM Narrative 07/17/2025 5:55 PM EDT CLINICAL INDICATION: pain TECHNIQUE: XR CHEST 1 VIEW, XR SHOULDER RIGHT 2+ VIEWS COMPARISON: 10/09/2020 FINDINGS: Chest: Unremarkable cardiomediastinal contour. Scarring in the left lung base. No acute airspace opacity, large pleural effusion, thorax, and osseous finding. Right shoulder: No fracture, subluxation, or dislocation is identified. There is no evidence of degeneration or narrowing of the subacromial space. The glenohumeral joint is well approximated. No acromioclavicular joint pathology identified. No abnormalities in the visualized portions of the lungs. Procedure Note Ralph Palmer MD - 07/17/2025 CLINICAL INDICATION: pain TECHNIQUE: XR CHEST 1 VIEW, XR SHOULDER RIGHT 2+ VIEWS COMPARISON: 10/09/2020 FINDINGS: Chest: Unremarkable cardiomediastinal contour. Scarring in the left lungbase. No acute airspace opacity, large pleural effusion, thorax, andosseous finding. Right shoulder: No fracture, subluxation, or dislocation is identified.There is no evidence of degeneration or narrowing of the subacromialspace. The glenohumeral joint is well approximated. No acromioclavicularjoint pathology identified. No abnormalities in the visualized portions ofthe lungs. IMPRESSION: No acute findings CRITICAL RESULT: No. COMMUNICATION: Per this written report. Drafted by Ralph Palmer MD on 07/17/2025 5:54 PM Final report signed by Ralph Palmer MD on 07/17/2025 5:55 PM us Palma Zuluaga MD IMG XR PROCEDURES Final Resul t * XR Shoulder Right 2+ Views (07/17/2025 5:43 PM EDT) Anatomical Region Laterality Modality Upper Extremities, Shoulder Right Digi dandre Radiography Impressions 07/17/2025 5:55 PM EDT No acute findings CRITICAL RESULT: No. COMMUNICATION: Per this written report. Drafted by Ralph Palmer MD on 07/17/2025 5:54 PM Final report signed by Ralph Palmer MD on 07/17/2025 5:55 PM Narrative 07/17/2025 5:55 PM EDT CLINICAL INDICATION: pain TECHNIQUE: XR CHEST 1 VIEW, XR SHOULDER RIGHT 2+ VIEWS COMPARISON: 10/09/2020 FINDINGS: Chest: Unremarkable cardiomediastinal contour. Scarring in the left lung base. No acute airspace opacity, large pleural effusion, thorax, and osseous finding. Right shoulder: No fracture, subluxation, or dislocation is identified. There is no evidence of degeneration or narrowing of the subacromial space. The glenohumeral joint is well approximated. No acromioclavicular joint pathology identified. No abnormalities in the visualized portions of the lungs. Procedure Note Ralph Palmer MD - 07/17/2025 CLINICAL INDICATION: pain TECHNIQUE: XR CHEST 1 VIEW, XR SHOULDER RIGHT 2+ VIEWS COMPARISON: 10/09/2020 FINDINGS: Chest: Unremarkable cardiomediastinal contour. Scarring in the left lungbase. No acute airspace opacity, large pleural effusion, thorax, andosseous finding. Right shoulder: No fracture, subluxation, or dislocation is identified.There is no evidence of degeneration or narrowing of the subacromialspace. The glenohumeral joint is well approximated. No acromioclavicularjoint pathology identified. No abnormalities in the visualized portions ofthe lungs. IMPRESSION: No acute findings CRITICAL RESULT: No. COMMUNICATION: Per this written report. Drafted by Ralph Palmer MD on 07/17/2025 5:54 PM Final report signed by Ralph Palmer MD on 07/17/2025 5:55 PM us Palma Zuluaga MD IMG XR PROCEDURES Final Resul t * EKG now - STAT (adult) (07/17/2025 4:17 PM EDT) EKG DIAGNOSIS CLASS Normal MUSE ECG Ventricular Rate 74 BPM MUSE ECG Atrial Rate 74 BPM MUSE ECG ND Interval 190 ms MUSE ECG QRSD Interval 88 ms MUSE ECG QT Interval 410 ms MUSE ECG QTC Interval 455 ms MUSE ECG P [place] 54 degrees MUSE ECG R [place] -26 degrees MUSE ECG T Wave [place] 57 degrees MUSE ECG Diagnosis Normal sinus rhythm MUSE ECG Diagnosis Normal ECG MUSE ECG Diagnosis MUSE ECG Diagnosis Confirmed by Mark Orosco ([id number]) on 07/17/2025 4:44:10 PM MUSE ECG 07/17/2025 4:17 PM EDT 07/17/2025 4:44 PM EDT us Palma Zuluaga MD ECG ORDERABLES Final Result MUSE ECG * CT Cervical Spine wo IV Contrast (07/17/2025 3:51 PM EDT) Anatomical Region Laterality Modality Spine, C-spine Computed Tomogra phy Impressions 07/17/2025 4:28 PM EDT No acute intracranial hemorrhage or acute large territorial infarction. No acute fracture or subluxation of cervical spine. Small to moderate left posterior superior scalp contusion/hematoma. CRITICAL RESULT: No. COMMUNICATION: Per this written report. Drafted by Jay Yao MD on 07/17/2025 4:22 PM Final report signed by Jay Yao MD on 07/17/2025 4:28 PM Narrative 07/17/2025 4:28 PM EDT CLINICAL INDICATION: fall TECHNIQUE: Axial CT images of the head were obtained without contrast administration. CT cervical spine without intravenous contrast. Coronal and sagittal reformatted images obtained. Total DLP (Dose-Length Product): 1206.95 mGy.cm (accession [id number]), 1206.95 mGy.cm (accession [id number]). Please note: The reported value represents the total of one or more individual components during the CT acquisition on this date and at this time, and as such, the same value may appear in more than one CT report depending on the interpreting/reporting physicians. COMPARISON: CT cervical spine 10/09/2020. FINDINGS: Head: No acute intracranial hemorrhage or acute large territorial infarction. No focal mass, mass effect, or midline shift. Ventricles and cisternal spaces grossly within normal limits for patient age. No obstructive hydrocephalus. Soft Tissues: Small to moderate left posterior superior scalp contusion/hematoma. Skull: No acute displaced calvarial fracture. Sinuses and Mastoids: Minimal bilateral maxillary sinus mucosal thickening. 4 mm right maxillary sinus retention cyst. The mastoid air cells are clear. Cervical spine: No acute fracture or subluxation. Multilevel degenerative endplate change and facet arthropathy. [id number] multilevel spondylotic change. Included portions of the lung apices demonstrate scarring and atelectasis without acute focal consolidation. Procedure Note Jay Yao MD - 07/17/2025 CLINICAL INDICATION: fall TECHNIQUE: Axial CT images of the head were obtained without contrastadministration. CT cervical spine without intravenous contrast. Coronal and sagittalreformatted images obtained. Total DLP (Dose-Length Product): 1206.95 mGy.cm (accession [id number]),1206.95 mGy.cm (accession [id number]). Please note: The reported valuerepresents the total of one or more individual components during the CTacquisition on this date and at this time, and as such, the same value mayappear in more than one CT report depending on the interpreting/reportingphysicians. COMPARISON: CT cervical spine 10/09/2020. FINDINGS: Head: No acute intracranial hemorrhage or acute large territorial infarction. Nofocal mass, mass effect, or midline shift. Ventricles and cisternal spacesgrossly within normal limits for patient age. No obstructivehydrocephalus. Soft Tissues: Small to moderate left posterior superior scalpcontusion/hematoma. Skull: No acute displaced calvarial fracture. Sinuses and Mastoids: Minimal bilateral maxillary sinus mucosalthickening. 4 mm right maxillary sinus retention cyst. The mastoid aircells are clear. Cervical spine: No acute fracture or subluxation. Multilevel degenerative endplate changeand facet arthropathy. [id number] multilevel spondylotic change. Included portions of the lung apices demonstrate scarring and atelectasiswithout acute focal consolidation. IMPRESSION: No acute intracranial hemorrhage or acute large territorial infarction. No acute fracture or subluxation of cervical spine. Small to moderate left posterior superior scalp contusion/hematoma. CRITICAL RESULT: No. COMMUNICATION: Per this written report. Drafted by Jay Yao MD on 07/17/2025 4:22 PM Final report signed by Jay Yao MD on 07/17/2025 4:28 PM Palma Zuluaga MD IMG CT PROCEDURES Final Resul t * CT Head wo IV Contrast (07/17/2025 3:51 PM EDT) Anatomical Region Laterality Modality Head Computed Tomogra phy Impressions 07/17/2025 4:28 PM EDT No acute intracranial hemorrhage or acute large territorial infarction. No acute fracture or subluxation of cervical spine. Small to moderate left posterior superior scalp contusion/hematoma. CRITICAL RESULT: No. COMMUNICATION: Per this written report. Drafted by Jay Yao MD on 07/17/2025 4:22 PM Final report signed by Jay Yao MD on 07/17/2025 4:28 PM Narrative 07/17/2025 4:28 PM EDT CLINICAL INDICATION: fall TECHNIQUE: Axial CT images of the head were obtained without contrast administration. CT cervical spine without intravenous contrast. Coronal and sagittal reformatted images obtained. Total DLP (Dose-Length Product): 1206.95 mGy.cm (accession [id number]), 1206.95 mGy.cm (accession [id number]). Please note: The reported value represents the total of one or more individual components during the CT acquisition on this date and at this time, and as such, the same value may appear in more than one CT report depending on the interpreting/reporting physicians. COMPARISON: CT cervical spine 10/09/2020. FINDINGS: Head: No acute intracranial hemorrhage or acute large territorial infarction. No focal mass, mass effect, or midline shift. Ventricles and cisternal spaces grossly within normal limits for patient age. No obstructive hydrocephalus. Soft Tissues: Small to moderate left posterior superior scalp contusion/hematoma. Skull: No acute displaced calvarial fracture. Sinuses and Mastoids: Minimal bilateral maxillary sinus mucosal thickening. 4 mm right maxillary sinus retention cyst. The mastoid air cells are clear. Cervical spine: No acute fracture or subluxation. Multilevel degenerative endplate change and facet arthropathy. [id number]-ag-[id number] multilevel spondylotic change. Included portions of the lung apices demonstrate scarring and atelectasis without acute focal consolidation. Procedure Note Jay Yao MD - 07/17/2025 CLINICAL INDICATION: fall TECHNIQUE: Axial CT images of the head were obtained without contrastadministration. CT cervical spine without intravenous contrast. Coronal and sagittalreformatted images obtained. Total DLP (Dose-Length Product): 1206.95 mGy.cm (accession [id number]),1206.95 mGy.cm (accession [id number]). Please note: The reported valuerepresents the total of one or more individual components during the CTacquisition on this date and at this time, and as such, the same value mayappear in more than one CT report depending on the interpreting/reportingphysicians. COMPARISON: CT cervical spine 10/09/2020. FINDINGS: Head: No acute intracranial hemorrhage or acute large territorial infarction. Nofocal mass, mass effect, or midline shift. Ventricles and cisternal spacesgrossly within normal limits for patient age. No obstructivehydrocephalus. Soft Tissues: Small to moderate left posterior superior scalpcontusion/hematoma. Skull: No acute displaced calvarial fracture. Sinuses and Mastoids: Minimal bilateral maxillary sinus mucosalthickening. 4 mm right maxillary sinus retention cyst. The mastoid aircells are clear. Cervical spine: No acute fracture or subluxation. Multilevel degenerative endplate changeand facet arthropathy. Fjdi-[id number] multilevel spondylotic change. Included portions of the lung apices demonstrate scarring and atelectasiswithout acute focal consolidation. IMPRESSION: No acute intracranial hemorrhage or acute large territorial infarction. No acute fracture or subluxation of cervical spine. Small to moderate left posterior superior scalp contusion/hematoma. CRITICAL RESULT: No. COMMUNICATION: Per this written report. Drafted by Jay Yao MD on 07/17/2025 4:22 PM Final report signed by Jay Yao MD on 07/17/2025 4:28 PM us Palma Zuluaga MD IMG CT PROCEDURES Final Resul t * ED HIV 1/2 Antibody/Antigen Screen w/Reflex to HIV 1/2 Differentiation (07/17/2025 3:42 PM EDT) HIV 1 & 2 Antibody/Antigen Screen Non Reactive Non Reactive 07/17/2025 5:13 PM EDT [facility] Comment:Screening for HIV 1 & 2 antibodies, and P24 antigen is NONREACTIVE. No confirmatory testing is required. Blood Venous blood specimen / Unknown Venipuncture / Unknown 07/17/2025 3:42 PM EDT 07/17/2025 4:26 PM EDT Result Mauro Zuluaga MD LAB BLOOD ORDERABLES Final Re sult Performing Organization Address City/[facility]/ZIP Co de Phone Number [facility] [address] [place] [address] * Hepatitis C Antibody - ED (07/17/2025 3:42 PM EDT) [facility] Hepatitis C Antibody Negative Negative 07/17/2025 5:13 PM EDT [facility] Blood Venous blood specimen / Unknown Venipuncture / Unknown 07/17/2025 3:42 PM EDT 07/17/2025 4:26 PM EDT Result Mauro Zuluaga MD LAB BLOOD ORDERABLES Final Re sult Performing Organization Address [facility] Co de Phone Number [facility] [address] [place] [address] * (ABNORMAL) Troponin now and 120 min (07/17/2025 3:42 PM EDT) [facility] Troponin T, High Sensitivity, 0 Hour 53(H) <19 ng/L 07/17/2025 4:12 PM EDT [facility] Blood Venous blood specimen / Unknown Venipuncture / Unknown 07/17/2025 3:42 PM EDT 07/17/2025 3:46 PM EDT Result Mauro Zuluaga MD LAB BLOOD ORDERABLES Final Re sult Performing Organization Address City/[facility]/ZIP Co de Phone Number [facility] [address] [place] [address] * (ABNORMAL) BMP (07/17/2025 3:42 PM EDT) [facility] Glucose, Plasma 97 74 - 99 mg/dL 07/17/2025 4:12 PM EDT [facility] BUN, Plasma 41(H) 7 - 21 mg/dL 07/17/2025 4:12 PM EDT [facility] Creatinine, Plasma 2.34(H) 0.70 - 1.20 mg/dL 07/17/2025 4:12 PM EDT [facility] BUN/Creatinine Ratio 18 07/17/2025 4:12 PM EDT [facility] Sodium, Plasma 137 136 - 145 mmol/L 07/17/2025 4:12 PM EDT [facility] Potassium, Plasma 4.3 3.6 - 4.9 mmol/L 07/17/2025 4:12 PM EDT [facility] Chloride, Plasma 100 97 - 107 mmol/L 07/17/2025 4:12 PM EDT [facility] CO2, Plasma 24 22 - 29 mmol/L 07/17/2025 4:12 PM EDT [facility] Anion Gap 13 6 - 16 mmol/L 07/17/2025 4:12 PM EDT [facility] Total Calcium, Plasma 8.9 8.9 - 10.2 mg/dL 07/17/2025 4:12 PM EDT [facility] eGFRcr 32.2 mL/min/1.7 3m*2 07/17/2025 4:12 PM EDT [facility] Comment:Reported eGFRcr in m L/min/1.73m2 is based the CKD-EPI 2020 equation that does not use a race coefficient. Blood Venous blood specimen / Unknown Venipuncture / Unknown 07/17/2025 3:42 PM EDT 07/17/2025 3:46 PM EDT us Palma Zuluaga MD LAB BLOOD ORDERABLES Final Re sult [facility] [address] [place] [address] * (ABNORMAL) CBC w/diff (07/17/2025 3:42 PM EDT) WBC Count 6.35 3.70 - 10.30 10*3/uL LAB HEMATOLOGY METHOD 07/17/2025 3:49 PM EDT [facility] RBC Count 4.59(L) 4.60 - 6.10 10*6/uL LAB HEMATOLOGY METHOD 07/17/2025 3:49 PM EDT [facility] HGB 13.1(L) 13.7 - 17.5 g/dL LAB HEMATOLOGY METHOD 07/17/2025 3:49 PM EDT [facility] HCT 39.8(L) 40.0 - 51.0 % LAB HEMATOLOGY METHOD 07/17/2025 3:49 PM EDT [facility] Platelet Count 156 155 - 369 10*3/uL LAB HEMATOLOGY METHOD 07/17/2025 3:49 PM EDT [facility] MCV 87 79 - 98 fL LAB HEMATOLOGY METHOD 07/17/2025 3:49 PM EDT [facility] MCH 28.5 26.0 - 32.0 pg LAB HEMATOLOGY METHOD 07/17/2025 3:49 PM EDT [facility] MCHC 32.9 30.7 - 35.5 g/dL LAB HEMATOLOGY METHOD 07/17/2025 3:49 PM EDT [facility] RDW 13.5 11.5 - 14.5 % LAB HEMATOLOGY METHOD 07/17/2025 3:49 PM EDT [facility] MPV 9.7 8.8 - 12.5 fL LAB HEMATOLOGY METHOD 07/17/2025 3:49 PM EDT [facility] nRBC 0.0 <=0.0 per 100 WBCs LAB HEMATOLOGY METHOD 07/17/2025 3:49 PM EDT [facility] Differential Type Automated LAB HEMATOLOGY METHOD 07/17/2025 3:49 PM EDT [facility] Neutrophils % 69 % LAB HEMATOLOGY METHOD 07/17/2025 3:49 PM EDT [facility] Lymphocytes % 17 % LAB HEMATOLOGY METHOD 07/17/2025 3:49 PM EDT [facility] Monocytes % 11 % LAB HEMATOLOGY METHOD 07/17/2025 3:49 PM EDT [facility] Eosinophils % 2 % LAB HEMATOLOGY METHOD 07/17/2025 3:49 PM EDT [facility] Basophils % 1 % LAB HEMATOLOGY METHOD 07/17/2025 3:49 PM EDT [facility] Immature Granulocytes % 0 % LAB HEMATOLOGY METHOD 07/17/2025 3:49 PM EDT [facility] Neutrophils Absolute 4.40 1.60 - 6.10 10*3/uL LAB HEMATOLOGY METHOD 07/17/2025 3:49 PM EDT [facility] Lymphocytes Absolute 1.06(L) 1.20 - 3.90 10*3/uL LAB HEMATOLOGY METHOD 07/17/2025 3:49 PM EDT [facility] Monocytes Absolute 0.71 0.30 - 0.90 10*3/uL LAB HEMATOLOGY METHOD 07/17/2025 3:49 PM EDT [facility] Eosinophils Absolute 0.13 0.00 - 0.50 10*3/uL LAB HEMATOLOGY METHOD 07/17/2025 3:49 PM EDT [facility] Basophils Absolute 0.03 0.00 - 0.10 10*3/uL LAB HEMATOLOGY METHOD 07/17/2025 3:49 PM EDT [facility] Immature Granulocytes Absolute 0.02 0.00 - 0.06 10*3/uL LAB HEMATOLOGY METHOD 07/17/2025 3:49 PM EDT [facility] Blood Venous blood specimen / Unknown Venipuncture / Unknown 07/17/2025 3:42 PM EDT 07/17/2025 3:46 PM EDT Narrative [facility] - 07/17/2025 3:49 PM EDT Therapeutic decision making should be based on absolute values, rather than percentages. us Palma Zuluaga MD LAB BLOOD ORDERABLES Final Re sult [facility] [address] [place] [address] documented in this encounter Visit Diagnoses Diagnosis Syncope, unspecified syncope type- Primary documented in this encounter Administered Medications Inactive Administered Medications - up to 3 most recent administrations Medication Order MAR Action Action Date Dose Rate Site acetaminophen (Tylenol) tablet 1,000 mg 1,000 mg, Oral, Once, 1 dose, On Raine 07/17/25 at 1920, Routine Given 07/17/2025 7:31 PM EDT 1,000 mg ondansetron (Zofran) 4 MG/2ML injection - Pyxis Override Pull 1 dose, Starting on Raine 07/17/25 at 1830, Until Raine 07/17/25 at 1834 ondansetron (Zofran) injection 4 mg 4 mg, Intravenous, Once, 1 dose, On Raine 07/17/25 at 1825, STAT Given 07/17/2025 6:34 PM EDT 4 mg documented in this encounter Active and Recently Administered Medications Times are shown in EDT. Scheduled Medication Order 07/15/2025 07/16/2025 07/17/2025 acetaminophen (Tylenol) tablet 1,000 mg (COMPLETED) 1,000 mg, Oral, Once, 1 dose, On Raine 07/17/25 at 1920, Routine 1931 (Given - Provid er: Mya Weiss) ondansetron (Zofran) injection 4 mg (COMPLETED) 4 mg, Intravenous, Once, 1 dose, On Raine 07/17/25 at 1825, STAT 1834 (Given - Provid er: Maribel Castelan RN) documented in this encounter Additional Health Concerns Assessment Noted Time PHQ-9 Depression Total Score: 9 06/17/20 9:30 AM EDT A fall risk assessment has been complete d for the patient 06/17/2025 9:30 AM EDT A Body Mass Index follow-up plan has been documented for the patient 06/17/2025 10:36 AM EDT documented as of this encounter Care Teams Life Advisor Relationship Specialty Start Date End Date Quyen Vincent DO [address] [place] [address] Dr [place], [place] [id number] PCP - General 04/09/21 documented as of this encounter
--- OUTSIDE RECORDS SUMMARY | 2025-08-04 14:02 | XMS_ITS | Clinical Summary ---
Author Organization [facility] Address [address] [place] [address] Phone Care Team Providers Care Client Project Coordinator Name Role Phone Giles DE LA CRUZ, [...] fat layer exposed Coronary artery disease (CAD) 36073109 (SNOMED CT) 01/21 Active 01/21 Georgina Ruth Coronary arteriosclerosis DM II with diabetic peripheral neuropathy 03318562 (SNOMED CT) 01/21 Active 01/21 Georgina Ruth Type 2 diabetes mellitus Benign Essential Hypertension 2514422 (SNOMED CT) 01/21 Active 01/21 Georgina Ruth Benign essential hypertension Wound infection/Ce llulitis of left foot L03.116 (ICD-10-CM ) 01/21 Active 01/21 Treva W Cellulitis of left lower limb MSSA infection 996380595 (SNOMED CT) 01/21 Active 01/21 Treva W Infection by methicillin sensitive Staphylococcus aureus Medications Medication Instructions Start Date Stop Date Generic Name ND Provider KEFLEX 500 MG ORAL CAPSULE one po qid CEPHALEXIN 22581524980 Radha Tucker APRN CEFTRIAXONE SODIUM 2 GM SOLR Rocephin 2GM IV Q24hrs - INPAT CEFTRIAXONE SODIUM 82167132441 Silvia Trujillo RN CEPHALEXIN 500 MG CAPS Take 1 by mouth 4 times a day CEPHALEXIN 27478884029 Adryan Skaggs MD CEFTRIAXONE SODIUM 2 GM SOLR Rocephin 2GM IV Q24hrs - INPAT CEFTRIAXONE SODIUM 40853410915 Yuni Christine SERTRALINE HCL 100 MG TABS 2 tablets daily SERTRALINE HCL 79696828249 Macarena Maria PRILOSEC OTC 20 MG TBEC Take 1 tablet by mouth daily OMEPRAZOLE MAGNESIUM 05741187773 Macarena Maria OXYCODONE HCL 5 MG TABS Take one (1) tablet by mouth four times a day as needed OXYCODONE HCL 29454916400 Macarena Maria NOVOLOG 100 UNIT/ML SUBCUTANEOUS SOLUTION INSULIN ASPART 01208143043 Macarena Maria LIPITOR 40 MG TABS Take 1 tablet by mouth daily ATORVASTATIN CALCIUM 23499808190 Macarena Maria LANTUS 100 UNIT/ML SOLN INSULIN GLARGINE 30923112333 Macarena Maria JARDIANCE 25 MG TABS Take 1 tablet by mouth daily in the AM EMPAGLIFLOZIN 91095606053 Macarena Maria ADULT ASPIRIN REGIMEN 81 MG ORAL TABLET DELAYED RELEASE Take 1 tablet by mouth daily ASPIRIN 25843680033 Macarena Maira Medications Administered No information available. Allergies, Adverse [...]
--- OUTSIDE RECORDS SUMMARY | 2025-08-04 14:03 | XMS_ITS | Encounter Summary ---
[facility] Address [address] [place] [address] Care Team Providers Care Stone Derrickman And Rigger Name Role Phone StuartQuyen gil Alycia Primary Care Provider [phone] Reason for Visit * Reason Comments Med Refill Encounter Details Date Type Department Care Team (Late st Contact Info) Description 06/12/2025 Refill [facility] [address] [phone] Enmanuel Fletcher MD [address] [address] Social History Tobacco Use Types [...] more drinks on one occasion? Monthly 11/29/2022 [facility] [place] of Occupat ional Health - Occupational Stress [...] Description 11/03/2025 1:00 PM EST Office Visit [facility] [address] [phone] Jennifer Villanueva PA [address] [address] Scheduled Procedures Name Priority Associated Diagnoses Date/Ti me LEFT HEART CATH w/cors Unstable angina documented as of this encounter Visit Diagnoses Not on filedocumented in this encounter Care Teams Stone Derrickman And Rigger Relationship Specialty Start Date End Date Quyen Vincent DO [facility] [place] [address] PCP - General Family Medicine 02/17/17 documented as of this encounter
--- OUTSIDE RECORDS SUMMARY | 2025-08-04 14:03 | XMS_ITS | Encounter Summary ---
[facility] Address [address] [place] [id number] Care Team Providers Care Last Code Striper Name Role Phone Quyen Vincent DO Primary Care Provider [phone] Encounter Details Date Type Department Care Team (Late st Contact Info) Description 07/06/2025 Results Follow-Up [facility] [address] [facility] [address] [place] [address] Jennifer Villanueva PA 3084 [facility] [address] [place] [address] Social History Tobacco Use Types [...] more drinks on one occasion? Monthly 11/29/2022 [place] of Occupat ional Health - Occupational Stress [...] Description 11/03/2025 1:00 PM EST Office Visit [facility] [address] [facility] [address] [place] [phone] Jennifer Villanueva PA 3084 [facility] [address] [place] [address] Scheduled Procedures Name Priority Associated Diagnoses Date/Ti me LEFT HEART CATH w/cors Unstable angina documented as of this encounter Visit Diagnoses Not on filedocumented in this encounter Care Teams Last Code Striper Relationship Specialty Start Date End Date Quyen Vincent DO [facility] [place] [address] PCP - General Family Medicine 02/17/17 documented as of this encounter
--- OUTSIDE RECORDS SUMMARY | 2025-08-04 14:03 | XMS_ITS | Encounter Summary ---
[facility] [address] [place] [address] Care Team Providers Care [place] Nurse Name Role Phone Quyen Vincent DO Primary Care Provider [phone] Encounter Details Date Type Department Care Team (Late st Contact Info) Description 06/23/2025 Telephone [facility] [address] [facility] [address] [place] [address] Jennifer Villanueva PA 3084 [facility] [address] [place] [address] Social History Tobacco Use Types [...] more drinks on one occasion? Monthly 11/29/2022 [facility] [place] of Occupat ional Health - Occupational Stress [...] Description 11/03/2025 1:00 PM EST Office Visit [facility] [address] [phone] Jennifer Villanueva PA 3084 [facility] [address] [place] [address] Scheduled Procedures Name Priority Associated Diagnoses Date/Ti me LEFT HEART CATH w/cors Unstable angina documented as of this encounter Visit Diagnoses Not on filedocumented in this encounter Care Teams County Nurse Relationship Specialty Start Date End Date Quyen Vincent [place] [facility] [place] [address] PCP - General Family Medicine 02/17/17 documented as of this encounter
--- OUTSIDE RECORDS SUMMARY | 2025-08-04 14:03 | XMS_ITS | Encounter Summary ---
[facility] Address [address] [place] [address] Care Team Providers Care Hand Collator Name Role Phone MelisaQuyen Alycia DO Primary Care Provider [phone] Encounter Details Date Type Department Care Team [...] more drinks on one occasion? Monthly 11/29/2022 [facility] [place] of Occupat ional Health - Occupational Stress [...] [facility] [address] [facility] [address] [place] [phone] Jennifer Villanueva PA 3084 [facility] [address] [place] [phone] Scheduled Procedures Name Priority Associated Diagnoses Date/Ti me LEFT HEART CATH w/cors Unstable angina documented as of this encounter Visit Diagnoses Not on filedocumented in this encounter Care Teams Hand Collator Relationship Specialty Start Date End Date Quyen Vincent DO [address] [place] [address] PCP - General Family Medicine 02/17/17 documented as of this encounter
--- OUTSIDE RECORDS SUMMARY | 2025-08-04 14:03 | XMS_ITS | Clinical Summary ---
Author Organization [facility] Address [address] [place] [address] Care Team Providers Care Raker Buffing Wheel Name Role Phone Quyen Vincentgh Primary Care Provider [phone] Allergies Active Allergy Reactions Criticality Noted Date Comments Penicillins Unknown - Low Severity Low 02/17/2017 Childhood reaction, unknown severity Medications sertraline (ZOLOFT) 100 MG tablet Take 2 tablets by mouth Every Evening. Active Insulin Syringe 31G X 516 0.5 ML miscIndications:U ncontrolled type 2 diabetes mellitus with hyperglycemia Use QID with insulin 150 each 6 8 Active gabapentin (NEURONTIN) 300 MG capsule Take 1 capsule by mouth Daily. 1 Active aspirin 81 MG chewable tablet Chew 1 tablet Daily. 3 Active tiZANidine (ZANAFLEX) 4 MG tablet Take 1 tablet by mouth As Needed. 3 Active Insulin Infusion Pump (T:slim X2 Control-IQ Pump) device Active nitroglycerin (NITROSTAT) 0.4 MG SL tablet 1 under the tongue as needed for angina, may repeat q5mins for up three doses 100 tablet 11 3 Active Brilinta 90 MG tablet tablet Take 1 tablet by mouth 2 (Two) Times a Day. 3 Active bisoprolol (ZEBeta) 5 MG tablet Take 1 tablet by mouth Daily. Active buPROPion (WELLBUTRIN) 75 MG tablet Take 1 tablet by mouth 2 (Two) Times a Day. 5 Active colestipol (COLESTID) 1 g tablet Take 2 tablets by mouth 2 (Two) Times a Day. 4 Active meloxicam (MOBIC) 15 MG tablet Take 1 tablet by mouth As Needed for Mild Pain. 4 Active primidone (MYSOLINE) 50 MG tablet Take 1 tablet by mouth Every Night. Active traMADol (ULTRAM) 50 MG tablet Take 1 tablet by mouth Every 8 (Eight) Hours. Active Continuous Glucose Sensor (Anaplan G7 Sensor) miscIndications:C ontrolled type 2 diabetes mellitus with hyperglycemia, with long-term current use of insulin Use 1 each Every 10 (Ten) Days. Patient needs an appointment before any further refills 9 each 3 5 Active vitamin D (ERGOCALCIFEROL) 1.25 MG (83619 UT) capsule capsule Vitamin D (Ergocalciferol ) 1.25 MG (43930 UT) Oral Capsule QTY: 12 Days: 84 Refills: 0 Written: 02/25/25 Patient Instructions: 5 Active folic acid (FOLVITE) 1 MG tablet Folic Acid 1 MG Oral Tablet QTY: 90 Days: 90 Refills: 0 Written: 02/25/25 Patient Instructions: 5 Active Ranolazine ER 1000 MG pack Ranolazine ER 1000 MG Oral Packet QTY: 0 packet Days: 0 Refills: 0 Written: 03/10/25 Patient Instructions: 5 Active pantoprazole (PROTONIX) 40 MG EC tablet Take 1 tablet by mouth Daily. 5 Active atorvastatin (LIPITOR) 80 MG tablet Take 1 tablet by mouth every night at bedtime. 90 tablet 3 5 Active Insulin Lispro (HumaLOG) 100 UNIT/ML injectionIndicati ons:Type 2 diabetes mellitus with hyperglycemia, with long-term current use of insulin Use up to 125 units via insulin pump daily. 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 06/07/2018 Overview (06/07/2018): Added automatically from request for surgery [id number] Anxiety 03/08/2017 CAD (coronary artery disease) 03/08/2017 [...] Department Care Team Description 07/06/2025 Results Follow-Up [facility] [address] [place] [address] Jennifer Villanueva PA 06/30/2025 8:30 AM EDT Office Visit [facility] [address] [place] [address] Jennifer Villanueva PA Type 2 diabetes mellitus with hyperglycemia, with long-term current use of insulin (Primary Dx); Abnormal thyroid function test 06/30/2025 Travel 06/23/2025 Telephone [facility] [address] [place] [address] Jennifer Villanueva PA 06/12/2025 Refill [facility] [address] [facility] [address] [place] [address] Enmanuel Fletcher MD from Last 3 Months Immunizations Immunization Administration Dates Next Due Fluzone (or Fluarix & Flulaval for VFC) >6mos Hepatitis A 09/20/2018 Influenza, Unspecified 09/20/2018 Family History Medical History Relation Name Comments Diabetes Father Desean Delgado type 2 Diabetes Maternal Grandfather Hiro Lebron Type 2 Heart attack Maternal Grandfather Hiro Lebron Diabetes Mother Fabian Guy Type 2 Hypertension Mother Fabian Guy Kidney disease Mother Fabian Guy Lupus Mother Fabian Guy Diabetes Paternal Grandmother Delores Delgado Type [...] more drinks on one occasion? Monthly 11/29/2022 [facility] [...] Description 11/03/2025 1:00 PM EST Office Visit [facility] [address] [phone] Jennifer Villanueva PA [address] [facility] [address] [place] [address] Scheduled Procedures Name Priority Associated [...] 03/08/2017 ZOSTER VACCINE (1 of 2) 2020 URINE MICROALBUMIN-CREATININ E RATIO (uACR) 07/05/2025 07/05/2024, 12/13/2022, 01/27/2021, Additional history exists COVID-19 Vaccine (3 - 2024-2 6 season) 2025 03/10/2021, 02/11/2021 INFLUENZA VACCINE 08/27/2025 08/17/2024, , 09/20/2018 LIPID PANEL 12/10/2025 12/10/2024, 08/0 07/2024, 08/01/2023, Additional history exists HEMOGLOBIN A1C 12/31/2025 06/30/2025, 0404/2025, 12/10/2024, Additional history exists DIABETIC FOOT EXAM 06/30/2026 06/30/2025, 0 06/30/2025, 06/30/2025, Additional history exists COLONOSCOPY 06/27/2027 06/27/2017 COLORECTAL CANCER SCREENING 06/27/2027 [facility] Discontinued Procedures Procedure Name Priority Date/Time Associated [...] - 4.200 uIU/mL 06/30/2025 2:51 PM EDT [facility] Blood Structure of left upper limb / Unknown Venipuncture / Unknown 06/30/2025 9:32 AM EDT 06/30/2025 9:32 AM EDT us Jennifer MANCINI LAB BLOOD ORDERABLES Final Resu lt [facility]
[address] [place] [address], * T4, Free (06/30/2025 9:32 AM EDT) Pathologist [facility] Free T4 1.60 0.92 - 1.68 ng/dL 06/30/2025 2:51 PM EDT [facility] Blood Structure of left upper limb / Unknown Venipuncture / Unknown 06/30/2025 9:32 AM EDT 06/30/2025 9:32 AM EDT Jennifer MANCINI LAB BLOOD ORDERABLES Final Resu lt [facility]
[address] [place] [address], * (ABNORMAL) Comprehensive Metabolic Panel (06/30/2025 9:32 AM EDT) [facility] Glucose 93 65 - 99 mg/dL 06/30/2025 2:51 PM EDT [facility] BUN 26.0(H) 6.0 - 20.0 mg/dL 06/30/2025 2:51 PM EDT [facility] Creatinine 1.86(H) 0.76 - 1.27 mg/dL 06/30/2025 2:51 PM EDT [facility] Sodium 142 136 - 145 mmol/L 06/30/2025 2:51 PM EDT [facility] Potassium 4.1 3.5 - 5.2 mmol/L 06/30/2025 2:51 PM EDT [facility] Chloride 99 98 - 107 mmol/L 06/30/2025 2:51 PM EDT [facility] CO2 27.1 22.0 - 29.0 mmol/L 06/30/2025 2:51 PM EDT [facility] Calcium 9.8 8.6 - 10.5 mg/dL 06/30/2025 2:51 PM EDT [facility] Total Protein 8.0 6.0 - 8.5 g/dL 06/30/2025 2:51 PM EDT [facility] Albumin 4.6 3.5 - 5.2 g/dL 06/30/2025 2:51 PM EDT [facility] ALT (SGPT) 21 1 - 41 U/L 06/30/2025 2:51 PM T [facility] AST (SGOT) 25 1 - 40 U/L 06/30/2025 2:51 PM EDT [facility] Alkaline Phosphatase 156(H) 39 - 117 U/L 06/30/2025 2:51 PM EDT [facility] Total Bilirubin 0.7 0.0 - 1.2 mg/dL 06/30/2025 2:51 PM EDT [facility] Globulin 3.4 gm/dL 06/30/2025 2:51 PM [facility] A/G Ratio 1.4 g/dL 06/30/2025 2:51 PM T [facility] BUN/Creatinine Ratio 14.0 7.0 - 25.0 06/30/2025 2:51 PM [facility] Anion Gap 15.9(H) 5.0 - 15.0 mmol/L 06/30/2025 2:51 PM [facility] eGFR 42.5(L) >60.0 mL/min/1.7 3 06/30/2025 2:51 PM [facility] Blood Structure of left upper limb / Unknown Venipuncture / Unknown 06/30/2025 9:32 AM EDT 06/30/2025 9:32 AM EDT [facility] - 06/30/2025 2:51 PM EDT [...] MANCINI LAB BLOOD ORDERABLES Final Resu lt [facility]
[address] [place] [address], * (ABNORMAL) POC Glycosylated Hemoglobin (Hb A1C) (06/30/2025 8:47 AM EDT) Hemoglobin A1C 6.9(A) 4.5 - 5.7 % [facility] Lot Number [id number] [facility] Expiration Date 03/05/2027 [facility] Blood 06/30/2025 8:47 AM EDT Jennifer MANCINI POINT OF CARE TEST ORDERABLES F inal Result [facility]
[address] [place] [address], * POC Glucose, Blood (06/30/2025 8:44 AM EDT) Glucose 121 70 - 130 mg/dL Lot Number [id number] Expiration Date 12/30/2025 Blood 06/30/2025 8:44 AM EDT Jennifer MANCINI POINT OF CARE TEST ORDERABLES F inal Result * (ABNORMAL) Lipid Panel (12/10/2024 2:10 PM EST) Total Cholesterol 148 0 - 200 mg/dL 12/11/2024 12:18 AM EST [facility] Triglycerides 219(H) 0 - 150 mg/dL 12/11/2024 12:18 AM EST [facility] HDL Cholesterol 36(L) 40 - 60 mg/dL 12/11/2024 12:18 AM EST [facility] LDL Cholesterol 76 0 - 100 mg/dL 12/11/2024 12:18 AM EST [facility] VLDL Cholesterol 36 5 - 40 mg/dL 12/11/2024 12:18 AM EST [facility] LDL/HDL Ratio 1.89 12/11/2024 12:18 AM EST [facility] Blood Structure of left upper limb / Unknown Venipuncture / Unknown 12/10/2024 2:10 PM EST 12/10/2024 2:11 PM EST [facility] - 12/11/2024 12:18 AM EST [...] Villeda PA-C LAB BLOOD ORDERABLES Final Result [facility]
[address] [place] [address], * Microalbumin / Creatinine Urine Ratio - Urine, Clean Catch (07/05/2024 4:42 PM EDT) Microalbumin/C reatinine Ratio 13.4 0.0 - 29.0 mg/g 07/06/2024 12:38 AM EDT [facility] Creatinine, Urine 149.4 mg/dL 07/06/2024 12:38 AM EDT [facility] Microalbumin, Urine 2.0 mg/dL 07/06/2024 12:38 AM EDT [facility] Urine Urine specimen obtained by clean catch procedure / Unknown Collection / Unknown 07/05/2024 4:42 PM EDT 07/05/2024 4:42 PM EDT Bhargav Villeda PA-C URINE ORDERABLES Final Res ult [facility]
[address] [place] [address], from Last 3 Months or Most Recently Relevant to Health Maintenance Insurance [employer] [place] [address] Advance Directives * CPR (Attempt to Resuscitate) [...] Of Support Discussed With: Patient Care Teams Raker Buffing Wheel Relationship Specialty Start Date End Date Quyen Vincent DO [address] [place] [address] PCP - General Family Medicine 02/17/17
--- OUTSIDE RECORDS SUMMARY | 2025-08-04 14:04 | XMS_ITS | Encounter Summary ---
Author Organization Healthcare Address [facility] [place] [id number] Care Team Providers Care Product Transfer Pumper Name Role Phone Quyen Vincent DO Primary Care Provider [phone] Encounter Details Date Type Department Care Team [...] Questionnaire-9 Score 9 06/17/2025 9:30 AM EDT Olegario, Melonie twan R * If you checked off any [...] all 06/17/2025 9:30 AM EDT Imelda Day R documented as of this encounter Plan of Treatment Upcoming Encounters Date Type Department Care Team (Late st Contact Info) Description 09/03/2025 11:30 AM EDT Office Visit [facility] [place] [address] [place] [address] Ronal Clemens MD [address] [place] [address] 09/23/2025 11:00 AM EDT Office Visit [facility] [address] [place] [address] Kerline Holcomb APRN [address] [place] [address] 10/14/2025 4:00 PM EST Office Visit [facility] [address] [place] [address] Martha Rodrigues MBBS [address] [place], [place] [id number] documented as of this encounter Visit Diagnoses [...] documented as of this encounter Care Teams Product Transfer Pumper Relationship Specialty Start Date End Date Quyen Vincent DO [address] [place], [place] [address]e Dr Rosado, KACEY [id number] PCP - General 04/09/21 documented as of this encounter
--- OUTSIDE RECORDS SUMMARY | 2025-08-04 14:04 | XMS_ITS | Clinical Summary ---
Author Organization Healthcare Address [address] [id number] Care Team Providers Care Chief Diversity Officer Name Role Phone Quyen Vincent DO Primary Care Provider [phone] Allergies Active Allergy Reactions Criticality Noted Date [...] 4 Active ergocalciferol (Vitamin D-2) 1.25 MG (49669 UT) capsule 5 Active folic acid (Folvite) [...] Encounters Date Type Department Care Team Description 07/22/2025 Telephone Cardiac Imaging [address] [place] [address] Reji Reeves 07/21/2025 Telephone [facility] [address], [address] [place] [address] Ronal Clemens MD 07/17/2025 3:24 PM EDT - 07/17/2025 9:54 PM EDT Emergency [facility] Emergency Department [address] [place] [address] Palma Mcdonald MD Syncope, unspecified syncope type (Primary Dx) Discharge Disposition: Home or Self Care 07/17/2025 Orders Only External Location [address] [place] [address] Provider, External 07/17/2025 Travel 06/17/2025 10:52 AM EDT - 06/17/2025 11:59 PM EDT Hospital Encounter [facility] [address], 1[address] [place] [phone] Low back pain, unspecified back pain laterality, unspecified chronicity, unspecified whether sciatica present Discharge Disposition: Home or Self Care 06/17/2025 9:30 AM EDT Consult [facility] [address], [address] [place] [phone] Aicha, November R, [employer] Muscle weakness (Primary Dx); Frequent falls; Low back pain, unspecified back pain laterality, unspecified chronicity, unspecified whether sciatica present; Foot drop, left 06/17/2025 Travel 06/10/2025 Travel 05/05/2025 Telephone [facility] [address], [address] [place] [address] None, None from Last 3 Months [...] lewis phipot Heart disease Maternal Grandfather lewis phipot Autoimmune disease Mother jad eals Diabetes Mother jad eals Immunodeficiency Mother jad eals Kidney disease Mother jad eals Rheumatologic disease Mother jad eals Diabetes Paternal Grandmother johnathan delgado Relation Name Status Comments Father nickolas delgado Maternal Grandfather lewis phipot Mother jad eals Paternal Grandmother johnathan delgado Alive Social History [...] Mass Index 30.56 07/17/2025 3:32 PM EDT Plan of Treatment Upcoming Encounters Date Type Department Care Team (Late st Contact Info) Description 09/03/2025 11:30 AM EDT Office Visit [facility] [address], [address] [place] [address] Ronal Clemens MD [address] [place] [address] 09/23/2025 11:00 AM EDT Office Visit [facility] [address], [address] [place] [address] Kerline Holcomb R, [employer] [address] [place] [address] 10/14/2025 4:00 PM EST Office Visit [facility] [address], [address] [place] [address] GwenMartha lee, MBBS [address] [place] [id number] Health Maintenance Due Date Last Done Comments [facility]-Infant/Child/Adol SDOH Screenings 1970 [facility]- SDOH Screenings 1988 [facility]-Adult SDOH Screenings 1988 [facility]-DTaP,Tdap,and Td Vaccine s (1 - Tdap) 1989 [facility]-Hepatitis B Vaccines (1 of 3 - 19+ 3-dose series) 1989 [facility]-Pneumococcal Vaccine: 50 + Years (1 of 2 - PCV) 1989 CT Colonography 2015 Colonoscopy 2015 FIT-DNA 2015 FIT 2015 FOBT 2015 Sigmoidoscopy 2015 [facility]-Colorectal Cancer Screening 2015 [facility]-Zoster Vaccines (1 of 2) 2020 [facility]XY-RPOTF-02 Vaccine (3 - season) 2025 03/10/2021, 02/11/2021 [facility]-Influenza Vaccine (#1) 07/28/202508/17, 09/01/2020, 09/20/2018 [facility]-Depression Screening 06/17/2026 025, 06/17/2025 [facility]-Hepatitis A Vaccines Aged Out 09/20/2018 No longer eligible based on patient's age to complete this topic [facility]-Obesity Intervention Completed 06/17/2025 [facility]-HIV Screening Completed 07/17/2025 [facility]-Hepatitis C Screening Completed 07/17/2025 HPV Vaccines Aged Out No longer eligi [...] ANTIBODY DIFFERENTIATION STAT 07/17/2025 3:42 PM EDT HEPATITIS C ANTIBODY - ED W/REFLEX TO HCV QUANT PCR STAT 07/17/2025 3:42 PM EDT TROPONIN T, HIGH SENSITIVITY, 0 HOUR, PLASMA, REFLEX TO 2 HOUR STAT 07/17/2025 3:42 PM EDT BASIC METABOLIC PANEL, PLASMA STAT 07/17/2025 3:42 PM EDT CBC WITH AUTO DIFFERENTIAL STAT 07/17/2025 3:42 PM EDT POC ULTRASOUND 07/17/2025 XR SACROILIAC JOINTS 3+ VIEWS Routine 06/17/2025 [...] left from Last 3 Months Results * POCT glucose meter (07/17/2025 5:55 PM EDT) [facility] POCT Glucose 97 74 - 99 mg/dL 07/17/2025 5:57 PM EDT [facility] Comment:Accuracy of a glucos e result [...] Comment 07/17/2025 5:57 PM EDT [facility] Softball Winder ID Maribel Castelan 025 5:57 PM EDT [facility]ALTH[facility] Device ID [id number] 07/17/2025 5:57 PM EDT [facility]ALTH[facility]ARE [facility] Specimen Type POC Capillary 07/17/2025 5:57 PM EDT [facility] Blood Capillary blood specimen / Unknown 07/17/2025 5:55 PM EDT 07/17/2025 5:57 PM EDT us Generic Provider Poct LAB POINT OF CARE TEST DOCKED DEVICE UNSOLICITED RESULTS Final Result [facility] [address] [place] [address] * (ABNORMAL) Troponin T, High Sensitivity, 2 Hour, Plasma (07/17/2025 5:52 PM EDT) [facility] Troponin T, High Sensitivity, 2 Hour 47(H) <19 ng/L 07/17/2025 6:25 PM EDT [facility] Troponin Delta 6 <10 ng/L 07/17/2025 6:25 PM EDT [facility] Troponin Delta Interpretation Not Significant 07/17/2025 6:25 PM EDT [facility] Comment:Not Significant. No acute change in troponin observed between the baseline and 2 hour samples. Blood Venous blood specimen / Unknown Venipuncture / Unknown 07/17/2025 5:52 PM EDT 07/17/2025 5:56 PM EDT us Palma Mcdonald MD LAB BLOOD ORDERABLES Final Re sult [facility] [address] [place] [address] * XR Chest 1 View (07/17/2025 5:44 [...] MD on 07/17/2025 5:55 PM us Palma Mcdonald MD IMG XR PROCEDURES Final Resul t [...] Ralph Palmer MD on 07/17/2025 5:55 PM Palma Mcdonald MD IMG XR PROCEDURES Final Resul t * EKG now - STAT (adult) (07/17/2025 4:17 PM EDT) EKG DIAGNOSIS CLASS Normal MUSE ECG Ventricular Rate 74 BPM MUSE ECG Atrial Rate [address] Interval 190 ms MUSE ECG QRSD Interval 88 ms MUSE ECG QT Interval 410 ms MUSE ECG QTC Interval 455 ms MUSE ECG P Ackworth 54 degrees MUSE ECG R Ackworth -26 degrees MUSE ECG T Wave Ackworth 57 degrees MUSE ECG Diagnosis Normal sinus rhythm MUSE ECG Diagnosis Normal ECG MUSE ECG Diagnosis MUSE ECG Diagnosis Confirmed by Mark Orosco ([id number]) on 07/17/2025 4:44:10 PM MUSE ECG 07/17/2025 4:17 PM EDT 07/17/2025 4:44 PM EDT Palma Mcdonlad MD ECG ORDERABLES Final Result MUSE ECG [...] Total DLP (Dose-Length Product): 1206.95 mGy.cm (accession [id number]), 1206.95 mGy.cm (accession [id number]). Please note: The reported value represents the [...] Multilevel degenerative endplate change and facet arthropathy. Mzkh-sp-dhenmyzi multilevel spondylotic change. Included portions of the lung apices demonstrate scarring and atelectasis without acute focal consolidation. Procedure Note Jay Yao MD - 07/17/2025 CLINICAL INDICATION: fall TECHNIQUE: Axial CT images of the head were obtained without contrastadministration. CT cervical spine without intravenous contrast. Coronal and sagittalreformatted images obtained. Total DLP (Dose-Length Product): 1206.95 mGy.cm (accession [id number]),1206.95 mGy.cm (accession [id number]). Please note: The reported valuerepresents the total [...] subluxation. Multilevel degenerative endplate changeand facet arthropathy. Kguj-xf-tphlwhdz multilevel spondylotic change. Included portions of the [...] MD on 07/17/2025 4:28 PM us Palma Mcdonald MD IMG CT PROCEDURES Final Resul t [...] Total DLP (Dose-Length Product): 1206.95 mGy.cm (accession [id number]), 1206.95 mGy.cm (accession [id number]). Please note: The reported value represents the [...] Multilevel degenerative endplate change and facet arthropathy. Lexs-ro-lmfvzbdz multilevel spondylotic change. Included portions of the lung apices demonstrate scarring and atelectasis without acute focal consolidation. Procedure Note Jay Yao MD - 07/17/2025 CLINICAL INDICATION: fall TECHNIQUE: Axial CT images of the head were obtained without contrastadministration. CT cervical spine without intravenous contrast. Coronal and sagittalreformatted images obtained. Total DLP (Dose-Length Product): 1206.95 mGy.cm (accession [id number]),1206.95 mGy.cm (accession [id number]). Please note: The reported valuerepresents the total [...] subluxation. Multilevel degenerative endplate changeand facet arthropathy. Gpli-uq-ndvpqzyb multilevel spondylotic change. Included portions of the [...] Jay Yao MD on 07/17/2025 4:28 PM Result Mauro Mcdonald MD IMG CT PROCEDURES Final Resul t * ED HIV 1/2 Antibody/Antigen Screen w/Reflex to HIV 1/2 Differentiation (07/17/2025 3:42 PM EDT) [facility] HIV 1 & 2 Antibody/Antigen Screen Non Reactive Non Reactive 07/17/2025 5:13 PM EDT [facility] Comment:Screening for HIV 1 & 2 antibodies, and P24 antigen is NONREACTIVE. No confirmatory testing is required. Blood Venous blood specimen / Unknown Venipuncture / Unknown 07/17/2025 3:42 PM EDT 07/17/2025 4:26 PM EDT Result Mauro Mcdonald MD LAB BLOOD ORDERABLES Final Re sult Performing Organization Address City/[facility]/ZIP Co de Phone Number [facility] [address] [place] [address] * (ABNORMAL) Troponin now and 120 min (07/17/2025 3:42 PM EDT) [facility] Troponin T, High Sensitivity, 0 Hour 53(H) <19 ng/L 07/17/2025 4:12 PM EDT [facility] Blood Venous blood specimen / Unknown Venipuncture / Unknown 07/17/2025 3:42 PM EDT 07/17/2025 3:46 PM EDT Result Mauro Mcdonald MD LAB BLOOD ORDERABLES Final Re sult [facility] [address] [place] [address] * Hepatitis C Antibody - ED (07/17/2025 3:42 PM EDT) [facility] Hepatitis C Antibody Negative Negative 07/17/2025 5:13 PM EDT [facility] Blood Venous blood specimen / Unknown Venipuncture / Unknown 07/17/2025 3:42 PM EDT 07/17/2025 4:26 PM EDT us Palma Mcdonald MD LAB BLOOD ORDERABLES Final Re sult [facility] [address] [place] [address] * (ABNORMAL) CBC w/diff (07/17/2025 3:42 PM EDT) Only the most recent of2 resultswithin the time period is included. WBC Count 6.35 3.70 - 10.30 10*3/uL LAB HEMATOLOGY METHOD 07/17/2025 3:49 PM EDT [facility] RBC Count 4.59(L) 4.60 - 6.10 10*6/uL LAB HEMATOLOGY METHOD 07/17/2025 3:49 PM EDT [facility] HGB 13.1(L) 13.7 - 17.5 g/dL LAB HEMATOLOGY METHOD 07/17/2025 3:49 PM EDT [facility] HCT 39.8(L) 40.0 - 51.0 % LAB HEMATOLOGY METHOD 07/17/2025 3:49 PM EDT [facility] Platelet Count 156 155 - 369 10*3/uL LAB HEMATOLOGY METHOD 07/17/2025 3:49 PM EDT [facility] MCV 87 79 - 98 fL LAB HEMATOLOGY METHOD 07/17/2025 3:49 PM EDT [facility] MCH 28.5 26.0 - 32.0 pg LAB HEMATOLOGY METHOD 07/17/2025 3:49 PM EDT [facility] MCHC 32.9 30.7 - 35.5 g/dL LAB HEMATOLOGY METHOD 07/17/2025 3:49 PM EDT [facility] RDW 13.5 11.5 - 14.5 % LAB HEMATOLOGY METHOD 07/17/2025 3:49 PM EDT [facility] MPV 9.7 8.8 - 12.5 fL LAB HEMATOLOGY METHOD 07/17/2025 3:49 PM EDT [facility] nRBC 0.0 <=0.0 per 100 WBCs LAB HEMATOLOGY METHOD 07/17/2025 3:49 PM EDT [facility] Differential Type Automated LAB HEMATOLOGY METHOD 07/17/2025 3:49 PM EDT [facility] Neutrophils % 69 % LAB HEMATOLOGY METHOD 07/17/2025 3:49 PM EDT [facility] Lymphocytes % 17 % LAB HEMATOLOGY METHOD 07/17/2025 3:49 PM EDT [facility] Monocytes % 11 % LAB HEMATOLOGY METHOD 07/17/2025 3:49 PM EDT [facility] Eosinophils % 2 % LAB HEMATOLOGY METHOD 07/17/2025 3:49 PM EDT [facility] Basophils % 1 % LAB HEMATOLOGY METHOD 07/17/2025 3:49 PM EDT [facility] Immature Granulocytes % 0 % LAB HEMATOLOGY METHOD 07/17/2025 3:49 PM EDT [facility] Neutrophils Absolute 4.40 1.60 - 6.10 10*3/uL LAB HEMATOLOGY METHOD 07/17/2025 3:49 PM EDT [facility] Lymphocytes Absolute 1.06(L) 1.20 - 3.90 10*3/uL LAB HEMATOLOGY METHOD 07/17/2025 3:49 PM EDT [facility] Monocytes Absolute 0.71 0.30 - 0.90 10*3/uL LAB HEMATOLOGY METHOD 07/17/2025 3:49 PM EDT [facility] Eosinophils Absolute 0.13 0.00 - 0.50 10*3/uL LAB HEMATOLOGY METHOD 07/17/2025 3:49 PM EDT [facility] Basophils Absolute 0.03 0.00 - 0.10 10*3/uL LAB HEMATOLOGY METHOD 07/17/2025 3:49 PM EDT [facility] Immature Granulocytes Absolute 0.02 0.00 - 0.06 10*3/uL LAB HEMATOLOGY METHOD 07/17/2025 3:49 PM EDT [facility] Blood Venous blood specimen / Unknown Venipuncture / Unknown 07/17/2025 3:42 PM EDT 07/17/2025 3:46 PM EDT Narrative [facility] - 07/17/2025 3:49 PM EDT Therapeutic decision making should be based on absolute values, rather than percentages. us Palma Mcdonald MD LAB BLOOD ORDERABLES Final Re sult [facility] [address] [place] [address] * (ABNORMAL) BMP (07/17/2025 3:42 PM EDT) Glucose, Plasma 97 74 - 99 mg/dL 07/17/2025 4:12 PM EDT [facility] BUN, Plasma 41(H) 7 - 21 mg/dL 07/17/2025 4:12 PM EDT [facility] Creatinine, Plasma 2.34(H) 0.70 - 1.20 mg/dL 07/17/2025 4:12 PM EDT [facility] BUN/Creatinine Ratio 18 07/17/2025 4:12 PM EDT [facility] Sodium, Plasma 137 136 - 145 mmol/L 07/17/2025 4:12 PM EDT [facility] Potassium, Plasma 4.3 3.6 - 4.9 mmol/L 07/17/2025 4:12 PM EDT [facility] Chloride, Plasma 100 97 - 107 mmol/L 07/17/2025 4:12 PM EDT [facility] CO2, Plasma 24 22 - 29 mmol/L 07/17/2025 4:12 PM EDT [facility] Anion Gap 13 6 - 16 mmol/L 07/17/2025 4:12 PM EDT [facility] Total Calcium, Plasma 8.9 8.9 - 10.2 mg/dL 07/17/2025 4:12 PM EDT [facility] eGFRcr 32.2 mL/min/1.7 3m*2 07/17/2025 4:12 PM EDT [facility] Comment:Reported eGFRcr in m L/min/1.73m2 is based the CKD-EPI 2020 equation that does not use a race coefficient. Blood Venous blood specimen / Unknown Venipuncture / Unknown 07/17/2025 3:42 PM EDT 07/17/2025 3:46 PM EDT us Palma Mcdonald MD LAB BLOOD ORDERABLES Final Re sult [facility] [address] [place] [address] * POC Imaging (07/17/2025) Anatomical Region Laterality Modality Pelvis Other 07/17/2025 us External Provider IMG POINT OF CARE ULTRASOUND F inal Result * XR Sacroiliac Joints 3+ Views (06/17/2025 [...] Bk Corey MD on 06/17/2025 11:49 AM us Kerline R Aicha [employer] IMG XR PROCEDURES Final Res ult * ANCA Vasculitis Profile (06/17/2025 10:50 AM EDT) Myeloperoxidase (MPO) Ab, IgG 0 0 - 19 AU/mL 06/19/2025 2:50 PM EDT [facility] ([facility]) Serine Proteinase 3 (PR3) Ab, IgG 0 0 - 19 AU/mL 06/19/2025 2:50 PM EDT [facility] ([facility]) ANCA IFA Titer <1:20 <1:20 06/19/2025 2:50 PM EDT [facility] ([facility]) ANCA IFA Pattern None Detected None Detected 06/19/2025 2:50 PM EDT [facility] ([facility]) Blood Venous blood specimen / Unknown Venipuncture / Unknown 06/17/2025 10:50 AM EDT 06/17/2025 10:51 AM EDT Narrative [facility] ([facility]) - 06/19/2025 2:50 PM EDT [...] collagen vascular disease or arthritis. Performed By: [facility] [address] [place] [id number] Syrup Mixer: Galen Pereira MD, PhD CLIA Number: [id number] november Aicha [employer] LAB BLOOD ORDERABLES Final Result [facility] [address] [place] [id number] * DNA Isolation and Hold (HLA) (06/17/2025 10:50 AM EDT) Blood Venous blood specimen / Unknown Venipuncture / Unknown 06/17/2025 10:50 AM EDT 06/17/2025 10:51 AM EDT november R Aicha [employer] LAB MOLECULAR DIAGNOSTICS O RDERABLES Final Result [facility] [address] [place] [address], [place] * Marshall (OMAR) Antibody, IgG (06/17/2025 10:50 AM EDT) Marshall (OMAR) Antibody, IgG 1 0 - 40 AU/mL 06/19/2025 3:00 PM EDT [facility] Serum 06/17/2025 10:5 0 AM EDT 06/17/2025 10:51 AM EDT Narrative [facility] ([facility]) - 06/19/2025 3:00 PM EDT [...] associations with SLE clinical manifestations. Performed By: [facility] [address] [place] [address] Syrup Mixer: Galen Pereira MD, PhD CLIA Number: [id number] november Aicha [employer] LAB REF LAB BLOOD AND FLUID ORD Final Result Performing Organization Address City/[facility]/ZIP Co de Phone Number [facility] ([employer]) [address] [place] [address] * Myositis Antibody Panel (SO) (06/17/2025 10:50 AM EDT) Marshall/SOCIAL WORKER PALLIATIVE CARE (OMAR) Ab, IgG 2 0 - 19 Units 06/23/2025 7:22 PM EDT [facility] ([facility]) SSA-52 (RO52) (OMAR) Antibody, IgG 2 0 - 40 AU/mL 06/23/2025 7:22 PM EDT [facility] ([facility]) Treasure-1 (Histidyl-tRNA Synthetase) Ab, IgG 1 0 - 40 AU/mL 06/23/2025 7:22 PM EDT [facility] ([facility]) PM/Scl 100 Antibody, IgG Negative Negative 06/23/2025 7:22 PM EDT [facility] ([facility]) AL-2 (NUCLEAR HELICASE PROTEIN) ANTIBODY Negative Negative 06/23/2025 7:22 PM EDT [facility] ([facility]) PL-7 (THREONYL-TRNA SYNTHETASE) ANTIBODY Negative Negative 06/23/2025 7:22 PM EDT [facility] ([facility]) PL-12 (ALANYL-TRNA SYNTHETASE) ANTIBODY Negative Negative 06/23/2025 7:22 PM EDT [facility] ([facility]) P155/140 ANTIBODY Negative Negative 06/23/2025 7:22 PM EDT [facility] ([facility]) EJ (GLYCYL-TRNA SYNTHETASE) ANTIBODY Negative Negative 06/23/2025 7:22 PM EDT [facility] ([facility]) KU ANTIBODY Negative Negative 06/23/2025 7:22 PM EDT [facility] ([facility]) SRP (SIGNAL RECOGNITION PARTICLE) AB Negative Negative 06/23/2025 7:22 PM EDT [facility] ([facility]) OJ (ISOLEUCYL-TRNA SYNTHETASE) ANTIBODY Negative Negative 06/23/2025 7:22 PM EDT [facility] ([facility]) SSA-60 (RO60) (OMAR) Antibody, IgG 0 0 - 40 AU/mL 06/23/2025 7:22 PM EDT [facility] ([facility]) Fibrillarin (U3 SOCIAL WORKER PALLIATIVE CARE) Ab, IgG Negative Negative 06/23/2025 7:22 PM EDT [facility] ([facility]) MYOSITIS PANEL INTERPRETIVE DATA See Note 06/23/2025 7:22 PM EDT [facility] ([facility]) SAE1 (SUMO ACTIVATING ENZYME) AB Negative Negative 06/23/2025 7:22 PM EDT [facility] ([facility]) MDA5 (CADM-140) AB Negative Negative 06/23/2025 7:22 PM EDT [facility] ([facility]) NXP2 (NUCLEAR MATRIX PROTEIN-2) AB Negative Negative 06/23/2025 7:22 PM EDT [facility] ([facility]) TIF-1 GAMMA (155 KDA) AB Negative Negative 06/23/2025 7:22 PM EDT [facility] ([facility]) Anti Nuc Ab Screen <1:80 <1:80 06/23/2025 7:22 PM EDT [facility] ([facility]) CHAIM INTERPRETIVE COMMENT See Note 06/23/2025 7:22 PM EDT [facility] ([facility]) Bunch (tyrosyl-tRNA synthetase) Ab Negative Negative 06/23/2025 7:22 PM EDT [facility] ([facility]) Ks (asparaginyl-tRN A synthetase) Ab Negative Negative 06/23/2025 7:22 PM EDT [facility] ([facility]) Zo (phenylalanyl-tR NA synthetase) Ab Negative Negative 06/23/2025 7:22 PM EDT [facility] ([facility]) HMGCR Antibody Screen Negative Negative 06/23/2025 7:22 PM EDT [facility] ([facility]) Blood Venous blood specimen / Unknown Venipuncture / Unknown 06/17/2025 10:50 AM EDT 06/17/2025 10:51 AM EDT Narrative [facility] ([facility]) - 06/23/2025 7:22 PM EDT INTERPRETIVE INFORMATION: [...] . . . . . . X Marshall/SOCIAL WORKER PALLIATIVE CARE (OMAR) Ab, IgG . . . . [...] . . . . X Fibrillarin (U3 SOCIAL WORKER PALLIATIVE CARE) Ab, IgG . . . . . [...] Ab . . . . X HMG[facility] (0-Didxyil-6-Methylglutaryl Coenzyme A Reductase) . . . . . . . . X This test was developed and its performance characteristics determined by [facility]. It has not been cleared or approved [...] (interstitial lung disease), Raynaud phenomenon, arthritis, and mechanical test technician's hands (implicated in antisynthetase syndrome). INTERPRETIVE INFORMATION: Marshall/SOCIAL WORKER PALLIATIVE CARE (OMAR) Antibody, IgG 19 Units or Less ............. Negative 20 to 39 Units ............... Weak Positive 40 to 80 Units ............... Moderate Positive 81 Units or greater .......... Strong Positive Marshall/SOCIAL WORKER PALLIATIVE CARE antibodies are frequently seen in patients with mixed connective tissue disease (MCTD) and are also associated with other systemic autoimmune rheumatic diseases (SARDs) such as systemic lupus erythematosus (SLE), systemic sclerosis, and myositis. Antibodies targeting the Marshall/SOCIAL WORKER PALLIATIVE CARE antigenic complex also recognize Marshall antigens, therefore, [...] developed and its performance characteristics determined by [facility]. It has not been cleared or approved [...] Greater .......... Positive Interpretive Information: Fibrillarin (U3 SOCIAL WORKER PALLIATIVE CARE) Antibody, IgG The presence of fibrillarin (U3-SOCIAL WORKER PALLIATIVE CARE) IgG antibodies in association with an CHAIM [...] a multi-ethnic cohort of SSc patients (n=98), U3-SOCIAL WORKER PALLIATIVE CARE antibodies detected by immunoblot had an agreement of 98.9 percent with the gold standard immunoprecipitation (IP) assay. Approximately 71 percent (5/7) of the borderline U3-SOCIAL WORKER PALLIATIVE CARE results with CHAIM nucleolar pattern in this cohort were IP negative. This test was developed and its performance characteristics determined by [facility]. It has not been cleared or approved [...] further testing will be performed. Performed By: [facility] [address] [place] [id number] Syrup Mixer: Galen Pereira MD, PhD CLIA Number: [id number] November R [facility] LAB BLOOD ORDERABLES Final Result [facility] ([facility]) [address] [place] [address] * Creatine Kinase (CK), Total (06/17/2025 10:50 AM EDT) Creatine Kinase, Plasma 180 49 - 320 U/L 06/17/2025 12:30 PM EDT [facility] Blood Venous blood specimen / Unknown Venipuncture / Unknown 06/17/2025 10:50 AM EDT 06/17/2025 10:51 AM EDT November [facility] LAB BLOOD ORDERABLES Final Result [facility] [address] [place] [address] * HLA B27 Typing (06/17/2025 10:50 AM EDT) Blood Venous blood specimen / Unknown Venipuncture / Unknown 06/17/2025 10:50 AM EDT 06/17/2025 10:51 AM EDT November Aicha [facility] LAB BLOOD ORDERABLES Final Result Performing Organization Address City/[facility]/ZIP Co de Phone Number [facility] [address] * Thyroid Peroxidase Antibody (06/17/2025 10:50 AM EDT) Thyroid Peroxidase Antibody <5 <=8 IU/mL 06/17/2025 2:18 PM EDT [facility] Blood Venous blood specimen / Unknown Venipuncture / Unknown 06/17/2025 10:50 AM EDT 06/17/2025 10:51 AM EDT November Aicha [employer] LAB BLOOD ORDERABLES Final Result Performing Organization Address [facility] de Phone Number [facility] [address] [place] [address] * Double-Stranded DNA (dsDNA) Antibody, IgG by IFA (06/17/2025 10:50 AM EDT) Double-Strande d DNA (dsDNA) Ab IgG IFA <1:10 <1:10 06/19/2025 9:48 AM EDT [facility] ([facility]) Blood Venous blood specimen / Unknown Venipuncture / Unknown 06/17/2025 10:50 AM EDT 06/17/2025 10:51 AM EDT Narrative [facility] ([facility]) - 06/19/2025 9:48 AM EDT INTERPRETIVE INFORMATION: [...] recommendations for testing may be found at [email or web address]. Performed By: [facility] [address] [place] [address] Syrup Mixer: Galen Pereira MD, PhD CLIA Number: [id number] November R [facility] LAB BLOOD ORDERABLES Final Result Performing Organization Address [facility]/ZIP Co de Phone Number [facility] ([facility] [address] [place], [place] [id number] * Aldolase (06/17/2025 10:50 AM EDT) [facility] ALDOLASE 4.2 1.2 - 7.6 U/L 06/18/2025 11:54 PM EDT [facility] (ELIZA) Blood Venous blood specimen / Unknown Venipuncture / Unknown 06/17/2025 10:50 AM EDT 06/17/2025 10:51 AM EDT Narrative [facility] ([place]) - 06/18/2025 11:54 PM EDT REFERENCE INTERVAL: Aldolase Access complete set of age- and/or gender-specific reference intervals for this test in the [facility] Test Directory ([place]). Performed By: [facility] [employer] [address] [place] [address] Syrup Mixer: Galen Pereira MD, PhD CLIA Number: [id number] November R Aicha [employer] [employer] [employer] [facility] LAB BLOOD ORDERABLES Final Result Performing Organization Address City/[facility]/ZIP Co de Phone Number [facility] ([place]IZA) [address] [place] [address] * C3 Complement (06/17/2025 10:50 AM EDT) Pathologist [facility] C3 Complement 158 84 - 166 mg/dL 06/17/2025 1:12 PM EDT [facility] Blood Venous blood specimen / Unknown Venipuncture / Unknown 06/17/2025 10:50 AM EDT 06/17/2025 10:51 AM EDT [facility] Final Result Performing Organization Address City/[facility]/ZIP Co de Phone Number [facility] [address] [place] [address] * C4 Complement (06/17/2025 10:50 AM EDT) C4 Complement 29 13 - 36 mg/dL 06/17/2025 1:12 PM EDT [facility] Blood Venous blood specimen / Unknown Venipuncture / Unknown 06/17/2025 10:50 AM EDT 06/17/2025 10:51 AM EDT [facility] Final Result Performing Organization Address [facility] [place] [address] * ANTI NUCLEAR AB (06/17/2025 10:50 AM EDT) CHAIM INTERPRETIVE COMMENT See Note 06/19/2025 8:12 PM EDT [facility] ([facility]) Anti Nuc Ab Screen <1:80 <1:80 06/19/2025 8:12 PM EDT [facility] ([facility]) Blood Venous blood specimen / Unknown Venipuncture / Unknown 06/17/2025 10:50 AM EDT 06/17/2025 10:51 AM EDT Narrative [facility] ([facility]) - 06/19/2025 8:12 PM EDT Antinuclear antibodies [...] not necessarily rule out SARD. Performed By: [facility] [address] [place] [address] Syrup Mixer: Galen Pereira MD, PhD CLIA Number: [id number] November R Aicha [employer] [employer] LAB BLOOD ORDERABLES Final Result Performing Organization Address City/[facility]/ZIP Co de Phone Number [facility] ([facility]AK[facility]) [address] [place] [address] * (ABNORMAL) Thyroid Stimulating Hormone, Plasma (06/17/2025 10:50 AM EDT) Thyroid Stimulating Hormone, Plasma 4.29(H) 0.40 - 4.20 uIU/mL 06/17/2025 12:30 PM EDT [facility] Blood Venous blood specimen / Unknown Venipuncture / Unknown 06/17/2025 10:50 AM EDT 06/17/2025 10:51 AM EDT November R Aicha [facility] BLOOD ORDERABLES Final Result [facility] [address] [place] [address] from Last 3 Months Insurance [facility] MEDICAID Care Teams Chief Diversity Officer Relationship Specialty Start Date End Date Quyen Vincent DO [address] [place] [address] PCP - General 04/09/21
--- OUTSIDE RECORDS SUMMARY | 2025-08-04 14:04 | XMS_ITS | Encounter Summary ---
Author Organization Healthcare Address [address] [id number] Care Team Providers Care Manager Requirements Name Role Phone Quyen Vincent DO Primary Care Provider [phone] Encounter Details Date Type Department Care Team (Late st Contact Info) Description 07/17/2025 Orders Only External Location [address] [place] [address] Provider, External Social History Tobacco Use Types Packs/Day Years [...] as of this encounter Functional Status * Calculated C-SSRS Risk Score (Lifetime/Recent) Answer Date of Assessment Author No Risk Indicated 07/17/2025 7:14 PM EDT Tano Weiss R * Question Answer Date of Assessment Author 1. Wish to be (Past 1 Month) No 025 7:14 PM EDT Mya Weiss 2. Non-Specific Active Suici jose Thoughts (Past 1 Month) No 07/17/2025 7:14 PM EDT Mya Weiss 6. Suicidal Behavior (Lifetime) No 7:14 PM EDT Mya Weiss documented as of this encounter Plan of Treatment Upcoming Encounters Date Type Department Care Team (Late st Contact Info) Description 09/03/2025 11:30 AM EDT Office Visit [facility] [place] [address] [facility], [address] [place] [address] Ronal Clemens MD [address] [place] [address] 09/23/2025 11:00 AM EDT Office Visit [facility] Medicine Specialties [address], [address] [place] [address] Kerline Holcomb APRN [address] [place] [address] 10/14/2025 4:00 PM EST Office Visit [facility] [address], [address] [place] [address] Martha Rodrigues MBBS [address] [place] [address] documented as of this encounter Procedures Procedure Name Priority Date/Time Associated Diagnosis Comments POC ULTRASOUND 07/17/2025 documented in this encounter Results * POC Imaging (07/17/2025) Anatomical Region Laterality Modality Pelvis Other 07/17/2025 us External Provider IMG POINT OF CARE ULTRASOUND F inal Result documented in this encounter Visit Diagnoses Not on filedocumented [...] as of this encounter Care Teams Manager Requirements Relationship Specialty Start Date End Date Quyen Vincent DO [address] [place] [address] PCP - General 04/09/21 documented as of this encounter
--- OUTSIDE RECORDS SUMMARY | 2025-08-04 14:04 | XMS_ITS | Encounter Summary ---
Author Organization Healthcare Address [address] [place] [address] Care Team Providers Care Outreach Nurse Name Role Phone Quyen Vincent DO Primary Care Provider [phone] Encounter Details Date Type Department Care Team (Late st Contact Info) Description 05/05/2025 Telephone [facility] Special[facility] [address], [address] [place] [address] None, None [address] [place] [address] Social History Tobacco Use Types [...] him back to schedule. Best contact number: [phone] (mobile) Optimal time of day to reach [...] will receive notification of the communication/outcome via My e[employer] App. documented in this encounter Plan of Treatment Upcoming Encounters Date Type Department Care Team (Late st Contact Info) Description 09/03/2025 11:30 AM EDT Office Visit [facility] [place] [address] [facility], [address] [place] [address] Ronal Clemens MD [address] [place] [address] 09/23/2025 11:00 AM EDT Office Visit [facility] Medicine Specialties [address], [address] [place] [address] Kerline Holcomb APRN [address] [place] [address] 10/14/2025 4:00 PM EST Office Visit [facility] [address], 1[address] [place] [address] Martha Rodrigues MBBS [address] [place] [address] documented as of this encounter Visit Diagnoses Not on filedocumented in this encounter Care Teams Outreach Nurse Relationship Specialty Start Date End Date Quyen Vincent DO [address] [place], [place] [address] [place] [address] PCP - General 04/09/21 documented as of this encounter
--- OUTSIDE RECORDS SUMMARY | 2025-08-04 14:04 | XMS_ITS | Encounter Summary ---
Author Organization Healthcare Address [address] [id number] Care Team Providers Care Pad Extraction Tender Name Role Phone Quyen Vincent DO Primary Care Provider [phone] Encounter Details Date Type Department Care Team (Latest Contact Info) Description 07/17/2025 Travel Social History Tobacco Use Types Packs/Day [...] Description 09/03/2025 11:30 AM EDT Office Visit [facility] [place] [address] [facility], [address] [place] [address] Ronal Clemens MD [address] [place] [address] 09/23/2025 11:00 AM EDT Office Visit [facility] Medicine Specialties [address], [address] [place] [address] Kerline Holcomb APRN [address] [place] [address] 10/14/2025 4:00 PM EST Office Visit [facility] [address], 1st [place] [address] Martha Rodrigues MBBS [address] [place] [address] documented as of this encounter [...] documented as of this encounter Care Teams Pad Extraction Tender Relationship Specialty Start Date End Date Quyen Vincent DO [address] [place] [address] PCP - General 04/09/21 documented as of this encounter
--- OUTSIDE RECORDS SUMMARY | 2025-08-04 14:04 | XMS_ITS | Encounter Summary ---
Author Organization Healthcare Address [address] [id number] Care Team Providers Care Lock Assembler Name Role Phone Quyen Vincent DO Primary Care Provider [phone] Encounter Details Date Type Department Care Team (Late st Contact Info) Description 07/22/2025 Telephone Cardiac Imaging [address] [place] [address] Reji Reeves [address] [id number] Social History Tobacco Use Types Packs/Day Years [...] encounter Miscellaneous Notes * Telephone Encounter - Reji Reeves - 07/22/2025 3:12 PM EDT Contacted patient regarding holter monitor order and placement options. The Heart Station at the [facility] is located at [address] [facility] [address]. Monitor placement is provided on a walk in basis Monday thru Monday 8a-4p (closed holidays). Parking is located at [address] documented in this encounter Plan of Treatment Upcoming Encounters Date Type Department Care Team (Late st Contact Info) Description 09/03/2025 11:30 AM EDT Office Visit [facility] [place] [address] [facility], [address] [place] [address] Ronal Clemens MD [address] [place] [address] 09/23/2025 11:00 AM EDT Office Visit [facility] Medicine Specialties [address], 2[address] [place] [address] Kerline Holcomb, PHP WEBSITE DEVELOPER [address] [place] [address] 10/14/2025 4:00 PM EST Office Visit [facility] [address], 1[address] [place] [address] Martha Rodrigues MBBS [address] [place] [address] documented as of this encounter [...] documented as of this encounter Care Teams Lock Assembler Relationship Specialty Start Date End Date Quyen Vincent DO [address] [place], [place] [address] [place] [address] PCP - General 04/09/21 documented as of this encounter
--- OUTSIDE RECORDS SUMMARY | 2025-08-04 14:04 | XMS_ITS | Encounter Summary ---
Author Organization Healthcare Address [address] [place] [address] Care Team Providers Care Pst Manager Name Role Phone Quyen Vincent DO Primary Care Provider [phone] Encounter Details Date Type Department Care Team [...] Description 09/03/2025 11:30 AM EDT Office Visit [facility] [place] [address] [facility], [address] [place] [address] Ronal Clemens MD [address] [place] [address] 09/23/2025 11:00 AM EDT Office Visit [facility] Medicine Specialties [address], 2[address] [place] [address] Kerline Holcomb R, CENTRAL STERILE SUPPLY TECHNICIAN [address] [place] [address] 10/14/2025 4:00 PM EST Office Visit [facility] [address], [address] [place] [address] Martha Rodrigues MBBS [address] [place] [address] documented as of this encounter Visit Diagnoses Not on filedocumented in this encounter Care Teams Pst Manager Relationship Specialty Start Date End Date Quyen Vincent DO [address] [place] [address] PCP - General 04/09/21 documented as of this encounter
--- OUTSIDE RECORDS SUMMARY | 2025-08-04 14:04 | XMS_ITS | Encounter Summary ---
Author Organization Healthcare Address [address] [id number] Care Team Providers Care Senior Estimator Name Role Phone Quyen Vincent DO Primary Care Provider [phone] Encounter Details Date Type Department Care Team (Late st Contact Info) Description 07/21/2025 Telephone [facility] [place] [address] [facility], [address] [place] [address] Ronal Clemens MD [address] [place] [address] Social History Tobacco Use Types Packs/Day Years [...] encounter Miscellaneous Notes * Telephone Encounter - Fatimah Marshall - 07/21/2025 4:24 PM EDT Clinical Concern/Question Reason for Call: patient calling stated he has had a couple more spells and would like call back tosee if he can be seen before august contact number: Other: [phone] Optimal time of day to reach caller: ANYTIME Additional comments/information from caller: None Note: Please do not reply to this message. Follow-up communication and further actions as a result of this message need to be communicated with the patient directly, if the patient is not active onMyChart. If the patient is active on MyChart, they will receive notification of the communication/outcome via [employer]ference[employer]. documented in this encounter Plan of Treatment Upcoming Encounters Date Type Department Care Team (Late st Contact Info) Description 09/03/2025 11:30 AM EDT Office Visit [facility] [place] [address] [facility], [address] [place] [address] Ronal Clemens MD [address] [place] [address] 09/23/2025 11:00 AM EDT Office Visit [facility] Medicine Specialties [address], 2nd [place] [address] Kerline Holcomb R, MATH COACH [address] [place] [address] 10/14/2025 4:00 PM EST Office Visit [facility] [address], [address] [place] [address] Martha Rodrigues MBBS [address] [place] [address] documented as of this encounter Visit Diagnoses [...] documented as of this encounter Care Teams Senior Estimator Relationship Specialty Start Date End Date Quyen Vincent DO [address] [place] [address] PCP - General 04/09/21 documented as of this encounter
[2025-08-04 14:17] LABS: Microscopic, Urine URINE MICROSCOPIC (MICROSCOPIC)
[2025-08-04 16:42] LABS: Albumin Level 4.3 g/dl (3.5-5.0); Anion Gap 13.8 mEq/L (5-15); Blood Urea Nitrogen 31 mg/dl (9-20); Calcium 9.0 mg/dl (8.4-10.2); Carbon Dioxide 26 mmol/L (22.0-30.0); Chloride 102 mmol/L (98-107); Creatinine,Serum 1.30 mg/dl (0.66-1.25); Estimated Glomerular Filt Rate 58 ml/min (>60); GFR (African American) 70 ML/MIN (>60); Glucose 108 mg/dl (74-100); Phosphorous 3.2 mg/dl (2.5-4.5); Potassium 4.8 mmoL/L (3.5-5.1); Sodium 137 mmol/L (136-145)
[2025-08-04 18:50] LABS: Bilirubin,Urine Negative (Negative); Color,Urine YELLOW (Yellow); Glucose,Urine (UA) 2+ (Negative); Ketones,Urine Negative (Negative); Leukocyte Esterase,Urine Negative (Negative); PH,Urine 6.0 (5.0-8.5); Protein,Urine Negative (Negative); Specific Gravity, Urine 1.025 (1.005-1.030); Urobilinogen,Urine 0.2 EU/dl (0.2)
[2025-08-04 20:28] LABS: Bacteria,Urine 1+ /lpf; Hyaline Casts,Urine OCC #/lpf (0); RBC,Urine Occasional #/hpf (0-3)
== END 2025-08-04 23:59 | disposition home or self-care (01) ==
LOC: LAB 14:00
PROVIDERS: PCP Family Medicine; Visit Provider Internal Medicine Nephrology
DX: N17.9 Acute kidney failure, unspecified (principal); E11.9 Type 2 diabetes mellitus without complications
CPT/HCPCS: 36415; 80069; 81001; 82043; 82570

== ENCOUNTER 2025-08-20 08:49 | Outpatient (CLI) | payer MEDICAID, SELFPAY ==
--- OUTSIDE RECORDS SUMMARY | 2025-06-17 09:30 | XMS_ITS | Encounter Summary ---
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 06/17/2025 10:50 AM EDT 06/17/2025 10:51 AM EDT November [facility] [employer] LAB BLOOD ORDERABLES Final Result Performing Organization Address [facility]/ZIP Co de Phone Number [facility] [address] [place] [address] * Thyroid Peroxidase Antibody (06/17/2025 10:50 AM EDT) Thyroid Peroxidase Antibody <5 <=8 IU/mL 06/17/2025 2:18 PM EDT [facility] Blood Venous blood specimen / Unknown Venipuncture / Unknown 06/17/2025 10:50 AM EDT 06/17/2025 10:51 AM EDT [facility] Final Result Performing Organization Address [facility] [place] [address] * Marshall (OMAR) Antibody, IgG (06/17/2025 10:50 AM EDT) Marshall (OMAR) Antibody, IgG 1 0 - 40 AU/mL 06/19/2025 3:00 PM EDT [facility] ([facility]) Serum 06/17/2025 10:5 0 AM EDT 06/17/2025 10:51 AM EDT Narrative [facility] ([employer]) - 06/19/2025 3:00 PM EDT INTERPRETIVE INFORMATION: Marshall (OMAR) Antibody, IgG 29 AU/mL or Less ............. Negative 30 - 40 AU/mL ................ Equivocal 41 AU/mL or Greater .......... Positive Marshall antibody is highly specific (greater than 90 percent) for systemic lupus erythematosus (SLE) but only occurs in 30-35 percent of SLE cases. The presence of antibodies to Marshall has variable associations with SLE clinical manifestations. Performed By: [facility] [address] [place] [address] Estate Attorney: Galen Pereira MD, PhD CLIA Number: [id number] november Aicha [employer]ELED POTATO INSPECTOR LAB REF LAB BLOOD AND FLUID ORD Final Result [email or web address] (ELIZA) [address] [place] [address] * (ABNORMAL) CBC and Differential (06/17/2025 10:50 AM EDT) [facility] WBC Count 7.54 3.70 - 10.30 10*3/uL LAB HEMATOLOGY METHOD 06/17/2025 11:47 AM EDT [facility] RBC Count 4.83 4.60 - 6.10 10*6/uL LAB HEMATOLOGY METHOD 06/17/2025 11:47 AM EDT [facility] HGB 13.7 13.7 - 17.5 g/dL LAB HEMATOLOGY METHOD 06/17/2025 11:47 AM EDT [facility] HCT 43.1 40.0 - 51.0 % LAB HEMATOLOGY METHOD 06/17/2025 11:47 AM EDT [facility] Platelet Count 198 155 - 369 10*3/uL LAB HEMATOLOGY METHOD 06/17/2025 11:47 AM EDT [facility] MCV 89 79 - 98 fL LAB HEMATOLOGY METHOD 06/17/2025 11:47 AM EDT [facility] MCH 28.4 26.0 - 32.0 pg LAB HEMATOLOGY METHOD 06/17/2025 11:47 AM EDT [facility] MCHC 31.8 30.7 - 35.5 g/dL LAB HEMATOLOGY METHOD 06/17/2025 11:47 AM EDT [facility] RDW 14.2 11.5 - 14.5 % LAB HEMATOLOGY METHOD 06/17/2025 11:47 AM EDT [facility] MPV 10.5 8.8 - 12.5 fL LAB HEMATOLOGY METHOD 06/17/2025 11:47 AM EDT [facility] nRBC 0.0 <=0.0 per 100 WBCs LAB HEMATOLOGY METHOD 06/17/2025 11:47 AM EDT [facility] Differential Type Automated LAB HEMATOLOGY METHOD 06/17/2025 11:47 AM EDT [facility] Neutrophils % 80 % LAB HEMATOLOGY METHOD 06/17/2025 11:47 AM EDT [facility] Lymphocytes % 8 % LAB HEMATOLOGY METHOD 06/17/2025 11:47 AM EDT [facility] Monocytes % 8 % LAB HEMATOLOGY METHOD 06/17/2025 11:47 AM EDT [facility] Eosinophils % 2 % LAB HEMATOLOGY METHOD 06/17/2025 11:47 AM EDT [facility] Basophils % 1 % LAB HEMATOLOGY METHOD 06/17/2025 11:47 AM EDT [facility] Immature Granulocytes % 1 % LAB HEMATOLOGY METHOD 06/17/2025 11:47 AM EDT [facility] Neutrophils Absolute 6.05 1.60 - 6.10 10*3/uL LAB HEMATOLOGY METHOD 06/17/2025 11:47 AM EDT [facility] Lymphocytes Absolute 0.59(L) 1.20 - 3.90 10*3/uL LAB HEMATOLOGY METHOD 06/17/2025 11:47 AM EDT [facility] Monocytes Absolute 0.63 0.30 - 0.90 10*3/uL LAB HEMATOLOGY METHOD 06/17/2025 11:47 AM EDT [facility] Eosinophils Absolute 0.18 0.00 - 0.50 10*3/uL LAB HEMATOLOGY METHOD 06/17/2025 11:47 AM EDT [facility] Basophils Absolute 0.04 0.00 - 0.10 10*3/uL LAB HEMATOLOGY METHOD 06/17/2025 11:47 AM EDT [facility] Immature Granulocytes Absolute 0.05 0.00 - 0.06 10*3/uL LAB HEMATOLOGY METHOD 06/17/2025 11:47 AM EDT [facility] Blood Venous blood specimen / Unknown Venipuncture / Unknown 06/17/2025 10:50 AM EDT 06/17/2025 10:51 AM EDT [facility] - 06/17/2025 11:47 AM EDT Therapeutic decision making should be based on absolute values, rather than percentages. November R Aicha GORDON LAB BLOOD ORDERABLES Final Result Performing Organization Address City/[facility]/[place] [address] * C4 Complement (06/17/2025 10:50 AM EDT) C4 Complement 29 13 - 36 mg/dL 06/17/2025 1:12 PM EDT [facility] Blood Venous blood specimen / Unknown Venipuncture / Unknown 06/17/2025 10:50 AM EDT 06/17/2025 10:51 AM EDT November Aicha BELLN LAB BLOOD ORDERABLES Final Result Performing Organization Address [facility] [place] [address] * C3 Complement (06/17/2025 10:50 AM EDT) C3 Complement 158 84 - 166 mg/dL 06/17/2025 1:12 PM EDT [facility] Blood Venous blood specimen / Unknown Venipuncture / Unknown 06/17/2025 10:50 AM EDT 06/17/2025 10:51 AM EDT November Aicha GORDON LAB BLOOD ORDERABLES Final Result Performing Organization Address City/[facility]/[place] [address] * Double-Stranded DNA (dsDNA) Antibody, IgG by IFA (06/17/2025 10:50 AM EDT) Double-Strande d DNA (dsDNA) Ab IgG IFA <1:10 <1:10 06/19/2025 9:48 AM EDT [facility] ([employer]) Blood Venous blood specimen / Unknown Venipuncture / Unknown 06/17/2025 10:50 AM EDT 06/17/2025 10:51 AM EDT Narrative [facility] ([employer]) - 06/19/2025 9:48 AM EDT INTERPRETIVE INFORMATION: Double-Stranded DNA (dsDNA) Antibody, IgG by IFA (using Crithidia luciliae) Positivity for anti-double stranded DNA (anti-dsDNA) IgG antibody is a diagnostic criterion of systemic lupus erythematosus (SLE). The presence of the anti-dsDNA IgG antibody is identified by IFA titer (Crithidia luciliae indirect fluorescent test [LISSETH]). LISSETH is highly specific for SLE with a sensitivity of 50-60 percent. Some patients with early or inactive SLE may be positive for anti-dsDNA IgG by EDWARD but negative by LISSETH. If the LISSETH result is negative but the patient has a positive EDWARD and clinical suspicion remains, consider antinuclear antibody (CHAIM) testing by IFA. Additional information and recommendations for testing may be found at [email or web address]. Performed By: [facility] [address] [place] [address] Estate Attorney: Galen Pereira MD, PhD CLIA Number: [id number] november Aicha [facility] BLOOD ORDERABLES Final Result [facility] ([employer]) [address] [place] [address] * ANTI NUCLEAR AB (06/17/2025 10:50 AM EDT) CHAIM INTERPRETIVE COMMENT See Note 06/19/2025 8:12 PM EDT [facility] ([employer]) Anti Nuc Ab Screen <1:80 <1:80 06/19/2025 8:12 PM EDT [facility] ([employer]) Blood Venous blood specimen / Unknown Venipuncture / Unknown 06/17/2025 10:50 AM EDT 06/17/2025 10:51 AM EDT Narrative [facility] ([employer]) - 06/19/2025 8:12 PM EDT Antinuclear antibodies by IFA negative for homogeneous, speckled, nucleolar, centromere, and nuclear dots patterns. Cytoplasmic antibodies by IFA negative for reticular/AMA, discrete/GW body-like, polar/golgi-like, rods and rings, and cytoplasmic speckled patterns. INTERPRETIVE INFORMATION: CHAIM Interpretive Comment Presence of antinuclear antibodies (CHAIM) is a hallmark feature of systemic autoimmune rheumatic diseases (SARD). However, CHAIM lacks diagnostic specificity and is associated with a variety of diseases (cancers, autoimmune, infectious, and inflammatory conditions) and may also occur in healthy individuals in varying prevalence. The lack of diagnostic specificity requires confirmation of positive CHAIM by more specific serologic tests. CHAIM (nuclear reactivity) positive patterns reported include centromere, homogeneous, nuclear dots, nucleolar, or speckled. CHAIM (cytoplasmic reactivity) positive patterns reported include reticular/AMA, discrete/GW body-like, polar/golgi-like, cytoplasmic speckled or rods and rings. All positive patterns are reported to endpoint titers (1:2560). Reported patterns may help guide differential diagnosis, although they may not be specific for individual antibodies or diseases. Mitotic staining patterns not reported. Negative results do not necessarily rule out SARD. Performed By: [facility] [address] [place] [address] Estate Attorney: Galen Pereira MD, PhD CLIA Number: [id number] [facility] LAB BLOOD ORDERABLES Final Result Performing Organization Address [facility]/State/ZIP Co de Phone Number [facility] [employer] ([facility]) [address] [place] [address] * Aldolase (06/17/2025 10:50 AM EDT) ALDOLASE 4.2 1.2 - 7.6 U/L 06/18/2025 11:54 PM EDT [facility] (ELIZA) Blood Venous blood specimen / Unknown Venipuncture / Unknown 06/17/2025 10:50 AM EDT 06/17/2025 10:51 AM EDT Narrative [facility] ([facility]IZ[facility]) - 06/18/2025 11:54 PM EDT REFERENCE INTERVAL: Aldolase Access complete set of age- and/or gender-specific reference intervals for this test in the [email or web address] Test Directory ([employer]). Performed By: [facility] [address] [place] [address] Estate Attorney: Galen Pereira MD, PhD CLIA Number: [id number] [facility] [employer] LAB BLOOD ORDERABLES Final Result [facility] ([employer]) [address] [place] [address] * Creatine Kinase (CK), Total (06/17/2025 10:50 AM EDT) Creatine Kinase, Plasma 180 49 - 320 U/L 06/17/2025 12:30 PM EDT [facility] Blood Venous blood specimen / Unknown Venipuncture / Unknown 06/17/2025 10:50 AM EDT 06/17/2025 10:51 AM EDT november Aicha [employer] P[employer]AT[employer] INSPECTOR LAB BLOOD ORDERABLES Final Result [facility] [address] [place] [address] * Myositis Antibody Panel (SO) (06/17/2025 10:50 AM EDT) Marshall/SUPERINTENDENT COMPRESSOR STATIONS (OMAR) Ab, IgG 2 0 - 19 Units 06/23/2025 7:22 PM EDT [facility] ([employer]) SSA-52 (RO52) (OMAR) Antibody, IgG 2 0 - 40 AU/mL 06/23/2025 7:22 PM EDT [facility] ([employer]) Treasure-1 (Histidyl-tRNA Synthetase) Ab, IgG 1 0 - 40 AU/mL 06/23/2025 7:22 PM EDT [facility] ([employer]) PM/Scl 100 Antibody, IgG Negative Negative 06/23/2025 7:22 PM EDT [facility] ([employer]) OK-2 (NUCLEAR HELICASE PROTEIN) ANTIBODY Negative Negative 06/23/2025 7:22 PM EDT [facility] ([employer]) PL-7 (THREONYL-TRNA SYNTHETASE) ANTIBODY Negative Negative 06/23/2025 7:22 PM EDT [facility] ([employer]) PL-12 (ALANYL-TRNA SYNTHETASE) ANTIBODY Negative Negative 06/23/2025 7:22 PM EDT [facility] ([employer]) P155/140 ANTIBODY Negative Negative 06/23/2025 7:22 PM EDT [facility] ([facility]) EJ (GLYCYL-TRNA SYNTHETASE) ANTIBODY Negative Negative 06/23/2025 7:22 PM EDT [facility] ([employer]) KU ANTIBODY Negative Negative 06/23/2025 7:22 PM EDT [facility] ([employer]) SRP (SIGNAL RECOGNITION PARTICLE) AB Negative Negative 06/23/2025 7:22 PM EDT [facility] ([employer]) OJ (ISOLEUCYL-TRNA SYNTHETASE) ANTIBODY Negative Negative 06/23/2025 7:22 PM EDT [facility] ([employer]) SSA-60 (RO60) (OMAR) Antibody, IgG 0 0 - 40 AU/mL 06/23/2025 7:22 PM EDT [facility] ([employer]) Fibrillarin (U3 SUPERINTENDENT COMPRESSOR STATIONS) Ab, IgG Negative Negative 06/23/2025 7:22 PM EDT [facility] ([employer]) MYOSITIS PANEL INTERPRETIVE DATA See Note 06/23/2025 7:22 PM EDT [facility] ([employer]) SAE1 (SUMO ACTIVATING ENZYME) AB Negative Negative 06/23/2025 7:22 PM EDT [facility] ([employer]) MDA5 (CADM-140) AB Negative Negative 06/23/2025 7:22 PM EDT [facility] ([facility]) NXP2 (NUCLEAR MATRIX PROTEIN-2) AB Negative Negative 06/23/2025 7:22 PM EDT [facility] ([employer]) TIF-1 GAMMA (155 KDA) AB Negative Negative 06/23/2025 7:22 PM EDT [facility] ([employer]) Anti Nuc Ab Screen <1:80 <1:80 06/23/2025 7:22 PM EDT [facility] ([employer]) CHAIM INTERPRETIVE COMMENT See Note 06/23/2025 7:22 PM EDT [facility] ([facility]) Bunch (tyrosyl-tRNA synthetase) Ab Negative Negative 06/23/2025 7:22 PM EDT [facility] ([employer]) Ks (asparaginyl-tRN A synthetase) Ab Negative Negative 06/23/2025 7:22 PM EDT [facility] ([employer]) Zo (phenylalanyl-tR NA synthetase) Ab Negative Negative 06/23/2025 7:22 PM EDT [facility] ([employer]) HMGCR Antibody Screen Negative Negative 06/23/2025 7:22 PM EDT [facility] ([facility]) Blood Venous blood specimen / Unknown Venipuncture / Unknown 06/17/2025 10:50 AM EDT 06/17/2025 10:51 AM EDT [facility] (ELIZA) - 06/23/2025 7:22 PM EDT INTERPRETIVE INFORMATION: Extended Myositis Panel 2 If present, myositis-specific antibodies (MSAs) are specific for myositis, and may be useful in establishing diagnosis as well as prognosis. MSAs are generally regarded as mutually exclusive with rare exceptions; the occurrence of two or more MSAs should be carefully evaluated in the context of patient's clinical presentation. Myositis-associated antibodies (Eusebia) may be found in patients with CTD including overlap syndromes, and are generally not specific for myositis. The following table will help in identifying the association of any antibodies found as either MSAs or Eusebia. Antibody Specificity . . . . . . . . . . . . MSAs . . . . Eusebia SSA 52 (Ro) (OMAR) Antibody IgG . . . . . . . . . . . . . X SSA 60 (Ro) (OMAR) Antibody IgG . . . . . . . . . . . . . X Marshall/SUPERINTENDENT COMPRESSOR STATIONS (OMAR) Ab, IgG . . . . . . . . . . . . . . . . X Treasure-1 (histidyl-tRNA synthetase) Ab, IgG . . X PL-12 (alanyl-tRNA synthetase) Antibody . . X PL-7 (threonyl-tRNA synthetase) Antibody . . X EJ (glycyl-tRNA synthetase) Antibody . . . . X OJ (isoleucyl-tRNA synthetase) Antibody . . X SRP (Signal Recognition Particle) Ab . . . . X Ku Antibody . . . . . . . . . . . . . . . . . . . . . . X PM/SCL 100 Antibody, IgG . . . . . . . . . . . . . . . . X Fibrillarin (U3 SUPERINTENDENT COMPRESSOR STATIONS) Ab, IgG . . . . . . . . . . . . . . X Mi-2 (nuclear helicase protein) Antibody . . X P155/140 Antibody . . . . . . . . . . . . . X TIF-1 gamma (155 kDa) Ab . . . . . . . . . . X SAE1 (SUMO activating enzyme) Ab . . . . . . X MDA5 (CADM-140) Ab . . . . . . . . . . . . X NXP2 (Nuclear matrix proten-2)Ab . . . . . . X Bunch (tyrosyl-tRNA synthetase) Ab. . . . . . . X Ks (asparaginyl-tRNA synthetase) Ab . . . . X Zo (phenylalanyl-tRNA synthetase) Ab . . . . X HMGCR (4-Vkyyvgf-2-Methylglutaryl Coenzyme A Reductase) . . . . . . . . X This test was developed and its performance characteristics determined by [facility]. It has not been cleared or approved by the US Food and Drug Administration. This test was performed in a CLIA certified laboratory and is intended for clinical purposes. INTERPRETIVE INFORMATION: Treasure-1 Antibody, IgG 29 AU/mL or less.........Negative 30-40 AU/mL..............Equivocal 41 AU/mL or greater......Positive Presence of Treasure-1 (antihistidyl transfer RNA [t-RNA] synthetase) antibody is associated with polymyositis and may also be seen in patients with dermatomyositis. Treasure-1 antibody is associated with pulmonary involvement (interstitial lung disease), Raynaud phenomenon, arthritis, and flight line mechanic's hands (implicated in antisynthetase syndrome). INTERPRETIVE INFORMATION: Marshall/SUPERINTENDENT COMPRESSOR STATIONS (OMAR) Antibody, IgG 19 Units or Less ............. Negative 20 to 39 Units ............... Weak Positive 40 to 80 Units ............... Moderate Positive 81 Units or greater .......... Strong Positive Marshall/SUPERINTENDENT COMPRESSOR STATIONS antibodies are frequently seen in patients with mixed connective tissue disease (MCTD) and are also associated with other systemic autoimmune rheumatic diseases (SARDs) such as systemic lupus erythematosus (SLE), systemic sclerosis, and myositis. Antibodies targeting the Marshall/SUPERINTENDENT COMPRESSOR STATIONS antigenic complex also recognize Marshall antigens, therefore, the Marshall antibody response must be considered when interpreting these results. INTERPRETIVE INFORMATION: PM/Scl-100 Antibody, IgG by Immunoblot The presence of PM/Scl-100 IgG antibody along with a positive CHAIM IFA nucleolar pattern is associated with connective tissue diseases such as polymyositis (PM), dermatomyositis (DM), systemic sclerosis (SSc), and polymyositis/systemic sclerosis overlap syndrome. The clinical relevance of PM/Scl-100 IgG antibody with a negative CHAIM IFA nucleolar pattern is unknown. PM/Scl-100 is the main target epitope of the PM/Scl complex, although antibodies to other targets not detected by this assay may occur. This test was developed and its performance characteristics determined by [facility]. It has not been cleared or approved by the [place] Food and Drug Administration. This test was performed in a CLIA certified laboratory and is intended for clinical purposes. INTERPRETIVE INFORMATION: SSA-52 (Ro52) (OMAR) Antibody, IgG 29 AU/mL or Less ............. Negative 30 - 40 AU/mL ................ Equivocal 41 AU/mL or Greater .......... Positive SSA-52 (Ro52) and/or SSA-60 (Ro60) antibodies are associated with a diagnosis of Sjogren syndrome, systemic lupus erythematosus (SLE), and systemic sclerosis. SSA-52 antibody overlaps significantly with the major SSc-related antibodies. SSA-52 (Ro52) antibody occurs frequently in patients with inflammatory myopathies, often in the presence of interstitial lung disease. REFERENCE INTERVAL: SSA-60 (Ro60) (OMAR) Antibody, IgG 29 AU/mL or Less ............. Negative 30 - 40 AU/mL ................ Equivocal 41 AU/mL or Greater .......... Positive Interpretive Information: Fibrillarin (U3 SUPERINTENDENT COMPRESSOR STATIONS) Antibody, IgG The presence of fibrillarin (U3-SUPERINTENDENT COMPRESSOR STATIONS) IgG antibodies in association with an CHAIM IFA nucleolar pattern is suggestive of systemic sclerosis (SSc). In SSc, these antibodies are associated with distinct clinical features, such as younger age at disease onset, frequent internal organ involvement (pulmonary hypertension, myositis and renal disease). Fibrillarin antibodies are detected more frequently in patients with SSc compared to other ethnic groups. Strong correlation with CHAIM IFA results is recommended. In a multi-ethnic cohort of SSc patients (n=98), U3-SUPERINTENDENT COMPRESSOR STATIONS antibodies detected by immunoblot had an agreement of 98.9 percent with the gold standard immunoprecipitation (IP) assay. Approximately 71 percent (5/7) of the borderline U3-SUPERINTENDENT COMPRESSOR STATIONS results with CHAIM nucleolar pattern in this cohort were IP negative. This test was developed and its performance characteristics determined by [facility]. It has not been cleared or approved by the [place] Food and Drug Administration. This test was performed in a CLIA certified laboratory and is intended for clinical purposes. Antinuclear antibodies by IFA negative for homogeneous, speckled, nucleolar, centromere, and nuclear dots patterns. Cytoplasmic antibodies by IFA negative for reticular/AMA, discrete/GW body-like, polar/golgi-like, rods and rings, and cytoplasmic speckled patterns. INTERPRETIVE INFORMATION: CHAIM Interpretive Comment Presence of antinuclear antibodies (CHAIM) is a hallmark feature of systemic autoimmune rheumatic diseases (SARD). However, CHAIM lacks diagnostic specificity and is associated with a variety of diseases (cancers, autoimmune, infectious, and inflammatory conditions) and may also occur in healthy individuals in varying prevalence. The lack of diagnostic specificity requires confirmation of positive CHAIM by more specific serologic tests. CHAIM (nuclear reactivity) positive patterns reported include centromere, homogeneous, nuclear dots, nucleolar, or speckled. CHAIM (cytoplasmic reactivity) positive patterns reported include reticular/AMA, discrete/GW body-like, polar/golgi-like, cytoplasmic speckled or rods and rings. All positive patterns are reported to endpoint titers (1:2560). Reported patterns may help guide differential diagnosis, although they may not be specific for individual antibodies or diseases. Mitotic staining patterns not reported. Negative results do not necessarily rule out SARD. Clinical Interpretation: Bunch antibody negative by line immunoassay. No band corresponding to 65 kDa observed by immunoprecipitation. Clinical Interpretation: Ks antibody negative by line immunoassay. No band corresponding to 65 kDa observed by immunoprecipitation. Clinical Interpretation: Zo antibody negative by line immunoassay. No bands corresponding to 68 and 58 kDa observed by immunoprecipitation. HMGCR Antibody, IgG is Negative. No further testing will be performed. Performed By: [facility] [address] [place] [id number] Estate Attorney: Galen Pereira MD, PhD CLIA Number: [id number] november Aicha PEELED POTATO INSPECTOR LAB BLOOD ORDERABLES Final Result [facility]) [address] [place] [address] documented in this encounter Visit Diagnoses Diagnosis Muscle weakness- Primary Muscle weakness (generalized) Frequent falls Low back pain, unspecified back pain laterality, unspecified chronicity, unspecified whether sciatica present Foot drop, left Other acquired deformity of ankle and foot Low back pain, unspecified back pain laterality, unspecified chronicity, unspecified whether sciatica present documented in this encounter Additional Health Concerns Assessment Noted Time PHQ-9 Depression Total Score: 9 06/17/20 25 9:30 AM EDT A fall risk assessment has been complete d for the patient 06/17/2025 9:30 AM EDT A Body Mass Index follow-up plan has been documented for the patient 06/17/2025 10:36 AM EDT documented as of this encounter Care Teams Doctor Of Osteopathy Relationship Specialty Start Date End Date Quyen Vincent DO [address] [place] [address] PCP - General 04/09/21 documented as of this encounter
--- OUTSIDE RECORDS SUMMARY | 2025-06-30 08:30 | XMS_ITS | Encounter Summary ---
Author Organization [facility] Address [address] [place] [address] Care Team Providers Care Flour Distributor Name Role Phone Quyen Vincent DO Primary Care Provider [phone] Reason for Visit * Reason Comments Diabetes Type II Diabetes Encounter Details Date Type Department Care Team (Late st Contact Info) Description 06/30/2025 8:30 AM EDT Office Visit [facility] [address] [phone] Jennifer Villanueva PA [address] [phone] Type 2 diabetes mellitus with hyperglycemia, with [...] more drinks on one occasion? 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 He has continued to do well with the pump and doing well with entering food boluses. Changes to pump at last visit have worked well. Saw Manager Embalmer Funeral Director in May and had a slightly high [...] program. Electronically signed by Jennifer Villanueva PA-C [facility] Endocrinology [place] 06/30/2025 documented in this encounter Plan of Treatment Upcoming Encounters Date Type Department Care Team (Late st Contact Info) Description 11/03/2025 1:00 PM EST Office Visit [facility] [address] [phone] Jennifer Villanueva PA [address] [phone] Scheduled Procedures Name Priority Associated Diagnoses Date/Ti [...] - 99 mg/dL 06/30/2025 2:51 PM EDT [facility] BUN 26.0(H) 6.0 - 20.0 mg/dL 06/30/2025 2:51 PM EDT [facility] Creatinine 1.86(H) 0.76 - 1.27 mg/dL 06/30/2025 2:51 PM EDT [facility] Sodium 142 136 - 145 mmol/L 06/30/2025 2:51 PM EDT [facility] Potassium 4.1 3.5 - 5.2 mmol/L 06/30/2025 2:51 PM EDT [facility] Chloride 99 98 - 107 mmol/L 06/30/2025 2:51 PM EDT [facility] CO2 27.1 22.0 - 29.0 mmol/L 06/30/2025 2:51 PM EDT [facility] Calcium 9.8 8.6 - 10.5 mg/dL 06/30/2025 2:51 PM [facility] Total Protein 8.0 6.0 - 8.5 g/dL 06/30/2025 2:51 PM T [facility] Albumin 4.6 3.5 - 5.2 g/dL 06/30/2025 2:51 PM [facility] ALT (SGPT) 21 1 - 41 U/L 06/30/2025 2:51 PM T [facility] AST (SGOT) 25 1 - 40 U/L 06/30/2025 2:51 PM [facility] Alkaline Phosphatase 156(H) 39 - 117 U/L 06/30/2025 2:51 PM [facility] Total Bilirubin 0.7 0.0 - 1.2 mg/dL 06/30/2025 2:51 PM [facility] Globulin 3.4 gm/dL 06/30/2025 2:51 PM [facility] A/G Ratio 1.4 g/dL 06/30/2025 2:51 PM [facility] BUN/Creatinine Ratio 14.0 7.0 - 25.0 06/30/2025 2:51 PM [facility] Anion Gap 15.9(H) 5.0 - 15.0 mmol/L 06/30/2025 2:51 PM [facility] eGFR 42.5(L) >60.0 mL/min/1.7 3 06/30/2025 2:51 PM [facility] Blood Structure of left upper limb / Unknown Venipuncture / Unknown 06/30/2025 9:32 AM EDT 06/30/2025 9:32 AM T [facility] - 06/30/2025 2:51 PM EDT GFR [...] City/[facility]/ZIP Co de Phone Number [facility]
[address] [place] [address], [place] [phone] * T4, Free (06/30/2025 9:32 AM EDT) Free T4 1.60 0.92 - 1.68 ng/dL 06/30/2025 2:51 PM EDT [facility] Blood Structure of left upper limb / Unknown Venipuncture / Unknown 06/30/2025 9:32 AM EDT 06/30/2025 9:32 AM EDT Jennifer MANCINI LAB BLOOD ORDERABLES Final Resu lt Performing Organization Address [facility] Co de Phone Number [facility]
[address] [place] [address], [place] [phone] * (ABNORMAL) TSH (06/30/2025 9:32 AM EDT) TSH 5.060(H) 0.270 - 4.200 uIU/mL 06/30/2025 2:51 PM EDT [facility] Blood Structure of left upper limb / Unknown Venipuncture / Unknown 06/30/2025 9:32 AM EDT 06/30/2025 9:32 AM EDT Jennifer MANCINI LAB BLOOD ORDERABLES Final Resu lt Performing Organization Address City/[facility]/ZIP Co de Phone Number [facility]
[address] [place] [address], [place] [phone] * (ABNORMAL) POC Glycosylated Hemoglobin (Hb A1C) (06/30/2025 8:47 AM EDT) Hemoglobin A1C 6.9(A) 4.5 - 5.7 % [facility] Lot Number [id number] [facility] Expiration Date 03/05/2027 [facility] Blood 06/30/2025 8:47 AM EDT Jennifer MANCINI POINT OF CARE TEST ORDERABLES F inal Result [facility]
[address] [place] [address], * POC Glucose, Blood (06/30/2025 8:44 AM [...] study documented in this encounter Care Teams Flour Distributor Relationship Specialty Start Date End Date Quyen Vincent DO [facility] [place] [address] PCP - General Family Medicine 02/17/17 documented as of this encounter
--- OUTSIDE RECORDS SUMMARY | 2025-07-17 15:24 | XMS_ITS | Encounter Summary ---
Author Organization Healthcare Address [address] [place] [address] Care Team Providers Care Motion Picture Projectionist Name Role Phone Quyen Vincent DO Primary Care Provider [phone] Reason for Referral * Consultation (Routine) - Authorized Specialty Diagnoses / Procedures Referred By Contac t Referred To Contact Neurology Diagnoses Syncope, unspecified syncope type Palma Zuluaga MD [address] [place] [phone] Phone: tel: fax: Referral ID Status Reason Start Date Expiration Date Visits Requested Visits Authorized [id number] Authorized Specialty Services Required 07/17/2025 01/16/2027 1 1 Scheduling Instructions syncope * Cardiac Stress Testing (Urgent) - Authorized Specialty Diagnoses / Procedures Referred By Cheri ho Referred To Contact Cardiology Diagnoses Syncope, unspecified syncope type Procedures Adult Holter Monitor > 48hrs - 7 days Palma Zuluaga MD [address] [place] [phone] Phone: tel: fax: Referral ID Status Reason Start Date Expiration Date V isits Requested Visits Authorized [id number] Authorized 07/17/2025 01/16/2027 1 4 Reason for Visit * Reason Comments Fall Encounter Details Date Type Department Care Team (Late st Contact Info) Description 07/17/2025 3:24 PM EDT - 07/17/2025 9:54 PM EDT Emergency [facility] Emergency Department [address] [place] [address] Palma Zuluaga MD [address] [place] [address] Syncope, unspecified syncope type (Primary [...] neurologist. Additionally, we would like you to warehouse order picker the Holter monitor as discussed that [...] MONTHS 08/11/2024 ergocalciferol (Vitamin D-2) 1.25 MG (62131 UT) capsule 02/25/2025 folic acid (Folvite) 1 [...] he has been seeing a neurologist and area safety manager outside of the [place] system for his [...] alert. Psychiatric: Mood and Affect: Mood normal. Aaron Coma Scale Score: 15 ED Course & [...] ED Course as of 07/17/252144 [facility] Jul 17, 20251917 Vitals upon arrival [...] for to further evaluate for cardiogenic syncope, coryll also be discharged with a referral to [...] neurologist. Additionally, we would like you to warehouse order picker the Holter monitor as discussed that [...] tract 01/14/2025 Acute kidney failure, unspecified ([facility] 12/27/2024 Allergic rhinitis 02/09/2017 Allergic rhinitis Anesthesia of skin 02/10/2025 Ankylosing spondylitis of site in spine ([facility]) 03/2018 Anxiety 03/08/2017 Asthma 02/09/2017 Asthma Cellulitis 03/08/2017 Second toe, right Cerebrovascular accident ([facility]) 06/24/2015 Stroke Cervical spondylosis without myelopathy 06/01/2021 Chest pain 05/17/2022 Chronic constipation with overflow 07/19/2017 Overflow diarrhea Chronic kidney disease, unspecified 12/23/2024 Chronic neck and back pain 11/27/2014 Constipation 07/19/2017 Constipation Coronary artery disease due to type 2 diabetes mellitus ([facility]) 11/27/2009 Cough 02/09/2017 Cough Depression 03/08/2017 Diabetes 1.5, 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 Take brilinta, +LOC. documented in this encounter Plan of Treatment Upcoming Encounters Date Type Department Care Team (Late st Contact Info) Description 09/03/2025 11:30 AM EDT Office Visit [facility] [address] [facility], [address] [place] [phone] Ronal Clemens MD [address] [place] [address] 09/23/2025 11:00 AM EDT Office Visit [facility] [address] [place] [address] Kerline Holcomb APRN [address] [place] [address] 10/14/2025 4:00 PM EST Office Visit [facility] [address] [place] [address] Martha Rodrigues MBBS [address] [place], [place] [id number] Scheduled Orders Name Type Priority Associated Diagnoses [...] POCT glucose meter (07/17/2025 5:55 PM EDT) [facility] POCT Glucose 97 74 - 99 mg/dL 07/17/2025 5:57 PM EDT [facility] Comment:Accuracy of a glucos e result [...] Comment 07/17/2025 5:57 PM EDT [facility] Electrophysiology Technician ID Maribel Castelan 025 5:57 PM EDT HEALTHCARE LAB Device ID [id number] 07/17/2025 5:57 PM EDT [facility]ALTH[facility]ARE LAB Specimen Type POC Capillary 07/17/2025 5:57 PM EDT [facility] Blood Capillary blood specimen / Unknown 07/17/2025 5:55 PM EDT 07/17/2025 5:57 PM EDT us Generic Provider Poct LAB POINT OF CARE TEST DOCKED DEVICE UNSOLICITED RESULTS Final Result Performing Organization Address [facility] Co de Phone Number [facility] [address] [place] [address] * (ABNORMAL) Troponin T, High Sensitivity, 2 Hour, Plasma (07/17/2025 5:52 PM EDT) [facility] Troponin T, High Sensitivity, 2 Hour 47(H) <19 ng/L 07/17/2025 6:25 PM EDT [facility] Troponin Delta 6 <10 ng/L 07/17/2025 6:25 PM EDT [facility] Troponin Delta Interpretation Not Significant 07/17/2025 6:25 PM EDT [facility] Comment:Not Significant. No acute change in troponin observed between the baseline and 2 hour samples. Blood Venous blood specimen / Unknown Venipuncture / Unknown 07/17/2025 5:52 PM EDT 07/17/2025 5:56 PM EDT us Palma Zuluaga MD LAB BLOOD ORDERABLES Final Re sult [facility] [address] [place] [address] * XR Chest 1 View (07/17/2025 5:44 [...] ECG Atrial Rate 74 BPM MUSE ECG WY Interval 190 ms MUSE ECG QRSD Interval 88 ms MUSE ECG QT Interval 410 ms MUSE ECG QTC Interval 455 ms MUSE ECG P Yuma 54 degrees MUSE ECG R Yuma -26 degrees MUSE ECG T Wave Yuma 57 degrees MUSE ECG Diagnosis Normal sinus rhythm MUSE ECG Diagnosis Normal ECG MUSE ECG Diagnosis MUSE ECG Diagnosis Confirmed by Mark Orosco ([id number]) on 07/17/2025 4:44:10 PM MUSE ECG 07/17/2025 [...] Total DLP (Dose-Length Product): 1206.95 mGy.cm (accession [id number]), 1206.95 mGy.cm (accession [id number]). Please note: The reported value represents the [...] Multilevel degenerative endplate change and facet arthropathy. Gqka-ow-fqgsmbjo multilevel spondylotic change. Included portions of the lung apices demonstrate scarring and atelectasis without acute focal consolidation. Procedure Note Jay Yao MD - 07/17/2025 CLINICAL INDICATION: fall TECHNIQUE: Axial CT images of the head were obtained without contrastadministration. CT cervical spine without intravenous contrast. Coronal and sagittalreformatted images obtained. Total DLP (Dose-Length Product): 1206.95 mGy.cm (accession [id number]),1206.95 mGy.cm (accession [id number]). Please note: The reported valuerepresents the total [...] subluxation. Multilevel degenerative endplate changeand facet arthropathy. Kltg-vr-jxlpdevq multilevel spondylotic change. Included portions of the [...] Total DLP (Dose-Length Product): 1206.95 mGy.cm (accession [id number]), 1206.95 mGy.cm (accession [id number]). Please note: The reported value represents the [...] Multilevel degenerative endplate change and facet arthropathy. Ofvk-ju-iqyyncoc multilevel spondylotic change. Included portions of the lung apices demonstrate scarring and atelectasis without acute focal consolidation. Procedure Note Jay Yao MD - 07/17/2025 CLINICAL INDICATION: fall TECHNIQUE: Axial CT images of the head were obtained without contrastadministration. CT cervical spine without intravenous contrast. Coronal and sagittalreformatted images obtained. Total DLP (Dose-Length Product): 1206.95 mGy.cm (accession [id number]),1206.95 mGy.cm (accession [id number]). Please note: The reported valuerepresents the total [...] subluxation. Multilevel degenerative endplate changeand facet arthropathy. Jemg-vo-sogmaesc multilevel spondylotic change. Included portions of the [...] on 07/17/2025 4:28 PM Palma Zuluaga MD IM CT PROCEDURES Final Resul t * ED HIV 1/2 Antibody/Antigen Screen w/Reflex to HIV 1/2 Differentiation (07/17/2025 3:42 PM EDT) HIV 1 & 2 Antibody/Antigen Screen Non Reactive Non Reactive 07/17/2025 5:13 PM EDT [facility] Comment:Screening for HIV 1 & 2 antibodies, and P24 antigen is NONREACTIVE. No confirmatory testing is required. Blood Venous blood specimen / Unknown Venipuncture / Unknown 07/17/2025 3:42 PM EDT 07/17/2025 4:26 PM EDT Result Mauro Zuluaga MD LAB BLOOD ORDERABLES Final Re sult Performing Organization Address [facility]/ZIP Co de Phone Number [facility] [address] [place] [address] * Hepatitis C Antibody - ED (07/17/2025 3:42 PM EDT) [facility] Hepatitis C Antibody Negative Negative 07/17/2025 5:13 PM EDT [facility] Blood Venous blood specimen / Unknown Venipuncture / Unknown 07/17/2025 3:42 PM EDT 07/17/2025 4:26 PM EDT us Palma Zuluaga MD LAB BLOOD ORDERABLES Final Re sult Performing Organization Address [facility] Co de Phone Number [facility] [address] [place] [address] * (ABNORMAL) Troponin now and 120 min (07/17/2025 3:42 PM EDT) [facility] Troponin T, High Sensitivity, 0 Hour 53(H) <19 ng/L 07/17/2025 4:12 PM EDT [facility] Blood Venous blood specimen / Unknown Venipuncture / Unknown 07/17/2025 3:42 PM EDT 07/17/2025 3:46 PM EDT Result Mauro Zuluaga MD LAB BLOOD ORDERABLES Final Re sult Performing Organization Address [facility] Co de Phone Number [facility] [address] [place] [address] * (ABNORMAL) BMP (07/17/2025 3:42 PM EDT) [facility] Glucose, Plasma 97 74 - 99 mg/dL 07/17/2025 4:12 PM EDT [facility] BUN, Plasma 41(H) 7 - 21 mg/dL 07/17/2025 4:12 PM EDT [facility] Creatinine, Plasma 2.34(H) 0.70 - 1.20 mg/dL 07/17/2025 4:12 PM EDT [facility] BUN/Creatinine Ratio 18 07/17/2025 4:12 PM EDT [facility] Sodium, Plasma 137 136 - 145 mmol/L 07/17/2025 4:12 PM EDT [facility] Potassium, Plasma 4.3 3.6 - 4.9 mmol/L 07/17/2025 4:12 PM EDT [facility] Chloride, Plasma 100 97 - 107 mmol/L 07/17/2025 4:12 PM EDT [facility] CO2, Plasma 24 22 - 29 mmol/L 07/17/2025 4:12 PM EDT [facility] Anion Gap 13 6 - 16 mmol/L 07/17/2025 4:12 PM EDT [facility] Total Calcium, Plasma 8.9 8.9 - 10.2 mg/dL 07/17/2025 4:12 PM EDT [facility] eGFRcr 32.2 mL/min/1.7 3m*2 07/17/2025 4:12 PM EDT [facility] Comment:Reported eGFRcr in m L/min/1.73m2 is based the CKD-EPI 2020 equation that does not use a race coefficient. Blood Venous blood specimen / Unknown Venipuncture / Unknown 07/17/2025 3:42 PM EDT 07/17/2025 3:46 PM EDT us Palma Zuluaga MD LAB BLOOD ORDERABLES Final Re sult [facility] [address] [place] [address] * (ABNORMAL) CBC w/diff (07/17/2025 3:42 PM EDT) WBC Count 6.35 3.70 - 10.30 10*3/uL LAB HEMATOLOGY METHOD 07/17/2025 3:49 PM EDT [facility] RBC Count 4.59(L) 4.60 - 6.10 10*6/uL LAB HEMATOLOGY METHOD 07/17/2025 3:49 PM EDT [facility] HGB 13.1(L) 13.7 - 17.5 g/dL LAB HEMATOLOGY METHOD 07/17/2025 3:49 PM EDT [facility] HCT 39.8(L) 40.0 - 51.0 % LAB HEMATOLOGY METHOD 07/17/2025 3:49 PM EDT [facility] Platelet Count 156 155 - 369 10*3/uL LAB HEMATOLOGY METHOD 07/17/2025 3:49 PM EDT [facility] MCV 87 79 - 98 fL LAB HEMATOLOGY METHOD 07/17/2025 3:49 PM EDT [facility] MCH 28.5 26.0 - 32.0 pg LAB HEMATOLOGY METHOD 07/17/2025 3:49 PM EDT [facility] MCHC 32.9 30.7 - 35.5 g/dL LAB HEMATOLOGY METHOD 07/17/2025 3:49 PM EDT [facility] RDW 13.5 11.5 - 14.5 % LAB HEMATOLOGY METHOD 07/17/2025 3:49 PM EDT [facility] MPV 9.7 8.8 - 12.5 fL LAB HEMATOLOGY METHOD 07/17/2025 3:49 PM EDT [facility] nRBC 0.0 <=0.0 per 100 WBCs LAB HEMATOLOGY METHOD 07/17/2025 3:49 PM EDT [facility] Differential Type Automated LAB HEMATOLOGY METHOD 07/17/2025 3:49 PM EDT [facility] Neutrophils % 69 % LAB HEMATOLOGY METHOD 07/17/2025 3:49 PM EDT [facility] Lymphocytes % 17 % LAB HEMATOLOGY METHOD 07/17/2025 3:49 PM EDT [facility] Monocytes % 11 % LAB HEMATOLOGY METHOD 07/17/2025 3:49 PM EDT [facility] Eosinophils % 2 % LAB HEMATOLOGY METHOD 07/17/2025 3:49 PM EDT [facility] Basophils % 1 % LAB HEMATOLOGY METHOD 07/17/2025 3:49 PM EDT [facility] Immature Granulocytes % 0 % LAB HEMATOLOGY METHOD 07/17/2025 3:49 PM EDT [facility] Neutrophils Absolute 4.40 1.60 - 6.10 10*3/uL LAB HEMATOLOGY METHOD 07/17/2025 3:49 PM EDT [facility] Lymphocytes Absolute 1.06(L) 1.20 - 3.90 10*3/uL LAB HEMATOLOGY METHOD 07/17/2025 3:49 PM EDT [facility] Monocytes Absolute 0.71 0.30 - 0.90 10*3/uL LAB HEMATOLOGY METHOD 07/17/2025 3:49 PM EDT [facility] Eosinophils Absolute 0.13 0.00 - 0.50 10*3/uL LAB HEMATOLOGY METHOD 07/17/2025 3:49 PM EDT [facility] Basophils Absolute 0.03 0.00 - 0.10 10*3/uL LAB HEMATOLOGY METHOD 07/17/2025 3:49 PM EDT [facility] Immature Granulocytes Absolute 0.02 0.00 - 0.06 10*3/uL LAB HEMATOLOGY METHOD 07/17/2025 3:49 PM EDT [facility] Blood Venous blood specimen / Unknown Venipuncture / Unknown 07/17/2025 3:42 PM EDT 07/17/2025 3:46 PM EDT Narrative [facility] - 07/17/2025 3:49 PM EDT Therapeutic decision making should be based on absolute values, rather than percentages. us Palma Zuluaga MD LAB BLOOD ORDERABLES Final Re sult [facility] [address] [place] [address] documented in this encounter Visit Diagnoses Diagnosis Syncope, unspecified syncope type- Primary documented in this encounter Administered Medications Inactive Administered Medications - up to 3 most recent administrations Medication Order MAR Action Action Date Dose Rate Site acetaminophen (Tylenol) tablet 1,000 mg 1,000 mg, Oral, Once, 1 dose, On Mon07/17/25 at 1920, Routine Given 07/17/2025 7:31 PM EDT 1,000 mg ondansetron (Zofran) 4 MG/2ML injection - Pyxis Override Pull 1 dose, Starting on Mon07/17/25 at 1830, Until Mon07/17/25 at 1834 ondansetron (Zofran) injection 4 mg [...] documented as of this encounter Care Teams Motion Picture Projectionist Relationship Specialty Start Date End Date Quyen Vincent DO [address] [place] [address] [place] [address] PCP - General 04/09/21 documented as of this encounter
--- NOTE | 2025-08-20 08:52 | MR_ITS ---
FINAL REPORT TECHNIQUE: Multiplanar and multisequence imaging of the lumbar spine was obtained without contrast. CLINICAL HISTORY: LUMBAR SPINE PAIN. HX LUMBAR SURGERY 8MONTHS AGO. LOW BACK PAIN ON RIGHT SIDE. LEFT LEG PAIN, NUMBNESS AND TINGLING COMPARISON: 07/16/2024 FINDINGS: There has been interval posterior fusion at L4-5. There is normal alignment of the lumbar vertebral bodies in the sagittal plane. Vertebral body height is preserved. The spinal cord ends at the level of L1. There is normal signal intensity within the substance of the distal spinal cord. No acute bone marrow edema or pathologic marrow replacement. No acute paraspinal abnormality is identified. L1-2: No focal disc herniation, central canal stenosis or neuroforaminal narrowing. L2-3: Disc osteophyte complex. No focal disc herniation. Mild bilateral facet osteoarthropathy. No central canal stenosis or neuroforaminal narrowing. L3-4: Annular disc bulge with degenerative endplate changes and facet osteoarthropathy. Mild central canal stenosis. No neuroforaminal narrowing. L4-5: No focal disc herniation. Mild central canal stenosis related to disc osteophyte complex. No neuroforaminal narrowing. L5-S1: Central protrusion superimposed on annular bulge. Bilateral facet osteoarthropathy. No central canal stenosis. Moderate right and severe left neuroforaminal narrowing. IMPRESSION: Interval posterior fusion at L4-5. Degenerative disc disease most pronounced at L5-S1, progressed since the previous exam. Reviewed, Interpreted and Dictated by Kecia Jurado MD Transcribed by Esthela Dasilva Authenticated and [facility]
--- OUTSIDE RECORDS SUMMARY | 2025-08-20 09:01 | XMS_ITS | Encounter Summary ---
Author Organization [employer] ([place], [place], [place], [place]) Address [address] [place] [address] Care Team Providers Care Laborer Cutting Tool Name Role Phone Unavailable Primary Care Provider Unavailabl e Encounter Details Date Type Department Care Team (Late st Contact Info) Description 01/21/2020 Transcribed Document [facility] Family Medicine [place] [address] ProviderLora MD [address] [place], [place] [address] Social History Tobacco Use Types Packs/Day Years Used Date Smoking Tobacco: Never Assessed Sex and Gender Information Value Date Recorded Sex Assigned at Not on file Legal Sex Male 5:25 PM CDT Gender Identity Not on file Sexual Orientation Not on file documented as of this encounter Miscellaneous Notes * [employer]ner Conversion Note - Historical ProviderMD - 01/21/2020 8:44 AM COGENERATION TECHNICIAN Patient: JONATHAN DELGADO Age: 49 years Sex: [...] hyperlipidemia and hypertension. He originally presented to [facility] with complaints of left foot pain. States that this pain began about Monday is when he first noticed. He has his took his foot and discovered that there was a wound on the sole of his left foot on the ball of the foot. He does not recall any trauma to the foot. Family stated that due to a disagreement with the search engine marketing specialist that was on duty they requested transfer from that facility to here. Labs at outside hospital showed patient was without leukocytosis and was generally unremarkable. Cultures were obtained and patient was given 2 g IV Rocephin. He did receive a foot x-ray while at [facility] but the report did not [...] with the lab today 01/18 blood cultures [facility] Rad: Radiology Results (Last 48 hours) [id number] -- 01/19/2020 15:12 CR Chest 2 Vws [...]
--- OUTSIDE RECORDS SUMMARY | 2025-08-20 09:02 | XMS_ITS | Encounter Summary ---
Author Organization [employer] ([place], [place], [place], [place]) Address [address] [place] [address] Care Team Providers Care Product Tester Fiberglass Name Role Phone Unavailable Primary Care Provider Unavailabl e Encounter Details Date Type Department Care Team (Late st Contact Info) Description 01/21/2020 Transcribed Document [facility] [address] [place] [address] ProviderLora MD [address] [place] [address] Social History Tobacco Use Types Packs/Day Years Used Date Smoking Tobacco: Never Assessed Sex and Gender Information Value Date Recorded Sex Assigned at Not on file Legal Sex Male 5:25 PM CDT Gender Identity Not on file Sexual Orientation Not on file documented as of this encounter Miscellaneous Notes * [employer]ner Conversion Note - Historical ProviderMD - 01/21/2020 5:00 AM PRESSING MACHINE OPERATOR Chart Check - Review Order Profile Entered [...]
--- OUTSIDE RECORDS SUMMARY | 2025-08-20 09:02 | XMS_ITS | Clinical Summary ---
Author Organization [employer] ([place], [place], [place], [place]) Address [address] [place] [address] Care Team Providers Care Prosecuting Attorney Name Role Phone Unavailable Primary Care [...]
--- OUTSIDE RECORDS SUMMARY | 2025-08-20 09:02 | XMS_ITS | Clinical Summary ---
Author Organization [facility] Address [address] [place] [address] Phone Care Team Providers Care Nipple Threader Name Role Phone Giles DE LA CRUZ, [...] fat layer exposed Coronary artery disease (CAD) 04643150 (SNOMED CT) 01/21 Active 01/21 Georgina Ruth Coronary arteriosclerosis DM II with diabetic peripheral neuropathy 87339929 (SNOMED CT) 01/21 Active 01/21 Georgina Ruth Type 2 diabetes mellitus Benign Essential Hypertension 1878203 (SNOMED CT) 01/21 Active 01/21 Georgina Ruth Benign essential hypertension Wound infection/Ce llulitis of left foot L03.116 (ICD-10-CM ) 01/21 Active 01/21 Treva W Cellulitis of left lower limb MSSA infection 121840812 (SNOMED CT) 01/21 Active 01/21 Treva W Infection by methicillin sensitive Staphylococcus aureus Medications Medication Instructions Start Date Stop Date Generic Name ND Provider KEFLEX 500 MG ORAL CAPSULE one po qid CEPHALEXIN 06926656999 Radha Tucker APRN CEFTRIAXONE SODIUM 2 GM SOLR Rocephin 2GM IV Q24hrs - INPAT CEFTRIAXONE SODIUM 38834907453 Silvia Trujillo RN CEPHALEXIN 500 MG CAPS Take 1 by mouth 4 times a day CEPHALEXIN 27925048843 Adrayn Skaggs MD CEFTRIAXONE SODIUM 2 GM SOLR Rocephin 2GM IV Q24hrs - INPAT CEFTRIAXONE SODIUM 54727386166 Yuni Christine SERTRALINE HCL 100 MG TABS 2 tablets daily SERTRALINE HCL 64522032120 Macarena Maria PRILOSEC OTC 20 MG TBEC Take 1 tablet by mouth daily OMEPRAZOLE MAGNESIUM 30338323351 Macarena Maria OXYCODONE HCL 5 MG TABS Take one (1) tablet by mouth four times a day as needed OXYCODONE HCL 93813745076 Macarena Maria NOVOLOG 100 UNIT/ML SUBCUTANEOUS SOLUTION INSULIN ASPART 01111736481 Macarena Maria LIPITOR 40 MG TABS Take 1 tablet by mouth daily ATORVASTATIN CALCIUM 69652516218 Macarena Maria LANTUS 100 UNIT/ML SOLN INSULIN GLARGINE 63351255436 Macarena Maria JARDIANCE 25 MG TABS Take 1 tablet by mouth daily in the AM EMPAGLIFLOZIN 37186213628 Macarena Maria ADULT ASPIRIN REGIMEN 81 MG ORAL TABLET DELAYED RELEASE Take 1 tablet by mouth daily ASPIRIN 15433052189 Macarena Maria Medications Administered No information available. [...]
--- OUTSIDE RECORDS SUMMARY | 2025-08-20 09:02 | XMS_ITS | Encounter Summary ---
Author Organization [employer] ([place], [place], [place], [place]) Address [address] [place] [address] Care Team Providers Care Journeyman Pipe Fitter Name Role Phone Unavailable Primary Care Provider Unavailabl e Encounter Details Date Type Department Care Team (Late st Contact Info) Description 01/21/2020 Transcribed Document [facility] [place] [address] ProviderLora MD [address] [place], [place] [id number] Social History Tobacco Use Types Packs/Day Years Used Date Smoking Tobacco: Never Assessed Sex and Gender Information Value Date Recorded Sex Assigned at Not on file Legal Sex Male 5:25 PM CDT Gender Identity Not on file Sexual Orientation Not on file documented as of this encounter Miscellaneous Notes * Cerner Conversion Note - Historical ProviderMD - 01/21/2020 2:32 PM BARREL POLISHER Nursing Discharge Summary Entered On: 01/21/2020 14:33 [...] 01/21/2020 14:32 EST Electronically signed by Stefanie [facility] Conversion Fixed Income Analyst Cerner at 03/17/2023 9:22 AM CDT documented in this encounter Plan of Treatment Not on file documented as of this encounter Visit Diagnoses Not on filedocumented in this encounter
--- OUTSIDE RECORDS SUMMARY | 2025-08-20 09:02 | XMS_ITS | Encounter Summary ---
Author Organization [employer] ([place], [place], [place], [place]) Address [address] [place] [address] Care Team Providers Care Domestic Laundry Worker Name Role Phone Unavailable Primary Care Provider Unavailabl e Encounter Details Date Type Department Care Team (Late st Contact Info) Description 01/20/2020 Transcribed Document [facility] Radiology 1 [place] [address] Paresh Bravo MD [address] [place] [address] Social History Tobacco Use Types Packs/Day [...] mg, 18 mL, 136 mL/Hr, IV Piggyback, [id number] DAPTOmycin + Sodium Chloride 0.9% intravenous solution 50 mL: 900 mg, 18 mL, 136 mL/Hr, IV Piggyback, [id number] DuoNeb 0.5 mg-2.5 mg/3 mL inhalation solution: [...] mL: 2 Gram, 100 mL/Hr, IV Piggyback, [id number] Tylenol: 650 mg, Oral, Q4H, PRN: Other [...] 0.9% 50 mL 2 Gram, IV Piggyback, [id number] DAPTOmycin + NaCl 0.9% 50 mL 900 mg 18 mL, IV Piggyback, [id number] DAPTOmycin + NaCl 0.9% 50 mL 900 mg 18 mL, IV Piggyback, [id number] famotidine 20 mg tab 20 mg 1 [...] History of obstructive sleep apnea / IMO [id number] / Confirmed, Active Problems (11) Angina Coronary [...] 42.9 \ Radiology Results (Last 48 hours) [id number] -- 01/19/2020 15:12 CR Chest 2 Vws [...] 50 mL) 2 Gram, IV Piggyback, Inj, Z77DTjq, infuse over 30 Minute(s), Routine, Start 01/20/20 16:00:00 EST, 100 mL/Hr, Indication: Skin and Skin Structure Infection SARCINELLA, MYNOR, POULTRY HUSBANDMAN DAPTOmycin + Sodium Chloride 0.9% intravenous solution 50 mL 900 mg, IV Piggyback, [id number], infuse over 30 Minute(s), Routine, Start 01/20/20 21:00:00 EST, 136 mL/Hr, Indication: Skin and Skin Structure Infection SARCINELLA, MYNOR, POULTRY HUSBANDMAN DAPTOmycin + Sodium Chloride 0.9% intravenous solution 50 mL 900 mg, IV Piggyback, T88XEcs, infuse over 30 Minute(s), order duration: 1 Time(s), Routine, Start 01/19/20 16:00:00 EST, Stop 01/20/20 15:59:00 EST, 136 mL/Hr, Indication: Skin and Skin Structure Infection SARCINELLA, MYNOR, POULTRY HUSBANDMAN insulin glargine (Lantus) 18 Units, SubCutaneous, Inj, [...] solution 100 mL) 2 Gram, IV Piggyback, H58VOss, infuse over 30 Minute(s), Routine, Start 01/19/20 16:00:00 EST, 200 mL/Hr, Indication: Skin and Skin Structure Infection SARCINELLA, MYNOR, POULTRY HUSBANDMAN meropenem + Sodium Chloride 0.9% intravenous solution [...]
--- OUTSIDE RECORDS SUMMARY | 2025-08-20 09:02 | XMS_ITS | Encounter Summary ---
[facility] Address [address] [place] [id number] Care Team Providers Care Principal Programmer Name Role Phone Quyen Vincent DO Primary Care Provider [phone] Encounter Details Date Type Department Care Team (Late st Contact Info) Description 07/06/2025 Results Follow-Up [facility] ENDOCRINOLOGY [address] [facility] [address] [place] [address] Jennifer Villanueva PA [address] [facility] [address] [place] [address] Social History Tobacco Use Types [...] more drinks on one occasion? Monthly 11/29/2022 Citizen [place] of Occupat ional Health - Occupational Stress [...] Description 11/03/2025 1:00 PM EST Office Visit [facility] ENDOCRINOLOGY [address] [facility] [address] [place] [phone] Jennifer Villanueva PA [address] [facility] [address] [place] [address] Scheduled Procedures Name Priority Associated Diagnoses Date/Ti me LEFT HEART CATH w/cors Unstable angina documented as of this encounter Visit Diagnoses Not on filedocumented in this encounter Care Teams Principal Programmer Relationship Specialty Start Date End Date Quyen Vincent DO [facility] [place] [address] PCP - General Family Medicine 02/17/17 documented as of this encounter
--- OUTSIDE RECORDS SUMMARY | 2025-08-20 09:02 | XMS_ITS | Encounter Summary ---
Author Organization [employer] ([place], [place], [place], [place]) Address [address] [place] [address] Care Team Providers Care Vender Name Role Phone Unavailable Primary Care Provider Unavailabl e Encounter Details Date Type Department Care Team (Late st Contact Info) Description 01/21/2020 Transcribed Document [facility] [place] [address] [place] [address] ProviderLora MD [address] [place] [address] Social History Tobacco Use Types Packs/Day Years Used Date Smoking Tobacco: Never Assessed Sex and Gender Information Value Date Recorded Sex Assigned at Not on file Legal Sex Male 5:25 PM CDT Gender Identity Not on file Sexual Orientation Not on file documented as of this encounter Miscellaneous Notes * [employer]ner Conversion Note - Historical ProviderMD - 01/21/2020 2:00 AM BUILDING CONSTRUCTION IRONWORKER Medical Record Coder Details Entered On: 01/21/2020 5:09 EST Performed [...]
--- OUTSIDE RECORDS SUMMARY | 2025-08-20 09:02 | XMS_ITS | Encounter Summary ---
[facility] Organization [facility] Address [address] [place] [id number] Care Team Providers Care Visiting Housekeeper Name Role Phone Quyen Vincent DO Primary Care Provider [phone] Encounter Details Date Type Department Care Team (Late st Contact Info) Description 06/23/2025 Telephone [facility] ENDOCR[facility]OLOGY [address] [facility] [address] [place] [address] Jennifer Villanueva PA [address] [facility] [address] [place] [address] Social History Tobacco Use Types [...] more drinks on one occasion? Monthly 11/29/2022 [facility] [place] of Occupat ional Health - Occupational Stress [...] Description 11/03/2025 1:00 PM EST Office Visit [facility] ENDOCRINOLOGY [address] [phone] Jennifer Villanueva PA [address] [facility] [address] [place] [address] Scheduled Procedures Name Priority Associated Diagnoses Date/Ti me LEFT HEART CATH w/cors Unstable angina documented as of this encounter Visit Diagnoses Not on filedocumented in this encounter Care Teams Visiting Housekeeper Relationship Specialty Start Date End Date Quyen Vincent DO [facility] [place] [address] PCP - General Family Medicine 02/17/17 documented as of this encounter
--- OUTSIDE RECORDS SUMMARY | 2025-08-20 09:02 | XMS_ITS | Encounter Summary ---
Author Organization [employer] ([place], [place], [place], [place]) Address [address] [place] [address] Care Team Providers Care Hall Director Name Role Phone Unavailable Primary Care Provider Unavailabl e Encounter Details Date Type Department Care Team (Late st Contact Info) Description 01/21/2020 Transcribed Document [facility] [place] [address] [place] [address] ProviderLora MD [address] [place] [address] Social History Tobacco Use Types Packs/Day Years Used Date Smoking Tobacco: Never Assessed Sex and Gender Information Value Date Recorded Sex Assigned at Not on file Legal Sex Male 5:25 PM CDT Gender Identity Not on file Sexual Orientation Not on file documented as of this encounter Miscellaneous Notes * Cerner Conversion Note - Lora ProviderMD - 01/21/2020 1:00 PM CHIEF OPHTHALMIC TECHNICIAN [place] [address] JONATHAN DELGADO :1970 Visit Time:01/19/2020 Your [...] ID, Ins Co-pay Where: [address] [place] [address]- Follow Up with CHERISE HOWELL When 01/27/2020 01:40 PM EST Comments Appointment has been made Bring discharge instructions with you Bring Ins Card, Photo ID, Ins Co-pay Where: [address] [facility] [address] [place] [address]- Business (1) Follow Up with MARA FLORES When 01/22/2020 01:30 PM EST Comments Appointment has been madeBring discharge instructions with you Bring Ins Card, Photo ID, Ins Co-pay Where: [address] [facility] [address] [place] [address]- Business (1) Medications What How Much When [...] you work with a diet and nutritional assistant (dietitian) to make a meal plan that [...] provider. ??? Work with a counselor or eyeglass lens grinder to identify strategies to manage stress and any emotional and social challenges. Questions to ask a health care provider ??? Do I need to meet with a eyeglass lens grinder? Do I need to meet with a dietitian? What number can I call if I have questions? When are the best times to check my blood glucose? Where to find more information: ??? [place] Diabetes Association: diabetes.org ??? Academy of Nutrition and Dietetics: www.eatright.org ??? National [place] of Diabetes and Digestive and Kidney Diseases (NIH): www.niddk.nih.gov Summary ??? A healthy meal plan will help you control your blood glucose and maintain a healthy lifestyle. ??? Working with a diet and nutritional assistant (dietitian) can help you make a meal [...] 08/10/2006 Document Revised: 06/13/2018 Document Reviewed: 12/18/2017 [employer] Interactive Patient Education ?? 2019 [employer] Inc. Carbohydrate Counting for Diabetes Mellitus, Adult [...] for every person. A diet and nutritional assistant (registered dietitian) can help you make a [...] of carbohydrates: ? hamburger bun or ?? Bruneian muffin. ? oz (15 mL) syrup. ? [...] foods that contain carbohydrates: ??? Rice. ??? [place]. ??? Milk. ??? Strawberries. 2. Calculate how [...] your diabetes. ??? A diet and nutritional assistant (registered dietitian) can help you make a meal plan and calculate how many carbohydrates you should have at each meal and snack. This information is not intended to replace advice given to you by your health care provider. Make sure you discuss any questions you have with your health care provider. Document Released: 11/13/2006 Document Revised: 05/23/2018 Document Reviewed: 04/26/2017 [employer] Interactive Patient Education ?? 2019 Ex[employer]y Inc. Incision and Drainage, Care After Refer [...] Follow these instructions at home: ??? Take igal-hwp-qwppuxt and prescription medicines only as told by [...] and water are not available, use hand general ledger accountant. ? When you should remove your dressing. [...] 02/04/2013 Document Revised: 04/14/2017 Document Reviewed: 09/02/2016 [employer]eg[employer] Interactive Patient Education ?? 2019 Ex[employer] Inc. Diabetes and Foot Care Diabetes may [...] 11/10/2001 Document Revised: 04/20/2017 Document Reviewed: 04/22/2014 [employer] Interactive Patient Education ?? 2017 [employer]. oxycodone (ox i KOE done) Oxaydo, OxyCONTIN, [...] The extended-release form of oxycodone is for mtzcdy-rmy-qihhe treatment of pain and should not be [...] against the law. Stop taking all other ituzis-tvn-rsoal narcotic pain medicines when you start taking [...] may report side effects to FDA at 2-737-NPX-9848. What other drugs will affect oxycodone? You [...] may affect oxycodone. This includes prescription and ryga-fll-wosupuk medicines, vitamins, and herbal products. Not all [...] to ensure that the information provided by [employer]. ('[employer]') is accurate, up-to-date, and complete, but no guarantee is made to that effect. Drug information contained herein may be time sensitive. [employer] information has been compiled for use by healthcare practitioners and consumers in the [place] and therefore [employer] does not warrant that uses outside of the [place] are appropriate, unless specifically indicated otherwise. [employer]'s drug information does not endorse drugs, diagnose patients or recommend therapy. [employer]s drug information is an informational resource designed [...] effective or appropriate for any given patient. [employer] does not assume any responsibility for any aspect of healthcare administered with the aid of information [employer] provides. The information contained herein is not intended to cover all possible uses, directions, precautions, warnings, drug interactions, allergic reactions, or adverse effects. If you have questions about the drugs you are taking, check with your doctor, nurse or pharmacist. Copyright 5822-3766 [employer]. Version: 13.03. Revision Date: 09/09/2019. lactobacillus acidophilus [...] may report side effects to FDA at 3-386-ZVP-3157. What other drugs will affect lactobacillus acidophilus? Do not take lactobacillus acidophilus without medical advice if you are using any medications that can weaken your immune system, such as: ?? medicine to prevent organ transplant rejection; or ?? steroid medicine (prednisone, dexamethasone, methylprednisolone, and others). This list is not complete. Other drugs may interact with lactobacillus acidophilus, including prescription and lxfr-eyo-qesiqni medicines, vitamins, and herbal products. Not all [...] to ensure that the information provided by [employer] ('[employer]') is accurate, up-to-date, and complete, but no guarantee is made to that effect. Drug information contained herein may be time sensitive. [employer] information has been compiled for use by healthcare practitioners and consumers in the [place] and therefore [employer] does not warrant that uses outside of the [place] are appropriate, unless specifically indicated otherwise. [employer] drug information does not endorse drugs, diagnose patients or recommend therapy. [employer] drug information is an informational resource designed [...] effective or appropriate for any given patient. [employer] does not assume any responsibility for any aspect of healthcare administered with the aid of information [employer] provides. The information contained herein is not intended to cover all possible uses, directions, precautions, warnings, drug interactions, allergic reactions, or adverse effects. If you have questions about the drugs you are taking, check with your doctor, nurse or pharmacist. Copyright 9351-1155 [employer]. Version: 3.07. Revision Date: 05/05/2017. Emergency Awareness [...] Assistance with quitting is available by contacting 6-011-KIBCNOW. This is a free resource providing counseling, [...] range between ( 0.0 and 7.0 ) [place] #: 0.59 K/uL -- Normal range between ( 0.16 and 1.00 ) [place] #: 0.26 x10(3)/uL -- Normal range between ( 0.00 and 0.80 ) [place] %: 9.1 % -- Normal range between [...] was given the opportunity to ask questions. Patient/Geological Drafter Name: Patient/Geological Drafter Signature: Relationship to Patient: Clinician/Hospital Geological Drafter Signature: Date: documented in this encounter Plan of Treatment Not on file documented as of this encounter Visit Diagnoses Not on filedocumented in this encounter
--- OUTSIDE RECORDS SUMMARY | 2025-08-20 09:02 | XMS_ITS | Encounter Summary ---
Author Organization [employer] ([place], [place], [place], [place]) Address [address] [place] [address] Care Team Providers Care Call Center Analyst Name Role Phone Unavailable Primary Care Provider Unavailabl e Encounter Details Date Type Department Care Team (Late st Contact Info) Description 01/21/[address] [facility] Radiology [address] [place] [address] Nikole Bravo MD [address] [place] [address] Social History Tobacco Use Types Packs/Day [...] Date 01/21/2020 Primary Care Provider ADRIAN DELACRUZ [facility] Discharge Diagnosis Diabetic foot ulcer/cellulitis. Osteomyelitis ruled out with MRI Coronary artery disease Diabetes mellitus. Hypertension. Hospital Course 49 yo male with history with CAD (PCI 2013), HTN, and DM presented to outside facility with complaints of redness of left foot, fever and chills. Pt transferred to [facility] for further evaluation and treatment. Pt [...] home IV antibiotics versus IV antibiotics at [facility] infectious office patient can be discharged on ceftriaxone 2 g IV daily. With wound dressing at [facility] infectious disease office and per his Podiatery [...] -- Start: 01/18/20 17:51:00 EST, 75 gm carbs:[id number] arturo Patient Discharge Summary Orders Discharge Activity: [...]
--- OUTSIDE RECORDS SUMMARY | 2025-08-20 09:02 | XMS_ITS | Encounter Summary ---
Author Organization [employer] ([place], [place], [place], [place]) Address [address] [place] [address] Care Team Providers Care Relief Map Modeler Name Role Phone Unavailable Primary Care Provider Unavailabl e Encounter Details Date Type Department Care Team (Late st Contact Info) Description 01/20/2020 Transcribed Document [facility] [place] [address] [place] [address] ProviderLora MD [address] [place], [place] [id number] Social History Tobacco Use Types Packs/Day Years Used Date Smoking Tobacco: Never Assessed Sex and Gender Information Value Date Recorded Sex Assigned at Not on file Legal Sex Male 5:25 PM CDT Gender Identity Not on file Sexual Orientation Not on file documented as of this encounter Miscellaneous Notes * Cerner Conversion Note - Historical ProviderMD - 01/20/2020 9:00 AM EYEGLASS FRAME TRUER Consult Phone Call Documentation Entered On: 01/20/2020 [...] Electronically signed by Cathryn Watts Conversion Electrical & Instrumentation Supervisor Cerner at 03/17/2023 9:37 AM CDT documented in this encounter Plan of Treatment Not on file documented as of this encounter Visit Diagnoses Not on filedocumented in this encounter
--- OUTSIDE RECORDS SUMMARY | 2025-08-20 09:02 | XMS_ITS | Encounter Summary ---
Author Organization [employer] ([place], [place], [place], [place]) Address [address] [place] [address] Care Team Providers Care Highway Administrative Engineer Name Role Phone Unavailable Primary Care Provider Unavailabl e Encounter Details Date Type Department Care Team (Late st Contact Info) Description 01/20/2020 Transcribed Document [facility] [place] [address] [place] [address] ProviderLora MD [address] [place], [place] [id number] Social History Tobacco Use Types Packs/Day Years Used Date Smoking Tobacco: Never Assessed Sex and Gender Information Value Date Recorded Sex Assigned at Not on file Legal Sex Male 5:25 PM CDT Gender Identity Not on file Sexual Orientation Not on file documented as of this encounter Miscellaneous Notes * Cerner Conversion Note - Historical ProviderMD - 01/20/2020 1:07 PM INSTRUMENT INSPECTOR Initial Discharge Planning Entered On: 01/20/2020 13:12 [...]
--- OUTSIDE RECORDS SUMMARY | 2025-08-20 09:02 | XMS_ITS | Encounter Summary ---
Author Organization [employer] ([place], [place], [place], [place]) Address [address] [place] [address] Care Team Providers Care Auto Research Engineer Name Role Phone Unavailable Primary Care Provider Unavailabl e Encounter Details Date Type Department Care Team (Late st Contact Info) Description 01/21/2020 Transcribed Document [facility] [place] [address] [place] [address] ProviderLora MD [address] [place] [address] Social History Tobacco Use Types Packs/Day Years Used Date Smoking Tobacco: Never Assessed Sex and Gender Information Value Date Recorded Sex Assigned at Not on file Legal Sex Male 5:25 PM CDT Gender Identity Not on file Sexual Orientation Not on file documented as of this encounter Miscellaneous Notes * Cerner Conversion Note - Lora ProviderMD - 01/21/2020 11:07 AM TRANSLATOR DEAF Stroke/Warfarin Instructions Entered On: 01/21/2020 11:07 EST Performed On: 01/21/2020 11:07 EST by Cinthya Salamnaca RN Stroke/Warfarin Instructions Stroke/TIA Discharge Ins : [...]
--- OUTSIDE RECORDS SUMMARY | 2025-08-20 09:02 | XMS_ITS | Encounter Summary ---
Author Organization [employer] ([place], [place], [place], [place]) Address [address] [place] [address] Care Team Providers Care Puttier Name Role Phone Unavailable Primary Care Provider Unavailabl e Encounter Details Date Type Department Care Team (Late st Contact Info) Description 01/21/2020 Transcribed Document [facility] [place] [facility] [address] ProviderLora MD [address] [place], [place] [id number] Social History Tobacco Use Types Packs/Day Years Used Date Smoking Tobacco: Never Assessed Sex and Gender Information Value Date Recorded Sex Assigned at Not on file Legal Sex Male 5:25 PM CDT Gender Identity Not on file Sexual Orientation Not on file documented as of this encounter Miscellaneous Notes * Cerner Conversion Note - Lora ProviderMD - 01/21/2020 12:11 PM MEDICAL LAB ASSISTANT Final Discharge Planning Entered On: 01/21/2020 12:15 [...] : Yes Discharge To Care Management : Home/Residential/Prison or Self Care -01 SANDY LEIJA, RN-Care Management - 01/21/2020 12:11 EST Final Narrative Note Final Narrative Note : Discharging today w/f/u appt made w/ID along w/plans for IV abx therapy beginning tomorrow w/[facility] SANDY LEIJA RN-Care Management - 01/21/2020 12:11 EST Electronically signed by [facility] Conversion Health Information Administrator Cerner at 03/17/2023 9:46 AM CDT documented in this encounter Plan of Treatment Not on file documented as of this encounter Visit Diagnoses Not on filedocumented in this encounter
--- OUTSIDE RECORDS SUMMARY | 2025-08-20 09:02 | XMS_ITS | Encounter Summary ---
Author Organization [employer] ([place], [place], [place], [place]) Address [address] [place] [address] Care Team Providers Care News Producer Name Role Phone Unavailable Primary Care Provider Unavailabl e Encounter Details Date Type Department Care Team (Late st Contact Info) Description 01/21/2020 Transcribed Document [facility] [place] [address] [place] [address] ProviderLora MD [address] [place] [address] Social History Tobacco Use Types Packs/Day Years Used Date Smoking Tobacco: Never Assessed Sex and Gender Information Value Date Recorded Sex Assigned at Not on file Legal Sex Male 5:25 PM CDT Gender Identity Not on file Sexual Orientation Not on file documented as of this encounter Miscellaneous Notes * Cerner Conversion Note - Lora ProviderMD - 01/21/2020 10:45 AM ELEVATOR REPAIRER HELPER UM Authorization Entered On: 01/21/2020 10:45 EST Performed On: 01/21/2020 10:45 EST by JOAQUIN PETTY RN Primary Insurance Authorization Authorization and Policy Numbers : Insurance 1 Health Plan: [employer] Policy Number: [id number] Authorization Number: Insurance Primary Name : [employer]TH [employer] Policy Number: [id number] Authorization Status-Primary : Admit approved Reference Number-Primary : [id number] Number of Days Authorized-Primary : 1 Day(s) Authorized Service Begin Date-Primary : 01/18/2020 EST Authorized Service End Date-Primary : 01/19/2020 EST Authorization Comments-Primary : 2 days los approved, nrd 01/20, clinicals faxed via [employer] for C/S Historical Authorization Comments-Primary : Comment 1: Submitted Inpt Auth on Availity with clinicals attached. (HORACIO REGALADO Rn-Utilization Review 01/19/2020 15:14) JOAQUIN PETTY RN - 01/21/2020 10:45 EST Electronically signed by Stefanie [facility] Conversion Health Insurance Specialist Cerner at 03/17/2023 9:23 AM CDT documented in this encounter Plan of Treatment Not on file documented as of this encounter Visit Diagnoses Not on filedocumented in this encounter
--- OUTSIDE RECORDS SUMMARY | 2025-08-20 09:02 | XMS_ITS | Encounter Summary ---
Author Organization [employer] ([place], [place], [place], [place]) Address [address] [place] [address] Care Team Providers Care Records Coordinator Name Role Phone Unavailable Primary Care Provider Unavailabl e Encounter Details Date Type Department Care Team (Late st Contact Info) Description 01/20/2020 Transcribed Document [facility] [place] [address] [place] [address] ProviderLora MD [address] [place] [address] Social History Tobacco Use Types Packs/Day Years Used Date Smoking Tobacco: Never Assessed Sex and Gender Information Value Date Recorded Sex Assigned at Not on file Legal Sex Male 5:25 PM CDT Gender Identity Not on file Sexual Orientation Not on file documented as of this encounter Miscellaneous Notes * Cerner Conversion Note - Historical ProviderMD - 01/20/2020 5:00 AM ROLL MECHANIC Chart Check - Review Order Profile [...]
--- OUTSIDE RECORDS SUMMARY | 2025-08-20 09:02 | XMS_ITS | Encounter Summary ---
Author Organization [employer] ([place], [place], [place], [place]) Address [address] [place] [address] Care Team Providers Care Front Office Supervisor Name Role Phone Unavailable Primary Care Provider Unavailabl e Encounter Details Date Type Department Care Team (Late st Contact Info) Description 01/20/2020 Transcribed Document [facility] [place] Family Medicine [address] [place] [address] ProviderLora MD [address] [place] [address] Social History Tobacco Use Types Packs/Day Years Used Date Smoking Tobacco: Never Assessed Sex and Gender Information Value Date Recorded Sex Assigned at Not on file Legal Sex Male 5:25 PM CDT Gender Identity Not on file Sexual Orientation Not on file documented as of this encounter Miscellaneous Notes * Cerner Conversion Note - Historical ProviderMD - 01/20/2020 2:00 AM HEEL PACKER Wool Shearer Details Entered On: 01/20/2020 3:34 EST Performed [...] EST Electronically signed by Cathryn Watts Conversion Customer Operations Specialist Cerner at 03/17/2023 9:42 AM CDT documented in this encounter Plan of Treatment Not on file documented as of this encounter Visit Diagnoses Not on filedocumented in this encounter
--- OUTSIDE RECORDS SUMMARY | 2025-08-20 09:02 | XMS_ITS | Encounter Summary ---
Author Organization [employer] ([place], [place], [place], [place]) Address [address] [place] [address] Care Team Providers Care Termite Treater Name Role Phone Unavailable Primary Care Provider Unavailabl e Encounter Details Date Type Department Care Team (Late st Contact Info) Description 01/23/2020 Transcribed Document [facility] [place] Family Medicine [address] [place] [address] ProviderLora MD [address] [place], [place] [id number] Social History Tobacco Use Types Packs/Day Years Used Date Smoking Tobacco: Never Assessed Sex and Gender Information Value Date Recorded Sex Assigned at Not on file Legal Sex Male 5:25 PM CDT Gender Identity Not on file Sexual Orientation Not on file documented as of this encounter Miscellaneous Notes * Cerner Conversion Note - Lora ProviderMD - 01/23/2020 2:20 PM FURNITURE SHAMPOOER UM Authorization Entered On: 01/23/2020 14:23 EST Performed On: 01/23/2020 14:20 EST by LORENA GOLDMAN RN Primary Insurance Authorization Authorization and Policy Numbers : Insurance 1 Health Plan: [employer] Policy Number: [id number] Authorization Number: Insurance Primary Name [facility] Policy Number: [id number] Authorization Status-Primary : Drg approved Auth/Referral Contact Name-Primary : [place] Reference Number-Primary : [id number] Number of Days Authorized-Primary : 1 Day(s) Authorized Service Begin Date-Primary : 01/18/2020 EST Authorized Service End Date-Primary : 01/19/2020 EST Authorization Comments-Primary : Per Availity, DRG approved. Historical Authorization Comments-Primary : Comment 1: Discharge date and summary faxed. (Roxie Marshall, Medical Billing And Coding Instructor 01/22/2020 13:27) Comment 2: 2 days los [...]
--- OUTSIDE RECORDS SUMMARY | 2025-08-20 09:02 | XMS_ITS | Encounter Summary ---
Author Organization [employer] ([place], [place], [place], [place]) Address [address] [place] [address] Care Team Providers Care Bronzer Name Role Phone Unavailable Primary Care Provider Unavailabl e Encounter Details Date Type Department Care Team (Late st Contact Info) Description 01/22/2020 Transcribed Document [facility] [place] [address] [place] [address] ProviderLora MD [address] [place], [place] [id number] Social History Tobacco Use Types Packs/Day Years Used Date Smoking Tobacco: Never Assessed Sex and Gender Information Value Date Recorded Sex Assigned at Not on file Legal Sex Male 5:25 PM CDT Gender Identity Not on file Sexual Orientation Not on file documented as of this encounter Miscellaneous Notes * Cerner Conversion Note - Lora ProviderMD - 01/22/2020 1:27 PM INVENTORY AND PRICING ASSOCIATE UM Authorization Entered On: 01/22/2020 13:28 EST Performed On: 01/22/2020 13:27 EST by Roxie Marshall, Director Public Policy Primary Insurance Authorization Authorization and Policy Numbers : Insurance 1 Health Plan: [employer] [facility] Policy Number: [id number] Authorization Number: Insurance [facility] Policy Number: [id number] Authorization Status-Primary : Admit approved Auth/Referral Contact Name-Primary : [place] Reference Number-Primary : [id number] Number of Days Authorized-Primary : 1 Day(s) [...] REGALADO, Rn-Utilization Review 01/19/2020 15:14) Roxie Marshall, Director Public Policy - 01/22/2020 13:27 EST Electronically signed by [facility], [facility] Conversion Nremt Cerner at 03/17/2023 9:31 AM CDT documented in this encounter Plan of Treatment Not on file documented as of this encounter Visit Diagnoses Not on filedocumented in this encounter
--- OUTSIDE RECORDS SUMMARY | 2025-08-20 09:02 | XMS_ITS | Clinical Summary ---
Author Organization [facility] Address [address] [place] [address] Care Team Providers Care Education Department Registrar Name Role Phone Melisa Quyenmariam Leonggh Primary Care Provider [phone] Allergies Active Allergy Reactions Criticality Noted Date Comments Penicillins Unknown - Low Severity Low 02/17/2017 Childhood reaction, unknown severity Medications sertraline (ZOLOFT) 100 MG tablet Take 2 tablets by mouth Every Evening. Active Insulin Syringe 31G X 5/16 0.5 ML miscIndications:U ncontrolled type 2 diabetes [...] 8 (Eight) Hours. Active Continuous Glucose Sensor ([employer] G7 Sensor) miscIndications:C ontrolled type 2 diabetes mellitus with hyperglycemia, with long-term current use of insulin Use 1 each Every 10 (Ten) Days. Patient needs an appointment before any further refills 9 each 3 5 Active vitamin D (ERGOCALCIFEROL) 1.25 MG (44551 UT) capsule capsule Vitamin D (Ergocalciferol ) 1.25 MG (75997 UT) Oral Capsule QTY: 12 Days: 84 [...] Hypertension 01/14/2019 Coronary artery disease invo lving [place] heart with unstable angina pectoris 06/07/2018 Overview (06/07/2018): Added automatically from request for surgery [id number] Anxiety 03/08/2017 CAD (coronary artery disease) 03/08/2017 [...] Department Care Team Description 07/06/2025 Results Follow-Up [facility] [address] [place] [address] Jennifer Villanueva PA 06/30/2025 8:30 AM EDT Office Visit [facility] [address] [place] [address] Jennifer Villanueva PA Type 2 diabetes mellitus with hyperglycemia, with long-term current use of insulin (Primary Dx); Abnormal thyroid function test 06/30/2025 Travel 06/23/2025 Telephone [facility] [address] [place] [address] Jennifer Villanueva PA 06/12/2025 Refill [facility] [address] [place] [address] Enmanuel Fletcher MD from Last 3 Months [...] more drinks on one occasion? Monthly 11/29/2022 [facility] - Occupational [...] Description 11/03/2025 1:00 PM EST Office Visit [facility] [address] [phone] Jennifer Villanueva PA [address] [address] Scheduled Procedures Name Priority Associated [...] 03/08/2017 ZOSTER VACCINE (1 of 2) 2020 INFLUENZA VACCINE 06/27/2025 08/17/2024, , 09/20/2018 URINE MICROALBUMIN-CREATININ E RATIO (uACR) 07/05/2025 07/05/2024, 12/13/2022, 01/27/2021, Additional history exists LIPID PANEL 12/10/2025 12/10/2024, 08/0 07/2024, 08/01/2023, Additional history exists HEMOGLOBIN A1C 12/31/2025 06/30/2025, 04/1 04/2025, 12/10/2024, Additional history exists DIABETIC FOOT EXAM 06/30/2026 06/30/2025, 0 06/30/2025, 06/30/2025, Additional history exists COLONOSCOPY 06/27/2027 06/27/2017 COLORECTAL CANCER SCREENING 06/27/2027 [facility] Discontinued Procedures Procedure Name Priority Date/Time Associated [...] - 4.200 uIU/mL 06/30/2025 2:51 PM EDT LABORATORY Blood Structure of left upper limb / Unknown Venipuncture / Unknown 06/30/2025 9:32 AM EDT 06/30/2025 9:32 AM EDT us Jennifer MANCINI LAB BLOOD ORDERABLES Final Resu lt LABORATORY
[address] [place] [address], * T4, Free (06/30/2025 9:32 AM EDT) Free T4 1.60 0.92 - 1.68 ng/dL 06/30/2025 2:51 PM EDT LABORATORY Blood Structure of left upper limb / Unknown Venipuncture / Unknown 06/30/2025 9:32 AM EDT 06/30/2025 9:32 AM EDT Jennifer MANCINI LAB BLOOD ORDERABLES Final Resu lt LABORATORY
[address] [place] [address], * (ABNORMAL) Comprehensive Metabolic Panel (06/30/2025 9:32 AM EDT) Glucose 93 65 - 99 mg/dL 06/30/2025 2:51 PM EDT LABORATORY BUN 26.0(H) 6.0 - 20.0 mg/dL 06/30/2025 2:51 PM EDT LABORATORY Creatinine 1.86(H) 0.76 - 1.27 mg/dL 06/30/2025 2:51 PM EDT LABORATORY Sodium 142 136 - 145 mmol/L 06/30/2025 2:51 PM EDT LABORATORY Potassium 4.1 3.5 - 5.2 mmol/L 06/30/2025 2:51 PM EDT LABORATORY Chloride 99 98 - 107 mmol/L 06/30/2025 2:51 PM EDT LABORATORY CO2 27.1 22.0 - 29.0 mmol/L 06/30/2025 2:51 PM EDT LABORATORY Calcium 9.8 8.6 - 10.5 mg/dL 06/30/2025 2:51 PM EDT LABORATORY Total Protein 8.0 6.0 - 8.5 g/dL 06/30/2025 2:51 PM EDT LABORATORY Albumin 4.6 3.5 - 5.2 g/dL 06/30/2025 2:51 PM EDT LABORATORY ALT (SGPT) 21 1 - 41 U/L 06/30/2025 2:51 PM EDT LABORATORY AST (SGOT) 25 1 - 40 U/L 06/30/2025 2:51 PM EDT LABORATORY Alkaline Phosphatase 156(H) 39 - 117 U/L 06/30/2025 2:51 PM EDT LABORATORY Total Bilirubin 0.7 0.0 - 1.2 mg/dL 06/30/2025 2:51 PM EDT LABORATORY Globulin 3.4 gm/dL 06/30/2025 2:51 PM EDT LABORATORY A/G Ratio 1.4 g/dL 06/30/2025 2:51 PM EDT LABORATORY BUN/Creatinine Ratio 14.0 7.0 - 25.0 06/30/2025 2:51 PM EDT LABORATORY Anion Gap 15.9(H) 5.0 - 15.0 mmol/L 06/30/2025 2:51 PM EDT LABORATORY eGFR 42.5(L) >60.0 mL/min/1.7 3 06/30/2025 2:51 PM T LABORATORY Blood Structure of left upper limb / Unknown Venipuncture / Unknown 06/30/2025 9:32 AM EDT 06/30/2025 9:32 AM EDT [facility] LABORATORY - 06/30/2025 2:51 PM [...] does not include race as a factor us Jennifer MANCINI LAB BLOOD ORDERABLES Final Resu lt LABORATORY
[address] [place] [address], * (ABNORMAL) POC Glycosylated Hemoglobin (Hb A1C) (06/30/2025 8:47 AM EDT) Pathologist [facility] Hemoglobin A1C 6.9(A) 4.5 - 5.7 % [facility] Lot Number [id number] [facility] Expiration Date 03/05/2027 [facility] Blood 06/30/2025 8:47 AM EDT Jennifer MANCINI POINT OF CARE TEST ORDERABLES F inal Result [facility]
[address] [place] [address], [place] [phone] * POC Glucose, Blood (06/30/2025 8:44 AM EDT) [facility] Glucose 121 70 - 130 mg/dL Lot Number [id number] Expiration Date 12/30/2025 Blood 06/30/2025 8:44 AM EDT Jennifer MANCINI POINT OF CARE TEST ORDERABLES F inal Result * (ABNORMAL) Lipid Panel (12/10/2024 2:10 PM EST) Pathologist [facility] Total Cholesterol 148 0 - 200 mg/dL 12/11/2024 12:18 AM EST LABORATORY Triglycerides 219(H) 0 - 150 mg/dL 12/11/2024 12:18 AM EST LABORATORY HDL Cholesterol 36(L) 40 - 60 mg/dL 12/11/2024 12:18 AM EST LABORATORY LDL Cholesterol 76 0 - 100 mg/dL 12/11/2024 12:18 AM EST LABORATORY VLDL Cholesterol 36 5 - 40 mg/dL 12/11/2024 12:18 AM EST LABORATORY LDL/HDL Ratio 1.89 12/11/2024 12:18 AM EST LABORATORY Blood Structure of left upper limb / Unknown Venipuncture / Unknown 12/10/2024 2:10 PM EST 12/10/2024 2:11 PM EST [facility] LABORATORY - 12/11/2024 12:18 AM [...] Villeda PA-C LAB BLOOD ORDERABLES Final Result LABORATORY
[address] [place] [address], * Microalbumin / Creatinine Urine Ratio - Urine, Clean Catch (07/05/2024 4:42 PM EDT) Microalbumin/C reatinine Ratio 13.4 0.0 - 29.0 mg/g 07/06/2024 12:38 AM EDT LABORATORY Creatinine, Urine 149.4 mg/dL 07/06/2024 12:38 AM EDT LABORATORY Microalbumin, Urine 2.0 mg/dL 07/06/2024 12:38 AM EDT LABORATORY Urine Urine specimen obtained by clean catch procedure / Unknown Collection / Unknown 07/05/2024 4:42 PM EDT 07/05/2024 4:42 PM EDT Bhargav Villeda PA-C URINE ORDERABLES Final Res ult LABORATORY
[address] [place] [address], [place] [phone] from Last 3 Months or Most Recently [...] Of Support Discussed With: Patient Care Teams Education Department Registrar Relationship Specialty Start Date End Date Quyen Vincent DO [facility] [place] [address] PCP - General Family Medicine 02/17/17
--- OUTSIDE RECORDS SUMMARY | 2025-08-20 09:02 | XMS_ITS | Encounter Summary ---
Author Organization [employer] ([place], [place], [place], [place]) Address [address] [place] [address] Care Team Providers Care Director Of Home Economics Name Role Phone Unavailable Primary Care Provider Unavailabl e Encounter Details Date Type Department Care Team (Late st Contact Info) Description 01/21/2020 Transcribed Document [facility] [place] Family Medicine [address] [place] [address] ProviderLora MD [address], [place] [id number] Social History Tobacco Use Types Packs/Day Years Used Date Smoking Tobacco: Never Assessed Sex and Gender Information Value Date Recorded Sex Assigned at Not on file Legal Sex Male 5:25 PM CDT Gender Identity Not on file Sexual Orientation Not on file documented as of this encounter Miscellaneous Notes * Cerner Conversion Note - Lora Mcdaniel MD - 01/21/2020 11:17 AM ELECTRON GUN ASSEMBLER Patient Education Materials Follows: Diabetes Mellitus and [...] that you work with a diet and director of food and nutrition services (dietitian) to make a meal plan that [...] provider. ??? Work with a counselor or health promotion educator to identify strategies to manage stress and any emotional and social challenges. Questions to ask a health care provider ??? Do I need to meet with a health promotion educator? Do I need to meet with a dietitian? What number can I call if I have questions? When are the best times to check my blood glucose? Where to find more information: ??? [place] Diabetes Association: diabetes.org ??? Academy of Nutrition and Dietetics: www.eatright.org ??? National Vestal of Diabetes and Digestive and Kidney Diseases (NIH): www.niddk.nih.gov Summary ??? A healthy meal plan will help you control your blood glucose and maintain a healthy lifestyle. ??? Working with a diet and director of food and nutrition services (dietitian) can help you make a meal [...] 08/10/2006 Document Revised: 06/13/2018 Document Reviewed: 12/18/2017 [employer] Interactive Patient Education ? 2019 [employer] Carbohydrate Counting for Diabetes Mellitus, Adult [...] different for every person. A diet and director of food and nutrition services (registered dietitian) can help you make a [...] foods that contain carbohydrates: ??? Rice. ??? [place]. ??? Milk. ??? Strawberries. 2. Calculate how [...] manage your diabetes. ??? A diet and director of food and nutrition services (registered dietitian) can help you make a meal plan and calculate how many carbohydrates you should have at each meal and snack. This information is not intended to replace advice given to you by your health care provider. Make sure you discuss any questions you have with your health care provider. Document Released: 11/13/2006 Document Revised: 05/23/2018 Document Reviewed: 04/26/2017 [employer] Patient Education ? 2019 [employer]. Incision and Drainage, Care After Refer [...] Follow these instructions at home: ??? Take wzwi-tau-zhenhon and prescription medicines only as told by [...] and water are not available, use hand track machine operator repairer. ? When you should remove your [...] 02/04/2013 Document Revised: 04/14/2017 Document Reviewed: 09/02/2016 [employer] Interactive Patient Education ? 2019 [employer]. Diabetes and Foot Care Diabetes may cause [...] 04/22/2014 Elsevier Interactive Patient Education ? 2017 [employer] documented in this encounter Plan of Treatment Not on file documented as of this encounter Visit Diagnoses Not on filedocumented in this encounter
--- OUTSIDE RECORDS SUMMARY | 2025-08-20 09:03 | XMS_ITS | Encounter Summary ---
Author Organization [facility] ([place], [place], [place], [place]) Address [address] [place] [address] Care Team Providers Care Gleason Gear Generator Name Role Phone Unavailable Primary Care Provider Unavailabl e Encounter Details Date Type Department Care Team (Late st Contact Info) Description 01/19/2020 Transcribed Document [facility] [place] Family Medicine [facility] [place] [address] ProviderLora MD [address], [place] [id number] Social History Tobacco Use Types Packs/Day Years Used Date Smoking Tobacco: Never Assessed Sex and Gender Information Value Date Recorded Sex Assigned at Not on file Legal Sex Male 5:25 PM CDT Gender Identity Not on file Sexual Orientation Not on file documented as of this encounter Miscellaneous Notes * Cerner Conversion Note - Lora ProviderMD - 01/19/2020 11:27 AM BILLPOSTER Patient: JONATHAN DELGADO Age: 49 years Sex: Male : 1970 Associated Diagnoses: None Author: ESTHELA SCHMITT MD-CAR Basic Information PCP: primary cardiology- Dr Sibley ([facility] for caths) Chief Complaint left foot infection History of Present Illness 49 yo male with history with CAD (PCI 2013), HTN, and DM presented to outside facility with complaints of redness of left foot, fever and chills. Pt transferred to [facility] for further evaluation and treatment. Pt [...] list: All Problems Angina / SNOMED CT 738370360 / Confirmed Coronary artery disease / SNOMED CT 9905340427 / Confirmed Diabetes mellitus type II / SNOMED CT 89559961 / Confirmed GERD - Gastro-esophageal reflux disease / SNOMED CT 0745395970 / Confirmed History of obstructive sleep apnea / IMO 69217133 / Confirmed Hyperlipidemia / SNOMED CT 77937493 / Confirmed Hypertension / SNOMED CT 08078534 / Confirmed Impaired vision in both eyes / SNOMED CT 337376129 / Confirmed Migraine / SNOMED CT 72398297 / Confirmed Prostate infection / SNOMED CT 93471507 / Confirmed Stented coronary artery / SNOMED CT 2600012131 / Confirmed, Active Problems (11) Angina Coronary [...] family history is negative. Procedure history: Stent (342859901). bilateral hernia repair. cardiac catheterization with coronary [...] (Current Encounter/Past 24 Hours) ProBNP 202 pg/mL [place] 01/18/2020 19:18 Blood Gases (Current Encounter/Past 24 Hours) No Blood Gas Results Found (Past 24 Hours) Radiology Results (Last 48 hours) [id number] -- 01/18/2020 16:50 CR Chest 2 Vws [...]
--- OUTSIDE RECORDS SUMMARY | 2025-08-20 09:03 | XMS_ITS | Encounter Summary ---
Author Organization [employer] ([place], [place], [place], [place]) Address [address] [place] [address] Care Team Providers Care Nursing Home Director Name Role Phone Unavailable Primary Care Provider Unavailabl e Encounter Details Date Type Department Care Team (Late st Contact Info) Description 01/19/2020 Transcribed Document [facility] [place] Family Medicine [address] [place] [address] ProviderLora MD [address] [place], [place] [phone] Social History Tobacco Use Types Packs/Day Years Used Date Smoking Tobacco: Never Assessed Sex and Gender Information Value Date Recorded Sex Assigned at Not on file Legal Sex Male 5:25 PM CDT Gender Identity Not on file Sexual Orientation Not on file documented as of this encounter Miscellaneous Notes * Cerner Conversion Note - Historical ProviderMD - 01/19/2020 9:00 AM CATERING DRIVER Consult Phone Call Documentation Entered On: 01/19/2020 10:28 EST Performed On: 01/19/2020 9:00 EST by Jessica Johnson [facility] Coord Phone Call for Consults Consult Phone Call/Page Attempt : Second call Consult Reason : foot cellulitis Physician Requesting Consult : CONRAD GARDNER MD-[facility] Physician Requested for Consult : TANISHA AMAYA DPM-POD Provider Service Notified Name : Podiatry Physician Covering for Consult : CHERISE HOWELL DPM-TOMMY Date and Time Call Returned : 01/19/2020 10:28 EST Jessica Johnson Care [facility] Coord - 01/19/2020 10:27 EST Electronically signed by Stefanie [facility] Conversion Lead Technical Architect Cerner at 03/17/2023 9:14 AM CDT documented in this encounter Plan of Treatment Not on file documented as of this encounter Visit Diagnoses Not on filedocumented in this encounter
--- OUTSIDE RECORDS SUMMARY | 2025-08-20 09:03 | XMS_ITS | Encounter Summary ---
Author Organization [employer] ([place], [place], [place], [place]) Address [address] [place] [address] Care Team Providers Care Financial Institution Manager Name Role Phone Unavailable Primary Care Provider Unavailabl e Encounter Details Date Type Department Care Team (Late st Contact Info) Description 01/19/2020 Transcribed Document [facility] [address] [place] [address] Paresh Bravo MD [address] [place] [address] Social History Tobacco Use Types Packs/Day [...] History of obstructive sleep apnea / IMO 45756269 / Confirmed, Active Problems (11) Angina Coronary [...] 1.10 \ Radiology Results (Last 48 hours) [id number] -- 01/18/2020 16:50 CR Chest 2 Vws [...]
--- OUTSIDE RECORDS SUMMARY | 2025-08-20 09:03 | XMS_ITS | Encounter Summary ---
Author Organization [employer] ([place], [place], [place], [place]) Address [address] [place] [address] Care Team Providers Care Rewinder Name Role Phone Unavailable Primary Care Provider Unavailabl e Encounter Details Date Type Department Care Team (Late st Contact Info) Description 01/20/2020 Transcribed Document [facility] Cardiology [address] [place] [address] [place] [address] [place] [address] [address] [place] [address] Social History Tobacco Use Types [...] None Author: JAYJAY SAMAYOA MD-CAR Basic Information Union Organiser: Dr Sibley ([facility] for caths) Subjective NAD Health Status Current medications: (Selected) Inpatient Medications Ordered Ativan: 0.5 mg, IV Push, Q4H, PRN: Agitation DAPTOmycin + Sodium Chloride 0.9% intravenous solution 50 mL: 900 mg, 18 mL, 136 mL/Hr, IV Piggyback, [id number] DAPTOmycin + Sodium Chloride 0.9% intravenous solution 50 mL: 900 mg, 18 mL, 136 mL/Hr, IV Piggyback, [id number] DuoNeb 0.5 mg-2.5 mg/3 mL inhalation solution: [...] mL: 2 Gram, 100 mL/Hr, IV Piggyback, [id number] Tylenol: 650 mg, Oral, Q4H, PRN: Other [...] of motion, Normal strength. Integumentary: Warm, Dry, [place]. Neurologic: Alert, Oriented. Psychiatric: Cooperative, Appropriate mood & affect. Results Review JAN 20 06:38 \ 13.9 / 6.5 190 / 42.9 \ Radiology Results (Last 48 hours) [id number] -- 01/19/2020 15:12 CR Chest 2 Vws [...] time Continue aspirin, statin Follow-up with primary associate creative director in 2 weeks 01/19/2020 I do not [...]
--- OUTSIDE RECORDS SUMMARY | 2025-08-20 09:03 | XMS_ITS | Encounter Summary ---
Author Organization [employer] ([place], [place], [place], [place]) Address [address] [place] [address] Care Team Providers Care Development Professional Name Role Phone Unavailable Primary Care Provider Unavailabl e Encounter Details Date Type Department Care Team (Late st Contact Info) Description 01/20/2020 Transcribed Document [facility] [place] Family Medicine [facility] [place] [address] ProviderLora MD [address] [place] [address] Social History Tobacco Use Types Packs/Day Years Used Date Smoking Tobacco: Never Assessed Sex and Gender Information Value Date Recorded Sex Assigned at Not on file Legal Sex Male 5:25 PM CDT Gender Identity Not on file Sexual Orientation Not on file documented as of this encounter Miscellaneous Notes * Cerner Conversion Note - Lora ProviderMD - 01/20/2020 12:17 PM SIGN LANGUAGE INTERPRETER Universal Grinder Set Up Operator Inpatient Document Entered On: 01/20/2020 15:26 [...]
--- OUTSIDE RECORDS SUMMARY | 2025-08-20 09:03 | XMS_ITS | Encounter Summary ---
Author Organization Healthcare Address [address] [place] [address] Care Team Providers Care Silvering Department Supervisor Name Role Phone Quyen Vincent Primary Care Provider [phone] Encounter Details Date Type Department Care Team ([facility] st Contact Info) Description 07/21/2025 Telephone [facility] [place] [address] [place] [address] Ronal Clemens MD [address] [place] [address] Social History Tobacco Use Types [...] be seen before august contact number: Other: [phone] Optimal time of day to reach caller: ANYTIME Additional comments/information from caller: None Note: Please do not reply to this message. Follow-up communication and further actions as a result of this message need to be communicated with the patient directly, if the patient is not active onMyChart. If the patient is active on MyChart, they will receive notification of the communication/outcome via [employer]. documented in this encounter Plan of Treatment Upcoming Encounters Date Type Department Care Team (Late st Contact Info) Description 09/03/2025 11:30 AM EDT Office Visit [facility] [place] [address] [place] [id number] Ronal Clemens MD [address] [place] [address] 09/23/2025 11:00 AM EDT Office Visit [facility] [address] [place] [address] Kerline Holcomb APRN [address] [place] [address] 10/14/2025 4:00 PM EST Office Visit [facility] [address] [place] [address] Martha Rodrigues MBBS [address] [place] [address] documented as of this encounter Visit Diagnoses [...] documented as of this encounter Care Teams Silvering Department Supervisor Relationship Specialty Start Date End Date Quyen Vincent DO [address] [place] [address] [place] [address] PCP - General 04/09/21 documented as of this encounter
--- OUTSIDE RECORDS SUMMARY | 2025-08-20 09:03 | XMS_ITS | Encounter Summary ---
Author Organization [employer] ([place], [place], [place], [place]) Address [address] [place] [address] Care Team Providers Care Sales Merchandise Associate Name Role Phone Unavailable Primary Care Provider Unavailabl e Encounter Details Date Type Department Care Team (Late st Contact Info) Description 01/19/[address] [facility] Family Medicine [facility] [place] [address] ProviderLora MD [address] [place] [id number] Social History Tobacco Use Types Packs/Day Years Used Date Smoking Tobacco: Never Assessed Sex and Gender Information Value Date Recorded Sex Assigned at Not on file Legal Sex Male 5:25 PM CDT Gender Identity Not on file Sexual Orientation Not on file documented as of this encounter Miscellaneous Notes * [employer] Conversion Note - Lora ProviderMD - 01/19/2020 12:32 PM WAITER/WAITRESS TAKE OUT Patient: JONATHAN DELGADO Age: 49 Years Sex: [...] Information Primary Care Physician - ADRIAN DELACRUZ DO-[facility] Attending Physician - PARSEH CARRASCO MD-[facility] Admitting Physician - PARESH CARRASCO [...] 01/18/2020 18:32 EST Electronically signed by Stefanie, [facility] Conversion Technical Services Librarian [employer] at 03/17/2023 9:22 AM CDT documented in this encounter Plan of Treatment Not on file documented as of this encounter Visit Diagnoses Not on filedocumented in this encounter
--- OUTSIDE RECORDS SUMMARY | 2025-08-20 09:03 | XMS_ITS | Encounter Summary ---
Author Organization [employer] ([place], [place], [place], [place]) Address [address] [place] [address] Care Team Providers Care Cleaning Manager Name Role Phone Unavailable Primary Care Provider Unavailabl e Encounter Details Date Type Department Care Team (Late st Contact Info) Description 01/18/2020 Transcribed Document [facility] Family Medicine [facility] [address] ProviderLora MD [address] [place] [address] Social History Tobacco Use Types Packs/Day Years Used Date Smoking Tobacco: Never Assessed Sex and Gender Information Value Date Recorded Sex Assigned at Not on file Legal Sex Male 5:25 PM CDT Gender Identity Not on file Sexual Orientation Not on file documented as of this encounter Miscellaneous Notes * [employer] Conversion Note - Lora ProviderMD - 01/18/2020 5:50 PM AIR SEALING TECHNICIAN Pain Assessment Entered On: 01/21/2020 5:08 EST [...]
--- OUTSIDE RECORDS SUMMARY | 2025-08-20 09:03 | XMS_ITS | Encounter Summary ---
Author Organization [employer] ([place], [place], [place], [place]) Address [address] [place] [address] Care Team Providers Care Instructional Systems Design Consultant Name Role Phone Unavailable Primary Care Provider Unavailabl e Encounter Details Date Type Department Care Team (Late st Contact Info) Description 01/19/2020 Transcribed Document [facility] [place] Family Medicine [address] [place] [address] ProviderLora MD [address] [place], [place] [id number] Social History Tobacco Use Types Packs/Day Years Used Date Smoking Tobacco: Never Assessed Sex and Gender Information Value Date Recorded Sex Assigned at Not on file Legal Sex Male 5:25 PM CDT Gender Identity Not on file Sexual Orientation Not on file documented as of this encounter Miscellaneous Notes * [employer] Conversion Note - Historical ProviderMD - 01/19/2020 2:00 AM BOW STAPLER Senior Analyst Developer Details Entered On: 01/19/2020 3:19 EST Performed [...] - 01/19/2020 3:19 EST Electronically signed by Cathryn Watts Conversion Operations And Maintenance Technican [employer] at 03/17/2023 9:41 AM CDT documented in this encounter Plan of Treatment Not on file documented as of this encounter Visit Diagnoses Not on filedocumented in this encounter
--- OUTSIDE RECORDS SUMMARY | 2025-08-20 09:03 | XMS_ITS | Encounter Summary ---
Author Organization [employer] ([place], [place], [place], [place]) Address [address] [place] [address] Care Team Providers Care Jigmaker Name Role Phone Unavailable Primary Care Provider Unavailabl e Encounter Details Date Type Department Care Team (Late st Contact Info) Description 01/19/2020 Transcribed Document [facility] Family Medicine [address] [place] [address] ProviderLora MD [address] [place] [address] Social History Tobacco Use Types Packs/Day Years Used Date Smoking Tobacco: Never Assessed Sex and Gender Information Value Date Recorded Sex Assigned at Not on file Legal Sex Male 5:25 PM CDT Gender Identity Not on file Sexual Orientation Not on file documented as of this encounter Miscellaneous Notes * [employer] Conversion Note - Historical ProviderMD - 01/19/2020 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
--- OUTSIDE RECORDS SUMMARY | 2025-08-20 09:03 | XMS_ITS | Clinical Summary ---
Author Organization Healthcare Address [address] [place] [address] Care Team Providers Care Cone Examiner Name Role Phone MelisaQuyen Primary Care Provider [phone] Allergies Active Allergy Reactions Criticality Noted Date [...] 4 Active ergocalciferol (Vitamin D-2) 1.25 MG (93461 UT) capsule 5 Active folic acid (Folvite) [...] Description 07/22/2025 Telephone Cardiac Imaging [address] [place] [address] Reji Reeves 07/21/2025 Telephone [facility] [address] [facility], [address] [place] [id number] Ronal Clemens MD 07/17/2025 3:24 PM EDT - 07/17/2025 9:54 PM EDT Emergency [facility] Emergency Department [address] [place] [address] Palma Mcdonald MD Syncope, unspecified syncope type (Primary Dx) Discharge Disposition: Home or Self Care 07/17/2025 Orders Only External Location [address] [place] [address] Provider, External 07/17/2025 Travel 06/17/2025 10:52 AM EDT - 06/17/2025 11:59 PM EDT Hospital Encounter [facility] Radiology [address], [address] [place] [address] Low back pain, unspecified back pain laterality, unspecified chronicity, unspecified whether sciatica present Discharge Disposition: Home or Self Care 06/17/2025 9:[address] [facility] Medicine Specialties [address] [place] [address] Aicha, Kerline REVAN Muscle weakness (Primary Dx); Frequent falls; Low back pain, unspecified back pain laterality, unspecified chronicity, unspecified whether sciatica present; Foot drop, left 06/17/2025 Travel 06/10/2025 Travel from Last 3 Months Immunizations Immunization Administration [...] Description 09/03/2025 11:30 AM EDT Office Visit [facility] [address] [facility], [address] [place] [address] Ronal Clemens MD [address] [place] [address] 09/23/2025 11:00 AM EDT Office Visit [facility] Medicine Specialties [address] [place] [address] Kerline Holcomb R, [employer] [address] [place] [address] 10/14/2025 4:00 PM EST Office Visit [place] [facility] [address] [place] [address] Martha Rodrigues, JOESPH [address] [place] [address] Health Maintenance Due Date Last Done Comments [...] 2015 UKY-Zoster Vaccines (1 of 2) 2020 EUG-DBTDT-70 Vaccine (3 - season) 2025 03/10/2021, 02/11/2021 [...] POCT glucose meter (07/17/2025 5:55 PM EDT) [facility] POCT Glucose 97 74 - 99 mg/dL [...] Comment 07/17/2025 5:57 PM EDT [facility]ALTH[facility] Glaze Supervisor ID Maribel Castelan [id number] 5:57 PM EDT HEALTHCARE LAB Device ID [id number] 07/17/2025 5:57 PM EDT HEALTHCARE LAB Specimen Type POC Capillary 07/17/2025 5:57 PM EDT [facility]ALTH[facility]ARE LAB Blood Capillary blood specimen / Unknown 07/17/2025 5:55 PM EDT 07/17/2025 5:57 PM EDT us Generic Provider Poct LAB POINT OF CARE TEST DOCKED DEVICE UNSOLICITED RESULTS Final Result [facility]ALTH[facility]ARE [facility] [address] [place] [address] * (ABNORMAL) Troponin T, High Sensitivity, 2 Hour, Plasma (07/17/2025 5:52 PM EDT) [facility] Troponin T, High Sensitivity, 2 Hour 47(H) <19 ng/L 07/17/2025 6:25 PM EDT [facility] Troponin Delta 6 <10 ng/L 07/17/2025 6:25 PM EDT [facility] Troponin Delta Interpretation Not Significant 07/17/2025 6:25 PM EDT [facility] Comment:Not Significant. No acute change in troponin observed between the baseline and 2 hour samples. Blood Venous blood specimen / Unknown Venipuncture / Unknown 07/17/2025 5:52 PM EDT 07/17/2025 5:56 PM EDT us Palma Mcdonald MD LAB BLOOD ORDERABLES Final Re sult [facility] [address] [place] [address] * XR Chest 1 View (07/17/2025 5:44 [...] ECG Atrial Rate 74 BPM MUSE ECG LA Interval 190 ms MUSE ECG QRSD Interval 88 ms MUSE ECG QT Interval 410 ms MUSE ECG QTC Interval 455 ms MUSE ECG P Reading 54 degrees MUSE ECG R Reading -26 degrees MUSE ECG T Wave Reading 57 degrees MUSE ECG Diagnosis Normal sinus rhythm MUSE ECG Diagnosis Normal ECG MUSE ECG Diagnosis MUSE ECG Diagnosis Confirmed by Mark Orosco ([id number]) on 07/17/2025 4:44:10 PM MUSE ECG 07/17/2025 4:17 PM EDT 07/17/2025 4:44 PM EDT us Palma Mcdonald MD ECG ORDERABLES Final Result MUSE ECG [...] Total DLP (Dose-Length Product): 1206.95 mGy.cm (accession [id number]), 1206.95 mGy.cm (accession [id number]). Please note: The reported value represents the [...] Multilevel degenerative endplate change and facet arthropathy. Njxc-rf-pnhruzdx multilevel spondylotic change. Included portions of the lung apices demonstrate scarring and atelectasis without acute focal consolidation. Procedure Note Jay Yao MD - 07/17/2025 CLINICAL INDICATION: fall TECHNIQUE: Axial CT images of the head were obtained without contrastadministration. CT cervical spine without intravenous contrast. Coronal and sagittalreformatted images obtained. Total DLP (Dose-Length Product): 1206.95 mGy.cm (accession [id number]),1206.95 mGy.cm (accession [id number]). Please note: The reported valuerepresents the total [...] subluxation. Multilevel degenerative endplate changeand facet arthropathy. Apiy-jq-kvxzjwqr multilevel spondylotic change. Included portions of the [...] Yao MD on 07/17/2025 4:28 PM Palma Mcdonald MD IMG CT PROCEDURES Final [...] Total DLP (Dose-Length Product): 1206.95 mGy.cm (accession [id number]), 1206.95 mGy.cm (accession [id number]). Please note: The reported value represents the [...] Multilevel degenerative endplate change and facet arthropathy. Fciw-ja-uohpyprj multilevel spondylotic change. Included portions of the lung apices demonstrate scarring and atelectasis without acute focal consolidation. Procedure Note Jay Yao MD - 07/17/2025 CLINICAL INDICATION: fall TECHNIQUE: Axial CT images of the head were obtained without contrastadministration. CT cervical spine without intravenous contrast. Coronal and sagittalreformatted images obtained. Total DLP (Dose-Length Product): 1206.95 mGy.cm (accession [id number]),1206.95 mGy.cm (accession [id number]). Please note: The reported valuerepresents the total [...] subluxation. Multilevel degenerative endplate changeand facet arthropathy. Xwpk-uu-uzsbomvt multilevel spondylotic change. Included portions of the [...] Yao MD on 07/17/2025 4:28 PM Palma Mcdonald MD IMG CT PROCEDURES Final Resul t * ED HIV 1/2 Antibody/Antigen Screen w/Reflex to HIV 1/2 Differentiation (07/17/2025 3:42 PM EDT) [facility] HIV 1 & 2 Antibody/Antigen Screen Non Reactive Non Reactive 07/17/2025 5:13 PM EDT [facility] Comment:Screening for HIV 1 & 2 antibodies, and P24 antigen is NONREACTIVE. No confirmatory testing is required. Blood Venous blood specimen / Unknown Venipuncture / Unknown 07/17/2025 3:42 PM EDT 07/17/2025 4:26 PM EDT Result Mauro Mcdonald MD LAB BLOOD ORDERABLES Final Re sult Performing Organization Address [facility] Co de Phone Number [facility] [address] [place] [address] * (ABNORMAL) Troponin now and 120 min (07/17/2025 3:42 PM EDT) [facility] Troponin T, High Sensitivity, 0 Hour 53(H) <19 ng/L 07/17/2025 4:12 PM EDT [facility] Blood Venous blood specimen / Unknown Venipuncture / Unknown 07/17/2025 3:42 PM EDT 07/17/2025 3:46 PM EDT Result Mauro Mcdonald MD LAB BLOOD ORDERABLES Final Re sult Performing Organization Address City/[facility]/ZIP Co de Phone Number [facility] [address] [place] [address] * Hepatitis C Antibody - ED (07/17/2025 3:42 PM EDT) [facility] Hepatitis C Antibody Negative Negative 07/17/2025 5:13 PM EDT [facility] Blood Venous blood specimen / Unknown Venipuncture / Unknown 07/17/2025 3:42 PM EDT 07/17/2025 4:26 PM EDT Result Mauro Mcdonald MD LAB BLOOD ORDERABLES Final Re sult [facility] [address] [place] [address] * (ABNORMAL) CBC w/diff (07/17/2025 3:42 PM EDT) Only the most recent of2 resultswithin the time period is included. WBC Count 6.35 3.70 - 10.30 10*3/uL LAB HEMATOLOGY METHOD 07/17/2025 3:49 PM EDT [facility] RBC Count 4.59(L) 4.60 - 6.10 10*6/uL LAB HEMATOLOGY METHOD 07/17/2025 3:49 PM EDT [facility] HGB 13.1(L) 13.7 - 17.5 g/dL LAB HEMATOLOGY METHOD 07/17/2025 3:49 PM EDT [facility] HCT 39.8(L) 40.0 - 51.0 % LAB HEMATOLOGY METHOD 07/17/2025 3:49 PM EDT [facility] Platelet Count 156 155 - 369 10*3/uL LAB HEMATOLOGY METHOD 07/17/2025 3:49 PM EDT [facility] MCV 87 79 - 98 fL LAB HEMATOLOGY METHOD 07/17/2025 3:49 PM EDT [facility] MCH 28.5 26.0 - 32.0 pg LAB HEMATOLOGY METHOD 07/17/2025 3:49 PM EDT [facility] MCHC 32.9 30.7 - 35.5 g/dL LAB HEMATOLOGY METHOD 07/17/2025 3:49 PM EDT [facility] RDW 13.5 11.5 - 14.5 % LAB HEMATOLOGY METHOD 07/17/2025 3:49 PM EDT [facility] MPV 9.7 8.8 - 12.5 fL LAB HEMATOLOGY METHOD 07/17/2025 3:49 PM EDT [facility] nRBC 0.0 <=0.0 per 100 WBCs LAB HEMATOLOGY METHOD 07/17/2025 3:49 PM EDT [facility] Differential Type Automated LAB HEMATOLOGY METHOD 07/17/2025 3:49 PM EDT [facility] Neutrophils % 69 % LAB HEMATOLOGY METHOD 07/17/2025 3:49 PM EDT [facility] Lymphocytes % 17 % LAB HEMATOLOGY METHOD 07/17/2025 3:49 PM EDT [facility] Monocytes % 11 % LAB HEMATOLOGY METHOD 07/17/2025 3:49 PM EDT [facility] Eosinophils % 2 % LAB HEMATOLOGY METHOD 07/17/2025 3:49 PM EDT [facility] Basophils % 1 % LAB HEMATOLOGY METHOD 07/17/2025 3:49 PM EDT [facility] Immature Granulocytes % 0 % LAB HEMATOLOGY METHOD 07/17/2025 3:49 PM EDT [facility] Neutrophils Absolute 4.40 1.60 - 6.10 10*3/uL LAB HEMATOLOGY METHOD 07/17/2025 3:49 PM EDT [facility] Lymphocytes Absolute 1.06(L) 1.20 - 3.90 10*3/uL LAB HEMATOLOGY METHOD 07/17/2025 3:49 PM EDT [facility] Monocytes Absolute 0.71 0.30 - 0.90 10*3/uL LAB HEMATOLOGY METHOD 07/17/2025 3:49 PM EDT [facility] Eosinophils Absolute 0.13 0.00 - 0.50 10*3/uL LAB HEMATOLOGY METHOD 07/17/2025 3:49 PM EDT [facility] Basophils Absolute 0.03 0.00 - 0.10 10*3/uL LAB HEMATOLOGY METHOD 07/17/2025 3:49 PM EDT [facility] Immature Granulocytes Absolute 0.02 0.00 - 0.06 10*3/uL LAB HEMATOLOGY METHOD 07/17/2025 3:49 PM EDT [facility] Blood Venous blood specimen / Unknown Venipuncture / Unknown 07/17/2025 3:42 PM EDT 07/17/2025 3:46 PM EDT Narrative [facility] - 07/17/2025 3:49 PM EDT Therapeutic decision making should be based on absolute values, rather than percentages. us Palma Mcdonald MD LAB BLOOD ORDERABLES Final Re sult [facility] [address] [place] [address] * (ABNORMAL) BMP (07/17/2025 3:42 PM EDT) Glucose, Plasma 97 74 - 99 mg/dL 07/17/2025 4:12 PM EDT [facility] BUN, Plasma 41(H) 7 - 21 mg/dL 07/17/2025 4:12 PM EDT [facility] Creatinine, Plasma 2.34(H) 0.70 - 1.20 mg/dL 07/17/2025 4:12 PM EDT [facility] BUN/Creatinine Ratio 18 07/17/2025 4:12 PM EDT [facility] Sodium, Plasma 137 136 - 145 mmol/L 07/17/2025 4:12 PM EDT [facility] Potassium, Plasma 4.3 3.6 - 4.9 mmol/L 07/17/2025 4:12 PM EDT [facility] Chloride, Plasma 100 97 - 107 mmol/L 07/17/2025 4:12 PM EDT [facility] CO2, Plasma 24 22 - 29 mmol/L 07/17/2025 4:12 PM EDT [facility] Anion Gap 13 6 - 16 mmol/L 07/17/2025 4:12 PM EDT [facility] Total Calcium, Plasma 8.9 8.9 - 10.2 mg/dL 07/17/2025 4:12 PM EDT [facility] eGFRcr 32.2 mL/min/1.7 3m*2 07/17/2025 4:12 PM EDT [facility] Comment:Reported eGFRcr in m L/min/1.73m2 is based the CKD-EPI 2020 equation that does not use a race coefficient. Blood Venous blood specimen / Unknown Venipuncture / Unknown 07/17/2025 3:42 PM EDT 07/17/2025 3:46 PM EDT us Palma Mcdonald MD LAB BLOOD ORDERABLES Final Re sult [facility] [address] [place] [address] * POC Imaging (07/17/2025) Anatomical Region Laterality [...] Bk Corey MD on 06/17/2025 11:49 AM november R Aicha [employer] IMG XR PROCEDURES Final Res ult * ANCA Vasculitis Profile (06/17/2025 10:50 AM EDT) Myeloperoxidase (MPO) Ab, IgG 0 0 - 19 AU/mL 06/19/2025 2:50 PM EDT [facility] ([facility]) Serine Proteinase 3 (PR3) Ab, IgG 0 0 - 19 AU/mL 06/19/2025 2:50 PM EDT [facility] ([facility]) ANCA IFA Titer <1:20 <1:20 06/19/2025 2:50 PM EDT [facility] ([facility]) ANCA IFA Pattern None Detected None Detected 06/19/2025 2:50 PM EDT [facility] ([facility]) Blood Venous blood specimen / Unknown Venipuncture / Unknown 06/17/2025 10:50 AM EDT 06/17/2025 10:51 AM EDT Narrative [facility] ([facility]) - 06/19/2025 2:50 PM EDT [...] collagen vascular disease or arthritis. Performed By: [facility] [address] [place] [address] [employer] Workers Supervisor: Galen Pereira MD, PhD CLIA Number: [id number] november Aicha [employer] LAB BLOOD ORDERABLES Final Result [facility]) [address] [place] [address] * DNA Isolation and Hold (HLA) (06/17/2025 10:50 AM EDT) Blood Venous blood specimen / Unknown Venipuncture / Unknown 06/17/2025 10:50 AM EDT 06/17/2025 10:51 AM EDT november R Aicha [facility] LAB MOLECULAR DIAGNOSTICS O RDERABLES Final Result [facility] [address] [place] [address], * Marshall (OMAR) Antibody, IgG (06/17/2025 10:50 AM EDT) Marshall (OMAR) Antibody, IgG 1 0 - 40 AU/mL 06/19/2025 3:00 PM EDT [facility]) Serum 06/17/2025 10:5 0 AM EDT 06/17/2025 10:51 AM EDT Narrative [facility] [employer]) - 06/19/2025 3:00 PM EDT INTERPRETIVE INFORMATION: [...] associations with SLE clinical manifestations. Performed By: [facility] [address] [place] [address] [employer] Workers Supervisor: Galen Pereira MD, PhD CLIA Number: [id number] november R Aicha [facility] REF LAB BLOOD AND FLUID ORD Final Result Performing Organization Address City/[facility]/ZIP Co de Phone Number [facility]) [address] [place] [address] * Myositis Antibody Panel (SO) (06/17/2025 10:50 AM EDT) Marshall/SUBSTATION OPERATOR AUTOMATIC (OMAR) Ab, IgG 2 0 - 19 Units 06/23/2025 7:22 PM EDT [facility]) SSA-52 (RO52) (OMAR) Antibody, IgG 2 0 - 40 AU/mL 06/23/2025 7:22 PM EDT [facility] ([facility]) Treasure-1 (Histidyl-tRNA Synthetase) Ab, IgG 1 0 - 40 AU/mL 06/23/2025 7:22 PM EDT [facility] ([facility]) PM/Scl 100 Antibody, IgG Negative Negative 06/23/2025 7:22 PM EDT [facility] ([facility]) MN-2 (NUCLEAR HELICASE PROTEIN) ANTIBODY Negative Negative 06/23/2025 7:22 PM EDT [facility] ([facility]) PL-7 (THREONYL-TRNA SYNTHETASE) ANTIBODY Negative Negative 06/23/2025 7:22 PM EDT [facility] ([facility]) PL-12 (ALANYL-TRNA SYNTHETASE) ANTIBODY Negative Negative 06/23/2025 7:22 PM EDT [facility] ([facility]) P155/140 ANTIBODY Negative Negative 06/23/2025 7:22 PM EDT [facility] ([facility]) EJ (GLYCYL-TRNA SYNTHETASE) ANTIBODY Negative Negative 06/23/2025 7:22 PM EDT [facility] ([facility]) KU ANTIBODY Negative Negative 06/23/2025 7:22 PM EDT [facility] ([facility]) SRP (SIGNAL RECOGNITION PARTICLE) AB Negative Negative 06/23/2025 7:22 PM EDT [facility] ([facility]) OJ (ISOLEUCYL-TRNA SYNTHETASE) ANTIBODY Negative Negative 06/23/2025 7:22 PM EDT [facility] ([facility]) SSA-60 (RO60) (OMAR) Antibody, IgG 0 0 - 40 AU/mL 06/23/2025 7:22 PM EDT [facility] ([facility]) Fibrillarin (U3 SUBSTATION OPERATOR AUTOMATIC) Ab, IgG Negative Negative 06/23/2025 7:22 PM EDT [facility] ([facility]) MYOSITIS PANEL INTERPRETIVE DATA See Note 06/23/2025 7:22 PM EDT [facility] ([facility]) SAE1 (SUMO ACTIVATING ENZYME) AB Negative Negative 06/23/2025 7:22 PM EDT [facility] ([facility]) MDA5 (CADM-140) AB Negative Negative 06/23/2025 7:22 PM EDT [facility] ([facility]) NXP2 (NUCLEAR MATRIX PROTEIN-2) AB Negative Negative 06/23/2025 7:22 PM EDT [facility] ([facility]) TIF-1 GAMMA (155 KDA) AB Negative Negative 06/23/2025 7:22 PM EDT [facility] ([facility]) Anti Nuc Ab Screen <1:80 <1:80 06/23/2025 7:22 PM EDT [facility] ([facility]) CHAIM INTERPRETIVE COMMENT See Note 06/23/2025 7:22 PM EDT [facility] ([facility]) Bunch (tyrosyl-tRNA synthetase) Ab Negative Negative 06/23/2025 7:22 PM EDT [facility] ([facility]) Ks (asparaginyl-tRN A synthetase) Ab Negative Negative 06/23/2025 7:22 PM EDT [facility] ([facility]) Zo (phenylalanyl-tR NA synthetase) Ab Negative Negative 06/23/2025 7:22 PM EDT [facility] ([facility]) HMGCR Antibody Screen Negative Negative 06/23/2025 7:22 PM EDT [facility] ([facility]) Blood Venous blood specimen / Unknown Venipuncture / Unknown 06/17/2025 10:50 AM EDT 06/17/2025 10:51 AM EDT Narrative [facility] ([facility]) - 06/23/2025 7:22 PM EDT [...] . . . . . . X Marshall/SUBSTATION OPERATOR AUTOMATIC (OMAR) Ab, IgG . . . . [...] . . . . X Fibrillarin (U3 SUBSTATION OPERATOR AUTOMATIC) Ab, IgG . . . . . [...] Ab . . . . X HMGCR (3-Ldahfkn-7-Methylglutaryl Coenzyme A Reductase) . . . . . . . . X This test was developed and its performance characteristics determined by [facility]. It has not been cleared or approved [...] (interstitial lung disease), Raynaud phenomenon, arthritis, and professor of mechanical engineering's hands (implicated in antisynthetase syndrome). INTERPRETIVE INFORMATION: Marshall/SUBSTATION OPERATOR AUTOMATIC (OMAR) Antibody, IgG 19 Units or Less ............. Negative 20 to 39 Units ............... Weak Positive 40 to 80 Units ............... Moderate Positive 81 Units or greater .......... Strong Positive Marshall/SUBSTATION OPERATOR AUTOMATIC antibodies are frequently seen in patients with mixed connective tissue disease (MCTD) and are also associated with other systemic autoimmune rheumatic diseases (SARDs) such as systemic lupus erythematosus (SLE), systemic sclerosis, and myositis. Antibodies targeting the Marshall/SUBSTATION OPERATOR AUTOMATIC antigenic complex also recognize Marshall antigens, therefore, [...] developed and its performance characteristics determined by [facility]. It has not been cleared or approved [...] Greater .......... Positive Interpretive Information: Fibrillarin (U3 SUBSTATION OPERATOR AUTOMATIC) Antibody, IgG The presence of fibrillarin (U3-SUBSTATION OPERATOR AUTOMATIC) IgG antibodies in association with an CHAIM [...] a multi-ethnic cohort of SSc patients (n=98), U3-SUBSTATION OPERATOR AUTOMATIC antibodies detected by immunoblot had an agreement of 98.9 percent with the gold standard immunoprecipitation (IP) assay. Approximately 71 percent (5/7) of the borderline U3-SUBSTATION OPERATOR AUTOMATIC results with CHAIM nucleolar pattern in this cohort were IP negative. This test was developed and its performance characteristics determined by [facility]. It has not been cleared or approved [...] further testing will be performed. Performed By: [facility] [address] [place] [address] Shed Workers Supervisor: Galen Pereira MD, PhD CLIA Number: [id number] November [facility] LAB BLOOD ORDERABLES Final Result Performing Organization Address City/[facility] Co de Phone Number [facility] ([facility]) [address] [place] [id number] * Creatine Kinase (CK), Total (06/17/2025 10:50 AM EDT) Creatine Kinase, Plasma 180 49 - 320 U/L 06/17/2025 12:30 PM EDT [facility] Blood Venous blood specimen / Unknown Venipuncture / Unknown 06/17/2025 10:50 AM EDT 06/17/2025 10:51 AM EDT November [facility] LAB BLOOD ORDERABLES Final Result [facility] [address] [place] [address] * HLA B27 Typing (06/17/2025 10:50 AM EDT) Blood Venous blood specimen / Unknown Venipuncture / Unknown 06/17/2025 10:50 AM EDT 06/17/2025 10:51 AM EDT november R Aicha [employer] LAB BLOOD ORDERABLES Final Result [address] * Thyroid Peroxidase Antibody (06/17/2025 10:50 AM EDT) Thyroid Peroxidase Antibody <5 <=8 IU/mL 06/17/2025 2:18 PM EDT [facility] Blood Venous blood specimen / Unknown Venipuncture / Unknown 06/17/2025 10:50 AM EDT 06/17/2025 10:51 AM EDT november R Aicha [employer] LAB BLOOD ORDERABLES Final Result Performing Organization Address City/[facility]/ZIP Co de Phone Number [facility] [address] [place] [address] * Double-Stranded DNA (dsDNA) Antibody, IgG by IFA (06/17/2025 10:50 AM EDT) Double-Strande d DNA (dsDNA) Ab IgG IFA <1:10 <1:10 06/19/2025 9:48 AM EDT [facility] Blood Venous blood specimen / Unknown Venipuncture / Unknown 06/17/2025 10:50 AM EDT 06/17/2025 10:51 AM EDT Narrative [facility]) - 06/19/2025 9:48 AM EDT INTERPRETIVE INFORMATION: [...] recommendations for testing may be found at [email or web address]. Performed By: [facility] [address] [place] [address] Shed Workers Supervisor: Galen Pereira MD, PhD CLIA Number: [id number] November R [facility] LAB BLOOD ORDERABLES Final Result Performing Organization Address [facility] Co de Phone Number [facility]) [address] [place] [address] * Aldolase (06/17/2025 10:50 AM EDT) ALDOLASE 4.2 1.2 - 7.6 U/L 06/18/2025 11:54 PM EDT [facility] ([facility]) Blood Venous blood specimen / Unknown Venipuncture / Unknown 06/17/2025 10:50 AM EDT 06/17/2025 10:51 AM EDT Narrative [facility] ([facility]) - 06/18/2025 11:54 PM EDT REFERENCE INTERVAL: Aldolase Access complete set of age- and/or gender-specific reference intervals for this test in the [facility] Test Directory ([employer]). Performed By: [facility] [address] [place] [address] Shed Workers Supervisor: Galen Pereira MD, PhD CLIA Number: [id number] November [facility]OD ORDERABLES Final Result Performing Organization Address [facility] Co de Phone Number [facility] LABORATORY [facility]) [address] [place] [address] * C3 Complement (06/17/2025 10:50 AM EDT) C3 Complement 158 84 - 166 mg/dL 06/17/2025 1:12 PM EDT [facility] Blood Venous blood specimen / Unknown Venipuncture / Unknown 06/17/2025 10:50 AM EDT 06/17/2025 10:51 AM EDT us November [facility] LAB BLOOD ORDERABLES Final Result [facility] [address] [place] [address] * C4 Complement (06/17/2025 10:50 AM EDT) C4 Complement 29 13 - 36 mg/dL 06/17/2025 1:12 PM EDT [facility] Blood Venous blood specimen / Unknown Venipuncture / Unknown 06/17/2025 10:50 AM EDT 06/17/2025 10:51 AM EDT November [facility] LAB BLOOD ORDERABLES Final Result Performing Organization Address City/[facility] Co de Phone Number [facility] [address] [place] [address] * ANTI NUCLEAR AB (06/17/2025 10:50 AM EDT) CHAIM INTERPRETIVE COMMENT See Note 06/19/2025 8:12 PM EDT [facility] ([facility]) Anti Nuc Ab Screen <1:80 <1:80 06/19/2025 8:12 PM EDT [facility] ([facility]) Blood Venous blood specimen / Unknown Venipuncture / Unknown 06/17/2025 10:50 AM EDT 06/17/2025 10:51 AM EDT Narrative [facility] ([facility]) - 06/19/2025 8:12 PM EDT Antinuclear antibodies [...] not necessarily rule out SARD. Performed By: [facility] [address] [place] [address] Shed Workers Supervisor: Galen Pereira MD, PhD CLIA Number: [id number] November [facility] LAB BLOOD ORDERABLES Final Result Performing Organization Address City/[facility]/ZIP Co de Phone Number [facility] (ELIZA) [address] [place] [phone] * (ABNORMAL) Thyroid Stimulating Hormone, Plasma (06/17/2025 10:50 AM EDT) Thyroid Stimulating Hormone, Plasma 4.29(H) 0.40 - 4.20 uIU/mL 06/17/2025 12:30 PM EDT [facility] Blood Venous blood specimen / Unknown Venipuncture / Unknown 06/17/2025 10:50 AM EDT 06/17/2025 10:51 AM EDT November [facility] LAB BLOOD ORDERABLES Final Result [facility] [address] [place] [phone] from Last 3 Months Insurance [facility] MEDICAID Care Teams Cone Examiner Relationship Specialty Start Date End Date Quyen Vincent DO [address] [place] [address] PCP - General 04/09/21
--- OUTSIDE RECORDS SUMMARY | 2025-08-20 09:03 | XMS_ITS | Encounter Summary ---
Author Organization Healthcare Address [address] [place] [address] Care Team Providers Care Vocational Guidance Counselor Name Role Phone Quyen Vincent DO Primary Care Provider [phone] Encounter Details Date Type Department Care Team ([facility] st Contact Info) Description 07/17/2025 Orders Only External Location [address] [place] [address] Provider, External Social History Tobacco Use Types [...] Indicated 07/17/2025 7:14 PM EDT Tano Weiss oe R * Question Answer Date of Assessment [...] Description 09/03/2025 11:30 AM EDT Office Visit [facility] [place] [address], [address] [place] [phone] Ronal Clemens MD [address] [place] [address] 09/23/2025 11:00 AM EDT Office Visit [facility] Medicine Specialties [address] [place] [address] Kerline Holcomb APRN [address] [place] [address] 10/14/2025 4:00 PM EST Office Visit [facility] [address] [place] [address] Martha Rodrigues MBBS [address] [place], [place] [id number] documented as of this encounter Procedures Procedure [...] documented as of this encounter Care Teams Vocational Guidance Counselor Relationship Specialty Start Date End Date Quyen Vincent DO [address] [place] [address] PCP - General 04/09/21 documented as of this encounter
--- OUTSIDE RECORDS SUMMARY | 2025-08-20 09:03 | XMS_ITS | Encounter Summary ---
Author Organization Healthcare Address [address] [place] [address] Care Team Providers Care Dry Mop Maker Name Role Phone Quyne Vincent Primary Care Provider [phone] Encounter Details Date Type Department Care Team (Late st Contact Info) Description 07/22/2025 Telephone Cardiac Imaging [address] [place] [address] [place] [address] Social History Tobacco Use Types Packs/Day Years [...] placement options. The Heart Station at the [facility] is located at [address] [facility] [address]. Monitor placement is provided on a walk in basis Monday thru Monday 8a-4p (closed holidays). Parking is located at [address] documented in this encounter Plan of Treatment Upcoming Encounters Date Type Department Care Team (Late st Contact Info) Description 09/03/2025 11:30 AM EDT Office Visit [facility] [place] [address] [facility], [address] [place] [address] Ronal Clemens MD [address] [place] [address] 09/23/2025 11:00 AM EDT Office Visit [facility] Medicine Specialties [address] [place] [address] Aicha, Kerline R, TRANSMITTER CHIEF [address] [place] [address] 10/14/2025 4:00 PM EST Office Visit [facility] [address] [place] [address] Martha Rodrigues MBBS [address] [place] [address] documented as of this encounter [...] documented as of this encounter Care Teams Dry Mop Maker Relationship Specialty Start Date End Date Quyen Vincent DO [address] [place] [address] PCP - General 04/09/21 documented as of this encounter
--- OUTSIDE RECORDS SUMMARY | 2025-08-20 09:03 | XMS_ITS | Encounter Summary ---
Author Organization [employer] ([place], [place], [place], [place]) Address [address] [place] [address] Care Team Providers Care Staff Anesthesiologist Name Role Phone Unavailable Primary Care Provider Unavailabl e Encounter Details Date Type Department Care Team (Late st Contact Info) Description 01/18/2020 Transcribed Document [facility] [facility] [address] ProviderLora MD [address] [place], [place] [id number] Social History Tobacco Use Types Packs/Day Years Used Date Smoking Tobacco: Never Assessed Sex and Gender Information Value Date Recorded Sex Assigned at Not on file Legal Sex Male 5:25 PM CDT Gender Identity Not on file Sexual Orientation Not on file documented as of this encounter Miscellaneous Notes * [employer] Conversion Note - Lora ProviderMD - 01/18/2020 9:06 PM SUPERVISOR TUMBLERS DATE OF ADMISSION: 01/18/2020 PRIMARY CARE PHYSICIAN: [...] patient has been evaluated and transferred to [facility]. The patient came in. Blood [...] will check x-ray. We will consult the fork lift technician. Start IV antibiotic. 3. Diabetes mellitus. The [...] Chart was reviewed. Time spent, 55 minutes. /[id number] MD GABY Malloy/KELLEY / GABY / LUCIO Electronically signed by Stefanie, [facility] Conversion Chief Development Officer [employer]ner at 03/17/2023 9:14 AM CDT documented in this encounter Plan of Treatment Not on file documented as of this encounter Visit Diagnoses Not on filedocumented in this encounter
--- OUTSIDE RECORDS SUMMARY | 2025-08-20 09:03 | XMS_ITS | Encounter Summary ---
Author Organization [employer] ([place], [place], [place], [place]) Address [address] [place] [address] Care Team Providers Care Menhaden Vessel Pilot Name Role Phone Unavailable Primary Care Provider Unavailabl e Encounter Details Date Type Department Care Team (Late st Contact Info) Description 01/19/2020 Transcribed Document [facility] [place] [address] [place] [address] ProviderLora MD [address] [place], [place] [address] Social History Tobacco Use Types Packs/Day Years Used Date Smoking Tobacco: Never Assessed Sex and Gender Information Value Date Recorded Sex Assigned at Not on file Legal Sex Male 5:25 PM CDT Gender Identity Not on file Sexual Orientation Not on file documented as of this encounter Miscellaneous Notes * [employer] Conversion Note - Historical ProviderMD - 01/19/2020 2:[address] SUPERVISOR Patient: JONATHAN DELGADO Age: 49 years Sex: [...] hyperlipidemia and hypertension. He originally presented to [facility] with complaints of left foot [...] that due to a disagreement with the special weapons unit officer that was on duty they requested transfer from that facility to here. Labs at outside hospital showed patient was without leukocytosis and was generally unremarkable. Cultures were obtained and patient was given 2 g IV Rocephin. He did receive a foot x-ray while at [facility] but the report did not [...] process/pending Rad: Radiology Results (Last 48 hours) [id number] -- 01/18/2020 16:50 CR Chest 2 Vws [...] the above plan care Romario Scott APRN [facility] I discussed his situation with Dr. Sevilla documented in this encounter Plan of Treatment Not on file documented as of this encounter Visit Diagnoses Not on filedocumented in this encounter
--- OUTSIDE RECORDS SUMMARY | 2025-08-20 09:03 | XMS_ITS | Encounter Summary ---
Author Organization [employer] ([place], [place], [place], [place]) Address [address] [place] [address] Care Team Providers Care Server Software Engineer Name Role Phone Unavailable Primary Care Provider Unavailabl e Encounter Details Date Type Department Care Team (Late st Contact Info) Description 01/19/2020 Transcribed Document [facility] [place] [address] [place] [address] ProviderLora MD [address] [place], [place] [id number] Social History Tobacco Use Types Packs/Day Years Used Date Smoking Tobacco: Never Assessed Sex and Gender Information Value Date Recorded Sex Assigned at Not on file Legal Sex Male 5:25 PM CDT Gender Identity Not on file Sexual Orientation Not on file documented as of this encounter Miscellaneous Notes * [employer] Conversion Note - Historical ProviderMD - 01/19/2020 9:00 AM UNIT DIRECTOR Consult Phone Call Documentation Entered On: 01/19/2020 11:27 EST Performed On: 01/19/2020 9:00 EST by Jessica Johnson [facility] Coord Phone Call for Consults Consult Phone Call/Page Attempt : First call Consult Reason : PVD/ CAD Physician Requesting Consult : CONRAD GARDNER MD-[facility] Physician Requested for Consult : RIGO KAISER MD-CAR Provider Service Notified Name : Cardiology Physician Covering for Consult : MADHU MARTIN PAC-CAT Date and Time Call Returned : 01/19/2020 11:27 EST Jessica Johnson [facility] Coord - 01/19/2020 11:26 EST Electronically signed by Stefanie [facility] Conversion Business Development Cerner at 03/17/2023 9:29 AM CDT documented in this encounter Plan of Treatment Not on file documented as of this encounter Visit Diagnoses Not on filedocumented in this encounter
--- OUTSIDE RECORDS SUMMARY | 2025-08-20 09:03 | XMS_ITS | Encounter Summary ---
Author Organization [employer] ([place], [place], [place], [place]) Address [address] [place] [address] Care Team Providers Care Ribbon Sweatband Operator Name Role Phone Unavailable Primary Care Provider Unavailabl e Encounter Details Date Type Department Care Team (Late st Contact Info) Description 01/20/2020 Transcribed Document [facility] Family Medicine [facility] [place] [address] ProviderLora MD [address] [place], [place] [address] Social History Tobacco Use Types Packs/Day Years Used Date Smoking Tobacco: Never Assessed Sex and Gender Information Value Date Recorded Sex Assigned at Not on file Legal Sex Male 5:25 PM CDT Gender Identity Not on file Sexual Orientation Not on file documented as of this encounter Miscellaneous Notes * [employer] Conversion Note - Historical ProviderMD - 01/20/2020 11:52 AM UX ENGINEER Patient: JONATHAN DELGADO Age: 49 years Sex: [...] hyperlipidemia and hypertension. He originally presented to [facility] with complaints of left foot pain. States that this pain began about Monday is when he first noticed. He has his took his foot and discovered that there was a wound on the sole of his left foot on the ball of the foot. He does not recall any trauma to the foot. Family stated that due to a disagreement with the supervisor electronic coils that was on duty they requested transfer from that facility to here. Labs at outside hospital showed patient was without leukocytosis and was generally unremarkable. Cultures were obtained and patient was given 2 g IV Rocephin. He did receive a foot x-ray while at [facility] but the report did not accopany the [...] NGSF Rad: Radiology Results (Last 48 hours) [id number] -- 01/19/2020 15:12 CR Chest 2 Vws [...] Dr. Bravo and GARRY Electronically signed by [facility], [facility] Conversion Differential Tester Cerner at 03/17/2023 9:21 AM CDT documented in this encounter Plan of Treatment Not on file documented as of this encounter Visit Diagnoses Not on filedocumented in this encounter
--- OUTSIDE RECORDS SUMMARY | 2025-08-20 09:03 | XMS_ITS | Encounter Summary ---
Author Organization [facility] Address [address] [place] [address] Care Team Providers Care Accounts Receivable Collector Name Role Phone MelisaQuyen Alycia DO Primary Care Provider [phone] Encounter Details Date Type Department Care Team [...] more drinks on one occasion? Monthly 11/29/2022 [facility] [place] of Occupat ional Health - Occupational Stress [...] 1:00 PM EST Office Visit [facility] [address] [facility] [address] [place] [phone] Jennifer Villanueva PA [address] [facility] [address] [place] [phone] Scheduled Procedures Name Priority Associated Diagnoses Date/Ti me LEFT HEART CATH w/cors Unstable angina documented as of this encounter Visit Diagnoses Not on filedocumented in this encounter Care Teams Accounts Receivable Collector Relationship Specialty Start Date End Date Quyen Vincent DO [address] [place] [address] PCP - General Family Medicine 02/17/17 documented as of this encounter
--- OUTSIDE RECORDS SUMMARY | 2025-08-20 09:03 | XMS_ITS | Encounter Summary ---
Author Organization Healthcare Address [address] [place] [address] Care Team Providers Care Bottom Bleacher Name Role Phone Quyen Vincent DO Primary [...] Description 09/03/2025 11:30 AM EDT Office Visit [facility] [place] [address] [facility], [address] [place] [address] Ronal Clemens MD [address] [place] [address] 09/23/2025 11:00 AM EDT Office Visit [facility] Medicine Specialties [address], [address] [place] [address] Kerline Holcomb, AIRWAY TRAFFIC CONTROLLER [address] [place] [address] 10/14/2025 4:00 PM EST Office Visit [facility] [address], [address] [place] [address] Martha Rodrigues MBBS [address] [place] [address] documented as of this encounter [...] documented as of this encounter Care Teams Bottom Bleacher Relationship Specialty Start Date End Date Quyen Vincent DO [address] [place] [address] PCP - General 04/09/21 documented as of this encounter
--- OUTSIDE RECORDS SUMMARY | 2025-08-20 09:03 | XMS_ITS | Encounter Summary ---
Author Organization [employer] ([place], [place], [place], [place]) Address [address] [place] [address] Care Team Providers Care Concrete Pourer Name Role Phone Unavailable Primary Care Provider Unavailabl e Encounter Details Date Type Department Care Team (Late st Contact Info) Description 01/19/2020 Transcribed Document [facility] Family Medicine [address] [place] [address] ProviderLora MD [address] [place], [place] [id number] Social History Tobacco Use Types Packs/Day Years Used Date Smoking Tobacco: Never Assessed Sex and Gender Information Value Date Recorded Sex Assigned at Not on file Legal Sex Male 5:25 PM CDT Gender Identity Not on file Sexual Orientation Not on file documented as of this encounter Miscellaneous Notes * [employer]ner Conversion Note - Historical ProviderMD - 01/19/2020 3:14 PM ASSISTANT MANAGER UM Authorization Entered On: 01/19/2020 15:19 EST Performed On: 01/19/2020 15:14 EST by HORACIO REGALADO Rn-Utilization Review Primary Insurance Authorization Authorization and Policy Numbers : Insurance 1 Health [facility] Policy Number: [id number] Authorization Number: Insurance Primary Name [facility] Policy Number: [id number] Authorization Status-Primary : Awaiting callback Reference Number-Primary : [id number] Authorized Service Begin Date-Primary : 01/18/2020 EST [...]
--- OUTSIDE RECORDS SUMMARY | 2025-08-20 09:03 | XMS_ITS | Referral Summary ---
Author Organization [employer] [facility] ([place], [place], [place], [place]) Address [address] [place] [address] Care Team Providers Care Data Communications Analyst Name Role Phone Unavailable Primary Care [...]
--- OUTSIDE RECORDS SUMMARY | 2025-08-20 09:03 | XMS_ITS | Encounter Summary ---
Author Organization [employer] ([place], [place], [place], [place]) Address [address] [place] [address] Care Team Providers Care Senior Sustainability Advisor Name Role Phone Unavailable Primary Care Provider Unavailabl e Encounter Details Date Type Department Care Team (Late st Contact Info) Description 01/18/2020 Transcribed Document [facility] [place] [facility] [place] [address] ProviderLora MD [address] [place], [place] [id number] Social History Tobacco Use Types Packs/Day Years Used Date Smoking Tobacco: Never Assessed Sex and Gender Information Value Date Recorded Sex Assigned at Not on file Legal Sex Male 5:25 PM CDT Gender Identity Not on file Sexual Orientation Not on file documented as of this encounter Miscellaneous Notes * [employer]ner Conversion Note - Lora ProviderMD - 01/18/2020 5:01 PM TRACK PATROL Admission History, Adult Entered On: 01/18/2020 17:09 [...] #2 Relationship : , Primary Language : Syriac Communication Barrier : None Martha Daigle RN [...] Scale Risk Level : 0-24 Low Risk Bracey Fall Interventions : Adequate lighting, Assistive devices [...] Source : Stated Height Entry Format : [place] Height, Feet : 6 ft(Converted to: 183 cm, 72 Inch) Height, Inches : 2 Inch(Converted to: 0 ft 2 Inch, 5.08 cm) Clinical Height : 187.96 cm Weight Source : Standing scale Weight Entry Format : [place] Clinical Dosing Weight : 107.27 kg Weight, Pounds : 236 lb Body Surface Area (BSA) : 2.33 m2 Body Mass Index : 30.4 kg/m2 (HI) Cornish Body Weight : 81 kg Martha Daigle [...] Martha Daigle RN - 01/18/2020 17:01 EST [place] Suicide Severity Rating Scale (C-SSRS) CSSRS Past [...]
== END 2025-08-20 23:59 | disposition home or self-care (01) ==
LOC: RAD 08:50
PROVIDERS: PCP Family Medicine; Visit Provider Specialist/Technologist Athletic Trainer
DX: M43.26 Fusion of spine, lumbar region (principal); M51.369 Other intervertebral disc degeneration, lumbar region without mention of lumbar back pain or lower extremity pain; M51.379 Other intervertebral disc degeneration, lumbosacral region without mention of lumbar back pain or lower extremity pain
CPT/HCPCS: 72148

== ENCOUNTER 2025-10-03 15:00 | Outpatient (RCR) | payer MEDICAID, SELFPAY | END 2025-10-03 23:59 | disposition home or self-care (01) | LOC: PT 15:00 | PROVIDERS: PCP Family Medicine; Visit Provider Orthopaedic Surgery | DX: M54.2 Cervicalgia (principal); M54.9 Dorsalgia, unspecified; M79.606 Pain in leg, unspecified | CPT/HCPCS: 97110; 97140; 97162 ==